=== PATIENT | female | born 1955 | race Caucasian/White ===

== ENCOUNTER 2016-07-15 13:26 | Observation (INO) | payer MEDICARE ==
--- NOTE | 2016-07-15 13:36 | XRAY ---
Indication: Headache. Multiple contiguous axial images obtained through the head without contrast. Comparison: February 19, 2016. Stable age-appropriate global atrophy and mild periventricular degenerative micro-ischemia bilaterally. Previous right occipital infarct has matured. No acute intracranial hemorrhage, hydrocephalus, or mass effect. Bony calvarium intact. Visualized paranasal sinuses and mastoid air cells are clear. 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 CT DI 85.96
[2016-07-15] MEDS ORDERED: Nitrostat 0.4 MG (ED) SL ONE ×2 (14:21→14:47)
[2016-07-15] MEDS ORDERED: BABY ASPIRIN 81 MG CHEW PO ONE (14:21)
--- NOTE | 2016-07-15 14:58 | XRAY ---
Indication: Dyspnea. Comparison: April 24, 2016. Portable chest remains clear again with left-sided AICD and right-sided Port-A-Cath. Heart is borderline enlarged. Vascularity normal. Bony thorax intact again with mild osteopenia, degenerative changes, and right AC widening. Impression: Borderline cardiomegaly. Negative for acute pneumonic process or CHF.
[2016-07-15 15:04] LABS: BASOPHIL % 0.4 % (0.0-0.4); Eosinophil % 1.9 % (0.00-5.0); Mean Cell Volume 79.5 fl (78-100); Mean Platelet Volume 9.3 fl (6-9.5); Monocytes % 5.7 % (0.0-12.0); Platelet Count 233 K/mm3 (150-450); Red Blood Count 4.09 M/mm3 (4.1-5.4); Red Cell Distribution Width 18.2 % (11.5-14.0); White Blood Count 8.1 K/mm3 (4.0-10.5)
[2016-07-15 15:05] LABS: Mean Corpuscular Hemoglobin 23.4 pg (26-32)
[2016-07-15 15:27] LABS: ALBUMIN 3.1 g/dL (3.4-5.0); ALKALINE PHOSPHATASE 108 U/L (46-116); ANION GAP 11.3 MEQ/L (5-15); BILIRUBIN,TOTAL 0.3 mg/dL (0.2-1.0); BLOOD UREA NITROGEN 10 mg/dL (9-20); CHLORIDE 106 mEq/L (98-107); Carbon Dioxide 25.7 mEq/L (21-32); Glucose 85 MG/DL (70-110); Potassium 4.2 mEq/L (3.5-5.1); SGOT/AST 15 U/L (15-37); SODIUM 139 mEq/L (136-145); Total Protein 6.9 gm/dL (6.4-8.2)
[2016-07-15 15:31] LABS: INR 1.03 (0.8-3.0); PROTIME 11.5 SECONDS (9.95-12.35)
[2016-07-15 15:36] LABS: SGPT/ALT 6 U/L (12-78)
--- NOTE | 2016-07-15 16:06 | ERPHSYRPT ---
- History of Present Illness Time Seen by Provider: 07/15/16 14:00 Source: patient Exam Limitations: clinical condition Patient Subjective Stated Complaint: pt brought over from x ray dept for tinling and numbness to right arm during ct scan. 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 HAS CHRONIC HEADACHE FOR 4 DAYS, DENIES BLURRED VISION, SLURRED SPEECH, FOCAL WEAKNESS IN EXTREMITIES, ANTALGIC GAIT. Timing/Duration: today Severity: moderate Character of Deficits: altered sensation Deficits: no difficulties Baseline/Normal Cognition: alert oriented x 3 Current Cognition: alert oriented x 3 Baseline Gait: walks w/o assistance Associated Symptoms: paresthesia (RIGHT ARM) Allergies/Adverse Reactions: codeine [Codeine] Allergy (Mild, Verified 07/15/16 13:59) Nausea and Vomiting Sulfa (Sulfonamide Antibiotics) [Sulfa(Sulfonamide Antibiotics)] Allergy (Mild, Verified 07/15/16 13:59) Nausea and Vomiting adhesive Allergy (Verified 07/15/16 13:59) Home Medications: Omeprazole [Prilosec] 40 mg PO DAILY 11/24/11 [History] Topiramate [Topamax] 50 mg PO BID 01/10/15 [History] Linagliptin [Tradjenta] 5 mg PO DAILY 01/11/15 [History] Carvedilol 3.125 mg [Coreg 3.125 MG] 3.125 mg PO BID 06/08/15 [History] Nitroglycerin 0.4 mg Tablet [Nitrostat 0.4 MG Tablet] 0.4 mg SL UD [History] Atorvastatin Calcium [Lipitor 20MG Tablet] 20 mg PO HS 03/20/16 [History] Clopidogrel Bisulfate 75 mg [PLAVIX 75 MG Tablet] 0.5 tab PO DAILY [History] Dabigatran Etexilate Mesylate [Pradaxa] 150 mg PO BID 03/20/16 [History] Levothyroxine Sodium 100 Mcg [Synthroid 100 Mcg] 600 mcg PO DAILY 03/20/16 [History] Morphine Sulfate [Morphine Sulfate ER] 30 mg PO HS 03/20/16 [History] Ondansetron HCl [Zofran] 4 mg PO Q4HPRN PRN 03/20/16 [History] Solifenacin Succinate [Vesicare] 10 mg PO DAILY 03/20/16 [History] Hx Tetanus, Diphtheria Vaccination/Date Given: Yes Hx Influenza Vaccination/Date Given: Yes Hx Pneumococcal Vaccination/Date Given: Yes Immunizations Up to Date: Yes - Review of Systems Constitutional: No Fever, No Chills Eyes: No Symptoms Ears, Nose, & Throat: No Symptoms Respiratory: No Symptoms, No Cough, No Dyspnea Cardiac: No Symptoms, No Chest Pain, No Edema, No Syncope Abdominal/Gastrointestinal: No Symptoms, No Abdominal Pain, No Nausea, No Vomiting, No Diarrhea Genitourinary Symptoms: No Symptoms, No Dysuria Musculoskeletal: No Symptoms, No Back Pain, No Neck Pain Skin: No Symptoms, No Rash Neurological: No Dizziness, No Focal Weakness, No Sensory Changes Psychological: No Symptoms Endocrine: No Symptoms All Other Systems: Reviewed and Negative - Past Medical History Pertinent Past Medical History: Yes Neurological History: Migraines, Stroke ENT History: No Pertinent History Cardiac History: Angina, Arrhythmia, Congenital Heart Disease, Coronary Artery Disease, Hypertension Respiratory History: No Pertinent History Endocrine Medical History: Diabetes Type II, Thyroid Cancer Musculoskeletal History: No Pertinent History GI Medical History: Hernia, Other History: No Pertinent History Psycho-Social History: No Pertinent History Female Reproductive Disorders: Endometriosis Other Medical History: THYROID CA 5 YEARS AGO; A FIB, CAROTID STENOSIS. States IBS or " part of my colon", Has illeostomy. - Past Surgical History Past Surgical History: Yes Neuro Surgical History: No Pertinent History Cardiac: Cardiac Catheterization, Internal Defibrillator, Pacemaker Respiratory: No Pertinent History Gastrointestinal: Appendectomy, Cholecystectomy, Colon Resection, Hernia Repair , Other Genitourinary: No Pertinent History Musculoskeletal: Orthopedic Surgery Female Surgical History: Hysterectomy Other Surgical History: THYROID REMOVED, 40% and 50% blockages found with last heart cath about 4 years ago. ankle surgery d/t break,ileostomy, CVL port removed and replaced, PICC line placed for CVL surgery September 2015. - Social History Smoking Status: Never smoker Exposure to second hand smoke: No Alcohol Use: None Drug Use: none Patient Lives Alone: No Significant Family History: heart disease, cancer, diabetes - Female History Hx Last Menstrual Period: post Hx Now: No - Nursing Vital Signs Nursing Vital Signs: Initial Vital Signs Temperature 97.7 F Temperature Source Oral Pulse Rate 60 Respiratory Rate 18 Blood Pressure [] 122/60 Pain Intensity 2 - [place] Coma Scale Best Eye Response ([place]): (4) open spontaneously Best Verbal Response ([place]): (5) oriented Best Motor Response ([place]): (6) obeys commands Jay[place]e Total: 15 - Physical Exam General Appearance: no apparent distress, alert Eye Exam: bilateral eye: normal inspection, PERRL, EOMI Ears, Nose, Throat Exam: normal ENT inspection, moist mucous membranes Neck Exam: normal inspection, non-tender, supple Respiratory: normal breath sounds, lungs clear, airway intact, No respiratory distress Cardiovascular: regular rate/rhythm, No edema Gastrointestinal: soft, normal bowel sounds, No tenderness, No distention Back Exam: normal inspection Extremity Exam: normal inspection, No pedal edema Peripheral Pulses: carotid (R): 2+, carotid (L): 2+, femoral (R): 2+, femoral (L ): 2+, dorsalis-pedis (R): 2+, dorsalis-pedis (L): 2+ 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, 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: normal hearing, tongue midline Coordination/Gait: normal finger to nose, normal gait Motor/Sensory: no motor deficit (HYPOESTHESIA RIGHT UPPER EXTREMITY, 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, HIP FLEXION,ANKLE DORSIFLEXION 5/5 BILATERAL) DTR: bicep (R): 2+, bicep (L): 2+, tricep (R): 2+, tricep (L): 2+, knee (R): 2+ , knee (L): 2+, ankle (R): 2+, ankle (L): 2+ Skin Exam: normal color, warm, dry, No rash SpO2 Interpretation: normal SpO2: 99 Oxygen Delivery: Room Air - Course EKG Interpreted by Me: RATE, Sinus Rhythm (VENTRICULAR PACE RHYTHM), Other ( RATE 61) - CT Exams Head CT Interpretation: Discussed w/radiologist (NONACUTE SENILE BRAIN, WITH OLD RIGHT OCCIPITAL LOBE INFARCT) Ordered Tests: Active Orders 24 hr Category Date Time Status Up Ad Fauzia TOLERATED Activity 07/15/16 16:12 Ordered Admission/Status Order ROUTINE Care 07/15/16 16:12 Ordered Code Status Order ROUTINE Care 07/15/16 16:12 Ordered EKG-ER Only STAT Care 07/15/16 14:21 Active IV Insertion STAT Care 07/15/16 14:21 Active Neuro Checks Q4H Care 07/15/16 16:12 Ordered Oxygen-ED Only NASAL CANNULA 2 lpm Care 07/15/16 14:21 Active Vital Signs Q4H Care 07/15/16 16:12 Ordered Regular Diet Diet 07/15/16 Dinner Ordered CHEST 1 VIEW (PORTABLE) Stat Exams 07/15/16 14:21 Completed HEAD WITHOUT CONTRAST [CT] Routine Exams 07/15/16 Completed CBC W DIFF Stat Lab 07/15/16 14:45 Completed CMP Stat Lab 07/15/16 14:45 Completed D-DIMER QUANTITATION Stat Lab 07/15/16 12:47 Completed PROTIME WITH INR Stat Lab 07/15/16 14:45 Completed TROPONIN Q3H Lab 07/15/16 14:45 Completed TROPONIN Q3H Lab 07/15/16 17:30 Ordered TROPONIN Q3H Lab 07/15/16 20:30 Ordered TROPONIN Q3H Lab 07/15/16 23:30 Ordered TROPONIN Q3H Lab 07/16/16 02:30 Ordered EKG DAILY RT 07/15/16 16:12 Ordered Oxygen NASAL CANNULA 2 lpm RT 07/15/16 16:12 Ordered Transfer Order Routine Transfer 07/15/16 16:12 Ordered Medication Summary Discontinued Medications Generic Name Dose Route Start Last Admin Trade Name Freq PRN Reason Stop Dose Admin Aspirin 324 mg 07/15/16 14:21 07/15/16 14:46 Baby Aspirin 81 Mg Chew PO 07/15/16 14:22 Not Given STAT ONE Nitroglycerin 0.4 mg 07/15/16 14:21 07/15/16 14:44 Nitrostat 0.4 Mg (Ed) SL 07/15/16 14:22 0.4 mg STAT ONE Administration Nitroglycerin Confirm 07/15/16 14:47 Nitrostat 0.4 Mg (Ed) Administered 07/15/16 14:48 Dose 0.4 mg SL .STK-MED ONE Lab/Rad Data: Laboratory Result Diagrams 07/15/16 14:45 07/15/16 14:45 Laboratory Results 07/15/16 07/15/16 07/15/16 Range/Units 14:45 14:45 14:45 WBC (4.0-10.5) K/mm3 RBC (4.1-5.4) M/mm3 Hgb (12.0-16.0) gm/dl Hct (35-47) % MCV (78-100) fl MCH (26-32) pg MCHC (32-36) g/dl RDW (11.5-14.0) % Plt Count (150-450) K/mm3 MPV (6-9.5) fl Gran % (36.0-66.0) % Lymphocytes % (24.0-44.0) % Monocytes % (0.0-12.0) % Eosinophils % (0.00-5.0) % Basophils % (0.0-0.4) % Basophils # (0-0.4) INR 1.03 (0.8-3.0) D-Dimer (0.00-0.49) mg/L Sodium 139 (136-145) mEq/L Potassium 4.2 (3.5-5.1) mEq/L Chloride 106 (98-107) mEq/L Carbon Dioxide 25.7 (21-32) mEq/L Anion Gap 11.3 (5-15) MEQ/L BUN 10 (9-20) mg/dL Creatinine 0.95 (0.55-1.30) mg/dl Estimated GFR > 60 ML/MIN Glucose 85 (70-110) MG/DL Calcium 8.4 L (8.5-10.1) mg/dL Total Bilirubin 0.3 (0.2-1.0) mg/dL AST 15 (15-37) U/L ALT 6 L (12-78) U/L Alkaline Phosphatase 108 (46-116) U/L Troponin I < 0.017 (0.000-0.056) ng/ml Serum Total Protein 6.9 (6.4-8.2) gm/dL Albumin 3.1 L (3.4-5.0) g/dL 07/15/16 07/15/16 Range/Units 14:45 12:47 WBC 8.1 (4.0-10.5) K/mm3 RBC 4.09 L (4.1-5.4) M/mm3 Hgb 9.6 L (12.0-16.0) gm/dl Hct 32.5 L (35-47) % MCV 79.5 (78-100) fl MCH 23.4 L (26-32) pg MCHC 29.5 L (32-36) g/dl RDW 18.2 H (11.5-14.0) % Plt Count 233 (150-450) K/mm3 MPV 9.3 (6-9.5) fl Gran % 58.0 (36.0-66.0) % Lymphocytes % 34.0 (24.0-44.0) % Monocytes % 5.7 (0.0-12.0) % Eosinophils % 1.9 (0.00-5.0) % Basophils % 0.4 (0.0-0.4) % Basophils # 0.03 (0-0.4) INR (0.8-3.0) D-Dimer 3.291 H* (0.00-0.49) mg/L Sodium (136-145) mEq/L Potassium (3.5-5.1) mEq/L Chloride (98-107) mEq/L Carbon Dioxide (21-32) mEq/L Anion Gap (5-15) MEQ/L BUN (9-20) mg/dL Creatinine (0.55-1.30) mg/dl Estimated GFR ML/MIN Glucose (70-110) MG/DL Calcium (8.5-10.1) mg/dL Total Bilirubin (0.2-1.0) mg/dL AST (15-37) U/L ALT (12-78) U/L Alkaline Phosphatase (46-116) U/L Troponin I (0.000-0.056) ng/ml Serum Total Protein (6.4-8.2) gm/dL Albumin (3.4-5.0) g/dL - Progress Progress Note: 07/15/16 16:07 PATIENT GIVEN NITROGLYCERIN 0.4MG SL, NO CHANGE IN HYPOESTHESIA. BABY ASPIRIN NOT GIVEN WHILE PATIENT ON PRADEXA Discussed with Dr.: Leal (AT 1600 FOR OBSERVATION) - Departure Time of Disposition: 16:15 Departure Disposition: Observation Clinical Impression: TRANSIENT ISCHEMIC ATTACK Condition: Stable Critical Care Time: No Referrals: CHRIS KAYE NP [Primary Care Provider] -
[2016-07-15] MEDS ORDERED: TYLENOL 325 MG PO PRN (16:12)
[2016-07-15] MEDS: Sodium Chloride 0.9% 1000 ML 1,000 ML IV SCH (17:59)
[2016-07-15] MEDS ORDERED: NovoLOG Insulin SQ PRN (20:02)
[2016-07-15] MEDS: Coreg 3.125 MG PO SCH (21:33)
[2016-07-15] MEDS: PRADAXA 75 MG PO SCH (21:33)
[2016-07-15] MEDS ORDERED: MS CONTIN 30 MG PO SCH (22:00)
--- NOTE | 2016-07-16 08:46 | PCM.HP ---
History of Present Illness - Chief Complaint Chief Complaint: headache, numbness, tingling R hand History of Present Illness: is a 61 year old female who presented to the ER yesterday with a four day history of headache, she also has developed right hand weakness and tingling. She reports there is some problems finding words as well, she feels like she can think of what she wants to say but can't get the words out. She has a history of AICD, atrial fibrillation, she was recently off of her pradaxa for more than a week for a biopsy of right breast lesion that turned out to be benign, she just resumed her pradaxa 3 days ago. - Review of Systems Constitutional: No Fever, No Chills Respiratory: No Cough, No Short Of Breath Cardiac: No Chest Pain, No Edema, No Syncope Abdominal/Gastrointestinal: No Abdominal Pain, No Nausea, No Vomiting, No Diarrhea Skin: No Rash Neurological: Focal Weakness, Headache All Other Systems: Reviewed and Negative Medications & Allergies Home Medications: Home Medication List Omeprazole [Prilosec] 40 mg PO DAILY 11/24/11 [History Confirmed 07/15/16] Linagliptin [Tradjenta] 5 mg PO DAILY 01/11/15 [History Confirmed 07/15/16] Carvedilol 3.125 mg [Coreg 3.125 MG] 3.125 mg PO BID 06/08/15 [History Confirmed 07/15/16] Nitroglycerin 0.4 mg Tablet [Nitrostat 0.4 MG Tablet] 0.4 mg SL UD [History Confirmed 07/15/16] Clopidogrel Bisulfate 75 mg [PLAVIX 75 MG Tablet] 0.5 tab PO DAILY [History Confirmed 07/15/16] Dabigatran Etexilate Mesylate [Pradaxa] 150 mg PO BID 03/20/16 [History Confirmed 07/15/16] Levothyroxine Sodium 100 Mcg [Synthroid 100 Mcg] 600 mcg PO DAILY 03/20/16 [History Confirmed 07/15/16] Morphine Sulfate [Morphine Sulfate ER] 30 mg PO BID 03/20/16 [History Confirmed 07/15/16] Solifenacin Succinate [Vesicare] 10 mg PO DAILY 03/20/16 [History Confirmed ] Atorvastatin Calcium [Lipitor 20MG Tablet] 20 mg PO DAILY 07/15/16 [History Confirmed 07/15/16] Tizanidine HCl [Zanaflex] 4 mg PO UD PRN 07/15/16 [History Confirmed 07/15/16] Allergies/Adverse Reactions: Allergies Allergy/AdvReac Type Severity Reaction Status Date / Time codeine [Codeine] Allergy Mild Nausea and Verified 07/15/16 13:59 Vomiting Sulfa (Sulfonamide Allergy Mild Nausea and Verified 07/15/16 13:59 Antibiotics) Vomiting [Sulfa(Sulfonamide Antibiotics)] adhesive Allergy Verified 07/15/16 13:59 - Past Medical History Past Medical History: Yes Neurological History: Migraines, Stroke ENT History: No Pertinent History Cardiac History: Angina, Arrhythmia, Congenital Heart Disease, Coronary Artery Disease, Hypertension Respiratory History: No Pertinent History Endocrine Medical History: Diabetes Type II, Thyroid Cancer Musculoskelatal History: No Pertinent History GI Medical History: Hernia, Other History: No Pertinent History Pyscho-Social History: No Pertinent History Reproductive Disorders: Endometriosis Comment: THYROID CA 5 YEARS AGO; A FIB, CAROTID STENOSIS. States IBS or " part of my colon", Has illeostomy. - Female History Hx Last Menstrual Period: postmenopausal Are you now?: No - Past Surgical History Past Surgical History: Yes Neuro Surgical History: No Pertinent History Cardiac History: Cardiac Catheterization, Internal Defibrillator, Pacemaker Respiratory Surgery: No Pertinent History GI Surgical History: Appendectomy, Cholecystectomy, Colon Resection, Hernia Repair, Other Genitourinary Surgical Hx: No Pertinent History Musculskeletal Surgical Hx: Orthopedic Surgery Female Surgical History: Hysterectomy Other Surgical History: THYROID REMOVED, 40% and 50% blockages found with last heart cath about 4 years ago. ankle surgery d/t break,ileostomy, CVL port removed and replaced, PICC line placed for CVL surgery September 2015. - Social History Smoking Status: Never smoker Exposure to second hand smoke: No Alcohol: None Drug Use: none Significant Family History: heart disease, cancer, diabetes - Physical Exam Vital Signs: Vital Signs - 24 hr Temp Pulse Resp BP Pulse Ox 07/16/16 07:40 97.9 F 60 18 120/76 98 07/16/16 04:00 97.4 F 80 19 119/70 91 L 07/16/16 00:00 97.9 F 60 17 110/63 96 07/15/16 20:29 96 07/15/16 20:00 97.9 F 60 17 119/65 96 07/15/16 17:18 98.4 F 61 18 136/74 98 07/15/16 16:53 98.4 F 61 16 136/74 97 07/15/16 16:35 61 16 97 07/15/16 16:19 99 07/15/16 15:13 60 18 122/60 99 07/15/16 13:48 97.7 F 60 16 146/74 99 Oxygen-Last 24 hours O2 Percentage 2 Liters = 28% General Appearance: no apparent distress, alert Neurologic Exam: alert, oriented x 3, cooperative, normal mood/affect, nml cerebellar function, nml station & gait, sensation nml, motor deficits (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 minimal drift to right arm. BLE 5/5), sensory deficit, No facial droop Eye Exam: PERRL/EOMI, eyes nml inspection Respiratory Exam: normal breath sounds, lungs clear, No respiratory distress Cardiovascular Exam: regular rate/rhythm, normal heart sounds, normal peripheral pulses Gastrointestinal/Abdomen Exam: soft, normal bowel sounds, No tenderness, No mass Extremity Exam: normal inspection, normal range of motion, pelvis stable Skin Exam: normal color, warm, dry, No rash Results - Labs Lab/Micro Results: Accuchecks Date 07/15/16 Time 22:05 Accucheck Value: 89 Accucheck Value: 127 Lab Results-Last 24 Hours 07/15/16 07/15/16 07/16/16 Range/Units 17:43 20:39 02:30 Troponin I < 0.017 < 0.017 < 0.017 (0.000-0.056) ng/ml Accuchecks Date 07/15/16 Time 22:05 Accucheck Value: 89 Accucheck Value: 127 - Radiology Impressions Radiology Exams & Impressions: Radiology Procedures Category Date Time Status CAROTID BILATERAL [US] Urgent Exams 07/16/16 08:38 Ordered ECHO W/2D AND DOPPLER [US] Routine Exams 07/16/16 08:37 Ordered - Other Procedures and Tests Respiratory Therapy 07/15/16 16:12 Oxygen NASAL CANNULA 2 lpm Assessment/Plan (1) CVA (cerebral vascular accident) Current Visit: Yes Status: Acute Assessment & Plan: patient with pacemaker unable to have MRI but clinically consistent with CVA with objective weakness and sensory deficits in right hand and expressive aphasia in light of recent holding of anticoagulation for biopsy. will check echo and carotid dopplers to f/u acute thrombus. Speech and OT consulted Code(s): I63.9 - CEREBRAL INFARCTION, UNSPECIFIED (2) Headache Current Visit: Yes Status: Acute Assessment & Plan: likely related to CVA, will treat Code(s): R51 - HEADACHE (3) Atrial fibrillation Current Visit: Yes Status: Acute Assessment & Plan: stable at this time, paced rhythm on EKG with apparent underlying a fib. will continue pradaxa at this time. Code(s): I48.91 - UNSPECIFIED ATRIAL FIBRILLATION
[2016-07-16] MEDS ORDERED: SYNTHROID 100 MCG PO SCH (10:00)
[2016-07-16] MEDS: PRADAXA 75 MG PO SCH ×2 (10:23→23:16)
[2016-07-16] MEDS: ECOTRIN 81 MG PO SCH (10:23)
[2016-07-16] MEDS: Coreg 3.125 MG PO SCH ×2 (10:24→23:17)
--- NOTE | 2016-07-16 10:27 | XRAY ---
Indication: CVA. Two-dimensional sonogram and color Doppler imaging of the carotid arteries of the neck performed. Comparison: February 22, 2016. Examination of the right carotid circulation again negative for focal plaquing, critical stenosis, or obstruction. PSV of the CCA is 61 cm/s. PSV of the ICA is 68 cm/s. ICA/CCA ratio is 1.1. Normal antegrade vertebral artery flow. Examination of the left carotid circulation also remains widely patent. PSV of the CCA is 61 cm/s. PSV of the ICA is 61 cm/s. ICA/CCA ratio is 1.0. Normal antegrade vertebral artery flow. Impression: Stable bilaterally patent carotid arteries of the neck. Velocity measurements and ratios again negative for hemodynamically significant flow-limiting stenosis.
[2016-07-16] MEDS: SUBLIMAZE 100 MCG/2 ML IV PRN ×3 (10:30→22:15)
[2016-07-16] MEDS: Protonix 40MG Tablet PO SCH (10:30)
[2016-07-16] MEDS: Zofran 4 MG/2 ML VIAL IV PRN ×3 (10:30→22:37)
[2016-07-16] MEDS: Sodium Chloride 0.9% 1000 ML 1,000 ML IV SCH (12:48)
--- NOTE | 2016-07-16 14:43 | ECHO ---
DATE OF PROCEDURE: 07/16/2016 CLINICAL INFORMATION: CVA and atrial fibrillation. The M-mode 2D, and Doppler echocardiogram including color flow Doppler shows the left ventricular systolic function is at least mildly decreased with an ejection fraction between 45 and 50%. The aortic valve opens well. There is no apical thrombus present. The left ventricle is normal in size with a dimension of 5.4 cm. The septal wall thickness is normal at 0.9 cm. The left ventricular posterior wall thickness is borderline thickened at 1.1 cm. There is mitral valve leaflet thickening. There is mild tricuspid regurgitation. There is mild to moderate pulmonary hypertension with left ventricular systolic pressure of 41 mm of [place]. There is no pericardial effusion present. The right ventricle is not well visualized. Right atrium is normal in size. The interatrial septum is intact. The pulmonic valve is not well visualized. The aortic root is normal with a dimension of 3.1 cm. There is no pericardial effusion present. IMPRESSION: 1) MILD TRICUSPID REGURGITATION WITH MILD TO MODERATE PULMONARY HYPERTENSION. 2) MILD MITRAL REGURGITATION. 3) MILD DECREASE IN LEFT VENTRICULAR SYSTOLIC FUNCTION. 4) BORDERLINE LEFT VENTRICULAR HYPERTROPHY. 5) NO APICAL THROMBUS IS PRESENT.
[2016-07-16] MEDS: ZOCOR 20MG PO SCH (23:17)
[2016-07-17] MEDS: SUBLIMAZE 100 MCG/2 ML IV PRN ×2 (02:29→06:41)
[2016-07-17 05:54] LABS: BASOPHIL % 0.4 % (0.0-0.4); Eosinophil % 2.7 % (0.00-5.0); Granulocytes % 55.9 % (36.0-66.0); Lymphocytes % 35.3 % (24.0-44.0); Mean Cell Volume 79.1 fl (78-100); Mean Platelet Volume 9.3 fl (6-9.5); Monocytes % 5.7 % (0.0-12.0); Platelet Count 238 K/mm3 (150-450); Red Blood Count 4.06 M/mm3 (4.1-5.4); Red Cell Distribution Width 18.4 % (11.5-14.0); White Blood Count 6.8 K/mm3 (4.0-10.5)
[2016-07-17 05:58] LABS: Mean Corpuscular Hemoglobin 23.8 pg (26-32)
[2016-07-17 06:04] LABS: ALBUMIN 2.8 g/dL (3.4-5.0); ALKALINE PHOSPHATASE 94 U/L (46-116); ANION GAP 12.5 MEQ/L (5-15); BILIRUBIN,TOTAL 0.3 mg/dL (0.2-1.0); BLOOD UREA NITROGEN 11 mg/dL (9-20); CHLORIDE 107 mEq/L (98-107); Carbon Dioxide 26.6 mEq/L (21-32); Cholesterol 136 mg/dL (100-200); Glucose 90 MG/DL (70-110); LDL, DIRECT 74 mg/dL (5-99); SGOT/AST 13 U/L (15-37); SODIUM 142 mEq/L (136-145); TRIGLYCERIDE 92 mg/dL (30-200); Total Protein 6.3 gm/dL (6.4-8.2)
[2016-07-17 06:33] LABS: SGPT/ALT < 6 U/L (12-78)
[2016-07-17] MEDS: Zofran 4 MG/2 ML VIAL IV PRN (06:42)
--- NOTE | 2016-07-17 08:05 | PCM.NOTE ---
Date and Time: 07/17/16 08 Subjective Assessment: patient seems to have more fluent speech today, still has some numbness in the right hand but seems improved today. c/o severe headache persisting. Objective Exam General Appearance: no apparent distress, alert Respiratory Exam: normal breath sounds, lungs clear, No respiratory distress Cardiovascular Exam: regular rate/rhythm, normal heart sounds Gastrointestinal/Abdomen Exam: soft, No tenderness, No mass Extremity Exam: normal inspection, normal range of motion OBJECTIVE DATA Vital Signs: Vital Signs - 24 hr Temp Pulse Resp BP BP Pulse Ox 07/17/16 07:47 97.6 F 62 18 112/64 99 07/17/16 07:34 62 95 07/17/16 04:36 97.9 F 74 18 97/58 97 07/17/16 02:00 100/60 07/16/16 23:56 97.9 F 60 18 103/57 96 07/16/16 20:19 94 L 07/16/16 20:00 97.8 F 66 16 96/52 94 L 07/16/16 16:00 60 18 117/69 98 07/16/16 11:19 97.6 F 62 18 125/73 97 Pain Assessment - Last Documented Pain Intensity 9 Pain Scale Used 0-10 Pain Scale Intake and Output: Intake & Output 07/14/16 07/15/16 07/16/16 07/17/16 11:59 11:59 11:59 11:59 Intake Total 1530 2595 Balance 1530 2595 Weight 90.083 kg Lab Results: Accuchecks Accucheck Value: 97 Accucheck Value: 86 Accucheck Value: 96 Lab Results-Last 24 Hours 07/16/16 07/16/16 07/17/16 Range/Units 02:55 04:00 05:33 WBC 6.8 (4.0-10.5) K/mm3 RBC 4.06 L (4.1-5.4) M/mm3 Hgb 9.7 L (12.0-16.0) gm/dl Hct 32.1 L (35-47) % MCV 79.1 (78-100) fl MCH 23.8 L (26-32) pg MCHC 30.2 L (32-36) g/dl RDW 18.4 H (11.5-14.0) % Plt Count 238 (150-450) K/mm3 MPV 9.3 (6-9.5) fl Gran % 55.9 (36.0-66.0) % Lymphocytes % 35.3 (24.0-44.0) % Monocytes % 5.7 (0.0-12.0) % Eosinophils % 2.7 (0.00-5.0) % Basophils % 0.4 (0.0-0.4) % Basophils # 0.03 (0-0.4) Sodium (136-145) mEq/L Potassium (3.5-5.1) mEq/L Chloride (98-107) mEq/L Carbon Dioxide (21-32) mEq/L Anion Gap (5-15) MEQ/L BUN (9-20) mg/dL Creatinine (0.55-1.30) mg/dl Estimated GFR ML/MIN Glucose (70-110) MG/DL Hemoglobin A1c 5.2 (4.5-6.2) Calcium (8.5-10.1) mg/dL Total Bilirubin (0.2-1.0) mg/dL AST (15-37) U/L ALT (12-78) U/L Alkaline Phosphatase (46-116) U/L Serum Total Protein (6.4-8.2) gm/dL Albumin (3.4-5.0) g/dL Triglycerides (30-200) mg/dL Cholesterol (100-200) mg/dL LDL Cholesterol (5-99) mg/dL HDL Cholesterol (35-60) mg/dL Heart Disease Risk Ratio Free T4 0.94 (0.76-1.46) ng/dl TSH 3rd Generation 25.627 H (0.358-3.740) mIU/L 07/17/16 Range/Units 05:33 WBC (4.0-10.5) K/mm3 RBC (4.1-5.4) M/mm3 Hgb (12.0-16.0) gm/dl Hct (35-47) % MCV (78-100) fl MCH (26-32) pg MCHC (32-36) g/dl RDW (11.5-14.0) % Plt Count (150-450) K/mm3 MPV (6-9.5) fl Gran % (36.0-66.0) % Lymphocytes % (24.0-44.0) % Monocytes % (0.0-12.0) % Eosinophils % (0.00-5.0) % Basophils % (0.0-0.4) % Basophils # (0-0.4) Sodium 142 (136-145) mEq/L Potassium 4.0 (3.5-5.1) mEq/L Chloride 107 (98-107) mEq/L Carbon Dioxide 26.6 (21-32) mEq/L Anion Gap 12.5 (5-15) MEQ/L BUN 11 (9-20) mg/dL Creatinine 0.96 (0.55-1.30) mg/dl Estimated GFR > 60 ML/MIN Glucose 90 (70-110) MG/DL Hemoglobin A1c (4.5-6.2) Calcium 8.3 L (8.5-10.1) mg/dL Total Bilirubin 0.3 (0.2-1.0) mg/dL AST 13 L (15-37) U/L ALT < 6 L (12-78) U/L Alkaline Phosphatase 94 (46-116) U/L Serum Total Protein 6.3 L (6.4-8.2) gm/dL Albumin 2.8 L (3.4-5.0) g/dL Triglycerides 92 (30-200) mg/dL Cholesterol 136 (100-200) mg/dL LDL Cholesterol 74 (5-99) mg/dL HDL Cholesterol 58 (35-60) mg/dL Heart Disease Risk Ratio 2.3 Free T4 (0.76-1.46) ng/dl TSH 3rd Generation (0.358-3.740) mIU/L Radiology Exams: Radiology Procedures Category Date Time Status CAROTID BILATERAL [US] Urgent Exams 07/16/16 08:38 Completed ECHO W/2D AND DOPPLER [US] Routine Exams 07/16/16 08:37 Draft Assessment/Plan (1) CVA (cerebral vascular accident) Current Visit: Yes Status: Acute Assessment & Plan: improvement in symptoms, added aspirin yesterday. Code(s): I63.9 - CEREBRAL INFARCTION, UNSPECIFIED (2) Headache Current Visit: Yes Status: Acute Assessment & Plan: change to morphine, has significant nausea. will try phenergan today. if can get headache under good control could likely discharge soon with outpatient OT/ ST Code(s): R51 - HEADACHE (3) Atrial fibrillation Current Visit: Yes Status: Acute Assessment & Plan: on pradaxa, no thrombus seen on echo Code(s): I48.91 - UNSPECIFIED ATRIAL FIBRILLATION
[2016-07-17] MEDS: Sodium Chloride 0.9% 1000 ML 1,000 ML IV SCH (08:54)
[2016-07-17] MEDS ORDERED: NON-FORMULARY ITEM (Omeprazole [Prilosec] 40 MG) PO SCH (10:00)
[2016-07-17] MEDS ORDERED: NON-FORMULARY ITEM (Atorvastatin Calcium 20 MG) PO SCH (10:00)
[2016-07-17] MEDS: SYNTHROID 100 MCG PO SCH (10:15)
[2016-07-17] MEDS: Coreg 3.125 MG PO SCH ×2 (10:16→21:52)
[2016-07-17] MEDS: Protonix 40MG Tablet PO SCH (10:16)
[2016-07-17] MEDS: ECOTRIN 81 MG PO SCH (10:16)
[2016-07-17] MEDS: PRADAXA 75 MG PO SCH ×2 (10:16→21:52)
[2016-07-17] MEDS: Phenergan 25 MG INJ IV PRN ×2 (10:20→18:38)
[2016-07-17] MEDS: MORPHINE SULFATE 10 MG/ML IV PRN ×2 (10:20→18:35)
[2016-07-17] MEDS: ZOCOR 20MG PO SCH (21:52)
[2016-07-18] MEDS: MORPHINE SULFATE 10 MG/ML IV PRN ×2 (00:53→06:01)
[2016-07-18] MEDS: Phenergan 25 MG INJ IV PRN (00:53)
[2016-07-18] MEDS: Sodium Chloride 0.9% 1000 ML 1,000 ML IV SCH (04:57)
--- NOTE | 2016-07-18 07:31 | PCM.DS ---
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 on pradaxa for a fib but had been off for recent procedure. symptoms were mild and have improved during stay, patient is able to function and safe to return to home. - Vitals & Intake/Output Vital Signs: Vital Signs Temperature 97.9 F 07/18/16 07:25 Pulse Rate 61 07/18/16 07:25 Respiratory Rate 17 07/18/16 07:25 Blood Pressure 113/65 07/18/16 07:25 O2 Sat by Pulse Oximetry 97 07/18/16 07:25 Oxygen-Last Documented O2 Percentage 2 Liters = 28% Intake & Output: Intake & Output 07/15/16 07/16/16 07/17/16 07/18/16 11:59 11:59 11:59 11:59 Intake Total 1530 2975 3960 Balance 1530 2975 3960 Weight 90.083 kg - Lab Result Diagrams: 07/17/16 05:33 07/17/16 05:33 Lab Results-Last 24 Hrs: Accuchecks Date 07/17/16 Time 21:00 Accucheck Value: 129 Accucheck Value: 92 Accucheck Value: 93 Accucheck Value: 93 Micro Results-Entire Visit: Accuchecks Date 07/17/16 Time 21:00 Accucheck Value: 129 Accucheck Value: 92 Accucheck Value: 93 Accucheck Value: 93 - Radiology Exams Ordered Rad Exams-Entire Visit: Radiology Procedures Category Date Time Status CAROTID BILATERAL [US] Urgent Exams 07/16/16 08:38 Completed ECHO W/2D AND DOPPLER [US] Routine Exams 07/16/16 08:37 Draft - Procedures and Test Procedures and Tests throughout Hospitalization: Therapy Orders & Screens 07/15/16 16:12 Oxygen NASAL CANNULA 2 lpm Comment: 07/15/16 22:43 EKG DAILY Comment: 07/16/16 08:38 Speech Therapy Eval & Treat [ Evsimona & Tessa ( Order)] .as ordered Comment: Physician Instructions: Reason For Exam: Evaluate: Yes Treat: Yes Reason for Eval: CVA, mild expressive aphasia Diagnosis: headache, numbness, tingling R hand 07/16/16 08:39 PT Eval & Treat ( Order) ROUTINE Evaluate: Yes Treat: Yes Reason for Eval:: needs OT for right hand weakness, numbness Diagnosis: headache, numbness, tingling R hand Discharge Exam General Appearance: no apparent distress, alert Neurologic Exam: other (strength right hand 3/5, left 4/5. speech is fluent, CN II-XII intact) Respiratory Exam: normal breath sounds, lungs clear, No respiratory distress Cardiovascular Exam: regular rate/rhythm, normal heart sounds Gastrointestinal/Abdomen Exam: soft, No tenderness, No mass Extremity Exam: normal inspection, normal range of motion Final Diagnosis/Problem List - Final Discharge Diagnosis/Problem (1) CVA (cerebral vascular accident) Current Visit: Yes Status: Acute (2) Headache Current Visit: Yes Status: Acute (3) Atrial fibrillation Current Visit: Yes Status: Acute - Discharge Disposition: Home, Self-Care Condition: Stable Prescriptions: Continue Omeprazole [Prilosec] 40 mg PO DAILY Linagliptin [Tradjenta] 5 mg PO DAILY Carvedilol 3.125 mg [Coreg 3.125 MG] 3.125 mg PO BID Nitroglycerin 0.4 mg Tablet [Nitrostat 0.4 MG Tablet] 0.4 mg SL UD Dabigatran Etexilate Mesylate [Pradaxa] 150 mg PO BID Clopidogrel Bisulfate 75 mg [PLAVIX 75 MG Tablet] 0.5 tab PO DAILY Levothyroxine Sodium 100 Mcg [Synthroid 100 Mcg] 600 mcg PO DAILY Solifenacin Succinate [Vesicare] 10 mg PO DAILY Morphine Sulfate [Morphine Sulfate ER] 30 mg PO BID Atorvastatin Calcium [Lipitor 20MG Tablet] 20 mg PO DAILY Tizanidine HCl [Zanaflex] 4 mg PO UD PRN PRN Reason: crampng Follow up with: CHRIS KAYE NP [Primary Care Provider] - Forms: Patient Portal Information
[2016-07-18] MEDS: PRADAXA 75 MG PO SCH (07:55)
[2016-07-18] MEDS: ECOTRIN 81 MG PO SCH (07:55)
[2016-07-18] MEDS: Protonix 40MG Tablet PO SCH (07:55)
[2016-07-18] MEDS: SYNTHROID 100 MCG PO SCH (07:55)
[2016-07-18] MEDS: Coreg 3.125 MG PO SCH (07:55)
[2016-07-18 08:09] VITALS: BP 113/65; PULSE 61; O2SAT 97
--- NOTE | 2016-07-22 14:19 | CONS ---
CONSULT DATE: 07/22/2016 This patient was seen for Dr. Xavi Nowak who is workers compensation consultant for our group today. HISTORY: A 61 year-old female who came in with some nausea, vomiting since yesterday. She had permanent ileostomy per Dr. Bayron Wilkinson in [place] from a laparotomy five to ten months ago. She reports said this is a permanent ileostomy. She had prior subtotal colectomy in the past. Otherwise she had decreased ostomy output yesterday, passing some gas and liquid stool out the ostomy today. She was admitted. They did some films that showed gas filled bowel loops and air fluid levels. The radiologist questioned obstruction. PAST MEDICAL HISTORY: There is a questionable history of Crohn's in the past. She had blood tests although she has not had any bowel resected yet she said is confirmed as Crohn's. She has heart disease, rhythm problems, and arrhythmia. She had transient ischemic attack in the past. Diabetes mellitus type 2, thyroid cancer in the past. Atrial fibrillation in the past. PAST SURGICAL HISTORY: Cardiac cath. Defibrillator/pacemaker placed. Appendectomy and cholecystectomy. She had subtotal colectomy in the past. Hernia repair in the past. Orthopedic surgery, hysterectomy, thyroid surgery. She had ankle fracture in the past. She had port placed in the past. Again, Dr. Bayron Wilkinson of [place] did her surgery in the past nine or ten months what she said is a permanent ileostomy. MEDICATIONS: Prilosec, Tradjenta, Coreg, Nitrostat PRN, Plavix and Pradaxa, Synthroid, morphine sulfate, VESIcare, Lipitor, Xanax. ALLERGIES: CODEINE, SULFA. FAMILY HISTORY: Heart disease, cancer, diabetes. SOCIAL HISTORY: No smoking or alcohol abuse. REVIEW OF SYSTEMS: Ten systems reviewed per admission assessment pertinent for as noted above, multiple medical problems. She also had migraines and history of transient ischemic attack, mini-stroke in the past. Other systems negative or noncontributory as noted above per preadmission assessment. PHYSICAL EXAMINATION: She is afebrile 97.9F, pulse 60, blood pressure 120/76 earlier. Paper is on the chart. GENERAL: A chronically ill female. HEENT: Sclera nonicteric. NECK: No JVD. CHEST: Equal excursion, nonlabored breathing. CVS: Regular rate. ABDOMEN: Very soft, obese. No rebound. No guarding. No peritoneal signs. She has got ileostomy right upper quadrant. It should be noted there is gas in the bag and some liquidy stool which is new from decreased output yesterday, according to the patient. EXTREMITIES: No significant edema. NEURO: She is alert and seems to be oriented, answering questions appropriately. She is wearing glasses. LAB DATA AND TESTS: Liver function tests are okay. Amylase 24 and lipase 131. White blood cell count after vomiting was 13,000, hemoglobin 10.8, PLT 293,000. IMPRESSION: History of nausea and vomiting. It could be anything from partial obstruction given a complicated surgery in the past as well as surgical history most recently by Dr. Wilkinson in [place] as well as other differential could include ileus, gastroenteritis or viral syndrome. Either way her abdomen is quite soft. No rebound. No peritoneal signs. She has got gas and some liquidy coming through her ileostomy at this point. Therefore I do not feel she needs any emergent surgical intervention. I do not feel she is completely obstructed at this point. I do feel she will benefit from bowel rest, IV hydration, NG decompression, had problems placing the NG in the emergency room. Will consult radiologist see if he can place at this facility under sedation. Either way no emergent surgery is necessary. Continue bowel rest, NG decompression, IV hydration. She understands she is at moderate risk given her multiple surgeries in the past, the potential for short bowel syndrome particularly if she has any true history of Crohn's disease. She is a higher risk patient but at this time does not need surgery. Continue medical conservative management, bowel rest, NG decompression, IV hydration. Again this patient was seen for Dr. Xavi Nowak who was workers compensation consultant for our group today. I will follow with you.
== END 2016-07-18 10:40 | disposition home health service (06) ==
LOC: EDSTATUS 13:26 → ED 13:26 → MED SURG 16:46
PROVIDERS: ADMIT Family Medicine; ATTEND Family Medicine
DX: I63.9 Cerebral infarction, unspecified (principal); R51 Headache; I48.91 Unspecified atrial fibrillation; Z79.01 Long term (current) use of anticoagulants; Z79.899 Other long term (current) drug therapy; I51.9 Heart disease, unspecified; I25.10 Atherosclerotic heart disease of native coronary artery without angina pectoris; I10 Essential (primary) hypertension; E11.9 Type 2 diabetes mellitus without complications; Z85.850 Personal history of malignant neoplasm of thyroid; N80.9 Endometriosis, unspecified; Z95.810 Presence of automatic (implantable) cardiac defibrillator
CPT/HCPCS: 36000; 36415; 70450; 71010; 80053; 80061; 82962; 83036; 83721; 84439; 84443; 84484; 85025; 85379; 85610; 93005; 93268; 93306; 93880; 94760; 99285; G0378; J1642; J2270; J2405; J2550; J3010

== ENCOUNTER 2016-07-22 09:37 | Inpatient (IN) | payer MEDICARE ==
[2016-07-22] MEDS ORDERED: Reglan 10 MG/2 ML IV ONE (10:00)
[2016-07-22] MEDS ORDERED: Sodium Chloride 0.9% 1000 ML 1,000 ML IV SCH (10:00)
[2016-07-22] MEDS ORDERED: Zofran 4 MG/2 ML VIAL IV ONE (10:00)
--- NOTE | 2016-07-22 10:06 | ERPHSYRPT ---
- History of Present Illness Time Seen by Provider: 07/22/16 09:39 Historian: patient Exam Limitations: no limitations Patient Subjective Stated Complaint: PT REPORTS N/V BEGINNING YESTERDAY-STATES SHE HASN'T KEPT ANYTHING DOWN ALL NIGHT-ABD PAIN BEGAN BEFORE THE VOMITING- DENIES FEVER Triage Nursing Assessment: PT A & O X 3-RESP EASY ET NONLABORED-ABD NONTENDER TO PALP-PT AMBULATORTY TO ED ROOM WITHOUT DIFFICLUTLY Physician History: abdominal pain with N&V x 12 hours; no blood; has ileostomy; yellow liquid; retruned from [place] to [employer] 2 weeks ago; no fever; some symptoms; pain around colostomy; no trauma; no one else sick Timing/Duration: today (worse), yesterday (onset; ), gradual onset Activities at Onset: none Quality: cramping, sharpness Abdominal Pain Onset Location: RLQ Pain Radiation: no radiation Severity of Pain-Max: severe Severity of Pain-Current: moderate Modifying Factors: Improves With: nothing Associated Symptoms: loss of appetite, nausea, vomiting Previous symptoms: no prior history Allergies/Adverse Reactions: codeine [Codeine] Allergy (Mild, Verified 07/22/16 10:06) Nausea and Vomiting Sulfa (Sulfonamide Antibiotics) [Sulfa(Sulfonamide Antibiotics)] Allergy (Mild, Verified 07/22/16 10:06) Nausea and Vomiting adhesive Allergy (Verified 07/22/16 10:06) Home Medications: Omeprazole [Prilosec] 40 mg PO DAILY 11/24/11 [History] Linagliptin [Tradjenta] 5 mg PO DAILY 01/11/15 [History] Carvedilol 3.125 mg [Coreg 3.125 MG] 3.125 mg PO BID 06/08/15 [History] Nitroglycerin 0.4 mg Tablet [Nitrostat 0.4 MG Tablet] 0.4 mg SL UD [History] Clopidogrel Bisulfate 75 mg [PLAVIX 75 MG Tablet] 0.5 tab PO DAILY [History] Dabigatran Etexilate Mesylate [Pradaxa] 150 mg PO BID 03/20/16 [History] Levothyroxine Sodium 100 Mcg [Synthroid 100 Mcg] 600 mcg PO DAILY 03/20/16 [History] Morphine Sulfate [Morphine Sulfate ER] 30 mg PO BID 03/20/16 [History] Solifenacin Succinate [Vesicare] 10 mg PO DAILY 03/20/16 [History] Atorvastatin Calcium [Lipitor 20MG Tablet] 20 mg PO DAILY 07/15/16 [History] Tizanidine HCl [Zanaflex] 4 mg PO UD PRN 07/15/16 [History] Hx Tetanus, Diphtheria Vaccination/Date Given: Yes Hx Influenza Vaccination/Date Given: Yes Hx Pneumococcal Vaccination/Date Given: Yes Immunizations Up to Date: Yes - Review of Systems Constitutional: No Symptoms Eyes: No Symptoms Ears, Nose, & Throat: No Symptoms Respiratory: No Cough, No Dyspnea, No Wheezing Cardiac: No Chest Pain, No Palpitations, No Orthopnea Abdominal/Gastrointestinal: Abdominal Pain, Nausea, Vomiting, Other (chronic liquid stools with ileostomy), No Diarrhea, No Constipation Genitourinary Symptoms: Frequency, No Dysuria, No Hematuria, No Incontinence, No Flank Pain, No Vaginal Bleeding Musculoskeletal: Back Pain, No Neck Pain, No Fall, No Injury Skin: No Symptoms Neurological: Other (sp TIA memory changes), No Dizziness, No Focal Weakness, No Headache Psychological: No Symptoms Endocrine: No Symptoms Hematologic/Lymphatic: No Symptoms Immunological/Allergic: No Symptoms - Past Medical History Pertinent Past Medical History: Yes Neurological History: Migraines, Stroke ENT History: No Pertinent History Cardiac History: Angina, Arrhythmia, Congenital Heart Disease, Coronary Artery Disease, Hypertension Respiratory History: No Pertinent History Endocrine Medical History: Diabetes Type II, Thyroid Cancer Musculoskeletal History: No Pertinent History GI Medical History: Hernia, Other History: No Pertinent History Psycho-Social History: No Pertinent History Female Reproductive Disorders: Endometriosis Other Medical History: THYROID CA 5 YEARS AGO; A FIB, CAROTID STENOSIS. States IBS or " part of my colon", Has illeostomy. - Past Surgical History Past Surgical History: Yes Neuro Surgical History: No Pertinent History Cardiac: Cardiac Catheterization, Internal Defibrillator, Pacemaker Respiratory: No Pertinent History Gastrointestinal: Appendectomy, Cholecystectomy, Colon Resection, Hernia Repair , Other Genitourinary: No Pertinent History Musculoskeletal: Orthopedic Surgery Female Surgical History: Hysterectomy Other Surgical History: THYROID REMOVED, 40% and 50% blockages found with last heart cath about 4 years ago. ankle surgery d/t break,ileostomy, CVL port removed and replaced, PICC line placed for CVL surgery September 2015. - Social History Smoking Status: Never smoker Exposure to second hand smoke: No Alcohol Use: None Drug Use: none Patient Lives Alone: No Significant Family History: heart disease, cancer, diabetes - Female History Hx Now: No - Nursing Vital Signs Nursing Vital Signs: Initial Vital Signs Temperature 98.9 F Temperature Source Oral Pulse Rate 70 Respiratory Rate 20 Blood Pressure [] 135/56 Pain Intensity 10 - Physical Exam General Appearance: moderate distress, alert, obese Eye Exam: PERRL/EOMI, eyes nml inspection, No photophobia Ears, Nose, Throat Exam: normal ENT inspection, TMs normal, pharynx normal, moist mucous membranes Neck Exam: normal inspection, non-tender, supple, full range of motion, No mass , No JVD Respiratory Exam: normal breath sounds, lungs clear, airway intact, No chest tenderness, No respiratory distress Cardiovascular Exam: regular rate/rhythm, normal heart sounds, normal peripheral pulses, capillary refill 2-3 sec, No murmur Gastrointestinal/Abdomen Exam: soft, normal bowel sounds, tenderness (RLQ around ileostomy; functioning ok' ), No distention, No guarding, No rebound, No organomegaly Pelvic Exam: deferred Rectal Exam: deferred Back Exam: normal inspection, normal range of motion, No CVA tenderness Extremity Exam: normal inspection, normal range of motion, No melissa's sign, No pedal edema Neurologic Exam: alert, oriented x 3, cooperative, epoxy specialist II-XII nml as tested, normal mood/affect, nml station & gait, sensation nml Skin Exam: normal color, warm, dry, No rash, No petechiae SpO2 Interpretation: normal SpO2: 97 Oxygen Delivery: Room Air - Course Nursing assessment & vital signs reviewed: Yes - Radiology Exams Abdomen X-ray Interpretation: Reviewed by , Teleradiologist Report (new SBO), Other ( multiple air fluid levels with no free air; suspect SBO) Chest X-ray Interpretation: Reviewed by , Teleradiologist Report, Infiltrates ( right base) Ordered Tests: Active Orders 24 hr Category Date Time Status Gastric Tube Insertion STAT Care 07/22/16 11:05 Active IV Insertion STAT Care 07/22/16 10:00 Active NPO (ED) STAT Care 07/22/16 10:00 Active Re-Check Vital Signs STAT Care 07/22/16 10:00 Active OBSTR/ACUTE ABDOMEN SERIES Stat Exams 07/22/16 10:01 Completed AMYLASE Stat Lab 07/22/16 10:00 Completed CBC W DIFF Stat Lab 07/22/16 10:00 Completed CMP Stat Lab 07/22/16 10:00 Completed LIPASE Stat Lab 07/22/16 10:00 Completed Lactic Acid Urgent Lab 07/22/16 10:10 Completed Manual Differential NC Stat Lab 07/22/16 10:00 Completed Occult Blood,Stool Other Stat Lab 07/22/16 10:40 Completed UA W/ MICROSCOPIC Stat Lab 07/22/16 10:40 Completed Transfer Order Routine Transfer 07/22/16 11:36 Ordered Medication Summary Generic Name Dose Route Start Last Admin Trade Name Freq PRN Reason Stop Dose Admin Sodium Chloride 1,000 mls @ 100 mls/hr 07/22/16 10:00 07/22/16 10:30 Sodium Chloride 0.9% 1000 Ml IV 08/21/16 09:59 100 mls/hr .Q10H JUSTIN Administration Discontinued Medications Generic Name Dose Route Start Last Admin Trade Name Freq PRN Reason Stop Dose Admin Hydromorphone HCl 1 mg 07/22/16 11:06 07/22/16 11:21 Hydromorphone 1 Mg/Ml Ampule IV 07/22/16 11:07 1 mg STAT ONE Administration Hydromorphone HCl Confirm 07/22/16 11:19 Hydromorphone 1 Mg/Ml Ampule Administered 07/22/16 11:20 Dose 1 mg .ROUTE .STK-MED ONE Sodium Chloride Confirm 07/22/16 10:25 Sodium Chloride 0.9% 1000 Ml Administered 07/22/16 10:26 Dose 1,000 mls @ ud .ROUTE .STK-MED ONE Sodium Chloride 500 mls @ 999 mls/hr 07/22/16 11:07 07/22/16 11:21 Sodium Chloride 0.9% 1000 Ml IV 07/22/16 11:37 999 mls/hr .Q31M STA Administration Metoclopramide HCl 10 mg 07/22/16 10:00 07/22/16 10:30 Reglan 10 Mg/2 Ml IV 07/22/16 10:01 10 mg STAT ONE Administration Metoclopramide HCl Confirm 07/22/16 10:25 Reglan 10 Mg/2 Ml Administered 07/22/16 10:26 Dose 10 mg .ROUTE .STK-[facility] ONE Ondansetron HCl 4 mg 07/22/16 10:00 07/22/16 10:30 Zofran 4 Mg/2 Ml Vial IV 07/22/16 10:01 4 mg STAT ONE Administration Ondansetron HCl Confirm 07/22/16 10:25 Zofran 4 Mg/2 Ml Vial Administered 07/22/16 10:26 Dose 4 mg .ROUTE .[facility] ONE Lab/Rad Data: Laboratory Result Diagrams 07/22/16 10:00 07/22/16 10:00 Laboratory Results 07/22/16 07/22/16 07/22/16 Range/Units 10:40 10:40 10:10 WBC (4.0-10.5) K/mm3 RBC (4.1-5.4) M/mm3 Hgb (12.0-16.0) gm/dl Hct (35-47) % MCV (78-100) fl MCH (26-32) pg MCHC (32-36) g/dl RDW (11.5-14.0) % Plt Count (150-450) K/mm3 MPV (6-9.5) fl Segmented Neutrophils (36.0-66.0) % Band Neutrophils (0.0-2.0) % Lymphocytes (Manual) (24-44) % Monocytes (Manual) (0.0-12.0) % Differential Comment Platelet Estimate (NORMAL) Hypochromasia Anisocytosis Sodium (136-145) mEq/L Potassium (3.5-5.1) mEq/L Chloride (98-107) mEq/L Carbon Dioxide (21-32) mEq/L Anion Gap (5-15) MEQ/L BUN (9-20) mg/dL Creatinine (0.55-1.30) mg/dl Estimated GFR ML/MIN Glucose (70-110) MG/DL Lactic Acid 3.0 H (0.4-2.0) Calcium (8.5-10.1) mg/dL Total Bilirubin (0.2-1.0) mg/dL AST (15-37) U/L ALT (12-78) U/L Alkaline Phosphatase (46-116) U/L Serum Total Protein (6.4-8.2) gm/dL Albumin (3.4-5.0) g/dL Amylase (25-115) U/L Lipase (73-393) U/L Ur Collection Type CCMS Urine Color DARK YELLOW (YELLOW) Urine Appearance CLEAR (CLEAR) Urine pH 5.5 (5-6) Ur Specific [place] >=1.030 (1.005-1.025) Urine Protein 100 (Negative) Urine Glucose (UA) NEGATIVE (NEGATIVE) mg/dL Urine Ketones SMALL-15 (NEGATIVE) Urine Nitrite NEGATIVE (NEGATIVE) Urine Bilirubin MODERATE (NEGATIVE) Urine Urobilinogen 0.2 (0-1) mg/dL Urine WBC (Auto) NEGATIVE (NEGATIVE) Urine RBC (Auto) NEGATIVE (0-5) Hemal/ul Urine Microscopic RBC 0-2 (0-2) /HPF Urine Microscopic WBC 2-5 (0-5) /HPF Ur Epithelial Cells FEW (FEW) /HPF Urine Bacteria FEW (NEGATIVE) /HPF Stool Occult Blood POSITIVE (Negative) Specimen Received 07/22 1045 07/22/16 07/22/16 Range/Units 10:00 10:00 WBC 13.5 H (4.0-10.5) K/mm3 RBC 4.58 (4.1-5.4) M/mm3 Hgb 10.8 L (12.0-16.0) gm/dl Hct 36.1 (35-47) % MCV 78.8 (78-100) fl MCH 23.5 L (26-32) pg MCHC 29.9 L (32-36) g/dl RDW 19.1 H (11.5-14.0) % Plt Count 293 (150-450) K/mm3 MPV 9.8 H (6-9.5) fl Segmented Neutrophils 70 H (36.0-66.0) % Band Neutrophils 10 H (0.0-2.0) % Lymphocytes (Manual) 12 L (24-44) % Monocytes (Manual) 8 (0.0-12.0) % Differential Comment ABNORMAL Platelet Estimate NORMAL (NORMAL) Hypochromasia 1+ Anisocytosis 1+ Sodium 142 (136-145) mEq/L Potassium 4.4 (3.5-5.1) mEq/L Chloride 104 (98-107) mEq/L Carbon Dioxide 25.0 (21-32) mEq/L Anion Gap 17.5 H (5-15) MEQ/L BUN 21 H (9-20) mg/dL Creatinine 1.46 H (0.55-1.30) mg/dl Estimated GFR 39 ML/MIN Glucose 122 H (70-110) MG/DL Lactic Acid (0.4-2.0) Calcium 9.0 (8.5-10.1) mg/dL Total Bilirubin 1.0 (0.2-1.0) mg/dL AST 34 (15-37) U/L ALT 8 L (12-78) U/L Alkaline Phosphatase 94 (46-116) U/L Serum Total Protein 7.8 (6.4-8.2) gm/dL Albumin 3.4 (3.4-5.0) g/dL Amylase 24 L (25-115) U/L Lipase 131 (73-393) U/L Ur Collection Type Urine Color (YELLOW) Urine Appearance (CLEAR) Urine pH (5-6) Ur Specific Broad [place] (1.005-1.025) Urine Protein (Negative) Urine Glucose (UA) (NEGATIVE) mg/dL Urine Ketones (NEGATIVE) Urine Nitrite (NEGATIVE) Urine Bilirubin (NEGATIVE) Urine Urobilinogen (0-1) mg/dL Urine WBC (Auto) (NEGATIVE) Urine RBC (Auto) (0-5) Hemal/ul Urine Microscopic RBC (0-2) /HPF Urine Microscopic WBC (0-5) /HPF Ur Epithelial Cells (FEW) /HPF Urine Bacteria (NEGATIVE) /HPF Stool Occult Blood (Negative) Specimen Received - Progress Progress: re-examined (aftyer meds and xr) Progress Note: 07/22/16 10:10 will give IV fluids and meds; labs and xr pending; will recheck after xr and meds 07/22/16 11:04 slight relief; no change in exam; elevated WBC and Lactate; xr mutiple air fluid levels supect SBO; will anchor N/G and give meds and consult LMD 07/22/16 11:21 07/22/16 11:24 Dr Irizarry consulted and will admit and get a surgical consult; patient notified Discussed with : Elvis (consulted and will admit) Will see patient in: hospital (full admit) Counseled pt/family regarding: lab results, diagnosis, need for follow-up, rad results - Departure Time of Disposition: 11:24 Departure Disposition: In-patient Admission Clinical Impression: Small bowel obstruction Condition: Serious Critical Care Time: No Referrals: CHRIS KAYE NP [Primary Care Provider] - HARRY IRIZARRY MD [ACTIVE STAFF] -
[2016-07-22] MEDS ORDERED: Sodium Chloride 0.9% 1000 ML 1,000 ML ONE (10:25)
[2016-07-22] MEDS ORDERED: Reglan 10 MG/2 ML ONE (10:25)
[2016-07-22] MEDS ORDERED: Zofran 4 MG/2 ML VIAL ONE (10:25)
[2016-07-22 10:28] LABS: Mean Cell Volume 78.8 fl (78-100); Mean Platelet Volume 9.8 fl (6-9.5); Platelet Count 293 K/mm3 (150-450); Red Blood Count 4.58 M/mm3 (4.1-5.4); Red Cell Distribution Width 19.1 % (11.5-14.0); White Blood Count 13.5 K/mm3 (4.0-10.5)
[2016-07-22 10:35] LABS: Mean Corpuscular Hemoglobin 23.5 pg (26-32)
[2016-07-22 10:51] LABS: ALBUMIN 3.4 g/dL (3.4-5.0); ANION GAP 17.5 MEQ/L (5-15); Potassium 4.4 mEq/L (3.5-5.1); Total Protein 7.8 gm/dL (6.4-8.2)
[2016-07-22] MEDS ORDERED: Hydromorphone 1 mg/ml Ampule IV ONE (11:06)
[2016-07-22 11:07] LABS: Collection Type CCMS
--- NOTE | 2016-07-22 11:07 | XRAY ---
Indication: Abdominal pain, nausea, and vomiting. Comparison: Chest radiograph July 15, 2016 and abdomen radiograph April 11, 2016. 2 views of the abdomen again demonstrates numerous scattered surgical clips with new abnormal air distended small bowel loops with asynchronous fluid leveling and paucity of distal colonic bowel gas favoring distal small bowel obstruction. No free air. Solid organs unremarkable. Interval L3/L4 kyphoplasty. Single frontal chest remains slightly underinflated with new right base infiltrate/atelectasis and left mid lower lung interstitial opacity. Heart is not enlarged and again demonstrates left-sided AICD and right-sided Port-A-Cath. Impression: 1. New distal small bowel obstruction. 2. New right lung base infiltrate/atelectasis and left lung interstitial opacities.
[2016-07-22 11:08] LABS: Ph 5.5 (5-6)
[2016-07-22 11:09] LABS: Bacteria FEW /HPF (NEGATIVE); COMPLETE URINE MICROSCOPIC? YES; Epithelial Cells FEW /HPF (FEW)
[2016-07-22 11:09] LABS: BAND 10 % (0.0-2.0); Total Cells Counted 100
[2016-07-22 11:10] LABS: ANISOCYTOSIS 1+; Hypochromia 1+; Platelet Estimate NORMAL (NORMAL)
[2016-07-22] MEDS ORDERED: Hydromorphone 1 mg/ml Ampule ONE (11:19)
[2016-07-22] MEDS ORDERED: Phenergan 25 MG INJ IM PRN (12:26)
[2016-07-22] MEDS: Sodium Chloride 0.9% 1000 ML 1,000 ML IV SCH (15:35)
[2016-07-22] MEDS: DILAUDID 1 MG/1ML PCA IV PRN (16:24)
[2016-07-22] MEDS: Coreg 3.125 MG PO SCH (16:49)
--- NOTE | 2016-07-22 16:58 | PCM.HP ---
History of Present Illness - Chief Complaint Chief Complaint: acute abdominal pain with SBO History of Present Illness: is a 61 year old female who presented to the ER today with persistent nausea and vomiting for 2 days, she has been unable to keep anything down. She has a history of ileostomy performed in [place] last year. she reports this is a permanent ileostomy. She had decreased output that was liquid in her ostomy. - Review of Systems Constitutional: No Fever, No Chills Abdominal/Gastrointestinal: Nausea, Vomiting, No Abdominal Pain, No Diarrhea, No Constipation, No Hematochezia, No Melena Genitourinary Symptoms: No Dysuria Skin: No Rash All Other Systems: Reviewed and Negative Medications & Allergies Home Medications: Home Medication List Omeprazole [Prilosec] 40 mg PO DAILY 11/24/11 [History Confirmed 07/22/16] Linagliptin [Tradjenta] 5 mg PO DAILY 01/11/15 [History Confirmed 07/22/16] Carvedilol 3.125 mg [Coreg 3.125 MG] 3.125 mg PO BID 06/08/15 [History Confirmed 07/22/16] Nitroglycerin 0.4 mg Tablet [Nitrostat 0.4 MG Tablet] 0.4 mg SL UD PRN [History Confirmed 07/22/16] Clopidogrel Bisulfate 75 mg [PLAVIX 75 MG Tablet] 0.5 tab PO DAILY [History Confirmed 07/22/16] Dabigatran Etexilate Mesylate [Pradaxa] 150 mg PO BID 03/20/16 [History Confirmed 07/22/16] Levothyroxine Sodium 100 Mcg [Synthroid 100 Mcg] 600 mcg PO DAILY 03/20/16 [History Confirmed 07/22/16] Morphine Sulfate [Morphine Sulfate ER] 30 mg PO BIDPRN PRN 03/20/16 [History Confirmed 07/22/16] Solifenacin Succinate [Vesicare] 10 mg PO DAILY 03/20/16 [History Confirmed 11/02] Allergies/Adverse Reactions: Allergies Allergy/AdvReac Type Severity Reaction Status Date / Time codeine [Codeine] Allergy Mild Nausea and Verified 07/22/16 10:06 Vomiting Sulfa (Sulfonamide Allergy Mild Nausea and Verified 07/22/16 10:06 Antibiotics) Vomiting [Sulfa(Sulfonamide Antibiotics)] adhesive Allergy Verified 07/22/16 10:06 - Past Medical History Past Medical History: Yes Neurological History: Migraines, Stroke ENT History: No Pertinent History Cardiac History: Angina, Arrhythmia, Congenital Heart Disease, Coronary Artery Disease, Hypertension Respiratory History: No Pertinent History Endocrine Medical History: Diabetes Type II, Thyroid Cancer Musculoskelatal History: No Pertinent History GI Medical History: Hernia, Other History: No Pertinent History Pyscho-Social History: No Pertinent History Reproductive Disorders: Endometriosis Comment: THYROID CA 5 YEARS AGO; A FIB, CAROTID STENOSIS. States IBS or " part of my colon", Has illeostomy. - Female History Are you now?: No - Past Surgical History Past Surgical History: Yes Neuro Surgical History: No Pertinent History Cardiac History: Cardiac Catheterization, Internal Defibrillator, Pacemaker Respiratory Surgery: No Pertinent History GI Surgical History: Appendectomy, Cholecystectomy, Colon Resection, Hernia Repair, Other Genitourinary Surgical Hx: No Pertinent History Musculskeletal Surgical Hx: Orthopedic Surgery Female Surgical History: Hysterectomy Other Surgical History: THYROID REMOVED, 40% and 50% blockages found with last heart cath about 4 years ago. ankle surgery d/t break,ileostomy, CVL port removed and replaced, PICC line placed for CVL surgery September 2015. - Social History Smoking Status: Never smoker Exposure to second hand smoke: No Alcohol: None Drug Use: none Significant Family History: heart disease, cancer, diabetes - Physical Exam Vital Signs: Vital Signs - 24 hr Temp Pulse Resp BP Pulse Ox 07/22/16 16:46 95 07/22/16 16:24 92 L 07/22/16 11:42 97 07/22/16 10:50 98.1 F 62 16 110/55 95 07/22/16 10:30 70 07/22/16 10:23 88 20 97 07/22/16 09:44 98.9 F 66 22 135/56 97 General Appearance: mild distress, alert Ears, Nose, Throat Exam: normal ENT inspection, TMs normal, pharynx normal, moist mucous membranes Respiratory Exam: normal breath sounds, lungs clear, No respiratory distress Cardiovascular Exam: regular rate/rhythm, normal heart sounds, normal peripheral pulses Gastrointestinal/Abdomen Exam: soft, No normal bowel sounds (decreased bowel sounds), No tenderness, No distention, No mass, No guarding, No rebound Extremity Exam: normal inspection, normal range of motion, pelvis stable Skin Exam: normal color, warm, dry, No rash Results - Radiology Impressions Radiology Exams & Impressions: Radiology Procedures Category Date Time Status ABDOMEN 2 VIEW Routine Exams 07/23/16 08:00 Ordered - Other Procedures and Tests Respiratory Therapy 07/22/16 16:46 Oxygen NASAL CANNULA 2 lpm Assessment/Plan (1) Small bowel obstruction Current Visit: Yes Status: Acute Assessment & Plan: keep NPO, NG ordered but patient has refused. 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 will follow, appreciate surgery input greatly Code(s): K56.69 - OTHER INTESTINAL OBSTRUCTION (2) Atrial fibrillation Current Visit: No Status: Chronic Code(s): I48.91 - UNSPECIFIED ATRIAL FIBRILLATION (3) CHF (congestive heart failure) Current Visit: No Status: Chronic Code(s): I50.9 - HEART FAILURE, UNSPECIFIED
[2016-07-22] MEDS: Zofran 4 MG/2 ML VIAL IV PRN (20:32)
[2016-07-22] MEDS: ENOXAPARIN SODIUM SQ SCH (22:42)
[2016-07-23] MEDS: Sodium Chloride 0.9% 1000 ML 1,000 ML IV SCH ×3 (00:32→21:23)
[2016-07-23] MEDS: Zofran 4 MG/2 ML VIAL IV PRN ×4 (00:32→21:37)
[2016-07-23 05:50] LABS: BASOPHIL % 0.3 % (0.0-0.4); Eosinophil % 0.4 % (0.00-5.0); Granulocytes % 71.7 % (36.0-66.0); Mean Cell Volume 79.2 fl (78-100); Mean Platelet Volume 9.5 fl (6-9.5); Monocytes % 11.6 % (0.0-12.0); Platelet Count 232 K/mm3 (150-450); Red Blood Count 3.89 M/mm3 (4.1-5.4); White Blood Count 7.1 K/mm3 (4.0-10.5)
[2016-07-23] MEDS: DILAUDID 1 MG/1ML PCA IV PRN (05:51)
[2016-07-23 05:52] LABS: Mean Corpuscular Hemoglobin 23.6 pg (26-32)
[2016-07-23 06:02] LABS: ANION GAP 12.2 MEQ/L (5-15); Carbon Dioxide 28.5 mEq/L (21-32); Potassium 3.8 mEq/L (3.5-5.1)
[2016-07-23] MEDS: Coreg 3.125 MG PO SCH ×3 (08:01→17:33)
--- NOTE | 2016-07-23 08:50 | PCM.NOTE ---
Date and Time: 07/23/16 0847 Subjective Assessment: patient reports nausea persists, no help with zofran. pain is controlled Objective Exam General Appearance: no apparent distress, alert Respiratory Exam: normal breath sounds, lungs clear, No respiratory distress Cardiovascular Exam: regular rate/rhythm, normal heart sounds Gastrointestinal/Abdomen Exam: soft, No normal bowel sounds, No tenderness, No mass, No guarding, No rebound Extremity Exam: normal inspection, normal range of motion OBJECTIVE DATA Vital Signs: Vital Signs - 24 hr Temp Pulse Resp BP Pulse Ox 07/23/16 07:32 98.7 F 62 17 111/60 93 L 07/23/16 05:51 94 L 07/23/16 04:00 98.4 F 60 18 108/55 94 L 07/23/16 00:00 98.4 F 63 19 128/54 93 L 07/22/16 20:35 92 L 07/22/16 20:24 94 L 07/22/16 19:28 99.2 F 64 18 100/59 94 L 07/22/16 16:46 95 07/22/16 16:24 92 L 07/22/16 16:00 99.3 F 65 18 85/54 90 L 07/22/16 11:42 97 07/22/16 10:50 98.1 F 62 16 110/55 95 07/22/16 10:30 70 07/22/16 10:23 88 20 97 07/22/16 09:44 98.9 F 66 22 135/56 97 Oxygen-Last 24 hours O2 Percentage 2 Liters = 28% O2 Percentage 2 Liters = 28% Pain Assessment - Last Documented Pain Intensity 6 Pain Scale Used 0-10 Pain Scale Intake and Output: Intake & Output 07/20/16 07/21/16 07/22/16 07/23/16 11:59 11:59 11:59 11:59 Intake Total 1240 Output Total 550 Balance 690 Weight 89.358 kg Lab Results: Accuchecks Date 07/23/16 Date 07/23/16 Date 07/22/16 Date 07/22/16 Time 04:00 Time 00:00 Time 22:00 Time 16:30 Accucheck Value: 95 Accucheck Value: 97 Accucheck Value: 110 Accucheck Value: 105 Lab Results-Last 24 Hours 07/23/16 07/23/16 Range/Units 05:30 05:30 WBC 7.1 (4.0-10.5) K/mm3 RBC 3.89 L (4.1-5.4) M/mm3 Hgb 9.2 L (12.0-16.0) gm/dl Hct 30.8 L (35-47) % MCV 79.2 (78-100) fl MCH 23.6 L (26-32) pg MCHC 29.9 L (32-36) g/dl RDW 19.0 H (11.5-14.0) % Plt Count 232 (150-450) K/mm3 MPV 9.5 (6-9.5) fl Gran % 71.7 H (36.0-66.0) % Lymphocytes % 16.0 L (24.0-44.0) % Monocytes % 11.6 (0.0-12.0) % Eosinophils % 0.4 (0.00-5.0) % Basophils % 0.3 (0.0-0.4) % Basophils # 0.02 (0-0.4) Sodium 144 (136-145) mEq/L Potassium 3.8 (3.5-5.1) mEq/L Chloride 107 (98-107) mEq/L Carbon Dioxide 28.5 (21-32) mEq/L Anion Gap 12.2 (5-15) MEQ/L BUN 20 (9-20) mg/dL Creatinine 1.02 (0.55-1.30) mg/dl Estimated GFR 59 ML/MIN Glucose 96 (70-110) MG/DL Calcium 8.0 L (8.5-10.1) mg/dL Radiology Exams: Radiology Procedures Category Date Time Status ABDOMEN 2 VIEW Routine Exams 07/23/16 08:00 Taken Assessment/Plan (1) Small bowel obstruction Current Visit: Yes Status: Acute Assessment & Plan: keep NPO, patient refuses NG tube and apparently unable to place in radiology Code(s): K56.69 - OTHER INTESTINAL OBSTRUCTION (2) Atrial fibrillation Current Visit: No Status: Chronic Assessment & Plan: patient on lovenox 80mg sq q12 hrs, place on telemetry Code(s): I48.91 - UNSPECIFIED ATRIAL FIBRILLATION (3) CHF (congestive heart failure) Current Visit: No Status: Chronic Code(s): I50.9 - HEART FAILURE, UNSPECIFIED
--- NOTE | 2016-07-23 09:02 | XRAY ---
Indication: Follow-up small bowel obstruction. Comparison: One day earlier. 2 views of the abdomen again demonstrates air distended small bowel loops less than before with again asynchronous fluid leveling and paucity of colonic bowel gas favoring small bowel obstruction. Remaining abdomen and osseous structures unchanged. Also stable right lung base infiltrate/atelectasis.
[2016-07-23] MEDS: Phenergan 25 MG INJ IV PRN ×3 (09:08→23:16)
[2016-07-23] MEDS ORDERED: SYNTHROID 100 MCG PO SCH (10:00)
[2016-07-23] MEDS ORDERED: MEDICATION INTERVENTION MC SCH ×2 (10:00)
[2016-07-23] MEDS: SYNTHROID 100 MCG PO SCH (11:41)
[2016-07-23] MEDS: PROTONIX 40 MG IV IV SCH (11:42)
[2016-07-23] MEDS: ENOXAPARIN SODIUM SQ SCH ×2 (11:42→21:24)
[2016-07-24] MEDS: Zofran 4 MG/2 ML VIAL IV PRN ×4 (02:25→23:59)
[2016-07-24 05:59] LABS: BASOPHIL % 0.3 % (0.0-0.4); Eosinophil % 1.6 % (0.00-5.0); Granulocytes % 60.8 % (36.0-66.0); Lymphocytes % 28.6 % (24.0-44.0); Mean Cell Volume 79.7 fl (78-100); Mean Platelet Volume 9.5 fl (6-9.5); Monocytes % 8.7 % (0.0-12.0); Platelet Count 238 K/mm3 (150-450); Red Blood Count 3.85 M/mm3 (4.1-5.4); Red Cell Distribution Width 18.9 % (11.5-14.0); White Blood Count 5.7 K/mm3 (4.0-10.5)
[2016-07-24 06:01] LABS: Mean Corpuscular Hemoglobin 23.8 pg (26-32)
[2016-07-24 06:39] LABS: ALBUMIN 2.6 g/dL (3.4-5.0); ALKALINE PHOSPHATASE 73 U/L (46-116); ANION GAP 13.1 MEQ/L (5-15); BILIRUBIN,TOTAL 0.6 mg/dL (0.2-1.0); BLOOD UREA NITROGEN 12 mg/dL (9-20); CHLORIDE 106 mEq/L (98-107); Carbon Dioxide 24.4 mEq/L (21-32); Glucose 72 MG/DL (70-110); Potassium 3.6 mEq/L (3.5-5.1); SGOT/AST 23 U/L (15-37); SGPT/ALT 10 U/L (12-78); SODIUM 140 mEq/L (136-145); Total Protein 6.3 gm/dL (6.4-8.2)
[2016-07-24] MEDS: Sodium Chloride 0.9% 1000 ML 1,000 ML IV SCH (07:17)
[2016-07-24] MEDS: Phenergan 25 MG INJ IV PRN ×3 (07:22→19:55)
[2016-07-24] MEDS: Coreg 3.125 MG PO SCH ×2 (08:03→16:55)
--- NOTE | 2016-07-24 08:41 | PCM.NOTE ---
Date and Time: 07/24/16 0839 Subjective Assessment: patient still has significant nausea, no vomiting overnight. still c/o epigastric pain. continues to have liquid stool in ostomy Objective Exam General Appearance: no apparent distress, alert Respiratory Exam: normal breath sounds, lungs clear, No respiratory distress Cardiovascular Exam: regular rate/rhythm Gastrointestinal/Abdomen Exam: soft, other (liquid stool in ostomy), No normal bowel sounds, No tenderness Extremity Exam: normal inspection, normal range of motion OBJECTIVE DATA Vital Signs: Vital Signs - 24 hr Temp Pulse Resp BP Pulse Ox 07/24/16 08:00 98.3 F 63 17 128/74 97 07/24/16 07:16 94 L 07/24/16 04:00 97.7 F 63 14 131/70 95 07/24/16 00:00 97.0 F 84 16 108/66 94 L 07/23/16 23:30 84 16 94 L 07/23/16 20:00 97.8 F 62 16 110/58 95 07/23/16 16:00 99.1 F 63 17 114/57 93 L 07/23/16 12:00 98.2 F 67 18 132/62 99 Oxygen-Last 24 hours O2 Percentage 3 Liters = 32% O2 Percentage 2 Liters = 28% O2 Percentage 2 Liters = 28% Pain Assessment - Last Documented Pain Intensity 4 Pain Scale Used 0-10 Pain Scale Intake and Output: Intake & Output 07/21/16 07/22/16 07/23/16 07/24/16 11:59 11:59 11:59 11:59 Intake Total 1240 2911 Output Total 550 950 Balance 690 1961 Weight 89.358 kg Lab Results: Accuchecks Date 07/24/16 Date 07/23/16 Date 07/23/16 Date 07/23/16 Time 02:00 Time 21:40 Time 16:30 Time 11:56 Accucheck Value: 74 Accucheck Value: 85 Accucheck Value: 83 Accucheck Value: 77 Lab Results-Last 24 Hours 07/24/16 07/24/16 Range/Units 04:00 05:30 WBC 5.7 (4.0-10.5) K/mm3 RBC 3.85 L (4.1-5.4) M/mm3 Hgb 9.2 L (12.0-16.0) gm/dl Hct 30.7 L (35-47) % MCV 79.7 (78-100) fl MCH 23.8 L (26-32) pg MCHC 30.0 L (32-36) g/dl RDW 18.9 H (11.5-14.0) % Plt Count 238 (150-450) K/mm3 MPV 9.5 (6-9.5) fl Gran % 60.8 (36.0-66.0) % Lymphocytes % 28.6 (24.0-44.0) % Monocytes % 8.7 (0.0-12.0) % Eosinophils % 1.6 (0.00-5.0) % Basophils % 0.3 (0.0-0.4) % Basophils # 0.02 (0-0.4) Sodium 140 (136-145) mEq/L Potassium 3.6 (3.5-5.1) mEq/L Chloride 106 (98-107) mEq/L Carbon Dioxide 24.4 (21-32) mEq/L Anion Gap 13.1 (5-15) MEQ/L BUN 12 (9-20) mg/dL Creatinine 0.81 (0.55-1.30) mg/dl Estimated GFR > 60 ML/MIN Glucose 72 (70-110) MG/DL Calcium 8.1 L (8.5-10.1) mg/dL Total Bilirubin 0.6 (0.2-1.0) mg/dL AST 23 (15-37) U/L ALT 10 L (12-78) U/L Alkaline Phosphatase 73 (46-116) U/L Serum Total Protein 6.3 L (6.4-8.2) gm/dL Albumin 2.6 L (3.4-5.0) g/dL Radiology Exams: Radiology Procedures Category Date Time Status ABDOMEN 2 VIEW Routine Exams 07/23/16 08:00 Completed Assessment/Plan (1) Small bowel obstruction Current Visit: Yes Status: Acute Assessment & Plan: continue current management, repeat abdominal series to follow since has stool in ostomy Code(s): K56.69 - OTHER INTESTINAL OBSTRUCTION (2) Atrial fibrillation Current Visit: No Status: Chronic Code(s): I48.91 - UNSPECIFIED ATRIAL FIBRILLATION (3) CHF (congestive heart failure) Current Visit: No Status: Chronic Code(s): I50.9 - HEART FAILURE, UNSPECIFIED
[2016-07-24] MEDS: ENOXAPARIN SODIUM SQ SCH ×2 (09:27→21:54)
[2016-07-24] MEDS: PROTONIX 40 MG IV IV SCH (09:28)
[2016-07-24] MEDS: SYNTHROID 100 MCG PO SCH (09:48)
[2016-07-24] MEDS: Dextrose 5%/Water IV Soln. 1000 ML 1,000 ML IV SCH (13:39)
[2016-07-24] MEDS: DILAUDID 1 MG/1ML PCA IV PRN (17:17)
[2016-07-25] MEDS: Dextrose 5%/Water IV Soln. 1000 ML 1,000 ML IV SCH (00:02)
[2016-07-25] MEDS: Phenergan 25 MG INJ IV PRN ×3 (03:22→17:47)
[2016-07-25 05:47] LABS: BASOPHIL % 0.4 % (0.0-0.4); Eosinophil % 1.3 % (0.00-5.0); Granulocytes % 62.3 % (36.0-66.0); Lymphocytes % 26.3 % (24.0-44.0); Mean Cell Volume 78.9 fl (78-100); Mean Platelet Volume 9.6 fl (6-9.5); Monocytes % 9.7 % (0.0-12.0); Platelet Count 245 K/mm3 (150-450); Red Blood Count 4.03 M/mm3 (4.1-5.4); Red Cell Distribution Width 18.5 % (11.5-14.0); White Blood Count 5.4 K/mm3 (4.0-10.5)
[2016-07-25 05:53] LABS: Mean Corpuscular Hemoglobin 23.5 pg (26-32)
[2016-07-25 05:55] LABS: ALBUMIN 2.8 g/dL (3.4-5.0); ALKALINE PHOSPHATASE 80 U/L (46-116); ANION GAP 12.7 MEQ/L (5-15); BILIRUBIN,TOTAL 0.3 mg/dL (0.2-1.0); BLOOD UREA NITROGEN 4 mg/dL (9-20); CHLORIDE 101 mEq/L (98-107); Carbon Dioxide 26.5 mEq/L (21-32); Glucose 94 MG/DL (70-110); Potassium 3.1 mEq/L (3.5-5.1); SGOT/AST 17 U/L (15-37); SGPT/ALT 8 U/L (12-78); SODIUM 137 mEq/L (136-145); Total Protein 6.6 gm/dL (6.4-8.2)
[2016-07-25] MEDS: Zofran 4 MG/2 ML VIAL IV PRN ×3 (07:54→21:04)
[2016-07-25] MEDS: D5W/0.45NS W/ 20mEq KCl 1000 ML 1,000 ML IV SCH ×2 (07:58→19:47)
--- NOTE | 2016-07-25 08:01 | PCM.NOTE ---
Date and Time: 07/25/16 0759 Subjective Assessment: patient still c/o nausea, no vomiting this morning. no new complaints, had low blood sugar yesterday, potassium slightly low today Objective Exam General Appearance: no apparent distress, alert Respiratory Exam: normal breath sounds, lungs clear, No respiratory distress Cardiovascular Exam: regular rate/rhythm, normal heart sounds Gastrointestinal/Abdomen Exam: soft (liquid brown stool in ostomy), No normal bowel sounds (decreased) Extremity Exam: normal inspection, normal range of motion OBJECTIVE DATA Vital Signs: Vital Signs - 24 hr Temp Pulse Resp BP Pulse Ox 07/25/16 07:32 97.6 F 64 18 146/87 96 07/25/16 07:02 93 L 07/25/16 04:00 97.7 F 63 15 107/67 94 L 07/25/16 00:00 98.4 F 68 16 107/68 96 07/24/16 20:01 94 L 07/24/16 20:00 98.5 F 62 16 114/65 94 L 07/24/16 17:17 96 07/24/16 16:00 99.2 F 63 20 114/59 96 07/24/16 12:00 98.0 F 65 19 131/76 95 07/24/16 08:00 98.3 F 63 17 128/74 97 Oxygen-Last 24 hours O2 Percentage 3 Liters = 32% Pain Assessment - Last Documented Pain Intensity 4 Pain Scale Used 0-10 Pain Scale Intake and Output: Intake & Output 07/22/16 07/23/16 07/24/16 07/25/16 11:59 11:59 11:59 11:59 Intake Total 1240 2911 2600 Output Total 550 950 900 Balance 690 1961 1700 Weight 89.358 kg 88.632 kg 89.358 kg Lab Results: Accuchecks Date 07/25/16 Date 07/25/16 Date 07/24/16 Date 07/24/16 Date 07/24/16 Time 04:00 Time 02:00 Time 22:00 Time 14:00 Time 12:00 Accucheck Value: 93 Accucheck Value: 93 Accucheck Value: 97 Accucheck Value: 75 Accucheck Value: 65 Lab Results-Last 24 Hours 07/25/16 07/25/16 Range/Units 05:00 05:00 WBC 5.4 (4.0-10.5) K/mm3 RBC 4.03 L (4.1-5.4) M/mm3 Hgb 9.5 L (12.0-16.0) gm/dl Hct 31.8 L (35-47) % MCV 78.9 (78-100) fl MCH 23.5 L (26-32) pg MCHC 29.9 L (32-36) g/dl RDW 18.5 H (11.5-14.0) % Plt Count 245 (150-450) K/mm3 MPV 9.6 H (6-9.5) fl Gran % 62.3 (36.0-66.0) % Lymphocytes % 26.3 (24.0-44.0) % Monocytes % 9.7 (0.0-12.0) % Eosinophils % 1.3 (0.00-5.0) % Basophils % 0.4 (0.0-0.4) % Basophils # 0.02 (0-0.4) Sodium 137 (136-145) mEq/L Potassium 3.1 L (3.5-5.1) mEq/L Chloride 101 (98-107) mEq/L Carbon Dioxide 26.5 (21-32) mEq/L Anion Gap 12.7 (5-15) MEQ/L BUN 4 L (9-20) mg/dL Creatinine 0.76 (0.55-1.30) mg/dl Estimated GFR > 60 ML/MIN Glucose 94 (70-110) MG/DL Calcium 8.3 L (8.5-10.1) mg/dL Total Bilirubin 0.3 (0.2-1.0) mg/dL AST 17 (15-37) U/L ALT 8 L (12-78) U/L Alkaline Phosphatase 80 (46-116) U/L Serum Total Protein 6.6 (6.4-8.2) gm/dL Albumin 2.8 L (3.4-5.0) g/dL Radiology Exams: Radiology Procedures Category Date Time Status ABDOMEN 2 VIEW Routine Exams 07/23/16 08:00 Completed UGI W/SMALL BOWEL FOLLOW THRU Routine Exams 07/25/16 08:00 Ordered Assessment/Plan (1) Small bowel obstruction Current Visit: Yes Status: Acute Assessment & Plan: UGI with small bowel follow through today Code(s): K56.69 - OTHER INTESTINAL OBSTRUCTION (2) Atrial fibrillation Current Visit: No Status: Chronic Code(s): I48.91 - UNSPECIFIED ATRIAL FIBRILLATION (3) CHF (congestive heart failure) Current Visit: No Status: Chronic Code(s): I50.9 - HEART FAILURE, UNSPECIFIED (4) Hypokalemia Current Visit: Yes Status: Acute Assessment & Plan: add K to fluids Code(s): E87.6 - HYPOKALEMIA (5) Hypoglycemia Current Visit: Yes Status: Acute Assessment & Plan: D5 1/2NS +20mEq KCl at 100ml/hr Code(s): E16.2 - HYPOGLYCEMIA, UNSPECIFIED
[2016-07-25] MEDS: Coreg 3.125 MG PO SCH ×2 (08:18→17:44)
[2016-07-25] MEDS: PROTONIX 40 MG IV IV SCH (11:28)
[2016-07-25] MEDS: SYNTHROID 100 MCG PO SCH (11:32)
[2016-07-25] MEDS: ENOXAPARIN SODIUM SQ SCH ×2 (11:47→21:59)
--- NOTE | 2016-07-25 15:41 | XRAY ---
Indication: Nausea and vomiting for 5 days. Obstruction. Preliminary sample finisher abdomen demonstrates moderate air distended small bowel loops with numerous surgical clips throughout all 4 quadrants. Solid organs not well seen. No large free air. Osseous structures are slightly demineralized with note of previous L3-L4 kyphoplasty. Due to patient's discomfort and nausea, single contrast upper GI was performed. Patient was only able to ingest approximately 12 ounces of barium. No miss swallow or aspiration. Esophagus is normal in course and caliber without stricture, obstruction, or filling defect. No hiatal hernia. Barium freely emptied into the stomach. Partially distended stomach grossly unremarkable. Normal gastric emptying with the duodenum abnormally distended along its entire course. Small bowel follow-through demonstrates antegrade movement of the barium to the level of the right lower quadrant colostomy bag in 3 hours and 30 minutes. The small bowel loops are moderately distended to the level of the pelvis. Visualized pelvic small bowel loops appear more normal in caliber. Impression: 1. Single contrast upper GI exam of the esophagus and stomach grossly negative. 2. Limited small bowel follow-through exam demonstrates barium emptying in the right lower quadrant colostomy in 3 hours and 30 minutes. Majority of the small bowel loops are distended to the level of the pelvis which then appears more normal in caliber. Query partial small bowel obstruction. 4. 1.3 minutes fluoroscopy used.
[2016-07-26] MEDS: Phenergan 25 MG INJ IV PRN ×4 (00:01→22:53)
[2016-07-26] MEDS: Zofran 4 MG/2 ML VIAL IV PRN ×3 (02:20→20:20)
[2016-07-26] MEDS: D5W/0.45NS W/ 20mEq KCl 1000 ML 1,000 ML IV SCH ×2 (05:11→14:54)
[2016-07-26 05:18] LABS: BASOPHIL % 0.1 % (0.0-0.4); Eosinophil % 0.7 % (0.00-5.0); Granulocytes % 65.3 % (36.0-66.0); Lymphocytes % 23.4 % (24.0-44.0); Mean Cell Volume 79.2 fl (78-100); Mean Corpuscular Hemoglobin 23.6 pg (26-32); Mean Platelet Volume 9.4 fl (6-9.5); Monocytes % 10.5 % (0.0-12.0); Platelet Count 260 K/mm3 (150-450); Red Blood Count 4.19 M/mm3 (4.1-5.4); White Blood Count 6.9 K/mm3 (4.0-10.5)
[2016-07-26 05:31] LABS: ANION GAP 12.2 MEQ/L (5-15); BLOOD UREA NITROGEN 3 mg/dL (9-20); CHLORIDE 102 mEq/L (98-107); Carbon Dioxide 27.7 mEq/L (21-32); Glucose 120 MG/DL (70-110); Potassium 3.6 mEq/L (3.5-5.1); SODIUM 138 mEq/L (136-145)
[2016-07-26] MEDS: Coreg 3.125 MG PO SCH ×2 (07:55→16:57)
--- NOTE | 2016-07-26 08:28 | PCM.NOTE ---
Date and Time: 07/26/16 0826 Subjective Assessment: patient continues to experience nausea, still has liquid output in ostomy, more brown but not as dark like initially. Objective Exam General Appearance: no apparent distress, alert Respiratory Exam: normal breath sounds Cardiovascular Exam: regular rate/rhythm, normal heart sounds Gastrointestinal/Abdomen Exam: soft, No normal bowel sounds (present but decreased), No tenderness, No distention, No guarding Extremity Exam: normal inspection OBJECTIVE DATA Vital Signs: Vital Signs - 24 hr Temp Pulse Resp BP Pulse Ox 07/26/16 04:00 98.2 F 60 16 101/57 95 07/26/16 00:00 97.9 F 63 15 118/67 95 07/25/16 22:25 63 15 95 07/25/16 20:00 98.0 F 65 18 113/69 95 07/25/16 16:00 98.0 F 65 19 126/75 96 07/25/16 12:00 98.4 F 60 18 111/58 97 Pain Assessment - Last Documented Pain Intensity 6 Pain Scale Used 0-10 Pain Scale Intake and Output: Intake & Output 07/23/16 07/24/16 07/25/16 07/26/16 11:59 11:59 11:59 11:59 Intake Total 1240 2911 2600 2289 Output Total 550 950 900 800 Balance 690 1961 1700 1489 Weight 89.358 kg 88.632 kg 88.859 kg 89.811 kg Lab Results: Accuchecks Date 07/26/16 Date 07/26/16 Date 07/25/16 Date 07/25/16 Date 07/25/16 Time 06:00 Time 02:00 Time 00:00 Time 17:01 Time 12:00 Accucheck Value: 120 Accucheck Value: 104 Accucheck Value: 106 Accucheck Value: 102 Accucheck Value: 99 Lab Results-Last 24 Hours 07/26/16 07/26/16 Range/Units 04:55 04:55 WBC 6.9 (4.0-10.5) K/mm3 RBC 4.19 (4.1-5.4) M/mm3 Hgb 9.9 L (12.0-16.0) gm/dl Hct 33.2 L (35-47) % MCV 79.2 (78-100) fl MCH 23.6 L (26-32) pg MCHC 29.8 L (32-36) g/dl RDW 19.0 H (11.5-14.0) % Plt Count 260 (150-450) K/mm3 MPV 9.4 (6-9.5) fl Gran % 65.3 (36.0-66.0) % Lymphocytes % 23.4 L (24.0-44.0) % Monocytes % 10.5 (0.0-12.0) % Eosinophils % 0.7 (0.00-5.0) % Basophils % 0.1 (0.0-0.4) % Basophils # 0.01 (0-0.4) Sodium 138 (136-145) mEq/L Potassium 3.6 (3.5-5.1) mEq/L Chloride 102 (98-107) mEq/L Carbon Dioxide 27.7 (21-32) mEq/L Anion Gap 12.2 (5-15) MEQ/L BUN 3 L (9-20) mg/dL Creatinine 0.91 (0.55-1.30) mg/dl Estimated GFR > 60 ML/MIN Glucose 120 H (70-110) MG/DL Calcium 8.3 L (8.5-10.1) mg/dL Radiology Exams: Radiology Procedures Category Date Time Status UGI W/SMALL BOWEL FOLLOW THRU Routine Exams 07/25/16 08:00 Completed Assessment/Plan (1) Small bowel obstruction Current Visit: Yes Status: Acute Assessment & Plan: has been treated medically, upper gi shows findings c/w partial obstruction but nothing high grade Code(s): K56.69 - OTHER INTESTINAL OBSTRUCTION (2) Atrial fibrillation Current Visit: No Status: Chronic Assessment & Plan: covered with lovenox since NPO Code(s): I48.91 - UNSPECIFIED ATRIAL FIBRILLATION (3) CHF (congestive heart failure) Current Visit: No Status: Chronic Code(s): I50.9 - HEART FAILURE, UNSPECIFIED (4) Hypokalemia Current Visit: Yes Status: Acute Assessment & Plan: replaced Code(s): E87.6 - HYPOKALEMIA (5) Hypoglycemia Current Visit: Yes Status: Acute Assessment & Plan: resolved with D5 Code(s): E16.2 - HYPOGLYCEMIA, UNSPECIFIED
[2016-07-26] MEDS: SYNTHROID 100 MCG PO SCH (09:52)
[2016-07-26] MEDS: PROTONIX 40 MG IV IV SCH (09:52)
[2016-07-26] MEDS: ENOXAPARIN SODIUM SQ SCH ×2 (09:53→22:54)
[2016-07-27] MEDS: D5W/0.45NS W/ 20mEq KCl 1000 ML 1,000 ML IV SCH ×2 (00:53→10:05)
[2016-07-27] MEDS: Zofran 4 MG/2 ML VIAL IV PRN ×3 (02:52→18:04)
[2016-07-27 05:53] LABS: BASOPHIL % 0.4 % (0.0-0.4); Eosinophil % 1.2 % (0.00-5.0); Granulocytes % 46.9 % (36.0-66.0); Lymphocytes % 41.6 % (24.0-44.0); Mean Cell Volume 80.5 fl (78-100); Mean Corpuscular Hemoglobin 24.1 pg (26-32); Mean Platelet Volume 9.5 fl (6-9.5); Monocytes % 9.9 % (0.0-12.0); Platelet Count 256 K/mm3 (150-450); Red Cell Distribution Width 19.2 % (11.5-14.0); White Blood Count 5.1 K/mm3 (4.0-10.5)
[2016-07-27] MEDS: Phenergan 25 MG INJ IV PRN ×3 (06:01→22:10)
[2016-07-27 06:20] LABS: ALBUMIN 2.6 g/dL (3.4-5.0); ALKALINE PHOSPHATASE 89 U/L (46-116); ANION GAP 9.3 MEQ/L (5-15); BILIRUBIN,TOTAL 0.2 mg/dL (0.2-1.0); BLOOD UREA NITROGEN 3 mg/dL (9-20); CHLORIDE 105 mEq/L (98-107); Carbon Dioxide 28.9 mEq/L (21-32); Glucose 113 MG/DL (70-110); Potassium 3.5 mEq/L (3.5-5.1); SGOT/AST 39 U/L (15-37); SGPT/ALT 14 U/L (12-78); SODIUM 140 mEq/L (136-145); Total Protein 6.2 gm/dL (6.4-8.2)
[2016-07-27] MEDS: DILAUDID 1 MG/1ML PCA IV PRN ×2 (06:51→19:32)
[2016-07-27] MEDS: Coreg 3.125 MG PO SCH ×2 (08:12→18:00)
[2016-07-27] MEDS ORDERED: TYLENOL 325 MG PO PRN (09:48)
[2016-07-27] MEDS: PROTONIX 40 MG IV IV SCH (09:49)
[2016-07-27] MEDS: ENOXAPARIN SODIUM SQ SCH ×2 (09:49→23:21)
[2016-07-27] MEDS: SYNTHROID 100 MCG PO SCH (09:49)
--- NOTE | 2016-07-27 09:52 | PCM.NOTE ---
Date and Time: 07/27/16 0948 Subjective Assessment: She reports she continues to have abdominal pain and nausea. Her ostomy is putting out brown liquid. Dr. Cleveland saw her and wanted to start her on full liquid diet and continue with medical management. - Review of Systems Constitutional: No Symptoms Eyes: No Symptoms Ears, Nose, & Throat: No Symptoms Respiratory: No Symptoms Cardiac: No Symptoms Abdominal/Gastrointestinal: Abdominal Pain, Nausea, Vomiting, Other (loose, liquid stool in ostomy bag) Genitourinary Symptoms: No Symptoms Musculoskeletal: No Symptoms Skin: No Symptoms Objective Exam General Appearance: no apparent distress, alert, obese Neurologic Exam: alert, cooperative, normal mood/affect Skin Exam: normal color, warm, dry, No rash Respiratory Exam: normal breath sounds, lungs clear, No crackles/rales, No rhonchi, No wheezing Cardiovascular Exam: regular rate/rhythm, normal heart sounds, No murmur, No friction rub, No gallop Gastrointestinal/Abdomen Exam: soft, other (hypoactive bowel sounds, mild tenderness throughout, ostomy in place with liquid brown stool), No distention, No mass, No guarding Extremity Exam: other (no c/c/e, mild swelling left ankle, nicole hose in place; port in place right upper chest.) OBJECTIVE DATA Vital Signs: Vital Signs - 24 hr Temp Pulse Resp BP Pulse Ox 07/27/16 07:34 97.8 F 63 18 112/67 97 07/27/16 06:51 95 07/27/16 04:00 97.9 F 66 15 109/65 95 07/26/16 23:53 97.6 F 62 18 110/65 95 07/26/16 20:00 98.7 F 60 17 109/68 94 L 07/26/16 19:30 65 19 95 07/26/16 18:34 94 L 07/26/16 16:00 97.9 F 64 18 97/57 94 L 07/26/16 12:00 98.6 F 68 18 103/66 97 Pain Assessment - Last Documented Pain Intensity 6 Pain Scale Used [facility] Intake and Output: Intake & Output 07/25/16 07/26/16 07/27/16 07/28/16 06:59 06:59 06:59 07:59 Intake Total 2600 2289 3116 300 Output Total 900 800 800 Balance 1700 1489 2316 300 Weight 88.859 kg 89.811 kg 89.04 kg Lab Results: Accuchecks Date 07/27/16 Date 07/27/16 Date 07/26/16 Date 07/26/16 Date 07/26/16 Time 04:00 Time 00:00 Time 21:00 Accucheck Value: 116 Accucheck Value: 122 Accucheck Value: 96 Accucheck Value: 93 Accucheck Value: 107 Lab Results-Last 24 Hours 07/27/16 07/27/16 Range/Units 05:30 05:30 WBC 5.1 (4.0-10.5) K/mm3 RBC 3.90 L (4.1-5.4) M/mm3 Hgb 9.4 L (12.0-16.0) gm/dl Hct 31.4 L (35-47) % MCV 80.5 (78-100) fl MCH 24.1 L (26-32) pg MCHC 29.9 L (32-36) g/dl RDW 19.2 H (11.5-14.0) % Plt Count 256 (150-450) K/mm3 MPV 9.5 (6-9.5) fl Gran % 46.9 (36.0-66.0) % Lymphocytes % 41.6 (24.0-44.0) % Monocytes % 9.9 (0.0-12.0) % Eosinophils % 1.2 (0.00-5.0) % Basophils % 0.4 (0.0-0.4) % Basophils # 0.02 (0-0.4) Sodium 140 (136-145) mEq/L Potassium 3.5 (3.5-5.1) mEq/L Chloride 105 (98-107) mEq/L Carbon Dioxide 28.9 (21-32) mEq/L Anion Gap 9.3 (5-15) MEQ/L BUN 3 L (9-20) mg/dL Creatinine 0.90 (0.55-1.30) mg/dl Estimated GFR > 60 ML/MIN Glucose 113 H (70-110) MG/DL Calcium 8.3 L (8.5-10.1) mg/dL Total Bilirubin 0.2 (0.2-1.0) mg/dL AST 39 H (15-37) U/L ALT 14 (12-78) U/L Alkaline Phosphatase 89 (46-116) U/L Serum Total Protein 6.2 L (6.4-8.2) gm/dL Albumin 2.6 L (3.4-5.0) g/dL Multi-Disciplinary Progress Notes: Multi-Disciplinary Progress Notes 07/26/16 11:21 Nutrition Note by Isha So F/u note: Pt remains NPO. Labs 07/26= glu 120, BUN 3, hgb 9.9, hct 33.2. Weight stable, pt with nausea. goal not met and ongoing. Con't to recommend pt to resume po intake within 1-2 days. Will con't to monitor and f/u prn. T.GLADYS So Initialized on 07/26/16 11:21 - END OF NOTE Assessment/Plan (1) Small bowel obstruction Current Visit: Yes Status: Acute Assessment & Plan: Diet is being advanced slowly. Surgeon is following. 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 Code(s): K56.69 - OTHER INTESTINAL OBSTRUCTION (2) Atrial fibrillation Current Visit: No Status: Chronic Assessment & Plan: Continue with lovenox for anticoagulation. Rate is controlled. Code(s): I48.91 - UNSPECIFIED ATRIAL FIBRILLATION (3) Nausea Current Visit: Yes Status: Acute Code(s): R11.0 - NAUSEA (4) History of CHF (congestive heart failure) Current Visit: Yes Status: Acute Assessment & Plan: Decrease IV fluids to 60 mL/hr today. Code(s): Z86.79 - PERSONAL HISTORY OF OTHER DISEASES OF THE CIRCULATORY SYSTEM
[2016-07-28] MEDS: D5W/0.45NS W/ 20mEq KCl 1000 ML 1,000 ML IV SCH (03:34)
[2016-07-28] MEDS: Zofran 4 MG/2 ML VIAL IV PRN ×4 (03:39→20:32)
[2016-07-28] MEDS: DILAUDID 1 MG/1ML PCA IV PRN ×2 (07:28→16:00)
[2016-07-28] MEDS: Coreg 3.125 MG PO SCH ×2 (08:44→17:43)
[2016-07-28] MEDS: ENOXAPARIN SODIUM SQ SCH (08:44)
[2016-07-28] MEDS: SYNTHROID 100 MCG PO SCH (08:45)
[2016-07-28] MEDS: PROTONIX 40 MG IV IV SCH (08:45)
[2016-07-28] MEDS: Phenergan 25 MG INJ IV PRN ×2 (11:05→18:14)
--- NOTE | 2016-07-28 11:49 | PCM.NOTE ---
Date and Time: 07/28/16 1145 Subjective Assessment: She has been able to tolerate liquids and the surgeon advanced her diet to soft today. 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 She reports feeling like she has a lot of gas and sometimes having cramping in her abdomen. - Review of Systems Constitutional: No Symptoms Eyes: No Symptoms Ears, Nose, & Throat: No Symptoms Respiratory: No Symptoms Cardiac: No Symptoms Abdominal/Gastrointestinal: Abdominal Pain, Other (loose stool in ostomy bag), No Nausea, No Vomiting Genitourinary Symptoms: No Symptoms Musculoskeletal: No Symptoms Skin: No Symptoms Objective Exam General Appearance: no apparent distress, obese Neurologic Exam: alert, cooperative, normal mood/affect Skin Exam: normal color, warm, dry, No rash Respiratory Exam: normal breath sounds, lungs clear, No crackles/rales, No rhonchi, No wheezing Cardiovascular Exam: regular rate/rhythm, normal heart sounds, No murmur, No friction rub, No gallop Gastrointestinal/Abdomen Exam: soft, normal bowel sounds, other (ostomy in place with liquid brown stool and gas), No tenderness, No distention, No mass, No guarding Extremity Exam: normal inspection, other (no c/c/e) OBJECTIVE DATA Vital Signs: Vital Signs - 24 hr Temp Pulse Resp BP Pulse Ox 07/28/16 07:43 97.6 F 63 18 103/55 96 07/28/16 07:28 96 07/28/16 04:14 98.1 F 61 15 104/63 94 L 07/28/16 00:00 97.6 F 63 15 102/60 93 L 07/27/16 23:32 96 07/27/16 20:00 98.9 F 65 16 117/66 96 07/27/16 19:32 92 L 07/27/16 16:00 98.8 F 64 19 106/62 92 L 07/27/16 14:42 97 07/27/16 12:00 98.5 F 64 17 99/63 98 Pain Assessment - Last Documented Pain Intensity 5 Pain Scale Used 0-10 Pain Scale Intake and Output: Intake & Output 07/26/16 07/27/16 07/28/16 07/29/16 05:59 05:59 06:59 06:59 Intake Total 300 Output Total 300 Balance 0 Weight Lab Results: Accuchecks Date 07/28/16 Date 07/28/16 Date 07/28/16 Date 07/27/16 Date 07/27/16 Date 07/27/16 Time 08:00 Time 04:00 Time 00:15 Time 20:30 Time 16:30 Time 12:00 Accucheck Value: 100 Accucheck Value: 102 Accucheck Value: 102 Accucheck Value: 113 Accucheck Value: 106 Accucheck Value: 114 Multi-Disciplinary Progress Notes: Multi-Disciplinary Progress Notes 07/28/16 09:31 Respiratory Note by Jaylin Stewart ROOM AIR RESTING 97%. O2 D/CD PT NOT USING Initialized on 07/28/16 09:31 - END OF NOTE Assessment/Plan (1) Small bowel obstruction Current Visit: Yes Status: Acute Assessment & Plan: Resolving and diet advanced today. Will restart on pradaxa and stop lovenox. Code(s): K56.69 - OTHER INTESTINAL OBSTRUCTION (2) Atrial fibrillation Current Visit: No Status: Chronic Assessment & Plan: Continue pradaxa. Her PCP will need to clarify with her community resource consultant if she is to be taking plavix also as the med list states it has not been filled since 2015. Code(s): I48.91 - UNSPECIFIED ATRIAL FIBRILLATION (3) Nausea Current Visit: Yes Status: Acute Assessment & Plan: Improving with improvement in SBO. Code(s): R11.0 - NAUSEA (4) History of CHF (congestive heart failure) Current Visit: Yes Status: Acute Assessment & Plan: D/c IV fluids as she is taking liquids well by mouth now. Code(s): Z86.79 - PERSONAL HISTORY OF OTHER DISEASES OF THE CIRCULATORY SYSTEM
[2016-07-28] MEDS ORDERED: MS CONTIN 30 MG PO PRN (22:00)
[2016-07-28] MEDS ORDERED: PRADAXA 75 MG PO SCH (22:00)
[2016-07-28] MEDS: PRADAXA 75 MG PO SCH ×2 (22:23→22:34)
[2016-07-29] MEDS: Phenergan 25 MG INJ IV PRN (03:28)
[2016-07-29 04:43] VITALS: PULSE 63
[2016-07-29 07:43] VITALS: BP 90/54; O2SAT 93
[2016-07-29] MEDS: Coreg 3.125 MG PO SCH (07:50)
--- NOTE | 2016-07-29 07:57 | PCM.DS ---
Discharge Summary Date of Admission: 07/22/16 12:21 Admitting Physician: HARRY IRIZARRY Consults: Consults on Case 07/22/16 13:40 Consult Physician ROUTINE Primary Care Provider: CHRIS KAYE Allergies Allergies codeine [Codeine] Allergy (Mild, Verified 07/22/16 10:06) Nausea and Vomiting Sulfa (Sulfonamide Antibiotics) [Sulfa(Sulfonamide Antibiotics)] Allergy (Mild, Verified 07/22/16 10:06) Nausea and Vomiting adhesive Allergy (Verified 07/22/16 10:06) Hospital Summary - Hospital Course Hospital Course: patient was admitted with abdominal pain, nausea, c/w partial small bowel obstruction. treated medically, now tolerating soft diet. no more vomiting, has good ostomy output and feels much better at the time of discharge. - Vitals & Intake/Output Vital Signs: Vital Signs Temperature 97.7 F 07/29/16 07:43 Pulse Rate 63 07/29/16 07:43 Respiratory Rate 18 07/29/16 07:43 Blood Pressure 90/54 07/29/16 07:43 O2 Sat by Pulse Oximetry 93 L 07/29/16 07:43 Oxygen-Last Documented O2 Percentage 3 Liters = 32% Intake & Output: Intake & Output 07/26/16 07/27/16 07/28/16 07/29/16 10:59 10:59 11:59 11:59 Intake Total 1896 Output Total 1000 Balance 896 Weight - Lab Result Diagrams: 07/27/16 05:30 07/27/16 05:30 Lab Results-Last 24 Hrs: Accuchecks Date 07/28/16 Date 07/28/16 Date 07/28/16 Time 21:00 Time 17:00 Time 11:30 Accucheck Value: 108 Accucheck Value: 131 Accucheck Value: 117 Micro Results-Entire Visit: Accuchecks Date 07/28/16 Date 07/28/16 Date 07/28/16 Time 21:00 Time 17:00 Time 11:30 Accucheck Value: 108 Accucheck Value: 131 Accucheck Value: 117 Discharge Exam General Appearance: no apparent distress, alert Respiratory Exam: normal breath sounds, lungs clear, No respiratory distress Cardiovascular Exam: regular rate/rhythm, normal heart sounds Gastrointestinal/Abdomen Exam: soft, normal bowel sounds, other (stool present in ostomy, liquid), No tenderness Extremity Exam: normal inspection, normal range of motion Final Diagnosis/Problem List - Final Discharge Diagnosis/Problem (1) Small bowel obstruction Current Visit: Yes Status: Acute (2) Atrial fibrillation Current Visit: No Status: Chronic (3) CHF (congestive heart failure) Current Visit: No Status: Chronic (4) Hypokalemia Current Visit: Yes Status: Acute (5) Hypoglycemia Current Visit: Yes Status: Acute - Discharge Disposition: Home, Self-Care Condition: Good Prescriptions: New Promethazine HCl 12.5 mg PO Q6-8HPRN PRN #30 tablet PRN Reason: Nausea Continue Omeprazole [Prilosec] 40 mg PO DAILY Linagliptin [Tradjenta] 5 mg PO DAILY Carvedilol 3.125 mg [Coreg 3.125 MG] 3.125 mg PO BID Nitroglycerin 0.4 mg Tablet [Nitrostat 0.4 MG Tablet] 0.4 mg SL UD PRN PRN Reason: Chest Pain Dabigatran Etexilate Mesylate [Pradaxa] 150 mg PO BID Clopidogrel Bisulfate 75 mg [PLAVIX 75 MG Tablet] 0.5 tab PO DAILY Levothyroxine Sodium 100 Mcg [Synthroid 100 Mcg] 600 mcg PO DAILY Solifenacin Succinate [Vesicare] 10 mg PO DAILY Morphine Sulfate [Morphine Sulfate ER] 30 mg PO BIDPRN PRN PRN Reason: Pain Additional Instructions: [facility] WILL CALL YOU TO ARRANGE YOUR NEXT VISIT. YOU MAY REACH THEM AT EXT [phone]. Follow up with: HARRY IRIZARRY MD [ACTIVE STAFF] - CHRIS KAYE NP [Primary Care Provider] -
[2016-07-29] MEDS: PRADAXA 75 MG PO SCH (08:10)
[2016-07-29] MEDS: SYNTHROID 100 MCG PO SCH (08:14)
[2016-07-29] MEDS: PROTONIX 40 MG IV IV SCH (08:15)
== END 2016-07-29 08:30 | disposition home health service (06) | DRG 388 ==
LOC: ED 09:37 → MED SURG 12:21
PROVIDERS: ADMIT Family Medicine; ATTEND Family Medicine
DX: K56.60 Unspecified intestinal obstruction (principal); I50.21 Acute systolic (congestive) heart failure; I48.91 Unspecified atrial fibrillation; E87.6 Hypokalemia; E11.649 Type 2 diabetes mellitus with hypoglycemia without coma; I10 Essential (primary) hypertension; I25.10 Atherosclerotic heart disease of native coronary artery without angina pectoris; Z85.850 Personal history of malignant neoplasm of thyroid; Z95.810 Presence of automatic (implantable) cardiac defibrillator; Z93.3 Colostomy status; Z79.01 Long term (current) use of anticoagulants; Z79.899 Other long term (current) drug therapy
CPT/HCPCS: 36415; 74020; 74022; 74249; 80048; 80053; 81000; 82150; 82272; 82962; 83605; 83690; 85025; 87493; 94760; 96374; 96375; 99285; J1170; J1642; J1650; J2405; J2550

== ENCOUNTER 2016-09-14 16:57 | Emergency (ER) | payer MEDICARE ==
[2016-09-14 17:25] VITALS: O2SAT 95
[2016-09-14] MEDS ORDERED: Zofran 4 MG/2 ML VIAL IV ONE (17:30)
--- NOTE | 2016-09-14 17:30 | ERPHSYRPT ---
- History of Present Illness Time Seen by Provider: 09/14/16 17:28 Historian: patient Exam Limitations: no limitations Patient Subjective Stated Complaint: vomited times three today. having oozing from surgical wound from bowel blockage on august 25. denies fever. hx ileostomy one year ago. also having abd pain. Triage Nursing Assessment: ambulated to room per self. skin w/d, color normal, resp easy. abd soft, tender. surgery scars noted but no drainage noted. ileostomy bag in place with small amt stool noted. Physician History: vomited times three today. having oozing from surgical wound from bowel blockage on august 25. denies fever. hx ileostomy one year ago. also having abdominal pain. no fever, no abdominal distension Timing/Duration: today Activities at Onset: none Modifying Factors: Improves With: nothing Associated Symptoms: vomiting (3 times today) Allergies/Adverse Reactions: codeine [Codeine] Allergy (Mild, Verified 09/14/16 17:08) Nausea and Vomiting Sulfa (Sulfonamide Antibiotics) [Sulfa(Sulfonamide Antibiotics)] Allergy (Mild, Verified 09/14/16 17:08) Nausea and Vomiting adhesive Allergy (Verified 09/14/16 17:08) Home Medications: Omeprazole [Prilosec] 40 mg PO DAILY 11/24/11 [History] Linagliptin [Tradjenta] 5 mg PO DAILY 01/11/15 [History] Carvedilol 3.125 mg [Coreg 3.125 MG] 3.125 mg PO BID 06/08/15 [History] Nitroglycerin 0.4 mg Tablet [Nitrostat 0.4 MG Tablet] 0.4 mg SL UD PRN [History] Dabigatran Etexilate Mesylate [Pradaxa] 150 mg PO BID 03/20/16 [History] Levothyroxine Sodium 100 Mcg [Synthroid 100 Mcg] 600 mcg PO DAILY 03/20/16 [History] Morphine Sulfate [Morphine Sulfate ER] 30 mg PO BIDPRN PRN 03/20/16 [History] Solifenacin Succinate [Vesicare] 10 mg PO DAILY 03/20/16 [History] Fluconazole 100 mg [Diflucan 100 MG] 100 mg PO DAILY 09/14/16 [History] Furosemide 20 mg [Lasix 20 mg] 20 mg PO DAILY 09/14/16 [History] Hx Tetanus, Diphtheria Vaccination/Date Given: Yes Hx Influenza Vaccination/Date Given: Yes Hx Pneumococcal Vaccination/Date Given: Yes Immunizations Up to Date: Yes - Review of Systems Constitutional: No Fever, No Chills Eyes: No Symptoms Ears, Nose, & Throat: No Symptoms Respiratory: No Cough, No Dyspnea Cardiac: No Chest Pain, No Edema, No Syncope Abdominal/Gastrointestinal: Vomiting, No Abdominal Pain, No Nausea, No Diarrhea Genitourinary Symptoms: No Dysuria Musculoskeletal: No Back Pain, No Neck Pain Skin: No Rash Neurological: No Dizziness, No Focal Weakness, No Sensory Changes Psychological: No Symptoms Endocrine: No Symptoms All Other Systems: Reviewed and Negative - Past Medical History Pertinent Past Medical History: Yes Neurological History: Migraines, Stroke ENT History: No Pertinent History Cardiac History: Angina, Arrhythmia, Congenital Heart Disease, Coronary Artery Disease, Hypertension Respiratory History: No Pertinent History Endocrine Medical History: Diabetes Type II, Thyroid Cancer Musculoskeletal History: No Pertinent History GI Medical History: GERD, Hernia, Other History: No Pertinent History Psycho-Social History: No Pertinent History Female Reproductive Disorders: Endometriosis Other Medical History: THYROID CA 5 YEARS AGO; A FIB, CAROTID STENOSIS. States IBS or " part of my colon", Has illeostomy. - Past Surgical History Past Surgical History: Yes Neuro Surgical History: No Pertinent History Cardiac: Cardiac Catheterization, Internal Defibrillator, Pacemaker Respiratory: No Pertinent History Gastrointestinal: Appendectomy, Cholecystectomy, Colon Resection, Hernia Repair , Other Genitourinary: No Pertinent History Musculoskeletal: Orthopedic Surgery Female Surgical History: Hysterectomy Other Surgical History: THYROID REMOVED, 40% and 50% blockages found with last heart cath about 4 years ago. ankle surgery d/t break,ileostomy, CVL port removed and replaced, PICC line placed for CVL surgery September 2015. - Social History Smoking Status: Never smoker Exposure to second hand smoke: No Alcohol Use: None Drug Use: none Patient Lives Alone: No Significant Family History: heart disease, cancer, diabetes - Female History Hx Now: No - Nursing Vital Signs Nursing Vital Signs: Initial Vital Signs Temperature 98.6 F Temperature Source Oral Pulse Rate 62 Respiratory Rate 16 Blood Pressure [] 136/79 Pain Intensity 8 - Physical Exam General Appearance: no apparent distress, alert Eye Exam: PERRL/EOMI, eyes nml inspection Ears, Nose, Throat Exam: normal ENT inspection, pharynx normal, moist mucous membranes Neck Exam: normal inspection, non-tender, supple, full range of motion Respiratory Exam: normal breath sounds, lungs clear, No respiratory distress Cardiovascular Exam: regular rate/rhythm, normal heart sounds Gastrointestinal/Abdomen Exam: soft, No tenderness, No mass Back Exam: normal inspection, normal range of motion, No CVA tenderness, No vertebral tenderness Extremity Exam: normal inspection, normal range of motion, pelvis stable Neurologic Exam: alert, oriented x 3, cooperative, normal mood/affect, nml cerebellar function, sensation nml, No motor deficits Skin Exam: normal color, warm, dry SpO2: 95 Oxygen Delivery: Room Air - Course Nursing assessment & vital signs reviewed: Yes - Radiology Exams Abdomen X-ray Interpretation: Reviewed by me, Negative (no air fluid level) Ordered Tests: Active Orders 24 hr Category Date Time Status OBSTR/ACUTE ABDOMEN SERIES Stat Exams 09/14/16 17:30 Taken Medication Summary Discontinued Medications Generic Name Dose Route Start Last Admin Trade Name Brad PRN Reason Stop Dose Admin Hydromorphone HCl 1 mg 09/14/16 17:34 09/14/16 17:41 Hydromorphone 1 Mg/Ml Ampule IV 09/14/16 17:35 1 mg STAT ONE Administration Hydromorphone HCl Confirm 09/14/16 17:38 Hydromorphone 1 Mg/Ml Ampule Administered 09/14/16 17:39 Dose 1 mg .ROUTE .STK-MED ONE Ondansetron HCl 4 mg 09/14/16 17:30 09/14/16 17:41 Zofran 4 Mg/2 Ml Vial IV 09/14/16 17:31 4 mg STAT ONE Administration Ondansetron HCl Confirm 09/14/16 17:32 Zofran 4 Mg/2 Ml Vial Administered 09/14/16 17:33 Dose 4 mg .ROUTE .STK-MED ONE - Progress Progress: improved Counseled pt/family regarding: diagnosis, need for follow-up - Departure Time of Disposition: 18:27 Departure Disposition: Home Clinical Impression: Vomiting following gastrointestinal surgery Condition: Stable Critical Care Time: No Referrals: CHRIS KAYE NP [Primary Care Provider] - Instructions: Vomiting -- Adult Additional Instructions: Please follow the instructions given to you. Please take your medication as prescribed if given. If symptoms recur or get worse, come back to the emergency room if you cannot reach your primary care physician, or call your primary care physician for an appointment. Again if your symptoms get worse, come back to the emergency room. Thanks for visiting emergency room, and let us take care of you.
[2016-09-14] MEDS ORDERED: Zofran 4 MG/2 ML VIAL ONE (17:32)
[2016-09-14] MEDS ORDERED: Hydromorphone 1 mg/ml Ampule IV ONE (17:34)
[2016-09-14] MEDS ORDERED: Hydromorphone 1 mg/ml Ampule ONE (17:38)
[2016-09-14 17:56] VITALS: BP 136/79; PULSE 62
--- NOTE | 2016-09-14 22:17 | XRAY ---
Indication: Left-sided abdominal pain. Small bowel obstruction surgery 3 weeks ago. Comparison: Abdomen exam of July 23, 2016. 2 views of the abdomen again demonstrates diffuse scattered surgical clips, pelvic suture material, and right lower quadrant ostomy. No focal bowel dilatation, obstruction, or free air. Solid organs are unremarkable. Osseous structures intact again with mild osteopenia and previous L3/L4 kyphoplasty. Single frontal chest clear with right-sided Port-A-Cath and left-sided AICD. Heart is borderline enlarged. Vascularity normal. Bony thorax intact again with mild osteopenia and degenerative changes. Impression: 1. Stable abdominal postsurgical changes. Negative obstruction. 2. Nonacute one view chest with chronic features.
== END 2016-09-14 18:41 | disposition home or self-care (01) ==
LOC: ED 16:57
DX: R11.10 Vomiting, unspecified (principal); Z98.890 Other specified postprocedural states
CPT/HCPCS: 74022; 96374; 96375; 99284; J1170; J2405

== ENCOUNTER 2016-10-10 09:54 | Emergency (ER) | payer MEDICARE ==
[2016-10-10 10:13] VITALS: PULSE 63; O2SAT 97
[2016-10-10] MEDS ORDERED: Hydromorphone 1 mg/ml Ampule IV ONE (10:24)
[2016-10-10] MEDS ORDERED: BENADRYL 50 MG/ML IV ONE (10:24)
[2016-10-10] MEDS ORDERED: Sodium Chloride 0.9% 1000 ML 1,000 ML IV SCH (10:30)
--- NOTE | 2016-10-10 10:31 | ERPHSYRPT ---
- History of Present Illness Time Seen by Provider: 10/10/16 10:08 Source: patient Patient Subjective Stated Complaint: low back pain Triage Nursing Assessment: pt states she saw therese tejeda yesterday for urinary retention. catheter placed. since 199, pt states she has had lower back pain-- chronic for her but 'seems worse than my normal pain even thought it is in the same place as normal' urine noted in cath bag. states had urine sample for test collected yesterday. took morphine pill for pain 0200 this am Physician History: CC: catheter check Hx: 61 y/o patient of ИРИНА Tejeda. She had some urine retention so ALUMINUM MOLDER placed a tierney leg bag yesterday. It has had some drainage but not much. She reports dark urine. She wants catheter removed. She reports chills and was worried about infection in the urine. She has prior colostomy because "everything quit working." She has chronic back pain and is scheduled for myelogram with Dr Hwang. She has prior pacemaker and has DM and CHF. Pain in back is chronic and moderately severe. Some tingling in both hips but not new. Allergies/Adverse Reactions: codeine [Codeine] Allergy (Mild, Verified 10/10/16 10:13) Nausea and Vomiting Sulfa (Sulfonamide Antibiotics) [Sulfa(Sulfonamide Antibiotics)] Allergy (Mild, Verified 10/10/16 10:13) Nausea and Vomiting adhesive Allergy (Verified 10/10/16 10:13) Home Medications: Omeprazole [Prilosec] 40 mg PO DAILY 11/24/11 [History] Linagliptin [Tradjenta] 5 mg PO DAILY 01/11/15 [History] Carvedilol 3.125 mg [Coreg 3.125 MG] 3.125 mg PO BID 06/08/15 [History] Nitroglycerin 0.4 mg Tablet [Nitrostat 0.4 MG Tablet] 0.4 mg SL UD PRN [History] Dabigatran Etexilate Mesylate [Pradaxa] 150 mg PO BID 03/20/16 [History] Levothyroxine Sodium 100 Mcg [Synthroid 100 Mcg] 600 mcg PO DAILY 03/20/16 [History] Morphine Sulfate [Morphine Sulfate ER] 30 mg PO BIDPRN PRN 03/20/16 [History] Solifenacin Succinate [Vesicare] 10 mg PO DAILY 03/20/16 [History] Furosemide 20 mg [Lasix 20 mg] 20 mg PO DAILY 09/14/16 [History] Hx Tetanus, Diphtheria Vaccination/Date Given: Yes Hx Influenza Vaccination/Date Given: Yes Hx Pneumococcal Vaccination/Date Given: Yes Immunizations Up to Date: Yes - Review of Systems Constitutional: Chills, Malaise, No Fever Eyes: No Symptoms Ears, Nose, & Throat: No Symptoms Respiratory: No Cough Cardiac: No Chest Pain Abdominal/Gastrointestinal: Abdominal Pain, No Nausea, No Vomiting Genitourinary Symptoms: Urinary Retention (wearing a catheter) Skin: No Rash Neurological: No Headache All Other Systems: Reviewed and Negative - Past Medical History Pertinent Past Medical History: Yes Neurological History: Migraines, Stroke ENT History: No Pertinent History Cardiac History: Angina, Arrhythmia, Congenital Heart Disease, Coronary Artery Disease, Hypertension Respiratory History: No Pertinent History Endocrine Medical History: Diabetes Type II, Thyroid Cancer Musculoskeletal History: No Pertinent History GI Medical History: GERD, Hernia, Other History: No Pertinent History Psycho-Social History: No Pertinent History Female Reproductive Disorders: Endometriosis Other Medical History: THYROID CA 5 YEARS AGO; A FIB, CAROTID STENOSIS. States IBS or " part of my colon", Has illeostomy. - Past Surgical History Past Surgical History: Yes Neuro Surgical History: No Pertinent History Cardiac: Cardiac Catheterization, Internal Defibrillator, Pacemaker Respiratory: No Pertinent History Gastrointestinal: Appendectomy, Cholecystectomy, Colon Resection, Hernia Repair , Other Genitourinary: No Pertinent History Musculoskeletal: Orthopedic Surgery Female Surgical History: Hysterectomy Other Surgical History: THYROID REMOVED, 40% and 50% blockages found with last heart cath about 4 years ago. ankle surgery d/t break,ileostomy, CVL port removed and replaced, PICC line placed for CVL surgery September 2015. ostomy repair due to blockage 09/02 - Social History Smoking Status: Never smoker Exposure to second hand smoke: No Alcohol Use: None Drug Use: none Patient Lives Alone: No Significant Family History: heart disease, cancer, diabetes - Female History Hx Now: No - Nursing Vital Signs Nursing Vital Signs: Initial Vital Signs Temperature 98.6 F Temperature Source Rectal Pulse Rate 63 Respiratory Rate 18 Blood Pressure [] 130/77 Pain Intensity [] 8 Pain Intensity 8 - Nursing Vital Signs Temperature: 98.6 F Temperature Source: Rectal Pulse Rate: 63 Respiratory Rate: 18 Pain Intensity: 8 - Physical Exam General Appearance: alert Eye Exam: PERRL/EOMI Ears, Nose, Throat Exam: moist mucous membranes Neck Exam: normal inspection, non-tender, supple Respiratory Exam: normal breath sounds Cardiovascular Exam: regular rate/rhythm Gastrointestinal Exam: soft, other (diffuse discomfort, functioning colostomy), No distention, No mass, No guarding Rectal Exam: normal rectal tone Back Exam: normal inspection, other (diffuse low back discomfort) Extremity Exam: normal inspection, normal range of motion Neurologic Exam: alert, oriented x 3, cooperative, laboratory veterinarian II-XII nml as tested, sensation nml, No motor deficits Skin Exam: warm, dry, No rash SpO2 Interpretation: normal SpO2: 97 Oxygen Delivery: Room Air - Course Nursing assessment & vital signs reviewed: Yes - Radiology Ultrasound Exam renal Ultrasound: Other (negative per RDMS) Ordered Tests: Active Orders 24 hr Category Date Time Status IV Insertion STAT Care 10/10/16 10:14 Active Rectal Temperature STAT Care 10/10/16 10:24 Active KIDNEY [US] Stat Exams 10/10/16 10:25 Completed CBC W DIFF Stat Lab 10/10/16 10:20 Completed CMP Stat Lab 10/10/16 10:20 Completed CULTURE,URINE Stat Lab 10/10/16 10:15 Received Lactic Acid Stat Lab 10/10/16 10:30 Completed UA W/RFX UR CULTURE Stat Lab 10/10/16 10:15 Completed Medication Summary Generic Name Dose Route Start Last Admin Trade Name Freq PRN Reason Stop Dose Admin Sodium Chloride 1,000 mls @ 100 mls/hr 10/10/16 10:30 10/10/16 10:43 Sodium Chloride 0.9% 1000 Ml IV 11/09/16 10:29 100 mls/hr .Q10H JUSTIN Administration Discontinued Medications Generic Name Dose Route Start Last Admin Trade Name Freq PRN Reason Stop Dose Admin Diphenhydramine HCl 25 mg 10/10/16 10:24 Benadryl 50 Mg/Ml IV 10/10/16 10:25 STAT ONE Diphenhydramine HCl Confirm 10/10/16 10:52 Benadryl 50 Mg/Ml Administered 10/10/16 10:53 Dose 50 mg .ROUTE .STK-MED ONE Hydromorphone HCl 1 mg 10/10/16 10:24 Hydromorphone 1 Mg/Ml Ampule IV 10/10/16 10:25 STAT ONE Hydromorphone HCl Confirm 10/10/16 10:53 Hydromorphone 1 Mg/Ml Ampule Administered 10/10/16 10:54 Dose 1 mg .ROUTE .STK-MED ONE Lab/Rad Data: Laboratory Result Diagrams 10/10/16 10:20 10/10/16 10:20 Laboratory Results 10/10/16 10/10/16 10/10/16 Range/Units 10:30 10:20 10:20 WBC 7.0 (4.0-10.5) K/mm3 RBC 4.78 (4.1-5.4) M/mm3 Hgb 13.1 (12.0-16.0) gm/dl Hct 40.1 (35-47) % MCV 83.9 (78-100) fl MCH 27.4 (26-32) pg MCHC 32.7 (32-36) g/dl RDW 20.1 H (11.5-14.0) % Plt Count 240 (150-450) K/mm3 MPV 9.8 H (6-9.5) fl Gran % 60.4 (36.0-66.0) % Lymphocytes % 31.1 (24.0-44.0) % Monocytes % 6.3 (0.0-12.0) % Eosinophils % 1.6 (0.00-5.0) % Basophils % 0.6 (0.0-0.4) % Basophils # 0.04 (0-0.4) Sodium 139 (136-145) mEq/L Potassium 4.0 (3.5-5.1) mEq/L Chloride 105 (98-107) mEq/L Carbon Dioxide 23.1 (21-32) mEq/L Anion Gap 14.6 (5-15) MEQ/L BUN 13 (9-20) mg/dL Creatinine 0.99 (0.55-1.30) mg/dl Estimated GFR > 60 ML/MIN Glucose 97 (70-110) MG/DL Lactic Acid 1.3 (0.4-2.0) Calcium 9.1 (8.5-10.1) mg/dL Total Bilirubin 0.80 (0.2-1.0) mg/dL AST 20 (15-37) U/L ALT 9 L (12-78) U/L Alkaline Phosphatase 99 (46-116) U/L Serum Total Protein 7.4 (6.4-8.2) gm/dL Albumin 3.6 (3.4-5.0) g/dL Ur Collection Type Urine Color (YELLOW) Urine Appearance (CLEAR) Urine pH (5-6) Ur Specific [place] (1.005-1.025) Urine Protein (Negative) Urine Glucose (UA) (NEGATIVE) mg/dL Urine Ketones (NEGATIVE) Urine Nitrite (NEGATIVE) Urine Bilirubin (NEGATIVE) Urine Urobilinogen (0-1) mg/dL Urine WBC (Auto) (NEGATIVE) Urine RBC (Auto) (0-5) Hemal/ul Specimen Received 10/10/16 Range/Units 10:15 WBC (4.0-10.5) K/mm3 RBC (4.1-5.4) M/mm3 Hgb (12.0-16.0) gm/dl Hct (35-47) % MCV (78-100) fl MCH (26-32) pg MCHC (32-36) g/dl RDW (11.5-14.0) % Plt Count (150-450) K/mm3 MPV (6-9.5) fl Gran % (36.0-66.0) % Lymphocytes % (24.0-44.0) % Monocytes % (0.0-12.0) % Eosinophils % (0.00-5.0) % Basophils % (0.0-0.4) % Basophils # (0-0.4) Sodium (136-145) mEq/L Potassium (3.5-5.1) mEq/L Chloride (98-107) mEq/L Carbon Dioxide (21-32) mEq/L Anion Gap (5-15) MEQ/L BUN (9-20) mg/dL Creatinine (0.55-1.30) mg/dl Estimated GFR ML/MIN Glucose (70-110) MG/DL Lactic Acid (0.4-2.0) Calcium (8.5-10.1) mg/dL Total Bilirubin (0.2-1.0) mg/dL AST (15-37) U/L ALT (12-78) U/L Alkaline Phosphatase (46-116) U/L Serum Total Protein (6.4-8.2) gm/dL Albumin (3.4-5.0) g/dL Ur Collection Type CATH Urine Color YELLOW (YELLOW) Urine Appearance SLIGHTLY CLOUDY (CLEAR) Urine pH 6.0 (5-6) Ur Specific [place] >=1.030 (1.005-1.025) Urine Protein 100 (Negative) Urine Glucose (UA) NEGATIVE (NEGATIVE) mg/dL Urine Ketones NEGATIVE (NEGATIVE) Urine Nitrite POSITIVE (NEGATIVE) Urine Bilirubin NEGATIVE (NEGATIVE) Urine Urobilinogen 0.2 (0-1) mg/dL Urine WBC (Auto) SMALL (NEGATIVE) Urine RBC (Auto) LARGE (0-5) Hemal/ul Specimen Received 10/10/16 1015 - Progress Progress Note: 10/10/16 11:19 The patient was advised she can not drive with pain medication. She called her to take her home. She wants tierney out. She will take keflex for UTI. Advised keep her [facility] appt tomorrow for recheck. Counseled pt/family regarding: lab results, diagnosis, need for follow-up, rad results - Departure Time of Disposition: 11:20 Departure Disposition: Home Clinical Impression: Urinary retention, UTI (urinary tract infection) Condition: Stable Critical Care Time: No Referrals: CHRIS TEJEDA NP [Primary Care Provider] - Instructions: Urinary Tract Infection (UTI), Urinary Retention in Women Additional Instructions: No driving today and stay with family. Rx keflex. Keep your appointment at [facility] tomorrow. Return for problems or concerns. Prescriptions: Cephalexin Mh 500 mg [Keflex 500 mg] 1 cap PO QID #28 capsule
[2016-10-10] MEDS ORDERED: Sodium Chloride 0.9% 1000 ML 1,000 ML ONE (10:37)
[2016-10-10 10:43] LABS: ADD URINE CULTURE? YES (NO); COMPLETE URINE MICROSCOPIC? NO; Collection Type CATH
[2016-10-10] MEDS ORDERED: BENADRYL 50 MG/ML ONE (10:52)
[2016-10-10] MEDS ORDERED: Hydromorphone 1 mg/ml Ampule ONE (10:53)
[2016-10-10 11:06] LABS: BASOPHIL % 0.6 % (0.0-0.4); Eosinophil % 1.6 % (0.00-5.0); Granulocytes % 60.4 % (36.0-66.0); Lymphocytes % 31.1 % (24.0-44.0); Mean Cell Volume 83.9 fl (78-100); Mean Corpuscular Hemoglobin 27.4 pg (26-32); Mean Platelet Volume 9.8 fl (6-9.5); Monocytes % 6.3 % (0.0-12.0); Platelet Count 240 K/mm3 (150-450); Red Blood Count 4.78 M/mm3 (4.1-5.4); Red Cell Distribution Width 20.1 % (11.5-14.0)
[2016-10-10 11:14] LABS: ALBUMIN 3.6 g/dL (3.4-5.0); ALKALINE PHOSPHATASE 99 U/L (46-116); ANION GAP 14.6 MEQ/L (5-15); BLOOD UREA NITROGEN 13 mg/dL (9-20); CHLORIDE 105 mEq/L (98-107); Carbon Dioxide 23.1 mEq/L (21-32); Glucose 97 MG/DL (70-110); SGOT/AST 20 U/L (15-37); SGPT/ALT 9 U/L (12-78); SODIUM 139 mEq/L (136-145); Total Protein 7.4 gm/dL (6.4-8.2)
--- NOTE | 2016-10-10 11:19 | XRAY ---
Indication: Urinary retention. Two-dimensional renal sonogram performed. Comparison: February 14, 2016. Both kidneys again normal in reniform shape with normal color perfusion. Right kidney measures 10.7 x 5.3 x 5.4 cm and the left measures 10.9 x 5.3 x 4.4 cm. No suspicious renal mass, hydronephrosis, or perinephric fluid. Cortical medullary differentiation maintained without cortical thinning. Urinary bladder is completely empty. Impression: Stable negative renal sonogram.
[2016-10-10 11:58] VITALS: BP 124/70
== END 2016-10-10 11:55 | disposition home or self-care (01) ==
LOC: ED 09:54
DX: R33.9 Retention of urine, unspecified (principal); N39.0 Urinary tract infection, site not specified
CPT/HCPCS: 36000; 36415; 76770; 80053; 81002; 83605; 85025; 87077; 87086; 87186; 96360; 96374; 96375; 99284; J1170; J1200; J1642

== ENCOUNTER 2016-10-21 19:33 | Emergency (ER) | payer MEDICARE ==
--- NOTE | 2016-10-21 19:57 | ERPHSYRPT ---
- History of Present Illness Time Seen by Provider: 10/21/16 19:41 Source: patient Patient Subjective Stated Complaint: Pt sts left leg pain worst posterior leg behind knee and radiating down leg since . Sts pain has increased. Also noted some swelling from knee down and redness. Pt sts hx of blood clots in left leg in the past. Last blood clot was in August. Pt takes pradaxa daily for this. Pt rates pain 8/10, describes as throbbing in nature. Also c/o 2 "knots" medial aspect left leg at knee. Pt sts always feels short of breath but no worse than normal. Denies CP. No trauma or injury to the leg. Sts been off of pradaxa x [address] myelogram she had for her back. Triage Nursing Assessment: Pt alert, oriented, answers all questions appropriately. Skin p/w/d, resps non-labored. Lung sounds CTA bilat non- labored. Pt ambulatory to tx room steady gait noted. Non-pitting edema noted to LLE with redness. Tenderness with light palpation noted. + DP noted bilat. Physician History: CC: left leg pain/swelling Hx; 61 y/o patient with hx of DVT in the past X 2. She had CT myelogram last week on . Was off pradaxa for 5 days prior. Restarted Pradaxa Friday. Over the weekend she started having pain and swelling in the left leg from the groin down. No chest pain or dyspnea. No fever or chills or redness. She is now back on the pradaxa. She has morphine to take for pain but has not taken it today. Allergies/Adverse Reactions: codeine [Codeine] Allergy (Mild, Verified 10/21/16 19:39) Nausea and Vomiting Sulfa (Sulfonamide Antibiotics) [Sulfa(Sulfonamide Antibiotics)] Allergy (Mild, Verified 10/21/16 19:39) Nausea and Vomiting adhesive Allergy (Verified 10/21/16 19:39) Home Medications: Omeprazole [Prilosec] 40 mg PO DAILY 11/24/11 [History] Linagliptin [Tradjenta] 5 mg PO DAILY 01/11/15 [History] Carvedilol 3.125 mg [Coreg 3.125 MG] 3.125 mg PO BID 06/08/15 [History] Nitroglycerin 0.4 mg Tablet [Nitrostat 0.4 MG Tablet] 0.4 mg SL UD PRN [History] Dabigatran Etexilate Mesylate [Pradaxa] 150 mg PO BID 03/20/16 [History] Levothyroxine Sodium 100 Mcg [Synthroid 100 Mcg] 300 mcg PO DAILY 03/20/16 [History] Morphine Sulfate [Morphine Sulfate ER] 30 mg PO BIDPRN PRN 03/20/16 [History] Solifenacin Succinate [Vesicare] 10 mg PO DAILY 03/20/16 [History] Linagliptin [Tradjenta] 5 mg PO DAILY 10/21/16 [History] Hx Tetanus, Diphtheria Vaccination/Date Given: Yes Hx Influenza Vaccination/Date Given: Yes Hx Pneumococcal Vaccination/Date Given: Yes Immunizations Up to Date: Yes - Review of Systems Constitutional: No Fever, No Chills Eyes: No Symptoms Ears, Nose, & Throat: No Symptoms Respiratory: No Cough, No Dyspnea Cardiac: No Chest Pain, No Syncope Abdominal/Gastrointestinal: No Abdominal Pain Genitourinary Symptoms: No Symptoms Musculoskeletal: Back Pain (chronic) Skin: No Cellulitis, No Rash Neurological: Parasthesia (legs), No Headache All Other Systems: Reviewed and Negative - Past Medical History Pertinent Past Medical History: Yes Neurological History: Migraines, Stroke ENT History: No Pertinent History Cardiac History: Angina, Arrhythmia, Congenital Heart Disease, Coronary Artery Disease, Hypertension Respiratory History: No Pertinent History Endocrine Medical History: Diabetes Type II, Thyroid Cancer Musculoskeletal History: No Pertinent History GI Medical History: GERD, Hernia, Other History: No Pertinent History Psycho-Social History: No Pertinent History Female Reproductive Disorders: Endometriosis Other Medical History: THYROID CA 5 YEARS AGO; A FIB, CAROTID STENOSIS. States IBS or " part of my colon", Has illeostomy. - Past Surgical History Past Surgical History: Yes Neuro Surgical History: No Pertinent History Cardiac: Cardiac Catheterization, Internal Defibrillator, Pacemaker Respiratory: No Pertinent History Gastrointestinal: Appendectomy, Cholecystectomy, Colon Resection, Hernia Repair , Other Genitourinary: No Pertinent History Musculoskeletal: Orthopedic Surgery Female Surgical History: Hysterectomy Other Surgical History: THYROID REMOVED, 40% and 50% blockages found with last heart cath about 4 years ago. ankle surgery d/t break,ileostomy, CVL port removed and replaced, PICC line placed for CVL surgery September 2015. ostomy repair due to blockage 09/02 - Social History Smoking Status: Never smoker Exposure to second hand smoke: No Alcohol Use: None Drug Use: none Patient Lives Alone: No Significant Family History: heart disease, cancer, diabetes - Female History Hx Now: No - Nursing Vital Signs Nursing Vital Signs: Initial Vital Signs Temperature 97.7 F Temperature Source Oral Pulse Rate 76 Respiratory Rate 18 Blood Pressure [] 118/70 Pain Intensity 2 - Physical Exam General Appearance: alert Eyes, Ears, Nose, Throat Exam: normal ENT inspection, moist mucous membranes Neck Exam: normal inspection, non-tender, supple Cardiovascular/Respiratory Exam: regular rate/rhythm Neuro/Tendon Exam: normal sensation, normal motor functions Mental Status Exam: alert, oriented x 3, cooperative Skin Exam: warm, dry, No rash SpO2 Interpretation: normal SpO2: 99 Oxygen Delivery: Room Air Comments: left leg has some diffuse swelling, no redness, some tenderness. pulse intact. No cellulitis. - Course Nursing assessment & vital signs reviewed: Yes EKG Interpreted by Me: RATE (62 pacemaker) - Radiology Ultrasound Exam left leg Ultrasound: Other (per tech: + DVT starts at CFV and runs down to PTV in left lerg. Superficial thrombus in distal thigh/prox calf.) Ordered Tests: Active Orders 24 hr Category Date Time Status EKG-ER Only STAT Care 10/21/16 20:55 Active IV Insertion STAT Care 10/21/16 20:55 Active Wilmar Jessicae, Apply ROUTINE Care 10/21/16 21:51 Active VENOUS UNILAT/LIMITED EXTREMIT [US] Stat Exams 10/21/16 19:51 Taken CBC W DIFF Stat Lab 10/21/16 21:09 Completed CMP Stat Lab 10/21/16 21:09 Completed PROTIME WITH INR Stat Lab 10/21/16 21:09 Completed PTT Stat Lab 10/21/16 21:09 Completed Medication Summary Generic Name Dose Route Start Last Admin Trade Name Freq PRN Reason Stop Dose Admin Sodium Chloride 1,000 mls @ 50 mls/hr 10/21/16 21:00 10/21/16 21:14 Sodium Chloride 0.9% 1000 Ml IV 11/20/16 20:59 50 mls/hr .Q20H JUSTIN Administration Morphine Sulfate 5 mg 10/21/16 21:51 Morphine Sulfate 10 Mg/Ml IV 10/21/16 21:52 STAT ONE Discontinued Medications Generic Name Dose Route Start Last Admin Trade Name Brad PRN Reason Stop Dose Admin Diphenhydramine HCl 25 mg 10/21/16 20:56 10/21/16 21:14 Benadryl 50 Mg/Ml IV 10/21/16 20:57 25 mg STAT ONE Administration Diphenhydramine HCl Confirm 10/21/16 21:11 Benadryl 50 Mg/Ml Administered 10/21/16 21:12 Dose 50 mg .ROUTE .STK-MED ONE Morphine Sulfate 8 mg 10/21/16 20:55 10/21/16 21:14 Morphine Sulfate 10 Mg/Ml IV 10/21/16 20:56 8 mg STAT ONE Administration Morphine Sulfate Confirm 10/21/16 21:12 Morphine Sulfate 10 Mg/Ml Administered 10/21/16 21:13 Dose 10 mg .ROUTE .STK-MED ONE Lab/Rad Data: Laboratory Result Diagrams 10/21/16 21:09 10/21/16 21:09 Laboratory Results 10/21/16 10/21/16 10/21/16 Range/Units 21:09 21:09 21:09 WBC 8.4 (4.0-10.5) K/mm3 RBC 4.34 (4.1-5.4) M/mm3 Hgb 12.0 (12.0-16.0) gm/dl Hct 36.9 (35-47) % MCV 85.0 (78-100) fl MCH 27.6 (26-32) pg MCHC 32.5 (32-36) g/dl RDW 19.6 H (11.5-14.0) % Plt Count 257 (150-450) K/mm3 MPV 9.5 (6-9.5) fl Gran % 59.3 (36.0-66.0) % Lymphocytes % 31.7 (24.0-44.0) % Monocytes % 5.5 (0.0-12.0) % Eosinophils % 2.9 (0.00-5.0) % Basophils % 0.6 (0.0-0.4) % Basophils # 0.05 (0-0.4) INR 1.00 (0.8-3.0) APTT 47.7 H (25.3-37.0) SECONDS Sodium 135 L (136-145) mEq/L Potassium 4.2 (3.5-5.1) mEq/L Chloride 104 (98-107) mEq/L Carbon Dioxide 21.5 (21-32) mEq/L Anion Gap 14.1 (5-15) MEQ/L BUN 12 (9-20) mg/dL Creatinine 1.07 (0.55-1.30) mg/dl Estimated GFR 56 ML/MIN Glucose 100 (70-110) MG/DL Calcium 8.9 (8.5-10.1) mg/dL Total Bilirubin 0.30 (0.2-1.0) mg/dL AST 17 (15-37) U/L ALT 8 L (12-78) U/L Alkaline Phosphatase 101 (46-116) U/L Serum Total Protein 7.6 (6.4-8.2) gm/dL Albumin 3.3 L (3.4-5.0) g/dL - Progress Progress Note: 10/21/16 19:57 She has had labs recently. Will get ultrasound to assess for recurrence of DVT while she was off pradaxa. 10/21/16 21:[address] Altman for Kurt. He advised since patient had been off pradaxa for procedure as provoking incident, continue pradaxa 150 BID and follow up. 10/21/16 21:52 Pt stable. Morphine given for pain. Advised patient she can not drive home after medication. She agrees with pradaxa, wilmar hose, OP follow up. Counseled pt/family regarding: lab results, diagnosis, need for follow-up - Departure Time of Disposition: 21:52 Departure Disposition: Home Clinical Impression: Recurrent deep vein thrombosis (DVT) of left lower extremity, Chronic pain syndrome Condition: Stable Critical Care Time: No Referrals: KEYA KUMAR [CONSULTING PHYSICIAN] - Instructions: Deep Vein Thrombosis, Wear WILMAR Hose, Morphine Sulfate. Additional Instructions: Rest. Continue Pradaxa 150mg twice a day. Elevate legs. WILMAR hose. See Dr Hicks this week. Return for problems or concerns. No driving tonite as you had morphine pain medication which is a sedative.
[2016-10-21] MEDS ORDERED: MORPHINE SULFATE 10 MG/ML IV ONE ×2 (20:55→21:51)
[2016-10-21] MEDS ORDERED: BENADRYL 50 MG/ML IV ONE (20:56)
[2016-10-21] MEDS ORDERED: Sodium Chloride 0.9% 1000 ML 1,000 ML IV SCH (21:00)
[2016-10-21] MEDS ORDERED: BENADRYL 50 MG/ML ONE (21:11)
[2016-10-21] MEDS ORDERED: Sodium Chloride 0.9% 1000 ML 1,000 ML ONE (21:12)
[2016-10-21] MEDS ORDERED: MORPHINE SULFATE 10 MG/ML ONE (21:12)
[2016-10-21 21:13] LABS: BASOPHIL % 0.6 % (0.0-0.4); Eosinophil % 2.9 % (0.00-5.0); Granulocytes % 59.3 % (36.0-66.0); Lymphocytes % 31.7 % (24.0-44.0); Mean Corpuscular Hemoglobin 27.6 pg (26-32); Mean Platelet Volume 9.5 fl (6-9.5); Monocytes % 5.5 % (0.0-12.0); Platelet Count 257 K/mm3 (150-450); Red Blood Count 4.34 M/mm3 (4.1-5.4); Red Cell Distribution Width 19.6 % (11.5-14.0); White Blood Count 8.4 K/mm3 (4.0-10.5)
[2016-10-21 21:31] LABS: PROTIME 11.2 SECONDS (9.95-12.35)
[2016-10-21 21:34] LABS: PTT 47.7 SECONDS (25.3-37.0)
[2016-10-21 21:35] VITALS: PULSE 76
[2016-10-21 21:39] LABS: ALBUMIN 3.3 g/dL (3.4-5.0); ANION GAP 14.1 MEQ/L (5-15); BILIRUBIN,TOTAL 0.3 mg/dL (0.2-1.0); Carbon Dioxide 21.5 mEq/L (21-32); Potassium 4.2 mEq/L (3.5-5.1); Total Protein 7.6 gm/dL (6.4-8.2)
[2016-10-21 22:55] VITALS: BP 114/70; O2SAT 97
--- NOTE | 2016-10-22 09:09 | XRAY ---
Indication: Pain and swelling. Two-dimensional sonogram and color Doppler imaging of the major venous vessels of the left leg was performed. Comparison: March 20, 2016. There is now occluding deep vein thrombosis in the visualized common femoral, superficial femoral, popliteal, and posterior tibial veins. Superficial thrombus seen at the level of the calf. Impression: New extensive left leg DVT. Comment: Preliminary report was given.
== END 2016-10-21 22:55 | disposition home or self-care (01) ==
LOC: ED 19:33
DX: I82.4Z2 Acute embolism and thrombosis of unspecified deep veins of left distal lower extremity (principal); G89.4 Chronic pain syndrome; Z79.899 Other long term (current) drug therapy; M79.605 Pain in left leg; Z86.718 Personal history of other venous thrombosis and embolism; Z79.891 Long term (current) use of opiate analgesic
CPT/HCPCS: 36000; 36415; 80053; 85025; 85610; 85730; 93005; 93971; 96360; 96374; 96375; 99284; J1200; J1642; J2270

== ENCOUNTER 2016-10-23 17:03 | Emergency (ER) | payer MEDICARE ==
[2016-10-23 17:35] VITALS: O2SAT 98
--- NOTE | 2016-10-23 17:42 | ERPHSYRPT ---
- History of Present Illness Time Seen by Provider: 10/23/16 17:30 Source: patient, other (Called by Dr. Duarte/Cardiology with chronic DVT LLE seen in office F/U today. She presents with LLE chronic pain despite chronic pain mendicine. He requests that she [facility] a [facility] of [facility] Exam Limitations: no limitations Physician History: She had been off her Pradaxa for a myelogram and has restarted this. She is out of her chronic pain medicine because she has used it up early. Method of Injury: other (no injury) Quality: constant Severity of Pain-Max: severe Severity of Pain-Current: severe Lower Extremities Pain: leg: left Modifying Factors: Improves With: movement, pain medication Associated Symptoms: none Allergies/Adverse Reactions: codeine [Codeine] Allergy (Mild, Verified 10/23/16 17:36) Nausea and Vomiting Sulfa (Sulfonamide Antibiotics) [Sulfa(Sulfonamide Antibiotics)] Allergy (Mild, Verified 10/23/16 17:36) Nausea and Vomiting adhesive Allergy (Verified 10/23/16 17:36) Home Medications: Omeprazole [Prilosec] 40 mg PO DAILY 11/24/11 [History] Linagliptin [Tradjenta] 5 mg PO DAILY 01/11/15 [History] Carvedilol 3.125 mg [Coreg 3.125 MG] 3.125 mg PO BID 06/08/15 [History] Nitroglycerin 0.4 mg Tablet [Nitrostat 0.4 MG Tablet] 0.4 mg SL UD PRN [History] Dabigatran Etexilate Mesylate [Pradaxa] 150 mg PO BID 03/20/16 [History] Levothyroxine Sodium 100 Mcg [Synthroid 100 Mcg] 300 mcg PO DAILY 03/20/16 [History] Morphine Sulfate [Morphine Sulfate ER] 30 mg PO BIDPRN PRN 03/20/16 [History] Solifenacin Succinate [Vesicare] 10 mg PO DAILY 03/20/16 [History] Hx Tetanus, Diphtheria Vaccination/Date Given: Yes Hx Influenza Vaccination/Date Given: Yes Hx Pneumococcal Vaccination/Date Given: Yes - Review of Systems Constitutional: No Symptoms Eyes: No Symptoms Ears, Nose, & Throat: No Symptoms Respiratory: No Symptoms Cardiac: No Symptoms Abdominal/Gastrointestinal: No Symptoms Genitourinary Symptoms: No Symptoms Skin: No Symptoms Neurological: Headache (chronic since out of her pain meds) Psychological: No Symptoms Endocrine: No Symptoms Hematologic/Lymphatic: Blood Clots Immunological/Allergic: No Symptoms - Past Medical History Pertinent Past Medical History: Yes Neurological History: Migraines, Stroke ENT History: No Pertinent History Cardiac History: Angina, Arrhythmia, Congenital Heart Disease, Coronary Artery Disease, Hypertension Respiratory History: No Pertinent History Endocrine Medical History: Diabetes Type II, Thyroid Cancer Musculoskeletal History: No Pertinent History GI Medical History: GERD, Hernia, Other History: No Pertinent History Psycho-Social History: No Pertinent History Female Reproductive Disorders: Endometriosis Other Medical History: THYROID CA 5 YEARS AGO; A FIB, CAROTID STENOSIS. States IBS or " part of my colon", Has illeostomy. - Past Surgical History Past Surgical History: Yes Neuro Surgical History: No Pertinent History Cardiac: Cardiac Catheterization, Internal Defibrillator, Pacemaker Respiratory: No Pertinent History Gastrointestinal: Appendectomy, Cholecystectomy, Colon Resection, Hernia Repair , Other Genitourinary: No Pertinent History Musculoskeletal: Orthopedic Surgery Female Surgical History: Hysterectomy Other Surgical History: THYROID REMOVED, 40% and 50% blockages found with last heart cath about 4 years ago. ankle surgery d/t break,ileostomy, CVL port removed and replaced, PICC line placed for CVL surgery September 2015. ostomy repair due to blockage 09/02 - Social History Smoking Status: Never smoker Exposure to second hand smoke: No Alcohol Use: None Drug Use: none Patient Lives Alone: No Significant Family History: heart disease, cancer, diabetes - Female History Hx Now: No - Nursing Vital Signs Nursing Vital Signs: Initial Vital Signs Temperature 98.2 F Temperature Source Oral Pulse Rate 66 Respiratory Rate 18 Blood Pressure [Right Arm] 98/78 Pain Intensity 8 - Course Nursing assessment & vital signs reviewed: Yes Ordered Tests: Medication Summary Discontinued Medications Generic Name Dose Route Start Last Admin Trade Name Freq PRN Reason Stop Dose Admin Hydrocodone Bitart/Acetaminophen 1 tab 10/23/16 17:52 [place] 7.5/325 Mg Tab PO 10/23/16 17:53 STAT ONE Hydrocodone Bitart/Acetaminophen 1 tab 10/23/16 17:55 [place] 10/325 Mg Tablet PO 10/23/16 17:56 STAT ONE Enoxaparin Sodium 80 mg 10/23/16 17:51 Enoxaparin Sodium SQ 10/23/16 17:52 STAT ONE - Progress Discussed with : Elvis Will see patient in: office, other (Return to Infusion Center tomorrow for further Lovenox treatment in am ) Counseled pt/family regarding: diagnosis, need for follow-up - Departure Time of Disposition: 17:45 Departure Disposition: Home Clinical Impression: DVT, recurrent, lower extremity, chronic Qualifiers: Laterality: left Qualified Code(s): I82.502 - Chronic embolism and thrombosis of unspecified deep veins of left lower extremity Condition: Stable Critical Care Time: No Referrals: CHRIS KAYE NP [Primary Care Provider] -
[2016-10-23] MEDS ORDERED: ENOXAPARIN SODIUM SQ ONE ×2 (17:51→17:55)
[2016-10-23] MEDS ORDERED: NORCO 7.5/325 MG TAB PO ONE (17:52)
[2016-10-23] MEDS ORDERED: Norco 10/325 MG Tablet PO ONE (17:55)
[2016-10-23] MEDS ORDERED: Norco 10/325 MG Tablet ONE (17:56)
[2016-10-23 18:11] VITALS: BP 126/82; PULSE 65
== END 2016-10-23 18:08 | disposition home or self-care (01) ==
LOC: ED 17:03
DX: I82.502 Chronic embolism and thrombosis of unspecified deep veins of left lower extremity (principal); Z79.01 Long term (current) use of anticoagulants; Z79.899 Other long term (current) drug therapy; Z79.891 Long term (current) use of opiate analgesic; R51 Headache; I25.10 Atherosclerotic heart disease of native coronary artery without angina pectoris; I10 Essential (primary) hypertension; E11.9 Type 2 diabetes mellitus without complications
CPT/HCPCS: 99284; J1650; A9270-GY

== ENCOUNTER 2017-02-11 13:41 | Observation (INO) | payer MEDICARE ==
--- NOTE | 2017-02-11 15:18 | XRAY ---
Indication: Follow-up DVT. Two-dimensional sonogram and cord Doppler imaging of the major venous vessels of the left leg was performed. Comparison: October 21, 2016. Previous extensive occluding left leg deep vein thrombosis has improved. There is now flow seen in the common femoral, deep femoral, popliteal, posterior tibial, and greater saphenous veins with some residual thrombus in these same vessels. Impression: Left leg DVT has improved as detailed.
--- NOTE | 2017-02-11 15:40 | XRAY ---
Indication: Known PE. DVT. Multiple contiguous axial images obtained through the chest using 80 cc Isovue 370 contrast and PE protocol. Comparison: January 11, 2013 There is good opacification of the pulmonary arteries to include the lobar and segmental branches. There is now a small focus of eccentric embolus along the anterior aspect right main pulmonary artery. This further extends into the medial and lateral segmental branches of the right middle lobe with occlusion. No left lung pulmonary embolus. The heart remains enlarged. Aorta is normal in course and caliber. Stable left-sided AICD and right-sided Port-A-Cath. No pathologic mediastinal/hilar lymphadenopathy. Examination of the lung parenchyma demonstrates mild bilateral dependent atelectasis and mild bibasilar fibrosis/scarring. Previous small bilateral effusions and bibasilar subsegmental atelectasis has cleared. Bony thorax intact. Limited upper abdomen again demonstrates epigastric and cholecystectomy surgical clips. Impression: 1. New right main and right middle lobe pulmonary emboli as detailed. No distal pulmonary infarct. 2. Stable cardiomegaly. CTDI 21.98
[2017-02-11] MEDS ORDERED: NovoLOG Insulin SQ PRN (17:00)
[2017-02-11] MEDS ORDERED: NON-FORMULARY ITEM (Cyclobenzaprine Hcl [Flexeril] 5 MG) PO PRN (17:16)
[2017-02-11] MEDS ORDERED: NON-FORMULARY ITEM (Promethazine Hcl [Promethazine Hcl] 12.5 MG) PO PRN (17:16)
[2017-02-11] MEDS ORDERED: Nitrostat 0.4 MG Tablet SL PRN (17:16)
[2017-02-11] MEDS ORDERED: Cyclobenzaprine 10 MG PO PRN (17:25)
[2017-02-11 17:56] LABS: Mean Cell Volume 96.8 fl (78-100); Mean Platelet Volume 9.6 fl (6-9.5); Platelet Count 177 K/mm3 (150-450); Red Blood Count 4.04 M/mm3 (4.1-5.4); Red Cell Distribution Width 14.2 % (11.5-14.0); White Blood Count 8.4 K/mm3 (4.0-10.5)
[2017-02-11 17:57] LABS: Mean Corpuscular Hemoglobin 31.1 pg (26-32)
[2017-02-11 18:17] LABS: ALBUMIN 3.1 g/dL (3.4-5.0); ALKALINE PHOSPHATASE 103 U/L (46-116); ANION GAP 12.3 MEQ/L (5-15); BLOOD UREA NITROGEN 14 mg/dL (9-20); CHLORIDE 106 mEq/L (98-107); Carbon Dioxide 26.2 mEq/L (21-32); Glucose 84 MG/DL (70-110); Potassium 3.3 mEq/L (3.5-5.1); SGOT/AST 26 U/L (15-37); SODIUM 141 mEq/L (136-145)
[2017-02-11 18:29] LABS: SGPT/ALT 19 U/L (12-78)
[2017-02-11 18:33] LABS: TROPONIN < 0.017 ng/ml (0.000-0.056)
[2017-02-11] MEDS: MS CONTIN 60 MG PO SCH (21:45)
[2017-02-11] MEDS: Coreg 3.125 MG PO SCH (21:45)
[2017-02-11] MEDS: ENOXAPARIN SODIUM SQ SCH (21:45)
--- NOTE | 2017-02-12 08:50 | PCM.HP ---
History of Present Illness - Chief Complaint Chief Complaint: PE, DVT LT LEG History of Present Illness: is a 61 year old female pt from [facility] who was diagnosed early this month with R sided PEs and LLE extensive DVT; she was admitted yesterday for increasing LLE pain and swelling and chest pain. She was in [place] earlier this month and was found to have the PEs/DVT and was admitted. Prior to admission she was on Pradaxa, but the week before she left for vacation she had stopped the pradaxa. She did go to that week for LE pain/edema and refused a venous doppler. At the hospital, she insisted on going home although the hospitalist wanted her to stay. She was sent home on lovenox 80mg SQ BID. 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 Dr. Duarte had her follow up with hematology outpatient (Dr. Olson) and she was started on eliquis instead of pradaxa. Two days ago the pt started having increased LLE pain and edema. Pain 8/10 this morning. She also got a red dot on the top of her foot and has some burning pain there. Two days ago in the evening she had R sided non radiating CP, 8/10, with shortness of breath and diaphoresis. It lasted about an hour and resolved when she laid down. She came to yesterday and had a CT chest and LLE ultrasound; however the films from [place] are not available to us for comparison. - Review of Systems Respiratory: Cough (some productive cough), Short Of Breath Cardiac: Chest Pain Abdominal/Gastrointestinal: Nausea, Other (has ostomy; output somewhat less in recent days) Musculoskeletal: Fall (fell to her knee then her bottom last week when airing up her tires) Skin: Other (lesion L foot) Hematologic/Lymphatic: Blood Clots, Easy Bruising All Other Systems: Reviewed and Negative Medications & Allergies Home Medications: Home Medication List Omeprazole [Prilosec] 40 mg PO DAILY 11/24/11 [History Confirmed 02/11/17] Linagliptin [Tradjenta] 5 mg PO DAILY 01/11/15 [History Confirmed 02/11/17] Carvedilol 3.125 mg [Coreg 3.125 MG] 3.125 mg PO BID 06/08/15 [History Confirmed 02/11/17] Nitroglycerin 0.4 mg Tablet [Nitrostat 0.4 MG Tablet] 0.4 mg SL UD PRN [History Confirmed 02/11/17] Levothyroxine Sodium 100 Mcg [Synthroid 100 Mcg] 300 mcg PO DAILY 03/20/16 [History Confirmed 02/11/17] Morphine Sulfate [Morphine Sulfate ER] 60 mg PO HS 03/20/16 [History Confirmed 02/11/17] Solifenacin Succinate [Vesicare] 10 mg PO DAILY 03/20/16 [History Confirmed ] Promethazine HCl 12.5 mg PO Q6-8HPRN PRN #30 tablet 07/29/16 [Rx Confirmed 02/11] Apixaban [Eliquis] 5 mg PO BID 02/11/17 [History Confirmed 02/11/17] Cyclobenzaprine HCl [Flexeril] 5 mg PO TID PRN 02/11/17 [History Confirmed 02/11] Allergies/Adverse Reactions: Allergies Allergy/AdvReac Type Severity Reaction Status Date / Time codeine [Codeine] Allergy Mild Nausea and Verified 10/24/16 08:48 Vomiting Sulfa (Sulfonamide Allergy Mild Nausea and Verified 10/24/16 08:48 Antibiotics) Vomiting [Sulfa(Sulfonamide Antibiotics)] adhesive Allergy Verified 10/24/16 08:48 - Past Medical History Past Medical History: Yes Neurological History: Migraines, Stroke ENT History: No Pertinent History Cardiac History: Angina, Arrhythmia, Congenital Heart Disease, Coronary Artery Disease, Hypertension Respiratory History: No Pertinent History Endocrine Medical History: Diabetes Type II, Thyroid Cancer Musculoskelatal History: No Pertinent History GI Medical History: GERD, Hernia, Other History: No Pertinent History Pyscho-Social History: No Pertinent History Reproductive Disorders: Endometriosis Comment: THYROID CA 5 YEARS AGO; A FIB, CAROTID STENOSIS. States IBS or " part of my colon", Has illeostomy. - Past Surgical History Past Surgical History: Yes Neuro Surgical History: No Pertinent History Cardiac History: Cardiac Catheterization, Internal Defibrillator, Pacemaker Respiratory Surgery: No Pertinent History GI Surgical History: Appendectomy, Cholecystectomy, Colon Resection, Hernia Repair, Other Genitourinary Surgical Hx: No Pertinent History Musculskeletal Surgical Hx: Orthopedic Surgery Female Surgical History: Hysterectomy Other Surgical History: THYROID REMOVED, 40% and 50% blockages found with last heart cath about 4 years ago. ankle surgery d/t break,ileostomy, CVL port removed and replaced, PICC line placed for CVL surgery September 2015. ostomy repair due to blockage 09/02 - Social History Smoking Status: Never smoker Exposure to second hand smoke: No Alcohol: None Drug Use: none Significant Family History: heart disease, cancer, diabetes - Physical Exam Vital Signs: Vital Signs - 24 hr Temp Pulse Resp BP Pulse Ox 02/12/17 04:00 14 02/12/17 03:57 97.7 F 60 14 105/55 92 L 02/12/17 00:00 17 02/11/17 23:37 98.1 F 65 17 101/56 92 L 02/11/17 20:47 98.1 F 63 20 106/54 02/11/17 20:00 20 02/11/17 17:06 98.4 F 62 18 129/60 97 02/11/17 16:47 98.4 F 62 18 129/60 97 General Appearance: no apparent distress, obese Neurologic Exam: alert, oriented x 3 Eye Exam: eyes nml inspection Ears, Nose, Throat Exam: moist mucous membranes Neck Exam: normal inspection, non-tender, No lymphadenopathy Respiratory Exam: normal breath sounds, No crackles/rales, No rhonchi, No wheezing Cardiovascular Exam: regular rate/rhythm, normal heart sounds, No murmur Gastrointestinal/Abdomen Exam: soft, normal bowel sounds, other (ostomy present RLQ), No tenderness, No distention Back Exam: normal inspection Extremity Exam: other (bilat WILMAR hose in place, when partially removed LLE with 1+ pitting edema, scattered bruising. Dorsum of L foot with approx 1x0.8cm mildly erythematous macule, no surrounding erythema, no induration/exudate) Results - Labs Lab/Micro Results: Accuchecks Date 02/12/17 Date 02/11/17 Time 07:30 Time 22:00 Accucheck Value: 98 Accucheck Value: 114 Lab Results-Last 24 Hours 02/11/17 02/11/17 Range/Units 17:46 17:46 WBC 8.4 (4.0-10.5) K/mm3 RBC 4.04 L (4.1-5.4) M/mm3 Hgb 12.6 (12.0-16.0) gm/dl Hct 39.1 (35-47) % MCV 96.8 (78-100) fl MCH 31.1 (26-32) pg MCHC 32.2 (32-36) g/dl RDW 14.2 H (11.5-14.0) % Plt Count 177 (150-450) K/mm3 MPV 9.6 H (6-9.5) fl Sodium 141 (136-145) mEq/L Potassium 3.3 L (3.5-5.1) mEq/L Chloride 106 (98-107) mEq/L Carbon Dioxide 26.2 (21-32) mEq/L Anion Gap 12.3 (5-15) MEQ/L BUN 14 (9-20) mg/dL Creatinine 0.80 (0.55-1.30) mg/dl Estimated GFR > 60 ML/MIN Glucose 84 (70-110) MG/DL Calcium 9.2 (8.5-10.1) mg/dL Total Bilirubin 0.70 (0.2-1.0) mg/dL AST 26 (15-37) U/L ALT 19 (12-78) U/L Alkaline Phosphatase 103 (46-116) U/L Troponin I < 0.017 (0.000-0.056) ng/ml Serum Total Protein 7.0 (6.4-8.2) gm/dL Albumin 3.1 L (3.4-5.0) g/dL Accuchecks Date 02/12/17 Date 02/11/17 Time 07:30 Time 22:00 Accucheck Value: 98 Accucheck Value: 114 - Radiology Impressions Radiology Exams & Impressions: Radiology Procedures Category Date Time Status CHEST WITH CONTRAST [CT] Routine Exams 02/11/17 Completed VENOUS UNILAT/LIMITED EXTREMIT [US] Routine Exams 02/11/17 Completed Assessment/Plan (1) Pulmonary emboli Current Visit: Yes Status: Acute Qualifiers: Pulmonary embolism type: other Chronicity: chronic Acute cor pulmonale presence: without acute cor pulmonale Qualified Code(s): I27.82 - Chronic pulmonary embolism Assessment & Plan: Radiology is requesting the films, Dr. Rome will compare side by side - I did discuss the case with him yesterday. Until we know if PEs are new, will continue lovenox 80mg SQ BID. If new findings will need to start pt on coumadin per Dr. Duarte. Code(s): I26.99 - OTHER PULMONARY EMBOLISM WITHOUT ACUTE COR PULMONALE (2) DVT, recurrent, lower extremity, chronic Current Visit: No Status: Chronic Qualifiers: Laterality: left Qualified Code(s): I82.502 - Chronic embolism and thrombosis of unspecified deep veins of left lower extremity Code(s): I82.509 - CHRONIC EMBOLISM AND THOMBOS UNSP DEEP VN UNSP LOW EXTRM (3) Atrial fibrillation Current Visit: No Status: Chronic Qualifiers: Atrial fibrillation type: paroxysmal Qualified Code(s): I48.0 - Paroxysmal atrial fibrillation Code(s): I48.91 - UNSPECIFIED ATRIAL FIBRILLATION
[2017-02-12] MEDS: Protonix 40MG Tablet PO SCH (08:57)
[2017-02-12] MEDS: ENOXAPARIN SODIUM SQ SCH ×2 (08:58→22:24)
[2017-02-12] MEDS: SYNTHROID 150 MCG PO SCH (08:58)
[2017-02-12] MEDS: Januvia 50 MG PO SCH (08:58)
[2017-02-12] MEDS: Coreg 3.125 MG PO SCH ×2 (08:58→22:24)
[2017-02-12] MEDS: Ditropan 5 MG PO SCH ×2 (08:58→22:24)
[2017-02-12] MEDS: MS CONTIN 30 MG PO PRN (09:07)
[2017-02-12] MEDS ORDERED: NON-FORMULARY ITEM (Solifenacin Succinate [Vesicare] 10 MG) PO SCH (10:00)
[2017-02-12] MEDS ORDERED: NON-FORMULARY ITEM (Omeprazole [Prilosec] 40 MG) PO SCH (10:00)
[2017-02-12] MEDS ORDERED: FLUCELVAX QUAD 2017-2018 SYR IM ONE (10:00)
[2017-02-12] MEDS: MORPHINE SULFATE 10 MG/ML IV PRN (11:37)
[2017-02-12] MEDS: Cyclobenzaprine 10 MG PO PRN (16:28)
[2017-02-12] MEDS: MS CONTIN 60 MG PO SCH (22:24)
[2017-02-13] MEDS: MORPHINE SULFATE 10 MG/ML IV PRN ×2 (02:21→13:04)
[2017-02-13 06:30] LABS: ANION GAP 10.1 MEQ/L (5-15); BLOOD UREA NITROGEN 13 mg/dL (9-20); CHLORIDE 107 mEq/L (98-107); Carbon Dioxide 29.6 mEq/L (21-32); Glucose 105 MG/DL (70-110); SODIUM 143 mEq/L (136-145)
[2017-02-13] MEDS: Coreg 3.125 MG PO SCH ×2 (08:26→21:18)
[2017-02-13] MEDS: PHENERGAN 25 MG PO PRN (08:26)
[2017-02-13] MEDS: Protonix 40MG Tablet PO SCH (08:27)
[2017-02-13] MEDS: SYNTHROID 150 MCG PO SCH (08:27)
[2017-02-13] MEDS: ENOXAPARIN SODIUM SQ SCH ×2 (08:27→21:14)
[2017-02-13] MEDS: Januvia 50 MG PO SCH (08:27)
[2017-02-13] MEDS: Ditropan 5 MG PO SCH ×2 (08:27→21:14)
[2017-02-13] MEDS: MS CONTIN 30 MG PO PRN (08:37)
--- NOTE | 2017-02-13 08:39 | PCM.NOTE ---
Date and Time: 02/13/17 08 Subjective Assessment: Pt's leg edema has decreased, but she still continues to have pain. Required morphine IV at 2 am and having more pain now. - Review of Systems Constitutional: No Fever Musculoskeletal: Other (leg pain, decreased edema) Objective Exam General Appearance: no apparent distress, alert Neurologic Exam: oriented x 3, cooperative Skin Exam: normal color, warm, dry Eye Exam: eyes nml inspection Respiratory Exam: normal breath sounds, lungs clear, No crackles/rales, No rhonchi, No wheezing Cardiovascular Exam: regular rate/rhythm, normal heart sounds, No murmur Extremity Exam: other (LLE - decreased edema, mildly ttp, palpable cord medial to the knee) Back Exam: normal inspection OBJECTIVE DATA Vital Signs: Vital Signs - 24 hr Temp Pulse Resp BP Pulse Ox 02/13/17 07:14 94 L 02/13/17 06:56 98.1 F 61 16 120/58 91 L 02/13/17 04:00 16 02/13/17 03:29 97.9 F 60 16 109/55 93 L 02/13/17 00:00 16 02/12/17 23:42 98 F 64 16 95/53 95 02/12/17 20:00 16 02/12/17 19:17 95 02/12/17 19:10 97.9 F 63 16 111/53 97 02/12/17 16:00 98.5 F 60 20 111/61 96 02/12/17 12:44 98 02/12/17 12:00 18 02/12/17 11:54 95 02/12/17 11:47 98.2 F 61 16 101/55 90 L Oxygen-Last 24 hours O2 Percentage 2 Liters = 28% O2 Percentage 2 Liters = 28% Pain Assessment - Last Documented Pain Intensity 6 Pain Scale Used 0-10 Pain Scale Intake and Output: Intake & Output 02/10/17 02/11/17 02/12/17 02/13/17 11:59 11:59 11:59 11:59 Intake Total 1180 1200 Output Total 0 Balance 1180 1200 Weight 88.859 kg Lab Results: Accuchecks Date 02/12/17 Date 02/12/17 Time 21:00 Time 16:17 Accucheck Value: 110 Accucheck Value: 124 Accucheck Value: 168 Accucheck Value: 111 Lab Results-Last 24 Hours 02/13/17 02/13/17 02/13/17 Range/Units 05:05 05:25 05:25 Sodium 143 (136-145) mEq/L Potassium 4.0 (3.5-5.1) mEq/L Chloride 107 (98-107) mEq/L Carbon Dioxide 29.6 (21-32) mEq/L Anion Gap 10.1 (5-15) MEQ/L BUN 13 (9-20) mg/dL Creatinine 0.84 (0.55-1.30) mg/dl Estimated GFR > 60 ML/MIN Glucose 105 (70-110) MG/DL Hemoglobin A1c 5.4 (4.5-6.2) Calcium 9.2 (8.5-10.1) mg/dL Magnesium 1.7 L (1.8-2.4) mg/dL Assessment/Plan (1) Pulmonary emboli Current Visit: Yes Status: Acute Qualifiers: Pulmonary embolism type: other Chronicity: chronic Acute cor pulmonale presence: without acute cor pulmonale Qualified Code(s): I27.82 - Chronic pulmonary embolism Assessment & Plan: Staff requested previous CT chest yesterday - if it comes today Dr. Roem can compare. If no new PE, will send pt home on eliquis. If there is a new PE will change eliquis to coumadin per Dr. Duarte. Code(s): I26.99 - OTHER PULMONARY EMBOLISM WITHOUT ACUTE COR PULMONALE (2) DVT, recurrent, lower extremity, chronic Current Visit: No Status: Chronic Qualifiers: Laterality: left Qualified Code(s): I82.502 - Chronic embolism and thrombosis of unspecified deep veins of left lower extremity Code(s): I82.509 - CHRONIC EMBOLISM AND THOMBOS UNSP DEEP VN UNSP LOW EXTRM (3) Atrial fibrillation Current Visit: No Status: Chronic Qualifiers: Atrial fibrillation type: paroxysmal Qualified Code(s): I48.0 - Paroxysmal atrial fibrillation Code(s): I48.91 - UNSPECIFIED ATRIAL FIBRILLATION
[2017-02-13] MEDS: Cyclobenzaprine 10 MG PO PRN (16:05)
[2017-02-13] MEDS: MS CONTIN 60 MG PO SCH (21:14)
[2017-02-14] MEDS: MS CONTIN 30 MG PO PRN (00:58)
[2017-02-14] MEDS: PHENERGAN 25 MG PO PRN ×2 (04:06→10:57)
--- NOTE | 2017-02-14 08:48 | PCM.NOTE ---
Date and Time: 02/14/17 0846 Subjective Assessment: Pt still c/o leg paina nd SOB with activity. Objective Exam General Appearance: no apparent distress, alert Neurologic Exam: oriented x 3, cooperative Skin Exam: normal color, warm, dry Respiratory Exam: normal breath sounds, No crackles/rales, No rhonchi, No wheezing Cardiovascular Exam: regular rate/rhythm, normal heart sounds, No murmur Extremity Exam: other (LLE generally mildly edematous and tender to palpation, less than at admission) OBJECTIVE DATA Vital Signs: Vital Signs - 24 hr Temp Pulse Resp BP Pulse Ox 02/14/17 08:00 16 02/14/17 07:34 97.2 F 62 16 110/57 92 L 02/14/17 04:00 97.8 F 60 17 112/55 96 02/14/17 00:00 97.8 F 72 13 106/56 96 02/13/17 20:00 16 02/13/17 19:59 71 12 96 02/13/17 19:56 97.8 F 64 16 107/58 94 L 02/13/17 16:00 98.3 F 63 16 109/64 96 02/13/17 12:00 97.6 F 63 16 113/63 95 Pain Assessment - Last Documented Pain Intensity 4 [facility] Intake and Output: Intake & Output 02/11/17 02/12/17 02/13/17 02/14/17 11:59 11:59 11:59 11:59 Intake Total 1180 1700 2380 Output Total 0 1 Balance 1180 1700 2379 Weight 88.859 kg Lab Results: Accuchecks Date 02/14/17 Date 02/13/17 Time 07:30 Time 21:00 Accucheck Value: 97 Accucheck Value: 98 Accucheck Value: 110 Accucheck Value: 135 Assessment/Plan (1) Pulmonary emboli Current Visit: Yes Status: Acute Qualifiers: Pulmonary embolism type: other Chronicity: chronic Acute cor pulmonale presence: without acute cor pulmonale Qualified Code(s): I27.82 - Chronic pulmonary embolism Assessment & Plan: Films from [place] were overnighted and should be here today for eval by Dr. Rome. If there is no change, will send pt home on Eliquis. If there is extension of clots, will transition her to coumadin and discuss with Dr. Duarte. Code(s): I26.99 - OTHER PULMONARY EMBOLISM WITHOUT ACUTE COR PULMONALE (2) DVT, recurrent, lower extremity, chronic Current Visit: No Status: Chronic Qualifiers: Laterality: left Qualified Code(s): I82.502 - Chronic embolism and thrombosis of unspecified deep veins of left lower extremity Code(s): I82.509 - CHRONIC EMBOLISM AND THOMBOS UNSP DEEP VN UNSP LOW EXTRM (3) Atrial fibrillation Current Visit: No Status: Chronic Qualifiers: Atrial fibrillation type: paroxysmal Qualified Code(s): I48.0 - Paroxysmal atrial fibrillation Code(s): I48.91 - UNSPECIFIED ATRIAL FIBRILLATION
[2017-02-14] MEDS: SYNTHROID 150 MCG PO SCH (08:59)
[2017-02-14] MEDS: Ditropan 5 MG PO SCH (08:59)
[2017-02-14] MEDS: Januvia 50 MG PO SCH (08:59)
[2017-02-14] MEDS: ENOXAPARIN SODIUM SQ SCH (08:59)
[2017-02-14] MEDS: Coreg 3.125 MG PO SCH (08:59)
[2017-02-14] MEDS: Protonix 40MG Tablet PO SCH (08:59)
[2017-02-14] MEDS: MORPHINE SULFATE 10 MG/ML IV PRN (09:10)
[2017-02-14 11:18] VITALS: O2SAT 94
[2017-02-14 16:22] VITALS: BP 104/59; PULSE 63
== END 2017-02-14 16:32 | disposition home or self-care (01) ==
LOC: RAD 13:41 → MED SURG 16:35 → EDSTATUS 16:46
PROVIDERS: ADMIT Family Medicine; ATTEND Family Medicine
DX: I27.82 Chronic pulmonary embolism (principal); I82.509 Chronic embolism and thrombosis of unspecified deep veins of unspecified lower extremity; I48.0 Paroxysmal atrial fibrillation; I25.10 Atherosclerotic heart disease of native coronary artery without angina pectoris; E11.9 Type 2 diabetes mellitus without complications; Z85.850 Personal history of malignant neoplasm of thyroid; K21.9 Gastro-esophageal reflux disease without esophagitis; N80.9 Endometriosis, unspecified; I48.91 Unspecified atrial fibrillation; Z79.01 Long term (current) use of anticoagulants; I10 Essential (primary) hypertension; I51.89 Other ill-defined heart diseases; Z95.810 Presence of automatic (implantable) cardiac defibrillator; I65.29 Occlusion and stenosis of unspecified carotid artery; Z79.899 Other long term (current) drug therapy
CPT/HCPCS: 36415; 71260; 80048; 80053; 82962; 83036; 83735; 84484; 85027; 93005; 93971; 94760; G0008; G0378; G0463; J1642; J1650; J2270; 90682; A9270-GY

== ENCOUNTER 2017-03-10 18:35 | Emergency (ER) | payer MEDICARE ==
[2017-04-24] MEDS ORDERED: MORPHINE SULFATE 4 MG INJ ONE (14:13)
[2017-04-24] MEDS ORDERED: Phenergan 25 MG INJ ONE (14:13)
== END 2017-03-10 19:12 | disposition left against medical advice (07) ==
LOC: ED 18:35
DX: Z53.9 Procedure and treatment not carried out, unspecified reason (principal)
CPT/HCPCS: J2270; J2550

== ENCOUNTER 2017-04-24 13:39 | Emergency (ER) | payer MEDICARE ==
[2017-04-24] MEDS ORDERED: Phenergan 25 MG INJ IM ONE (14:00)
[2017-04-24] MEDS ORDERED: MORPHINE SULFATE 4 MG INJ IM ONE (14:00)
--- NOTE | 2017-04-24 14:07 | ERPHSYRPT ---
- History of Present Illness Time Seen by Provider: 04/24/17 14:01 Source: patient Exam Limitations: no limitations Patient Subjective Stated Complaint: headache started yesterday took morphine this morning for pain and states it did not help. nausea, blurred vison , seen dr today for thyroid Triage Nursing Assessment: pt walked in , resp easy, skin w/d pink, alert and oriented Physician History: This is a 61-year-old white female with history of migraines CVA angina arrhythmias congenital heart disease high blood pressure diabetes. Patient arrives with complaint of a frontal headache symptoms since yesterday positive nausea positive photophobia no fevers. Patient was seen today by her doctor's nurse practitioner for her thyroid the patient did not address the headache with the nurse practitioner. Patient does have chronic pain in her back she takes morphine sulfate intermediate release, regular basis she states she took one today and it didn't help. Past medical history includes migraines, CVA, angina, arrhythmia, congenital heart disease, coronary artery disease, high blood pressure, diabetes, thyroid cancer, GERD, atrial fib, carotid stenosis, irritable bowel, DVT past surgical history includes cardiac catheterization, pacer, defibrillator, appendectomy, cholecystectomy, colon resection, hernia repair, ankle surgery, hysterectomy, thyroidectomy Timing/Duration: today Quality: aching Head Pain Location: frontal Severity of Pain-Max: moderate Severity of Pain-Current: moderate Recent Head Trauma: frequent headaches Modifying Factors: Worsens With: exposure to light, immobilization, medication, movement, rest, noise, position Associated Symptoms: sensitive to light, visual disturbance (blurry vision today ), No confusion, No dizziness, No fatigue, No facial pain, No fever/chills, No flushing, No light-headedness, No loss of consciousness, No nausea/vomiting, No numbness in legs/feet, No rash, No sweating, No scotoma, No seizures, No sinus infection, No speech problems, No stiff neck, No trouble walking, No vision changes, No weakness Previous symptoms: same symptoms as today (history of chronic migraines with similar symptoms) Allergies/Adverse Reactions: codeine [Codeine] Allergy (Mild, Verified 04/24/17 13:53) Nausea and Vomiting Sulfa (Sulfonamide Antibiotics) [Sulfa(Sulfonamide Antibiotics)] Allergy (Mild, Verified 04/24/17 13:53) Nausea and Vomiting adhesive Allergy (Verified 04/24/17 13:53) Home Medications: Omeprazole [Prilosec] 40 mg PO DAILY 11/24/11 [History] Linagliptin [Tradjenta] 5 mg PO DAILY 01/11/15 [History] Carvedilol 3.125 mg [Coreg 3.125 MG] 3.125 mg PO BID 06/08/15 [History] Nitroglycerin 0.4 mg Tablet [Nitrostat 0.4 MG Tablet] 0.4 mg SL UD PRN [History] Levothyroxine Sodium 100 Mcg [Synthroid 100 Mcg] 300 mcg PO DAILY 03/20/16 [History] Solifenacin Succinate [Vesicare] 10 mg PO DAILY 03/20/16 [History] Apixaban [Eliquis] 5 mg PO BID 02/11/17 [History] Hx Tetanus, Diphtheria Vaccination/Date Given: Yes Hx Influenza Vaccination/Date Given: Yes Hx Pneumococcal Vaccination/Date Given: Yes - Review of Systems Constitutional: No Fever, No Chills Eyes: Photophobia, Vision Changes (Blurry vision today), No Discharge, No Eye Pain, No Eye Redness, No Itchy, No Tearing, No Double Vision, No Foreign Body Sensation Ears, Nose, & Throat: No Symptoms Respiratory: No Cough, No Dyspnea Cardiac: No Chest Pain, No Edema, No Syncope Abdominal/Gastrointestinal: No Abdominal Pain, No Nausea, No Vomiting, No Diarrhea Genitourinary Symptoms: No Dysuria Musculoskeletal: No Back Pain, No Neck Pain Skin: No Rash Neurological: No Dizziness, No Focal Weakness, No Sensory Changes Psychological: No Symptoms Endocrine: No Symptoms All Other Systems: Reviewed and Negative - Past Medical History Pertinent Past Medical History: Yes Neurological History: Migraines, Stroke ENT History: No Pertinent History Cardiac History: Angina, Arrhythmia, Congenital Heart Disease, Coronary Artery Disease, Hypertension Respiratory History: No Pertinent History Endocrine Medical History: Diabetes Type II, Thyroid Cancer Musculoskeletal History: No Pertinent History GI Medical History: GERD, Hernia, Other History: No Pertinent History Psycho-Social History: No Pertinent History Female Reproductive Disorders: Endometriosis Other Medical History: THYROID CA 5 YEARS AGO; A FIB, CAROTID STENOSIS. States IBS or " part of my colon", Has illeostomy. - Past Surgical History Past Surgical History: Yes Neuro Surgical History: No Pertinent History Cardiac: Cardiac Catheterization, Internal Defibrillator, Pacemaker Respiratory: No Pertinent History Gastrointestinal: Appendectomy, Cholecystectomy, Colon Resection, Hernia Repair , Other Genitourinary: No Pertinent History Musculoskeletal: Orthopedic Surgery Female Surgical History: Hysterectomy Other Surgical History: THYROID REMOVED, 40% and 50% blockages found with last heart cath about 4 years ago. ankle surgery d/t break,ileostomy, CVL port removed and replaced, PICC line placed for CVL surgery September 2015. ostomy repair due to blockage 09/02 - Social History Smoking Status: Never smoker Exposure to second hand smoke: No Alcohol Use: None Drug Use: none Patient Lives Alone: No Significant Family History: heart disease, cancer, diabetes - Female History Hx Last Menstrual Period: post Hx Now: No - Nursing Vital Signs Nursing Vital Signs: Initial Vital Signs Temperature 97.4 F 04/24/17 13:48 Pulse Rate 62 04/24/17 13:48 Respiratory Rate 16 04/24/17 13:48 Blood Pressure 164/84 04/24/17 13:48 O2 Sat by Pulse Oximetry 100 04/24/17 13:48 Pain Scale Pain Intensity 8 - Physical Exam General Appearance: no apparent distress, other (well-developed obese white female in no apparent distress) Eye Exam: PERRL/EOMI, other (fundi are unremarkable) Ears, Nose, Throat Exam: normal ENT inspection, moist mucous membranes Neck Exam: normal inspection, supple, full range of motion, No meningismus Respiratory Exam: normal breath sounds, lungs clear Cardiovascular Exam: regular rate/rhythm, normal heart sounds Gastrointestinal/Abdominal Exam: soft, No tenderness, No distention Back Exam: normal inspection, normal range of motion Extremity Exam: normal inspection, normal range of motion Mental Status Exam: alert, oriented x 3, 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 Exam: normal hearing, normal speech, PERRL, No abnormal eye position, No abnormal pupil position, No abnormal speech, No facial asymmetry, No facial droop, No facial weakness Coordination/Gait Exam: normal finger to nose, normal gait, normal cerebellar function, No ABN nose to finger (R), No ABN nose to finger (L) Motor/Sensory Exam: no motor deficit, no sensory deficit, No sensory deficit, No weak motor strength RUE, No weak motor strength LUE, No weak motor strength RLE, No weak motor strength LLE DTR Exam: ankle (R): 2+, ankle (L): 2+ Skin Exam: normal color, warm, dry, No rash SpO2 Interpretation: normal (100%) SpO2: 100 Oxygen Delivery: Room Air - Course Nursing assessment & vital signs reviewed: Yes Ordered Tests: Medication Summary Discontinued Medications Generic Name Dose Route Start Last Admin Trade Name Brad PRN Reason Stop Dose Admin Morphine Sulfate 4 mg 04/24/17 14:00 04/24/17 14:16 Morphine Sulfate 4 Mg Inj IM 04/24/17 14:01 4 mg STAT ONE Administration Promethazine HCl 25 mg 04/24/17 14:00 04/24/17 14:15 Phenergan 25 Mg Inj IM 04/24/17 14:01 25 mg STAT ONE Administration - Progress Progress: improved Air Movement: fair Progress Note: 04/24/17 14:07 This is a 61-year-old white female with history of migraines CVA arrhythmia congenital heart disease coronary artery disease who has a history of a pacer defibrillator arrives with complaint of a frontal headache symptoms since yesterday she states she took her intermediate release morphine and went to sleep however she still had a headache this morning. She has not had any fever she does state that she has some mild photophobia positive nausea. She was seen by her physician's office getting her thyroid worked up by a nurse practitioner today but apparently did not address her headache. On arrival patient really does not appear to be in acute distress she is alert oriented 3 pleasant and cooperative to examination neurologic exam is normal speech is normal. 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 Patient does take chronic narcotics she states she's going to see a pain certified control systems technician again in May she states she would like to get off her narcotics however today her headache is bothering her more than usual Will go ahead and give patient a shot of morphine 4 mg Phenergan 25 mg IM. Anticipate discharge home rest in dark quiet room follow-up with family if symptoms recur. . 04/24/17 14:45 Patient improved after morphine 4 mg Phenergan 25 mg IM. Not pain free and feeling markedly better wants to go home. Will discharge. - Departure Time of Disposition: 14:45 Departure Disposition: Home Clinical Impression: Headache Qualifiers: Headache type: unspecified Headache chronicity pattern: unspecified pattern Intractability: not intractable Qualified Code(s): R51 - Headache Condition: Fair Critical Care Time: No Referrals: CHRIS KAYE NP [Primary Care Provider] - Instructions: Headache Additional Instructions: Return home, rest in a dark quiet room. Follow-up with your family doctor if symptoms are recurrent. Return for acute distress or for severe symptoms.
[2017-04-24 14:55] VITALS: BP 118/71; PULSE 62; O2SAT 96
== END 2017-04-24 14:55 | disposition home or self-care (01) ==
LOC: ED 13:39
DX: R51 Headache (principal); I10 Essential (primary) hypertension; E11.9 Type 2 diabetes mellitus without complications; I25.10 Atherosclerotic heart disease of native coronary artery without angina pectoris; Z95.810 Presence of automatic (implantable) cardiac defibrillator; Z79.899 Other long term (current) drug therapy; Z79.01 Long term (current) use of anticoagulants
CPT/HCPCS: 96372; 99284; J2270; J2550

== ENCOUNTER 2017-05-01 11:05 | Emergency (ER) | payer MEDICARE ==
[2017-05-01] MEDS ORDERED: MORPHINE SULFATE 4 MG INJ IM ONE ×2 (12:12→13:01)
--- NOTE | 2017-05-01 12:22 | ERPHSYRPT ---
- History of Present Illness Time Seen by Provider: 05/01/17 11:59 Source: patient Exam Limitations: no limitations Patient Subjective Stated Complaint: Pt states "I have chronic back pain but for the past 5 to 6 days I just cannot get this pain to stop." Triage Nursing Assessment: Pt alert and oriented X 3, skin pwd. Pt ambulates without difficulty, able to speak in clear full setences. Physician History: 61-year-old white female with history of chronic back pain, migraines, diabetes , thyroid cancer, arrhythmia Who chronic [place] is on chronic morphine sulfate extended release Arrives with complaint of pain in her back low lumbar region bilateral worse with movement symptoms for 6 days. Patient states that he did have the dog pulled her and feels like she might of injured her back. She has not had any neurologic changes. Patient states that her pain is not controlled with her extended release morphine. Past medical history includes migraines, CVA, diabetes type 2, thyroid cancer, angina, arrhythmia, congenital heart disease, coronary artery disease, high blood pressure, GERD, hernia, endometriosis, thyroid cancer 5 years ago, atrial fibrillation, patient states she had a ischemic bowel in the past. Past surgical history includes cardiac catheter internal defibrillator pacer, appendectomy, cholecystectomy, colon resection, hernia repair, orthopedic surgery, hysterectomy, thyroidectomy, ankle surgery, ileostomy, ostomy repair Timing/Duration: day(s) (6 days) Severity: moderate Modifying Factors: Improves With: movement Associated Symptoms: No nausea, No vomiting, No abdominal pain, No shortness of breath, No heartburn, No diaphoresis, No cough, No chills, No chest pain, No fever, No headaches, No loss of appetite, No malaise, No rash, No syncope, No seizure, No weakness Allergies/Adverse Reactions: codeine [Codeine] Allergy (Mild, Verified 04/24/17 13:53) Nausea and Vomiting Sulfa (Sulfonamide Antibiotics) [Sulfa(Sulfonamide Antibiotics)] Allergy (Mild, Verified 04/24/17 13:53) Nausea and Vomiting adhesive Allergy (Verified 04/24/17 13:53) acetaminophen [From Percocet] Adverse Reaction (Verified 05/01/17 11:27) Vomiting oxycodone [From Percocet] Adverse Reaction (Verified 05/01/17 11:27) Vomiting Home Medications: Omeprazole [Prilosec] 40 mg PO DAILY 11/24/11 [History] Linagliptin [Tradjenta] 5 mg PO DAILY 01/11/15 [History] Carvedilol 3.125 mg [Coreg 3.125 MG] 3.125 mg PO BID 06/08/15 [History] Nitroglycerin 0.4 mg Tablet [Nitrostat 0.4 MG Tablet] 0.4 mg SL UD PRN [History] Levothyroxine Sodium 100 Mcg [Synthroid 100 Mcg] 300 mcg PO DAILY 03/20/16 [History] Solifenacin Succinate [Vesicare] 10 mg PO DAILY 03/20/16 [History] Apixaban [Eliquis] 5 mg PO BID 02/11/17 [History] Hx Tetanus, Diphtheria Vaccination/Date Given: Yes Hx Influenza Vaccination/Date Given: Yes Hx Pneumococcal Vaccination/Date Given: No Immunizations Up to Date: Yes - Review of Systems Constitutional: No Fever, No Chills Eyes: No Symptoms Ears, Nose, & Throat: No Symptoms Respiratory: No Cough, No Dyspnea Cardiac: No Chest Pain, No Edema, No Syncope Abdominal/Gastrointestinal: No Abdominal Pain, No Nausea, No Vomiting, No Diarrhea Genitourinary Symptoms: No Dysuria Musculoskeletal: Back Pain, No Arthralgias, No Neck Pain, No Deformity, No Fall , No Injury, No Joint Redness, No Joint Pain, No Joint Swelling, No Myalgias Skin: No Rash Neurological: No Dizziness, No Focal Weakness, No Sensory Changes Psychological: No Symptoms Endocrine: No Symptoms All Other Systems: Reviewed and Negative - Past Medical History Pertinent Past Medical History: Yes Neurological History: Migraines, Stroke ENT History: No Pertinent History Cardiac History: Angina, Arrhythmia, Congenital Heart Disease, Coronary Artery Disease, Hypertension Respiratory History: No Pertinent History Endocrine Medical History: Diabetes Type II, Thyroid Cancer Musculoskeletal History: No Pertinent History GI Medical History: GERD, Hernia, Other History: No Pertinent History Psycho-Social History: No Pertinent History Female Reproductive Disorders: Endometriosis Other Medical History: THYROID CA 5 YEARS AGO; A FIB, CAROTID STENOSIS. States IBS or " part of my colon", Has illeostomy. - Past Surgical History Past Surgical History: Yes Neuro Surgical History: No Pertinent History Cardiac: Cardiac Catheterization, Internal Defibrillator, Pacemaker Respiratory: No Pertinent History Gastrointestinal: Appendectomy, Cholecystectomy, Colon Resection, Hernia Repair , Other Genitourinary: No Pertinent History Musculoskeletal: Orthopedic Surgery Female Surgical History: Hysterectomy Other Surgical History: THYROID REMOVED, 40% and 50% blockages found with last heart cath about 4 years ago. ankle surgery d/t break,ileostomy, CVL port removed and replaced, PICC line placed for CVL surgery September 2015. ostomy repair due to blockage 09/02 - Social History Smoking Status: Never smoker Exposure to second hand smoke: No Alcohol Use: None Drug Use: none Patient Lives Alone: No Significant Family History: heart disease, cancer, diabetes - Female History Hx Last Menstrual Period: hysterectomy Hx Now: No - Nursing Vital Signs Nursing Vital Signs: Initial Vital Signs Temperature 97.6 F 05/01/17 11:20 Pulse Rate 68 05/01/17 11:20 Respiratory Rate 16 05/01/17 11:20 Blood Pressure 133/74 05/01/17 11:20 O2 Sat by Pulse Oximetry 95 05/01/17 11:20 Pain Scale Pain Intensity [Right Back] 8 Pain Intensity 7 - Physical Exam General Appearance: no apparent distress, alert Eye Exam: PERRL/EOMI, eyes nml inspection Ears, Nose, Throat Exam: normal ENT inspection, TMs normal, pharynx normal, moist mucous membranes Neck Exam: normal inspection, non-tender, supple, full range of motion Respiratory Exam: normal breath sounds, lungs clear, No respiratory distress Cardiovascular Exam: regular rate/rhythm, normal heart sounds, normal peripheral pulses Gastrointestinal/Abdomen Exam: soft, normal bowel sounds, No tenderness, No mass Back Exam: other (pain with palpation and movement low lumbar region bilaterally ) Extremity Exam: normal inspection, normal range of motion, pelvis stable Neurologic Exam: alert, oriented x 3, cooperative, normal mood/affect, nml cerebellar function, nml station & gait, sensation nml, No motor deficits Skin Exam: normal color, warm, dry, No rash Lymphatic Exam: No adenopathy SpO2 Interpretation: normal (95%) SpO2: 95 Oxygen Delivery: Room Air - Course Nursing assessment & vital signs reviewed: Yes - Radiology Exams L-Spine X-ray Interpretation: Discussed w/ radiologist (x-ray lumbar spine: Unchanged, again demonstrating osteopenia, L3/L4 kyphoplasty, L5-S1 degenerative facet arthropathy, and scattered abdominal/pelvic surgical clips . Disc spaces maintained. No new/acute findings.) Ordered Tests: Active Orders 24 hr Category Date Time Status LUMBAR LIMITED (2 OR 3 VIEWS) Stat Exams 05/01/17 12:12 Completed Medication Summary Discontinued Medications Generic Name Dose Route Start Last Admin Trade Name Brad PRN Reason Stop Dose Admin Morphine Sulfate 4 mg 05/01/17 12:12 05/01/17 12:37 Morphine Sulfate 4 Mg Inj IM 05/01/17 12:13 4 mg STAT ONE Administration Morphine Sulfate Confirm 05/01/17 12:27 Morphine Sulfate 4 Mg Inj Administered 05/01/17 12:28 Dose 4 mg .ROUTE .STK-MED ONE Morphine Sulfate 4 mg 05/01/17 13:01 05/01/17 13:27 Morphine Sulfate 4 Mg Inj IM 05/01/17 13:02 4 mg STAT ONE Administration Morphine Sulfate Confirm 05/01/17 13:21 Morphine Sulfate 4 Mg Inj Administered 05/01/17 13:22 Dose 4 mg .ROUTE .STK-MED ONE - Progress Progress: improved Progress Note: 05/01/17 13:01 This is a 61-year-old white female with history of chronic back pain. Who is on extended release morphine at home. She complains of pain in her back low lumbar region bilateral worse with bending twisting and moving this began after her dog pulled on her leash. X-ray of the patient's lumbar spine does not show any new changes there is osteopenia at L3-L4 kyphoplasty L5S1 degenerative facet arthropathy and scattered abdominal/pelvic surgical clips on the lumbar x-rays disc space her maintain there is no new or acute findings Patient has received 4 mg of morphine IM will will give her another 4 mg of morphine she is getting mild relief. patient really does not appear to be in acute distress she states she is on Flexeril at home. Will plan to release patient she will need to follow-up with her family doctor for adjustment of her chronic narcotic analgesia if she feels this is necessary. - Departure Time of Disposition: 13:04 Departure Disposition: Home Clinical Impression: Back pain Qualifiers: Back pain location: low back pain Chronicity: chronic Back pain laterality: bilateral Sciatica presence: unspecified whether sciatica present Qualified Code (s): M54.5 - Low back pain Lumbar strain Qualifiers: Encounter type: initial encounter Qualified Code(s): S39.012A - Strain of muscle, fascia and tendon of lower back, initial encounter Condition: Fair Critical Care Time: No Referrals: CHRIS FERGUSON NP [Primary Care Provider] - Instructions: Low Back Pain Additional Instructions: Return home. Narcotic analgesia as prescribed by your family doctor. Follow-up with your family doctor. Return for acute distress or for severe symptoms. Follow-up with Latoya Ferguson on May 06 at 1:15 PM
[2017-05-01] MEDS ORDERED: MORPHINE SULFATE 4 MG INJ ONE ×2 (12:27→13:21)
--- NOTE | 2017-05-01 12:47 | XRAY ---
Indication: Low back pain following fall 2 days ago. Comparison: October 08, 2016. 3 views of the lumbar spine unchanged again demonstrating osteopenia, L3/L4 kyphoplasty, L5-S1 degenerative facet arthropathy, and scattered abdominal/pelvic surgical clips. Disc spaces maintained. No new/acute findings.
[2017-05-01 13:55] VITALS: BP 132/62; PULSE 88
[2017-05-01 14:14] VITALS: O2SAT 95
== END 2017-05-01 14:19 | disposition home or self-care (01) ==
LOC: ED 11:05
DX: M54.5 Low back pain (principal); S39.012A Strain of muscle, fascia and tendon of lower back, initial encounter; E11.9 Type 2 diabetes mellitus without complications; I10 Essential (primary) hypertension; I25.10 Atherosclerotic heart disease of native coronary artery without angina pectoris; Z95.810 Presence of automatic (implantable) cardiac defibrillator; Z79.891 Long term (current) use of opiate analgesic; Z79.01 Long term (current) use of anticoagulants; Z79.899 Other long term (current) drug therapy
CPT/HCPCS: 72100; 96372; 99284; J2270

== ENCOUNTER 2017-05-15 15:26 | Emergency (ER) | payer MEDICARE ==
--- NOTE | 2017-05-15 15:47 | ERPHSYRPT ---
- History of Present Illness Time Seen by Provider: 05/15/17 15:36 Historian: patient Exam Limitations: no limitations Patient Subjective Stated Complaint: PT REPORTS CHEST PAIN BEGINNING LAST WEEK- STATES THAT SHE TOOK HER LAST NITRO LAST NIGHT ET COULD NOT GET A REFILL-DENIES CHANGES IN PAIN-DENIES SOB Triage Nursing Assessment: PT PINK WARM ET [id number] EASY ET NONLABORED- LUNGS CLEAR-RADIAL PULSE REGULAR Physician History: Patient is a 61-year-old female complaining of chest pain for 4 days. She has a constant chest pain of a 6 out of 10 and she will have "shooters" with the pain will shoot up into her shoulder and down her left arm. She took her last nitroglycerin without relief at times she will be short of breath. She denies cough. Her past medical history is significant for pacemaker/defibrillator, A. fib, stroke, congestive heart failure, chronic back pain, DVT, and hypo- thyroidism. Timing/Duration: day(s) (4) Activities at Onset: none Quality: aching, sharpness Location: substernal Chest Pain Radiation: arm Severity of Pain-Max: moderate Severity of Pain-Current: moderate Modifying Factors: Improves With: nothing Associated Symptoms: denies symptoms Prior Chest Pain/Cardiac Workup: angina, pulmonary embolism Nitro Today/Relief: 0.4 mg x 1, provided at home, no relief Aspirin Treatment Today: no aspirin today Allergies/Adverse Reactions: codeine [Codeine] Allergy (Mild, Verified 05/15/17 15:29) Nausea and Vomiting Sulfa (Sulfonamide Antibiotics) [Sulfa(Sulfonamide Antibiotics)] Allergy (Mild, Verified 05/15/17 15:29) Nausea and Vomiting adhesive Allergy (Verified 05/15/17 15:29) acetaminophen [From Percocet] Adverse Reaction (Verified 05/15/17 15:29) Vomiting oxycodone [From Percocet] Adverse Reaction (Verified 05/15/17 15:29) Vomiting Home Medications: Omeprazole [Prilosec] 40 mg PO DAILY 11/24/11 [History] Linagliptin [Tradjenta] 5 mg PO DAILY 01/11/15 [History] Carvedilol 3.125 mg [Coreg 3.125 MG] 3.125 mg PO BID 06/08/15 [History] Nitroglycerin 0.4 mg Tablet [Nitrostat 0.4 MG Tablet] 0.4 mg SL UD PRN [History] Levothyroxine Sodium 100 Mcg [Synthroid 100 Mcg] 300 mcg PO DAILY 03/20/16 [History] Solifenacin Succinate [Vesicare] 10 mg PO DAILY 03/20/16 [History] Apixaban [Eliquis] 5 mg PO BID 02/11/17 [History] Hx Tetanus, Diphtheria Vaccination/Date Given: Yes Hx Influenza Vaccination/Date Given: Yes Hx Pneumococcal Vaccination/Date Given: No Immunizations Up to Date: Yes - Review of Systems Constitutional: No Fever, No Chills Eyes: No Symptoms Ears, Nose, & Throat: No Symptoms Respiratory: Dyspnea Cardiac: Chest Pain Abdominal/Gastrointestinal: No Abdominal Pain, No Nausea, No Vomiting, No Diarrhea Genitourinary Symptoms: No Dysuria Musculoskeletal: No Back Pain, No Neck Pain Skin: No Rash Neurological: No Dizziness, No Focal Weakness, No Sensory Changes Psychological: No Symptoms Endocrine: No Symptoms Hematologic/Lymphatic: No Symptoms Immunological/Allergic: No Symptoms All Other Systems: Reviewed and Negative - Past Medical History Pertinent Past Medical History: Yes Neurological History: Migraines, Stroke ENT History: No Pertinent History Cardiac History: Angina, Arrhythmia, Congenital Heart Disease, Coronary Artery Disease, Hypertension Respiratory History: No Pertinent History Endocrine Medical History: Diabetes Type II, Thyroid Cancer Musculoskeletal History: No Pertinent History GI Medical History: GERD, Hernia, Other History: No Pertinent History Psycho-Social History: No Pertinent History Female Reproductive Disorders: Endometriosis Other Medical History: THYROID CA 5 YEARS AGO; A FIB, CAROTID STENOSIS. States IBS or " part of my colon", Has illeostomy. - Past Surgical History Past Surgical History: Yes Neuro Surgical History: No Pertinent History Cardiac: Cardiac Catheterization, Internal Defibrillator, Pacemaker Respiratory: No Pertinent History Gastrointestinal: Appendectomy, Cholecystectomy, Colon Resection, Hernia Repair , Other Genitourinary: No Pertinent History Musculoskeletal: Orthopedic Surgery Female Surgical History: Hysterectomy Other Surgical History: THYROID REMOVED, 40% and 50% blockages found with last heart cath about 4 years ago. ankle surgery d/t break,ileostomy, CVL port removed and replaced, PICC line placed for CVL surgery September 2015. ostomy repair due to blockage 09/02 - Social History Smoking Status: Never smoker Exposure to second hand smoke: No Alcohol Use: None Drug Use: none Patient Lives Alone: No Significant Family History: heart disease, cancer, diabetes - Female History Hx Now: No - Nursing Vital Signs Nursing Vital Signs: Initial Vital Signs Temperature 97.8 F 05/15/17 15:35 Pulse Rate 70 05/15/17 15:35 Respiratory Rate 20 05/15/17 15:35 Blood Pressure 129/76 05/15/17 15:35 Pain Scale Pain Intensity 6 - Physical Exam General Appearance: no apparent distress, alert Eye Exam: PERRL/EOMI, eyes nml inspection Ears, Nose, Throat Exam: normal ENT inspection, moist mucous membranes Neck Exam: normal inspection, non-tender, supple, full range of motion Respiratory Exam: normal breath sounds, lungs clear, No respiratory distress Cardiovascular Exam: regular rate/rhythm, normal heart sounds Gastrointestinal/Abdomen Exam: soft, No tenderness, No mass Pelvic Exam: not done Rectal Exam: not done Back Exam: normal inspection, No CVA tenderness, No vertebral tenderness Extremity Exam: normal inspection, normal range of motion Neurologic Exam: alert, oriented x 3, cooperative, normal mood/affect, sensation nml, No motor deficits Skin Exam: normal color, warm, dry SpO2 Interpretation: normal - Radiology Exams Chest X-ray Interpretation: Interpreted by me, Negative, Other (mild cardiomegaly) Ordered Tests: Active Orders 24 hr Category Date Time Status Lever Miller STAT Care 05/15/17 15:54 Active EKG-ER Only STAT Care 05/15/17 15:53 Active IV Insertion STAT Care 05/15/17 15:53 Active Pulse Oximetry (ED) STAT Care 05/15/17 15:53 Active CHEST 2 VIEWS (PA AND LAT) Stat Exams 05/15/17 15:54 Taken CBC W DIFF Stat Lab 05/15/17 16:20 Completed CMP Stat Lab 05/15/17 16:20 Completed NT PRO BNP Stat Lab 05/15/17 16:20 Completed PROTIME WITH INR Stat Lab 05/15/17 16:20 Completed TROPONIN Q3H Lab 05/15/17 16:20 Completed TROPONIN Q3H Lab 05/15/17 19:00 Ordered TROPONIN Q3H Lab 05/15/17 22:00 Ordered TROPONIN Q3H Lab 05/16/17 01:00 Ordered TROPONIN Q3H Lab 05/16/17 04:00 Ordered Medication Summary Discontinued Medications Generic Name Dose Route Start Last Admin Trade Name Brad PRN Reason Stop Dose Admin Aspirin 324 mg 05/15/17 15:53 05/15/17 16:10 Baby Aspirin 81 Mg Chew PO 05/15/17 15:54 324 mg STAT ONE Administration Aspirin Confirm 05/15/17 16:02 Baby Aspirin 81 Mg Chew Administered 05/15/17 16:03 Dose 324 mg .ROUTE .STK-MED ONE Nitroglycerin 0.4 mg 05/15/17 15:53 05/15/17 16:10 Nitrostat 0.4 Mg (Ed) SL 05/15/17 15:54 0.4 mg STAT ONE Administration Nitroglycerin Confirm 05/15/17 16:03 Nitrostat 0.4 Mg (Ed) Administered 05/15/17 16:04 Dose 0.4 mg SL .STK-MED ONE Ondansetron HCl 4 mg 05/15/17 15:53 05/15/17 16:10 Zofran 4 Mg/2 Ml Vial IV 05/15/17 15:54 4 mg STAT ONE Administration Ondansetron HCl Confirm 05/15/17 16:02 Zofran 4 Mg/2 Ml Vial Administered 05/15/17 16:03 Dose 4 mg .ROUTE .STK-MED ONE Lab/Rad Data: Laboratory Result Diagrams 05/15/17 16:20 05/15/17 16:20 Laboratory Results 05/15/17 05/15/17 05/15/17 Range/Units 16:20 16:20 16:20 WBC (4.0-10.5) K/mm3 RBC (4.1-5.4) M/mm3 Hgb (12.0-16.0) gm/dl Hct (35-47) % MCV (78-100) fl MCH (26-32) pg MCHC (32-36) g/dl RDW (11.5-14.0) % Plt Count (150-450) K/mm3 MPV (6-9.5) fl Gran % (36.0-66.0) % Lymphocytes % (24.0-44.0) % Monocytes % (0.0-12.0) % Eosinophils % (0.00-5.0) % Basophils % (0.0-0.4) % Basophils # (0-0.4) INR 1.07 (0.8-3.0) Sodium 143 (136-145) mEq/L Potassium 4.1 (3.5-5.1) mEq/L Chloride 107 (98-107) mEq/L Carbon Dioxide 25.0 (21-32) mEq/L Anion Gap 15.1 H (5-15) MEQ/L BUN 14 (9-20) mg/dL Creatinine 1.20 (0.55-1.30) mg/dl Estimated GFR 49 ML/MIN Glucose 94 (70-110) MG/DL Calcium 8.9 (8.5-10.1) mg/dL Total Bilirubin 0.60 (0.2-1.0) mg/dL AST 21 (15-37) U/L ALT 13 (12-78) U/L Alkaline Phosphatase 111 (46-116) U/L Troponin I < 0.017 (0.000-0.056) ng/ml NT-Pro-B Natriuret Pep 1380 H (0-125) pg/ml Serum Total Protein 7.6 (6.4-8.2) gm/dL Albumin 3.5 (3.4-5.0) g/dL // Range/Units 16:20 WBC 7.8 (4.0-10.5) K/mm3 RBC 4.29 (4.1-5.4) M/mm3 Hgb 12.7 (12.0-16.0) gm/dl Hct 39.5 (35-47) % MCV 92.1 (78-100) fl MCH 29.6 (26-32) pg MCHC 32.2 (32-36) g/dl RDW 14.0 (11.5-14.0) % Plt Count 264 (150-450) K/mm3 MPV 10.2 H (6-9.5) fl Gran % 55.5 (36.0-66.0) % Lymphocytes % 34.7 (24.0-44.0) % Monocytes % 8.5 (0.0-12.0) % Eosinophils % 0.8 (0.00-5.0) % Basophils % 0.5 (0.0-0.4) % Basophils # 0.04 (0-0.4) INR (0.8-3.0) Sodium (136-145) mEq/L Potassium (3.5-5.1) mEq/L Chloride (98-107) mEq/L Carbon Dioxide (21-32) mEq/L Anion Gap (5-15) MEQ/L BUN (9-20) mg/dL Creatinine (0.55-1.30) mg/dl Estimated GFR ML/MIN Glucose (70-110) MG/DL Calcium (8.5-10.1) mg/dL Total Bilirubin (0.2-1.0) mg/dL AST (15-37) U/L ALT (12-78) U/L Alkaline Phosphatase (46-116) U/L Troponin I (0.000-0.056) ng/ml NT-Pro-B Natriuret Pep (0-125) pg/ml Serum Total Protein (6.4-8.2) gm/dL Albumin (3.4-5.0) g/dL - Departure Time of Disposition: 17:02 Departure Disposition: Home Clinical Impression: Chest pain Condition: Stable Critical Care Time: No Referrals: CHRIS KAYE NP [Primary Care Provider] -
[2017-05-15] MEDS ORDERED: BABY ASPIRIN 81 MG CHEW PO ONE (15:53)
[2017-05-15] MEDS ORDERED: Nitrostat 0.4 MG (ED) SL ONE ×2 (15:53→16:03)
[2017-05-15] MEDS ORDERED: Zofran 4 MG/2 ML VIAL IV ONE (15:53)
[2017-05-15 16:00] VITALS: O2SAT 96
[2017-05-15] MEDS ORDERED: BABY ASPIRIN 81 MG CHEW ONE (16:02)
[2017-05-15] MEDS ORDERED: Zofran 4 MG/2 ML VIAL ONE (16:02)
[2017-05-15 16:24] LABS: BASOPHIL % 0.5 % (0.0-0.4); Basophil (Absolute #) 0.04 (0-0.4); Eosinophil % 0.8 % (0.00-5.0); Eosinophil (Absolute #) 0.06 (0-0.5); Granulocyte Absolute (ANC) 4.32 (1.4-6.9); Granulocytes % 55.5 % (36.0-66.0); Hematocrit 39.5 % (35-47); Hemoglobin 12.7 gm/dl (12.0-16.0); Lymphocytes % 34.7 % (24.0-44.0); Mean Cell Volume 92.1 fl (78-100); Mean Corpuscular Hemoglobin 29.6 pg (26-32); Mean Corpuscular Hgb Concent. 32.2 g/dl (32-36); Mean Platelet Volume 10.2 fl (6-9.5); Monocyte (Absolute #) 0.66 (0.0-1.3); Monocytes % 8.5 % (0.0-12.0); Platelet Count 264 K/mm3 (150-450); Red Blood Count 4.29 M/mm3 (4.1-5.4); White Blood Count 7.8 K/mm3 (4.0-10.5)
[2017-05-15 16:26] LABS: INR 1.07 (0.8-3.0)
[2017-05-15 16:39] LABS: ALBUMIN 3.5 g/dL (3.4-5.0); ANION GAP 15.1 MEQ/L (5-15); BILIRUBIN,TOTAL 0.6 mg/dL (0.2-1.0); Calcium 8.9 mg/dL (8.5-10.1); Creatinine 1 1.2 mg/dl (0.55-1.30); Potassium 4.1 mEq/L (3.5-5.1); Total Protein 7.6 gm/dL (6.4-8.2)
[2017-05-15 16:41] VITALS: PULSE 60
--- NOTE | 2017-05-15 16:59 | XRAY ---
Indication: Chest pain and cough. Comparison: March 17, 2017. PA/lateral chest hyperinflated and clear. Heart is not enlarged. Vascularity normal. Stable left-sided AICD and right sided Port-A-Cath. Bony thorax intact again with mild osteopenia. Partially visualized lumbar kyphoplasty on the lateral view. Impression: Nonacute hyperinflated chest with chronic features.
[2017-05-15 17:06] VITALS: BP 128/54
== END 2017-05-15 17:19 | disposition home or self-care (01) ==
LOC: ED 15:26
DX: R07.9 Chest pain, unspecified (principal); Z86.73 Personal history of transient ischemic attack (TIA), and cerebral infarction without residual deficits; E11.9 Type 2 diabetes mellitus without complications; Z85.850 Personal history of malignant neoplasm of thyroid; K21.9 Gastro-esophageal reflux disease without esophagitis; N80.9 Endometriosis, unspecified; Z95.810 Presence of automatic (implantable) cardiac defibrillator; I51.7 Cardiomegaly; Z79.899 Other long term (current) drug therapy
CPT/HCPCS: 36000; 36415; 71020; 80053; 83880; 84484; 85025; 85610; 93005; 93041; 96374; 99284; J2405; A9270-GY

== ENCOUNTER 2017-07-01 10:37 | Emergency (ER) | payer MEDICARE ==
[2017-07-01 10:43] VITALS: O2SAT 98
[2017-07-01] MEDS ORDERED: MOTRIN 600 MG PO ONE (10:49)
[2017-07-01] MEDS ORDERED: MOTRIN 600 MG ONE (10:53)
--- NOTE | 2017-07-01 10:59 | ERPHSYRPT ---
- History of Present Illness Time Seen by Provider: 07/01/17 10:42 Source: patient Patient Subjective Stated Complaint: PT REPORTS YESTERDAY SHE BEGAN HAVING RIGHT SIDED RIB PAIN RADIATING TO SHOULDER-STATES THAT SHE WAS SEEN IN PCP OFFICE TODAY-NOT GIVEN PAIN MEDS-STATES THAT WHEN SHE CAME TO GET OUTPT RAD DONE SHE COULDN'T TAKE THE PAIN ANYMORE-DENIEAS SOB-DENIES INJURY-DENIES RECENT COUGH Triage Nursing Assessment: PT PINK WARM ET [id number] GUARDING AND FLINCHING BEFORE PALP-RESP NONLABORED-PT ABLE TO SPEAK IN COMPLETE SENTENCES WITHE ASE Physician History: CC: right rib pain Hx: 61 y/o patient of [facility] states she has right posterior chest pain in rib area since sitting in a chair yesterday. It is a sharp, severe, burning pain wrapping around the back of her chest. No anterior chest pain. She has DM. No specific fall or injury. Pain is worse with movement. No rash. She is unsure if had zoster vaccine but has had a lot of shots in the past. No cough or dysuria. No urinary problems. Not short of breath. She saw [facility] this AM and they sent her for an OP xray but she decided to check into ER. She used 5 morphine pills and 4 muscle relaxers since the pain began. She is allergic to percocet which causes nausea. Timing/Duration: yesterday Allergies/Adverse Reactions: codeine [Codeine] Allergy (Mild, Verified 07/01/17 10:44) Nausea and Vomiting Sulfa (Sulfonamide Antibiotics) [Sulfa(Sulfonamide Antibiotics)] Allergy (Mild, Verified 07/01/17 10:44) Nausea and Vomiting adhesive Allergy (Verified 07/01/17 10:44) acetaminophen [From Percocet] Adverse Reaction (Verified 07/01/17 10:44) Vomiting oxycodone [From Percocet] Adverse Reaction (Verified 07/01/17 10:44) Vomiting Home Medications: Omeprazole [Prilosec] 40 mg PO DAILY 11/24/11 [History] Linagliptin [Tradjenta] 5 mg PO DAILY 01/11/15 [History] Carvedilol 3.125 mg [Coreg 3.125 MG] 3.125 mg PO BID 06/08/15 [History] Nitroglycerin 0.4 mg Tablet [Nitrostat 0.4 MG Tablet] 0.4 mg SL UD PRN [History] Levothyroxine Sodium 100 Mcg [Synthroid 100 Mcg] 300 mcg PO DAILY 03/20/16 [History] Solifenacin Succinate [Vesicare] 10 mg PO DAILY 03/20/16 [History] Apixaban [Eliquis] 5 mg PO BID 02/11/17 [History] Hx Tetanus, Diphtheria Vaccination/Date Given: Yes Hx Influenza Vaccination/Date Given: Yes Hx Pneumococcal Vaccination/Date Given: No Immunizations Up to Date: Yes - Review of Systems Constitutional: No Fever, No Chills Eyes: No Symptoms Ears, Nose, & Throat: No Symptoms Respiratory: No Cough, No Dyspnea Cardiac: No Chest Pain Abdominal/Gastrointestinal: No Abdominal Pain, No Nausea, No Vomiting Genitourinary Symptoms: No Dysuria, No Hematuria Musculoskeletal: Back Pain (right posterior rib area) Skin: No Rash Neurological: No Headache All Other Systems: Reviewed and Negative - Past Medical History Pertinent Past Medical History: Yes Neurological History: Migraines, Stroke ENT History: No Pertinent History Cardiac History: Angina, Arrhythmia, Congenital Heart Disease, Coronary Artery Disease, Hypertension Respiratory History: No Pertinent History Endocrine Medical History: Diabetes Type II, Thyroid Cancer Musculoskeletal History: No Pertinent History GI Medical History: GERD, Hernia, Other History: No Pertinent History Psycho-Social History: No Pertinent History Female Reproductive Disorders: Endometriosis Other Medical History: THYROID CA 5 YEARS AGO; A FIB, CAROTID STENOSIS. States IBS or " part of my colon", Has illeostomy. - Past Surgical History Past Surgical History: Yes Neuro Surgical History: No Pertinent History Cardiac: Cardiac Catheterization, Internal Defibrillator, Pacemaker Respiratory: No Pertinent History Gastrointestinal: Appendectomy, Cholecystectomy, Colon Resection, Hernia Repair , Other Genitourinary: No Pertinent History Musculoskeletal: Orthopedic Surgery Female Surgical History: Hysterectomy Other Surgical History: THYROID REMOVED, 40% and 50% blockages found with last heart cath about 4 years ago. ankle surgery d/t break,ileostomy, CVL port removed and replaced, PICC line placed for CVL surgery September 2015. ostomy repair due to blockage 09/02 - Social History Smoking Status: Never smoker Exposure to second hand smoke: No Alcohol Use: None Drug Use: none Patient Lives Alone: No Significant Family History: heart disease, cancer, diabetes - Female History Hx Now: No - Nursing Vital Signs Nursing Vital Signs: Initial Vital Signs Temperature 98.1 F 07/01/17 10:39 Pulse Rate 61 07/01/17 10:39 Respiratory Rate 20 07/01/17 10:39 Blood Pressure 132/79 07/01/17 10:39 O2 Sat by Pulse Oximetry 98 07/01/17 10:39 Pain Scale Pain Intensity 10 - Physical Exam General Appearance: alert, other (uncomfortable appearing) Eye Exam: PERRL/EOMI Ears, Nose, Throat Exam: normal ENT inspection, moist mucous membranes Neck Exam: normal inspection, non-tender, supple Respiratory Exam: normal breath sounds Cardiovascular Exam: regular rate/rhythm Gastrointestinal/Abdomen Exam: soft, No tenderness, No distention Back Exam: normal inspection, other (tender in mid thoracic right sided posterior ribs wrapping around laterally. No rash. ), No rash Extremity Exam: normal inspection, normal range of motion Neurologic Exam: alert, oriented x 3, cooperative, sensation nml, No motor deficits Skin Exam: warm, dry, No rash SpO2 Interpretation: normal SpO2: 98 Oxygen Delivery: Room Air - Course Nursing assessment & vital signs reviewed: Yes EKG Interpreted by Me: RATE (60 paced rhythm) - Radiology Exams cxr X-ray Interpretation: Teleradiologist Report, Negative Ordered Tests: Active Orders 24 hr Category Date Time Status EKG-ER Only STAT Care 07/01/17 10:50 Active CHEST 2 VIEWS (PA AND LAT) Stat Exams 07/01/17 11:23 Completed Medication Summary Discontinued Medications Generic Name Dose Route Start Last Admin Trade Name Brad PRN Reason Stop Dose Admin Ibuprofen 600 mg 07/01/17 10:49 07/01/17 10:55 Motrin 600 Mg PO 07/01/17 10:50 600 mg STAT ONE Administration Ibuprofen Confirm 07/01/17 10:53 Motrin 600 Mg Administered 07/01/17 10:54 Dose 600 mg .ROUTE .STK-MED ONE - Progress Progress Note: 07/01/17 10:57 Will get CXR as already ordered per [facility] appropriately. Explained to patient that can not give additional sedating medications as she already took her morphine 5 times. Motrin given. She has no symptoms to suggest renal pathology or pneumonia or ACS. She appears to have occult rib injury or early pre-rash zoster. 07/01/17 11:39 CXR negative. Symptoms are highly suggestive of zoster pre-rash. This was explained to pt. Will Rx acyclovir empirically. Advised follow up with ИРИНА Ferguson. Counseled pt/family regarding: diagnosis, need for follow-up, rad results - Departure Time of Disposition: 11:39 Departure Disposition: Home Clinical Impression: Chronic pain syndrome, Rib pain on right side, Zoster Condition: Stable Critical Care Time: No Referrals: CHRIS FERGUSON, ИРИНА [Primary Care Provider] - Instructions: Shingles (DC), Bruised Rib (DC) Additional Instructions: Follow up with ИРИНА Ferguson this week. Rx acyclovir in case this is shingles. Take your morphine as already prescribed. Ibuprofen as directed if needed for pain. Prescriptions: Acyclovir 800 mg [Zovirax 800 mg] 800 mg PO 5XD #35 tablet
--- NOTE | 2017-07-01 11:30 | XRAY ---
Indication: Right posterior rib pain. Comparison: May 15, 2017. PA/lateral chest remains clear. Heart and mediastinal structures within normal limits. Stable left-sided AICD and right-sided Port-A-Cath. Bony thorax intact again with mild osteopenia and partially visualized lumbar kyphoplasty. Impression: Stable nonacute chest with chronic features.
[2017-07-01 12:02] VITALS: BP 138/76; PULSE 78
== END 2017-07-01 12:01 | disposition home or self-care (01) ==
LOC: ED 10:37
DX: G89.4 Chronic pain syndrome (principal); R07.81 Pleurodynia; B02.9 Zoster without complications; Z79.899 Other long term (current) drug therapy
CPT/HCPCS: 71046; 93005; 99283; 99284; A9270-GY

== ENCOUNTER 2017-07-19 08:59 | Emergency (ER) | payer MEDICARE ==
[2017-07-19 09:36] VITALS: BP 131/64; PULSE 62; O2SAT 98
--- NOTE | 2017-07-19 09:59 | ERPHSYRPT ---
- History of Present Illness Time Seen by Provider: 07/19/17 09:47 Source: patient Exam Limitations: no limitations Patient Subjective Stated Complaint: pt had battery changed in pacemaker at [facility] on of this week; pt co pain and discomfort in l shoulder since surgery; wants to make sure the incision site is not infected. Triage Nursing Assessment: pt a&o x3; skin p, w, and d; ambulated to room per self; incision has small dressing applied officer captain but appears clean and intact; no obvious s/s of inflammation noted on visual inspection; minor pain and discomfort noted with palpation surrounding incision site. Physician History: The patient is a 62-year-old female complaining of increasing tenderness, warmth , and redness at the surgical site in her upper left chest after having the battery replaced on , 2 days ago, to her cardiac pacer and defibrillator. She had a fever of 101 yesterday. She is worried about infection. She denies any other problems. She took Tylenol this morning prior to arrival. Her past medical history is significant for cardiac pacer/ defibrillator, A. fib, stroke, CHF, chronic back pain, DVT, and hypothyroidism. Timing/Duration: yesterday Quality: painful Severity: mild Location: torso Possible Causes: other (surgical incision) Associated Symptoms: fever, rash Allergies/Adverse Reactions: codeine [Codeine] Allergy (Mild, Verified 07/01/17 10:44) Nausea and Vomiting Sulfa (Sulfonamide Antibiotics) [Sulfa(Sulfonamide Antibiotics)] Allergy (Mild, Verified 07/01/17 10:44) Nausea and Vomiting adhesive Allergy (Verified 07/01/17 10:44) acetaminophen [From Percocet] Adverse Reaction (Verified 07/01/17 10:44) Vomiting oxycodone [From Percocet] Adverse Reaction (Verified 07/01/17 10:44) Vomiting Home Medications: Omeprazole [Prilosec] 40 mg PO DAILY 11/24/11 [History] Linagliptin [Tradjenta] 5 mg PO DAILY 01/11/15 [History] Carvedilol 3.125 mg [Coreg 3.125 MG] 3.125 mg PO BID 06/08/15 [History] Nitroglycerin 0.4 mg Tablet [Nitrostat 0.4 MG Tablet] 0.4 mg SL UD PRN [History] Levothyroxine Sodium 100 Mcg [Synthroid 100 Mcg] 300 mcg PO DAILY 03/20/16 [History] Solifenacin Succinate [Vesicare] 10 mg PO DAILY 03/20/16 [History] Apixaban [Eliquis] 5 mg PO BID 02/11/17 [History] Hx Tetanus, Diphtheria Vaccination/Date Given: Yes Hx Influenza Vaccination/Date Given: Yes Hx Pneumococcal Vaccination/Date Given: Yes Immunizations Up to Date: Yes - Review of Systems Constitutional: Fever Eyes: No Symptoms Ears, Nose, & Throat: No Symptoms Respiratory: No Cough, No Dyspnea Cardiac: No Chest Pain, No Edema, No Syncope Abdominal/Gastrointestinal: No Abdominal Pain, No Nausea, No Vomiting, No Diarrhea Genitourinary Symptoms: No Dysuria Musculoskeletal: No Back Pain, No Neck Pain Skin: Cellulitis Neurological: No Dizziness, No Focal Weakness, No Sensory Changes Psychological: No Symptoms Endocrine: No Symptoms Hematologic/Lymphatic: No Symptoms Immunological/Allergic: No Symptoms All Other Systems: Reviewed and Negative - Past Medical History Pertinent Past Medical History: Yes Neurological History: Migraines, Stroke ENT History: No Pertinent History Cardiac History: Angina, Arrhythmia, Congenital Heart Disease, Coronary Artery Disease, Hypertension Respiratory History: No Pertinent History Endocrine Medical History: Diabetes Type II, Thyroid Cancer Musculoskeletal History: No Pertinent History GI Medical History: GERD, Hernia, Other History: No Pertinent History Psycho-Social History: No Pertinent History Female Reproductive Disorders: Endometriosis Other Medical History: THYROID CA 5 YEARS AGO; A FIB, CAROTID STENOSIS. States IBS or " part of my colon", Has illeostomy. - Past Surgical History Past Surgical History: Yes Neuro Surgical History: No Pertinent History Cardiac: Cardiac Catheterization, Internal Defibrillator, Pacemaker Respiratory: No Pertinent History Gastrointestinal: Appendectomy, Cholecystectomy, Colon Resection, Hernia Repair , Other Genitourinary: No Pertinent History Musculoskeletal: Orthopedic Surgery Female Surgical History: Hysterectomy Other Surgical History: THYROID REMOVED, 40% and 50% blockages found with last heart cath about 4 years ago. ankle surgery d/t break,ileostomy, CVL port removed and replaced, PICC line placed for CVL surgery September 2015. ostomy repair due to blockage 09/02 - Social History Smoking Status: Never smoker Exposure to second hand smoke: No Alcohol Use: None Drug Use: none Patient Lives Alone: No Significant Family History: heart disease, cancer, diabetes - Female History Hx Last Menstrual Period: hysterectomy - Nursing Vital Signs Nursing Vital Signs: Initial Vital Signs Temperature 98.2 F 07/19/17 09:24 Pulse Rate 62 07/19/17 09:24 Respiratory Rate 16 07/19/17 09:24 Blood Pressure 131/64 07/19/17 09:24 O2 Sat by Pulse Oximetry 98 07/19/17 09:24 Pain Scale Pain Intensity 8 - Physical Exam General Appearance: no apparent distress, alert Eye Exam: PERRL/EOMI, eyes nml inspection Ears, Nose, Throat Exam: normal ENT inspection, pharynx normal, moist mucous membranes Neck Exam: normal inspection, non-tender, supple, full range of motion Respiratory Exam: normal breath sounds, lungs clear, No respiratory distress Cardiovascular Exam: regular rate/rhythm, normal heart sounds Gastrointestinal/Abdomen Exam: soft, mass, No tenderness Pelvic Exam: not done Rectal Exam: not done Back Exam: normal inspection, normal range of motion, No CVA tenderness, No vertebral tenderness Extremity Exam: normal inspection, normal range of motion Neurologic Exam: alert, oriented x 3, cooperative, normal mood/affect, sensation nml, No motor deficits Skin Exam: other (Examination of the anterior left chest shows an area that is completely covered with Steri-Strips. The area around the Steri-Strips has obvious erythema, tenderness, and warmth. There is no obvious discharge from the wound.) SpO2 Interpretation: normal SpO2: 98 Oxygen Delivery: Room Air - Progress Progress: unchanged Counseled pt/family regarding: diagnosis - Departure Time of Disposition: 10:03 Departure Disposition: Home Clinical Impression: Cellulitis Condition: Stable Critical Care Time: No Referrals: CHRIS KAYE NP [Primary Care Provider] - Additional Instructions: The area from the incision that was done to change the battery in your pacemaker has signs of infection. Take clindamycin 300 mg 3 times a day for 10 days. Take Tylenol 1000 mg and ibuprofen 800 mg every 8 hours as needed for pain and fever. If the condition worsens over the next day, do not hesitate to return to the ER. Otherwise, call the cardiology office on Friday to discuss your condition. Prescriptions: Clindamycin HCl 1 cap PO TID #30 capsule
== END 2017-07-19 10:19 | disposition home or self-care (01) ==
LOC: ED 08:59
DX: L03.313 Cellulitis of chest wall (principal); T81.4XXA Infection following a procedure, initial encounter; T82.7XXA Infection and inflammatory reaction due to other cardiac and vascular devices, implants and grafts, initial encounter; Z79.899 Other long term (current) drug therapy
CPT/HCPCS: 99281

== ENCOUNTER 2017-11-03 16:49 | Emergency (ER) | payer MEDICARE ==
[2017-11-03 17:22] VITALS: BP 119/57; PULSE 63; O2SAT 96
--- NOTE | 2017-11-03 17:39 | ERPHSYRPT ---
- History of Present Illness Time Seen by Provider: 11/03/17 17:35 Source: patient, family Exam Limitations: no limitations Patient Subjective Stated Complaint: pt reports being hospitalized at [facility] for multiple back surgeries recently and then consequently for an infection of the surgical site. pt reports being inpatient for 2 weeks and was discharged yesterday. she is concerned about her legs swelling. she also reports her home health nurses today could not access her port. pt also reports her ileostomy is not producing much stool. reports some abdominal pain as well. Triage Nursing Assessment: pt is aox3, pupil perrl, pt afebrile, pt resps easy and non labored, pt radial pulses are strong and equal. bilateral pedal edema noted. edema to the LLE is greater than the right. pedal pulses intact. Physician History: The patient is a 62-year-old female with her with multiple complaints. For the last month she's had undergone multiple back surgeries. She's had MRSA infection in the back upper eating site. She was discharged from [facility] yesterday after extensive rounds of antibiotics. She has bilateral leg swelling that is being treated currently with Lasix. The states she is not concerned about the swelling because it has improved with the Lasix. She also has ileostomy bag that they claim hasn't produced any material in 3 days. She has some mild abdominal pain around the ileostomy site. And the final problem is that she has a port for the antibiotics at home. The home health nurse was unable to access the port today. She denies fever or chills. He her past medical history is significant for DVT, PE, A. fib, congestive heart failure, chronic back pain, CHF, stroke, and chronic headaches Timing/Duration: today Severity: moderate Associated Symptoms: denies symptoms Allergies/Adverse Reactions: codeine [Codeine] Allergy (Mild, Verified 11/03/17 17:22) Nausea and Vomiting Sulfa (Sulfonamide Antibiotics) [Sulfa(Sulfonamide Antibiotics)] Allergy (Mild, Verified 11/03/17 17:22) Nausea and Vomiting adhesive Allergy (Verified 11/03/17 17:22) acetaminophen [From Percocet] Adverse Reaction (Verified 11/03/17 17:22) Vomiting oxycodone [From Percocet] Adverse Reaction (Verified 11/03/17 17:22) Vomiting Home Medications: Omeprazole [Prilosec] 40 mg PO DAILY 11/24/11 [History] Linagliptin [Tradjenta] 5 mg PO DAILY 01/11/15 [History] Carvedilol 3.125 mg [Coreg 3.125 MG] 3.125 mg PO BID 06/08/15 [History] Nitroglycerin 0.4 mg Tablet [Nitrostat 0.4 MG Tablet] 0.4 mg SL UD PRN [History] Levothyroxine Sodium 100 Mcg [Synthroid 100 Mcg] 300 mcg PO DAILY 03/20/16 [History] Solifenacin Succinate [Vesicare] 10 mg PO DAILY 03/20/16 [History] Apixaban [Eliquis] 5 mg PO BID 02/11/17 [History] Hx Tetanus, Diphtheria Vaccination/Date Given: Yes Hx Influenza Vaccination/Date Given: No Hx Pneumococcal Vaccination/Date Given: No Immunizations Up to Date: Yes - Review of Systems Constitutional: No Fever, No Chills Eyes: No Symptoms Ears, Nose, & Throat: No Symptoms Respiratory: No Cough, No Dyspnea Cardiac: Edema, No Chest Pain, No Syncope Abdominal/Gastrointestinal: Abdominal Pain Genitourinary Symptoms: No Dysuria Musculoskeletal: Back Pain Skin: No Rash Neurological: No Dizziness, No Focal Weakness, No Sensory Changes Psychological: No Symptoms Endocrine: No Symptoms Hematologic/Lymphatic: No Symptoms Immunological/Allergic: No Symptoms All Other Systems: Reviewed and Negative - Past Medical History Pertinent Past Medical History: Yes Neurological History: Migraines, Stroke ENT History: No Pertinent History Cardiac History: Angina, Arrhythmia, Congenital Heart Disease, Coronary Artery Disease, Hypertension Respiratory History: No Pertinent History Endocrine Medical History: Diabetes Type II, Thyroid Cancer Musculoskeletal History: No Pertinent History GI Medical History: GERD, Hernia, Other History: No Pertinent History Psycho-Social History: No Pertinent History Female Reproductive Disorders: Endometriosis Other Medical History: THYROID CA 5 YEARS AGO; A FIB, CAROTID STENOSIS. States IBS or " part of my colon", Has illeostomy. - Past Surgical History Past Surgical History: Yes Neuro Surgical History: No Pertinent History Cardiac: Cardiac Catheterization, Internal Defibrillator, Pacemaker Respiratory: No Pertinent History Gastrointestinal: Appendectomy, Cholecystectomy, Colon Resection, Hernia Repair , Other Genitourinary: No Pertinent History Musculoskeletal: Orthopedic Surgery Female Surgical History: Hysterectomy Other Surgical History: THYROID REMOVED, 40% and 50% blockages found with last heart cath about 4 years ago. ankle surgery d/t break,ileostomy, CVL port removed and replaced, PICC line placed for CVL surgery September 2015. ostomy repair due to blockage 09/02. TLIF fused discs in back - Social History Smoking Status: Never smoker Exposure to second hand smoke: No Alcohol Use: None Drug Use: none Patient Lives Alone: No Significant Family History: heart disease, cancer, diabetes - Female History Hx Now: No - Nursing Vital Signs Nursing Vital Signs: Initial Vital Signs Temperature 99.6 F 11/03/17 17:05 Pulse Rate 63 11/03/17 17:05 Respiratory Rate 18 11/03/17 17:05 Blood Pressure 119/57 11/03/17 17:05 O2 Sat by Pulse Oximetry 96 11/03/17 17:05 Pain Scale Pain Intensity 8 - Physical Exam General Appearance: no apparent distress, alert Eye Exam: PERRL/EOMI, eyes nml inspection Ears, Nose, Throat Exam: normal ENT inspection, TMs normal, pharynx normal, moist mucous membranes Neck Exam: normal inspection, non-tender, supple, full range of motion Respiratory Exam: normal breath sounds, lungs clear, No respiratory distress Cardiovascular Exam: regular rate/rhythm, normal heart sounds, normal peripheral pulses Gastrointestinal/Abdomen Exam: tenderness (around ostomy site), other (ostomy bag has mild amount of fecal material.) Pelvic Exam: not done Rectal Exam: not done Back Exam: normal inspection, normal range of motion, No CVA tenderness, No vertebral tenderness Extremity Exam: pedal edema (moderat to severe pitting edema in bilateral lower legs, L > R.) Neurologic Exam: alert, oriented x 3, cooperative, normal mood/affect, nml cerebellar function, nml station & gait, sensation nml, No motor deficits Skin Exam: normal color, warm, dry, No rash Lymphatic Exam: adenopathy SpO2 Interpretation: normal SpO2: 96 Oxygen Delivery: Room Air - Radiology Exams Chest X-ray Interpretation: Interpreted by me, Negative, Other (central port in place over right chest.) Ordered Tests: Active Orders 24 hr Category Date Time Status IV Insertion STAT Care 11/03/17 17:39 Active CHEST 2 VIEWS (PA AND LAT) Stat Exams 11/03/17 18:47 Taken BMP Stat Lab 11/03/17 17:39 Ordered CBC W DIFF Stat Lab 11/03/17 17:39 Ordered Lactic Acid Stat Lab 11/03/17 17:39 Ordered - Progress Progress Note: 11/03/17 18:53 Dr Pantoja accepts pt. Counseled pt/family regarding: diagnosis, need for follow-up - Departure Time of Disposition: 18:32 Departure Disposition: Transfer (transfer to [facility] per Dr Pantoja.) Clinical Impression: Back pain Condition: Stable Critical Care Time: No Referrals: CHRIS AKYE NP [Primary Care Provider] - Additional Instructions: Transfer to Regional ER by private car.
--- NOTE | 2017-11-04 08:34 | XRAY ---
Indication: Poor access to port. No blood. Comparison: July 01, 2017. PA/lateral chest demonstrates stable intact right Port-A-Cath without kink. Remaining heart and lungs normal again with left-sided AICD. Bony thorax intact again with mild osteopenia, degenerative changes, and partially visualized lumbar kyphoplasty. Impression: Stable nonacute chest with chronic features.
== END 2017-11-03 18:58 | disposition short-term general hospital (02) ==
LOC: ED 16:49
DX: M54.9 Dorsalgia, unspecified (principal); M79.89 Other specified soft tissue disorders; R10.9 Unspecified abdominal pain; Z93.2 Ileostomy status; Z79.899 Other long term (current) drug therapy
CPT/HCPCS: 71046; 99284

== ENCOUNTER 2017-11-14 16:00 | Emergency (ER) | payer MEDICARE ==
[2017-11-14] MEDS ORDERED: MORPHINE SULFATE 4 MG INJ IM ONE ×2 (16:25→17:02)
[2017-11-14] MEDS ORDERED: MORPHINE SULFATE 4 MG INJ ONE ×2 (16:29→17:31)
--- NOTE | 2017-11-14 16:32 | ERPHSYRPT ---
- History of Present Illness Time Seen by Provider: 11/14/17 16:20 Source: patient Exam Limitations: no limitations Patient Subjective Stated Complaint: pt here for pain medicine, she was infusion center and did not take her pain meds and her is coming to get her so she was brought down from infusion center for pain meds, pt had back surgery 10/06 and is getting vancomycin for infection Triage Nursing Assessment: pt arrived per , resp easy skin w/d/p. was able to get self out of wc, has bandage to back Physician History: 62-year-old white female with history of chronic back pain who has had recent laminectomy and the 3 subsequent operations for irriation and debridement and is on IV vancomycin infusion. Patient apparently was here for IV infusion apparently had forgot her pain medications at home. And was sent from infusion to the emergency room for pain control. Apparently the patient's was not due to arrive until 5:00 this afternoon. Past medical history includes thyroid problems, migraines, diabetes, thyroid cancer, angina, arrhythmia, congenital heart disease, coronary artery disease, high blood pressure, GERD, hernia, atrial fibrillation, ischemic bowel disease, ileostomy, back surgery with subsequent irrigation and debridement 3 Past surgical history includes thyroid removed ankle surgery ileostomy CBL port removed and replaced back surgery ostomy repair fusion of discs Timing/Duration: other (chronic back pain ) Severity: moderate Modifying Factors: Improves With: nothing Associated Symptoms: other (Low back pain chronic forgot pain medications), No nausea, No vomiting, No abdominal pain, No shortness of breath, No heartburn, No diaphoresis, No cough, No chills, No chest pain, No fever, No headaches, No loss of appetite, No malaise, No syncope, No seizure, No weakness Allergies/Adverse Reactions: codeine [Codeine] Allergy (Mild, Verified 11/14/17 16:07) Nausea and Vomiting Sulfa (Sulfonamide Antibiotics) [Sulfa(Sulfonamide Antibiotics)] Allergy (Mild, Verified 11/14/17 16:07) Nausea and Vomiting adhesive Allergy (Verified 11/14/17 16:07) acetaminophen [From Percocet] Adverse Reaction (Verified 11/14/17 16:07) Vomiting oxycodone [From Percocet] Adverse Reaction (Verified 11/14/17 16:07) Vomiting Home Medications: Omeprazole [Prilosec] 40 mg PO DAILY 11/24/11 [History] Linagliptin [Tradjenta] 5 mg PO DAILY 01/11/15 [History] Carvedilol 3.125 mg [Coreg 3.125 MG] 3.125 mg PO BID 06/08/15 [History] Nitroglycerin 0.4 mg Tablet [Nitrostat 0.4 MG Tablet] 0.4 mg SL UD PRN [History] Levothyroxine Sodium 100 Mcg [Synthroid 100 Mcg] 300 mcg PO DAILY 03/20/16 [History] Solifenacin Succinate [Vesicare] 10 mg PO DAILY 03/20/16 [History] Apixaban [Eliquis] 5 mg PO BID 02/11/17 [History] Morphine Sulfate 15 mg PO QID 11/10/17 [History] Tizanidine HCl 2 mg PO Q4H PRN PRN 11/10/17 [History] Trazodone HCl 50 mg [Desyrel 50 mg] 50 mg PO UD 11/10/17 [History] Hx Tetanus, Diphtheria Vaccination/Date Given: Yes Hx Influenza Vaccination/Date Given: No Hx Pneumococcal Vaccination/Date Given: No - Review of Systems Constitutional: No Fever, No Chills Eyes: No Symptoms Ears, Nose, & Throat: No Symptoms Respiratory: No Cough, No Dyspnea Cardiac: No Chest Pain, No Edema, No Syncope Abdominal/Gastrointestinal: No Abdominal Pain, No Nausea, No Vomiting, No Diarrhea Genitourinary Symptoms: No Dysuria Musculoskeletal: Back Pain Skin: No Rash Neurological: No Dizziness, No Focal Weakness, No Sensory Changes Psychological: No Symptoms Endocrine: No Symptoms All Other Systems: Reviewed and Negative - Past Medical History Pertinent Past Medical History: Yes Neurological History: Migraines, Stroke ENT History: No Pertinent History Cardiac History: Angina, Arrhythmia, Congenital Heart Disease, Coronary Artery Disease, Hypertension Respiratory History: No Pertinent History Endocrine Medical History: Diabetes Type II, Thyroid Cancer Musculoskeletal History: No Pertinent History GI Medical History: GERD, Hernia, Other History: No Pertinent History Psycho-Social History: No Pertinent History Female Reproductive Disorders: Endometriosis Other Medical History: THYROID CA 5 YEARS AGO; A FIB, CAROTID STENOSIS. States IBS or " part of my colon", Has illeostomy.Back fusion ,lower back in september 2017 and then 3 I&D after in september and october 2017 at [facility]. - Past Surgical History Past Surgical History: Yes Neuro Surgical History: No Pertinent History Cardiac: Cardiac Catheterization, Internal Defibrillator, Pacemaker Respiratory: No Pertinent History Gastrointestinal: Appendectomy, Cholecystectomy, Colon Resection, Hernia Repair , Other Genitourinary: No Pertinent History Musculoskeletal: Orthopedic Surgery Female Surgical History: Hysterectomy Other Surgical History: THYROID REMOVED, 40% and 50% blockages found with last heart cath about 4 years ago. ankle surgery d/t break,ileostomy, CVL port removed and replaced, PICC line placed for CVL surgery September 2015. ostomy repair due to blockage 09/02, back surgery and three I&D september and october 2017. TLIF fused discs in back - Social History Smoking Status: Never smoker Exposure to second hand smoke: No Alcohol Use: None Drug Use: none Patient Lives Alone: No Significant Family History: heart disease, cancer, diabetes - Female History Hx Last Menstrual Period: post Hx Now: No - Nursing Vital Signs Nursing Vital Signs: Initial Vital Signs Temperature 98.4 F 11/14/17 16:01 Respiratory Rate 18 11/14/17 16:01 Blood Pressure 121/67 11/14/17 16:01 O2 Sat by Pulse Oximetry 96 11/14/17 16:01 Pain Scale Pain Intensity [Back] 9 Pain Intensity 8 - Physical Exam General Appearance: moderate distress Eye Exam: PERRL/EOMI, eyes nml inspection Ears, Nose, Throat Exam: normal ENT inspection, TMs normal, pharynx normal, moist mucous membranes Neck Exam: normal inspection, non-tender, supple, full range of motion Respiratory Exam: normal breath sounds, lungs clear, No respiratory distress Cardiovascular Exam: regular rate/rhythm, normal heart sounds, normal peripheral pulses Gastrointestinal/Abdomen Exam: soft, normal bowel sounds, No tenderness, No mass Back Exam: other (patient with dressing in place low lumbosacral area, area tender with palpation. No erythema) Extremity Exam: normal inspection, normal range of motion, pelvis stable Neurologic Exam: alert, oriented x 3, cooperative, cable wirer II-XII nml as tested, normal mood/affect, nml cerebellar function, nml station & gait, sensation nml, No motor deficits Skin Exam: normal color, warm, dry, other (new dressing in place low lumbosacral area), No rash Lymphatic Exam: No adenopathy SpO2 Interpretation: normal (96%), borderline oxygenation (im) SpO2: 96 Oxygen Delivery: Room Air Ordered Tests: Medication Summary Discontinued Medications Generic Name Dose Route Start Last Admin Trade Name Brad PRN Reason Stop Dose Admin Morphine Sulfate 4 mg 11/14/17 16:25 11/14/17 16:33 Morphine Sulfate 4 Mg Inj IM 11/14/17 16:26 4 mg STAT ONE Administration Morphine Sulfate Confirm 11/14/17 16:29 Morphine Sulfate 4 Mg Inj Administered 11/14/17 16:30 Dose 4 mg .ROUTE .STK-MED ONE Morphine Sulfate 4 mg 11/14/17 17:02 11/14/17 17:33 Morphine Sulfate 4 Mg Inj IM 11/14/17 17:03 4 mg STAT ONE Administration Morphine Sulfate Confirm 11/14/17 17:31 Morphine Sulfate 4 Mg Inj Administered 11/14/17 17:32 Dose 4 mg .ROUTE .STK-MED ONE - Progress Progress: improved Progress Note: 11/14/17 17:51 Patient is feeling better after morphine 4 mg IM 2. Will discharge patient patient to return home pain medications as prescribed by Dr. Santos. Continue current medications and treatments as prescribed by the patient's family doctor and Dr. Santos - Departure Time of Disposition: 17:52 Departure Disposition: Home Clinical Impression: history of recent lumbar laminectomy Chronic back pain Qualifiers: Back pain location: back pain in unspecified location Back pain laterality: unspecified Qualified Code(s): M54.9 - Dorsalgia, unspecified; G89.29 - Other chronic pain Condition: Fair Critical Care Time: No Referrals: CHRIS KAYE NP [Primary Care Provider] - Additional Instructions: Return home. Continue medications and treatment as prescribed by your family doctor and Dr. Santos. Follow-up with Dr. Santos. Return for acute distress or for severe symptoms.
[2017-11-14 17:01] VITALS: BP 144/85; PULSE 60
[2017-11-14 17:54] VITALS: O2SAT 96
== END 2017-11-14 18:05 ==
LOC: ED 16:00
DX: M54.9 Dorsalgia, unspecified (principal); G89.29 Other chronic pain; Z98.890 Other specified postprocedural states; Z79.899 Other long term (current) drug therapy
CPT/HCPCS: 96365; 96366; 96372; 99284; J2270; J3370; G0463

== ENCOUNTER 2017-12-29 10:56 | Emergency (ER) | payer MEDICARE ==
--- NOTE | 2017-12-29 11:09 | ERPHSYRPT ---
- History of Present Illness Time Seen by Provider: 12/29/17 11:05 Source: patient, family Physician History: 62 y/o white female presents with left foot pain after a frozen 1/2 gallon fell onto her left foot. 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 pt had a recent back surgery. pt takes morphine, phenergan and norco for this pain. however, since she was doing well, she has not had any pain medications for 2 days. Method of Injury: direct blow Occurred: just prior to arrival Quality: constant, aching, throbbing Severity of Pain-Max: moderate Severity of Pain-Current: moderate Lower Extremities Pain: foot: left Modifying Factors: Improves With: movement (weight bearing worsens), rest Allergies/Adverse Reactions: codeine [Codeine] Allergy (Mild, Verified 12/17/17 10:33) Nausea and Vomiting Sulfa (Sulfonamide Antibiotics) [Sulfa(Sulfonamide Antibiotics)] Allergy (Mild, Verified 12/17/17 10:33) Nausea and Vomiting adhesive Allergy (Verified 12/17/17 10:33) acetaminophen [From Percocet] Adverse Reaction (Verified 12/17/17 10:33) Vomiting oxycodone [From Percocet] Adverse Reaction (Verified 12/17/17 10:33) Vomiting Home Medications: Omeprazole [Prilosec] 40 mg PO DAILY 11/24/11 [History] Linagliptin [Tradjenta] 5 mg PO DAILY 01/11/15 [History] Carvedilol 3.125 mg [Coreg 3.125 MG] 3.125 mg PO BID 06/08/15 [History] Nitroglycerin 0.4 mg Tablet [Nitrostat 0.4 MG Tablet] 0.4 mg SL UD PRN [History] Levothyroxine Sodium 100 Mcg [Synthroid 100 Mcg] 300 mcg PO DAILY 03/20/16 [History] Solifenacin Succinate [Vesicare] 10 mg PO DAILY 03/20/16 [History] Apixaban [Eliquis] 5 mg PO BID 02/11/17 [History] Morphine Sulfate 15 mg PO QID 11/10/17 [History] Tizanidine HCl 2 mg PO Q4H PRN PRN 11/10/17 [History] Trazodone HCl 50 mg [Desyrel 50 mg] 50 mg PO QID PRN 11/10/17 [History] Vancomycin HCl 1.5 gm IV UD 11/16/17 [History] Hx Tetanus, Diphtheria Vaccination/Date Given: Yes Hx Influenza Vaccination/Date Given: No Hx Pneumococcal Vaccination/Date Given: No - Review of Systems Constitutional: No Symptoms Ears, Nose, & Throat: No Symptoms Respiratory: No Symptoms Cardiac: No Symptoms Abdominal/Gastrointestinal: No Symptoms Genitourinary Symptoms: No Symptoms Musculoskeletal: Injury Skin: No Symptoms Neurological: No Symptoms Psychological: No Symptoms Endocrine: No Symptoms Hematologic/Lymphatic: No Symptoms Immunological/Allergic: No Symptoms All Other Systems: Reviewed and Negative - Past Medical History Pertinent Past Medical History: Yes Neurological History: Migraines, Stroke ENT History: No Pertinent History Cardiac History: Angina, Arrhythmia, Congenital Heart Disease, Congestive Heart Failure, Coronary Artery Disease, Hypertension Respiratory History: Pulmonary Embolism Endocrine Medical History: Diabetes Type II, Thyroid Cancer Musculoskeletal History: No Pertinent History GI Medical History: GERD, Hernia, Other History: Other Psycho-Social History: No Pertinent History Female Reproductive Disorders: Endometriosis Other Medical History: THYROID CA 5 YEARS AGO; A FIB, CAROTID STENOSIS. States IBS or " part of my colon", Has illeostomy.Back fusion ,lower back in september 2017 and then 5 I&D after in september and october 2017 and November 2017 at [facility]. hx kidney stones - Past Surgical History Past Surgical History: Yes Neuro Surgical History: No Pertinent History Cardiac: Cardiac Catheterization, Internal Defibrillator, Pacemaker Respiratory: No Pertinent History Gastrointestinal: Appendectomy, Cholecystectomy, Colon Resection, Hernia Repair , Other Genitourinary: No Pertinent History Musculoskeletal: Orthopedic Surgery Female Surgical History: Hysterectomy Other Surgical History: THYROID REMOVED, 40% and 50% blockages found with last heart cath about 4 years ago. ankle surgery d/t break,ileostomy, CVL port removed and replaced, PICC line placed for CVL surgery September 2015. ostomy repair due to blockage 09/02, back surgery and 4 I&D september and october and november 2017. TLIF fused discs in back - Social History Smoking Status: Never smoker Exposure to second hand smoke: No Alcohol Use: None Drug Use: none Patient Lives Alone: No Significant Family History: heart disease, cancer, diabetes - Nursing Vital Signs Nursing Vital Signs: Initial Vital Signs Temperature 97.9 F 08/13/18 11:02 Pulse Rate 60 12/29/17 11:02 Respiratory Rate 20 12/29/17 11:02 Blood Pressure 148/93 12/29/17 11:02 O2 Sat by Pulse Oximetry 99 12/29/17 11:02 Pain Scale Pain Intensity 5 - Physical Exam General Appearance: mild distress, alert, anxiety Eyes, Ears, Nose, Throat Exam: normal ENT inspection Neck Exam: normal inspection, non-tender, supple, full range of motion Cardiovascular/Respiratory Exam: chest non-tender, normal breath sounds, regular rate/rhythm, heart sounds normal Gastrointestinal/Abdominal Exam: non-tender, soft, no organomegaly, no hernia, No guarding, No tenderness Back Exam: other (pts midline lower back surgery incision line is healing well) Hips Exam: bilateral: non-tender, normal inspection, normal range of motion, no evidence of injury Legs Exam: bilateral leg: non-tender, normal inspection, normal range of motion , no evidence of injury Knees Exam: bilateral knee: non-tender, normal inspection, normal range of motion, no evidence of injury Ankle Exam: bilateral ankle: non-tender, normal inspection, normal range of motion, no evidence of injury Foot Exam: right foot: non-tender, normal inspection, normal range of motion, no evidence of injury, left foot: bone tenderness, ecchymosis, soft tissue tenderness (area of 5th metatarsal) Neuro/Tendon Exam: normal sensation, normal motor functions, normal tendon functions Mental Status Exam: alert, oriented x 3, cooperative, No agitated Skin Exam: normal color, warm, ecchymosis SpO2 Interpretation: normal Oxygen Delivery: Room Air Procedures - Splinting Location of Splint: Left, Foot Type of Splint: Walking Boot/Shoe Splint Applied By: ED Nurse Pre-Proc Neuro Vasc Exam: normal - Course Nursing assessment & vital signs reviewed: Yes Ordered Tests: Active Orders 24 hr Category Date Time Status [facility] 12/29/17 12:01 Ordered Splint STAT Care 12/29/17 11:52 Ordered FOOT (MINIMUM 3 VIEWS) Stat Exams 12/29/17 11:23 Completed Medication Summary Discontinued Medications Generic Name Dose Route Start Last Admin Trade Name Freq PRN Reason Stop Dose Admin Morphine Sulfate 4 mg 12/29/17 11:23 12/29/17 11:32 Morphine Sulfate 4 Mg Inj IM 12/29/17 11:24 4 mg STAT ONE Administration Morphine Sulfate Confirm 12/29/17 11:31 Morphine Sulfate 4 Mg Inj Administered 12/29/17 11:32 Dose 4 mg .ROUTE .STK-MED ONE Ondansetron HCl 4 mg 12/29/17 11:24 12/29/17 11:33 Zofran 4 Mg/2 Ml Vial IM 12/29/17 11:25 4 mg STAT ONE Administration Ondansetron HCl Confirm 12/29/17 11:31 Zofran 4 Mg/2 Ml Vial Administered 12/29/17 11:32 Dose 4 mg .ROUTE .STK-MED ONE - Progress Progress: improved Progress Note: 12/29/17 12:03 discussed with pt and spouse and reviewed xray result of left 5th prox phalanx and distal metatarsal comminuted fx. Counseled pt/family regarding: diagnosis, need for follow-up - Departure Time of Disposition: 12:06 Departure Disposition: Home Clinical Impression: Fracture of metatarsal bone of left foot Condition: Stable Critical Care Time: No Referrals: CHRIS KAYE NP [Primary Care Provider] - Additional Instructions: ice pack to site 3 times daily for 3 days. minimize ambulation and weight bearing. follow up today with podiatry or orthopedic of choice for evaluation. continue your morphine and norco as prescribed for pain
[2017-12-29 11:10] VITALS: O2SAT 99
[2017-12-29] MEDS ORDERED: Zofran 4 MG/2 ML VIAL ONE (11:31)
[2017-12-29] MEDS ORDERED: MORPHINE SULFATE 4 MG INJ ONE (11:31)
[2017-12-29] MEDS: MORPHINE SULFATE 4 MG INJ IM ONE (11:32)
[2017-12-29] MEDS: Zofran 4 MG/2 ML VIAL IM ONE (11:33)
--- NOTE | 2017-12-29 11:36 | XRAY ---
Indication: Lateral pain following injury. Comparison: February 21, 2014. 3 nonweightbearing views of the right foot demonstrates new nondisplaced comminuted fracture involving the mid to proximal 5th proximal phalanx and mid to distal 5th metatarsal with adjacent soft tissue swelling. Elsewhere stable osteopenia, heel spurs, distal fibula/tibia fixation hardware, and old 1st metatarsal bunionectomy.
[2017-12-29 12:03] VITALS: BP 156/95; PULSE 80
== END 2017-12-29 12:24 | disposition home or self-care (01) ==
LOC: ED 10:56
DX: S92.352A Displaced fracture of fifth metatarsal bone, left foot, initial encounter for closed fracture (principal); Z79.899 Other long term (current) drug therapy; W20.8XXA Other cause of strike by thrown, projected or falling object, initial encounter
CPT/HCPCS: 73630; 96372; 99284; J2270; J2405

== ENCOUNTER 2018-03-09 15:15 | Inpatient (IN) | payer MEDICARE ==
[2018-03-09] MEDS ORDERED: DUONEB 0.5-3 MG/3 ml Neb IH ONE ×3 (15:28→19:30)
--- NOTE | 2018-03-09 15:32 | ERPHSYRPT ---
- History of Present Illness Time Seen by Provider: 03/09/18 15:30 Historian: patient Physician History: mild to mod shortness of breath and chest pain tight off and on today, +TEJEDA, improved with SL NTG, no fever, speech fluent Aspirin Treatment Today: provided by ED Allergies/Adverse Reactions: codeine [Codeine] Allergy (Mild, Verified 03/09/18 15:36) Nausea and Vomiting Sulfa (Sulfonamide Antibiotics) [Sulfa(Sulfonamide Antibiotics)] Allergy (Mild, Verified 03/09/18 15:36) Nausea and Vomiting adhesive Allergy (Verified 03/09/18 15:36) acetaminophen [From Percocet] Adverse Reaction (Verified 03/09/18 15:36) Vomiting oxycodone [From Percocet] Adverse Reaction (Verified 03/09/18 15:36) Vomiting Home Medications: Omeprazole [Prilosec] 40 mg PO DAILY 11/24/11 [History] Linagliptin [Tradjenta] 5 mg PO DAILY 01/11/15 [History] Carvedilol 3.125 mg [Coreg 3.125 MG] 3.125 mg PO BID 06/08/15 [History] Nitroglycerin 0.4 mg Tablet [Nitrostat 0.4 MG Tablet] 0.4 mg SL UD PRN [History] Levothyroxine Sodium 100 Mcg [Synthroid 100 Mcg] 300 mcg PO DAILY 03/20/16 [History] Apixaban [Eliquis] 5 mg PO BID 02/11/17 [History] Morphine Sulfate 15 mg PO QID 11/10/17 [History] Tizanidine HCl 2 mg PO TID 11/10/17 [History] Furosemide [Lasix] 10 mg PO DAILY 03/09/18 [History] Linagliptin [Tradjenta] 5 mg PO DAILY 03/09/18 [History] Hx Tetanus, Diphtheria Vaccination/Date Given: Yes Hx Influenza Vaccination/Date Given: No Hx Pneumococcal Vaccination/Date Given: No - Review of Systems Constitutional: No Fever Eyes: No Vision Changes Ears, Nose, & Throat: No Nose Congestion Respiratory: Dyspnea Cardiac: Chest Pain Abdominal/Gastrointestinal: No Abdominal Pain Genitourinary Symptoms: No Dysuria Musculoskeletal: No Back Pain Skin: No Rash Neurological: No Dizziness - Past Medical History Pertinent Past Medical History: Yes Neurological History: Migraines, Stroke ENT History: No Pertinent History Cardiac History: Angina, Arrhythmia, Congenital Heart Disease, Congestive Heart Failure, Coronary Artery Disease, Hypertension Respiratory History: Pulmonary Embolism Endocrine Medical History: Diabetes Type II, Thyroid Cancer Musculoskeletal History: No Pertinent History GI Medical History: GERD, Hernia, Other History: Other Psycho-Social History: No Pertinent History Female Reproductive Disorders: Endometriosis Other Medical History: THYROID CA 5 YEARS AGO; A FIB, CAROTID STENOSIS. States IBS or " part of my colon", Has illeostomy.Back fusion ,lower back in september 2017 and then 5 I&D after in september and october 2017 and November 2017 at [facility]. hx kidney stones - Past Surgical History Past Surgical History: Yes Neuro Surgical History: No Pertinent History Cardiac: Cardiac Catheterization, Internal Defibrillator, Pacemaker Respiratory: No Pertinent History Gastrointestinal: Appendectomy, Cholecystectomy, Colon Resection, Hernia Repair , Other Genitourinary: No Pertinent History Musculoskeletal: Orthopedic Surgery Female Surgical History: Hysterectomy Other Surgical History: THYROID REMOVED, 40% and 50% blockages found with last heart cath about 4 years ago. ankle surgery d/t break,ileostomy, CVL port removed and replaced, PICC line placed for CVL surgery September 2015. ostomy repair due to blockage 09/02, back surgery and 4 I&D september and october and november 2017. TLIF fused discs in back - Social History Smoking Status: Never smoker Exposure to second hand smoke: No Alcohol Use: None Drug Use: none Patient Lives Alone: No Significant Family History: heart disease, cancer, diabetes - Nursing Vital Signs Nursing Vital Signs: Initial Vital Signs Temperature 97.3 F 03/09/18 15:17 Pulse Rate 63 03/09/18 15:17 Respiratory Rate 30 H 03/09/18 15:17 Blood Pressure 128/78 03/09/18 15:17 O2 Sat by Pulse Oximetry 92 L 03/09/18 15:17 Pain Scale Pain Intensity 8 - Physical Exam General Appearance: no apparent distress Eye Exam: eyes nml inspection Ears, Nose, Throat Exam: moist mucous membranes Neck Exam: normal inspection Respiratory Exam: No respiratory distress Cardiovascular Exam: regular rate/rhythm Gastrointestinal/Abdomen Exam: soft, No tenderness Extremity Exam: No swelling Neurologic Exam: alert, oriented x 3, cooperative Skin Exam: warm, dry - Course Nursing assessment & vital signs reviewed: Yes EKG Interpreted by Me: Other (v paced60) - Radiology Exams Chest X-ray Interpretation: Interpreted by me, No Infiltrates Ordered Tests: Active Orders 24 hr Category Date Time Status Financial Service Representative STAT Care 03/09/18 15:28 Active EKG-ER Only STAT Care 03/09/18 15:28 Active IV Insertion STAT Care 03/09/18 15:28 Active Oxygen-ED Only NASAL CANNULA 2 lpm Care 03/09/18 15:33 Active CHEST 1 VIEW (PORTABLE) Stat Exams 03/09/18 15:40 Completed BLOOD CULTURE Stat Lab 03/09/18 15:50 Received CBC W DIFF Stat Lab 03/09/18 15:50 Completed CMP Stat Lab 03/09/18 15:50 Completed D-DIMER QUANTITATION Stat Lab 03/09/18 15:50 Completed Lactic Acid Stat Lab 03/09/18 16:00 Results NT PRO BNP Stat Lab 03/09/18 15:50 Completed PROTIME WITH INR Stat Lab 03/09/18 15:50 Completed TROPONIN Q3H Lab 03/09/18 15:50 Completed TROPONIN Q3H Lab 03/09/18 18:30 Ordered TROPONIN Q3H Lab 03/09/18 21:30 Ordered TROPONIN Q3H Lab 03/10/18 00:30 Ordered TROPONIN Q3H Lab 03/10/18 03:30 Ordered Peak Expiratory Flow Rate ONCE RT 03/09/18 15:42 Active Respiratory Nebulizer STAT RT 03/09/18 15:29 Completed Respiratory Therapy Assessment DAILY RT 03/09/18 15:41 Active Transfer Order Routine Transfer 03/09/18 Ordered Medication Summary Discontinued Medications Generic Name Dose Route Start Last Admin Trade Name Freq PRN Reason Stop Dose Admin Albuterol/Ipratropium 3 ml 03/09/18 15:28 03/09/18 15:37 Duoneb 0.5-3 Mg/3 Ml Neb IH 03/09/18 15:29 3 ml STAT ONE Administration Albuterol/Ipratropium Confirm 03/09/18 15:34 Duoneb 0.5-3 Mg/3 Ml Neb Administered 03/09/18 15:35 Dose 3 ml IH .STK-MED ONE Aspirin 324 mg 03/09/18 15:33 03/09/18 15:48 Baby Aspirin 81 Mg Chew PO 03/09/18 15:34 324 mg STAT ONE Administration Aspirin Confirm 03/09/18 15:38 Baby Aspirin 81 Mg Chew Administered 03/09/18 15:39 Dose 324 mg .ROUTE .[employer] ONE Enoxaparin Sodium 94 mg 03/09/18 17:12 Enoxaparin Sodium SQ 03/09/18 17:13 STAT ONE Ondansetron HCl 4 mg 03/09/18 15:33 03/09/18 15:48 Zofran 4 Mg/2 Ml Vial IV 03/09/18 15:34 4 mg STAT ONE Administration Ondansetron HCl Confirm 03/09/18 15:37 Zofran 4 Mg/2 Ml Vial Administered 03/09/18 15:38 Dose 4 mg .ROUTE .[employer] ONE Lab/Rad Data: Laboratory Result Diagrams 03/09/18 15:50 03/09/18 15:50 Laboratory Results 03/09/18 03/09/18 03/09/18 Range/Units 16:00 15:50 15:50 WBC (4.0-10.5) K/mm3 RBC (4.1-5.4) M/mm3 Hgb (12.0-16.0) gm/dl Hct (35-47) % MCV (78-100) fl MCH (26-32) pg MCHC (32-36) g/dl RDW (11.5-14.0) % Plt Count (150-450) K/mm3 MPV (6-9.5) fl Gran % (36.0-66.0) % Eos # (Auto) (0-0.5) Absolute Lymphs (auto) (1.0-4.6) Absolute Monos (auto) (0.0-1.3) Lymphocytes % (24.0-44.0) % Monocytes % (0.0-12.0) % Eosinophils % (0.00-5.0) % Basophils % (0.0-0.4) % Absolute Granulocytes (1.4-6.9) Basophils # (0-0.4) PT 14.1 H (9.95-12.35) SECONDS INR 1.21 (0.8-3.0) D-Dimer [id number] H* (215-500) ng/mL Sodium (137-145) mmol/L Potassium (3.5-5.1) mmol/L Chloride (98-107) mmol/L Carbon Dioxide (22-30) mmol/L Anion Gap (5-15) MEQ/L BUN (7-17) mg/dL Creatinine (0.52-1.04) mg/dL Estimated GFR ML/MIN Glucose (74-106) mg/dL Lactic Acid 1.9 (0.4-2.0) Calcium (8.4-10.2) mg/dL Total Bilirubin (0.2-1.3) mg/dL AST (14-36) U/L ALT (0-35) U/L Alkaline Phosphatase (38-126) U/L Troponin I 0.018 (0.000-0.034) ng/mL NT-Pro-B Natriuret Pep (0-900) pg/mL Serum Total Protein (6.3-8.2) g/dL Albumin (3.5-5.0) g/dL 03/09/18 03/09/18 Range/Units 15:50 15:50 WBC 8.7 (4.0-10.5) K/mm3 RBC 3.84 L (4.1-5.4) M/mm3 Hgb 11.5 L (12.0-16.0) gm/dl Hct 35.4 (35-47) % MCV 92.2 (78-100) fl MCH 29.9 (26-32) pg MCHC 32.5 (32-36) g/dl RDW 16.0 H (11.5-14.0) % Plt Count 208 (150-450) K/mm3 MPV 9.6 H (6-9.5) fl Gran % 59.1 (36.0-66.0) % Eos # (Auto) 0.04 (0-0.5) Absolute Lymphs (auto) 2.57 (1.0-4.6) Absolute Monos (auto) 0.88 (0.0-1.3) Lymphocytes % 29.7 (24.0-44.0) % Monocytes % 10.2 (0.0-12.0) % Eosinophils % 0.5 (0.00-5.0) % Basophils % 0.5 (0.0-0.4) % Absolute Granulocytes 5.12 (1.4-6.9) Basophils # 0.04 (0-0.4) PT (9.95-12.35) SECONDS INR (0.8-3.0) D-Dimer (215-500) ng/mL Sodium 140 (137-145) mmol/L Potassium 3.8 (3.5-5.1) mmol/L Chloride 102 (98-107) mmol/L Carbon Dioxide 25 (22-30) mmol/L Anion Gap 16.4 H (5-15) MEQ/L BUN 19 H (7-17) mg/dL Creatinine 1.37 H (0.52-1.04) mg/dL Estimated GFR 41.7 ML/MIN Glucose 112 H (74-106) mg/dL Lactic Acid (0.4-2.0) Calcium 9.6 (8.4-10.2) mg/dL Total Bilirubin 0.90 (0.2-1.3) mg/dL AST 33 (14-36) U/L ALT 19 (0-35) U/L Alkaline Phosphatase 150 H (38-126) U/L Troponin I (0.000-0.034) ng/mL NT-Pro-B Natriuret Pep 28064 H (0-900) pg/mL Serum Total Protein 8.3 H (6.3-8.2) g/dL Albumin 4.7 (3.5-5.0) g/dL - Progress Progress: improved Air Movement: good Discussed with : Elvis Will see patient in: hospital (observation) Counseled pt/family regarding: lab results, diagnosis, rad results - Departure Time of Disposition: 17:19 Departure Disposition: Observation Clinical Impression: Chest pain Qualifiers: Chest pain type: unspecified Qualified Code(s): R07.9 - Chest pain, unspecified CHF (congestive heart failure) Qualifiers: Heart failure type: unspecified Heart failure chronicity: unspecified Qualified Code(s): I50.9 - Heart failure, unspecified Atrial fibrillation Qualifiers: Atrial fibrillation type: unspecified Qualified Code(s): I48.91 - Unspecified atrial fibrillation Condition: Stable Critical Care Time: No Referrals: CHRIS KAYE NP [Primary Care Provider] - Instructions: Heart Failure
[2018-03-09] MEDS ORDERED: BABY ASPIRIN 81 MG CHEW PO ONE (15:33)
[2018-03-09] MEDS ORDERED: Zofran 4 MG/2 ML VIAL IV ONE (15:33)
[2018-03-09] MEDS ORDERED: Zofran 4 MG/2 ML VIAL ONE (15:37)
[2018-03-09] MEDS ORDERED: BABY ASPIRIN 81 MG CHEW ONE (15:38)
[2018-03-09 16:03] LABS: Lactic Acid 1.9 (0.4-2.0)
[2018-03-09 16:11] LABS: BASOPHIL % 0.5 % (0.0-0.4); Basophil (Absolute #) 0.04 (0-0.4); Eosinophil % 0.5 % (0.00-5.0); Eosinophil (Absolute #) 0.04 (0-0.5); Granulocyte Absolute (ANC) 5.12 (1.4-6.9); Granulocytes % 59.1 % (36.0-66.0); Hematocrit 35.4 % (35-47); Hemoglobin 11.5 gm/dl (12.0-16.0); Lymphocyte (Absolute #) 2.57 (1.0-4.6); Lymphocytes % 29.7 % (24.0-44.0); Mean Cell Volume 92.2 fl (78-100); Mean Corpuscular Hemoglobin 29.9 pg (26-32); Mean Corpuscular Hgb Concent. 32.5 g/dl (32-36); Mean Platelet Volume 9.6 fl (6-9.5); Monocyte (Absolute #) 0.88 (0.0-1.3); Monocytes % 10.2 % (0.0-12.0); Platelet Count 208 K/mm3 (150-450); Red Blood Count 3.84 M/mm3 (4.1-5.4); White Blood Count 8.7 K/mm3 (4.0-10.5)
[2018-03-09 16:32] LABS: INR 1.21 (0.8-3.0)
--- NOTE | 2018-03-09 16:43 | XRAY ---
Indication: Short of breath. Comparison: November 03, 2017. Portable chest is clear. Heart is not enlarged for AP portable technique again with left-sided AICD and right Port-A-Cath. Bony thorax intact again with mild osteopenia, degenerative changes, and right AC separation. Impression: Stable nonacute chest with chronic features.
[2018-03-09 16:51] LABS: ALBUMIN 4.7 g/dL (3.5-5.0); ANION GAP 16.4 MEQ/L (5-15); BILIRUBIN,TOTAL 0.9 mg/dL (0.2-1.3); Calcium 9.6 mg/dL (8.4-10.2); Creatinine 1 1.37 mg/dL (0.52-1.04); Potassium 3.8 mmol/L (3.5-5.1); Total Protein 8.3 g/dL (6.3-8.2)
[2018-03-09] MEDS ORDERED: ENOXAPARIN SODIUM SQ ONE ×2 (17:12→17:24)
[2018-03-09] MEDS ORDERED: NovoLOG Insulin SQ PRN (17:47)
[2018-03-09] MEDS ORDERED: TYLENOL 325 MG PO PRN (17:47)
[2018-03-09] MEDS: ENOXAPARIN SODIUM SQ SCH (18:00)
[2018-03-09] MEDS ORDERED: DUONEB 0.5-3 MG/3 ml Neb IH SCH (19:00)
[2018-03-09] MEDS ORDERED: MSIR 15 MG PO SCH (20:15)
[2018-03-09] MEDS ORDERED: DUONEB 0.5-3 MG/3 ml Neb IH PRN (21:15)
[2018-03-09] MEDS: Zofran 4 MG/2 ML VIAL IV PRN (21:37)
[2018-03-09] MEDS: Zanaflex 4 MG PO SCH (21:51)
[2018-03-09] MEDS: SYNTHROID 100 MCG PO SCH (21:51)
[2018-03-09] MEDS ORDERED: Coreg 3.125 MG PO SCH (22:00)
[2018-03-09] MEDS ORDERED: Lasix 20 MG/2 ML IV ONE (22:00)
[2018-03-10] MEDS ORDERED: Sodium Chloride 0.9% 500 ML 500 ML IV ONE (00:39)
[2018-03-10 04:35] LABS: TROPONIN 0.015 ng/mL (0.000-0.034)
[2018-03-10] MEDS: ENOXAPARIN SODIUM SQ SCH ×2 (06:28→21:26)
[2018-03-10 07:39] LABS: Calcium 8.8 mg/dL (8.4-10.2); Creatinine 1 1.27 mg/dL (0.52-1.04); Potassium 3.9 mmol/L (3.5-5.1)
[2018-03-10] MEDS ORDERED: Sodium Chloride 0.9% 10 ML FLUSH Syringe IV PRN (08:40)
--- NOTE | 2018-03-10 09:45 | PCM.HP ---
History of Present Illness - Chief Complaint Chief Complaint: Shortness of Breath History of Present Illness: is a 62 year old female with a history of mild CAD and PE who presented with a several day history of sharp, lower chest pain. Worse with cough or a deep inspiration, patient has had multiple clots. states she developed a LLE DVT while on pradaxa in the past, has had PE and is currently on eliquis and compliant. states she had a heart cath 3-4 years ago with mild blockage/no intervention. - Review of Systems Constitutional: No Fever, No Chills Respiratory: Short Of Breath Cardiac: Chest Pain Abdominal/Gastrointestinal: No Abdominal Pain, No Nausea, No Vomiting, No Diarrhea Genitourinary Symptoms: No Dysuria Musculoskeletal: Back Pain Skin: No Rash All Other Systems: Reviewed and Negative Medications & Allergies Home Medications: Home Medication List Omeprazole [Prilosec] 40 mg PO DAILY 11/24/11 [History Confirmed 03/09/18] Linagliptin [Tradjenta] 5 mg PO DAILY 01/11/15 [History Confirmed 03/09/18] Carvedilol 3.125 mg [Coreg 3.125 MG] 3.125 mg PO BID 06/08/15 [History Confirmed 03/09/18] Nitroglycerin 0.4 mg Tablet [Nitrostat 0.4 MG Tablet] 0.4 mg SL UD PRN [History Confirmed 03/09/18] Levothyroxine Sodium 100 Mcg [Synthroid 100 Mcg] 300 mcg PO BID 03/20/16 [ History Confirmed 03/09/18] Apixaban [Eliquis] 5 mg PO BID 02/11/17 [History Confirmed 03/09/18] Morphine Sulfate 15 mg PO QID PRN 11/10/17 [History Confirmed 03/09/18] Tizanidine HCl 4 mg PO BID 11/10/17 [History Confirmed 03/09/18] Furosemide [Lasix] 10 mg PO DAILY PRN 03/09/18 [History Confirmed 03/09/18] Allergies/Adverse Reactions: Allergies Allergy/AdvReac Type Severity Reaction Status Date / Time codeine [Codeine] Allergy Mild Nausea and Verified 03/09/18 15:36 Vomiting Sulfa (Sulfonamide Allergy Mild Nausea and Verified 03/09/18 15:36 Antibiotics) Vomiting [Sulfa(Sulfonamide Antibiotics)] adhesive Allergy Verified 03/09/18 15:36 acetaminophen [From Percocet] AdvReac Vomiting Verified 03/09/18 15:36 oxycodone [From Percocet] AdvReac Vomiting Verified 03/09/18 15:36 - Past Medical History Past Medical History: Yes Neurological History: Migraines, Stroke ENT History: No Pertinent History Cardiac History: Angina, Arrhythmia, Congenital Heart Disease, Congestive Heart Failure, Coronary Artery Disease, Hypertension Respiratory History: Asthma, CHF, Pneumonia, Pulmonary Embolism Endocrine Medical History: Diabetes Type II, Thyroid Cancer Musculoskelatal History: Other GI Medical History: GERD, Hernia, Other History: Other Pyscho-Social History: No Pertinent History Reproductive Disorders: Endometriosis Comment: THYROID CA 5 YEARS AGO; A FIB, CAROTID STENOSIS. States IBS or " part of my colon", Has illeostomy.Back fusion ,lower back in september 2017 and then 5 I&D after in september and october 2017 and November 2017 at [facility]. hx kidney stones. Myocarditis. - Female History Are you now?: No - Past Surgical History Past Surgical History: Yes Neuro Surgical History: No Pertinent History Cardiac History: Cardiac Catheterization, Internal Defibrillator, Pacemaker Respiratory Surgery: No Pertinent History GI Surgical History: Appendectomy, Cholecystectomy, Colon Resection, Hernia Repair, Other Genitourinary Surgical Hx: No Pertinent History Musculskeletal Surgical Hx: Orthopedic Surgery Female Surgical History: Hysterectomy Other Surgical History: THYROID REMOVED, 40% and 50% blockages found with last heart cath about 4 years ago. ankle surgery d/t break,ileostomy, CVL port removed and replaced, PICC line placed for CVL surgery September 2015. ostomy repair due to blockage 09/02, back surgery and 4 I&D september and october and november 2017. TLIF fused discs in back - Social History Smoking Status: Never smoker Exposure to second hand smoke: No Alcohol: None Drug Use: none Significant Family History: heart disease, cancer, diabetes - Physical Exam Vital Signs: Vital Signs - 24 hr Temp Pulse Resp BP BP Pulse Ox 03/10/18 07:08 98.0 F 60 18 86/54 94 L 03/10/18 07:01 96 03/10/18 05:37 98.2 F 61 14 96/55 97 03/10/18 02:30 90/60 03/10/18 02:25 60 78/45 03/10/18 01:39 60 85/49 03/10/18 00:00 97.4 F 60 13 73/46 90 L 03/09/18 21:27 91 L 03/09/18 21:16 60 14 85 L 03/09/18 20:00 97.5 F 64 14 114/66 91 L 03/09/18 19:51 97.5 F 64 21 114/66 91 L 03/09/18 15:42 63 30 H 96 03/09/18 15:17 97.3 F 63 30 H 128/78 94 L Oxygen-Last 24 hours O2 Percentage 6 Liters = 44% O2 Percentage 5 Liters = 40% O2 Percentage 2 Liters = 28% O2 Percentage 2 Liters = 28% Oxygen Flowrate (L/min)-RT 2 General Appearance: no apparent distress Neurologic Exam: alert, oriented x 3, cooperative Eye Exam: PERRL/EOMI, eyes nml inspection Respiratory Exam: lungs clear, diminished breath sounds, prolonged expirations, No respiratory distress Cardiovascular Exam: regular rate/rhythm, normal heart sounds, normal peripheral pulses Gastrointestinal/Abdomen Exam: soft, normal bowel sounds, No tenderness, No mass Extremity Exam: normal inspection, normal range of motion, pelvis stable Skin Exam: normal color, warm, dry, No rash Results - Labs Lab/Micro Results: Accuchecks Date 03/10/18 Time 08:00 Accucheck Value: 114 Accucheck Value: 102 Lab Results-Last 24 Hours 03/09/18 03/09/18 03/09/18 Range/Units 15:50 15:50 15:50 WBC 8.7 (4.0-10.5) K/mm3 RBC 3.84 L (4.1-5.4) M/mm3 Hgb 11.5 L (12.0-16.0) gm/dl Hct 35.4 (35-47) % MCV 92.2 (78-100) fl MCH 29.9 (26-32) pg MCHC 32.5 (32-36) g/dl RDW 16.0 H (11.5-14.0) % Plt Count 208 (150-450) K/mm3 MPV 9.6 H (6-9.5) fl Gran % 59.1 (36.0-66.0) % Eos # (Auto) 0.04 (0-0.5) Absolute Lymphs (auto) 2.57 (1.0-4.6) Absolute Monos (auto) 0.88 (0.0-1.3) Lymphocytes % 29.7 (24.0-44.0) % Monocytes % 10.2 (0.0-12.0) % Eosinophils % 0.5 (0.00-5.0) % Basophils % 0.5 (0.0-0.4) % Absolute Granulocytes 5.12 (1.4-6.9) Basophils # 0.04 (0-0.4) PT 14.1 H (9.95-12.35) SECONDS INR 1.21 (0.8-3.0) D-Dimer 94140 H* (215-500) ng/mL Sodium 140 (137-145) mmol/L Potassium 3.8 (3.5-5.1) mmol/L Chloride 102 (98-107) mmol/L Carbon Dioxide 25 (22-30) mmol/L Anion Gap 16.4 H (5-15) MEQ/L BUN 19 H (7-17) mg/dL Creatinine 1.37 H (0.52-1.04) mg/dL Estimated GFR 41.7 ML/MIN Glucose 112 H (74-106) mg/dL Lactic Acid (0.4-2.0) Calcium 9.6 (8.4-10.2) mg/dL Total Bilirubin 0.90 (0.2-1.3) mg/dL AST 33 (14-36) U/L ALT 19 (0-35) U/L Alkaline Phosphatase 150 H (38-126) U/L Troponin I (0.000-0.034) ng/mL NT-Pro-B Natriuret Pep 03859 H (0-900) pg/mL Serum Total Protein 8.3 H (6.3-8.2) g/dL Albumin 4.7 (3.5-5.0) g/dL 03/09/18 03/09/18 03/09/18 Range/Units 15:50 16:00 19:19 WBC (4.0-10.5) K/mm3 RBC (4.1-5.4) M/mm3 Hgb (12.0-16.0) gm/dl Hct (35-47) % MCV (78-100) fl MCH (26-32) pg MCHC (32-36) g/dl RDW (11.5-14.0) % Plt Count (150-450) K/mm3 MPV (6-9.5) fl Gran % (36.0-66.0) % Eos # (Auto) (0-0.5) Absolute Lymphs (auto) (1.0-4.6) Absolute Monos (auto) (0.0-1.3) Lymphocytes % (24.0-44.0) % Monocytes % (0.0-12.0) % Eosinophils % (0.00-5.0) % Basophils % (0.0-0.4) % Absolute Granulocytes (1.4-6.9) Basophils # (0-0.4) PT (9.95-12.35) SECONDS INR (0.8-3.0) D-Dimer (215-500) ng/mL Sodium (137-145) mmol/L Potassium (3.5-5.1) mmol/L Chloride (98-107) mmol/L Carbon Dioxide (22-30) mmol/L Anion Gap (5-15) MEQ/L BUN (7-17) mg/dL Creatinine (0.52-1.04) mg/dL Estimated GFR ML/MIN Glucose (74-106) mg/dL Lactic Acid 1.9 (0.4-2.0) Calcium (8.4-10.2) mg/dL Total Bilirubin (0.2-1.3) mg/dL AST (14-36) U/L ALT (0-35) U/L Alkaline Phosphatase (38-126) U/L Troponin I 0.018 0.020 (0.000-0.034) ng/mL NT-Pro-B Natriuret Pep (0-900) pg/mL Serum Total Protein (6.3-8.2) g/dL Albumin (3.5-5.0) g/dL 03/09/18 03/10/18 03/10/18 Range/Units 21:25 00:30 03:30 WBC (4.0-10.5) K/mm3 RBC (4.1-5.4) M/mm3 Hgb (12.0-16.0) gm/dl Hct (35-47) % MCV (78-100) fl MCH (26-32) pg MCHC (32-36) g/dl RDW (11.5-14.0) % Plt Count (150-450) K/mm3 MPV (6-9.5) fl Gran % (36.0-66.0) % Eos # (Auto) (0-0.5) Absolute Lymphs (auto) (1.0-4.6) Absolute Monos (auto) (0.0-1.3) Lymphocytes % (24.0-44.0) % Monocytes % (0.0-12.0) % Eosinophils % (0.00-5.0) % Basophils % (0.0-0.4) % Absolute Granulocytes (1.4-6.9) Basophils # (0-0.4) PT (9.95-12.35) SECONDS INR (0.8-3.0) D-Dimer (215-500) ng/mL Sodium (137-145) mmol/L Potassium (3.5-5.1) mmol/L Chloride (98-107) mmol/L Carbon Dioxide (22-30) mmol/L Anion Gap (5-15) MEQ/L BUN (7-17) mg/dL Creatinine (0.52-1.04) mg/dL Estimated GFR ML/MIN Glucose (74-106) mg/dL Lactic Acid (0.4-2.0) Calcium (8.4-10.2) mg/dL Total Bilirubin (0.2-1.3) mg/dL AST (14-36) U/L ALT (0-35) U/L Alkaline Phosphatase (38-126) U/L Troponin I 0.013 0.017 0.015 (0.000-0.034) ng/mL NT-Pro-B Natriuret Pep 80458 H (0-900) pg/mL Serum Total Protein (6.3-8.2) g/dL Albumin (3.5-5.0) g/dL 03/10/18 Range/Units 03:30 WBC (4.0-10.5) K/mm3 RBC (4.1-5.4) M/mm3 Hgb (12.0-16.0) gm/dl Hct (35-47) % MCV (78-100) fl MCH (26-32) pg MCHC (32-36) g/dl RDW (11.5-14.0) % Plt Count (150-450) K/mm3 MPV (6-9.5) fl Gran % (36.0-66.0) % Eos # (Auto) (0-0.5) Absolute Lymphs (auto) (1.0-4.6) Absolute Monos (auto) (0.0-1.3) Lymphocytes % (24.0-44.0) % Monocytes % (0.0-12.0) % Eosinophils % (0.00-5.0) % Basophils % (0.0-0.4) % Absolute Granulocytes (1.4-6.9) Basophils # (0-0.4) PT (9.95-12.35) SECONDS INR (0.8-3.0) D-Dimer (215-500) ng/mL Sodium 141 (137-145) mmol/L Potassium 3.9 (3.5-5.1) mmol/L Chloride 108 H (98-107) mmol/L Carbon Dioxide 19 L (22-30) mmol/L Anion Gap 18.0 H (5-15) MEQ/L BUN 23 H (7-17) mg/dL Creatinine 1.27 H (0.52-1.04) mg/dL Estimated GFR 45.5 ML/MIN Glucose 116 H (74-106) mg/dL Lactic Acid (0.4-2.0) Calcium 8.8 (8.4-10.2) mg/dL Total Bilirubin (0.2-1.3) mg/dL AST (14-36) U/L ALT (0-35) U/L Alkaline Phosphatase (38-126) U/L Troponin I (0.000-0.034) ng/mL NT-Pro-B Natriuret Pep (0-900) pg/mL Serum Total Protein (6.3-8.2) g/dL Albumin (3.5-5.0) g/dL Accuchecks Date 03/10/18 Time 08:00 Accucheck Value: 114 Accucheck Value: 102 - Radiology Impressions Radiology Exams & Impressions: Radiology Procedures Category Date Time Status CHEST 1 VIEW (PORTABLE) Stat Exams 03/09/18 15:40 Completed PULMONARY PERF VENTILATION [NUCMED] Urgent Exams 03/10/18 08:00 Ordered - Other Procedures and Tests Respiratory Therapy 03/09/18 17:47 Oxygen NASAL CANNULA 2 lpm 03/09/18 21:16 Respiratory Therapy Assessment DAILY Assessment/Plan (1) Chest pain Current Visit: Yes Status: Acute Onset Date: ~03/09/18 Qualifiers: Chest pain type: unspecified Qualified Code(s): R07.9 - Chest pain, unspecified Assessment & Plan: R/O MT, VQ scan pending. hold eliquis and continue therapeutic lovenox. if VQ negative may resume eliquis and await cardiology recommendations. Code(s): R07.9 - CHEST PAIN, UNSPECIFIED (2) CHF (congestive heart failure) Current Visit: Yes Status: Acute Onset Date: ~03/09/18 Qualifiers: Heart failure type: unspecified Heart failure chronicity: unspecified Qualified Code(s): I50.9 - Heart failure, unspecified Assessment & Plan: continue to diurese gently, has elevation of BNP Code(s): I50.9 - HEART FAILURE, UNSPECIFIED (3) Elevated d-dimer Current Visit: Yes Status: Acute Onset Date: ~03/09/18 Assessment & Plan: VQ scan pending. Code(s): R79.89 - OTHER SPECIFIED ABNORMAL FINDINGS OF BLOOD CHEMISTRY (4) Hypoxia Current Visit: Yes Status: Acute Onset Date: ~03/09/18 Code(s): R09.02 - HYPOXEMIA (5) SOB (shortness of breath) Current Visit: Yes Status: Acute Onset Date: ~03/09/18 Code(s): R06.02 - SHORTNESS OF BREATH (6) Chronic back pain Current Visit: No Status: Chronic Code(s): M54.9 - DORSALGIA, UNSPECIFIED; G89.29 - OTHER CHRONIC PAIN
[2018-03-10] MEDS: SYNTHROID 100 MCG PO SCH ×2 (10:15→21:26)
[2018-03-10] MEDS: Protonix 40MG Tablet PO SCH (10:15)
[2018-03-10] MEDS: Zanaflex 4 MG PO SCH ×2 (10:16→19:38)
--- NOTE | 2018-03-10 10:44 | XRAY ---
Indication: Chest pain with inspiration. Short of breath. Elevated d-dimer. Comparison: None Patient received 5.4 mCi technetium 99 MAA for the perfusion portion of the exam. Patient inhaled 36 mCi of aerosolized technetium 99 DTPA for the ventilation portion of the exam. Multiple planar images obtained. Perfusion images demonstrates homogeneous radiopharmaceutical activity bilaterally without focal segmental/subsegmental perfusion defects. Left-sided AICD with lead and right Port-A-Cath nonsegmental defects. Perfusion images also demonstrates homogeneous radiopharmaceutical activity bilaterally. Small amount of ingested GI radiopharmaceutical activity. Impression: Nonsegmental perfusion defects associated with left-sided AICD with lead and right Port-A-Cath. No mismatched segmental/subsegmental ventilation perfusion defects. PIOPED criteria for pulmonary embolus is low probability.
[2018-03-10] MEDS: ROCEPHIN 1 Gm-D5w 50 ml Bag** 1 G/50 ML IVPB IV SCH (12:19)
[2018-03-10] MEDS: Nitrostat 0.4 MG Tablet SL PRN ×2 (13:11→13:22)
[2018-03-10] MEDS: Sodium Chloride 0.9% 10 ML FLUSH Syringe IV SCH ×2 (14:00→21:26)
[2018-03-10] MEDS: MSIR 15 MG PO PRN ×2 (14:49→21:26)
--- NOTE | 2018-03-10 16:26 | XRAY ---
Indication: Short of breath. Elevated d-dimer. 2-dimensional sonogram and color Doppler imaging of the major venous vessels of the left and right leg was performed. Comparison: January 12, 2013. Examination of the right leg demonstrates new nonoccluding thrombus in the popliteal vein. Remaining common femoral, superficial femoral, posterior tibial, and greater saphenous veins negative for DVT with normal venous waveforms. Examination of the left leg demonstrates new minimal nonoccluding thrombus in the proximal superficial femoral vein. Remaining common femoral, popliteal, posterior tibial, and greater saphenous veins negative for DVT with normal venous waveforms. Impression: New nonoccluding DVTs in the right popliteal and left superficial femoral veins.
[2018-03-10] MEDS ORDERED: ENOXAPARIN SODIUM SQ SCH (22:00)
[2018-03-10] MEDS ORDERED: Lasix 20 MG/2 ML IV ONE (22:00)
[2018-03-11] MEDS: Zofran 4 MG/2 ML VIAL IV PRN (03:42)
[2018-03-11 05:38] LABS: BASOPHIL % 0.6 % (0.0-0.4); Basophil (Absolute #) 0.04 (0-0.4); Eosinophil % 1.7 % (0.00-5.0); Eosinophil (Absolute #) 0.11 (0-0.5); Granulocyte Absolute (ANC) 3.84 (1.4-6.9); Granulocytes % 59.2 % (36.0-66.0); Hematocrit 33.9 % (35-47); Hemoglobin 10.7 gm/dl (12.0-16.0); Lymphocyte (Absolute #) 1.76 (1.0-4.6); Lymphocytes % 27.1 % (24.0-44.0); Mean Cell Volume 93.9 fl (78-100); Mean Corpuscular Hemoglobin 29.6 pg (26-32); Mean Corpuscular Hgb Concent. 31.6 g/dl (32-36); Mean Platelet Volume 9.8 fl (6-9.5); Monocyte (Absolute #) 0.74 (0.0-1.3); Monocytes % 11.4 % (0.0-12.0); Platelet Count 226 K/mm3 (150-450); Red Blood Count 3.61 M/mm3 (4.1-5.4); Red Cell Distribution Width 15.6 % (11.5-14.0); White Blood Count 6.5 K/mm3 (4.0-10.5)
[2018-03-11 06:05] LABS: ANION GAP 12.8 MEQ/L (5-15); Calcium 9.2 mg/dL (8.4-10.2); Creatinine 1 1.3 mg/dL (0.52-1.04); Potassium 3.8 mmol/L (3.5-5.1)
[2018-03-11] MEDS: Sodium Chloride 0.9% 10 ML FLUSH Syringe IV SCH ×2 (06:14→19:36)
--- NOTE | 2018-03-11 08:01 | PCM.NOTE ---
Date and Time: 03/11/18 0758 Subjective Assessment: patient continues to complain of chest pain, upper back pain and significant dyspnea with minimal exertion. requiring oxygen at fairly high levels to maintain sats since admission Objective Exam General Appearance: no apparent distress Neurologic Exam: alert, oriented x 3 Skin Exam: normal color, warm, dry Respiratory Exam: normal breath sounds, lungs clear, diminished breath sounds, prolonged expirations, No respiratory distress Cardiovascular Exam: regular rate/rhythm, normal heart sounds Gastrointestinal/Abdomen Exam: soft, No tenderness, No mass Extremity Exam: normal inspection, normal range of motion OBJECTIVE DATA Vital Signs: Vital Signs - 24 hr Temp Pulse Resp BP BP Pulse Ox 03/11/18 07:18 62 18 95 03/11/18 07:00 97.6 F 62 18 113/64 95 03/11/18 03:00 98.4 F 63 18 94/53 95 03/10/18 23:00 98.2 F 67 16 89/53 93 L 03/10/18 19:43 97.8 F 64 19 128/81 98 03/10/18 19:37 62 17 94 L 03/10/18 16:41 95 03/10/18 16:38 98.2 F 60 14 133/73 99 03/10/18 16:32 96 03/10/18 14:55 96 03/10/18 13:22 60 116/69 03/10/18 13:11 62 125/69 03/10/18 11:57 97.7 F 63 22 118/57 89 L 03/10/18 10:56 97 Oxygen-Last 24 hours O2 Percentage 4 Liters = 36% O2 Percentage 4 Liters = 36% O2 Percentage 4 Liters = 36% O2 Percentage 4 Liters = 36% O2 Percentage 3 Liters = 32% Pain Assessment - Last Documented Pain Intensity 0 Pain Scale Used 0-10 Pain Scale Intake and Output: Intake & Output 03/08/18 03/09/18 03/10/18 03/11/18 11:59 11:59 11:59 11:59 Intake Total 760 760 Output Total 850 1300 Balance -90 -540 Weight 94.7 kg 94 kg Lab Results: Accuchecks Date 03/10/18 Date 03/10/18 Date 03/10/18 Time 16:30 Time 11:30 Accucheck Value: 107 Accucheck Value: 91 Accucheck Value: 99 Accucheck Value: 117 Lab Results-Last 24 Hours 03/11/18 03/11/18 Range/Units 05:20 05:20 WBC 6.5 (4.0-10.5) K/mm3 RBC 3.61 L (4.1-5.4) M/mm3 Hgb 10.7 L (12.0-16.0) gm/dl Hct 33.9 L (35-47) % MCV 93.9 (78-100) fl MCH 29.6 (26-32) pg MCHC 31.6 L (32-36) g/dl RDW 15.6 H (11.5-14.0) % Plt Count 226 (150-450) K/mm3 MPV 9.8 H (6-9.5) fl Gran % 59.2 (36.0-66.0) % Eos # (Auto) 0.11 (0-0.5) Absolute Lymphs (auto) 1.76 (1.0-4.6) Absolute Monos (auto) 0.74 (0.0-1.3) Lymphocytes % 27.1 (24.0-44.0) % Monocytes % 11.4 (0.0-12.0) % Eosinophils % 1.7 (0.00-5.0) % Basophils % 0.6 (0.0-0.4) % Absolute Granulocytes 3.84 (1.4-6.9) Basophils # 0.04 (0-0.4) Sodium 140 (137-145) mmol/L Potassium 3.8 (3.5-5.1) mmol/L Chloride 101 (98-107) mmol/L Carbon Dioxide 29 (22-30) mmol/L Anion Gap 12.8 (5-15) MEQ/L BUN 21 H (7-17) mg/dL Creatinine 1.30 H (0.52-1.04) mg/dL Estimated GFR 44.3 ML/MIN Glucose 107 H (74-106) mg/dL Calcium 9.2 (8.4-10.2) mg/dL NT-Pro-B Natriuret Pep 9130 H (0-900) pg/mL Radiology Exams: Radiology Procedures Category Date Time Status CHEST 1 VIEW (PORTABLE) Stat Exams 03/09/18 15:40 Completed ECHO W/2D AND DOPPLER [US] Routine Exams 03/10/18 14:35 Taken PULMONARY PERF VENTILATION [NUCMED] Urgent Exams 03/10/18 08:00 Completed VENOUS BILATERAL EXTREMITY [US] Routine Exams 03/10/18 14:35 Completed Assessment/Plan (1) Chest pain Current Visit: Yes Status: Acute Onset Date: ~03/09/18 Qualifiers: Chest pain type: unspecified Qualified Code(s): R07.9 - Chest pain, unspecified Assessment & Plan: VA ruled out, VQ low probability but has new clot in lower extremity in spite of being on eliquis. appreciate cardiology and pulmonology input. may need to consider warfarin therapy Code(s): R07.9 - CHEST PAIN, UNSPECIFIED (2) CHF (congestive heart failure) Current Visit: Yes Status: Acute Onset Date: ~03/09/18 Qualifiers: Heart failure type: unspecified Heart failure chronicity: unspecified Qualified Code(s): I50.9 - Heart failure, unspecified Assessment & Plan: stable on exam Code(s): I50.9 - HEART FAILURE, UNSPECIFIED (3) Elevated d-dimer Current Visit: Yes Status: Acute Onset Date: ~03/09/18 Assessment & Plan: continue lovenox at this time Code(s): R79.89 - OTHER SPECIFIED ABNORMAL FINDINGS OF BLOOD CHEMISTRY (4) Hypoxia Current Visit: Yes Status: Acute Onset Date: ~03/09/18 Code(s): R09.02 - HYPOXEMIA (5) SOB (shortness of breath) Current Visit: Yes Status: Acute Onset Date: ~03/09/18 Code(s): R06.02 - SHORTNESS OF BREATH (6) Chronic back pain Current Visit: No Status: Chronic Code(s): M54.9 - DORSALGIA, UNSPECIFIED; G89.29 - OTHER CHRONIC PAIN (7) Recurrent deep vein thrombosis (DVT) Current Visit: Yes Status: Acute Assessment & Plan: failed eliquis and pradaxa according to patient if she is indeed compliant with meds Code(s): I82.409 - ACUTE EMBOLISM AND THOMBOS UNSP DEEP VN UNSP LOWER EXTREMITY
[2018-03-11] MEDS: MSIR 15 MG PO PRN ×2 (09:00→19:48)
[2018-03-11] MEDS: SYNTHROID 100 MCG PO SCH (09:57)
[2018-03-11] MEDS: Zanaflex 4 MG PO SCH (09:58)
[2018-03-11] MEDS: Protonix 40MG Tablet PO SCH (09:58)
[2018-03-11] MEDS: ENOXAPARIN SODIUM SQ SCH (09:58)
[2018-03-11] MEDS: ROCEPHIN 1 Gm-D5w 50 ml Bag** 1 G/50 ML IVPB IV SCH (10:01)
--- NOTE | 2018-03-11 17:17 | PCM.DS ---
Discharge Summary Date of Admission: 03/10/18 09:41 Admitting Physician: HARRY IRIZARRY Consults: Consults on Case 03/10/18 09:40 Consult Cardiology ROUTINE 03/10/18 14:38 Consult Pulmonology ROUTINE Primary Care Provider: CHRIS KAYE Allergies Allergies codeine [Codeine] Allergy (Mild, Verified 03/09/18 15:36) Nausea and Vomiting Sulfa (Sulfonamide Antibiotics) [Sulfa(Sulfonamide Antibiotics)] Allergy (Mild, Verified 03/09/18 15:36) Nausea and Vomiting adhesive Allergy (Verified 03/09/18 15:36) acetaminophen [From Percocet] Adverse Reaction (Verified 03/09/18 15:36) Vomiting oxycodone [From Percocet] Adverse Reaction (Verified 03/09/18 15:36) Vomiting Hospital Summary - Hospital Course Hospital Course: patient was admitted with chest pain and hypoxia, with BLE DVT that are new and failed eliquis, has had pradaxa failure in the past. high suspicion of PE clinically in spite of VQ results. seen by cardiology and pulmonology, recommend IVC filter at this time - Vitals & Intake/Output Vital Signs: Vital Signs Temperature 98.0 F 03/11/18 15:00 Pulse Rate 60 03/11/18 15:00 Respiratory Rate 18 03/11/18 15:00 Blood Pressure 85/61 03/11/18 15:00 O2 Sat by Pulse Oximetry 95 03/11/18 15:00 Oxygen-Last Documented O2 Percentage 4 Liters = 36% Intake & Output: Intake & Output 03/09/18 03/10/18 03/11/18 03/12/18 11:59 11:59 11:59 11:59 Intake Total 760 1240 240 Output Total 850 1300 Balance -90 -60 240 Weight 94.7 kg 94 kg - Lab Result Diagrams: 03/11/18 05:20 03/11/18 05:20 Lab Results-Last 24 Hrs: Accuchecks Date 03/10/18 Accucheck Value: 127 Accucheck Value: 107 Accucheck Value: 91 Lab Results-Last 24 Hours 03/11/18 03/11/18 Range/Units 05:20 05:20 WBC 6.5 (4.0-10.5) K/mm3 RBC 3.61 L (4.1-5.4) M/mm3 Hgb 10.7 L (12.0-16.0) gm/dl Hct 33.9 L (35-47) % MCV 93.9 (78-100) fl MCH 29.6 (26-32) pg MCHC 31.6 L (32-36) g/dl RDW 15.6 H (11.5-14.0) % Plt Count 226 (150-450) K/mm3 MPV 9.8 H (6-9.5) fl Gran % 59.2 (36.0-66.0) % Eos # (Auto) 0.11 (0-0.5) Absolute Lymphs (auto) 1.76 (1.0-4.6) Absolute Monos (auto) 0.74 (0.0-1.3) Lymphocytes % 27.1 (24.0-44.0) % Monocytes % 11.4 (0.0-12.0) % Eosinophils % 1.7 (0.00-5.0) % Basophils % 0.6 (0.0-0.4) % Absolute Granulocytes 3.84 (1.4-6.9) Basophils # 0.04 (0-0.4) Sodium 140 (137-145) mmol/L Potassium 3.8 (3.5-5.1) mmol/L Chloride 101 (98-107) mmol/L Carbon Dioxide 29 (22-30) mmol/L Anion Gap 12.8 (5-15) MEQ/L BUN 21 H (7-17) mg/dL Creatinine 1.30 H (0.52-1.04) mg/dL Estimated GFR 44.3 ML/MIN Glucose 107 H (74-106) mg/dL Calcium 9.2 (8.4-10.2) mg/dL NT-Pro-B Natriuret Pep 9130 H (0-900) pg/mL Micro Results-Entire Visit: Microbiology 03/09/18 15:50 Blood Culture - Preliminary Blood NO GROWTH TO DATE 03/09/18 15:50 Blood Culture Gram Stain - Final Blood Blood Culture - Preliminary No growth. Accuchecks Date 03/10/18 Accucheck Value: 127 Accucheck Value: 107 Accucheck Value: 91 - Radiology Exams Ordered Rad Exams-Entire Visit: Radiology Procedures Category Date Time Status ECHO W/2D AND DOPPLER [US] Routine Exams 03/10/18 14:35 Taken PULMONARY PERF VENTILATION [NUCMED] Urgent Exams 03/10/18 08:00 Completed VENOUS BILATERAL EXTREMITY [US] Routine Exams 03/10/18 14:35 Completed - Procedures and Test Procedures and Tests throughout Hospitalization: Therapy Orders & Screens 03/09/18 15:29 Respiratory Nebulizer STAT Comment: Diagnosis: Shortness of Breath 03/09/18 15:41 Respiratory Therapy Assessment DAILY Comment: Diagnosis: Shortness of Breath 03/09/18 15:42 Peak Expiratory Flow Rate ONCE Comment: Reason For Exam: Diagnosis: Shortness of Breath 03/09/18 17:47 Oxygen NASAL CANNULA 2 lpm Comment: Diagnosis: Shortness of Breath 03/09/18 20:04 RT Screen per Nursing Assess ONCE Comment: Protocol Order Physician Instructions: Greater than 3 points order RT Admission Screen Reason For Exam: Triggered on Admission Diagnosis: Shortness of Breath Diagnosis: Shortness of Breath Pneumonia: No Home O2: No Asthma: Yes CHF: Yes Home CPAP/BIPAP: No Home Nebs/MDI: No Total Points: 7 03/09/18 21:16 Respiratory Therapy Assessment DAILY Comment: Diagnosis: Shortness of Breath Discharge Exam General Appearance: no apparent distress Neurologic Exam: alert Skin Exam: normal color, warm, dry Respiratory Exam: normal breath sounds, lungs clear, No respiratory distress Cardiovascular Exam: regular rate/rhythm, normal heart sounds Gastrointestinal/Abdomen Exam: soft, No tenderness, No mass Extremity Exam: swelling Final Diagnosis/Problem List - Final Discharge Diagnosis/Problem (1) Chest pain Current Visit: Yes Status: Acute Onset Date: ~03/09/18 Assessment & Plan: failed eliquis, transferring for IVC filter placement per Dr Tejeda and Dr Duarte recommendation. appreciate their input (2) CHF (congestive heart failure) Current Visit: Yes Status: Acute Onset Date: ~03/09/18 (3) Elevated d-dimer Current Visit: Yes Status: Acute Onset Date: ~03/09/18 (4) Hypoxia Current Visit: Yes Status: Acute Onset Date: ~03/09/18 (5) SOB (shortness of breath) Current Visit: Yes Status: Acute Onset Date: ~03/09/18 (6) Chronic back pain Current Visit: No Status: Chronic (7) Recurrent deep vein thrombosis (DVT) Current Visit: Yes Status: Acute - Discharge Disposition: [facility] Condition: Stable Prescriptions: No Action Omeprazole [Prilosec] 40 mg PO DAILY Linagliptin [Tradjenta] 5 mg PO DAILY Carvedilol 3.125 mg [Coreg 3.125 MG] 3.125 mg PO BID Nitroglycerin 0.4 mg Tablet [Nitrostat 0.4 MG Tablet] 0.4 mg SL UD PRN PRN Reason: Chest Pain Levothyroxine Sodium 100 Mcg [Synthroid 100 Mcg] 300 mcg PO BID Apixaban [Eliquis] 5 mg PO BID Morphine Sulfate 15 mg PO QID PRN PRN Reason: Pain Tizanidine HCl 4 mg PO BID Furosemide [Lasix] 10 mg PO DAILY PRN PRN Reason: swelling
[2018-03-11 19:37] VITALS: BP 100/60
[2018-03-11 20:00] VITALS: PULSE 62; O2SAT 94
--- NOTE | 2018-03-12 08:43 | CONS ---
CONSULT DATE: 03/11/2018 REASON FOR CONSULT: Shortness of breath, hypoxemia. HISTORY: Mayra Mullins is a 62 year-old woman with extensive history of cardiac problems followed by Dr. Duarte, who has been on anticoagulation for chronic atrial fibrillation. The patient apparently had pulmonary embolization a few months back and was switched from Pradaxa to Eliquis. The patient is reportedly compliment with Eliquis. She reports that last weekend she started experiencing progressive shortness of breath and finally decided to come to the hospital. She has been admitted with a very high D-dimer. The patient's creatinine was at 1.3 and she had a VQ scan performed which was reported as negative by PIOPED criteria. However, a Doppler performed did show bilateral deep venous thrombosis involving right popliteal vein and left superficial femoral vein. At the time of my evaluation the patient had improved significantly since being started on Lovenox at therapeutic dose. She desaturated to 88% on room air and improved to mid-90's on 2 liters which is significantly better than the last couple of days. She denies any chest pain, shortness of breath or cough. PAST MEDICAL HISTORY: Positive for chronic atrial fibrillation for which she is on anticoagulation, congestive cardiac failure, history of hypertension, hypothyroidism, diabetes mellitus, gastroesophageal reflux and chronic pain. PAST SURGICAL HISTORY: Ostomies. History of thyroidectomy for cancer five years ago. History of carotid stenosis. Inflammatory bowel disease. Placement of pacemaker defibrillator. Colon resection. Hernia repair. PERSONAL AND SOCIAL HISTORY: The patient has been a former smoker smoking two packs per day. MEDICATIONS: Home and current medications are reviewed. ALLERGIES: ALLERGIES NOTED. PHYSICAL EXAMINATION: This is a middle aged woman who appears comfortable at rest. The patient is able to speak without difficulty. Vital signs noted. HEENT: Normocephalic. Pupils are reactive. Oropharynx is limited. NECK: Supple. CVS: First and second heart sounds are normal, regular, rhythmic. RESPIRATORY: Shows diminished breath sounds. Clear to auscultation. ABDOMEN: Status post surgery. EXTREMITIES: Lower extremities show no significant edema. LABORATORY DATA AND TESTS: Blood culture negative. Sodium 140, potassium 3.8, chloride 101, bicarb 29, glucose 107, BUN 20, creatinine 1.3. BNP 9130. White blood cell count 6.5, hemoglobin 10.7, hematocrit 34, PLT 226. All diagnostic radiology tests were reviewed. ASSESSMENT: This is a 62 year old woman admitted with: 1) Acute on chronic hypoxic respiratory failure with strong clinical suspicion of micro-embolization. 2) Lower extremity deep venous thrombosis involving right popliteal and left superficial femoral despite being on anticoagulation with reportedly good compliance raising concerns for therapeutic failure of new anticoagulant. 3) Congestive heart failure with decompensation. 4) Coronary artery disease. 5) History of hypothyroidism. 6) Hypertension. 7) Diabetes mellitus. RECOMMENDATIONS: 1) I discussed with patient concerns regarding developing deep venous thrombosis bilaterally despite being on anticoagulation. The case was also discussed with Dr. Duarte, her regular hand box folder. We are both in agreement that the patient will benefit from LVC (left ventricular chamber) Frater followed by anticoagulation with Coumadin with overlap and keeping international normalized ratio at least around 3. 2) Continue supplemental oxygen, will need home O2 evaluation prior to discharge. 3) Further recommendations pending clinical improvement, cautious diuresis. Clinically does appear to be significantly volume overloaded. The case was also discussed with Dr. Leal, her primary care physician, who was in agreement. Will continue Lovenox and possibly hold tomorrow morning dose until later can be done. Thank you Dr. Leal and Dr. Duarte for allowing me to participate in the care of this patient.
--- NOTE | 2018-03-18 07:54 | ECHO ---
DATE OF PROCEDURE: 03/10/2018 CLINICAL INFORMATION: Congestive heart failure. The M-mode 2D, and Doppler echocardiogram including color flow Doppler is shows the left ventricular systolic function is mildly decreased. The ejection fraction is calculated at 43%. There is diffuse hypokinesis present. The left ventricle is normal in size at 4.1 cm. The septal wall thickness is normal at 0.8 cm. The left ventricular posterior wall thickness is normal at 0.8 cm. There is no apical thrombus present. The right ventricle is dilated. The left atrium is mildly dilated at 4.3 cm. The interatrial septum is intact. The right atrium is not well visualized. The aortic valve opens well. There is mild mitral regurgitation associated with mitral valve leaflet thickening. There is moderate to severe tricuspid regurgitation. The right ventricular systolic pressure is calculated to be elevated at 43 mm of Mercury. The pulmonic valve is not well visualized. The aortic root is normal at 3.4 cm. There is no pericardial effusion present. IMPRESSION: 1) MILD DECREASE IN LEFT VENTRICULAR SYSTOLIC FUNCTION. 2) MODERATE TO SEVERE TRICUSPID REGURGITATION. 3) MODERATE PULMONARY HYPERTENSION. 4) MILD MITRAL REGURGITATION. 5) MILD PULMONIC REGURGITATION.
== END 2018-03-11 20:00 | disposition short-term general hospital (02) | DRG 313 ==
LOC: ED 15:15 → MED SURG 17:45 → OBSVTOIN 03-10 09:41
PROVIDERS: ADMIT Family Medicine; ATTEND Family Medicine
DX: R07.9 Chest pain, unspecified (principal); I82.409 Acute embolism and thrombosis of unspecified deep veins of unspecified lower extremity; R06.02 Shortness of breath; R79.89 Other specified abnormal findings of blood chemistry; R09.02 Hypoxemia; M54.9 Dorsalgia, unspecified; G89.29 Other chronic pain; K21.9 Gastro-esophageal reflux disease without esophagitis; I50.9 Heart failure, unspecified; Z79.01 Long term (current) use of anticoagulants; I48.91 Unspecified atrial fibrillation; I25.10 Atherosclerotic heart disease of native coronary artery without angina pectoris; I10 Essential (primary) hypertension; E11.9 Type 2 diabetes mellitus without complications; Z86.711 Personal history of pulmonary embolism; Z85.850 Personal history of malignant neoplasm of thyroid; N80.9 Endometriosis, unspecified; Z87.442 Personal history of urinary calculi; Z95.810 Presence of automatic (implantable) cardiac defibrillator
CPT/HCPCS: 36000; 36415; 71045; 78582; 80048; 80053; 82962; 83605; 83880; 84484; 85025; 85379; 85610; 87040; 93005; 93041; 93268; 93306; 93970; 94150; 94640; 94762; 96372; 96374; 99285; A9540; A9567; J0696; J1642; J1650; J1940; J2405; Q3014; A9270-GY; G0378

== ENCOUNTER 2018-06-10 18:38 | Emergency (ER) | payer MEDICARE ==
[2018-06-10] MEDS ORDERED: BABY ASPIRIN 81 MG CHEW PO ONE (19:02)
[2018-06-10] MEDS ORDERED: Nitrostat 0.4 MG (ED) SL ONE ×2 (19:02→21:15)
[2018-06-10 19:17] LABS: BASOPHIL % 0.5 % (0.0-0.4); Basophil (Absolute #) 0.04 (0-0.4); Eosinophil % 1.4 % (0.00-5.0); Eosinophil (Absolute #) 0.12 (0-0.5); Granulocyte Absolute (ANC) 5.41 (1.4-6.9); Granulocytes % 64.7 % (36.0-66.0); Hematocrit 31.1 % (35-47); Hemoglobin 9.3 gm/dl (12.0-16.0); Lymphocyte (Absolute #) 2.01 (1.0-4.6); Mean Cell Volume 86.9 fl (78-100); Mean Corpuscular Hgb Concent. 29.9 g/dl (32-36); Mean Platelet Volume 9.4 fl (6-9.5); Monocyte (Absolute #) 0.79 (0.0-1.3); Monocytes % 9.4 % (0.0-12.0); Platelet Count 244 K/mm3 (150-450); Red Blood Count 3.58 M/mm3 (4.1-5.4); White Blood Count 8.4 K/mm3 (4.0-10.5)
[2018-06-10 19:22] LABS: Mean Corpuscular Hemoglobin 25.9 pg (26-32)
[2018-06-10] MEDS ORDERED: MORPHINE SULFATE 2 MG INJ IV ONE ×2 (19:30→22:16)
[2018-06-10] MEDS ORDERED: Zofran 4 MG/2 ML VIAL IV ONE ×2 (19:30→22:17)
[2018-06-10 19:43] LABS: INR 1.13 (0.8-3.0); PROTIME 13.1 SECONDS (9.95-12.35)
[2018-06-10] MEDS ORDERED: Zofran 4 MG/2 ML VIAL ONE ×2 (19:44→22:26)
[2018-06-10] MEDS ORDERED: MORPHINE SULFATE 2 MG INJ ONE ×2 (19:44→22:27)
[2018-06-10 19:57] LABS: ALBUMIN 3.9 g/dL (3.5-5.0); ALKALINE PHOSPHATASE 138 U/L (38-126); ANION GAP 14.1 MEQ/L (5-15); BLOOD UREA NITROGEN 12 mg/dL (7-17); CHLORIDE 107 mmol/L (98-107); Calcium 9.5 mg/dL (8.4-10.2); Carbon Dioxide 22 mmol/L (22-30); Creatinine 1 0.96 mg/dL (0.52-1.04); Glucose 100 mg/dL (74-106); NT PRO BNP 2780 pg/mL (0-900); Potassium 3.9 mmol/L (3.5-5.1); SGOT/AST 27 U/L (14-36); SGPT/ALT 11 U/L (0-35); SODIUM 140 mmol/L (137-145); Total Protein 7.2 g/dL (6.3-8.2)
[2018-06-10 20:58] VITALS: O2SAT 97
[2018-06-10] MEDS ORDERED: BABY ASPIRIN 81 MG CHEW ONE (21:15)
[2018-06-10] MEDS ORDERED: Heparin 25,000 units/D5W 250ML PREMIX 25,000 UNITS/250 ML BAG IV SCH (22:00)
--- NOTE | 2018-06-10 22:08 | ERPHSYRPT ---
- History of Present Illness Historian: patient Exam Limitations: no limitations Patient Subjective Stated Complaint: Pt states "I went to see Dr. Nelson today and I got an EKG and they put me on imdur. Tonight , My head really hurts and my chest still hurts. My chest has been hurting for two days now. I am sick to my stomach and do not feel well." Triage Nursing Assessment: Pt alert and oriented X 3, skin pink warm and dry. Pt ambulates with a hunched over gait, holding her chest. Pt able to speak in full sentences. but gets short of breath speaking. Physician History: Pt is a 62 y/o female with a cardiac history and AICD, that presented to the ED with chest pain. Pt states, she saw her physician this AM, that started her on Imdur and sent her home. Pt was in severe pain, and came to the ED. Timing/Duration: today Activities at Onset: none Quality: sharpness, stabbing, tightness Location: substernal (with radiation to R neck and shoulder) Severity of Pain-Max: severe Severity of Pain-Current: severe Modifying Factors: Improves With: morphine Associated Symptoms: nausea, vomiting, headache Prior Chest Pain/Cardiac Workup: angina Nitro Today/Relief: 0.4 mg x 1, provided at home, no relief Aspirin Treatment Today: provided by ED Allergies/Adverse Reactions: codeine [Codeine] Allergy (Mild, Verified 03/09/18 15:36) Nausea and Vomiting Sulfa (Sulfonamide Antibiotics) [Sulfa(Sulfonamide Antibiotics)] Allergy (Mild, Verified 03/09/18 15:36) Nausea and Vomiting adhesive Allergy (Verified 03/09/18 15:36) acetaminophen [From Percocet] Adverse Reaction (Verified 03/09/18 15:36) Vomiting oxycodone [From Percocet] Adverse Reaction (Verified 03/09/18 15:36) Vomiting Home Medications: Omeprazole [Prilosec] 40 mg PO DAILY 11/24/11 [History] Linagliptin [Tradjenta] 5 mg PO DAILY 01/11/15 [History] Carvedilol 3.125 mg [Coreg 3.125 MG] 3.125 mg PO BID 06/08/15 [History] Nitroglycerin 0.4 mg Tablet [Nitrostat 0.4 MG Tablet] 0.4 mg SL UD PRN [History] Levothyroxine Sodium 100 Mcg [Synthroid 100 Mcg] 300 mcg PO BID 03/20/16 [ History] Apixaban [Eliquis] 5 mg PO BID 02/11/17 [History] Morphine Sulfate 15 mg PO QID PRN 11/10/17 [History] Tizanidine HCl 4 mg PO BID 11/10/17 [History] Furosemide [Lasix] 10 mg PO DAILY PRN 03/09/18 [History] Isosorbide Mononitrate 30 mg [Imdur 30 MG] 30 mg PO DAILY 06/10/18 [History ] Hx Tetanus, Diphtheria Vaccination/Date Given: Yes Hx Influenza Vaccination/Date Given: Yes Hx Pneumococcal Vaccination/Date Given: Yes Immunizations Up to Date: Yes - Review of Systems Constitutional: No Fever, No Chills Respiratory: No Cough, No Dyspnea Cardiac: Chest Pain Abdominal/Gastrointestinal: No Abdominal Pain, No Nausea, No Vomiting, No Diarrhea Genitourinary Symptoms: No Dysuria Musculoskeletal: No Back Pain, No Neck Pain - Past Medical History Pertinent Past Medical History: Yes Neurological History: Migraines, Stroke ENT History: No Pertinent History Cardiac History: Angina, Arrhythmia, Congenital Heart Disease, Congestive Heart Failure, Coronary Artery Disease, Hypertension Respiratory History: Asthma, CHF, Pneumonia, Pulmonary Embolism Endocrine Medical History: Diabetes Type II, Thyroid Cancer Musculoskeletal History: Other GI Medical History: GERD, Hernia, Other History: Other Psycho-Social History: No Pertinent History Female Reproductive Disorders: Endometriosis Other Medical History: THYROID CA 5 YEARS AGO; A FIB, CAROTID STENOSIS. States IBS or " part of my colon", Has illeostomy.Back fusion ,lower back in september 2017 and then 5 I&D after in september and october 2017 and November 2017 at [facility]. hx kidney stones. Myocarditis. - Past Surgical History Past Surgical History: Yes Neuro Surgical History: No Pertinent History Cardiac: Cardiac Catheterization, Internal Defibrillator, Pacemaker Respiratory: No Pertinent History Gastrointestinal: Appendectomy, Cholecystectomy, Colon Resection, Hernia Repair , Other Genitourinary: No Pertinent History Musculoskeletal: Orthopedic Surgery Female Surgical History: Hysterectomy Other Surgical History: THYROID REMOVED, 40% and 50% blockages found with last heart cath about 4 years ago. ankle surgery d/t break,ileostomy, CVL port removed and replaced, PICC line placed for CVL surgery September 2015. ostomy repair due to blockage 09/02, back surgery and 4 I&D september and october and november 2017. TLIF fused discs in back - Social History Smoking Status: Never smoker Exposure to second hand smoke: No Alcohol Use: None Drug Use: none Patient Lives Alone: No Significant Family History: heart disease, cancer, diabetes - Female History Hx Now: No - Nursing Vital Signs Nursing Vital Signs: Initial Vital Signs Temperature 98.1 F 06/10/18 18:42 Pulse Rate 60 06/10/18 18:42 Respiratory Rate 16 06/10/18 18:42 Blood Pressure 141/78 06/10/18 18:42 O2 Sat by Pulse Oximetry 99 06/10/18 18:42 Pain Scale Pain Intensity 6 - Physical Exam General Appearance: severe distress Eye Exam: PERRL/EOMI, eyes nml inspection Neck Exam: normal inspection, non-tender, supple, full range of motion Respiratory Exam: normal breath sounds, lungs clear, No respiratory distress Cardiovascular Exam: other (pain with palpation over the chest wall) Gastrointestinal/Abdomen Exam: soft, No tenderness, No mass SpO2: 97 - Course Nursing assessment & vital signs reviewed: Yes EKG Interpreted by Me: Other (Pt with AICD, and paced) - CT Exams Chest CT Interpretation: Tele-radiologist Report (PE) Ordered Tests: Active Orders 24 hr Category Date Time Status Sports Therapist STAT Care 06/10/18 19:03 Active EKG-ER Only STAT Care 06/10/18 19:02 Active IV Insertion STAT Care 06/10/18 19:02 Active Oxygen-ED Only Nasal Cannula 2 lpm Care 06/10/18 19:02 Active CHEST 2 VIEWS (PA AND LAT) Stat Exams 06/10/18 19:03 Taken CHEST WITH CONTRAST [CT] Stat Exams 06/10/18 20:01 Taken CBC W DIFF Stat Lab 06/10/18 19:10 Completed CMP Stat Lab 06/10/18 19:10 Completed D-DIMER QUANTITATION Stat Lab 06/10/18 19:10 Completed NT PRO BNP Stat Lab 06/10/18 19:10 Completed PROTIME WITH INR Stat Lab 06/10/18 19:10 Completed TROPONIN Q3H Lab 06/10/18 19:10 Received TROPONIN Q3H Lab 06/10/18 19:15 Completed TROPONIN Q3H Lab 06/11/18 01:15 Ordered TROPONIN Q3H Lab 06/11/18 04:15 Ordered TROPONIN Q3H Lab 06/11/18 07:15 Ordered Medication Summary Generic Name Dose Route Start Last Admin Trade Name Brad PRN Reason Stop Dose Admin Heparin Sodium/Dextrose 25,000 units in 250 mls @ 10 mls/hr 06/10/18 22:00 Heparin 25,000 Units/D5w 250ml Premix IV 07/10/18 21:59 .Q24H JUSTIN Discontinued Medications Generic Name Dose Route Start Last Admin Trade Name Brad PRN Reason Stop Dose Admin Aspirin 324 mg 06/10/18 19:02 06/10/18 19:13 Baby Aspirin 81 Mg Chew PO 06/10/18 19:03 324 mg STAT ONE Administration Aspirin Confirm 06/10/18 21:15 Baby Aspirin 81 Mg Chew Administered 06/10/18 21:16 Dose 324 mg .ROUTE .STK-MED ONE Morphine Sulfate 2 mg 06/10/18 19:30 06/10/18 19:48 Morphine Sulfate 2 Mg Inj IV 06/10/18 19:31 2 mg STAT ONE Administration Morphine Sulfate Confirm 06/10/18 19:44 Morphine Sulfate 2 Mg Inj Administered 06/10/18 19:45 Dose 2 mg .ROUTE .STK-MED ONE Nitroglycerin 0.4 mg 06/10/18 19:02 06/10/18 19:14 Nitrostat 0.4 Mg (Ed) SL 06/10/18 19:03 0.4 mg STAT ONE Administration Nitroglycerin Confirm 06/10/18 21:15 Nitrostat 0.4 Mg (Ed) Administered 06/10/18 21:16 Dose 0.4 mg SL .STK-MED ONE Ondansetron HCl 4 mg 06/10/18 19:30 06/10/18 19:46 Zofran 4 Mg/2 Ml Vial IV 06/10/18 19:31 4 mg STAT ONE Administration Ondansetron HCl Confirm 06/10/18 19:44 Zofran 4 Mg/2 Ml Vial Administered 06/10/18 19:45 Dose 4 mg .ROUTE .STK-MED ONE Lab/Rad Data: Laboratory Result Diagrams 06/10/18 19:10 06/10/18 19:10 Laboratory Results 06/10/18 06/10/18 06/10/18 Range/Units 19:15 19:10 19:10 WBC (4.0-10.5) K/mm3 RBC (4.1-5.4) M/mm3 Hgb (12.0-16.0) gm/dl Hct (35-47) % MCV (78-100) fl MCH (26-32) pg MCHC (32-36) g/dl RDW (11.5-14.0) % Plt Count (150-450) K/mm3 MPV (6-9.5) fl Gran % (36.0-66.0) % Eos # (Auto) (0-0.5) Absolute Lymphs (auto) (1.0-4.6) Absolute Monos (auto) (0.0-1.3) Lymphocytes % (24.0-44.0) % Monocytes % (0.0-12.0) % Eosinophils % (0.00-5.0) % Basophils % (0.0-0.4) % Absolute Granulocytes (1.4-6.9) Basophils # (0-0.4) PT 13.1 H (9.95-12.35) SECONDS INR 1.13 (0.8-3.0) D-Dimer 97223 H* (215-500) ng/mL Sodium 140 (137-145) mmol/L Potassium 3.9 (3.5-5.1) mmol/L Chloride 107 (98-107) mmol/L Carbon Dioxide 22 (22-30) mmol/L Anion Gap 14.1 (5-15) MEQ/L BUN 12 (7-17) mg/dL Creatinine 0.96 (0.52-1.04) mg/dL Estimated GFR > 60.0 ML/MIN Glucose 100 (74-106) mg/dL Calcium 9.5 (8.4-10.2) mg/dL Total Bilirubin 0.70 (0.2-1.3) mg/dL AST 27 (14-36) U/L ALT 11 (0-35) U/L Alkaline Phosphatase 138 H (38-126) U/L Troponin I < 0.012 (0.000-0.034) ng/mL NT-Pro-B Natriuret Pep 2780 H (0-900) pg/mL Serum Total Protein 7.2 (6.3-8.2) g/dL Albumin 3.9 (3.5-5.0) g/dL 06/10/18 Range/Units 19:10 WBC 8.4 (4.0-10.5) K/mm3 RBC 3.58 L (4.1-5.4) M/mm3 Hgb 9.3 L (12.0-16.0) gm/dl Hct 31.1 L (35-47) % MCV 86.9 (78-100) fl MCH 25.9 L (26-32) pg MCHC 29.9 L (32-36) g/dl RDW 19.0 H (11.5-14.0) % Plt Count 244 (150-450) K/mm3 MPV 9.4 (6-9.5) fl Gran % 64.7 (36.0-66.0) % Eos # (Auto) 0.12 (0-0.5) Absolute Lymphs (auto) 2.01 (1.0-4.6) Absolute Monos (auto) 0.79 (0.0-1.3) Lymphocytes % 24.0 (24.0-44.0) % Monocytes % 9.4 (0.0-12.0) % Eosinophils % 1.4 (0.00-5.0) % Basophils % 0.5 (0.0-0.4) % Absolute Granulocytes 5.41 (1.4-6.9) Basophils # 0.04 (0-0.4) PT (9.95-12.35) SECONDS INR (0.8-3.0) D-Dimer (215-500) ng/mL Sodium (137-145) mmol/L Potassium (3.5-5.1) mmol/L Chloride (98-107) mmol/L Carbon Dioxide (22-30) mmol/L Anion Gap (5-15) MEQ/L BUN (7-17) mg/dL Creatinine (0.52-1.04) mg/dL Estimated GFR ML/MIN Glucose (74-106) mg/dL Calcium (8.4-10.2) mg/dL Total Bilirubin (0.2-1.3) mg/dL AST (14-36) U/L ALT (0-35) U/L Alkaline Phosphatase (38-126) U/L Troponin I (0.000-0.034) ng/mL NT-Pro-B Natriuret Pep (0-900) pg/mL Serum Total Protein (6.3-8.2) g/dL Albumin (3.5-5.0) g/dL - Progress Progress: unchanged Air Movement: fair Progress Note: 06/10/18 22:09 Pt had full work up that showed normal Troponin, but extremly elevated D Dimer. CT for PE study showed DVT. Pt is taking Eliquis, and has a h/o DVT with 3 weeks on heparin gtt in [facility]. [facility] ER was contacted, and Dr Vasquez accepted the pt. Heprin gtt will be started in the ED, and will go with the pt to [facility]. Blood Culture(s) Obtained: No Antibiotics given: No Will see patient in: other (Transfer to [facility] ED.) Counseled pt/family regarding: lab results, diagnosis - Departure Time of Disposition: 22:14 Departure Disposition: Transfer ([facility] ED) Clinical Impression: Pulmonary embolism on long-term anticoagulation therapy Condition: Stable Critical Care Time: No Referrals: CHRIS KAYE NP [Primary Care Provider] -
[2018-06-10] MEDS ORDERED: Heparin 25,000 units/D5W 250ML PREMIX 25,000 UNITS/250 ML BAG IV ONE (22:09)
[2018-06-10] MEDS ORDERED: Heparin 5000 UNITS/0.5 ML (HIGH RISK MED) ONE (23:00)
[2018-06-10] MEDS ORDERED: Heparin 5000 UNITS/0.5 ML (HIGH RISK MED) IV ONE (23:01)
[2018-06-10 23:32] VITALS: BP 122/61; PULSE 60
--- NOTE | 2018-06-11 08:55 | XRAY ---
Indication: Chest pain, short of breath, and nausea. Elevated d-dimer. Multiple contiguous axial images obtained through the chest using 80 cc Isovue 370 contrast and PE protocol. Comparison: March 17, 2017. There is good opacification of the pulmonary arteries. However study slightly degraded by mild respiration artifact. New nonoccluding pulmonary embolus seen in the distal right main pulmonary artery extending into the right upper lobe branch. No other pulmonary embolus. Heart remains enlarged again with left-sided AICD and right Port-A-Cath. Aorta is normal in course and caliber. No pathologic mediastinal/hilar lymphadenopathy. Examination of the lung parenchyma again demonstrates mild bilateral dependent atelectasis and mild scattered fibrosis/scarring. No suspicious pulmonary mass, infiltrate, consolidation, or effusion. Bony thorax intact. Limited upper abdomen unremarkable. Impression: 1. Mild respiration artifact. 2. New nonoccluding main right pulmonary artery and right upper lobe pulmonary embolus. 3. Stable cardiomegaly. CT DI 22.48
--- NOTE | 2018-06-11 08:55 | XRAY ---
Indication: Chest pain. Short of breath. Comparison: March 09, 2018. PA/lateral chest remains clear. Heart is borderline enlarged again with left-sided AICD and right Port-A-Cath. Bony thorax intact again with mild osteopenia, degenerative changes, and right AC separation. Impression: Stable nonacute chest with chronic features.
== END 2018-06-10 23:35 | disposition short-term general hospital (02) ==
LOC: ED 18:38
DX: I26.99 Other pulmonary embolism without acute cor pulmonale (principal); Z79.01 Long term (current) use of anticoagulants; R79.89 Other specified abnormal findings of blood chemistry; Z87.898 Personal history of other specified conditions; K21.9 Gastro-esophageal reflux disease without esophagitis; Z90.49 Acquired absence of other specified parts of digestive tract; Z95.810 Presence of automatic (implantable) cardiac defibrillator; I50.9 Heart failure, unspecified; I25.810 Atherosclerosis of coronary artery bypass graft(s) without angina pectoris; I10 Essential (primary) hypertension; E11.9 Type 2 diabetes mellitus without complications; Z85.850 Personal history of malignant neoplasm of thyroid; K58.9 Irritable bowel syndrome, unspecified
CPT/HCPCS: 36000; 36415; 71046; 71260; 80053; 83880; 84484; 85025; 85379; 85610; 93005; 93041; 96374; 96375; 96376; 99285; J1644; J2270; J2405; A9270-GY

== ENCOUNTER 2018-09-01 17:20 | Emergency (ER) | payer MEDICARE ==
[2018-09-01 17:39] VITALS: BP 139/86; PULSE 61; O2SAT 95
--- NOTE | 2018-09-01 17:45 | ERPHSYRPT ---
- History of Present Illness Time Seen by Provider: 09/01/18 17:30 Source: patient Patient Subjective Stated Complaint: pt states her ostomy is bleeding, surgeon was called and she was told to come to er, bleeding started this morning after having a "blow out" Triage Nursing Assessment: pt walked in, resp easy, skin w/d/p,abd soft, has ostomy to right side of abd, stoma is is bright pink, pt states she thinks it is more red, and she has brown liquid stool in ostomy bag, she also has guille size wound to mid abd, Physician History: 63 y/o white female with permanent right lower quadrant ileostomy told to go to ED to have stoma evaluated. earlier today pts ileaostomy bag leaked. when she changed appliance there was some bleeding from the mucosa. pt changed appliance , no further red blood noted. pt did pass dark stool into bag later in day but now no problems. pt also has a satellite eschar present for a few days on abd wall apart from stoma site. it appeared mildly infected. pt seen by pcp yesterday and started on keflex and bactroban. she wanted a wound check of this site. no fever. no cp, no abd pain, no n/v/d. Timing/Duration: today Severity: mild Associated Symptoms: No nausea, No vomiting, No abdominal pain, No shortness of breath, No chest pain Allergies/Adverse Reactions: codeine [Codeine] Allergy (Mild, Verified 09/01/18 17:39) Nausea and Vomiting Sulfa (Sulfonamide Antibiotics) [Sulfa(Sulfonamide Antibiotics)] Allergy (Mild, Verified 09/01/18 17:39) Nausea and Vomiting adhesive Allergy (Verified 09/01/18 17:39) acetaminophen [From Percocet] Adverse Reaction (Verified 09/01/18 17:39) Vomiting oxycodone [From Percocet] Adverse Reaction (Verified 09/01/18 17:39) Vomiting Home Medications: Omeprazole [Prilosec] 40 mg PO DAILY 11/24/11 [History] Linagliptin [Tradjenta] 5 mg PO DAILY 01/11/15 [History] Carvedilol 3.125 mg [Coreg 3.125 MG] 3.125 mg PO BID 06/08/15 [History] Nitroglycerin 0.4 mg Tablet [Nitrostat 0.4 MG Tablet] 0.4 mg SL UD PRN [History] Levothyroxine Sodium 100 Mcg [Synthroid 100 Mcg] 300 mcg PO BID 03/20/16 [ History] Apixaban [Eliquis] 5 mg PO BID 02/11/17 [History] Morphine Sulfate 15 mg PO QID PRN 11/10/17 [History] Tizanidine HCl 4 mg PO BID 11/10/17 [History] Furosemide [Lasix] 10 mg PO DAILY PRN 03/09/18 [History] Isosorbide Mononitrate 30 mg [Imdur 30 MG] 30 mg PO DAILY 06/10/18 [History ] Hx Tetanus, Diphtheria Vaccination/Date Given: Yes Hx Influenza Vaccination/Date Given: Yes Hx Pneumococcal Vaccination/Date Given: Yes Immunizations Up to Date: Yes - Review of Systems Constitutional: No Symptoms Eyes: No Symptoms Ears, Nose, & Throat: No Symptoms Respiratory: No Symptoms Cardiac: No Symptoms Abdominal/Gastrointestinal: Melena (earlier none now) Genitourinary Symptoms: No Symptoms Musculoskeletal: No Symptoms Skin: Other (small eschar abd wall) Neurological: No Symptoms Psychological: No Symptoms Endocrine: No Symptoms Hematologic/Lymphatic: No Symptoms Immunological/Allergic: No Symptoms All Other Systems: Reviewed and Negative - Past Medical History Pertinent Past Medical History: Yes Neurological History: Migraines, Stroke ENT History: No Pertinent History Cardiac History: Angina, Arrhythmia, Congenital Heart Disease, Congestive Heart Failure, Coronary Artery Disease, Hypertension Respiratory History: Asthma, CHF, Pneumonia, Pulmonary Embolism Endocrine Medical History: Diabetes Type II, Thyroid Cancer Musculoskeletal History: Other GI Medical History: GERD, Hernia, Other History: Other Psycho-Social History: No Pertinent History Female Reproductive Disorders: Endometriosis Other Medical History: THYROID CA 5 YEARS AGO; A FIB, CAROTID STENOSIS. States IBS or " part of my colon", Has illeostomy.Back fusion ,lower back in september 2017 and then 5 I&D after in september and october 2017 and November 2017 at [facility]. hx kidney stones. Myocarditis. - Past Surgical History Past Surgical History: Yes Neuro Surgical History: No Pertinent History Cardiac: Cardiac Catheterization, Internal Defibrillator, Pacemaker Respiratory: No Pertinent History Gastrointestinal: Appendectomy, Cholecystectomy, Colon Resection, Hernia Repair , Other Genitourinary: No Pertinent History Musculoskeletal: Orthopedic Surgery Female Surgical History: Hysterectomy Other Surgical History: THYROID REMOVED, 40% and 50% blockages found with last heart cath about 4 years ago. ankle surgery d/t break,ileostomy, CVL port removed and replaced, PICC line placed for CVL surgery September 2015. ostomy repair due to blockage 09/02, back surgery and 4 I&D september and october and november 2017. TLIF fused discs in back - Social History Smoking Status: Never smoker Exposure to second hand smoke: No Alcohol Use: None Drug Use: none Patient Lives Alone: No Significant Family History: heart disease, cancer, diabetes - Female History Hx Last Menstrual Period: post Hx Now: No - Nursing Vital Signs Nursing Vital Signs: Initial Vital Signs Temperature 98.3 F 09/01/18 17:28 Pulse Rate 61 09/01/18 17:28 Respiratory Rate 18 09/01/18 17:28 Blood Pressure 139/86 09/01/18 17:28 O2 Sat by Pulse Oximetry 95 09/01/18 17:28 Pain Scale Pain Intensity 0 - Physical Exam General Appearance: no apparent distress, alert, anxiety Eye Exam: PERRL/EOMI Ears, Nose, Throat Exam: normal ENT inspection, moist mucous membranes Neck Exam: normal inspection, non-tender, supple, full range of motion Respiratory Exam: normal breath sounds, lungs clear, airway intact, No chest tenderness, No respiratory distress Gastrointestinal/Abdomen Exam: soft, normal bowel sounds, other (ostomy pink and functioning. no bleeding or black stool.), No tenderness Pelvic Exam: not done Rectal Exam: not done Back Exam: normal inspection, normal range of motion, No CVA tenderness, No vertebral tenderness Extremity Exam: normal inspection, normal range of motion, pelvis stable Neurologic Exam: alert, oriented x 3, cooperative, telecommunications line installer II-XII nml as tested, normal mood/affect, nml cerebellar function, nml station & gait Skin Exam: warm, dry, other (eschar 0.5cm diameter. mild ring of redness around it. no cellulitis) Lymphatic Exam: No adenopathy SpO2 Interpretation: normal SpO2: 95 O2 Delivery: Room Air - Course Nursing assessment & vital signs reviewed: Yes - Progress Progress: unchanged Counseled pt/family regarding: diagnosis, need for follow-up, rad results - Departure Departure Disposition: Home Clinical Impression: Visit for wound check, Encounter for ostomy care education Condition: Stable Critical Care Time: No Referrals: CHRIS KAYE NP [Primary Care Provider] - Additional Instructions: change ostomy bag as needed/instructed. continue oral and topical antibiotics as prescribed. however, scrub the wound 2 times daily to remove scab then apply ointment and cover with a bandage. follow up with primary doctor and surgeon as needed.
== END 2018-09-01 18:01 | disposition home or self-care (01) ==
LOC: ED 17:20
DX: Z48.00 Encounter for change or removal of nonsurgical wound dressing (principal); Z93.3 Colostomy status
CPT/HCPCS: 99283

== ENCOUNTER 2018-09-12 14:36 | Emergency (ER) | payer MEDICARE ==
[2018-09-12] MEDS ORDERED: MORPHINE SULFATE 4 MG INJ IV ONE (15:13)
[2018-09-12] MEDS ORDERED: Zofran 4 MG/2 ML VIAL IV ONE (15:13)
--- NOTE | 2018-09-12 15:20 | ERPHSYRPT ---
- History of Present Illness Time Seen by Provider: 09/12/18 15:09 Historian: patient Exam Limitations: no limitations Patient Subjective Stated Complaint: c/o pain to both sides of neck since yesterday. also states it "hurts when I breathe". denies cough. Triage Nursing Assessment: from [facility] to room 4. skin w/d, color normal, resp nonlabored. denies cough. states has pain with respiration and feels like she can't get a deep breath. Physician History: 63-year-old white female arrives with complaint of bilateral neck pain pain in her anterior chest and left shoulder worse with breathing symptoms since yesterday. Patient states she's been short of breath no nausea no vomiting. Patient states she has chronic prescription for morphine sulfate IR but states "trying not to take it" Past medical history includes migraines, stroke, angina, arrhythmia, congenital heart disease, congestive heart failure, coronary artery disease, high blood pressure, asthma, pneumonia, pulmonary embolism, diabetes type 2, thyroid cancer , GERD, hernia, endometriosis, thyroid cancer, atrial fibrillation, carotid stenosis, irritable bowel disease, possibly of part of her colon, kidney stones, myocarditis Past surgical history includes cardiac catheter, internal defibrillator, pacer, appendectomy, cholecystectomy, colon resection, hernia repair, orthopedic surgery, hysterectomy, thyroid removed, heart catheter, ankle surgery, ileostomy , CVL port removed and replaced, PICC line, osteotomy repair, fused disks in her back Timing/Duration: yesterday Activities at Onset: none Quality: aching Location: substernal, shoulder (left shoulder) Chest Pain Radiation: neck Severity of Pain-Max: moderate Severity of Pain-Current: moderate Modifying Factors: Improves With: breathing (worse with deep breathing) Associated Symptoms: shortness of breath, hurts to breathe, No nausea, No vomiting, No palpitations, No heartburn, No abdominal pain, No cough, No diaphoresis, No chills, No fever, No fatigue, No weakness, No swelling/lump in chest, No syncope, No rash, No headache, No dizziness, No edema, No back pain Prior Chest Pain/Cardiac Workup: cardiac cath Nitro Today/Relief: no nitro taken today Aspirin Treatment Today: 81 mg x 1, provided by ED Allergies/Adverse Reactions: codeine [Codeine] Allergy (Mild, Verified 09/12/18 14:46) Nausea and Vomiting Sulfa (Sulfonamide Antibiotics) [Sulfa(Sulfonamide Antibiotics)] Allergy (Mild, Verified 09/12/18 14:46) Nausea and Vomiting adhesive Allergy (Verified 09/12/18 14:46) acetaminophen [From Percocet] Adverse Reaction (Verified 09/12/18 14:46) Vomiting oxycodone [From Percocet] Adverse Reaction (Verified 09/12/18 14:46) Vomiting Home Medications: Omeprazole [Prilosec] 40 mg PO DAILY 11/24/11 [History] Linagliptin [Tradjenta] 5 mg PO DAILY 01/11/15 [History] Carvedilol 3.125 mg [Coreg 3.125 MG] 3.125 mg PO BID 06/08/15 [History] Nitroglycerin 0.4 mg Tablet [Nitrostat 0.4 MG Tablet] 0.4 mg SL UD PRN [History] Levothyroxine Sodium 100 Mcg [Synthroid 100 Mcg] 300 mcg PO BID 03/20/16 [ History] Apixaban [Eliquis] 5 mg PO BID 02/11/17 [History] Morphine Sulfate 15 mg PO QID PRN 11/10/17 [History] Tizanidine HCl 4 mg PO BID 11/10/17 [History] Furosemide [Lasix] 10 mg PO DAILY PRN 03/09/18 [History] Isosorbide Mononitrate 30 mg [Imdur 30 MG] 30 mg PO DAILY 06/10/18 [History ] Hx Tetanus, Diphtheria Vaccination/Date Given: No Hx Influenza Vaccination/Date Given: Yes Hx Pneumococcal Vaccination/Date Given: Yes - Review of Systems Constitutional: No Fever, No Chills Eyes: No Symptoms Ears, Nose, & Throat: No Symptoms Respiratory: Dyspnea, Other (pain in chest with deep breathing) Cardiac: Chest Pain, No Edema, No Palpitations, No Orthopnea Abdominal/Gastrointestinal: No Abdominal Pain, No Nausea, No Vomiting, No Diarrhea, No Constipation, No Hematemesis, No Hematochezia, No Melena, No Dysphagia, No Appetite Changes Genitourinary Symptoms: No Dysuria Musculoskeletal: No Back Pain, No Neck Pain Skin: No Rash Neurological: No Dizziness, No Focal Weakness, No Sensory Changes Psychological: No Symptoms Endocrine: No Symptoms All Other Systems: Reviewed and Negative - Past Medical History Pertinent Past Medical History: Yes Neurological History: Migraines, Stroke ENT History: No Pertinent History Cardiac History: Angina, Arrhythmia, Congenital Heart Disease, Congestive Heart Failure, Coronary Artery Disease, Hypertension Respiratory History: Asthma, CHF, Pneumonia, Pulmonary Embolism Endocrine Medical History: Diabetes Type II, Thyroid Cancer Musculoskeletal History: Other GI Medical History: GERD, Hernia, Other History: Other Psycho-Social History: No Pertinent History Female Reproductive Disorders: Endometriosis Other Medical History: THYROID CA 5 YEARS AGO; A FIB, CAROTID STENOSIS. States IBS or " part of my colon", Has illeostomy.Back fusion ,lower back in september 2017 and then 5 I&D after in september and october 2017 and November 2017 at [facility]. hx kidney stones. Myocarditis. - Past Surgical History Past Surgical History: Yes Neuro Surgical History: No Pertinent History Cardiac: Cardiac Catheterization, Internal Defibrillator, Pacemaker Respiratory: No Pertinent History Gastrointestinal: Appendectomy, Cholecystectomy, Colon Resection, Hernia Repair , Other Genitourinary: No Pertinent History Musculoskeletal: Orthopedic Surgery Female Surgical History: Hysterectomy Other Surgical History: THYROID REMOVED, 40% and 50% blockages found with last heart cath about 4 years ago. ankle surgery d/t break,ileostomy, CVL port removed and replaced, PICC line placed for CVL surgery September 2015. ostomy repair due to blockage 09/02, back surgery and 4 I&D september and october and november 2017. TLIF fused discs in back - Social History Smoking Status: Never smoker Exposure to second hand smoke: No Alcohol Use: None Drug Use: none Patient Lives Alone: No Significant Family History: heart disease, cancer, diabetes - Nursing Vital Signs Nursing Vital Signs: Initial Vital Signs Temperature 97.9 F 09/12/18 14:44 Pulse Rate 63 09/12/18 14:44 Respiratory Rate 16 09/12/18 14:44 Blood Pressure 142/89 09/12/18 14:44 O2 Sat by Pulse Oximetry 99 09/12/18 14:44 Pain Scale Pain Intensity [] 7 Pain Intensity 3 - Physical Exam General Appearance: no apparent distress, alert Eye Exam: PERRL/EOMI, eyes nml inspection Ears, Nose, Throat Exam: normal ENT inspection, moist mucous membranes Neck Exam: normal inspection, non-tender, supple, full range of motion Respiratory Exam: normal breath sounds, lungs clear, No respiratory distress Cardiovascular Exam: regular rate/rhythm, normal heart sounds, capillary refill <2 sec Gastrointestinal/Abdomen Exam: soft, No tenderness, No mass Back Exam: normal inspection, No CVA tenderness, No vertebral tenderness Extremity Exam: normal inspection, normal range of motion Neurologic Exam: alert, oriented x 3, cooperative, psychiatric attendant II-XII nml as tested, normal mood/affect, sensation nml, No motor deficits Skin Exam: normal color, warm, dry SpO2 Interpretation: normal (99%) SpO2: 99 - Course Nursing assessment & vital signs reviewed: Yes EKG Interpreted by Me: RATE (60bpm), Other (EKG: Paced rhythm, 60 bpm, no acute ST or T wave changes noted) - Radiology Exams Chest X-ray Interpretation: Interpreted by me (CXR: pacer/ defibrillator in place. No acute disease process noted) Ordered Tests: Active Orders 24 hr Category Date Time Status Report Checker STAT Care 09/12/18 15:02 Active EKG-ER Only STAT Care 09/12/18 15:01 Active IV Insertion STAT Care 09/12/18 15:01 Active CHEST 1 VIEW (PORTABLE) Stat Exams 09/12/18 15:02 Taken AMYLASE Stat Lab 09/12/18 15:45 Completed CBC W DIFF Stat Lab 09/12/18 15:45 Completed CMP Stat Lab 09/12/18 15:45 Completed LIPASE Stat Lab 09/12/18 15:45 Completed TROPONIN Q3H Lab 09/12/18 15:15 Completed TROPONIN Q3H Lab 09/12/18 18:19 Completed TROPONIN Q3H Lab 09/12/18 21:15 Ordered TROPONIN Q3H Lab 09/13/18 00:15 Ordered TROPONIN Q3H Lab 09/13/18 03:15 Ordered Medication Summary Discontinued Medications Generic Name Dose Route Start Last Admin Trade Name Freq PRN Reason Stop Dose Admin Morphine Sulfate 4 mg 09/12/18 15:13 09/12/18 15:31 Morphine Sulfate 4 Mg Inj IV 09/12/18 15:14 4 mg STAT ONE Administration Morphine Sulfate Confirm 09/12/18 15:29 Morphine Sulfate 4 Mg Inj Administered 09/12/18 15:30 Dose 4 mg .ROUTE .STK-MED ONE Ondansetron HCl 4 mg 09/12/18 15:13 09/12/18 15:31 Zofran 4 Mg/2 Ml Vial IV 09/12/18 15:14 4 mg STAT ONE Administration Ondansetron HCl Confirm 09/12/18 15:29 Zofran 4 Mg/2 Ml Vial Administered 09/12/18 15:30 Dose 4 mg .ROUTE .STK-MED ONE Lab/Rad Data: Laboratory Result Diagrams 09/12/18 15:45 09/12/18 15:45 Laboratory Results 09/12/18 09/12/18 09/12/18 Range/Units 18:19 15:45 15:45 WBC (4.0-10.5) K/mm3 RBC (4.1-5.4) M/mm3 Hgb (12.0-16.0) gm/dl Hct (35-47) % MCV (78-100) fl MCH (26-32) pg MCHC (32-36) g/dl RDW (11.5-14.0) % Plt Count (150-450) K/mm3 MPV (6-9.5) fl Gran % (36.0-66.0) % Eos # (Auto) (0-0.5) Absolute Lymphs (auto) (1.0-4.6) Absolute Monos (auto) (0.0-1.3) Lymphocytes % (24.0-44.0) % Monocytes % (0.0-12.0) % Eosinophils % (0.00-5.0) % Basophils % (0.0-0.4) % Absolute Granulocytes (1.4-6.9) Basophils # (0-0.4) Sodium 141 (137-145) mmol/L Potassium 3.7 (3.5-5.1) mmol/L Chloride 108 H (98-107) mmol/L Carbon Dioxide 23 (22-30) mmol/L Anion Gap 13.4 (5-15) MEQ/L BUN 19 H (7-17) mg/dL Creatinine 1.10 H (0.52-1.04) mg/dL Estimated GFR 53.5 ML/MIN Glucose 82 (74-106) mg/dL Calcium 9.8 (8.4-10.2) mg/dL Total Bilirubin 0.50 (0.2-1.3) mg/dL AST 26 (14-36) U/L ALT 14 (0-35) U/L Alkaline Phosphatase 124 (38-126) U/L Troponin I < 0.012 (0.000-0.034) ng/mL Serum Total Protein 8.3 H (6.3-8.2) g/dL Albumin 4.3 (3.5-5.0) g/dL Amylase 80 (30-110) U/L Lipase 478 H (23-300) U/L 09/12/18 09/12/18 Range/Units 15:45 15:15 WBC 8.5 (4.0-10.5) K/mm3 RBC 4.44 (4.1-5.4) M/mm3 Hgb 12.7 (12.0-16.0) gm/dl Hct 38.8 (35-47) % MCV 87.4 (78-100) fl MCH 28.6 (26-32) pg MCHC 32.7 (32-36) g/dl RDW 17.6 H (11.5-14.0) % Plt Count 220 (150-450) K/mm3 MPV 9.0 (6-9.5) fl Gran % 64.7 (36.0-66.0) % Eos # (Auto) 0.11 (0-0.5) Absolute Lymphs (auto) 2.12 (1.0-4.6) Absolute Monos (auto) 0.72 (0.0-1.3) Lymphocytes % 25.0 (24.0-44.0) % Monocytes % 8.5 (0.0-12.0) % Eosinophils % 1.3 (0.00-5.0) % Basophils % 0.5 (0.0-0.4) % Absolute Granulocytes 5.48 (1.4-6.9) Basophils # 0.04 (0-0.4) Sodium (137-145) mmol/L Potassium (3.5-5.1) mmol/L Chloride (98-107) mmol/L Carbon Dioxide (22-30) mmol/L Anion Gap (5-15) MEQ/L BUN (7-17) mg/dL Creatinine (0.52-1.04) mg/dL Estimated GFR ML/MIN Glucose (74-106) mg/dL Calcium (8.4-10.2) mg/dL Total Bilirubin (0.2-1.3) mg/dL AST (14-36) U/L ALT (0-35) U/L Alkaline Phosphatase (38-126) U/L Troponin I < 0.012 (0.000-0.034) ng/mL Serum Total Protein (6.3-8.2) g/dL Albumin (3.5-5.0) g/dL Amylase (30-110) U/L Lipase (23-300) U/L - Progress Progress: improved Air Movement: fair Progress Note: 09/12/18 16:49 Patient's troponin within normal limits EKG no acute disease process noted chest x-ray unremarkable. Patient states that she does have some pain in her ears TMs are maldonado intact patient has a small cyst in the right anterior lateral neck which is being worked up by her family physician. We will go ahead and repeat patient's troponin consider discharge if second troponin within normal limits. 09/12/18 18:52 Patient's second troponin within normal limits. Patient did have a mild elevated lipase she is not having any abdominal pain she is feeling better. Will discharge patient patient does have morphine IR her home. Diagnoses 1 noncardiac chest pain. 2 neck pain. - Departure Departure Disposition: Home Clinical Impression: Non-cardiac chest pain, Neck pain Condition: Fair Critical Care Time: No Referrals: CHRIS KAYE NP [Primary Care Provider] - Additional Instructions: Return home, rest. Medications as prescribed by your family doctor and your pain control physician. Follow-up with your family doctor. Your lipase was mildly elevated today this will need to be rechecked next week avoid fatty foods. Return for acute distress or for severe symptoms or for any problems.
[2018-09-12] MEDS ORDERED: MORPHINE SULFATE 4 MG INJ ONE (15:29)
[2018-09-12] MEDS ORDERED: Zofran 4 MG/2 ML VIAL ONE (15:29)
[2018-09-12 15:52] LABS: BASOPHIL % 0.5 % (0.0-0.4); Basophil (Absolute #) 0.04 (0-0.4); Eosinophil % 1.3 % (0.00-5.0); Eosinophil (Absolute #) 0.11 (0-0.5); Granulocyte Absolute (ANC) 5.48 (1.4-6.9); Granulocytes % 64.7 % (36.0-66.0); Hematocrit 38.8 % (35-47); Hemoglobin 12.7 gm/dl (12.0-16.0); Lymphocyte (Absolute #) 2.12 (1.0-4.6); Mean Cell Volume 87.4 fl (78-100); Mean Corpuscular Hemoglobin 28.6 pg (26-32); Mean Corpuscular Hgb Concent. 32.7 g/dl (32-36); Monocyte (Absolute #) 0.72 (0.0-1.3); Monocytes % 8.5 % (0.0-12.0); Platelet Count 220 K/mm3 (150-450); Red Blood Count 4.44 M/mm3 (4.1-5.4); Red Cell Distribution Width 17.6 % (11.5-14.0); White Blood Count 8.5 K/mm3 (4.0-10.5)
[2018-09-12 15:57] LABS: ALBUMIN 4.3 g/dL (3.5-5.0); ANION GAP 13.4 MEQ/L (5-15); BILIRUBIN,TOTAL 0.5 mg/dL (0.2-1.3); Calcium 9.8 mg/dL (8.4-10.2); Creatinine 1 1.1 mg/dL (0.52-1.04); Potassium 3.7 mmol/L (3.5-5.1); Total Protein 8.3 g/dL (6.3-8.2)
[2018-09-12 15:58] LABS: AMYLASE 80 U/L (30-110); LIPASE 478 U/L (23-300)
[2018-09-12 19:37] VITALS: BP 129/93; PULSE 60; O2SAT 96
--- NOTE | 2018-09-15 10:32 | XRAY ---
Indication: Cough. Neck and left arm pain. Comparison: June 10, 2018. Portable chest again demonstrates normal heart and lungs with left-sided AICD and right Port-A-Cath. Bony thorax intact again with mild osteopenia, degenerative changes, and right AC separation. No new/acute findings. Impression: Stable nonacute chest with chronic features.
== END 2018-09-12 19:35 | disposition home or self-care (01) ==
LOC: ED 14:36
DX: R07.89 Other chest pain (principal); I50.9 Heart failure, unspecified; I25.10 Atherosclerotic heart disease of native coronary artery without angina pectoris; I10 Essential (primary) hypertension; E11.9 Type 2 diabetes mellitus without complications; Z85.850 Personal history of malignant neoplasm of thyroid; Z86.711 Personal history of pulmonary embolism; K21.9 Gastro-esophageal reflux disease without esophagitis; I48.91 Unspecified atrial fibrillation; Z79.01 Long term (current) use of anticoagulants; Z79.899 Other long term (current) drug therapy
CPT/HCPCS: 36000; 36415; 71045; 80053; 82150; 83690; 84484; 85025; 93005; 93041; 96374; 96375; 99284; J1642; J2270; J2405

== ENCOUNTER 2018-10-02 17:31 | Emergency (ER) | payer MEDICARE ==
[2018-10-02 17:48] VITALS: O2SAT 98
[2018-10-02] MEDS ORDERED: TYLENOL EXTRA STRENGTH 500 MG PO STA (17:51)
[2018-10-02] MEDS ORDERED: Adacel Vial IM ONE ×2 (17:52→18:05)
--- NOTE | 2018-10-02 17:55 | ERPHSYRPT ---
- History of Present Illness Time Seen by Provider: 10/02/18 17:53 Source: patient Patient Subjective Stated Complaint: pt had a heavy jar fall on left foot today. 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, +abrasion left lower leg, mild ache pain constant, no other injury Allergies/Adverse Reactions: codeine [Codeine] Allergy (Mild, Verified 10/02/18 17:49) Nausea and Vomiting Sulfa (Sulfonamide Antibiotics) [Sulfa(Sulfonamide Antibiotics)] Allergy (Mild, Verified 10/02/18 17:49) Nausea and Vomiting adhesive Allergy (Verified 10/02/18 17:49) acetaminophen [From Percocet] Adverse Reaction (Verified 10/02/18 17:49) Vomiting oxycodone [From Percocet] Adverse Reaction (Verified 10/02/18 17:49) Vomiting Home Medications: Omeprazole [Prilosec] 40 mg PO DAILY 11/24/11 [History] Linagliptin [Tradjenta] 5 mg PO DAILY 01/11/15 [History] Carvedilol 3.125 mg [Coreg 3.125 MG] 3.125 mg PO BID 06/08/15 [History] Nitroglycerin 0.4 mg Tablet [Nitrostat 0.4 MG Tablet] 0.4 mg SL UD PRN [History] Levothyroxine Sodium 100 Mcg [Synthroid 100 Mcg] 300 mcg PO BID 03/20/16 [ History] Apixaban [Eliquis] 5 mg PO BID 02/11/17 [History] Morphine Sulfate 15 mg PO QID PRN 11/10/17 [History] Tizanidine HCl 4 mg PO BID 11/10/17 [History] Furosemide [Lasix] 10 mg PO DAILY PRN 03/09/18 [History] Isosorbide Mononitrate 30 mg [Imdur 30 MG] 30 mg PO DAILY 06/10/18 [History ] Hx Tetanus, Diphtheria Vaccination/Date Given: No Hx Influenza Vaccination/Date Given: Yes Hx Pneumococcal Vaccination/Date Given: Yes Immunizations Up to Date: Yes - Review of Systems Constitutional: No Fever Eyes: No Vision Changes Respiratory: No Dyspnea Cardiac: No Chest Pain Abdominal/Gastrointestinal: No Abdominal Pain Musculoskeletal: Joint Pain, No Back Pain, No Neck Pain Skin: No Rash Neurological: No Dizziness - Past Medical History Pertinent Past Medical History: Yes Neurological History: Migraines, Stroke ENT History: No Pertinent History Cardiac History: Angina, Arrhythmia, Congenital Heart Disease, Congestive Heart Failure, Coronary Artery Disease, Hypertension Respiratory History: Asthma, CHF, Pneumonia, Pulmonary Embolism Endocrine Medical History: Diabetes Type II, Thyroid Cancer Musculoskeletal History: Other GI Medical History: GERD, Hernia, Other History: Other Psycho-Social History: No Pertinent History Female Reproductive Disorders: Endometriosis Other Medical History: THYROID CA 5 YEARS AGO; A FIB, CAROTID STENOSIS. States IBS or " part of my colon", Has illeostomy.Back fusion ,lower back in september 2017 and then 5 I&D after in september and october 2017 and November 2017 at [facility]. hx kidney stones. Myocarditis. - Past Surgical History Past Surgical History: Yes Neuro Surgical History: No Pertinent History Cardiac: Cardiac Catheterization, Internal Defibrillator, Pacemaker Respiratory: No Pertinent History Gastrointestinal: Appendectomy, Cholecystectomy, Colon Resection, Hernia Repair , Other Genitourinary: No Pertinent History Musculoskeletal: Orthopedic Surgery Female Surgical History: Hysterectomy Other Surgical History: THYROID REMOVED, 40% and 50% blockages found with last heart cath about 4 years ago. ankle surgery d/t break,ileostomy, CVL port removed and replaced, PICC line placed for CVL surgery September 2015. ostomy repair due to blockage 09/02, back surgery and 4 I&D september and october and november 2017. TLIF fused discs in back - Social History Smoking Status: Never smoker Exposure to second hand smoke: No Alcohol Use: None Drug Use: none Patient Lives Alone: No Significant Family History: heart disease, cancer, diabetes - Female History Hx Last Menstrual Period: post Hx Now: No - Nursing Vital Signs Nursing Vital Signs: Initial Vital Signs Temperature 97 F 10/02/18 17:44 Pulse Rate 61 10/02/18 17:44 Respiratory Rate 16 10/02/18 17:44 Blood Pressure 109/83 10/02/18 17:44 O2 Sat by Pulse Oximetry 98 10/02/18 17:44 Pain Scale Pain Intensity 7 - Physical Exam General Appearance: no apparent distress Mental Status Exam: alert, oriented x 3 Skin Exam: warm, dry, other (tender sts left foot, sen and pulses intact, nontender knee, irwin limited by pain) SpO2 Interpretation: normal SpO2: 98 - Course Nursing assessment & vital signs reviewed: Yes - Radiology Exams Foot X-ray Interpretation: Interpreted by me, Other (apparent fx distal 5th left MT, appliance hardware appears intact in foot and leg) Ordered Tests: Active Orders 24 hr Category Date Time Status Splint STAT Care 10/02/18 18:13 Ordered FOOT (MINIMUM 3 VIEWS) Stat Exams 10/02/18 18:09 Taken LOWER LEG Stat Exams 10/02/18 17:51 Taken Medication Summary Discontinued Medications Generic Name Dose Route Start Last Admin Trade Name Freq PRN Reason Stop Dose Admin Acetaminophen 500 mg 10/02/18 17:51 10/02/18 18:09 Tylenol Extra Strength 500 Mg PO 10/02/18 17:52 500 mg STAT STA Administration Acetaminophen Confirm 10/02/18 18:04 Tylenol Extra Strength 500 Mg Administered 10/02/18 18:05 Dose 500 mg .ROUTE .STK-MED ONE Diphtheria/Tetanus/Acell Pertussis 0.5 ml 10/02/18 17:52 10/02/18 18:10 Adacel Vial IM 10/02/18 17:53 Not Given .ONCE ONE Diphtheria/Tetanus/Acell Pertussis Confirm 10/02/18 18:05 Adacel Vial Administered 10/02/18 18:06 Dose 0.5 ml IM .STK-MED ONE - Progress Progress: improved Progress Note: 10/02/18 18:15 see your doctor and P orthopedics, ice and elevation and tylenol, walker and nonweight bearing, return if worse Counseled pt/family regarding: diagnosis, need for follow-up, rad results - Departure Departure Disposition: Home Clinical Impression: Foot fracture, left Qualifiers: Encounter type: initial encounter Fracture type: closed Qualified Code(s): S92.902A - Unspecified fracture of left foot, initial encounter for closed fracture Condition: Stable Critical Care Time: No Referrals: CHRIS KAYE NP [Primary Care Provider] - Instructions: Foot Fracture (DC)
[2018-10-02] MEDS ORDERED: TYLENOL EXTRA STRENGTH 500 MG ONE (18:04)
[2018-10-02 19:09] VITALS: BP 108/72; PULSE 88
--- NOTE | 2018-10-02 21:29 | XRAY ---
Indication: Pain following injury. Comparison: January 27, 2018. 3 nonweightbearing views of the right foot demonstrates healed 5th proximal phalanx and 5th metatarsal fractures. Stable osteopenia, heel spurs, first metatarsal bunionectomy, and old distal tibia/fibular fractures with hardware. No new/acute findings.
--- NOTE | 2018-10-02 21:31 | XRAY ---
Indication: Pain following injury. Comparison: February 02, 2015. 2 views of the left lower leg new ankle soft tissue swelling. Stable osteopenia, old distal fibula/tibia fractures with intact orthopedic hardware, and heel spurs. No other bony, articular, or soft tissue abnormalities.
== END 2018-10-02 19:02 | disposition home or self-care (01) ==
LOC: ED 17:31
DX: S92.902A Unspecified fracture of left foot, initial encounter for closed fracture (principal)
CPT/HCPCS: 29515; 73590; 73630; 90715; 99284; A9270-GY

== ENCOUNTER 2018-10-26 10:02 | Emergency (ER) | payer MEDICARE ==
[2018-10-26 10:19] VITALS: O2SAT 100
--- NOTE | 2018-10-26 10:35 | ERPHSYRPT ---
- History of Present Illness Time Seen by Provider: 10/26/18 10:15 Source: patient Exam Limitations: clinical condition (PA) Patient Subjective Stated Complaint: Pt had surgery on on her right side of neck to remove a tumor, she states that her throat has been swelling and is unable to swallow anything, she chokes on water and can't swallow pain pills or eat or drink since Friday night Triage Nursing Assessment: Pt's right jaw mildly swollen, approx 10 cm incision behind right ear that extends down the jaw line, healing nicely, vitals wnl, rates pain 12/26, reports that she has not had any pain medicine since Friday night, pulse good in neck Physician History: PATIENT WITH A HISTORY OF CONGESTIVE HEART FAILURE, TYPE 2 DIABETES, ATRIAL FIBRILLATION 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 DENIES DIFFICULTY BREATHING, FEVER OR CHILLS. STATES SHE IS UNABLE TO SWALLOW HER PAIN MEDICATION. Timing/Duration: day(s) Severity: moderate Associated Symptoms: denies symptoms Allergies/Adverse Reactions: codeine [Codeine] Allergy (Mild, Verified 10/26/18 10:19) Nausea and Vomiting Sulfa (Sulfonamide Antibiotics) [Sulfa(Sulfonamide Antibiotics)] Allergy (Mild, Verified 10/26/18 10:19) Nausea and Vomiting adhesive Allergy (Verified 10/26/18 10:19) acetaminophen [From Percocet] Adverse Reaction (Verified 10/26/18 10:19) Vomiting oxycodone [From Percocet] Adverse Reaction (Verified 10/26/18 10:19) Vomiting Home Medications: Omeprazole [Prilosec] 40 mg PO DAILY 11/24/11 [History] Linagliptin [Tradjenta] 5 mg PO DAILY 01/11/15 [History] Carvedilol 3.125 mg [Coreg 3.125 MG] 3.125 mg PO BID 06/08/15 [History] Nitroglycerin 0.4 mg Tablet [Nitrostat 0.4 MG Tablet] 0.4 mg SL UD PRN [History] Levothyroxine Sodium 100 Mcg [Synthroid 100 Mcg] 300 mcg PO BID 03/20/16 [ History] Apixaban [Eliquis] 5 mg PO BID 02/11/17 [History] Morphine Sulfate 15 mg PO QID PRN 11/10/17 [History] Tizanidine HCl 4 mg PO BID 11/10/17 [History] Furosemide [Lasix] 10 mg PO DAILY PRN 03/09/18 [History] Isosorbide Mononitrate 30 mg [Imdur 30 MG] 30 mg PO DAILY 06/10/18 [History ] Hx Tetanus, Diphtheria Vaccination/Date Given: No Hx Influenza Vaccination/Date Given: Yes Hx Pneumococcal Vaccination/Date Given: Yes - Review of Systems Constitutional: No Fever, No Chills Eyes: No Symptoms Ears, Nose, & Throat: No Symptoms Respiratory: No Symptoms, No Cough, No Dyspnea Cardiac: No Symptoms, No Chest Pain, No Edema, No Syncope Abdominal/Gastrointestinal: No Symptoms, No Abdominal Pain, No Nausea, No Vomiting, No Diarrhea Genitourinary Symptoms: No Symptoms, No Dysuria Musculoskeletal: No Symptoms, No Back Pain, No Neck Pain Skin: No Symptoms, No Rash Neurological: No Dizziness, No Focal Weakness, No Sensory Changes Psychological: No Symptoms Endocrine: No Symptoms All Other Systems: Reviewed and Negative - Past Medical History Pertinent Past Medical History: Yes Neurological History: Migraines, Stroke ENT History: No Pertinent History Cardiac History: Angina, Arrhythmia, Congenital Heart Disease, Congestive Heart Failure, Coronary Artery Disease, Hypertension Respiratory History: Asthma, CHF, Pneumonia, Pulmonary Embolism Endocrine Medical History: Diabetes Type II, Thyroid Cancer Musculoskeletal History: Other GI Medical History: GERD, Hernia, Other History: Other Psycho-Social History: No Pertinent History Female Reproductive Disorders: Endometriosis Other Medical History: THYROID CA 5 YEARS AGO; A FIB, CAROTID STENOSIS. States IBS or " part of my colon", Has illeostomy.Back fusion ,lower back in september 2017 and then 5 I&D after in september and october 2017 and November 2017 at [facility]. hx kidney stones. Myocarditis. - Past Surgical History Past Surgical History: Yes Neuro Surgical History: No Pertinent History Cardiac: Cardiac Catheterization, Internal Defibrillator, Pacemaker Respiratory: No Pertinent History Gastrointestinal: Appendectomy, Cholecystectomy, Colon Resection, Hernia Repair , Other Genitourinary: No Pertinent History Musculoskeletal: Orthopedic Surgery Female Surgical History: Hysterectomy Other Surgical History: THYROID REMOVED, 40% and 50% blockages found with last heart cath about 4 years ago. ankle surgery d/t break,ileostomy, CVL port removed and replaced, PICC line placed for CVL surgery September 2015. ostomy repair due to blockage 09/02, back surgery and 4 I&D september and october and november 2017. TLIF fused discs in back - Social History Smoking Status: Never smoker Exposure to second hand smoke: No Alcohol Use: None Drug Use: none Patient Lives Alone: No Significant Family History: heart disease, cancer, diabetes - Nursing Vital Signs Nursing Vital Signs: Initial Vital Signs Temperature 98.1 F 10/26/18 10:09 Pulse Rate 60 10/26/18 10:09 Blood Pressure 141/93 10/26/18 10:09 O2 Sat by Pulse Oximetry 100 10/26/18 10:09 Pain Scale Pain Intensity 8 - Physical Exam General Appearance: no apparent distress Eye Exam: PERRL/EOMI Ears, Nose, Throat Exam: normal ENT inspection (THERE IS MODERAT RIGHT PREAURICLE SWELLING), other (THERE IS A 10CM C-SHAPED INCISIONAL WOUND RIGHT POST AURICLE WITH EDGES INTACT WITH SUTURES, NO REDNESS AT EDGES OR DRAINAGE) Respiratory Exam: normal breath sounds Cardiovascular Exam: regular rate/rhythm Extremity Exam: normal inspection, normal range of motion Neurologic Exam: alert, oriented x 3 Skin Exam: normal color SpO2 Interpretation: normal SpO2: 100 Ordered Tests: Active Orders 24 hr Category Date Time Status BMP Stat Lab 10/26/18 10:45 Completed CBC W DIFF Stat Lab 10/26/18 10:45 Completed Lab/Rad Data: Laboratory Result Diagrams 10/26/18 10:45 10/26/18 10:45 Laboratory Results 10/26/18 10/26/18 Range/Units 10:45 10:45 WBC 5.8 (4.0-10.5) K/mm3 RBC 3.70 L (4.1-5.4) M/mm3 Hgb 11.2 L (12.0-16.0) gm/dl Hct 35.5 (35-47) % MCV 95.9 (78-100) fl MCH 30.2 (26-32) pg MCHC 31.5 L (32-36) g/dl RDW 17.4 H (11.5-14.0) % Plt Count 186 (150-450) K/mm3 MPV 9.2 (6-9.5) fl Gran % 53.9 (36.0-66.0) % Eos # (Auto) 0.32 (0-0.5) Absolute Lymphs (auto) 1.76 (1.0-4.6) Absolute Monos (auto) 0.53 (0.0-1.3) Lymphocytes % 30.6 (24.0-44.0) % Monocytes % 9.2 (0.0-12.0) % Eosinophils % 5.6 H (0.00-5.0) % Basophils % 0.7 (0.0-0.4) % Absolute Granulocytes 3.10 (1.4-6.9) Basophils # 0.04 (0-0.4) Sodium 140 (137-145) mmol/L Potassium 4.1 (3.5-5.1) mmol/L Chloride 103 (98-107) mmol/L Carbon Dioxide 28 (22-30) mmol/L Anion Gap 12.5 (5-15) MEQ/L BUN 14 (7-17) mg/dL Creatinine 1.25 H (0.52-1.04) mg/dL Estimated GFR 46.2 ML/MIN Glucose 84 (74-106) mg/dL Calcium 9.0 (8.4-10.2) mg/dL - Progress Progress Note: 10/26/18 11:24 PATIENT IS ABLE TO SWALLOW WATER WITHOUT DIFFICULTY Counseled pt/family regarding: lab results, diagnosis, need for follow-up - Departure Departure Disposition: Home Clinical Impression: WOUND RECHECK Condition: Stable Critical Care Time: No Referrals: WAQAR CASTRO [Primary Care Provider] - Additional Instructions: CONSULT WITH YOUR SURGEON TODAY FOR PAIN MANAGEMENT AND FOLLOWUP APPOINTMENT. MAY TAKE OVER THE COUNTER MOTRIN SUSPENSION OR TYLENOL ELIXIR NEEDED FOR PAIN. CONTINUE ALL CURRENT MEDICATIONS DIRECTED. CONSULT YOUR PRIMARY CARE PROVIDER FOR PAIN MANAGEMENT.
[2018-10-26 10:51] LABS: BASOPHIL % 0.7 % (0.0-0.4); Basophil (Absolute #) 0.04 (0-0.4); Eosinophil % 5.6 % (0.00-5.0); Eosinophil (Absolute #) 0.32 (0-0.5); Granulocytes % 53.9 % (36.0-66.0); Hematocrit 35.5 % (35-47); Hemoglobin 11.2 gm/dl (12.0-16.0); Lymphocyte (Absolute #) 1.76 (1.0-4.6); Lymphocytes % 30.6 % (24.0-44.0); Mean Cell Volume 95.9 fl (78-100); Mean Corpuscular Hemoglobin 30.2 pg (26-32); Mean Corpuscular Hgb Concent. 31.5 g/dl (32-36); Mean Platelet Volume 9.2 fl (6-9.5); Monocyte (Absolute #) 0.53 (0.0-1.3); Monocytes % 9.2 % (0.0-12.0); Platelet Count 186 K/mm3 (150-450); Red Cell Distribution Width 17.4 % (11.5-14.0); White Blood Count 5.8 K/mm3 (4.0-10.5)
[2018-10-26 10:56] VITALS: BP 143/93; PULSE 62
[2018-10-26 11:13] LABS: ANION GAP 12.5 MEQ/L (5-15); Creatinine 1 1.25 mg/dL (0.52-1.04); Potassium 4.1 mmol/L (3.5-5.1)
== END 2018-10-26 11:38 | disposition home or self-care (01) ==
LOC: ED 10:02
DX: Z48.00 Encounter for change or removal of nonsurgical wound dressing (principal); R22.1 Localized swelling, mass and lump, neck; E11.9 Type 2 diabetes mellitus without complications; Z79.899 Other long term (current) drug therapy; Z98.890 Other specified postprocedural states
CPT/HCPCS: 36415; 80048; 85025; 99283

== ENCOUNTER 2019-01-14 13:44 | Observation (INO) | payer MEDICARE ==
[2019-01-14] MEDS ORDERED: Sodium Chloride 0.9% 1000 ML 1,000 ML IV STA (13:56)
--- NOTE | 2019-01-14 14:01 | ERPHSYRPT ---
- History of Present Illness Time Seen by Provider: 01/14/19 13:59 Source: patient Physician History: mild to mod general weakness today, no fever, no injury, no rash, +anterior chest pain tightness, nonrad Allergies/Adverse Reactions: codeine [Codeine] Allergy (Mild, Verified 01/14/19 14:06) Nausea and Vomiting Sulfa (Sulfonamide Antibiotics) [Sulfa(Sulfonamide Antibiotics)] Allergy (Mild, Verified 01/14/19 14:06) Nausea and Vomiting adhesive Allergy (Verified 01/14/19 14:06) acetaminophen [From Percocet] Adverse Reaction (Verified 01/14/19 14:06) Vomiting oxycodone [From Percocet] Adverse Reaction (Verified 01/14/19 14:06) Vomiting Home Medications: Omeprazole [Prilosec] 40 mg PO DAILY 11/24/11 [History] Linagliptin [Tradjenta] 5 mg PO DAILY 01/11/15 [History] Carvedilol 3.125 mg [Coreg 3.125 MG] 3.125 mg PO BID 06/08/15 [History] Nitroglycerin 0.4 mg Tablet [Nitrostat 0.4 MG Tablet] 0.4 mg SL UD PRN [History] Levothyroxine Sodium 100 Mcg [Synthroid 100 Mcg] 300 mcg PO BID 03/20/16 [ History] Apixaban [Eliquis] 5 mg PO BID 02/11/17 [History] Morphine Sulfate 30 mg PO QID PRN 11/10/17 [History] Tizanidine HCl 4 mg PO BID 11/10/17 [History] Furosemide [Lasix] 10 mg PO DAILY PRN 03/09/18 [History] Hx Tetanus, Diphtheria Vaccination/Date Given: No Hx Influenza Vaccination/Date Given: Yes Hx Pneumococcal Vaccination/Date Given: Yes - Review of Systems Constitutional: No Fever Eyes: No Eye Redness Ears, Nose, & Throat: No Mouth Pain Respiratory: No Dyspnea Cardiac: Chest Pain Abdominal/Gastrointestinal: No Abdominal Pain Musculoskeletal: No Back Pain Skin: No Rash Neurological: No Headache - Past Medical History Pertinent Past Medical History: Yes Neurological History: Migraines, Stroke ENT History: No Pertinent History Cardiac History: Angina, Arrhythmia, Congenital Heart Disease, Congestive Heart Failure, Coronary Artery Disease, Hypertension Respiratory History: Asthma, CHF, Pneumonia, Pulmonary Embolism Endocrine Medical History: Diabetes Type II, Thyroid Cancer Musculoskeletal History: Other GI Medical History: GERD, Hernia, Other History: Other Psycho-Social History: No Pertinent History Female Reproductive Disorders: Endometriosis Other Medical History: THYROID CA 5 YEARS AGO; A FIB, CAROTID STENOSIS. States IBS or " part of my colon", Has illeostomy.Back fusion ,lower back in september 2017 and then 5 I&D after in september and october 2017 and November 2017 at [facility]. hx kidney stones. Myocarditis. - Past Surgical History Past Surgical History: Yes Neuro Surgical History: No Pertinent History Cardiac: Cardiac Catheterization, Internal Defibrillator, Pacemaker Respiratory: No Pertinent History Gastrointestinal: Appendectomy, Cholecystectomy, Colon Resection, Hernia Repair , Other Genitourinary: No Pertinent History Musculoskeletal: Orthopedic Surgery Female Surgical History: Hysterectomy Other Surgical History: THYROID REMOVED, 40% and 50% blockages found with last heart cath about 4 years ago. ankle surgery d/t break,ileostomy, CVL port removed and replaced, PICC line placed for CVL surgery September 2015. ostomy repair due to blockage 09/02, back surgery and 4 I&D september and october and november 2017. TLIF fused discs in back - Social History Smoking Status: Never smoker Exposure to second hand smoke: No Alcohol Use: None Drug Use: none Patient Lives Alone: No Significant Family History: heart disease, cancer, diabetes - Nursing Vital Signs Nursing Vital Signs: Initial Vital Signs Temperature 97.6 F 01/14/19 13:49 Pulse Rate 60 01/14/19 13:49 Respiratory Rate 18 01/14/19 13:49 Blood Pressure 139/99 01/14/19 13:49 O2 Sat by Pulse Oximetry 98 01/14/19 13:49 Pain Scale Pain Intensity 3 - Physical Exam General Appearance: no apparent distress Eye Exam: eyes nml inspection Ears, Nose, Throat Exam: moist mucous membranes Neck Exam: normal inspection Respiratory Exam: normal breath sounds Cardiovascular Exam: regular rate/rhythm Gastrointestinal/Abdomen Exam: soft, No tenderness Extremity Exam: pelvis stable Neurologic Exam: alert, oriented x 3, cooperative Skin Exam: warm, dry - Course Nursing assessment & vital signs reviewed: Yes EKG Interpreted by Me: Other (v paced 60) - Radiology Exams Chest X-ray Interpretation: Reviewed by me, Negative Ordered Tests: Active Orders 24 hr Category Date Time Status Pharmacologist STAT Care 01/14/19 13:57 Active EKG-ER Only STAT Care 01/14/19 13:56 Active CHEST 1 VIEW (PORTABLE) Stat Exams 01/14/19 13:56 Completed CBC W DIFF Stat Lab 01/14/19 14:15 Completed CMP Stat Lab 01/14/19 14:15 Completed TROPONIN Q3H Lab 01/14/19 14:15 Completed TROPONIN Q3H Lab 01/14/19 17:00 Ordered TROPONIN Q3H Lab 01/14/19 20:00 Ordered TROPONIN Q3H Lab 01/14/19 23:00 Ordered TROPONIN Q3H Lab 01/15/19 02:00 Ordered UA W/RFX UR CULTURE Stat Lab 01/14/19 15:53 Ordered Medication Summary Discontinued Medications Generic Name Dose Route Start Last Admin Trade Name Freq PRN Reason Stop Dose Admin Aspirin 324 mg 01/15/19 14:01 Ecotrin 81 Mg PO 01/15/19 14:02 DAILY ONE Aspirin 324 mg 01/14/19 14:12 01/14/19 14:23 Baby Aspirin 81 Mg Chew PO 01/14/19 14:13 324 mg STAT ONE Administration Aspirin Confirm 01/14/19 14:17 Baby Aspirin 81 Mg Chew Administered 01/14/19 14:18 Dose 324 mg .ROUTE .STK-MED ONE Sodium Chloride 1,000 mls @ 999 mls/hr 01/14/19 13:56 01/14/19 14:23 Sodium Chloride 0.9% 1000 Ml IV 01/14/19 14:56 999 mls/hr .Q1H1M STA Administration Sodium Chloride Confirm 01/14/19 14:17 Sodium Chloride 0.9% 1000 Ml Administered 01/14/19 14:18 Dose 1,000 mls @ ud .ROUTE .STK-MED ONE Ketorolac Tromethamine 30 mg 01/14/19 15:26 01/14/19 15:41 Toradol 30 Mg Injection IV 01/14/19 15:27 30 mg STAT ONE Administration Ketorolac Tromethamine Confirm 01/14/19 15:37 Toradol 30 Mg Injection Administered 01/14/19 15:38 Dose 30 mg .ROUTE .STK-MED ONE Lab/Rad Data: Laboratory Result Diagrams 01/14/19 14:15 01/14/19 14:15 Laboratory Results 01/14/19 01/14/19 01/14/19 Range/Units 14:15 14:15 14:15 WBC 5.3 (4.0-10.5) K/mm3 RBC 4.34 (4.1-5.4) M/mm3 Hgb 13.1 (12.0-16.0) gm/dl Hct 40.4 (35-47) % MCV 93.1 (78-100) fl MCH 30.2 (26-32) pg MCHC 32.4 (32-36) g/dl RDW 14.3 H (11.5-14.0) % Plt Count 168 (150-450) K/mm3 MPV 10.0 H (6-9.5) fl Gran % 44.6 (36.0-66.0) % Eos # (Auto) 0.20 (0-0.5) Absolute Lymphs (auto) 2.32 (1.0-4.6) Absolute Monos (auto) 0.36 (0.0-1.3) Lymphocytes % 43.5 (24.0-44.0) % Monocytes % 6.8 (0.0-12.0) % Eosinophils % 3.8 (0.00-5.0) % Basophils % 1.3 (0.0-0.4) % Absolute Granulocytes 2.38 (1.4-6.9) Basophils # 0.07 (0-0.4) Sodium 138 (137-145) mmol/L Potassium 4.3 (3.5-5.1) mmol/L Chloride 105 (98-107) mmol/L Carbon Dioxide 23 (22-30) mmol/L Anion Gap 13.8 (5-15) MEQ/L BUN 27 H (7-17) mg/dL Creatinine 2.23 H (0.52-1.04) mg/dL Estimated GFR 23.7 ML/MIN Glucose 85 (74-106) mg/dL Calcium 9.7 (8.4-10.2) mg/dL Total Bilirubin 0.60 (0.2-1.3) mg/dL AST 60 H (14-36) U/L ALT 25 (0-35) U/L Alkaline Phosphatase 99 (38-126) U/L Troponin I < 0.012 (0.000-0.034) ng/mL Serum Total Protein 8.2 (6.3-8.2) g/dL Albumin 4.5 (3.5-5.0) g/dL - Progress Progress: improved Progress Note: 01/14/19 16:29 admit d/w Dr Mccallum Discussed with : Jaki Will see patient in: hospital (observation) Counseled pt/family regarding: lab results, diagnosis, rad results - Departure Departure Disposition: Observation Clinical Impression: Chest pain Qualifiers: Chest pain type: precordial pain Qualified Code(s): R07.2 - Precordial pain Condition: Good Critical Care Time: No Referrals: WAQAR MCCALLUM [Primary Care Provider] -
[2019-01-14] MEDS ORDERED: BABY ASPIRIN 81 MG CHEW PO ONE (14:12)
[2019-01-14] MEDS ORDERED: Sodium Chloride 0.9% 1000 ML 1,000 ML ONE (14:17)
[2019-01-14] MEDS ORDERED: BABY ASPIRIN 81 MG CHEW ONE (14:17)
--- NOTE | 2019-01-14 14:31 | XRAY ---
Indication: Weakness. Comparison: September 12, 2018. Portable chest remains clear. Heart is now borderline enlarged again with tortuous descending aorta, left AICD, and right Port-A-Cath. Bony thorax intact. Impression: Borderline cardiomegaly. Negative for acute pneumonic process or CHF.
[2019-01-14 15:00] LABS: BASOPHIL % 1.3 % (0.0-0.4); Basophil (Absolute #) 0.07 (0-0.4); Eosinophil % 3.8 % (0.00-5.0); Granulocyte Absolute (ANC) 2.38 (1.4-6.9); Granulocytes % 44.6 % (36.0-66.0); Hematocrit 40.4 % (35-47); Hemoglobin 13.1 gm/dl (12.0-16.0); Lymphocyte (Absolute #) 2.32 (1.0-4.6); Lymphocytes % 43.5 % (24.0-44.0); Mean Cell Volume 93.1 fl (78-100); Mean Corpuscular Hemoglobin 30.2 pg (26-32); Mean Corpuscular Hgb Concent. 32.4 g/dl (32-36); Monocyte (Absolute #) 0.36 (0.0-1.3); Monocytes % 6.8 % (0.0-12.0); Platelet Count 168 K/mm3 (150-450); Red Blood Count 4.34 M/mm3 (4.1-5.4); Red Cell Distribution Width 14.3 % (11.5-14.0); White Blood Count 5.3 K/mm3 (4.0-10.5)
[2019-01-14] MEDS ORDERED: TORAdol 30 mg Injection IV ONE (15:26)
[2019-01-14 15:30] LABS: ALBUMIN 4.5 g/dL (3.5-5.0); ANION GAP 13.8 MEQ/L (5-15); BILIRUBIN,TOTAL 0.6 mg/dL (0.2-1.3); Calcium 9.7 mg/dL (8.4-10.2); Creatinine 1 2.23 mg/dL (0.52-1.04); Potassium 4.3 mmol/L (3.5-5.1); Total Protein 8.2 g/dL (6.3-8.2)
[2019-01-14] MEDS ORDERED: TORAdol 30 mg Injection ONE (15:37)
[2019-01-14 16:30] LABS: Appearance SLIGHTLY CLOUDY (CLEAR); Bacteria PACKED /HPF (NEGATIVE); Bilirubin NEGATIVE (NEGATIVE); Blood MODERATE Ery/ul (0-5); Glucose NEGATIVE (NEGATIVE); Ketones NEGATIVE (NEGATIVE); Leukocyte Esterase SMALL (NEGATIVE); Mucus SLIGHT /HPF (NEGATIVE); Nitrite POSITIVE (NEGATIVE); Protein,Urine Dip 30 (Negative); Specific Gravity 1.019 (1.005-1.025); Urobilinogen NEGATIVE mg/dL (0-1); WBC 51-100 /HPF (0-5)
[2019-01-14] MEDS ORDERED: ROCEPHIN 1 Gm-D5w 50 ml Bag** 1 G/50 ML IVPB IV STA (16:34)
[2019-01-14] MEDS ORDERED: ROCEPHIN 1 Gm-D5w 50 ml Bag** 1 G/50 ML IVPB IV ONE (16:48)
[2019-01-14] MEDS ORDERED: Voltaren GEL TOP PRN (18:07)
[2019-01-14] MEDS ORDERED: TYLENOL EXTRA STRENGTH 500 MG PO PRN (18:07)
[2019-01-14] MEDS ORDERED: NovoLOG Insulin SQ PRN (18:07)
[2019-01-14] MEDS ORDERED: MSIR 15 MG PO PRN (22:47)
[2019-01-14] MEDS ORDERED: Ms Contin 15 MG PO ONE (22:53)
[2019-01-14] MEDS: ELIQUIS 2.5 MG TABLET PO SCH (23:03)
[2019-01-14] MEDS: Coreg 3.125 MG PO SCH (23:03)
[2019-01-14] MEDS: Zanaflex 4 MG PO PRN (23:04)
[2019-01-14] MEDS: PHENERGAN 25 MG PO PRN (23:04)
[2019-01-15] MEDS: PHENERGAN 25 MG PO PRN ×2 (04:44→19:36)
--- NOTE | 2019-01-15 08:54 | HP ---
CHIEF COMPLAINT: Chest pain, recent fall, slurred speech. HISTORY OF PRESENT ILLNESS: The patient is a 63 year-old white female with complicated medical history. She has had neck surgery fairly recently leaving her with some right facial droop. She also has a history of pacemaker implantation. She has had thyroid cancer. History of previous atrial fibrillation and carotid artery stenosis. She has also had problems with her colon. She has had appendectomy, cholecystectomy, partial colon resection, hernia repair. PAST MEDICAL/SURGICAL HISTORY: HOME MEDICATIONS: Currently on Prilosec 40 mg a day, Tradjenta 5 mg a day, carvedilol 3.125 mg b.i.d., sublingual nitroglycerin PRN, levothyroxine 100 mcg 3 tablets b.i.d., Eliquis 5 mg b.i.d., morphine 3 mg four times a day, Zanaflex 4 mg b.i.d., Lasix 10 mg daily. ALLERGIES: CODEINE. SULFA. PERCOCET. PHYSICAL EXAMINATION: The patient's vital signs from the emergency room showed temperature to be 97.6F, pulse 60, respiratory rate 18 and blood pressure 139/99. O2 saturation 98%. HEENT: Normocephalic, atraumatic. Pupils equal round reactive to light. Extraocular movements intact. She has facial droop on the right side, mild slurring of her speech. NECK: Supple. There is evidence of previous surgery. CHEST: Clear. HEART: Regular rate and rhythm currently, paced. ABDOMEN: Soft. No palpable masses. EXTREMITIES: Without cyanosis, clubbing or edema. NEUROLOGIC: The patient is slow to speech, having some mild aphasia. However there are no other focal deficits in her extremities. LAB DATA AND TESTS: The patient's laboratory studies thus far have shown troponins less than 0.012. She had white count 5,300, hemoglobin 13.1 and PLT count 168,000. Her urine however showed 51 to 100 white blood cells per high power field and positive nitrite. She had a sugar of 85, BUN 27, creatinine was elevated 2.23 which is new for her. Electrolytes were normal. Liver enzymes showed slight elevation in AST at 60 although the ALT is normal. She had chest x-ray showing borderline cardiomegaly. Her EKG was paced rhythm. ASSESSMENT: A patient with acute renal injury, urinary tract infection, chest pain, diabetes mellitus type 2. The patient was admitted to the hospital to rule out myocardial infarction and incidentally found to have urinary tract infection which the patient was not complaining of. Urine cultures were obtained. The patient was started empirically on Rocephin while the cultures are pending. We are giving her IV fluids to try to return her renal function to normal. We are obtaining a CT scan of the brain due to the slurring of speech and right facial droop. However, I believe this was present previously from her previous surgery with no other focal deficits. The patient will be placed on sliding scale coverage for her insulin and continue to rule out for myocardial infarction and on telemetry. She will obtain OT/PT/ST evaluations as well.
[2019-01-15 09:16] LABS: ANION GAP 10.4 MEQ/L (5-15); Calcium 8.7 mg/dL (8.4-10.2); Creatinine 1 1.52 mg/dL (0.52-1.04); Potassium 4.3 mmol/L (3.5-5.1)
[2019-01-15] MEDS: ROCEPHIN 1 Gm-D5w 50 ml Bag** 1 G/50 ML IVPB IV SCH (09:39)
[2019-01-15] MEDS: Coreg 3.125 MG PO SCH ×2 (09:40→20:47)
[2019-01-15] MEDS: ELIQUIS 2.5 MG TABLET PO SCH ×2 (09:40→20:47)
--- NOTE | 2019-01-15 09:58 | XRAY ---
Indication: Weakness, unsteady gait, and delayed speech pattern. Multiple contiguous axial images obtained through the head without contrast. Comparison: July 15, 2016. Again age-appropriate global atrophy, mild/moderate periventricular degenerative micro-ischemia bilaterally, and old right occipital lobe infarct. New small focus of old left posterior parietal infarct near the vertex. No acute intracranial hemorrhage, abnormal extra-axial fluid collection, or mass effect. Fourth ventricle is midline without hydrocephalus. Bony calvarium intact. Visualized paranasal sinuses and mastoid air cells are clear. Impression: 1. New finding for old left posterior parietal infarct. 2. Stable atrophy, degenerative micro-ischemia, and old right occipital infarct. 3. No acute intracranial abnormalities. 4. Follow-up CT or MRI may yield further information if there remains further clinical concern. CT DI 68.81
[2019-01-15] MEDS ORDERED: Protonix 40MG Tablet PO SCH (10:00)
[2019-01-15] MEDS ORDERED: NON-FORMULARY ITEM (Omeprazole [Prilosec] 40 MG) PO SCH (10:00)
[2019-01-15] MEDS: Januvia 50 MG PO SCH (10:55)
[2019-01-15] MEDS: SYNTHROID 150 MCG PO SCH ×2 (10:55→20:47)
[2019-01-15] MEDS ORDERED: ECOTRIN 81 MG PO ONE (14:01)
[2019-01-15] MEDS: MSIR 15 MG PO SCH (19:43)
[2019-01-15] MEDS ORDERED: MSIR 15 MG ONE (19:43)
[2019-01-15] MEDS: Zanaflex 4 MG PO PRN (21:08)
[2019-01-16 04:49] LABS: BASOPHIL % 1.4 % (0.0-0.4); Basophil (Absolute #) 0.07 (0-0.4); Eosinophil % 4.7 % (0.00-5.0); Eosinophil (Absolute #) 0.23 (0-0.5); Granulocyte Absolute (ANC) 2.35 (1.4-6.9); Granulocytes % 48.5 % (36.0-66.0); Hematocrit 39.9 % (35-47); Hemoglobin 12.9 gm/dl (12.0-16.0); Lymphocyte (Absolute #) 1.93 (1.0-4.6); Lymphocytes % 39.8 % (24.0-44.0); Mean Cell Volume 93.4 fl (78-100); Mean Corpuscular Hemoglobin 30.2 pg (26-32); Mean Corpuscular Hgb Concent. 32.3 g/dl (32-36); Mean Platelet Volume 9.8 fl (6-9.5); Monocyte (Absolute #) 0.27 (0.0-1.3); Monocytes % 5.6 % (0.0-12.0); Platelet Count 166 K/mm3 (150-450); Red Blood Count 4.27 M/mm3 (4.1-5.4); Red Cell Distribution Width 14.3 % (11.5-14.0); White Blood Count 4.9 K/mm3 (4.0-10.5)
[2019-01-16 04:59] LABS: ALBUMIN 3.4 g/dL (3.5-5.0); ANION GAP 10.8 MEQ/L (5-15); BILIRUBIN,TOTAL 0.3 mg/dL (0.2-1.3); Creatinine 1 1.47 mg/dL (0.52-1.04); Potassium 4.2 mmol/L (3.5-5.1); Total Protein 6.7 g/dL (6.3-8.2)
[2019-01-16] MEDS: SYNTHROID 150 MCG PO SCH (09:00)
[2019-01-16] MEDS: Januvia 50 MG PO SCH (10:18)
[2019-01-16] MEDS: Coreg 3.125 MG PO SCH ×2 (10:18→21:43)
[2019-01-16] MEDS: ELIQUIS 2.5 MG TABLET PO SCH ×2 (10:18→21:43)
[2019-01-16] MEDS: MSIR 15 MG PO SCH ×2 (10:18→21:43)
[2019-01-16] MEDS: ROCEPHIN 1 Gm-D5w 50 ml Bag** 1 G/50 ML IVPB IV SCH (11:41)
--- NOTE | 2019-01-16 11:44 | PCM.NOTE ---
Date and Time: 01/16/19 6101 Subjective Assessment: Patient reports she was admitted from Dr. Mccallum's office for fatigue which continues. She reports Dr. Nice usually manages her thyroid medication. At home she takes this by itself at least an hour before eating but does not always separate it by at least 8 hours from her omeprazole. This may be affecting the absorption of her medication. It is unclear if she usually takes her evening dose on an empty stomach She reports some right sided facial droop and numbness since she had surgery on her neck in October. She had a head CT that was read as an old infarct and unable to do MRI due to pacemaker. She reports some nausea and some right sternal chest pain on and off that felt heavy and like "little shooters" She denies cough or rhinorrhea. Her nurse notes that Ms. Mullins told him that the lower dose of pain medication does not last as long. - Review of Systems Constitutional: Fatigue Eyes: No Symptoms Ears, Nose, & Throat: No Symptoms Respiratory: No Symptoms Cardiac: Chest Pain Abdominal/Gastrointestinal: Nausea, No Vomiting, No Constipation Genitourinary Symptoms: No No Symptoms Musculoskeletal: No No Symptoms Skin: Dryness Objective Exam General Appearance: no apparent distress, alert, obese Neurologic Exam: alert, cooperative, normal mood/affect Skin Exam: normal color, warm, dry, other (well healed scar on right side of neck), No rash Respiratory Exam: normal breath sounds, lungs clear, No crackles/rales, No rhonchi, No wheezing Cardiovascular Exam: regular rate/rhythm, normal heart sounds, No murmur, No friction rub, No gallop Gastrointestinal/Abdomen Exam: soft, normal bowel sounds, No tenderness, No distention, No mass Extremity Exam: other (no c/c/e) OBJECTIVE DATA Vital Signs: Vital Signs - 24 hr Temp Pulse Resp BP Pulse Ox 01/16/19 07:20 97.3 F 63 18 90/55 95 01/16/19 04:25 98.6 F 63 18 110/68 96 01/16/19 00:13 99/58 01/16/19 00:00 98.0 F 63 14 87/52 96 01/15/19 21:00 97.8 F 63 16 101/66 95 01/15/19 16:39 97.5 F 60 22 106/63 97 01/15/19 12:16 97.4 F 91 H 14 89/52 94 L Pain Assessment - Last Documented Pain Intensity 3 Pain Scale Used 0-10 Pain Scale,FLACC Intake and Output: Intake & Output 01/14/19 01/15/19 01/16/19 01/17/19 06:59 06:59 06:59 06:59 Intake Total 380 940 420 Balance 380 940 420 Weight 93.894 kg Lab Results: Accuchecks Date 01/15/19 Date 01/15/19 Time 22:00 Time 16:30 Accucheck Value: 106 Accucheck Value: 83 Accucheck Value: 66 Lab Results-Last 24 Hours 01/15/19 01/15/19 01/16/19 Range/Units 08:55 08:55 04:47 WBC 4.9 (4.0-10.5) K/mm3 RBC 4.27 (4.1-5.4) M/mm3 Hgb 12.9 (12.0-16.0) gm/dl Hct 39.9 (35-47) % MCV 93.4 (78-100) fl MCH 30.2 (26-32) pg MCHC 32.3 (32-36) g/dl RDW 14.3 H (11.5-14.0) % Plt Count 166 (150-450) K/mm3 MPV 9.8 H (6-9.5) fl Gran % 48.5 (36.0-66.0) % Eos # (Auto) 0.23 (0-0.5) Absolute Lymphs (auto) 1.93 (1.0-4.6) Absolute Monos (auto) 0.27 (0.0-1.3) Lymphocytes % 39.8 (24.0-44.0) % Monocytes % 5.6 (0.0-12.0) % Eosinophils % 4.7 (0.00-5.0) % Basophils % 1.4 (0.0-0.4) % Absolute Granulocytes 2.35 (1.4-6.9) Basophils # 0.07 (0-0.4) Sodium (137-145) mmol/L Potassium (3.5-5.1) mmol/L Chloride (98-107) mmol/L Carbon Dioxide (22-30) mmol/L Anion Gap (5-15) MEQ/L BUN (7-17) mg/dL Creatinine (0.52-1.04) mg/dL Estimated GFR ML/MIN Glucose (74-106) mg/dL Calcium (8.4-10.2) mg/dL Total Bilirubin (0.2-1.3) mg/dL AST (14-36) U/L ALT (0-35) U/L Alkaline Phosphatase (38-126) U/L Serum Total Protein (6.3-8.2) g/dL Albumin (3.5-5.0) g/dL Thyroxine (T4) < 0.405 L (5.53-10.96) ug/dL TSH 3rd Generation 139.000 H (0.47-4.68) mIU/L 01/16/19 01/16/19 Range/Units 04:47 04:47 WBC (4.0-10.5) K/mm3 RBC (4.1-5.4) M/mm3 Hgb (12.0-16.0) gm/dl Hct (35-47) % MCV (78-100) fl MCH (26-32) pg MCHC (32-36) g/dl RDW (11.5-14.0) % Plt Count (150-450) K/mm3 MPV (6-9.5) fl Gran % (36.0-66.0) % Eos # (Auto) (0-0.5) Absolute Lymphs (auto) (1.0-4.6) Absolute Monos (auto) (0.0-1.3) Lymphocytes % (24.0-44.0) % Monocytes % (0.0-12.0) % Eosinophils % (0.00-5.0) % Basophils % (0.0-0.4) % Absolute Granulocytes (1.4-6.9) Basophils # (0-0.4) Sodium 136 L (137-145) mmol/L Potassium 4.2 (3.5-5.1) mmol/L Chloride 110 H (98-107) mmol/L Carbon Dioxide 20 L (22-30) mmol/L Anion Gap 10.8 (5-15) MEQ/L BUN 25 H (7-17) mg/dL Creatinine 1.47 H (0.52-1.04) mg/dL Estimated GFR 38.3 ML/MIN Glucose 91 (74-106) mg/dL Calcium 9.0 (8.4-10.2) mg/dL Total Bilirubin 0.30 (0.2-1.3) mg/dL AST 43 H (14-36) U/L ALT 20 (0-35) U/L Alkaline Phosphatase 120 (38-126) U/L Serum Total Protein 6.7 (6.3-8.2) g/dL Albumin 3.4 L (3.5-5.0) g/dL Thyroxine (T4) (5.53-10.96) ug/dL TSH 3rd Generation 130.000 H (0.47-4.68) mIU/L Radiology Exams: Radiology Procedures Category Date Time Status CHEST 1 VIEW (PORTABLE) Stat Exams 01/14/19 13:56 Completed HEAD WITHOUT CONTRAST [CT] Routine Exams 01/15/19 08:34 Completed Multi-Disciplinary Progress Notes: Multi-Disciplinary Progress Notes 01/16/19 10:34 Physical Therapy Note by Nery Villanueva PATIENT IN BED UPON THERAPY ARRIVAL. PATIENT CAME TO SIT ON EDGE OF BED INDEP WITHOUT THERAPIST ASSIST. STOOD AT BEDSIDE INDEP WITH USE OF UE FOR SIT TO STAND. WITH ROLLING WALKER AMBULATED 120' WITH SBA ONLY. PATIENT C/O GENERAL FATIGUE WITH AMBULATION AND INCREASE IN CHRONIC BACK PAIN. NURSING PRESENT AND WENT TO GET MEDICATION FOR PATIENT UPON RETURN TO ROOM. PATIENT DEMONSTRATED SAFETY WITH TURNING TO SIT IN CHAIR AND ABLE TO PERFORM STAND TO SIT INDEP WITH PROPER HAND PLACEMENT. IN SITTING PERFORMED HIP FLEXION ALTERNATING, KNEE EXTENSION ALTERNATING, ANKLE PF/DF AND HIP ABD/ADDUCTION. PATIENT TOLERATED EXERCISES WITHOUT DIFFICULTY OR C/O OF INCREASE PAIN. NERY VILLANUEVA, PT Initialized on 01/16/19 10:34 - END OF NOTE Assessment/Plan (1) CHF (congestive heart failure) Current Visit: No Status: Acute Onset Date: ~03/09/18 Qualifiers: Heart failure type: unspecified Heart failure chronicity: unspecified Qualified Code(s): I50.9 - Heart failure, unspecified Assessment & Plan: Will decrease IV fluids to prevent overload as she has history of CHF. She has ruled out for acute LA. Code(s): I50.9 - HEART FAILURE, UNSPECIFIED (2) Hypothyroidism Current Visit: Yes Status: Acute Assessment & Plan: We have adjusted the time of her thyroid medication and also ppi. It would be too early to check another TSH tomorrow. If she will still be her Friday, I will order one for that day. It usually takes 10-14 days to see a significant change. Code(s): E03.9 - HYPOTHYROIDISM, UNSPECIFIED (3) UTI (urinary tract infection) Current Visit: Yes Status: Acute Assessment & Plan: Continue ceftriaxone which culture is sensitive to Code(s): N39.0 - URINARY TRACT INFECTION, SITE NOT SPECIFIED (4) Chronic back pain Current Visit: No Status: Chronic Assessment & Plan: Dr. Mccallum had changed over that he decreased her dose of morphine because she was very sleepy. He noted that she usually sees a pain management physician. Code(s): M54.9 - DORSALGIA, UNSPECIFIED; G89.29 - OTHER CHRONIC PAIN
[2019-01-16] MEDS: PHENERGAN 25 MG PO PRN (13:00)
[2019-01-16] MEDS ORDERED: Protonix 40MG Tablet PO SCH (22:00)
[2019-01-17] MEDS: Zanaflex 4 MG PO PRN (00:53)
[2019-01-17 07:45] VITALS: O2SAT 96
[2019-01-17] MEDS: SYNTHROID 150 MCG PO SCH (08:21)
--- NOTE | 2019-01-17 10:59 | PCM.DCORD ---
- Discharge Discharge Date: 01/17/19 Disposition: Home, Self-Care Condition: Fair Prescriptions: New Cefdinir 300 mg PO BID #8 capsule Levothyroxine Sodium 150 Mcg [Synthroid 150 Mcg] 600 mcg PO 0700 tablet Continue Omeprazole [Prilosec] 40 mg PO DAILY Linagliptin [Tradjenta] 5 mg PO DAILY Carvedilol 3.125 mg [Coreg 3.125 MG] 3.125 mg PO BID Apixaban [Eliquis] 5 mg PO BID Morphine Sulfate 30 mg PO BID PRN PRN PRN Reason: Pain Tizanidine HCl 4 mg PO TID PRN PRN PRN Reason: Pain Furosemide [Lasix] 10 mg PO DAILY PRN PRN Reason: swelling Promethazine HCl 25 mg [Phenergan 25 mg] 25 mg PO Q6H PRN PRN PRN Reason: Nausea/Vomiting Discontinued Levothyroxine Sodium 100 Mcg [Synthroid 100 Mcg] 300 mcg PO BID Additional Instructions: Take levothyroxine 600 mcg in the morning with a small sip of water 1 hour before eating and without any other medications. Take your pantoprazole in the evening so it will not affect the absorption of the levothyroxine. Follow up with: WAQAR CASTRO [Primary Care Provider] - 1 Week SALAS BLAKELY [NON-STAFF PHY W/O PRIVILEGES] - 1 Week
[2019-01-17] MEDS: ROCEPHIN 1 Gm-D5w 50 ml Bag** 1 G/50 ML IVPB IV SCH (11:33)
[2019-01-17] MEDS: Januvia 50 MG PO SCH (11:34)
[2019-01-17] MEDS: Coreg 3.125 MG PO SCH (11:35)
[2019-01-17] MEDS: ELIQUIS 2.5 MG TABLET PO SCH (11:35)
[2019-01-17] MEDS: MSIR 15 MG PO SCH (11:35)
[2019-01-17 12:23] VITALS: BP 114/56; PULSE 63
--- NOTE | 2019-01-19 14:01 | DS ---
DISCHARGE DIAGNOSES: 1) CHEST PAIN. 2) HYPOTHYROIDISM. 3) URINARY TRACT INFECTION. 4) CHRONIC BACK PAIN. 5) OLD CEREBROVASCULAR ACCIDENT. DISCHARGE PHYSICAL EXAMINATION: VITALS: Temperature current 97.8F, temperature max 97.9F, heart rate 63, respiratory rate 20, blood pressure 114/56. Oxygen saturation 96% on room air. GENERAL: The patient was a pleasant, talkative lady sitting up in bed in no acute distress. CVS: She had a regular rate and rhythm. No murmurs, gallops or rubs are appreciated. CHEST: Clear to auscultation bilaterally. No crackles or wheezes. ABDOMEN: Soft, nontender, nondistended with normal bowel sounds. EXTREMITIES: No clubbing, cyanosis or edema. SKIN: Warm, dry and intact. HOSPITAL COURSE: 1) CHEST PAIN: According to Dr. Mccallum's notes, she was admitted through the emergency room for chest pain. She had serial negative troponins. She sees a biostatistics professor as an outpatient and does not have any new chest pain at the time of discharge. 2) HYPOTHYROIDISM: Her TSH was checked and was found to be 139. She reports Dr. Nice manages this. At home she takes 300 mcg of levothyroxine twice a day. She also takes a proton pump inhibitor but does not necessarily separate this very much from her levothyroxine during the hospitalization. I had them change her dose to levothyroxine 600 mcg every morning one hour before breakfast with a small sip water and then change her proton pump inhibitor to the evening. The patient was instructed that she will need to follow up closely with Dr. Mccallum and Dr. Nice to monitor her thyroid level. 3) URINARY TRACT INFECTION: She had a urine culture that grew Klebsiella pneumonia susceptible to ceftriaxone. She was given three days of ceftriaxone IV and discharged with Cefdinir 300 mg p.o. b.i.d. to take for four more days. 4) CHRONIC BACK PAIN: During her hospitalization Dr. Mccallum decreased her morphine from 30 mg b.i.d. to 15 mg b.i.d. On the date of discharge the patient was concerned about this. She reports at home she usually will take 30 mg just once a day at night unless she was having problems. She reports Dr. Mccallum at this time is prescribing her pain medication. The patient was instructed to continue with the pain medication prescription she had at home and to follow up with primary care doctor. 5) OLD CEREBROVASCULAR ACCIDENT: She is having a little bit of droop of her face on one side which was thought to partly be from her recent neck surgery. She did have a CT scan done that was read as new finding for old left posterior parietal infarct and myocardial infarction was considered but she had a pacemaker so that could not be done. She was fully anticoagulated so I would defer any further anticoagulation to her primary care doctor or neurologist. DISCHARGE MEDICATIONS: Please see the discharge order. DISPOSITION: The patient was discharged to home in fair condition to follow up with Dr. Mccallum as well as garment liner, Dr. Nice.
== END 2019-01-17 14:12 | disposition home or self-care (01) ==
LOC: ED 13:44 → MED SURG 17:00
PROVIDERS: ADMIT Family Medicine; ATTEND Family Medicine
DX: R07.9 Chest pain, unspecified (principal); E03.9 Hypothyroidism, unspecified; N39.0 Urinary tract infection, site not specified; I50.9 Heart failure, unspecified; E11.9 Type 2 diabetes mellitus without complications; M54.9 Dorsalgia, unspecified; G89.29 Other chronic pain; R53.83 Other fatigue; N28.9 Disorder of kidney and ureter, unspecified; R47.01 Aphasia; Z86.73 Personal history of transient ischemic attack (TIA), and cerebral infarction without residual deficits; Z79.01 Long term (current) use of anticoagulants; Z79.899 Other long term (current) drug therapy; Z95.0 Presence of cardiac pacemaker
CPT/HCPCS: 36415; 70450; 71045; 80048; 80053; 81001; 82962; 83036; 84436; 84443; 84484; 85025; 87077; 87086; 87186; 93005; 93041; 93268; 96360; 96365; 96374; 97161; 97530; 99285; G0378; J0696; J1885; A9270-GY

== ENCOUNTER 2019-02-10 19:24 | Emergency (ER) | payer MEDICARE ==
[2019-02-10] MEDS ORDERED: Zofran 4 MG/2 ML VIAL IV ONE (19:33)
[2019-02-10] MEDS ORDERED: BABY ASPIRIN 81 MG CHEW PO ONE (19:33)
--- NOTE | 2019-02-10 19:33 | ERPHSYRPT ---
- History of Present Illness Time Seen by Provider: 02/10/19 19:25 Historian: patient, family Exam Limitations: no limitations Physician History: acute onset of chest pain 30 minutes prior to arrival. No shortness of breath or dizziness or syncope. Timing/Duration: today Activities at Onset: rest Quality: pressure Location: substernal Chest Pain Radiation: no radiation Severity of Pain-Max: moderate Severity of Pain-Current: moderate Modifying Factors: Improves With: nothing Associated Symptoms: nausea, fatigue, No vomiting, No palpitations, No heartburn , No abdominal pain, No shortness of breath, No cough, No hurts to breathe, No diaphoresis, No chills, No fever, No weakness, No syncope, No rash, No headache , No dizziness, No edema Prior Chest Pain/Cardiac Workup: cardiac cath Nitro Today/Relief: no nitro taken today Aspirin Treatment Today: no aspirin today Allergies/Adverse Reactions: codeine [Codeine] Allergy (Mild, Verified 02/10/19 19:43) Nausea and Vomiting Sulfa (Sulfonamide Antibiotics) [Sulfa(Sulfonamide Antibiotics)] Allergy (Mild, Verified 02/10/19 19:43) Nausea and Vomiting adhesive Allergy (Verified 02/10/19 19:43) acetaminophen [From Percocet] Adverse Reaction (Verified 02/10/19 19:43) Vomiting oxycodone [From Percocet] Adverse Reaction (Verified 02/10/19 19:43) Vomiting Home Medications: Omeprazole [Prilosec] 40 mg PO DAILY 11/24/11 [History] Linagliptin [Tradjenta] 5 mg PO DAILY 01/11/15 [History] Carvedilol 3.125 mg [Coreg 3.125 MG] 3.125 mg PO BID 06/08/15 [History] Apixaban [Eliquis] 5 mg PO BID 02/11/17 [History] Morphine Sulfate 30 mg PO TID PRN PRN 11/10/17 [History] Tizanidine HCl 4 mg PO TID PRN PRN 11/10/17 [History] Furosemide [Lasix] 10 mg PO DAILY PRN 03/09/18 [History] Promethazine HCl 25 mg [Phenergan 25 mg] 25 mg PO Q6H PRN PRN 01/14/19 [ History] Levothyroxine Sodium 150 Mcg [Synthroid 150 Mcg] 600 mcg PO DAILY 02/10/19 [History] Lisinopril [Zestril] 2.5 mg PO DAILY 02/10/19 [History] Hx Tetanus, Diphtheria Vaccination/Date Given: No Hx Influenza Vaccination/Date Given: Yes Hx Pneumococcal Vaccination/Date Given: Yes - Review of Systems Constitutional: Fatigue, Weakness, No Fever, No Chills Eyes: No Symptoms Ears, Nose, & Throat: No Symptoms Respiratory: No Cough, No Dyspnea Cardiac: Chest Pain, No Edema, No Syncope Abdominal/Gastrointestinal: No Abdominal Pain, No Nausea, No Vomiting, No Diarrhea Genitourinary Symptoms: No Dysuria Musculoskeletal: No Back Pain, No Neck Pain Skin: No Rash Neurological: No Dizziness, No Focal Weakness, No Sensory Changes Psychological: No Symptoms Endocrine: No Symptoms All Other Systems: Reviewed and Negative - Past Medical History Pertinent Past Medical History: Yes Neurological History: Migraines, Stroke ENT History: No Pertinent History Cardiac History: Angina, Arrhythmia, Congenital Heart Disease, Congestive Heart Failure, Coronary Artery Disease, Hypertension Respiratory History: Asthma, CHF, Pneumonia, Pulmonary Embolism Endocrine Medical History: Diabetes Type II, Thyroid Cancer Musculoskeletal History: Other GI Medical History: GERD, Hernia, Other History: Other Psycho-Social History: No Pertinent History Female Reproductive Disorders: Endometriosis Other Medical History: THYROID CA 5 YEARS AGO; A FIB, CAROTID STENOSIS. States IBS or " part of my colon", Has illeostomy.Back fusion ,lower back in september 2017 and then 5 I&D after in september and october 2017 and November 2017 at [facility]. hx kidney stones. Myocarditis. - Past Surgical History Past Surgical History: Yes Neuro Surgical History: No Pertinent History Cardiac: Cardiac Catheterization, Internal Defibrillator, Pacemaker Respiratory: No Pertinent History Gastrointestinal: Appendectomy, Cholecystectomy, Colon Resection, Hernia Repair , Other Genitourinary: No Pertinent History Musculoskeletal: Orthopedic Surgery Female Surgical History: Hysterectomy Other Surgical History: THYROID REMOVED, 40% and 50% blockages found with last heart cath about 4 years ago. ankle surgery d/t break,ileostomy, CVL port removed and replaced, PICC line placed for CVL surgery September 2015. ostomy repair due to blockage 09/02, back surgery and 4 I&D september and october and november 2017. TLIF fused discs in back. OCTOBER 2018 CAROTIDECTOMY AND LYMPH NODE REMOVAL ON RIGHT SIDE - Social History Smoking Status: Never smoker Exposure to second hand smoke: No Alcohol Use: None Drug Use: none Patient Lives Alone: No Significant Family History: heart disease, cancer, diabetes - Nursing Vital Signs Nursing Vital Signs: Initial Vital Signs Temperature 97.3 F 02/10/19 19:26 Pulse Rate 60 02/10/19 19:26 Respiratory Rate 16 02/10/19 19:26 Blood Pressure 114/66 02/10/19 19:26 O2 Sat by Pulse Oximetry 99 02/10/19 19:26 Pain Scale Pain Intensity 7 - Physical Exam General Appearance: no apparent distress, alert, obese Eye Exam: PERRL/EOMI, eyes nml inspection Ears, Nose, Throat Exam: normal ENT inspection, moist mucous membranes Neck Exam: normal inspection, non-tender, supple, full range of motion, other ( scar on the right side of the neck status post surgery for cancer.) Respiratory Exam: normal breath sounds, lungs clear, No respiratory distress Cardiovascular Exam: regular rate/rhythm, normal heart sounds Gastrointestinal/Abdomen Exam: soft, No tenderness, No mass Back Exam: normal inspection, No CVA tenderness, No vertebral tenderness Extremity Exam: normal inspection, normal range of motion Neurologic Exam: alert, oriented x 3, cooperative, normal mood/affect, sensation nml, No motor deficits Skin Exam: normal color, warm, dry - Course Nursing assessment & vital signs reviewed: Yes EKG Interpreted by Me: Other (HR 63, PPM Rhythm) - Radiology Exams Chest X-ray Interpretation: Interpreted by me, Other (Cardiomegaly, PPM, nothing acute ) Ordered Tests: Active Orders 24 hr Category Date Time Status Machine Rope Maker STAT Care 02/10/19 19:34 Active EKG-ER Only STAT Care 02/10/19 19:33 Active IV Insertion STAT Care 02/10/19 19:33 Active CHEST 1 VIEW (PORTABLE) Stat Exams 02/10/19 20:02 Taken CBC W DIFF Stat Lab 02/10/19 19:55 Completed CMP Stat Lab 02/10/19 19:55 Completed NT PRO BNP Stat Lab 02/10/19 19:55 Completed TROPONIN Stat Lab 02/10/19 19:55 Completed Medication Summary Discontinued Medications Generic Name Dose Route Start Last Admin Trade Name Freq PRN Reason Stop Dose Admin Aspirin 162 mg 02/10/19 19:33 02/10/19 19:50 Baby Aspirin 81 Mg Chew PO 02/10/19 19:34 162 mg STAT ONE Administration Metoclopramide HCl 10 mg 02/10/19 20:43 Reglan 10 Mg/2 Ml IV 02/10/19 20:44 STAT ONE Morphine Sulfate 2 mg 02/10/19 20:43 Morphine Sulfate 2 Mg Inj IV 02/10/19 20:44 STAT ONE Ondansetron HCl 4 mg 02/10/19 19:33 02/10/19 19:50 Zofran 4 Mg/2 Ml Vial IV 02/10/19 19:34 4 mg STAT ONE Administration Ondansetron HCl Confirm 02/10/19 19:45 Zofran 4 Mg/2 Ml Vial Administered 02/10/19 19:46 Dose 4 mg .ROUTE .[facility] Lab/Rad Data: Laboratory Result Diagrams 02/10/19 19:55 02/10/19 19:55 Laboratory Results 02/10/19 02/10/19 Range/Units 19:55 19:55 WBC 7.1 (4.0-10.5) K/mm3 RBC 3.80 L (4.1-5.4) M/mm3 Hgb 11.7 L (12.0-16.0) gm/dl Hct 35.7 (35-47) % MCV 93.9 (78-100) fl MCH 30.7 (26-32) pg MCHC 32.8 (32-36) g/dl RDW 15.1 H (11.5-14.0) % Plt Count 200 (150-450) K/mm3 MPV 9.2 (6-9.5) fl Gran % 58.1 (36.0-66.0) % Eos # (Auto) 0.18 (0-0.5) Absolute Lymphs (auto) 2.16 (1.0-4.6) Absolute Monos (auto) 0.57 (0.0-1.3) Lymphocytes % 30.6 (24.0-44.0) % Monocytes % 8.1 (0.0-12.0) % Eosinophils % 2.5 (0.00-5.0) % Basophils % 0.7 (0.0-0.4) % Absolute Granulocytes 4.10 (1.4-6.9) Basophils # 0.05 (0-0.4) Sodium 139 (137-145) mmol/L Potassium 4.3 (3.5-5.1) mmol/L Chloride 105 (98-107) mmol/L Carbon Dioxide 23 (22-30) mmol/L Anion Gap 15.2 H (5-15) MEQ/L BUN 21 H (7-17) mg/dL Creatinine 1.69 H (0.52-1.04) mg/dL Estimated GFR 32.6 ML/MIN Glucose 99 (74-106) mg/dL Calcium 9.0 (8.4-10.2) mg/dL Total Bilirubin 0.60 (0.2-1.3) mg/dL AST 28 (14-36) U/L ALT 13 (0-35) U/L Alkaline Phosphatase 105 (38-126) U/L Troponin I < 0.012 (0.000-0.034) ng/mL NT-Pro-B Natriuret Pep 459 (0-900) pg/mL Serum Total Protein 7.8 (6.3-8.2) g/dL Albumin 4.2 (3.5-5.0) g/dL - Progress Progress: improved Air Movement: good Progress Note: 02/10/19 20:48 advised admission. Patient and refused. Explained the risk. They understood. Patient is leaving AMA. Patient is completely stable when she left AMA. Counseled pt/family regarding: lab results, need for follow-up, rad results - Departure Departure Disposition: AMA Clinical Impression: Chest pain Qualifiers: Chest pain type: precordial pain Qualified Code(s): R07.2 - Precordial pain Condition: Good Critical Care Time: No Referrals: WAQAR CASTRO [Primary Care Provider] - Instructions: Chest Pain (DC), Atypical Chest Pain Prescriptions: Ondansetron ODT 4 MG [Zofran Odt 4 mg] 4 mg PO Q6H PRN PRN 4 Days #10 tab.rapdis PRN Reason: Nausea/Vomiting
[2019-02-10] MEDS ORDERED: Zofran 4 MG/2 ML VIAL ONE (19:45)
[2019-02-10 19:58] LABS: BASOPHIL % 0.7 % (0.0-0.4); Basophil (Absolute #) 0.05 (0-0.4); Eosinophil % 2.5 % (0.00-5.0); Eosinophil (Absolute #) 0.18 (0-0.5); Granulocytes % 58.1 % (36.0-66.0); Hematocrit 35.7 % (35-47); Hemoglobin 11.7 gm/dl (12.0-16.0); Lymphocyte (Absolute #) 2.16 (1.0-4.6); Lymphocytes % 30.6 % (24.0-44.0); Mean Cell Volume 93.9 fl (78-100); Mean Corpuscular Hgb Concent. 32.8 g/dl (32-36); Mean Platelet Volume 9.2 fl (6-9.5); Monocyte (Absolute #) 0.57 (0.0-1.3); Monocytes % 8.1 % (0.0-12.0); Platelet Count 200 K/mm3 (150-450); Red Cell Distribution Width 15.1 % (11.5-14.0); White Blood Count 7.1 K/mm3 (4.0-10.5)
[2019-02-10 20:00] LABS: Mean Corpuscular Hemoglobin 30.7 pg (26-32)
[2019-02-10 20:23] LABS: ALBUMIN 4.2 g/dL (3.5-5.0); ALKALINE PHOSPHATASE 105 U/L (38-126); ANION GAP 15.2 MEQ/L (5-15); BLOOD UREA NITROGEN 21 mg/dL (7-17); CHLORIDE 105 mmol/L (98-107); Carbon Dioxide 23 mmol/L (22-30); Creatinine 1 1.69 mg/dL (0.52-1.04); Glucose 99 mg/dL (74-106); NT PRO BNP 459 pg/mL (0-900); Potassium 4.3 mmol/L (3.5-5.1); SGOT/AST 28 U/L (14-36); SGPT/ALT 13 U/L (0-35); SODIUM 139 mmol/L (137-145); Total Protein 7.8 g/dL (6.3-8.2)
[2019-02-10 20:26] LABS: TROPONIN < 0.012 ng/mL (0.000-0.034)
[2019-02-10] MEDS ORDERED: MORPHINE SULFATE 2 MG INJ IV ONE (20:43)
[2019-02-10] MEDS ORDERED: Reglan 10 MG/2 ML IV ONE (20:43)
[2019-02-10] MEDS ORDERED: Reglan 10 MG/2 ML ONE (20:50)
[2019-02-10] MEDS ORDERED: MORPHINE SULFATE 2 MG INJ ONE (20:50)
[2019-02-10 21:20] VITALS: BP 106/72; PULSE 60; O2SAT 93
--- NOTE | 2019-02-11 08:47 | XRAY ---
Indication: Chest pain and dizziness. Comparison: January 14, 2019. Portable chest unchanged and remains clear. Heart remains borderline enlarged again with left AICD and right Port-A-Cath. No new/acute findings.
== END 2019-02-10 21:30 | disposition left against medical advice (07) ==
LOC: ED 19:24
DX: R07.2 Precordial pain (principal)
CPT/HCPCS: 36000; 36415; 71045; 80053; 83880; 84484; 85025; 93005; 93041; 96374; 96375; 99284; J1642; J2270; J2405; A9270-GY

== ENCOUNTER 2019-02-18 10:21 | Emergency (ER) | payer MEDICARE ==
--- NOTE | 2019-02-18 10:28 | ERPHSYRPT ---
- History of Present Illness Time Seen by Provider: 02/18/19 10:27 Source: patient, family Exam Limitations: no limitations Timing/Duration: gradual onset, worse Activites at Onset: none Onset Location: unknown Pain Radiation: none Severity of Pain-Max: none Severity of Pain-Current: none Prior abdominal problems: none Sexual intercourse history: non-contributory Modifying Factors: Improves With: nothing Associated Symptoms: denies symptoms Allergies/Adverse Reactions: codeine [Codeine] Allergy (Mild, Verified 02/18/19 10:36) Nausea and Vomiting Sulfa (Sulfonamide Antibiotics) [Sulfa(Sulfonamide Antibiotics)] Allergy (Mild, Verified 02/18/19 10:36) Nausea and Vomiting adhesive Allergy (Verified 02/18/19 10:36) acetaminophen [From Percocet] Adverse Reaction (Verified 02/18/19 10:36) Vomiting oxycodone [From Percocet] Adverse Reaction (Verified 02/18/19 10:36) Vomiting Home Medications: Omeprazole [Prilosec] 40 mg PO DAILY 11/24/11 [History] Linagliptin [Tradjenta] 5 mg PO DAILY 01/11/15 [History] Carvedilol 3.125 mg [Coreg 3.125 MG] 3.125 mg PO BID 06/08/15 [History] Apixaban [Eliquis] 5 mg PO BID 02/11/17 [History] Morphine Sulfate 30 mg PO TID PRN PRN 11/10/17 [History] Tizanidine HCl 4 mg PO TID PRN PRN 11/10/17 [History] Furosemide [Lasix] 10 mg PO DAILY PRN 03/09/18 [History] Promethazine HCl 25 mg [Phenergan 25 mg] 25 mg PO Q6H PRN PRN 01/14/19 [ History] Levothyroxine Sodium 150 Mcg [Synthroid 150 Mcg] 600 mcg PO DAILY 02/10/19 [History] Lisinopril [Zestril] 2.5 mg PO DAILY 02/10/19 [History] Hx Tetanus, Diphtheria Vaccination/Date Given: No Hx Influenza Vaccination/Date Given: Yes Hx Pneumococcal Vaccination/Date Given: Yes - Review of Systems Constitutional: No Symptoms Eyes: No Symptoms Ears, Nose, & Throat: No Symptoms Respiratory: No Symptoms Cardiac: No Symptoms Abdominal/Gastrointestinal: Abdominal Pain (mild generalized) Genitourinary Symptoms: No Symptoms Musculoskeletal: No Symptoms Skin: No Symptoms Neurological: No Symptoms Psychological: No Symptoms Endocrine: No Symptoms Hematologic/Lymphatic: No Symptoms Immunological/Allergic: No Symptoms All Other Systems: Reviewed and Negative - Past Medical History Pertinent Past Medical History: Yes Neurological History: Migraines, Stroke ENT History: No Pertinent History Cardiac History: Angina, Arrhythmia, Congenital Heart Disease, Congestive Heart Failure, Coronary Artery Disease, Hypertension Respiratory History: Asthma, CHF, Pneumonia, Pulmonary Embolism Endocrine Medical History: Diabetes Type II, Thyroid Cancer Musculoskeletal History: Other GI Medical History: GERD, Hernia, Other History: Other Psycho-Social History: No Pertinent History Female Reproductive Disorders: Endometriosis Other Medical History: THYROID CA 5 YEARS AGO; A FIB, CAROTID STENOSIS. States IBS or " part of my colon", Has illeostomy.Back fusion ,lower back in september 2017 and then 5 I&D after in september and october 2017 and November 2017 at [facility]. hx kidney stones. Myocarditis. - Past Surgical History Past Surgical History: Yes Neuro Surgical History: No Pertinent History Cardiac: Cardiac Catheterization, Internal Defibrillator, Pacemaker Respiratory: No Pertinent History Gastrointestinal: Appendectomy, Cholecystectomy, Colon Resection, Hernia Repair , Other Genitourinary: No Pertinent History Musculoskeletal: Orthopedic Surgery Female Surgical History: Hysterectomy Other Surgical History: THYROID REMOVED, 40% and 50% blockages found with last heart cath about 4 years ago. ankle surgery d/t break,ileostomy, CVL port removed and replaced, PICC line placed for CVL surgery September 2015. ostomy repair due to blockage 09/02, back surgery and 4 I&D september and october and november 2017. TLIF fused discs in back. OCTOBER 2018 CAROTIDECTOMY AND LYMPH NODE REMOVAL ON RIGHT SIDE - Social History Smoking Status: Never smoker Exposure to second hand smoke: No Alcohol Use: None Drug Use: none Patient Lives Alone: No Significant Family History: heart disease, cancer, diabetes - Nursing Vital Signs Nursing Vital Signs: Initial Vital Signs Temperature 98.6 F 02/18/19 10:36 Pulse Rate 50 L 02/18/19 10:36 Respiratory Rate 18 02/18/19 10:36 Blood Pressure 76/48 02/18/19 10:36 O2 Sat by Pulse Oximetry 99 02/18/19 10:36 Pain Scale Pain Intensity 8 - Physical Exam General Appearance: mild distress, alert, anxiety Eye Exam: PERRL/EOMI, eyes nml inspection Ears, Nose, Throat Exam: normal ENT inspection, dry mucous membranes Neck Exam: normal inspection, non-tender, supple Respiratory Exam: normal breath sounds, lungs clear, airway intact, No chest tenderness, No respiratory distress Cardiovascular Exam: normal heart sounds, normal peripheral pulses, bradycardia Gastrointestinal/Abdomen Exam: soft, normal bowel sounds, tenderness (mild diffuse), other (ileostomy pink and functioning), No guarding, No rebound Pelvic Exam: not done Rectal Exam: not done Back Exam: normal inspection, normal range of motion, No CVA tenderness Extremity Exam: normal inspection, normal range of motion, pelvis stable Neurologic Exam: alert, oriented x 3, cooperative, logistics lead II-XII nml as tested Skin Exam: normal color, warm, dry Lymphatic Exam: adenopathy SpO2 Interpretation: normal O2 Delivery: Room Air Ordered Tests: Active Orders 24 hr Category Date Time Status IV Insertion STAT Care 02/18/19 11:12 Active CBC W DIFF Stat Lab 02/18/19 11:34 Completed CMP Stat Lab 02/18/19 11:34 Completed CULTURE,URINE Stat Lab 02/18/19 11:38 Ordered UA W/RFX UR CULTURE Stat Lab 02/18/19 11:38 Completed Medication Summary Discontinued Medications Generic Name Dose Route Start Last Admin Trade Name Freq PRN Reason Stop Dose Admin Sodium Chloride Confirm 02/18/19 11:09 Sodium Chloride 0.9% 1000 Ml Administered 02/18/19 11:10 Dose 1,000 mls @ ud .ROUTE .STK-MED ONE Sodium Chloride 1,000 mls @ 999 mls/hr 02/18/19 11:12 02/18/19 13:35 Sodium Chloride 0.9% 1000 Ml IV 02/18/19 12:12 Infused .Q1H1M STA Infusion Sodium Chloride 1,000 mls @ 999 mls/hr 02/18/19 13:37 02/18/19 15:15 Sodium Chloride 0.9% 1000 Ml IV 02/18/19 14:37 Infused .Q1H1M STA Infusion Sodium Chloride Confirm 02/18/19 13:42 Sodium Chloride 0.9% 1000 Ml Administered 02/18/19 13:43 Dose 1,000 mls @ ud .ROUTE .STK-MED ONE Ceftriaxone Sodium/Dextrose 1 g in 50 mls @ 100 mls/hr 02/18/19 14:34 15:05 Rocephin 1 Gm-D5w 50 Ml Bag IV 02/18/19 15:03 100 ml/hr STAT STA 100 mls/hr Administration Ceftriaxone Sodium/Dextrose Confirm 02/18/19 15:01 Rocephin 1 Gm-D5w 50 Ml Bag Administered 02/18/19 15:02 Dose 1 g in 50 mls @ ud IV .STK-MED ONE Morphine Sulfate 4 mg 02/18/19 14:34 02/18/19 15:05 Morphine Sulfate 4 Mg Inj IV 02/18/19 14:35 4 mg STAT ONE Administration Morphine Sulfate Confirm 02/18/19 15:00 Morphine Sulfate 4 Mg Inj Administered 02/18/19 15:01 Dose 4 mg .ROUTE .STK-MED ONE Ondansetron HCl 4 mg 02/18/19 11:12 02/18/19 11:53 Zofran 4 Mg/2 Ml Vial IV 02/18/19 11:13 4 mg STAT ONE Administration Ondansetron HCl Confirm 02/18/19 11:36 Zofran 4 Mg/2 Ml Vial Administered 02/18/19 11:37 Dose 4 mg .ROUTE .STK-MED ONE Lab/Rad Data: Laboratory Result Diagrams 02/18/19 11:34 02/18/19 11:34 Laboratory Results 02/18/19 02/18/19 02/18/19 Range/Units 11:38 11:34 11:34 WBC 10.0 (4.0-10.5) K/mm3 RBC 3.89 L (4.1-5.4) M/mm3 Hgb 11.9 L (12.0-16.0) gm/dl Hct 36.1 (35-47) % MCV 92.8 (78-100) fl MCH 30.5 (26-32) pg MCHC 33.0 (32-36) g/dl RDW 15.0 H (11.5-14.0) % Plt Count 214 (150-450) K/mm3 MPV 9.5 (6-9.5) fl Gran % 79.3 H (36.0-66.0) % Eos # (Auto) 0.07 (0-0.5) Absolute Lymphs (auto) 1.33 (1.0-4.6) Absolute Monos (auto) 0.64 (0.0-1.3) Lymphocytes % 13.3 L (24.0-44.0) % Monocytes % 6.4 (0.0-12.0) % Eosinophils % 0.7 (0.00-5.0) % Basophils % 0.3 (0.0-0.4) % Absolute Granulocytes 7.94 H (1.4-6.9) Basophils # 0.03 (0-0.4) Sodium 134 L (137-145) mmol/L Potassium 5.5 H (3.5-5.1) mmol/L Chloride 98 (98-107) mmol/L Carbon Dioxide 25 (22-30) mmol/L Anion Gap 16.8 H (5-15) MEQ/L BUN 27 H (7-17) mg/dL Creatinine 1.84 H (0.52-1.04) mg/dL Estimated GFR 29.5 ML/MIN Glucose 112 H (74-106) mg/dL Calcium 9.3 (8.4-10.2) mg/dL Total Bilirubin 1.40 H (0.2-1.3) mg/dL AST 96 H (14-36) U/L ALT 45 H (0-35) U/L Alkaline Phosphatase 110 (38-126) U/L Serum Total Protein 7.7 (6.3-8.2) g/dL Albumin 4.2 (3.5-5.0) g/dL Urine Color ROSANNA (YELLOW) Urine Appearance SLIGHTLY CLOUDY (CLEAR) Urine pH 5.0 (5-6) Ur Specific Zalma 1.024 (1.005-1.025) Urine Protein 30 (Negative) Urine Ketones NEGATIVE (NEGATIVE) Urine Blood MODERATE (0-5) Hemal/ul Urine Nitrite POSITIVE (NEGATIVE) Urine Bilirubin NEGATIVE (NEGATIVE) Urine Urobilinogen 4 (0-1) mg/dL Ur Leukocyte Esterase TRACE (NEGATIVE) Urine WBC (Auto) 26-50 (0-5) /HPF Urine RBC (Auto) 26-50 (0-2) /HPF U Hyaline Cast (Auto) 6-10 (0-2) /LPF U Epithel Cells (Auto) RARE (FEW) /HPF Urine Bacteria (Auto) MODERATE (NEGATIVE) /HPF Urine Mucus (Auto) SLIGHT (NEGATIVE) /HPF Urine Culture Reflexed ORDERED SEPARATELY (NO) Urine Glucose NEGATIVE (NEGATIVE) mg/dL - Progress Progress: improved Air Movement: good Progress Note: 02/18/19 15:15 pt is feeling better and wants to go home Blood Culture(s) Obtained: No Antibiotics given: Yes Counseled pt/family regarding: lab results, diagnosis, need for follow-up - Departure Departure Disposition: Home Clinical Impression: UTI (urinary tract infection), Dehydration, Vomiting, Renal failure (ARF), acute on chronic Condition: Stable Critical Care Time: No Referrals: WAQAR CASTRO [Primary Care Provider] - Additional Instructions: drink plenty of fluids. follow up with dr. olivo office tomorrow for further management Prescriptions: Cefdinir 300 mg PO QAM 7 Days #7 capsule
[2019-02-18] MEDS ORDERED: Sodium Chloride 0.9% 1000 ML 1,000 ML ONE ×2 (11:09→13:42)
[2019-02-18] MEDS ORDERED: Sodium Chloride 0.9% 1000 ML 1,000 ML IV STA ×2 (11:12→13:37)
[2019-02-18] MEDS ORDERED: Zofran 4 MG/2 ML VIAL IV ONE (11:12)
[2019-02-18] MEDS ORDERED: Zofran 4 MG/2 ML VIAL ONE (11:36)
[2019-02-18 11:39] LABS: Absolute Neutrophil Ct (ANC) 7.94 (1.4-6.9); BASOPHIL % 0.3 % (0.0-0.4); Basophil (Absolute #) 0.03 (0-0.4); Eosinophil % 0.7 % (0.00-5.0); Eosinophil (Absolute #) 0.07 (0-0.5); Hematocrit 36.1 % (35-47); Hemoglobin 11.9 gm/dl (12.0-16.0); Lymphocyte (Absolute #) 1.33 (1.0-4.6); Lymphocytes % 13.3 % (24.0-44.0); Mean Cell Volume 92.8 fl (78-100); Mean Platelet Volume 9.5 fl (6-9.5); Monocyte (Absolute #) 0.64 (0.0-1.3); Monocytes % 6.4 % (0.0-12.0); Neutrophil % 79.3 % (36.0-66.0); Platelet Count 214 K/mm3 (150-450); Red Blood Count 3.89 M/mm3 (4.1-5.4)
[2019-02-18 11:40] LABS: Mean Corpuscular Hemoglobin 30.5 pg (26-32)
[2019-02-18 11:55] LABS: ALBUMIN 4.2 g/dL (3.5-5.0); ANION GAP 16.8 MEQ/L (5-15); BILIRUBIN,TOTAL 1.4 mg/dL (0.2-1.3); Calcium 9.3 mg/dL (8.4-10.2); Creatinine 1 1.84 mg/dL (0.52-1.04); Potassium 5.5 mmol/L (3.5-5.1); Total Protein 7.7 g/dL (6.3-8.2)
[2019-02-18 11:55] LABS: Appearance SLIGHTLY CLOUDY (CLEAR); Bacteria MODERATE /HPF (NEGATIVE); Bilirubin NEGATIVE (NEGATIVE); Blood MODERATE Ery/ul (0-5); Epithelial Cells RARE /HPF (FEW); Glucose NEGATIVE (NEGATIVE); Ketones NEGATIVE (NEGATIVE); Leukocyte Esterase TRACE (NEGATIVE); Mucus SLIGHT /HPF (NEGATIVE); Nitrite POSITIVE (NEGATIVE); Protein,Urine Dip 30 (Negative); RBC 26-50 /HPF (0-2); Specific Gravity 1.024 (1.005-1.025); Urobilinogen 4 mg/dL (0-1); WBC 26-50 /HPF (0-5)
[2019-02-18 12:56] VITALS: O2SAT 98
[2019-02-18] MEDS ORDERED: ROCEPHIN 1 Gm-D5w 50 ml Bag** 1 G/50 ML IVPB IV STA (14:34)
[2019-02-18] MEDS ORDERED: MORPHINE SULFATE 4 MG INJ IV ONE (14:34)
[2019-02-18] MEDS ORDERED: MORPHINE SULFATE 4 MG INJ ONE (15:00)
[2019-02-18] MEDS ORDERED: ROCEPHIN 1 Gm-D5w 50 ml Bag** 1 G/50 ML IVPB IV ONE (15:01)
[2019-02-18 16:24] VITALS: BP 110/71; PULSE 64
== END 2019-02-18 16:35 | disposition home or self-care (01) ==
LOC: ED 10:21
DX: N39.0 Urinary tract infection, site not specified (principal); E86.0 Dehydration; N17.9 Acute kidney failure, unspecified; I12.9 Hypertensive chronic kidney disease with stage 1 through stage 4 chronic kidney disease, or unspecified chronic kidney disease; N18.9 Chronic kidney disease, unspecified; Z95.810 Presence of automatic (implantable) cardiac defibrillator; Z85.850 Personal history of malignant neoplasm of thyroid; Z90.49 Acquired absence of other specified parts of digestive tract
CPT/HCPCS: 36000; 36415; 80053; 81001; 85025; 87086; 96360; 96361; 96365; 96374; 96375; 99285; J0696; J1642; J2270; J2405

== ENCOUNTER 2019-04-29 10:14 | Inpatient (IN) | payer MEDICARE ==
--- NOTE | 2019-04-29 10:25 | ERPHSYRPT ---
- History of Present Illness Time Seen by Provider: 04/29/19 10:15 Physician History: Patient is here with stroke like symptoms. This started at 9 pm last night. Patient states she tried to get out of bed at that time. She felt left leg weakness, decrease sensation, and difficulty putting weight on it. She had no other neurological symptoms at that time. Patient woke up at 8:30 Am today and had continued symptoms. Therefore, they arrived to the ER for further evaluation. left lower leg weakness, no pain no radiation started last night has stayed constant no other medications or interventions tried Timing/Duration: yesterday Severity: mild Character of Deficits: new weakness Deficits: cannot stand Baseline/Normal Cognition: alert oriented x 3 Current Cognition: alert oriented x 3 Baseline Gait: walks w/o assistance Allergies/Adverse Reactions: codeine [Codeine] Allergy (Mild, Verified 02/18/19 10:36) Nausea and Vomiting Sulfa (Sulfonamide Antibiotics) [Sulfa(Sulfonamide Antibiotics)] Allergy (Mild, Verified 02/18/19 10:36) Nausea and Vomiting adhesive Allergy (Verified 02/18/19 10:36) acetaminophen [From Percocet] Adverse Reaction (Verified 02/18/19 10:36) Vomiting oxycodone [From Percocet] Adverse Reaction (Verified 02/18/19 10:36) Vomiting Home Medications: Omeprazole [Prilosec] 40 mg PO DAILY 11/24/11 [History] Carvedilol 3.125 mg [Coreg 3.125 MG] 3.125 mg PO BID 06/08/15 [History] Apixaban [Eliquis] 5 mg PO BID 02/11/17 [History] Tizanidine HCl 4 mg PO BID PRN PRN 11/10/17 [History] Furosemide [Lasix] 10 mg PO DAILY PRN 03/09/18 [History] Promethazine HCl 25 mg [Phenergan 25 mg] 25 mg PO Q6H PRN PRN 01/14/19 [ History] Albuterol Common Canister [Proventil Common Canister] 2 puff IH Q6HPRN PRN 04/29/19 [History] Levothyroxine Sodium [Synthroid] 300 mcg PO BID 04/29/19 [History] Morphine Sulfate 30 mg PO DAILY PRN PRN 04/29/19 [History] Nitroglycerin 0.4 mg SL Q5MIN PRN MR X 3 PRN 04/29/19 [History] Ondansetron [Ondansetron Odt] 4 mg PO Q6HPRN PRN 04/29/19 [History] Hx Tetanus, Diphtheria Vaccination/Date Given: No Hx Influenza Vaccination/Date Given: Yes Hx Pneumococcal Vaccination/Date Given: Yes - Review of Systems Constitutional: No Fever, No Chills Eyes: No Symptoms Ears, Nose, & Throat: No Symptoms Respiratory: No Cough, No Dyspnea Cardiac: No Chest Pain, No Edema, No Syncope Abdominal/Gastrointestinal: No Abdominal Pain, No Nausea, No Vomiting, No Diarrhea Genitourinary Symptoms: No Dysuria Musculoskeletal: No Back Pain, No Neck Pain Skin: No Rash Neurological: Focal Weakness, Sensory Changes, No Dizziness Psychological: No Symptoms Endocrine: No Symptoms All Other Systems: Reviewed and Negative - Past Medical History Pertinent Past Medical History: Yes Neurological History: Migraines, Stroke ENT History: No Pertinent History Cardiac History: Angina, Arrhythmia, Congenital Heart Disease, Congestive Heart Failure, Coronary Artery Disease, Hypertension Respiratory History: Asthma, CHF, Pneumonia, Pulmonary Embolism Endocrine Medical History: Diabetes Type II, Thyroid Cancer Musculoskeletal History: Other GI Medical History: GERD, Hernia, Other History: Other Psycho-Social History: No Pertinent History Female Reproductive Disorders: Endometriosis Other Medical History: THYROID CA 5 YEARS AGO; A FIB, CAROTID STENOSIS. States IBS or " part of my colon", Has illeostomy.Back fusion ,lower back in september 2017 and then 5 I&D after in september and october 2017 and November 2017 at [facility]. hx kidney stones. Myocarditis. - Past Surgical History Past Surgical History: Yes Neuro Surgical History: No Pertinent History Cardiac: Cardiac Catheterization, Internal Defibrillator, Pacemaker Respiratory: No Pertinent History Gastrointestinal: Appendectomy, Cholecystectomy, Colon Resection, Hernia Repair , Other Genitourinary: No Pertinent History Musculoskeletal: Orthopedic Surgery Female Surgical History: Hysterectomy Other Surgical History: THYROID REMOVED, 40% and 50% blockages found with last heart cath about 4 years ago. ankle surgery d/t break,ileostomy, CVL port removed and replaced, PICC line placed for CVL surgery September 2015. ostomy repair due to blockage 09/02, back surgery and 4 I&D september and october and november 2017. TLIF fused discs in back. OCTOBER 2018 CAROTIDECTOMY AND LYMPH NODE REMOVAL ON RIGHT SIDE - Social History Smoking Status: Never smoker Exposure to second hand smoke: No Alcohol Use: None Drug Use: none Patient Lives Alone: No Significant Family History: heart disease, cancer, diabetes - Nursing Vital Signs Nursing Vital Signs: Initial Vital Signs Temperature 97.8 F 04/29/19 10:15 Pulse Rate 62 04/29/19 10:15 Respiratory Rate 18 04/29/19 10:15 Blood Pressure 121/71 04/29/19 10:15 O2 Sat by Pulse Oximetry 100 04/29/19 10:15 Pain Scale Pain Intensity 0 - Jaycee Coma Scale Best Eye Response (Jefferson): (4) open spontaneously Best Verbal Response (Jefferson): (5) oriented Best Motor Response (Jaycee): (6) obeys commands Jaycee Total: 15 - Physical Exam General Appearance: no apparent distress, alert Eye Exam: bilateral eye: PERRL, EOMI Ears, Nose, Throat Exam: normal ENT inspection, moist mucous membranes Neck Exam: normal inspection, non-tender, supple Respiratory: normal breath sounds, lungs clear, airway intact, No respiratory distress Cardiovascular: regular rate/rhythm, No edema Gastrointestinal: soft, No tenderness, No distention Back Exam: normal inspection Extremity Exam: normal inspection, No pedal edema 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, 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 See nursing documentation -Complete left lower leg paralysis. No weight to gravity. Ordered Tests: Active Orders 24 hr Category Date Time Status Accucheck Q4H Care 04/29/19 12:11 Active Admit as Inpatient ROUTINE Care 04/29/19 12:11 Active Call Admit Doctor for Orders ON ADMISSION Care 04/29/19 12:11 Active Decator Operator STAT Care 04/29/19 10:18 Completed Code Status Order ROUTINE Care 04/29/19 12:11 Active EKG-ER Only STAT Care 04/29/19 10:16 Completed IV Care Q6H Care 04/29/19 12:11 Active IV Insertion STAT Care 04/29/19 10:16 Completed NPO (ED) STAT Care 04/29/19 10:17 Completed Neuro Checks Q4H Care 04/29/19 12:11 Active Cardiac Diet Diet 04/29/19 Breakfast Active CHEST 2 VIEWS (PA AND LAT) Stat Exams 04/29/19 10:17 Completed HEAD WITHOUT CONTRAST [CT] Stat Exams 04/29/19 10:18 Completed CBC W DIFF Stat Lab 04/29/19 11:00 Completed CMP Stat Lab 04/29/19 10:50 Completed PROTIME WITH INR Stat Lab 04/29/19 11:00 Completed PTT Stat Lab 04/29/19 11:00 Completed UA W/RFX UR CULTURE Stat Lab 04/29/19 10:17 Uncollected Transfer Order Routine Transfer 04/29/19 Completed Medication Summary Generic Name Dose Route Start Last Admin Trade Name Freq PRN Reason Stop Dose Admin Sodium Chloride 1,000 mls @ 120 mls/hr 04/29/19 12:45 Sodium Chloride 0.9% 1000 Ml IV 05/29/19 12:44 .Q8H20M JUSTIN Ondansetron HCl 4 mg 04/29/19 12:40 Zofran 4 Mg/2 Ml Vial IV 04/29/19 12:41 ONCE ONE Discontinued Medications Generic Name Dose Route Start Last Admin Trade Name Freq PRN Reason Stop Dose Admin Morphine Sulfate 4 mg 04/29/19 12:37 Morphine Sulfate 4 Mg Inj IV 04/29/19 12:38 ONCE ONE Lab/Rad Data: Laboratory Result Diagrams 04/29/19 11:00 04/29/19 10:50 Laboratory Results 04/29/19 04/29/19 04/29/19 Range/Units 11:00 11:00 10:50 WBC 11.4 H (4.0-10.5) K/mm3 RBC 3.91 L (4.1-5.4) M/mm3 Hgb 11.6 L (12.0-16.0) gm/dl Hct 37.7 (35-47) % MCV 96.4 (78-100) fl MCH 29.7 (26-32) pg MCHC 30.8 L (32-36) g/dl RDW 14.5 H (11.5-14.0) % Plt Count 176 (150-450) K/mm3 MPV 9.6 H (6-9.5) fl Gran % 79.1 H (36.0-66.0) % Eos # (Auto) 0.22 (0-0.5) Absolute Lymphs (auto) 1.48 (1.0-4.6) Absolute Monos (auto) 0.63 (0.0-1.3) Lymphocytes % 13.0 L (24.0-44.0) % Monocytes % 5.5 (0.0-12.0) % Eosinophils % 1.9 (0.00-5.0) % Basophils % 0.5 (0.0-0.4) % Absolute Granulocytes 8.97 H (1.4-6.9) Basophils # 0.06 (0-0.4) PT 11.2 (9.95-12.35) SECONDS INR 0.99 (0.8-3.0) APTT 25.8 (25.3-37.0) SECONDS Sodium 142 (137-145) mmol/L Potassium 4.5 (3.5-5.1) mmol/L Chloride 107 (98-107) mmol/L Carbon Dioxide 25 (22-30) mmol/L Anion Gap 14.7 (5-15) MEQ/L BUN 21 H (7-17) mg/dL Creatinine 1.20 H (0.52-1.04) mg/dL Estimated GFR 48.4 ML/MIN Glucose 90 (74-106) mg/dL Calcium 9.3 (8.4-10.2) mg/dL Total Bilirubin 0.60 (0.2-1.3) mg/dL AST 74 H (14-36) U/L ALT 47 H (0-35) U/L Alkaline Phosphatase 99 (38-126) U/L Serum Total Protein 8.7 H (6.3-8.2) g/dL Albumin 4.5 (3.5-5.0) g/dL - Progress Progress Note: 04/29/19 10:25 We will obtain basic labs, head CT, EKG, CXR. Most likely stroke based on physical exam. Patient is not a TPA candidate based on symptoms starting last night. 04/29/19 12:[address] shows no new head bleed. Patient will need to be admitted for stroke. I discussed over the phone with Dr. Mccallum in depth. He will admit the patient to his service. Patient stable at this point in time. Discussed with Dr.: Jaki (Spoke with Dr. Mccallum over the phone. ) Will see patient in: hospital (full admit) Counseled pt/family regarding: lab results, diagnosis - Departure Departure Disposition: In-patient Admission Clinical Impression: Stroke-like symptoms Condition: Stable Critical Care Time: Yes Critical Care Time(excluding separately billable procedures): Critical 30-74 mins (45 mins of critical care time for a new onset stroke)
--- NOTE | 2019-04-29 10:46 | XRAY ---
Indication: Headache. Stroke. Multiple contiguous axial images obtained through the head without contrast. Comparison: January 15, 2019. Stable age-appropriate global atrophy, moderate periventricular degenerative micro-ischemia bilaterally, old left posterior parietal infarct, and old right occipital lobe infarct. Again no acute intracranial hemorrhage, abnormal extra-axial fluid collection, or mass effect. Fourth ventricle is midline without hydrocephalus. Bony calvarium intact. Visualized paranasal sinuses and mastoid air cells are clear. Impression: 1. Stable nonacute senile brain with old bilateral infarcts as detailed. 2. Follow-up CT or MRI may yield further information if there remains further clinical concern. CTDI 56.51
--- NOTE | 2019-04-29 10:46 | XRAY ---
Indication: Pneumonia. Comparison: February 10, 2019. Portable chest remains clear. Heart remains borderline enlarged with right Port-A-Cath and left AICD. No new/acute cardiopulmonary abnormalities.
[2019-04-29 11:13] LABS: Absolute Neutrophil Ct (ANC) 8.97 (1.4-6.9); BASOPHIL % 0.5 % (0.0-0.4); Basophil (Absolute #) 0.06 (0-0.4); Eosinophil % 1.9 % (0.00-5.0); Eosinophil (Absolute #) 0.22 (0-0.5); Hematocrit 37.7 % (35-47); Hemoglobin 11.6 gm/dl (12.0-16.0); Lymphocyte (Absolute #) 1.48 (1.0-4.6); Mean Cell Volume 96.4 fl (78-100); Mean Corpuscular Hemoglobin 29.7 pg (26-32); Mean Corpuscular Hgb Concent. 30.8 g/dl (32-36); Mean Platelet Volume 9.6 fl (6-9.5); Monocyte (Absolute #) 0.63 (0.0-1.3); Monocytes % 5.5 % (0.0-12.0); Neutrophil % 79.1 % (36.0-66.0); Platelet Count 176 K/mm3 (150-450); Red Blood Count 3.91 M/mm3 (4.1-5.4); Red Cell Distribution Width 14.5 % (11.5-14.0); White Blood Count 11.4 K/mm3 (4.0-10.5)
[2019-04-29 11:15] LABS: INR 0.99 (0.8-3.0); PROTIME 11.2 SECONDS (9.95-12.35)
[2019-04-29 11:18] LABS: PTT 25.8 SECONDS (25.3-37.0)
[2019-04-29 11:20] LABS: ALBUMIN 4.5 g/dL (3.5-5.0); ANION GAP 14.7 MEQ/L (5-15); BILIRUBIN,TOTAL 0.6 mg/dL (0.2-1.3); Calcium 9.3 mg/dL (8.4-10.2); Creatinine 1 1.2 mg/dL (0.52-1.04); Potassium 4.5 mmol/L (3.5-5.1); Total Protein 8.7 g/dL (6.3-8.2)
[2019-04-29] MEDS ORDERED: MORPHINE SULFATE 4 MG INJ IV ONE (12:37)
[2019-04-29] MEDS ORDERED: Zofran 4 MG/2 ML VIAL IV ONE (12:40)
[2019-04-29] MEDS: Sodium Chloride 0.9% 1000 ML 1,000 ML IV SCH ×2 (12:57→21:23)
[2019-04-29] MEDS ORDERED: LASIX 20 MG PO PRN (15:14)
[2019-04-29] MEDS ORDERED: MORPHINE SULFATE 30 MG PO PRN (15:14)
[2019-04-29] MEDS ORDERED: Nitrostat 0.4 MG Tablet SL PRN (15:14)
[2019-04-29] MEDS ORDERED: PROVENTIL COMMON CANISTER IH PRN (15:14)
[2019-04-29] MEDS ORDERED: PHARMACY DOSING REQUEST MC ONE (16:11)
[2019-04-29 16:30] LABS: Appearance CLEAR (CLEAR); Bacteria FEW /HPF (NEGATIVE); Bilirubin NEGATIVE (NEGATIVE); Blood NEGATIVE Ery/ul (0-5); Epithelial Cells RARE /HPF (FEW); Glucose NEGATIVE (NEGATIVE); Ketones NEGATIVE (NEGATIVE); Leukocyte Esterase TRACE (NEGATIVE); Mucus SLIGHT /HPF (NEGATIVE); Nitrite NEGATIVE (NEGATIVE); Protein,Urine Dip NEGATIVE (Negative); RBC 0-2 /HPF (0-2); Specific Gravity 1.021 (1.005-1.025); Urobilinogen NEGATIVE mg/dL (0-1)
[2019-04-29] MEDS: PLAVIX 75 MG Tablet PO SCH (16:55)
[2019-04-29] MEDS: ECOTRIN 81 MG PO SCH (16:55)
[2019-04-29] MEDS: SYNTHROID 150 MCG PO SCH (16:56)
[2019-04-29] MEDS: TYLENOL 325 MG PO PRN (17:01)
[2019-04-29] MEDS: ELIQUIS 2.5 MG TABLET PO SCH (21:08)
[2019-04-29] MEDS: PHENERGAN 25 MG PO PRN (21:08)
[2019-04-29] MEDS: MSIR 15 MG PO PRN (21:08)
[2019-04-29] MEDS: Coreg 3.125 MG PO SCH (21:08)
[2019-04-29] MEDS ORDERED: NON-FORMULARY ITEM (Apixaban [Eliquis] 5 MG) PO SCH (22:00)
[2019-04-30] MEDS: Sodium Chloride 0.9% 1000 ML 1,000 ML IV SCH (06:39)
[2019-04-30] MEDS: SYNTHROID 150 MCG PO SCH ×2 (07:46→16:17)
[2019-04-30] MEDS ORDERED: BENADRYL 25 MG CAPSULE PO PRN (08:21)
[2019-04-30] MEDS ORDERED: NON-FORMULARY ITEM (Omeprazole [Prilosec] 40 MG) PO SCH (10:00)
[2019-04-30] MEDS ORDERED: FLUZONE QUAD 2019-2020 SYRINGE IM ONE (10:00)
[2019-04-30] MEDS: PLAVIX 75 MG Tablet PO SCH (10:04)
[2019-04-30] MEDS: ECOTRIN 81 MG PO SCH (10:04)
[2019-04-30] MEDS: Coreg 3.125 MG PO SCH ×2 (10:04→22:58)
[2019-04-30] MEDS: Protonix 40MG Tablet PO SCH (10:04)
[2019-04-30] MEDS: ELIQUIS 2.5 MG TABLET PO SCH ×2 (10:04→22:58)
[2019-04-30] MEDS: TYLENOL 325 MG PO PRN (10:04)
[2019-04-30] MEDS: PHENERGAN 25 MG PO PRN ×2 (12:47→20:08)
[2019-04-30] MEDS: MSIR 15 MG PO PRN ×2 (16:21→20:10)
[2019-04-30] MEDS: ZOFRAN ODT 4 MG PO PRN (16:24)
[2019-05-01 05:49] LABS: Mean Cell Volume 96.2 fl (78-100); Mean Corpuscular Hemoglobin 29.2 pg (26-32); Mean Corpuscular Hgb Concent. 30.3 g/dl (32-36); Mean Platelet Volume 9.7 fl (6-9.5); Platelet Count 156 K/mm3 (150-450); Red Blood Count 3.43 M/mm3 (4.1-5.4); Red Cell Distribution Width 14.6 % (11.5-14.0); White Blood Count 7.4 K/mm3 (4.0-10.5)
[2019-05-01 06:05] LABS: ANION GAP 11.6 MEQ/L (5-15); Calcium 8.7 mg/dL (8.4-10.2); Creatinine 1 1.08 mg/dL (0.52-1.04); Potassium 4.2 mmol/L (3.5-5.1)
[2019-05-01] MEDS: SYNTHROID 150 MCG PO SCH ×2 (06:24→16:27)
[2019-05-01] MEDS: TYLENOL 325 MG PO PRN ×2 (07:01→12:26)
[2019-05-01] MEDS: MSIR 15 MG PO PRN ×2 (07:06→21:46)
[2019-05-01] MEDS: Zanaflex 4 MG PO PRN ×2 (07:07→21:46)
[2019-05-01] MEDS: ZOFRAN ODT 4 MG PO PRN (08:15)
[2019-05-01] MEDS: PLAVIX 75 MG Tablet PO SCH (09:09)
[2019-05-01] MEDS: ECOTRIN 81 MG PO SCH (09:09)
[2019-05-01] MEDS: Coreg 3.125 MG PO SCH ×2 (09:10→21:40)
[2019-05-01] MEDS: ELIQUIS 2.5 MG TABLET PO SCH ×2 (09:10→21:40)
[2019-05-01] MEDS: Protonix 40MG Tablet PO SCH (09:10)
--- NOTE | 2019-05-01 15:27 | PCM.NOTE ---
Date and Time: 05/01/19 1524 Subjective Assessment: Pt moved 3 toes on her L foot this morning and was able to lift her L leg slightly! She is nauseated with some decreased appetite. - Review of Systems Constitutional: No Fever Abdominal/Gastrointestinal: Nausea Objective Exam General Appearance: no apparent distress, alert Neurologic Exam: oriented x 3, cooperative Skin Exam: normal color, warm, dry, No rash Ears, Nose, Throat Exam: moist mucous membranes Neck Exam: normal inspection Respiratory Exam: normal breath sounds, lungs clear, No crackles/rales, No rhonchi, No wheezing Cardiovascular Exam: regular rate/rhythm, normal heart sounds, No murmur Extremity Exam: other (no edema. unable to move L toes for me.) OBJECTIVE DATA Vital Signs: Vital Signs - 24 hr Temp Pulse Resp BP Pulse Ox 05/01/19 14:38 66 16 96 05/01/19 11:38 98.2 F 63 18 103/51 94 L 05/01/19 07:46 98.1 F 61 18 117/60 93 L 05/01/19 07:45 18 05/01/19 04:00 16 05/01/19 02:00 99.0 F 60 16 94/52 92 L 05/01/19 00:00 18 04/30/19 20:55 61 20 96 04/30/19 20:00 99.9 F 60 20 108/56 93 L 04/30/19 16:00 97.9 F 62 18 137/77 99 Oxygen-Last 24 hours O2 Percentage 2 Liters = 28% Pain Assessment - Last Documented Pain Intensity 3 Pain Scale Used 0-10 Pain Scale Intake and Output: Intake & Output 04/29/19 04/30/19 05/01/19 05/02/19 11:59 11:59 11:59 11:59 Intake Total 3620 1939 480 Output Total 3925 2150 Balance -305 -211 480 Weight 95.254 kg 82.3 kg 82.3 kg Lab Results: Accuchecks Date 05/01/19 Date 05/01/19 Date 04/30/19 Date 04/30/19 Time 11:30 Time 07:30 Time 22:00 Time 16:30 Accucheck Value: 98 Accucheck Value: 105 Accucheck Value: 77 Accucheck Value: 78 Lab Results-Last 24 Hours 05/01/19 05/01/19 Range/Units 05:40 05:40 WBC 7.4 (4.0-10.5) K/mm3 RBC 3.43 L (4.1-5.4) M/mm3 Hgb 10.0 L (12.0-16.0) gm/dl Hct 33.0 L (35-47) % MCV 96.2 (78-100) fl MCH 29.2 (26-32) pg MCHC 30.3 L (32-36) g/dl RDW 14.6 H (11.5-14.0) % Plt Count 156 (150-450) K/mm3 MPV 9.7 H (6-9.5) fl Sodium 137 (137-145) mmol/L Potassium 4.2 (3.5-5.1) mmol/L Chloride 105 (98-107) mmol/L Carbon Dioxide 25 (22-30) mmol/L Anion Gap 11.6 (5-15) MEQ/L BUN 11 (7-17) mg/dL Creatinine 1.08 H (0.52-1.04) mg/dL Estimated GFR 54.6 ML/MIN Glucose 105 (74-106) mg/dL Calcium 8.7 (8.4-10.2) mg/dL Multi-Disciplinary Progress Notes: Multi-Disciplinary Progress Notes 04/30/19 16:06 Case Management Note by Xenia Justice FROM [facility] CALLED TO REPORT THAT THEY WOULD BE ABLE TO ACCEPT PT TO SERVICES ON DISCHARGE. Initialized on 04/30/19 16:06 - END OF NOTE Assessment/Plan (1) Stroke Current Visit: Yes Status: Acute Qualifiers: CVA mechanism: embolism Precerebral and cerebral artery: middle cerebral artery Laterality of affected vessel: right Qualified Code(s): I63.411 - Cerebral infarction due to embolism of right middle cerebral artery Assessment & Plan: Encouraged pt to keep working the L leg. Stable. She will likely need rehab upon discharge. Code(s): I63.9 - CEREBRAL INFARCTION, UNSPECIFIED (2) Left leg weakness Current Visit: Yes Status: Acute Code(s): R29.898 - OTH SYMPTOMS AND SIGNS INVOLVING THE MUSCULOSKELETAL SYSTEM (3) Hypothyroidism Current Visit: No Status: Chronic Qualifiers: Hypothyroidism type: unspecified Qualified Code(s): E03.9 - Hypothyroidism , unspecified Code(s): E03.9 - HYPOTHYROIDISM, UNSPECIFIED (4) Hx pulmonary embolism Current Visit: Yes Status: Chronic Assessment & Plan: Pt was on Eliquis when she had her stroke. Dr. Mccallum added ASA and plavix after consultation with pharmacy. Code(s): Z86.711 - PERSONAL HISTORY OF PULMONARY EMBOLISM
[2019-05-01] MEDS ORDERED: Sodium Chloride 0.9% 250 ML 250 ML IV SCH (15:30)
[2019-05-02] MEDS: SYNTHROID 150 MCG PO SCH ×2 (06:11→16:34)
[2019-05-02] MEDS: PLAVIX 75 MG Tablet PO SCH (09:31)
[2019-05-02] MEDS: ELIQUIS 2.5 MG TABLET PO SCH ×2 (09:31→21:14)
[2019-05-02] MEDS: Coreg 3.125 MG PO SCH ×2 (09:31→21:14)
[2019-05-02] MEDS: Protonix 40MG Tablet PO SCH (09:31)
[2019-05-02] MEDS: ECOTRIN 81 MG PO SCH (09:31)
[2019-05-02] MEDS: MSIR 15 MG PO PRN (13:05)
[2019-05-02] MEDS: PHENERGAN 25 MG PO PRN (13:07)
--- NOTE | 2019-05-02 13:59 | PCM.NOTE ---
Date and Time: 05/02/19 6467 Subjective Assessment: Pt has been getting more movement from her LLE, although she is still unable to move the foot or toes. Moose po. - Review of Systems Constitutional: No Fever Abdominal/Gastrointestinal: No Vomiting Objective Exam General Appearance: no apparent distress, alert Neurologic Exam: oriented x 3, cooperative, other (approx 3/5 strength in L leg - unable to move foot/toes) Skin Exam: normal color, warm, dry, No rash Respiratory Exam: normal breath sounds, lungs clear, No crackles/rales, No rhonchi, No wheezing Cardiovascular Exam: regular rate/rhythm, normal heart sounds, No murmur Gastrointestinal/Abdomen Exam: soft, normal bowel sounds, No tenderness, No distention, No mass, No guarding, No rebound Extremity Exam: No pedal edema, No swelling OBJECTIVE DATA Vital Signs: Vital Signs - 24 hr Temp Pulse Resp BP Pulse Ox 05/02/19 11:47 98.3 F 62 18 117/60 94 L 05/02/19 08:00 66 18 97 05/02/19 07:42 98.1 F 60 18 115/64 98 05/02/19 04:38 118/66 05/02/19 04:00 97.7 F 65 18 80/46 96 05/01/19 23:57 99.3 F 62 18 103/58 93 L 05/01/19 20:00 98.7 F 70 18 109/57 95 05/01/19 16:35 88/64 05/01/19 15:54 98.2 F 65 18 88/52 100 05/01/19 14:38 66 16 96 Pain Assessment - Last Documented Pain Intensity 0 Pain Scale Used 0-10 Pain Scale Intake and Output: Intake & Output 04/30/19 05/01/19 05/02/19 05/03/19 11:59 11:59 11:59 11:59 Intake Total 3620 1939 2240 580 Output Total 3925 2150 1750 300 Balance -305 -211 490 280 Weight 82.3 kg 82.3 kg Lab Results: Accuchecks Date 05/02/19 Date 05/02/19 Date 05/01/19 Date 05/01/19 Time 11:30 Time 07:30 Time 22:00 Time 16:30 Accucheck Value: 110 Accucheck Value: 103 Accucheck Value: 119 Accucheck Value: 112 Assessment/Plan (1) Stroke Current Visit: Yes Status: Acute Qualifiers: CVA mechanism: embolism Precerebral and cerebral artery: middle cerebral artery Laterality of affected vessel: right Qualified Code(s): I63.411 - Cerebral infarction due to embolism of right middle cerebral artery Assessment & Plan: Getting some motion back of left leg - she states she can stand up and balance on it! Encouraged her to definitely follow with PT particularly now immediately after her CVA. Pt sounds agreeable to inpatient therapy but does not think her insurance will pay for it. Code(s): I63.9 - CEREBRAL INFARCTION, UNSPECIFIED (2) Left leg weakness Current Visit: Yes Status: Acute Code(s): R29.898 - OTH SYMPTOMS AND SIGNS INVOLVING THE MUSCULOSKELETAL SYSTEM (3) Hypothyroidism Current Visit: No Status: Chronic Qualifiers: Hypothyroidism type: unspecified Qualified Code(s): E03.9 - Hypothyroidism , unspecified Code(s): E03.9 - HYPOTHYROIDISM, UNSPECIFIED (4) Hx pulmonary embolism Current Visit: Yes Status: Chronic Assessment & Plan: On Eliquis, plavix, and asa. Code(s): Z86.711 - PERSONAL HISTORY OF PULMONARY EMBOLISM
[2019-05-02] MEDS: Zanaflex 4 MG PO PRN (21:16)
[2019-05-03 04:53] LABS: Hematocrit 33.1 % (35-47); Hemoglobin 10.3 gm/dl (12.0-16.0); Mean Cell Volume 95.1 fl (78-100); Mean Corpuscular Hemoglobin 29.6 pg (26-32); Mean Corpuscular Hgb Concent. 31.1 g/dl (32-36); Mean Platelet Volume 9.7 fl (6-9.5); Platelet Count 173 K/mm3 (150-450); Red Blood Count 3.48 M/mm3 (4.1-5.4); Red Cell Distribution Width 14.4 % (11.5-14.0); White Blood Count 5.4 K/mm3 (4.0-10.5)
[2019-05-03 05:15] LABS: ANION GAP 10.4 MEQ/L (5-15); Calcium 8.8 mg/dL (8.4-10.2); Creatinine 1 1.21 mg/dL (0.52-1.04); Potassium 4.5 mmol/L (3.5-5.1)
[2019-05-03] MEDS: SYNTHROID 150 MCG PO SCH ×2 (06:09→16:34)
[2019-05-03] MEDS: ZOFRAN ODT 4 MG PO PRN (08:34)
--- NOTE | 2019-05-03 09:07 | XRAY ---
Indication: Positive Homans sign. Two-dimensional sonogram and color Doppler imaging of the major venous vessels of the left and right leg was performed. Comparison: March 10, 2018. Right leg again demonstrates occluding thrombus in the popliteal vein. No thrombus in the remaining visualized common femoral, deep femoral, superficial femoral, posterior tibial, and greater saphenous veins. Left leg demonstrates new nonoccluding thrombus in the common femoral and distal superficial femoral veins. No thrombus in the remaining popliteal, posterior tibial, and greater saphenous veins. Impression: Again bilateral DVTs as detailed. Comment: Preliminary report was given.
[2019-05-03] MEDS: Protonix 40MG Tablet PO SCH (09:31)
[2019-05-03] MEDS: PLAVIX 75 MG Tablet PO SCH (09:31)
[2019-05-03] MEDS: Coreg 3.125 MG PO SCH ×2 (09:31→20:35)
[2019-05-03] MEDS: ECOTRIN 81 MG PO SCH (09:31)
[2019-05-03] MEDS: ELIQUIS 2.5 MG TABLET PO SCH ×2 (09:31→20:35)
[2019-05-03] MEDS: PHENERGAN 25 MG PO PRN ×2 (10:52→20:37)
[2019-05-03] MEDS: TYLENOL 325 MG PO PRN (12:51)
[2019-05-03 14:17] LABS: Absolute Neutrophil Ct (ANC) 10.31 (1.4-6.9); BASOPHIL % 0.2 % (0.0-0.4); Basophil (Absolute #) 0.03 (0-0.4); Eosinophil % 0.6 % (0.00-5.0); Eosinophil (Absolute #) 0.07 (0-0.5); Hematocrit 34.6 % (35-47); Lymphocyte (Absolute #) 1.07 (1.0-4.6); Lymphocytes % 8.7 % (24.0-44.0); Mean Cell Volume 92.8 fl (78-100); Mean Corpuscular Hemoglobin 29.5 pg (26-32); Mean Corpuscular Hgb Concent. 31.8 g/dl (32-36); Mean Platelet Volume 9.9 fl (6-9.5); Monocyte (Absolute #) 0.78 (0.0-1.3); Monocytes % 6.4 % (0.0-12.0); Neutrophil % 84.1 % (36.0-66.0); Platelet Count 197 K/mm3 (150-450); Red Blood Count 3.73 M/mm3 (4.1-5.4); Red Cell Distribution Width 14.3 % (11.5-14.0); White Blood Count 12.3 K/mm3 (4.0-10.5)
[2019-05-03 14:33] LABS: INFLUENZA A NEGATIVE (NEGATIVE); INFLUENZA B NEGATIVE (NEGATIVE); RESPIRATORY SYNCTIAL VIRUS NEGATIVE (Negative)
[2019-05-03] MEDS ORDERED: Zithromax 500 MG/ 250 ML NaCl Premix 500 MG/250 ML IVPB IV SCH (16:00)
[2019-05-03] MEDS ORDERED: Sodium Chloride 0.9% 500 ML 500 ML IV ONE (16:22)
--- NOTE | 2019-05-03 16:46 | XRAY ---
Indication: Fever/sweats. Comparison: April 29, 2019. AP/lateral chest obtained in wheelchair remains clear. Heart remains borderline enlarged with right Port-A-Cath and left AICD. No new/acute findings.
[2019-05-03] MEDS ORDERED: ROCEPHIN 1 Gm-D5w 50 ml Bag** 1 G/50 ML IVPB IV SCH (18:00)
[2019-05-03] MEDS: MSIR 15 MG PO PRN (18:11)
[2019-05-03] MEDS: Zanaflex 4 MG PO PRN (20:37)
[2019-05-03] MEDS ORDERED: Sodium Chloride 0.9% 1000 ML 1,000 ML ONE (21:13)
[2019-05-03] MEDS ORDERED: Sodium Chloride 0.9% 1000 ML 1,000 ML IV STA (21:36)
[2019-05-03 21:55] LABS: A-aADO2 588; ABG POTASSIUM 3.7 (3.5-5.1); ARTERIAL BLOOD GAS BASE EXCESS -8.3 (-2.0-2.0); ARTERIAL BLOOD GAS PCO2 25 mmHg (35-45); ARTERIAL BLOOD GAS PO2 94 mmHg (75-100); ARTERIAL BLOOD GAS pH 7.39 (7.35-7.45); HCO3- 15.1 (22-28); Methhemoglobin 0.7 % (1.4-1.5); paO2 pAO1 0.14
[2019-05-03 21:56] LABS: CARBOXYHEMOGLOBIN 2.3 % THgb (0.0-6.9); HGB O2 SAT 96.4 g/dF (94-100)
[2019-05-03 21:57] LABS: ABG HEMOGLOBIN 12.1; ARTERIAL BLD GAS O2 SATURATION 99.4 % (95-100)
[2019-05-03 21:58] LABS: ABG SITE RIGHT BRACHIAL; ARTERIAL BLOOD GAS FIO2 100 %
[2019-05-03 22:01] LABS: Absolute Neutrophil Ct (ANC) 9.57 (1.4-6.9); BASOPHIL % 0.2 % (0.0-0.4); Basophil (Absolute #) 0.02 (0-0.4); Eosinophil % 0.2 % (0.00-5.0); Eosinophil (Absolute #) 0.02 (0-0.5); Hematocrit 31.8 % (35-47); Lymphocyte (Absolute #) 0.39 (1.0-4.6); Lymphocytes % 3.8 % (24.0-44.0); Mean Cell Volume 94.6 fl (78-100); Mean Corpuscular Hemoglobin 29.8 pg (26-32); Mean Corpuscular Hgb Concent. 31.4 g/dl (32-36); Mean Platelet Volume 9.9 fl (6-9.5); Monocyte (Absolute #) 0.17 (0.0-1.3); Monocytes % 1.7 % (0.0-12.0); Neutrophil % 94.1 % (36.0-66.0); Platelet Count 159 K/mm3 (150-450); Red Blood Count 3.36 M/mm3 (4.1-5.4); Red Cell Distribution Width 14.3 % (11.5-14.0); White Blood Count 10.2 K/mm3 (4.0-10.5)
[2019-05-03 22:07] LABS: Appearance CLOUDY (CLEAR); Bacteria MANY /HPF (NEGATIVE); Bilirubin NEGATIVE (NEGATIVE); Blood NEGATIVE Ery/ul (0-5); Glucose NEGATIVE (NEGATIVE); Ketones NEGATIVE (NEGATIVE); Leukocyte Esterase NEGATIVE (NEGATIVE); Mucus SLIGHT /HPF (NEGATIVE); Nitrite NEGATIVE (NEGATIVE); Protein,Urine Dip 100 (Negative); Specific Gravity 1.019 (1.005-1.025); Urobilinogen NEGATIVE mg/dL (0-1)
[2019-05-03 22:18] LABS: SGPT/ALT 66 U/L (0-35)
[2019-05-03 22:23] LABS: ALBUMIN 3.3 g/dL (3.5-5.0); ALKALINE PHOSPHATASE 268 U/L (38-126); ANION GAP 14.5 MEQ/L (5-15); BLOOD UREA NITROGEN 13 mg/dL (7-17); CHLORIDE 107 mmol/L (98-107); Carbon Dioxide 23 mmol/L (22-30); Creatinine 1 1.21 mg/dL (0.52-1.04); Glucose 120 mg/dL (74-106); Potassium 3.8 mmol/L (3.5-5.1); SGOT/AST 172 U/L (14-36); SODIUM 140 mmol/L (137-145); Total Protein 6.8 g/dL (6.3-8.2)
[2019-05-03 22:26] LABS: TROPONIN < 0.012 ng/mL (0.000-0.034)
[2019-05-03] MEDS ORDERED: Dopamine 400 MG/D5W 250ML PREMIX 250 ML IV PRN (22:34)
[2019-05-03] MEDS: Sodium Chloride 0.9% 1000 ML 1,000 ML IV SCH (22:40)
[2019-05-03 23:18] LABS: Slide Review 1 YES
[2019-05-04] MEDS: TYLENOL 325 MG PO PRN (00:03)
[2019-05-04 01:05] VITALS: PULSE 61; O2SAT 94
[2019-05-04 04:00] VITALS: BP 116/77
--- NOTE | 2019-05-04 04:43 | ERPHSYRPT ---
- Events Time Seen by Provider: 04/29/19 10:15 Reason for Code Rapid: full arrest Pre-Event Complaints: found unresponsive CPR initiated prior to MD arrival: Yes Physician Note: called to eval pt in code blue. pt unresponsive upon arrival, no pulse cpr in progress. monitor shows v. fib. single defibrillation of 200 Joules immediately put pt into nsr hr 60s and palpable pulse. pt began to spontaneously breathe. this improved. we held orotracheal intubation, obtained ABG, placed pt on BIPAP , called and spoke with pts attending Dr. Mccallum. we transferred pt to icu, obtained cxr, ct head, ekg, troponin, cbc, cmp and ordered cardiology consult with dr. Carrillo.
--- NOTE | 2019-05-04 09:03 | XRAY ---
Indication: Status post code. Ventricular fibrillation. Comparison: Taken earlier in the day. Portable chest demonstrates new minimal bibasilar subsegmental atelectasis with stable borderline cardiomegaly, right Port-A-Cath, and left AICD. Remaining chest unremarkable. Comment: Preliminary interpretation was made by [facility]. No critical discrepancy.
--- NOTE | 2019-05-04 10:00 | DS ---
Transferred to [facility] on 05/03/2019. DISCHARGE DIAGNOSES: 1) CEREBROVASCULAR ACCIDENT WITH PARALYSIS OF LEFT LOWER EXTREMITY. 2) HISTORY OF ACUTE ON CHRONIC DEEP VENOUS THROMBOSIS IN THE LEFT LOWER EXTREMITY. 3) HISTORY OF PREVIOUS PLACEMENT OF LINDSEY FILTER. 4) HISTORY OF PREVIOUS CEREBROVASCULAR ACCIDENT. 5) VENTRICULAR FIBRILLATION. 6) HISTORY OF PLACEMENT OF PACEMAKER. HOSPITAL COURSE: The patient is a 63 year-old white female who presented to the hospital several hours after developing left lower extremity paralysis. She waited until the next morning to be seen in the emergency room. CT of the brain at the time revealed no acute changes but the patient obviously had left paralysis unable to move the leg at all on initial evaluation. The patient had been on Eliquis at home and was added Plavix and aspirin in the hospital to help further extension of the CVA. The patient did well initially showing some improvement in the left lower extremity over the ensuing few days really being more of a placement issue waiting for her to decide whether she is going to rehab or whether she would be candidate for swing-bed or going home with home health care. However on the afternoon of 05/03/2019 the patient developed fever undetermined source of infection. She had swabs performed for respiratory syncytial virus, flu and strep which were all negative. Urine appeared to be normal. Chest x-ray was normal. The patient was placed empirically on Rocephin and Zithromax after having IV placed and cultures obtained. The patient did become somewhat hypotensive after becoming diaphoretic receiving 500 cc fluid bolus. The patient continued to be somewhat hypotensive and at approximately 1900 hours in the evening had developed ventricular fibrillation. The patient had code response called and with one shock did return to a regular rhythm with pulse and the patient was somewhat groggy initially but cleared up nicely within a short period of time. The patient was transferred to the ICU. She received another two - 500 cc boluses of saline which still pressure stayed in the mid 80's. We then initiated dopamine which did bring her pressures up to 130's. We called for consultation. The patient's installer helper was Dr. Duarte and Dr. Louis was covering and suggested the patient be transferred to [facility] for further evaluation and management. After discussion with the transfer center, we transferred the patient to [facility] for further evaluation and management by their Hospitalist and by her installer helper. She was transferred through [facility] safely to [facility].
== END 2019-05-04 01:09 | disposition short-term general hospital (02) | DRG 64 ==
LOC: ED 10:14 → MED SURG 12:03 → ICU 05-03 21:28
PROVIDERS: ADMIT Family Medicine; ATTEND Family Medicine
DX: I63.9 Cerebral infarction, unspecified (principal); I49.01 Ventricular fibrillation; I69.354 Hemiplegia and hemiparesis following cerebral infarction affecting left non-dominant side; Z79.899 Other long term (current) drug therapy; I95.9 Hypotension, unspecified; R50.9 Fever, unspecified; E03.9 Hypothyroidism, unspecified; R53.1 Weakness; R41.82 Altered mental status, unspecified; I10 Essential (primary) hypertension; I25.10 Atherosclerotic heart disease of native coronary artery without angina pectoris; Z86.718 Personal history of other venous thrombosis and embolism; Z79.01 Long term (current) use of anticoagulants
CPT/HCPCS: 36000; 36415; 36600; 70450; 71045; 71046; 80048; 80053; 81001; 82375; 82803; 82962; 83036; 84484; 85025; 85027; 85610; 85730; 87040; 87086; 87631; 90686; 93005; 93041; 93970; 94002; 94760; 99285; J0456; J0696; J1265; J1642; J2270; J2405; Q0162; A9270-GY

== ENCOUNTER 2019-05-13 18:32 | Emergency (ER) | payer MEDICARE ==
[2019-05-13 19:35] LABS: Absolute Neutrophil Ct (ANC) 4.44 (1.4-6.9); BASOPHIL % 0.8 % (0.0-0.4); Basophil (Absolute #) 0.05 (0-0.4); Eosinophil % 1.2 % (0.00-5.0); Eosinophil (Absolute #) 0.08 (0-0.5); Hematocrit 37.7 % (35-47); Hemoglobin 11.9 gm/dl (12.0-16.0); Lymphocyte (Absolute #) 1.28 (1.0-4.6); Lymphocytes % 19.8 % (24.0-44.0); Mean Cell Volume 92.9 fl (78-100); Mean Corpuscular Hemoglobin 29.3 pg (26-32); Mean Corpuscular Hgb Concent. 31.6 g/dl (32-36); Mean Platelet Volume 9.2 fl (6-9.5); Monocytes % 9.3 % (0.0-12.0); Neutrophil % 68.9 % (36.0-66.0); Platelet Count 381 K/mm3 (150-450); Red Blood Count 4.06 M/mm3 (4.1-5.4); Red Cell Distribution Width 14.7 % (11.5-14.0); White Blood Count 6.5 K/mm3 (4.0-10.5)
[2019-05-13 19:48] LABS: ALBUMIN 4.5 g/dL (3.5-5.0); ANION GAP 12.2 MEQ/L (5-15); BILIRUBIN,TOTAL 0.6 mg/dL (0.2-1.3); Creatinine 1 1.05 mg/dL (0.52-1.04); Potassium 3.6 mmol/L (3.5-5.1)
[2019-05-13] MEDS ORDERED: MORPHINE SULFATE 10 MG/ML IV ONE (20:54)
[2019-05-13] MEDS ORDERED: ZOFRAN ODT 4 MG PO ONE (20:55)
[2019-05-13] MEDS ORDERED: ZOFRAN ODT 4 MG ONE (20:59)
[2019-05-13] MEDS ORDERED: MORPHINE SULFATE 4 MG INJ ONE (20:59)
[2019-05-13 22:07] VITALS: O2SAT 92
--- NOTE | 2019-05-13 23:13 | ERPHSYRPT ---
- History of Present Illness Time Seen by Provider: 05/13/19 19:30 Historian: patient, family Exam Limitations: no limitations Patient Subjective Stated Complaint: STATES ONE HOUR AGO HAD SHARP PAIN IN CHEST. HAS INTERNAL DEFIB AND PACEMAKER. IS NOW WEARING AN EXTERNAL DEFIB AFTER HAVING CARDIAC ARREST ONE WEEK AGO. CONTINUES TO HAVE PAIN IN CHEST. DENIES N/V. Triage Nursing Assessment: TO ROOM PER W/C. SKIN W/D, PALE. RESP EASY. PATIENT HOLDING CHEST. Physician History: C/O CP --NEG SOB HAS NOT BEEN TAKING HER CHRONIC PAIN MEDICATIONS DIRECTED-- ----HAS BEEN TAPERING HER DOSAGE PPOS HX CAD HAS PACER/DEFIBRILLATOR HAS A TEMP ONE NOW PENDING NEW PLACEMENT OF PACER NEG: N/V/D POS: PAIN ANT CHEST WITH PALPATION AND /OR MOVEMENT NEG: FEVER /CHILLS Timing/Duration: day(s) (2 ), intermittent, worse Activities at Onset: other (increased chestwall pain with movement ,cough or palpation ) Quality: sharpness (and) Location: back, other (costosternal jct and post t-spine ) Chest Pain Radiation: back Severity of Pain-Max: moderate Severity of Pain-Current: moderate (assopciated with cough/movement) Modifying Factors: Improves With: coughing, movement, palpation Associated Symptoms: hurts to breathe Prior Chest Pain/Cardiac Workup: cardiac cath, pulmonary embolism ([id number] on blood thinner/ has a green field filter ) Nitro Today/Relief: no nitro taken today Aspirin Treatment Today: 81 mg x 1 Allergies/Adverse Reactions: codeine [Codeine] Allergy (Mild, Verified 05/13/19 18:52) Nausea and Vomiting Sulfa (Sulfonamide Antibiotics) [Sulfa(Sulfonamide Antibiotics)] Allergy (Mild, Verified 05/13/19 18:52) Nausea and Vomiting adhesive Allergy (Verified 05/13/19 18:52) acetaminophen [From Percocet] Adverse Reaction (Verified 05/13/19 18:52) Vomiting oxycodone [From Percocet] Adverse Reaction (Verified 05/13/19 18:52) Vomiting Home Medications: Omeprazole [Prilosec] 40 mg PO DAILY 11/24/11 [History] Carvedilol 3.125 mg [Coreg 3.125 MG] 3.125 mg PO BID 06/08/15 [History] Apixaban [Eliquis] 5 mg PO BID 02/11/17 [History] Tizanidine HCl 4 mg PO BID PRN PRN 11/10/17 [History] Furosemide [Lasix] 10 mg PO DAILY PRN 03/09/18 [History] Promethazine HCl 25 mg [Phenergan 25 mg] 25 mg PO Q6H PRN PRN 01/14/19 [ History] Albuterol Common Canister [Proventil Common Canister] 2 puff IH Q6HPRN PRN 04/29/19 [History] Levothyroxine Sodium [Synthroid] 300 mcg PO BID 04/29/19 [History] Morphine Sulfate 30 mg PO DAILY PRN PRN 04/29/19 [History] Nitroglycerin 0.4 mg SL Q5MIN PRN MR X 3 PRN 04/29/19 [History] Ondansetron [Ondansetron Odt] 4 mg PO Q6HPRN PRN 04/29/19 [History] Aspirin [Elco Aspirin EC] 81 mg PO DAILY 05/13/19 [History] Hx Tetanus, Diphtheria Vaccination/Date Given: Yes Hx Influenza Vaccination/Date Given: Yes Hx Pneumococcal Vaccination/Date Given: Yes - Review of Systems Constitutional: Fatigue, No Fever, No Chills Eyes: No Symptoms Ears, Nose, & Throat: No Symptoms, Ear Pain, Ear Discharge, Hearing Changes Respiratory: Cough, Dyspnea on Exertion (TEJEDA) Cardiac: Chest Pain Abdominal/Gastrointestinal: No Symptoms Genitourinary Symptoms: No Symptoms Musculoskeletal: Arthralgias, Back Pain, Neck Pain, Myalgias Skin: No Symptoms Neurological: No Symptoms Psychological: No Symptoms Endocrine: No Symptoms Hematologic/Lymphatic: No Symptoms All Other Systems: Reviewed and Negative - Past Medical History Pertinent Past Medical History: Yes Neurological History: Migraines, Stroke ENT History: No Pertinent History Cardiac History: Angina, Arrhythmia, Congenital Heart Disease, Congestive Heart Failure, Coronary Artery Disease, Hypertension Respiratory History: Asthma, CHF, Pneumonia, Pulmonary Embolism Endocrine Medical History: Diabetes Type II, Thyroid Cancer Musculoskeletal History: Other GI Medical History: GERD, Hernia, Other History: Other Psycho-Social History: No Pertinent History Female Reproductive Disorders: Endometriosis Other Medical History: THYROID CA 5 YEARS AGO; A FIB, CAROTID STENOSIS. States IBS or " part of my colon", Has illeostomy.Back fusion ,lower back in september 2017 and then 5 I&D after in september and october 2017 and November 2017 at [facility]. hx kidney stones. Myocarditis. Parotid gland tumor. CARDIAC ARREST APRIL 2019 - Past Surgical History Past Surgical History: Yes Neuro Surgical History: No Pertinent History Cardiac: Cardiac Catheterization, Internal Defibrillator, Pacemaker Respiratory: No Pertinent History Gastrointestinal: Appendectomy, Cholecystectomy, Colon Resection, Hernia Repair , Other Genitourinary: No Pertinent History Musculoskeletal: Orthopedic Surgery Female Surgical History: Hysterectomy Other Surgical History: THYROID REMOVED, 40% and 50% blockages found with last heart cath about 4 years ago. ankle surgery d/t break,ileostomy, CVL port removed and replaced, PICC line placed for CVL surgery September 2015. ostomy repair due to blockage 09/02, back surgery and 4 I&D september and october and november 2017. 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 TLIF fused discs in back. OCTOBER 2018 CAROTIDECTOMY AND LYMPH NODE REMOVAL ON RIGHT SIDE. Right Parotid gland removed. - Social History Smoking Status: Never smoker Exposure to second hand smoke: Yes Alcohol Use: None Drug Use: none Patient Lives Alone: No Significant Family History: heart disease, cancer, diabetes - Female History Hx Now: No - Nursing Vital Signs Nursing Vital Signs: Initial Vital Signs Temperature 98.6 F 05/13/19 18:33 Pulse Rate 62 05/13/19 18:33 Respiratory Rate 18 05/13/19 18:33 Blood Pressure 163/93 05/13/19 18:33 O2 Sat by Pulse Oximetry 99 05/13/19 18:33 Pain Scale Pain Intensity 6 - Physical Exam General Appearance: mild distress Eye Exam: PERRL/EOMI Ears, Nose, Throat Exam: normal ENT inspection, TMs normal, moist mucous membranes Neck Exam: other (pos: djd cervical spine with decreased rom ) Respiratory Exam: chest tenderness, diminished breath sounds, prolonged expirations, crackles/rales Cardiovascular Exam: regular rate/rhythm, murmur (1-2/6 sys m apex neg: s3,s4 ) , capillary refill <2 sec, edema (mild 1+ pitting calf size lt >rt 28 and 29 cmrt ) Gastrointestinal/Abdomen Exam: soft, normal bowel sounds, tenderness (ruq/llq-- mild with deep palpation), No guarding, No rebound Pelvic Exam: not done Back Exam: other (pos: djd with decreased rom pos: tenderness t/l spine jct) Extremity Exam: other (full a/[p rom u/l extremity consistent with age/habitus djd large joints lower extremites with decreased rom/stiffness ) Neurologic Exam: alert, cooperative, 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 nml as tested, normal mood/ affect, nml cerebellar function, nml station & gait Skin Exam: normal color Lymphatic Exam: No adenopathy, No axilla node tender (L), No other SpO2 Interpretation: normal SpO2: 92 O2 Delivery: Room Air - Course Nursing assessment & vital signs reviewed: Yes Ordered Tests: Active Orders 24 hr Category Date Time Status Temperature Logging Operator STAT Care 05/13/19 18:43 Active EKG-ER Only STAT Care 05/13/19 18:42 Active IV Insertion STAT Care 05/13/19 18:42 Active Oxygen-ED Only Nasal Cannula 2 lpm Care 05/13/19 22:09 Active CHEST 1 VIEW (PORTABLE) Stat Exams 05/13/19 18:55 Taken CBC W DIFF Stat Lab 05/13/19 19:33 Completed CMP Stat Lab 05/13/19 19:33 Completed TROPONIN Q3H Lab 05/13/19 19:33 Completed TROPONIN Q3H Lab 05/13/19 22:00 Completed TROPONIN Q3H Lab 05/14/19 01:00 Ordered TROPONIN Q3H Lab 05/14/19 04:00 Ordered TROPONIN Q3H Lab 05/14/19 07:00 Ordered Medication Summary Discontinued Medications Generic Name Dose Route Start Last Admin Trade Name Brad PRN Reason Stop Dose Admin Morphine Sulfate 4 mg 05/13/19 20:54 05/13/19 21:07 Morphine Sulfate 10 Mg/Ml IV 05/13/19 20:55 4 mg STAT ONE Administration Morphine Sulfate Confirm 05/13/19 20:59 Morphine Sulfate 4 Mg Inj Administered 05/13/19 21:00 Dose 4 mg .ROUTE .STK-MED ONE Ondansetron HCl 4 mg 05/13/19 20:55 05/13/19 21:03 Zofran Odt 4 Mg PO 05/13/19 20:56 4 mg STAT ONE Administration Ondansetron HCl Confirm 05/13/19 20:59 Zofran Odt 4 Mg Administered 05/13/19 21:00 Dose 4 mg .ROUTE .STK-MED ONE Lab/Rad Data: Laboratory Result Diagrams 05/13/19 19:33 05/13/19 19:33 Laboratory Results 05/13/19 05/13/19 05/13/19 Range/Units 22:00 19:33 19:33 WBC (4.0-10.5) K/mm3 RBC (4.1-5.4) M/mm3 Hgb (12.0-16.0) gm/dl Hct (35-47) % MCV (78-100) fl MCH (26-32) pg MCHC (32-36) g/dl RDW (11.5-14.0) % Plt Count (150-450) K/mm3 MPV (6-9.5) fl Gran % (36.0-66.0) % Eos # (Auto) (0-0.5) Absolute Lymphs (auto) (1.0-4.6) Absolute Monos (auto) (0.0-1.3) Lymphocytes % (24.0-44.0) % Monocytes % (0.0-12.0) % Eosinophils % (0.00-5.0) % Basophils % (0.0-0.4) % Absolute Granulocytes (1.4-6.9) Basophils # (0-0.4) Sodium 141 (137-145) mmol/L Potassium 3.6 (3.5-5.1) mmol/L Chloride 107 (98-107) mmol/L Carbon Dioxide 26 (22-30) mmol/L Anion Gap 12.2 (5-15) MEQ/L BUN 19 H (7-17) mg/dL Creatinine 1.05 H (0.52-1.04) mg/dL Estimated GFR 56.4 ML/MIN Glucose 116 H (74-106) mg/dL Calcium 10.0 (8.4-10.2) mg/dL Total Bilirubin 0.60 (0.2-1.3) mg/dL AST 25 (14-36) U/L ALT 13 (0-35) U/L Alkaline Phosphatase 139 H (38-126) U/L Troponin I < 0.012 < 0.012 (0.000-0.034) ng/mL Serum Total Protein 9.0 H (6.3-8.2) g/dL Albumin 4.5 (3.5-5.0) g/dL 05/13/19 Range/Units 19:33 WBC 6.5 (4.0-10.5) K/mm3 RBC 4.06 L (4.1-5.4) M/mm3 Hgb 11.9 L (12.0-16.0) gm/dl Hct 37.7 (35-47) % MCV 92.9 (78-100) fl MCH 29.3 (26-32) pg MCHC 31.6 L (32-36) g/dl RDW 14.7 H (11.5-14.0) % Plt Count 381 (150-450) K/mm3 MPV 9.2 (6-9.5) fl Gran % 68.9 H (36.0-66.0) % Eos # (Auto) 0.08 (0-0.5) Absolute Lymphs (auto) 1.28 (1.0-4.6) Absolute Monos (auto) 0.60 (0.0-1.3) Lymphocytes % 19.8 L (24.0-44.0) % Monocytes % 9.3 (0.0-12.0) % Eosinophils % 1.2 (0.00-5.0) % Basophils % 0.8 (0.0-0.4) % Absolute Granulocytes 4.44 (1.4-6.9) Basophils # 0.05 (0-0.4) Sodium (137-145) mmol/L Potassium (3.5-5.1) mmol/L Chloride (98-107) mmol/L Carbon Dioxide (22-30) mmol/L Anion Gap (5-15) MEQ/L BUN (7-17) mg/dL Creatinine (0.52-1.04) mg/dL Estimated GFR ML/MIN Glucose (74-106) mg/dL Calcium (8.4-10.2) mg/dL Total Bilirubin (0.2-1.3) mg/dL AST (14-36) U/L ALT (0-35) U/L Alkaline Phosphatase (38-126) U/L Troponin I (0.000-0.034) ng/mL Serum Total Protein (6.3-8.2) g/dL Albumin (3.5-5.0) g/dL - Progress Progress: improved Progress Note: 05/13/19 23:25 improved with medications : pat refuses hospital stay for observation wishes to go home now paytient refuses cta: chest states that she has had to many ct-scan and does not want cancer -- discussed risks in depth with patient and 05/14/19 00:00take--pain medications as directed - Departure Departure Disposition: Home Clinical Impression: Costochondral junction syndrome DVT, recurrent, lower extremity, chronic Qualifiers: Laterality: left Qualified Code(s): I82.502 - Chronic embolism and thrombosis of unspecified deep veins of left lower extremity Condition: Stable Critical Care Time: Yes Critical Care Time(excluding separately billable procedures): Critical 75-104 mins ([id number] patient care) Referrals: WAQAR CASTRO [Primary Care Provider] -
[2019-05-14 00:26] VITALS: BP 113/74; PULSE 60
--- NOTE | 2019-05-14 08:47 | XRAY ---
Indication: Chest pain. Comparison: May 03, 2019. Portable chest demonstrates mild scattered fibrosis/scarring bilaterally. Numerous overlying monitoring leads/devices. No focal infiltrate, consolidation, or large effusion. Heart remains borderline enlarged again with left AICD and right Port-A-Cath. Impression: Nonacute chest with chronic features.
== END 2019-05-14 00:20 | disposition home or self-care (01) ==
LOC: ED 18:32
DX: M94.0 Chondrocostal junction syndrome [Tietze] (principal); I82.502 Chronic embolism and thrombosis of unspecified deep veins of left lower extremity; R07.89 Other chest pain; Z95.0 Presence of cardiac pacemaker; Z95.810 Presence of automatic (implantable) cardiac defibrillator; Z79.01 Long term (current) use of anticoagulants; Z79.899 Other long term (current) drug therapy; I50.9 Heart failure, unspecified; I25.10 Atherosclerotic heart disease of native coronary artery without angina pectoris; I10 Essential (primary) hypertension; E11.9 Type 2 diabetes mellitus without complications
CPT/HCPCS: 36000; 36415; 71045; 80053; 84484; 85025; 93005; 93041; 96374; 99284; 99291; 99292; J2270; Q0162

== ENCOUNTER 2019-05-24 10:40 | Emergency (ER) | payer MEDICARE ==
--- NOTE | 2019-05-24 10:47 | ERPHSYRPT ---
- History of Present Illness Time Seen by Provider: 05/24/19 10:47 Historian: patient, family Exam Limitations: no limitations Physician History: 63 y/o white female with sig cardiac hx on a life vest with ventricular pacemaker in place, presents with 3 to 4 day h/o chest pain described as intermittent sharp, central substernal with radiation through to her back. no soa. pt was sent to ED this am. her external life vest was telling her not delivering tx. pts pressure washer is dr. herman and her yet to be seen pilot plant technician/pressure washer is dr. montes de oca in [place]. pt took her eliquis today but did not take her asa Timing/Duration: day(s) (3 to 4) Activities at Onset: none Quality: sharpness, stabbing Location: substernal, central Chest Pain Radiation: back Severity of Pain-Max: moderate Severity of Pain-Current: moderate Modifying Factors: Improves With: nothing Associated Symptoms: denies symptoms Prior Chest Pain/Cardiac Workup: cardiac cath, heart attack, recently seen/ treated, recent hospitalization Nitro Today/Relief: no nitro taken today Aspirin Treatment Today: no aspirin today Allergies/Adverse Reactions: codeine [Codeine] Allergy (Mild, Verified 05/13/19 18:52) Nausea and Vomiting Sulfa (Sulfonamide Antibiotics) [Sulfa(Sulfonamide Antibiotics)] Allergy (Mild, Verified 05/13/19 18:52) Nausea and Vomiting adhesive Allergy (Verified 05/13/19 18:52) acetaminophen [From Percocet] Adverse Reaction (Verified 05/13/19 18:52) Vomiting oxycodone [From Percocet] Adverse Reaction (Verified 05/13/19 18:52) Vomiting Home Medications: Omeprazole [Prilosec] 40 mg PO DAILY 11/24/11 [History] Carvedilol 3.125 mg [Coreg 3.125 MG] 3.125 mg PO BID 06/08/15 [History] Apixaban [Eliquis] 5 mg PO BID 02/11/17 [History] Tizanidine HCl 4 mg PO BID PRN PRN 11/10/17 [History] Furosemide [Lasix] 10 mg PO DAILY PRN 03/09/18 [History] Promethazine HCl 25 mg [Phenergan 25 mg] 25 mg PO Q6H PRN PRN 01/14/19 [ History] Albuterol Common Canister [Proventil Common Canister] 2 puff IH Q6HPRN PRN 04/29/19 [History] Levothyroxine Sodium [Synthroid] 300 mcg PO BID 04/29/19 [History] Morphine Sulfate 30 mg PO DAILY PRN PRN 04/29/19 [History] Nitroglycerin 0.4 mg SL Q5MIN PRN MR X 3 PRN 04/29/19 [History] Ondansetron [Ondansetron Odt] 4 mg PO Q6HPRN PRN 04/29/19 [History] Aspirin [[place] Aspirin EC] 81 mg PO DAILY 05/13/19 [History] Hx Tetanus, Diphtheria Vaccination/Date Given: Yes Hx Influenza Vaccination/Date Given: Yes Hx Pneumococcal Vaccination/Date Given: Yes - Review of Systems Constitutional: No Symptoms Eyes: No Symptoms Ears, Nose, & Throat: No Symptoms Respiratory: No Symptoms Cardiac: Chest Pain Abdominal/Gastrointestinal: No Symptoms Genitourinary Symptoms: No Symptoms Musculoskeletal: No Symptoms Skin: No Symptoms Neurological: No Symptoms Psychological: No Symptoms Endocrine: No Symptoms Hematologic/Lymphatic: No Symptoms Immunological/Allergic: No Symptoms All Other Systems: Reviewed and Negative - Past Medical History Pertinent Past Medical History: Yes Neurological History: Stroke ENT History: No Pertinent History Cardiac History: Arrhythmia Respiratory History: No Pertinent History Endocrine Medical History: Hypothyroidism Musculoskeletal History: Arthritis, Degenerative Disk Disease GI Medical History: GERD, Hernia, Other History: Other Psycho-Social History: No Pertinent History Female Reproductive Disorders: Endometriosis Other Medical History: Hypotension. PACEMAKER implanted 10 years ago. - Past Surgical History Past Surgical History: Yes Neuro Surgical History: No Pertinent History Cardiac: Cardiac Catheterization, Internal Defibrillator, Pacemaker Respiratory: No Pertinent History Gastrointestinal: Appendectomy, Cholecystectomy, Colon Resection, Hernia Repair , Other Genitourinary: No Pertinent History Musculoskeletal: Orthopedic Surgery Female Surgical History: Hysterectomy Other Surgical History: THYROID REMOVED, 40% and 50% blockages found with last heart cath about 4 years ago. ankle surgery d/t break,ileostomy, CVL port removed and replaced, PICC line placed for CVL surgery September 2015. ostomy repair due to blockage 09/02, back surgery and 4 I&D september and october and november 2017. 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 TLIF fused discs in back. OCTOBER 2018 CAROTIDECTOMY AND LYMPH NODE REMOVAL ON RIGHT SIDE. Right Parotid gland removed. - Social History Smoking Status: Never smoker Exposure to second hand smoke: Yes Alcohol Use: None Drug Use: none Patient Lives Alone: No Significant Family History: heart disease, cancer, diabetes - Nursing Vital Signs Nursing Vital Signs: Initial Vital Signs Temperature 99.2 F 05/24/19 10:42 Pulse Rate 60 05/24/19 10:42 Respiratory Rate 20 05/24/19 10:42 Blood Pressure 117/78 05/24/19 10:42 O2 Sat by Pulse Oximetry 100 05/24/19 10:42 Pain Scale Pain Intensity 6 - Physical Exam General Appearance: mild distress, alert, anxiety Eye Exam: PERRL/EOMI, eyes nml inspection Ears, Nose, Throat Exam: normal ENT inspection, moist mucous membranes Neck Exam: normal inspection, non-tender, supple, full range of motion Respiratory Exam: normal breath sounds, chest tenderness, lungs clear, airway intact, No respiratory distress Cardiovascular Exam: regular rate/rhythm, normal heart sounds, normal peripheral pulses Gastrointestinal/Abdomen Exam: soft, normal bowel sounds, No tenderness Pelvic Exam: not done Rectal Exam: not done Back Exam: normal inspection, normal range of motion, No CVA tenderness, No vertebral tenderness Extremity Exam: normal inspection, normal range of motion, pelvis stable Neurologic Exam: alert, oriented x 3, cooperative, press pipe inspector II-XII nml as tested Skin Exam: normal color, warm, dry Lymphatic Exam: No adenopathy SpO2 Interpretation: normal O2 Delivery: Room Air - Course Nursing assessment & vital signs reviewed: Yes EKG Interpreted by Me: RATE (60), Other (pt with ventricular pacing. no changes from EKG dated 05/13/19) Ordered Tests: Active Orders 24 hr Category Date Time Status Operations Support Specialist STAT Care 05/24/19 10:49 Active EKG-ER Only STAT Care 05/24/19 10:49 Active IV Insertion STAT Care 05/24/19 10:49 Active CBC W DIFF Stat Lab 05/24/19 12:09 Completed CMP Stat Lab 05/24/19 12:09 Completed NT PRO BNP Stat Lab 05/24/19 12:09 Completed TROPONIN Q3H Lab 05/24/19 12:09 Completed TROPONIN Q3H Lab 05/24/19 13:39 Completed TROPONIN Q3H Lab 05/24/19 17:00 Ordered TROPONIN Q3H Lab 05/24/19 20:00 Ordered TROPONIN Q3H Lab 05/24/19 23:00 Ordered Medication Summary Discontinued Medications Generic Name Dose Route Start Last Admin Trade Name Brad PRN Reason Stop Dose Admin Aspirin 324 mg 05/24/19 11:05 05/24/19 11:42 Baby Aspirin 81 Mg Chew PO 05/24/19 11:06 324 mg STAT ONE Administration Aspirin Confirm 05/24/19 11:37 Baby Aspirin 81 Mg Chew Administered 05/24/19 11:38 Dose 324 mg .ROUTE .STK-MED ONE Morphine Sulfate 2 mg 05/24/19 11:05 05/24/19 11:41 Morphine Sulfate 2 Mg Inj IV 05/24/19 11:06 2 mg STAT ONE Administration Morphine Sulfate Confirm 05/24/19 11:38 Morphine Sulfate 2 Mg Inj Administered 05/24/19 11:39 Dose 2 mg .ROUTE .STK-MED ONE Lab/Rad Data: Laboratory Result Diagrams 05/24/19 12:09 05/24/19 12:09 Laboratory Results 05/24/19 05/24/19 05/24/19 Range/Units 13:39 12:09 12:09 WBC (4.0-10.5) K/mm3 RBC (4.1-5.4) M/mm3 Hgb (12.0-16.0) gm/dl Hct (35-47) % MCV (78-100) fl MCH (26-32) pg MCHC (32-36) g/dl RDW (11.5-14.0) % Plt Count (150-450) K/mm3 MPV (7.5-11.0) fl Gran % (36.0-66.0) % Eos # (Auto) (0-0.5) Absolute Lymphs (auto) (1.0-4.6) Absolute Monos (auto) (0.0-1.3) Lymphocytes % (24.0-44.0) % Monocytes % (0.0-12.0) % Eosinophils % (0.00-5.0) % Basophils % (0.0-0.4) % Absolute Granulocytes (1.4-6.9) Basophils # (0-0.4) Sodium 140 (137-145) mmol/L Potassium 4.1 (3.5-5.1) mmol/L Chloride 107 (98-107) mmol/L Carbon Dioxide 26 (22-30) mmol/L Anion Gap 12.2 (5-15) MEQ/L BUN 13 (7-17) mg/dL Creatinine 1.19 H (0.52-1.04) mg/dL Estimated GFR 48.9 ML/MIN Glucose 91 (74-106) mg/dL Calcium 9.9 (8.4-10.2) mg/dL Total Bilirubin 0.50 (0.2-1.3) mg/dL AST 28 (14-36) U/L ALT 9 (0-35) U/L Alkaline Phosphatase 128 H (38-126) U/L Troponin I < 0.012 < 0.012 (0.000-0.034) ng/mL NT-Pro-B Natriuret Pep 817 (0-900) pg/mL Serum Total Protein 8.7 H (6.3-8.2) g/dL Albumin 4.5 (3.5-5.0) g/dL 05/24/19 Range/Units 12:09 WBC 5.4 (4.0-10.5) K/mm3 RBC 4.18 (4.1-5.4) M/mm3 Hgb 12.1 (12.0-16.0) gm/dl Hct 38.6 (35-47) % MCV 92.3 (78-100) fl MCH 28.9 (26-32) pg MCHC 31.3 L (32-36) g/dl RDW 14.1 H (11.5-14.0) % Plt Count 233 (150-450) K/mm3 MPV 9.7 H (7.5-11.0) fl Gran % 59.9 (36.0-66.0) % Eos # (Auto) 0.11 (0-0.5) Absolute Lymphs (auto) 1.50 (1.0-4.6) Absolute Monos (auto) 0.51 (0.0-1.3) Lymphocytes % 27.9 (24.0-44.0) % Monocytes % 9.5 (0.0-12.0) % Eosinophils % 2.0 (0.00-5.0) % Basophils % 0.7 (0.0-0.4) % Absolute Granulocytes 3.22 (1.4-6.9) Basophils # 0.04 (0-0.4) Sodium (137-145) mmol/L Potassium (3.5-5.1) mmol/L Chloride (98-107) mmol/L Carbon Dioxide (22-30) mmol/L Anion Gap (5-15) MEQ/L BUN (7-17) mg/dL Creatinine (0.52-1.04) mg/dL Estimated GFR ML/MIN Glucose (74-106) mg/dL Calcium (8.4-10.2) mg/dL Total Bilirubin (0.2-1.3) mg/dL AST (14-36) U/L ALT (0-35) U/L Alkaline Phosphatase (38-126) U/L Troponin I (0.000-0.034) ng/mL NT-Pro-B Natriuret Pep (0-900) pg/mL Serum Total Protein (6.3-8.2) g/dL Albumin (3.5-5.0) g/dL - Progress Progress: improved Air Movement: good Progress Note: 05/24/19 14:[address] herman, pts pressure washer, he recommends inpt evaluation and interrogation of pts life vest unit. ok to keep pt here at [place]. dr. singleton , pts pcp does not feel comfortable keeping pt here at [place]. dr. herman stated he would accept pt in transfer if pcp not comfortable. dr. herman called to notify him of transfer to him. Discussed with : Jaki, Other (dr. herman) Counseled pt/family regarding: lab results, diagnosis - Departure Departure Disposition: Transfer Clinical Impression: Chest pain Condition: Stable Critical Care Time: Yes Referrals: WAQAR SINGLETON [Primary Care Provider] -
[2019-05-24] MEDS ORDERED: MORPHINE SULFATE 2 MG INJ IV ONE (11:05)
[2019-05-24] MEDS ORDERED: BABY ASPIRIN 81 MG CHEW PO ONE (11:05)
[2019-05-24] MEDS ORDERED: BABY ASPIRIN 81 MG CHEW ONE (11:37)
[2019-05-24] MEDS ORDERED: MORPHINE SULFATE 2 MG INJ ONE (11:38)
[2019-05-24 11:51] VITALS: PULSE 60
[2019-05-24 12:38] LABS: ALBUMIN 4.5 g/dL (3.5-5.0); ANION GAP 12.2 MEQ/L (5-15); BILIRUBIN,TOTAL 0.5 mg/dL (0.2-1.3); Calcium 9.9 mg/dL (8.4-10.2); Creatinine 1 1.19 mg/dL (0.52-1.04); Potassium 4.1 mmol/L (3.5-5.1); Total Protein 8.7 g/dL (6.3-8.2)
[2019-05-24 12:43] LABS: BASOPHIL % 0.7 % (0.0-0.4); Hematocrit 38.6 % (35-47); Hemoglobin 12.1 gm/dl (12.0-16.0); Lymphocytes % 27.9 % (24.0-44.0); Mean Cell Volume 92.3 fl (78-100); Mean Corpuscular Hemoglobin 28.9 pg (26-32); Mean Corpuscular Hgb Concent. 31.3 g/dl (32-36); Mean Platelet Volume 9.7 fl (7.5-11.0); Monocytes % 9.5 % (0.0-12.0); Neutrophil % 59.9 % (36.0-66.0); Platelet Count 233 K/mm3 (150-450); Red Blood Count 4.18 M/mm3 (4.1-5.4); Red Cell Distribution Width 14.1 % (11.5-14.0); White Blood Count 5.4 K/mm3 (4.0-10.5)
[2019-05-24 12:44] LABS: Absolute Neutrophil Ct (ANC) 3.22 (1.4-6.9); Basophil (Absolute #) 0.04 (0-0.4); Eosinophil (Absolute #) 0.11 (0-0.5); Monocyte (Absolute #) 0.51 (0.0-1.3)
[2019-05-24 14:38] VITALS: O2SAT 100
[2019-05-24 15:29] VITALS: BP 117/70
== END 2019-05-24 16:11 | disposition short-term general hospital (02) ==
LOC: ED 10:40
DX: R07.89 Other chest pain (principal); Z95.0 Presence of cardiac pacemaker; Z79.899 Other long term (current) drug therapy; E03.9 Hypothyroidism, unspecified; Z95.1 Presence of aortocoronary bypass graft
CPT/HCPCS: 36000; 36415; 80053; 83880; 84484; 85025; 93005; 93041; 96374; 99285; J2270; A9270-GY

== ENCOUNTER 2019-07-12 20:47 | Emergency (ER) | payer MEDICARE ==
--- NOTE | 2019-07-12 21:28 | ERPHSYRPT ---
- History of Present Illness Time Seen by Provider: 07/12/19 21:12 Source: patient Exam Limitations: no limitations Patient Subjective Stated Complaint: Patient presents to our ED with complaints of numbness and tingling weakness to her left lower extremity below her knee. Physician History: Patient is a 64-year-old female presents to our ED with complaints of weakness numbness going of the left lower extremity below the knee. Symptoms started approximately 8 PM. Patient had similar symptoms in the past and was diagnosed with a stroke. Patient is currently on Eliquis. Patient states she is unable to lift her left leg or extend her left knee. Patient unable to ambulate. Symptoms are constant. Symptoms are mild to moderate intensity. No specific worsening or improving factors. at bedside. voices that patient had pacemaker revised in May. Patient had a port placed approximately 2 weeks ago. Patient has a history of DVT. Hence patient is anticoagulated. Patient denies head trauma. No nausea or vomiting. No diarrhea. No other neurological complaints. No upper extremity numbness tingling or weakness. Patient's right lower extremity is within normal limits according the patient. Timing/Duration: today Severity: moderate Character of Deficits: none, LLE Deficits: cannot stand, cannot walk, weak Baseline/Normal Cognition: alert oriented x 3, alert but confused Current Cognition: alert oriented x 3, alert but confused Baseline Gait: walks w/o assistance Associated Symptoms: numbness/tingling in legs/feet, No confusion, No fatigue, No fever, No chills, No loss of consciousness, No nausea, No vomiting, No weakness, No insomnia, No muscle spasms, No chest pain Allergies/Adverse Reactions: codeine [Codeine] Allergy (Mild, Verified 05/13/19 18:52) Nausea and Vomiting Sulfa (Sulfonamide Antibiotics) [Sulfa(Sulfonamide Antibiotics)] Allergy (Mild, Verified 05/13/19 18:52) Nausea and Vomiting adhesive Allergy (Verified 05/13/19 18:52) acetaminophen [From Percocet] Adverse Reaction (Verified 05/13/19 18:52) Vomiting oxycodone [From Percocet] Adverse Reaction (Verified 05/13/19 18:52) Vomiting Home Medications: Omeprazole [Prilosec] 40 mg PO DAILY 11/24/11 [History] Carvedilol 3.125 mg [Coreg 3.125 MG] 3.125 mg PO BID 06/08/15 [History] Apixaban [Eliquis] 5 mg PO BID 02/11/17 [History] Tizanidine HCl 4 mg PO BID PRN PRN 11/10/17 [History] Furosemide [Lasix] 10 mg PO DAILY PRN 03/09/18 [History] Promethazine HCl 25 mg [Phenergan 25 mg] 25 mg PO Q6H PRN PRN 01/14/19 [ History] Albuterol Common Canister [Ventolin Common Canister] 2 puff IH Q6HPRN PRN 04/29/19 [History] Levothyroxine Sodium [Synthroid] 300 mcg PO BID 04/29/19 [History] Morphine Sulfate 30 mg PO DAILY PRN PRN 04/29/19 [History] Nitroglycerin 0.4 mg SL Q5MIN PRN MR X 3 PRN 04/29/19 [History] Ondansetron [Ondansetron Odt] 4 mg PO Q6HPRN PRN 04/29/19 [History] Aspirin [[place] Aspirin EC] 81 mg PO DAILY 05/13/19 [History] Hx Tetanus, Diphtheria Vaccination/Date Given: Yes Hx Influenza Vaccination/Date Given: Yes Hx Pneumococcal Vaccination/Date Given: Yes - Review of Systems Constitutional: No Fever, No Chills Eyes: No Symptoms Ears, Nose, & Throat: No Symptoms Respiratory: No Symptoms, No Cough, No Dyspnea Cardiac: No Symptoms, No Chest Pain, No Edema, No Syncope Abdominal/Gastrointestinal: No Symptoms, No Abdominal Pain, No Nausea, No Vomiting, No Diarrhea Genitourinary Symptoms: No Symptoms, No Dysuria Musculoskeletal: No Arthralgias, No Back Pain, No Neck Pain Skin: No Symptoms, No Rash Neurological: Focal Weakness, Headache, No Dizziness, No Sensory Changes Psychological: No Symptoms Endocrine: No Symptoms Hematologic/Lymphatic: No Symptoms Immunological/Allergic: No Symptoms All Other Systems: Reviewed and Negative - Past Medical History Pertinent Past Medical History: Yes Neurological History: Stroke ENT History: No Pertinent History Cardiac History: Arrhythmia Respiratory History: No Pertinent History Endocrine Medical History: Hypothyroidism Musculoskeletal History: Arthritis, Degenerative Disk Disease GI Medical History: GERD, Hernia, Other History: Other Psycho-Social History: No Pertinent History Female Reproductive Disorders: Endometriosis Other Medical History: Hypotension. PACEMAKER implanted 10 years ago. - Past Surgical History Past Surgical History: Yes Neuro Surgical History: No Pertinent History Cardiac: Cardiac Catheterization, Internal Defibrillator, Pacemaker Respiratory: No Pertinent History Gastrointestinal: Appendectomy, Cholecystectomy, Colon Resection, Hernia Repair , Other Genitourinary: No Pertinent History Musculoskeletal: Orthopedic Surgery Female Surgical History: Hysterectomy Other Surgical History: THYROID REMOVED, 40% and 50% blockages found with last heart cath about 4 years ago. ankle surgery d/t break,ileostomy, CVL port removed and replaced, PICC line placed for CVL surgery September 2015. ostomy repair due to blockage 09/02, back surgery and 4 I&D september and october and november 2017. 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 TLIF fused discs in back. OCTOBER 2018 CAROTIDECTOMY AND LYMPH NODE REMOVAL ON RIGHT SIDE. Right Parotid gland removed. - Social History Smoking Status: Never smoker Exposure to second hand smoke: Yes Alcohol Use: None Drug Use: none Patient Lives Alone: No Significant Family History: heart disease, cancer, diabetes - Nursing Vital Signs Nursing Vital Signs: Initial Vital Signs Temperature 97.3 F 07/12/19 20:56 Pulse Rate 77 07/12/19 20:56 Respiratory Rate 15 07/12/19 20:56 Blood Pressure 119/76 07/12/19 20:56 Pain Scale Pain Intensity 8 - Jaycee Coma Scale Best Eye Response (Jaycee): (4) open spontaneously Best Verbal Response (Jaycee): (5) oriented Best Motor Response ([place]): (6) obeys commands Jaycee Total: 15 - Physical Exam General Appearance: no apparent distress, alert Eye Exam: bilateral eye: normal inspection, PERRL, EOMI Ears, Nose, Throat Exam: normal ENT inspection, moist mucous membranes Neck Exam: normal inspection, non-tender, supple Respiratory: normal breath sounds, lungs clear, airway intact, No respiratory distress Cardiovascular: regular rate/rhythm, No edema Gastrointestinal: soft, No tenderness, No distention Back Exam: normal inspection Extremity Exam: normal inspection, other (Weakness of the left knee extensor. 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 Exam: normal hearing, normal speech, PERRL, tongue midline, No abnormal eye position, No abnormal gag reflex, No abnormal pupil position, No abnormal speech , No facial asymmetry, No facial droop, No facial paresthesias, No gaze palsy, No hearing deficit (R), No hearing deficit (L), No tongue deviation to R Coordination/Gait: normal finger to nose, normal gait Motor/Sensory: no pronator drift, negative Babinski's sign, positive Babinski's sign, pronator drift (R), weak motor strength LLE, No no motor deficit, No no sensory deficit DTR: knee (R): 0, knee (L): 0 (Unable to elicit DTR at either right or left patellar tendon.) Skin Exam: normal color, warm, dry, No rash SpO2 Interpretation: normal SpO2: 97 O2 Delivery: Room Air - CT Exams Head CT Interpretation: Negative (None acute senile brain including old small B/L infarcts no new acute findings.) Ordered Tests: Active Orders 24 hr Category Date Time Status Manager Agency STAT Care 07/12/19 21:16 Active EKG-ER Only STAT Care 07/12/19 21:46 Active IV Insertion STAT Care 07/12/19 21:15 Active NPO (ED) STAT Care 07/12/19 21:15 Active Pulse Oximetry (ED) STAT Care 07/12/19 21:15 Active CHEST 1 VIEW (PORTABLE) Stat Exams 07/12/19 21:16 Taken HEAD WITHOUT CONTRAST [CT] Stat Exams 07/12/19 21:16 Taken CBC W DIFF Stat Lab 07/12/19 21:30 Completed CMP Stat Lab 07/12/19 21:30 Completed Lactic Acid Stat Lab 07/12/19 21:35 Completed Lactic Acid Stat Lab 07/12/19 23:43 Received PROTIME WITH INR Stat Lab 07/12/19 21:30 Completed PTT Stat Lab 07/12/19 21:30 Completed TROPONIN Q3H Lab 07/12/19 21:30 Completed TROPONIN Q3H Lab 07/13/19 00:30 Ordered TROPONIN Q3H Lab 07/13/19 03:30 Ordered TROPONIN Q3H Lab 07/13/19 06:30 Ordered TROPONIN Q3H Lab 07/13/19 09:30 Ordered UA W/RFX UR CULTURE Stat Lab 07/12/19 21:16 Uncollected Medication Summary Discontinued Medications Generic Name Dose Route Start Last Admin Trade Name Freq PRN Reason Stop Dose Admin Acetaminophen 975 mg 07/12/19 23:13 07/12/19 23:18 Tylenol 325 Mg PO 07/12/19 23:14 975 mg STAT ONE Administration Acetaminophen Confirm 07/12/19 23:16 Tylenol 325 Mg Administered 07/12/19 23:17 Dose 975 mg .ROUTE .STK-MED ONE Morphine Sulfate 4 mg 07/12/19 23:24 07/12/19 23:30 Morphine Sulfate 4 Mg Inj IV 07/12/19 23:25 4 mg STAT ONE Administration Morphine Sulfate Confirm 07/12/19 23:29 Morphine Sulfate 4 Mg Inj Administered 07/12/19 23:30 Dose 4 mg .ROUTE .STK-MED ONE Ondansetron HCl 4 mg 07/12/19 23:14 07/12/19 23:18 Zofran 4 Mg/2 Ml Vial IV 07/12/19 23:15 4 mg STAT ONE Administration Ondansetron HCl Confirm 07/12/19 23:16 Zofran 4 Mg/2 Ml Vial Administered 07/12/19 23:17 Dose 4 mg .ROUTE .STK-MED ONE Lab/Rad Data: Laboratory Result Diagrams 07/12/19 21:30 07/12/19 21:30 Laboratory Results 07/12/19 07/12/19 07/12/19 Range/Units 21:35 21:30 21:30 WBC (4.0-10.5) K/mm3 RBC (4.1-5.4) M/mm3 Hgb (12.0-16.0) gm/dl Hct (35-47) % MCV (78-100) fl MCH (26-32) pg MCHC (32-36) g/dl RDW (11.5-14.0) % Plt Count (150-450) K/mm3 MPV (7.5-11.0) fl Gran % (36.0-66.0) % Eos # (Auto) (0-0.5) Absolute Lymphs (auto) (1.0-4.6) Absolute Monos (auto) (0.0-1.3) Lymphocytes % (24.0-44.0) % Monocytes % (0.0-12.0) % Eosinophils % (0.00-5.0) % Basophils % (0.0-0.4) % Absolute Granulocytes (1.4-6.9) Basophils # (0-0.4) PT 11.3 (9.95-12.35) SECONDS INR 1.00 (0.8-3.0) APTT 24.3 L (25.3-37.0) SECONDS Sodium (137-145) mmol/L Potassium (3.5-5.1) mmol/L Chloride (98-107) mmol/L Carbon Dioxide (22-30) mmol/L Anion Gap (5-15) MEQ/L BUN (7-17) mg/dL Creatinine (0.52-1.04) mg/dL Estimated GFR ML/MIN Glucose (74-106) mg/dL Lactic Acid 2.3 H (0.4-2.0) Calcium (8.4-10.2) mg/dL Total Bilirubin (0.2-1.3) mg/dL AST (14-36) U/L ALT (0-35) U/L Alkaline Phosphatase (38-126) U/L Troponin I < 0.012 (0.000-0.034) ng/mL Serum Total Protein (6.3-8.2) g/dL Albumin (3.5-5.0) g/dL 07/12/19 07/12/19 Range/Units 21:30 21:30 WBC 7.1 (4.0-10.5) K/mm3 RBC 3.92 L (4.1-5.4) M/mm3 Hgb 11.0 L (12.0-16.0) gm/dl Hct 34.5 L (35-47) % MCV 88.0 (78-100) fl MCH 28.1 (26-32) pg MCHC 31.9 L (32-36) g/dl RDW 14.3 H (11.5-14.0) % Plt Count 282 (150-450) K/mm3 MPV 9.0 (7.5-11.0) fl Gran % 83.3 H (36.0-66.0) % Eos # (Auto) 0 (0-0.5) Absolute Lymphs (auto) 0.99 L (1.0-4.6) Absolute Monos (auto) 0.19 (0.0-1.3) Lymphocytes % 13.9 L (24.0-44.0) % Monocytes % 2.7 (0.0-12.0) % Eosinophils % 0.0 (0.00-5.0) % Basophils % 0.1 (0.0-0.4) % Absolute Granulocytes 5.93 (1.4-6.9) Basophils # 0.01 (0-0.4) PT (9.95-12.35) SECONDS INR (0.8-3.0) APTT (25.3-37.0) SECONDS Sodium 138 (137-145) mmol/L Potassium 4.3 (3.5-5.1) mmol/L Chloride 108 H (98-107) mmol/L Carbon Dioxide 22 (22-30) mmol/L Anion Gap 12.5 (5-15) MEQ/L BUN 25 H (7-17) mg/dL Creatinine 1.25 H (0.52-1.04) mg/dL Estimated GFR 46.0 ML/MIN Glucose 116 H (74-106) mg/dL Lactic Acid (0.4-2.0) Calcium 9.5 (8.4-10.2) mg/dL Total Bilirubin 0.50 (0.2-1.3) mg/dL AST 24 (14-36) U/L ALT 11 (0-35) U/L Alkaline Phosphatase 128 H (38-126) U/L Troponin I (0.000-0.034) ng/mL Serum Total Protein 8.2 (6.3-8.2) g/dL Albumin 4.3 (3.5-5.0) g/dL - Progress Progress: improved Progress Note: 07/13/19 00:18 Patient was evaluated by tele-stroke. They recommended CTA of head and neck. Due to poor renal function radiology department declined the procedure. Patient is not a candidate for TPA as she is currently on Eliquis. Case discussed with Dr. Young who accepts transfer to [facility]. Plan of care discussed with patient. She agrees to transfer to [facility] for further evaluation and treatment. Discussed with : Other (Hector) Will see patient in: other Counseled pt/family regarding: lab results, diagnosis, rad results - Departure Departure Disposition: Transfer Clinical Impression: Leg weakness, Foot drop, left, Stroke Condition: Stable Critical Care Time: Yes Critical Care Time(excluding separately billable procedures): Critical 75-104 mins Referrals: WAQAR CASTRO [Primary Care Provider] -
[2019-07-12 21:36] LABS: Absolute Neutrophil Ct (ANC) 5.93 (1.4-6.9); BASOPHIL % 0.1 % (0.0-0.4); Basophil (Absolute #) 0.01 (0-0.4); Eosinophil (Absolute #) 0 (0-0.5); Hematocrit 34.5 % (35-47); Lymphocyte (Absolute #) 0.99 (1.0-4.6); Lymphocytes % 13.9 % (24.0-44.0); Mean Corpuscular Hemoglobin 28.1 pg (26-32); Mean Corpuscular Hgb Concent. 31.9 g/dl (32-36); Monocyte (Absolute #) 0.19 (0.0-1.3); Monocytes % 2.7 % (0.0-12.0); Neutrophil % 83.3 % (36.0-66.0); Platelet Count 282 K/mm3 (150-450); Red Blood Count 3.92 M/mm3 (4.1-5.4); Red Cell Distribution Width 14.3 % (11.5-14.0); White Blood Count 7.1 K/mm3 (4.0-10.5)
[2019-07-12 21:53] LABS: PTT 24.3 SECONDS (25.3-37.0)
[2019-07-12 21:54] LABS: ALBUMIN 4.3 g/dL (3.5-5.0); ANION GAP 12.5 MEQ/L (5-15); BILIRUBIN,TOTAL 0.5 mg/dL (0.2-1.3); Calcium 9.5 mg/dL (8.4-10.2); Creatinine 1 1.25 mg/dL (0.52-1.04); Potassium 4.3 mmol/L (3.5-5.1); Total Protein 8.2 g/dL (6.3-8.2)
[2019-07-12 22:01] LABS: PROTIME 11.3 SECONDS (9.95-12.35)
[2019-07-12] MEDS ORDERED: Zofran 4 MG/2 ML VIAL ONE (23:16)
[2019-07-12] MEDS ORDERED: TYLENOL 325 MG ONE (23:16)
[2019-07-12] MEDS: Zofran 4 MG/2 ML VIAL IV ONE (23:18)
[2019-07-12] MEDS: TYLENOL 325 MG PO ONE (23:18)
[2019-07-12] MEDS ORDERED: MORPHINE SULFATE 4 MG INJ ONE (23:29)
[2019-07-12] MEDS: MORPHINE SULFATE 4 MG INJ IV ONE (23:30)
[2019-07-13 01:42] VITALS: BP 118/75; PULSE 67; O2SAT 98
--- NOTE | 2019-07-13 08:41 | XRAY ---
Indication: Left lower extremity weakness. Multiple contiguous axial images obtained through the head without contrast. Comparison: April 29, 2019. Stable age-appropriate global atrophy, moderate periventricular degenerative micro-ischemia bilaterally, old left posterior parietal infarct, and old right occipital lobe infarct. No acute intracranial hemorrhage, abnormal extra-axial fluid collection, or mass effect. Fourth ventricle is midline without hydrocephalus. Bony calvarium intact. Visualized paranasal sinuses and mastoid air cells are clear. Impression: 1. Stable nonacute senile brain with again old bilateral infarcts as detailed. 2. Follow-up CT or MRI may yield further information if there remains further clinical concern.
--- NOTE | 2019-07-13 08:57 | XRAY ---
Indication: Stroke. Comparison: June 24, 2019. Portable chest remains clear. Heart remains borderline enlarged again with left AICD and right Port-A-Cath. No new/acute findings.
== END 2019-07-13 01:15 | disposition short-term general hospital (02) ==
LOC: ED 20:47
DX: Z86.73 Personal history of transient ischemic attack (TIA), and cerebral infarction without residual deficits (principal); Z79.01 Long term (current) use of anticoagulants; Z86.718 Personal history of other venous thrombosis and embolism; Z79.899 Other long term (current) drug therapy; Z95.0 Presence of cardiac pacemaker
CPT/HCPCS: 36000; 36415; 70450; 71045; 80053; 83605; 84484; 85025; 85610; 85730; 93005; 93041; 94760; 96374; 96375; 99285; 99291; 99292; J2270; J2405; A9270-GY

== ENCOUNTER 2019-09-02 15:58 | Inpatient (IN) | payer MEDICARE ==
[2019-09-02] MEDS ORDERED: Sodium Chloride 0.9% 1000 ML 1,000 ML IV SCH (16:15)
[2019-09-02] MEDS ORDERED: TORAdol 30 mg Injection ONE (16:15)
[2019-09-02] MEDS ORDERED: TORAdol 30 mg Injection IV ONE (16:31)
[2019-09-02 16:41] LABS: Absolute Neutrophil Ct (ANC) 4.35 (1.4-6.9); BASOPHIL % 0.7 % (0.0-0.4); Basophil (Absolute #) 0.05 (0-0.4); Eosinophil % 1.4 % (0.00-5.0); Hematocrit 40.9 % (35-47); Hemoglobin 12.9 gm/dl (12.0-16.0); Lymphocyte (Absolute #) 2.03 (1.0-4.6); Lymphocytes % 29.3 % (24.0-44.0); Mean Cell Volume 84.9 fl (78-100); Mean Corpuscular Hemoglobin 26.8 pg (26-32); Mean Corpuscular Hgb Concent. 31.5 g/dl (32-36); Mean Platelet Volume 9.1 fl (7.5-11.0); Monocytes % 5.8 % (0.0-12.0); Neutrophil % 62.8 % (36.0-66.0); Platelet Count 316 K/mm3 (150-450); Red Blood Count 4.82 M/mm3 (4.1-5.4); Red Cell Distribution Width 15.6 % (11.5-14.0); White Blood Count 6.9 K/mm3 (4.0-10.5)
[2019-09-02 16:51] LABS: INR 0.96 (0.8-3.0); PROTIME 10.8 SECONDS (9.95-12.35)
--- NOTE | 2019-09-02 16:51 | XRAY ---
Indication: Short of breath. Comparison: Jul 12, 2019. Portable chest remains inflated and clear. Heart is not enlarged again with left-sided AICD. Previous right Port-A-Cath now coiled projecting over right lung base with tip no longer in SVC. Bony thorax intact again with mild osteopenia and degenerative changes. Impression: Nonacute chest with chronic features.
[2019-09-02 17:04] LABS: ALBUMIN 4.8 g/dL (3.5-5.0); ANION GAP 14.5 MEQ/L (5-15); BILIRUBIN,TOTAL 0.6 mg/dL (0.2-1.3); Creatinine 1 1.16 mg/dL (0.52-1.04); MAGNESIUM 1.9 mg/dL (1.6-2.3); Potassium 3.6 mmol/L (3.5-5.1); Total Protein 9.4 g/dL (6.3-8.2)
[2019-09-02 18:20] LABS: Appearance SLIGHTLY CLOUDY (CLEAR); Bilirubin NEGATIVE (NEGATIVE); Blood NEGATIVE Ery/ul (0-5); Glucose NEGATIVE (NEGATIVE); Ketones NEGATIVE (NEGATIVE); Leukocyte Esterase MODERATE (NEGATIVE); Mucus SLIGHT /HPF (NEGATIVE); Nitrite NEGATIVE (NEGATIVE); Protein,Urine Dip NEGATIVE (Negative); Specific Gravity 1.026 (1.005-1.025); Urobilinogen 2 mg/dL (0-1); WBC 51-100 /HPF (0-5)
[2019-09-02] MEDS ORDERED: Sodium Chloride 0.9% 1000 ML 1,000 ML ONE (19:11)
[2019-09-02] MEDS ORDERED: SUBLIMAZE 100 MCG/2 ML IV ONE (19:32)
[2019-09-02] MEDS ORDERED: SUBLIMAZE 100 MCG/2 ML ONE (20:18)
--- NOTE | 2019-09-02 20:31 | ERPHSYRPT ---
- History of Present Illness Time Seen by Provider: 09/02/19 16:26 Historian: patient Exam Limitations: no limitations Patient Subjective Stated Complaint: pt here for increase sob for a week now, worse today, she was seen at the resp clinic yesterday, no rx given, she also co chest pain on and off, mucsle aches, no fever today, Triage Nursing Assessment: pt alert, resp easy, skin w/d/p. resp shallow, chest clear, edema to lower legs that is normal for pt Physician History: patient is a 64-year-old female with a long-standing history of recurrent PE and DVT who is on chronic anticoagulation he presents with a complaint of being short of breath for one week getting worse. She also complains of some sharp pleuritic type chest pain. She was seen there is respiratory clinic yesterday and was advised to return if she got worse she was not given any treatment. Timing/Duration: week(s) (1) Activities at Onset: none Quality: sharpness, stabbing Location: substernal Chest Pain Radiation: no radiation Severity of Pain-Max: moderate Severity of Pain-Current: moderate Modifying Factors: Improves With: nothing Associated Symptoms: shortness of breath, hurts to breathe, weakness Prior Chest Pain/Cardiac Workup: pulmonary embolism Nitro Today/Relief: no nitro taken today Aspirin Treatment Today: no aspirin today ( good a) Allergies/Adverse Reactions: codeine [Codeine] Allergy (Mild, Verified 09/02/19 16:41) Nausea and Vomiting Sulfa (Sulfonamide Antibiotics) [Sulfa(Sulfonamide Antibiotics)] Allergy (Mild, Verified 09/02/19 16:41) Nausea and Vomiting adhesive Allergy (Verified 09/02/19 16:41) acetaminophen [From Percocet] Adverse Reaction (Verified 09/02/19 16:41) Vomiting oxycodone [From Percocet] Adverse Reaction (Verified 09/02/19 16:41) Vomiting Home Medications: Omeprazole [Prilosec] 40 mg PO DAILY 11/24/11 [History] Carvedilol 3.125 mg [Coreg 3.125 MG] 3.125 mg PO BID 06/08/15 [History] Apixaban [Eliquis] 5 mg PO BID 02/11/17 [History] Tizanidine HCl 4 mg PO BID PRN PRN 11/10/17 [History] Furosemide [Lasix] 10 mg PO DAILY PRN 03/09/18 [History] Promethazine HCl 25 mg [Phenergan 25 mg] 25 mg PO Q6H PRN PRN 01/14/19 [ History] Albuterol Common Canister [Ventolin Common Canister] 2 puff IH Q6HPRN PRN 04/29/19 [History] Levothyroxine Sodium [Synthroid] 300 mcg PO BID 04/29/19 [History] Morphine Sulfate 30 mg PO DAILY PRN PRN 04/29/19 [History] Nitroglycerin 0.4 mg SL Q5MIN PRN MR X 3 PRN 04/29/19 [History] Ondansetron [Ondansetron Odt] 4 mg PO Q6HPRN PRN 04/29/19 [History] Aspirin [[place] Aspirin EC] 81 mg PO DAILY 05/13/19 [History] Hx Tetanus, Diphtheria Vaccination/Date Given: Yes Hx Influenza Vaccination/Date Given: Yes Hx Pneumococcal Vaccination/Date Given: Yes Immunizations Up to Date: Yes Travel Risk - International Travel Have you traveled outside of the country in past 3 weeks: No Have you or anyone close to you been diagnosed with or: No Do your reside in a community with a known COVID-19 case?: Yes If Yes where:: [place] - Coronavirus Screening Has patient experienced Coronavirus symptoms: Yes Symptoms experienced: respiratory symptoms (i.e.Cought,shortness of breath), muscle pain - Review of Systems Constitutional: No Fever, No Chills Eyes: No Symptoms Ears, Nose, & Throat: No Symptoms Respiratory: Dyspnea, Dyspnea on Exertion (TEJEDA), No Cough Cardiac: Chest Pain, No Edema, No Syncope Abdominal/Gastrointestinal: No Abdominal Pain, No Nausea, No Vomiting, No Diarrhea Genitourinary Symptoms: No Dysuria Musculoskeletal: No Back Pain, No Neck Pain Skin: No Rash Neurological: No Dizziness, No Focal Weakness, No Sensory Changes Psychological: No Symptoms Endocrine: No Symptoms All Other Systems: Reviewed and Negative - Past Medical History Pertinent Past Medical History: Yes Neurological History: Stroke ENT History: No Pertinent History Cardiac History: Arrhythmia Respiratory History: No Pertinent History Endocrine Medical History: Hypothyroidism Musculoskeletal History: Arthritis, Degenerative Disk Disease GI Medical History: GERD, Hernia, Other History: Other Psycho-Social History: No Pertinent History Female Reproductive Disorders: Endometriosis Other Medical History: Hypotension. PACEMAKER implanted 10 years ago. - Past Surgical History Past Surgical History: Yes Neuro Surgical History: No Pertinent History Cardiac: Cardiac Catheterization, Internal Defibrillator, Pacemaker Respiratory: No Pertinent History Gastrointestinal: Appendectomy, Cholecystectomy, Colon Resection, Hernia Repair , Other Genitourinary: No Pertinent History Musculoskeletal: Orthopedic Surgery Female Surgical History: Hysterectomy Other Surgical History: THYROID REMOVED, 40% and 50% blockages found with last heart cath about 4 years ago. ankle surgery d/t break,ileostomy, CVL port removed and replaced, PICC line placed for CVL surgery September 2015. ostomy repair due to blockage 09/02, back surgery and 4 I&D september and october and november 2017. 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 TLIF fused discs in back. OCTOBER 2018 CAROTIDECTOMY AND LYMPH NODE REMOVAL ON RIGHT SIDE. Right Parotid gland removed. - Social History Smoking Status: Never smoker Exposure to second hand smoke: Yes Alcohol Use: None Drug Use: none Patient Lives Alone: No Significant Family History: heart disease, cancer, diabetes - Female History Hx Last Menstrual Period: post Hx Now: No - Nursing Vital Signs Nursing Vital Signs: Initial Vital Signs Pulse Rate 89 09/02/19 16:10 Respiratory Rate 19 09/02/19 16:10 Blood Pressure 112/82 09/02/19 16:10 O2 Sat by Pulse Oximetry 100 09/02/19 16:10 Pain Scale Pain Intensity 6 - Physical Exam General Appearance: mild distress, alert Eye Exam: PERRL/EOMI, eyes nml inspection Ears, Nose, Throat Exam: normal ENT inspection, moist mucous membranes Neck Exam: normal inspection, non-tender, supple, full range of motion Respiratory Exam: normal breath sounds, lungs clear, No respiratory distress Cardiovascular Exam: regular rate/rhythm, normal heart sounds Gastrointestinal/Abdomen Exam: soft, No tenderness, No mass Back Exam: normal inspection, No CVA tenderness, No vertebral tenderness Extremity Exam: normal inspection, normal range of motion Neurologic Exam: alert, oriented x 3, cooperative, normal mood/affect, sensation nml, No motor deficits Skin Exam: normal color, warm, dry Lymphatic Exam: No adenopathy SpO2 Interpretation: normal SpO2: 96 O2 Delivery: Room Air - Course Nursing assessment & vital signs reviewed: Yes EKG Interpreted by Me: RATE (87), Other (paced rhythm) - Radiology Exams Chest X-ray Interpretation: Other (chest x-ray shows displacement of the port in the right hemithorax pacemaker noted no infiltrates appreciated) - CT Exams Chest CT Interpretation: Negative ( CT of the chest with contrast showed no evidence of pulmonary emboli only scarring and fibrosis and both bases) Ordered Tests: Active Orders 24 hr Category Date Time Status Isolation, Initiate & Maintain Q4H Care 09/02/19 16:40 Active CHEST 1 VIEW (PORTABLE) Stat Exams 09/02/19 16:15 Completed CHEST WITH CONTRAST [CT] Stat Exams 09/02/19 17:41 Taken AMYLASE Stat Lab 09/02/19 16:38 Completed CBC W DIFF Stat Lab 09/02/19 16:38 Completed CMP Stat Lab 09/02/19 16:38 Completed CULTURE,URINE Stat Lab 09/02/19 17:45 Received D-DIMER QUANTITATIVE Stat Lab 09/02/19 16:38 Completed Ferritin Stat Lab 09/02/19 16:38 Completed LDH-LACTATE DEHYDROGENASE Stat Lab 09/02/19 16:38 Completed LIPASE Stat Lab 09/02/19 16:38 Completed Lactic Acid Stat Lab 09/02/19 16:28 Completed MAGNESIUM Stat Lab 09/02/19 16:38 Completed NT PRO BNP Stat Lab 09/02/19 16:38 Completed PROTIME WITH INR Stat Lab 09/02/19 16:38 Completed TROPONIN Q3H Lab 09/02/19 16:38 Completed TROPONIN Q3H Lab 09/02/19 19:15 Ordered TROPONIN Q3H Lab 09/02/19 22:15 Ordered TROPONIN Q3H Lab 09/03/19 01:15 Ordered TROPONIN Q3H Lab 09/03/19 04:15 Ordered UA W/RFX UR CULTURE Stat Lab 09/02/19 17:45 Completed Medication Summary Generic Name Dose Route Start Last Admin Trade Name Freq PRN Reason Stop Dose Admin Sodium Chloride 1,000 mls @ 100 mls/hr 09/02/19 16:15 Sodium Chloride 0.9% 1000 Ml IV 10/02/19 16:14 .Q10H JUSTIN Discontinued Medications Generic Name Dose Route Start Last Admin Trade Name Freq PRN Reason Stop Dose Admin Fentanyl Citrate 100 mcg 09/02/19 19:32 Sublimaze 100 Mcg/2 Ml IV 09/02/19 19:33 STAT ONE Fentanyl Citrate Confirm 09/02/19 20:18 Sublimaze 100 Mcg/2 Ml Administered 09/02/19 20:19 Dose 100 mcg .ROUTE .STK-MED ONE Ketorolac Tromethamine Confirm 09/02/19 16:15 Toradol 30 Mg Injection Administered 09/02/19 16:16 Dose 30 mg .ROUTE .STK-MED ONE Ketorolac Tromethamine 30 mg 09/02/19 16:31 09/02/19 16:33 Toradol 30 Mg Injection IV 09/02/19 16:32 30 mg STAT ONE Administration Lab/Rad Data: Laboratory Result Diagrams 09/02/19 16:38 09/02/19 16:38 Laboratory Results 09/02/19 09/02/19 09/02/19 Range/Units 17:45 16:38 16:38 WBC (4.0-10.5) K/mm3 RBC (4.1-5.4) M/mm3 Hgb (12.0-16.0) gm/dl Hct (35-47) % MCV (78-100) fl MCH (26-32) pg MCHC (32-36) g/dl RDW (11.5-14.0) % Plt Count (150-450) K/mm3 MPV (7.5-11.0) fl Gran % (36.0-66.0) % Eos # (Auto) (0-0.5) Absolute Lymphs (auto) (1.0-4.6) Absolute Monos (auto) (0.0-1.3) Lymphocytes % (24.0-44.0) % Monocytes % (0.0-12.0) % Eosinophils % (0.00-5.0) % Basophils % (0.0-0.4) % Absolute Granulocytes (1.4-6.9) Basophils # (0-0.4) PT (9.95-12.35) SECONDS INR (0.8-3.0) D-Dimer (215-500) ng/mL Sodium (137-145) mmol/L Potassium (3.5-5.1) mmol/L Chloride (98-107) mmol/L Carbon Dioxide (22-30) mmol/L Anion Gap (5-15) MEQ/L BUN (7-17) mg/dL Creatinine (0.52-1.04) mg/dL Estimated GFR ML/MIN Glucose (74-106) mg/dL Lactic Acid (0.4-2.0) Calcium (8.4-10.2) mg/dL Magnesium (1.6-2.3) mg/dL Ferritin 10.0 L (11.1-264) ng/mL Total Bilirubin (0.2-1.3) mg/dL AST (14-36) U/L ALT (0-35) U/L Alkaline Phosphatase (38-126) U/L Lactate Dehydrogenase (120-246) U/L Troponin I < 0.012 (0.000-0.034) ng/mL NT-Pro-B Natriuret Pep (0-900) pg/mL Serum Total Protein (6.3-8.2) g/dL Albumin (3.5-5.0) g/dL Amylase (30-110) U/L Lipase (23-300) U/L Urine Color YELLOW (YELLOW) Urine Appearance SLIGHTLY CLOUDY (CLEAR) Urine pH 5.0 (5-6) Ur Specific [place] 1.026 (1.005-1.025) Urine Protein NEGATIVE (Negative) Urine Ketones NEGATIVE (NEGATIVE) Urine Blood NEGATIVE (0-5) Hemal/ul Urine Nitrite NEGATIVE (NEGATIVE) Urine Bilirubin NEGATIVE (NEGATIVE) Urine Urobilinogen 2 (0-1) mg/dL Ur Leukocyte Esterase MODERATE (NEGATIVE) Urine WBC (Auto) 51-100 (0-5) /HPF Urine RBC (Auto) 3-5 (0-2) /HPF U Epithel Cells (Auto) NONE (FEW) /HPF Urine Bacteria (Auto) NONE (NEGATIVE) /HPF Urine Mucus (Auto) SLIGHT (NEGATIVE) /HPF Urine Culture Reflexed YES (NO) Urine Glucose NEGATIVE (NEGATIVE) mg/dL 09/02/19 09/02/19 09/02/19 Range/Units 16:38 16:38 16:38 WBC 6.9 (4.0-10.5) K/mm3 RBC 4.82 (4.1-5.4) M/mm3 Hgb 12.9 (12.0-16.0) gm/dl Hct 40.9 (35-47) % MCV 84.9 (78-100) fl MCH 26.8 (26-32) pg MCHC 31.5 L (32-36) g/dl RDW 15.6 H (11.5-14.0) % Plt Count 316 (150-450) K/mm3 MPV 9.1 (7.5-11.0) fl Gran % 62.8 (36.0-66.0) % Eos # (Auto) 0.10 (0-0.5) Absolute Lymphs (auto) 2.03 (1.0-4.6) Absolute Monos (auto) 0.40 (0.0-1.3) Lymphocytes % 29.3 (24.0-44.0) % Monocytes % 5.8 (0.0-12.0) % Eosinophils % 1.4 (0.00-5.0) % Basophils % 0.7 (0.0-0.4) % Absolute Granulocytes 4.35 (1.4-6.9) Basophils # 0.05 (0-0.4) PT 10.8 (9.95-12.35) SECONDS INR 0.96 (0.8-3.0) D-Dimer 2246 H* (215-500) ng/mL Sodium 142 (137-145) mmol/L Potassium 3.6 (3.5-5.1) mmol/L Chloride 105 (98-107) mmol/L Carbon Dioxide 26 (22-30) mmol/L Anion Gap 14.5 (5-15) MEQ/L BUN 17 (7-17) mg/dL Creatinine 1.16 H (0.52-1.04) mg/dL Estimated GFR 50.1 ML/MIN Glucose 91 (74-106) mg/dL Lactic Acid (0.4-2.0) Calcium 10.0 (8.4-10.2) mg/dL Magnesium 1.9 (1.6-2.3) mg/dL Ferritin (11.1-264) ng/mL Total Bilirubin 0.60 (0.2-1.3) mg/dL AST 30 (14-36) U/L ALT 11 (0-35) U/L Alkaline Phosphatase 164 H (38-126) U/L Lactate Dehydrogenase 262 H (120-246) U/L Troponin I (0.000-0.034) ng/mL NT-Pro-B Natriuret Pep 197 (0-900) pg/mL Serum Total Protein 9.4 H (6.3-8.2) g/dL Albumin 4.8 (3.5-5.0) g/dL Amylase 91 (30-110) U/L Lipase 341 H (23-300) U/L Urine Color (YELLOW) Urine Appearance (CLEAR) Urine pH (5-6) Ur Specific [place] (1.005-1.025) Urine Protein (Negative) Urine Ketones (NEGATIVE) Urine Blood (0-5) Hemal/ul Urine Nitrite (NEGATIVE) Urine Bilirubin (NEGATIVE) Urine Urobilinogen (0-1) mg/dL Ur Leukocyte Esterase (NEGATIVE) Urine WBC (Auto) (0-5) /HPF Urine RBC (Auto) (0-2) /HPF U Epithel Cells (Auto) (FEW) /HPF Urine Bacteria (Auto) (NEGATIVE) /HPF Urine Mucus (Auto) (NEGATIVE) /HPF Urine Culture Reflexed (NO) Urine Glucose (NEGATIVE) mg/dL 09/02/19 Range/Units 16:28 WBC (4.0-10.5) K/mm3 RBC (4.1-5.4) M/mm3 Hgb (12.0-16.0) gm/dl Hct (35-47) % MCV (78-100) fl MCH (26-32) pg MCHC (32-36) g/dl RDW (11.5-14.0) % Plt Count (150-450) K/mm3 MPV (7.5-11.0) fl Gran % (36.0-66.0) % Eos # (Auto) (0-0.5) Absolute Lymphs (auto) (1.0-4.6) Absolute Monos (auto) (0.0-1.3) Lymphocytes % (24.0-44.0) % Monocytes % (0.0-12.0) % Eosinophils % (0.00-5.0) % Basophils % (0.0-0.4) % Absolute Granulocytes (1.4-6.9) Basophils # (0-0.4) PT (9.95-12.35) SECONDS INR (0.8-3.0) D-Dimer (215-500) ng/mL Sodium (137-145) mmol/L Potassium (3.5-5.1) mmol/L Chloride (98-107) mmol/L Carbon Dioxide (22-30) mmol/L Anion Gap (5-15) MEQ/L BUN (7-17) mg/dL Creatinine (0.52-1.04) mg/dL Estimated GFR ML/MIN Glucose (74-106) mg/dL Lactic Acid 1.3 (0.4-2.0) Calcium (8.4-10.2) mg/dL Magnesium (1.6-2.3) mg/dL Ferritin (11.1-264) ng/mL Total Bilirubin (0.2-1.3) mg/dL AST (14-36) U/L ALT (0-35) U/L Alkaline Phosphatase (38-126) U/L Lactate Dehydrogenase (120-246) U/L Troponin I (0.000-0.034) ng/mL NT-Pro-B Natriuret Pep (0-900) pg/mL Serum Total Protein (6.3-8.2) g/dL Albumin (3.5-5.0) g/dL Amylase (30-110) U/L Lipase (23-300) U/L Urine Color (YELLOW) Urine Appearance (CLEAR) Urine pH (5-6) Ur Specific [place] (1.005-1.025) Urine Protein (Negative) Urine Ketones (NEGATIVE) Urine Blood (0-5) Hemal/ul Urine Nitrite (NEGATIVE) Urine Bilirubin (NEGATIVE) Urine Urobilinogen (0-1) mg/dL Ur Leukocyte Esterase (NEGATIVE) Urine WBC (Auto) (0-5) /HPF Urine RBC (Auto) (0-2) /HPF U Epithel Cells (Auto) (FEW) /HPF Urine Bacteria (Auto) (NEGATIVE) /HPF Urine Mucus (Auto) (NEGATIVE) /HPF Urine Culture Reflexed (NO) Urine Glucose (NEGATIVE) mg/dL - Progress Progress: unchanged Air Movement: fair Blood Culture(s) Obtained: No Antibiotics given: Yes - Departure Departure Disposition: In-patient Admission Clinical Impression: Urinary tract infection Condition: Fair Critical Care Time: Yes Critical Care Time(excluding separately billable procedures): Critical 30-74 mins Referrals: WAQAR CASTRO [Primary Care Provider] -
[2019-09-02 22:00] LABS: INFLUENZA A NEGATIVE (NEGATIVE); INFLUENZA B NEGATIVE (NEGATIVE); RESPIRATORY SYNCTIAL VIRUS NEGATIVE (Negative)
[2019-09-02] MEDS: Sodium Chloride 0.9% W/ 20 mEq KCl/LITER 1,000 ML IV SCH (22:30)
[2019-09-02] MEDS: TORAdol 30 mg Injection IV PRN (22:33)
[2019-09-02] MEDS ORDERED: VENTOLIN COMMON CANISTER IH SCH (23:00)
[2019-09-03] MEDS ORDERED: Zanaflex 4 MG PO PRN (00:10)
[2019-09-03] MEDS: MORPHINE SULFATE 4 MG INJ IV PRN ×5 (00:27→22:29)
[2019-09-03] MEDS: Coreg 3.125 MG PO SCH ×3 (00:28→21:35)
[2019-09-03] MEDS: ELIQUIS 2.5 MG TABLET PO SCH ×3 (00:28→21:35)
[2019-09-03] MEDS: Zofran 4 MG/2 ML VIAL IV PRN ×4 (00:29→22:32)
[2019-09-03 05:22] LABS: Absolute Neutrophil Ct (ANC) 2.61 (1.4-6.9); BASOPHIL % 0.8 % (0.0-0.4); Basophil (Absolute #) 0.04 (0-0.4); Eosinophil % 1.9 % (0.00-5.0); Hematocrit 36.9 % (35-47); Hemoglobin 11.5 gm/dl (12.0-16.0); Lymphocyte (Absolute #) 2.12 (1.0-4.6); Lymphocytes % 40.5 % (24.0-44.0); Mean Cell Volume 87.6 fl (78-100); Mean Corpuscular Hemoglobin 27.3 pg (26-32); Mean Corpuscular Hgb Concent. 31.2 g/dl (32-36); Mean Platelet Volume 9.1 fl (7.5-11.0); Monocyte (Absolute #) 0.36 (0.0-1.3); Monocytes % 6.9 % (0.0-12.0); Neutrophil % 49.9 % (36.0-66.0); Platelet Count 225 K/mm3 (150-450); Red Blood Count 4.21 M/mm3 (4.1-5.4); Red Cell Distribution Width 15.6 % (11.5-14.0); White Blood Count 5.2 K/mm3 (4.0-10.5)
[2019-09-03 05:48] LABS: ALBUMIN 3.7 g/dL (3.5-5.0); ANION GAP 10.6 MEQ/L (5-15); BILIRUBIN,TOTAL 0.6 mg/dL (0.2-1.3); Calcium 9.1 mg/dL (8.4-10.2); Creatinine 1 1.01 mg/dL (0.52-1.04); Potassium 3.6 mmol/L (3.5-5.1); Total Protein 7.4 g/dL (6.3-8.2)
--- NOTE | 2019-09-03 08:33 | XRAY ---
Indication: Chest pain, short of breath, CHF, cardiac arrhythmia, and elevated d-dimer. Multiple contiguous axial images obtained through the chest using 100 cc Isovue-370 contrast and PE protocol. Comparison: June 10, 2018. There is good opacification of the pulmonary arteries to include the lobar and segmental branches. No filling defect or pulmonary embolus. Heart remains enlarged again with left-sided AICD. Right Port-A-Cath and tip is now seen coiled in the anterior chest wall and considered nonfunctional. Aorta is again normal in course and caliber. No pathologic mediastinal/hilar lymphadenopathy. Lungs again demonstrates minimal bilateral dependent atelectasis and mild bibasilar fibrosis/scarring. No suspicious pulmonary mass, infiltrate, or effusion. Bony thorax intact with mild osteopenia. Limited upper abdomen again demonstrates GE junction postsurgical changes and cholecystectomy. Impression: 1. Negative pulmonary embolus. No acute cardiopulmonary abnormalities. 2. Stable cardiomegaly and scattered fibrosis/scarring. 3. Nonfunctioning right Port-A-Cath.
--- NOTE | 2019-09-03 08:42 | PCM.HP ---
History of Present Illness - Chief Complaint Chief Complaint: chest pain r/o, COVID 19 r/o, UTI, SOB History of Present Illness: is a 64 year old female who presented to the ER with complaints of chest pain, heaviness in her chest. She is a poor historian but relays vague symptoms for weeks of "not feeling well". she had some ear pain and cough and was given medrol and zpak 2 weeks ago in [facility]. she denies any significant cough or fever but complains of substernal chest pain with radiation to her back , neck, shoulders and describes it as a heaviness. she also feels short of breath due to the heavy sensation in her chest. she is a nonsmoker, states she has a remote history of asthma but is a nonsmoker and has no copd etc. she has a pacemaker but no history of CO or significant known cad, no stents etc. she had a cath with replacement of her pacemaker she reports earlier this year with no intervention or significant stenosis discovered at that time. - Review of Systems Constitutional: No Fever, No Chills Respiratory: Short Of Breath, No Cough Cardiac: Chest Pain, No Palpitations, No Syncope Abdominal/Gastrointestinal: No Abdominal Pain, No Nausea, No Vomiting, No Diarrhea Genitourinary Symptoms: No Dysuria Skin: No Rash Neurological: No Dizziness, No Focal Weakness, No Sensory Changes Psychological: Other (holds her mouth over her face while talking) All Other Systems: Reviewed and Negative Medications & Allergies Home Medications: Home Medication List Omeprazole [Prilosec] 40 mg PO DAILY 11/24/11 [History Confirmed 09/02/19] Carvedilol 3.125 mg [Coreg 3.125 MG] 3.125 mg PO BID 06/08/15 [History Confirmed 09/02/19] Apixaban [Eliquis] 5 mg PO BID 02/11/17 [History Confirmed 09/02/19] Tizanidine HCl 4 mg PO BID PRN PRN 11/10/17 [History Confirmed 09/02/19] Furosemide [Lasix] 10 mg PO DAILY PRN 03/09/18 [History Confirmed 09/02/19] Promethazine HCl 25 mg [Phenergan 25 mg] 25 mg PO Q6H PRN PRN 01/14/19 [ History Confirmed 09/02/19] Albuterol Common Canister [Ventolin Common Canister] 2 puff IH Q6HPRN PRN 04/29/19 [History Confirmed 09/02/19] Levothyroxine Sodium [Synthroid] 300 mcg PO DAILY 04/29/19 [History Confirmed ] Morphine Sulfate 30 mg PO DAILY PRN PRN 04/29/19 [History Confirmed 09/02/19] Nitroglycerin 0.4 mg SL Q5MIN PRN MR X 3 PRN 04/29/19 [History Confirmed ] Ondansetron [Ondansetron Odt] 4 mg PO Q6HPRN PRN 04/29/19 [History Confirmed ] Aspirin [[place] Aspirin EC] 81 mg PO DAILY 05/13/19 [History Confirmed 09/01] Allergies/Adverse Reactions: Allergies Allergy/AdvReac Type Severity Reaction Status Date / Time codeine [Codeine] Allergy Mild Nausea and Verified 09/02/19 16:41 Vomiting Sulfa (Sulfonamide Allergy Mild Nausea and Verified 09/02/19 16:41 Antibiotics) Vomiting [Sulfa(Sulfonamide Antibiotics)] adhesive Allergy Verified 09/02/19 16:41 acetaminophen [From Percocet] AdvReac Vomiting Verified 09/02/19 16:41 oxycodone [From Percocet] AdvReac Vomiting Verified 09/02/19 16:41 - Past Medical History Past Medical History: Yes Neurological History: Stroke ENT History: No Pertinent History Cardiac History: Arrhythmia Respiratory History: No Pertinent History Endocrine Medical History: Hypothyroidism Musculoskelatal History: Arthritis, Degenerative Disk Disease GI Medical History: GERD, Hernia, Other History: Other Pyscho-Social History: No Pertinent History Reproductive Disorders: Endometriosis Comment: Hypotension. PACEMAKER implanted 10 years ago. - Female History Hx Last Menstrual Period: post Are you now?: No - Past Surgical History Past Surgical History: Yes Neuro Surgical History: No Pertinent History Cardiac History: Cardiac Catheterization, Internal Defibrillator, Pacemaker Respiratory Surgery: No Pertinent History GI Surgical History: Appendectomy, Cholecystectomy, Colon Resection, Hernia Repair, Other Genitourinary Surgical Hx: No Pertinent History Musculskeletal Surgical Hx: Orthopedic Surgery Female Surgical History: Hysterectomy Other Surgical History: THYROID REMOVED, 40% and 50% blockages found with last heart cath about 4 years ago. ankle surgery d/t break,ileostomy, CVL port removed and replaced, PICC line placed for CVL surgery September 2015. ostomy repair due to blockage 09/02, back surgery and 4 I&D september and october and november 2017. 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 TLIF fused discs in back. OCTOBER 2018 CAROTIDECTOMY AND LYMPH NODE REMOVAL ON RIGHT SIDE. Right Parotid gland removed. - Social History Smoking Status: Never smoker Exposure to second hand smoke: No Alcohol: None Drug Use: none Significant Family History: heart disease, cancer, diabetes - Physical Exam Vital Signs: Vital Signs - 24 hr Temp Pulse Resp BP Pulse Ox 09/03/19 06:52 60 16 93 L 09/03/19 04:00 96.6 F 60 17 111/63 93 L 09/02/19 23:04 96.4 F 69 15 110/65 98 09/02/19 23:00 67 19 96 09/02/19 20:34 96 09/02/19 18:08 83 22 124/75 96 09/02/19 17:31 74 20 124/75 100 09/02/19 16:22 97.9 F 92 H 22 112/82 100 09/02/19 16:10 89 19 112/82 100 General Appearance: no apparent distress Neurologic Exam: alert, cooperative Respiratory Exam: normal breath sounds, lungs clear, No respiratory distress Cardiovascular Exam: regular rate/rhythm, normal heart sounds, normal peripheral pulses Gastrointestinal/Abdomen Exam: soft, normal bowel sounds, No tenderness, No mass Extremity Exam: normal inspection, normal range of motion, pelvis stable Skin Exam: normal color, warm, dry, No rash Results - Labs Lab/Micro Results: Lab Results-Last 24 Hours 09/02/19 09/02/19 09/02/19 Range/Units 16:28 16:38 16:38 WBC 6.9 (4.0-10.5) K/mm3 RBC 4.82 (4.1-5.4) M/mm3 Hgb 12.9 (12.0-16.0) gm/dl Hct 40.9 (35-47) % MCV 84.9 (78-100) fl MCH 26.8 (26-32) pg MCHC 31.5 L (32-36) g/dl RDW 15.6 H (11.5-14.0) % Plt Count 316 (150-450) K/mm3 MPV 9.1 (7.5-11.0) fl Gran % 62.8 (36.0-66.0) % Eos # (Auto) 0.10 (0-0.5) Absolute Lymphs (auto) 2.03 (1.0-4.6) Absolute Monos (auto) 0.40 (0.0-1.3) Lymphocytes % 29.3 (24.0-44.0) % Monocytes % 5.8 (0.0-12.0) % Eosinophils % 1.4 (0.00-5.0) % Basophils % 0.7 (0.0-0.4) % Absolute Granulocytes 4.35 (1.4-6.9) Basophils # 0.05 (0-0.4) PT (9.95-12.35) SECONDS INR (0.8-3.0) D-Dimer (215-500) ng/mL Sodium 142 (137-145) mmol/L Potassium 3.6 (3.5-5.1) mmol/L Chloride 105 (98-107) mmol/L Carbon Dioxide 26 (22-30) mmol/L Anion Gap 14.5 (5-15) MEQ/L BUN 17 (7-17) mg/dL Creatinine 1.16 H (0.52-1.04) mg/dL Estimated GFR 50.1 ML/MIN Glucose 91 (74-106) mg/dL Lactic Acid 1.3 (0.4-2.0) Calcium 10.0 (8.4-10.2) mg/dL Magnesium 1.9 (1.6-2.3) mg/dL Ferritin (11.1-264) ng/mL Total Bilirubin 0.60 (0.2-1.3) mg/dL AST 30 (14-36) U/L ALT 11 (0-35) U/L Alkaline Phosphatase 164 H (38-126) U/L Lactate Dehydrogenase 262 H (120-246) U/L Troponin I (0.000-0.034) ng/mL NT-Pro-B Natriuret Pep 197 (0-900) pg/mL Serum Total Protein 9.4 H (6.3-8.2) g/dL Albumin 4.8 (3.5-5.0) g/dL Amylase 91 (30-110) U/L Lipase 341 H (23-300) U/L Urine Color (YELLOW) Urine Appearance (CLEAR) Urine pH (5-6) Ur Specific [place] (1.005-1.025) Urine Protein (Negative) Urine Ketones (NEGATIVE) Urine Blood (0-5) Hemal/ul Urine Nitrite (NEGATIVE) Urine Bilirubin (NEGATIVE) Urine Urobilinogen (0-1) mg/dL Ur Leukocyte Esterase (NEGATIVE) Urine WBC (Auto) (0-5) /HPF Urine RBC (Auto) (0-2) /HPF U Epithel Cells (Auto) (FEW) /HPF Urine Bacteria (Auto) (NEGATIVE) /HPF Urine Mucus (Auto) (NEGATIVE) /HPF Urine Culture Reflexed (NO) Urine Glucose (NEGATIVE) mg/dL Influenza Type A Ag (NEGATIVE) Influenza Type B Ag (NEGATIVE) RSV (PCR) (Negative) 09/02/19 09/02/19 09/02/19 Range/Units 16:38 16:38 16:38 WBC (4.0-10.5) K/mm3 RBC (4.1-5.4) M/mm3 Hgb (12.0-16.0) gm/dl Hct (35-47) % MCV (78-100) fl MCH (26-32) pg MCHC (32-36) g/dl RDW (11.5-14.0) % Plt Count (150-450) K/mm3 MPV (7.5-11.0) fl Gran % (36.0-66.0) % Eos # (Auto) (0-0.5) Absolute Lymphs (auto) (1.0-4.6) Absolute Monos (auto) (0.0-1.3) Lymphocytes % (24.0-44.0) % Monocytes % (0.0-12.0) % Eosinophils % (0.00-5.0) % Basophils % (0.0-0.4) % Absolute Granulocytes (1.4-6.9) Basophils # (0-0.4) PT 10.8 (9.95-12.35) SECONDS INR 0.96 (0.8-3.0) D-Dimer 2246 H* (215-500) ng/mL Sodium (137-145) mmol/L Potassium (3.5-5.1) mmol/L Chloride (98-107) mmol/L Carbon Dioxide (22-30) mmol/L Anion Gap (5-15) MEQ/L BUN (7-17) mg/dL Creatinine (0.52-1.04) mg/dL Estimated GFR ML/MIN Glucose (74-106) mg/dL Lactic Acid (0.4-2.0) Calcium (8.4-10.2) mg/dL Magnesium (1.6-2.3) mg/dL Ferritin 10.0 L (11.1-264) ng/mL Total Bilirubin (0.2-1.3) mg/dL AST (14-36) U/L ALT (0-35) U/L Alkaline Phosphatase (38-126) U/L Lactate Dehydrogenase (120-246) U/L Troponin I < 0.012 (0.000-0.034) ng/mL NT-Pro-B Natriuret Pep (0-900) pg/mL Serum Total Protein (6.3-8.2) g/dL Albumin (3.5-5.0) g/dL Amylase (30-110) U/L Lipase (23-300) U/L Urine Color (YELLOW) Urine Appearance (CLEAR) Urine pH (5-6) Ur Specific [place] (1.005-1.025) Urine Protein (Negative) Urine Ketones (NEGATIVE) Urine Blood (0-5) Hemal/ul Urine Nitrite (NEGATIVE) Urine Bilirubin (NEGATIVE) Urine Urobilinogen (0-1) mg/dL Ur Leukocyte Esterase (NEGATIVE) Urine WBC (Auto) (0-5) /HPF Urine RBC (Auto) (0-2) /HPF U Epithel Cells (Auto) (FEW) /HPF Urine Bacteria (Auto) (NEGATIVE) /HPF Urine Mucus (Auto) (NEGATIVE) /HPF Urine Culture Reflexed (NO) Urine Glucose (NEGATIVE) mg/dL Influenza Type A Ag (NEGATIVE) Influenza Type B Ag (NEGATIVE) RSV (PCR) (Negative) 09/02/19 09/02/19 09/02/19 Range/Units 17:45 20:25 21:15 WBC (4.0-10.5) K/mm3 RBC (4.1-5.4) M/mm3 Hgb (12.0-16.0) gm/dl Hct (35-47) % MCV (78-100) fl MCH (26-32) pg MCHC (32-36) g/dl RDW (11.5-14.0) % Plt Count (150-450) K/mm3 MPV (7.5-11.0) fl Gran % (36.0-66.0) % Eos # (Auto) (0-0.5) Absolute Lymphs (auto) (1.0-4.6) Absolute Monos (auto) (0.0-1.3) Lymphocytes % (24.0-44.0) % Monocytes % (0.0-12.0) % Eosinophils % (0.00-5.0) % Basophils % (0.0-0.4) % Absolute Granulocytes (1.4-6.9) Basophils # (0-0.4) PT (9.95-12.35) SECONDS INR (0.8-3.0) D-Dimer (215-500) ng/mL Sodium (137-145) mmol/L Potassium (3.5-5.1) mmol/L Chloride (98-107) mmol/L Carbon Dioxide (22-30) mmol/L Anion Gap (5-15) MEQ/L BUN (7-17) mg/dL Creatinine (0.52-1.04) mg/dL Estimated GFR ML/MIN Glucose (74-106) mg/dL Lactic Acid (0.4-2.0) Calcium (8.4-10.2) mg/dL Magnesium (1.6-2.3) mg/dL Ferritin (11.1-264) ng/mL Total Bilirubin (0.2-1.3) mg/dL AST (14-36) U/L ALT (0-35) U/L Alkaline Phosphatase (38-126) U/L Lactate Dehydrogenase (120-246) U/L Troponin I < 0.012 (0.000-0.034) ng/mL NT-Pro-B Natriuret Pep (0-900) pg/mL Serum Total Protein (6.3-8.2) g/dL Albumin (3.5-5.0) g/dL Amylase (30-110) U/L Lipase (23-300) U/L Urine Color YELLOW (YELLOW) Urine Appearance SLIGHTLY CLOUDY (CLEAR) Urine pH 5.0 (5-6) Ur Specific [place] 1.026 (1.005-1.025) Urine Protein NEGATIVE (Negative) Urine Ketones NEGATIVE (NEGATIVE) Urine Blood NEGATIVE (0-5) Hemal/ul Urine Nitrite NEGATIVE (NEGATIVE) Urine Bilirubin NEGATIVE (NEGATIVE) Urine Urobilinogen 2 (0-1) mg/dL Ur Leukocyte Esterase MODERATE (NEGATIVE) Urine WBC (Auto) 51-100 (0-5) /HPF Urine RBC (Auto) 3-5 (0-2) /HPF U Epithel Cells (Auto) NONE (FEW) /HPF Urine Bacteria (Auto) NONE (NEGATIVE) /HPF Urine Mucus (Auto) SLIGHT (NEGATIVE) /HPF Urine Culture Reflexed YES (NO) Urine Glucose NEGATIVE (NEGATIVE) mg/dL Influenza Type A Ag NEGATIVE (NEGATIVE) Influenza Type B Ag NEGATIVE (NEGATIVE) RSV (PCR) NEGATIVE (Negative) 09/02/19 09/03/19 09/03/19 Range/Units 23:10 01:35 04:25 WBC (4.0-10.5) K/mm3 RBC (4.1-5.4) M/mm3 Hgb (12.0-16.0) gm/dl Hct (35-47) % MCV (78-100) fl MCH (26-32) pg MCHC (32-36) g/dl RDW (11.5-14.0) % Plt Count (150-450) K/mm3 MPV (7.5-11.0) fl Gran % (36.0-66.0) % Eos # (Auto) (0-0.5) Absolute Lymphs (auto) (1.0-4.6) Absolute Monos (auto) (0.0-1.3) Lymphocytes % (24.0-44.0) % Monocytes % (0.0-12.0) % Eosinophils % (0.00-5.0) % Basophils % (0.0-0.4) % Absolute Granulocytes (1.4-6.9) Basophils # (0-0.4) PT (9.95-12.35) SECONDS INR (0.8-3.0) D-Dimer (215-500) ng/mL Sodium (137-145) mmol/L Potassium (3.5-5.1) mmol/L Chloride (98-107) mmol/L Carbon Dioxide (22-30) mmol/L Anion Gap (5-15) MEQ/L BUN (7-17) mg/dL Creatinine (0.52-1.04) mg/dL Estimated GFR ML/MIN Glucose (74-106) mg/dL Lactic Acid (0.4-2.0) Calcium (8.4-10.2) mg/dL Magnesium (1.6-2.3) mg/dL Ferritin (11.1-264) ng/mL Total Bilirubin (0.2-1.3) mg/dL AST (14-36) U/L ALT (0-35) U/L Alkaline Phosphatase (38-126) U/L Lactate Dehydrogenase (120-246) U/L Troponin I < 0.012 < 0.012 < 0.012 (0.000-0.034) ng/mL NT-Pro-B Natriuret Pep (0-900) pg/mL Serum Total Protein (6.3-8.2) g/dL Albumin (3.5-5.0) g/dL Amylase (30-110) U/L Lipase (23-300) U/L Urine Color (YELLOW) Urine Appearance (CLEAR) Urine pH (5-6) Ur Specific [place] (1.005-1.025) Urine Protein (Negative) Urine Ketones (NEGATIVE) Urine Blood (0-5) Hemal/ul Urine Nitrite (NEGATIVE) Urine Bilirubin (NEGATIVE) Urine Urobilinogen (0-1) mg/dL Ur Leukocyte Esterase (NEGATIVE) Urine WBC (Auto) (0-5) /HPF Urine RBC (Auto) (0-2) /HPF U Epithel Cells (Auto) (FEW) /HPF Urine Bacteria (Auto) (NEGATIVE) /HPF Urine Mucus (Auto) (NEGATIVE) /HPF Urine Culture Reflexed (NO) Urine Glucose (NEGATIVE) mg/dL Influenza Type A Ag (NEGATIVE) Influenza Type B Ag (NEGATIVE) RSV (PCR) (Negative) 09/03/19 09/03/19 Range/Units 04:25 04:25 WBC 5.2 (4.0-10.5) K/mm3 RBC 4.21 (4.1-5.4) M/mm3 Hgb 11.5 L (12.0-16.0) gm/dl Hct 36.9 (35-47) % MCV 87.6 (78-100) fl MCH 27.3 (26-32) pg MCHC 31.2 L (32-36) g/dl RDW 15.6 H (11.5-14.0) % Plt Count 225 (150-450) K/mm3 MPV 9.1 (7.5-11.0) fl Gran % 49.9 (36.0-66.0) % Eos # (Auto) 0.10 (0-0.5) Absolute Lymphs (auto) 2.12 (1.0-4.6) Absolute Monos (auto) 0.36 (0.0-1.3) Lymphocytes % 40.5 (24.0-44.0) % Monocytes % 6.9 (0.0-12.0) % Eosinophils % 1.9 (0.00-5.0) % Basophils % 0.8 (0.0-0.4) % Absolute Granulocytes 2.61 (1.4-6.9) Basophils # 0.04 (0-0.4) PT (9.95-12.35) SECONDS INR (0.8-3.0) D-Dimer (215-500) ng/mL Sodium 139 (137-145) mmol/L Potassium 3.6 (3.5-5.1) mmol/L Chloride 109 H (98-107) mmol/L Carbon Dioxide 23 (22-30) mmol/L Anion Gap 10.6 (5-15) MEQ/L BUN 16 (7-17) mg/dL Creatinine 1.01 (0.52-1.04) mg/dL Estimated GFR 58.8 ML/MIN Glucose 81 (74-106) mg/dL Lactic Acid (0.4-2.0) Calcium 9.1 (8.4-10.2) mg/dL Magnesium (1.6-2.3) mg/dL Ferritin (11.1-264) ng/mL Total Bilirubin 0.60 (0.2-1.3) mg/dL AST 25 (14-36) U/L ALT 9 (0-35) U/L Alkaline Phosphatase 118 (38-126) U/L Lactate Dehydrogenase (120-246) U/L Troponin I (0.000-0.034) ng/mL NT-Pro-B Natriuret Pep (0-900) pg/mL Serum Total Protein 7.4 (6.3-8.2) g/dL Albumin 3.7 (3.5-5.0) g/dL Amylase (30-110) U/L Lipase (23-300) U/L Urine Color (YELLOW) Urine Appearance (CLEAR) Urine pH (5-6) Ur Specific [place] (1.005-1.025) Urine Protein (Negative) Urine Ketones (NEGATIVE) Urine Blood (0-5) Hemal/ul Urine Nitrite (NEGATIVE) Urine Bilirubin (NEGATIVE) Urine Urobilinogen (0-1) mg/dL Ur Leukocyte Esterase (NEGATIVE) Urine WBC (Auto) (0-5) /HPF Urine RBC (Auto) (0-2) /HPF U Epithel Cells (Auto) (FEW) /HPF Urine Bacteria (Auto) (NEGATIVE) /HPF Urine Mucus (Auto) (NEGATIVE) /HPF Urine Culture Reflexed (NO) Urine Glucose (NEGATIVE) mg/dL Influenza Type A Ag (NEGATIVE) Influenza Type B Ag (NEGATIVE) RSV (PCR) (Negative) - Radiology Impressions Radiology Exams & Impressions: Radiology Procedures Category Date Time Status CHEST 1 VIEW (PORTABLE) Stat Exams 09/02/19 16:15 Completed CHEST WITH CONTRAST [CT] Stat Exams 09/02/19 17:41 Completed - Other Procedures and Tests Respiratory Therapy 09/02/19 22:17 Respiratory Therapy Assessment DAILY Assessment/Plan (1) Chest pain, rule out acute myocardial infarction Current Visit: Yes Status: Acute Assessment & Plan: CTA chest negative for PE currently, she is on eliquis, will continue. Code(s): R07.9 - CHEST PAIN, UNSPECIFIED (2) Dyspnea Current Visit: Yes Status: Acute Assessment & Plan: no obvious etiology, room air saturation is normal. awaiting covid-19 testing, index of suspicion is low. will add low dose of prednisone as chest pain seems pleuritic/msk in origin and noncardiac. Code(s): R06.00 - DYSPNEA, UNSPECIFIED
[2019-09-03] MEDS ORDERED: Nitrostat 0.4 MG Tablet SL PRN (09:47)
[2019-09-03] MEDS ORDERED: ROCEPHIN 1 Gm-D5w 50 ml Bag** 1 G/50 ML IVPB IV SCH (10:00)
[2019-09-03] MEDS ORDERED: NON-FORMULARY ITEM (Omeprazole [Prilosec] 40 MG) PO SCH (10:00)
[2019-09-03] MEDS: DELTASONE 20 MG PO SCH (10:06)
[2019-09-03] MEDS: ECOTRIN 81 MG PO SCH (10:07)
[2019-09-03] MEDS: SYNTHROID 150 MCG PO SCH (10:07)
[2019-09-03] MEDS: Protonix 40MG Tablet PO SCH (10:07)
[2019-09-03] MEDS: Sodium Chloride 0.9% W/ 20 mEq KCl/LITER 1,000 ML IV SCH (12:54)
[2019-09-03] MEDS: ROCEPHIN 1 Gm-D5w 50 ml Bag** 1 G/50 ML IVPB IV SCH (21:36)
[2019-09-03] MEDS ORDERED: VENTOLIN COMMON CANISTER IH PRN (21:42)
[2019-09-04] MEDS: Sodium Chloride 0.9% W/ 20 mEq KCl/LITER 1,000 ML IV SCH ×2 (03:05→05:35)
[2019-09-04] MEDS: Zofran 4 MG/2 ML VIAL IV PRN ×2 (05:11→18:57)
[2019-09-04] MEDS: MORPHINE SULFATE 4 MG INJ IV PRN ×3 (05:28→20:08)
[2019-09-04 05:34] LABS: Absolute Neutrophil Ct (ANC) 3.58 (1.4-6.9); BASOPHIL % 0.4 % (0.0-0.4); Basophil (Absolute #) 0.02 (0-0.4); Eosinophil % 1.1 % (0.00-5.0); Eosinophil (Absolute #) 0.06 (0-0.5); Hematocrit 34.1 % (35-47); Hemoglobin 10.4 gm/dl (12.0-16.0); Lymphocyte (Absolute #) 1.44 (1.0-4.6); Lymphocytes % 26.8 % (24.0-44.0); Mean Cell Volume 88.1 fl (78-100); Mean Corpuscular Hemoglobin 26.9 pg (26-32); Mean Corpuscular Hgb Concent. 30.5 g/dl (32-36); Mean Platelet Volume 8.9 fl (7.5-11.0); Monocyte (Absolute #) 0.27 (0.0-1.3); Neutrophil % 66.7 % (36.0-66.0); Platelet Count 252 K/mm3 (150-450); Red Blood Count 3.87 M/mm3 (4.1-5.4); Red Cell Distribution Width 15.4 % (11.5-14.0); White Blood Count 5.4 K/mm3 (4.0-10.5)
[2019-09-04 06:37] LABS: ANION GAP 12.6 MEQ/L (5-15); BLOOD UREA NITROGEN 13 mg/dL (7-17); CHLORIDE 111 mmol/L (98-107); Calcium 8.7 mg/dL (8.4-10.2); Carbon Dioxide 22 mmol/L (22-30); Creatinine 1 1.11 mg/dL (0.52-1.04); Glucose 106 mg/dL (74-106); Potassium 4.7 mmol/L (3.5-5.1); SODIUM 141 mmol/L (137-145)
[2019-09-04 06:40] LABS: TROPONIN < 0.012 ng/mL (0.000-0.034)
[2019-09-04] MEDS: SYNTHROID 150 MCG PO SCH (10:16)
[2019-09-04] MEDS: ECOTRIN 81 MG PO SCH (10:17)
[2019-09-04] MEDS: Protonix 40MG Tablet PO SCH (10:18)
[2019-09-04] MEDS: ELIQUIS 2.5 MG TABLET PO SCH ×2 (10:18→22:00)
[2019-09-04] MEDS: DELTASONE 20 MG PO SCH (10:19)
[2019-09-04] MEDS: Coreg 3.125 MG PO SCH ×2 (10:19→22:28)
--- NOTE | 2019-09-04 11:34 | PCM.NOTE ---
Date and Time: 09/04/19 1132 Subjective Assessment: patient still c/o chest pain/heaviness. worse with cough or deep inspiration. she is not requiring any oxygen Objective Exam General Appearance: no apparent distress, alert Neurologic Exam: alert, oriented x 3, cooperative Respiratory Exam: normal breath sounds, lungs clear, No respiratory distress Cardiovascular Exam: regular rate/rhythm, normal heart sounds Gastrointestinal/Abdomen Exam: soft, No tenderness, No mass Extremity Exam: normal inspection, normal range of motion OBJECTIVE DATA Vital Signs: Vital Signs - 24 hr Temp Pulse Resp BP Pulse Ox 09/04/19 10:00 97.3 F 64 18 116/64 95 09/04/19 07:57 96.1 F 63 16 117/71 97 09/04/19 07:43 68 16 95 09/04/19 06:00 96.4 F 60 15 110/72 96 09/04/19 04:00 97.9 F 82 10 L 93/56 95 09/04/19 02:00 60 14 97 09/03/19 22:53 97.0 F 61 18 116/69 96 09/03/19 21:26 55 L 11 L 94 L 09/03/19 19:40 97.1 F 67 13 115/69 94 L 09/03/19 16:00 97.1 F 71 14 129/79 97 09/03/19 12:00 97.0 F 72 20 128/84 95 Oxygen-Last 24 hours Oxygen Flowrate (L/min)-RT 1 Pain Assessment - Last Documented Pain Intensity 5 Pain Scale Used 0-10 Pain Scale Intake and Output: Intake & Output 09/01/19 09/02/19 09/03/19 09/04/19 11:59 11:59 11:59 11:59 Intake Total 200 2598 Output Total 500 Balance 200 2098 Weight 95.1 kg Lab Results: Lab Results-Last 24 Hours 09/02/19 09/04/19 09/04/19 Range/Units 16:38 05:10 05:10 WBC 5.4 (4.0-10.5) K/mm3 RBC 3.87 L (4.1-5.4) M/mm3 Hgb 10.4 L (12.0-16.0) gm/dl Hct 34.1 L (35-47) % MCV 88.1 (78-100) fl MCH 26.9 (26-32) pg MCHC 30.5 L (32-36) g/dl RDW 15.4 H (11.5-14.0) % Plt Count 252 (150-450) K/mm3 MPV 8.9 (7.5-11.0) fl Gran % 66.7 H (36.0-66.0) % Eos # (Auto) 0.06 (0-0.5) Absolute Lymphs (auto) 1.44 (1.0-4.6) Absolute Monos (auto) 0.27 (0.0-1.3) Lymphocytes % 26.8 (24.0-44.0) % Monocytes % 5.0 (0.0-12.0) % Eosinophils % 1.1 (0.00-5.0) % Basophils % 0.4 (0.0-0.4) % Absolute Granulocytes 3.58 (1.4-6.9) Basophils # 0.02 (0-0.4) Sodium 141 (137-145) mmol/L Potassium 4.7 D (3.5-5.1) mmol/L Chloride 111 H (98-107) mmol/L Carbon Dioxide 22 (22-30) mmol/L Anion Gap 12.6 (5-15) MEQ/L BUN 13 (7-17) mg/dL Creatinine 1.11 H (0.52-1.04) mg/dL Estimated GFR 52.8 ML/MIN Glucose 106 (74-106) mg/dL Calcium 8.7 (8.4-10.2) mg/dL Troponin I < 0.012 (0.000-0.034) ng/mL C-Reactive Prot, Quant 0.64 (0.00-10.00) mg/L Radiology Exams: Radiology Procedures Category Date Time Status CHEST 1 VIEW (PORTABLE) Stat Exams 09/02/19 16:15 Completed CHEST WITH CONTRAST [CT] Stat Exams 09/02/19 17:41 Completed Assessment/Plan (1) Chest pain, rule out acute myocardial infarction Current Visit: Yes Status: Acute Assessment & Plan: AL and PE ruled out, sounds like a chronic issue and might be related to port issues. will need to see Dr Cleveland regarding port replacement after discharge Code(s): R07.9 - CHEST PAIN, UNSPECIFIED (2) Dyspnea Current Visit: Yes Status: Acute Code(s): R06.00 - DYSPNEA, UNSPECIFIED (3) UTI (urinary tract infection) Current Visit: Yes Status: Acute Assessment & Plan: gram negative ID pending Code(s): N39.0 - URINARY TRACT INFECTION, SITE NOT SPECIFIED
[2019-09-04] MEDS: TORAdol 30 mg Injection IV PRN (16:21)
[2019-09-04] MEDS: ROCEPHIN 1 Gm-D5w 50 ml Bag** 1 G/50 ML IVPB IV SCH (22:28)
[2019-09-05] MEDS: MORPHINE SULFATE 4 MG INJ IV PRN ×2 (00:17→06:15)
[2019-09-05] MEDS: Zofran 4 MG/2 ML VIAL IV PRN ×2 (00:17→06:16)
[2019-09-05 05:56] LABS: Absolute Neutrophil Ct (ANC) 4.54 (1.4-6.9); BASOPHIL % 0.3 % (0.0-0.4); Basophil (Absolute #) 0.02 (0-0.4); Eosinophil % 0.3 % (0.00-5.0); Eosinophil (Absolute #) 0.02 (0-0.5); Hemoglobin 10.5 gm/dl (12.0-16.0); Lymphocyte (Absolute #) 1.63 (1.0-4.6); Lymphocytes % 25.2 % (24.0-44.0); Mean Cell Volume 87.2 fl (78-100); Mean Corpuscular Hemoglobin 26.9 pg (26-32); Mean Corpuscular Hgb Concent. 30.9 g/dl (32-36); Mean Platelet Volume 9.4 fl (7.5-11.0); Monocyte (Absolute #) 0.26 (0.0-1.3); Neutrophil % 70.2 % (36.0-66.0); Platelet Count 266 K/mm3 (150-450); Red Cell Distribution Width 15.2 % (11.5-14.0); White Blood Count 6.5 K/mm3 (4.0-10.5)
[2019-09-05 06:11] LABS: ANION GAP 11.3 MEQ/L (5-15); Creatinine 1 1.18 mg/dL (0.52-1.04); Potassium 4.4 mmol/L (3.5-5.1)
[2019-09-05 06:49] VITALS: O2SAT 93
[2019-09-05 07:56] VITALS: BP 129/70; PULSE 80
--- NOTE | 2019-09-05 09:11 | PCM.DS ---
Discharge Summary Date of Admission: 09/02/19 22:01 Admitting Physician: HARRY IRIZARRY Primary Care Provider: WAQAR CASTRO Allergies Allergies adhesive Allergy (Mild, Verified 09/05/19 02:40) Blisters codeine [Codeine] Allergy (Mild, Verified 09/02/19 16:41) Nausea and Vomiting Sulfa (Sulfonamide Antibiotics) [Sulfa(Sulfonamide Antibiotics)] Allergy (Mild, Verified 09/02/19 16:41) Nausea and Vomiting acetaminophen [From Percocet] Adverse Reaction (Intermediate, Verified 09/05/19 02:40) Vomiting oxycodone [From Percocet] Adverse Reaction (Intermediate, Verified 09/05/19 02: 40) Vomiting Hospital Summary - Hospital Course Hospital Course: patient was admitted with chest pain, TN was ruled out and cta was negative for PE. she had a swab for covid-19 and was negative. she continues to complain of pain but this has been a somewhat chronic issue with her port moving and being flipped over, states she called the office to get her pain pills refilled and was directed to come to the hospital. she has not required any oxygen, she is tolerating po intake. grew e coli in urine - Vitals & Intake/Output Vital Signs: Vital Signs Temperature 96.1 F 09/05/19 07:53 Pulse Rate 80 09/05/19 07:53 Respiratory Rate 15 09/05/19 07:53 Blood Pressure 129/70 09/05/19 07:53 O2 Sat by Pulse Oximetry 93 L 09/05/19 06:49 Intake & Output: Intake & Output 09/02/19 09/03/19 09/04/19 09/05/19 11:59 11:59 11:59 11:59 Intake Total 200 2598 2444 Output Total 500 Balance 200 2098 2444 Weight 95.1 kg - Lab Result Diagrams: 09/05/19 05:07 09/05/19 05:07 Lab Results-Last 24 Hrs: Lab Results-Last 24 Hours 09/02/19 09/05/19 09/05/19 Range/Units 21:15 05:07 05:07 WBC 6.5 (4.0-10.5) K/mm3 RBC 3.90 L (4.1-5.4) M/mm3 Hgb 10.5 L (12.0-16.0) gm/dl Hct 34.0 L (35-47) % MCV 87.2 (78-100) fl MCH 26.9 (26-32) pg MCHC 30.9 L (32-36) g/dl RDW 15.2 H (11.5-14.0) % Plt Count 266 (150-450) K/mm3 MPV 9.4 (7.5-11.0) fl Gran % 70.2 H (36.0-66.0) % Eos # (Auto) 0.02 (0-0.5) Absolute Lymphs (auto) 1.63 (1.0-4.6) Absolute Monos (auto) 0.26 (0.0-1.3) Lymphocytes % 25.2 (24.0-44.0) % Monocytes % 4.0 (0.0-12.0) % Eosinophils % 0.3 (0.00-5.0) % Basophils % 0.3 (0.0-0.4) % Absolute Granulocytes 4.54 (1.4-6.9) Basophils # 0.02 (0-0.4) Sodium 140 (137-145) mmol/L Potassium 4.4 (3.5-5.1) mmol/L Chloride 110 H (98-107) mmol/L Carbon Dioxide 23 (22-30) mmol/L Anion Gap 11.3 (5-15) MEQ/L BUN 20 H (7-17) mg/dL Creatinine 1.18 H (0.52-1.04) mg/dL Estimated GFR 49.2 ML/MIN Glucose 91 (74-106) mg/dL Calcium 9.0 (8.4-10.2) mg/dL COVID-19 (JALEN) SEE SEPARATE REPORT Micro Results-Entire Visit: Microbiology 09/02/19 17:45 Urine Culture - Final Clean Catch Midstream Escherichia Coli - Procedures and Test Procedures and Tests throughout Hospitalization: Therapy Orders & Screens 09/02/19 20:37 Respiratory Therapy Consult ROUTINE Comment: Reason For Exam: 09/02/19 22:17 Respiratory Therapy Assessment DAILY Comment: 09/03/19 21:26 Oxygen Nasal Cannula 2 lpm Comment: Diagnosis: chest pain r/o, COVID 19 r/o, UTI, SOB Discharge Exam General Appearance: no apparent distress, alert Respiratory Exam: normal breath sounds, lungs clear, No respiratory distress Cardiovascular Exam: regular rate/rhythm, normal heart sounds Gastrointestinal/Abdomen Exam: soft, No tenderness, No mass Extremity Exam: normal inspection, normal range of motion Skin Exam: normal color, warm, dry Final Diagnosis/Problem List - Final Discharge Diagnosis/Problem (1) Chest pain, rule out acute myocardial infarction Current Visit: Yes Status: Acute Code(s): R07.9 - CHEST PAIN, UNSPECIFIED (2) Dyspnea Current Visit: Yes Status: Acute Code(s): R06.00 - DYSPNEA, UNSPECIFIED (3) UTI (urinary tract infection) Current Visit: Yes Status: Acute Code(s): N39.0 - URINARY TRACT INFECTION, SITE NOT SPECIFIED (4) Displacement of central venous catheter (CVC) Current Visit: Yes Status: Acute Assessment & Plan: discussed that not emergent and will need to see Dr Cox to discuss replacement after discharge when able during pandemic Code(s): T82.528A - DISPLACMNT OF CARDIAC AND VASCULAR DEVICES AND IMPLNT, INIT - Discharge Disposition: Home, Self-Care Condition: Fair Prescriptions: New Cephalexin Mh 500 mg [Keflex 500 mg] 500 mg PO TID #15 capsule Continue Omeprazole [Prilosec] 40 mg PO DAILY Carvedilol 3.125 mg [Coreg 3.125 MG] 3.125 mg PO BID Apixaban [Eliquis] 5 mg PO BID Tizanidine HCl 4 mg PO BID PRN PRN PRN Reason: Pain Furosemide [Lasix] 10 mg PO DAILY PRN PRN Reason: swelling Promethazine HCl 25 mg [Phenergan 25 mg] 25 mg PO Q6H PRN PRN PRN Reason: Nausea/Vomiting Levothyroxine Sodium [Synthroid] 300 mcg PO DAILY Albuterol Common Canister [Ventolin Common Canister] 2 puff IH Q6HPRN PRN PRN Reason: Shortness Of Breath Nitroglycerin 0.4 mg SL Q5MIN PRN MR X 3 PRN PRN Reason: Chest Pain Ondansetron [Ondansetron Odt] 4 mg PO Q6HPRN PRN PRN Reason: Nausea/Vomiting Aspirin [[place] Aspirin EC] 81 mg PO DAILY Morphine Sulfate 30 mg PO DAILY PRN PRN #30 tablet MDD 1 PRN Reason: Pain Follow up with: WAQAR CASTRO [Primary Care Provider] - 1 Week ALEJANDRA COX [COURTESY STAFF] - Call for Appointment
== END 2019-09-05 09:59 | disposition home or self-care (01) | DRG 313 ==
LOC: ED 15:58 → MED SURG 22:01
PROVIDERS: ADMIT Family Medicine; ATTEND Family Medicine
DX: R07.9 Chest pain, unspecified (principal); N39.0 Urinary tract infection, site not specified; T85.528A Displacement of other gastrointestinal prosthetic devices, implants and grafts, initial encounter; R06.02 Shortness of breath; B96.20 Unspecified Escherichia coli [E. coli] as the cause of diseases classified elsewhere; I10 Essential (primary) hypertension; T82.528A Displacement of other cardiac and vascular devices and implants, initial encounter; E03.9 Hypothyroidism, unspecified; Z86.718 Personal history of other venous thrombosis and embolism; Z82.49 Family history of ischemic heart disease and other diseases of the circulatory system; Z83.3 Family history of diabetes mellitus; Z79.01 Long term (current) use of anticoagulants; Z79.899 Other long term (current) drug therapy; Z95.0 Presence of cardiac pacemaker
CPT/HCPCS: 36000; 36415; 71045; 71260; 80048; 80053; 81001; 82150; 82728; 83605; 83615; 83690; 83735; 83880; 84484; 85025; 85379; 85610; 86140; 87077; 87086; 87186; 87631; 94762; 96374; 96375; 99284; 99291; U0001; 99000; J0696; J1885; J2270; J2405; J3010; A9270-GY

== ENCOUNTER 2019-09-11 09:29 | Emergency (ER) | payer MEDICARE ==
[2019-09-11] MEDS ORDERED: ROCEPHIN 1 Gm-D5w 50 ml Bag** 1 G/50 ML IVPB IV STA (10:02)
[2019-09-11 10:04] LABS: Absolute Neutrophil Ct (ANC) 4.08 (1.4-6.9); BASOPHIL % 0.6 % (0.0-0.4); Basophil (Absolute #) 0.04 (0-0.4); Eosinophil % 2.3 % (0.00-5.0); Eosinophil (Absolute #) 0.15 (0-0.5); Hematocrit 35.1 % (35-47); Lymphocyte (Absolute #) 1.75 (1.0-4.6); Lymphocytes % 27.2 % (24.0-44.0); Mean Cell Volume 86.7 fl (78-100); Mean Corpuscular Hemoglobin 27.2 pg (26-32); Mean Corpuscular Hgb Concent. 31.3 g/dl (32-36); Monocyte (Absolute #) 0.42 (0.0-1.3); Monocytes % 6.5 % (0.0-12.0); Neutrophil % 63.4 % (36.0-66.0); Platelet Count 211 K/mm3 (150-450); Red Blood Count 4.05 M/mm3 (4.1-5.4); Red Cell Distribution Width 15.9 % (11.5-14.0); White Blood Count 6.4 K/mm3 (4.0-10.5)
[2019-09-11] MEDS ORDERED: ROCEPHIN 1 Gm-D5w 50 ml Bag** 1 G/50 ML IVPB IV ONE (10:06)
[2019-09-11 10:15] LABS: ANION GAP 11.6 MEQ/L (5-15); BILIRUBIN,TOTAL 0.5 mg/dL (0.2-1.3); Creatinine 1 1.22 mg/dL (0.52-1.04); Potassium 3.9 mmol/L (3.5-5.1); Total Protein 7.4 g/dL (6.3-8.2)
--- NOTE | 2019-09-11 10:15 | ERPHSYRPT ---
- History of Present Illness Time Seen by Provider: 09/11/19 10:12 Source: patient Patient Subjective Stated Complaint: Lower back pain. Pt reported ongoing chest/ back pain x2 weeks. Triage Nursing Assessment: Pt presented alert et oriented from outpatient surgery center where she was to have antibiotic infusion for positive UTI. Pt reported experiencing chest pain that radiates to the back and bilateral shoulder blades. Pt reported aggrevating factors of movement with alleviating factor of rest. Reported taking ASA the morning before. Symmetrical chest expansion. Lungs clear with adequate airflow. Abdomen obese non-tender. Pt denied nausea/vomiting/diaphoresis. Reports taking six of her muscle relaxers without relief. No noted dependent edema. Physician History: Lower back pain. Pt reported ongoing chest/back pain x2 weeks. Pt presented from outpatient surgery center where she was to have antibiotic infusion for positive UTI. Pt reported experiencing chest pain that radiates to the back and bilateral shoulder blades. Pt reported aggrevating factors of movement with alleviating factor of rest. Reported taking ASA the morning before. Symmetrical chest expansion. Lungs clear with adequate airflow. Abdomen obese non-tender. Pt denied nausea/vomiting/diaphoresis. Reports taking six of her muscle relaxers without relief. No noted dependent edema. Timing/Duration: week(s) Activities at Onset: none Quality: stabbing Location: substernal, central, back Chest Pain Radiation: back Severity of Pain-Max: mild Severity of Pain-Current: mild Modifying Factors: Improves With: nothing Nitro Today/Relief: no nitro taken today Aspirin Treatment Today: no aspirin today Associated Symptoms: denies symptoms Prior Chest Pain/Cardiac Workup: no prior chest pain Allergies/Adverse Reactions: adhesive Allergy (Mild, Verified 09/11/19 09:52) Blisters codeine [Codeine] Allergy (Mild, Verified 09/11/19 09:52) Nausea and Vomiting Sulfa (Sulfonamide Antibiotics) [Sulfa(Sulfonamide Antibiotics)] Allergy (Mild, Verified 09/11/19 09:52) Nausea and Vomiting acetaminophen [From Percocet] Adverse Reaction (Intermediate, Verified 09/11/19 09:52) Vomiting oxycodone [From Percocet] Adverse Reaction (Intermediate, Verified 09/11/19 09: 52) Vomiting Home Medications: Omeprazole [Prilosec] 40 mg PO DAILY 11/24/11 [History] Carvedilol 3.125 mg [Coreg 3.125 MG] 3.125 mg PO BID 06/08/15 [History] Apixaban [Eliquis] 5 mg PO BID 02/11/17 [History] Tizanidine HCl 4 mg PO BID PRN PRN 11/10/17 [History] Furosemide [Lasix] 10 mg PO DAILY PRN 03/09/18 [History] Promethazine HCl 25 mg [Phenergan 25 mg] 25 mg PO Q6H PRN PRN 01/14/19 [ History] Albuterol Common Canister [Ventolin Common Canister] 2 puff IH Q6HPRN PRN 04/29/19 [History] Levothyroxine Sodium [Synthroid] 300 mcg PO DAILY 04/29/19 [History] Nitroglycerin 0.4 mg SL Q5MIN PRN MR X 3 PRN 04/29/19 [History] Ondansetron [Ondansetron Odt] 4 mg PO Q6HPRN PRN 04/29/19 [History] Aspirin [[place] Aspirin EC] 81 mg PO DAILY 05/13/19 [History] Hx Tetanus, Diphtheria Vaccination/Date Given: Yes Hx Influenza Vaccination/Date Given: Yes Hx Pneumococcal Vaccination/Date Given: Yes Immunizations Up to Date: Yes Travel Risk - International Travel Have you traveled outside of the country in past 3 weeks: No Have you or anyone close to you been diagnosed with or: No Do your reside in a community with a known COVID-19 case?: Yes If Yes where:: [facility] - Coronavirus Screening Has patient experienced Coronavirus symptoms: No - Review of Systems Constitutional: No Fever, No Chills Eyes: No Symptoms Ears, Nose, & Throat: No Symptoms Respiratory: No Cough, No Dyspnea Cardiac: No Chest Pain, No Edema, No Syncope Abdominal/Gastrointestinal: No Abdominal Pain, No Nausea, No Vomiting, No Diarrhea Genitourinary Symptoms: No Dysuria Musculoskeletal: No Back Pain, No Neck Pain Skin: No Rash Neurological: No Dizziness, No Focal Weakness, No Sensory Changes Psychological: No Symptoms Endocrine: No Symptoms All Other Systems: Reviewed and Negative - Past Medical History Pertinent Past Medical History: Yes Neurological History: Stroke ENT History: No Pertinent History Cardiac History: Arrhythmia Respiratory History: No Pertinent History Endocrine Medical History: Hypothyroidism Musculoskeletal History: Arthritis, Degenerative Disk Disease GI Medical History: GERD, Hernia, Other History: Other Psycho-Social History: No Pertinent History Female Reproductive Disorders: Endometriosis Other Medical History: Hypotension. PACEMAKER implanted 10 years ago. - Past Surgical History Past Surgical History: Yes Neuro Surgical History: No Pertinent History Cardiac: Cardiac Catheterization, Internal Defibrillator, Pacemaker Respiratory: No Pertinent History Gastrointestinal: Appendectomy, Cholecystectomy, Colon Resection, Hernia Repair , Other Genitourinary: No Pertinent History Musculoskeletal: Orthopedic Surgery Female Surgical History: Hysterectomy Other Surgical History: THYROID REMOVED, 40% and 50% blockages found with last heart cath about 4 years ago. ankle surgery d/t break,ileostomy, CVL port removed and replaced, PICC line placed for CVL surgery September 2015. ostomy repair due to blockage 09/02, back surgery and 4 I&D september and october and november 2017. 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 TLIF fused discs in back. OCTOBER 2018 CAROTIDECTOMY AND LYMPH NODE REMOVAL ON RIGHT SIDE. Right Parotid gland removed. - Social History Smoking Status: Never smoker Exposure to second hand smoke: No Alcohol Use: None Drug Use: none Patient Lives Alone: No Significant Family History: heart disease, cancer, diabetes - Nursing Vital Signs Nursing Vital Signs: Initial Vital Signs Temperature 97.9 F 09/11/19 09:29 Pulse Rate 74 09/11/19 09:29 Respiratory Rate 18 09/11/19 09:29 Blood Pressure 140/89 09/11/19 09:29 O2 Sat by Pulse Oximetry 100 09/11/19 09:29 Pain Scale Pain Intensity 7 - Physical Exam General Appearance: no apparent distress, alert Eye Exam: PERRL/EOMI, eyes nml inspection Ears, Nose, Throat Exam: normal ENT inspection, moist mucous membranes Neck Exam: normal inspection, non-tender, supple Respiratory Exam: normal breath sounds, lungs clear, No respiratory distress Cardiovascular Exam: regular rate/rhythm, normal heart sounds, No edema Gastrointestinal/Abdomen Exam: soft, No tenderness, No mass Back Exam: normal inspection, No CVA tenderness, No vertebral tenderness Extremity Exam: normal inspection, normal range of motion Neurologic Exam: alert, oriented x 3, cooperative, normal mood/affect, nml cerebellar function, sensation nml, No motor deficits Skin Exam: normal color, warm, dry Lymphatic Exam: No adenopathy SpO2: 100 - Course Nursing assessment & vital signs reviewed: Yes - Radiology Exams Chest X-ray Interpretation: Reviewed by me, Negative Ordered Tests: Active Orders 24 hr Category Date Time Status Manager Highway STAT Care 09/11/19 09:51 Active EKG-ER Only STAT Care 09/11/19 09:50 Active IV Insertion STAT Care 09/11/19 09:50 Active CHEST 1 VIEW (PORTABLE) Stat Exams 09/11/19 09:50 Taken CBC W DIFF Stat Lab 09/11/19 10:01 Completed CMP Stat Lab 09/11/19 10:01 Completed TROPONIN Q3H Lab 09/11/19 10:01 Completed TROPONIN Q3H Lab 09/11/19 13:00 Ordered TROPONIN Q3H Lab 09/11/19 16:00 Ordered TROPONIN Q3H Lab 09/11/19 19:00 Ordered TROPONIN Q3H Lab 09/11/19 22:00 Ordered Medication Summary Discontinued Medications Generic Name Dose Route Start Last Admin Trade Name Freq PRN Reason Stop Dose Admin Ceftriaxone Sodium/Dextrose 1 g in 50 mls @ 100 mls/hr 09/11/19 10:02 10:18 Rocephin 1 Gm-D5w 50 Ml Bag IV 09/11/19 10:31 100 mls/hr STAT STA Administration Ceftriaxone Sodium/Dextrose Confirm 09/11/19 10:06 Rocephin 1 Gm-D5w 50 Ml Bag Administered 09/11/19 10:07 Dose 1 g in 50 mls @ ud IV .STK-MED ONE Sodium Chloride Confirm 09/11/19 10:06 Sodium Chloride 0.9% 50 Ml Administered 09/11/19 10:07 Dose 50 mls @ ud IV .STK-MED ONE Ketorolac Tromethamine 30 mg 09/11/19 10:35 Toradol 30 Mg Injection IV 09/11/19 10:36 STAT ONE Lab/Rad Data: Laboratory Result Diagrams 09/11/19 10:01 09/11/19 10:01 Laboratory Results 09/11/19 09/11/19 09/11/19 Range/Units 10:01 10:01 10:01 WBC 6.4 (4.0-10.5) K/mm3 RBC 4.05 L (4.1-5.4) M/mm3 Hgb 11.0 L (12.0-16.0) gm/dl Hct 35.1 (35-47) % MCV 86.7 (78-100) fl MCH 27.2 (26-32) pg MCHC 31.3 L (32-36) g/dl RDW 15.9 H (11.5-14.0) % Plt Count 211 (150-450) K/mm3 MPV 9.0 (7.5-11.0) fl Gran % 63.4 (36.0-66.0) % Eos # (Auto) 0.15 (0-0.5) Absolute Lymphs (auto) 1.75 (1.0-4.6) Absolute Monos (auto) 0.42 (0.0-1.3) Lymphocytes % 27.2 (24.0-44.0) % Monocytes % 6.5 (0.0-12.0) % Eosinophils % 2.3 (0.00-5.0) % Basophils % 0.6 (0.0-0.4) % Absolute Granulocytes 4.08 (1.4-6.9) Basophils # 0.04 (0-0.4) Sodium 141 (137-145) mmol/L Potassium 3.9 (3.5-5.1) mmol/L Chloride 108 H (98-107) mmol/L Carbon Dioxide 26 (22-30) mmol/L Anion Gap 11.6 (5-15) MEQ/L BUN 18 H (7-17) mg/dL Creatinine 1.22 H (0.52-1.04) mg/dL Estimated GFR 47.3 ML/MIN Glucose 100 (74-106) mg/dL Calcium 9.0 (8.4-10.2) mg/dL Total Bilirubin 0.50 (0.2-1.3) mg/dL AST 32 (14-36) U/L ALT 10 (0-35) U/L Alkaline Phosphatase 113 (38-126) U/L Troponin I < 0.012 (0.000-0.034) ng/mL Serum Total Protein 7.4 (6.3-8.2) g/dL Albumin 4.0 (3.5-5.0) g/dL - Progress Progress: improved Air Movement: good Blood Culture(s) Obtained: No Antibiotics given: Yes Counseled pt/family regarding: lab results, diagnosis, need for follow-up, rad results - Departure Departure Disposition: Home Clinical Impression: Chest pain of unknown etiology Back ache Qualifiers: Back pain location: low back pain Chronicity: chronic Back pain laterality: unspecified Sciatica presence: without sciatica Qualified Code(s): M54.5 - Low back pain; G89.29 - Other chronic pain UTI (urinary tract infection) Qualifiers: Urinary tract infection type: acute pyelonephritis Qualified Code(s): N10 - Acute pyelonephritis Condition: Stable Critical Care Time: No Referrals: WAQAR CASTRO [Primary Care Provider] - Instructions: Atypical Chest Pain Additional Instructions: STELLA CRANE LYN was seen on 09/11/19 n the Emergency Room. At that time you were treated for an emergent condition, during your visit Laboratory, Radiology and/or other procedures may have been ordered. It is very important that you follow-up with your Primary Care Physician WAQAR CASTRO within the next 24-48 hours to review your Emergency Room visit and the final results of testing that was ordered. Some test results such as Urine Cultures, Blood Cultures, and other cultures if ordered will not be finalized for 24-48 hours. If you do not have a Primary Care Provider please call the medical records department at [phone] ext [phone] to obtain a copy of your results or you may sign into our patient portal to obtain these results by visiting us @ [email or web address] and completing the following steps: 1. Click on the Patient Portal link 2. Click the Patient Self Enrollment Link to complete the enrollment form and entering your 3. Once the enrollment form is completed you will receive an email with a temporary ID and password at the email address you provided. 4. Next choose a user name and password. Your user name must be at least 4 characters long and your password must be at least 4 characters long. 5. Choose a security question from the list and provide your answer to the question. If you already have signed into the Health Portal you may access your Health Care Information 09/12 by the following steps: 1. Login to our website @ [email or web address] 2. Enter your original user name and password. FAQS The [facility] Health Portal is an online tool that contains your Lab Results, Radiology Reports, Visit History, Discharge Instructions and Health Summary Lab and Radiology Results will not be available for 72 hours on the portal. The Portal is a secure site, passwords are encryted and URLs are re-written so they cannot be copied and pasted. You and authorized family members are the only ones who can access your Portal. Also there is a timeout feature that protects your information if you leave the Portal page open. If you have technical difficulty please use the Contact Us link on the page this will allow you to submit any questions you have regarding the Portal or you may contact the Medical Record Department at [phone] ext [phone]. STELLA CRANE was seen on 09/11/19 n the Emergency Room. At that time you were treated for an emergent condition, during your visit Laboratory, Radiology and/or other procedures may have been ordered. It is very important that you follow-up with your Primary Care Physician WAQAR CASTRO within the next 24-48 hours to review your Emergency Room visit and the final results of testing that was ordered. Some test results such as Urine Cultures, Blood Cultures, and other cultures if ordered will not be finalized for 24-48 hours. If you do not have a Primary Care Provider please call the medical records department at [phone] ext [phone] to obtain a copy of your results or you may sign into our patient portal to obtain these results by visiting us @ [email or web address] and completing the following steps: 1. Click on the Patient Portal link 2. Click the Patient Self Enrollment Link to complete the enrollment form and entering your 3. Once the enrollment form is completed you will receive an email with a temporary ID and password at the email address you provided. 4. Next choose a user name and password. Your user name must be at least 4 characters long and your password must be at least 4 characters long. 5. Choose a security question from the list and provide your answer to the question. If you already have signed into the Health Portal you may access your Health Care Information 09/12 by the following steps: 1. Login to our website @ [email or web address] 2. Enter your original user name and password. FAQS [facility] Health Portal is an online tool that contains your Lab Results, Radiology Reports, Visit History, Discharge Instructions and Health Summary Lab and Radiology Results will not be available for 72 hours on the portal. The Portal is a secure site, passwords are encryted and URLs are re-written so they cannot be copied and pasted. You and authorized family members are the only ones who can access your Portal. Also there is a timeout feature that protects your information if you leave the Portal page open. If you have technical difficulty please use the Contact Us link on the page this will allow you to submit any questions you have regarding the Portal or you may contact the Medical Record Department at [phone] ext [phone]. Discharge/Care Plan STELLA CRANE was seen on 09/11/19 in the Emergency Room. The patient was counseled regarding Diagnosis,Lab results, Imaging studies, need for follow up and when to return to the Emergency Room. Prescriptions given: Discharge Note I have spoken with the patient and/or caregivers. I have explained the patient' s condition, diagnosis and treatment plan based on the information available to me at this time. I have answered the patient's and/or caregiver's questions and addressed any concerns. The patient and/or caregivers have as good understanding of the patient's diagnosis, condition and treatment plan as can be expected at this point. The vital signs have been stable. The patient's condition is stable and appropriate for discharge from the emergency department. The patient will pursue further outpatient evaluation with the primary care physician or other designated or consulting physician as outlined in the discharge instructions. The patient and/or caregivers are agreeable to this plan of care and follow-up instructions have been explained in detail. The patient and/or caregivers have received these instruction. The patient/and or caregivers are aware that any significant change in condition or worsening of symptoms should prompt an immediate return to this or the closest emergency department or call 911.
[2019-09-11] MEDS ORDERED: TORAdol 30 mg Injection IV ONE (10:35)
[2019-09-11] MEDS ORDERED: TORAdol 30 mg Injection ONE (10:42)
[2019-09-11] MEDS ORDERED: Norflex 60 MG/2 ML IV ONE (10:45)
[2019-09-11 10:54] VITALS: O2SAT 97
[2019-09-11 11:10] VITALS: BP 124/62; PULSE 63
[2019-09-11 11:12] LABS: Appearance CLEAR (CLEAR); Bilirubin NEGATIVE (NEGATIVE); Blood NEGATIVE Ery/ul (0-5); Glucose NEGATIVE (NEGATIVE); Ketones NEGATIVE (NEGATIVE); Leukocyte Esterase NEGATIVE (NEGATIVE); Nitrite NEGATIVE (NEGATIVE); Protein,Urine Dip NEGATIVE (Negative); Specific Gravity 1.023 (1.005-1.025); Urobilinogen NEGATIVE mg/dL (0-1)
--- NOTE | 2019-09-11 19:01 | XRAY ---
Indication: Chest pain. Comparison: September 02, 2019. Portable chest remains clear. Heart is not enlarged again with left AICD and nonfunctioning right Port-A-Cath. No new/acute findings.
== END 2019-09-11 11:18 | disposition home or self-care (01) ==
LOC: ED 09:29
DX: R07.9 Chest pain, unspecified (principal); M54.5 Low back pain; N39.0 Urinary tract infection, site not specified; Z79.01 Long term (current) use of anticoagulants; Z79.899 Other long term (current) drug therapy; E03.9 Hypothyroidism, unspecified; K21.9 Gastro-esophageal reflux disease without esophagitis; Z86.73 Personal history of transient ischemic attack (TIA), and cerebral infarction without residual deficits; Z95.810 Presence of automatic (implantable) cardiac defibrillator
CPT/HCPCS: 36000; 36415; 71045; 80053; 81001; 84484; 85025; 87086; 93005; 93041; 96365; 96374; 96375; 99211; 99284; J0696; J1885

== ENCOUNTER 2019-09-20 07:52 | Day surgery (SDC) | payer MEDICARE ==
[2019-09-20] MEDS ORDERED: Lactated Ringers 1,000 ML IV ONE (08:19)
[2019-09-20] MEDS ORDERED: XYLOCAINE 1% HCL 20 ML MDV ONE (08:19)
[2019-09-20] MEDS ORDERED: Lactated Ringers 1,000 ML IV SCH (08:30)
--- NOTE | 2019-09-20 08:51 | HP ---
DATE OF SURGERY: 09/20/2019 HISTORY OF PRESENT ILLNESS: The patient is 64 year-old with multiple medical problems. She had a port placed a few months ago that was in good position documented with fluoroscopy with the tail of the catheter in the superior vena cava. Somewhere along the line they had trouble accessing the port. They ended up doing an x-ray that said it was out of the cava. We did not have the films in the office. Port-A-Gram was ordered. When the film was finally able to be identified, it appeared the catheter was coiled in the port pocket and somehow pulled all the way back. Whether the patient had some unusual motion is unclear as it was in very good position at the time of original placement. PAST MEDICAL HISTORY: She has significant chronic medical problems. History of diabetes, asthma, atrial fibrillation, deep venous thrombosis, pulmonary embolism in the past. Asthma, chronic obstructive pulmonary disease, history of urinary tract infection in the past and on chronic anticoagulant. She had cardiac arrest in the past. PAST SURGICAL HISTORY: She had a pacemaker in the past. Tubal ligation. She had port placements in the past. She had bowel surgery by Dr. Bella in the past. She had hysterectomy, cholecystectomy, orthopedic surgery, finger fracture and thyroid surgery, pacemaker in the past. MEDICATIONS: Includes nasal decongestant spray, generic cough suppressant, aspirin, morphine extended release, cyclobenzaprine, Furosemide, atorvastatin, metformin, potassium chloride, prednisone, carvedilol, Carafate, tizanidine, albuterol sulfate, Synthroid. She was on some Eliquis in the past. Victoza. She had been on some Coumadin in the past. ALLERGIES: SULFA. CODEINE. PERCOCET. TAPE. FAMILY HISTORY: Negative in regards to this problem. SOCIAL HISTORY: No alcohol abuse. REVIEW OF SYSTEMS: Fourteen systems reviewed. No chest pain or palpitations. Other systems negative or noncontributory as above and per preadmission questionnaire. PHYSICAL EXAMINATION: GENERAL: No acute distress. HEENT: Sclerae nonicteric. NECK: No JVD. CHEST: Equal excursion, nonlabored breathing. CVS: Regular rate and rhythm. ABDOMEN: Soft. EXTREMITIES: No cyanosis. NEURO: Alert, moving extremities symmetrically. No gross motor deficits noted. IMPRESSION: Dysfunctional port somehow limiting access or the patient's unknown motion or catheter has been completely pulled out of the vein and is coiled in the port pocket. Because of that the port needs to be removed and replaced. General risk of bleeding or infection, risk of hematoma or seroma formation, risk of thrombosis or pneumothorax, risk of arterial injury, risk of major venous tear, possibility of inability to get back in the vein to place the port, general risk of anesthesia, deep venous thrombosis, pulmonary embolism, pneumonia, risk of cardiopulmonary event but not limited to. She is agreeable, will plan on removing the old dysfunctional port and placing a new port as an outpatient.
[2019-09-20] MEDS ORDERED: CEFAZOLIN 2 GM-D5W BAG** 2 GM/50 ML ML IV SCH (09:00)
[2019-09-20] MEDS ORDERED: Versed 2 MG/2 ML Injection ONE (09:11)
[2019-09-20] MEDS ORDERED: DIPRIVAN 200 MG/20 ML IV ONE ×3 (09:11→09:50)
[2019-09-20] MEDS ORDERED: PHENYLEPHRINE HCL ONE (09:31)
[2019-09-20] MEDS ORDERED: SUBLIMAZE 100 MCG/2 ML ONE (10:22)
--- NOTE | 2019-09-20 10:35 | XRAY ---
Indication: Port placement. Intraoperative fluoroscopy was provided for 3 seconds. Single digital spot image submitted for interpretation demonstrates right Port-A-Cath with tip projecting over the SVC. Correlate with intraoperative findings/report.
[2019-09-20] MEDS ORDERED: Zofran 4 MG/2 ML VIAL IV STA (10:58)
[2019-09-20 11:04] VITALS: O2SAT 97
[2019-09-20 11:43] VITALS: BP 140/78; PULSE 69
--- NOTE | 2019-09-20 13:25 | OP ---
SURGERY DATE/TIME: 09/20/2019 0910 PREOPERATIVE DIAGNOSIS: Dysfunctional Port-A-Cath, need for assistant terminal manager IV access for IV treatments. POSTOPERATIVE DIAGNOSIS: Dysfunctional Port-A-Cath, need for assistant terminal manager IV access for IV treatments. PROCEDURES: 1) Removal of dysfunctional Port-A-Cath. 2) Excision of old Port pocket. 3) Placement of new tunnel Port-A-Cath right subclavian vein with C-arm fluoroscopy. SURGEON: Dr. Juan M Cleveland. ANESTHESIA: General. ESTIMATED BLOOD LOSS: Minimal. INDICATIONS: As noted above. Risks and benefits explained in detail and not limited to and consent obtained. It should be noted that her prior port was in excellent position back in June. Somehow the catheter had been completely pulled out of the vein and was coiled in the port pocket. Whether she had been infiltrated or had some unusual maneuver when she was sleeping, it was felt that it needed to be removed and the pocket excised and a new port placed. DESCRIPTION OF PROCEDURE AND FINDINGS: The patient is taken to the operating room. General anesthesia introduced. Prepped and draped in usual sterile fashion. After official time out and no disagreement with planned procedure, 1% lidocaine local infiltrated. In Trendelenburg position an 18 gauge cannulation needle inserted on first pass. Good dark nonpulsatile venous return. Guide wire initially bounced medially and then came back towards the subclavian required removing the wire and new guide wire placed without difficulty and confirmed down the superior vena cava along the pacemaker/pacemaker defibrillator leads. Once this was accomplished the pocket area and tunnel track were anesthetized with 1% lidocaine local. Old scar was excised. Dissection carried down. Her old port catheter was basically coiled in the pocket completely out of the vein. The sutures were still intact. They were freed and removed. Port with catheter passed off. The port itself was quite functional. At this point it was felt the best option to excise the old port pocket. It was carefully excised and passed off. New port was secured to the chest wall with bites of the 3-0 Prolene. The new catheter was tunneled down from cannula stab wound down to the port pocket area with the dilator breakaway sheath easily fed over the guide wire. Catheter fed down the breakaway sheath. The tip was in the distal superior vena cava right atrial area on C-arm fluoroscopy. Lung judge noted to be up bilaterally. The catheter is cut to the appropriate length, snapped on the port with the hub. The port aspirated dark nonpulsatile venous return, flushed with heparinized saline with ease. Film had shown good location of the Port-A-Cath. Lung judge noted to be up bilaterally. It was felt no further x-rays were necessary. The subcu port pocket was carefully secured around the port hub to minimize the patient somehow pulling her catheter all the way back out of the vein. The subcu approximated around the port as well as possible with interrupted 3-0 Vicryl. Skin closed with 4-0 Vicryl. Cannulation stab wound closed with 4-0 Vicryl. Steri-Strips and sterile dressing applied. The patient tolerated the procedure well. There were no immediate complications. There was no family available to discuss the findings with out in the waiting room. The tip was in good location. Lungs up bilaterally. It was felt no further x-rays were necessary. The patient tolerated the procedure well. I will see her back in the office next week.
== END 2019-09-20 11:50 | disposition home or self-care (01) ==
LOC: SDC 07:52
PROVIDERS: ATTEND Surgery
DX: T82.524A Displacement of infusion catheter, initial encounter (principal); E11.9 Type 2 diabetes mellitus without complications; J44.9 Chronic obstructive pulmonary disease, unspecified; Z86.711 Personal history of pulmonary embolism; Z79.899 Other long term (current) drug therapy; Z79.01 Long term (current) use of anticoagulants
CPT/HCPCS: 77001; 82962; C1788; J0690; J1642; J2250; J2370; J2405; J2704; J3010

== ENCOUNTER 2019-10-14 09:42 | Emergency (ER) | payer MEDICARE ==
--- NOTE | 2019-10-14 09:57 | ERPHSYRPT ---
- History of Present Illness Time Seen by Provider: 10/14/19 09:56 Source: patient Exam Limitations: no limitations Patient Subjective Stated Complaint: pt here for swelling and pain to both legs for a week now, pt is worried about a blood clot. no sob Triage Nursing Assessment: pt alert, arrived per wc, pt was able to drive self here,resp easy, skin w/d/p. has slight swelling to lower les, no reddness or warmth Physician History: This is a 64-year-old white female who has a history of multiple cardiac issues including arrhythmia, congestive heart failure, coronary artery disease. She has a pacemaker/defibrillator in place. She also has a history of DVT and pulmonary embolus in the past. Patient has chronic venous stasis disease. Patient is diabetic and has a history of hypothyroidism. Patient presents with bilateral lower extremity swelling and burning type pain in both lower legs. Swelling is worse on her left leg. Patient is concerned about possible DVT. She is on both Eliquis and aspirin. patient denies chest pain and denies shortness of breath. Method of Injury: other (No injury) Occurred: other (No injury. Symptoms for 1 week) Quality: burning Severity of Pain-Max: mild Severity of Pain-Current: mild Lower Extremities Pain: leg: bilateral, knee: bilateral, ankle: bilateral Modifying Factors: Improves With: movement Associated Symptoms: none Allergies/Adverse Reactions: adhesive Allergy (Mild, Verified 10/14/19 09:56) Blisters codeine [Codeine] Allergy (Mild, Verified 10/14/19 09:56) Nausea and Vomiting Sulfa (Sulfonamide Antibiotics) [Sulfa(Sulfonamide Antibiotics)] Allergy (Mild, Verified 10/14/19 09:56) Nausea and Vomiting acetaminophen [From Percocet] Adverse Reaction (Intermediate, Verified 10/14/19 09:56) Vomiting iron Adverse Reaction (Intermediate, Verified 10/14/19 09:56) Nausea oxycodone [From Percocet] Adverse Reaction (Intermediate, Verified 10/14/19 09: 56) Vomiting Home Medications: Omeprazole [Prilosec] 40 mg PO DAILY 11/24/11 [History] Tizanidine HCl 4 mg PO BID PRN PRN 11/10/17 [History] Furosemide [Lasix] 10 mg PO DAILY PRN 03/09/18 [History] Promethazine HCl 25 mg [Phenergan 25 mg] 25 mg PO Q6H PRN PRN 01/14/19 [ History] Albuterol Common Canister [Ventolin Common Canister] 2 puff IH Q6HPRN PRN 04/29/19 [History] Levothyroxine Sodium [Synthroid] 300 mcg PO BID 04/29/19 [History] Nitroglycerin 0.4 mg SL Q5MIN PRN MR X 3 PRN 04/29/19 [History] Ondansetron [Ondansetron Odt] 4 mg PO Q6HPRN PRN 04/29/19 [History] Aspirin [[place] Aspirin EC] 81 mg PO DAILY 05/13/19 [History] Famotidine 20 mg [Pepcid 20 MG] 40 mg PO DAILY 09/16/19 [History] Metoprolol Succinate 25 mg PO DAILY 09/20/19 [History] Hx Tetanus, Diphtheria Vaccination/Date Given: Yes Hx Influenza Vaccination/Date Given: Yes Hx Pneumococcal Vaccination/Date Given: Yes Immunizations Up to Date: Yes Travel Risk - International Travel Have you traveled outside of the country in past 3 weeks: No Have you or anyone close to you been diagnosed with or: No Do your reside in a community with a known COVID-19 case?: Yes If Yes where:: [place] - Coronavirus Screening Has patient experienced Coronavirus symptoms: No - Review of Systems Constitutional: No Symptoms Eyes: No Symptoms Ears, Nose, & Throat: No Symptoms Respiratory: No Symptoms Cardiac: No Symptoms Abdominal/Gastrointestinal: No Symptoms Genitourinary Symptoms: No Symptoms Musculoskeletal: No Symptoms Skin: Other (Venous stasis skin changes bilateral ankles. Burning sensation to both lower extremities.) Psychological: No Symptoms Endocrine: No Symptoms Hematologic/Lymphatic: No Symptoms Immunological/Allergic: No Symptoms All Other Systems: Reviewed and Negative - Past Medical History Pertinent Past Medical History: Yes Neurological History: Stroke ENT History: No Pertinent History Cardiac History: Angina, Arrhythmia, Congestive Heart Failure, Coronary Artery Disease, Deep Vein Thrombosis, High Cholesterol Respiratory History: Asthma, Pulmonary Embolism Endocrine Medical History: Diabetes Type II, Hypothyroidism Musculoskeletal History: Arthritis, Degenerative Disk Disease GI Medical History: GERD, Hernia, Other History: Other Psycho-Social History: No Pertinent History Female Reproductive Disorders: Endometriosis Other Medical History: Hypotension. PACEMAKER implanted 10 years ago and again may 2019 - Past Surgical History Past Surgical History: Yes Neuro Surgical History: No Pertinent History Cardiac: Cardiac Catheterization, Internal Defibrillator, Pacemaker, Other Respiratory: No Pertinent History Gastrointestinal: Appendectomy, Cholecystectomy, Colon Resection, Hernia Repair , Other Genitourinary: No Pertinent History Musculoskeletal: Orthopedic Surgery Female Surgical History: Hysterectomy Other Surgical History: THYROID REMOVED, 40% and 50% blockages found with last heart cath about 4 years ago. ankle surgery d/t break,ileostomy, CVL port removed and replaced, PICC line placed for CVL surgery September 2015. ostomy repair due to blockage 09/02, back surgery and 4 I&D september and october and november 2017. 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 TLIF fused discs in back. OCTOBER 2018 CAROTIDECTOMY AND LYMPH NODE REMOVAL ON RIGHT SIDE. Right Parotid gland removed. "filter for blood clots 2018" - Social History Smoking Status: Never smoker Exposure to second hand smoke: No Alcohol Use: None Drug Use: none Patient Lives Alone: No Significant Family History: heart disease, cancer, diabetes - Female History Hx Last Menstrual Period: post Hx Now: No - Nursing Vital Signs Nursing Vital Signs: Initial Vital Signs Temperature 98.3 F 10/14/19 09:49 Pulse Rate 65 10/14/19 09:49 Respiratory Rate 20 10/14/19 09:49 Blood Pressure 138/80 10/14/19 09:49 O2 Sat by Pulse Oximetry 100 10/14/19 09:49 Pain Scale Pain Intensity 8 - Physical Exam General Appearance: no apparent distress, alert, anxiety Eyes, Ears, Nose, Throat Exam: normal ENT inspection, moist mucous membranes Neck Exam: normal inspection, non-tender, supple, full range of motion Cardiovascular/Respiratory Exam: chest non-tender, normal breath sounds, regular rate/rhythm, heart sounds normal Gastrointestinal/Abdominal Exam: non-tender, soft, No guarding, No tenderness Back Exam: normal inspection, normal range of motion, No CVA tenderness, No vertebral tenderness Hips Exam: bilateral: non-tender, normal inspection, normal range of motion, no evidence of injury Legs Exam: bilateral leg: normal inspection, normal range of motion, no evidence of injury, pain (Burning sensation to bilateral lower extremities.), swelling (Left worse than right overall mild swelling on both sides) Knees Exam: bilateral knee: non-tender, normal inspection, normal range of motion, no evidence of injury, bone tenderness Ankle Exam: bilateral ankle: normal inspection, normal range of motion, no evidence of injury, pain (Sensation of burning), swelling (Mild swelling at ankles left worse than right) Foot Exam: bilateral foot: non-tender, normal inspection, normal range of motion , no evidence of injury Neuro/Tendon Exam: normal sensation, normal motor functions, normal tendon functions Mental Status Exam: alert, oriented x 3, cooperative Skin Exam: warm, dry, other (Chronic venous stasis skin changes at bilateral ankles left worse than right) SpO2 Interpretation: normal SpO2: 100 O2 Delivery: Room Air - Course Nursing assessment & vital signs reviewed: Yes Ordered Tests: Active Orders 24 hr Category Date Time Status Isolation, Initiate & Maintain Q4H Care 10/14/19 09:55 Active VENOUS BILATERAL EXTREMITY [US] Stat Exams 10/14/19 09:57 Taken - Progress Progress: unchanged Progress Note: 10/14/19 10:46 negative venous doppler bilat lower ext Counseled pt/family regarding: diagnosis, need for follow-up, rad results - Departure Departure Disposition: Home Clinical Impression: Leg pain, bilateral Condition: Stable Critical Care Time: No Referrals: WAQAR CASTRO [Primary Care Provider] - Additional Instructions: Follow up with primary doctor and scoop operator for further management
--- NOTE | 2019-10-14 10:57 | XRAY ---
Indication: Bilateral leg pain and swelling. History bilateral DVTs. Two-dimensional sonogram and color Doppler imaging of the major venous vessels of the left and right leg was performed. Comparison: May 02, 2019. No thrombus seen in the examined deep venous vessels of the left and right leg including greater saphenous vein. Veins demonstrate normal compressibility. Venous waveforms are normal with and without augmentation. Impression: Left and right legs now negative for DVT.
[2019-10-14 10:58] VITALS: BP 135/83; PULSE 72; O2SAT 98
== END 2019-10-14 10:58 | disposition home or self-care (01) ==
LOC: ED 09:42
DX: M79.662 Pain in left lower leg (principal); M79.661 Pain in right lower leg; M79.89 Other specified soft tissue disorders; I50.9 Heart failure, unspecified; I25.10 Atherosclerotic heart disease of native coronary artery without angina pectoris; Z95.810 Presence of automatic (implantable) cardiac defibrillator; Z86.718 Personal history of other venous thrombosis and embolism; Z86.711 Personal history of pulmonary embolism; I87.8 Other specified disorders of veins; E03.9 Hypothyroidism, unspecified; Z79.01 Long term (current) use of anticoagulants
CPT/HCPCS: 36415; 73562; 73590; 73610; 80053; 82607; 82746; 84550; 85025; 93970; 99283

== ENCOUNTER 2019-12-20 11:14 | Emergency (ER) | payer MEDICARE ==
[2019-12-20] MEDS ORDERED: BABY ASPIRIN 81 MG CHEW PO ONE (11:20)
--- NOTE | 2019-12-20 11:21 | ERPHSYRPT ---
- History of Present Illness Time Seen by Provider: 12/20/19 11:20 Historian: patient, family Exam Limitations: no limitations Physician History: This is a 64-year-old white female who has a history of myocardial infarction and coronary artery disease. Her senior data modeler is Dr. Duarte. The patient had no chest pain prior to placement of a PICC line that was done this morning. Patient was discharged to home and they went to a store and did some shopping when patient began having some chest pain. Patient has been been in this emergency department several times for chest pain. Patient has back injections scheduled for tomorrow. We will perform a cardiac work-up on her and contact Dr. Duarte once her results have returned. Timing/Duration: today Activities at Onset: none Quality: sharpness Location: substernal, central Chest Pain Radiation: no radiation Severity of Pain-Max: mild Severity of Pain-Current: mild Modifying Factors: Improves With: nothing Associated Symptoms: denies symptoms Prior Chest Pain/Cardiac Workup: cardiac cath, echocardiography, heart attack, recently seen/treated Nitro Today/Relief: no nitro taken today Aspirin Treatment Today: unknown Allergies/Adverse Reactions: adhesive Allergy (Mild, Verified 12/20/19 11:26) Blisters codeine [Codeine] Allergy (Mild, Verified 12/20/19 11:26) Nausea and Vomiting Sulfa (Sulfonamide Antibiotics) [Sulfa(Sulfonamide Antibiotics)] Allergy (Mild, Verified 12/20/19 11:26) Nausea and Vomiting acetaminophen [From Percocet] Adverse Reaction (Intermediate, Verified 12/20/19 11:26) Vomiting iron Adverse Reaction (Intermediate, Verified 12/20/19 11:26) Nausea oxycodone [From Percocet] Adverse Reaction (Intermediate, Verified 12/20/19 11:26) Vomiting Home Medications: Omeprazole [Prilosec] 40 mg PO DAILY 11/24/11 [History] Tizanidine HCl 4 mg PO BID PRN PRN 11/10/17 [History] Furosemide [Lasix] 10 mg PO DAILY PRN 03/09/18 [History] Promethazine HCl 25 mg [Phenergan 25 mg] 25 mg PO Q6H PRN PRN 01/14/19 [History] Albuterol Common Canister [Ventolin Common Canister] 2 puff IH Q6HPRN PRN 04/29/19 [History] Levothyroxine Sodium [Synthroid] 300 mcg PO BID 04/29/19 [History] Nitroglycerin 0.4 mg SL Q5MIN PRN MR X 3 PRN 04/29/19 [History] Ondansetron [Ondansetron Odt] 4 mg PO Q6HPRN PRN 04/29/19 [History] Aspirin [[place] Aspirin EC] 81 mg PO DAILY 05/13/19 [History] Famotidine 20 mg [Pepcid 20 MG] 40 mg PO DAILY 09/16/19 [History] Metoprolol Succinate 25 mg PO DAILY 09/20/19 [History] Hx Tetanus, Diphtheria Vaccination/Date Given: Yes Hx Influenza Vaccination/Date Given: Yes Hx Pneumococcal Vaccination/Date Given: Yes Travel Risk - International Travel Have you traveled outside of the country in past 3 weeks: No - Coronavirus Screening Are you exhibiting any of the following symptoms?: No Close contact with a COVID-19 positive Pt in past 14-21 Days: No - Review of Systems Constitutional: No Symptoms Eyes: No Symptoms Ears, Nose, & Throat: No Symptoms Respiratory: No Symptoms Cardiac: Chest Pain Abdominal/Gastrointestinal: No Symptoms Genitourinary Symptoms: No Symptoms Musculoskeletal: No Symptoms Skin: No Symptoms Neurological: No Symptoms Psychological: No Symptoms Endocrine: No Symptoms Hematologic/Lymphatic: No Symptoms Immunological/Allergic: No Symptoms All Other Systems: Reviewed and Negative - Past Medical History Pertinent Past Medical History: Yes Neurological History: Migraines, Stroke ENT History: No Pertinent History Cardiac History: Other Respiratory History: Asthma Endocrine Medical History: Hypothyroidism Musculoskeletal History: No Pertinent History GI Medical History: GERD, Hernia, Other History: Other Psycho-Social History: No Pertinent History Female Reproductive Disorders: Endometriosis Other Medical History: Cardiac arrest, DMII, thyroid removal, hysterectomy, low blood pressure - Past Surgical History Past Surgical History: Yes Neuro Surgical History: No Pertinent History Cardiac: Cardiac Catheterization, Internal Defibrillator, Pacemaker, Other Respiratory: No Pertinent History Gastrointestinal: Appendectomy, Cholecystectomy, Colon Resection, Hernia Repair, Other Genitourinary: No Pertinent History Musculoskeletal: Orthopedic Surgery Female Surgical History: Hysterectomy Other Surgical History: THYROID REMOVED, 40% and 50% blockages found with last heart cath about 4 years ago. ankle surgery d/t break,ileostomy, CVL port removed and replaced, PICC line placed for CVL surgery September 2015. ostomy repair due to blockage 09/02, back surgery and 4 I&D september and october and november 2017. 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 TLIF fused discs in back. OCTOBER 2018 CAROTIDECTOMY AND LYMPH NODE REMOVAL ON RIGHT SIDE. Right Parotid gland removed. "filter for blood clots 2018" - Social History Smoking Status: Never smoker Exposure to second hand smoke: No Alcohol Use: None Drug Use: none Patient Lives Alone: No Significant Family History: heart disease, cancer, diabetes - Nursing Vital Signs Nursing Vital Signs: Initial Vital Signs Pulse Rate 90 12/20/19 11:16 Respiratory Rate 18 12/20/19 11:16 Blood Pressure 123/73 12/20/19 11:16 O2 Sat by Pulse Oximetry 99 12/20/19 11:16 - Physical Exam General Appearance: no apparent distress, alert, anxiety Eye Exam: PERRL/EOMI, eyes nml inspection Ears, Nose, Throat Exam: normal ENT inspection, moist mucous membranes Neck Exam: normal inspection, non-tender, supple, full range of motion Respiratory Exam: normal breath sounds, chest tenderness, lungs clear, airway intact, No respiratory distress Cardiovascular Exam: regular rate/rhythm, normal heart sounds, normal peripheral pulses Gastrointestinal/Abdomen Exam: soft, normal bowel sounds, No tenderness Pelvic Exam: not done Rectal Exam: not done Back Exam: normal inspection, normal range of motion, No CVA tenderness Extremity Exam: normal inspection, normal range of motion, pelvis stable Neurologic Exam: alert, oriented x 3, cooperative, director of community services II-XII nml as tested, n ormal mood/affect, nml cerebellar function, nml station & gait, sensation nml Skin Exam: normal color, warm, dry Lymphatic Exam: No adenopathy SpO2 Interpretation: normal O2 Delivery: Room Air - Course Nursing assessment & vital signs reviewed: Yes EKG Interpreted by Me: RATE ([id number]), Other (No acute ischemic changes. There is atrial sensed ventricular paced rhythm. There are no changes when you compare the current EKG with that of 09/11/2019 and 09/02/2019.) Ordered Tests: Active Orders 24 hr Category Date Time Status Wraparound Facilitator STAT Care 12/20/19 11:21 Active EKG-ER Only STAT Care 12/20/19 11:20 Active IV Insertion STAT Care 12/20/19 11:20 Active Pulse Oximetry (ED) STAT Care 12/20/19 11:20 Active CHEST 1 VIEW (PORTABLE) Stat Exams 12/20/19 11:21 Completed CBC W DIFF Stat Lab 12/20/19 11:30 Completed CMP Stat Lab 12/20/19 11:30 Completed NT PRO BNP Stat Lab 12/20/19 11:30 Completed PROTIME WITH INR Stat Lab 12/20/19 11:30 Completed TROPONIN Q3H Lab 12/20/19 11:30 Completed TROPONIN Q3H Lab 12/20/19 14:30 Ordered TROPONIN Q3H Lab 12/20/19 17:30 Ordered TROPONIN Q3H Lab 12/20/19 20:30 Ordered TROPONIN Q3H Lab 12/20/19 23:30 Ordered Medication Summary Discontinued Medications Generic Name Dose Route Start Last Admin Trade Name Freq PRN Reason Stop Dose Admin Aspirin 324 mg 12/20/19 11:20 12/20/19 11:32 Baby Aspirin 81 Mg Chew PO 12/20/19 11:21 324 mg STAT ONE Administration Morphine Sulfate 2 mg 12/20/19 11:48 12/20/19 12:00 Morphine Sulfate 2 Mg Inj IV 12/20/19 11:49 2 mg STAT ONE Administration Morphine Sulfate Confirm 12/20/19 11:59 Morphine Sulfate 2 Mg Inj Administered 12/20/19 12:00 Dose 2 mg .ROUTE .STK-MED ONE Morphine Sulfate 2 mg 12/20/19 12:47 Morphine Sulfate 2 Mg Inj IV 12/20/19 12:48 STAT ONE Ondansetron HCl 4 mg 12/20/19 11:48 12/20/19 12:00 Zofran 4 Mg/2 Ml Vial IV 12/20/19 11:49 4 mg STAT ONE Administration Ondansetron HCl Confirm 12/20/19 11:59 Zofran 4 Mg/2 Ml Vial Administered 12/20/19 12:00 Dose 4 mg .ROUTE .STK-MED ONE Lab/Rad Data: Laboratory Result Diagrams 12/20/19 11:30 12/20/19 11:30 Laboratory Results 12/20/19 12/20/19 12/20/19 Range/Units 11:30 11:30 11:30 WBC (4.0-10.5) K/mm3 RBC (4.1-5.4) M/mm3 Hgb (12.0-16.0) gm/dl Hct (35-47) % MCV (78-100) fl MCH (26-32) pg MCHC (32-36) g/dl RDW (11.5-14.0) % Plt Count (150-450) K/mm3 MPV (7.5-11.0) fl Gran % (36.0-66.0) % Eos # (Auto) (0-0.5) Absolute Lymphs (auto) (1.0-4.6) Absolute Monos (auto) (0.0-1.3) Lymphocytes % (24.0-44.0) % Monocytes % (0.0-12.0) % Eosinophils % (0.00-5.0) % Basophils % (0.0-0.4) % Absolute Granulocytes (1.4-6.9) Basophils # (0-0.4) PT 12.5 H (9.95-12.35) SECONDS INR 1.11 (0.8-3.0) Sodium 140 (137-145) mmol/L Potassium 3.8 (3.5-5.1) mmol/L Chloride 106 (98-107) mmol/L Carbon Dioxide 24 (22-30) mmol/L Anion Gap 13.3 (5-15) MEQ/L BUN 21 H (7-17) mg/dL Creatinine 1.29 H (0.52-1.04) mg/dL Estimated GFR 44.4 ML/MIN Glucose 95 (74-106) mg/dL Calcium 9.4 (8.4-10.2) mg/dL Total Bilirubin 0.70 (0.2-1.3) mg/dL AST 25 (14-36) U/L ALT 11 (0-35) U/L Alkaline Phosphatase 135 H (38-126) U/L Troponin I < 0.012 (0.000-0.034) ng/mL NT-Pro-B Natriuret Pep 408 (0-900) pg/mL Serum Total Protein 8.4 H (6.3-8.2) g/dL Albumin 4.5 (3.5-5.0) g/dL 12/20/19 Range/Units 11:30 WBC 6.1 (4.0-10.5) K/mm3 RBC 4.07 L (4.1-5.4) M/mm3 Hgb 11.2 L (12.0-16.0) gm/dl Hct 36.2 (35-47) % MCV 88.9 (78-100) fl MCH 27.5 (26-32) pg MCHC 30.9 L (32-36) g/dl RDW 15.1 H (11.5-14.0) % Plt Count 210 (150-450) K/mm3 MPV 9.0 (7.5-11.0) fl Gran % 63.8 (36.0-66.0) % Eos # (Auto) 0.10 (0-0.5) Absolute Lymphs (auto) 1.61 (1.0-4.6) Absolute Monos (auto) 0.47 (0.0-1.3) Lymphocytes % 26.4 (24.0-44.0) % Monocytes % 7.7 (0.0-12.0) % Eosinophils % 1.6 (0.00-5.0) % Basophils % 0.5 (0.0-0.4) % Absolute Granulocytes 3.89 (1.4-6.9) Basophils # 0.03 (0-0.4) PT (9.95-12.35) SECONDS INR (0.8-3.0) Sodium (137-145) mmol/L Potassium (3.5-5.1) mmol/L Chloride (98-107) mmol/L Carbon Dioxide (22-30) mmol/L Anion Gap (5-15) MEQ/L BUN (7-17) mg/dL Creatinine (0.52-1.04) mg/dL Estimated GFR ML/MIN Glucose (74-106) mg/dL Calcium (8.4-10.2) mg/dL Total Bilirubin (0.2-1.3) mg/dL AST (14-36) U/L ALT (0-35) U/L Alkaline Phosphatase (38-126) U/L Troponin I (0.000-0.034) ng/mL NT-Pro-B Natriuret Pep (0-900) pg/mL Serum Total Protein (6.3-8.2) g/dL Albumin (3.5-5.0) g/dL - Progress Progress: improved, re-examined Air Movement: good Progress Note: 12/20/19 12:33 Chest x-ray reveals no acute pulmonary process. The new PICC line is in the appropriate position. 12/20/19 13:42 Medical decision making: This patient has a history of recurrent chest pain. At the time of discharge her chest pain has resolved. She does have a significant history of myocardial infarction, coronary artery disease and has a pacemaker in place. She also has had pulmonary emboli in the past. Patient has been on anticoagulation therapy. Patient was not having any chest pain until after placement of a PICC line that was performed this morning. The patient did not have chest pain immediately after the PICC line placement. Patient was walking during shopping and noticed some chest pain substernal and central without radiation.. I compared her EKGs over the last few months and they have not changed. Her troponin is within normal limits. I spoke with Dr. Duarte her senior data modeler. He felt that it is reasonable for her to be discharged to home if I feel comfortable with discharging her. He obviously is not here to evaluate the patient. However, I am comparing today's exam, vital signs EKGs and laboratory results with those in the last several months with the same complaint. Patient has a procedure to be performed tomorrow. Dr. Duarte wants to be sure that the patient is aware that she needs to restart any anticoagulation therapy as soon after tomorrow's procedure as possible. 12/20/19 13:46 Blood Culture(s) Obtained: No Antibiotics given: No Counseled pt/family regarding: lab results, diagnosis, need for follow-up, rad results - Departure Departure Disposition: Home Clinical Impression: Chronic chest pain Condition: Stable Critical Care Time: No Referrals: WAQAR CASTRO [Primary Care Provider] - Additional Instructions: Take your medication as prescribed. Make sure that you are on your anti- coagulation therapy medication as soon as possible after your procedure tomorrow. Discuss this with your surgeon. Return to the emergency department if symptoms worsen.
[2019-12-20 11:37] LABS: Absolute Neutrophil Ct (ANC) 3.89 (1.4-6.9); BASOPHIL % 0.5 % (0.0-0.4); Basophil (Absolute #) 0.03 (0-0.4); Eosinophil % 1.6 % (0.00-5.0); Hematocrit 36.2 % (35-47); Hemoglobin 11.2 gm/dl (12.0-16.0); Lymphocyte (Absolute #) 1.61 (1.0-4.6); Lymphocytes % 26.4 % (24.0-44.0); Mean Cell Volume 88.9 fl (78-100); Mean Corpuscular Hemoglobin 27.5 pg (26-32); Mean Corpuscular Hgb Concent. 30.9 g/dl (32-36); Monocyte (Absolute #) 0.47 (0.0-1.3); Monocytes % 7.7 % (0.0-12.0); Neutrophil % 63.8 % (36.0-66.0); Platelet Count 210 K/mm3 (150-450); Red Blood Count 4.07 M/mm3 (4.1-5.4); Red Cell Distribution Width 15.1 % (11.5-14.0); White Blood Count 6.1 K/mm3 (4.0-10.5)
[2019-12-20 11:44] LABS: INR 1.11 (0.8-3.0); PROTIME 12.5 SECONDS (9.95-12.35)
[2019-12-20] MEDS ORDERED: MORPHINE SULFATE 2 MG INJ IV ONE ×2 (11:48→12:47)
[2019-12-20] MEDS ORDERED: Zofran 4 MG/2 ML VIAL IV ONE (11:48)
--- NOTE | 2019-12-20 11:55 | XRAY ---
Indication: Right chest pain radiating left arm. Comparison: September 11, 2019. Portable chest again demonstrates normal heart and lungs with incidental left AICD and nonfunctioning right Port-A-Cath. New right arm PICC line with tip projecting over the SVC. Bony thorax intact again with mild osteopenia and minimal degenerative changes. Impression: Nonacute chest with chronic features..
[2019-12-20 11:56] LABS: ALBUMIN 4.5 g/dL (3.5-5.0); ANION GAP 13.3 MEQ/L (5-15); BILIRUBIN,TOTAL 0.7 mg/dL (0.2-1.3); Calcium 9.4 mg/dL (8.4-10.2); Creatinine 1 1.29 mg/dL (0.52-1.04); Potassium 3.8 mmol/L (3.5-5.1); Total Protein 8.4 g/dL (6.3-8.2)
[2019-12-20] MEDS ORDERED: Zofran 4 MG/2 ML VIAL ONE (11:59)
[2019-12-20] MEDS ORDERED: MORPHINE SULFATE 2 MG INJ ONE (11:59)
[2019-12-20 12:57] VITALS: O2SAT 96
[2019-12-20 13:24] VITALS: BP 115/67; PULSE 85
== END 2019-12-20 14:08 | disposition home or self-care (01) ==
LOC: ED 11:14
DX: R07.9 Chest pain, unspecified (principal); Z79.899 Other long term (current) drug therapy; E03.9 Hypothyroidism, unspecified; K21.9 Gastro-esophageal reflux disease without esophagitis
CPT/HCPCS: 36415; 36573; 71045; 76937; 77001; 80053; 83880; 84484; 85025; 85610; 93005; 93041; 94760; 96374; 96375; 99284; C1769; J1642; J2270; J2405; A9270-GY

== ENCOUNTER 2020-01-03 11:00 | Day surgery (SDC) | payer MEDICARE ==
--- NOTE | 2020-01-03 08:00 | HP ---
DATE OF SURGERY: 01/03/2020 HISTORY OF PRESENT ILLNESS: The patient is a 64 year old with multiple medical problems. She had a port placed a few months ago, working fine at the time of placement. They tried to use it recently and they said it was out of position and needed to be replaced. We did not have the films available on the office visit. Will reserve time for putting this port in a different position as she had problem with hers. She must have tossed and turned, had extensive motion because she had a very limited pocket and suturing of the port that she had somehow tossing and turning and extensive movement of her arm she ended up pulling the catheter back into the pocket. PAST MEDICAL HISTORY: She has significant chronic medical problems with diabetes, asthma, history of atrial fibrillation, deep venous thrombosis, pulmonary embolism in the past, chronic obstructive pulmonary disease. She is on chronic anticoagulation. She had cardiac arrest in the past. PAST SURGICAL HISTORY: She had a pacemaker in the past. She had tubal, port placement and replacement in the past. She had bowel surgery by Dr. Lucien Bella in the past. She had hysterectomy, cholecystectomy, orthopedic surgery, thyroid surgery and pacemaker in the past. MEDICATIONS: She has been on aspirin, Lasix, Coumadin, Phenergan, morphine, tizanidine, Coreg, Synthroid, Prilosec. ALLERGIES: SULFA. CODEINE. PERCOCET. TAPE. FAMILY HISTORY: Heart disease, cancer. SOCIAL HISTORY: No alcohol abuse. REVIEW OF SYSTEMS: Fourteen systems reviewed as noted above per multiple medical problems. No chest pain or palpitations. Other systems negative or noncontributory as above and per preadmission questionnaire. PHYSICAL EXAMINATION: GENERAL: A chronically ill female. HEENT: Sclerae nonicteric. NECK: No JVD. CHEST: Equal excursion, nonlabored breathing. Port incision is clean, dry and intact. No signs of infection. Pacemaker on the left. CVS: Regular rate and rhythm. ABDOMEN: Soft, nondistended. EXTREMITIES: No cyanosis. NEURO: Alert, oriented, moving extremities symmetrically. IMPRESSION: Dysfunctional port. The patient may have pulled it out of its location in the vein. I will review the x-rays and confirm for sure but will reserve time for replacement of dysfunctional port the patient having pulled out of position. She understands if we do this will have to change to different location. General risk of bleeding or infection, risk of hematoma or seroma formation, risk of pneumothorax or thrombosis, general risk of anesthesia, deep venous thrombosis, pulmonary embolism, pneumonia, risk of cardiopulmonary event given her comorbidity, possibility with repeated access that she may have reached a point where she scars her vessels and unable to place a port in the future. She understands as well as general risk of aches and pains, possible malfunction or dislodgement of the port in the future possibly requiring other procedures. Will proceed with reserving time for removal of port and replacing the dysfunctional port as an outpatient.
[~2020-01-03 11:00] MED LIST: Lactated Ringers 1,000 ML IV ONE; XYLOCAINE 1% HCL 20 ML MDV ONE
[2020-01-03] MEDS ORDERED: Lactated Ringers 1,000 ML IV ONE (12:17)
[2020-01-03] MEDS ORDERED: Lactated Ringers 1,000 ML IV SCH (12:30)
[2020-01-03 14:32] LABS: Free T4 2.46 ng/dL (0.76-1.46)
[2020-01-03 14:34] LABS: ALBUMIN 3.9 g/dL (3.5-5.0); BILIRUBIN,TOTAL 0.5 mg/dL (0.2-1.3); Calcium 8.9 mg/dL (8.4-10.2); Creatinine 1 1.37 mg/dL (0.52-1.04); FREE TRIODOTHYRONINE 3.95 pg/mL (2.77-5.27); TSH, 3RD Generation 0.94 mIU/L (0.47-4.68); Total Protein 7.2 g/dL (6.3-8.2)
[2020-01-03] MEDS ORDERED: DILAUDID 2 MG INJECTION ONE (15:19)
[2020-01-03] MEDS ORDERED: DEMEROL 50 MG ONE (15:36)
--- NOTE | 2020-01-03 15:42 | XRAY ---
Indication: Port placement. Intraoperative fluoroscopy was provided for 8 seconds. Single digital spot image submitted for interpretation demonstrates 2 right Port-A-Cath. One is in good position with the tip projecting over the SVC. The second is nonfunctioning and coiled over the right midlung field. Correlate with intraoperative findings/report.
[2020-01-03] MEDS ORDERED: NORCO 5/325 MG PO PRN (16:28)
[2020-01-03] MEDS ORDERED: MORPHINE SULFATE 4 MG INJ IV PRN (16:28)
[2020-01-03] MEDS ORDERED: Zofran 4 MG/2 ML VIAL IV PRN (16:28)
[2020-01-03] MEDS ORDERED: Zofran 4 MG/2 ML VIAL ONE (16:33)
[2020-01-03] MEDS ORDERED: MORPHINE SULFATE 4 MG INJ ONE (16:34)
[2020-01-03 17:33] VITALS: BP 135/72; PULSE 80; O2SAT 98
[2020-01-03] MEDS: Sodium Chloride 0.9% 10 ML FLUSH Syringe PICC PRN ×2 (17:34→17:35)
--- NOTE | 2020-01-04 12:49 | OP ---
SURGERY DATE/TIME: 01/03/2020 1403 PREOPERATIVE DIAGNOSIS: Dislodged patient Port-A-Cath, dysfunctional port now. The patient's dislodged Port-A-Cath coiled in the pocket, need for detention IV access. Removal of old dysfunctional port. POSTOPERATIVE DIAGNOSIS: Dislodged patient Port-A-Cath, dysfunctional port now. The patient's dislodged Port-A-Cath coiled in the pocket, need for terminal worker IV access. Removal of old dysfunctional port. PROCEDURES: 1) Ultrasound guided cannulation right internal jugular vein (unable to pass guide wire deep enough to allow replacement of jugular port catheter. 2) Ultrasound guided cannulation left internal jugular vein with C-arm fluoroscopy (unable to pass guide wire across innominate to SVC. Port placement on left side aborted. 3) Placement of new right subclavian Port-A-Cath with C-arm fluoroscopy at a new site (new site from old port site). 4) Removal of old dysfunction patient dislodged port catheter. SURGEON: Dr. Juan M Cleveland. BUTADIENE COMPRESSOR OPERATOR: Tammie Lemon, Medical Student III. ANESTHESIA: MAC. ESTIMATED BLOOD LOSS: Minimal. INDICATIONS: As noted above. Risks and benefits explained in detail and not limited to and consent obtained. Somehow the patient contorted into different positions when she sleeps. She does not know she does this constantly. For a second time she has dislodged her catheter out of the vein. It was somehow coiled in the port site. Because of this it was felt removal of the old dysfunctional patient dislodged port and placing in a new port. Risks and benefits explained in detail but not limited to and consent obtained. DESCRIPTION OF PROCEDURE AND FINDINGS: The patient is taken to the operating room. MAC anesthesia introduced. Neck and chest prepped and draped in usual sterile fashion. After official time out and no disagreement with planned procedure, starting first with the right internal jugular, ultrasound guided sterile probe for recovery. Transduction was flexible and small right internal jugular vein was identified. 1% lidocaine local infiltrated. 18 gauge cannulation needle inserted on first pass. Guide wire was able to be passed. It would not pass more than a few centimeters into the needle. It was felt there was some scarring in this area and was necessary to place a catheter despite resticking the site under ultrasound with dark nonpulsatile venous return. The guide wire still was not able to be passed safely to allow placement. We elected to try the left jugular approach. Again under ultrasound interpretation there a much larger internal jugular vein on this side was identified. 1% lidocaine local infiltrated. 18 gauge cannulation inserted on first pass aspirated dark nonpulsatile venous return. However, the guide wire would not go across the innominate. It kept wanting to go out the subclavian out towards the axilla despite C-arm fluoroscopy. Therefore it was elected to go back to the subclavian approach on the right. She has a PICC line or midline type line over on this side and coiled old port catheter was coiled in the old pocket. At this point 1% lidocaine infiltrated. 18 gauge cannulation needle inserted on first pass. Aspirated good dark nonpulsatile venous return. Guide wire passed without difficulty. Initially this coiled a little bit right past the tip but then was easily directed down the superior vena cava this was followed by anesthetizing the port pocket. It was elected to create a completely new pocket medially more towards the sternal area this is anchored down to the pectoralis fascia. Port secured x2. Catheter tunneled down from the cannulation stab wound down to port pocket area. Dilator break away sheath easily fed over the guide wire. Catheter fed down. The tip was down the distal superior vena cava, top of the right atrial area trying to go as deep as possible to reduce the risk of dislodgement. The catheter is snapped onto the port. Aspirated dark nonpulsatile venous return, flushed with injected heparinized saline with ease. The soft tissue was carefully closed around completely obliterating any space between the catheter and the port itself. Subcu closed with 3-0 Vicryl. Skin closed with 4-0 Vicryl. Cannulation stab wound closed with 4-0 Vicryl. Steri-Strips and sterile dressing applied. At this point there were no immediate complications. C-arm fluoroscopy confirmed the tip down the superior vena cava what appeared to be the top of the right atrial area. Lung judge noted to be up bilaterally. Catheter snapped onto port. Again it was aspirating with good dark nonpulsatile venous return with ease. It was flushed with injectable saline. At this point 1% lidocaine local infiltrated at the old more lateral port site. Careful incision through the old scar. Dissection carried down and two sutures removed. The port and catheter carefully mobilized upwards and passed off. Port was dried out. Deep subcu closed with 3-0 Vicryl. Subcu closed with 3-0 Vicryl. Skin closed with 4-0 Vicryl. Steri-Strips and sterile dressing applied. There were no immediate complications. There was no family available to discuss the findings with out in the waiting area. Again this patient has a very difficult access, very limited on options in the future. Should she continue tossing and turning and contort in a way that she repeatedly pulls out her port. If she continues to do so may need to consider some other variation of radiologic approach.
== END 2020-01-03 17:42 | disposition home or self-care (01) ==
LOC: SDC 11:00
PROVIDERS: ATTEND Surgery
DX: T82.524A Displacement of infusion catheter, initial encounter (principal); E11.9 Type 2 diabetes mellitus without complications; J44.9 Chronic obstructive pulmonary disease, unspecified; E03.9 Hypothyroidism, unspecified; Z79.01 Long term (current) use of anticoagulants; Z79.899 Other long term (current) drug therapy; Z86.711 Personal history of pulmonary embolism
CPT/HCPCS: 36415; 36571; 36590; 77001; 80053; 82306; 82962; 83036; 84432; 84439; 84443; 84481; 86800; C1788; J1170; J1642; J2175; J2270; J2405

== ENCOUNTER 2020-01-13 11:24 | Observation (INO) | payer MEDICARE ==
[2020-01-13 11:33] VITALS: PULSE 80
[2020-01-13 11:54] LABS: BASOPHIL % 0.6 % (0.0-0.4); Basophil (Absolute #) 0.05 (0-0.4); Eosinophil % 1.4 % (0.00-5.0); Eosinophil (Absolute #) 0.12 (0-0.5); Hematocrit 34.6 % (35-47); Hemoglobin 10.9 gm/dl (12.0-16.0); Lymphocyte (Absolute #) 1.87 (1.0-4.6); Lymphocytes % 22.3 % (24.0-44.0); Mean Cell Volume 87.4 fl (78-100); Mean Corpuscular Hemoglobin 27.5 pg (26-32); Mean Corpuscular Hgb Concent. 31.5 g/dl (32-36); Mean Platelet Volume 9.3 fl (7.5-11.0); Monocyte (Absolute #) 0.74 (0.0-1.3); Monocytes % 8.8 % (0.0-12.0); Neutrophil % 66.9 % (36.0-66.0); Platelet Count 249 K/mm3 (150-450); Red Blood Count 3.96 M/mm3 (4.1-5.4); Red Cell Distribution Width 14.6 % (11.5-14.0); White Blood Count 8.4 K/mm3 (4.0-10.5)
[2020-01-13 12:06] LABS: ALBUMIN 4.3 g/dL (3.5-5.0); ANION GAP 13.5 MEQ/L (5-15); BILIRUBIN,TOTAL 0.6 mg/dL (0.2-1.3); Calcium 9.7 mg/dL (8.4-10.2); Creatinine 1 1.29 mg/dL (0.52-1.04); EST GLOMERULAR FILTRATION RATE 44.4 ML/MIN; MAGNESIUM 1.7 mg/dL (1.6-2.3); Potassium 4.1 mmol/L (3.5-5.1); Total Protein 7.9 g/dL (6.3-8.2)
--- NOTE | 2020-01-13 12:09 | XRAY ---
Indication: Short of breath. Comparison: December 27, 2019. Portable chest remains clear and heart remains borderline enlarged with stable left AICD. No acute cardiopulmonary abnormalities. New right Port-A-Cath with tip in right atrium. PICC line has been removed.
--- NOTE | 2020-01-13 12:13 | ERPHSYRPT ---
- History of Present Illness Time Seen by Provider: 01/13/20 11:30 Historian: patient Patient Subjective Stated Complaint: Pt states "I started to have a little shortness of breath last night but I was jason this moring and I just cannot catch my breath. I was tested for covid 2 weeks ago and it was negative." Triage Nursing Assessment: Pt presented alert and oriented X 3, skin wpd pt able to speak in clear full sentences pt speaking rapidly and is tachypneic. Pt am bualtes with an upright steady gait, . Physician History: Patient is a 64-year-old female who presents to our ED with complaints of shortness of breath. Symptoms started last night. Shortness of breath has been progressive. Patient was jason this morning when she felt as though she could not catch her breath. Patient states it feels like an elephant is sitting on h er chest. Deep breathing worsens pain. Patient arrived to our ED in mild respiratory distress. Patient tachypneic. Patient complaining of pain to her chest radiating to her left shoulder. No associated nausea or vomiting. No trauma. No fever. Patient has a history of diabetes congestive heart failure coronary artery disease hypothyroidism and stroke. Patient has significant cardiovascular comorbidities. Symptoms are progressive. Symptoms are moderate in intensity. Patient voices no other complaints concerns at this time. Patient had a port placed approximately 10 days ago. Timing/Duration: yesterday Activities at Onset: other Quality: aching Location: other (Left chest radiating to left shoulder and back.) Chest Pain Radiation: back Severity of Pain-Max: moderate Severity of Pain-Current: mild Modifying Factors: Improves With: breathing Associated Symptoms: shortness of breath, No nausea, No vomiting, No palpitations, No heartburn, No cough, No fever Prior Chest Pain/Cardiac Workup: no prior chest pain Nitro Today/Relief: no nitro taken today Aspirin Treatment Today: no aspirin today Allergies/Adverse Reactions: adhesive Allergy (Mild, Verified 01/03/20 12:09) Blisters codeine [Codeine] Allergy (Mild, Verified 01/03/20 12:09) Nausea and Vomiting Sulfa (Sulfonamide Antibiotics) [Sulfa(Sulfonamide Antibiotics)] Allergy (Mild, Verified 01/03/20 12:09) Nausea and Vomiting acetaminophen [From Percocet] Adverse Reaction (Intermediate, Verified 01/03/20 12:09) Vomiting iron Adverse Reaction (Intermediate, Verified 01/03/20 12:09) Nausea oxycodone [From Percocet] Adverse Reaction (Intermediate, Verified 01/03/20 12:09) Vomiting Home Medications: Tizanidine HCl 4 mg PO TID PRN PRN 11/10/17 [History] Furosemide [Lasix] 10 mg PO DAILY PRN 03/09/18 [History] Promethazine HCl 25 mg [Phenergan 25 mg] 25 mg PO Q6H PRN PRN 01/14/19 [History] Albuterol Common Canister [Ventolin Common Canister] 2 puff IH Q6HPRN PRN 04/29/19 [History] Levothyroxine Sodium [Synthroid] 300 mcg PO BID 04/29/19 [History] Nitroglycerin 0.4 mg SL Q5MIN PRN MR X 3 PRN 04/29/19 [History] Ondansetron [Ondansetron Odt] 4 mg PO Q6HPRN PRN 04/29/19 [History] Aspirin [Harman Aspirin EC] 81 mg PO DAILY 05/13/19 [History] Famotidine 20 mg [Pepcid 20 MG] 40 mg PO DAILY 09/16/19 [History] Metoprolol Succinate 25 mg PO DAILY 09/20/19 [History] Hx Tetanus, Diphtheria Vaccination/Date Given: Yes Hx Influenza Vaccination/Date Given: Yes Hx Pneumococcal Vaccination/Date Given: Yes Immunizations Up to Date: Yes Travel Risk - International Travel Have you traveled outside of the country in past 3 weeks: No - Coronavirus Screening Are you exhibiting any of the following symptoms?: Yes Symptoms: Shortness of Breath Close contact with a COVID-19 positive Pt in past 14-21 Days: No - Review of Systems Constitutional: No Symptoms, No Fever, No Chills Eyes: No Symptoms Ears, Nose, & Throat: No Symptoms Respiratory: No Symptoms, No Cough, No Dyspnea Cardiac: No Symptoms, No Chest Pain, No Edema, No Syncope Abdominal/Gastrointestinal: No Symptoms, No Abdominal Pain, No Nausea, No Vomiting, No Diarrhea Genitourinary Symptoms: No Symptoms, No Dysuria Musculoskeletal: No Symptoms, No Back Pain, No Neck Pain Skin: No Symptoms, No Rash Neurological: No Symptoms, No Dizziness, No Focal Weakness, No Sensory Changes Psychological: No Symptoms Endocrine: No Symptoms Hematologic/Lymphatic: No Symptoms Immunological/Allergic: No Symptoms All Other Systems: Reviewed and Negative - Past Medical History Pertinent Past Medical History: Yes Neurological History: Migraines, Stroke ENT History: No Pertinent History Cardiac History: Angina, Congestive Heart Failure, Coronary Artery Disease, Deep Vein Thrombosis, Other Respiratory History: Asthma Endocrine Medical History: Diabetes Type II, Hypothyroidism, Thyroid Cancer Musculoskeletal History: Other GI Medical History: GERD, Hernia, Other History: Other Psycho-Social History: No Pertinent History Female Reproductive Disorders: Endometriosis Other Medical History: Cardiac arrest, DMII, thyroid removal, hysterectomy, low blood pressure, Back pain. hx afib. hiatal hernia. recent cough and congestio n - Past Surgical History Past Surgical History: Yes Neuro Surgical History: No Pertinent History Cardiac: Cardiac Catheterization, Internal Defibrillator, Pacemaker, Other Respiratory: No Pertinent History Gastrointestinal: Appendectomy, Cholecystectomy, Colon Resection, Hernia Repair, Other Genitourinary: No Pertinent History Musculoskeletal: Orthopedic Surgery Female Surgical History: Hysterectomy Other Surgical History: THYROID REMOVED, 40% and 50% blockages found with last heart cath about 4 years ago. ankle surgery d/t break,ileostomy, CVL port annabelle derick and replaced, PICC line placed for poor venous access. Pt here today for dysfunctional port removal and replacement of port. . ostomy repair due to blockage 09/02, back surgery and 4 I&D september and october and november 2017. 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 TLIF fused discs in back. OCTOBER 2018 CAROTIDECTOMY AND LYMPH NODE REMOVAL ON RIGHT SIDE. Right Parotid gland removed. "filter for blood clots 2018" - Social History Smoking Status: Never smoker Exposure to second hand smoke: No Alcohol Use: None Drug Use: none Patient Lives Alone: No Significant Family History: heart disease, cancer, diabetes - Female History Hx Now: No - Nursing Vital Signs Nursing Vital Signs: Initial Vital Signs Temperature 98.2 F 01/13/20 11:25 Pulse Rate 80 01/13/20 11:25 Respiratory Rate 28 H 01/13/20 11:25 Blood Pressure 125/76 01/13/20 11:25 O2 Sat by Pulse Oximetry 97 01/13/20 11:25 Pain Scale Pain Intensity 10 - Physical Exam General Appearance: no apparent distress, alert Eye Exam: PERRL/EOMI, eyes nml inspection Ears, Nose, Throat Exam: normal ENT inspection, moist mucous membranes Neck Exam: normal inspection, non-tender, supple, full range of motion Respiratory Exam: normal breath sounds, lungs clear, No respiratory distress Cardiovascular Exam: regular rate/rhythm, normal heart sounds Gastrointestinal/Abdomen Exam: soft, No tenderness, No mass Back Exam: normal inspection, No CVA tenderness, No vertebral tenderness Extremity Exam: normal inspection, normal range of motion Neurologic Exam: alert, oriented x 3, cooperative, normal mood/affect, sensation nml, No motor deficits Skin Exam: normal color, warm, dry SpO2 Interpretation: normal SpO2: 99 O2 Delivery: Room Air - Course Nursing assessment & vital signs reviewed: Yes EKG Interpreted by Me: RATE (80), NORMAL AXIS, NORMAL INTERVALS, Other (Ventricular paced rhythm.) - Radiology Exams Chest X-ray Interpretation: Teleradiologist Report (Portable chest remains clear and heart remains borderline enlarged with stable left AICD. No acute cardiopulmonary abnormalities. New right Port-A-Cath with tip in the right atrium. PICC line has been removed.) Ordered Tests: Active Orders 24 hr Category Date Time Status Bedrest ROUTINE Activity 01/13/20 13:53 Active Bedrest with BRP/BSC ROUTINE Activity 01/13/20 13:53 Active Accucheck ACHS Care 01/13/20 13:53 Active Stores Despatch Hand STAT Care 01/13/20 11:39 Completed Code Status Order ROUTINE Care 01/13/20 13:53 Active EKG-ER Only STAT Care 01/13/20 11:39 Completed IV Care Q6H Care 01/13/20 13:53 Active IV Insertion STAT Care 01/13/20 11:39 Completed Implement Chest Pain Pathway ROUTINE Care 01/13/20 13:[address] in Observation ROUTINE Care 01/13/20 13:53 Active Pulse Oximetry (ED) STAT Care 01/13/20 11:39 Completed Elicia Alba ROUTINE Care 01/13/20 13:53 Active Weight,Daily 0600 Care 01/13/20 13:53 Active Consistent Carbohydrate Diet 1800 Calorie Diet 01/13/20 Lunch Active CHEST 1 VIEW (PORTABLE) Stat Exams 01/13/20 11:39 Completed CHEST WITH CONTRAST [CT] Stat Exams 01/13/20 12:13 Completed CBC W DIFF Stat Lab 01/13/20 11:10 Completed CMP Stat Lab 01/13/20 11:10 Completed D-DIMER QUANTITATIVE Stat Lab 01/13/20 11:10 Completed LIPID PROFILE AM.LAB Lab 01/14/20 04:00 Ordered MAGNESIUM Stat Lab 01/13/20 11:10 Completed NT PRO BNP Stat Lab 01/13/20 12:20 Completed TROPONIN AM.LAB Lab 01/14/20 04:00 Ordered TROPONIN Q3H Lab 01/13/20 11:10 Completed TROPONIN Q3H Lab 01/13/20 14:45 Ordered TROPONIN Q3H Lab 01/13/20 17:45 Ordered TROPONIN Q3H Lab 01/13/20 20:45 Ordered TROPONIN Q3H Lab 01/13/20 23:45 Ordered UA W/RFX UR CULTURE Stat Lab 01/13/20 11:39 Uncollected Urine Triage Profile Stat Lab 01/13/20 11:39 Uncollected EKG Q8HX2,QAMX3,PRN RT 01/13/20 13:53 Active Pulse Oximetry Q4H RT 01/13/20 13:53 Active Transfer Order Routine Transfer 01/13/20 Completed Medication Summary Discontinued Medications Generic Name Dose Route Start Last Admin Trade Name Freq PRN Reason Stop Dose Admin Morphine Sulfate 2 mg 01/13/20 12:21 01/13/20 12:27 Morphine Sulfate 2 Mg Inj IV 01/13/20 12:22 2 mg STAT ONE Administration Morphine Sulfate Confirm 01/13/20 12:25 Morphine Sulfate 2 Mg Inj Administered 01/13/20 12:26 Dose 2 mg .ROUTE .STK-MED ONE Morphine Sulfate 4 mg 01/13/20 12:45 01/13/20 13:22 Morphine Sulfate 4 Mg Inj IV 01/13/20 12:46 4 mg STAT ONE Administration Morphine Sulfate Confirm 01/13/20 12:47 Morphine Sulfate 4 Mg Inj Administered 01/13/20 12:48 Dose 4 mg .ROUTE .STK-MED ONE Nitroglycerin 1 gm 01/13/20 13:24 01/13/20 13:29 Nitro-Bid 2% Ud Packets TOP 01/13/20 13:25 1 gm STAT ONE Administration Nitroglycerin Confirm 01/13/20 13:28 Nitro-Bid 2% Ud Packets Administered 01/13/20 13:29 Dose 1 gm .ROUTE .STK-MED ONE Lab/Rad Data: Laboratory Result Diagrams 01/13/20 11:10 01/13/20 11:10 Laboratory Results 01/13/20 01/13/20 01/13/20 Range/Units 12:20 11:10 11:10 WBC (4.0-10.5) K/mm3 RBC (4.1-5.4) M/mm3 Hgb (12.0-16.0) gm/dl Hct (35-47) % MCV (78-100) fl MCH (26-32) pg MCHC (32-36) g/dl RDW (11.5-14.0) % Plt Count (150-450) K/mm3 MPV (7.5-11.0) fl Gran % (36.0-66.0) % Eos # (Auto) (0-0.5) Absolute Lymphs (auto) (1.0-4.6) Absolute Monos (auto) (0.0-1.3) Lymphocytes % (24.0-44.0) % Monocytes % (0.0-12.0) % Eosinophils % (0.00-5.0) % Basophils % (0.0-0.4) % Absolute Granulocytes (1.4-6.9) Basophils # (0-0.4) D-Dimer 7128 H* (215-500) ng/mL Sodium (137-145) mmol/L Potassium (3.5-5.1) mmol/L Chloride (98-107) mmol/L Carbon Dioxide (22-30) mmol/L Anion Gap (5-15) MEQ/L BUN (7-17) mg/dL Creatinine (0.52-1.04) mg/dL Estimated GFR ML/MIN Glucose (74-106) mg/dL Calcium (8.4-10.2) mg/dL Magnesium (1.6-2.3) mg/dL Total Bilirubin (0.2-1.3) mg/dL AST (14-36) U/L ALT (0-35) U/L Alkaline Phosphatase (38-126) U/L Troponin I < 0.012 (0.000-0.034) ng/mL NT-Pro-B Natriuret Pep 472 (0-900) pg/mL Serum Total Protein (6.3-8.2) g/dL Albumin (3.5-5.0) g/dL 01/13/20 01/13/20 Range/Units 11:10 11:10 WBC 8.4 (4.0-10.5) K/mm3 RBC 3.96 L (4.1-5.4) M/mm3 Hgb 10.9 L (12.0-16.0) gm/dl Hct 34.6 L (35-47) % MCV 87.4 (78-100) fl MCH 27.5 (26-32) pg MCHC 31.5 L (32-36) g/dl RDW 14.6 H (11.5-14.0) % Plt Count 249 (150-450) K/mm3 MPV 9.3 (7.5-11.0) fl Gran % 66.9 H (36.0-66.0) % Eos # (Auto) 0.12 (0-0.5) Absolute Lymphs (auto) 1.87 (1.0-4.6) Absolute Monos (auto) 0.74 (0.0-1.3) Lymphocytes % 22.3 L (24.0-44.0) % Monocytes % 8.8 (0.0-12.0) % Eosinophils % 1.4 (0.00-5.0) % Basophils % 0.6 (0.0-0.4) % Absolute Granulocytes 5.60 (1.4-6.9) Basophils # 0.05 (0-0.4) D-Dimer (215-500) ng/mL Sodium 139 (137-145) mmol/L Potassium 4.1 (3.5-5.1) mmol/L Chloride 108 H (98-107) mmol/L Carbon Dioxide 21 L (22-30) mmol/L Anion Gap 13.5 (5-15) MEQ/L BUN 20 H (7-17) mg/dL Creatinine 1.29 H (0.52-1.04) mg/dL Estimated GFR 44.4 ML/MIN Glucose 99 (74-106) mg/dL Calcium 9.7 (8.4-10.2) mg/dL Magnesium 1.7 (1.6-2.3) mg/dL Total Bilirubin 0.60 (0.2-1.3) mg/dL AST 23 (14-36) U/L ALT 9 (0-35) U/L Alkaline Phosphatase 129 H (38-126) U/L Troponin I (0.000-0.034) ng/mL NT-Pro-B Natriuret Pep (0-900) pg/mL Serum Total Protein 7.9 (6.3-8.2) g/dL Albumin 4.3 (3.5-5.0) g/dL - Progress Progress: improved Air Movement: fair Progress Note: 01/13/20 13:11 D-dimer dated 7127. Patient with progressive shortness of breath and chest pain. In light of patient's risk factor, recent port insertion and progressive symptoms a CT scan was ordered. However GFR was found to be low at 44. Administering IV contrast causes some degree of rest of patient's kidney function. After extensive conversation with patient regarding the risks and benefits of administering contrast in light of low GFR patient adamantly stated that she wanted the test done. Patient wanted the CT scan done for an immediate answer. CT a chest negative for PE. Patient's pain improved after adminis tration of Morphine morphine. In light of patient's cardiac risk factors and chest pain we will admit for cardiac rule out. 01/13/20 13:[address] Mccallum who accepts admission to observation. 01/13/20 13:56 Blood Culture(s) Obtained: No Antibiotics given: No Discussed with : Jaki Will see patient in: hospital (observation) Counseled pt/family regarding: lab results, diagnosis, need for follow-up, rad results - Departure Departure Disposition: Observation Clinical Impression: Chest pain, ACS (acute coronary syndrome), Osteopenia, Cardiomegaly Condition: Stable Critical Care Time: No
[2020-01-13] MEDS ORDERED: MORPHINE SULFATE 2 MG INJ IV ONE (12:21)
[2020-01-13] MEDS ORDERED: MORPHINE SULFATE 2 MG INJ ONE (12:25)
[2020-01-13] MEDS ORDERED: MORPHINE SULFATE 4 MG INJ IV ONE (12:45)
[2020-01-13] MEDS ORDERED: MORPHINE SULFATE 4 MG INJ ONE (12:47)
--- NOTE | 2020-01-13 13:03 | XRAY ---
Indication: Multiple contiguous axial images obtained through the chest using 80 cc Isovue 370 contrast and PE protocol. Comparison: September 02, 2019. Patient's GFR is 44, low. This was reported to the ordering ER clinician, Dr. Rosales who acknowledged and understood. There is good opacification of the pulmonary arteries. However mild respiration artifact limits evaluation of the more distal lobar and segmental branches. No central pulmonary embolus. Heart remains enlarged again with left-sided AICD. New right Port-A-Cath with the tip in the right atrium. Aorta is normal in course and caliber without aneurysm/dissection. No pathologic mediastinal/hilar lymphadenopathy. Lungs again demonstrates bibasilar subsegmental fibrosis/scarring. No suspicious pulmonary mass, infiltrate, consolidation, or effusion. Bony thorax intact again with mild osteopenia and old sternal fracture. Limited upper abdomen demonstrates stable GE junction postsurgical changes and cholecystectomy. Impression: 1. Pulmonary embolus evaluation limited due to respiration artifact. No obvious pulmonary embolus. 2. Stable cardiomegaly and scattered fibrosis/scarring. 3. New right Port-A-Cath without complications. 4. Remaining CT chest with contrast exam is negative.
[2020-01-13] MEDS ORDERED: NITRO-BID 2% UD PACKETS TOP ONE (13:24)
[2020-01-13] MEDS ORDERED: NITRO-BID 2% UD PACKETS ONE (13:28)
[2020-01-13] MEDS ORDERED: MILK OF MAGNESIA 30 ML PO PRN (13:53)
[2020-01-13] MEDS ORDERED: MAALOX ES 30 ML UNIT DOSE PO PRN (13:53)
[2020-01-13] MEDS ORDERED: Senokot-S Tablet PO PRN (13:53)
[2020-01-13] MEDS ORDERED: Zofran 4 MG/2 ML VIAL IV PRN (13:53)
[2020-01-13 14:41] VITALS: O2SAT 97
[2020-01-13 15:11] LABS: Appearance SLIGHTLY CLOUDY (CLEAR); Bacteria FEW /HPF (NEGATIVE); Bilirubin NEGATIVE (NEGATIVE); Blood MODERATE Ery/ul (0-5); Glucose NEGATIVE (NEGATIVE); Ketones NEGATIVE (NEGATIVE); Leukocyte Esterase MODERATE (NEGATIVE); Mucus SLIGHT /HPF (NEGATIVE); Nitrite NEGATIVE (NEGATIVE); Protein,Urine Dip NEGATIVE (Negative); Urobilinogen NEGATIVE mg/dL (0-1)
[2020-01-13 15:30] LABS: Amphetamine,Urine NEGATIVE (NEGATIVE); Barbiturate,Urine NEGATIVE (NEGATIVE); Benzodiazepine,Urine NEGATIVE (NEGATIVE); Cocaine,Urine NEGATIVE (NEGATIVE); Methadone,Urine NEGATIVE (NEGATIVE); Opiate,Urine POSITIVE (NEGATIVE); PCP,Urine NEGATIVE (NEGATIVE); THC,Urine NEGATIVE (NEGATIVE)
[2020-01-13] MEDS ORDERED: Ntg 0.2MG/Ml in D5W GLASS*** 250 ML IV PRN (16:26)
[2020-01-13] MEDS: MORPHINE SULFATE 2 MG INJ IV PRN ×2 (16:37→18:44)
[2020-01-13] MEDS ORDERED: Sodium Chloride 0.9% 1000 ML 1,000 ML IV SCH (16:45)
[2020-01-13] MEDS ORDERED: Heparin 25,000 units/D5W 250ML PREMIX 25,000 UNITS/250 ML BAG IV SCH (17:30)
[2020-01-13] MEDS ORDERED: Heparin 25,000 units/D5W 250ML PREMIX 25,000 UNITS/250 ML BAG IV ONE (17:36)
[2020-01-13 18:38] VITALS: BP 98/51
--- NOTE | 2020-01-18 07:56 | SSS ---
DISCHARGE DIAGNOSIS: UNSTABLE ANGINA WITH ELEVATED TROPONINS. HISTORY: The patient is a 64 year old white female who presented to the emergency room after having problems with chest discomfort. She reports the discomfort had gotten quite severe. She apparently had it somewhat the evening before and woke up the next morning to can some cucumbers after which she began feeling short of breath and heart began racing to approximately 125. The patient presented herself to the emergency room and was admitted to the hospital. The patient was given morphine and Nitro paste in the emergency room and was never really chest pain free. Initial troponin was less than 0.017. However, the next one was significant at 0.06. The patient was still having chest pain. Morphine was unhelpful. She was placed on a Nitro drip. We called Dr. Delvalle who is covering for Dr. Duarte who had apparently accepted transfer should the patient desire to have further intervention. After discussion with the patient she did wish to have anything done to help get rid of the discomfort. She understands that she may need a heart cath and is okay with this. PHYSICAL EXAMINATION: Revealed a well-nourished, well-developed 64 year old white female in moderate distress due to chest discomfort. HEENT: Normocephalic, atraumatic. Pupils equal round reactive to light. Extraocular movements intact. Oropharynx is pink and moist. NECK: Supple without lymphadenopathy, thyromegaly or JVD. CHEST: Clear to auscultation. HEART: Regular rate and rhythm and was noted on the rhythm strip to be paced. ABDOMEN: Soft. No palpable masses. EXTREMITIES: Without cyanosis, clubbing or edema. NEUROLOGIC: The patient is alert and oriented x3. HOSPITAL COURSE: Again, the patient after just approximately two hours after being in the hospital and seen by me shortly after admission was determined to need to be transferred to [facility] for cardiology intervention. This was arranged and the patient was therefore transferred to that facility.
== END 2020-01-13 18:45 | disposition short-term general hospital (02) ==
LOC: ED 11:24 → MED SURG 13:47 → OBSVTOIN 16:50 → ICU 16:50 → INTOOBSV 16:50
PROVIDERS: ADMIT Family Medicine; ATTEND Family Medicine
DX: I20.0 Unstable angina (principal); R79.89 Other specified abnormal findings of blood chemistry; E11.9 Type 2 diabetes mellitus without complications; E03.9 Hypothyroidism, unspecified; Z86.74 Personal history of sudden cardiac arrest; Z85.850 Personal history of malignant neoplasm of thyroid; Z79.899 Other long term (current) drug therapy; Z86.718 Personal history of other venous thrombosis and embolism
CPT/HCPCS: 36000; 36415; 71045; 71260; 80053; 80307; 81001; 82962; 83735; 83880; 84484; 85025; 85379; 87077; 87086; 87186; 93005; 93041; 93268; 94760; 94762; 96374; 96376; 99285; G0378; J1644; J2270; A9270-GY

== ENCOUNTER 2020-02-01 22:28 | Observation (INO) | payer MEDICARE ==
[2020-02-01] MEDS ORDERED: solu-CORTEF 100MG ONE (23:13)
[2020-02-01] MEDS ORDERED: Sodium Chloride 0.9% 1000 ML 1,000 ML ONE (23:13)
[2020-02-01] MEDS ORDERED: Zofran 4 MG/2 ML VIAL ONE (23:22)
[2020-02-01 23:46] LABS: BASOPHIL % 0.3 % (0.0-0.4); Basophil (Absolute #) 0.04 (0-0.4); Eosinophil % 0.6 % (0.00-5.0); Eosinophil (Absolute #) 0.09 (0-0.5); Hematocrit 32.2 % (35-47); Hemoglobin 9.9 gm/dl (12.0-16.0); Lymphocyte (Absolute #) 1.52 (1.0-4.6); Mean Cell Volume 87.7 fl (78-100); Mean Corpuscular Hgb Concent. 30.7 g/dl (32-36); Mean Platelet Volume 9.6 fl (7.5-11.0); Monocyte (Absolute #) 0.87 (0.0-1.3); Monocytes % 5.7 % (0.0-12.0); Neutrophil % 83.4 % (36.0-66.0); Platelet Count 276 K/mm3 (150-450); Red Blood Count 3.67 M/mm3 (4.1-5.4); Red Cell Distribution Width 15.2 % (11.5-14.0); White Blood Count 15.2 K/mm3 (4.0-10.5)
[2020-02-01 23:49] LABS: A-aADO2 -1; ABG HEMOGLOBIN 9.9; ABG POTASSIUM 4.1 (3.5-5.1); ARTERIAL BLD GAS O2 SATURATION 98.8 % (95-100); ARTERIAL BLOOD GAS BASE EXCESS -1.3 (-2.0-2.0); ARTERIAL BLOOD GAS FIO2 21 %; ARTERIAL BLOOD GAS PCO2 35 mmHg (35-45); ARTERIAL BLOOD GAS PO2 107 mmHg (75-100); ARTERIAL BLOOD GAS pH 7.42 (7.35-7.45); CARBOXYHEMOGLOBIN 1.3 % THgb (0.0-6.9); HCO3- 22.7 (22-28); HGB O2 SAT 96.2 g/dF (94-100); Lactic Acid 0.7 (0.4-2.0); Methhemoglobin 1.3 % (1.4-1.5); paO2 pAO1 1.01
[2020-02-01 23:50] LABS: ABG SITE RIGHT RADIAL; ALLEN TEST OK? YES
[2020-02-02 00:02] LABS: ALBUMIN 3.7 g/dL (3.5-5.0); ANION GAP 9.1 MEQ/L (5-15); BILIRUBIN,TOTAL 0.9 mg/dL (0.2-1.3); Calcium 8.9 mg/dL (8.4-10.2); Creatinine 1 1.32 mg/dL (0.52-1.04); EST GLOMERULAR FILTRATION RATE 43.2 ML/MIN; MAGNESIUM 1.7 mg/dL (1.6-2.3); Potassium 4.2 mmol/L (3.5-5.1); TROPONIN 0.034 ng/mL (0.000-0.034)
--- NOTE | 2020-02-02 00:03 | ERPHSYRPT ---
- History of Present Illness Time Seen by Provider: 02/01/20 22:35 Source: patient Exam Limitations: no limitations Patient Subjective Stated Complaint: pt c/o nausea, vomiting all day, prod cough with dark green sputum, headache, achiness, sob, decreased b/p of 67/38 at home. Triage Nursing Assessment: pt c/o nausea, vomiting all day, prod cough with dark green sputum, headache, achiness, sob, decreased b/p of 67/38 at home. Lungs clear, heart tones reg, pt has pacer. Pt does not appear to be in any distress. Physician History: Patient is a 64-year-old female presents to our ED with complaints of nausea vomiting productive cough shortness of breath generalized myalgias global headache and generalized weakness. Symptoms started today and have been progressive. Symptoms are mild to moderate in intensity. No specific worsening or improving factors. No active chest pain. No trauma. Patient denies cold e xposure. She voices no other complaints or concerns at this time. Allergies/Adverse Reactions: adhesive Allergy (Mild, Verified 02/01/20 23:48) Blisters codeine [Codeine] Allergy (Mild, Verified 02/01/20 23:48) Nausea and Vomiting Sulfa (Sulfonamide Antibiotics) [Sulfa(Sulfonamide Antibiotics)] Allergy (Mild, Verified 02/01/20 23:48) Nausea and Vomiting iron Adverse Reaction (Intermediate, Verified 02/01/20 23:48) Nausea oxycodone [From Percocet] Adverse Reaction (Intermediate, Verified 02/01/20 23:48) Vomiting Home Medications: Tizanidine HCl 6 mg PO TID PRN PRN 11/10/17 [History] Furosemide [Lasix] 20 mg PO DAILY PRN 03/09/18 [History] Promethazine HCl 25 mg [Phenergan 25 mg] 25 mg PO Q6H PRN PRN 01/14/19 [History] Levothyroxine Sodium [Synthroid] 300 mcg PO BID 04/29/19 [History] Nitroglycerin 0.4 mg SL Q5MIN PRN MR X 3 PRN 04/29/19 [History] Famotidine 20 mg [Pepcid 20 MG] 40 mg PO DAILY 09/16/19 [History] Metoprolol Succinate 50 mg PO DAILY 09/20/19 [History] Hx Tetanus, Diphtheria Vaccination/Date Given: Yes Hx Influenza Vaccination/Date Given: No Hx Pneumococcal Vaccination/Date Given: No Immunizations Up to Date: Yes Travel Risk - International Travel Have you traveled outside of the country in past 3 weeks: No - Coronavirus Screening Are you exhibiting any of the following symptoms?: Yes Symptoms: Fever, Cough: New Onset, Shortness of Breath, Vomiting/Diarrhea, H eadaches/Body Aches/Fatigue - Past Medical History Pertinent Past Medical History: Yes Neurological History: Migraines, Stroke ENT History: No Pertinent History Cardiac History: Angina, Congestive Heart Failure, Coronary Artery Disease, Deep Vein Thrombosis, Other Respiratory History: Asthma Endocrine Medical History: Diabetes Type II, Hypothyroidism, Thyroid Cancer Musculoskeletal History: Other GI Medical History: GERD, Hernia, Other History: Other Psycho-Social History: No Pertinent History Female Reproductive Disorders: Endometriosis Other Medical History: Cardiac arrest, DMII, thyroid removal, hysterectomy, low blood pressure, Back pain. hx afib. hiatal hernia. recent cough and congestion - Past Surgical History Past Surgical History: Yes Neuro Surgical History: No Pertinent History Cardiac: Cardiac Catheterization, Internal Defibrillator, Pacemaker, Other Respiratory: No Pertinent History Gastrointestinal: Appendectomy, Cholecystectomy, Colon Resection, Hernia Repair, Other Genitourinary: No Pertinent History Musculoskeletal: Orthopedic Surgery Female Surgical History: Hysterectomy Other Surgical History: THYROID REMOVED, 40% and 50% blockages found with last heart cath about 4 years ago. ankle surgery d/t break,ileostomy, CVL port removed and replaced, PICC line placed for poor venous access. port placed 1 week ago. ostomy repair due to blockage 09/02, back surgery and 4 I&D september and october and november 2017. 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 TLIF fused discs in back. OCTOBER 2018 CAROTIDECTOMY AND LYMPH NODE REMOVAL ON RIGHT SIDE. Right Parotid gland removed. "filter for blood clots 2018" - Social History Smoking Status: Never smoker Exposure to second hand smoke: No Alcohol Use: None Drug Use: none Patient Lives Alone: No Significant Family History: heart disease, cancer, diabetes - Female History Hx Now: No - Nursing Vital Signs Nursing Vital Signs: Initial Vital Signs Temperature 97.7 F 02/01/20 22:28 Pulse Rate 80 02/01/20 22:28 Respiratory Rate 24 02/01/20 22:28 Blood Pressure 81/49 02/01/20 22:28 O2 Sat by Pulse Oximetry 94 L 02/01/20 22:28 Pain Scale Pain Intensity 7 - Physical Exam SpO2: 96 - Course Nursing assessment & vital signs reviewed: Yes EKG Interpreted by Me: RATE (80. Ventricular paced rhythm. ), NORMAL AXIS - Radiology Exams Chest X-ray Interpretation: Interpreted by me (No infiltrate consolidation no effusion or pneumothorax. Normal bony thorax. Negative chest x-ray) Ordered Tests: Active Orders 24 hr Category Date Time Status Up With Assistance ROUTINE Activity 02/02/20 02:45 Ordered Code Status Order ROUTINE Care 02/02/20 02:46 Ordered IV Care Q6H Care 02/02/20 02:46 Ordered POCT Glucose Check Q6H Care 02/02/20 02:45 Ordered Anrdei Hose, Apply ROUTINE Care 02/02/20 02:46 Ordered Telemetry q4h Care 02/02/20 02:45 Ordered Weight,Daily 0600 Care 02/02/20 02:46 Ordered Consistent Carbohydrate Diet 1800 Calorie Diet 02/02/20 Breakfast Ordered CHEST 1 VIEW (PORTABLE) Routine Exams 02/01/20 23:49 Taken ARTERIAL BLOOD GASES Urgent Lab 02/01/20 23:31 Completed BLOOD CULTURE Stat Lab 02/01/20 23:25 Received BLOOD CULTURE Stat Lab 02/01/20 23:25 Received CBC AM.LAB Lab 02/02/20 04:00 Ordered CBC W DIFF Stat Lab 02/01/20 23:25 Completed CMP AM.LAB Lab 02/02/20 04:00 Ordered CMP Stat Lab 02/01/20 23:25 Completed CULTURE,URINE Stat Lab 02/01/20 23:25 Received D-DIMER QUANTITATIVE Stat Lab 02/01/20 23:25 Completed Lactic Acid Urgent Lab 02/01/20 23:31 Completed MAGNESIUM Stat Lab 02/01/20 23:25 Completed TROPONIN Stat Lab 02/01/20 23:25 Completed UA W/RFX UR CULTURE Stat Lab 02/01/20 23:25 Completed Pulse Oximetry CONTINUOUS RT 02/02/20 02:49 Ordered Medication Summary Generic Name Dose Route Start Last Admin Trade Name Freq PRN Reason Stop Dose Admin Albuterol/Ipratropium 3 ml 02/02/20 02:53 Duoneb 0.5-3 Mg/3 Ml Neb IH 02/02/20 02:54 STAT ONE Azithromycin / Sodium Chloride 250 mls @ 125 mls/hr 02/02/20 02:50 IV 02/02/20 04:49 STAT ONE Ceftriaxone Sodium/Dextrose 2 g in 50 mls @ 100 mls/hr 02/02/20 02:50 Rocephin 2 Gm-D5w 50ml Bag IV 02/02/20 03:19 STAT STA Lab/Rad Data: Laboratory Result Diagrams 02/01/20 23:25 02/01/20 23:25 Laboratory Results 02/01/20 02/01/20 02/01/20 Range/Units 23:35 23:31 23:25 WBC (4.0-10.5) K/mm3 RBC (4.1-5.4) M/mm3 Hgb (12.0-16.0) gm/dl Hct (35-47) % MCV (78-100) fl MCH (26-32) pg MCHC (32-36) g/dl RDW (11.5-14.0) % Plt Count (150-450) K/mm3 MPV (7.5-11.0) fl Gran % (36.0-66.0) % Eos # (Auto) (0-0.5) Absolute Lymphs (auto) (1.0-4.6) Absolute Monos (auto) (0.0-1.3) Lymphocytes % (24.0-44.0) % Monocytes % (0.0-12.0) % Eosinophils % (0.00-5.0) % Basophils % (0.0-0.4) % Absolute Granulocytes (1.4-6.9) Basophils # (0-0.4) D-Dimer (215-500) ng/mL Puncture Site RIGHT RADIAL pCO2 35 (35-45) mmHg pO2 107 H (75-100) mmHg Base Excess -1.3 (-2.0-2.0) O2 Saturation 96.2 (94-100) g/dF ABG pH 7.42 (7.35-7.45) ABG HCO3 22.7 (22-28) ABG O2 Sat (Measured) 98.8 (95-100) % Ivan Test YES A-a Gradient -1 a/A Ratio 1.01 Hemoglobin 9.9 Carboxyhemoglobin 1.3 (0.0-6.9) % THgb Methemoglobin 1.3 L (1.4-1.5) % Temperature 37.0 C POC O2 Flow Rate 21 % Sodium (137-145) mmol/L Potassium 4.1 (3.5-5.1) mmol/L Chloride (98-107) mmol/L Carbon Dioxide (22-30) mmol/L Anion Gap (5-15) MEQ/L BUN (7-17) mg/dL Creatinine (0.52-1.04) mg/dL Estimated GFR ML/MIN Glucose (74-106) mg/dL Lactic Acid 0.7 (0.4-2.0) Calcium (8.4-10.2) mg/dL Magnesium (1.6-2.3) mg/dL Total Bilirubin (0.2-1.3) mg/dL AST (14-36) U/L ALT (0-35) U/L Alkaline Phosphatase (38-126) U/L Troponin I (0.000-0.034) ng/mL Serum Total Protein (6.3-8.2) g/dL Albumin (3.5-5.0) g/dL Urine Color ROSANNA (YELLOW) Urine Appearance CLOUDY (CLEAR) Urine pH 5.0 (5-6) Ur Specific [place] 1.021 (1.005-1.025) Urine Protein 30 (Negative) Urine Ketones TRACE (NEGATIVE) Urine Blood MODERATE (0-5) Hemal/ul Urine Nitrite NEGATIVE (NEGATIVE) Urine Bilirubin SMALL (NEGATIVE) Urine Urobilinogen 2 (0-1) mg/dL Ur Leukocyte Esterase LARGE (NEGATIVE) Urine WBC (Auto) >100 (0-5) /HPF Urine RBC (Auto) 3-5 (0-2) /HPF U Epithel Cells (Auto) RARE (FEW) /HPF Urine Bacteria (Auto) MODERATE (NEGATIVE) /HPF Unidentified Crystals 2-5 (NEGATIVE) /HPF Other Casts (Auto) NEGATIVE (NEGATIVE) /LPF Urine Mucus (Auto) SLIGHT (NEGATIVE) /HPF Urine Culture Reflexed YES (NO) Urine Glucose 50 (NEGATIVE) mg/dL SARS-CoV-2 (PCR) NEGATIVE (NEGATIVE) 02/01/20 02/01/20 02/01/20 Range/Units 23:25 23:25 23:25 WBC 15.2 H (4.0-10.5) K/mm3 RBC 3.67 L (4.1-5.4) M/mm3 Hgb 9.9 L (12.0-16.0) gm/dl Hct 32.2 L (35-47) % MCV 87.7 (78-100) fl MCH 27.0 (26-32) pg MCHC 30.7 L (32-36) g/dl RDW 15.2 H (11.5-14.0) % Plt Count 276 (150-450) K/mm3 MPV 9.6 (7.5-11.0) fl Gran % 83.4 H (36.0-66.0) % Eos # (Auto) 0.09 (0-0.5) Absolute Lymphs (auto) 1.52 (1.0-4.6) Absolute Monos (auto) 0.87 (0.0-1.3) Lymphocytes % 10.0 L (24.0-44.0) % Monocytes % 5.7 (0.0-12.0) % Eosinophils % 0.6 (0.00-5.0) % Basophils % 0.3 (0.0-0.4) % Absolute Granulocytes 12.70 H (1.4-6.9) Basophils # 0.04 (0-0.4) D-Dimer 1232 H* (215-500) ng/mL Puncture Site pCO2 (35-45) mmHg pO2 (75-100) mmHg Base Excess (-2.0-2.0) O2 Saturation (94-100) g/dF ABG pH (7.35-7.45) ABG HCO3 (22-28) ABG O2 Sat (Measured) (95-100) % Ivan Test A-a Gradient a/A Ratio Hemoglobin Carboxyhemoglobin (0.0-6.9) % THgb Methemoglobin (1.4-1.5) % Temperature C POC O2 Flow Rate % Sodium 137 (137-145) mmol/L Potassium 4.2 (3.5-5.1) mmol/L Chloride 107 (98-107) mmol/L Carbon Dioxide 24 (22-30) mmol/L Anion Gap 9.1 (5-15) MEQ/L BUN 19 H (7-17) mg/dL Creatinine 1.32 H (0.52-1.04) mg/dL Estimated GFR 43.2 ML/MIN Glucose 109 H (74-106) mg/dL Lactic Acid (0.4-2.0) Calcium 8.9 (8.4-10.2) mg/dL Magnesium 1.7 (1.6-2.3) mg/dL Total Bilirubin 0.90 (0.2-1.3) mg/dL AST 22 (14-36) U/L ALT 9 (0-35) U/L Alkaline Phosphatase 90 (38-126) U/L Troponin I 0.034 (0.000-0.034) ng/mL Serum Total Protein 7.0 (6.3-8.2) g/dL Albumin 3.7 (3.5-5.0) g/dL Urine Color (YELLOW) Urine Appearance (CLEAR) Urine pH (5-6) Ur Specific [place] (1.005-1.025) Urine Protein (Negative) Urine Ketones (NEGATIVE) Urine Blood (0-5) Hemal/ul Urine Nitrite (NEGATIVE) Urine Bilirubin (NEGATIVE) Urine Urobilinogen (0-1) mg/dL Ur Leukocyte Esterase (NEGATIVE) Urine WBC (Auto) (0-5) /HPF Urine RBC (Auto) (0-2) /HPF U Epithel Cells (Auto) (FEW) /HPF Urine Bacteria (Auto) (NEGATIVE) /HPF Unidentified Crystals (NEGATIVE) /HPF Other Casts (Auto) (NEGATIVE) /LPF Urine Mucus (Auto) (NEGATIVE) /HPF Urine Culture Reflexed (NO) Urine Glucose (NEGATIVE) mg/dL SARS-CoV-2 (PCR) (NEGATIVE) - Progress Progress: improved Progress Note: 02/02/20 02:55 Patient reassessed. She is breathing easier with the oxygen. Hypoxia improved with oxygen application. Work-up reveals a hemoglobin of 9.9. This appears to be a 1 g drop from hemoglobin 1 month ago. D-dimer is elevated. Patient not a candidate for CTA due to renal insufficiency and decreased GFR. Patient currently on Eliquis. Case discussed with Dr. Mccallum who accepts admission to observation. Plan of care discussed with patient. She agrees to admission to [facility] for further evaluation and treatment. Blood cultures obtained. Patient has a urinary tract infection antibiotics infused. Antibiotics will cover possible pneumonia/COPD and UTI. DuoNeb administered. 02/02/20 02:[address] Jaki Will see patient in: hospital (observation) Counseled pt/family regarding: lab results, diagnosis, need for follow-up, rad results - Departure Departure Disposition: Observation Clinical Impression: UTI (urinary tract infection), Hypoxia, Tachycardia, Renal insufficiency, Anemia Condition: Stable Critical Care Time: No Referrals: WAQAR MCCALLUM [Primary Care Provider] -
[2020-02-02] MEDS ORDERED: MORPHINE SULFATE 2 MG INJ ONE (02:20)
[2020-02-02 02:31] LABS: Appearance CLOUDY (CLEAR); Bilirubin SMALL (NEGATIVE); Blood MODERATE Ery/ul (0-5); Epithelial Cells RARE /HPF (FEW); Glucose 50 mg/dL (NEGATIVE); Ketones TRACE (NEGATIVE); Leukocyte Esterase LARGE (NEGATIVE); Mucus SLIGHT /HPF (NEGATIVE); Nitrite NEGATIVE (NEGATIVE); Protein,Urine Dip 30 (Negative); Specific Gravity 1.021 (1.005-1.025); Urobilinogen 2 mg/dL (0-1); WBC >100 /HPF (0-5)
[2020-02-02 02:33] LABS: Bacteria MODERATE /HPF (NEGATIVE)
[2020-02-02] MEDS ORDERED: ZITHROMAX IV 500 MG*** 500 MG in Sodium Chloride 0.9% 250 ML 250 ML IV ONE (02:50)
[2020-02-02] MEDS ORDERED: ROCEPHIN 2 Gm-D5w 50ML BAG** 2 G/50 ML IVPB IV STA (02:50)
[2020-02-02] MEDS ORDERED: DUONEB 0.5-3 MG/3 ml Neb IH ONE ×2 (02:53→02:57)
[2020-02-02] MEDS ORDERED: ROCEPHIN 2 Gm-D5w 50ML BAG** 2 G/50 ML IVPB IV ONE (03:03)
[2020-02-02] MEDS ORDERED: Zithromax 500 MG/ 250 ML NaCl Premix 500 MG/250 ML IVPB IV STA (03:44)
[2020-02-02] MEDS ORDERED: Zithromax 500 MG/ 250 ML NaCl Premix 500 MG/250 ML IVPB IV ONE (03:47)
[2020-02-02 04:41] LABS: Hematocrit 31.8 % (35-47); Hemoglobin 9.8 gm/dl (12.0-16.0); Mean Cell Volume 88.6 fl (78-100); Mean Corpuscular Hemoglobin 27.3 pg (26-32); Mean Corpuscular Hgb Concent. 30.8 g/dl (32-36); Mean Platelet Volume 9.6 fl (7.5-11.0); Platelet Count 235 K/mm3 (150-450); Red Blood Count 3.59 M/mm3 (4.1-5.4); Red Cell Distribution Width 15.1 % (11.5-14.0); White Blood Count 14.3 K/mm3 (4.0-10.5)
[2020-02-02 04:53] LABS: ALBUMIN 3.6 g/dL (3.5-5.0); ANION GAP 12.4 MEQ/L (5-15); BILIRUBIN,TOTAL 0.6 mg/dL (0.2-1.3); Calcium 8.8 mg/dL (8.4-10.2); Creatinine 1 1.21 mg/dL (0.52-1.04); EST GLOMERULAR FILTRATION RATE 47.8 ML/MIN; Potassium 3.9 mmol/L (3.5-5.1); Total Protein 6.9 g/dL (6.3-8.2)
--- NOTE | 2020-02-02 09:01 | XRAY ---
Indication: Chest pain and weakness. Comparison: January 13, 2020. Portable chest remains clear. Heart and mediastinal structures within normal limits for AP portable technique with stable right Port-A-Cath and left AICD. No new/acute findings.
[2020-02-02] MEDS ORDERED: NORCO 5/325 MG PO PRN (09:36)
--- NOTE | 2020-02-02 09:41 | PCM.HP ---
History of Present Illness - Chief Complaint Chief Complaint: pneumonia, UTI History of Present Illness: is a 64 year old female with cough for the last 2 weeks, productive of purulent sputum, had fever and headache yesterday so came to ER. no dysuria but has some itching and frequency. longstanding history of multiple DVT and emboli, has an IVC filter in place and continues on her eliquis but recently discovered with heavy clot burden below filter, planned stenting intervention next week per patient. - Review of Systems Constitutional: Fever, No Chills Respiratory: Cough, Short Of Breath Cardiac: No Chest Pain, No Edema, No Syncope Skin: No Rash Medications & Allergies Home Medications: Home Medication List Tizanidine HCl 6 mg PO TID PRN PRN 11/10/17 [History Confirmed 02/02/20] Furosemide [Lasix] 20 mg PO DAILY PRN PRN 03/09/18 [History Confirmed 02/02/20] Promethazine HCl 25 mg [Phenergan 25 mg] 25 mg PO Q6H PRN PRN 01/14/19 [History Confirmed 02/02/20] Levothyroxine Sodium [Synthroid] 300 mcg PO BID 04/29/19 [History Confirmed 02/02/20] Nitroglycerin 0.4 mg SL Q5MIN PRN MR X 3 PRN 04/29/19 [History Confirmed 02/02/20] Morphine Sulfate 30 mg PO DAILY PRN PRN #30 tablet MDD 1 09/05/19 [Rx Confirmed 02/02/20] Famotidine 20 mg [Pepcid 20 MG] 40 mg PO DAILY 09/16/19 [History Confirmed 02/02/20] Metoprolol Succinate 50 mg PO BID 09/20/19 [History Confirmed 02/02/20] Apixaban [Eliquis] 5 mg PO BID 1 Days 01/03/20 [Rx Confirmed 02/02/20] Aspirin EC 81 mg [Ecotrin 81 mg] 81 mg PO DAILY 02/02/20 [History Confirmed 02/02/20] Allergies/Adverse Reactions: Allergies Allergy/AdvReac Type Severity Reaction Status Date / Time adhesive Allergy Mild Blisters Verified 02/01/20 23:48 codeine [Codeine] Allergy Mild Nausea and Verified 02/01/20 23:48 Vomiting Sulfa (Sulfonamide Allergy Mild Nausea and Verified 02/01/20 23:48 Antibiotics) Vomiting [Sulfa(Sulfonamide Antibiotics)] iron AdvReac Intermediate Nausea Verified 02/01/20 23:48 oxycodone [From Percocet] AdvReac Intermediate Vomiting Verified 02/01/20 23:48 - Past Medical History Past Medical History: Yes Neurological History: Migraines, Stroke ENT History: No Pertinent History Cardiac History: Angina, Congestive Heart Failure, Coronary Artery Disease, Deep Vein Thrombosis, Other Respiratory History: Asthma Endocrine Medical History: Diabetes Type II, Hypothyroidism, Thyroid Cancer Musculoskelatal History: Other GI Medical History: GERD, Hernia, Other History: Other Pyscho-Social History: No Pertinent History Reproductive Disorders: Endometriosis Comment: Cardiac arrest, DMII, thyroid removal, hysterectomy, low blood pressure, Back pain. hx afib. hiatal hernia. recent cough and congestion - Female History Are you now?: No - Past Surgical History Past Surgical History: Yes Neuro Surgical History: No Pertinent History Cardiac History: Cardiac Catheterization, Internal Defibrillator, Pacemaker, Other Respiratory Surgery: No Pertinent History GI Surgical History: Appendectomy, Cholecystectomy, Colon Resection, Hernia Repair, Other Genitourinary Surgical Hx: No Pertinent History Musculskeletal Surgical Hx: Orthopedic Surgery Female Surgical History: Hysterectomy Other Surgical History: THYROID REMOVED, 40% and 50% blockages found with last heart cath about 4 years ago. ankle surgery d/t break,ileostomy, CVL port removed and replaced, PICC line placed for poor venous access. port placed approximately 1 month ago. ostomy repair due to blockage 09/02, back surgery and 4 I&D september and october and november 2017. 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 TLIF fused discs in back. OCTOBER 2018 CAROTIDECTOMY AND LYMPH NODE REMOVAL ON RIGHT SIDE. Right Parotid gland removed. "filter for blood clots 2018" - Social History Smoking Status: Never smoker Exposure to second hand smoke: No Alcohol: None Drug Use: none Significant Family History: heart disease, cancer, diabetes - Physical Exam Vital Signs: Vital Signs - 24 hr Temp Pulse Resp BP Pulse Ox 02/02/20 06:36 97.5 F 74 19 101/54 99 02/02/20 06:33 97 02/02/20 05:09 80 16 87/58 99 02/02/20 04:00 80 18 93/59 98 02/02/20 03:10 80 18 98 02/02/20 03:00 80 16 84/60 99 02/02/20 02:58 96 02/02/20 02:26 80 18 101/64 92 L 02/02/20 01:12 80 16 84/57 97 02/02/20 00:00 80 16 80/54 99 02/01/20 23:35 80 22 78/51 96 02/01/20 22:45 96 02/01/20 22:40 24 94 L 02/01/20 22:28 97.7 F 80 24 81/49 94 L Oxygen-Last 24 hours Oxygen Flowrate (L/min)-RT 2 General Appearance: no apparent distress Neurologic Exam: alert, oriented x 3, cooperative Respiratory Exam: rhonchi, No accessory muscle use Cardiovascular Exam: regular rate/rhythm, normal heart sounds, normal peripheral pulses Gastrointestinal/Abdomen Exam: soft, normal bowel sounds, No tenderness, No mass Skin Exam: normal color, warm, dry, No rash Results - Labs Lab/Micro Results: Lab Results-Last 24 Hours 02/01/20 02/01/20 02/01/20 Range/Units 23:25 23:25 23:25 WBC 15.2 H (4.0-10.5) K/mm3 RBC 3.67 L (4.1-5.4) M/mm3 Hgb 9.9 L (12.0-16.0) gm/dl Hct 32.2 L (35-47) % MCV 87.7 (78-100) fl MCH 27.0 (26-32) pg MCHC 30.7 L (32-36) g/dl RDW 15.2 H (11.5-14.0) % Plt Count 276 (150-450) K/mm3 MPV 9.6 (7.5-11.0) fl Gran % 83.4 H (36.0-66.0) % Eos # (Auto) 0.09 (0-0.5) Absolute Lymphs (auto) 1.52 (1.0-4.6) Absolute Monos (auto) 0.87 (0.0-1.3) Lymphocytes % 10.0 L (24.0-44.0) % Monocytes % 5.7 (0.0-12.0) % Eosinophils % 0.6 (0.00-5.0) % Basophils % 0.3 (0.0-0.4) % Absolute Granulocytes 12.70 H (1.4-6.9) Basophils # 0.04 (0-0.4) D-Dimer 1232 H* (215-500) ng/mL Puncture Site pCO2 (35-45) mmHg pO2 (75-100) mmHg Base Excess (-2.0-2.0) O2 Saturation (94-100) g/dF ABG pH (7.35-7.45) ABG HCO3 (22-28) ABG O2 Sat (Measured) (95-100) % Ivan Test A-a Gradient a/A Ratio Hemoglobin Carboxyhemoglobin (0.0-6.9) % THgb Methemoglobin (1.4-1.5) % Temperature C POC O2 Flow Rate % Sodium 137 (137-145) mmol/L Potassium 4.2 (3.5-5.1) mmol/L Chloride 107 (98-107) mmol/L Carbon Dioxide 24 (22-30) mmol/L Anion Gap 9.1 (5-15) MEQ/L BUN 19 H (7-17) mg/dL Creatinine 1.32 H (0.52-1.04) mg/dL Estimated GFR 43.2 ML/MIN Glucose 109 H (74-106) mg/dL Lactic Acid (0.4-2.0) Calcium 8.9 (8.4-10.2) mg/dL Magnesium 1.7 (1.6-2.3) mg/dL Total Bilirubin 0.90 (0.2-1.3) mg/dL AST 22 (14-36) U/L ALT 9 (0-35) U/L Alkaline Phosphatase 90 (38-126) U/L Troponin I 0.034 (0.000-0.034) ng/mL Serum Total Protein 7.0 (6.3-8.2) g/dL Albumin 3.7 (3.5-5.0) g/dL Urine Color (YELLOW) Urine Appearance (CLEAR) Urine pH (5-6) Ur Specific [place] (1.005-1.025) Urine Protein (Negative) Urine Ketones (NEGATIVE) Urine Blood (0-5) Hemal/ul Urine Nitrite (NEGATIVE) Urine Bilirubin (NEGATIVE) Urine Urobilinogen (0-1) mg/dL Ur Leukocyte Esterase (NEGATIVE) Urine WBC (Auto) (0-5) /HPF Urine RBC (Auto) (0-2) /HPF U Epithel Cells (Auto) (FEW) /HPF Urine Bacteria (Auto) (NEGATIVE) /HPF Unidentified Crystals (NEGATIVE) /HPF Other Casts (Auto) (NEGATIVE) /LPF Urine Mucus (Auto) (NEGATIVE) /HPF Urine Culture Reflexed (NO) Urine Glucose (NEGATIVE) mg/dL SARS-CoV-2 (PCR) (NEGATIVE) 02/01/20 02/01/20 02/01/20 Range/Units 23:25 23:31 23:35 WBC (4.0-10.5) K/mm3 RBC (4.1-5.4) M/mm3 Hgb (12.0-16.0) gm/dl Hct (35-47) % MCV (78-100) fl MCH (26-32) pg MCHC (32-36) g/dl RDW (11.5-14.0) % Plt Count (150-450) K/mm3 MPV (7.5-11.0) fl Gran % (36.0-66.0) % Eos # (Auto) (0-0.5) Absolute Lymphs (auto) (1.0-4.6) Absolute Monos (auto) (0.0-1.3) Lymphocytes % (24.0-44.0) % Monocytes % (0.0-12.0) % Eosinophils % (0.00-5.0) % Basophils % (0.0-0.4) % Absolute Granulocytes (1.4-6.9) Basophils # (0-0.4) D-Dimer (215-500) ng/mL Puncture Site RIGHT RADIAL pCO2 35 (35-45) mmHg pO2 107 H (75-100) mmHg Base Excess -1.3 (-2.0-2.0) O2 Saturation 96.2 (94-100) g/dF ABG pH 7.42 (7.35-7.45) ABG HCO3 22.7 (22-28) ABG O2 Sat (Measured) 98.8 (95-100) % Ivan Test YES A-a Gradient -1 a/A Ratio 1.01 Hemoglobin 9.9 Carboxyhemoglobin 1.3 (0.0-6.9) % THgb Methemoglobin 1.3 L (1.4-1.5) % Temperature 37.0 C POC O2 Flow Rate 21 % Sodium (137-145) mmol/L Potassium 4.1 (3.5-5.1) mmol/L Chloride (98-107) mmol/L Carbon Dioxide (22-30) mmol/L Anion Gap (5-15) MEQ/L BUN (7-17) mg/dL Creatinine (0.52-1.04) mg/dL Estimated GFR ML/MIN Glucose (74-106) mg/dL Lactic Acid 0.7 (0.4-2.0) Calcium (8.4-10.2) mg/dL Magnesium (1.6-2.3) mg/dL Total Bilirubin (0.2-1.3) mg/dL AST (14-36) U/L ALT (0-35) U/L Alkaline Phosphatase (38-126) U/L Troponin I (0.000-0.034) ng/mL Serum Total Protein (6.3-8.2) g/dL Albumin (3.5-5.0) g/dL Urine Color [place] (YELLOW) Urine Appearance CLOUDY (CLEAR) Urine pH 5.0 (5-6) Ur Specific [place] 1.021 (1.005-1.025) Urine Protein 30 (Negative) Urine Ketones TRACE (NEGATIVE) Urine Blood MODERATE (0-5) Hemal/ul Urine Nitrite NEGATIVE (NEGATIVE) Urine Bilirubin SMALL (NEGATIVE) Urine Urobilinogen 2 (0-1) mg/dL Ur Leukocyte Esterase LARGE (NEGATIVE) Urine WBC (Auto) >100 (0-5) /HPF Urine RBC (Auto) 3-5 (0-2) /HPF U Epithel Cells (Auto) RARE (FEW) /HPF Urine Bacteria (Auto) MODERATE (NEGATIVE) /HPF Unidentified Crystals 2-5 (NEGATIVE) /HPF Other Casts (Auto) NEGATIVE (NEGATIVE) /LPF Urine Mucus (Auto) SLIGHT (NEGATIVE) /HPF Urine Culture Reflexed YES (NO) Urine Glucose 50 (NEGATIVE) mg/dL SARS-CoV-2 (PCR) NEGATIVE (NEGATIVE) 02/02/20 02/02/20 Range/Units 04:38 04:38 WBC 14.3 H (4.0-10.5) K/mm3 RBC 3.59 L (4.1-5.4) M/mm3 Hgb 9.8 L (12.0-16.0) gm/dl Hct 31.8 L (35-47) % MCV 88.6 (78-100) fl MCH 27.3 (26-32) pg MCHC 30.8 L (32-36) g/dl RDW 15.1 H (11.5-14.0) % Plt Count 235 (150-450) K/mm3 MPV 9.6 (7.5-11.0) fl Gran % (36.0-66.0) % Eos # (Auto) (0-0.5) Absolute Lymphs (auto) (1.0-4.6) Absolute Monos (auto) (0.0-1.3) Lymphocytes % (24.0-44.0) % Monocytes % (0.0-12.0) % Eosinophils % (0.00-5.0) % Basophils % (0.0-0.4) % Absolute Granulocytes (1.4-6.9) Basophils # (0-0.4) D-Dimer (215-500) ng/mL Puncture Site pCO2 (35-45) mmHg pO2 (75-100) mmHg Base Excess (-2.0-2.0) O2 Saturation (94-100) g/dF ABG pH (7.35-7.45) ABG HCO3 (22-28) ABG O2 Sat (Measured) (95-100) % Ivan Test A-a Gradient a/A Ratio Hemoglobin Carboxyhemoglobin (0.0-6.9) % THgb Methemoglobin (1.4-1.5) % Temperature C POC O2 Flow Rate % Sodium 137 (137-145) mmol/L Potassium 3.9 (3.5-5.1) mmol/L Chloride 108 H (98-107) mmol/L Carbon Dioxide 21 L (22-30) mmol/L Anion Gap 12.4 (5-15) MEQ/L BUN 17 (7-17) mg/dL Creatinine 1.21 H (0.52-1.04) mg/dL Estimated GFR 47.8 ML/MIN Glucose 139 H (74-106) mg/dL Lactic Acid (0.4-2.0) Calcium 8.8 (8.4-10.2) mg/dL Magnesium (1.6-2.3) mg/dL Total Bilirubin 0.60 (0.2-1.3) mg/dL AST 19 (14-36) U/L ALT 9 (0-35) U/L Alkaline Phosphatase 92 (38-126) U/L Troponin I (0.000-0.034) ng/mL Serum Total Protein 6.9 (6.3-8.2) g/dL Albumin 3.6 (3.5-5.0) g/dL Urine Color (YELLOW) Urine Appearance (CLEAR) Urine pH (5-6) Ur Specific [place] (1.005-1.025) Urine Protein (Negative) Urine Ketones (NEGATIVE) Urine Blood (0-5) Hemal/ul Urine Nitrite (NEGATIVE) Urine Bilirubin (NEGATIVE) Urine Urobilinogen (0-1) mg/dL Ur Leukocyte Esterase (NEGATIVE) Urine WBC (Auto) (0-5) /HPF Urine RBC (Auto) (0-2) /HPF U Epithel Cells (Auto) (FEW) /HPF Urine Bacteria (Auto) (NEGATIVE) /HPF Unidentified Crystals (NEGATIVE) /HPF Other Casts (Auto) (NEGATIVE) /LPF Urine Mucus (Auto) (NEGATIVE) /HPF Urine Culture Reflexed (NO) Urine Glucose (NEGATIVE) mg/dL SARS-CoV-2 (PCR) (NEGATIVE) - Radiology Impressions Radiology Exams & Impressions: Radiology Procedures Category Date Time Status CHEST 1 VIEW (PORTABLE) Routine Exams 02/01/20 23:49 Completed - Other Procedures and Tests Respiratory Therapy 02/02/20 06:33 Oxygen NASAL CANNULA 2 lpm Assessment/Plan (1) Pneumonia Current Visit: Yes Status: Acute Assessment & Plan: clinically consistent with pneumonia on history and exam, no obvious infiltrate on chest xray but might be more evident with hydration Code(s): J18.9 - PNEUMONIA, UNSPECIFIED ORGANISM (2) UTI (urinary tract infection) Current Visit: Yes Status: Acute Assessment & Plan: culture pending, covered with rocephin Code(s): N39.0 - URINARY TRACT INFECTION, SITE NOT SPECIFIED (3) Atrial fibrillation Current Visit: No Status: Chronic Qualifiers: Code(s): I48.91 - UNSPECIFIED ATRIAL FIBRILLATION (4) DVT, recurrent, lower extremity, chronic Current Visit: No Status: Chronic Assessment & Plan: known large clot burden below IVC filter so elevated d-dimer is actually expected, she is protected with eliquis and filter so no further workup required as fever and purulent sputum support infectious etiology of cough/dyspnea Code(s): I82.509 - CHRONIC EMBOLISM AND THOMBOS UNSP DEEP VN UNSP LOW EXTRM (5) Hx pulmonary embolism Current Visit: No Status: Chronic Code(s): Z86.711 - PERSONAL HISTORY OF PULMONARY EMBOLISM
[2020-02-02] MEDS ORDERED: MORPHINE SULFATE 30 MG PO PRN (10:03)
[2020-02-02] MEDS: SODIUM CHLORIDE 0.45% W/ 20 mEq KCL 1,000 ML IV SCH (10:31)
[2020-02-02] MEDS: SYNTHROID 150 MCG PO SCH ×2 (10:46→21:30)
[2020-02-02] MEDS: ELIQUIS 2.5 MG TABLET PO SCH ×2 (10:46→21:30)
[2020-02-02] MEDS: Pepcid 20 MG PO SCH (10:48)
[2020-02-02] MEDS: PHENERGAN 25 MG PO PRN ×2 (10:48→20:14)
[2020-02-02] MEDS: Toprol Xl 50 MG PO SCH ×2 (10:48→21:30)
[2020-02-02] MEDS: ECOTRIN 81 MG PO SCH (10:49)
[2020-02-02] MEDS: Ms Contin 15 MG PO PRN (10:49)
[2020-02-02] MEDS: DUONEB 0.5-3 MG/3 ml Neb IH SCH ×2 (13:00→17:43)
[2020-02-02] MEDS ORDERED: FLUZONE QUAD 2020-2021 SYRINGE IM ONE (13:00)
[2020-02-02] MEDS ORDERED: ROCEPHIN 1 Gm-D5w 50 ml Bag** 1 G/50 ML IVPB IV SCH (22:00)
[2020-02-02] MEDS ORDERED: Zithromax 500 MG/ 250 ML NaCl Premix 500 MG/250 ML IVPB IV SCH (22:00)
[2020-02-02] MEDS ORDERED: NON-FORMULARY ITEM (Apixaban [Eliquis] 5 MG) PO SCH (22:00)
[2020-02-02] MEDS: Zofran 4 MG/2 ML VIAL IV PRN (23:46)
[2020-02-03] MEDS: DUONEB 0.5-3 MG/3 ml Neb IH SCH ×2 (00:52→05:40)
[2020-02-03 05:26] LABS: Absolute Neutrophil Ct (ANC) 4.63 (1.4-6.9); BASOPHIL % 0.5 % (0.0-0.4); Basophil (Absolute #) 0.04 (0-0.4); Eosinophil % 6.1 % (0.00-5.0); Eosinophil (Absolute #) 0.45 (0-0.5); Hematocrit 29.8 % (35-47); Hemoglobin 8.8 gm/dl (12.0-16.0); Lymphocyte (Absolute #) 1.62 (1.0-4.6); Lymphocytes % 21.9 % (24.0-44.0); Mean Cell Volume 90.3 fl (78-100); Mean Corpuscular Hemoglobin 26.7 pg (26-32); Mean Corpuscular Hgb Concent. 29.5 g/dl (32-36); Mean Platelet Volume 9.5 fl (7.5-11.0); Monocyte (Absolute #) 0.66 (0.0-1.3); Monocytes % 8.9 % (0.0-12.0); Neutrophil % 62.6 % (36.0-66.0); Platelet Count 231 K/mm3 (150-450); Red Cell Distribution Width 15.3 % (11.5-14.0); White Blood Count 7.4 K/mm3 (4.0-10.5)
[2020-02-03 05:47] LABS: ANION GAP 10.6 MEQ/L (5-15); Calcium 8.6 mg/dL (8.4-10.2); Creatinine 1 1.21 mg/dL (0.52-1.04); EST GLOMERULAR FILTRATION RATE 47.8 ML/MIN
--- NOTE | 2020-02-03 08:17 | PCM.DS ---
Discharge Summary Date of Admission: 02/02/20 05:25 Admitting Physician: WAQAR CASTRO Primary Care Provider: WAQAR CASTRO Allergies Allergies adhesive Allergy (Mild, Verified 02/01/20 23:48) Blisters codeine [Codeine] Allergy (Mild, Verified 02/01/20 23:48) Nausea and Vomiting Sulfa (Sulfonamide Antibiotics) [Sulfa(Sulfonamide Antibiotics)] Allergy (Mild, Verified 02/01/20 23:48) Nausea and Vomiting iron Adverse Reaction (Intermediate, Verified 02/01/20 23:48) Nausea oxycodone [From Percocet] Adverse Reaction (Intermediate, Verified 02/01/20 23:48) Vomiting Hospital Summary - Hospital Course Hospital Course: patient was admitted with cough, fever and sputum production. symptoms x 2 weeks, covid swab was negative, treated for UTI and acute bronchitis. doing grea t at this time - Vitals & Intake/Output Vital Signs: Vital Signs Temperature 97.6 F 02/03/20 07:17 Pulse Rate 80 02/03/20 07:17 Respiratory Rate 18 02/03/20 07:17 Blood Pressure 103/51 02/03/20 07:17 O2 Sat by Pulse Oximetry 96 02/03/20 07:17 Intake & Output: Intake & Output 01/31/20 02/01/20 02/02/20 02/03/20 11:59 11:59 11:59 11:59 Intake Total 1747 Output Total 700 Balance 1047 Weight 96.6 kg 97.5 kg - Lab Result Diagrams: 02/03/20 04:46 02/03/20 04:46 Lab Results-Last 24 Hrs: Lab Results-Last 24 Hours 02/02/20 02/02/20 02/03/20 Range/Units 11:30 17:36 00:09 WBC (4.0-10.5) K/mm3 RBC (4.1-5.4) M/mm3 Hgb (12.0-16.0) gm/dl Hct (35-47) % MCV (78-100) fl MCH (26-32) pg MCHC (32-36) g/dl RDW (11.5-14.0) % Plt Count (150-450) K/mm3 MPV (7.5-11.0) fl Gran % (36.0-66.0) % Eos # (Auto) (0-0.5) Absolute Lymphs (auto) (1.0-4.6) Absolute Monos (auto) (0.0-1.3) Lymphocytes % (24.0-44.0) % Monocytes % (0.0-12.0) % Eosinophils % (0.00-5.0) % Basophils % (0.0-0.4) % Absolute Granulocytes (1.4-6.9) Basophils # (0-0.4) Sodium (137-145) mmol/L Potassium (3.5-5.1) mmol/L Chloride (98-107) mmol/L Carbon Dioxide (22-30) mmol/L Anion Gap (5-15) MEQ/L BUN (7-17) mg/dL Creatinine (0.52-1.04) mg/dL Estimated GFR ML/MIN Glucose (74-106) mg/dL POC Glucometer 76 101 89 (74 to 106) mg/dL Calcium (8.4-10.2) mg/dL 02/03/20 02/03/20 02/03/20 Range/Units 04:46 04:46 06:06 WBC 7.4 (4.0-10.5) K/mm3 RBC 3.30 L (4.1-5.4) M/mm3 Hgb 8.8 L (12.0-16.0) gm/dl Hct 29.8 L (35-47) % MCV 90.3 (78-100) fl MCH 26.7 (26-32) pg MCHC 29.5 L (32-36) g/dl RDW 15.3 H (11.5-14.0) % Plt Count 231 (150-450) K/mm3 MPV 9.5 (7.5-11.0) fl Gran % 62.6 (36.0-66.0) % Eos # (Auto) 0.45 (0-0.5) Absolute Lymphs (auto) 1.62 (1.0-4.6) Absolute Monos (auto) 0.66 (0.0-1.3) Lymphocytes % 21.9 L (24.0-44.0) % Monocytes % 8.9 (0.0-12.0) % Eosinophils % 6.1 H (0.00-5.0) % Basophils % 0.5 (0.0-0.4) % Absolute Granulocytes 4.63 (1.4-6.9) Basophils # 0.04 (0-0.4) Sodium 138 (137-145) mmol/L Potassium 4.0 (3.5-5.1) mmol/L Chloride 110 H (98-107) mmol/L Carbon Dioxide 21 L (22-30) mmol/L Anion Gap 10.6 (5-15) MEQ/L BUN 20 H (7-17) mg/dL Creatinine 1.21 H (0.52-1.04) mg/dL Estimated GFR 47.8 ML/MIN Glucose 100 (74-106) mg/dL POC Glucometer 85 (74 to 106) mg/dL Calcium 8.6 (8.4-10.2) mg/dL Micro Results-Entire Visit: Microbiology 02/01/20 23:25 Urine Culture - Preliminary Urine, Void GRAM NEGATIVE ID AND SENSITIVITY PENDING 02/01/20 23:25 Blood Culture - Preliminary Blood NO GROWTH TO DATE 02/01/20 23:25 Blood Culture - Preliminary Blood NO GROWTH TO DATE Accuchecks Date 02/03/20 Date 02/03/20 Date 02/02/20 Date 02/02/20 Time 17:30 Time 11:30 - Radiology Exams Ordered Rad Exams-Entire Visit: Radiology Procedures Category Date Time Status CHEST 1 VIEW (PORTABLE) Routine Exams 02/01/20 23:49 Completed CHEST 1 VIEW (PORTABLE) Routine Exams 02/03/20 07:00 Taken - Procedures and Test Procedures and Tests throughout Hospitalization: Therapy Orders & Screens 02/02/20 03:10 Respiratory Therapy Assessment DAILY Comment: 02/02/20 06:33 Oxygen NASAL CANNULA 2 lpm Comment: 02/02/20 17:44 Peak Expiratory Flow Rate ONCE Comment: Reason For Exam: Diagnosis: pneumonia, UTI Discharge Exam General Appearance: no apparent distress Neurologic Exam: alert, oriented x 3 Respiratory Exam: normal breath sounds, lungs clear, No respiratory distress Cardiovascular Exam: regular rate/rhythm, normal heart sounds Gastrointestinal/Abdomen Exam: soft, No tenderness, No mass Extremity Exam: normal inspection, normal range of motion Skin Exam: normal color, warm, dry Final Diagnosis/Problem List - Final Discharge Diagnosis/Problem (1) Pneumonia Current Visit: Yes Status: Acute Assessment & Plan: home on cefdinir and zithromax Code(s): J18.9 - PNEUMONIA, UNSPECIFIED ORGANISM (2) UTI (urinary tract infection) Current Visit: Yes Status: Acute Assessment & Plan: gram neg culture pending, home on cefdinir Code(s): N39.0 - URINARY TRACT INFECTION, SITE NOT SPECIFIED (3) Atrial fibrillation Current Visit: No Status: Chronic Code(s): I48.91 - UNSPECIFIED ATRIAL FIBRILLATION (4) DVT, recurrent, lower extremity, chronic Current Visit: No Status: Chronic Code(s): I82.509 - CHRONIC EMBOLISM AND THOMBOS UNSP DEEP VN UNSP LOW EXTRM (5) Hx pulmonary embolism Current Visit: No Status: Chronic Code(s): Z86.711 - PERSONAL HISTORY OF PULMONARY EMBOLISM - Discharge Disposition: Home, Self-Care Condition: Stable Prescriptions: New Cefdinir 300 mg PO BID #14 capsule Azithromycin 250 mg [Zithromax 250 MG TABLET] 250 mg PO DAILY #3 tablet Continue Tizanidine HCl 6 mg PO TID PRN PRN PRN Reason: Pain Furosemide [Lasix] 20 mg PO DAILY PRN PRN PRN Reason: swelling Promethazine HCl 25 mg [Phenergan 25 mg] 25 mg PO Q6H PRN PRN PRN Reason: Nausea/Vomiting Levothyroxine Sodium [Synthroid] 300 mcg PO BID Nitroglycerin 0.4 mg SL Q5MIN PRN MR X 3 PRN PRN Reason: Chest Pain Morphine Sulfate 30 mg PO DAILY PRN PRN #30 tablet MDD 1 PRN Reason: Pain Famotidine 20 mg [Pepcid 20 MG] 40 mg PO DAILY Metoprolol Succinate 50 mg PO BID Apixaban [Eliquis] 5 mg PO BID 1 Days Aspirin EC 81 mg [Ecotrin 81 mg] 81 mg PO DAILY Follow up with: WAQAR CASTRO [Primary Care Provider] - 1 Week
[2020-02-03] MEDS: Zofran 4 MG/2 ML VIAL IV PRN (08:36)
[2020-02-03] MEDS: Ms Contin 15 MG PO PRN (08:36)
[2020-02-03] MEDS: SODIUM CHLORIDE 0.45% W/ 20 mEq KCL 1,000 ML IV SCH (08:38)
--- NOTE | 2020-02-03 08:50 | XRAY ---
Indication: Cough and dyspnea. Purulent sputum. Comparison: February 01, 2020. Portable chest remains clear. Heart is not enlarged with stable right Port-A-Cath and left AICD. No new/acute findings.
[2020-02-03] MEDS: ELIQUIS 2.5 MG TABLET PO SCH (09:54)
[2020-02-03] MEDS: Pepcid 20 MG PO SCH (09:54)
[2020-02-03] MEDS: SYNTHROID 150 MCG PO SCH (09:54)
[2020-02-03] MEDS: ECOTRIN 81 MG PO SCH (09:54)
[2020-02-03] MEDS: Toprol Xl 50 MG PO SCH (09:56)
[2020-02-03 10:52] VITALS: BP 106/56; PULSE 79; O2SAT 98
== END 2020-02-03 11:00 | disposition home or self-care (01) ==
LOC: ED 22:28 → MED SURG 02-02 05:25
PROVIDERS: ADMIT Family Medicine; ATTEND Family Medicine
DX: J18.9 Pneumonia, unspecified organism (principal); N39.0 Urinary tract infection, site not specified; I48.91 Unspecified atrial fibrillation; E11.9 Type 2 diabetes mellitus without complications; I82.509 Chronic embolism and thrombosis of unspecified deep veins of unspecified lower extremity; E03.9 Hypothyroidism, unspecified; Z86.711 Personal history of pulmonary embolism; Z85.850 Personal history of malignant neoplasm of thyroid
CPT/HCPCS: 36415; 36600; 71045; 80048; 80053; 81001; 82375; 82803; 82962; 83605; 83735; 84484; 85025; 85027; 85379; 87040; 87077; 87086; 87186; 93268; 94150; 94640; 94760; 99284; G0008; G0378; U0003; 90686; J0456; J0696; J1642; J1720; J2270; J2405; A9270-GY

== ENCOUNTER 2020-02-26 14:36 | Emergency (ER) | payer MEDICARE ==
[2020-02-26] MEDS ORDERED: MORPHINE SULFATE 4 MG INJ IV ONE ×2 (15:05→17:17)
[2020-02-26] MEDS ORDERED: Zofran 4 MG/2 ML VIAL IV ONE (15:05)
[2020-02-26] MEDS ORDERED: Zofran 4 MG/2 ML VIAL ONE (15:13)
[2020-02-26] MEDS ORDERED: MORPHINE SULFATE 4 MG INJ ONE ×2 (15:13→17:09)
[2020-02-26 15:43] LABS: Absolute Neutrophil Ct (ANC) 4.41 (1.4-6.9); BASOPHIL % 0.7 % (0.0-0.4); Basophil (Absolute #) 0.05 (0-0.4); Eosinophil % 2.5 % (0.00-5.0); Eosinophil (Absolute #) 0.17 (0-0.5); Hematocrit 33.3 % (35-47); Lymphocyte (Absolute #) 1.61 (1.0-4.6); Lymphocytes % 24.1 % (24.0-44.0); Mean Cell Volume 86.3 fl (78-100); Mean Corpuscular Hemoglobin 25.9 pg (26-32); Mean Platelet Volume 9.4 fl (7.5-11.0); Monocyte (Absolute #) 0.45 (0.0-1.3); Monocytes % 6.7 % (0.0-12.0); Platelet Count 278 K/mm3 (150-450); Red Blood Count 3.86 M/mm3 (4.1-5.4); Red Cell Distribution Width 14.8 % (11.5-14.0); White Blood Count 6.7 K/mm3 (4.0-10.5)
[2020-02-26 15:49] LABS: Appearance SLIGHTLY CLOUDY (CLEAR); Bilirubin NEGATIVE (NEGATIVE); Blood NEGATIVE Ery/ul (0-5); Glucose NEGATIVE (NEGATIVE); Ketones NEGATIVE (NEGATIVE); Leukocyte Esterase TRACE (NEGATIVE); Mucus SLIGHT /HPF (NEGATIVE); Nitrite NEGATIVE (NEGATIVE); Protein,Urine Dip 30 (Negative); Specific Gravity 1.024 (1.005-1.025); Urobilinogen NEGATIVE mg/dL (0-1)
[2020-02-26 15:55] LABS: ANION GAP 11.7 MEQ/L (5-15); Calcium 9.3 mg/dL (8.4-10.2); Creatinine 1 1.17 mg/dL (0.52-1.04); EST GLOMERULAR FILTRATION RATE 49.7 ML/MIN; Potassium 4.3 mmol/L (3.5-5.1)
[2020-02-26 16:09] VITALS: PULSE 80
[2020-02-26] MEDS ORDERED: ROCEPHIN 1 Gm-D5w 50 ml Bag** 1 G/50 ML IVPB IV STA (17:57)
[2020-02-26 18:03] VITALS: O2SAT 97
[2020-02-26] MEDS ORDERED: ROCEPHIN 1 Gm-D5w 50 ml Bag** 1 G/50 ML IVPB IV ONE (18:19)
--- NOTE | 2020-02-26 18:31 | ERPHSYRPT ---
- History of Present Illness Time Seen by Provider: 02/26/20 15:00 Source: patient Exam Limitations: no limitations Patient Subjective Stated Complaint: Back pain Triage Nursing Assessment: Patient ambulated back to ED and transferred self to bed. Patient A+O X3. Patient's skin pink, warm and dry. Patient complains of back pain that started yesterday. Patient had recent trial neuro pain stimulator placed into low back per Dr. Sanchez in [place]. Patient has stimulator to back with dressing in place. Slight redness noted where bandage has came backwards. Patient denies weakness to legs. Patient complains of constant aching pain 02/25. Patient called Dr. Sanchez's office and was told to come to ED for eval. Physician History: 64 years old female with history of chronic back pain with stimulator for placem ent few days ago at [facility] by pain management presented in the ER with increasing pain since last night, moderate to severe intensity sharp in nature, radiating to both buttocks, aggravated with activity and partial relief with taking morphine and resting. Denies any loss of bladder control, does have permanent ostomy. No new numbness tingling or weakness of lower extremities. Patient also noticed mild redness around area of stimulator placement. No fever or chills reported. Timing/Duration: yesterday, gradual onset, worse Method of Injury: other Quality: sharp Back Pain Location: lumbar spine Back Pain Radiation: buttocks Severity of Pain-Max: severe Severity of Pain-Current: moderate Modifying Factors: Improves With: immobilization, pain medication, rest. Worsens With: movement Associated Symptoms: denies symptoms Previous symptoms: same symptoms as today Allergies/Adverse Reactions: adhesive Allergy (Mild, Verified 02/26/20 14:56) Blisters codeine [Codeine] Allergy (Mild, Verified 02/26/20 14:56) Nausea and Vomiting Sulfa (Sulfonamide Antibiotics) [Sulfa(Sulfonamide Antibiotics)] Allergy (Mild, Verified 02/26/20 14:56) Nausea and Vomiting iron Adverse Reaction (Intermediate, Verified 02/26/20 14:56) Nausea oxycodone [From Percocet] Adverse Reaction (Intermediate, Verified 02/26/20 14:56) Vomiting Home Medications: Tizanidine HCl 6 mg PO TID PRN PRN 11/10/17 [History] Furosemide [Lasix] 20 mg PO DAILY PRN PRN 10/22/18 [History] Promethazine HCl 25 mg [Phenergan 25 mg] 25 mg PO Q6H PRN PRN 01/14/19 [History] Levothyroxine Sodium [Synthroid] 300 mcg PO BID 04/29/19 [History] Nitroglycerin 0.4 mg SL Q5MIN PRN MR X 3 PRN 04/29/19 [History] Famotidine 20 mg [Pepcid 20 MG] 40 mg PO DAILY 09/16/19 [History] Metoprolol Succinate 50 mg PO BID 09/20/19 [History] Aspirin EC 81 mg [Ecotrin 81 mg] 81 mg PO DAILY 02/02/20 [History] Hx Tetanus, Diphtheria Vaccination/Date Given: Yes Hx Influenza Vaccination/Date Given: Yes Hx Pneumococcal Vaccination/Date Given: No Immunizations Up to Date: Yes Travel Risk - International Travel Have you traveled outside of the country in past 3 weeks: No - Coronavirus Screening Are you exhibiting any of the following symptoms?: No Close contact with a COVID-19 positive Pt in past 14-21 Days: No - Review of Systems Constitutional: No Symptoms Eyes: No Symptoms Ears, Nose, & Throat: No Symptoms Respiratory: No Symptoms Cardiac: No Symptoms Abdominal/Gastrointestinal: No Symptoms Genitourinary Symptoms: No Symptoms Musculoskeletal: Back Pain Skin: No Symptoms Neurological: No Symptoms Psychological: No Symptoms Endocrine: No Symptoms Hematologic/Lymphatic: No Symptoms Immunological/Allergic: No Symptoms - Past Medical History Pertinent Past Medical History: Yes Neurological History: Migraines, Stroke ENT History: No Pertinent History Cardiac History: Angina, Congestive Heart Failure, Coronary Artery Disease, Deep Vein Thrombosis, Other Respiratory History: Asthma Endocrine Medical History: Diabetes Type II, Hypothyroidism, Thyroid Cancer Musculoskeletal History: Other GI Medical History: GERD, Hernia, Other History: Other Psycho-Social History: No Pertinent History Female Reproductive Disorders: Endometriosis Other Medical History: Cardiac arrest, DMII, thyroid removal, hysterectomy, low blood pressure, Back pain. hx afib. hiatal hernia. recent cough and congestion - Past Surgical History Past Surgical History: Yes Neuro Surgical History: No Pertinent History Cardiac: Cardiac Catheterization, Internal Defibrillator, Pacemaker, Other Respiratory: No Pertinent History Gastrointestinal: Appendectomy, Cholecystectomy, Colon Resection, Hernia Repair, Other Genitourinary: No Pertinent History Musculoskeletal: Orthopedic Surgery Female Surgical History: Hysterectomy Other Surgical History: THYROID REMOVED, 40% and 50% blockages found with last heart cath about 4 years ago. ankle surgery d/t break,ileostomy, CVL port removed and replaced, PICC line placed for poor venous access. port placed approximately 1 month ago. ostomy repair due to blockage 09/02, back surgery and 4 I&D september and october and november 2017. 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 TLIF fused discs in back. OCTOBER 2018 CAROTIDECTOMY AND LYMPH NODE REMOVAL ON RIGHT SIDE. Right Parotid gland removed. "filter for blood clots 2018" - Social History Smoking Status: Never smoker Exposure to second hand smoke: No Alcohol Use: None Drug Use: none Patient Lives Alone: No Significant Family History: heart disease, cancer, diabetes - Female History Hx Now: No - Nursing Vital Signs Nursing Vital Signs: Initial Vital Signs Temperature 98.0 F 02/26/20 14:57 Pulse Rate 82 02/26/20 14:57 Respiratory Rate 18 02/26/20 14:57 Blood Pressure 149/100 02/26/20 14:57 O2 Sat by Pulse Oximetry 99 02/26/20 14:57 Pain Scale Pain Intensity 5 - Physical Exam General Appearance: no apparent distress, alert Eye Exam: eyes nml inspection Ears, Nose, Throat Exam: pharynx normal Neck Exam: normal inspection, non-tender, supple, full range of motion Respiratory Exam: normal breath sounds, lungs clear Cardiovascular Exam: regular rate/rhythm, normal heart sounds Gastrointestinal Exam: soft, normal bowel sounds, No tenderness Back Exam: vertebral tenderness (Lumbar), muscle spasm (I believe), point tenderness, other (Stimulator leads going in the lumbar spine with minimal erythema around.) Extremity Exam: normal inspection, normal range of motion, pelvis stable Neurologic Exam: alert, oriented x 3, cooperative, neck pinner II-XII nml as tested, other (2+ lower extremity deep tendon reflexes bilaterally symmetrical) Skin Exam: normal color SpO2 Interpretation: normal SpO2: 97 O2 Delivery: Room Air Ordered Tests: Active Orders 24 hr Category Date Time Status LUMBAR SPINE WITH [CT] Stat Exams 02/26/20 15:23 Completed BMP Stat Lab 02/26/20 15:41 Completed CBC W DIFF Stat Lab 02/26/20 15:41 Completed Lactic Acid Stat Lab 02/26/20 15:10 Completed UA W/RFX UR CULTURE Stat Lab 02/26/20 15:41 Completed Medication Summary Discontinued Medications Generic Name Dose Route Start Last Admin Trade Name Brad PRN Reason Stop Dose Admin Heparin Sodium (Beef Lung) Confirm 02/26/20 19:12 Heparin Lock Flush 100 Units/Ml 5ml Syringe Administered 02/26/20 19:13 Dose 500 units .ROUTE .STK-MED ONE Heparin Sodium (Beef Lung) 500 units 02/26/20 19:49 02/26/20 19:40 Heparin Lock Flush 100 Units/Ml 5ml Syringe PORT FLUSH 03/27/20 19:48 500 units PRN PRN Administration IV PORT FLUSH Ceftriaxone Sodium/Dextrose 1 g in 50 mls @ 100 mls/hr 02/26/20 17:57 02/26/20 18:30 Rocephin 1 Gm-D5w 50 Ml Bag IV 02/26/20 18:26 Infused STAT STA Infusion Ceftriaxone Sodium/Dextrose Confirm 02/26/20 18:19 Rocephin 1 Gm-D5w 50 Ml Bag Administered 02/26/20 18:20 Dose 1 g in 50 mls @ ud IV .STK-MED ONE Morphine Sulfate 4 mg 02/26/20 15:05 02/26/20 15:23 Morphine Sulfate 4 Mg Inj IV 02/26/20 15:06 4 mg STAT ONE Administration Morphine Sulfate Confirm 02/26/20 15:13 Morphine Sulfate 4 Mg Inj Administered 02/26/20 15:14 Dose 4 mg .ROUTE .STK-MED ONE Morphine Sulfate Confirm 02/26/20 17:09 Morphine Sulfate 4 Mg Inj Administered 02/26/20 17:10 Dose 4 mg .ROUTE .STK-MED ONE Morphine Sulfate 4 mg 02/26/20 17:17 02/26/20 17:18 Morphine Sulfate 4 Mg Inj IV 02/26/20 17:18 4 mg STAT ONE Administration Ondansetron HCl 4 mg 02/26/20 15:05 02/26/20 15:23 Zofran 4 Mg/2 Ml Vial IV 02/26/20 15:06 4 mg STAT ONE Administration Ondansetron HCl Confirm 02/26/20 15:13 Zofran 4 Mg/2 Ml Vial Administered 02/26/20 15:14 Dose 4 mg .ROUTE .STK-MED ONE Lab/Rad Data: Laboratory Result Diagrams 02/26/20 15:41 02/26/20 15:41 Laboratory Results 02/26/20 02/26/20 02/26/20 Range/Units 15:41 15:41 15:41 WBC 6.7 (4.0-10.5) K/mm3 RBC 3.86 L (4.1-5.4) M/mm3 Hgb 10.0 L (12.0-16.0) gm/dl Hct 33.3 L (35-47) % MCV 86.3 (78-100) fl MCH 25.9 L (26-32) pg MCHC 30.0 L (32-36) g/dl RDW 14.8 H (11.5-14.0) % Plt Count 278 (150-450) K/mm3 MPV 9.4 (7.5-11.0) fl Gran % 66.0 (36.0-66.0) % Eos # (Auto) 0.17 (0-0.5) Absolute Lymphs (auto) 1.61 (1.0-4.6) Absolute Monos (auto) 0.45 (0.0-1.3) Lymphocytes % 24.1 (24.0-44.0) % Monocytes % 6.7 (0.0-12.0) % Eosinophils % 2.5 (0.00-5.0) % Basophils % 0.7 (0.0-0.4) % Absolute Granulocytes 4.41 (1.4-6.9) Basophils # 0.05 (0-0.4) Sodium 140 (137-145) mmol/L Potassium 4.3 (3.5-5.1) mmol/L Chloride 110 H (98-107) mmol/L Carbon Dioxide 23 (22-30) mmol/L Anion Gap 11.7 (5-15) MEQ/L BUN 22 H (7-17) mg/dL Creatinine 1.17 H (0.52-1.04) mg/dL Estimated GFR 49.7 ML/MIN Glucose 106 (74-106) mg/dL Lactic Acid (0.4-2.0) Calcium 9.3 (8.4-10.2) mg/dL Urine Color YELLOW (YELLOW) Urine Appearance SLIGHTLY CLOUDY (CLEAR) Urine pH 5.0 (5-6) Ur Specific Decker 1.024 (1.005-1.025) Urine Protein 30 (Negative) Urine Ketones NEGATIVE (NEGATIVE) Urine Blood NEGATIVE (0-5) Hemal/ul Urine Nitrite NEGATIVE (NEGATIVE) Urine Bilirubin NEGATIVE (NEGATIVE) Urine Urobilinogen NEGATIVE (0-1) mg/dL Ur Leukocyte Esterase TRACE (NEGATIVE) Urine WBC (Auto) 11-15 (0-5) /HPF Urine RBC (Auto) 3-5 (0-2) /HPF U Epithel Cells (Auto) NONE (FEW) /HPF Urine Bacteria (Auto) NONE (NEGATIVE) /HPF Urine Mucus (Auto) SLIGHT (NEGATIVE) /HPF Urine Culture Reflexed NO (NO) Urine Glucose NEGATIVE (NEGATIVE) mg/dL 02/26/20 Range/Units 15:10 WBC (4.0-10.5) K/mm3 RBC (4.1-5.4) M/mm3 Hgb (12.0-16.0) gm/dl Hct (35-47) % MCV (78-100) fl MCH (26-32) pg MCHC (32-36) g/dl RDW (11.5-14.0) % Plt Count (150-450) K/mm3 MPV (7.5-11.0) fl Gran % (36.0-66.0) % Eos # (Auto) (0-0.5) Absolute Lymphs (auto) (1.0-4.6) Absolute Monos (auto) (0.0-1.3) Lymphocytes % (24.0-44.0) % Monocytes % (0.0-12.0) % Eosinophils % (0.00-5.0) % Basophils % (0.0-0.4) % Absolute Granulocytes (1.4-6.9) Basophils # (0-0.4) Sodium (137-145) mmol/L Potassium (3.5-5.1) mmol/L Chloride (98-107) mmol/L Carbon Dioxide (22-30) mmol/L Anion Gap (5-15) MEQ/L BUN (7-17) mg/dL Creatinine (0.52-1.04) mg/dL Estimated GFR ML/MIN Glucose (74-106) mg/dL Lactic Acid 1.5 (0.4-2.0) Calcium (8.4-10.2) mg/dL Urine Color (YELLOW) Urine Appearance (CLEAR) Urine pH (5-6) Ur Specific Decker (1.005-1.025) Urine Protein (Negative) Urine Ketones (NEGATIVE) Urine Blood (0-5) Hemal/ul Urine Nitrite (NEGATIVE) Urine Bilirubin (NEGATIVE) Urine Urobilinogen (0-1) mg/dL Ur Leukocyte Esterase (NEGATIVE) Urine WBC (Auto) (0-5) /HPF Urine RBC (Auto) (0-2) /HPF U Epithel Cells (Auto) (FEW) /HPF Urine Bacteria (Auto) (NEGATIVE) /HPF Urine Mucus (Auto) (NEGATIVE) /HPF Urine Culture Reflexed (NO) Urine Glucose (NEGATIVE) mg/dL - Progress Progress: improved, pain not gone completely, re-examined Progress Note: 02/26/20 18:27 She is given symptomatic treatment for pain. I have obtained CT lumbar spine with contrast which did not show any obvious epidural abscess/hematoma because of her recent stimulator placement. She has a normal white count. Patient is feeling better on reevaluation. Has bilateral symmetrical 2+ reflexes in lower extremity. No focal weakness. No other cauda equina symptoms. She is advised to continue with morphine for now and follow-up with her pain management for reevaluation. Discussed signs symptoms of worsening needing return to ER which she seemed understanding. Stable for discharge. Counseled pt/family regarding: lab results, diagnosis, need for follow-up, rad results - Departure Departure Disposition: Home Clinical Impression: Low back pain Qualifiers: Chronicity: acute Back pain laterality: midline Sciatica presence: without sciatica Qualified Code(s): M54.5 - Low back pain UTI (urinary tract infection) Qualifiers: Urinary tract infection type: site unspecified Hematuria presence: without hematuria Qualified Code(s): N39.0 - Urinary tract infection, site not specified Condition: Stable Critical Care Time: No Referrals: WAQAR CASTRO [Primary Care Provider] - Follow Up with PCP/3 days Instructions: Low Back Pain (DC) Additional Instructions: follow up with your pain medicine doctor for re evaluation. continue with current pain meds . return to ER for intractable pain /fever/numbness/weakness of lower extremities or loss of bowel or bladder control. Prescriptions: Cephalexin Mh 500 mg [Keflex 500 mg] 500 mg PO TID #21 capsule
[2020-02-26 19:08] VITALS: BP 147/89
--- NOTE | 2020-02-26 20:36 | XRAY ---
Indication: Back pain. Status post neurostimulator implant placement 3 days ago. Epidural abscess/hematoma. Multiple contiguous axial images obtained through the lumbar spine using 80 cc Isovue 370 contrast. Two-dimensional sagittal and coronal reformatted images obtained. Comparison: None Osseous structures demineralized with L3/L4 kyphoplasty, L5-S1 fusion with intact right posterior pedicle screws/hooks/Chawla johnathan/intervertebral spacer. Also partially visualized to epidural stimulator leads entering T12-L1 level with tips not included in the [id number]. Left L4 pedicle demonstrates 1.5 cm sclerotic lesion. No acute fracture, large disc herniation, or spinal canal stenosis, sagittal and coronal reformatted images demonstrate normal lumbar alignment with vertebral body height/disc spaces are maintained. Visualized noncontrasted soft tissues demonstrates cholecystectomy clips, IVC filter, bilateral caval biiliac stent grafts, and incompletely visualized right lower quadrant ostomy with herniated bowel loops. Impression: 1. Osteopenia, L3/L4 kyphoplasty, L5-S1 fusion with intact hardware, and partially visualized epidural stimulator leads. 2. Left L4 pedicle sclerotic lesion unchanged with respect to CT abdomen/pelvis February 18, 2017 and favored to be benign. 3. No acute fracture, subluxation, or spinal canal stenosis. 4. Incidental soft tissue findings. Comment: Preliminary interpretation was made by [facility]. No critical discrepancy.
== END 2020-02-26 19:50 | disposition home or self-care (01) ==
LOC: ED 14:36
DX: M54.5 Low back pain (principal); N39.0 Urinary tract infection, site not specified; Z79.899 Other long term (current) drug therapy; I50.9 Heart failure, unspecified; I25.10 Atherosclerotic heart disease of native coronary artery without angina pectoris; E11.9 Type 2 diabetes mellitus without complications; E03.9 Hypothyroidism, unspecified
CPT/HCPCS: 36000; 36415; 72131; 80048; 81001; 83605; 85025; 96365; 96374; 96375; 96376; 99284; J0696; J1642; J2270; J2405

== ENCOUNTER 2020-03-20 12:10 | Emergency (ER) | payer MEDICARE ==
--- NOTE | 2020-03-20 12:37 | ERPHSYRPT ---
- History of Present Illness Time Seen by Provider: 03/20/20 12:15 Historian: patient Exam Limitations: no limitations Patient Subjective Stated Complaint: Pt stated that she began having chest pain yesterday and it got worse this morning, pain in her left arm Triage Nursing Assessment: Pt sent to the ER from [facility], narayan cannon, rates chest pain 8/10, pulses normal, reports that pain began yesterday but became more severe this morning, nauseaous, denies vomiting, skin n/w/d, doesn't appear to be in any distress Physician History: This is a 64-year-old female who has a history of myocardial infarction and coronary artery disease, hypothyroidism, migraines, CVAs, type 2 diabetes, gastroesophageal reflux disease and has a pacemaker/defibrillator in the past who presents with recurrent chest pain on the left anterior chest. She states it is an ache and radiates to her left arm. Patient also has had a carotid endarterectomy performed in the past. Patient states she was having weakness yesterday, then approximately 10 AM this morning, she noticed some chest pain as described above it. She took 2 nitroglycerin at 10 AM. She then was seen at the walk-in clinic. Because of her symptoms patient was sent to the emergency department for evaluation and management. Patient has been in the emergency room several times for chronic, recurring chest pain. 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 Her vital signs are stable with room air oxygenation at 100%. She does not appear to be in any distress but anxious. Timing/Duration: yesterday Activities at Onset: none Quality: aching Location: other (Left anterior chest) Chest Pain Radiation: arm (Left) Severity of Pain-Max: mild Severity of Pain-Current: mild Modifying Factors: Improves With: nothing Associated Symptoms: denies symptoms Prior Chest Pain/Cardiac Workup: non-cardiac, cardiac cath, heart attack, recently seen/treated Nitro Today/Relief: 0.4 mg x 3, provided at home Aspirin Treatment Today: no aspirin today (Patient was told not to take aspirin at all since she is on anticoagulation therapy.) Allergies/Adverse Reactions: adhesive Allergy (Mild, Verified 03/20/20 12:19) Blisters codeine [Codeine] Allergy (Mild, Verified 03/20/20 12:19) Nausea and Vomiting Sulfa (Sulfonamide Antibiotics) [Sulfa(Sulfonamide Antibiotics)] Allergy (Mild, Verified 03/20/20 12:19) Nausea and Vomiting iron Adverse Reaction (Intermediate, Verified 03/20/20 12:19) Nausea oxycodone [From Percocet] Adverse Reaction (Intermediate, Verified 03/20/20 12:19) Vomiting Home Medications: Tizanidine HCl 6 mg PO TID PRN PRN 11/10/17 [History] Furosemide [Lasix] 20 mg PO DAILY PRN PRN 03/09/18 [History] Promethazine HCl 25 mg [Phenergan 25 mg] 25 mg PO Q6H PRN PRN 01/14/19 [History] Levothyroxine Sodium [Synthroid] 300 mcg PO BID 04/29/19 [History] Nitroglycerin 0.4 mg SL Q5MIN PRN MR X 3 PRN 04/29/19 [History] Famotidine 20 mg [Pepcid 20 MG] 40 mg PO DAILY 09/16/19 [History] Metoprolol Succinate 50 mg PO BID 09/20/19 [History] Amlodipine Besylate 2.5 mg PO BID 03/20/20 [History] Hx Tetanus, Diphtheria Vaccination/Date Given: Yes Hx Influenza Vaccination/Date Given: Yes Hx Pneumococcal Vaccination/Date Given: No Travel Risk - International Travel Have you traveled outside of the country in past 3 weeks: No - Coronavirus Screening Are you exhibiting any of the following symptoms?: No Close contact with a COVID-19 positive Pt in past 14-21 Days: No - Review of Systems Constitutional: Weakness Eyes: No Symptoms Ears, Nose, & Throat: No Symptoms Respiratory: No Symptoms Cardiac: Chest Pain Abdominal/Gastrointestinal: No Symptoms Genitourinary Symptoms: No Symptoms Musculoskeletal: No Symptoms Skin: No Symptoms Neurological: No Symptoms Psychological: No Symptoms Endocrine: No Symptoms Hematologic/Lymphatic: No Symptoms Immunological/Allergic: No Symptoms All Other Systems: Reviewed and Negative - Past Medical History Pertinent Past Medical History: Yes Neurological History: Migraines, Stroke ENT History: No Pertinent History Cardiac History: Angina, Congestive Heart Failure, Coronary Artery Disease, Deep Vein Thrombosis, Other Respiratory History: Asthma Endocrine Medical History: Diabetes Type II, Hypothyroidism, Thyroid Cancer Musculoskeletal History: Other GI Medical History: GERD, Hernia, Other History: Other Psycho-Social History: No Pertinent History Female Reproductive Disorders: Endometriosis Other Medical History: Cardiac arrest, DMII, thyroid removal, hysterectomy, low blood pressure, Back pain. hx afib. hiatal hernia. recent cough and congestion - Past Surgical History Past Surgical History: Yes Neuro Surgical History: No Pertinent History Cardiac: Cardiac Catheterization, Internal Defibrillator, Pacemaker, Other Respiratory: No Pertinent History Gastrointestinal: Appendectomy, Cholecystectomy, Colon Resection, Hernia Repair, Other Genitourinary: No Pertinent History Musculoskeletal: Orthopedic Surgery Female Surgical History: Hysterectomy Other Surgical History: THYROID REMOVED, 40% and 50% blockages found with last heart cath about 4 years ago. ankle surgery d/t break,ileostomy, CVL port removed and replaced, PICC line placed for poor venous access. port placed approximately 1 month ago. ostomy repair due to blockage 09/02, back surgery and 4 I&D september and october and november 2017. 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 TLIF fused discs in back. OCTOBER 2018 CAROTIDECTOMY AND LYMPH NODE REMOVAL ON RIGHT SIDE. Right Parotid gland removed. "filter for blood clots 2018" - Social History Smoking Status: Never smoker Exposure to second hand smoke: No Alcohol Use: None Drug Use: none Patient Lives Alone: No Significant Family History: heart disease, cancer, diabetes - Female History Hx Now: No - Nursing Vital Signs Nursing Vital Signs: Initial Vital Signs Pulse Rate 80 03/20/20 12:11 Blood Pressure 126/80 03/20/20 12:11 O2 Sat by Pulse Oximetry 100 03/20/20 12:11 Pain Scale Pain Intensity 6 - Physical Exam General Appearance: no apparent distress, alert, anxiety Eye Exam: PERRL/EOMI, eyes nml inspection Ears, Nose, Throat Exam: normal ENT inspection, moist mucous membranes Neck Exam: normal inspection, non-tender, supple, full range of motion Respiratory Exam: normal breath sounds, chest tenderness, lungs clear, airway intact, No respiratory distress Cardiovascular Exam: regular rate/rhythm, normal heart sounds, normal peripheral pulses Gastrointestinal/Abdomen Exam: soft, normal bowel sounds, No tenderness Pelvic Exam: not done Rectal Exam: not done Back Exam: normal inspection, normal range of motion, No CVA tenderness, No vertebral tenderness Extremity Exam: normal inspection, normal range of motion, pelvis stable Neurologic Exam: alert, oriented x 3, cooperative, artificial 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 This has been persistent when compared to EKGs dated 01/13/2020 and 02/02/2020. There is no evidence of any acute ischemic changes.) Ordered Tests: Active Orders 24 hr Category Date Time Status Metal Roofer STAT Care 03/20/20 12:35 Active EKG-ER Only STAT Care 03/20/20 12:34 Active IV Insertion STAT Care 03/20/20 12:34 Active Pulse Oximetry (ED) STAT Care 03/20/20 12:34 Active CHEST 1 VIEW (PORTABLE) Stat Exams 03/20/20 12:35 Completed CBC W DIFF Stat Lab 03/20/20 12:25 Completed CMP Stat Lab 03/20/20 12:25 Completed NT PRO BNP Stat Lab 03/20/20 12:25 Completed PROTIME WITH INR Stat Lab 03/20/20 12:25 Completed TROPONIN Q3H Lab 03/20/20 12:25 Completed TROPONIN Q3H Lab 03/20/20 16:20 Completed TROPONIN Q3H Lab 03/20/20 18:45 Ordered TROPONIN Q3H Lab 03/20/20 21:45 Ordered TROPONIN Q3H Lab 03/21/20 00:45 Ordered Medication Summary Discontinued Medications Generic Name Dose Route Start Last Admin Trade Name Freq PRN Reason Stop Dose Admin Morphine Sulfate 2 mg 03/20/20 12:34 03/20/20 12:48 Morphine Sulfate 2 Mg Inj IV 03/20/20 12:35 2 mg STAT ONE Administration Morphine Sulfate Confirm 03/20/20 12:43 Morphine Sulfate 2 Mg Inj Administered 03/20/20 12:44 Dose 2 mg .ROUTE .STK-MED ONE Morphine Sulfate 2 mg 03/20/20 15:25 03/20/20 16:41 Morphine Sulfate 2 Mg Inj IV 03/20/20 15:26 2 mg STAT ONE Administration Morphine Sulfate Confirm 03/20/20 16:39 Morphine Sulfate 2 Mg Inj Administered 03/20/20 16:40 Dose 2 mg .ROUTE .STK-MED ONE Ondansetron HCl 4 mg 03/20/20 12:34 03/20/20 12:48 Zofran 4 Mg/2 Ml Vial IV 03/20/20 12:35 4 mg STAT ONE Administration Ondansetron HCl Confirm 03/20/20 12:43 Zofran 4 Mg/2 Ml Vial Administered 03/20/20 12:44 Dose 4 mg .ROUTE .K-[facility] ONE Lab/Rad Data: Laboratory Result Diagrams 03/20/20 12:25 03/20/20 12:25 Laboratory Results 03/20/20 03/20/20 03/20/20 Range/Units 16:20 12:25 12:25 WBC (4.0-10.5) K/mm3 RBC (4.1-5.4) M/mm3 Hgb (12.0-16.0) gm/dl Hct (35-47) % MCV (78-100) fl MCH (26-32) pg MCHC (32-36) g/dl RDW (11.5-14.0) % Plt Count (150-450) K/mm3 MPV (7.5-11.0) fl Gran % (36.0-66.0) % Eos # (Auto) (0-0.5) Absolute Lymphs (auto) (1.0-4.6) Absolute Monos (auto) (0.0-1.3) Lymphocytes % (24.0-44.0) % Monocytes % (0.0-12.0) % Eosinophils % (0.00-5.0) % Basophils % (0.0-0.4) % Absolute Granulocytes (1.4-6.9) Basophils # (0-0.4) PT 11.6 (9.95-12.35) SECONDS INR 1.03 (0.8-3.0) Sodium (137-145) mmol/L Potassium (3.5-5.1) mmol/L Chloride (98-107) mmol/L Carbon Dioxide (22-30) mmol/L Anion Gap (5-15) MEQ/L BUN (7-17) mg/dL Creatinine (0.52-1.04) mg/dL Estimated GFR ML/MIN Glucose (74-106) mg/dL Calcium (8.4-10.2) mg/dL Total Bilirubin (0.2-1.3) mg/dL AST (14-36) U/L ALT (0-35) U/L Alkaline Phosphatase (38-126) U/L Troponin I < 0.012 < 0.012 (0.000-0.034) ng/mL NT-Pro-B Natriuret Pep (0-900) pg/mL Serum Total Protein (6.3-8.2) g/dL Albumin (3.5-5.0) g/dL 03/20/20 03/20/20 Range/Units 12:25 12:25 WBC 7.0 (4.0-10.5) K/mm3 RBC 4.53 (4.1-5.4) M/mm3 Hgb 11.7 L (12.0-16.0) gm/dl Hct 37.7 (35-47) % MCV 83.2 (78-100) fl MCH 25.8 L (26-32) pg MCHC 31.0 L (32-36) g/dl RDW 15.9 H (11.5-14.0) % Plt Count 245 (150-450) K/mm3 MPV 9.4 (7.5-11.0) fl Gran % 65.8 (36.0-66.0) % Eos # (Auto) 0.14 (0-0.5) Absolute Lymphs (auto) 1.71 (1.0-4.6) Absolute Monos (auto) 0.51 (0.0-1.3) Lymphocytes % 24.3 (24.0-44.0) % Monocytes % 7.2 (0.0-12.0) % Eosinophils % 2.0 (0.00-5.0) % Basophils % 0.7 (0.0-0.4) % Absolute Granulocytes 4.63 (1.4-6.9) Basophils # 0.05 (0-0.4) PT (9.95-12.35) SECONDS INR (0.8-3.0) Sodium 138 (137-145) mmol/L Potassium 4.1 (3.5-5.1) mmol/L Chloride 112 H (98-107) mmol/L Carbon Dioxide 19 L (22-30) mmol/L Anion Gap 11.7 (5-15) MEQ/L BUN 24 H (7-17) mg/dL Creatinine 1.19 H (0.52-1.04) mg/dL Estimated GFR 48.7 ML/MIN Glucose 105 (74-106) mg/dL Calcium 9.4 (8.4-10.2) mg/dL Total Bilirubin 0.40 (0.2-1.3) mg/dL AST 24 (14-36) U/L ALT 11 (0-35) U/L Alkaline Phosphatase 110 (38-126) U/L Troponin I (0.000-0.034) ng/mL NT-Pro-B Natriuret Pep 921 H (0-900) pg/mL Serum Total Protein 8.1 (6.3-8.2) g/dL Albumin 4.4 (3.5-5.0) g/dL - Progress Progress: improved, re-examined Air Movement: good Progress Note: 03/20/20 17:18 Chest x-ray shows cardiomegaly which is chronic but no evidence of any CHF or other acute cardiopulmonary process. 03/20/20 17:20 Medical decision making: I spoke with Dr. Louis, security manager covering for Dr. Duarte the patient's security manager. I reviewed the patient history, condition, EKG findings, x-ray findings and laboratory results. He does not feel the patient needs to be admitted. Patient is to increase her metoprolol to 75 mg orally twice a day. She is then to call her security manager office tomorrow morning to make arrangements for follow-up appointment. Blood Culture(s) Obtained: No Antibiotics given: No Discussed with Dr.: Other (Dr. Louis covering for dr. Duarte) Counseled pt/family regarding: lab results, diagnosis, need for follow-up, rad results - Departure Departure Disposition: Home Clinical Impression: Chronic chest pain, Mild congestive heart failure Condition: Stable Critical Care Time: No Referrals: WAQAR CASTRO [Primary Care Provider] - Instructions: Heart Failure Additional Instructions: Increase your metoprolol to 75 mg orally twice a day. Call 's office tomorrow morning to make arrangements for follow-up appointment.
[2020-03-20] MEDS ORDERED: Zofran 4 MG/2 ML VIAL ONE (12:43)
[2020-03-20] MEDS ORDERED: MORPHINE SULFATE 2 MG INJ ONE ×2 (12:43→16:39)
[2020-03-20] MEDS: Zofran 4 MG/2 ML VIAL IV ONE (12:48)
[2020-03-20] MEDS: MORPHINE SULFATE 2 MG INJ IV ONE ×2 (12:48→16:41)
[2020-03-20 12:50] LABS: Absolute Neutrophil Ct (ANC) 4.63 (1.4-6.9); BASOPHIL % 0.7 % (0.0-0.4); Basophil (Absolute #) 0.05 (0-0.4); Eosinophil (Absolute #) 0.14 (0-0.5); Hematocrit 37.7 % (35-47); Hemoglobin 11.7 gm/dl (12.0-16.0); Lymphocyte (Absolute #) 1.71 (1.0-4.6); Lymphocytes % 24.3 % (24.0-44.0); Mean Cell Volume 83.2 fl (78-100); Mean Corpuscular Hemoglobin 25.8 pg (26-32); Mean Platelet Volume 9.4 fl (7.5-11.0); Monocyte (Absolute #) 0.51 (0.0-1.3); Monocytes % 7.2 % (0.0-12.0); Neutrophil % 65.8 % (36.0-66.0); Platelet Count 245 K/mm3 (150-450); Red Blood Count 4.53 M/mm3 (4.1-5.4); Red Cell Distribution Width 15.9 % (11.5-14.0)
[2020-03-20 12:53] VITALS: PULSE 80
[2020-03-20 12:54] LABS: INR 1.03 (0.8-3.0); PROTIME 11.6 SECONDS (9.95-12.35)
--- NOTE | 2020-03-20 13:01 | XRAY ---
Indication: Short of breath and chest pain. Comparison: February 10, 2020. Portable chest less inflated with stable cardiomegaly, right Port-A-Cath, and left AICD. No focal infiltrate, consolidation, or large effusion. Bony thorax intact. Impression: Continued cardiomegaly. Again negative for acute pneumonic process or CHF.
[2020-03-20 13:07] LABS: ALBUMIN 4.4 g/dL (3.5-5.0); ANION GAP 11.7 MEQ/L (5-15); BILIRUBIN,TOTAL 0.4 mg/dL (0.2-1.3); Calcium 9.4 mg/dL (8.4-10.2); Creatinine 1 1.19 mg/dL (0.52-1.04); EST GLOMERULAR FILTRATION RATE 48.7 ML/MIN; Potassium 4.1 mmol/L (3.5-5.1); Total Protein 8.1 g/dL (6.3-8.2)
[2020-03-20 17:04] VITALS: BP 124/88
[2020-03-20 17:22] VITALS: O2SAT 100
== END 2020-03-20 17:58 | disposition home or self-care (01) ==
LOC: ED 12:10
DX: R07.9 Chest pain, unspecified (principal); G89.29 Other chronic pain; F45.42 Pain disorder with related psychological factors; I51.7 Cardiomegaly; I50.9 Heart failure, unspecified; M79.602 Pain in left arm; I25.2 Old myocardial infarction; I25.10 Atherosclerotic heart disease of native coronary artery without angina pectoris; E03.9 Hypothyroidism, unspecified; E11.9 Type 2 diabetes mellitus without complications; K21.9 Gastro-esophageal reflux disease without esophagitis; Z86.73 Personal history of transient ischemic attack (TIA), and cerebral infarction without residual deficits; Z95.810 Presence of automatic (implantable) cardiac defibrillator; Z86.718 Personal history of other venous thrombosis and embolism; Z85.850 Personal history of malignant neoplasm of thyroid
CPT/HCPCS: 36000; 36415; 71045; 80053; 83880; 84484; 85025; 85610; 93005; 93041; 94760; 96374; 96375; 96376; 99284; J1642; J2270; J2405

== ENCOUNTER 2020-04-26 15:35 | Emergency (ER) | payer MEDICARE ==
[2020-04-26 15:46] VITALS: BP 141/96; PULSE 80; O2SAT 100
--- NOTE | 2020-04-26 15:59 | ERPHSYRPT ---
- History of Present Illness Time Seen by Provider: 04/26/20 15:45 Historian: patient Patient Subjective Stated Complaint: " I have had chest pains for the past couple of hours in my right upper chest and it radiates to my back. I have a massive headache and I feel really short of breath. 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 Pt also complains of shortness of breath, cough, and headache. Pt does state that her was positive for Covid19 approx 2 weeks ago. Pt is alert and oriented x 3. Skin is pink, warm, and dry. Abd is soft and nontender, denies nausea/vomiting/diarrhea (has ostomy). Pt respirations are unlabored at this time, noted dry occasional cough. Pt had recent ablasion in [place] last Friday and went to post op appointment today and they stated everything was going okay. Physician History: This is a 64-year-old overweight white female patient of Dr. 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 Patient fr equents the emergency room often for the same complaint. Today, her right upper chest pain began approximately 2 hours prior to arrival. She was also having associated shortness of breath and cough and a massive headache per her report. Patient has a history of myocardial infarction, coronary disease, hypothyroidism, migraines, cerebrovascular accident, type 2 diabetes, gastroesophageal reflux disease, pacemaker/defibrillator placement as well as a carotid endarterectomy. Patient was seen at the clinic today and because of her symptoms she was told to go to the emergency room. Patient was told not to take aspirin because she is on anticoagulation therapy and aspirin is not necessary. Patient states that the right upper chest pain is an ache which radiates to her back. Patient's tested positive for COVID-19 virus 2 weeks ago. Patient arrives with 100% room air oxygenation level. Patient's treatment was witnessed on 2 prior occasions to have told the emergency room staff that she had a ride and she received narcotics then got in the car and drove off. I told her that I would not give her any narcotic medication unless it was indicated after the work-up was complete and that her ride needed to actually be in the emergency department waiting room area waiting for her. Timing/Duration: today Activities at Onset: none Quality: aching Location: other (Right upper chest) Chest Pain Radiation: back Severity of Pain-Max: mild Severity of Pain-Current: mild Modifying Factors: Improves With: nothing Associated Symptoms: shortness of breath, cough, headache Prior Chest Pain/Cardiac Workup: cardiac cath, heart attack, pulmonary embolism, recently seen/treated Nitro Today/Relief: no nitro taken today Aspirin Treatment Today: no aspirin today Allergies/Adverse Reactions: adhesive Allergy (Mild, Verified 04/26/20 15:47) Blisters codeine [Codeine] Allergy (Mild, Verified 04/26/20 15:47) Nausea and Vomiting Sulfa (Sulfonamide Antibiotics) [Sulfa(Sulfonamide Antibiotics)] Allergy (Mild, Verified 04/26/20 15:47) Nausea and Vomiting iron Adverse Reaction (Intermediate, Verified 04/26/20 15:47) Nausea oxycodone [From Percocet] Adverse Reaction (Intermediate, Verified 04/26/20 15:47) Vomiting Home Medications: Tizanidine HCl 6 mg PO TID PRN PRN 11/10/17 [History] Furosemide [Lasix] 20 mg PO DAILY PRN PRN 03/09/18 [History] Promethazine HCl 25 mg [Phenergan 25 mg] 25 mg PO Q6H PRN PRN 01/14/19 [H istory] Levothyroxine Sodium [Synthroid] 300 mcg PO BID 04/29/19 [History] Nitroglycerin 0.4 mg SL Q5MIN PRN MR X 3 PRN 04/29/19 [History] Famotidine 20 mg [Pepcid 20 MG] 40 mg PO DAILY 09/16/19 [History] Metoprolol Succinate 50 mg PO BID 09/20/19 [History] Amlodipine Besylate 2.5 mg PO BID 03/20/20 [History] Hx Tetanus, Diphtheria Vaccination/Date Given: Yes Hx Influenza Vaccination/Date Given: Yes Hx Pneumococcal Vaccination/Date Given: Yes Immunizations Up to Date: Yes Travel Risk - International Travel Have you traveled outside of the country in past 3 weeks: No - Coronavirus Screening Are you exhibiting any of the following symptoms?: Yes Symptoms: Cough: New Onset, Shortness of Breath - Review of Systems Constitutional: No Symptoms Eyes: No Symptoms Ears, Nose, & Throat: No Symptoms Respiratory: Cough, Dyspnea Cardiac: Chest Pain Abdominal/Gastrointestinal: No Symptoms Genitourinary Symptoms: No Symptoms Musculoskeletal: No Symptoms Skin: No Symptoms Neurological: Headache Psychological: No Symptoms Endocrine: No Symptoms Hematologic/Lymphatic: No Symptoms Immunological/Allergic: No Symptoms All Other Systems: Reviewed and Negative - Past Medical History Pertinent Past Medical History: Yes Neurological History: Migraines, Stroke ENT History: No Pertinent History Cardiac History: Angina, Congestive Heart Failure, Coronary Artery Disease, Deep Vein Thrombosis, Other Respiratory History: Asthma Endocrine Medical History: Diabetes Type II, Hypothyroidism, Thyroid Cancer Musculoskeletal History: Other GI Medical History: GERD, Hernia, Other History: Other Psycho-Social History: No Pertinent History Female Reproductive Disorders: Endometriosis Other Medical History: Cardiac arrest, DMII, thyroid removal, hysterectomy, low blood pressure, Back pain. hx afib. hiatal hernia. recent cough and congestion - Past Surgical History Past Surgical History: Yes Neuro Surgical History: No Pertinent History Cardiac: Cardiac Catheterization, Internal Defibrillator, Pacemaker, Other Respiratory: No Pertinent History Gastrointestinal: Appendectomy, Cholecystectomy, Colon Resection, Hernia Repair, Other Genitourinary: No Pertinent History Musculoskeletal: Orthopedic Surgery Female Surgical History: Hysterectomy Other Surgical History: THYROID REMOVED, 40% and 50% blockages found with last heart cath about 4 years ago. ankle surgery d/t break,ileostomy, CVL port removed and replaced, PICC line placed for poor venous access. port placed approximately 1 month ago. ostomy repair due to blockage 09/02, back surgery and 4 I&D september and october and november 2017. 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 TLIF fused discs in back. OCTOBER 2018 CAROTIDECTOMY AND LYMPH NODE REMOVAL ON RIGHT SIDE. Right Parotid gland removed. "filter for blood clots 2018" - Social History Smoking Status: Never smoker Exposure to second hand smoke: No Alcohol Use: None Drug Use: none Patient Lives Alone: No Significant Family History: heart disease, cancer, diabetes - Nursing Vital Signs Nursing Vital Signs: Initial Vital Signs Pulse Rate 80 04/26/20 15:38 Respiratory Rate 16 04/26/20 15:38 Blood Pressure 141/96 04/26/20 15:38 O2 Sat by Pulse Oximetry 100 04/26/20 15:38 Pain Scale Pain Intensity 7 - Physical Exam General Appearance: no apparent distress, alert, anxiety, obese Eye Exam: PERRL/EOMI, eyes nml inspection Ears, Nose, Throat Exam: normal ENT inspection, moist mucous membranes Neck Exam: normal inspection, non-tender, supple, full range of motion Respiratory Exam: normal breath sounds, chest tenderness (Right upper chest), lungs clear, airway intact, No respiratory distress Cardiovascular Exam: regular rate/rhythm, normal heart sounds, normal peripheral pulses Gastrointestinal/Abdomen Exam: soft, normal bowel sounds, No tenderness Pelvic Exam: not done Rectal Exam: not done Back Exam: normal inspection, normal range of motion, CVA tenderness Extremity Exam: normal inspection, normal range of motion, pelvis stable Neurologic Exam: alert, oriented x 3, cooperative, rehabilitation tech II-XII nml as tested, n ormal mood/affect, nml cerebellar function, nml station & gait, sensation nml Skin Exam: normal color, warm, dry Lymphatic Exam: No adenopathy SpO2 Interpretation: normal SpO2: 100 O2 Delivery: Room Air - Course Nursing assessment & vital signs reviewed: Yes Ordered Tests: Active Orders 24 hr Category Date Time Status Analysis Consultant STAT Care 04/26/20 15:43 Active EKG-ER Only STAT Care 04/26/20 15:42 Active IV Insertion STAT Care 04/26/20 15:42 Active Pulse Oximetry (ED) STAT Care 04/26/20 15:42 Active CHEST 1 VIEW (PORTABLE) Stat Exams 04/26/20 15:43 Ordered CBC W DIFF Stat Lab 04/26/20 15:42 Ordered CMP Stat Lab 04/26/20 15:42 Ordered NT PRO BNP Stat Lab 04/26/20 15:42 Ordered TROPONIN Q3H Lab 04/26/20 15:45 Ordered TROPONIN Q3H Lab 04/26/20 18:45 Ordered TROPONIN Q3H Lab 04/26/20 21:45 Ordered TROPONIN Q3H Lab 04/27/20 00:45 Ordered TROPONIN Q3H Lab 04/27/20 03:45 Ordered - Progress Progress: unchanged Air Movement: good Progress Note: 04/26/20 15:59 Patient states since she is oxygenating well, she is going to leave AGAINST MEDICAL ADVICE. She was advised that that was not advisable. She understands the risks of worsening condition and possible . She will sign an AMA form. Blood Culture(s) Obtained: No Antibiotics given: No - Departure Departure Disposition: AMA Clinical Impression: Chest pain, SOB (shortness of breath) Condition: Stable Critical Care Time: No Referrals: WAQAR MCCALLUM [Primary Care Provider] - Additional Instructions: Patient was told to return to the emergency department if her symptoms persist or worsen.
== END 2020-04-26 16:00 | disposition left against medical advice (07) ==
LOC: ED 15:35
DX: R07.9 Chest pain, unspecified (principal); R06.02 Shortness of breath; Z79.899 Other long term (current) drug therapy
CPT/HCPCS: 93005; 93041; 94760; 99284

== ENCOUNTER 2020-11-11 23:46 | Emergency (ER) | payer MEDICARE ==
--- NOTE | 2020-11-12 00:11 | ERPHSYRPT ---
- History of Present Illness Time Seen by Provider: 11/11/20 23:55 Historian: patient, EMS Exam Limitations: clinical condition Physician History: This is a 65-year-old obese white female with permanent ileostomy in place who is here in this emergency room often for pain issues and presents with left lower abdominal pain. Of migraines, CVAs in the past, coronary artery disease, diabetes type 2, hypothyroidism, gastroesophageal reflux disease. She has undergone a colectomy with permanent ileostomy. She has had a cardiac catheterization in the past and has a defibrillator/pacemaker in place. Patient underwent a small bowel follow-through on 11/10/2020 which was read by our radiologist as normal and no evidence of obstruction. Patient then was seen at [facility] in [facility] on 11/11/2020 and was told that she had kidney stones present and was sent home around noon. Patient then called the ambulance service prior to arrival here because of the abdominal pain that she was experiencing. Patient has no chest pain. Patient has no shortness of breath. She has no dysuria or hematuria. Patient presents emergency department and appears a bit sedated. Timing/Duration: today Activities at Onset: none Abdominal Pain Onset Location: LLQ Pain Radiation: no radiation Severity of Pain-Max: mild Severity of Pain-Current: mild Modifying Factors: Improves With: nothing Associated Symptoms: denies symptoms Previous symptoms: same symptoms as today Allergies/Adverse Reactions: adhesive Allergy (Mild, Verified 11/11/20 23:55) Blisters codeine [Codeine] Allergy (Mild, Verified 11/11/20 23:55) Nausea and Vomiting Sulfa (Sulfonamide Antibiotics) [Sulfa(Sulfonamide Antibiotics)] Allergy (Mild, Verified 11/11/20 23:55) Nausea and Vomiting iron Adverse Reaction (Intermediate, Verified 11/11/20 23:55) Nausea oxycodone [From Percocet] Adverse Reaction (Intermediate, Verified 11/11/20 23:55) Vomiting Home Medications: Tizanidine HCl 6 mg PO TID PRN PRN 11/10/17 [History] Furosemide [Lasix] 20 mg PO DAILY PRN PRN 03/09/18 [History] Promethazine HCl 25 mg [Phenergan 25 mg] 25 mg PO Q6H PRN PRN 01/14/19 [History] Levothyroxine Sodium [Synthroid] 300 mcg PO BID 04/29/19 [History] Nitroglycerin 0.4 mg SL Q5MIN PRN MR X 3 PRN 04/29/19 [History] Famotidine 20 mg [Pepcid 20 MG] 40 mg PO DAILY 09/16/19 [History] Metoprolol Succinate 50 mg PO BID 09/20/19 [History] Hx Tetanus, Diphtheria Vaccination/Date Given: Yes Hx Influenza Vaccination/Date Given: Yes Hx Pneumococcal Vaccination/Date Given: Yes Travel Risk - International Travel Have you traveled outside of the country in past 3 weeks: No - Coronavirus Screening Are you exhibiting any of the following symptoms?: No Close contact with a COVID-19 positive Pt in past 14-21 Days: No - Review of Systems Constitutional: No Symptoms Eyes: No Symptoms Ears, Nose, & Throat: No Symptoms Respiratory: No Symptoms Cardiac: No Symptoms Abdominal/Gastrointestinal: Abdominal Pain, No Nausea, No Vomiting, No Diarrhea Genitourinary Symptoms: No Symptoms Musculoskeletal: No Symptoms Skin: No Symptoms Neurological: Other (Patient appears sedated with pain medication) Psychological: No Symptoms Endocrine: No Symptoms Hematologic/Lymphatic: No Symptoms Immunological/Allergic: No Symptoms All Other Systems: Reviewed and Negative - Past Medical History Pertinent Past Medical History: Yes Neurological History: Migraines, Stroke ENT History: No Pertinent History Cardiac History: Angina, Congestive Heart Failure, Coronary Artery Disease, Deep Vein Thrombosis, Other Respiratory History: Asthma Endocrine Medical History: Diabetes Type II, Hypothyroidism, Thyroid Cancer Musculoskeletal History: Other GI Medical History: GERD, Hernia, Other History: Other Psycho-Social History: No Pertinent History Female Reproductive Disorders: Endometriosis Other Medical History: HX Cardiac Arrest, HX Thyroid Removal, HX Back pain. HX A-Fib - Past Surgical History Past Surgical History: Yes Neuro Surgical History: No Pertinent History Cardiac: Cardiac Catheterization, Internal Defibrillator, Pacemaker, Other Respiratory: No Pertinent History Gastrointestinal: Appendectomy, Cholecystectomy, Colon Resection, Hernia Repair, Other Genitourinary: No Pertinent History Musculoskeletal: Orthopedic Surgery Female Surgical History: Hysterectomy Other Surgical History: THYROID REMOVED, 40% and 50% blockages found with last heart cath about 4 years ago. ankle surgery d/t break,ileostomy, CVL port removed and replaced, Port placed. HX ostomy repair due to blockage 4/17, back surgery and 4 I&D may and october and november 2017. 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 TLIF fused discs in back. OCTOBER 2018 CAROTIDECTOMY AND LYMPH NODE REMOVAL ON RIGHT SIDE. Right Parotid gland removed. "filter for blood clots 2018" - Social History Smoking Status: Never smoker Exposure to second hand smoke: No Alcohol Use: None Drug Use: none Patient Lives Alone: No Significant Family History: heart disease, cancer, diabetes - Nursing Vital Signs Nursing Vital Signs: Initial Vital Signs Temperature 97.7 F 11/11/20 23:47 Pulse Rate 87 11/11/20 23:47 Respiratory Rate 18 11/11/20 23:47 Blood Pressure 117/73 11/11/20 23:47 O2 Sat by Pulse Oximetry 95 11/11/20 23:47 Pain Scale Pain Intensity 10 - Physical Exam SpO2: 95 Ordered Tests: Active Orders 24 hr Category Date Time Status ABDOMEN AND PELVIS W/0 CONTRAS [CT] Stat Exams 11/12/20 00:13 Taken AMYLASE Stat Lab 11/12/20 00:34 Completed CBC W DIFF Stat Lab 11/12/20 00:34 Completed CMP Stat Lab 11/12/20 00:34 Completed CULTURE,URINE Stat Lab 11/12/20 00:34 Received LIPASE Stat Lab 11/12/20 00:34 Completed Lactic Acid Stat Lab 11/12/20 00:35 Completed UA W/RFX UR CULTURE Stat Lab 11/12/20 00:34 Completed Urine Triage Profile Stat Lab 11/12/20 00:34 Completed Medication Summary Generic Name Dose Route Start Last Admin Trade Name Freq PRN Reason Stop Dose Admin Ketorolac Tromethamine 15 mg 11/12/20 02:10 Toradol 30 Mg Injection IV 11/12/20 02:11 STAT ONE Lab/Rad Data: Laboratory Result Diagrams 11/12/20 00:34 11/12/20 00:34 Laboratory Results 11/12/20 11/12/20 11/12/20 Range/Units 00:35 00:34 00:34 WBC (4.0-10.5) K/mm3 RBC (4.1-5.4) M/mm3 Hgb (12.0-16.0) gm/dl Hct (35-47) % MCV (78-100) fl MCH (26-32) pg MCHC (32-36) g/dl RDW (11.5-14.0) % Plt Count (150-450) K/mm3 MPV (7.5-11.0) fl Gran % (36.0-66.0) % Eos # (Auto) (0-0.5) Absolute Lymphs (auto) (1.0-4.6) Absolute Monos (auto) (0.0-1.3) Lymphocytes % (24.0-44.0) % Monocytes % (0.0-12.0) % Eosinophils % (0.00-5.0) % Basophils % (0.0-0.4) % Absolute Granulocytes (1.4-6.9) Basophils # (0-0.4) Sodium (137-145) mmol/L Potassium (3.5-5.1) mmol/L Chloride (98-107) mmol/L Carbon Dioxide (22-30) mmol/L Anion Gap (5-15) MEQ/L BUN (7-17) mg/dL Creatinine (0.52-1.04) mg/dL Estimated GFR ML/MIN Glucose (74-106) mg/dL Lactic Acid 1.2 (0.4-2.0) Calcium (8.4-10.2) mg/dL Total Bilirubin (0.2-1.3) mg/dL AST (14-36) U/L ALT (0-35) U/L Alkaline Phosphatase (38-126) U/L Serum Total Protein (6.3-8.2) g/dL Albumin (3.5-5.0) g/dL Amylase (30-110) U/L Lipase (23-300) U/L Urine Color ROSANNA (YELLOW) Urine Appearance CLOUDY (CLEAR) Urine pH 5.0 (5-6) Ur Specific Aubrey 1.026 (1.005-1.025) Urine Protein 100 (Negative) Urine Ketones NEGATIVE (NEGATIVE) Urine Blood LARGE (0-5) Hemal/ul Urine Nitrite NEGATIVE (NEGATIVE) Urine Bilirubin NEGATIVE (NEGATIVE) Urine Urobilinogen NEGATIVE (0-1) mg/dL Ur Leukocyte Esterase NEGATIVE (NEGATIVE) Urine WBC (Auto) 3-5 (0-5) /HPF Urine RBC (Auto) >101 (0-2) /HPF U Epithel Cells (Auto) NONE (FEW) /HPF Urine Bacteria (Auto) NONE SEEN (NEGATIVE) /HPF Calcium Oxalate Crystal 11-25 (NEGATIVE) /HPF Urine Yeast (Budding) Few (NEGATIVE) /HPF Urine Culture Reflexed YES (NO) Urine Glucose NEGATIVE (NEGATIVE) mg/dL Urine Opiates Level POSITIVE (NEGATIVE) Ur Methadone NEGATIVE (NEGATIVE) Urine Barbiturates NEGATIVE (NEGATIVE) Ur Phencyclidine (PCP) NEGATIVE (NEGATIVE) Urine Amphetamine NEGATIVE (NEGATIVE) U Benzodiazepine Level NEGATIVE (NEGATIVE) Urine Cocaine NEGATIVE (NEGATIVE) Urine Marijuana (THC) NEGATIVE (NEGATIVE) 11/12/20 11/12/20 Range/Units 00:34 00:34 WBC 9.1 (4.0-10.5) K/mm3 RBC 3.83 L (4.1-5.4) M/mm3 Hgb 10.3 L (12.0-16.0) gm/dl Hct 34.3 L (35-47) % MCV 89.6 (78-100) fl MCH 26.9 (26-32) pg MCHC 30.0 L (32-36) g/dl RDW 18.1 H (11.5-14.0) % Plt Count 257 (150-450) K/mm3 MPV 8.9 (7.5-11.0) fl Gran % 84.6 H (36.0-66.0) % Eos # (Auto) 0.06 (0-0.5) Absolute Lymphs (auto) 0.75 L (1.0-4.6) Absolute Monos (auto) 0.55 (0.0-1.3) Lymphocytes % 8.3 L (24.0-44.0) % Monocytes % 6.1 (0.0-12.0) % Eosinophils % 0.7 (0.00-5.0) % Basophils % 0.3 (0.0-0.4) % Absolute Granulocytes 7.68 H (1.4-6.9) Basophils # 0.03 (0-0.4) Sodium 139 (137-145) mmol/L Potassium 4.1 (3.5-5.1) mmol/L Chloride 107 (98-107) mmol/L Carbon Dioxide 22 (22-30) mmol/L Anion Gap 14.4 (5-15) MEQ/L BUN 26 H (7-17) mg/dL Creatinine 1.65 H (0.52-1.04) mg/dL Estimated GFR 33.3 ML/MIN Glucose 123 H (74-106) mg/dL Lactic Acid (0.4-2.0) Calcium 9.1 (8.4-10.2) mg/dL Total Bilirubin 0.30 (0.2-1.3) mg/dL AST 23 (14-36) U/L ALT 11 (0-35) U/L Alkaline Phosphatase 94 (38-126) U/L Serum Total Protein 7.5 (6.3-8.2) g/dL Albumin 4.1 (3.5-5.0) g/dL Amylase 38 (30-110) U/L Lipase 91 (23-300) U/L Urine Color (YELLOW) Urine Appearance (CLEAR) Urine pH (5-6) Ur Specific Aubrey (1.005-1.025) Urine Protein (Negative) Urine Ketones (NEGATIVE) Urine Blood (0-5) Hemal/ul Urine Nitrite (NEGATIVE) Urine Bilirubin (NEGATIVE) Urine Urobilinogen (0-1) mg/dL Ur Leukocyte Esterase (NEGATIVE) Urine WBC (Auto) (0-5) /HPF Urine RBC (Auto) (0-2) /HPF U Epithel Cells (Auto) (FEW) /HPF Urine Bacteria (Auto) (NEGATIVE) /HPF Calcium Oxalate Crystal (NEGATIVE) /HPF Urine Yeast (Budding) (NEGATIVE) /HPF Urine Culture Reflexed (NO) Urine Glucose (NEGATIVE) mg/dL Urine Opiates Level (NEGATIVE) Ur Methadone (NEGATIVE) Urine Barbiturates (NEGATIVE) Ur Phencyclidine (PCP) (NEGATIVE) Urine Amphetamine (NEGATIVE) U Benzodiazepine Level (NEGATIVE) Urine Cocaine (NEGATIVE) Urine Marijuana (THC) (NEGATIVE) - Progress Progress: improved, pain not gone completely, re-examined Progress Note: 11/12/20 01:09 I reviewed the records from [facility]'s emergency department visit by this patient. The visit was approximately 10 hours prior to our evaluation here in this emergency department. Patient was placed on Cipro for possible early urinary tract infection. CAT scan of the abdomen pelvis without contrast shows a 2 mm stone in the proximal left ureter with mild hydronephrosis. Information from this visit was provided to urologist Dr. Evert Duque for patient to follow-up in. 11/12/20 02:11 CAT scan of the abdomen and pelvis without contrast shows a mild left-sided hydronephrosis and hydroureter with an approximately 4 mm calculus at the base of the bladder on the left. Counseled pt/family regarding: lab results, diagnosis, need for follow-up, rad results - Departure Departure Disposition: Home Clinical Impression: Bladder calculus Condition: Stable Critical Care Time: No Referrals: WAQAR CASTRO [Primary Care Provider] - Additional Instructions: Drink plenty of fluids. Follow-up with your primary care doctor for further management.
[2020-11-12 00:37] LABS: Absolute Neutrophil Ct (ANC) 7.68 (1.4-6.9); BASOPHIL % 0.3 % (0.0-0.4); Basophil (Absolute #) 0.03 (0-0.4); Eosinophil % 0.7 % (0.00-5.0); Eosinophil (Absolute #) 0.06 (0-0.5); Hematocrit 34.3 % (35-47); Hemoglobin 10.3 gm/dl (12.0-16.0); Lymphocyte (Absolute #) 0.75 (1.0-4.6); Lymphocytes % 8.3 % (24.0-44.0); Mean Cell Volume 89.6 fl (78-100); Mean Corpuscular Hemoglobin 26.9 pg (26-32); Mean Platelet Volume 8.9 fl (7.5-11.0); Monocyte (Absolute #) 0.55 (0.0-1.3); Monocytes % 6.1 % (0.0-12.0); Neutrophil % 84.6 % (36.0-66.0); Platelet Count 257 K/mm3 (150-450); Red Blood Count 3.83 M/mm3 (4.1-5.4); Red Cell Distribution Width 18.1 % (11.5-14.0); White Blood Count 9.1 K/mm3 (4.0-10.5)
[2020-11-12 00:52] LABS: ALBUMIN 4.1 g/dL (3.5-5.0); ANION GAP 14.4 MEQ/L (5-15); BILIRUBIN,TOTAL 0.3 mg/dL (0.2-1.3); Calcium 9.1 mg/dL (8.4-10.2); Creatinine 1 1.65 mg/dL (0.52-1.04); EST GLOMERULAR FILTRATION RATE 33.3 ML/MIN; Potassium 4.1 mmol/L (3.5-5.1); Total Protein 7.5 g/dL (6.3-8.2)
[2020-11-12 00:57] LABS: Amphetamine,Urine NEGATIVE (NEGATIVE); Barbiturate,Urine NEGATIVE (NEGATIVE); Benzodiazepine,Urine NEGATIVE (NEGATIVE); Cocaine,Urine NEGATIVE (NEGATIVE); Methadone,Urine NEGATIVE (NEGATIVE); Opiate,Urine POSITIVE (NEGATIVE); PCP,Urine NEGATIVE (NEGATIVE); THC,Urine NEGATIVE (NEGATIVE)
[2020-11-12 01:03] LABS: Appearance CLOUDY (CLEAR); Bacteria NONE SEEN /HPF (NEGATIVE); Bilirubin NEGATIVE (NEGATIVE); Blood LARGE Ery/ul (0-5); Budding Yeast Few /HPF (NEGATIVE); Glucose NEGATIVE (NEGATIVE); Ketones NEGATIVE (NEGATIVE); Leukocyte Esterase NEGATIVE (NEGATIVE); Nitrite NEGATIVE (NEGATIVE); Protein,Urine Dip 100 (Negative); RBC >101 /HPF (0-2); Specific Gravity 1.026 (1.005-1.025); Urobilinogen NEGATIVE mg/dL (0-1)
[2020-11-12] MEDS ORDERED: TORAdol 30 mg Injection IV ONE (02:10)
[2020-11-12] MEDS ORDERED: TORAdol 30 mg Injection ONE (02:43)
[2020-11-12 03:53] VITALS: BP 125/71; PULSE 88; O2SAT 98
--- NOTE | 2020-11-12 07:46 | XRAY ---
Indication: Left abdomen/flank pain. Nausea and vomiting. Multiple contiguous axial images obtained through the abdomen and pelvis without contrast. Comparison: February 18, 2017 Lung bases degraded by respiration artifact with grossly stable bibasilar fibrosis/scarring and cardiomegaly. New left back epidural stimulator device produces beam artifact. Noncontrasted stomach and bowel loops nonobstructed with stable right lower quadrant colostomy, cholecystectomy, and hysterectomy. New 3-4 mm urinary bladder calculus adjacent to the left UVJ. Left ureter is minimally prominent and there is mild hydronephrosis consistent with obstructive uropathy. No free fluid/air. Left kidney demonstrates cortical scarring with 5 mm calculus and 1 cm cortical hyperdense cyst/calcification. Remaining liver, pancreas, spleen, adrenal glands, right kidney, right ureter, and urinary bladder are unremarkable for noncontrast exam. There remains minimal aortoiliac calcifications without AAA. New IVC filter and new stent grafts within the IVC, common iliac, and external iliac veins bilaterally. Osseous structures again demonstrates L3/L4 kyphoplasty. New L5-S1 fusion surgery with right posterior fusion hardware and intervertebral spacer. The intervertebral spacer encroaches on the spinal canal and right neural foramina 8-9 mm. Impression: 1. New 3-4 mm urinary bladder calculus. Minimal left hydronephrosis/hydroureter consistent with recent passage of calculus. 2. Left renal cortical scarring with micro-calculus and small cortical hyperdense cyst/calcification. 3. Interval L5-S1 fusion with intact hardware. Intervertebral spacer encroaches on the spinal canal/right neural foramina. 4. New IVC filter and new stent grafts in the IVC, common iliac, and iliac veins. 5. Again incidental cardiomegaly and right lower quadrant colostomy. Comment: Preliminary interpretation was made by [facility]. No critical discrepancy.
== END 2020-11-12 03:00 | disposition home or self-care (01) ==
LOC: ED 23:46
DX: N21.0 Calculus in bladder (principal)
CPT/HCPCS: 36000; 36415; 74176; 80053; 80307; 81001; 82150; 83605; 83690; 85025; 87086; 96374; 99284; J1642; J1885

== ENCOUNTER 2021-02-10 13:20 | Emergency (ER) | payer MEDICARE ==
[2021-02-10] MEDS ORDERED: Zofran 4 MG/2 ML VIAL IV ONE (13:47)
[2021-02-10] MEDS ORDERED: MORPHINE SULFATE 4 MG INJ IV ONE (13:47)
[2021-02-10] MEDS ORDERED: Zofran 4 MG/2 ML VIAL ONE (13:52)
[2021-02-10] MEDS ORDERED: MORPHINE SULFATE 4 MG INJ ONE (13:53)
--- NOTE | 2021-02-10 13:58 | ERPHSYRPT ---
- History of Present Illness Time Seen by Provider: 02/10/21 13:21 Source: patient, EMS Exam Limitations: no limitations Patient Subjective Stated Complaint: Left shoulder pain Triage Nursing Assessment: Patient brought into ED via EMS and transferred to bed per assist of 2. Patient A+O X3. Patient's skin pink, warm and dry. Patient complains of left shoulder pain. Patient states she was sitting in her chair and attempted to get up and couldn't due to her left shoulder hurting. She states left shoulder hurts all down arm and into left waist 12/26. Patient denies recent trauma or injury. Patient takes Dilaudid 4mg 5 times a day but hasn't taken any since last night due to having to go to the store to shop today. Physician History: 65 years old female with multiple medical problems including atrial fibrillation status post pacemaker/defibrillator, on Eliquis, chronic back pain on pain medication presented in the ER with sudden onset left shoulder pain when she tried to reach to warp picker a drink and felt sharp shooting pain in the left shoulder radiating to left upper arm and some on the scapula/upper back area. Moderate to severe intensity, aggravated with minimal movements and since then she is having difficulty movements of her shoulder. Tingling sensation in the left upper extremity. No numbness or focal weakness. Denies any chest pain palpitations or shortness of breath. Did not hear any popping or snapping sound. She cannot raise her left arm above shoulder. Occurred: just prior to arrival Method of Injury: other Quality: sharpness Severity of Pain-Max: moderate Severity of Pain-Current: moderate Extremities Pain Location: shoulder: left Modifying Factors: Improves With: immobilization. Worsens With: movement Associated Symptoms: none Allergies/Adverse Reactions: adhesive Allergy (Mild, Verified 02/10/21 13:23) Blisters codeine [Codeine] Allergy (Mild, Verified 02/10/21 13:23) Nausea and Vomiting Sulfa (Sulfonamide Antibiotics) [Sulfa(Sulfonamide Antibiotics)] Allergy (Mild, Verified 02/10/21 13:23) Nausea and Vomiting iron Adverse Reaction (Intermediate, Verified 02/10/21 13:23) Nausea oxycodone [From Percocet] Adverse Reaction (Intermediate, Verified 02/10/21 13:23) Vomiting Home Medications: Tizanidine HCl 6 mg PO TID PRN PRN 11/10/17 [History] Furosemide [Lasix] 20 mg PO DAILY PRN PRN 03/09/18 [History] Promethazine HCl 25 mg [Phenergan 25 mg] 25 mg PO Q6H PRN PRN 01/14/19 [History] Levothyroxine Sodium [Synthroid] 300 mcg PO BID 04/29/19 [History] Nitroglycerin 0.4 mg SL Q5MIN PRN MR X 3 PRN 04/29/19 [History] Metoprolol Succinate 50 mg PO BID 09/20/19 [History] Hydromorphone HCl 4 mg [Dilaudid 4 MG Tab] 1 tab PO 5XD 02/10/21 [History] PANTOPRAZOLE 40 mg Tablet [Protonix 40MG Tablet] 1 tab PO DAILY 02/10/21 [History] Hx Tetanus, Diphtheria Vaccination/Date Given: Yes Hx Influenza Vaccination/Date Given: Yes Hx Pneumococcal Vaccination/Date Given: Yes Immunizations Up to Date: Yes Travel Risk - International Travel Have you traveled outside of the country in past 3 weeks: No - Coronavirus Screening Are you exhibiting any of the following symptoms?: No Close contact with a COVID-19 positive Pt in past 14-21 Days: No - Vaccine Status Have you recieved a Covid-19 vaccination: No - Review of Systems Constitutional: No Symptoms Eyes: No Symptoms Ears, Nose, & Throat: No Symptoms Respiratory: No Symptoms Cardiac: No Symptoms Abdominal/Gastrointestinal: No Symptoms Genitourinary Symptoms: No Symptoms Musculoskeletal: Joint Pain Skin: No Symptoms Neurological: No Symptoms Endocrine: No Symptoms Hematologic/Lymphatic: No Symptoms Immunological/Allergic: No Symptoms - Past Medical History Pertinent Past Medical History: Yes Neurological History: Migraines, Stroke ENT History: No Pertinent History Cardiac History: Angina, Congestive Heart Failure, Coronary Artery Disease, Deep Vein Thrombosis, Other Respiratory History: Asthma Endocrine Medical History: Diabetes Type II, Hypothyroidism, Thyroid Cancer Musculoskeletal History: Other GI Medical History: GERD, Hernia, Other History: Other Psycho-Social History: No Pertinent History Female Reproductive Disorders: Endometriosis Other Medical History: HX Cardiac Arrest, HX Thyroid Removal, HX Back pain. HX A-Fib - Past Surgical History Past Surgical History: Yes Neuro Surgical History: No Pertinent History Cardiac: Cardiac Catheterization, Internal Defibrillator, Pacemaker, Other Respiratory: No Pertinent History Gastrointestinal: Appendectomy, Cholecystectomy, Colon Resection, Hernia Repair, Other Genitourinary: No Pertinent History Musculoskeletal: Orthopedic Surgery Female Surgical History: Hysterectomy Other Surgical History: THYROID REMOVED, 40% and 50% blockages found with last heart cath about 4 years ago. ankle surgery d/t break,ileostomy, CVL port removed and replaced, Port placed. HX ostomy repair due to blockage 09/02, back surgery and 4 I&D september and october and november 2017. 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 TLIF fused discs in back. OCTOBER 2018 CAROTIDECTOMY AND LYMPH NODE REMOVAL ON RIGHT SIDE. Right Parotid gland removed. "filter for blood clots 2018" - Social History Smoking Status: Never smoker Exposure to second hand smoke: No Alcohol Use: None Drug Use: none Patient Lives Alone: No Significant Family History: heart disease, cancer, diabetes - Female History Hx Now: No - Nursing Vital Signs Nursing Vital Signs: Initial Vital Signs Temperature 97.5 F 02/10/21 13:27 Pulse Rate 79 02/10/21 13:27 Respiratory Rate 18 02/10/21 13:27 Blood Pressure 119/74 02/10/21 13:27 O2 Sat by Pulse Oximetry 98 02/10/21 13:27 Pain Scale Pain Intensity 6 - Physical Exam General Appearance: no apparent distress, alert Eyes, Ears, Nose, Throat Exam: normal ENT inspection Neck Exam: normal inspection, non-tender, supple, full range of motion, No meningismus Cardiovascular/Respiratory Exam: chest non-tender, normal breath sounds, regular rate/rhythm Abdominal Exam: non-tender Back Exam: normal inspection, normal range of motion Shoulder Exam: normal inspection, limited ROM (Left shoulder. Intact distal neurovascular), pain, No soft tissue tenderness Elbow/Forearm Exam: normal inspection, non-tender, no evidence of injury, normal ROM Wrist Exam: normal inspection Hand Exam: normal inspection, non-tender, no evidence of injury, normal ROM Neuro/Tendon Exam: normal sensation, normal motor functions Mental Status Exam: alert, oriented x 3 Skin Exam: normal color SpO2 Interpretation: normal SpO2: 98 O2 Delivery: Room Air - Course EKG Interpreted by Me: RATE (74, ventricular paced rhythm), Right [place] Deviation, NORMAL INTERVALS, Non-specific ST Changes Ordered Tests: Active Orders 24 hr Category Date Time 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[employer] Lines STAT Care 02/10/21 13:47 Active EKG-ER Only STAT Care 02/10/21 13:47 Active IV Insertion STAT Care 02/10/21 14:25 Active CHEST 1 VIEW (PORTABLE) Stat Exams 02/10/21 13:47 Taken SHOULDER Stat Exams 02/10/21 14:37 Taken CBC W DIFF Stat Lab 02/10/21 14:00 Completed CMP Stat Lab 02/10/21 14:00 Completed NT PRO BNP Stat Lab 02/10/21 14:00 Completed TROPONIN Q3H Lab 02/10/21 14:00 Completed TROPONIN Q3H Lab 02/10/21 17:00 Ordered TROPONIN Q3H Lab 02/10/21 20:00 Ordered TROPONIN Q3H Lab 02/10/21 23:00 Ordered TROPONIN Q3H Lab 02/11/21 02:00 Ordered Medication Summary Generic Name Dose Route Start Last Admin Trade Name Juanq PRN Reason Stop Dose Admin Heparin Sodium (Beef Lung) 500 units 02/10/21 14:26 Heparin Lock Flush 100 Units/Ml 5ml Syringe PORT FLUSH 03/12/21 14:25 PRN PRN IV PORT FLUSH Discontinued Medications Generic Name Dose Route Start Last Admin Trade Name Juanq PRN Reason Stop Dose Admin Hydromorphone HCl 0.5 mg 02/10/21 14:39 02/10/21 15:00 Hydromorphone 1 Mg/Ml Injection IV 02/10/21 14:40 0.5 mg STAT ONE Administration Hydromorphone HCl Confirm 02/10/21 14:59 Hydromorphone 1 Mg/Ml Injection Administered 02/10/21 15:00 Dose 1 mg .ROUTE .STK-MED ONE Morphine Sulfate 4 mg 02/10/21 13:47 02/10/21 13:59 Morphine Sulfate 4 Mg Inj IV 02/10/21 13:48 4 mg STAT ONE Administration Morphine Sulfate Confirm 02/10/21 13:53 Morphine Sulfate 4 Mg Inj Administered 02/10/21 13:54 Dose 4 mg .ROUTE .STK-MED ONE Ondansetron HCl 4 mg 02/10/21 13:47 02/10/21 14:00 Zofran 4 Mg/2 Ml Vial IV 02/10/21 13:48 4 mg STAT ONE Administration Ondansetron HCl Confirm 02/10/21 13:52 Zofran 4 Mg/2 Ml Vial Administered 02/10/21 13:53 Dose 4 mg .ROUTE .STK-MED ONE Lab/Rad Data: Laboratory Result Diagrams 02/10/21 14:00 02/10/21 14:00 Laboratory Results 02/10/21 02/10/21 02/10/21 Range/Units 14:00 14:00 14:00 WBC 8.7 (4.0-10.5) K/mm3 RBC 3.86 L (4.1-5.4) M/mm3 Hgb 10.8 L (12.0-16.0) gm/dl Hct 34.7 L (35-47) % MCV 89.9 (78-100) fl MCH 28.0 (26-32) pg MCHC 31.1 L (32-36) g/dl RDW 15.0 H (11.5-14.0) % Plt Count 222 (150-450) K/mm3 MPV 9.2 (7.5-11.0) fl Gran % 68.1 H (36.0-66.0) % Eos # (Auto) 0.22 (0-0.5) Absolute Lymphs (auto) 1.74 (1.0-4.6) Absolute Monos (auto) 0.77 (0.0-1.3) Lymphocytes % 20.0 L (24.0-44.0) % Monocytes % 8.9 (0.0-12.0) % Eosinophils % 2.5 (0.00-5.0) % Basophils % 0.5 (0.0-0.4) % Absolute Granulocytes 5.92 (1.4-6.9) Basophils # 0.04 (0-0.4) Sodium 138 (137-145) mmol/L Potassium 4.0 (3.5-5.1) mmol/L Chloride 108 H (98-107) mmol/L Carbon Dioxide 20 L (22-30) mmol/L Anion Gap 13.1 (5-15) MEQ/L BUN 21 H (7-17) mg/dL Creatinine 1.48 H (0.52-1.04) mg/dL Estimated GFR 37.7 ML/MIN Glucose 112 H (74-106) mg/dL Calcium 9.1 (8.4-10.2) mg/dL Total Bilirubin 0.40 (0.2-1.3) mg/dL AST 22 (14-36) U/L ALT 10 (0-35) U/L Alkaline Phosphatase 92 (38-126) U/L Troponin I < 0.012 (0.000-0.034) ng/mL NT-Pro-B Natriuret Pep 448 (0-900) pg/mL Serum Total Protein 7.2 (6.3-8.2) g/dL Albumin 3.9 (3.5-5.0) g/dL - Progress Progress: improved, pain not gone completely, re-examined Progress Note: 02/10/21 15:46 65 years old is evaluated for sudden onset left shoulder pain after she tried to grab her drain. Does have history of chronic pains. Pain is reproducible with movements of left shoulder and has some limitation range of motion as well. So me point tenderness in the right shoulder area without any crepitus and x-rays ruled out any fracture dislocation. Chest x-ray negative otherwise for any acute findings reviewed by me, official report is pending. I have obtained her EKG which is a paced rhythm without any ST elevation and negative troponins. Baseline work-up grossly unremarkable for any acute changes. She is given morphine and Dilaudid, on reevaluation she is feeling better and able to move her shoulder better as well. I believe patient has some sprain/strain of left shoulder and recommended continue with our routine pain medications and outpatient primary care and orthopedic follow-up. I do not think her pain is cardiac or pulmonary in origin and do not think she needs further evaluation and is stable for discharge. Discussed signs symptoms of worsening needing return to ER which she seems understanding. Counseled pt/family regarding: lab results, diagnosis, need for follow-up, rad results - Departure Departure Disposition: Home Clinical Impression: Acute pain of left shoulder Condition: Stable Critical Care Time: No Referrals: WAQAR CASTRO [Primary Care Provider] - Follow Up with PCP/3 days JUANP [employer] [NON-STAFF PHY W/O PRIVILEGES] - (Call Friday morning for reevaluation) Instructions: Shoulder Sprain (DC), Shoulder Tendinopathy (DC) Additional Instructions: Take your pain medications which you have at home as recommended. Avoid exertional activities. Return to ER for excruciating pain or if you have chest pain palpitations or shortness of breath. Follow-up with PCP early next week as well.
[2021-02-10 14:10] LABS: Absolute Neutrophil Ct (ANC) 5.92 (1.4-6.9); BASOPHIL % 0.5 % (0.0-0.4); Basophil (Absolute #) 0.04 (0-0.4); Eosinophil % 2.5 % (0.00-5.0); Eosinophil (Absolute #) 0.22 (0-0.5); Hematocrit 34.7 % (35-47); Hemoglobin 10.8 gm/dl (12.0-16.0); Lymphocyte (Absolute #) 1.74 (1.0-4.6); Mean Cell Volume 89.9 fl (78-100); Mean Corpuscular Hgb Concent. 31.1 g/dl (32-36); Mean Platelet Volume 9.2 fl (7.5-11.0); Monocyte (Absolute #) 0.77 (0.0-1.3); Monocytes % 8.9 % (0.0-12.0); Neutrophil % 68.1 % (36.0-66.0); Platelet Count 222 K/mm3 (150-450); Red Blood Count 3.86 M/mm3 (4.1-5.4); White Blood Count 8.7 K/mm3 (4.0-10.5)
[2021-02-10 14:25] VITALS: PULSE 72
[2021-02-10 14:35] LABS: ALBUMIN 3.9 g/dL (3.5-5.0); ANION GAP 13.1 MEQ/L (5-15); BILIRUBIN,TOTAL 0.4 mg/dL (0.2-1.3); Calcium 9.1 mg/dL (8.4-10.2); Creatinine 1 1.48 mg/dL (0.52-1.04); EST GLOMERULAR FILTRATION RATE 37.7 ML/MIN; Total Protein 7.2 g/dL (6.3-8.2)
[2021-02-10] MEDS ORDERED: Hydromorphone 1 mg/ml Injection IV ONE (14:39)
[2021-02-10] MEDS ORDERED: Hydromorphone 1 mg/ml Injection ONE (14:59)
[2021-02-10 15:59] VITALS: BP 139/74; O2SAT 95
--- NOTE | 2021-02-10 22:12 | XRAY ---
Indication: Left chest and shoulder pain. No known injury. Comparison: March 20, 2020. Portable chest unchanged again demonstrating cardiomegaly, right Port-A-Cath, and left AICD. Lungs remain clear. Bony thorax intact. No new/acute findings.
--- NOTE | 2021-02-10 22:12 | XRAY ---
Indication: Pain. Limited range of motion. No known injury. Comparison: None 3 view left shoulder demonstrates mild osteopenia, mild glenohumeral/AC degenerative arthropathy, and partially visualized left AICD. No other bony, articular, or soft tissue abnormalities. Comment: Preliminary interpretation made by [facility]. No critical discrepancy.
== END 2021-02-10 16:01 | disposition home or self-care (01) ==
LOC: ED 13:20
DX: M25.512 Pain in left shoulder (principal); Z95.810 Presence of automatic (implantable) cardiac defibrillator; Z79.01 Long term (current) use of anticoagulants; Z79.891 Long term (current) use of opiate analgesic; Z79.899 Other long term (current) drug therapy; I50.9 Heart failure, unspecified; I25.10 Atherosclerotic heart disease of native coronary artery without angina pectoris; E11.9 Type 2 diabetes mellitus without complications; E03.9 Hypothyroidism, unspecified
CPT/HCPCS: 36000; 36415; 71045; 73030; 80053; 83880; 84484; 85025; 93005; 93041; 96374; 96375; 99284; J1170; J1642; J2270; J2405

== ENCOUNTER 2021-03-19 16:20 | Inpatient (IN) | payer MEDICARE ==
[2021-03-19] MEDS ORDERED: Sodium Chloride 0.9% 1000 ML 1,000 ML IV SCH (16:45)
[2021-03-19] MEDS ORDERED: Lactated Ringers 1,000 ML IV ONE ×2 (17:10→17:19)
[2021-03-19] MEDS ORDERED: Nitrostat 0.4 MG Tablet SL PRN (17:18)
[2021-03-19] MEDS ORDERED: TIZANIDINE HCL 2 MG PO PRN (17:18)
[2021-03-19] MEDS: ELIQUIS 2.5 MG TABLET PO SCH (20:51)
[2021-03-19] MEDS: Ms Contin 15 MG PO SCH (20:51)
[2021-03-19] MEDS: SYNTHROID 150 MCG PO SCH (20:52)
[2021-03-19] MEDS: PHENERGAN 25 MG PO PRN (20:52)
[2021-03-19] MEDS: Toprol-Xl 25MG Tablets PO SCH (20:52)
[2021-03-19] MEDS: Toprol Xl 50 MG PO SCH (20:53)
[2021-03-19] MEDS: Zanaflex 4 MG PO PRN (20:53)
[2021-03-19] MEDS ORDERED: NON-FORMULARY ITEM (Apixaban [Eliquis] 5 MG Tablet) PO SCH (22:00)
[2021-03-19] MEDS ORDERED: MORPHINE SULFATE ER PO SCH ×2 (22:00)
[2021-03-19] MEDS ORDERED: LEVOTHYROXINE SODIUM 300 MCG PO SCH (22:00)
[2021-03-19 23:24] LABS: Appearance SLIGHTLY CLOUDY (CLEAR); Bacteria RARE /HPF (NEGATIVE); Bilirubin NEGATIVE (NEGATIVE); Blood NEGATIVE Ery/ul (0-5); Epithelial Cells RARE /HPF (FEW); Glucose NEGATIVE (NEGATIVE); Ketones NEGATIVE (NEGATIVE); Leukocyte Esterase NEGATIVE (NEGATIVE); Mucus SLIGHT /HPF (NEGATIVE); Nitrite NEGATIVE (NEGATIVE); Protein,Urine Dip 30 (Negative); Specific Gravity 1.027 (1.005-1.025); Urobilinogen NEGATIVE mg/dL (0-1)
[2021-03-19 23:33] LABS: PROTEIN,URINE RANDOM 46 mg/dL (0-12); Sodium, Urine < 5 mmol/L (30-90)
[2021-03-19 23:34] LABS: CREATININE,URINE RANDOM 269.1 MG/DL
[2021-03-20] MEDS ORDERED: Sodium Chloride 0.9% 1000 ML 0 ML ONE (03:44)
[2021-03-20] MEDS: Lactated Ringers 1,000 ML IV SCH ×3 (03:56→21:00)
[2021-03-20] MEDS: Zanaflex 4 MG PO PRN (04:00)
[2021-03-20 05:36] LABS: Hemoglobin 10.6 gm/dl (12.0-16.0); Mean Cell Volume 90.7 fl (78-100); Mean Corpuscular Hemoglobin 28.3 pg (26-32); Mean Corpuscular Hgb Concent. 31.2 g/dl (32-36); Mean Platelet Volume 8.9 fl (7.5-11.0); Platelet Count 207 K/mm3 (150-450); Red Blood Count 3.75 M/mm3 (4.1-5.4); Red Cell Distribution Width 15.9 % (11.5-14.0); White Blood Count 2.9 K/mm3 (4.0-10.5)
[2021-03-20 05:47] LABS: ALBUMIN 3.9 g/dL (3.5-5.0); BILIRUBIN,TOTAL 0.5 mg/dL (0.2-1.3); Calcium 9.1 mg/dL (8.4-10.2); Creatinine 1 1.11 mg/dL (0.52-1.04); EST GLOMERULAR FILTRATION RATE 52.6 ML/MIN; MAGNESIUM 1.7 mg/dL (1.6-2.3); Potassium 4.1 mmol/L (3.5-5.1); Total Protein 7.2 g/dL (6.3-8.2)
[2021-03-20] MEDS: ELIQUIS 2.5 MG TABLET PO SCH ×2 (09:04→21:00)
[2021-03-20] MEDS: Ms Contin 15 MG PO SCH ×3 (09:04→21:00)
[2021-03-20] MEDS: SYNTHROID 150 MCG PO SCH ×2 (09:05→21:00)
[2021-03-20] MEDS: Protonix 40MG Tablet PO SCH (09:05)
[2021-03-20] MEDS: Toprol Xl 50 MG PO SCH ×2 (09:06→21:00)
[2021-03-20] MEDS: Toprol-Xl 25MG Tablets PO SCH ×2 (09:07→21:00)
--- NOTE | 2021-03-20 10:52 | CONS ---
CONSULT DATE: 03/19/2021 REASON FOR CONSULT: Oliguria, anuria. HISTORY: Mayra Mullins is a very pleasant 65-year-old lady who has history of ileostomy in the past. Other comorbidities include back pain, hypertension and hypothyroidism. The patient denies any knowledge of prior kidney disease. Her baseline creatinine is within normal limits. The patient called Dr. Saúl Mccallum stating that she has not been making any urine for the last three to four days. Subsequently a renal consultation was called. I examined and took history personally. The patient stated that similar episodes had happened in the past but lasted only one day. Her ileostomy output is not more than usual according to her. She is nauseous especially in the morning but denies any gross vomiting. She denies any use of nonsteroidals. She has history of congestive heart failure but no progressive leg swelling. There is no shortness of breath. No use of nonsteroidals. No antibiotic recently used. Humphrey catheter was anchored in the hospital but did not elaborate any urine. No history of any autoimmune disease. On leading questions it comes to light that the patient's blood pressure has been fluctuating rapidly. Her pain stimulator was removed recently. Since then she is having severe headaches and she has taken Dilaudid and her blood pressure has fluctuated from 100 systolic to 200 systolic. REVIEW OF SYSTEMS: All systems were reviewed in detail. Basically positive for headache with use of Dilaudid and fluctuating blood pressure. No chest pain. No abdominal pain. No increase in ileostomy output. Appetite had been poor. Nausea has been present. No abdominal pain. Abdominal fullness has been present. No fever, chills, rigors. No skin rash. All systems reviewed in detail and pertinent mentioned here and in history of present illness and the rest were negative. PAST MEDICAL HISTORY: Back pain. Use of opioids. Gastroesophageal reflux disease. Hypothyroidism. Known history of chronic kidney disease. PAST SURGICAL HISTORY: Insertion of inferior vena cava filter because of deep vein thrombosis. Abdominal surgery with ileostomy with questionable history of [place]'s disease but no on any steroids. Cholecystectomy. Hysterectomy. Hiatal hernia repair. Appendectomy. Thyroid surgery. MEDICATIONS: Home medication included Lasix, Eliquis, melatonin, metoprolol, Nystatin, pantoprazole, Synthroid, tizanidine. ALLERGIES: CODEINE. SULFA. IRON. PERCOCET. ADHESIVE TAPE. SOCIAL HISTORY: Reviewed. No history of smoking. FAMILY HISTORY: No history of renal problems in the family. PHYSICAL EXAMINATION: Reveals a lady who was seen in the hospital. Vital signs were reviewed. HEENT: Normocephalic, atraumatic, slightly pale conjunctivae, dry oral mucosa. NECK: Supple. No JVD. CHEST: Clear. CVS: S1, S2 normal. ABDOMEN: Soft, nontender. No organomegaly. EXTREMITIES: No cyanosis, clubbing or edema. SKIN: No skin rash seen. NEUROLOGIC: The patient is alert, awake, oriented x3. LAB DATA AND TESTS: Labs were reviewed. Creatinine 1.45 baseline normal but the bicarb is 18. ASSESSMENT: 1) Acute kidney injury on chronic kidney disease, not otherwise specified. Etiology of acute kidney injury is not entirely clear. It could be dehydration plus fluctuating blood pressure. The patient's blood pressure has fluctuated from 100 systolic to 200 systolic. She was having severe headache and was taking Dilaudid. Such big fluctuations in the blood pressure can cause loss of auto-regulation and acute kidney injury. Could have had increased ileostomy output, details are not clear. We will give her fluid bolus followed by lactated Ringer's at 125 per hour. There is no other cause of acute kidney injury apparent as there is no increase in urine output. May need transfer to [facility]. We will do screening tests. We will do urine studies, monitor CMP. I doubt any glomerulonephritis at this time. Baseline ultrasonogram of kidneys will be done. 2) Metabolic acidosis. Bicarb is borderline low. It could be related to ileostomy plus acute kidney injury. Start lactated Ringer's which converts into bicarbonate. No issues with the liver at this time. 3) Hypotension, borderline hypotensive. Hold Lasix. Fluctuation in blood pressure present, add fluids as mentioned above. Okay to continue metoprolol. 4) Hypothyroidism. Continue Synthroid. I concur with the present medications. Follow the labs in the morning. Discussed with Dr. Mccallum.
--- NOTE | 2021-03-20 12:07 | XRAY ---
Indication: Renal failure. Two-dimensional renal sonogram performed. Comparison: October 10, 2016. Both kidneys normal in reniform shape with normal color perfusion. Right kidney is now smaller measuring 7.4 x 4.8 x 4.6 cm. Left kidney measures 9.5 x 4.7 x 4.4 cm. No focal solid/cystic renal mass or hydronephrosis. Urinary bladder is empty via Humphrey catheter. Impression: 1. Asymmetrically smaller right kidney. Rule out vascular compromise. 2. Negative left renal sonogram.
[2021-03-20] MEDS: PHENERGAN 25 MG PO PRN (17:50)
[2021-03-21] MEDS: Zanaflex 4 MG PO PRN ×2 (01:18→09:52)
[2021-03-21] MEDS: Lactated Ringers 1,000 ML IV SCH ×4 (03:41→23:10)
[2021-03-21] MEDS ORDERED: TYLENOL 325 MG PO PRN (04:22)
[2021-03-21] MEDS ORDERED: Sodium Chloride 0.9% 500 ML 500 ML IV ONE (04:23)
[2021-03-21 05:05] LABS: Absolute Neutrophil Ct (ANC) 3.35 (1.4-6.9); BASOPHIL % 1.1 % (0.0-0.4); Basophil (Absolute #) 0.06 (0-0.4); Eosinophil % 0.5 % (0.00-5.0); Eosinophil (Absolute #) 0.03 (0-0.5); Hematocrit 27.9 % (35-47); Hemoglobin 8.5 gm/dl (12.0-16.0); Lymphocyte (Absolute #) 1.26 (1.0-4.6); Lymphocytes % 22.7 % (24.0-44.0); Mean Cell Volume 91.8 fl (78-100); Mean Corpuscular Hgb Concent. 30.5 g/dl (32-36); Mean Platelet Volume 9.1 fl (7.5-11.0); Monocyte (Absolute #) 0.84 (0.0-1.3); Monocytes % 15.2 % (0.0-12.0); Neutrophil % 60.5 % (36.0-66.0); Platelet Count 153 K/mm3 (150-450); Red Blood Count 3.04 M/mm3 (4.1-5.4); Red Cell Distribution Width 16.2 % (11.5-14.0); White Blood Count 5.5 K/mm3 (4.0-10.5)
[2021-03-21 05:11] LABS: ALBUMIN 2.9 g/dL (3.5-5.0); ANION GAP 10.3 MEQ/L (5-15); BILIRUBIN,TOTAL 0.6 mg/dL (0.2-1.3); Calcium 7.7 mg/dL (8.4-10.2); Creatinine 1 1.29 mg/dL (0.52-1.04); EST GLOMERULAR FILTRATION RATE 44.2 ML/MIN; Potassium 3.7 mmol/L (3.5-5.1); Total Protein 5.8 g/dL (6.3-8.2)
[2021-03-21] MEDS: TYLENOL 325 MG PO PRN ×4 (09:55→22:07)
[2021-03-21] MEDS: SYNTHROID 150 MCG PO SCH ×2 (09:56→21:12)
[2021-03-21] MEDS: ELIQUIS 2.5 MG TABLET PO SCH ×2 (09:56→21:12)
[2021-03-21] MEDS: Protonix 40MG Tablet PO SCH (09:56)
[2021-03-21] MEDS ORDERED: PHARMACY DOSING REQUIRED: VANCOMYCIN IV STA ×2 (23:39→23:45)
[2021-03-22] MEDS ORDERED: VANCOMYCIN 1.25 GM/250 ML BAG 1.25 GM/250 ML PIGGYBACK IV ONE (01:15)
[2021-03-22] MEDS: Ms Contin 15 MG PO PRN ×2 (03:26→21:46)
[2021-03-22 05:11] LABS: Absolute Neutrophil Ct (ANC) 4.63 (1.4-6.9); BASOPHIL % 0.8 % (0.0-0.4); Basophil (Absolute #) 0.05 (0-0.4); Eosinophil % 0.8 % (0.00-5.0); Eosinophil (Absolute #) 0.05 (0-0.5); Hematocrit 31.3 % (35-47); Hemoglobin 9.7 gm/dl (12.0-16.0); Lymphocyte (Absolute #) 0.86 (1.0-4.6); Mean Cell Volume 90.5 fl (78-100); Mean Platelet Volume 9.1 fl (7.5-11.0); Monocyte (Absolute #) 0.54 (0.0-1.3); Monocytes % 8.8 % (0.0-12.0); Neutrophil % 75.6 % (36.0-66.0); Platelet Count 130 K/mm3 (150-450); Red Blood Count 3.46 M/mm3 (4.1-5.4); Red Cell Distribution Width 16.2 % (11.5-14.0); White Blood Count 6.1 K/mm3 (4.0-10.5)
[2021-03-22] MEDS: Lactated Ringers 1,000 ML IV SCH ×2 (07:24→16:50)
[2021-03-22] MEDS ORDERED: PHARMACY DOSING REQUEST MC ONE (07:48)
[2021-03-22] MEDS: Zofran 4 MG/2 ML VIAL IV PRN (08:06)
[2021-03-22] MEDS: Zosyn 2.25 GM 2.25 GM in Sodium Chloride 100ML MINI-BAG PLUS 100 ML IV SCH ×4 (08:06→23:21)
[2021-03-22] MEDS: TYLENOL 325 MG PO PRN ×2 (08:06→20:45)
[2021-03-22 08:56] LABS: ALBUMIN 2.8 g/dL (3.5-5.0); ANION GAP 10.6 MEQ/L (5-15); BILIRUBIN,TOTAL 0.5 mg/dL (0.2-1.3); Calcium 8.2 mg/dL (8.4-10.2); Creatinine 1 1.04 mg/dL (0.52-1.04); EST GLOMERULAR FILTRATION RATE 56.7 ML/MIN; Potassium 3.9 mmol/L (3.5-5.1); Total Protein 5.7 g/dL (6.3-8.2)
[2021-03-22] MEDS: Zanaflex 4 MG PO PRN (09:22)
[2021-03-22] MEDS: ELIQUIS 2.5 MG TABLET PO SCH ×2 (09:24→20:46)
[2021-03-22] MEDS: SYNTHROID 150 MCG PO SCH ×2 (09:24→20:46)
[2021-03-22] MEDS: Protonix 40MG Tablet PO SCH (09:24)
[2021-03-22 11:09] LABS: INR 1.46 (0.8-3.0); PROTIME 17.2 SECONDS (9.4-12.5)
[2021-03-22 11:12] LABS: PTT 29.9 SECONDS (25.1-36.5)
[2021-03-22] MEDS: VANCOMYCIN 1 GRAM/200 ML BAG 1 GM/200 ML PIGGYBACK IV SCH (20:47)
[2021-03-23] MEDS: Lactated Ringers 1,000 ML IV SCH ×2 (01:29→14:33)
[2021-03-23 05:26] LABS: Absolute Neutrophil Ct (ANC) 3.69 (1.4-6.9); BASOPHIL % 0.6 % (0.0-0.4); Basophil (Absolute #) 0.03 (0-0.4); Eosinophil % 1.6 % (0.00-5.0); Eosinophil (Absolute #) 0.08 (0-0.5); Hematocrit 27.9 % (35-47); Hemoglobin 8.5 gm/dl (12.0-16.0); Lymphocyte (Absolute #) 0.72 (1.0-4.6); Lymphocytes % 14.2 % (24.0-44.0); Mean Cell Volume 91.2 fl (78-100); Mean Corpuscular Hemoglobin 27.8 pg (26-32); Mean Corpuscular Hgb Concent. 30.5 g/dl (32-36); Mean Platelet Volume 10.2 fl (7.5-11.0); Monocyte (Absolute #) 0.56 (0.0-1.3); Neutrophil % 72.6 % (36.0-66.0); Platelet Count 108 K/mm3 (150-450); Red Blood Count 3.06 M/mm3 (4.1-5.4); Red Cell Distribution Width 16.1 % (11.5-14.0); White Blood Count 5.1 K/mm3 (4.0-10.5)
[2021-03-23] MEDS: Zosyn 2.25 GM 2.25 GM in Sodium Chloride 100ML MINI-BAG PLUS 100 ML IV SCH (05:49)
[2021-03-23 05:57] LABS: ALBUMIN 2.7 g/dL (3.5-5.0); ALKALINE PHOSPHATASE 122 U/L (38-126); BLOOD UREA NITROGEN 9 mg/dL (7-17); CHLORIDE 104 mmol/L (98-107); Calcium 8.2 mg/dL (8.4-10.2); Carbon Dioxide 26 mmol/L (22-30); Creatinine 1 0.95 mg/dL (0.52-1.04); EST GLOMERULAR FILTRATION RATE > 60.0 ML/MIN; Glucose 107 mg/dL (74-106); Potassium 3.5 mmol/L (3.5-5.1); SGOT/AST 36 U/L (14-36); SGPT/ALT 18 U/L (0-35); SODIUM 137 mmol/L (137-145); Total Protein 5.4 g/dL (6.3-8.2)
[2021-03-23] MEDS: Zanaflex 4 MG PO PRN ×2 (05:59→20:31)
--- NOTE | 2021-03-23 09:13 | XRAY ---
Indication: Right sided pain. UTI. Trouble urinating. Abnormal right kidney. Conventional contrast enhanced CTA abdomen/pelvis performed using 100 cc Isovue 370 contrast. Two-dimensional sagittal and coronal reformatted images obtained. Additional 3-dimensional reformatted images obtained using a separate workstation. Comparison: CT abdomen/pelvis without contrast exam February 13, 2021. Abdominal aorta is normal in course and caliber with very minimal arteriosclerotic calcifications distally and origin left common iliac artery. Negative for aneurysm/dissection. Remaining visualized pelvic arteries are widely patent. Normal patent branching celiac, superior mesenteric, and inferior mesenteric arteries. A single renal artery supplies each kidney and appear normal in CTA appearance. Lung bases again demonstrates cardiomegaly with bibasilar subsegmental atelectasis/scarring. New incompletely visualized small bibasilar effusions. Cardiac decompensation/fluid overload is of primary concern. Noncontrasted stomach and bowel loops appear nonobstructed again with right lower quadrant colostomy, epigastric surgical clips, cholecystectomy, and hysterectomy. No free fluid/air. Both kidneys enhance and excrete. Left kidney demonstrates stable cortical scarring/thinning and 1 cm cortical hyperdensity/calcification. No suspicious renal mass, hydronephrosis, or hydroureter. Remaining liver, pancreas, spleen, adrenal glands, and bladder are unremarkable. No pathologic retroperitoneal lymphadenopathy. Stable IVC filter and stent grafts in the IVC, common iliac, and external iliac veins bilaterally. Abdominal wall demonstrates stable caput medusa. Osseous structures again demonstrates L3/L4 kyphoplasty and L5-S1 fusion with intact fusion hardware. Stable L5-S1 intervertebral spacer encroaches on the spinal canal and right foramina. Previous left lower back epidural stimulator device and leads have been removed. Impression: 1. CTA abdomen/pelvis with contrast exam demonstrates very minimal arteriosclerotic disease as detailed. Negative for aneurysm, dissection, or critical stenosis/obstruction. 2. Again cardiomegaly with new bibasilar effusions. Rule out cardiac decompensation/fluid overload. 3. Stable left renal cortical scarring and left renal hyperdense cyst/calcification. 4. Stable postsurgical changes including right lower quadrant colostomy, IVC filter, multiple venous stents, lumbar kyphoplasty, and L5-S1 fusion. Grossly stable L5-S1 intervertebral spacer encroaches on the spinal canal/right neural foramina.
[2021-03-23] MEDS: ELIQUIS 2.5 MG TABLET PO SCH ×2 (09:37→20:28)
[2021-03-23] MEDS: Protonix 40MG Tablet PO SCH (09:37)
[2021-03-23] MEDS: SYNTHROID 150 MCG PO SCH ×2 (09:38→20:28)
[2021-03-23] MEDS: Zosyn 3.375 GM Vial 3.375 GM in Sodium Chloride 100ML MINI-BAG PLUS 100 ML IV SCH ×2 (12:21→18:48)
[2021-03-23] MEDS: Ms Contin 15 MG PO PRN ×2 (12:31→20:38)
[2021-03-23] MEDS: VANCOMYCIN 1 GRAM/200 ML BAG 1 GM/200 ML PIGGYBACK IV SCH (20:38)
[2021-03-23] MEDS: Zofran 4 MG/2 ML VIAL IV PRN (20:38)
[2021-03-24] MEDS: Zosyn 3.375 GM Vial 3.375 GM in Sodium Chloride 100ML MINI-BAG PLUS 100 ML IV SCH ×3 (01:34→12:45)
[2021-03-24] MEDS: Zanaflex 4 MG PO PRN (04:29)
[2021-03-24] MEDS: Ms Contin 15 MG PO PRN (04:30)
[2021-03-24 06:34] LABS: Absolute Neutrophil Ct (ANC) 1.73 (1.4-6.9); BASOPHIL % 0.6 % (0.0-0.4); Basophil (Absolute #) 0.02 (0-0.4); Eosinophil % 3.4 % (0.00-5.0); Eosinophil (Absolute #) 0.12 (0-0.5); Hematocrit 27.6 % (35-47); Hemoglobin 8.5 gm/dl (12.0-16.0); Lymphocyte (Absolute #) 1.19 (1.0-4.6); Lymphocytes % 34.1 % (24.0-44.0); Mean Corpuscular Hemoglobin 28.3 pg (26-32); Mean Corpuscular Hgb Concent. 30.8 g/dl (32-36); Mean Platelet Volume 10.4 fl (7.5-11.0); Monocyte (Absolute #) 0.43 (0.0-1.3); Monocytes % 12.3 % (0.0-12.0); Neutrophil % 49.6 % (36.0-66.0); Platelet Count 142 K/mm3 (150-450); Red Cell Distribution Width 16.1 % (11.5-14.0); White Blood Count 3.5 K/mm3 (4.0-10.5)
[2021-03-24 06:59] LABS: ALBUMIN 2.9 g/dL (3.5-5.0); ANION GAP 10.7 MEQ/L (5-15); BILIRUBIN,TOTAL 0.3 mg/dL (0.2-1.3); Calcium 8.3 mg/dL (8.4-10.2); Creatinine 1 1.16 mg/dL (0.52-1.04); Potassium 3.9 mmol/L (3.5-5.1); Total Protein 5.8 g/dL (6.3-8.2)
[2021-03-24] MEDS: ELIQUIS 2.5 MG TABLET PO SCH (09:20)
[2021-03-24] MEDS: Protonix 40MG Tablet PO SCH (09:20)
[2021-03-24] MEDS: SYNTHROID 150 MCG PO SCH (09:20)
[2021-03-24] MEDS: Lactated Ringers 1,000 ML IV SCH (11:09)
[2021-04-09 16:01] VITALS: BP 128/72; PULSE 70; O2SAT 96
--- NOTE | 2021-04-16 09:47 | HP ---
CHIEF COMPLAINT: Anuria. HISTORY OF PRESENT ILLNESS: The patient is a 65-year-old white female who presented to the office with complaints of no urine output over the past three days. The patient does have a colostomy bag in place from colon resection years ago but the patient reports there has been no increase in fluid levels in this and she is just noticing that she has not been making any urine. She reports that this is not new for her. She has had this problem previously but never for so long. The patient was felt to need to have further evaluation and was sent to the hospital as a direct admission for further evaluation and management, ultrasound and possible evaluation by the lean manufacturing leader. PAST MEDICAL/SURGICAL HISTORY: Significant for chronic back pain. She had as noted before colon resection. She has a colostomy bag in place and has had for the last few years. She also has a history of inferior vena cava filter because of deep vein thrombosis problem. The patient has a possibility of [place]'s disease which is unclear. She also previously had cholecystectomy, hysterectomy, hernia repair, appendectomy, thyroid surgeries. HOME MEDICATIONS: Included levothyroxine 300 mcg twice a day, nitroglycerin sublingual on PRN basis, metoprolol 75 mg twice a day. She is on Eliquis 5 mg twice a day and pantoprazole 40 mg a day. ALLERGIES: OXYCODONE. IRON. SULFA. CODEINE. ADHESIVE. PHYSICAL EXAMINATION: Revealed a well-nourished, well-developed white female with no significant problems observed at the present time. HEENT: Normocephalic, atraumatic. Pupils equal round reactive to light. Extraocular movements intact. Oropharynx is slightly dry. NECK: Supple without lymphadenopathy, thyromegaly or JVD. CHEST: Clear to auscultation. HEART: Regular rate and rhythm without murmurs, rubs or gallops. ABDOMEN: Soft, revealed the colostomy bag in place and not leaking. EXTREMITIES: Without cyanosis, clubbing or edema. NEUROLOGIC: The patient is alert and oriented x3. LAB DATA AND TESTS: The patient had no labs on initial admission to the hospital as she came over from the office. ASSESSMENT: A patient with anuria. We will obtain blood work including CMP, UA and CBC. We will obtain consultation from lean manufacturing leader for further evaluation and management.
--- NOTE | 2021-04-17 09:42 | DS ---
DISCHARGE DIAGNOSES: 1) ANURIA. 2) HISTORY OF COLON RESECTION WITH COLOSTOMY BAG IN PLACE. CONSULTANTS: Nephrology. HISTORY: The patient is a 65-year-old white female who presented to my office with complaints of anuria over the past three days. She was felt the need to be admitted to the hospital for evaluation and management of above stated problems and consultation from nephrology. HOSPITAL COURSE: The patient was admitted to the medicine story and given IV fluids. She had ultrasound of the bladder as well as CT scans of the abdomen and pelvis. The patient's white count was noted to be 2.9, hemoglobin 10.6 and PLT count 207,000. The patient was noted to have initial glucose of 96, BUN of 25 and creatinine of 1.1. The patient also had slight elevation of SGOT of 72. Her protein was somewhat low at 5.8. Her electrolytes showed her sodium to be 133, potassium 3.7. The other labs appeared to be essentially normal. She had a UA performed which showed specific gravity of 1.027. There was urine protein of 30 noted, 3-5 white blood cells and 6-10 red blood cells per high power field. The patient was admitted and developed a fever. Her initial procalcitonin level was not increased but during her hospital stay she started running a fever and the procalcitonin level increased to a level of 8.0. Nephrology had been consulted and they were doing further evaluation and management. The patient's urine output did leaf size picker with IV hydration. She had blood cultures and urine cultures performed. She developed a fever of 102F during her stay which was not present initially. The patient was treated with Zosyn and Vancomycin intravenously and blood cultures grew Acinetobacter baumannii. Sensitivities were obtained and showed this to be sensitive to essentially all medications. We chose Augmentin to send her home on and the patient continued to improve with increasing urinary output during her stay. The patient was finally felt to be ready for discharge home by 03/24/2021. She was discharged with instructions for follow up with nephrology and my office in one week and to continue the antibiotics as she improved after we gave her these medications. We are still not quite sure why the patient had anuria issues prior to her stay other than being due to dehydration.
== END 2021-03-24 13:00 | disposition home or self-care (01) | DRG 683 ==
LOC: MED SURG 16:20 → OBSVTOIN 03-21 04:20 → MED SURG 03-22 14:56
PROVIDERS: ADMIT Family Medicine; ATTEND Family Medicine
DX: R34 Anuria and oliguria (principal); N17.9 Acute kidney failure, unspecified; E87.2 Acidosis; R51.9 Headache, unspecified; N18.9 Chronic kidney disease, unspecified; I95.9 Hypotension, unspecified; E03.9 Hypothyroidism, unspecified; Z20.822 Contact with and (suspected) exposure to COVID-19; Z90.49 Acquired absence of other specified parts of digestive tract; Z93.3 Colostomy status
CPT/HCPCS: 36415; 36591; 74174; 76770; 80053; 81001; 82570; 82947; 83735; 84145; 84156; 84300; 85025; 85027; 85048; 85610; 85730; 87040; 87077; 87086; 87186; 93005; 94760; 99211; G0378; P9612; U0003; J2405; J2543; A9270-GY; J3370

== ENCOUNTER 2021-06-20 01:41 | Inpatient (IN) | payer MEDICARE ==
--- NOTE | 2021-06-20 02:13 | ERPHSYRPT ---
- History of Present Illness Source: patient Exam Limitations: no limitations Activities at Onset: activity Severity of Dyspnea-Max: mild Severity of Dyspnea-Current: mild (To moderate to moderate) Possible Cause: frequent episodes Modifying Factors: Improves With: activity Associated Symptoms: weakness Hx Tetanus, Diphtheria Vaccination/Date Given: Yes Hx Influenza Vaccination/Date Given: Yes Hx Pneumococcal Vaccination/Date Given: Yes <SKYE ALVARENGA - Last Filed: 06/20/21 06:46> <SADIQ ROSALES - Last Filed: 06/20/21 07:36> - History of Present Illness Time Seen by Provider: 06/20/21 02:05 Physician History: This is a 65-year-old white female patient of Dr. Castro who has multiple medical problems including atrial fibrillation status post pacemaker/defibrillator implantation, chronic anemia, patient on Eliquis, chronic low back pain on tizanidine and morphine, hypothyroidism, gastroeso phageal reflux disease, CHF, type 2 diabetes, coronary artery disease and history of ileostomy in the past. Patient states in the last 2 to 3 days she has had increasing shortness of breath. She stated that she last took a dose of morphine at 9 PM last evening. She also took her tizanidine few hours ago. She said she is feeling weak. There is been no active blood loss per her report. She has not noticed any type of bleeding. Patient denies chest pain. She has no significant abdominal pain. Her main complaints today are weakness and shortness of breath. Her last recorded hemoglobin is 8.5 in March 2021. Patient's room air oxygenation upon arrival to emergency department is 97 to 100%. Her respiratory rate is 15 to 19 breaths/min. Her heart rate is in the 80s. Her systolic blood pressures in the high 60s to low 70s. Patient's was recently diagnosed with Covid 19 infection. (SKYE ALVARENGA) Allergies/Adverse Reactions: adhesive Allergy (Mild, Verified 06/20/21 01:46) Blisters codeine [Codeine] Allergy (Mild, Verified 06/20/21 01:46) Nausea and Vomiting Sulfa (Sulfonamide Antibiotics) [Sulfa(Sulfonamide Antibiotics)] Allergy (Mild, Verified 06/20/21 01:46) Nausea and Vomiting iron Adverse Reaction (Intermediate, Verified 06/20/21 01:46) Nausea oxycodone [From Percocet] Adverse Reaction (Intermediate, Verified 06/20/21 01:46) Vomiting Home Medications: Tizanidine HCl 6 mg PO TID PRN PRN 11/10/17 [History] Furosemide [Lasix] 20 mg PO DAILY PRN PRN 03/09/18 [History] Promethazine HCl 25 mg [Phenergan 25 mg] 25 mg PO Q6H PRN PRN 01/14/19 [History] Levothyroxine Sodium [Synthroid] 300 mcg PO BID 04/29/19 [History] Nitroglycerin 0.4 mg SL Q5MIN PRN MR X 3 PRN 04/29/19 [History] Metoprolol Succinate 75 mg PO BID 09/20/19 [History] PANTOPRAZOLE 40 mg Tablet [Protonix 40MG Tablet] 1 tab PO DAILY 02/10/21 [History] Travel Risk - International Travel Have you traveled outside of the country in past 3 weeks: No - Coronavirus Screening Are you exhibiting any of the following symptoms?: No Close contact with a COVID-19 positive Pt in past 14-21 Days: Yes - Vaccine Status Have you recieved a Covid-19 vaccination: No <SKYE ALVARENGA - Last Filed: 06/20/21 06:46> - Review of Systems Constitutional: Weakness Eyes: No Symptoms Ears, Nose, & Throat: No Symptoms Respiratory: Dyspnea Cardiac: No Symptoms Abdominal/Gastrointestinal: No Symptoms Genitourinary Symptoms: No Symptoms Musculoskeletal: No Symptoms Skin: No Symptoms Neurological: No Symptoms Psychological: No Symptoms Endocrine: No Symptoms Hematologic/Lymphatic: No Symptoms Immunological/Allergic: No Symptoms All Other Systems: Reviewed and Negative <SKYE ALVARENGA - Last Filed: 06/20/21 06:46> - Past Medical History Pertinent Past Medical History: Yes Neurological History: Migraines, Stroke ENT History: No Pertinent History Cardiac History: Angina, Congestive Heart Failure, Coronary Artery Disease, Deep Vein Thrombosis, Other Respiratory History: Asthma Endocrine Medical History: Hypothyroidism, Thyroid Cancer Musculoskeletal History: Other GI Medical History: GERD, Hernia, Other History: Other Psycho-Social History: No Pertinent History Female Reproductive Disorders: Endometriosis Other Medical History: HX Cardiac Arrest, HX Thyroid Removal, HX Back pain. HX A-Fib. Pre diabetic - Past Surgical History Past Surgical History: Yes Neuro Surgical History: No Pertinent History Cardiac: Cardiac Catheterization, Internal Defibrillator, Pacemaker, Other Respiratory: No Pertinent History Gastrointestinal: Appendectomy, Cholecystectomy, Colon Resection, Hernia Repair, Other Genitourinary: No Pertinent History Musculoskeletal: Orthopedic Surgery Female Surgical History: Hysterectomy Other Surgical History: THYROID REMOVED and Parotid gland removed; 40% and 50% blockages found with last heart cath about 4 years ago. ankle surgery d/t break,ileostomy, CVL port removed and replaced, Port placed. HX ostomy repair due to blockage 09/02, back surgery and 4 I&D september and october and november 2017. 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 TLIF fused discs in back. OCTOBER 2018 CAROTIDECTOMY AND LYMPH NODE REMOVAL ON RIGHT SIDE. Right Parotid gland removed. "filter for blood clots 2018" - Social History Smoking Status: Never smoker Exposure to second hand smoke: No Alcohol Use: None Drug Use: none Patient Lives Alone: No Significant Family History: heart disease, cancer, diabetes <SKYE ALVARENGA - Last Filed: 06/20/21 06:46> - Physical Exam General Appearance: no apparent distress, alert, lethargy (Mild), obese Eye Exam: PERRL/EOMI, pale conjunctivae Ears, Nose, Throat Exam: hearing grossly normal (Mouth is dry), normal pharynx Neck Exam: normal inspection, non-tender, supple, full range of motion Respiratory Exam: normal breath sounds, lungs clear, respiratory distress, airway intact, No chest tenderness Cardiovascular/Chest Exam: irregular Abdominal/Gastrointestinal Exam: soft, normal bowel sounds, No tenderness Rectal Exam: not done Extremity Exam: non-tender, normal range of motion, normal inspection, no pedal edema, pelvis stable Neurologic Exam: alert, oriented x 3, cooperative, director of business applications II-XII nml as tested, normal mood/affect, sensation nml Skin Exam: dry, pale Lymphatic Exam: No adenopathy SpO2 Interpretation: normal O2 Delivery: Room Air <SKYE ALVARENGA - Last Filed: 06/20/21 06:46> - Nursing Vital Signs Nursing Vital Signs: Initial Vital Signs Temperature 97.3 F 06/20/21 01:47 Pulse Rate 80 06/20/21 01:47 Respiratory Rate 18 06/20/21 01:47 Blood Pressure 68/52 06/20/21 01:47 O2 Sat by Pulse Oximetry 99 06/20/21 01:47 Pain Scale Pain Intensity 0 - Course Nursing assessment & vital signs reviewed: Yes EKG Interpreted by Me: RATE (87), A-fib, NORMAL ST-T, Other (This patient's EKG shows A. fib/flutter and ventricular paced rhythm.) <SKYE ALVARENGA - Last Filed: 06/20/21 06:46> - Radiology Exams Chest X-ray Interpretation: Teleradiologist Report (No acute process identified. Lungs are unremarkable. No consolidation. Pleural spaces are unremarkable. Heart mediastinum unremarkable.) <SADIQ ROSALES - Last Filed: 06/20/21 07:36> Ordered Tests: Active Orders 24 hr Category Date Time Status Development Eng STAT Care 06/20/21 02:26 Active EKG-ER Only STAT Care 06/20/21 02:24 Active IV Insertion STAT Care 06/20/21 02:24 Active CHEST 1 VIEW (PORTABLE) Stat Exams 06/20/21 02:43 Taken BLOOD CULTURE Stat Lab 06/20/21 02:50 Received CBC W DIFF Stat Lab 06/20/21 02:45 Completed CMP Stat Lab 06/20/21 02:45 Completed COVID AG-BINAX NOW RAPID TEST Stat Lab 06/20/21 02:52 Completed CULTURE,URINE Stat Lab 06/20/21 03:46 Received INFLUENZA A+B SHANE Stat Lab 06/20/21 02:52 Completed Lactic Acid Stat Lab 06/20/21 02:44 Completed Lactic Acid Stat Lab 06/20/21 04:49 Completed MAGNESIUM Stat Lab 06/20/21 02:45 Completed [place] Screen Stat Lab 06/20/21 02:52 Completed NT PRO BNP Stat Lab 06/20/21 02:45 Completed T4 (Thyroxine) Stat Lab 06/20/21 02:52 Completed TROPONIN Q3H Lab 06/20/21 02:52 Completed TROPONIN Q3H Lab 06/20/21 05:54 Completed TROPONIN Q3H Lab 06/20/21 08:30 Ordered TROPONIN Q3H Lab 06/20/21 11:30 Ordered TROPONIN Q3H Lab 06/20/21 14:30 Ordered TSH [TSH, 3RD Generation] Stat Lab 06/20/21 02:52 Completed UA W/RFX UR CULTURE Stat Lab 06/20/21 03:46 Completed Transfer Order Routine Transfer 06/20/21 Ordered Medication Summary Discontinued Medications Generic Name Dose Route Start Last Admin Trade Name Brad PRN Reason Stop Dose Admin Furosemide 40 mg 06/20/21 06:42 06/20/21 06:51 Furosemide 40 Mg/4 Ml Vial IV 06/20/21 06:43 40 mg STAT ONE Administration Furosemide Confirm 06/20/21 06:50 Furosemide 40 Mg/4 Ml Vial Administered 06/20/21 06:51 Dose 40 mg .ROUTE .STK-MED ONE Sodium Chloride 1,000 mls @ 250 mls/hr 06/20/21 02:30 06/20/21 06:58 Sodium Chloride 0.9% 1000 Ml IV 07/20/21 02:29 Not Given .Q4H JUSTIN Sodium Chloride Confirm 06/20/21 02:33 Sodium Chloride 0.9% 1000 Ml Administered 06/20/21 02:34 Dose 1,000 mls @ ud .ROUTE .STK-MED ONE Sodium Chloride Confirm 06/20/21 06:55 Sodium Chloride 0.9% 1000 Ml Administered 06/20/21 06:56 Dose 1,000 mls @ ud .ROUTE .STK-MED ONE Ondansetron HCl 4 mg 06/20/21 02:43 06/20/21 02:44 Ondansetron Hcl 4 Mg/2 Ml Vial IV 06/20/21 02:44 4 mg STAT ONE Administration Ondansetron HCl Confirm 06/20/21 02:42 Ondansetron Hcl 4 Mg/2 Ml Vial Administered 06/20/21 02:43 Dose 4 mg .ROUTE .STK-MED ONE Lab/Rad Data: Laboratory Result Diagrams 06/20/21 02:45 06/20/21 02:45 Laboratory Results 06/20/21 06/20/21 06/20/21 Range/Units 05:54 04:49 03:46 WBC (4.0-10.5) K/mm3 RBC (4.1-5.4) M/mm3 Hgb (12.0-16.0) gm/dl Hct (35-47) % MCV (78-100) fl MCH (26-32) pg MCHC (32-36) g/dl RDW (11.5-14.0) % Plt Count (150-450) K/mm3 MPV (7.5-11.0) fl Gran % (36.0-66.0) % Eos # (Auto) (0-0.5) Absolute Lymphs (auto) (1.0-4.6) Absolute Monos (auto) (0.0-1.3) Lymphocytes % (24.0-44.0) % Monocytes % (0.0-12.0) % Eosinophils % (0.00-5.0) % Basophils % (0.0-0.4) % Absolute Granulocytes (1.4-6.9) Basophils # (0-0.4) Sodium (137-145) mmol/L Potassium (3.5-5.1) mmol/L Chloride (98-107) mmol/L Carbon Dioxide (22-30) mmol/L Anion Gap (5-15) MEQ/L BUN (7-17) mg/dL Creatinine (0.52-1.04) mg/dL Estimated GFR ML/MIN Glucose (74-106) mg/dL Lactic Acid 2.2 H (0.4-2.0) Calcium (8.4-10.2) mg/dL Magnesium (1.6-2.3) mg/dL Total Bilirubin (0.2-1.3) mg/dL AST (14-36) U/L ALT (0-35) U/L Alkaline Phosphatase (38-126) U/L Troponin I < 0.012 (0.000-0.034) ng/mL NT-Pro-B Natriuret Pep (0-900) pg/mL Serum Total Protein (6.3-8.2) g/dL Albumin (3.5-5.0) g/dL Thyroxine (T4) (5.53-10.96) ug/dL TSH 3rd Generation (0.47-4.68) mIU/L Urine Color ROSANNA (YELLOW) Urine Appearance SLIGHTLY CLOUDY (CLEAR) Urine pH 5.0 (5-6) Ur Specific [place] 1.023 (1.005-1.025) Urine Protein 100 (Negative) Urine Ketones TRACE (NEGATIVE) Urine Blood NEGATIVE (0-5) Hemal/ul Urine Nitrite NEGATIVE (NEGATIVE) Urine Bilirubin NEGATIVE (NEGATIVE) Urine Urobilinogen 2 (0-1) mg/dL Ur Leukocyte Esterase NEGATIVE (NEGATIVE) Urine WBC (Auto) 3-5 (0-5) /HPF Urine RBC (Auto) NONE (0-2) /HPF U Hyaline Cast (Auto) 3-5 (0-2) /LPF U Epithel Cells (Auto) NONE (FEW) /HPF Urine Bacteria (Auto) RARE (NEGATIVE) /HPF Urine Mucus (Auto) SLIGHT (NEGATIVE) /HPF Urine Culture Reflexed YES (NO) Urine Glucose NEGATIVE (NEGATIVE) mg/dL Monoscreen (Negative) Influenza Type A Ag (NEGATIVE) Influenza Type B Ag (NEGATIVE) SARS-CoV-2 Ag (Rapid) (NEGATIVE) 06/20/21 06/20/21 06/20/21 Range/Units 02:52 02:52 02:52 WBC (4.0-10.5) K/mm3 RBC (4.1-5.4) M/mm3 Hgb (12.0-16.0) gm/dl Hct (35-47) % MCV (78-100) fl MCH (26-32) pg MCHC (32-36) g/dl RDW (11.5-14.0) % Plt Count (150-450) K/mm3 MPV (7.5-11.0) fl Gran % (36.0-66.0) % Eos # (Auto) (0-0.5) Absolute Lymphs (auto) (1.0-4.6) Absolute Monos (auto) (0.0-1.3) Lymphocytes % (24.0-44.0) % Monocytes % (0.0-12.0) % Eosinophils % (0.00-5.0) % Basophils % (0.0-0.4) % Absolute Granulocytes (1.4-6.9) Basophils # (0-0.4) Sodium (137-145) mmol/L Potassium (3.5-5.1) mmol/L Chloride (98-107) mmol/L Carbon Dioxide (22-30) mmol/L Anion Gap (5-15) MEQ/L BUN (7-17) mg/dL Creatinine (0.52-1.04) mg/dL Estimated GFR ML/MIN Glucose (74-106) mg/dL Lactic Acid (0.4-2.0) Calcium (8.4-10.2) mg/dL Magnesium (1.6-2.3) mg/dL Total Bilirubin (0.2-1.3) mg/dL AST (14-36) U/L ALT (0-35) U/L Alkaline Phosphatase (38-126) U/L Troponin I (0.000-0.034) ng/mL NT-Pro-B Natriuret Pep (0-900) pg/mL Serum Total Protein (6.3-8.2) g/dL Albumin (3.5-5.0) g/dL Thyroxine (T4) 8.82 (5.53-10.96) ug/dL TSH 3rd Generation (0.47-4.68) mIU/L Urine Color (YELLOW) Urine Appearance (CLEAR) Urine pH (5-6) Ur Specific [place] (1.005-1.025) Urine Protein (Negative) Urine Ketones (NEGATIVE) Urine Blood (0-5) Hemal/ul Urine Nitrite (NEGATIVE) Urine Bilirubin (NEGATIVE) Urine Urobilinogen (0-1) mg/dL Ur Leukocyte Esterase (NEGATIVE) Urine WBC (Auto) (0-5) /HPF Urine RBC (Auto) (0-2) /HPF U Hyaline Cast (Auto) (0-2) /LPF U Epithel Cells (Auto) (FEW) /HPF Urine Bacteria (Auto) (NEGATIVE) /HPF Urine Mucus (Auto) (NEGATIVE) /HPF Urine Culture Reflexed (NO) Urine Glucose (NEGATIVE) mg/dL Monoscreen NEGATIVE (Negative) Influenza Type A Ag (NEGATIVE) Influenza Type B Ag (NEGATIVE) SARS-CoV-2 Ag (Rapid) NEGATIVE (NEGATIVE) 06/20/21 06/20/21 06/20/21 Range/Units 02:52 02:52 02:52 WBC (4.0-10.5) K/mm3 RBC (4.1-5.4) M/mm3 Hgb (12.0-16.0) gm/dl Hct (35-47) % MCV (78-100) fl MCH (26-32) pg MCHC (32-36) g/dl RDW (11.5-14.0) % Plt Count (150-450) K/mm3 MPV (7.5-11.0) fl Gran % (36.0-66.0) % Eos # (Auto) (0-0.5) Absolute Lymphs (auto) (1.0-4.6) Absolute Monos (auto) (0.0-1.3) Lymphocytes % (24.0-44.0) % Monocytes % (0.0-12.0) % Eosinophils % (0.00-5.0) % Basophils % (0.0-0.4) % Absolute Granulocytes (1.4-6.9) Basophils # (0-0.4) Sodium (137-145) mmol/L Potassium (3.5-5.1) mmol/L Chloride (98-107) mmol/L Carbon Dioxide (22-30) mmol/L Anion Gap (5-15) MEQ/L BUN (7-17) mg/dL Creatinine (0.52-1.04) mg/dL Estimated GFR ML/MIN Glucose (74-106) mg/dL Lactic Acid (0.4-2.0) Calcium (8.4-10.2) mg/dL Magnesium (1.6-2.3) mg/dL Total Bilirubin (0.2-1.3) mg/dL AST (14-36) U/L ALT (0-35) U/L Alkaline Phosphatase (38-126) U/L Troponin I 0.014 (0.000-0.034) ng/mL NT-Pro-B Natriuret Pep (0-900) pg/mL Serum Total Protein (6.3-8.2) g/dL Albumin (3.5-5.0) g/dL Thyroxine (T4) (5.53-10.96) ug/dL TSH 3rd Generation 166.000 H (0.47-4.68) mIU/L Urine Color (YELLOW) Urine Appearance (CLEAR) Urine pH (5-6) Ur Specific [place] (1.005-1.025) Urine Protein (Negative) Urine Ketones (NEGATIVE) Urine Blood (0-5) Hemal/ul Urine Nitrite (NEGATIVE) Urine Bilirubin (NEGATIVE) Urine Urobilinogen (0-1) mg/dL Ur Leukocyte Esterase (NEGATIVE) Urine WBC (Auto) (0-5) /HPF Urine RBC (Auto) (0-2) /HPF U Hyaline Cast (Auto) (0-2) /LPF U Epithel Cells (Auto) (FEW) /HPF Urine Bacteria (Auto) (NEGATIVE) /HPF Urine Mucus (Auto) (NEGATIVE) /HPF Urine Culture Reflexed (NO) Urine Glucose (NEGATIVE) mg/dL Monoscreen (Negative) Influenza Type A Ag NEGATIVE (NEGATIVE) Influenza Type B Ag NEGATIVE (NEGATIVE) SARS-CoV-2 Ag (Rapid) (NEGATIVE) 06/20/21 06/20/21 06/20/21 Range/Units 02:45 02:45 02:44 WBC 6.6 (4.0-10.5) K/mm3 RBC 4.66 (4.1-5.4) M/mm3 Hgb 12.8 (12.0-16.0) gm/dl Hct 39.7 (35-47) % MCV 85.2 (78-100) fl MCH 27.5 (26-32) pg MCHC 32.2 (32-36) g/dl RDW 14.8 H (11.5-14.0) % Plt Count 309 (150-450) K/mm3 MPV 10.7 (7.5-11.0) fl Gran % 68.8 H (36.0-66.0) % Eos # (Auto) 0.04 (0-0.5) Absolute Lymphs (auto) 1.58 (1.0-4.6) Absolute Monos (auto) 0.40 (0.0-1.3) Lymphocytes % 24.0 (24.0-44.0) % Monocytes % 6.1 (0.0-12.0) % Eosinophils % 0.6 (0.00-5.0) % Basophils % 0.5 (0.0-0.4) % Absolute Granulocytes 4.53 (1.4-6.9) Basophils # 0.03 (0-0.4) Sodium 135 L (137-145) mmol/L Potassium 4.1 (3.5-5.1) mmol/L Chloride 101 (98-107) mmol/L Carbon Dioxide 19 L (22-30) mmol/L Anion Gap 19.4 H (5-15) MEQ/L BUN 63 H (7-17) mg/dL Creatinine 2.68 H (0.52-1.04) mg/dL Estimated GFR 19.0 ML/MIN Glucose 123 H (74-106) mg/dL Lactic Acid 2.8 H (0.4-2.0) Calcium 9.6 (8.4-10.2) mg/dL Magnesium 1.9 (1.6-2.3) mg/dL Total Bilirubin 0.60 (0.2-1.3) mg/dL AST 41 H (14-36) U/L ALT 25 (0-35) U/L Alkaline Phosphatase 141 H (38-126) U/L Troponin I (0.000-0.034) ng/mL NT-Pro-B Natriuret Pep 5280 H (0-900) pg/mL Serum Total Protein 8.0 (6.3-8.2) g/dL Albumin 4.4 (3.5-5.0) g/dL Thyroxine (T4) (5.53-10.96) ug/dL TSH 3rd Generation (0.47-4.68) mIU/L Urine Color (YELLOW) Urine Appearance (CLEAR) Urine pH (5-6) Ur Specific [place] (1.005-1.025) Urine Protein (Negative) Urine Ketones (NEGATIVE) Urine Blood (0-5) Hemal/ul Urine Nitrite (NEGATIVE) Urine Bilirubin (NEGATIVE) Urine Urobilinogen (0-1) mg/dL Ur Leukocyte Esterase (NEGATIVE) Urine WBC (Auto) (0-5) /HPF Urine RBC (Auto) (0-2) /HPF U Hyaline Cast (Auto) (0-2) /LPF U Epithel Cells (Auto) (FEW) /HPF Urine Bacteria (Auto) (NEGATIVE) /HPF Urine Mucus (Auto) (NEGATIVE) /HPF Urine Culture Reflexed (NO) Urine Glucose (NEGATIVE) mg/dL Monoscreen (Negative) Influenza Type A Ag (NEGATIVE) Influenza Type B Ag (NEGATIVE) SARS-CoV-2 Ag (Rapid) (NEGATIVE) - Progress Progress: improved Air Movement: good Blood Culture(s) Obtained: Yes Counseled pt/family regarding: lab results, diagnosis, rad results <SKYE ALVARENGA - Last Filed: 06/20/21 06:46> <SADIQ ROSALES - Last Filed: 06/20/21 07:36> - Progress Progress Note: 06/20/21 06:47 Chest x-ray shows no acute cardiopulmonary process. 06/20/21 06:51 At 06 40 5 AM I called and left a message with Dr. Castro. He did not answer and has not yet called back. I am going to transfer care of this patient to Dr. Sadiq Rosales. I am going to have him make final disposition (SKYE ALVARENGA) Patient endorsed to Dr. Rosales at approximately 7 AM. Patient to be admitted however still awaiting return call from primary. Dr. Castro covering primary this morning. I spoke to Dr. Castro. Dr. Castro accepts admission. It appears patient is experiencing an episode of hypothyroidism. Patient appears to be on Synthroid but it is unclear whether or not she is taking her Synthroid as recommended. BNP elevated. Chest x-ray reveals no acute process. BUN/creatinine elevated. Patient has a history of chronic renal sufficiency. Patient currently experiencing acute on chronic renal insufficiency. Lactic acid elevated 2.8. However repeat is 2.2. Lactic acid trending downward. Dr. Alvarenga has been treating patient with a combination of IV fluids and Lasix. Patient appears to be responding well. Patient is Covid negative. Patient will be admitted to Dr. Castro service. Plan of care discussed with patient. She agrees to admission to [facility] for further evaluation and treatment. Patient voices no other complaints or concerns at this time. Portions of this note were created with voice recognition technology. There may be grammatical, spelling, punctuation or sound alike errors 06/20/21 07:26 (SADIQ ROSALES) - Departure Departure Disposition: Home Critical Care Time: No Critical Care Time(excluding separately billable procedures): Critical 30-74 mins (30) <SKYE ALVARENGA - Last Filed: 06/20/21 06:46> - Departure Departure Disposition: Observation <SADIQ ROSALES - Last Filed: 06/20/21 07:36> - Departure Clinical Impression: Acute on chronic renal insufficiency, Hypotension, Hypothyroidism, CHF (con gestive heart failure), Elevated brain natriuretic peptide (BNP) level, Shortness of breath, Generalized weakness, Elevated lactic acid level, Hyponatremia Condition: Stable Referrals: WAQAR CASTRO [Primary Care Provider] - Follow up/PCP as directed Instructions: Heart Failure
[2021-06-20] MEDS ORDERED: Sodium Chloride 0.9% 1000 ML 1,000 ML ONE ×2 (02:33→06:55)
[2021-06-20] MEDS ORDERED: Zofran 4 MG/2 ML VIAL ONE ×2 (02:42→07:39)
[2021-06-20] MEDS ORDERED: Zofran 4 MG/2 ML VIAL IV ONE ×2 (02:43→07:38)
[2021-06-20] MEDS: Sodium Chloride 0.9% 1000 ML 1,000 ML IV SCH ×3 (02:45→23:07)
[2021-06-20 02:58] LABS: Absolute Neutrophil Ct (ANC) 4.53 (1.4-6.9); Basophil (Absolute #) 0.03 (0-0.4); Eosinophil % 0.6 % (0.00-5.0); Eosinophil (Absolute #) 0.04 (0-0.5); Hematocrit 39.7 % (35-47); Hemoglobin 12.8 gm/dl (12.0-16.0); Lymphocyte (Absolute #) 1.58 (1.0-4.6); Mean Cell Volume 85.2 fl (78-100); Mean Corpuscular Hemoglobin 27.5 pg (26-32); Mean Corpuscular Hgb Concent. 32.2 g/dl (32-36); Mean Platelet Volume 10.7 fl (7.5-11.0); Monocytes % 6.1 % (0.0-12.0); Neutrophil % 68.8 % (36.0-66.0); Platelet Count 309 K/mm3 (150-450); Red Blood Count 4.66 M/mm3 (4.1-5.4); Red Cell Distribution Width 14.8 % (11.5-14.0); White Blood Count 6.6 K/mm3 (4.0-10.5)
[2021-06-20 03:20] LABS: INFLUENZA A NEGATIVE (NEGATIVE); INFLUENZA B NEGATIVE (NEGATIVE)
[2021-06-20 03:21] LABS: COVID AG -BINAX NOW RAPID TEST NEGATIVE (NEGATIVE)
[2021-06-20 03:27] LABS: ALBUMIN 4.4 g/dL (3.5-5.0); ANION GAP 19.4 MEQ/L (5-15); BILIRUBIN,TOTAL 0.6 mg/dL (0.2-1.3); Calcium 9.6 mg/dL (8.4-10.2); Creatinine 1 2.68 mg/dL (0.52-1.04); MAGNESIUM 1.9 mg/dL (1.6-2.3); Potassium 4.1 mmol/L (3.5-5.1)
[2021-06-20 04:08] LABS: Appearance SLIGHTLY CLOUDY (CLEAR); Bacteria RARE /HPF (NEGATIVE); Bilirubin NEGATIVE (NEGATIVE); Blood NEGATIVE Ery/ul (0-5); Glucose NEGATIVE (NEGATIVE); Ketones TRACE (NEGATIVE); Leukocyte Esterase NEGATIVE (NEGATIVE); Mucus SLIGHT /HPF (NEGATIVE); Nitrite NEGATIVE (NEGATIVE); Protein,Urine Dip 100 (Negative); Specific Gravity 1.023 (1.005-1.025); Urobilinogen 2 mg/dL (0-1)
[2021-06-20] MEDS ORDERED: Lasix 40 MG/4 ML IV ONE (06:42)
[2021-06-20] MEDS ORDERED: Lasix 40 MG/4 ML ONE (06:50)
--- NOTE | 2021-06-20 08:56 | XRAY ---
Indication: Short of breath, nausea, and vomiting. Suspect Covid 19. Comparison: February 10, 2021. Portable chest remains clear. Heart not enlarged again with left AICD and right Port-A-Cath. Bony thorax intact again with mild osteopenia and distal right clavicle resection. Epidural stimulator leads have been removed in the interim. Impression: Nonacute chest with chronic features. Comment: Preliminary interpretation made by [facility]. No critical discrepancy.
[2021-06-20] MEDS ORDERED: TIZANIDINE HCL 2 MG PO PRN (10:26)
[2021-06-20] MEDS ORDERED: Nitrostat 0.4 MG Tablet SL PRN (10:26)
[2021-06-20] MEDS ORDERED: CORTISONE 1% CREAM TP PRN (10:26)
[2021-06-20] MEDS ORDERED: LASIX 20 MG PO PRN (10:26)
[2021-06-20] MEDS ORDERED: Toprol Xl 50 MG PO SCH (11:00)
[2021-06-20] MEDS ORDERED: Toprol-Xl 25MG Tablets PO SCH (11:00)
[2021-06-20] MEDS: ELIQUIS 2.5 MG TABLET PO SCH ×2 (11:02→21:26)
[2021-06-20] MEDS: Protonix 40MG Tablet PO SCH (11:03)
[2021-06-20] MEDS: SYNTHROID 150 MCG PO SCH ×2 (11:03→21:26)
[2021-06-20] MEDS: PHENERGAN 25 MG PO PRN (11:38)
--- NOTE | 2021-06-20 13:22 | PCM.HP ---
History of Present Illness - Chief Complaint Chief Complaint: hypothyroidism, SABINA, elevated BNP, SOB, generalized weakness History of Present Illness: is a 65 year old female pt of Dr. Mccallum with CHF, DMII, CAD, CRF, hypothyroidism, anemia, afib, lbp who was admtited through [facility] 1d of weakness and SOB. She was found to have worsened creatinine and a TSH of 166. Her bp was 68/52. Pt was ill up until a week ago - her was dx with covid a few weeks ago. She had PERRY, sore throat, adn fever to 103. Denies cough. She has been adjusting her synthroid with DR. Nice and has had difficulty adjusting it. She called Dr. Duarte yesterday due to chest pain (mid sternal rad to R upper chest, 7-12/26, sharp pain, with nausea). He was referring her to an aircraft stress analyst. Pt is feeling better now, but did have an episode of dry heaves during our interview. - Review of Systems Constitutional: Fever (resolved 1 week ago), Weakness Ears, Nose, & Throat: Throat Pain (resolved 1 week ago) Respiratory: Short Of Breath Cardiac: Chest Pain, Edema Abdominal/Gastrointestinal: Nausea, Vomiting, Diarrhea Musculoskeletal: Arthralgias All Other Systems: Reviewed and Negative Medications & Allergies Home Medications: Home Medication List Tizanidine HCl 6 mg PO TID PRN PRN 11/10/17 [History Confirmed 06/20/21] Furosemide [Lasix] 20 mg PO DAILY PRN PRN 03/09/18 [History Confirmed 06/20/21] Promethazine HCl 25 mg [Phenergan 25 mg] 25 mg PO Q6H PRN PRN 01/14/19 [History Confirmed 06/20/21] Levothyroxine Sodium [Synthroid] 300 mcg PO BID 04/29/19 [History Confirmed 06/20/21] Nitroglycerin 0.4 mg SL Q5MIN PRN MR X 3 PRN 04/29/19 [History Confirmed 06/20/21] Metoprolol Succinate 75 mg PO BID 09/20/19 [History Confirmed 06/20/21] Apixaban [Eliquis] 5 mg PO BID 1 Days 01/03/20 [Rx Confirmed 06/20/21] PANTOPRAZOLE 40 mg Tablet [Protonix 40MG Tablet] 1 tab PO DAILY 02/10/21 [History Confirmed 06/20/21] Hydrocortisone 1% Cream [Cortisone 1% Cream] 1 gm TP TID PRN PRN 06/20/21 [History Confirmed 06/20/21] Allergies/Adverse Reactions: Allergies Allergy/AdvReac Type Severity Reaction Status Date / Time adhesive Allergy Mild Blisters Verified 06/20/21 01:46 codeine [Codeine] Allergy Mild Nausea and Verified 06/20/21 01:46 Vomiting Sulfa (Sulfonamide Allergy Mild Nausea and Verified 06/20/21 01:46 Antibiotics) Vomiting [Sulfa(Sulfonamide Antibiotics)] iron AdvReac Intermediate Nausea Verified 06/20/21 01:46 oxycodone [From Percocet] AdvReac Intermediate Vomiting Verified 06/20/21 01:46 - Past Medical History Past Medical History: Yes Neurological History: Migraines, Stroke ENT History: No Pertinent History Cardiac History: Angina, Arrhythmia, Congestive Heart Failure, Coronary Artery Disease, Deep Vein Thrombosis, Other Respiratory History: Asthma Endocrine Medical History: Hypothyroidism, Thyroid Cancer Musculoskelatal History: Other GI Medical History: GERD, Hernia, Other History: Renal Disease, Other Pyscho-Social History: No Pertinent History Reproductive Disorders: Endometriosis Comment: HX Cardiac Arrest, HX Thyroid Removal, HX Back pain. HX A-Fib. Pre diabetic - Female History Are you now?: No - Past Surgical History Past Surgical History: Yes Neuro Surgical History: No Pertinent History Cardiac History: Cardiac Catheterization, Internal Defibrillator, Pacemaker, Ot her Respiratory Surgery: No Pertinent History GI Surgical History: Appendectomy, Cholecystectomy, Colon Resection, Hernia Repair, Other Genitourinary Surgical Hx: No Pertinent History Musculskeletal Surgical Hx: Orthopedic Surgery Female Surgical History: Hysterectomy Other Surgical History: THYROID REMOVED and Parotid gland removed; 40% and 50% blockages found with last heart cath about 4 years ago. ankle surgery d/t break,ileostomy, CVL port removed and replaced, Port placed. HX ostomy repair due to blockage 09/02, back surgery and 4 I&D september and october and november 2017. 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 TLIF fused discs in back. OCTOBER 2018 CAROTIDECTOMY AND LYMPH NODE REMOVAL ON RIGHT SIDE. Right Parotid gland removed. "filter for blood clots 2018" - Social History Smoking Status: Never smoker Exposure to second hand smoke: No Alcohol: None Drug Use: none Significant Family History: heart disease, cancer, diabetes - Physical Exam Vital Signs: Vital Signs - 24 hr Temp Pulse Resp BP Pulse Ox 06/20/21 11:41 97.5 F 81 18 103/57 97 06/20/21 08:08 97.6 F 80 20 84/54 96 06/20/21 07:08 80 116/74 100 06/20/21 06:10 80 104/74 97 06/20/21 05:00 80 14 107/66 96 06/20/21 04:09 80 20 65/40 93 L 06/20/21 03:06 80 20 67/40 95 06/20/21 02:44 80 19 69/46 96 06/20/21 01:47 97.3 F 80 20 68/52 99 General Appearance: mild distress (with nausea, otherwise nad), alert Neurologic Exam: cooperative Eye Exam: eyes nml inspection Ears, Nose, Throat Exam: moist mucous membranes Neck Exam: normal inspection, non-tender, No lymphadenopathy Respiratory Exam: normal breath sounds, lungs clear, No crackles/rales, No rhonchi, No wheezing Cardiovascular Exam: regular rate/rhythm, normal heart sounds, No murmur Gastrointestinal/Abdomen Exam: soft, No normal bowel sounds (hypoactive but present), No tenderness, No distention, No mass, No guarding, No rebound Back Exam: normal inspection, No rash Extremity Exam: normal inspection, No pedal edema, No swelling Skin Exam: normal color, warm, dry, No rash Results - Labs Lab/Micro Results: Lab Results-Last 24 Hours 06/20/21 06/20/21 06/20/21 Range/Units 02:44 02:45 02:45 WBC 6.6 (4.0-10.5) K/mm3 RBC 4.66 (4.1-5.4) M/mm3 Hgb 12.8 (12.0-16.0) gm/dl Hct 39.7 (35-47) % MCV 85.2 (78-100) fl MCH 27.5 (26-32) pg MCHC 32.2 (32-36) g/dl RDW 14.8 H (11.5-14.0) % Plt Count 309 (150-450) K/mm3 MPV 10.7 (7.5-11.0) fl Gran % 68.8 H (36.0-66.0) % Eos # (Auto) 0.04 (0-0.5) Absolute Lymphs (auto) 1.58 (1.0-4.6) Absolute Monos (auto) 0.40 (0.0-1.3) Lymphocytes % 24.0 (24.0-44.0) % Monocytes % 6.1 (0.0-12.0) % Eosinophils % 0.6 (0.00-5.0) % Basophils % 0.5 (0.0-0.4) % Absolute Granulocytes 4.53 (1.4-6.9) Basophils # 0.03 (0-0.4) Sodium 135 L (137-145) mmol/L Potassium 4.1 (3.5-5.1) mmol/L Chloride 101 (98-107) mmol/L Carbon Dioxide 19 L (22-30) mmol/L Anion Gap 19.4 H (5-15) MEQ/L BUN 63 H (7-17) mg/dL Creatinine 2.68 H (0.52-1.04) mg/dL Estimated GFR 19.0 ML/MIN Glucose 123 H (74-106) mg/dL Lactic Acid 2.8 H (0.4-2.0) Calcium 9.6 (8.4-10.2) mg/dL Magnesium 1.9 (1.6-2.3) mg/dL Total Bilirubin 0.60 (0.2-1.3) mg/dL AST 41 H (14-36) U/L ALT 25 (0-35) U/L Alkaline Phosphatase 141 H (38-126) U/L Troponin I (0.000-0.034) ng/mL NT-Pro-B Natriuret Pep 5280 H (0-900) pg/mL Serum Total Protein 8.0 (6.3-8.2) g/dL Albumin 4.4 (3.5-5.0) g/dL Thyroxine (T4) (5.53-10.96) ug/dL TSH 3rd Generation (0.47-4.68) mIU/L Urine Color (YELLOW) Urine Appearance (CLEAR) Urine pH (5-6) Ur Specific [place] (1.005-1.025) Urine Protein (Negative) Urine Ketones (NEGATIVE) Urine Blood (0-5) Hemal/ul Urine Nitrite (NEGATIVE) Urine Bilirubin (NEGATIVE) Urine Urobilinogen (0-1) mg/dL Ur Leukocyte Esterase (NEGATIVE) Urine WBC (Auto) (0-5) /HPF Urine RBC (Auto) (0-2) /HPF U Hyaline Cast (Auto) (0-2) /LPF U Epithel Cells (Auto) (FEW) /HPF Urine Bacteria (Auto) (NEGATIVE) /HPF Urine Mucus (Auto) (NEGATIVE) /HPF Urine Culture Reflexed (NO) Urine Glucose (NEGATIVE) mg/dL Monoscreen (Negative) Influenza Type A Ag (NEGATIVE) Influenza Type B Ag (NEGATIVE) SARS-CoV-2 Ag (Rapid) (NEGATIVE) 06/20/21 06/20/21 06/20/21 Range/Units 02:52 02:52 02:52 WBC (4.0-10.5) K/mm3 RBC (4.1-5.4) M/mm3 Hgb (12.0-16.0) gm/dl Hct (35-47) % MCV (78-100) fl MCH (26-32) pg MCHC (32-36) g/dl RDW (11.5-14.0) % Plt Count (150-450) K/mm3 MPV (7.5-11.0) fl Gran % (36.0-66.0) % Eos # (Auto) (0-0.5) Absolute Lymphs (auto) (1.0-4.6) Absolute Monos (auto) (0.0-1.3) Lymphocytes % (24.0-44.0) % Monocytes % (0.0-12.0) % Eosinophils % (0.00-5.0) % Basophils % (0.0-0.4) % Absolute Granulocytes (1.4-6.9) Basophils # (0-0.4) Sodium (137-145) mmol/L Potassium (3.5-5.1) mmol/L Chloride (98-107) mmol/L Carbon Dioxide (22-30) mmol/L Anion Gap (5-15) MEQ/L BUN (7-17) mg/dL Creatinine (0.52-1.04) mg/dL Estimated GFR ML/MIN Glucose (74-106) mg/dL Lactic Acid (0.4-2.0) Calcium (8.4-10.2) mg/dL Magnesium (1.6-2.3) mg/dL Total Bilirubin (0.2-1.3) mg/dL AST (14-36) U/L ALT (0-35) U/L Alkaline Phosphatase (38-126) U/L Troponin I 0.014 (0.000-0.034) ng/mL NT-Pro-B Natriuret Pep (0-900) pg/mL Serum Total Protein (6.3-8.2) g/dL Albumin (3.5-5.0) g/dL Thyroxine (T4) (5.53-10.96) ug/dL TSH 3rd Generation 166.000 H (0.47-4.68) mIU/L Urine Color (YELLOW) Urine Appearance (CLEAR) Urine pH (5-6) Ur Specific [place] (1.005-1.025) Urine Protein (Negative) Urine Ketones (NEGATIVE) Urine Blood (0-5) Hemal/ul Urine Nitrite (NEGATIVE) Urine Bilirubin (NEGATIVE) Urine Urobilinogen (0-1) mg/dL Ur Leukocyte Esterase (NEGATIVE) Urine WBC (Auto) (0-5) /HPF Urine RBC (Auto) (0-2) /HPF U Hyaline Cast (Auto) (0-2) /LPF U Epithel Cells (Auto) (FEW) /HPF Urine Bacteria (Auto) (NEGATIVE) /HPF Urine Mucus (Auto) (NEGATIVE) /HPF Urine Culture Reflexed (NO) Urine Glucose (NEGATIVE) mg/dL Monoscreen (Negative) Influenza Type A Ag NEGATIVE (NEGATIVE) Influenza Type B Ag NEGATIVE (NEGATIVE) SARS-CoV-2 Ag (Rapid) (NEGATIVE) 06/20/21 06/20/21 06/20/21 Range/Units 02:52 02:52 02:52 WBC (4.0-10.5) K/mm3 RBC (4.1-5.4) M/mm3 Hgb (12.0-16.0) gm/dl Hct (35-47) % MCV (78-100) fl MCH (26-32) pg MCHC (32-36) g/dl RDW (11.5-14.0) % Plt Count (150-450) K/mm3 MPV (7.5-11.0) fl Gran % (36.0-66.0) % Eos # (Auto) (0-0.5) Absolute Lymphs (auto) (1.0-4.6) Absolute Monos (auto) (0.0-1.3) Lymphocytes % (24.0-44.0) % Monocytes % (0.0-12.0) % Eosinophils % (0.00-5.0) % Basophils % (0.0-0.4) % Absolute Granulocytes (1.4-6.9) Basophils # (0-0.4) Sodium (137-145) mmol/L Potassium (3.5-5.1) mmol/L Chloride (98-107) mmol/L Carbon Dioxide (22-30) mmol/L Anion Gap (5-15) MEQ/L BUN (7-17) mg/dL Creatinine (0.52-1.04) mg/dL Estimated GFR ML/MIN Glucose (74-106) mg/dL Lactic Acid (0.4-2.0) Calcium (8.4-10.2) mg/dL Magnesium (1.6-2.3) mg/dL Total Bilirubin (0.2-1.3) mg/dL AST (14-36) U/L ALT (0-35) U/L Alkaline Phosphatase (38-126) U/L Troponin I (0.000-0.034) ng/mL NT-Pro-B Natriuret Pep (0-900) pg/mL Serum Total Protein (6.3-8.2) g/dL Albumin (3.5-5.0) g/dL Thyroxine (T4) 8.82 (5.53-10.96) ug/dL TSH 3rd Generation (0.47-4.68) mIU/L Urine Color (YELLOW) Urine Appearance (CLEAR) Urine pH (5-6) Ur Specific [place] (1.005-1.025) Urine Protein (Negative) Urine Ketones (NEGATIVE) Urine Blood (0-5) Hemal/ul Urine Nitrite (NEGATIVE) Urine Bilirubin (NEGATIVE) Urine Urobilinogen (0-1) mg/dL Ur Leukocyte Esterase (NEGATIVE) Urine WBC (Auto) (0-5) /HPF Urine RBC (Auto) (0-2) /HPF U Hyaline Cast (Auto) (0-2) /LPF U Epithel Cells (Auto) (FEW) /HPF Urine Bacteria (Auto) (NEGATIVE) /HPF Urine Mucus (Auto) (NEGATIVE) /HPF Urine Culture Reflexed (NO) Urine Glucose (NEGATIVE) mg/dL Monoscreen NEGATIVE (Negative) Influenza Type A Ag (NEGATIVE) Influenza Type B Ag (NEGATIVE) SARS-CoV-2 Ag (Rapid) NEGATIVE (NEGATIVE) 06/20/21 06/20/21 06/20/21 Range/Units 03:46 04:49 05:54 WBC (4.0-10.5) K/mm3 RBC (4.1-5.4) M/mm3 Hgb (12.0-16.0) gm/dl Hct (35-47) % MCV (78-100) fl MCH (26-32) pg MCHC (32-36) g/dl RDW (11.5-14.0) % Plt Count (150-450) K/mm3 MPV (7.5-11.0) fl Gran % (36.0-66.0) % Eos # (Auto) (0-0.5) Absolute Lymphs (auto) (1.0-4.6) Absolute Monos (auto) (0.0-1.3) Lymphocytes % (24.0-44.0) % Monocytes % (0.0-12.0) % Eosinophils % (0.00-5.0) % Basophils % (0.0-0.4) % Absolute Granulocytes (1.4-6.9) Basophils # (0-0.4) Sodium (137-145) mmol/L Potassium (3.5-5.1) mmol/L Chloride (98-107) mmol/L Carbon Dioxide (22-30) mmol/L Anion Gap (5-15) MEQ/L BUN (7-17) mg/dL Creatinine (0.52-1.04) mg/dL Estimated GFR ML/MIN Glucose (74-106) mg/dL Lactic Acid 2.2 H (0.4-2.0) Calcium (8.4-10.2) mg/dL Magnesium (1.6-2.3) mg/dL Total Bilirubin (0.2-1.3) mg/dL AST (14-36) U/L ALT (0-35) U/L Alkaline Phosphatase (38-126) U/L Troponin I < 0.012 (0.000-0.034) ng/mL NT-Pro-B Natriuret Pep (0-900) pg/mL Serum Total Protein (6.3-8.2) g/dL Albumin (3.5-5.0) g/dL Thyroxine (T4) (5.53-10.96) ug/dL TSH 3rd Generation (0.47-4.68) mIU/L Urine Color [place] (YELLOW) Urine Appearance SLIGHTLY CLOUDY (CLEAR) Urine pH 5.0 (5-6) Ur Specific [place] 1.023 (1.005-1.025) Urine Protein 100 (Negative) Urine Ketones TRACE (NEGATIVE) Urine Blood NEGATIVE (0-5) Hemal/ul Urine Nitrite NEGATIVE (NEGATIVE) Urine Bilirubin NEGATIVE (NEGATIVE) Urine Urobilinogen 2 (0-1) mg/dL Ur Leukocyte Esterase NEGATIVE (NEGATIVE) Urine WBC (Auto) 3-5 (0-5) /HPF Urine RBC (Auto) NONE (0-2) /HPF U Hyaline Cast (Auto) 3-5 (0-2) /LPF U Epithel Cells (Auto) NONE (FEW) /HPF Urine Bacteria (Auto) RARE (NEGATIVE) /HPF Urine Mucus (Auto) SLIGHT (NEGATIVE) /HPF Urine Culture Reflexed YES (NO) Urine Glucose NEGATIVE (NEGATIVE) mg/dL Monoscreen (Negative) Influenza Type A Ag (NEGATIVE) Influenza Type B Ag (NEGATIVE) SARS-CoV-2 Ag (Rapid) (NEGATIVE) 06/20/21 06/20/21 Range/Units 07:55 11:54 WBC (4.0-10.5) K/mm3 RBC (4.1-5.4) M/mm3 Hgb (12.0-16.0) gm/dl Hct (35-47) % MCV (78-100) fl MCH (26-32) pg MCHC (32-36) g/dl RDW (11.5-14.0) % Plt Count (150-450) K/mm3 MPV (7.5-11.0) fl Gran % (36.0-66.0) % Eos # (Auto) (0-0.5) Absolute Lymphs (auto) (1.0-4.6) Absolute Monos (auto) (0.0-1.3) Lymphocytes % (24.0-44.0) % Monocytes % (0.0-12.0) % Eosinophils % (0.00-5.0) % Basophils % (0.0-0.4) % Absolute Granulocytes (1.4-6.9) Basophils # (0-0.4) Sodium (137-145) mmol/L Potassium (3.5-5.1) mmol/L Chloride (98-107) mmol/L Carbon Dioxide (22-30) mmol/L Anion Gap (5-15) MEQ/L BUN (7-17) mg/dL Creatinine (0.52-1.04) mg/dL Estimated GFR ML/MIN Glucose (74-106) mg/dL Lactic Acid (0.4-2.0) Calcium (8.4-10.2) mg/dL Magnesium (1.6-2.3) mg/dL Total Bilirubin (0.2-1.3) mg/dL AST (14-36) U/L ALT (0-35) U/L Alkaline Phosphatase (38-126) U/L Troponin I < 0.012 < 0.012 (0.000-0.034) ng/mL NT-Pro-B Natriuret Pep (0-900) pg/mL Serum Total Protein (6.3-8.2) g/dL Albumin (3.5-5.0) g/dL Thyroxine (T4) (5.53-10.96) ug/dL TSH 3rd Generation (0.47-4.68) mIU/L Urine Color (YELLOW) Urine Appearance (CLEAR) Urine pH (5-6) Ur Specific [place] (1.005-1.025) Urine Protein (Negative) Urine Ketones (NEGATIVE) Urine Blood (0-5) Hemal/ul Urine Nitrite (NEGATIVE) Urine Bilirubin (NEGATIVE) Urine Urobilinogen (0-1) mg/dL Ur Leukocyte Esterase (NEGATIVE) Urine WBC (Auto) (0-5) /HPF Urine RBC (Auto) (0-2) /HPF U Hyaline Cast (Auto) (0-2) /LPF U Epithel Cells (Auto) (FEW) /HPF Urine Bacteria (Auto) (NEGATIVE) /HPF Urine Mucus (Auto) (NEGATIVE) /HPF Urine Culture Reflexed (NO) Urine Glucose (NEGATIVE) mg/dL Monoscreen (Negative) Influenza Type A Ag (NEGATIVE) Influenza Type B Ag (NEGATIVE) SARS-CoV-2 Ag (Rapid) (NEGATIVE) - Radiology Impressions Radiology Exams & Impressions: Radiology Procedures Category Date Time Status CHEST 1 VIEW (PORTABLE) Stat Exams 06/20/21 02:43 Completed Assessment/Plan (1) Hypothyroidism Current Visit: Yes Status: Chronic Qualifiers: Assessment & Plan: I will be speakign with Dr. Nice today. Code(s): E03.9 - HYPOTHYROIDISM, UNSPECIFIED (2) Acute on chronic renal insufficiency Current Visit: Yes Status: Acute Code(s): N28.9 - DISORDER OF KIDNEY AND URETER, UNSPECIFIED; N18.9 - CHRONIC KIDNEY DISEASE, UNSPECIFIED (3) CHF (congestive heart failure) Current Visit: Yes Status: Acute Onset Date: ~03/09/18 Qualifiers: Heart failure chronicity: acute on chronic Assessment & Plan: consulting [facility] Code(s): I50.9 - HEART FAILURE, UNSPECIFIED (4) Elevated brain natriuretic peptide (BNP) level Current Visit: Yes Status: Acute Code(s): R79.89 - OTHER SPECIFIED ABNORMAL FINDINGS OF BLOOD CHEMISTRY (5) Elevated lactic acid level Current Visit: Yes Status: Acute Code(s): R79.89 - OTHER SPECIFIED ABNORMAL FINDINGS OF BLOOD CHEMISTRY (6) Generalized weakness Current Visit: Yes Status: Acute Code(s): R53.1 - WEAKNESS (7) Hyponatremia Current Visit: Yes Status: Acute Code(s): E87.1 - HYPO-OSMOLALITY AND HYPONATREMIA (8) Hypotension Current Visit: Yes Status: Acute Code(s): I95.9 - HYPOTENSION, UNSPECIFIED (9) SOB (shortness of breath) Current Visit: Yes Status: Resolved Onset Date: ~03/09/18 Code(s): R06.02 - SHORTNESS OF BREATH
[2021-06-20 14:34] LABS: INFLUENZA A NEGATIVE (NEGATIVE); INFLUENZA B NEGATIVE (NEGATIVE); RESPIRATORY SYNCTIAL VIRUS NEGATIVE (Negative)
[2021-06-20 15:03] LABS: SARS-CoV-2 Xpert Express POSITIVE (NEGATIVE)
[2021-06-20] MEDS ORDERED: LEVOTHYROXINE SODIUM 300 MCG PO SCH (22:00)
[2021-06-20] MEDS ORDERED: NON-FORMULARY ITEM (Apixaban [Eliquis] 5 MG Tablet) PO SCH (22:00)
[2021-06-20] MEDS ORDERED: Sodium Chloride 0.9% 250 ML 250 ML IV SCH (23:15)
[2021-06-20] MEDS: Toprol Xl 50 MG PO SCH (23:17)
[2021-06-21 05:20] LABS: Absolute Neutrophil Ct (ANC) 4.49 (1.4-6.9); Basophil (Absolute #) 0.01 (0-0.4); Eosinophil % 0.6 % (0.00-5.0); Eosinophil (Absolute #) 0.04 (0-0.5); Hematocrit 34.5 % (35-47); Hemoglobin 10.9 gm/dl (12.0-16.0); Lymphocyte (Absolute #) 1.24 (1.0-4.6); Lymphocytes % 19.9 % (24.0-44.0); Mean Cell Volume 87.6 fl (78-100); Mean Corpuscular Hemoglobin 27.7 pg (26-32); Mean Corpuscular Hgb Concent. 31.6 g/dl (32-36); Mean Platelet Volume 10.3 fl (7.5-11.0); Monocyte (Absolute #) 0.45 (0.0-1.3); Monocytes % 7.2 % (0.0-12.0); Neutrophil % 72.1 % (36.0-66.0); Platelet Count 201 K/mm3 (150-450); Red Blood Count 3.94 M/mm3 (4.1-5.4); Red Cell Distribution Width 14.9 % (11.5-14.0); White Blood Count 6.2 K/mm3 (4.0-10.5)
[2021-06-21 05:58] LABS: ALBUMIN 3.5 g/dL (3.5-5.0); ANION GAP 12.4 MEQ/L (5-15); BILIRUBIN,TOTAL 0.4 mg/dL (0.2-1.3); Calcium 8.6 mg/dL (8.4-10.2); Creatinine 1 2.44 mg/dL (0.52-1.04); EST GLOMERULAR FILTRATION RATE 21.2 ML/MIN; Potassium 3.5 mmol/L (3.5-5.1); Total Protein 6.9 g/dL (6.3-8.2)
[2021-06-21] MEDS: Sodium Chloride 0.9% 1000 ML 1,000 ML IV SCH (07:23)
[2021-06-21] MEDS: SYNTHROID 150 MCG PO SCH ×2 (08:59→22:30)
[2021-06-21] MEDS: Protonix 40MG Tablet PO SCH (09:01)
[2021-06-21] MEDS: Toprol Xl 50 MG PO SCH (09:01)
[2021-06-21] MEDS: ELIQUIS 2.5 MG TABLET PO SCH ×2 (09:10→22:30)
[2021-06-21] MEDS ORDERED: Ms Contin 15 MG PO PRN ×2 (10:22→10:33)
[2021-06-21] MEDS ORDERED: Sodium Chloride 0.9% 1000 ML 1,000 ML IV SCH (10:30)
[2021-06-21] MEDS: Ms Contin 15 MG PO PRN (10:48)
--- NOTE | 2021-06-21 12:35 | HP ---
CHIEF COMPLAINT: Lightheadedness, hypotension, COVID, shortness of breath and generalized aching. HISTORY OF PRESENT ILLNESS: She has many chronic illnesses. She is 65 years old, patient of Dr. Saúl Mccallum. Dr. Dickens saw her initially in his absence. She was placed on the floor due to dehydration, hypotension and heart failure. However, her COVID test came back positive. She said she does ache all over and just been feeling bad. She has right-sided abdominal pain which is unusual. She has a colostomy which they cannot change. Apparently she had severe constipation and required several operations. She later had a heart attack and was left with cardiomyopathy. She is in atrial fibrillation. I think they tried an ablation. She still has problems with atrial fibrillation. She is anticoagulated and she has a pacemaker in place. Her software firmware engineer, Dr. Duarte, said she will have to see an machine set up operator for the problem. She did have some sternal chest pain in right upper chest 7 over 8 and was sharp, worse with nausea and worse with vomiting. Cardiac enzymes were normal and EKG did not show anything acute. MEDICATIONS: Tizanidine 6 t.i.d. PRN, Lasix 20 q.d., Phenergan 25 PRN nausea, Synthroid 300 mcg b.i.d. TSH is really high however talking to her industrial diamond polisher he feels like she has had diarrhea with colostomy because of lack of absorption and they should stay tight and remeasure in two weeks. Nitro PRN. Metoprolol succinate 75 b.i.d., Eliquis 5 mg b.i.d., Protonix 40 q.d. hydrocortisone cream 1% around the ostomy site. ALLERGIES: PERCOCET. SULFA. IRON. ADHESIVE. PAST MEDICAL HISTORY: She said she had a small stroke which she recovered from. She had a deep vein thrombosis in the past. She has mild renal insufficiency, endometriosis. She went into cardiac arrest several years ago. She had her thyroid removed. I do not see the scar from that. She has a scar from where they had taken off a lymph node on the right side of her neck. She is prediabetic. She said blood sugar is always normal. Her glycosylated hemoglobin was 5.2 last time they checked. She does not check her sugars. PAST SURGICAL HISTORY: Appendectomy. Cholecystectomy. Colon resection. Hernia repair. Hysterectomy. Thyroid removal. Parotid gland removal. Heart cath four years ago. Ankle surgery due to fracture. She had ileostomy. She has had a port replaced. She at one point had defib vest in April 2019. She had a thoracic fusion 2018. She had a carotidectomy. She has a [place] filter placed in 2019. REVIEW OF SYSTEMS: CONSTITUTIONAL: Fever for one week. Weakness all over. HEENT: Sore throat going away. RESPIRATORY: She was very short of breath and coughing and that has pretty well gone away. CVS: She came in with chest pain. She had myocardial infarction. She has atrial fibrillation, cardiomyopathy from ischemia problems. ABDOMEN: Nausea and vomiting. She has a colostomy due to perforation due to constipation. MUSCULOSKELETAL: She aches all over. She cannot take NSAID's due to be anticoagulated. Vicodin makes her sick so her doctor has her on some MS Contin, I believe. Will give a low dose of that as needed. FAMILY HISTORY: Heart disease, diabetes. SOCIAL HISTORY: She has never smoked. She lives with her who currently has no problems. PHYSICAL EXAMINATION: The patient is alert, oriented and talkative. VITAL SIGNS: Temperature 97F, pulse 80, respirations 18, blood pressure about 90/70 this morning. O2 saturation is 97% on room air. HEENT: Pupils equal and reactive to light. NECK: Supple. CHEST: Clear. CVS: No murmurs or gallops. ABDOMEN: Colostomy. LAB DATA AND TESTS: White count 6.6, hemoglobin 12.8. Electrolytes were all normal. Creatinine was 2.68 with creatinine clearance probably around 19. Lactic acid was a little bit high at 2.3. Blood sugar 123. Calcium and magnesium normal. Total bilirubin was 41. Liver enzymes were normal except for alkaline phosphatase being slightly high at 141. The gallbladder has been taken out. BNP was elevated at 5280. I just got the report she is also gram-positive cocci out of blood culture. However, she is afebrile and does not look toxic and white count is normal. TSH was markedly elevated 166. We talked about that with the industrial diamond polisher who told her to keep the large amount of Synthroid she is already taking as it has probably been washed out due to the diarrhea and other things. IMPRESSION: The patient has COVID and given her GI symptoms of abdominal pain, bloating, diarrhea. Depleted TSH and very dehydrated leaving her hypotension as low as 60 and near syncope. She has a rather severe heart disease with congestive heart failure, atrial fibrillation. Reports of that are not on the chart. She sees a software firmware engineer every two months. PLAN: The patient will be rehydrated. Actually her pressure dropped last night at 11 o'clock to about 60 and responded to 200 cc. If she would start coughing more I will start her on some anti-COVID drugs. I do not think the Decadron would not help her any. I do not think she is septic. She feels better. Chest x-ray with chronic changes, no real signs of any type of pneumonia. Her EKG showed atrial fibrillation with controlled rate of around 90. PROGNOSIS: Omega to be good.
[2021-06-21] MEDS: PHENERGAN 25 MG PO PRN (13:06)
[2021-06-21] MEDS ORDERED: Lasix 20 MG/2 ML ONE (15:19)
[2021-06-21] MEDS ORDERED: Lasix 20 MG/2 ML IV ONE ×2 (15:25→15:30)
[2021-06-21] MEDS: Phenergan 25 MG INJ*** 12.5 MG in Sodium Chloride 0.9% 100 ML BAG 100 ML IV PRN (17:41)
[2021-06-22] MEDS ORDERED: TYLENOL 325 MG PO PRN (03:59)
[2021-06-22 08:36] LABS: Hematocrit 33.2 % (35-47); Hemoglobin 10.4 gm/dl (12.0-16.0); Mean Corpuscular Hemoglobin 27.9 pg (26-32); Mean Corpuscular Hgb Concent. 31.3 g/dl (32-36); Mean Platelet Volume 10.8 fl (7.5-11.0); Platelet Count 201 K/mm3 (150-450); Red Blood Count 3.73 M/mm3 (4.1-5.4); Red Cell Distribution Width 15.3 % (11.5-14.0); White Blood Count 6.2 K/mm3 (4.0-10.5)
[2021-06-22 08:51] LABS: ANION GAP 13.4 MEQ/L (5-15); Calcium 8.2 mg/dL (8.4-10.2); Creatinine 1 2.01 mg/dL (0.52-1.04); EST GLOMERULAR FILTRATION RATE 26.5 ML/MIN; Potassium 3.6 mmol/L (3.5-5.1)
[2021-06-22] MEDS: Toprol Xl 50 MG PO SCH ×2 (09:48→09:51)
[2021-06-22] MEDS: SYNTHROID 150 MCG PO SCH ×2 (09:49→22:23)
[2021-06-22] MEDS: ELIQUIS 2.5 MG TABLET PO SCH ×2 (09:50→22:23)
[2021-06-22] MEDS: Protonix 40MG Tablet PO SCH (09:50)
[2021-06-22] MEDS ORDERED: TORAdol 30 mg Injection IV PRN (10:21)
[2021-06-22] MEDS ORDERED: Sodium Chloride 0.9% 1000 ML 1,000 ML IV SCH (10:30)
--- NOTE | 2021-06-22 11:46 | PROG NOTE ---
DATE: 06/22/2021 BRIEF HISTORY: Patient looks better today. However, her BP is still 80/50 and it drops when she stands up. She has some renal insufficiency, it's chronic, and she came in dehydrated and fluids did bring that up for a while. She is eating a little bit. She is no longer nauseated. No vomiting. She is not short of breath. Her O2 saturations are normal on room air. She wants narcotics for her pain on her left side. There is no skin lesion. She has marked tenderness over approximately the 6th rib and the mid anterior clavicular line. I imagine she has a stress fracture or torn muscle from coughing. I told her really the narcotics won't work that well and they are contraindicated to her hypotension. CHEST: Her chest is clear. CVS: Heart sounds regular. ABDOMEN: Soft. PLAN: Will hold the Toprol until we get her BP up. Try to give her 100 cc of fluid for a liter. Get a BMP, d-dimer, check her creatinine tomorrow. Stop the Toprol as really our main problem now is hypotension. She doesn't seem to be in heart failure. Not having any chest pain that is indicative of angina. PROGNOSIS: Prognosis is good. Just got to get off the Demerol idea and get her BP up.
[2021-06-22] MEDS: PHENERGAN 25 MG PO PRN (14:52)
[2021-06-23] MEDS: Phenergan 25 MG INJ*** 12.5 MG in Sodium Chloride 0.9% 100 ML BAG 100 ML IV PRN (01:13)
[2021-06-23 07:04] LABS: Hematocrit 34.3 % (35-47); Hemoglobin 10.3 gm/dl (12.0-16.0); Mean Cell Volume 92.7 fl (78-100); Mean Corpuscular Hemoglobin 27.8 pg (26-32); Mean Platelet Volume 10.3 fl (7.5-11.0); Platelet Count 163 K/mm3 (150-450); Red Cell Distribution Width 15.7 % (11.5-14.0); White Blood Count 6.2 K/mm3 (4.0-10.5)
[2021-06-23] MEDS: Sodium Chloride 0.9% 1000 ML 1,000 ML IV SCH ×2 (07:20→16:54)
[2021-06-23 07:27] LABS: ALBUMIN 3.1 g/dL (3.5-5.0); ANION GAP 11.6 MEQ/L (5-15); BILIRUBIN,TOTAL 0.5 mg/dL (0.2-1.3); Calcium 7.8 mg/dL (8.4-10.2); Creatinine 1 1.45 mg/dL (0.52-1.04); EST GLOMERULAR FILTRATION RATE 38.6 ML/MIN; Potassium 3.5 mmol/L (3.5-5.1); Total Protein 6.2 g/dL (6.3-8.2)
[2021-06-23] MEDS: SYNTHROID 150 MCG PO SCH ×2 (08:42→22:04)
[2021-06-23] MEDS: Protonix 40MG Tablet PO SCH (08:43)
[2021-06-23] MEDS: ELIQUIS 2.5 MG TABLET PO SCH ×2 (08:43→22:04)
[2021-06-23] MEDS: Zanaflex 4 MG PO PRN (08:44)
[2021-06-23] MEDS: PHENERGAN 25 MG PO PRN (08:44)
[2021-06-23] MEDS: Ms Contin 15 MG PO PRN (08:45)
[2021-06-23] MEDS: Toprol-Xl 25MG Tablets PO SCH (12:34)
[2021-06-23] MEDS ORDERED: TORAdol 10 MG TABLET PO PRN (13:43)
[2021-06-24 06:40] LABS: Hemoglobin 9.9 gm/dl (12.0-16.0); Mean Cell Volume 90.7 fl (78-100); Mean Corpuscular Hgb Concent. 30.9 g/dl (32-36); Mean Platelet Volume 10.4 fl (7.5-11.0); Platelet Count 157 K/mm3 (150-450); Red Blood Count 3.53 M/mm3 (4.1-5.4); Red Cell Distribution Width 15.7 % (11.5-14.0); White Blood Count 5.3 K/mm3 (4.0-10.5)
[2021-06-24 07:16] LABS: ANION GAP 10.3 MEQ/L (5-15); Potassium 3.6 mmol/L (3.5-5.1)
[2021-06-24 08:01] VITALS: BP 110/57; PULSE 107; O2SAT 100
[2021-06-24] MEDS: ELIQUIS 2.5 MG TABLET PO SCH (09:01)
[2021-06-24] MEDS: Protonix 40MG Tablet PO SCH (09:01)
[2021-06-24] MEDS: Zanaflex 4 MG PO PRN (09:02)
[2021-06-24] MEDS: SYNTHROID 150 MCG PO SCH (09:02)
[2021-06-24] MEDS: Toprol-Xl 25MG Tablets PO SCH (09:03)
--- NOTE | 2021-06-26 12:03 | DS ---
ADMISSION DIAGNOSES: 1) COVID pneumonia. 2) Chest pain. 3) Chronic obstructive pulmonary disease. 4) Positive blood cultures. DISCHARGE DIAGNOSES: 1) COVID PNEUMONIA. 2) HEART FAILURE. 3) DIABETES MELLITUS TYPE II. 4) CHRONIC RENAL INSUFFICIENCY. 5) ANEMIA. 6) ATRIAL FIBRILLATION. 7) BRADYCARDIA. 8) HYPERTENSION. HISTORY: The patient came in after several days of feeling terrible, more nausea, shortness of breath and cough. Her O2 saturation initially was 97% and it really stayed above that the entire stay. The main problem really was the chest pain on the left lower side where I think she has a stress fracture from coughing. It is very tender to touch. Chest x-ray did not show anything. BNP was elevated at 5580. Electrolytes were normal. Her D-dimer was elevated to 1300 on admission. Hemoglobin was 9.9, white count 5.3. HOSPITAL COURSE: The patient got to the point where she was demanding morphine for her chest pain. However, morphine would drop her blood pressure down to 80 or 70 and so we finally told her we had to stop that. I did stop her Toprol for a while because of the hypotension and resumed it the day before discharge. We discontinued the morphine. Her blood pressure stayed up and she is tolerating her rib pain quite well. She is eating well, walking fine. She seems to be in no distress. Chest clear. CVS: Irregular-irregular at 80. Abdomen soft. IMPRESSION: 1) COVID pneumonia. 2) COVID gastritis. 3) Fractured left rib. 4) Atrial fibrillation. 5) Coronary artery disease.
== END 2021-06-24 12:00 | disposition home or self-care (01) | DRG 177 ==
LOC: ED 01:41 → MED SURG 08:00 → OBSVTOIN 06-21 11:53
PROVIDERS: ADMIT Family Medicine; ATTEND Family Medicine
DX: U07.1 COVID-19 (principal); J12.82 Pneumonia due to coronavirus disease 2019; E87.1 Hypo-osmolality and hyponatremia; I50.9 Heart failure, unspecified; E11.22 Type 2 diabetes mellitus with diabetic chronic kidney disease; N18.9 Chronic kidney disease, unspecified; D64.9 Anemia, unspecified; I48.91 Unspecified atrial fibrillation; R00.1 Bradycardia, unspecified; I11.0 Hypertensive heart disease with heart failure; E03.9 Hypothyroidism, unspecified; R79.89 Other specified abnormal findings of blood chemistry; R53.1 Weakness; I95.9 Hypotension, unspecified; Z79.899 Other long term (current) drug therapy; Z79.01 Long term (current) use of anticoagulants; Z20.828 Contact with and (suspected) exposure to other viral communicable diseases
CPT/HCPCS: 0241U; 36000; 36415; 71045; 80048; 80051; 80053; 81001; 83605; 83735; 83880; 84436; 84443; 84484; 85025; 85027; 85379; 86308; 87040; 87077; 87086; 87186; 87400; 93005; 93041; 93268; 94762; 96374; 96375; 99000; 99285; 99291; G0378; Q3014; J1885; J1940; J2405; J2550; A9270-GY

== ENCOUNTER 2021-07-30 11:59 | Emergency (ER) | payer MEDICARE ==
[2021-07-30] MEDS ORDERED: Sodium Chloride 0.9% 1000 ML 1,000 ML IV SCH (12:15)
[2021-07-30] MEDS ORDERED: MORPHINE SULFATE 4 MG INJ IM ONE (12:19)
[2021-07-30 12:30] LABS: Absolute Neutrophil Ct (ANC) 3.66 (1.4-6.9); Basophil (Absolute #) 0.05 (0-0.4); Eosinophil % 4.8 % (0.00-5.0); Hematocrit 29.9 % (35-47); Hemoglobin 9.1 gm/dl (12.0-16.0); Lymphocytes % 28.6 % (24.0-44.0); Mean Cell Volume 91.7 fl (78-100); Mean Corpuscular Hemoglobin 27.9 pg (26-32); Mean Corpuscular Hgb Concent. 30.4 g/dl (32-36); Mean Platelet Volume 8.9 fl (7.5-11.0); Monocyte (Absolute #) 0.49 (0.0-1.3); Monocytes % 7.8 % (0.0-12.0); Platelet Count 284 K/mm3 (150-450); Red Blood Count 3.26 M/mm3 (4.1-5.4); Red Cell Distribution Width 16.8 % (11.5-14.0); White Blood Count 6.3 K/mm3 (4.0-10.5)
[2021-07-30 12:36] LABS: INR 1.17 (0.8-3.0); PROTIME 13.8 SECONDS (9.4-12.5)
[2021-07-30 12:40] LABS: ANION GAP 15.1 MEQ/L (5-15); BILIRUBIN,TOTAL 0.5 mg/dL (0.2-1.3); Calcium 8.8 mg/dL (8.4-10.2); Creatinine 1 1.36 mg/dL (0.52-1.04); EST GLOMERULAR FILTRATION RATE 41.5 ML/MIN; Potassium 3.5 mmol/L (3.5-5.1); Total Protein 7.5 g/dL (6.3-8.2)
[2021-07-30 12:43] LABS: Appearance CLOUDY (CLEAR); Bacteria RARE /HPF (NEGATIVE); Bilirubin NEGATIVE (NEGATIVE); Blood NEGATIVE Ery/ul (0-5); Epithelial Cells RARE /HPF (FEW); Glucose NEGATIVE (NEGATIVE); Ketones NEGATIVE (NEGATIVE); Leukocyte Esterase NEGATIVE (NEGATIVE); Mucus SLIGHT /HPF (NEGATIVE); Nitrite NEGATIVE (NEGATIVE); Protein,Urine Dip 30 (Negative); Urobilinogen NEGATIVE mg/dL (0-1)
[2021-07-30 12:54] LABS: Amphetamine,Urine NEGATIVE (NEGATIVE); Barbiturate,Urine NEGATIVE (NEGATIVE); Benzodiazepine,Urine NEGATIVE (NEGATIVE); Cocaine,Urine NEGATIVE (NEGATIVE); Methadone,Urine NEGATIVE (NEGATIVE); Opiate,Urine POSITIVE (NEGATIVE); PCP,Urine NEGATIVE (NEGATIVE); THC,Urine NEGATIVE (NEGATIVE)
--- NOTE | 2021-07-30 13:08 | XRAY ---
Indication: Left flank pain. Multiple contiguous axial images obtained through the abdomen and pelvis without contrast Comparison: July 06, 2021. Lung bases again demonstrates scattered subsequent atelectasis/scarring. Heart remains enlarged. Noncontrasted stomach and bowel loops nonobstructed. Small bowel loops are now mildly fluid distended with fluid level in, ileus versus enteritis. Again right lower quadrant colostomy with loop of small bowel herniating through the ventral wall defect without complications. Stable epigastric surgical clips, cholecystectomy, hysterectomy, IVC filter, and stent grafts in the IVC/common iliac/external iliac veins bilaterally. Also stable left renal small [id number] cortical calcifications. No free fluid/air. Remaining liver, pancreas, spleen, adrenal glands, kidneys, ureters, and bladder are unremarkable for noncontrast exam. Again minimal aortoiliac calcifications without AAA. Impression: 1. New mild fluid distended small bowel loops with fluid leveling, ileus versus enteritis. 2. Stable right lower quadrant colostomy with herniated small bowel loop without complications. 3. Stable IVC filter, multiple venous stent grafts, left renal indeterminate cortical calcifications, and cardiomegaly.
--- NOTE | 2021-07-30 13:10 | XRAY ---
Indication: Left flank pain. Comparison: June 20, 2021. Portable chest less inflated with new minimal bibasilar subsegmental atelectasis/scarring. No infiltrate, consolidation, or large effusion. Heart now enlarged again with right Port-A-Cath and left AICD. Impression: New cardiomegaly and bibasilar subsegmental atelectasis/scarring. Negative for acute pneumonic process or CHF.
[2021-07-30] MEDS ORDERED: Sodium Chloride 0.9% 1000 ML 1,000 ML ONE (13:13)
[2021-07-30] MEDS ORDERED: MORPHINE SULFATE 4 MG INJ ONE (13:13)
[2021-07-30 13:14] VITALS: BP 119/72
--- NOTE | 2021-07-30 13:26 | ERPHSYRPT ---
- History of Present Illness Time Seen by Provider: 07/30/21 12:20 Historian: patient Exam Limitations: no limitations Patient Subjective Stated Complaint: Pt c/o of left sided flank pain that radiates to the left lower quadrant x 2 days Triage Nursing Assessment: Pt brought self to the ER, vitals wnl, rates pain as 8-9/10, irais lower leg edema, ostomy, no difficulties with breathing, pulses normal, skin n/w/d, N&V, pain to the left flank that radiates to the LLQ, hx of kidney stones which had to be surgically removed, doesn't appear to be in any distress Physician History: Patient is a 66-year-old female who Zentz with abdominal pain for 2 days. Primarily in the left lower quadrant and left flank. She does have a history of urinary tract stones. She has a port and previous abdominal surgeries include a colostomy. She is also had a hysterectomy gallbladder and appendix. She does have a loop of small bowel causing a hernia in the abdominal side of the ostomy. She denies any fever chills or sweats she has had some vomiting that she has had decreased urine output no other symptoms or change in urination she is on MS for chronic back pain. Timing/Duration: day(s) (2) Activities at Onset: none Quality: cramping, throbbing Abdominal Pain Onset Location: flank (Left) Pain Radiation: LLQ Severity of Pain-Max: moderate Severity of Pain-Current: moderate Modifying Factors: Improves With: nothing Associated Symptoms: nausea, vomiting Previous symptoms: no prior history Allergies/Adverse Reactions: adhesive Allergy (Mild, Verified 07/30/21 12:20) Blisters codeine [Codeine] Allergy (Mild, Verified 07/30/21 12:20) Nausea and Vomiting Sulfa (Sulfonamide Antibiotics) [Sulfa(Sulfonamide Antibiotics)] Allergy (Mild, Verified 07/30/21 12:20) Nausea and Vomiting iron Adverse Reaction (Intermediate, Verified 07/30/21 12:20) Nausea oxycodone [From Percocet] Adverse Reaction (Intermediate, Verified 07/30/21 12:20) Vomiting Home Medications: Tizanidine HCl 6 mg PO TID PRN PRN 11/10/17 [History] Furosemide [Lasix] 40 mg PO DAILY PRN PRN 03/09/18 [History] Promethazine HCl 25 mg [Phenergan 25 mg] 25 mg PO Q6H PRN PRN 01/14/19 [History] Levothyroxine Sodium [Synthroid] 300 mcg PO BID 04/29/19 [History] Nitroglycerin 0.4 mg SL Q5MIN PRN MR X 3 PRN 04/29/19 [History] Metoprolol Succinate 50 mg PO BID 09/20/19 [History] PANTOPRAZOLE 40 mg Tablet [Protonix 40MG Tablet] 1 tab PO DAILY 02/10/21 [History] Hydrocortisone 1% Cream [Cortisone 1% Cream] 1 gm TP TID PRN PRN 06/20/21 [History] Amiodarone HCl 200 mg [Cordarone 200 MG] 100 mg PO DAILY 07/30/21 [History] Morphine Sulfate [Morphine Sulfate ER] 30 mg PO BID 07/30/21 [History] Hx Tetanus, Diphtheria Vaccination/Date Given: Yes Hx Influenza Vaccination/Date Given: Yes Hx Pneumococcal Vaccination/Date Given: Yes Travel Risk - International Travel Have you traveled outside of the country in past 3 weeks: No - Coronavirus Screening Are you exhibiting any of the following symptoms?: No Close contact with a COVID-19 positive Pt in past 14-21 Days: No - Vaccine Status Have you recieved a Covid-19 vaccination: No - Review of Systems Constitutional: No Fever, No Chills Eyes: No Symptoms Ears, Nose, & Throat: No Symptoms Respiratory: No Cough, No Dyspnea Cardiac: No Chest Pain, No Edema, No Syncope Abdominal/Gastrointestinal: Nausea, Vomiting, No Abdominal Pain, No Diarrhea Genitourinary Symptoms: No Dysuria Musculoskeletal: No Back Pain, No Neck Pain Skin: No Rash Neurological: No Dizziness, No Focal Weakness, No Sensory Changes Psychological: No Symptoms Endocrine: No Symptoms All Other Systems: Reviewed and Negative - Past Medical History Pertinent Past Medical History: Yes Neurological History: Migraines, Stroke ENT History: No Pertinent History Cardiac History: Angina, Arrhythmia, Congestive Heart Failure, Coronary Artery Disease, Deep Vein Thrombosis, Other Respiratory History: Asthma Endocrine Medical History: Hypothyroidism, Thyroid Cancer Musculoskeletal History: Other GI Medical History: GERD, Hernia, Other History: Renal Disease, Other Psycho-Social History: No Pertinent History Female Reproductive Disorders: Endometriosis Other Medical History: HX Cardiac Arrest, HX Thyroid Removal, HX Back pain. HX A-Fib. Pre diabetic - Past Surgical History Past Surgical History: Yes Neuro Surgical History: No Pertinent History Cardiac: Cardiac Catheterization, Internal Defibrillator, Pacemaker, Other Respiratory: No Pertinent History Gastrointestinal: Appendectomy, Cholecystectomy, Colon Resection, Hernia Repair, Other Genitourinary: No Pertinent History Musculoskeletal: Orthopedic Surgery Female Surgical History: Hysterectomy Other Surgical History: THYROID REMOVED and Parotid gland removed; 40% and 50% blockages found with last heart cath about 4 years ago. ankle surgery d/t break,ileostomy, CVL port removed and replaced, Port placed. HX ostomy repair due to blockage 09/02, back surgery and 4 I&D september and october and november 2017. 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 TLIF fused discs in back. OCTOBER 2018 CAROTIDECTOMY AND LYMPH NODE REMOVAL ON RIGHT SIDE. Right Parotid gland removed. "filter for blood clots 2018" - Social History Smoking Status: Never smoker Exposure to second hand smoke: No Alcohol Use: None Drug Use: none Patient Lives Alone: No Significant Family History: heart disease, cancer, diabetes - Nursing Vital Signs Nursing Vital Signs: Initial Vital Signs Temperature 97.9 F 07/30/21 12:04 Pulse Rate 90 07/30/21 12:04 Blood Pressure 136/87 07/30/21 12:04 O2 Sat by Pulse Oximetry 100 07/30/21 12:04 Pain Scale Pain Intensity 8 - Physical Exam General Appearance: mild distress, alert Eye Exam: PERRL/EOMI, eyes nml inspection Ears, Nose, Throat Exam: normal ENT inspection, pharynx normal, moist mucous membranes Neck Exam: normal inspection, non-tender, supple, full range of motion Respiratory Exam: normal breath sounds, lungs clear, No respiratory distress Cardiovascular Exam: regular rate/rhythm, normal heart sounds Gastrointestinal/Abdomen Exam: soft, other (Colostomy noted), No tenderness, No mass Back Exam: normal inspection, normal range of motion, No CVA tenderness, No vertebral tenderness Extremity Exam: normal inspection, normal range of motion, pelvis stable Neurologic Exam: alert, oriented x 3, cooperative, normal mood/affect, nml cerebellar function, sensation nml, No motor deficits Skin Exam: normal color, warm, dry SpO2 Interpretation: normal SpO2: 96 O2 Delivery: Room Air - Course Nursing assessment & vital signs reviewed: Yes - Radiology Exams Chest X-ray Interpretation: Negative - CT Exams Abdomen/Pelvis CT Interpretation: Tele-radiologist Report Ordered Tests: Active Orders 24 hr Category Date Time Status ABDOMEN AND PELVIS W/0 CONTRAS [CT] Stat Exams 07/30/21 12:12 Completed CHEST 1 VIEW (PORTABLE) Stat Exams 07/30/21 12:12 Completed AMYLASE Stat Lab 07/30/21 12:25 Completed CBC W DIFF Stat Lab 07/30/21 12:25 Completed CMP Stat Lab 07/30/21 12:25 Completed LIPASE Stat Lab 07/30/21 12:25 Completed Lactic Acid Stat Lab 07/30/21 12:12 Ordered PROTIME WITH INR Stat Lab 07/30/21 12:25 Completed UA W/RFX UR CULTURE Stat Lab 07/30/21 12:20 Completed Urine Triage Profile Stat Lab 07/30/21 12:20 Completed Medication Summary Generic Name Dose Route Start Last Admin Trade Name Freq PRN Reason Stop Dose Admin Sodium Chloride 1,000 mls @ 100 mls/hr 07/30/21 12:15 07/30/21 13:14 Sodium Chloride 0.9% 1000 Ml IV 08/29/21 12:14 100 mls/hr .Q10H JUSTIN Administration Discontinued Medications Generic Name Dose Route Start Last Admin Trade Name Freq PRN Reason Stop Dose Admin Morphine Sulfate 4 mg 07/30/21 12:19 07/30/21 13:14 Morphine Sulfate 4 Mg/Ml Injection IM 07/30/21 12:20 4 mg STAT ONE Administration Morphine Sulfate Confirm 07/30/21 13:13 Morphine Sulfate 4 Mg/Ml Injection Administered 07/30/21 13:14 Dose 4 mg .ROUTE .STK-MED ONE Lab/Rad Data: Laboratory Result Diagrams 07/30/21 12:25 07/30/21 12:25 Laboratory Results 07/30/21 07/30/21 07/30/21 Range/Units 12:25 12:25 12:25 WBC 6.3 (4.0-10.5) K/mm3 RBC 3.26 L (4.1-5.4) M/mm3 Hgb 9.1 L (12.0-16.0) gm/dl Hct 29.9 L (35-47) % MCV 91.7 (78-100) fl MCH 27.9 (26-32) pg MCHC 30.4 L (32-36) g/dl RDW 16.8 H (11.5-14.0) % Plt Count 284 (150-450) K/mm3 MPV 8.9 (7.5-11.0) fl Gran % 58.0 (36.0-66.0) % Eos # (Auto) 0.30 (0-0.5) Absolute Lymphs (auto) 1.80 (1.0-4.6) Absolute Monos (auto) 0.49 (0.0-1.3) Lymphocytes % 28.6 (24.0-44.0) % Monocytes % 7.8 (0.0-12.0) % Eosinophils % 4.8 (0.00-5.0) % Basophils % 0.8 (0.0-0.4) % Absolute Granulocytes 3.66 (1.4-6.9) Basophils # 0.05 (0-0.4) PT 13.8 H (9.4-12.5) SECONDS INR 1.17 (0.8-3.0) Sodium 141 (137-145) mmol/L Potassium 3.5 (3.5-5.1) mmol/L Chloride 106 (98-107) mmol/L Carbon Dioxide 24 (22-30) mmol/L Anion Gap 15.1 H (5-15) MEQ/L BUN 11 (7-17) mg/dL Creatinine 1.36 H (0.52-1.04) mg/dL Estimated GFR 41.5 ML/MIN Glucose 124 H (74-106) mg/dL Calcium 8.8 (8.4-10.2) mg/dL Total Bilirubin 0.50 (0.2-1.3) mg/dL AST 24 (14-36) U/L ALT 13 (0-35) U/L Alkaline Phosphatase 101 (38-126) U/L Serum Total Protein 7.5 (6.3-8.2) g/dL Albumin 4.0 (3.5-5.0) g/dL Amylase 47 (30-110) U/L Lipase 131 (23-300) U/L Urine Color (YELLOW) Urine Appearance (CLEAR) Urine pH (5-6) Ur Specific [place] (1.005-1.025) Urine Protein (Negative) Urine Ketones (NEGATIVE) Urine Blood (0-5) Hemal/ul Urine Nitrite (NEGATIVE) Urine Bilirubin (NEGATIVE) Urine Urobilinogen (0-1) mg/dL Ur Leukocyte Esterase (NEGATIVE) Urine WBC (Auto) (0-5) /HPF Urine RBC (Auto) (0-2) /HPF U Hyaline Cast (Auto) (0-2) /LPF U Epithel Cells (Auto) (FEW) /HPF Urine Bacteria (Auto) (NEGATIVE) /HPF Urine Mucus (Auto) (NEGATIVE) /HPF Urine Culture Reflexed (NO) Urine Glucose (NEGATIVE) mg/dL Urine Opiates Level (NEGATIVE) Ur Methadone (NEGATIVE) Urine Barbiturates (NEGATIVE) Ur Phencyclidine (PCP) (NEGATIVE) Urine Amphetamine (NEGATIVE) U Benzodiazepine Level (NEGATIVE) Urine Cocaine (NEGATIVE) Urine Marijuana (THC) (NEGATIVE) 07/30/21 07/30/21 Range/Units 12:20 12:20 WBC (4.0-10.5) K/mm3 RBC (4.1-5.4) M/mm3 Hgb (12.0-16.0) gm/dl Hct (35-47) % MCV (78-100) fl MCH (26-32) pg MCHC (32-36) g/dl RDW (11.5-14.0) % Plt Count (150-450) K/mm3 MPV (7.5-11.0) fl Gran % (36.0-66.0) % Eos # (Auto) (0-0.5) Absolute Lymphs (auto) (1.0-4.6) Absolute Monos (auto) (0.0-1.3) Lymphocytes % (24.0-44.0) % Monocytes % (0.0-12.0) % Eosinophils % (0.00-5.0) % Basophils % (0.0-0.4) % Absolute Granulocytes (1.4-6.9) Basophils # (0-0.4) PT (9.4-12.5) SECONDS INR (0.8-3.0) Sodium (137-145) mmol/L Potassium (3.5-5.1) mmol/L Chloride (98-107) mmol/L Carbon Dioxide (22-30) mmol/L Anion Gap (5-15) MEQ/L BUN (7-17) mg/dL Creatinine (0.52-1.04) mg/dL Estimated GFR ML/MIN Glucose (74-106) mg/dL Calcium (8.4-10.2) mg/dL Total Bilirubin (0.2-1.3) mg/dL AST (14-36) U/L ALT (0-35) U/L Alkaline Phosphatase (38-126) U/L Serum Total Protein (6.3-8.2) g/dL Albumin (3.5-5.0) g/dL Amylase (30-110) U/L Lipase (23-300) U/L Urine Color YELLOW (YELLOW) Urine Appearance CLOUDY (CLEAR) Urine pH 5.0 (5-6) Ur Specific [place] 1.020 (1.005-1.025) Urine Protein 30 (Negative) Urine Ketones NEGATIVE (NEGATIVE) Urine Blood NEGATIVE (0-5) Hemal/ul Urine Nitrite NEGATIVE (NEGATIVE) Urine Bilirubin NEGATIVE (NEGATIVE) Urine Urobilinogen NEGATIVE (0-1) mg/dL Ur Leukocyte Esterase NEGATIVE (NEGATIVE) Urine WBC (Auto) 16-25 (0-5) /HPF Urine RBC (Auto) 3-5 (0-2) /HPF U Hyaline Cast (Auto) 11-25 (0-2) /LPF U Epithel Cells (Auto) RARE (FEW) /HPF Urine Bacteria (Auto) RARE (NEGATIVE) /HPF Urine Mucus (Auto) SLIGHT (NEGATIVE) /HPF Urine Culture Reflexed NO (NO) Urine Glucose NEGATIVE (NEGATIVE) mg/dL Urine Opiates Level POSITIVE (NEGATIVE) Ur Methadone NEGATIVE (NEGATIVE) Urine Barbiturates NEGATIVE (NEGATIVE) Ur Phencyclidine (PCP) NEGATIVE (NEGATIVE) Urine Amphetamine NEGATIVE (NEGATIVE) U Benzodiazepine Level NEGATIVE (NEGATIVE) Urine Cocaine NEGATIVE (NEGATIVE) Urine Marijuana (THC) NEGATIVE (NEGATIVE) - Progress Progress: unchanged - Departure Departure Disposition: Home Clinical Impression: UTI (urinary tract infection) Condition: Stable Critical Care Time: No Referrals: WAQAR CASTRO [Primary Care Provider] - Follow up/PCP as directed Instructions: Urinary Tract Infection, Adult (DC) Additional Instructions: Urinary tract infection Prescriptions: Ciprofloxacin [Cipro 500 MG] 500 mg PO BID #14 tablet
[2021-07-30 13:30] VITALS: PULSE 94; O2SAT 100
== END 2021-07-30 13:33 | disposition home or self-care (01) ==
LOC: ED 11:59
DX: N39.0 Urinary tract infection, site not specified (principal); R10.32 Left lower quadrant pain; R11.2 Nausea with vomiting, unspecified; I50.9 Heart failure, unspecified; K21.9 Gastro-esophageal reflux disease without esophagitis; Z86.718 Personal history of other venous thrombosis and embolism; Z87.442 Personal history of urinary calculi; Z79.891 Long term (current) use of opiate analgesic; Z79.899 Other long term (current) drug therapy
CPT/HCPCS: 36415; 71045; 74176; 80053; 80307; 81001; 82150; 83605; 83690; 85025; 85610; 96372; 99284; J2270

== ENCOUNTER 2021-08-15 12:33 | Emergency (ER) | payer MEDICARE ==
--- NOTE | 2021-08-15 13:57 | ERPHSYRPT ---
- History of Present Illness Time Seen by Provider: 08/15/21 12:52 Historian: patient Exam Limitations: no limitations Patient Subjective Stated Complaint: " I have been having right upper abdominal pains and into my ostomy bag. This has been going on for a couple weeks and I'm suppose to get a hernia repair surgery but the pain is too bad. I want a scan to see if anything has changed. I haven't had much out in my ostomy since Friday." Triage Nursing Assessment: Pt presents to ER with complaints of RUQ abd pain and ilestomy pain. Pt also complains of constipation. Pt is alert and oriented x 3. Skin is pink, warm, and dry. Pt complains of nausea and "dry heaves". Pt is scheduled for hernia repair surgery but states the abdominal pain has got too bad to handle. Pt rates pain 8/10 scale. Pt respiraitons are easy and unlabored at this time. Physician History: 66 years old female with multiple medical problems including coronary artery disease, congestive heart failure, atrial fibrillation, hypertension, hyperl ipidemia, permanent ileostomy with data ileostomy hernia scheduled for repair in the next few days presented to the ER with increasing upper abdominal and right- sided pain for the last 5 days with normal ostomy output. Patient has been taking routine pain medications morphine and has taken [id number] laxative with no relief at all. Has nausea and dry heaving but no vomiting. No fever or chills reported. Timing/Duration: day(s) (5), gradual onset, worse Activities at Onset: rest Quality: sharpness Abdominal Pain Onset Location: RUQ, epigastric, periumbilical, flank Pain Radiation: no radiation Severity of Pain-Max: severe Severity of Pain-Current: moderate Modifying Factors: Improves With: analgesics Associated Symptoms: nausea, No vomiting Allergies/Adverse Reactions: adhesive Allergy (Mild, Verified 08/15/21 12:52) Blisters codeine [Codeine] Allergy (Mild, Verified 08/15/21 12:52) Nausea and Vomiting Sulfa (Sulfonamide Antibiotics) [Sulfa(Sulfonamide Antibiotics)] Allergy (Mild, Verified 08/15/21 12:52) Nausea and Vomiting iron Adverse Reaction (Intermediate, Verified 08/15/21 12:52) Nausea oxycodone [From Percocet] Adverse Reaction (Intermediate, Verified 08/15/21 12:52) Vomiting Home Medications: Tizanidine HCl 6 mg PO TID PRN PRN 11/10/17 [History] Furosemide [Lasix] 40 mg PO DAILY PRN PRN 03/09/18 [History] Promethazine HCl 25 mg [Phenergan 25 mg] 25 mg PO Q6H PRN PRN 01/14/19 [History] Levothyroxine Sodium [Synthroid] 300 mcg PO BID 04/29/19 [History] Nitroglycerin 0.4 mg SL Q5MIN PRN MR X 3 PRN 04/29/19 [History] Metoprolol Succinate 50 mg PO BID 09/20/19 [History] PANTOPRAZOLE 40 mg Tablet [Protonix 40MG Tablet] 1 tab PO DAILY 02/10/21 [History] Hydrocortisone 1% Cream [Cortisone 1% Cream] 1 gm TP TID PRN PRN 06/20/21 [History] Amiodarone HCl 200 mg [Cordarone 200 MG] 100 mg PO DAILY 07/30/21 [History] Morphine Sulfate [Morphine Sulfate ER] 30 mg PO BID 07/30/21 [History] Hx Tetanus, Diphtheria Vaccination/Date Given: Yes Hx Influenza Vaccination/Date Given: Yes Hx Pneumococcal Vaccination/Date Given: No Immunizations Up to Date: Yes Travel Risk - International Travel Have you traveled outside of the country in past 3 weeks: No - Coronavirus Screening Are you exhibiting any of the following symptoms?: No Close contact with a COVID-19 positive Pt in past 14-21 Days: No - Vaccine Status Have you recieved a Covid-19 vaccination: No - Review of Systems Constitutional: No Symptoms Eyes: No Symptoms Ears, Nose, & Throat: No Symptoms Respiratory: No Symptoms (Also she needs a CT of the) Cardiac: No Symptoms Abdominal/Gastrointestinal: Abdominal Pain, Nausea, Constipation Genitourinary Symptoms: No Symptoms Musculoskeletal: Arthralgias, Back Pain Skin: No Symptoms Neurological: No Symptoms Psychological: No Symptoms Hematologic/Lymphatic: No Symptoms Immunological/Allergic: No Symptoms - Past Medical History Pertinent Past Medical History: Yes Neurological History: Migraines, Stroke ENT History: No Pertinent History Cardiac History: Angina, Arrhythmia, Congestive Heart Failure, Coronary Artery Disease, Deep Vein Thrombosis, Other Respiratory History: Asthma Endocrine Medical History: Hypothyroidism, Thyroid Cancer Musculoskeletal History: Other GI Medical History: GERD, Hernia, Other History: Renal Disease, Other Psycho-Social History: No Pertinent History Female Reproductive Disorders: Endometriosis Other Medical History: HX Cardiac Arrest, HX Thyroid Removal, HX Back pain. HX A-Fib. Pre diabetic - Past Surgical History Past Surgical History: Yes Neuro Surgical History: No Pertinent History Cardiac: Cardiac Catheterization, Internal Defibrillator, Pacemaker, Other Respiratory: No Pertinent History Gastrointestinal: Appendectomy, Cholecystectomy, Colon Resection, Hernia Repair, Other Genitourinary: No Pertinent History Musculoskeletal: Orthopedic Surgery Female Surgical History: Hysterectomy Other Surgical History: THYROID REMOVED and Parotid gland removed; 40% and 50% blockages found with last heart cath about 4 years ago. ankle surgery d/t break,ileostomy, CVL port removed and replaced, Port placed. HX ostomy repair due to blockage 09/02, back surgery and 4 I&D september and october and november 2017. 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 TLIF fused discs in back. OCTOBER 2018 CAROTIDECTOMY AND LYMPH NODE REMOVAL ON RIGHT SIDE. Right Parotid gland removed. "filter for blood clots 2018" - Social History Smoking Status: Never smoker Exposure to second hand smoke: No Alcohol Use: None Drug Use: none Patient Lives Alone: No Significant Family History: heart disease, cancer, diabetes - Nursing Vital Signs Nursing Vital Signs: Initial Vital Signs Temperature 97 F 08/15/21 12:46 Pulse Rate 107 H 08/15/21 12:46 Respiratory Rate 16 08/15/21 12:46 Blood Pressure 134/93 08/15/21 12:46 O2 Sat by Pulse Oximetry 99 08/15/21 12:46 Pain Scale Pain Intensity 4 - Physical Exam General Appearance: no apparent distress, alert Eye Exam: PERRL/EOMI Ears, Nose, Throat Exam: normal ENT inspection, pharynx normal Neck Exam: normal inspection, full range of motion Respiratory Exam: normal breath sounds, lungs clear Cardiovascular Exam: normal heart sounds, tachycardia Gastrointestinal/Abdomen Exam: soft, tenderness (Upper abdomen, periumbilical and right side with guarding without rebound tenderness. Ostomy bag well applied.), No normal bowel sounds Extremity Exam: normal inspection Neurologic Exam: alert, oriented x 3, cooperative Skin Exam: normal color SpO2 Interpretation: normal SpO2: 98 O2 Delivery: Room Air Ordered Tests: Active Orders 24 hr Category Date Time Status IV Insertion STAT Care 08/15/21 13:51 Active NPO (ED) STAT Care 08/15/21 13:51 Active ABDOMEN AND PELVIS W/0 CONTRAS [CT] Stat Exams 08/15/21 13:52 Completed CBC W DIFF Stat Lab 08/15/21 14:01 Completed CMP Stat Lab 08/15/21 14:01 Completed LIPASE Stat Lab 08/15/21 14:01 Completed Lactic Acid Stat Lab 08/15/21 14:05 Completed UA W/RFX UR CULTURE Stat Lab 08/15/21 16:49 Received Medication Summary Discontinued Medications Generic Name Dose Route Start Last Admin Trade Name Freq PRN Reason Stop Dose Admin Sodium Chloride 500 mls @ 500 mls/hr 08/15/21 13:56 08/15/21 16:11 Sodium Chloride 0.9% 500 Ml IV 08/15/21 14:55 Infused .Q1H ONE Infusion Sodium Chloride Confirm 08/15/21 14:25 Sodium Chloride 0.9% 500 Ml Administered 08/15/21 14:26 Dose 500 mls @ ud IV .STK-MED ONE Morphine Sulfate 4 mg 08/15/21 13:51 08/15/21 14:33 Morphine Sulfate 4 Mg/Ml Injection IV 08/15/21 13:52 4 mg STAT ONE Administration Morphine Sulfate Confirm 08/15/21 14:25 Morphine Sulfate 4 Mg/Ml Injection Administered 08/15/21 14:26 Dose 4 mg .ROUTE .STK-MED ONE Ondansetron HCl 4 mg 08/15/21 13:51 08/15/21 14:33 Ondansetron Hcl 4 Mg/2 Ml Vial IV 08/15/21 13:52 4 mg STAT ONE Administration Ondansetron HCl Confirm 08/15/21 14:25 Ondansetron Hcl 4 Mg/2 Ml Vial Administered 08/15/21 14:26 Dose 4 mg .ROUTE .STK-MED ONE Ondansetron HCl 4 mg 08/15/21 15:43 08/15/21 15:56 Ondansetron Hcl 4 Mg/2 Ml Vial IV 08/15/21 15:44 4 mg STAT ONE Administration Ondansetron HCl Confirm 08/15/21 15:44 Ondansetron Hcl 4 Mg/2 Ml Vial Administered 08/15/21 15:45 Dose 4 mg .ROUTE .STK-MED ONE Lab/Rad Data: Laboratory Result Diagrams 08/15/21 14:01 08/15/21 14:01 Laboratory Results 08/15/21 08/15/21 08/15/21 Range/Units 14:05 14:01 14:01 WBC 7.2 (4.0-10.5) K/mm3 RBC 3.73 L (4.1-5.4) M/mm3 Hgb 10.2 L (12.0-16.0) gm/dl Hct 33.5 L (35-47) % MCV 89.8 (78-100) fl MCH 27.3 (26-32) pg MCHC 30.4 L (32-36) g/dl RDW 15.4 H (11.5-14.0) % Plt Count 254 (150-450) K/mm3 MPV 9.1 (7.5-11.0) fl Gran % 67.6 H (36.0-66.0) % Eos # (Auto) 0.15 (0-0.5) Absolute Lymphs (auto) 1.55 (1.0-4.6) Absolute Monos (auto) 0.59 (0.0-1.3) Lymphocytes % 21.4 L (24.0-44.0) % Monocytes % 8.2 (0.0-12.0) % Eosinophils % 2.1 (0.00-5.0) % Basophils % 0.7 (0.0-0.4) % Absolute Granulocytes 4.89 (1.4-6.9) Basophils # 0.05 (0-0.4) Sodium 140 (137-145) mmol/L Potassium 4.6 (3.5-5.1) mmol/L Chloride 107 (98-107) mmol/L Carbon Dioxide 24 (22-30) mmol/L Anion Gap 14.2 (5-15) MEQ/L BUN 29 H (7-17) mg/dL Creatinine 1.48 H (0.52-1.04) mg/dL Estimated GFR 37.6 ML/MIN Glucose 86 (74-106) mg/dL Lactic Acid 1.0 (0.4-2.0) Calcium 9.1 (8.4-10.2) mg/dL Total Bilirubin 0.60 (0.2-1.3) mg/dL AST 23 (14-36) U/L ALT 8 (0-35) U/L Alkaline Phosphatase 122 (38-126) U/L Serum Total Protein 8.0 (6.3-8.2) g/dL Albumin 4.3 (3.5-5.0) g/dL Lipase 130 (23-300) U/L - Progress Progress: improved Progress Note: 08/15/21 17:56 Given symptomatic treatment for pain and gentle hydration, grossly unremarkable work-up. CKD stable. Obtain CT which ruled out obstruction. I believe patient has constipation because of taking narcotics regularly. Recommended decreasing dose of narcotics and outpatient follow-up with general surgery as recommended.daily stool softener 08/15/21 17:57 Counseled pt/family regarding: lab results, diagnosis, need for follow-up, rad results - Departure Departure Disposition: Home Clinical Impression: Right sided abdominal pain, Constipation Condition: Stable Critical Care Time: No Referrals: WAQAR CASTRO [Primary Care Provider] - Follow Up with PCP/3 days SHEREEN ALFARO MD [ACTIVE STAFF] - Follow up/PCP as directed (Call tomorrow for reevaluation) Instructions: Acute Abdomen (Belly Pain) Additional Instructions: Drink plenty of fluids, take daily MiraLAX/stool softener. Decreased dose of morphine. Follow-up with primary care/general surgery for reevaluation. Return to ER for intractable pain/vomiting/fever chills etc.
[2021-08-15 14:09] LABS: Absolute Neutrophil Ct (ANC) 4.89 (1.4-6.9); Basophil (Absolute #) 0.05 (0-0.4); Eosinophil % 2.1 % (0.00-5.0); Eosinophil (Absolute #) 0.15 (0-0.5); Hematocrit 33.5 % (35-47); Hemoglobin 10.2 gm/dl (12.0-16.0); Lymphocyte (Absolute #) 1.55 (1.0-4.6); Lymphocytes % 21.4 % (24.0-44.0); Mean Cell Volume 89.8 fl (78-100); Mean Corpuscular Hemoglobin 27.3 pg (26-32); Mean Corpuscular Hgb Concent. 30.4 g/dl (32-36); Mean Platelet Volume 9.1 fl (7.5-11.0); Monocyte (Absolute #) 0.59 (0.0-1.3); Monocytes % 8.2 % (0.0-12.0); Neutrophil % 67.6 % (36.0-66.0); Platelet Count 254 K/mm3 (150-450); Red Blood Count 3.73 M/mm3 (4.1-5.4); Red Cell Distribution Width 15.4 % (11.5-14.0); White Blood Count 7.2 K/mm3 (4.0-10.5)
[2021-08-15 14:17] LABS: ALBUMIN 4.3 g/dL (3.5-5.0); ANION GAP 14.2 MEQ/L (5-15); BILIRUBIN,TOTAL 0.6 mg/dL (0.2-1.3); Calcium 9.1 mg/dL (8.4-10.2); Creatinine 1 1.48 mg/dL (0.52-1.04); EST GLOMERULAR FILTRATION RATE 37.6 ML/MIN; Potassium 4.6 mmol/L (3.5-5.1)
[2021-08-15] MEDS ORDERED: Sodium Chloride 0.9% 500 ML 500 ML IV ONE (14:25)
[2021-08-15] MEDS ORDERED: MORPHINE SULFATE 4 MG INJ ONE (14:25)
[2021-08-15] MEDS ORDERED: Zofran 4 MG/2 ML VIAL ONE ×2 (14:25→15:44)
[2021-08-15] MEDS: Zofran 4 MG/2 ML VIAL IV ONE ×2 (14:33→15:56)
[2021-08-15] MEDS: MORPHINE SULFATE 4 MG INJ IV ONE (14:33)
[2021-08-15] MEDS: Sodium Chloride 0.9% 500 ML 500 ML IV ONE (14:34)
--- NOTE | 2021-08-15 17:21 | XRAY ---
Indication: Abdomen pain. Constipation. Multiple contiguous axial images obtained through the abdomen and pelvis without IV contrast. Enteric contrast used. Comparison: July 30, 2021. Lung bases again demonstrates scattered fibrosis/scarring and cardiomegaly. Contrasted stomach and bowel loops remain nonobstructed. The remains right lower quadrant colostomy with loop of small bowel herniating through ventral wall defect without complications. Again total colectomy with intact rectal stump. No free fluid/air. Stable epigastric surgical clips, cholecystectomy, hysterectomy, IVC filter, and stent grafts in the IVC/common iliac/external iliac veins bilaterally. Also stable left renal small [id number] cortical calcifications. Remaining liver, pancreas, spleen, adrenal glands, kidneys, ureters, and bladder are unremarkable. Again minimal aortoiliac calcifications without AAA. Impression: Continued nonobstructed abdomen. Grossly stable postsurgical changes, IVC filter, multiple venous stent grafts, left renal cortical calcifications, and cardiomegaly. No new/acute findings.
[2021-08-15 17:56] LABS: Appearance CLEAR (CLEAR); Bilirubin NEGATIVE (NEGATIVE); Glucose NEGATIVE (NEGATIVE)
[2021-08-15 17:57] LABS: Dipstick done @ ? MAIN LAB; Ketones NEGATIVE (NEGATIVE); Nitrite NEGATIVE (NEGATIVE); Protein,Urine Dip NEGATIVE (Negative); RBC NEGATIVE Ery/ul (0-5); Specific Gravity >=1.030 (1.005-1.025); Urobilinogen 0.2 mg/dL (0-1)
[2021-08-15 18:03] VITALS: BP 119/80; PULSE 92; O2SAT 95
[2021-08-15 18:06] LABS: Epithelial Cells RARE /HPF (FEW); Mucus SLIGHT /HPF (NEGATIVE); RBC 26-50 /HPF (0-2); WBC 51-100 /HPF (0-5)
[2021-08-15 18:07] LABS: Budding Yeast Rare /HPF (NEGATIVE); Urine Cultured Indicated? YES
== END 2021-08-15 18:09 | disposition home or self-care (01) ==
LOC: ED 12:33
DX: K59.00 Constipation, unspecified (principal); R10.11 Right upper quadrant pain; R10.31 Right lower quadrant pain; Z93.2 Ileostomy status; R11.0 Nausea; I50.9 Heart failure, unspecified; I11.0 Hypertensive heart disease with heart failure; E78.5 Hyperlipidemia, unspecified; K21.9 Gastro-esophageal reflux disease without esophagitis; Z79.52 Long term (current) use of systemic steroids; Z79.891 Long term (current) use of opiate analgesic; Z79.899 Other long term (current) drug therapy
CPT/HCPCS: 36000; 36415; 74176; 80053; 81015; 83605; 83690; 85025; 87086; 96374; 96375; 96376; 99284; J1642; J2270; J2405

== ENCOUNTER 2021-11-23 14:02 | Observation (INO) | payer MEDICARE ==
--- NOTE | 2021-11-23 14:36 | XRAY ---
Indication: Confusion. Stroke. Multiple contiguous axial images obtained through the head without contrast. Comparison: March 16, 2021. Again age-appropriate global atrophy, moderate periventricular degenerative micro-ischemia bilaterally, old left posterior parietal infarct, and old right occipital lobe infarct. New finding small old infarcts posterior right parietal and anterior left parietal lobes. No acute intracranial hemorrhage, hydrocephalus, or mass effect. Fourth ventricle is midline. Bony calvarium intact. Visualized paranasal sinuses and mastoid air cells are clear. Impression: Again nonacute senile brain with multifocal old bilateral infarcts, increased in number since last exam.
[2021-11-23 15:19] LABS: Absolute Neutrophil Ct (ANC) 3.44 x10^3/uL (1.4-6.9); Basophil (Absolute #) 0.05 x10^3/uL (0-0.4); Eosinophil % 2.5 % (0.00-5.0); Eosinophil (Absolute #) 0.16 x10^3/uL (0-0.5); Hematocrit 34.6 % (35-47); Hemoglobin 10.7 g/dL (12.0-16.0); Lymphocytes % 33.4 % (24.0-44.0); Mean Cell Volume 89.6 fL (78-100); Mean Corpuscular Hemoglobin 27.7 pg (26-32); Mean Corpuscular Hgb Concent. 30.9 g/dL (32-36); Mean Platelet Volume 9.6 fL (7.5-11.0); Monocyte (Absolute #) 0.51 x10^3/uL (0.0-1.3); Monocytes % 8.1 % (0.0-12.0); Neutrophil % 54.9 % (36.0-66.0); Platelet Count 212 x10^3/uL (150-450); Red Blood Count 3.86 x10^6/uL (4.1-5.4); Red Cell Distribution Width 15.9 % (11.5-14.0); White Blood Count 6.3 x10^3/uL (4.0-10.5)
[2021-11-23] MEDS ORDERED: Narcan 0.4 MG/ML IV ONE ×2 (15:24→19:29)
[2021-11-23] MEDS ORDERED: Narcan 0.4 MG/ML ONE ×2 (15:25→19:38)
[2021-11-23 15:32] LABS: PROTIME 10.6 SECONDS (9.4-12.5); PTT 22.8 SECONDS (25.1-36.5)
[2021-11-23 15:45] LABS: ALBUMIN 4.3 g/dL (3.5-5.0); ANION GAP 14.5 MEQ/L (5-15); BILIRUBIN,TOTAL 0.6 mg/dL (0.2-1.3); Calcium 9.3 mg/dL (8.4-10.2); Creatinine 1 1.51 mg/dL (0.52-1.04); EST GLOMERULAR FILTRATION RATE 36.8 ML/MIN; Potassium 4.5 mmol/L (3.5-5.1); Total Protein 8.1 g/dL (6.3-8.2)
[2021-11-23] MEDS ORDERED: Zofran 4 MG/2 ML VIAL ONE (16:14)
[2021-11-23] MEDS ORDERED: Zofran 4 MG/2 ML VIAL IV ONE (16:16)
--- NOTE | 2021-11-23 16:27 | ERPHSYRPT ---
- History of Present Illness Source: other () Exam Limitations: clinical condition Patient Subjective Stated Complaint: brought pt to the ER due to pt being confused and couldn't stand since 0530 this AM Triage Nursing Assessment: Pt brought to the ER by her , vitals wnl, rates pain as 5/10 where they replaced her port last week, pulses normal, leth argic and continues to fall asleep and can not answer questions, unable to follow commands on [facility], pt states that she has not taken any medications today, unsure if she slept during the night because he heard her up, pt unable to lift left eye brow and her left side of face is drooping, pt unable to touch her nose and then the nurses finger with either hand Physician History: 66 yo wf w multiple medical problems presents to ER per w lethargy/confusion since 4:30AM. states that she has had no focal weakness/fever/head injury/N/V/D/melena/hematochezia/dysuria/hematuria/chest pain/abdominal pain/new meds. She recently had a port placed in her L subclavian vein. Pt does take Morphine daily for chronic pain. she has good sats and has a very good airway. Timing/Duration: other (4:30AM) Severity: moderate Character of Deficits: new weakness Deficits: weak Baseline/Normal Cognition: alert oriented x 3 Current Cognition: poor alertness (lethargic/Oriented to name-place only) Baseline Gait: walks w/o assistance Associated Symptoms: confusion, weakness, trouble walking, No fever, No chills, No loss of consciousness, No nausea, No vomiting, No insomnia, No muscle spasms, No numbness/tingling in legs/feet, No paresthesia, No ringing in ears, No seizures, No slurred speech, No vision changes, No chest pain, No headache Allergies/Adverse Reactions: adhesive Allergy (Mild, Verified 11/23/21 14:58) Blisters codeine [Codeine] Allergy (Mild, Verified 11/23/21 14:58) Nausea and Vomiting Sulfa (Sulfonamide Antibiotics) [Sulfa(Sulfonamide Antibiotics)] Allergy (Mild, Verified 11/23/21 14:58) Nausea and Vomiting iron Adverse Reaction (Intermediate, Verified 11/23/21 14:58) Nausea oxycodone [From Percocet] Adverse Reaction (Intermediate, Verified 11/23/21 14:58) Vomiting Home Medications: Tizanidine HCl 6 mg PO TID PRN PRN 11/10/17 [History] Furosemide [Lasix] 40 mg PO DAILY PRN PRN 03/09/18 [History] Promethazine HCl 25 mg [Phenergan 25 mg] 25 mg PO Q6H PRN PRN 01/14/19 [History] Levothyroxine Sodium [Synthroid] 300 mcg PO BID 04/29/19 [History] Nitroglycerin 0.4 mg SL Q5MIN PRN MR X 3 PRN 04/29/19 [History] Metoprolol Succinate 50 mg PO BID 09/20/19 [History] PANTOPRAZOLE 40 mg Tablet [Protonix 40MG Tablet] 1 tab PO DAILY 02/10/21 [History] Hydrocortisone 1% Cream [Cortisone 1% Cream] 1 gm TP TID PRN PRN 06/20/21 [History] Amiodarone HCl 200 mg [Cordarone 200 MG] 100 mg PO DAILY 07/30/21 [History] Morphine Sulfate [Morphine Sulfate ER] 30 mg PO BID 07/30/21 [History] Hx Tetanus, Diphtheria Vaccination/Date Given: Yes Hx Influenza Vaccination/Date Given: Yes Hx Pneumococcal Vaccination/Date Given: No Travel Risk - International Travel Have you traveled outside of the country in past 3 weeks: No - Coronavirus Screening Are you exhibiting any of the following symptoms?: No Close contact with a COVID-19 positive Pt in past 14-21 Days: No - Vaccine Status Have you recieved a Covid-19 vaccination: No - Review of Systems Constitutional: No Symptoms Eyes: No Symptoms Ears, Nose, & Throat: No Symptoms Respiratory: No Symptoms Cardiac: No Symptoms Abdominal/Gastrointestinal: No Symptoms Genitourinary Symptoms: No Symptoms Musculoskeletal: No Symptoms Skin: No Symptoms Neurological: Lethargy, No Dizziness, No Focal Weakness, No Gait Changes, No Headache, No Irritability, No Paralysis, No Parasthesia, No Seizure, No Sensory Changes, No Speech Changes, No Tics, No Tremors, No Vertigo Psychological: No Symptoms Endocrine: No Symptoms Hematologic/Lymphatic: No Symptoms Immunological/Allergic: No Symptoms - Past Medical History Pertinent Past Medical History: Yes Neurological History: Migraines, Stroke ENT History: No Pertinent History Cardiac History: Angina, Arrhythmia, Congestive Heart Failure, Coronary Artery Disease, Deep Vein Thrombosis, Other Respiratory History: Asthma Endocrine Medical History: Hypothyroidism, Thyroid Cancer Musculoskeletal History: Other GI Medical History: GERD, Hernia, Other History: Renal Disease, Other Psycho-Social History: No Pertinent History Female Reproductive Disorders: Endometriosis Other Medical History: HX Cardiac Arrest, HX Thyroid Removal, HX Back pain. HX A-Fib. Pre diabetic - Past Surgical History Past Surgical History: Yes Neuro Surgical History: No Pertinent History Cardiac: Cardiac Catheterization, Internal Defibrillator, Pacemaker, Other Respiratory: No Pertinent History Gastrointestinal: Appendectomy, Cholecystectomy, Colon Resection, Hernia Repair, Other Genitourinary: No Pertinent History Musculoskeletal: Orthopedic Surgery Female Surgical History: Hysterectomy Other Surgical History: THYROID REMOVED and Parotid gland removed; 40% and 50% blockages found with last heart cath about 4 years ago. ankle surgery d/t break,ileostomy, CVL port removed and replaced, Port placed. HX ostomy repair due to blockage 09/02, back surgery and 4 I&D september and october and november 2017. 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 TLIF fused discs in back. OCTOBER 2018 CAROTIDECTOMY AND LYMPH NODE REMOVAL ON RIGHT SIDE. Right Parotid gland removed. "filter for blood clots 2018" - Social History Smoking Status: Never smoker Exposure to second hand smoke: No Alcohol Use: None Drug Use: none Patient Lives Alone: No Significant Family History: heart disease, cancer, diabetes - Nursing Vital Signs Nursing Vital Signs: Initial Vital Signs Temperature 97.5 F 11/23/21 14:24 Pulse Rate 70 11/23/21 14:24 Blood Pressure 126/83 11/23/21 14:24 O2 Sat by Pulse Oximetry 98 11/23/21 14:24 Pain Scale Pain Intensity 0 WNL - [place] Coma Scale Best Eye Response ([place]): (3) open to voice Best Verbal Response ([place]): (4) confused conversation Best Motor Response ([place]): (6) obeys commands [place] Total: 13 - Physical Exam General Appearance: no apparent distress, lethargy Eye Exam: bilateral eye: normal inspection, PERRL, EOMI Ears, Nose, Throat Exam: normal ENT inspection, TMs normal, pharynx normal, moist mucous membranes Neck Exam: normal inspection, non-tender, supple, full range of motion, No meni ngismus, No mass, No Brudzinski, No Kernig's Respiratory: normal breath sounds, lungs clear, airway intact, No respiratory distress Cardiovascular: regular rate/rhythm, normal heart sounds, normal peripheral pulses, capillary refill <2 sec, No murmur Gastrointestinal: soft, normal bowel sounds, No tenderness Back Exam: normal inspection, normal range of motion, No CVA tenderness, No vertebral tenderness Extremity Exam: normal inspection, normal range of motion Peripheral Pulses: carotid (R): 2+, carotid (L): 2+ Mental Status: cooperative, depressed affect, disoriented to time, 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: normal hearing, normal speech, PERRL, tongue midline, No abnormal eye position, No abnormal gag reflex, No abnormal pupil position, No abnormal speech, No facial asymmetry, No facial droop, No facial paresthesias, No facial weakness, No hearing deficit (R), No hearing deficit (L), No tongue deviation to R, No tongue deviation to L Motor/Sensory: no motor deficit, no sensory deficit, negative Babinski's sign DTR: bicep (R): 2+, bicep (L): 2+, knee (R): 2+, knee (L): 2+ Skin Exam: normal color, warm, dry, No rash SpO2 Interpretation: normal SpO2: 99 O2 Delivery: Room Air - Course Nursing assessment & vital signs reviewed: Yes EKG Interpreted by Me: RATE (Rate 70/Paced/IVCD due to pacing) - CT Exams Head CT Interpretation: Discussed w/radiologist (B old infarcts/Nothing acute) Ordered Tests: Active Orders 24 hr Category Date Time Status Bedrest ROUTINE Activity 11/23/21 18:01 Active Code Status Order ROUTINE Care 11/23/21 18:00 Active EKG-ER Only STAT Care 11/23/21 14:34 Active IV Care Q6H Care 11/23/21 18:00 Active Neuro Checks Q4H Care 11/23/21 17:[address] in Observation ROUTINE Care 11/23/21 18:00 Active Vital Signs Q4H Care 11/23/21 17:59 Active Clear Liquid Diet 11/23/21 Breakfast Active HEAD WITHOUT CONTRAST [CT] Stat Exams 11/23/21 14:13 Completed Alcohol [ETHYL ALCOHOL] Stat Lab 11/23/21 15:10 Completed CBC W DIFF AM.LAB Lab 11/24/21 04:00 Ordered CBC W DIFF Stat Lab 11/23/21 14:33 Completed CMP AM.LAB Lab 11/24/21 04:00 Ordered CMP Stat Lab 11/23/21 15:10 Completed Lactic Acid Stat Lab 11/23/21 15:12 Completed PROTIME WITH INR Stat Lab 11/23/21 15:10 Completed PTT Stat Lab 11/23/21 15:10 Completed TROPONIN Q3H Lab 11/23/21 15:10 Completed TROPONIN Q3H Lab 11/23/21 17:40 Completed TROPONIN Q3H Lab 11/24/21 02:45 Ordered UA W/RFX CULTURE Stat Lab 11/23/21 16:41 Completed Urine Triage Profile Stat Lab 11/23/21 16:00 Completed Transfer Order Routine Transfer 11/23/21 Ordered Medication Summary Generic Name Dose Route Start Last Admin Trade Name Freq PRN Reason Stop Dose Admin Sodium Chloride 1,000 mls @ 100 mls/hr 11/23/21 18:00 Sodium Chloride 0.9% 1000 Ml IV 12/23/21 17:59 .Q10H JUSTIN Sodium Chloride 1,000 mls @ 999 mls/hr 11/23/21 18:03 11/23/21 18:04 Sodium Chloride 0.9% 1000 Ml IV 11/23/21 19:03 999 mls/hr .Q1H1M STA Administration Ondansetron HCl 4 mg 11/23/21 17:59 Ondansetron Hcl 4 Mg/2 Ml Vial IV 12/23/21 17:58 Q6H PRN PRN NAUSEA/VOMITING Pantoprazole Sodium 40 mg 11/24/21 10:00 Pantoprazole 40 Mg Vial IV 12/24/21 09:59 Q24H10 JUSTIN Discontinued Medications Generic Name Dose Route Start Last Admin Trade Name Freq PRN Reason Stop Dose Admin Naloxone HCl 0.4 mg 11/23/21 15:24 11/23/21 15:31 Naloxone Hcl 0.4 Mg/Ml Ml IV 11/23/21 15:25 0.4 mg STAT ONE Administration Naloxone HCl Confirm 11/23/21 15:25 Naloxone Hcl 0.4 Mg/Ml Ml Administered 11/23/21 15:26 Dose 0.4 mg .ROUTE .STK-MED ONE Ondansetron HCl 4 mg 11/23/21 16:16 11/23/21 16:17 Ondansetron Hcl 4 Mg/2 Ml Vial IV 11/23/21 16:17 4 mg STAT ONE Administration Ondansetron HCl Confirm 11/23/21 16:14 Ondansetron Hcl 4 Mg/2 Ml Vial Administered 11/23/21 16:15 Dose 4 mg .ROUTE .STK-MED ONE Lab/Rad Data: Laboratory Result Diagrams 11/23/21 14:33 11/23/21 15:10 Laboratory Results 11/23/21 11/23/21 11/23/21 Range/Units 17:40 16:41 16:35 WBC (4.0-10.5) x10^3/uL RBC (4.1-5.4) x10^6/uL Hgb (12.0-16.0) g/dL Hct (35-47) % MCV (78-100) fL MCH (26-32) pg MCHC (32-36) g/dL RDW (11.5-14.0) % Plt Count (150-450) x10^3/uL MPV (7.5-11.0) fL Gran % (36.0-66.0) % Immature Gran % (Auto) (0.00-0.4) % Nucleat RBC Rel Count (0.00-0.1) % Eos # (Auto) (0-0.5) x10^3/uL Immature Gran # (Auto) (0.00-0.03) x10^3u/L Absolute Lymphs (auto) (1.0-4.6) x10^3/uL Absolute Monos (auto) (0.0-1.3) x10^3/uL Absolute Nucleated RBC (0.00-0.01) x10^3u/L Lymphocytes % (24.0-44.0) % Monocytes % (0.0-12.0) % Eosinophils % (0.00-5.0) % Basophils % (0.0-0.4) % Absolute Granulocytes (1.4-6.9) x10^3/uL Basophils # (0-0.4) x10^3/uL PT (9.4-12.5) SECONDS INR (0.8-3.0) APTT (25.1-36.5) SECONDS Sodium (137-145) mmol/L Potassium (3.5-5.1) mmol/L Chloride (98-107) mmol/L Carbon Dioxide (22-30) mmol/L Anion Gap (5-15) MEQ/L BUN (7-17) mg/dL Creatinine (0.52-1.04) mg/dL Estimated GFR ML/MIN Glucose (74-106) mg/dL Lactic Acid (0.4-2.0) Calcium (8.4-10.2) mg/dL Total Bilirubin (0.2-1.3) mg/dL AST (14-36) U/L ALT (0-35) U/L Alkaline Phosphatase (38-126) U/L Troponin I < 0.012 (0.000-0.034) ng/mL Serum Total Protein (6.3-8.2) g/dL Albumin (3.5-5.0) g/dL Urinalys Dipstick Clnc MAIN LAB Urine Color YELLOW (YELLOW) Urine Appearance CLEAR (CLEAR) Urine pH 5.0 (5-6) Ur Specific Remlap >=1.030 (1.005-1.025) POC Urine Protein Conf NEGATIVE (Negative) Urine Ketones NEGATIVE (NEGATIVE) Urine Nitrite NEGATIVE (NEGATIVE) Urine Bilirubin NEGATIVE (NEGATIVE) Urine Urobilinogen 0.2 (0-1) mg/dL Urine Leukocytes NEGATIVE (NEGATIVE) Urine WBC (Auto) 0-2 (0-5) /HPF Urine RBC (Auto) NONE (0-2) /HPF U Epithel Cells (Auto) RARE (FEW) /HPF Urine RBC NEGATIVE (0-5) Hemal/ul Urine Mucus (Auto) SLIGHT (NEGATIVE) /HPF Ur Culture Indicated? NO Urine Glucose NEGATIVE (NEGATIVE) mg/dL Urine Opiates Level (NEGATIVE) Ur Methadone (NEGATIVE) Urine Barbiturates (NEGATIVE) Ur Phencyclidine (PCP) (NEGATIVE) Urine Amphetamine (NEGATIVE) U Benzodiazepine Level (NEGATIVE) Urine Cocaine (NEGATIVE) Urine Marijuana (THC) (NEGATIVE) Ethyl Alcohol (0-10) mg/dL Influenza Type A Ag NEGATIVE (NEGATIVE) Influenza Type B Ag NEGATIVE (NEGATIVE) RSV (PCR) NEGATIVE (Negative) SARS-CoV-2 (PCR) NEGATIVE (NEGATIVE) 11/23/21 11/23/21 11/23/21 Range/Units 16:00 15:12 15:10 WBC (4.0-10.5) x10^3/uL RBC (4.1-5.4) x10^6/uL Hgb (12.0-16.0) g/dL Hct (35-47) % MCV (78-100) fL MCH (26-32) pg MCHC (32-36) g/dL RDW (11.5-14.0) % Plt Count (150-450) x10^3/uL MPV (7.5-11.0) fL Gran % (36.0-66.0) % Immature Gran % (Auto) (0.00-0.4) % Nucleat RBC Rel Count (0.00-0.1) % Eos # (Auto) (0-0.5) x10^3/uL Immature Gran # (Auto) (0.00-0.03) x10^3u/L Absolute Lymphs (auto) (1.0-4.6) x10^3/uL Absolute Monos (auto) (0.0-1.3) x10^3/uL Absolute Nucleated RBC (0.00-0.01) x10^3u/L Lymphocytes % (24.0-44.0) % Monocytes % (0.0-12.0) % Eosinophils % (0.00-5.0) % Basophils % (0.0-0.4) % Absolute Granulocytes (1.4-6.9) x10^3/uL Basophils # (0-0.4) x10^3/uL PT (9.4-12.5) SECONDS INR (0.8-3.0) APTT (25.1-36.5) SECONDS Sodium (137-145) mmol/L Potassium (3.5-5.1) mmol/L Chloride (98-107) mmol/L Carbon Dioxide (22-30) mmol/L Anion Gap (5-15) MEQ/L BUN (7-17) mg/dL Creatinine (0.52-1.04) mg/dL Estimated GFR ML/MIN Glucose (74-106) mg/dL Lactic Acid 0.7 (0.4-2.0) Calcium (8.4-10.2) mg/dL Total Bilirubin (0.2-1.3) mg/dL AST (14-36) U/L ALT (0-35) U/L Alkaline Phosphatase (38-126) U/L Troponin I (0.000-0.034) ng/mL Serum Total Protein (6.3-8.2) g/dL Albumin (3.5-5.0) g/dL Urinalys Dipstick Clnc Urine Color (YELLOW) Urine Appearance (CLEAR) Urine pH (5-6) Ur Specific Remlap (1.005-1.025) POC Urine Protein Conf (Negative) Urine Ketones (NEGATIVE) Urine Nitrite (NEGATIVE) Urine Bilirubin (NEGATIVE) Urine Urobilinogen (0-1) mg/dL Urine Leukocytes (NEGATIVE) Urine WBC (Auto) (0-5) /HPF Urine RBC (Auto) (0-2) /HPF U Epithel Cells (Auto) (FEW) /HPF Urine RBC (0-5) Hemal/ul Urine Mucus (Auto) (NEGATIVE) /HPF Ur Culture Indicated? Urine Glucose (NEGATIVE) mg/dL Urine Opiates Level POSITIVE (NEGATIVE) Ur Methadone NEGATIVE (NEGATIVE) Urine Barbiturates NEGATIVE (NEGATIVE) Ur Phencyclidine (PCP) NEGATIVE (NEGATIVE) Urine Amphetamine NEGATIVE (NEGATIVE) U Benzodiazepine Level NEGATIVE (NEGATIVE) Urine Cocaine NEGATIVE (NEGATIVE) Urine Marijuana (THC) NEGATIVE (NEGATIVE) Ethyl Alcohol < 10 (0-10) mg/dL Influenza Type A Ag (NEGATIVE) Influenza Type B Ag (NEGATIVE) RSV (PCR) (Negative) SARS-CoV-2 (PCR) (NEGATIVE) 11/23/21 11/23/21 11/23/21 Range/Units 15:10 15:10 15:10 WBC (4.0-10.5) x10^3/uL RBC (4.1-5.4) x10^6/uL Hgb (12.0-16.0) g/dL Hct (35-47) % MCV (78-100) fL MCH (26-32) pg MCHC (32-36) g/dL RDW (11.5-14.0) % Plt Count (150-450) x10^3/uL MPV (7.5-11.0) fL Gran % (36.0-66.0) % Immature Gran % (Auto) (0.00-0.4) % Nucleat RBC Rel Count (0.00-0.1) % Eos # (Auto) (0-0.5) x10^3/uL Immature Gran # (Auto) (0.00-0.03) x10^3u/L Absolute Lymphs (auto) (1.0-4.6) x10^3/uL Absolute Monos (auto) (0.0-1.3) x10^3/uL Absolute Nucleated RBC (0.00-0.01) x10^3u/L Lymphocytes % (24.0-44.0) % Monocytes % (0.0-12.0) % Eosinophils % (0.00-5.0) % Basophils % (0.0-0.4) % Absolute Granulocytes (1.4-6.9) x10^3/uL Basophils # (0-0.4) x10^3/uL PT 10.6 (9.4-12.5) SECONDS INR 1.00 (0.8-3.0) APTT 22.8 L (25.1-36.5) SECONDS Sodium 140 (137-145) mmol/L Potassium 4.5 (3.5-5.1) mmol/L Chloride 108 H (98-107) mmol/L Carbon Dioxide 22 (22-30) mmol/L Anion Gap 14.5 (5-15) MEQ/L BUN 30 H (7-17) mg/dL Creatinine 1.51 H (0.52-1.04) mg/dL Estimated GFR 36.8 ML/MIN Glucose 87 (74-106) mg/dL Lactic Acid (0.4-2.0) Calcium 9.3 (8.4-10.2) mg/dL Total Bilirubin 0.60 (0.2-1.3) mg/dL AST 22 (14-36) U/L ALT 7 (0-35) U/L Alkaline Phosphatase 125 (38-126) U/L Troponin I < 0.012 (0.000-0.034) ng/mL Serum Total Protein 8.1 (6.3-8.2) g/dL Albumin 4.3 (3.5-5.0) g/dL Urinalys Dipstick Clnc Urine Color (YELLOW) Urine Appearance (CLEAR) Urine pH (5-6) Ur Specific Remlap (1.005-1.025) POC Urine Protein Conf (Negative) Urine Ketones (NEGATIVE) Urine Nitrite (NEGATIVE) Urine Bilirubin (NEGATIVE) Urine Urobilinogen (0-1) mg/dL Urine Leukocytes (NEGATIVE) Urine WBC (Auto) (0-5) /HPF Urine RBC (Auto) (0-2) /HPF U Epithel Cells (Auto) (FEW) /HPF Urine RBC (0-5) Hemal/ul Urine Mucus (Auto) (NEGATIVE) /HPF Ur Culture Indicated? Urine Glucose (NEGATIVE) mg/dL Urine Opiates Level (NEGATIVE) Ur Methadone (NEGATIVE) Urine Barbiturates (NEGATIVE) Ur Phencyclidine (PCP) (NEGATIVE) Urine Amphetamine (NEGATIVE) U Benzodiazepine Level (NEGATIVE) Urine Cocaine (NEGATIVE) Urine Marijuana (THC) (NEGATIVE) Ethyl Alcohol (0-10) mg/dL Influenza Type A Ag (NEGATIVE) Influenza Type B Ag (NEGATIVE) RSV (PCR) (Negative) SARS-CoV-2 (PCR) (NEGATIVE) 11/23/21 Range/Units 14:33 WBC 6.3 (4.0-10.5) x10^3/uL RBC 3.86 L (4.1-5.4) x10^6/uL Hgb 10.7 L (12.0-16.0) g/dL Hct 34.6 L (35-47) % MCV 89.6 (78-100) fL MCH 27.7 (26-32) pg MCHC 30.9 L (32-36) g/dL RDW 15.9 H (11.5-14.0) % Plt Count 212 (150-450) x10^3/uL MPV 9.6 (7.5-11.0) fL Gran % 54.9 (36.0-66.0) % Immature Gran % (Auto) 0.3 (0.00-0.4) % Nucleat RBC Rel Count 0.0 (0.00-0.1) % Eos # (Auto) 0.16 (0-0.5) x10^3/uL Immature Gran # (Auto) 0.02 (0.00-0.03) x10^3u/L Absolute Lymphs (auto) 2.10 (1.0-4.6) x10^3/uL Absolute Monos (auto) 0.51 (0.0-1.3) x10^3/uL Absolute Nucleated RBC 0.00 (0.00-0.01) x10^3u/L Lymphocytes % 33.4 (24.0-44.0) % Monocytes % 8.1 (0.0-12.0) % Eosinophils % 2.5 (0.00-5.0) % Basophils % 0.8 (0.0-0.4) % Absolute Granulocytes 3.44 (1.4-6.9) x10^3/uL Basophils # 0.05 (0-0.4) x10^3/uL PT (9.4-12.5) SECONDS INR (0.8-3.0) APTT (25.1-36.5) SECONDS Sodium (137-145) mmol/L Potassium (3.5-5.1) mmol/L Chloride (98-107) mmol/L Carbon Dioxide (22-30) mmol/L Anion Gap (5-15) MEQ/L BUN (7-17) mg/dL Creatinine (0.52-1.04) mg/dL Estimated GFR ML/MIN Glucose (74-106) mg/dL Lactic Acid (0.4-2.0) Calcium (8.4-10.2) mg/dL Total Bilirubin (0.2-1.3) mg/dL AST (14-36) U/L ALT (0-35) U/L Alkaline Phosphatase (38-126) U/L Troponin I (0.000-0.034) ng/mL Serum Total Protein (6.3-8.2) g/dL Albumin (3.5-5.0) g/dL Urinalys Dipstick Clnc Urine Color (YELLOW) Urine Appearance (CLEAR) Urine pH (5-6) Ur Specific Remlap (1.005-1.025) POC Urine Protein Conf (Negative) Urine Ketones (NEGATIVE) Urine Nitrite (NEGATIVE) Urine Bilirubin (NEGATIVE) Urine Urobilinogen (0-1) mg/dL Urine Leukocytes (NEGATIVE) Urine WBC (Auto) (0-5) /HPF Urine RBC (Auto) (0-2) /HPF U Epithel Cells (Auto) (FEW) /HPF Urine RBC (0-5) Hemal/ul Urine Mucus (Auto) (NEGATIVE) /HPF Ur Culture Indicated? Urine Glucose (NEGATIVE) mg/dL Urine Opiates Level (NEGATIVE) Ur Methadone (NEGATIVE) Urine Barbiturates (NEGATIVE) Ur Phencyclidine (PCP) (NEGATIVE) Urine Amphetamine (NEGATIVE) U Benzodiazepine Level (NEGATIVE) Urine Cocaine (NEGATIVE) Urine Marijuana (THC) (NEGATIVE) Ethyl Alcohol (0-10) mg/dL Influenza Type A Ag (NEGATIVE) Influenza Type B Ag (NEGATIVE) RSV (PCR) (Negative) SARS-CoV-2 (PCR) (NEGATIVE) - Progress Progress: improved Progress Note: 11/23/21 18:40 Pt given 0.4mg IV Narcan w mild improvement in sensorium. Pt still somewhat lethargic which is most likely due to meds, although CVA not totally ruled out. Pt wo focal deficit w great airway. No evidence of infection/sepsis/nuchal rigidity. Admit per Dr. English. Discussed with : Ashlyn Counseled pt/family regarding: lab results, diagnosis, need for follow-up, rad results - Departure Departure Disposition: Observation Clinical Impression: Altered mental status, unspecified Condition: Stable Critical Care Time: No Referrals: WAQAR CASTRO [Primary Care Provider] - Follow up/PCP as directed
[2021-11-23 17:07] LABS: Epithelial Cells RARE /HPF (FEW); Mucus SLIGHT /HPF (NEGATIVE); WBC 0-2 /HPF (0-5)
[2021-11-23 17:09] LABS: Appearance CLEAR (CLEAR); Bilirubin NEGATIVE (NEGATIVE); Glucose NEGATIVE (NEGATIVE); Ketones NEGATIVE (NEGATIVE); Nitrite NEGATIVE (NEGATIVE); Protein,Urine Dip NEGATIVE (Negative); RBC NEGATIVE Ery/ul (0-5); Specific Gravity >=1.030 (1.005-1.025); Urobilinogen 0.2 mg/dL (0-1)
[2021-11-23 17:10] LABS: Dipstick done @ ? MAIN LAB; Urine Cultured Indicated? NO
[2021-11-23 17:12] LABS: Amphetamine,Urine NEGATIVE (NEGATIVE); Barbiturate,Urine NEGATIVE (NEGATIVE); Benzodiazepine,Urine NEGATIVE (NEGATIVE); Cocaine,Urine NEGATIVE (NEGATIVE); Methadone,Urine NEGATIVE (NEGATIVE); Opiate,Urine POSITIVE (NEGATIVE); PCP,Urine NEGATIVE (NEGATIVE); THC,Urine NEGATIVE (NEGATIVE)
[2021-11-23 17:21] LABS: INFLUENZA A NEGATIVE (NEGATIVE); INFLUENZA B NEGATIVE (NEGATIVE); RESPIRATORY SYNCTIAL VIRUS NEGATIVE (Negative); SARS-CoV-2 Xpert Express NEGATIVE (NEGATIVE)
[2021-11-23] MEDS ORDERED: Zofran 4 MG/2 ML VIAL IV PRN (17:59)
[2021-11-23] MEDS: Sodium Chloride 0.9% 1000 ML 1,000 ML IV SCH (18:03)
[2021-11-23] MEDS ORDERED: Sodium Chloride 0.9% 1000 ML 1,000 ML IV STA (18:03)
[2021-11-24] MEDS: Sodium Chloride 0.9% 1000 ML 1,000 ML IV SCH ×3 (04:00→14:49)
[2021-11-24 06:22] LABS: Absolute Neutrophil Ct (ANC) 3.17 x10^3/uL (1.4-6.9); Basophil (Absolute #) 0.05 x10^3/uL (0-0.4); Eosinophil % 2.8 % (0.00-5.0); Eosinophil (Absolute #) 0.16 x10^3/uL (0-0.5); Hematocrit 33.3 % (35-47); Hemoglobin 10.2 g/dL (12.0-16.0); Lymphocyte (Absolute #) 1.76 x10^3/uL (1.0-4.6); Lymphocytes % 31.3 % (24.0-44.0); Mean Cell Volume 88.8 fL (78-100); Mean Corpuscular Hemoglobin 27.2 pg (26-32); Mean Corpuscular Hgb Concent. 30.6 g/dL (32-36); Mean Platelet Volume 9.7 fL (7.5-11.0); Monocyte (Absolute #) 0.46 x10^3/uL (0.0-1.3); Monocytes % 8.2 % (0.0-12.0); Neutrophil % 56.4 % (36.0-66.0); Platelet Count 183 x10^3/uL (150-450); Red Blood Count 3.75 x10^6/uL (4.1-5.4); Red Cell Distribution Width 15.7 % (11.5-14.0); White Blood Count 5.6 x10^3/uL (4.0-10.5)
[2021-11-24 06:32] LABS: ALBUMIN 3.3 g/dL (3.5-5.0); ANION GAP 10.8 MEQ/L (5-15); BILIRUBIN,TOTAL 0.7 mg/dL (0.2-1.3); Calcium 8.5 mg/dL (8.4-10.2); Creatinine 1 1.1 mg/dL (0.52-1.04); Total Protein 6.7 g/dL (6.3-8.2)
--- NOTE | 2021-11-24 08:09 | PCM.HP ---
History of Present Illness - Chief Complaint Chief Complaint: AMS, WEAKNESS, PAIN History of Present Illness: is a 66 year old female with multiple medical problems presents to ER per w lethargy/confusion since 4:30AM. states that she has had no focal weakness/fever/head injury/N/V/D/melena/hematochezia/dysuria/hematuria/chest pain/abdominal pain/new meds. She recently had a port placed in her L subclavian vein. Pt does take Morphine daily for chronic pain. she has good sats and has a very good airway. Timing/Duration: other (4:30AM) Severity: moderate Character of Deficits: new weakness Deficits: weak Baseline/Normal Cognition: alert oriented x 3 Current Cognition: poor alertness (lethargic/Oriented to name-place only) Baseline Gait: walks w/o assistance Associated Symptoms: confusion, weakness, trouble walking, No fever, No chills, No loss of consciousness, No nausea, No vomiting, No insomnia, No muscle spasms, No numbness/tingling in legs/feet, No paresthesia, No ringing in ears, No seizures, No slurred speech, No vision changes, No chest pain, No headache. - Review of Systems Constitutional: Lethargy, Weakness, No Fever, No Chills Eyes: No Symptoms Ears, Nose, & Throat: No Symptoms Respiratory: No Cough, No Short Of Breath Cardiac: No Chest Pain, No Edema, No Syncope Abdominal/Gastrointestinal: No Abdominal Pain, No Nausea, No Vomiting, No Diarrhea Genitourinary Symptoms: No Dysuria Musculoskeletal: No Back Pain, No Neck Pain Skin: No Rash Neurological: No Dizziness, No Focal Weakness, No Sensory Changes Psychological: No Symptoms Endocrine: No Symptoms Hematologic/Lymphatic: No Symptoms Immunological/Allergic: No Symptoms Medications & Allergies Home Medications: Home Medication List Tizanidine HCl 6 mg PO TID PRN PRN 11/10/17 [History Confirmed 11/23/21] Furosemide [Lasix] 40 mg PO DAILY PRN PRN 03/09/18 [History Confirmed 11/23/21] Promethazine HCl 25 mg [Phenergan 25 mg] 25 mg PO Q6H PRN PRN 01/14/19 [History Confirmed 11/23/21] Levothyroxine Sodium [Synthroid] 300 mcg PO BID 04/29/19 [History Confirmed 11/23/21] Nitroglycerin 0.4 mg SL Q5MIN PRN MR X 3 PRN 04/29/19 [History Confirmed 11/23/21] Metoprolol Succinate 50 mg PO BID 09/20/19 [History Confirmed 11/23/21] Apixaban [Eliquis] 5 mg PO BID 1 Days 01/03/20 [Rx Confirmed 11/23/21] PANTOPRAZOLE 40 mg Tablet [Protonix 40MG Tablet] 1 tab PO DAILY 02/10/21 [History Confirmed 11/23/21] Hydrocortisone 1% Cream [Cortisone 1% Cream] 1 gm TP TID PRN PRN 06/20/21 [History Confirmed 11/23/21] Amiodarone HCl 200 mg [Cordarone 200 MG] 100 mg PO DAILY 07/30/21 [History Confirmed 11/23/21] Morphine Sulfate [Morphine Sulfate ER] 30 mg PO BID 07/30/21 [History Confirmed 11/23/21] Allergies/Adverse Reactions: Allergies Allergy/AdvReac Type Severity Reaction Status Date / Time adhesive Allergy Mild Blisters Verified 11/23/21 14:58 codeine [Codeine] Allergy Mild Nausea and Verified 11/23/21 14:58 Vomiting Sulfa (Sulfonamide Allergy Mild Nausea and Verified 11/23/21 14:58 Antibiotics) Vomiting [Sulfa(Sulfonamide Antibiotics)] iron AdvReac Intermediate Nausea Verified 11/23/21 14:58 oxycodone [From Percocet] AdvReac Intermediate Vomiting Verified 11/23/21 14:58 - Past Medical History Past Medical History: Yes Neurological History: Migraines, Stroke ENT History: No Pertinent History Cardiac History: Angina, Arrhythmia, Congestive Heart Failure, Coronary Artery Disease, Deep Vein Thrombosis, Other Respiratory History: Asthma Endocrine Medical History: Hypothyroidism, Thyroid Cancer Musculoskelatal History: Other GI Medical History: GERD, Hernia, Other History: Renal Disease, Other Pyscho-Social History: No Pertinent History Reproductive Disorders: Endometriosis Comment: HX Cardiac Arrest, HX Thyroid Removal, HX Back pain. HX A-Fib. Pre diabetic - Female History Are you now?: No - Past Surgical History Past Surgical History: Yes Neuro Surgical History: No Pertinent History Cardiac History: Cardiac Catheterization, Internal Defibrillator, Pacemaker, Other Respiratory Surgery: No Pertinent History GI Surgical History: Appendectomy, Cholecystectomy, Colon Resection, Hernia Repair, Other Genitourinary Surgical Hx: No Pertinent History Musculskeletal Surgical Hx: Orthopedic Surgery Female Surgical History: Hysterectomy Other Surgical History: THYROID REMOVED and Parotid gland removed; 40% and 50% blockages found with last heart cath about 4 years ago. ankle surgery d/t break,ileostomy, CVL port removed and replaced, Port placed. HX ostomy repair due to blockage 09/02, back surgery and 4 I&D september and october and november 2017. 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 TLIF fused discs in back. OCTOBER 2018 CAROTIDECTOMY AND LYMPH NODE REMOVAL ON RIGHT SIDE. Right Parotid gland removed. "filter for blood clots 2018" - Social History Smoking Status: Never smoker Exposure to second hand smoke: No Alcohol: None Drug Use: none Significant Family History: heart disease, cancer, diabetes - Physical Exam Vital Signs: Vital Signs - 24 hr Temp Pulse Resp BP Pulse Ox 11/24/21 07:24 97.7 F 70 11 L 111/75 100 11/24/21 03:57 96.2 F 70 16 112/69 93 L 11/23/21 23:59 97.1 F 70 16 111/56 97 11/23/21 23:19 97.5 F 68 17 136/83 97 11/23/21 18:46 99 11/23/21 17:03 70 17 115/74 93 L 11/23/21 16:00 70 16 132/92 99 11/23/21 15:08 70 18 118/67 98 11/23/21 14:24 97.5 F 70 126/83 98 General Appearance: mild distress, alert, lethargy Neurologic Exam: alert, No motor deficits Eye Exam: PERRL/EOMI, eyes nml inspection Ears, Nose, Throat Exam: normal ENT inspection, TMs normal, pharynx normal, moist mucous membranes Neck Exam: normal inspection, non-tender, supple, full range of motion Respiratory Exam: normal breath sounds, lungs clear, No respiratory distress Cardiovascular Exam: regular rate/rhythm, normal heart sounds, normal peripheral pulses Gastrointestinal/Abdomen Exam: soft, normal bowel sounds, No tenderness, No mass Back Exam: normal inspection, normal range of motion, No CVA tenderness, No vertebral tenderness Extremity Exam: normal inspection, normal range of motion, pelvis stable Skin Exam: normal color, warm, dry, No rash Lymphatic Exam: No adenopathy Results - Labs Lab/Micro Results: Lab Results-Last 24 Hours 11/23/21 11/23/21 11/23/21 Range/Units 14:33 15:10 15:10 WBC 6.3 (4.0-10.5) x10^3/uL RBC 3.86 L (4.1-5.4) x10^6/uL Hgb 10.7 L (12.0-16.0) g/dL Hct 34.6 L (35-47) % MCV 89.6 (78-100) fL MCH 27.7 (26-32) pg MCHC 30.9 L (32-36) g/dL RDW 15.9 H (11.5-14.0) % Plt Count 212 (150-450) x10^3/uL MPV 9.6 (7.5-11.0) fL Gran % 54.9 (36.0-66.0) % Immature Gran % (Auto) 0.3 (0.00-0.4) % Nucleat RBC Rel Count 0.0 (0.00-0.1) % Eos # (Auto) 0.16 (0-0.5) x10^3/uL Immature Gran # (Auto) 0.02 (0.00-0.03) x10^3u/L Absolute Lymphs (auto) 2.10 (1.0-4.6) x10^3/uL Absolute Monos (auto) 0.51 (0.0-1.3) x10^3/uL Absolute Nucleated RBC 0.00 (0.00-0.01) x10^3u/L Lymphocytes % 33.4 (24.0-44.0) % Monocytes % 8.1 (0.0-12.0) % Eosinophils % 2.5 (0.00-5.0) % Basophils % 0.8 (0.0-0.4) % Absolute Granulocytes 3.44 (1.4-6.9) x10^3/uL Basophils # 0.05 (0-0.4) x10^3/uL PT 10.6 (9.4-12.5) SECONDS INR 1.00 (0.8-3.0) APTT 22.8 L (25.1-36.5) SECONDS Sodium 140 (137-145) mmol/L Potassium 4.5 (3.5-5.1) mmol/L Chloride 108 H (98-107) mmol/L Carbon Dioxide 22 (22-30) mmol/L Anion Gap 14.5 (5-15) MEQ/L BUN 30 H (7-17) mg/dL Creatinine 1.51 H (0.52-1.04) mg/dL Estimated GFR 36.8 ML/MIN Glucose 87 (74-106) mg/dL Lactic Acid (0.4-2.0) Calcium 9.3 (8.4-10.2) mg/dL Total Bilirubin 0.60 (0.2-1.3) mg/dL AST 22 (14-36) U/L ALT 7 (0-35) U/L Alkaline Phosphatase 125 (38-126) U/L Troponin I (0.000-0.034) ng/mL Serum Total Protein 8.1 (6.3-8.2) g/dL Albumin 4.3 (3.5-5.0) g/dL Urinalys Dipstick Clnc Urine Color (YELLOW) Urine Appearance (CLEAR) Urine pH (5-6) Ur Specific [place] (1.005-1.025) POC Urine Protein Conf (Negative) Urine Ketones (NEGATIVE) Urine Nitrite (NEGATIVE) Urine Bilirubin (NEGATIVE) Urine Urobilinogen (0-1) mg/dL Urine Leukocytes (NEGATIVE) Urine WBC (Auto) (0-5) /HPF Urine RBC (Auto) (0-2) /HPF U Epithel Cells (Auto) (FEW) /HPF Urine RBC (0-5) Hemal/ul Urine Mucus (Auto) (NEGATIVE) /HPF Ur Culture Indicated? Urine Glucose (NEGATIVE) mg/dL Urine Opiates Level (NEGATIVE) Ur Methadone (NEGATIVE) Urine Barbiturates (NEGATIVE) Ur Phencyclidine (PCP) (NEGATIVE) Urine Amphetamine (NEGATIVE) U Benzodiazepine Level (NEGATIVE) Urine Cocaine (NEGATIVE) Urine Marijuana (THC) (NEGATIVE) Ethyl Alcohol (0-10) mg/dL Influenza Type A Ag (NEGATIVE) Influenza Type B Ag (NEGATIVE) RSV (PCR) (Negative) SARS-CoV-2 (PCR) (NEGATIVE) 11/23/21 11/23/21 11/23/21 Range/Units 15:10 15:10 15:12 WBC (4.0-10.5) x10^3/uL RBC (4.1-5.4) x10^6/uL Hgb (12.0-16.0) g/dL Hct (35-47) % MCV (78-100) fL MCH (26-32) pg MCHC (32-36) g/dL RDW (11.5-14.0) % Plt Count (150-450) x10^3/uL MPV (7.5-11.0) fL Gran % (36.0-66.0) % Immature Gran % (Auto) (0.00-0.4) % Nucleat RBC Rel Count (0.00-0.1) % Eos # (Auto) (0-0.5) x10^3/uL Immature Gran # (Auto) (0.00-0.03) x10^3u/L Absolute Lymphs (auto) (1.0-4.6) x10^3/uL Absolute Monos (auto) (0.0-1.3) x10^3/uL Absolute Nucleated RBC (0.00-0.01) x10^3u/L Lymphocytes % (24.0-44.0) % Monocytes % (0.0-12.0) % Eosinophils % (0.00-5.0) % Basophils % (0.0-0.4) % Absolute Granulocytes (1.4-6.9) x10^3/uL Basophils # (0-0.4) x10^3/uL PT (9.4-12.5) SECONDS INR (0.8-3.0) APTT (25.1-36.5) SECONDS Sodium (137-145) mmol/L Potassium (3.5-5.1) mmol/L Chloride (98-107) mmol/L Carbon Dioxide (22-30) mmol/L Anion Gap (5-15) MEQ/L BUN (7-17) mg/dL Creatinine (0.52-1.04) mg/dL Estimated GFR ML/MIN Glucose (74-106) mg/dL Lactic Acid 0.7 (0.4-2.0) Calcium (8.4-10.2) mg/dL Total Bilirubin (0.2-1.3) mg/dL AST (14-36) U/L ALT (0-35) U/L Alkaline Phosphatase (38-126) U/L Troponin I < 0.012 (0.000-0.034) ng/mL Serum Total Protein (6.3-8.2) g/dL Albumin (3.5-5.0) g/dL Urinalys Dipstick Clnc Urine Color (YELLOW) Urine Appearance (CLEAR) Urine pH (5-6) Ur Specific [place] (1.005-1.025) POC Urine Protein Conf (Negative) Urine Ketones (NEGATIVE) Urine Nitrite (NEGATIVE) Urine Bilirubin (NEGATIVE) Urine Urobilinogen (0-1) mg/dL Urine Leukocytes (NEGATIVE) Urine WBC (Auto) (0-5) /HPF Urine RBC (Auto) (0-2) /HPF U Epithel Cells (Auto) (FEW) /HPF Urine RBC (0-5) Hemal/ul Urine Mucus (Auto) (NEGATIVE) /HPF Ur Culture Indicated? Urine Glucose (NEGATIVE) mg/dL Urine Opiates Level (NEGATIVE) Ur Methadone (NEGATIVE) Urine Barbiturates (NEGATIVE) Ur Phencyclidine (PCP) (NEGATIVE) Urine Amphetamine (NEGATIVE) U Benzodiazepine Level (NEGATIVE) Urine Cocaine (NEGATIVE) Urine Marijuana (THC) (NEGATIVE) Ethyl Alcohol < 10 (0-10) mg/dL Influenza Type A Ag (NEGATIVE) Influenza Type B Ag (NEGATIVE) RSV (PCR) (Negative) SARS-CoV-2 (PCR) (NEGATIVE) 11/23/21 11/23/21 11/23/21 Range/Units 16:00 16:35 16:41 WBC (4.0-10.5) x10^3/uL RBC (4.1-5.4) x10^6/uL Hgb (12.0-16.0) g/dL Hct (35-47) % MCV (78-100) fL MCH (26-32) pg MCHC (32-36) g/dL RDW (11.5-14.0) % Plt Count (150-450) x10^3/uL MPV (7.5-11.0) fL Gran % (36.0-66.0) % Immature Gran % (Auto) (0.00-0.4) % Nucleat RBC Rel Count (0.00-0.1) % Eos # (Auto) (0-0.5) x10^3/uL Immature Gran # (Auto) (0.00-0.03) x10^3u/L Absolute Lymphs (auto) (1.0-4.6) x10^3/uL Absolute Monos (auto) (0.0-1.3) x10^3/uL Absolute Nucleated RBC (0.00-0.01) x10^3u/L Lymphocytes % (24.0-44.0) % Monocytes % (0.0-12.0) % Eosinophils % (0.00-5.0) % Basophils % (0.0-0.4) % Absolute Granulocytes (1.4-6.9) x10^3/uL Basophils # (0-0.4) x10^3/uL PT (9.4-12.5) SECONDS INR (0.8-3.0) APTT (25.1-36.5) SECONDS Sodium (137-145) mmol/L Potassium (3.5-5.1) mmol/L Chloride (98-107) mmol/L Carbon Dioxide (22-30) mmol/L Anion Gap (5-15) MEQ/L BUN (7-17) mg/dL Creatinine (0.52-1.04) mg/dL Estimated GFR ML/MIN Glucose (74-106) mg/dL Lactic Acid (0.4-2.0) Calcium (8.4-10.2) mg/dL Total Bilirubin (0.2-1.3) mg/dL AST (14-36) U/L ALT (0-35) U/L Alkaline Phosphatase (38-126) U/L Troponin I (0.000-0.034) ng/mL Serum Total Protein (6.3-8.2) g/dL Albumin (3.5-5.0) g/dL Urinalys Dipstick Clnc MAIN LAB Urine Color YELLOW (YELLOW) Urine Appearance CLEAR (CLEAR) Urine pH 5.0 (5-6) Ur Specific [place] >=1.030 (1.005-1.025) POC Urine Protein Conf NEGATIVE (Negative) Urine Ketones NEGATIVE (NEGATIVE) Urine Nitrite NEGATIVE (NEGATIVE) Urine Bilirubin NEGATIVE (NEGATIVE) Urine Urobilinogen 0.2 (0-1) mg/dL Urine Leukocytes NEGATIVE (NEGATIVE) Urine WBC (Auto) 0-2 (0-5) /HPF Urine RBC (Auto) NONE (0-2) /HPF U Epithel Cells (Auto) RARE (FEW) /HPF Urine RBC NEGATIVE (0-5) Hemal/ul Urine Mucus (Auto) SLIGHT (NEGATIVE) /HPF Ur Culture Indicated? NO Urine Glucose NEGATIVE (NEGATIVE) mg/dL Urine Opiates Level POSITIVE (NEGATIVE) Ur Methadone NEGATIVE (NEGATIVE) Urine Barbiturates NEGATIVE (NEGATIVE) Ur Phencyclidine (PCP) NEGATIVE (NEGATIVE) Urine Amphetamine NEGATIVE (NEGATIVE) U Benzodiazepine Level NEGATIVE (NEGATIVE) Urine Cocaine NEGATIVE (NEGATIVE) Urine Marijuana (THC) NEGATIVE (NEGATIVE) Ethyl Alcohol (0-10) mg/dL Influenza Type A Ag NEGATIVE (NEGATIVE) Influenza Type B Ag NEGATIVE (NEGATIVE) RSV (PCR) NEGATIVE (Negative) SARS-CoV-2 (PCR) NEGATIVE (NEGATIVE) 11/23/21 11/24/21 11/24/21 Range/Units 17:40 05:50 05:50 WBC 5.6 (4.0-10.5) x10^3/uL RBC 3.75 L (4.1-5.4) x10^6/uL Hgb 10.2 L (12.0-16.0) g/dL Hct 33.3 L (35-47) % MCV 88.8 (78-100) fL MCH 27.2 (26-32) pg MCHC 30.6 L (32-36) g/dL RDW 15.7 H (11.5-14.0) % Plt Count 183 (150-450) x10^3/uL MPV 9.7 (7.5-11.0) fL Gran % 56.4 (36.0-66.0) % Immature Gran % (Auto) 0.4 (0.00-0.4) % Nucleat RBC Rel Count 0.0 (0.00-0.1) % Eos # (Auto) 0.16 (0-0.5) x10^3/uL Immature Gran # (Auto) 0.02 (0.00-0.03) x10^3u/L Absolute Lymphs (auto) 1.76 (1.0-4.6) x10^3/uL Absolute Monos (auto) 0.46 (0.0-1.3) x10^3/uL Absolute Nucleated RBC 0.00 (0.00-0.01) x10^3u/L Lymphocytes % 31.3 (24.0-44.0) % Monocytes % 8.2 (0.0-12.0) % Eosinophils % 2.8 (0.00-5.0) % Basophils % 0.9 (0.0-0.4) % Absolute Granulocytes 3.17 (1.4-6.9) x10^3/uL Basophils # 0.05 (0-0.4) x10^3/uL PT (9.4-12.5) SECONDS INR (0.8-3.0) APTT (25.1-36.5) SECONDS Sodium 140 (137-145) mmol/L Potassium 4.0 (3.5-5.1) mmol/L Chloride 112 H (98-107) mmol/L Carbon Dioxide 21 L (22-30) mmol/L Anion Gap 10.8 (5-15) MEQ/L BUN 20 H (7-17) mg/dL Creatinine 1.10 H (0.52-1.04) mg/dL Estimated GFR 53.0 ML/MIN Glucose 84 (74-106) mg/dL Lactic Acid (0.4-2.0) Calcium 8.5 (8.4-10.2) mg/dL Total Bilirubin 0.70 (0.2-1.3) mg/dL AST 22 (14-36) U/L ALT 7 (0-35) U/L Alkaline Phosphatase 104 (38-126) U/L Troponin I < 0.012 (0.000-0.034) ng/mL Serum Total Protein 6.7 (6.3-8.2) g/dL Albumin 3.3 L (3.5-5.0) g/dL Urinalys Dipstick Clnc Urine Color (YELLOW) Urine Appearance (CLEAR) Urine pH (5-6) Ur Specific [place] (1.005-1.025) POC Urine Protein Conf (Negative) Urine Ketones (NEGATIVE) Urine Nitrite (NEGATIVE) Urine Bilirubin (NEGATIVE) Urine Urobilinogen (0-1) mg/dL Urine Leukocytes (NEGATIVE) Urine WBC (Auto) (0-5) /HPF Urine RBC (Auto) (0-2) /HPF U Epithel Cells (Auto) (FEW) /HPF Urine RBC (0-5) Hemal/ul Urine Mucus (Auto) (NEGATIVE) /HPF Ur Culture Indicated? Urine Glucose (NEGATIVE) mg/dL Urine Opiates Level (NEGATIVE) Ur Methadone (NEGATIVE) Urine Barbiturates (NEGATIVE) Ur Phencyclidine (PCP) (NEGATIVE) Urine Amphetamine (NEGATIVE) U Benzodiazepine Level (NEGATIVE) Urine Cocaine (NEGATIVE) Urine Marijuana (THC) (NEGATIVE) Ethyl Alcohol (0-10) mg/dL Influenza Type A Ag (NEGATIVE) Influenza Type B Ag (NEGATIVE) RSV (PCR) (Negative) SARS-CoV-2 (PCR) (NEGATIVE) - Radiology Impressions Radiology Exams & Impressions: Radiology Procedures Category Date Time Status HEAD WITHOUT CONTRAST [CT] Stat Exams 11/23/21 14:13 Completed Assessment/Plan (1) Altered mental status, unspecified Current Visit: Yes Status: Acute Qualifiers: Altered mental status type: somnolence Qualified Code(s): R40.0 - Somnolence Code(s): R41.82 - ALTERED MENTAL STATUS, UNSPECIFIED
[2021-11-24] MEDS: TYLENOL 325 MG PO PRN ×2 (09:45→13:55)
[2021-11-24] MEDS ORDERED: PROTONIX 40 MG IV IV SCH (10:00)
[2021-11-25 07:05] VITALS: BP 117/77; PULSE 70; O2SAT 98
--- NOTE | 2021-11-25 07:11 | PCM.NOTE ---
Date and Time: 11/25/21709 Subjective Assessment: doing ok - Review of Systems Constitutional: No Fever, No Chills Eyes: No Symptoms Ears, Nose, & Throat: No Symptoms Respiratory: No Cough, No Short Of Breath Cardiac: No Chest Pain, No Edema, No Syncope Abdominal/Gastrointestinal: No Abdominal Pain, No Nausea, No Vomiting, No Diarrhea Genitourinary Symptoms: No Dysuria Musculoskeletal: No Back Pain, No Neck Pain Skin: No Rash Neurological: No Dizziness, No Focal Weakness, No Sensory Changes Psychological: No Symptoms Endocrine: No Symptoms Hematologic/Lymphatic: No Symptoms Immunological/Allergic: No Symptoms Objective Exam General Appearance: no apparent distress, alert Neurologic Exam: alert, oriented x 3, cooperative, normal mood/affect, nml cerebellar function, sensation nml, No motor deficits Skin Exam: normal color, warm, dry Eye Exam: PERRL, EOMI, eyes nml inspection Ears, Nose, Throat Exam: normal ENT inspection, pharynx normal, moist mucous membranes Neck Exam: normal inspection, non-tender, supple, full range of motion Respiratory Exam: normal breath sounds, lungs clear, No respiratory distress Cardiovascular Exam: regular rate/rhythm, normal heart sounds Gastrointestinal/Abdomen Exam: soft, No tenderness, No mass Extremity Exam: normal inspection, normal range of motion Back Exam: normal inspection, normal range of motion, No CVA tenderness, No vertebral tenderness Pelvic Exam: deferred Rectal Exam: deferred OBJECTIVE DATA Vital Signs: Vital Signs - 24 hr Temp Pulse Resp BP Pulse Ox 11/25/21 07:04 97.7 F 70 12 117/77 98 11/25/21 04:00 97.0 F 69 16 106/66 97 11/25/21 00:00 96.9 F 70 16 92/50 95 11/24/21 20:00 96.7 F 70 16 100/61 98 11/24/21 16:00 98 F 70 18 107/62 94 L 11/24/21 11:43 98.5 F 80 16 120/77 99 11/24/21 07:24 97.7 F 70 11 L 111/75 100 Pain Assessment - Last Documented Pain Intensity 7 Pain Scale Used 0-10 Pain Scale Intake and Output: Intake & Output 11/22/21 11/23/21 11/24/21 11/25/21 11:59 11:59 11:59 11:59 Intake Total 1111 1200 Output Total 1200 600 Balance -89 600 Weight 93.3 kg Radiology Exams: Radiology Procedures Category Date Time Status HEAD WITHOUT CONTRAST [CT] Stat Exams 11/23/21 14:13 Completed Assessment/Plan (1) Altered mental status, unspecified Current Visit: Yes Status: Resolved Qualifiers: Altered mental status type: somnolence Qualified Code(s): R40.0 - Somnolence Code(s): R41.82 - ALTERED MENTAL STATUS, UNSPECIFIED
--- NOTE | 2021-11-25 08:15 | PCM.DS ---
Discharge Summary Date of Admission: 11/23/21 20:28 Admitting Physician: MARK ZHOU Primary Care Provider: WAQAR CASTRO Allergies Allergies adhesive Allergy (Mild, Verified 11/23/21 14:58) Blisters codeine [Codeine] Allergy (Mild, Verified 11/23/21 14:58) Nausea and Vomiting Sulfa (Sulfonamide Antibiotics) [Sulfa(Sulfonamide Antibiotics)] Allergy (Mild, Verified 11/23/21 14:58) Nausea and Vomiting iron Adverse Reaction (Intermediate, Verified 11/23/21 14:58) Nausea oxycodone [From Percocet] Adverse Reaction (Intermediate, Verified 11/23/21 14:58) Vomiting Hospital Summary - Hospital Course Hospital Course: Chief Complaint Diagnosis AMS, WEAKNESS, PAIN Allergies Allergy/AdvReac Type Severity Reaction Status Date / Time adhesive Allergy Mild Blisters Verified 11/23/21 14:58 codeine [Codeine] Allergy Mild Nausea and Verified 11/23/21 14:58 Vomiting Sulfa (Sulfonamide Allergy Mild Nausea and Verified 11/23/21 14:58 Antibiotics) Vomiting [Sulfa(Sulfonamide Antibiotics)] iron AdvReac Intermediate Nausea Verified 11/23/21 14:58 oxycodone [From Percocet] AdvReac Intermediate Vomiting Verified 11/23/21 14:58 Vital Signs (Last 24 hours) Temp Pulse Resp BP Pulse Ox 11/25/21 07:04 97.7 F 70 12 117/77 98 11/25/21 04:00 97.0 F 69 16 106/66 97 11/25/21 00:00 96.9 F 70 16 92/50 95 11/24/21 20:00 96.7 F 70 16 100/61 98 11/24/21 16:00 98 F 70 18 107/62 94 L 11/24/21 11:43 98.5 F 80 16 120/77 99 Current Medications Generic Name Dose Route Start Last Admin Trade Name Freq PRN Reason Stop Dose Admin Acetaminophen 650 mg 11/24/21 09:27 11/24/21 13:55 Acetaminophen 325 Mg Tablet PO 12/24/21 09:26 650 mg Q4H PRN PRN Administration PAIN AND/OR FEVER Ondansetron HCl 4 mg 11/23/21 17:59 11/24/21 13:55 Ondansetron Hcl 4 Mg/2 Ml Vial IV 12/23/21 17:58 4 mg Q6H PRN PRN Administration NAUSEA/VOMITING Pantoprazole Sodium 40 mg 11/24/21 10:00 11/24/21 09:44 Pantoprazole 40 Mg Vial IV 12/24/21 09:59 40 mg Q24H10 JUSTIN Administration Discontinued Medications Generic Name Dose Route Start Last Admin Trade Name Freq PRN Reason Stop Dose Admin Sodium Chloride 1,000 mls @ 100 mls/hr 11/23/21 18:00 11/24/21 14:49 Sodium Chloride 0.9% 1000 Ml IV 12/23/21 17:59 Not Given .Q10H JUSTIN Sodium Chloride 1,000 mls @ 999 mls/hr 11/23/21 18:03 11/23/21 18:04 Sodium Chloride 0.9% 1000 Ml IV 11/23/21 19:03 999 mls/hr .Q1H1M STA Administration Naloxone HCl 0.4 mg 11/23/21 15:24 11/23/21 15:31 Naloxone Hcl 0.4 Mg/Ml Ml IV 11/23/21 15:25 0.4 mg STAT ONE Administration Naloxone HCl Confirm 11/23/21 15:25 Naloxone Hcl 0.4 Mg/Ml Ml Administered 11/23/21 15:26 Dose 0.4 mg .ROUTE .STK-MED ONE Naloxone HCl 0.8 mg 11/23/21 19:29 11/23/21 19:39 Naloxone Hcl 0.4 Mg/Ml Ml IV 11/23/21 19:30 0.8 mg STAT ONE Administration Naloxone HCl Confirm 11/23/21 19:38 Naloxone Hcl 0.4 Mg/Ml Ml Administered 11/23/21 19:39 Dose 0.8 mg .ROUTE .STK-MED ONE Ondansetron HCl 4 mg 11/23/21 16:16 11/23/21 16:17 Ondansetron Hcl 4 Mg/2 Ml Vial IV 11/23/21 16:17 4 mg STAT ONE Administration Ondansetron HCl Confirm 11/23/21 16:14 Ondansetron Hcl 4 Mg/2 Ml Vial Administered 11/23/21 16:15 Dose 4 mg .ROUTE .STK-MED ONE Intake & Output (Last 24 hours) 11/22/21 11/23/21 11/24/21 11/25/21 11:59 11:59 11:59 11:59 Intake Total 1111 1200 Output Total 1200 600 Balance -89 600 Weight 93.3 kg Orders (Last 24 hours) Category Date Time Status Acetaminophen 325 mg [Tylenol 325 mg] Med 11/24/21 09:27 Active 650 mg PO Q4H PRN PRN Pantoprazole 40 mg [Protonix 40 mg IV] Med 11/24/21 10:00 Active 40 mg IV Q24H10 - Vitals & Intake/Output Vital Signs: Vital Signs Temperature 97.7 F 11/25/21 07:04 Pulse Rate 70 11/25/21 07:04 Respiratory Rate 12 11/25/21 07:04 Blood Pressure 117/77 11/25/21 07:04 O2 Sat by Pulse Oximetry 98 11/25/21 07:04 Intake & Output: Intake & Output 11/22/21 11/23/21 11/24/21 11/25/21 11:59 11:59 11:59 11:59 Intake Total 1111 1200 Output Total 1200 600 Balance -89 600 Weight 93.3 kg - Lab Result Diagrams: 11/24/21 05:50 11/24/21 05:50 - Radiology Exams Ordered Rad Exams-Entire Visit: Radiology Procedures Category Date Time Status HEAD WITHOUT CONTRAST [CT] Stat Exams 11/23/21 14:13 Completed Discharge Exam General Appearance: no apparent distress, alert Neurologic Exam: alert, oriented x 3, cooperative, normal mood/affect, nml cerebellar function, sensation nml, No motor deficits Eye Exam: PERRL, EOMI, eyes nml inspection Ears, Nose, Throat Exam: normal ENT inspection, pharynx normal, moist mucous membranes Neck Exam: normal inspection, non-tender, supple, full range of motion Respiratory Exam: normal breath sounds, lungs clear, No respiratory distress Cardiovascular Exam: regular rate/rhythm, normal heart sounds Gastrointestinal/Abdomen Exam: soft, No tenderness, No mass Pelvic Exam: deferred Rectal Exam: deferred Back Exam: normal inspection, normal range of motion, No CVA tenderness, No vertebral tenderness Extremity Exam: normal inspection, normal range of motion Skin Exam: normal color, warm, dry Final Diagnosis/Problem List - Final Discharge Diagnosis/Problem (1) Altered mental status, unspecified Current Visit: Yes Status: Resolved Code(s): R41.82 - ALTERED MENTAL STATUS, UNSPECIFIED - Discharge Discharge Date: 11/25/21 Disposition: Home, Self-Care Condition: Stable Prescriptions: No Action Tizanidine HCl 6 mg PO TID PRN PRN PRN Reason: Pain Furosemide [Lasix] 40 mg PO DAILY PRN PRN PRN Reason: swelling Promethazine HCl 25 mg [Phenergan 25 mg] 25 mg PO Q6H PRN PRN PRN Reason: Nausea/Vomiting Levothyroxine Sodium [Synthroid] 300 mcg PO BID Nitroglycerin 0.4 mg SL Q5MIN PRN MR X 3 PRN PRN Reason: Chest Pain Metoprolol Succinate 50 mg PO BID Apixaban [Eliquis] 5 mg PO BID 1 Days PANTOPRAZOLE 40 mg Tablet [Protonix 40MG Tablet] 1 tab PO DAILY Hydrocortisone 1% Cream [Cortisone 1% Cream] 1 gm TP TID PRN PRN PRN Reason: Redness/Irritation Morphine Sulfate [Morphine Sulfate ER] 30 mg PO BID Amiodarone HCl 200 mg [Cordarone 200 MG] 100 mg PO DAILY Follow up with: WAQAR CASTRO [Primary Care Provider] - 5 Days
== END 2021-11-25 09:07 | disposition home or self-care (01) ==
LOC: ED 14:02 → MED SURG 20:28
PROVIDERS: ADMIT General Practice; ATTEND Family Medicine
DX: R41.82 Altered mental status, unspecified (principal); R53.83 Other fatigue; G89.29 Other chronic pain; I50.9 Heart failure, unspecified; I25.10 Atherosclerotic heart disease of native coronary artery without angina pectoris; E03.9 Hypothyroidism, unspecified; R73.9 Hyperglycemia, unspecified; Z79.899 Other long term (current) drug therapy; Z20.828 Contact with and (suspected) exposure to other viral communicable diseases; Z85.850 Personal history of malignant neoplasm of thyroid
CPT/HCPCS: 0241U; 36415; 70450; 80053; 80307; 81015; 83605; 84484; 85025; 85610; 85730; 93005; 93268; 96374; 96375; 99285; G0378; G0480; J2310; J2405; A9270-GY

== ENCOUNTER 2022-02-21 12:25 | Emergency (ER) | payer MEDICARE ==
--- NOTE | 2022-02-21 12:53 | XRAY ---
Indication: Chest pain. Comparison: February 07, 2022 Portable chest remains inflated and clear. Heart remains enlarged again with left AICD and left Port-A-Cath. No new/acute findings.
[2022-02-21 13:23] LABS: Absolute Neutrophil Ct (ANC) 3.42 x10^3/uL (1.4-6.9); Basophil (Absolute #) 0.08 x10^3/uL (0-0.4); Eosinophil % 2.6 % (0.00-5.0); Eosinophil (Absolute #) 0.15 x10^3/uL (0-0.5); Hematocrit 36.3 % (35-47); Lymphocyte (Absolute #) 1.67 x10^3/uL (1.0-4.6); Lymphocytes % 28.7 % (24.0-44.0); Mean Cell Volume 93.6 fL (78-100); Mean Corpuscular Hemoglobin 28.4 pg (26-32); Mean Corpuscular Hgb Concent. 30.3 g/dL (32-36); Mean Platelet Volume 9.3 fL (7.5-11.0); Monocyte (Absolute #) 0.48 x10^3/uL (0.0-1.3); Monocytes % 8.2 % (0.0-12.0); Neutrophil % 58.8 % (36.0-66.0); Platelet Count 209 x10^3/uL (150-450); Red Blood Count 3.88 x10^6/uL (4.1-5.4); Red Cell Distribution Width 15.8 % (11.5-14.0); White Blood Count 5.8 x10^3/uL (4.0-10.5)
[2022-02-21 13:40] LABS: ALBUMIN 4.1 g/dL (3.5-5.0); ANION GAP 14.1 MEQ/L (5-15); BILIRUBIN,TOTAL 0.5 mg/dL (0.2-1.3); Calcium 8.9 mg/dL (8.4-10.2); Creatinine 1 1.14 mg/dL (0.52-1.04); EST GLOMERULAR FILTRATION RATE 50.8 ML/MIN; Total Protein 7.9 g/dL (6.3-8.2)
--- NOTE | 2022-02-21 15:02 | ERPHSYRPT ---
- History of Present Illness Time Seen by Provider: 02/21/22 12:40 Historian: patient Exam Limitations: no limitations Patient Subjective Stated Complaint: pt states "I had cardioversion done on Friday. I haven't felt well since then." Triage Nursing Assessment: pt ambulated into the er; pt is axo x4; c/o chest pain; pt states 8/10 pain to chest; clear apical heart tone; clear lung sounds in all lobes; no edema present; vitals wnl Physician History: Patient is a 66-year-old female presents to our ED with complaint of chest pain. Patient has history of chronic atrial fibrillation. Patient was on Eliquis. Patient had electrocardioversion on Friday by a botany laboratory assistant at [facility]. 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 Patient states she has been experiencing chest pain since the cardioversion. Patient is here today as the chest pain is significant. Patient feels "shaky". No dizziness. No nausea or vomiting. No diaphoresis. Symptoms are mild to moderate in intensity. No specific worsening proving factors. Patient voices no other complaints or concerns at this time. Portions of this note were created with voice recognition technology. There may be grammatical, spelling, punctuation or sound alike errors Timing/Duration: day(s) (2 days ago) Activities at Onset: none Location: substernal Chest Pain Radiation: no radiation Severity of Pain-Max: moderate Severity of Pain-Current: mild Modifying Factors: Improves With: nothing Associated Symptoms: nausea Prior Chest Pain/Cardiac Workup: recent hospitalization Nitro Today/Relief: no nitro taken today Aspirin Treatment Today: no aspirin today Allergies/Adverse Reactions: adhesive Allergy (Mild, Verified 02/21/22 12:27) Blisters codeine [Codeine] Allergy (Mild, Verified 02/21/22 12:27) Nausea and Vomiting Sulfa (Sulfonamide Antibiotics) [Sulfa(Sulfonamide Antibiotics)] Allergy (Mild, Verified 02/21/22 12:27) Nausea and Vomiting iron Adverse Reaction (Intermediate, Verified 02/21/22 12:27) Nausea oxycodone [From Percocet] Adverse Reaction (Intermediate, Verified 02/21/22 12:27) Vomiting Home Medications: Tizanidine HCl 6 mg PO TID PRN PRN 11/10/17 [History] Furosemide [Lasix] 40 mg PO DAILY PRN PRN 03/09/18 [History] Promethazine HCl 25 mg [Phenergan 25 mg] 25 mg PO Q6H PRN PRN 01/14/19 [History] Levothyroxine Sodium [Synthroid] 300 mcg PO BID 04/29/19 [History] Nitroglycerin 0.4 mg SL Q5MIN PRN MR X 3 PRN 04/29/19 [History] Metoprolol Succinate 50 mg PO BID 09/20/19 [History] PANTOPRAZOLE 40 mg Tablet [Protonix 40MG Tablet] 1 tab PO DAILY 02/10/21 [History] Hydrocortisone 1% Cream [Cortisone 1% Cream] 1 gm TP TID PRN PRN 06/20/21 [History] Amiodarone HCl 200 mg [Cordarone 200 MG] 100 mg PO DAILY 07/30/21 [History] Morphine Sulfate [Morphine Sulfate ER] 30 mg PO BID 07/30/21 [History] Hx Tetanus, Diphtheria Vaccination/Date Given: Yes Hx Influenza Vaccination/Date Given: No Hx Pneumococcal Vaccination/Date Given: No Travel Risk - International Travel Have you traveled outside of the country in past 3 weeks: No - Coronavirus Screening Are you exhibiting any of the following symptoms?: No Close contact with a COVID-19 positive Pt in past 14-21 Days: No - Vaccine Status Have you recieved a Covid-19 vaccination: No - Review of Systems Constitutional: No Symptoms, No Fever, No Chills Eyes: No Symptoms Ears, Nose, & Throat: No Symptoms Respiratory: No Symptoms, No Cough, No Dyspnea Cardiac: No Symptoms, No Chest Pain, No Edema, No Syncope Abdominal/Gastrointestinal: No Symptoms, No Abdominal Pain, No Nausea, No Vomiting, No Diarrhea Genitourinary Symptoms: No Symptoms, No Dysuria Musculoskeletal: No Symptoms, No Back Pain, No Neck Pain Skin: No Symptoms, No Rash Neurological: No Symptoms, No Dizziness, No Focal Weakness, No Sensory Changes Psychological: No Symptoms Endocrine: No Symptoms Hematologic/Lymphatic: No Symptoms Immunological/Allergic: No Symptoms All Other Systems: Reviewed and Negative - Past Medical History Pertinent Past Medical History: Yes Neurological History: Migraines, Stroke ENT History: No Pertinent History Cardiac History: Angina, Arrhythmia, Congestive Heart Failure, Coronary Artery Disease, Deep Vein Thrombosis, Other Respiratory History: Asthma Endocrine Medical History: Hypothyroidism, Thyroid Cancer Musculoskeletal History: Other GI Medical History: GERD, Hernia, Other History: Renal Disease, Other Psycho-Social History: No Pertinent History Female Reproductive Disorders: Endometriosis Other Medical History: HX Cardiac Arrest, HX Thyroid Removal, HX Back pain. HX A-Fib. Pre diabetic - Past Surgical History Past Surgical History: Yes Neuro Surgical History: No Pertinent History Cardiac: Cardiac Catheterization, Internal Defibrillator, Pacemaker, Other Respiratory: No Pertinent History Gastrointestinal: Appendectomy, Cholecystectomy, Colon Resection, Hernia Repair, Other Genitourinary: No Pertinent History Musculoskeletal: Orthopedic Surgery Female Surgical History: Hysterectomy Other Surgical History: THYROID REMOVED and Parotid gland removed; 40% and 50% blockages found with last heart cath about 4 years ago. ankle surgery d/t break,ileostomy, CVL port removed and replaced, Port placed. HX ostomy repair due to blockage 09/02, back surgery and 4 I&D september and october and november 2017. 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 TLIF fused discs in back. OCTOBER 2018 CAROTIDECTOMY AND LYMPH NODE REMOVAL ON RIGHT SIDE. Right Parotid gland removed. "filter for blood clots 2018" - Social History Smoking Status: Never smoker Exposure to second hand smoke: No Alcohol Use: None Drug Use: none Patient Lives Alone: No Significant Family History: heart disease, cancer, diabetes - Nursing Vital Signs Nursing Vital Signs: Initial Vital Signs Temperature 97.9 F 02/21/22 12:27 Pulse Rate 86 02/21/22 12:27 Respiratory Rate 10 L 02/21/22 12:27 Blood Pressure 112/73 02/21/22 12:27 O2 Sat by Pulse Oximetry 99 02/21/22 12:27 Pain Scale Pain Intensity 8 - Physical Exam General Appearance: no apparent distress, alert Eye Exam: PERRL/EOMI, eyes nml inspection Ears, Nose, Throat Exam: normal ENT inspection, TMs normal, pharynx normal, moist mucous membranes Neck Exam: normal inspection, non-tender, supple, full range of motion Respiratory Exam: normal breath sounds, lungs clear, airway intact, No respiratory distress Cardiovascular Exam: regular rate/rhythm, normal heart sounds, normal peripheral pulses Gastrointestinal/Abdomen Exam: soft, No tenderness, No mass Back Exam: normal inspection, No CVA tenderness, No vertebral tenderness Extremity Exam: normal inspection, normal range of motion Neurologic Exam: alert, oriented x 3, cooperative, normal mood/affect, sensation nml, No motor deficits Skin Exam: normal color, warm, dry Lymphatic Exam: No adenopathy SpO2 Interpretation: normal SpO2: 99 O2 Delivery: Room Air - Course Nursing assessment & vital signs reviewed: Yes EKG Interpreted by Me: RATE (89 biventricular paced rhythm) - Radiology Exams Chest X-ray Interpretation: Teleradiologist Report (Enlarged heart. Left AICD. Otherwise normal chest x-ray) Ordered Tests: Active Orders 24 hr Category Date Time Status Production Sanitizer STAT Care 02/21/22 12:33 Active EKG-ER Only STAT Care 02/21/22 12:32 Active IV Insertion STAT Care 02/21/22 12:32 Active Pulse Oximetry (ED) STAT Care 02/21/22 12:32 Active CHEST 1 VIEW (PORTABLE) Stat Exams 02/21/22 12:33 Completed CBC W DIFF Stat Lab 02/21/22 13:02 Completed CMP Stat Lab 02/21/22 13:02 Completed NT PRO BNP Stat Lab 02/21/22 13:02 Completed TROPONIN Q4H Lab 02/21/22 13:02 Completed TROPONIN Q4H Lab 02/21/22 15:50 Completed TROPONIN Q4H Lab 02/21/22 20:45 Ordered Lab/Rad Data: Laboratory Result Diagrams 02/21/22 13:02 02/21/22 13:02 Laboratory Results 02/21/22 02/21/22 02/21/22 Range/Units 15:50 13:02 13:02 WBC (4.0-10.5) x10^3/uL RBC (4.1-5.4) x10^6/uL Hgb (12.0-16.0) g/dL Hct (35-47) % MCV (78-100) fL MCH (26-32) pg MCHC (32-36) g/dL RDW (11.5-14.0) % Plt Count (150-450) x10^3/uL MPV (7.5-11.0) fL Gran % (36.0-66.0) % Immature Gran % (Auto) (0.00-0.4) % Nucleat RBC Rel Count (0.00-0.1) % Eos # (Auto) (0-0.5) x10^3/uL Immature Gran # (Auto) (0.00-0.03) x10^3u/L Absolute Lymphs (auto) (1.0-4.6) x10^3/uL Absolute Monos (auto) (0.0-1.3) x10^3/uL Absolute Nucleated RBC (0.00-0.01) x10^3u/L Lymphocytes % (24.0-44.0) % Monocytes % (0.0-12.0) % Eosinophils % (0.00-5.0) % Basophils % (0.0-0.4) % Absolute Granulocytes (1.4-6.9) x10^3/uL Basophils # (0-0.4) x10^3/uL Sodium 138 (137-145) mmol/L Potassium 4.0 (3.5-5.1) mmol/L Chloride 108 H (98-107) mmol/L Carbon Dioxide 19 L (22-30) mmol/L Anion Gap 14.1 (5-15) MEQ/L BUN 21 H (7-17) mg/dL Creatinine 1.14 H (0.52-1.04) mg/dL Estimated GFR 50.8 ML/MIN Glucose 88 (74-106) mg/dL Calcium 8.9 (8.4-10.2) mg/dL Total Bilirubin 0.50 (0.2-1.3) mg/dL AST 24 (14-36) U/L ALT 13 (0-35) U/L Alkaline Phosphatase 102 (38-126) U/L Troponin I 0.087 H* 0.096 H* (0.000-0.034) ng/mL NT-Pro-B Natriuret Pep 682 (0-900) pg/mL Serum Total Protein 7.9 (6.3-8.2) g/dL Albumin 4.1 (3.5-5.0) g/dL 02/21/22 Range/Units 13:02 WBC 5.8 (4.0-10.5) x10^3/uL RBC 3.88 L (4.1-5.4) x10^6/uL Hgb 11.0 L (12.0-16.0) g/dL Hct 36.3 (35-47) % MCV 93.6 (78-100) fL MCH 28.4 (26-32) pg MCHC 30.3 L (32-36) g/dL RDW 15.8 H (11.5-14.0) % Plt Count 209 (150-450) x10^3/uL MPV 9.3 (7.5-11.0) fL Gran % 58.8 (36.0-66.0) % Immature Gran % (Auto) 0.3 (0.00-0.4) % Nucleat RBC Rel Count 0.0 (0.00-0.1) % Eos # (Auto) 0.15 (0-0.5) x10^3/uL Immature Gran # (Auto) 0.02 (0.00-0.03) x10^3u/L Absolute Lymphs (auto) 1.67 (1.0-4.6) x10^3/uL Absolute Monos (auto) 0.48 (0.0-1.3) x10^3/uL Absolute Nucleated RBC 0.00 (0.00-0.01) x10^3u/L Lymphocytes % 28.7 (24.0-44.0) % Monocytes % 8.2 (0.0-12.0) % Eosinophils % 2.6 (0.00-5.0) % Basophils % 1.4 (0.0-0.4) % Absolute Granulocytes 3.42 (1.4-6.9) x10^3/uL Basophils # 0.08 (0-0.4) x10^3/uL Sodium (137-145) mmol/L Potassium (3.5-5.1) mmol/L Chloride (98-107) mmol/L Carbon Dioxide (22-30) mmol/L Anion Gap (5-15) MEQ/L BUN (7-17) mg/dL Creatinine (0.52-1.04) mg/dL Estimated GFR ML/MIN Glucose (74-106) mg/dL Calcium (8.4-10.2) mg/dL Total Bilirubin (0.2-1.3) mg/dL AST (14-36) U/L ALT (0-35) U/L Alkaline Phosphatase (38-126) U/L Troponin I (0.000-0.034) ng/mL NT-Pro-B Natriuret Pep (0-900) pg/mL Serum Total Protein (6.3-8.2) g/dL Albumin (3.5-5.0) g/dL - Progress Progress: improved Air Movement: good Progress Note: Case discussed with Dr. Bonilla who advises transfer to [facility]. Case discussed with hospitalist who accepts transfer. Plan of care discussed with patient. She agrees to transfer to [facility] for further evaluation and treatment. Portions of this note were created with voice recognition technology. There may be grammatical, spelling, punctuation or sound alike errors 02/21/22 16:34 Blood Culture(s) Obtained: No Antibiotics given: No Counseled pt/family regarding: lab results, diagnosis, rad results - Departure Departure Disposition: Home Clinical Impression: Chest pain, Elevated troponin Condition: Stable Critical Care Time: No Referrals: WAQAR CASTRO [Primary Care Provider] - Follow up/PCP as directed
[2022-02-21 17:05] VITALS: BP 118/72; PULSE 74; O2SAT 99
[2022-02-21] MEDS ORDERED: MORPHINE SULFATE 2 MG INJ IV ONE (17:06)
[2022-02-21] MEDS ORDERED: MORPHINE SULFATE 2 MG INJ ONE (17:23)
== END 2022-02-21 17:37 | disposition short-term general hospital (02) ==
LOC: ED 12:25
DX: R07.9 Chest pain, unspecified (principal); R77.8 Other specified abnormalities of plasma proteins; R11.0 Nausea; I25.10 Atherosclerotic heart disease of native coronary artery without angina pectoris; I50.9 Heart failure, unspecified; Z79.891 Long term (current) use of opiate analgesic; Z79.899 Other long term (current) drug therapy; Z28.310 Unvaccinated for COVID-19
CPT/HCPCS: 36000; 36415; 71045; 80053; 83880; 84484; 85025; 93005; 93041; 94760; 96374; 99285; J2270

== ENCOUNTER 2022-03-25 11:53 | Day surgery (SDC) | payer MEDICARE ==
--- NOTE | 2022-03-25 10:31 | HP ---
DATE OF SURGERY: 03/25/2022 HISTORY OF PRESENT ILLNESS: The patient is a 66-year-old female with multiple medical problems of atrial fibrillation on Eliquis in the past. Chronic abdominal ache. She had heart block, had defibrillator in the past. History of deep vein thrombosis and pulmonary embolism, thyroid cancer. She had inferior vena cava filter. She had rotator cuff repair. She had total colectomy. She had port placement in the past. Her last port was placed by Dr. Jaun Nowak. The patient also has diabetes, urinary tract infections. She had some bowel obstruction and ostomy in the past. He wanted me to see the patient. As her port is not functioning well, she would like it removed and try placing a new one. She has frequent hospitalizations, need for senior care IV access for poor peripheral access. PAST MEDICAL HISTORY: As above. She has chronic aches and pains. Leg fractures. PAST SURGICAL HISTORY: As above. The patient had robot-assisted laparoscopic parastomal hernia repair by Dr. Noman Nowak in the past. She had a recent port placed by Dr. Jaun Nowak. She has some problems with accessing. Cholecystectomy, hysterectomy, appendectomy, pacemaker and defibrillator, hernia repair, total colectomy with ostomy in the past. MEDICATIONS: Amiodarone, Jardiance, metoprolol, Entresto, Eliquis, Pepcid, furosemide, levothyroxine, morphine, nitroglycerin, Phenergan, tizanidine. ALLERGIES: SULFA. CODEINE. PERCOCET. TAPE. FAMILY HISTORY: Cancer, heart disease. SOCIAL HISTORY: No alcohol abuse. REVIEW OF SYSTEMS: Fourteen systems reviewed pertinent for as noted above. No chest pain or palpitations. Other systems negative or noncontributory as above and per preadmission questionnaire. PHYSICAL EXAMINATION: GENERAL: No acute distress. HEENT: Sclerae nonicteric. NECK: No JVD. CHEST: Equal excursion, nonlabored breathing. CVS: Regular rate and rhythm. ABDOMEN: Soft. EXTREMITIES: No cyanosis. NEURO: Alert. PSYCH: Appropriate mood and affect. IMPRESSION: Dysfunctional, difficult access port. I feel she would benefit from placement of a new port and removal of the old one. General risk of bleeding or infection, risk of thrombosis or pneumothorax, risk of arterial injury, risk of major venous tear. Possibility of inability to get back in the vein possibly requiring other procedures or interventional radiology. General risk of anesthesia or sedation but not limited to, consent obtained. Will proceed with removal of old port and placement of a new port as an outpatient.
[~2022-03-25 11:53] MED LIST changes: -Lactated Ringers 1,000 ML IV ONE
[2022-03-25] MEDS ORDERED: Lactated Ringers 1,000 ML IV SCH (12:30)
[2022-03-25 12:48] LABS: Hematocrit 36.5 % (35-47); Hemoglobin 11.3 g/dL (12.0-16.0); Mean Cell Volume 91.5 fL (78-100); Mean Corpuscular Hemoglobin 28.3 pg (26-32); Mean Platelet Volume 9.8 fL (7.5-11.0); Platelet Count 192 x10^3/uL (150-450); Red Blood Count 3.99 x10^6/uL (4.1-5.4); Red Cell Distribution Width 15.9 % (11.5-14.0); White Blood Count 6.7 x10^3/uL (4.0-10.5)
[2022-03-25] MEDS ORDERED: Transderm Scop 1.5MG Patch TOP ONE (12:52)
[2022-03-25] MEDS ORDERED: Zofran 4 MG/2 ML VIAL IV STA (12:52)
[2022-03-25 13:01] LABS: Bacteria RARE /HPF (NEGATIVE); Epithelial Cells RARE /HPF (FEW); Mucus SLIGHT /HPF (NEGATIVE)
[2022-03-25 13:07] LABS: Appearance SLIGHTLY CLOUDY (CLEAR); Bilirubin SMALL (NEGATIVE); Dipstick done @ ? MAIN LAB; Glucose NEGATIVE (NEGATIVE); Ketones NEGATIVE (NEGATIVE); Nitrite NEGATIVE (NEGATIVE); Ph 5.5 (5-6); Protein,Urine Dip 30 (Negative); RBC NEGATIVE Ery/ul (0-5); Specific Gravity >=1.030 (1.005-1.025); Urobilinogen 0.2 mg/dL (0-1)
[2022-03-25 13:51] LABS: Creatinine Urine 323.1 mg/dL
[2022-03-25] MEDS ORDERED: XYLOCAINE 1% HCL 20 ML MDV ONE (14:15)
[2022-03-25 14:27] LABS: ALBUMIN 4.5 g/dL (3.5-5.0); ANION GAP 10.5 MEQ/L (5-15); BILIRUBIN,TOTAL 0.6 mg/dL (0.2-1.3); Calcium 9.2 mg/dL (8.4-10.2); Creatinine 1 1.52 mg/dL (0.52-1.04); EST GLOMERULAR FILTRATION RATE 36.5 ML/MIN; Potassium 4.4 mmol/L (3.5-5.1); Total Protein 8.2 g/dL (6.3-8.2)
[2022-03-25] MEDS ORDERED: Levofloxacin 500MG/100ML D5W IV ONE (14:50)
[2022-03-25] MEDS ORDERED: Xylocaine-Mpf 2% 5 Ml Vial ONE (15:29)
[2022-03-25] MEDS ORDERED: Versed 2 MG/2 ML Injection ONE (15:29)
[2022-03-25] MEDS ORDERED: SUBLIMAZE 100 MCG/2 ML ONE ×2 (15:29→16:03)
[2022-03-25] MEDS ORDERED: DIPRIVAN 200 MG/20 ML IV ONE ×2 (15:29)
[2022-03-25] MEDS ORDERED: Lactated Ringers 1,000 ML IV ONE (16:03)
[2022-03-25] MEDS ORDERED: Hydromorphone 1 mg/ml Injection ONE (16:12)
--- NOTE | 2022-03-25 16:22 | XRAY ---
Indication: Port placement. Intraoperative fluoroscopy provided for 3 seconds. Single digital spot image submitted for interpretation demonstrates partially visualized left Port-A-Cath with 2 tips projecting over the SVC. Also partially visualized left AICD leads. Correlate with intraoperative findings/report.
--- NOTE | 2022-03-25 16:37 | XRAY ---
3 seconds fluoroscopy time in surgery for port placement.
[2022-03-25 17:23] VITALS: O2SAT 95
[2022-03-25 17:34] VITALS: BP 160/95; PULSE 76
--- NOTE | 2022-03-26 10:15 | OP ---
SURGERY DATE/TIME: 03/25/2022 1443 PREOPERATIVE DIAGNOSIS: Dysfunctional port placed by another surgeon, difficult access, need for long-term IV for treatments. POSTOPERATIVE DIAGNOSIS: Dysfunctional port placed by another surgeon, difficult access, need for long-term IV for treatments. PROCEDURES: 1) Ultrasound guidance interpretation management cannulation of new site left internal jugular vein. Placement of new site left internal jugular vein tunnel Port-A-Cath with C-arm fluoroscopy interpretation management. 2) Removal of old left chest dysfunctional Port-A-Cath placed by another surgeon. SURGEON: Dr. Juan M Cleveland. ANESTHESIA: MAC. 1% lidocaine local. ESTIMATED BLOOD LOSS: Minimal. INDICATIONS: As noted above. Risks and benefits explained in detail and not limited to and consent obtained. DESCRIPTION OF PROCEDURE AND FINDINGS: The patient is taken to the operating room. MAC anesthesia introduced. After official time out and no disagreement with planned procedure, in Trendelenburg position, she had been prepped and draped in usual sterile fashion. First, she had a left chest port and a left chest pacemaker defibrillator. We tried right side and had small compressible jugular vein on this side. There was inadequate flow for any passage of any guide wires. It was felt best to go back to the jugular approach, widely patent left internal jugular vein at a new site from prior access due to compressible vein on ultrasound transduction was easily identified. 1% Lidocaine local was infiltrated. 18 gauge cannulation needle inserted on first pass. Good dark nonpulsatile venous return. Guide wire initially wanted to go out laterally but then was able to go down the superior vena cava. Once this was accomplished, tunnel track and port pocket were anesthetized with 1% lidocaine local. Inferior subcu port pocket created more medial side of the left chest. Dissection carried subcu port pocket made. Port secured to the chest wall with Prolene suture x2. There was some ooze from a chest wall vein controlled with 3-0 Vicryl suture ligature. Good hemostasis noted. The catheter tunneled down from cannulation stab wound down port pocket area. The dilator and break away sheath easily placed over the guide wire. Catheter fed down the breakaway sheath. It was about 18 to 19 cm at least as far as it would go as there were leads from a prior pacemaker defibrillator, the catheter itself would not go further. It had good return. It was snapped on the port with the hub. It aspirated dark, nonpulsatile venous return with ease and flushed easily with heparinized saline. Subcu closed with 3-0 Vicryl. Skin closed with 4-0 Vicryl. Cannulation stab wound closed with 4-0 Vicryl. The tip was in good location as possible. Lung judge noted to be up bilaterally. It was felt no further x-rays were necessary at this point. Anesthetizing the port pocket from the old port more laterally different side, transverse incision made through the old scar made by another surgeon. I think Dr. Jaun Nowak did the last one. Dissection carried down. Prolene suture removed x2. Port pulled free and passed off. Tunnel track closed with 3-0 Vicryl at prior pocket, closed with 3-0 Vicryl. Subcu closed with 3-0 Vicryl. Skin closed with 4-0 Vicryl. Steri-Strips and sterile dressing applied. The patient tolerated the procedure well. There were no immediate complications. There was no family to discuss the findings with.
== END 2022-03-25 17:40 | disposition home or self-care (01) ==
LOC: SDC 11:53
PROVIDERS: ATTEND Surgery
DX: T82.598A Other mechanical complication of other cardiac and vascular devices and implants, initial encounter (principal); E11.9 Type 2 diabetes mellitus without complications; I48.91 Unspecified atrial fibrillation; Z85.850 Personal history of malignant neoplasm of thyroid
CPT/HCPCS: 36415; 71045; 76000; 76937; 80053; 81001; 82043; 82947; 85027; J1170; J1642; J1956; J2250; J2405; J2704; J3010; A9270-GY

== ENCOUNTER 2022-04-01 17:38 | Emergency (ER) | payer MEDICARE ==
[2022-04-01 18:35] LABS: Absolute Neutrophil Ct (ANC) 4.35 x10^3/uL (1.4-6.9); Basophil (Absolute #) 0.06 x10^3/uL (0-0.4); Eosinophil % 2.7 % (0.00-5.0); Eosinophil (Absolute #) 0.17 x10^3/uL (0-0.5); Hematocrit 38.1 % (35-47); Hemoglobin 11.8 g/dL (12.0-16.0); Lymphocyte (Absolute #) 1.34 x10^3/uL (1.0-4.6); Lymphocytes % 21.3 % (24.0-44.0); Mean Cell Volume 91.1 fL (78-100); Mean Corpuscular Hemoglobin 28.2 pg (26-32); Mean Platelet Volume 9.4 fL (7.5-11.0); Monocyte (Absolute #) 0.37 x10^3/uL (0.0-1.3); Monocytes % 5.9 % (0.0-12.0); Neutrophil % 68.9 % (36.0-66.0); Platelet Count 237 x10^3/uL (150-450); Red Blood Count 4.18 x10^6/uL (4.1-5.4); Red Cell Distribution Width 16.2 % (11.5-14.0); White Blood Count 6.3 x10^3/uL (4.0-10.5)
[2022-04-01 18:43] LABS: ALBUMIN 4.4 g/dL (3.5-5.0); ANION GAP 11.5 MEQ/L (5-15); BILIRUBIN,TOTAL 0.7 mg/dL (0.2-1.3); Calcium 9.5 mg/dL (8.4-10.2); Creatinine 1 1.34 mg/dL (0.52-1.04); EST GLOMERULAR FILTRATION RATE 42.2 ML/MIN; Potassium 3.8 mmol/L (3.5-5.1)
[2022-04-01] MEDS ORDERED: NITRO-BID 2% UD PACKETS TOP ONE (19:50)
[2022-04-01] MEDS ORDERED: BABY ASPIRIN 81 MG CHEW PO ONE (19:50)
--- NOTE | 2022-04-01 19:53 | ERPHSYRPT ---
- History of Present Illness Time Seen by Provider: 04/01/22 17:55 Historian: patient Exam Limitations: no limitations Patient Subjective Stated Complaint: Chest pain that started around 3pm today Triage Nursing Assessment: C/O chest pain more towards the right side of the chest that radiates through into her back. Bruising noted towards left chest from recent port placement. No SOB noted. Physician History: Patient is a 66-year-old female presents to our ED for evaluation of chest pain. Patient states chest pain started approximately 3 PM. Patient initially went to [facility]. Patient was placed in waiting room. Patient did not want to wait and therefore came to our ED for care. Patient is the pain tends to radiate to her back. She took 2 nitro without relief. No nausea vomiting or diaphoresis. Symptoms are mild to moderate in intensity. No specific worsening improving factors. Patient voices no other complaints or concerns at this time. Portions of this note were created with voice recognition technology. There may be grammatical, spelling, punctuation or sound alike errors Timing/Duration: today Activities at Onset: none Quality: aching Location: other (Left chest) Chest Pain Radiation: back Severity of Pain-Max: moderate Severity of Pain-Current: mild Modifying Factors: Improves With: nothing Associated Symptoms: denies symptoms Prior Chest Pain/Cardiac Workup: no prior chest pain Nitro Today/Relief: 0.4 mg x 2 Aspirin Treatment Today: no aspirin today Allergies/Adverse Reactions: baclofen Allergy (Severe, Verified 04/01/22 17:50) Difficulty Breathing pt states stopped breathing Sulfa (Sulfonamide Antibiotics) [Sulfa(Sulfonamide Antibiotics)] Allergy (Severe, Verified 04/01/22 17:50) Nausea and Vomiting adhesive Allergy (Mild, Verified 04/01/22 17:50) Blisters codeine [Codeine] Allergy (Mild, Verified 04/01/22 17:50) Nausea and Vomiting iron Adverse Reaction (Intermediate, Verified 04/01/22 17:50) Nausea oxycodone [From Percocet] Adverse Reaction (Intermediate, Verified 04/01/22 17:50) Vomiting Home Medications: Tizanidine HCl 4 mg PO TID PRN PRN 11/10/17 [History] Furosemide [Lasix] 40 mg PO DAILY PRN PRN 03/09/18 [History] Promethazine HCl 25 mg [Phenergan 25 mg] 25 mg PO Q6H PRN PRN 01/14/19 [History] Levothyroxine Sodium [Synthroid] 200 mcg PO BID 04/29/19 [History] Nitroglycerin 0.4 mg SL Q5MIN PRN MR X 3 PRN 04/29/19 [History] Metoprolol Succinate 25 mg PO BID 09/20/19 [History] Amiodarone HCl 200 mg [Cordarone 200 MG] 200 mg PO DAILY 07/30/21 [History] Morphine Sulfate [Morphine Sulfate ER] 30 mg PO Q8H PRN PRN 07/30/21 [History] Famotidine 40 mg PO DAILY 03/12/22 [History] Hx Tetanus, Diphtheria Vaccination/Date Given: Yes Hx Influenza Vaccination/Date Given: Yes Hx Pneumococcal Vaccination/Date Given: No Immunizations Up to Date: Yes Travel Risk - International Travel Have you traveled outside of the country in past 3 weeks: No - Coronavirus Screening Are you exhibiting any of the following symptoms?: No Close contact with a COVID-19 positive Pt in past 14-21 Days: No - Vaccine Status Have you recieved a Covid-19 vaccination: No - Review of Systems Constitutional: No Symptoms, No Fever, No Chills Eyes: No Symptoms Ears, Nose, & Throat: No Symptoms Respiratory: No Symptoms, No Cough, No Dyspnea Cardiac: No Symptoms, No Chest Pain, No Edema, No Syncope Abdominal/Gastrointestinal: No Symptoms, No Abdominal Pain, No Nausea, No Vomiting, No Diarrhea Genitourinary Symptoms: No Symptoms, No Dysuria Musculoskeletal: No Symptoms, No Back Pain, No Neck Pain Skin: No Symptoms, No Rash Neurological: No Symptoms, No Dizziness, No Focal Weakness, No Sensory Changes Psychological: No Symptoms Endocrine: No Symptoms Hematologic/Lymphatic: No Symptoms Immunological/Allergic: No Symptoms All Other Systems: Reviewed and Negative - Past Medical History Pertinent Past Medical History: Yes Neurological History: Migraines, Stroke ENT History: No Pertinent History Cardiac History: Angina, Arrhythmia, Congestive Heart Failure, Coronary Artery Disease, Deep Vein Thrombosis, Other Respiratory History: Asthma Endocrine Medical History: Hypothyroidism, Thyroid Cancer Musculoskeletal History: Other GI Medical History: GERD, Hernia, Other History: Renal Disease, Other Psycho-Social History: No Pertinent History Female Reproductive Disorders: Endometriosis Other Medical History: HX Cardiac Arrest, HX Thyroid Removal, HX Back pain. HX A-Fib. Pre diabetic - Past Surgical History Past Surgical History: Yes Neuro Surgical History: No Pertinent History Cardiac: Cardiac Catheterization, Internal Defibrillator, Pacemaker, Other Respiratory: No Pertinent History Gastrointestinal: Appendectomy, Cholecystectomy, Colon Resection, Hernia Repair, Other Genitourinary: No Pertinent History Musculoskeletal: Orthopedic Surgery Female Surgical History: Hysterectomy Other Surgical History: THYROID REMOVED and Parotid gland removed; 40% and 50% blockages found with last heart cath about 4 years ago. ankle surgery d/t break,ileostomy, CVL port removed and replaced, Port placed. HX ostomy repair due to blockage 09/02, back surgery and 4 I&D september and october and november 2017. 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 TLIF fused discs in back. OCTOBER 2018 CAROTIDECTOMY AND LY MPH NODE REMOVAL ON RIGHT SIDE. Right Parotid gland removed. "filter for blood clots 2018" - Social History Smoking Status: Never smoker Exposure to second hand smoke: No Alcohol Use: None Drug Use: none Patient Lives Alone: No Significant Family History: heart disease, cancer, diabetes - Nursing Vital Signs Nursing Vital Signs: Initial Vital Signs Temperature 97.4 F 04/01/22 17:51 Pulse Rate 72 04/01/22 17:51 Respiratory Rate 25 H 04/01/22 17:51 Blood Pressure 142/96 04/01/22 17:51 O2 Sat by Pulse Oximetry 97 04/01/22 17:51 Pain Scale Pain Intensity 5 - Physical Exam General Appearance: no apparent distress, alert Eye Exam: PERRL/EOMI, eyes nml inspection Ears, Nose, Throat Exam: normal ENT inspection, moist mucous membranes Neck Exam: normal inspection, non-tender, supple, full range of motion Respiratory Exam: normal breath sounds, lungs clear, No respiratory distress Cardiovascular Exam: regular rate/rhythm, normal heart sounds Gastrointestinal/Abdomen Exam: soft, No tenderness, No mass Back Exam: normal inspection, No CVA tenderness, No vertebral tenderness Extremity Exam: normal inspection, normal range of motion Neurologic Exam: alert, oriented x 3, cooperative, normal mood/affect, sensation nml, No motor deficits Skin Exam: normal color, warm, dry Lymphatic Exam: No adenopathy SpO2 Interpretation: normal SpO2: 96 O2 Delivery: Room Air - Course Nursing assessment & vital signs reviewed: Yes EKG Interpreted by Me: RATE (70 A. fib/flutter and ventricular paced rhythm), Sinus Rhythm, NORMAL AXIS, NORMAL INTERVALS - Radiology Exams Chest X-ray Interpretation: Interpreted by me (Clear lungs cardiomegaly no acute findings left AICD) Ordered Tests: Active Orders 24 hr Category Date Time Status Window Unit Air Conditioning Mechanic STAT Care 04/01/22 18:08 Active EKG-ER Only STAT Care 04/01/22 18:07 Active IV Insertion STAT Care 04/01/22 18:07 Active Pulse Oximetry (ED) STAT Care 04/01/22 18:07 Active CHEST 1 VIEW (PORTABLE) Stat Exams 04/01/22 18:08 Taken BNP [NT PRO BNP] Stat Lab 04/01/22 20:07 Completed CBC W DIFF Stat Lab 04/01/22 06:20 Completed CMP Stat Lab 04/01/22 06:20 Completed TROPONIN Q4H Lab 04/01/22 06:20 Completed TROPONIN Q4H Lab 04/01/22 22:40 Completed TROPONIN Q4H Lab 04/02/22 02:15 Ordered Medication Summary Discontinued Medications Generic Name Dose Route Start Last Admin Trade Name Juanq PRN Reason Stop Dose Admin Aspirin 324 mg 04/01/22 19:50 04/01/22 20:14 Aspirin 81 Mg Tab.Chew PO 04/01/22 19:51 324 mg STAT ONE Administration Aspirin Confirm 04/01/22 20:12 Aspirin 81 Mg Tab.Chew Administered 04/01/22 20:13 Dose 324 mg .ROUTE .STK-MED ONE Furosemide 40 mg 04/01/22 22:04 04/01/22 22:19 Furosemide 40 Mg/4 Ml Vial IV 04/01/22 22:05 40 mg STAT ONE Administration Furosemide Confirm 04/01/22 22:17 Furosemide 40 Mg/4 Ml Vial Administered 04/01/22 22:18 Dose 40 mg .ROUTE .STK-MED ONE Morphine Sulfate 2 mg 04/01/22 20:04 04/01/22 20:18 Morphine Sulfate 2 Mg/Ml Inj IV 04/01/22 20:05 2 mg STAT ONE Administration Morphine Sulfate Confirm 04/01/22 20:12 Morphine Sulfate 2 Mg/Ml Inj Administered 04/01/22 20:13 Dose 2 mg .ROUTE .STK-MED ONE Nitroglycerin 1 gm 04/01/22 19:50 04/01/22 20:15 Nitroglycerin 1 Gm Packet TOP 04/01/22 19:51 1 gm STAT ONE Administration Nitroglycerin Confirm 04/01/22 20:12 Nitroglycerin 1 Gm Packet Administered 04/01/22 20:13 Dose 1 gm .ROUTE .STK-MED ONE Lab/Rad Data: Laboratory Result Diagrams 04/01/22 06:20 04/01/22 06:20 Laboratory Results 04/01/22 04/01/22 04/01/22 Range/Units 22:40 20:20 20:07 WBC (4.0-10.5) x10^3/uL RBC (4.1-5.4) x10^6/uL Hgb (12.0-16.0) g/dL Hct (35-47) % MCV (78-100) fL MCH (26-32) pg MCHC (32-36) g/dL RDW (11.5-14.0) % Plt Count (150-450) x10^3/uL MPV (7.5-11.0) fL Gran % (36.0-66.0) % Immature Gran % (Auto) (0.00-0.4) % Nucleat RBC Rel Count (0.00-0.1) % Eos # (Auto) (0-0.5) x10^3/uL Immature Gran # (Auto) (0.00-0.03) x10^3u/L Absolute Lymphs (auto) (1.0-4.6) x10^3/uL Absolute Monos (auto) (0.0-1.3) x10^3/uL Absolute Nucleated RBC (0.00-0.01) x10^3u/L Lymphocytes % (24.0-44.0) % Monocytes % (0.0-12.0) % Eosinophils % (0.00-5.0) % Basophils % (0.0-0.4) % Absolute Granulocytes (1.4-6.9) x10^3/uL Basophils # (0-0.4) x10^3/uL Sodium (137-145) mmol/L Potassium (3.5-5.1) mmol/L Chloride (98-107) mmol/L Carbon Dioxide (22-30) mmol/L Anion Gap (5-15) MEQ/L BUN (7-17) mg/dL Creatinine (0.52-1.04) mg/dL Estimated GFR ML/MIN Glucose (74-106) mg/dL Calcium (8.4-10.2) mg/dL Total Bilirubin (0.2-1.3) mg/dL AST (14-36) U/L ALT (0-35) U/L Alkaline Phosphatase (38-126) U/L Troponin I < 0.012 (0.000-0.034) ng/mL NT-Pro-B Natriuret Pep 971 H (0-900) pg/mL Serum Total Protein (6.3-8.2) g/dL Albumin (3.5-5.0) g/dL Influenza Type A Ag NEGATIVE (NEGATIVE) Influenza Type B Ag NEGATIVE (NEGATIVE) RSV (PCR) NEGATIVE (Negative) SARS-CoV-2 (PCR) NEGATIVE (NEGATIVE) 04/01/22 04/01/22 04/01/22 Range/Units 06:20 06:20 06:20 WBC 6.3 (4.0-10.5) x10^3/uL RBC 4.18 (4.1-5.4) x10^6/uL Hgb 11.8 L (12.0-16.0) g/dL Hct 38.1 (35-47) % MCV 91.1 (78-100) fL MCH 28.2 (26-32) pg MCHC 31.0 L (32-36) g/dL RDW 16.2 H (11.5-14.0) % Plt Count 237 (150-450) x10^3/uL MPV 9.4 (7.5-11.0) fL Gran % 68.9 H (36.0-66.0) % Immature Gran % (Auto) 0.2 (0.00-0.4) % Nucleat RBC Rel Count 0.0 (0.00-0.1) % Eos # (Auto) 0.17 (0-0.5) x10^3/uL Immature Gran # (Auto) 0.01 (0.00-0.03) x10^3u/L Absolute Lymphs (auto) 1.34 (1.0-4.6) x10^3/uL Absolute Monos (auto) 0.37 (0.0-1.3) x10^3/uL Absolute Nucleated RBC 0.00 (0.00-0.01) x10^3u/L Lymphocytes % 21.3 L (24.0-44.0) % Monocytes % 5.9 (0.0-12.0) % Eosinophils % 2.7 (0.00-5.0) % Basophils % 1.0 (0.0-0.4) % Absolute Granulocytes 4.35 (1.4-6.9) x10^3/uL Basophils # 0.06 (0-0.4) x10^3/uL Sodium 137 (137-145) mmol/L Potassium 3.8 (3.5-5.1) mmol/L Chloride 106 (98-107) mmol/L Carbon Dioxide 23 (22-30) mmol/L Anion Gap 11.5 (5-15) MEQ/L BUN 13 (7-17) mg/dL Creatinine 1.34 H (0.52-1.04) mg/dL Estimated GFR 42.2 ML/MIN Glucose 82 (74-106) mg/dL Calcium 9.5 (8.4-10.2) mg/dL Total Bilirubin 0.70 (0.2-1.3) mg/dL AST 42 H (14-36) U/L ALT 18 (0-35) U/L Alkaline Phosphatase 96 (38-126) U/L Troponin I < 0.012 (0.000-0.034) ng/mL NT-Pro-B Natriuret Pep (0-900) pg/mL Serum Total Protein 8.0 (6.3-8.2) g/dL Albumin 4.4 (3.5-5.0) g/dL Influenza Type A Ag (NEGATIVE) Influenza Type B Ag (NEGATIVE) RSV (PCR) (Negative) SARS-CoV-2 (PCR) (NEGATIVE) - Progress Progress: improved Air Movement: good Progress Note: Case discussed with Dr. English who knows patient very well. He advises a second troponin and discharge home. Patient reassessed. She feels well. Work- up reveals a marginally elevated BNP. Patient received a dose of Lasix in our ED. Patient is ready for discharge. Portions of this note were created with voice recognition technology. There may be grammatical, spelling, punctuation or sound alike errors 04/01/22 23:25 Blood Culture(s) Obtained: No Antibiotics given: No Discussed with : Ashlyn Will see patient in: office Counseled pt/family regarding: lab results, diagnosis, rad results - Departure Departure Disposition: Home Clinical Impression: Chest pain, Elevated brain natriuretic peptide (BNP) level Condition: Stable Critical Care Time: No Referrals: WAQAR CASTRO [Primary Care Provider] - Follow up/PCP as directed Instructions: Heart Failure Additional Instructions: Discharge/Care Plan STELLA CRANE was seen on 04/01/22 in the Emergency Room. The patient was counseled regarding Diagnosis,Lab results, Imaging studies, need for follow up and when to return to the Emergency Room. Prescriptions given: Discharge Note I have spoken with the patient and/or caregivers. I have explained the patient's condition, diagnosis and treatment plan based on the information available to me at this time. I have answered the patient's and/or caregiver's questions and addressed any concerns. The patient and/or caregivers have as good understanding of the patient's diagnosis, condition and treatment plan as can be expected at this point. The vital signs have been stable. The patient's condition is stable and appropriate for discharge from the emergency department. The patient will pursue further outpatient evaluation with the primary care physician or other designated or consulting physician as outlined in the discharge instructions. The patient and/or caregivers are agreeable to this plan of care and follow-up instructions have been explained in detail. The patient and/or caregivers have received these instruction. The patient/and or caregivers are aware that any significant change in condition or worsening of symptoms should prompt an immediate return to this or the closest emergency department or call 911.
[2022-04-01] MEDS ORDERED: MORPHINE SULFATE 2 MG INJ IV ONE (20:04)
[2022-04-01] MEDS ORDERED: NITRO-BID 2% UD PACKETS ONE (20:12)
[2022-04-01] MEDS ORDERED: BABY ASPIRIN 81 MG CHEW ONE (20:12)
[2022-04-01] MEDS ORDERED: MORPHINE SULFATE 2 MG INJ ONE (20:12)
[2022-04-01 21:02] LABS: INFLUENZA A NEGATIVE (NEGATIVE); INFLUENZA B NEGATIVE (NEGATIVE); RESPIRATORY SYNCTIAL VIRUS NEGATIVE (Negative); SARS-CoV-2 Xpert Express NEGATIVE (NEGATIVE)
[2022-04-01] MEDS ORDERED: Lasix 40 MG/4 ML IV ONE (22:04)
[2022-04-01] MEDS ORDERED: Lasix 40 MG/4 ML ONE (22:17)
[2022-04-02 00:04] VITALS: BP 128/84; PULSE 74; O2SAT 100
--- NOTE | 2022-04-02 08:33 | XRAY ---
Indication: Chest pain. Comparison: February 21, 2022 Portable chest less inflated and rotated without focal infiltrate, consolidation, or large effusion. Heart now enlarged again with left AICD and left Port-A-Cath. No acute cardiopulmonary abnormalities.
== END 2022-04-02 00:13 | disposition home or self-care (01) ==
LOC: ED 17:38
DX: R07.9 Chest pain, unspecified (principal); R79.89 Other specified abnormal findings of blood chemistry; I50.9 Heart failure, unspecified; I25.10 Atherosclerotic heart disease of native coronary artery without angina pectoris; N28.9 Disorder of kidney and ureter, unspecified; R73.03 Prediabetes; Z79.891 Long term (current) use of opiate analgesic; Z79.899 Other long term (current) drug therapy; Z20.828 Contact with and (suspected) exposure to other viral communicable diseases
CPT/HCPCS: 0241U; 36000; 36415; 71045; 80053; 83880; 84484; 85025; 93005; 93041; 94760; 96374; 96375; 99284; J1642; J1940; J2270; A9270-GY

== ENCOUNTER 2022-04-03 12:59 | Observation (INO) | payer MEDICARE ==
[2022-04-03] MEDS ORDERED: Sodium Chloride 0.9% 500 ML 500 ML IV ONE ×2 (13:10→13:14)
--- NOTE | 2022-04-03 13:12 | ERPHSYRPT ---
- History of Present Illness Time Seen by Provider: 04/03/22 13:12 Source: patient, EMS Exam Limitations: no limitations Physician History: This is a morbidly obese 66-year-old white female patient of Dr. Mccallum and railway engineer Dr. Duarte who was seen by her railway engineer this morning and found to have a systolic blood pressure in the 80s. Because of this finding, and the patient complaint of feeling as though she is going to pass out, patient was transported from the cardiology clinic to our emergency department. She was conversant but hypotensive on arrival. This patient is well-known to our emergency department and does tend to use narcotic medication often. At first she denied using any narcotic products in the last couple of days. However, she suddenly remembered that she did use narcotic pain medicine last night because of chest pain and she might have accidentally taken some this morning instead of her tizanidine muscle relaxant. Patient has no complaints of chest pain on arrival to the emergency department. She was seen in our emergency department 04/01/2022 for a complaint of chest pain. She had a full work-up and her 0-hour and 3-hour troponin levels were within normal limits. At that time her systolic blood pressure was in the low 140s and she had a hemoglobin of 11.8. Patient has a history of hypothyroidism, coronary artery disease, defibrillator/pacemaker, peripheral vascular disease, CHF, chronic atrial fibrillation and chronic anemia. She is on Eliquis but also has a Gallo filter in place because of a history of DVT and pulmonary embolism in the past. Patient states she has not been vomiting blood, urinating blood or passing any blood rectally. Timing/Duration: today Activities at Onset: none Severity of Pain-Max: none Severity of Pain-Current: none Modifying Factors: Improves With: nothing Nitro Today/Relief: no nitro taken today Aspirin Treatment Today: no aspirin today Associated Symptoms: other (Feels as though she is going to pass out) Prior Chest Pain/Cardiac Workup: cardiac cath, echocardiography, heart attack, pulmonary embolism, recently seen/treated Allergies/Adverse Reactions: baclofen Allergy (Severe, Verified 04/03/22 13:32) Difficulty Breathing pt states stopped breathing Sulfa (Sulfonamide Antibiotics) [Sulfa(Sulfonamide Antibiotics)] Allergy (Severe, Verified 04/03/22 13:32) Nausea and Vomiting adhesive Allergy (Mild, Verified 04/03/22 13:32) Blisters codeine [Codeine] Allergy (Mild, Verified 04/03/22 13:32) Nausea and Vomiting iron Adverse Reaction (Intermediate, Verified 04/03/22 13:32) Nausea oxycodone [From Percocet] Adverse Reaction (Intermediate, Verified 04/03/22 13:32) Vomiting Home Medications: Tizanidine HCl 4 mg PO TID PRN PRN 11/10/17 [History] Furosemide [Lasix] 40 mg PO DAILY PRN PRN 03/09/18 [History] Promethazine HCl 25 mg [Phenergan 25 mg] 25 mg PO Q6H PRN PRN 01/14/19 [History] Levothyroxine Sodium [Synthroid] 200 mcg PO BID 04/29/19 [History] Nitroglycerin 0.4 mg SL Q5MIN PRN MR X 3 PRN 04/29/19 [History] Amiodarone HCl 200 mg [Cordarone 200 MG] 200 mg PO DAILY 07/30/21 [History] Morphine Sulfate [Morphine Sulfate ER] 30 mg PO Q8H PRN PRN 07/30/21 [History] Famotidine 40 mg PO DAILY 03/12/22 [History] Hx Tetanus, Diphtheria Vaccination/Date Given: Yes Hx Influenza Vaccination/Date Given: Yes Hx Pneumococcal Vaccination/Date Given: No Travel Risk - International Travel Have you traveled outside of the country in past 3 weeks: No - Coronavirus Screening Are you exhibiting any of the following symptoms?: No Close contact with a COVID-19 positive Pt in past 14-21 Days: No - Vaccine Status Have you recieved a Covid-19 vaccination: No - Review of Systems Constitutional: Weakness Eyes: No Symptoms Ears, Nose, & Throat: No Symptoms Respiratory: No Symptoms Cardiac: No Symptoms Abdominal/Gastrointestinal: No Symptoms Genitourinary Symptoms: No Symptoms Musculoskeletal: No Symptoms Skin: No Symptoms Neurological: Other Psychological: No Symptoms Endocrine: No Symptoms Hematologic/Lymphatic: No Symptoms Immunological/Allergic: No Symptoms All Other Systems: Reviewed and Negative - Past Medical History Pertinent Past Medical History: Yes Neurological History: Migraines, Stroke ENT History: No Pertinent History Cardiac History: Angina, Arrhythmia, Congestive Heart Failure, Coronary Artery Disease, Deep Vein Thrombosis, Other Respiratory History: Asthma Endocrine Medical History: Hypothyroidism, Thyroid Cancer Musculoskeletal History: Other GI Medical History: GERD, Hernia, Other History: Renal Disease, Other Psycho-Social History: No Pertinent History Female Reproductive Disorders: Endometriosis Other Medical History: HX Cardiac Arrest, HX Thyroid Removal, HX Back pain. HX A-Fib. Pre diabetic - Past Surgical History Past Surgical History: Yes Neuro Surgical History: No Pertinent History Cardiac: Cardiac Catheterization, Internal Defibrillator, Pacemaker, Other Respiratory: No Pertinent History Gastrointestinal: Appendectomy, Cholecystectomy, Colon Resection, Hernia Repair, Other Genitourinary: No Pertinent History Musculoskeletal: Orthopedic Surgery Female Surgical History: Hysterectomy Other Surgical History: THYROID REMOVED and Parotid gland removed; 40% and 50% blockages found with last heart cath about 4 years ago. ankle surgery d/t break,ileostomy, CVL port removed and replaced, Port placed. HX ostomy repair due to blockage 09/02, back surgery and 4 I&D september and october and november 2017. 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 TLIF fused discs in back. OCTOBER 2018 CAROTIDECTOMY AND LYMPH NODE REMOVAL ON RIGHT SIDE. Right Parotid gland removed. "filter for blood clots 2018" - Social History Smoking Status: Never smoker Exposure to second hand smoke: No Alcohol Use: None Drug Use: none Patient Lives Alone: No Significant Family History: heart disease, cancer, diabetes - Nursing Vital Signs Nursing Vital Signs: Initial Vital Signs Temperature 96.1 F 04/03/22 13:17 Pulse Rate 71 04/03/22 13:17 Respiratory Rate 15 04/03/22 13:17 Blood Pressure 87/59 04/03/22 13:17 O2 Sat by Pulse Oximetry 98 04/03/22 13:17 Pain Scale Pain Intensity 0 - Physical Exam General Appearance: no apparent distress, alert, anxiety, obese Eye Exam: other (Bilateral pupils are pinpoint) Ears, Nose, Throat Exam: normal ENT inspection, dry mucous membranes Neck Exam: normal inspection, non-tender, supple, full range of motion Respiratory Exam: normal breath sounds, lungs clear, airway intact, No chest tenderness, No respiratory distress Cardiovascular Exam: regular rate/rhythm, normal heart sounds, normal peripheral pulses Gastrointestinal/Abdomen Exam: soft, normal bowel sounds, No tenderness Pelvic Exam: not done Rectal Exam: not done Back Exam: normal inspection, normal range of motion, No CVA tenderness, No vertebral tenderness Extremity Exam: normal inspection, normal range of motion, pelvis stable Neurologic Exam: alert, oriented x 3, cooperative, international tax manager II-XII nml as tested, normal mood/affect Skin Exam: normal color, warm, dry Lymphatic Exam: No adenopathy SpO2 Interpretation: normal O2 Delivery: Room Air - Course Nursing assessment & vital signs reviewed: Yes EKG Interpreted by Me: RATE (70), Other (Ventricularly paced rhythm. There is no change in the EKG when compared to the EKG dated 02/17/2022.) Ordered Tests: Active Orders 24 hr Category Date Time Status Welder Experimental STAT Care 04/03/22 13:10 Active EKG-ER Only STAT Care 04/03/22 13:09 Active IV Insertion STAT Care 04/03/22 13:09 Active Pulse Oximetry (ED) STAT Care 04/03/22 13:09 Active cath [Cath for Specimen-Straight] STAT Care 04/03/22 16:24 Active CBC W DIFF Stat Lab 04/03/22 13:35 Completed CMP Stat Lab 04/03/22 13:35 Completed NT PRO BNP Stat Lab 04/03/22 13:35 Completed PROTIME WITH INR Stat Lab 04/03/22 13:35 Completed T4 (Thyroxine) Stat Lab 04/03/22 13:35 Completed TROPONIN Q4H Lab 04/03/22 13:35 Completed TROPONIN Q4H Lab 04/03/22 17:05 Received TROPONIN Q4H Lab 04/03/22 21:15 Ordered TSH [TSH, 3RD Generation] Stat Lab 04/03/22 13:35 Completed UA W/RFX CULTURE Stat Lab 04/03/22 16:24 Completed Urine Triage Profile Stat Lab 04/03/22 16:24 Completed Transfer Order Routine Transfer 04/03/22 Ordered Medication Summary Discontinued Medications Generic Name Dose Route Start Last Admin Trade Name Freq PRN Reason Stop Dose Admin Sodium Chloride 500 mls @ 500 mls/hr 04/03/22 13:10 04/03/22 14:56 Sodium Chloride 0.9% 500 Ml IV 04/03/22 14:09 Infused .Q1H ONE Infusion Sodium Chloride Confirm 04/03/22 13:14 Sodium Chloride 0.9% 500 Ml Administered 04/03/22 13:15 Dose 500 mls @ ud IV .STK-MED ONE Sodium Chloride 1,000 mls @ 999 mls/hr 04/03/22 14:32 04/03/22 15:35 Sodium Chloride 0.9% 1000 Ml IV 04/03/22 15:32 Infused .Q1H1M STA Infusion Sodium Chloride Confirm 04/03/22 14:32 Sodium Chloride 0.9% 1000 Ml Administered 04/03/22 14:33 Dose 1,000 mls @ ud .ROUTE .STK-MED ONE Naloxone HCl 0.4 mg 04/03/22 14:27 04/03/22 14:34 Naloxone Hcl 0.4 Mg/Ml Ml IV 04/03/22 14:28 0.4 mg STAT ONE Administration Naloxone HCl Confirm 04/03/22 14:29 Naloxone Hcl 0.4 Mg/Ml Ml Administered 04/03/22 14:30 Dose 0.4 mg .ROUTE .STK-MED ONE Lab/Rad Data: Laboratory Result Diagrams 04/03/22 13:35 04/03/22 13:35 Laboratory Results 04/03/22 04/03/22 04/03/22 Range/Units 16:24 16:24 15:31 WBC (4.0-10.5) x10^3/uL RBC (4.1-5.4) x10^6/uL Hgb (12.0-16.0) g/dL Hct (35-47) % MCV (78-100) fL MCH (26-32) pg MCHC (32-36) g/dL RDW (11.5-14.0) % Plt Count (150-450) x10^3/uL MPV (7.5-11.0) fL Gran % (36.0-66.0) % Immature Gran % (Auto) (0.00-0.4) % Nucleat RBC Rel Count (0.00-0.1) % Eos # (Auto) (0-0.5) x10^3/uL Immature Gran # (Auto) (0.00-0.03) x10^3u/L Absolute Lymphs (auto) (1.0-4.6) x10^3/uL Absolute Monos (auto) (0.0-1.3) x10^3/uL Absolute Nucleated RBC (0.00-0.01) x10^3u/L Lymphocytes % (24.0-44.0) % Monocytes % (0.0-12.0) % Eosinophils % (0.00-5.0) % Basophils % (0.0-0.4) % Absolute Granulocytes (1.4-6.9) x10^3/uL Basophils # (0-0.4) x10^3/uL PT (9.4-12.5) SECONDS INR (0.8-3.0) Sodium (137-145) mmol/L Potassium (3.5-5.1) mmol/L Chloride (98-107) mmol/L Carbon Dioxide (22-30) mmol/L Anion Gap (5-15) MEQ/L BUN (7-17) mg/dL Creatinine (0.52-1.04) mg/dL Estimated GFR ML/MIN Glucose (74-106) mg/dL Calcium (8.4-10.2) mg/dL Total Bilirubin (0.2-1.3) mg/dL AST (14-36) U/L ALT (0-35) U/L Alkaline Phosphatase (38-126) U/L Troponin I (0.000-0.034) ng/mL NT-Pro-B Natriuret Pep (0-900) pg/mL Serum Total Protein (6.3-8.2) g/dL Albumin (3.5-5.0) g/dL Thyroxine (T4) (5.53-10.96) ug/dL TSH 3rd Generation (0.47-4.68) mIU/L Urinalys Dipstick Clnc MAIN LAB Urine Color YELLOW (YELLOW) Urine Appearance CLEAR (CLEAR) Urine pH 5.5 (5-6) Ur Specific [place] >=1.030 A (1.005-1.025) POC Urine Protein Conf 30 A (Negative) Urine Ketones NEGATIVE (NEGATIVE) Urine Nitrite NEGATIVE (NEGATIVE) Urine Bilirubin SMALL A (NEGATIVE) Urine Urobilinogen 0.2 (0-1) mg/dL Urine Leukocytes NEGATIVE (NEGATIVE) Urine WBC (Auto) 0-2 (0-5) /HPF Urine RBC (Auto) 0-2 (0-2) /HPF U Epithel Cells (Auto) Not Reportable Urine Bacteria (Auto) Not Reportable Urine RBC NEGATIVE (0-5) Hemal/ul Urine Mucus (Auto) SLIGHT A (NEGATIVE) /HPF Ur Culture Indicated? NO Urine Glucose NEGATIVE (NEGATIVE) mg/dL Urine Opiates Level POSITIVE (NEGATIVE) Ur Methadone NEGATIVE (NEGATIVE) Urine Barbiturates NEGATIVE (NEGATIVE) Ur Phencyclidine (PCP) NEGATIVE (NEGATIVE) Urine Amphetamine NEGATIVE (NEGATIVE) U Benzodiazepine Level NEGATIVE (NEGATIVE) Urine Cocaine NEGATIVE (NEGATIVE) Urine Marijuana (THC) NEGATIVE (NEGATIVE) Influenza Type A Ag NEGATIVE (NEGATIVE) Influenza Type B Ag NEGATIVE (NEGATIVE) RSV (PCR) NEGATIVE (Negative) SARS-CoV-2 (PCR) NEGATIVE (NEGATIVE) 04/03/22 04/03/22 04/03/22 Range/Units 13:35 13:35 13:35 WBC (4.0-10.5) x10^3/uL RBC (4.1-5.4) x10^6/uL Hgb (12.0-16.0) g/dL Hct (35-47) % MCV (78-100) fL MCH (26-32) pg MCHC (32-36) g/dL RDW (11.5-14.0) % Plt Count (150-450) x10^3/uL MPV (7.5-11.0) fL Gran % (36.0-66.0) % Immature Gran % (Auto) (0.00-0.4) % Nucleat RBC Rel Count (0.00-0.1) % Eos # (Auto) (0-0.5) x10^3/uL Immature Gran # (Auto) (0.00-0.03) x10^3u/L Absolute Lymphs (auto) (1.0-4.6) x10^3/uL Absolute Monos (auto) (0.0-1.3) x10^3/uL Absolute Nucleated RBC (0.00-0.01) x10^3u/L Lymphocytes % (24.0-44.0) % Monocytes % (0.0-12.0) % Eosinophils % (0.00-5.0) % Basophils % (0.0-0.4) % Absolute Granulocytes (1.4-6.9) x10^3/uL Basophils # (0-0.4) x10^3/uL PT (9.4-12.5) SECONDS INR (0.8-3.0) Sodium (137-145) mmol/L Potassium (3.5-5.1) mmol/L Chloride (98-107) mmol/L Carbon Dioxide (22-30) mmol/L Anion Gap (5-15) MEQ/L BUN (7-17) mg/dL Creatinine (0.52-1.04) mg/dL Estimated GFR ML/MIN Glucose (74-106) mg/dL Calcium (8.4-10.2) mg/dL Total Bilirubin (0.2-1.3) mg/dL AST (14-36) U/L ALT (0-35) U/L Alkaline Phosphatase (38-126) U/L Troponin I < 0.012 (0.000-0.034) ng/mL NT-Pro-B Natriuret Pep (0-900) pg/mL Serum Total Protein (6.3-8.2) g/dL Albumin (3.5-5.0) g/dL Thyroxine (T4) 1.80 L (5.53-10.96) ug/dL TSH 3rd Generation 133.000 H (0.47-4.68) mIU/L Urinalys Dipstick Clnc Urine Color (YELLOW) Urine Appearance (CLEAR) Urine pH (5-6) Ur Specific [place] (1.005-1.025) POC Urine Protein Conf (Negative) Urine Ketones (NEGATIVE) Urine Nitrite (NEGATIVE) Urine Bilirubin (NEGATIVE) Urine Urobilinogen (0-1) mg/dL Urine Leukocytes (NEGATIVE) Urine WBC (Auto) (0-5) /HPF Urine RBC (Auto) (0-2) /HPF U Epithel Cells (Auto) Urine Bacteria (Auto) Urine RBC (0-5) Hemal/ul Urine Mucus (Auto) (NEGATIVE) /HPF Ur Culture Indicated? Urine Glucose (NEGATIVE) mg/dL Urine Opiates Level (NEGATIVE) Ur Methadone (NEGATIVE) Urine Barbiturates (NEGATIVE) Ur Phencyclidine (PCP) (NEGATIVE) Urine Amphetamine (NEGATIVE) U Benzodiazepine Level (NEGATIVE) Urine Cocaine (NEGATIVE) Urine Marijuana (THC) (NEGATIVE) Influenza Type A Ag (NEGATIVE) Influenza Type B Ag (NEGATIVE) RSV (PCR) (Negative) SARS-CoV-2 (PCR) (NEGATIVE) 04/03/22 04/03/22 04/03/22 Range/Units 13:35 13:35 13:35 WBC 5.6 (4.0-10.5) x10^3/uL RBC 4.25 (4.1-5.4) x10^6/uL Hgb 11.9 L (12.0-16.0) g/dL Hct 40.1 (35-47) % MCV 94.4 (78-100) fL MCH 28.0 (26-32) pg MCHC 29.7 L (32-36) g/dL RDW 16.3 H (11.5-14.0) % Plt Count 221 (150-450) x10^3/uL MPV 9.9 (7.5-11.0) fL Gran % 67.7 H (36.0-66.0) % Immature Gran % (Auto) 0.4 (0.00-0.4) % Nucleat RBC Rel Count 0.0 (0.00-0.1) % Eos # (Auto) 0.20 (0-0.5) x10^3/uL Immature Gran # (Auto) 0.02 (0.00-0.03) x10^3u/L Absolute Lymphs (auto) 1.19 (1.0-4.6) x10^3/uL Absolute Monos (auto) 0.31 (0.0-1.3) x10^3/uL Absolute Nucleated RBC 0.00 (0.00-0.01) x10^3u/L Lymphocytes % 21.2 L (24.0-44.0) % Monocytes % 5.5 (0.0-12.0) % Eosinophils % 3.6 (0.00-5.0) % Basophils % 1.6 (0.0-0.4) % Absolute Granulocytes 3.81 (1.4-6.9) x10^3/uL Basophils # 0.09 (0-0.4) x10^3/uL PT 11.5 (9.4-12.5) SECONDS INR 1.09 (0.8-3.0) Sodium 137 (137-145) mmol/L Potassium 3.9 (3.5-5.1) mmol/L Chloride 105 (98-107) mmol/L Carbon Dioxide 23 (22-30) mmol/L Anion Gap 13.5 (5-15) MEQ/L BUN 20 H (7-17) mg/dL Creatinine 2.01 H (0.52-1.04) mg/dL Estimated GFR 26.4 ML/MIN Glucose 131 H (74-106) mg/dL Calcium 9.4 (8.4-10.2) mg/dL Total Bilirubin 0.80 (0.2-1.3) mg/dL AST 36 (14-36) U/L ALT 18 (0-35) U/L Alkaline Phosphatase 75 (38-126) U/L Troponin I (0.000-0.034) ng/mL NT-Pro-B Natriuret Pep 365 (0-900) pg/mL Serum Total Protein 7.7 (6.3-8.2) g/dL Albumin 4.2 (3.5-5.0) g/dL Thyroxine (T4) (5.53-10.96) ug/dL TSH 3rd Generation (0.47-4.68) mIU/L Urinalys Dipstick Clnc Urine Color (YELLOW) Urine Appearance (CLEAR) Urine pH (5-6) Ur Specific [place] (1.005-1.025) POC Urine Protein Conf (Negative) Urine Ketones (NEGATIVE) Urine Nitrite (NEGATIVE) Urine Bilirubin (NEGATIVE) Urine Urobilinogen (0-1) mg/dL Urine Leukocytes (NEGATIVE) Urine WBC (Auto) (0-5) /HPF Urine RBC (Auto) (0-2) /HPF U Epithel Cells (Auto) Urine Bacteria (Auto) Urine RBC (0-5) Hemal/ul Urine Mucus (Auto) (NEGATIVE) /HPF Ur Culture Indicated? Urine Glucose (NEGATIVE) mg/dL Urine Opiates Level (NEGATIVE) Ur Methadone (NEGATIVE) Urine Barbiturates (NEGATIVE) Ur Phencyclidine (PCP) (NEGATIVE) Urine Amphetamine (NEGATIVE) U Benzodiazepine Level (NEGATIVE) Urine Cocaine (NEGATIVE) Urine Marijuana (THC) (NEGATIVE) Influenza Type A Ag (NEGATIVE) Influenza Type B Ag (NEGATIVE) RSV (PCR) (Negative) SARS-CoV-2 (PCR) (NEGATIVE) - Progress Progress: improved, re-examined Air Movement: good Progress Note: 04/03/22 17:28 Medical decision making: This patient's systolic blood pressure is is ma intaining in the 80s. Just 2 days ago her systolic blood pressure was 142. She is not having any significant chest pain at this time. Her hemoglobin has not changed in 2 days at 11.8 and 11.9 respectively. She is not tachycardic and she is not septic. I spoke with Dr. Leal and we will place her in observation and provide her with IV fluids and monitor her in the telemetry bed. She does appe ar to be hypothyroid. Blood Culture(s) Obtained: No Antibiotics given: No Discussed with : Preeti Counseled pt/family regarding: lab results, diagnosis - Departure Departure Disposition: Observation Clinical Impression: Hypotension, Hypothyroid Condition: Fair Critical Care Time: Yes Critical Care Time(excluding separately billable procedures): Critical 30-74 mins (45 minutes) Referrals: WAQAR MCCALLUM [Primary Care Provider] - Follow up/PCP as directed
[2022-04-03 13:41] LABS: Absolute Neutrophil Ct (ANC) 3.81 x10^3/uL (1.4-6.9); Basophil (Absolute #) 0.09 x10^3/uL (0-0.4); Eosinophil % 3.6 % (0.00-5.0); Hematocrit 40.1 % (35-47); Hemoglobin 11.9 g/dL (12.0-16.0); Lymphocyte (Absolute #) 1.19 x10^3/uL (1.0-4.6); Lymphocytes % 21.2 % (24.0-44.0); Mean Cell Volume 94.4 fL (78-100); Mean Corpuscular Hgb Concent. 29.7 g/dL (32-36); Mean Platelet Volume 9.9 fL (7.5-11.0); Monocyte (Absolute #) 0.31 x10^3/uL (0.0-1.3); Monocytes % 5.5 % (0.0-12.0); Neutrophil % 67.7 % (36.0-66.0); Platelet Count 221 x10^3/uL (150-450); Red Blood Count 4.25 x10^6/uL (4.1-5.4); Red Cell Distribution Width 16.3 % (11.5-14.0); White Blood Count 5.6 x10^3/uL (4.0-10.5)
[2022-04-03 13:54] LABS: INR 1.09 (0.8-3.0); PROTIME 11.5 SECONDS (9.4-12.5)
[2022-04-03 14:04] LABS: ALBUMIN 4.2 g/dL (3.5-5.0); ANION GAP 13.5 MEQ/L (5-15); BILIRUBIN,TOTAL 0.8 mg/dL (0.2-1.3); Calcium 9.4 mg/dL (8.4-10.2); Creatinine 1 2.01 mg/dL (0.52-1.04); EST GLOMERULAR FILTRATION RATE 26.4 ML/MIN; Potassium 3.9 mmol/L (3.5-5.1); Total Protein 7.7 g/dL (6.3-8.2)
[2022-04-03] MEDS ORDERED: Narcan 0.4 MG/ML IV ONE (14:27)
[2022-04-03] MEDS ORDERED: Narcan 0.4 MG/ML ONE (14:29)
[2022-04-03] MEDS ORDERED: Sodium Chloride 0.9% 1000 ML 1,000 ML ONE (14:32)
[2022-04-03] MEDS ORDERED: Sodium Chloride 0.9% 1000 ML 1,000 ML IV STA (14:32)
[2022-04-03 16:09] LABS: INFLUENZA A NEGATIVE (NEGATIVE); INFLUENZA B NEGATIVE (NEGATIVE); RESPIRATORY SYNCTIAL VIRUS NEGATIVE (Negative); SARS-CoV-2 Xpert Express NEGATIVE (NEGATIVE)
[2022-04-03 16:35] LABS: Appearance CLEAR (CLEAR); Bilirubin SMALL (NEGATIVE); Glucose NEGATIVE (NEGATIVE); Ketones NEGATIVE (NEGATIVE); Ph 5.5 (5-6); RBC NEGATIVE Ery/ul (0-5); Specific Gravity >=1.030 (1.005-1.025)
[2022-04-03 16:36] LABS: Dipstick done @ ? MAIN LAB; Nitrite NEGATIVE (NEGATIVE); Protein,Urine Dip 30 (Negative); Urobilinogen 0.2 mg/dL (0-1)
[2022-04-03 16:39] LABS: Mucus SLIGHT /HPF (NEGATIVE); RBC 0-2 /HPF (0-2); Urine Cultured Indicated? NO; WBC 0-2 /HPF (0-5)
[2022-04-03 16:49] LABS: Amphetamine,Urine NEGATIVE (NEGATIVE); Barbiturate,Urine NEGATIVE (NEGATIVE); Benzodiazepine,Urine NEGATIVE (NEGATIVE); Cocaine,Urine NEGATIVE (NEGATIVE); Methadone,Urine NEGATIVE (NEGATIVE); Opiate,Urine POSITIVE (NEGATIVE); PCP,Urine NEGATIVE (NEGATIVE); THC,Urine NEGATIVE (NEGATIVE)
[2022-04-03] MEDS ORDERED: HUMULIN R SQ PRN ×2 (17:55→19:15)
[2022-04-03] MEDS ORDERED: TYLENOL 325 MG PO PRN (17:55)
[2022-04-03] MEDS: Sodium Chloride 0.9% 1000 ML 1,000 ML IV SCH (18:06)
[2022-04-03] MEDS ORDERED: MORPHINE SULFATE ER PO PRN (19:25)
[2022-04-03] MEDS ORDERED: Nitrostat 0.4 MG Tablet SL PRN (19:27)
[2022-04-03] MEDS: SYNTHROID 100 MCG PO SCH (21:41)
[2022-04-03] MEDS: ELIQUIS 2.5 MG TABLET PO SCH (21:42)
[2022-04-03] MEDS: Zofran 4 MG/2 ML VIAL IV PRN (21:46)
[2022-04-04] MEDS: Sodium Chloride 0.9% 1000 ML 1,000 ML IV SCH (03:41)
[2022-04-04 05:16] LABS: Absolute Neutrophil Ct (ANC) 2.44 x10^3/uL (1.4-6.9); Basophil (Absolute #) 0.06 x10^3/uL (0-0.4); Eosinophil (Absolute #) 0.29 x10^3/uL (0-0.5); Hematocrit 34.7 % (35-47); Hemoglobin 10.6 g/dL (12.0-16.0); Lymphocyte (Absolute #) 1.73 x10^3/uL (1.0-4.6); Lymphocytes % 35.7 % (24.0-44.0); Mean Corpuscular Hemoglobin 28.1 pg (26-32); Mean Corpuscular Hgb Concent. 30.5 g/dL (32-36); Mean Platelet Volume 9.4 fL (7.5-11.0); Monocyte (Absolute #) 0.33 x10^3/uL (0.0-1.3); Monocytes % 6.8 % (0.0-12.0); Neutrophil % 50.3 % (36.0-66.0); Platelet Count 201 x10^3/uL (150-450); Red Blood Count 3.77 x10^6/uL (4.1-5.4); Red Cell Distribution Width 15.9 % (11.5-14.0); White Blood Count 4.9 x10^3/uL (4.0-10.5)
[2022-04-04 05:47] LABS: ALBUMIN 3.6 g/dL (3.5-5.0); ANION GAP 10.3 MEQ/L (5-15); BILIRUBIN,TOTAL 0.6 mg/dL (0.2-1.3); Calcium 8.3 mg/dL (8.4-10.2); Creatinine 1 1.48 mg/dL (0.52-1.04); EST GLOMERULAR FILTRATION RATE 37.6 ML/MIN; Total Protein 6.7 g/dL (6.3-8.2)
[2022-04-04] MEDS ORDERED: Zofran 4 MG/2 ML VIAL ONE (06:45)
[2022-04-04] MEDS: Zofran 4 MG/2 ML VIAL IV PRN (06:47)
[2022-04-04] MEDS ORDERED: Ms Contin 15 MG PO PRN (07:05)
[2022-04-04] MEDS ORDERED: MEDICATION INTERVENTION MC SCH (07:30)
[2022-04-04 07:32] VITALS: BP 121/79; PULSE 73; O2SAT 92
--- NOTE | 2022-04-04 08:18 | PCM.HP ---
History of Present Illness - Chief Complaint Chief Complaint: Hypotension History of Present Illness: is a 66 year old female patient of Dr Mccallum who presented to the ER after being found to be hypotensive in Dr Duarte's office, she states her bp has been low and she has been dizzy for the last 2 weeks since her meds were changed and she was started on jardiance and entresto by her EP doctor. she denies chest pain, no shortness of breath. she is normotensive this am and feels well after hydration, she is also on chronic narcotic therapy for pain. - Review of Systems Constitutional: No Fever, No Chills Respiratory: No Cough, No Short Of Breath Cardiac: No Chest Pain, No Edema, No Syncope Skin: No Rash All Other Systems: Reviewed and Negative Medications & Allergies Home Medications: Home Medication List Tizanidine HCl 4 mg PO TID PRN PRN 11/10/17 [History Confirmed 04/03/22] Furosemide [Lasix] 40 mg PO DAILY PRN PRN 03/09/18 [History Confirmed 04/03/22] Promethazine HCl 25 mg [Phenergan 25 mg] 25 mg PO Q6H PRN PRN 01/14/19 [History Confirmed 04/03/22] Levothyroxine Sodium [Synthroid] 200 mcg PO TID 04/29/19 [History Confirmed 04/03/22] Nitroglycerin 0.4 mg SL Q5MIN PRN MR X 3 PRN 04/29/19 [History Confirmed 04/03/22] Apixaban [Eliquis] 5 mg PO BID 1 Days 01/03/20 [Rx Confirmed 04/03/22] Amiodarone HCl 200 mg [Cordarone 200 MG] 100 mg PO DAILY 07/30/21 [History Confirmed 04/03/22] Morphine Sulfate [Morphine Sulfate ER] 30 mg PO Q8H PRN PRN 07/30/21 [History Confirmed 04/03/22] Famotidine 40 mg PO DAILY 03/12/22 [History Confirmed 04/03/22] Empagliflozin [Jardiance] 16 mg PO DAILY 04/03/22 [History Confirmed 04/03/22] Sacubitril/Valsartan [Entresto 24 mg-26 mg Tablet] 1 tab PO DAILY 04/03/22 [History Confirmed 04/03/22] Allergies/Adverse Reactions: Allergies Allergy/AdvReac Type Severity Reaction Status Date / Time baclofen Allergy Severe Difficulty Verified 04/03/22 13:32 Breathing Sulfa (Sulfonamide Allergy Severe Nausea and Verified 04/03/22 13:32 Antibiotics) Vomiting [Sulfa(Sulfonamide Antibiotics)] adhesive Allergy Mild Blisters Verified 04/03/22 13:32 codeine [Codeine] Allergy Mild Nausea and Verified 04/03/22 13:32 Vomiting iron AdvReac Intermediate Nausea Verified 04/03/22 13:32 oxycodone [From Percocet] AdvReac Intermediate Vomiting Verified 04/03/22 13:32 - Past Medical History Past Medical History: Yes Neurological History: Migraines, Stroke ENT History: No Pertinent History Cardiac History: Angina, Arrhythmia, Congestive Heart Failure, Coronary Artery Disease, Deep Vein Thrombosis, Other Respiratory History: Asthma Endocrine Medical History: Hypothyroidism, Thyroid Cancer Musculoskelatal History: Other GI Medical History: GERD, Hernia, Other History: Renal Disease, Other Pyscho-Social History: No Pertinent History Reproductive Disorders: Endometriosis Comment: HX Cardiac Arrest, HX Thyroid Removal, HX Back pain. HX A-Fib. Pre diabetic - Female History Are you now?: No - Past Surgical History Past Surgical History: Yes Neuro Surgical History: No Pertinent History Cardiac History: Cardiac Catheterization, Internal Defibrillator, Pacemaker, Other Respiratory Surgery: No Pertinent History GI Surgical History: Appendectomy, Cholecystectomy, Colon Resection, Hernia Repair, Other Genitourinary Surgical Hx: No Pertinent History Musculskeletal Surgical Hx: Orthopedic Surgery Female Surgical History: Hysterectomy Other Surgical History: THYROID REMOVED and Parotid gland removed; 40% and 50% blockages found with last heart cath about 4 years ago. ankle surgery d/t break,ileostomy, CVL port removed and replaced, Port placed. HX ostomy repair due to blockage 09/02, back surgery and 4 I&D september and october and november 2017. 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 TLIF fused discs in back. OCTOBER 2018 CAROTIDECTOMY AND LYMPH NODE REMOVAL ON RIGHT SIDE. Right Parotid gland removed. "filter for blood clots 2018" - Social History Smoking Status: Never smoker Exposure to second hand smoke: No Alcohol: None Drug Use: none Significant Family History: heart disease, cancer, diabetes - Physical Exam Vital Signs: Vital Signs - 24 hr Temp Pulse Resp BP Pulse Ox 04/04/22 07:32 97.1 F 73 16 121/79 92 L 04/04/22 04:00 97.1 F 72 16 112/65 96 04/04/22 00:00 97.1 F 70 17 92/59 95 04/03/22 20:00 97.9 F 78 18 103/60 95 04/03/22 18:07 97.9 F 78 18 103/60 95 04/03/22 16:36 70 16 99/56 97 04/03/22 15:12 70 16 92/66 99 04/03/22 14:35 91/65 04/03/22 14:06 72 14 87/59 95 04/03/22 13:17 96.1 F 71 15 87/59 93 L General Appearance: no apparent distress, alert Neurologic Exam: alert, oriented x 3 Respiratory Exam: normal breath sounds, lungs clear, No respiratory distress Cardiovascular Exam: regular rate/rhythm, normal heart sounds, normal peripheral pulses Gastrointestinal/Abdomen Exam: soft, normal bowel sounds, No tenderness, No mass Extremity Exam: normal inspection, normal range of motion, pelvis stable Skin Exam: normal color, warm, dry, No rash Results - Labs Lab/Micro Results: Lab Results-Last 24 Hours 04/03/22 04/03/22 04/03/22 Range/Units 13:35 13:35 13:35 WBC 5.6 (4.0-10.5) x10^3/uL RBC 4.25 (4.1-5.4) x10^6/uL Hgb 11.9 L (12.0-16.0) g/dL Hct 40.1 (35-47) % MCV 94.4 (78-100) fL MCH 28.0 (26-32) pg MCHC 29.7 L (32-36) g/dL RDW 16.3 H (11.5-14.0) % Plt Count 221 (150-450) x10^3/uL MPV 9.9 (7.5-11.0) fL Gran % 67.7 H (36.0-66.0) % Immature Gran % (Auto) 0.4 (0.00-0.4) % Nucleat RBC Rel Count 0.0 (0.00-0.1) % Eos # (Auto) 0.20 (0-0.5) x10^3/uL Immature Gran # (Auto) 0.02 (0.00-0.03) x10^3u/L Absolute Lymphs (auto) 1.19 (1.0-4.6) x10^3/uL Absolute Monos (auto) 0.31 (0.0-1.3) x10^3/uL Absolute Nucleated RBC 0.00 (0.00-0.01) x10^3u/L Lymphocytes % 21.2 L (24.0-44.0) % Monocytes % 5.5 (0.0-12.0) % Eosinophils % 3.6 (0.00-5.0) % Basophils % 1.6 (0.0-0.4) % Absolute Granulocytes 3.81 (1.4-6.9) x10^3/uL Basophils # 0.09 (0-0.4) x10^3/uL PT 11.5 (9.4-12.5) SECONDS INR 1.09 (0.8-3.0) Sodium 137 (137-145) mmol/L Potassium 3.9 (3.5-5.1) mmol/L Chloride 105 (98-107) mmol/L Carbon Dioxide 23 (22-30) mmol/L Anion Gap 13.5 (5-15) MEQ/L BUN 20 H (7-17) mg/dL Creatinine 2.01 H (0.52-1.04) mg/dL Estimated GFR 26.4 ML/MIN Glucose 131 H (74-106) mg/dL POC Glucometer (74 to 106) mg/dL Calcium 9.4 (8.4-10.2) mg/dL Total Bilirubin 0.80 (0.2-1.3) mg/dL AST 36 (14-36) U/L ALT 18 (0-35) U/L Alkaline Phosphatase 75 (38-126) U/L Troponin I (0.000-0.034) ng/mL NT-Pro-B Natriuret Pep 365 (0-900) pg/mL Serum Total Protein 7.7 (6.3-8.2) g/dL Albumin 4.2 (3.5-5.0) g/dL Thyroxine (T4) (5.53-10.96) ug/dL TSH 3rd Generation (0.47-4.68) mIU/L Urinalys Dipstick Clnc Urine Color (YELLOW) Urine Appearance (CLEAR) Urine pH (5-6) Ur Specific Blanchard (1.005-1.025) POC Urine Protein Conf (Negative) Urine Ketones (NEGATIVE) Urine Nitrite (NEGATIVE) Urine Bilirubin (NEGATIVE) Urine Urobilinogen (0-1) mg/dL Urine Leukocytes (NEGATIVE) Urine WBC (Auto) (0-5) /HPF Urine RBC (Auto) (0-2) /HPF U Epithel Cells (Auto) Urine Bacteria (Auto) Urine RBC (0-5) Hemal/ul Urine Mucus (Auto) (NEGATIVE) /HPF Ur Culture Indicated? Urine Glucose (NEGATIVE) mg/dL Urine Opiates Level (NEGATIVE) Ur Methadone (NEGATIVE) Urine Barbiturates (NEGATIVE) Ur Phencyclidine (PCP) (NEGATIVE) Urine Amphetamine (NEGATIVE) U Benzodiazepine Level (NEGATIVE) Urine Cocaine (NEGATIVE) Urine Marijuana (THC) (NEGATIVE) Influenza Type A Ag (NEGATIVE) Influenza Type B Ag (NEGATIVE) RSV (PCR) (Negative) SARS-CoV-2 (PCR) (NEGATIVE) 04/03/22 04/03/22 04/03/22 Range/Units 13:35 13:35 13:35 WBC (4.0-10.5) x10^3/uL RBC (4.1-5.4) x10^6/uL Hgb (12.0-16.0) g/dL Hct (35-47) % MCV (78-100) fL MCH (26-32) pg MCHC (32-36) g/dL RDW (11.5-14.0) % Plt Count (150-450) x10^3/uL MPV (7.5-11.0) fL Gran % (36.0-66.0) % Immature Gran % (Auto) (0.00-0.4) % Nucleat RBC Rel Count (0.00-0.1) % Eos # (Auto) (0-0.5) x10^3/uL Immature Gran # (Auto) (0.00-0.03) x10^3u/L Absolute Lymphs (auto) (1.0-4.6) x10^3/uL Absolute Monos (auto) (0.0-1.3) x10^3/uL Absolute Nucleated RBC (0.00-0.01) x10^3u/L Lymphocytes % (24.0-44.0) % Monocytes % (0.0-12.0) % Eosinophils % (0.00-5.0) % Basophils % (0.0-0.4) % Absolute Granulocytes (1.4-6.9) x10^3/uL Basophils # (0-0.4) x10^3/uL PT (9.4-12.5) SECONDS INR (0.8-3.0) Sodium (137-145) mmol/L Potassium (3.5-5.1) mmol/L Chloride (98-107) mmol/L Carbon Dioxide (22-30) mmol/L Anion Gap (5-15) MEQ/L BUN (7-17) mg/dL Creatinine (0.52-1.04) mg/dL Estimated GFR ML/MIN Glucose (74-106) mg/dL POC Glucometer (74 to 106) mg/dL Calcium (8.4-10.2) mg/dL Total Bilirubin (0.2-1.3) mg/dL AST (14-36) U/L ALT (0-35) U/L Alkaline Phosphatase (38-126) U/L Troponin I < 0.012 (0.000-0.034) ng/mL NT-Pro-B Natriuret Pep (0-900) pg/mL Serum Total Protein (6.3-8.2) g/dL Albumin (3.5-5.0) g/dL Thyroxine (T4) 1.80 L (5.53-10.96) ug/dL TSH 3rd Generation 133.000 H (0.47-4.68) mIU/L Urinalys Dipstick Clnc Urine Color (YELLOW) Urine Appearance (CLEAR) Urine pH (5-6) Ur Specific Blanchard (1.005-1.025) POC Urine Protein Conf (Negative) Urine Ketones (NEGATIVE) Urine Nitrite (NEGATIVE) Urine Bilirubin (NEGATIVE) Urine Urobilinogen (0-1) mg/dL Urine Leukocytes (NEGATIVE) Urine WBC (Auto) (0-5) /HPF Urine RBC (Auto) (0-2) /HPF U Epithel Cells (Auto) Urine Bacteria (Auto) Urine RBC (0-5) Hemal/ul Urine Mucus (Auto) (NEGATIVE) /HPF Ur Culture Indicated? Urine Glucose (NEGATIVE) mg/dL Urine Opiates Level (NEGATIVE) Ur Methadone (NEGATIVE) Urine Barbiturates (NEGATIVE) Ur Phencyclidine (PCP) (NEGATIVE) Urine Amphetamine (NEGATIVE) U Benzodiazepine Level (NEGATIVE) Urine Cocaine (NEGATIVE) Urine Marijuana (THC) (NEGATIVE) Influenza Type A Ag (NEGATIVE) Influenza Type B Ag (NEGATIVE) RSV (PCR) (Negative) SARS-CoV-2 (PCR) (NEGATIVE) 04/03/22 04/03/22 04/03/22 Range/Units 15:31 16:24 16:24 WBC (4.0-10.5) x10^3/uL RBC (4.1-5.4) x10^6/uL Hgb (12.0-16.0) g/dL Hct (35-47) % MCV (78-100) fL MCH (26-32) pg MCHC (32-36) g/dL RDW (11.5-14.0) % Plt Count (150-450) x10^3/uL MPV (7.5-11.0) fL Gran % (36.0-66.0) % Immature Gran % (Auto) (0.00-0.4) % Nucleat RBC Rel Count (0.00-0.1) % Eos # (Auto) (0-0.5) x10^3/uL Immature Gran # (Auto) (0.00-0.03) x10^3u/L Absolute Lymphs (auto) (1.0-4.6) x10^3/uL Absolute Monos (auto) (0.0-1.3) x10^3/uL Absolute Nucleated RBC (0.00-0.01) x10^3u/L Lymphocytes % (24.0-44.0) % Monocytes % (0.0-12.0) % Eosinophils % (0.00-5.0) % Basophils % (0.0-0.4) % Absolute Granulocytes (1.4-6.9) x10^3/uL Basophils # (0-0.4) x10^3/uL PT (9.4-12.5) SECONDS INR (0.8-3.0) Sodium (137-145) mmol/L Potassium (3.5-5.1) mmol/L Chloride (98-107) mmol/L Carbon Dioxide (22-30) mmol/L Anion Gap (5-15) MEQ/L BUN (7-17) mg/dL Creatinine (0.52-1.04) mg/dL Estimated GFR ML/MIN Glucose (74-106) mg/dL POC Glucometer (74 to 106) mg/dL Calcium (8.4-10.2) mg/dL Total Bilirubin (0.2-1.3) mg/dL AST (14-36) U/L ALT (0-35) U/L Alkaline Phosphatase (38-126) U/L Troponin I (0.000-0.034) ng/mL NT-Pro-B Natriuret Pep (0-900) pg/mL Serum Total Protein (6.3-8.2) g/dL Albumin (3.5-5.0) g/dL Thyroxine (T4) (5.53-10.96) ug/dL TSH 3rd Generation (0.47-4.68) mIU/L Urinalys Dipstick Clnc MAIN LAB Urine Color YELLOW (YELLOW) Urine Appearance CLEAR (CLEAR) Urine pH 5.5 (5-6) Ur Specific Blanchard >=1.030 A (1.005-1.025) POC Urine Protein Conf 30 A (Negative) Urine Ketones NEGATIVE (NEGATIVE) Urine Nitrite NEGATIVE (NEGATIVE) Urine Bilirubin SMALL A (NEGATIVE) Urine Urobilinogen 0.2 (0-1) mg/dL Urine Leukocytes NEGATIVE (NEGATIVE) Urine WBC (Auto) 0-2 (0-5) /HPF Urine RBC (Auto) 0-2 (0-2) /HPF U Epithel Cells (Auto) Not Reportable Urine Bacteria (Auto) Not Reportable Urine RBC NEGATIVE (0-5) Hemal/ul Urine Mucus (Auto) SLIGHT A (NEGATIVE) /HPF Ur Culture Indicated? NO Urine Glucose NEGATIVE (NEGATIVE) mg/dL Urine Opiates Level POSITIVE (NEGATIVE) Ur Methadone NEGATIVE (NEGATIVE) Urine Barbiturates NEGATIVE (NEGATIVE) Ur Phencyclidine (PCP) NEGATIVE (NEGATIVE) Urine Amphetamine NEGATIVE (NEGATIVE) U Benzodiazepine Level NEGATIVE (NEGATIVE) Urine Cocaine NEGATIVE (NEGATIVE) Urine Marijuana (THC) NEGATIVE (NEGATIVE) Influenza Type A Ag NEGATIVE (NEGATIVE) Influenza Type B Ag NEGATIVE (NEGATIVE) RSV (PCR) NEGATIVE (Negative) SARS-CoV-2 (PCR) NEGATIVE (NEGATIVE) 04/03/22 04/03/22 04/03/22 Range/Units 17:05 20:53 21:17 WBC (4.0-10.5) x10^3/uL RBC (4.1-5.4) x10^6/uL Hgb (12.0-16.0) g/dL Hct (35-47) % MCV (78-100) fL MCH (26-32) pg MCHC (32-36) g/dL RDW (11.5-14.0) % Plt Count (150-450) x10^3/uL MPV (7.5-11.0) fL Gran % (36.0-66.0) % Immature Gran % (Auto) (0.00-0.4) % Nucleat RBC Rel Count (0.00-0.1) % Eos # (Auto) (0-0.5) x10^3/uL Immature Gran # (Auto) (0.00-0.03) x10^3u/L Absolute Lymphs (auto) (1.0-4.6) x10^3/uL Absolute Monos (auto) (0.0-1.3) x10^3/uL Absolute Nucleated RBC (0.00-0.01) x10^3u/L Lymphocytes % (24.0-44.0) % Monocytes % (0.0-12.0) % Eosinophils % (0.00-5.0) % Basophils % (0.0-0.4) % Absolute Granulocytes (1.4-6.9) x10^3/uL Basophils # (0-0.4) x10^3/uL PT (9.4-12.5) SECONDS INR (0.8-3.0) Sodium (137-145) mmol/L Potassium (3.5-5.1) mmol/L Chloride (98-107) mmol/L Carbon Dioxide (22-30) mmol/L Anion Gap (5-15) MEQ/L BUN (7-17) mg/dL Creatinine (0.52-1.04) mg/dL Estimated GFR ML/MIN Glucose (74-106) mg/dL POC Glucometer 85 (74 to 106) mg/dL Calcium (8.4-10.2) mg/dL Total Bilirubin (0.2-1.3) mg/dL AST (14-36) U/L ALT (0-35) U/L Alkaline Phosphatase (38-126) U/L Troponin I < 0.012 < 0.012 (0.000-0.034) ng/mL NT-Pro-B Natriuret Pep (0-900) pg/mL Serum Total Protein (6.3-8.2) g/dL Albumin (3.5-5.0) g/dL Thyroxine (T4) (5.53-10.96) ug/dL TSH 3rd Generation (0.47-4.68) mIU/L Urinalys Dipstick Clnc Urine Color (YELLOW) Urine Appearance (CLEAR) Urine pH (5-6) Ur Specific Blanchard (1.005-1.025) POC Urine Protein Conf (Negative) Urine Ketones (NEGATIVE) Urine Nitrite (NEGATIVE) Urine Bilirubin (NEGATIVE) Urine Urobilinogen (0-1) mg/dL Urine Leukocytes (NEGATIVE) Urine WBC (Auto) (0-5) /HPF Urine RBC (Auto) (0-2) /HPF U Epithel Cells (Auto) Urine Bacteria (Auto) Urine RBC (0-5) Hemal/ul Urine Mucus (Auto) (NEGATIVE) /HPF Ur Culture Indicated? Urine Glucose (NEGATIVE) mg/dL Urine Opiates Level (NEGATIVE) Ur Methadone (NEGATIVE) Urine Barbiturates (NEGATIVE) Ur Phencyclidine (PCP) (NEGATIVE) Urine Amphetamine (NEGATIVE) U Benzodiazepine Level (NEGATIVE) Urine Cocaine (NEGATIVE) Urine Marijuana (THC) (NEGATIVE) Influenza Type A Ag (NEGATIVE) Influenza Type B Ag (NEGATIVE) RSV (PCR) (Negative) SARS-CoV-2 (PCR) (NEGATIVE) 04/04/22 04/04/22 04/04/22 Range/Units 05:00 05:00 06:47 WBC 4.9 (4.0-10.5) x10^3/uL RBC 3.77 L (4.1-5.4) x10^6/uL Hgb 10.6 L (12.0-16.0) g/dL Hct 34.7 L (35-47) % MCV 92.0 (78-100) fL MCH 28.1 (26-32) pg MCHC 30.5 L (32-36) g/dL RDW 15.9 H (11.5-14.0) % Plt Count 201 (150-450) x10^3/uL MPV 9.4 (7.5-11.0) fL Gran % 50.3 (36.0-66.0) % Immature Gran % (Auto) 0.0 (0.00-0.4) % Nucleat RBC Rel Count 0.0 (0.00-0.1) % Eos # (Auto) 0.29 (0-0.5) x10^3/uL Immature Gran # (Auto) 0.00 (0.00-0.03) x10^3u/L Absolute Lymphs (auto) 1.73 (1.0-4.6) x10^3/uL Absolute Monos (auto) 0.33 (0.0-1.3) x10^3/uL Absolute Nucleated RBC 0.00 (0.00-0.01) x10^3u/L Lymphocytes % 35.7 (24.0-44.0) % Monocytes % 6.8 (0.0-12.0) % Eosinophils % 6.0 H (0.00-5.0) % Basophils % 1.2 (0.0-0.4) % Absolute Granulocytes 2.44 (1.4-6.9) x10^3/uL Basophils # 0.06 (0-0.4) x10^3/uL PT (9.4-12.5) SECONDS INR (0.8-3.0) Sodium 137 (137-145) mmol/L Potassium 4.0 (3.5-5.1) mmol/L Chloride 107 (98-107) mmol/L Carbon Dioxide 24 (22-30) mmol/L Anion Gap 10.3 (5-15) MEQ/L BUN 19 H (7-17) mg/dL Creatinine 1.48 H (0.52-1.04) mg/dL Estimated GFR 37.6 ML/MIN Glucose 88 (74-106) mg/dL POC Glucometer 76 (74 to 106) mg/dL Calcium 8.3 L (8.4-10.2) mg/dL Total Bilirubin 0.60 (0.2-1.3) mg/dL AST 26 (14-36) U/L ALT 15 (0-35) U/L Alkaline Phosphatase 69 (38-126) U/L Troponin I (0.000-0.034) ng/mL NT-Pro-B Natriuret Pep 397 (0-900) pg/mL Serum Total Protein 6.7 (6.3-8.2) g/dL Albumin 3.6 (3.5-5.0) g/dL Thyroxine (T4) (5.53-10.96) ug/dL TSH 3rd Generation (0.47-4.68) mIU/L Urinalys Dipstick Clnc Urine Color (YELLOW) Urine Appearance (CLEAR) Urine pH (5-6) Ur Specific Blanchard (1.005-1.025) POC Urine Protein Conf (Negative) Urine Ketones (NEGATIVE) Urine Nitrite (NEGATIVE) Urine Bilirubin (NEGATIVE) Urine Urobilinogen (0-1) mg/dL Urine Leukocytes (NEGATIVE) Urine WBC (Auto) (0-5) /HPF Urine RBC (Auto) (0-2) /HPF U Epithel Cells (Auto) Urine Bacteria (Auto) Urine RBC (0-5) Hemal/ul Urine Mucus (Auto) (NEGATIVE) /HPF Ur Culture Indicated? Urine Glucose (NEGATIVE) mg/dL Urine Opiates Level (NEGATIVE) Ur Methadone (NEGATIVE) Urine Barbiturates (NEGATIVE) Ur Phencyclidine (PCP) (NEGATIVE) Urine Amphetamine (NEGATIVE) U Benzodiazepine Level (NEGATIVE) Urine Cocaine (NEGATIVE) Urine Marijuana (THC) (NEGATIVE) Influenza Type A Ag (NEGATIVE) Influenza Type B Ag (NEGATIVE) RSV (PCR) (Negative) SARS-CoV-2 (PCR) (NEGATIVE) Accuchecks Date 04/04/22 Assessment/Plan (1) Hypotension Current Visit: Yes Status: Acute Assessment & Plan: bp normalized with hydration, will d/c entresto as she is on the lowest dose, restart low dose metoprolol and have her f/u with Dr Duarte Code(s): I95.9 - HYPOTENSION, UNSPECIFIED (2) Hypothyroidism Current Visit: Yes Status: Chronic Qualifiers: Assessment & Plan: patient on synthroid 200mcg po tid with elevated tsh and low t4. recommend outpatient endocrinology consult Code(s): E03.9 - HYPOTHYROIDISM, UNSPECIFIED (3) Chronic pain Current Visit: Yes Status: Acute Code(s): G89.29 - OTHER CHRONIC PAIN
--- NOTE | 2022-04-04 08:21 | PCM.DCORD ---
- Discharge Disposition: Home, Self-Care Condition: Good Prescriptions: New Metoprolol Succinate 25 mg Xl* [Toprol-Xl 25MG Tablets] 25 mg PO DAILY #30 tab Continue Tizanidine HCl 4 mg PO TID PRN PRN PRN Reason: Pain Furosemide [Lasix] 40 mg PO DAILY PRN PRN PRN Reason: swelling Promethazine HCl 25 mg [Phenergan 25 mg] 25 mg PO Q6H PRN PRN PRN Reason: Nausea/Vomiting Levothyroxine Sodium [Synthroid] 200 mcg PO TID Nitroglycerin 0.4 mg SL Q5MIN PRN MR X 3 PRN PRN Reason: Chest Pain Apixaban [Eliquis] 5 mg PO BID 1 Days Morphine Sulfate [Morphine Sulfate ER] 30 mg PO Q8H PRN PRN PRN Reason: Pain Amiodarone HCl 200 mg [Cordarone 200 MG] 100 mg PO DAILY Famotidine 40 mg PO DAILY Empagliflozin [Jardiance] 16 mg PO DAILY Discontinued Sacubitril/Valsartan [Entresto 24 mg-26 mg Tablet] 1 tab PO DAILY Follow up with: WAQAR CASTRO [Primary Care Provider] - KEYA KUMAR [Family Provider] -
[2022-04-04] MEDS: SYNTHROID 100 MCG PO SCH (09:47)
[2022-04-04] MEDS: ELIQUIS 2.5 MG TABLET PO SCH (09:47)
[2022-04-04] MEDS ORDERED: JARDIANCE PO SCH (10:00)
[2022-04-04] MEDS ORDERED: NON-FORMULARY ITEM (Sacubitril/Valsartan [Entresto 24 Mg-26 Mg Tablet] 1 EACH Tablet) PO SCH (10:00)
[2022-04-04] MEDS ORDERED: ENTRESTO 49 MG-51 MG TABLET PO SCH (10:00)
[2022-04-04] MEDS ORDERED: Cordarone 200 MG PO SCH (10:00)
[2022-04-04] MEDS ORDERED: NON-FORMULARY ITEM (Famotidine [Famotidine] 40 MG Tablet) PO SCH (10:00)
[2022-04-04] MEDS ORDERED: Pepcid 20 MG PO SCH (10:00)
== END 2022-04-04 10:30 | disposition home or self-care (01) ==
LOC: ED 12:59 → MED SURG 17:54
PROVIDERS: ADMIT Family Medicine; ATTEND Family Medicine
DX: I95.9 Hypotension, unspecified (principal); E03.9 Hypothyroidism, unspecified; G89.29 Other chronic pain; R73.03 Prediabetes; I50.9 Heart failure, unspecified; I25.10 Atherosclerotic heart disease of native coronary artery without angina pectoris; Z79.01 Long term (current) use of anticoagulants; Z79.899 Other long term (current) drug therapy; Z20.828 Contact with and (suspected) exposure to other viral communicable diseases; Z85.850 Personal history of malignant neoplasm of thyroid
CPT/HCPCS: 0241U; 36000; 36415; 80053; 80307; 81015; 82947; 83880; 84436; 84443; 84484; 85025; 85610; 93005; 93041; 94760; 96374; 99285; 99291; P9612; 93268; J2310; J2405; A9270-GY; G0378

== ENCOUNTER 2022-05-18 09:07 | Inpatient (IN) | payer MEDICARE ==
[2022-05-18] MEDS ORDERED: Sodium Chloride 0.9% 500 ML 500 ML IV ONE ×2 (09:42→09:46)
[2022-05-18 09:56] LABS: Absolute Neutrophil Ct (ANC) 3.06 x10^3/uL (1.4-6.9); Basophil (Absolute #) 0.06 x10^3/uL (0-0.4); Eosinophil (Absolute #) 0.09 x10^3/uL (0-0.5); Hematocrit 35.1 % (35-47); Hemoglobin 10.8 g/dL (12.0-16.0); Lymphocyte (Absolute #) 0.98 x10^3/uL (1.0-4.6); Lymphocytes % 21.5 % (24.0-44.0); Mean Cell Volume 93.9 fL (78-100); Mean Corpuscular Hemoglobin 28.9 pg (26-32); Mean Corpuscular Hgb Concent. 30.8 g/dL (32-36); Mean Platelet Volume 9.5 fL (7.5-11.0); Monocyte (Absolute #) 0.35 x10^3/uL (0.0-1.3); Monocytes % 7.7 % (0.0-12.0); Neutrophil % 67.3 % (36.0-66.0); Platelet Count 241 x10^3/uL (150-450); Red Blood Count 3.74 x10^6/uL (4.1-5.4); Red Cell Distribution Width 15.6 % (11.5-14.0); White Blood Count 4.6 x10^3/uL (4.0-10.5)
[2022-05-18 10:17] LABS: ALBUMIN 4.2 g/dL (3.5-5.0); ANION GAP 10.7 MEQ/L (5-15); BILIRUBIN,TOTAL 1.2 mg/dL (0.2-1.3); Calcium 8.9 mg/dL (8.4-10.2); Creatinine 1 1.2 mg/dL (0.52-1.04); EST GLOMERULAR FILTRATION RATE 47.9 ML/MIN; Potassium 3.5 mmol/L (3.5-5.1); Total Protein 7.7 g/dL (6.3-8.2)
[2022-05-18] MEDS ORDERED: Zofran 4 MG/2 ML VIAL IV ONE (13:31)
[2022-05-18] MEDS ORDERED: MORPHINE SULFATE 4 MG INJ IV ONE (13:31)
[2022-05-18] MEDS ORDERED: MORPHINE SULFATE 4 MG INJ ONE (13:36)
[2022-05-18] MEDS ORDERED: Zofran 4 MG/2 ML VIAL ONE (13:36)
--- NOTE | 2022-05-18 14:01 | ERPHSYRPT ---
- History of Present Illness Time Seen by Provider: 05/18/22 09:40 Historian: patient Exam Limitations: no limitations Patient Subjective Stated Complaint: Pt c/o of chest pain, left leg pain Triage Nursing Assessment: Pt brought to the ER by her , vitals wnl, rates pain as 8/10, unable to raise left leg at all, able to raise left arm appr ox 12 inches, pulses normal, chest pain to her left shoulder and goes down to her bra line in the back and radiates to along the line to irais sides, edema to irais lower legs Physician History: 66-year-old female with history of atrial fibrillation status post ICD implant on Eliquis, hypertension, congestive heart failure presented in the ER with chief complaint of chest pain off and on for the last 4 days and having weakness in the left upper and lower extremities. Patient reports she was taken to [facility] 4 days ago with chest pain and work-up turned out to be negative and while in the ER she had some seizure-like activity which was not witnessed by but after work-up she was discharged. Since then she is having difficulty moving the left lower extremity and some weakness in the left upper as well. She can hardly lift her leg against the gravity. No numbness or tingling sensation. Today again she is having dull aching substernal chest pain without difficulty breathing. Patient continues to have Eliquis since all this started. Has chronic back pain and takes morphine and is fairly controlled. Denies any fall or trauma. also report patient is more sleepy and have moments of confusion since all this started. Timing/Duration: day(s) (4), intermittent Activities at Onset: rest Quality: dullness Location: substernal Chest Pain Radiation: no radiation Severity of Pain-Max: moderate Severity of Pain-Current: mild Modifying Factors: Improves With: nothing Associated Symptoms: fatigue, weakness Nitro Today/Relief: no nitro taken today Aspirin Treatment Today: no aspirin today Allergies/Adverse Reactions: baclofen Allergy (Severe, Verified 05/18/22 09:38) Difficulty Breathing pt states stopped breathing Sulfa (Sulfonamide Antibiotics) [Sulfa(Sulfonamide Antibiotics)] Allergy (Severe, Verified 05/18/22 09:38) Nausea and Vomiting adhesive Allergy (Mild, Verified 05/18/22 09:38) Blisters codeine [Codeine] Allergy (Mild, Verified 05/18/22 09:38) Nausea and Vomiting iron Adverse Reaction (Intermediate, Verified 05/18/22 09:38) Nausea oxycodone [From Percocet] Adverse Reaction (Intermediate, Verified 05/18/22 0 9:38) Vomiting Home Medications: Tizanidine HCl 4 mg PO TID PRN PRN 11/10/17 [History] Furosemide [Lasix] 40 mg PO DAILY PRN PRN 03/09/18 [History] Promethazine HCl 25 mg [Phenergan 25 mg] 25 mg PO Q6H PRN PRN 01/14/19 [History] Levothyroxine Sodium [Synthroid] 200 mcg PO TID 04/29/19 [History] Nitroglycerin 0.4 mg SL Q5MIN PRN MR X 3 PRN 04/29/19 [History] Amiodarone HCl 200 mg [Cordarone 200 MG] 100 mg PO DAILY 07/30/21 [History] Morphine Sulfate [Morphine Sulfate ER] 30 mg PO BID 07/30/21 [History] Famotidine 40 mg PO DAILY 03/12/22 [History] Hydralazine HCl 10 mg PO QID 05/18/22 [History] Hx Tetanus, Diphtheria Vaccination/Date Given: Yes Hx Influenza Vaccination/Date Given: Yes Hx Pneumococcal Vaccination/Date Given: No Travel Risk - International Travel Have you traveled outside of the country in past 3 weeks: No - Coronavirus Screening Are you exhibiting any of the following symptoms?: No Close contact with a COVID-19 positive Pt in past 14-21 Days: No - Vaccine Status Have you recieved a Covid-19 vaccination: No - Review of Systems Constitutional: Fatigue, Weakness Eyes: No Symptoms Ears, Nose, & Throat: No Symptoms Respiratory: No Symptoms Cardiac: Chest Pain Abdominal/Gastrointestinal: No Symptoms Genitourinary Symptoms: No Symptoms Musculoskeletal: Arthralgias, Back Pain Skin: No Symptoms Neurological: Focal Weakness, Gait Changes Psychological: No Symptoms Endocrine: No Symptoms Hematologic/Lymphatic: No Symptoms Immunological/Allergic: No Symptoms - Past Medical History Pertinent Past Medical History: Yes Neurological History: Migraines, Stroke ENT History: No Pertinent History Cardiac History: Angina, Arrhythmia, Congestive Heart Failure, Coronary Artery Disease, Deep Vein Thrombosis, Other Respiratory History: Asthma Endocrine Medical History: Hypothyroidism, Thyroid Cancer Musculoskeletal History: Other GI Medical History: GERD, Hernia, Other History: Renal Disease, Other Psycho-Social History: No Pertinent History Female Reproductive Disorders: Endometriosis Other Medical History: HX Cardiac Arrest, HX Thyroid Removal, HX Back pain. HX A-Fib. Pre diabetic - Past Surgical History Past Surgical History: Yes Neuro Surgical History: No Pertinent History Cardiac: Cardiac Catheterization, Internal Defibrillator, Pacemaker, Other Respiratory: No Pertinent History Gastrointestinal: Appendectomy, Cholecystectomy, Colon Resection, Hernia Repair, Other Genitourinary: No Pertinent History Musculoskeletal: Orthopedic Surgery Female Surgical History: Hysterectomy Other Surgical History: THYROID REMOVED and Parotid gland removed; 40% and 50% b lockages found with last heart cath about 4 years ago. ankle surgery d/t break,ileostomy, CVL port removed and replaced, Port placed. HX ostomy repair due to blockage 09/02, back surgery and 4 I&D september and october and november 2017. 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 TLIF fused discs in back. OCTOBER 2018 CAROTIDECTOMY AND LYMPH NODE REMOVAL ON RIGHT SIDE. Right Parotid gland removed. "filter for blood clots 2018" - Social History Smoking Status: Never smoker Exposure to second hand smoke: No Alcohol Use: None Drug Use: none Patient Lives Alone: No Significant Family History: heart disease, cancer, diabetes - Nursing Vital Signs Nursing Vital Signs: Initial Vital Signs Temperature 97.7 F 05/18/22 09:16 Pulse Rate 70 05/18/22 09:16 Blood Pressure 121/83 05/18/22 09:16 O2 Sat by Pulse Oximetry 97 05/18/22 09:16 Pain Scale Pain Intensity 8 - Physical Exam General Appearance: no apparent distress, alert Eye Exam: PERRL/EOMI, eyes nml inspection Ears, Nose, Throat Exam: normal ENT inspection, TMs normal, pharynx normal, moist mucous membranes Neck Exam: normal inspection, supple, full range of motion Respiratory Exam: normal breath sounds, lungs clear Cardiovascular Exam: normal heart sounds, irregular Gastrointestinal/Abdomen Exam: soft, normal bowel sounds, No tenderness Extremity Exam: normal inspection, pelvis stable Neurologic Exam: alert, oriented x 3, cooperative, [employer] II-XII nml as tested, motor weakness (Left upper extremity 4/5, left lower extremity 2 / 5. Positive drift left upper extremity. Left lower extremity can hardly lift above his head. Decreased sensations to touch on the left side. Abnormal finger-nose on the left but normal [id number].), No normal mood/affect Skin Exam: normal color SpO2 Interpretation: normal SpO2: 94 O2 Delivery: Room Air - Course EKG Interpreted by Me: RATE (74, paced), A-fib, Right Lowber Deviation, prolonged QT interval, Non-specific ST Changes Ordered Tests: Active Orders 24 hr Category Date Time Status Tracer Lathe Set Up Operator STAT Care 05/18/22 09:41 Active EKG-ER Only STAT Care 05/18/22 09:40 Active IV Insertion STAT Care 05/18/22 09:40 Active NPO (ED) STAT Care 05/18/22 09:41 Active CHEST 1 VIEW (PORTABLE) Stat Exams 05/18/22 10:51 Taken HEAD WITHOUT CONTRAST [CT] Stat Exams 05/18/22 10:28 Taken BLOOD CULTURE Stat Lab 05/18/22 09:30 Ordered CBC W DIFF Stat Lab 05/18/22 09:30 Completed CK-Creatinine Phosphokinase Stat Lab 05/18/22 09:30 Completed CMP Stat Lab 05/18/22 09:30 Completed Lactic Acid Stat Lab 05/18/22 09:41 Completed MAGNESIUM Stat Lab 05/18/22 09:30 Completed NT PRO BNP Stat Lab 05/18/22 09:30 Completed PROCALCITONIN Stat Lab 05/18/22 09:30 Completed TROPONIN Q4H Lab 05/18/22 09:30 Completed TROPONIN Q4H Lab 05/18/22 13:45 Ordered TROPONIN Q4H Lab 05/18/22 17:45 Ordered UA W/RFX CULTURE Stat Lab 05/18/22 14:01 Ordered Urine Triage Profile Stat Lab 05/18/22 14:01 Ordered Transfer Order Routine Transfer 05/18/22 Ordered Medication Summary Discontinued Medications Generic Name Dose Route Start Last Admin Trade Name Freq PRN Reason Stop Dose Admin Sodium Chloride 500 mls @ 500 mls/hr 05/18/22 09:42 05/18/22 11:27 Sodium Chloride 0.9% 500 Ml IV 05/18/22 10:41 Infused .Q1H ONE Infusion Sodium Chloride Confirm 05/18/22 09:46 Sodium Chloride 0.9% 500 Ml Administered 05/18/22 09:47 Dose 500 mls @ ud IV .STK-MED ONE Morphine Sulfate 4 mg 05/18/22 13:31 05/18/22 13:38 Morphine Sulfate 4 Mg/Ml Injection IV 05/18/22 13:32 4 mg STAT ONE Administration Morphine Sulfate Confirm 05/18/22 13:36 Morphine Sulfate 4 Mg/Ml Injection Administered 05/18/22 13:37 Dose 4 mg .ROUTE .STK-MED ONE Ondansetron HCl 4 mg 05/18/22 13:31 05/18/22 13:37 Ondansetron Hcl 4 Mg/2 Ml Vial IV 05/18/22 13:32 4 mg STAT ONE Administration Ondansetron HCl Confirm 05/18/22 13:36 Ondansetron Hcl 4 Mg/2 Ml Vial Administered 05/18/22 13:37 Dose 4 mg .ROUTE .STK-MED ONE Lab/Rad Data: Laboratory Result Diagrams 05/18/22 09:30 05/18/22 09:30 Laboratory Results 05/18/22 05/18/22 05/18/22 Range/Units 09:41 09:30 09:30 WBC (4.0-10.5) x10^3/uL RBC (4.1-5.4) x10^6/uL Hgb (12.0-16.0) g/dL Hct (35-47) % MCV (78-100) fL MCH (26-32) pg MCHC (32-36) g/dL RDW (11.5-14.0) % Plt Count (150-450) x10^3/uL MPV (7.5-11.0) fL Gran % (36.0-66.0) % Immature Gran % (Auto) (0.00-0.4) % Nucleat RBC Rel Count (0.00-0.1) % Eos # (Auto) (0-0.5) x10^3/uL Immature Gran # (Auto) (0.00-0.03) x10^3u/L Absolute Lymphs (auto) (1.0-4.6) x10^3/uL Absolute Monos (auto) (0.0-1.3) x10^3/uL Absolute Nucleated RBC (0.00-0.01) x10^3u/L Lymphocytes % (24.0-44.0) % Monocytes % (0.0-12.0) % Eosinophils % (0.00-5.0) % Basophils % (0.0-0.4) % Absolute Granulocytes (1.4-6.9) x10^3/uL Basophils # (0-0.4) x10^3/uL Sodium (137-145) mmol/L Potassium (3.5-5.1) mmol/L Chloride (98-107) mmol/L Carbon Dioxide (22-30) mmol/L Anion Gap (5-15) MEQ/L BUN (7-17) mg/dL Creatinine (0.52-1.04) mg/dL Estimated GFR ML/MIN Glucose (74-106) mg/dL Lactic Acid 1.5 (0.4-2.0) Calcium (8.4-10.2) mg/dL Magnesium (1.6-2.3) mg/dL Total Bilirubin (0.2-1.3) mg/dL AST (14-36) U/L ALT (0-35) U/L Alkaline Phosphatase (38-126) U/L Creatine Kinase (30-135) U/L Troponin I < 0.012 (0.000-0.034) ng/mL NT-Pro-B Natriuret Pep (0-900) pg/mL Serum Total Protein (6.3-8.2) g/dL Albumin (3.5-5.0) g/dL Procalcitonin 0.050 (0.030-0.080) ng/mL 05/18/22 05/18/22 05/18/22 Range/Units 09:30 09:30 09:30 WBC 4.6 (4.0-10.5) x10^3/uL RBC 3.74 L (4.1-5.4) x10^6/uL Hgb 10.8 L (12.0-16.0) g/dL Hct 35.1 (35-47) % MCV 93.9 (78-100) fL MCH 28.9 (26-32) pg MCHC 30.8 L (32-36) g/dL RDW 15.6 H (11.5-14.0) % Plt Count 241 (150-450) x10^3/uL MPV 9.5 (7.5-11.0) fL Gran % 67.3 H (36.0-66.0) % Immature Gran % (Auto) 0.2 (0.00-0.4) % Nucleat RBC Rel Count 0.0 (0.00-0.1) % Eos # (Auto) 0.09 (0-0.5) x10^3/uL Immature Gran # (Auto) 0.01 (0.00-0.03) x10^3u/L Absolute Lymphs (auto) 0.98 L (1.0-4.6) x10^3/uL Absolute Monos (auto) 0.35 (0.0-1.3) x10^3/uL Absolute Nucleated RBC 0.00 (0.00-0.01) x10^3u/L Lymphocytes % 21.5 L (24.0-44.0) % Monocytes % 7.7 (0.0-12.0) % Eosinophils % 2.0 (0.00-5.0) % Basophils % 1.3 (0.0-0.4) % Absolute Granulocytes 3.06 (1.4-6.9) x10^3/uL Basophils # 0.06 (0-0.4) x10^3/uL Sodium 138 (137-145) mmol/L Potassium 3.5 (3.5-5.1) mmol/L Chloride 105 (98-107) mmol/L Carbon Dioxide 25 (22-30) mmol/L Anion Gap 10.7 (5-15) MEQ/L BUN 13 (7-17) mg/dL Creatinine 1.20 H (0.52-1.04) mg/dL Estimated GFR 47.9 ML/MIN Glucose 107 H (74-106) mg/dL Lactic Acid (0.4-2.0) Calcium 8.9 (8.4-10.2) mg/dL Magnesium 1.7 (1.6-2.3) mg/dL Total Bilirubin 1.20 (0.2-1.3) mg/dL AST 28 (14-36) U/L ALT 12 (0-35) U/L Alkaline Phosphatase 97 (38-126) U/L Creatine Kinase 169 H (30-135) U/L Troponin I (0.000-0.034) ng/mL NT-Pro-B Natriuret Pep 2940 H (0-900) pg/mL Serum Total Protein 7.7 (6.3-8.2) g/dL Albumin 4.2 (3.5-5.0) g/dL Procalcitonin (0.030-0.080) ng/mL - Progress Progress: improved Air Movement: good Progress Note: 05/18/22 13:57 56-year-old is evaluated for chest pain and left-sided weakness.She is made stroke activated, prompt CT head is obtained. Patient is not in the window for any kind of intervention presented with 4 days and she is on Eliquis. CT head is negative. EKG showed A. fib paced and negative initial troponins. Chest x- ray no obvious acute cardiopulmonary findings reviewed by me, official report is pending. Normal lactate and procalcitonin. Obtained tele neuro consult, recommended brain MRI after making sure that patient pacemaker defibrillator is compatible with MRI and if not then CTAs and other stroke work-up. Patient will also be started on statin. Discussed with Dr. Castro, reviewed history, work-up and patient is okay to be admitted with telemetry here. Blood Culture(s) Obtained: No Antibiotics given: No Discussed with DrMargarita: Amaya Will see patient in: hospital (observation) Counseled pt/family regarding: lab results, diagnosis, rad results - Departure Departure Disposition: Observation Clinical Impression: Stroke Chest pain Qualifiers: Chest pain type: precordial pain Qualified Code(s): R07.2 - Precordial pain Condition: Stable Critical Care Time: No Referrals: WAQAR CASTRO [Primary Care Provider] - Follow up/PCP as directed
[2022-05-18 14:24] LABS: Appearance CLEAR (CLEAR); Bilirubin NEGATIVE (NEGATIVE); Dipstick done @ ? MAIN LAB; Glucose NEGATIVE (NEGATIVE); Ketones NEGATIVE (NEGATIVE); Nitrite NEGATIVE (NEGATIVE); Ph 5.5 (5-6); Protein,Urine Dip 30 (Negative); RBC NEGATIVE Ery/ul (0-5); Specific Gravity >=1.030 (1.005-1.025); Urobilinogen 0.2 mg/dL (0-1)
[2022-05-18 14:27] LABS: Bacteria RARE /HPF (NEGATIVE); Epithelial Cells RARE /HPF (FEW); Hyaline Casts 0-2 /LPF (0-2); Mucus SLIGHT /HPF (NEGATIVE)
[2022-05-18 14:28] LABS: Urine Cultured Indicated? YES
[2022-05-18 14:35] LABS: Amphetamine,Urine NEGATIVE (NEGATIVE); Barbiturate,Urine NEGATIVE (NEGATIVE); Benzodiazepine,Urine NEGATIVE (NEGATIVE); Cocaine,Urine NEGATIVE (NEGATIVE); Methadone,Urine NEGATIVE (NEGATIVE); Opiate,Urine POSITIVE (NEGATIVE); PCP,Urine NEGATIVE (NEGATIVE); THC,Urine NEGATIVE (NEGATIVE)
[2022-05-18 14:40] LABS: INFLUENZA A NEGATIVE (NEGATIVE); INFLUENZA B NEGATIVE (NEGATIVE); RESPIRATORY SYNCTIAL VIRUS NEGATIVE (Negative); SARS-CoV-2 Xpert Express NEGATIVE (NEGATIVE)
[2022-05-18] MEDS ORDERED: HUMALOG SQ PRN (15:05)
[2022-05-18] MEDS ORDERED: TYLENOL 325 MG PO PRN (15:05)
[2022-05-18] MEDS ORDERED: Zofran 4 MG/2 ML VIAL IV PRN (15:05)
[2022-05-18] MEDS ORDERED: DUONEB 0.5-3 MG/3 ml Neb IH PRN (15:05)
[2022-05-18] MEDS: MORPHINE SULFATE 2 MG INJ IV PRN ×2 (15:53→20:56)
[2022-05-18] MEDS: PROTONIX 40 MG IV IV SCH (15:53)
[2022-05-18] MEDS ORDERED: Apresoline 25 MG TABLET PO PRN (16:48)
[2022-05-18] MEDS ORDERED: Zanaflex 4 MG PO PRN (16:52)
--- NOTE | 2022-05-18 18:06 | XRAY ---
Indication: Chest pain. Comparison: April 01, 2022 Portable chest remains inflated and clear. Heart now within normal limits for portable technique again with left AICD and left Port-A-Cath. Bony thorax intact again with osteopenia. No new/acute findings.
--- NOTE | 2022-05-18 20:16 | XRAY ---
Indication: Left-sided weakness. Multiple contiguous images obtained through the head without contrast. Comparison: November 23, 2021 Again age-appropriate global atrophy, moderate periventricular degenerative micro-ischemia bilaterally, and multifocal old bilateral cerebral infarcts. No acute intracranial hemorrhage, hydrocephalus, or mass effect. Fourth ventricle is midline. Bony calvarium intact. Visualized paranasal sinuses and mastoid air cells are clear. Impression: Continued nonacute senile brain with old multifocal bilateral infarcts. Comment: Preliminary interpretation made by [facility]. No critical discrepancy.
[2022-05-18] MEDS: ZOCOR 20MG PO SCH (20:55)
[2022-05-18] MEDS: PHENERGAN 25 MG PO PRN (21:03)
[2022-05-19 05:40] LABS: Absolute Neutrophil Ct (ANC) 3.03 x10^3/uL (1.4-6.9); Basophil (Absolute #) 0.05 x10^3/uL (0-0.4); Eosinophil % 1.9 % (0.00-5.0); Hematocrit 35.3 % (35-47); Hemoglobin 10.5 g/dL (12.0-16.0); Lymphocyte (Absolute #) 1.62 x10^3/uL (1.0-4.6); Lymphocytes % 31.2 % (24.0-44.0); Mean Cell Volume 94.1 fL (78-100); Mean Corpuscular Hgb Concent. 29.7 g/dL (32-36); Mean Platelet Volume 9.4 fL (7.5-11.0); Monocyte (Absolute #) 0.39 x10^3/uL (0.0-1.3); Monocytes % 7.5 % (0.0-12.0); Neutrophil % 58.2 % (36.0-66.0); Platelet Count 219 x10^3/uL (150-450); Red Blood Count 3.75 x10^6/uL (4.1-5.4); Red Cell Distribution Width 15.9 % (11.5-14.0); White Blood Count 5.2 x10^3/uL (4.0-10.5)
[2022-05-19 06:01] LABS: ALBUMIN 3.8 g/dL (3.5-5.0); ANION GAP 9.3 MEQ/L (5-15); BILIRUBIN,TOTAL 0.7 mg/dL (0.2-1.3); Calcium 8.7 mg/dL (8.4-10.2); Creatinine 1 1.33 mg/dL (0.52-1.04); EST GLOMERULAR FILTRATION RATE 42.6 ML/MIN; Potassium 4.2 mmol/L (3.5-5.1); Total Protein 7.2 g/dL (6.3-8.2)
[2022-05-19 06:09] LABS: Risk Ratio 3.1
[2022-05-19] MEDS: MORPHINE SULFATE 2 MG INJ IV PRN ×4 (07:16→18:47)
[2022-05-19] MEDS ORDERED: Nitrostat 0.4 MG Tablet SL PRN (07:41)
[2022-05-19] MEDS: PHENERGAN 25 MG PO PRN ×2 (09:11→16:31)
[2022-05-19] MEDS ORDERED: NON-FORMULARY ITEM (Apixaban [Eliquis] 5 MG Tablet) PO SCH (10:00)
[2022-05-19] MEDS ORDERED: NON-FORMULARY ITEM (Famotidine [Famotidine] 40 MG Tablet) PO SCH (10:00)
[2022-05-19] MEDS ORDERED: NON-FORMULARY ITEM (Morphine Sulfate [Morphine Sulfate Er] 30 MG Tablet.Er) PO SCH (10:00)
[2022-05-19] MEDS ORDERED: LEVOTHYROXINE SODIUM 300 MCG PO SCH (10:00)
[2022-05-19] MEDS: Pepcid 20 MG PO SCH (10:55)
[2022-05-19] MEDS: Ms Contin 15 MG PO SCH ×2 (10:55→21:03)
[2022-05-19] MEDS: SYNTHROID 25 MCG PO SCH (10:55)
[2022-05-19] MEDS: PROTONIX 40 MG IV IV SCH (10:55)
[2022-05-19] MEDS: Lasix 40 MG PO SCH (10:55)
[2022-05-19] MEDS: ELIQUIS 2.5 MG TABLET PO SCH ×2 (10:55→21:03)
[2022-05-19] MEDS: Toprol-Xl 25MG Tablets PO SCH (10:55)
[2022-05-19] MEDS: Cordarone 200 MG PO SCH (10:56)
--- NOTE | 2022-05-19 13:20 | PCM.HP ---
History of Present Illness - Chief Complaint Chief Complaint: chest pain, History of Present Illness: is a 66 year old female pt of Dr. Mccallum with Hx DM, HTn, afib ( on Eliquis), pacer/defib, CHF, CAD, hypothyroid (hx thyroid ca), DVT, asthma, GERD, and CRF who was admitted through ER with CVA. CT head non acute. Teleneurology advised MRI (if compatible pacer), echocardiogram. Nonacute as has had sx x 4d. Pt started having epig pain 5d ago in a.m.; does have hernia and sees specialist on 05/29/22 (paraesoph hernia?). She c/o 4d CP, intermittent, with weakness in LUE and LLE. Difficult speech since yesterday am - slurred slightly today and difficult to answer questions yesterday. Oriented to place today, says it is Friday, Apr. - Review of Systems Constitutional: Chills Cardiac: Chest Pain (eased up now, but was 6-7/10, L upper chest rad to jaw/neck&L lower back, w diaphor, N, palp, and SOB), Edema (+ LE bilat for 2 weeks) Neurological: Dizziness (vertigo, intermittent) All Other Systems: Reviewed and Negative Medications & Allergies Home Medications: Home Medication List Tizanidine HCl 4 mg PO TID PRN PRN 11/10/17 [History Confirmed 05/18/22] Furosemide [Lasix] 40 mg PO DAILY PRN PRN 03/09/18 [History Confirmed 05/18/22] Promethazine HCl 25 mg [Phenergan 25 mg] 25 mg PO Q6H PRN PRN 01/14/19 [History Confirmed 05/18/22] Levothyroxine Sodium [Synthroid] 25 mcg PO DAILY 04/29/19 [History Confirmed 05/18/22] Nitroglycerin 0.4 mg SL Q5MIN PRN MR X 3 PRN 04/29/19 [History Confirmed 04/20 06/09] Apixaban [Eliquis] 5 mg PO BID 1 Days 01/03/20 [Rx Confirmed 05/18/22] Amiodarone HCl 200 mg [Cordarone 200 MG] 100 mg PO DAILY 07/30/21 [History Confirmed 05/18/22] Morphine Sulfate [Morphine Sulfate ER] 30 mg PO BID 07/30/21 [History Confirmed 05/18/22] Famotidine 40 mg PO DAILY 03/12/22 [History Confirmed 05/18/22] Metoprolol Succinate 25 mg Xl* [Toprol-Xl 25MG Tablets] 25 mg PO DAILY #30 tab 04/04/22 [Rx Confirmed 05/18/22] Hydralazine HCl 10 mg PO Q4HPRN PRN 05/18/22 [History Confirmed 05/18/22] Allergies/Adverse Reactions: Allergies Allergy/AdvReac Type Severity Reaction Status Date / Time baclofen Allergy Severe Difficulty Verified 05/18/22 09:38 Breathing Sulfa (Sulfonamide Allergy Severe Nausea and Verified 05/18/22 09:38 Antibiotics) Vomiting [Sulfa(Sulfonamide Antibiotics)] adhesive Allergy Mild Blisters Verified 05/18/22 09:38 codeine [Codeine] Allergy Mild Nausea and Verified 05/18/22 09:38 Vomiting iron AdvReac Intermediate Nausea Verified 05/18/22 09:38 oxycodone [From Percocet] AdvReac Intermediate Vomiting Verified 05/18/22 09:38 - Past Medical History Past Medical History: Yes Neurological History: Migraines, Stroke ENT History: No Pertinent History Cardiac History: Angina, Arrhythmia, Congestive Heart Failure, Coronary Artery Disease, Deep Vein Thrombosis, Other Respiratory History: Asthma Endocrine Medical History: Hypothyroidism, Thyroid Cancer Musculoskelatal History: Other GI Medical History: GERD, Hernia, Other History: Renal Disease, Other Pyscho-Social History: No Pertinent History Reproductive Disorders: Endometriosis Comment: HX Cardiac Arrest, HX Thyroid Removal, HX Back pain. HX A-Fib. Pre diabetic - Female History Are you now?: No - Past Surgical History Past Surgical History: Yes Neuro Surgical History: No Pertinent History Cardiac History: Cardiac Catheterization, Internal Defibrillator, Pacemaker, Other Respiratory Surgery: No Pertinent History GI Surgical History: Appendectomy, Cholecystectomy, Colon Resection, Hernia Repair, Other Genitourinary Surgical Hx: No Pertinent History Musculskeletal Surgical Hx: Orthopedic Surgery Female Surgical History: Hysterectomy Other Surgical History: THYROID REMOVED and Parotid gland removed; 40% and 50% blockages found with last heart cath about 4 years ago. ankle surgery d/t break,ileostomy, CVL port removed and replaced, Port placed. HX ostomy repair due to blockage 09/02, back surgery and 4 I&D september and october and november 2017. 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 TLIF fused discs in back. OCTOBER 2018 CAROTIDECTOMY AND LYMPH NODE REMOVAL ON RIGHT SIDE. Right Parotid gland removed. "filter for blood clots 2018" - Social History Smoking Status: Never smoker Exposure to second hand smoke: No Alcohol: None Drug Use: none Significant Family History: heart disease, cancer, diabetes - Physical Exam Vital Signs: Vital Signs - 24 hr Temp Pulse Resp BP BP Pulse Ox 05/19/22 12:00 97.7 F 67 16 135/99 95 05/19/22 07:43 97.3 F 70 18 127/74 96 05/19/22 04:00 98.0 F 97 H 18 109/61 95 05/18/22 23:51 97.6 F 71 19 119/73 95 05/18/22 20:00 97.5 F 73 18 115/66 94 L 05/18/22 15:11 72 16 154/86 154/86 99 05/18/22 15:05 97.9 F 72 16 154/86 99 05/18/22 14:16 94 L 05/18/22 14:02 70 21 147/95 94 L General Appearance: mild distress (intermitt during exam d/t pain in L leg, burning), alert Neurologic Exam: cooperative, motor weakness (strength 3/5 on LLE, 5/5 RLE. 4/5 LUE, 5/5 RUE.), abnormal cerebellar tests (dysidadokokinesia on LUE (decr rapid finger mvmt on L, OK on R although a bit slow).), abnormal change coordinator II-XII (CN II sluggish on L. EOMI. CN VII fine. CN V2 decr on L. CN VIII absent on L (since 2016). CN XI weak on L.), other (basically oriented x 3, 1d off in her time orientation. sensation decr to light touch LLE throughout.) Eye Exam: eyes nml inspection Ears, Nose, Throat Exam: moist mucous membranes Neck Exam: normal inspection, non-tender, No lymphadenopathy, No subcutaneous emphysema, No thyromegaly Respiratory Exam: normal breath sounds, lungs clear, No crackles/rales, No rhonchi, No wheezing Cardiovascular Exam: regular rate/rhythm, normal heart sounds, No murmur Gastrointestinal/Abdomen Exam: soft, normal bowel sounds, other (colostomy present RLQ), No tenderness, No distention, No mass, No guarding, No rebound Back Exam: normal inspection, No rash Extremity Exam: swelling (trace pretibial edema bilat), other (chronic venous stasis changes le bilat) Wound Assessment: Skin/Wound Assessment Wound/Incision Assessment Start: 05/18/22 15:42 Text: Status: Active Freq: Q6H Protocol: Document 05/19/22 08:00 AR (Rec: 05/19/22 08:52 AR [id number]) Wound/Incision Assessment Bilateral Lower Legs Wound Assessment Shift Assessment Wound Type scattered scabs Drainage Amount None Wound Photo Photo Taken No Results - Labs Lab/Micro Results: Lab Results-Last 24 Hours 05/18/22 05/18/22 05/18/22 Range/Units 10:30 13:57 14:00 WBC (4.0-10.5) x10^3/uL RBC (4.1-5.4) x10^6/uL Hgb (12.0-16.0) g/dL Hct (35-47) % MCV (78-100) fL MCH (26-32) pg MCHC (32-36) g/dL RDW (11.5-14.0) % Plt Count (150-450) x10^3/uL MPV (7.5-11.0) fL Gran % (36.0-66.0) % Immature Gran % (Auto) (0.00-0.4) % Nucleat RBC Rel Count (0.00-0.1) % Eos # (Auto) (0-0.5) x10^3/uL Immature Gran # (Auto) (0.00-0.03) x10^3u/L Absolute Lymphs (auto) (1.0-4.6) x10^3/uL Absolute Monos (auto) (0.0-1.3) x10^3/uL Absolute Nucleated RBC (0.00-0.01) x10^3u/L Lymphocytes % (24.0-44.0) % Monocytes % (0.0-12.0) % Eosinophils % (0.00-5.0) % Basophils % (0.0-0.4) % Absolute Granulocytes (1.4-6.9) x10^3/uL Basophils # (0-0.4) x10^3/uL Sodium (137-145) mmol/L Potassium (3.5-5.1) mmol/L Chloride (98-107) mmol/L Carbon Dioxide (22-30) mmol/L Anion Gap (5-15) MEQ/L BUN (7-17) mg/dL Creatinine (0.52-1.04) mg/dL Estimated GFR ML/MIN Glucose (74-106) mg/dL Calcium (8.4-10.2) mg/dL Total Bilirubin (0.2-1.3) mg/dL AST (14-36) U/L ALT (0-35) U/L Alkaline Phosphatase (38-126) U/L Troponin I < 0.012 (0.000-0.034) ng/mL NT-Pro-B Natriuret Pep (0-900) pg/mL Serum Total Protein (6.3-8.2) g/dL Albumin (3.5-5.0) g/dL Prealbumin 22.04 (17.6-36.0) mg/dL Triglycerides (30-150) mg/dL Cholesterol (50-200) mg/dL LDL Cholesterol (30-100) mg/dL HDL Cholesterol (40-60) mg/dL Heart Disease Risk Ratio Urinalys Dipstick Clnc Urine Color (YELLOW) Urine Appearance (CLEAR) Urine pH (5-6) Ur Specific [place] (1.005-1.025) POC Urine Protein Conf (Negative) Urine Ketones (NEGATIVE) Urine Nitrite (NEGATIVE) Urine Bilirubin (NEGATIVE) Urine Urobilinogen (0-1) mg/dL Urine Leukocytes (NEGATIVE) Urine WBC (Auto) (0-5) /HPF Urine RBC (Auto) (0-2) /HPF U Hyaline Cast (Auto) (0-2) /LPF U Epithel Cells (Auto) (FEW) /HPF Urine Bacteria (Auto) (NEGATIVE) /HPF Urine RBC (0-5) Hemal/ul Urine Mucus (Auto) (NEGATIVE) /HPF Ur Culture Indicated? Urine Glucose (NEGATIVE) mg/dL Urine Opiates Level (NEGATIVE) Ur Methadone (NEGATIVE) Urine Barbiturates (NEGATIVE) Ur Phencyclidine (PCP) (NEGATIVE) Urine Amphetamine (NEGATIVE) U Benzodiazepine Level (NEGATIVE) Urine Cocaine (NEGATIVE) Urine Marijuana (THC) (NEGATIVE) Influenza Type A Ag NEGATIVE (NEGATIVE) Influenza Type B Ag NEGATIVE (NEGATIVE) RSV (PCR) NEGATIVE (Negative) SARS-CoV-2 (PCR) NEGATIVE (NEGATIVE) 05/18/22 05/18/22 05/18/22 Range/Units 14:01 14:01 18:06 WBC (4.0-10.5) x10^3/uL RBC (4.1-5.4) x10^6/uL Hgb (12.0-16.0) g/dL Hct (35-47) % MCV (78-100) fL MCH (26-32) pg MCHC (32-36) g/dL RDW (11.5-14.0) % Plt Count (150-450) x10^3/uL MPV (7.5-11.0) fL Gran % (36.0-66.0) % Immature Gran % (Auto) (0.00-0.4) % Nucleat RBC Rel Count (0.00-0.1) % Eos # (Auto) (0-0.5) x10^3/uL Immature Gran # (Auto) (0.00-0.03) x10^3u/L Absolute Lymphs (auto) (1.0-4.6) x10^3/uL Absolute Monos (auto) (0.0-1.3) x10^3/uL Absolute Nucleated RBC (0.00-0.01) x10^3u/L Lymphocytes % (24.0-44.0) % Monocytes % (0.0-12.0) % Eosinophils % (0.00-5.0) % Basophils % (0.0-0.4) % Absolute Granulocytes (1.4-6.9) x10^3/uL Basophils # (0-0.4) x10^3/uL Sodium (137-145) mmol/L Potassium (3.5-5.1) mmol/L Chloride (98-107) mmol/L Carbon Dioxide (22-30) mmol/L Anion Gap (5-15) MEQ/L BUN (7-17) mg/dL Creatinine (0.52-1.04) mg/dL Estimated GFR ML/MIN Glucose (74-106) mg/dL Calcium (8.4-10.2) mg/dL Total Bilirubin (0.2-1.3) mg/dL AST (14-36) U/L ALT (0-35) U/L Alkaline Phosphatase (38-126) U/L Troponin I < 0.012 (0.000-0.034) ng/mL NT-Pro-B Natriuret Pep (0-900) pg/mL Serum Total Protein (6.3-8.2) g/dL Albumin (3.5-5.0) g/dL Prealbumin (17.6-36.0) mg/dL Triglycerides (30-150) mg/dL Cholesterol (50-200) mg/dL LDL Cholesterol (30-100) mg/dL HDL Cholesterol (40-60) mg/dL Heart Disease Risk Ratio Urinalys Dipstick Clnc MAIN LAB Urine Color YELLOW (YELLOW) Urine Appearance CLEAR (CLEAR) Urine pH 5.5 (5-6) Ur Specific [place] >=1.030 A (1.005-1.025) POC Urine Protein Conf 30 A (Negative) Urine Ketones NEGATIVE (NEGATIVE) Urine Nitrite NEGATIVE (NEGATIVE) Urine Bilirubin NEGATIVE (NEGATIVE) Urine Urobilinogen 0.2 (0-1) mg/dL Urine Leukocytes NEGATIVE (NEGATIVE) Urine WBC (Auto) 16-25 A (0-5) /HPF Urine RBC (Auto) 3-5 A (0-2) /HPF U Hyaline Cast (Auto) 0-2 (0-2) /LPF U Epithel Cells (Auto) RARE (FEW) /HPF Urine Bacteria (Auto) RARE (NEGATIVE) /HPF Urine RBC NEGATIVE (0-5) Hemal/ul Urine Mucus (Auto) SLIGHT A (NEGATIVE) /HPF Ur Culture Indicated? YES Urine Glucose NEGATIVE (NEGATIVE) mg/dL Urine Opiates Level POSITIVE (NEGATIVE) Ur Methadone NEGATIVE (NEGATIVE) Urine Barbiturates NEGATIVE (NEGATIVE) Ur Phencyclidine (PCP) NEGATIVE (NEGATIVE) Urine Amphetamine NEGATIVE (NEGATIVE) U Benzodiazepine Level NEGATIVE (NEGATIVE) Urine Cocaine NEGATIVE (NEGATIVE) Urine Marijuana (THC) NEGATIVE (NEGATIVE) Influenza Type A Ag (NEGATIVE) Influenza Type B Ag (NEGATIVE) RSV (PCR) (Negative) SARS-CoV-2 (PCR) (NEGATIVE) 01/01/23 01/01/23 01/01/23 Range/Units 05:22 05:22 05:22 WBC 5.2 (4.0-10.5) x10^3/uL RBC 3.75 L (4.1-5.4) x10^6/uL Hgb 10.5 L (12.0-16.0) g/dL Hct 35.3 (35-47) % MCV 94.1 (78-100) fL MCH 28.0 (26-32) pg MCHC 29.7 L (32-36) g/dL RDW 15.9 H (11.5-14.0) % Plt Count 219 (150-450) x10^3/uL MPV 9.4 (7.5-11.0) fL Gran % 58.2 (36.0-66.0) % Immature Gran % (Auto) 0.2 (0.00-0.4) % Nucleat RBC Rel Count 0.0 (0.00-0.1) % Eos # (Auto) 0.10 (0-0.5) x10^3/uL Immature Gran # (Auto) 0.01 (0.00-0.03) x10^3u/L Absolute Lymphs (auto) 1.62 (1.0-4.6) x10^3/uL Absolute Monos (auto) 0.39 (0.0-1.3) x10^3/uL Absolute Nucleated RBC 0.00 (0.00-0.01) x10^3u/L Lymphocytes % 31.2 (24.0-44.0) % Monocytes % 7.5 (0.0-12.0) % Eosinophils % 1.9 (0.00-5.0) % Basophils % 1.0 (0.0-0.4) % Absolute Granulocytes 3.03 (1.4-6.9) x10^3/uL Basophils # 0.05 (0-0.4) x10^3/uL Sodium 140 (137-145) mmol/L Potassium 4.2 (3.5-5.1) mmol/L Chloride 107 (98-107) mmol/L Carbon Dioxide 27 (22-30) mmol/L Anion Gap 9.3 (5-15) MEQ/L BUN 14 (7-17) mg/dL Creatinine 1.33 H (0.52-1.04) mg/dL Estimated GFR 42.6 ML/MIN Glucose 105 (74-106) mg/dL Calcium 8.7 (8.4-10.2) mg/dL Total Bilirubin 0.70 (0.2-1.3) mg/dL AST 25 (14-36) U/L ALT 10 (0-35) U/L Alkaline Phosphatase 89 (38-126) U/L Troponin I (0.000-0.034) ng/mL NT-Pro-B Natriuret Pep (0-900) pg/mL Serum Total Protein 7.2 (6.3-8.2) g/dL Albumin 3.8 (3.5-5.0) g/dL Prealbumin (17.6-36.0) mg/dL Triglycerides 175 H (30-150) mg/dL Cholesterol 142 (50-200) mg/dL LDL Cholesterol 53 (30-100) mg/dL HDL Cholesterol 45 (40-60) mg/dL Heart Disease Risk Ratio 3.1 Urinalys Dipstick Clnc Urine Color (YELLOW) Urine Appearance (CLEAR) Urine pH (5-6) Ur Specific [place] (1.005-1.025) POC Urine Protein Conf (Negative) Urine Ketones (NEGATIVE) Urine Nitrite (NEGATIVE) Urine Bilirubin (NEGATIVE) Urine Urobilinogen (0-1) mg/dL Urine Leukocytes (NEGATIVE) Urine WBC (Auto) (0-5) /HPF Urine RBC (Auto) (0-2) /HPF U Hyaline Cast (Auto) (0-2) /LPF U Epithel Cells (Auto) (FEW) /HPF Urine Bacteria (Auto) (NEGATIVE) /HPF Urine RBC (0-5) Hemal/ul Urine Mucus (Auto) (NEGATIVE) /HPF Ur Culture Indicated? Urine Glucose (NEGATIVE) mg/dL Urine Opiates Level (NEGATIVE) Ur Methadone (NEGATIVE) Urine Barbiturates (NEGATIVE) Ur Phencyclidine (PCP) (NEGATIVE) Urine Amphetamine (NEGATIVE) U Benzodiazepine Level (NEGATIVE) Urine Cocaine (NEGATIVE) Urine Marijuana (THC) (NEGATIVE) Influenza Type A Ag (NEGATIVE) Influenza Type B Ag (NEGATIVE) RSV (PCR) (Negative) SARS-CoV-2 (PCR) (NEGATIVE) 05/19/22 Range/Units 05:22 WBC (4.0-10.5) x10^3/uL RBC (4.1-5.4) x10^6/uL Hgb (12.0-16.0) g/dL Hct (35-47) % MCV (78-100) fL MCH (26-32) pg MCHC (32-36) g/dL RDW (11.5-14.0) % Plt Count (150-450) x10^3/uL MPV (7.5-11.0) fL Gran % (36.0-66.0) % Immature Gran % (Auto) (0.00-0.4) % Nucleat RBC Rel Count (0.00-0.1) % Eos # (Auto) (0-0.5) x10^3/uL Immature Gran # (Auto) (0.00-0.03) x10^3u/L Absolute Lymphs (auto) (1.0-4.6) x10^3/uL Absolute Monos (auto) (0.0-1.3) x10^3/uL Absolute Nucleated RBC (0.00-0.01) x10^3u/L Lymphocytes % (24.0-44.0) % Monocytes % (0.0-12.0) % Eosinophils % (0.00-5.0) % Basophils % (0.0-0.4) % Absolute Granulocytes (1.4-6.9) x10^3/uL Basophils # (0-0.4) x10^3/uL Sodium (137-145) mmol/L Potassium (3.5-5.1) mmol/L Chloride (98-107) mmol/L Carbon Dioxide (22-30) mmol/L Anion Gap (5-15) MEQ/L BUN (7-17) mg/dL Creatinine (0.52-1.04) mg/dL Estimated GFR ML/MIN Glucose (74-106) mg/dL Calcium (8.4-10.2) mg/dL Total Bilirubin (0.2-1.3) mg/dL AST (14-36) U/L ALT (0-35) U/L Alkaline Phosphatase (38-126) U/L Troponin I (0.000-0.034) ng/mL NT-Pro-B Natriuret Pep 2210 H (0-900) pg/mL Serum Total Protein (6.3-8.2) g/dL Albumin (3.5-5.0) g/dL Prealbumin (17.6-36.0) mg/dL Triglycerides (30-150) mg/dL Cholesterol (50-200) mg/dL LDL Cholesterol (30-100) mg/dL HDL Cholesterol (40-60) mg/dL Heart Disease Risk Ratio Urinalys Dipstick Clnc Urine Color (YELLOW) Urine Appearance (CLEAR) Urine pH (5-6) Ur Specific [place] (1.005-1.025) POC Urine Protein Conf (Negative) Urine Ketones (NEGATIVE) Urine Nitrite (NEGATIVE) Urine Bilirubin (NEGATIVE) Urine Urobilinogen (0-1) mg/dL Urine Leukocytes (NEGATIVE) Urine WBC (Auto) (0-5) /HPF Urine RBC (Auto) (0-2) /HPF U Hyaline Cast (Auto) (0-2) /LPF U Epithel Cells (Auto) (FEW) /HPF Urine Bacteria (Auto) (NEGATIVE) /HPF Urine RBC (0-5) Hemal/ul Urine Mucus (Auto) (NEGATIVE) /HPF Ur Culture Indicated? Urine Glucose (NEGATIVE) mg/dL Urine Opiates Level (NEGATIVE) Ur Methadone (NEGATIVE) Urine Barbiturates (NEGATIVE) Ur Phencyclidine (PCP) (NEGATIVE) Urine Amphetamine (NEGATIVE) U Benzodiazepine Level (NEGATIVE) Urine Cocaine (NEGATIVE) Urine Marijuana (THC) (NEGATIVE) Influenza Type A Ag (NEGATIVE) Influenza Type B Ag (NEGATIVE) RSV (PCR) (Negative) SARS-CoV-2 (PCR) (NEGATIVE) Microbiology 05/18/22 14:01 Urine Culture - Preliminary Clean Catch Midstream NO GROWTH TO DATE - Radiology Impressions Radiology Exams & Impressions: Radiology Procedures Category Date Time Status CHEST 1 VIEW (PORTABLE) Stat Exams 05/18/22 10:51 Completed HEAD WITHOUT CONTRAST [CT] Stat Exams 05/18/22 10:28 Completed Assessment/Plan (1) Stroke Current Visit: Yes Status: Acute Qualifiers: CVA mechanism: embolism Precerebral and cerebral artery: middle cerebral artery Laterality of affected vessel: right Qualified Code(s): I63.411 - Cerebral infarction due to embolism of right middle cerebral artery Assessment & Plan: Most likely. She says her pacemaker/defib is not MRI compatible so will order CTA head/neck. Code(s): I63.9 - CEREBRAL INFARCTION, UNSPECIFIED (2) Left leg weakness Current Visit: No Status: Acute Assessment & Plan: with burning pain - will add gabapentin. Code(s): R29.898 - OT SYMPTOMS AND SIGNS INVOLVING THE MUSCULOSKELETAL SYSTEM (3) Renal insufficiency Current Visit: No Status: Chronic (4) Atrial fibrillation Current Visit: No Status: Chronic Qualifiers: Atrial fibrillation type: paroxysmal Code(s): I48.91 - UNSPECIFIED ATRIAL FIBRILLATION (5) HTN (hypertension) Current Visit: Yes Status: Acute Qualifiers: Hypertension type: primary hypertension Qualified Code(s): I10 - Essential (primary) hypertension Code(s): I10 - ESSENTIAL (PRIMARY) HYPERTENSION (6) Pacemaker Current Visit: Yes Status: Chronic Code(s): Z95.0 - PRESENCE OF CARDIAC PACEMAKER
[2022-05-19] MEDS: Neurontin PO SCH ×2 (14:26→21:03)
[2022-05-19] MEDS: ZOCOR 20MG PO SCH (21:04)
[2022-05-20] MEDS: MORPHINE SULFATE 2 MG INJ IV PRN ×2 (01:00→06:58)
[2022-05-20] MEDS: PHENERGAN 25 MG PO PRN ×2 (01:06→20:33)
[2022-05-20] MEDS: Ms Contin 15 MG PO SCH ×2 (08:43→21:40)
[2022-05-20] MEDS: SYNTHROID 25 MCG PO SCH (08:44)
[2022-05-20] MEDS: ELIQUIS 2.5 MG TABLET PO SCH ×2 (08:44→21:40)
[2022-05-20] MEDS: Toprol-Xl 25MG Tablets PO SCH (08:44)
[2022-05-20] MEDS: Neurontin PO SCH ×3 (08:44→21:41)
[2022-05-20] MEDS: Cordarone 200 MG PO SCH (08:44)
[2022-05-20] MEDS: PROTONIX 40 MG IV IV SCH (08:45)
[2022-05-20] MEDS: Pepcid 20 MG PO SCH (08:45)
[2022-05-20] MEDS: Lasix 40 MG PO SCH (08:45)
--- NOTE | 2022-05-20 10:34 | XRAY ---
Indication: Pain. History DVT. Two-dimensional sonogram and color Doppler imaging of the major venous vessels of the left leg performed. Comparison: November 26, 2019 No thrombus seen in the examined deep venous vessels of the left leg including greater saphenous vein. Veins demonstrate normal compressibility. Venous waveforms are normal with and without augmentation. Impression: Left leg remains negative for DVT.
[2022-05-20] MEDS ORDERED: Sodium Chloride 0.9% 500 ML 500 ML IV ONE ×2 (11:49→15:00)
[2022-05-20 12:26] LABS: Hematocrit 38.1 % (35-47); Hemoglobin 11.9 g/dL (12.0-16.0); Mean Cell Volume 92.3 fL (78-100); Mean Corpuscular Hemoglobin 28.8 pg (26-32); Mean Corpuscular Hgb Concent. 31.2 g/dL (32-36); Mean Platelet Volume 9.2 fL (7.5-11.0); Platelet Count 270 x10^3/uL (150-450); Red Blood Count 4.13 x10^6/uL (4.1-5.4); Red Cell Distribution Width 15.6 % (11.5-14.0); White Blood Count 7.2 x10^3/uL (4.0-10.5)
--- NOTE | 2022-05-20 13:16 | XRAY ---
Indication: Cold leg. Pain. Two-dimensional sonogram and color Doppler imaging of the major arteries of the left leg performed. Comparison: None Visualized common femoral, deep femoral, superficial femoral, popliteal, posterior tibial, dorsal pedal arteries are widely patent. Arterial waveforms are multiphasic throughout. Left arm brachial pressure is 96. Left ankle pressure is 105. Ankle brachial index is 1.09, normal. Impression: Left leg arterial sonogram negative for critical stenosis/obstruction. SILVINA is normal.
--- NOTE | 2022-05-20 13:25 | PCM.NOTE ---
Date and Time: 05/20/22 1320 Subjective Assessment: She is still c/o LLE pain, may be a little better with muscle relaxer. Tried to get up to bathroom with help, but pain and shakiness precluded walking any farther than bedside commode. Does say she has pain in L lower back radiating around to L thigh and down L leg, 7-8/10. Has R groin pain but thinks it is related to her hernia. Had ordered CTA head/neck but radiology hasn't done them yet, needed to discuss her decreased eGFR. - Review of Systems Constitutional: Weakness, No Fever Musculoskeletal: Arthralgias, Back Pain Objective Exam General Appearance: no apparent distress, alert Neurologic Exam: oriented x 3, cooperative Skin Exam: normal color, warm, dry, No rash Wound Assessment: Skin/Wound Assessment Wound/Incision Assessment Start: 05/18/22 15:42 Text: Status: Active Freq: Q6H Protocol: Document 05/20/22 08:00 (Rec: 05/20/22 09:18 [id number]) Wound/Incision Assessment Bilateral Lower Legs Wound Assessment Shift Assessment Wound Type scattered scabs Drainage Amount None Comment no drainage, scabbed over areas scattered throughout Eye Exam: eyes nml inspection Ears, Nose, Throat Exam: moist mucous membranes Neck Exam: normal inspection Respiratory Exam: normal breath sounds, lungs clear, No accessory muscle use, No crackles/rales, No rhonchi, No wheezing Cardiovascular Exam: regular rate/rhythm, normal heart sounds, No murmur Extremity Exam: other (L leg cool to touch, while R is warm. Able to move L arm grossly without issues. Can move the LLE somewhat, but still struggles to move against gravity secondary to pain.) Back Exam: other (SI joint TTP on L) OBJECTIVE DATA Vital Signs: Vital Signs - 24 hr Temp Pulse Resp BP Pulse Ox 05/20/22 12:00 97.7 F 74 19 86/51 96 05/20/22 07:20 97.3 F 69 18 121/76 97 05/20/22 04:00 97.9 F 72 17 105/70 92 L 05/20/22 00:00 98.5 F 73 18 128/77 94 L 05/19/22 20:43 99.1 F 72 18 115/69 95 05/19/22 16:00 98.7 F 75 16 110/63 97 Pain Assessment - Last Documented Pain Intensity 5 Pain Scale Used FLACC Intake and Output: Intake & Output 05/18/22 05/19/22 05/20/22 05/21/22 11:59 11:59 11:59 11:59 Intake Total 1200 980 Output Total 900 2300 Balance 300 -1320 Weight 95.6 kg 94.5 kg 94.9 kg Lab Results: Lab Results-Last 24 Hours 05/20/22 Range/Units 12:25 WBC 7.2 (4.0-10.5) x10^3/uL RBC 4.13 (4.1-5.4) x10^6/uL Hgb 11.9 L (12.0-16.0) g/dL Hct 38.1 (35-47) % MCV 92.3 (78-100) fL MCH 28.8 (26-32) pg MCHC 31.2 L (32-36) g/dL RDW 15.6 H (11.5-14.0) % Plt Count 270 (150-450) x10^3/uL MPV 9.2 (7.5-11.0) fL Radiology Exams: Radiology Procedures Category Date Time Status ARTERIAL UNILAT/LTD LOWER EXT [US] Routine Exams 05/20/22 11:55 Completed CTA HEAD W AND/OR WO CONTRAST [CT] Routine Exams 05/20/22 08:57 Ordered CTA HEAD W AND/OR WO CONTRAST [CT] Routine Exams 05/20/22 11:53 Ordered LUMBAR SPINE W/O [CT] Routine Exams 05/20/22 11:55 Ordered VENOUS UNILAT/LIMITED EXTREMIT [US] Urgent Exams 05/20/22 10:26 Completed Assessment/Plan (1) Stroke Current Visit: Yes Status: Acute Qualifiers: CVA mechanism: embolism Precerebral and cerebral artery: middle cerebral artery Laterality of affected vessel: right Qualified Code(s): I63.411 - Cerebral infarction due to embolism of right middle cerebral artery Assessment & Plan: possible. Can't MRI as her pacemaker/defib is not compatible. Will do CTA head/neck after IV fluids (recheck eGFR) - discussed with radiologist, Dr. Rome. After CTA will again give fluids, and will continue fluids all night. I discus sed with pt risk of IV contrast re: acute renal failure superimposed on her pre- existing renal disease and she wants to proceed. Code(s): I63.9 - CEREBRAL INFARCTION, UNSPECIFIED (2) Left leg pain Current Visit: Yes Status: Acute Assessment & Plan: Venous doppler done this morning. Arterial doppler ordered as well in light of leg also being cool today (pt has not noticed this). Code(s): M79.605 - PAIN IN LEFT LEG (3) Left leg weakness Current Visit: No Status: Acute Assessment & Plan: may be secondary to pain and/or lumbar radiculopathy. CT L-S spine. She has a hx back surgery (L5-S1 fusion). Code(s): R29.898 - OTH SYMPTOMS AND SIGNS INVOLVING THE MUSCULOSKELETAL SYSTEM (4) Renal insufficiency Current Visit: No Status: Chronic (5) Atrial fibrillation Current Visit: No Status: Chronic Qualifiers: Atrial fibrillation type: paroxysmal Code(s): I48.91 - UNSPECIFIED ATRIAL FIBRILLATION (6) HTN (hypertension) Current Visit: Yes Status: Chronic Qualifiers: Hypertension type: primary hypertension Qualified Code(s): I10 - Essential (primary) hypertension Code(s): I10 - ESSENTIAL (PRIMARY) HYPERTENSION (7) Pacemaker Current Visit: Yes Status: Chronic Code(s): Z95.0 - PRESENCE OF CARDIAC PACEMAKER
[2022-05-20 14:19] LABS: ANION GAP 12.9 MEQ/L (5-15); Calcium 8.4 mg/dL (8.4-10.2); Creatinine 1 1.55 mg/dL (0.52-1.04); EST GLOMERULAR FILTRATION RATE 35.7 ML/MIN; Potassium 3.5 mmol/L (3.5-5.1)
[2022-05-20] MEDS: Sodium Chloride 0.9% 1000 ML 1,000 ML IV SCH (15:57)
[2022-05-20] MEDS: SUBLIMAZE 100 MCG/2 ML IV PRN ×2 (15:59→20:33)
--- NOTE | 2022-05-20 16:43 | XRAY ---
Indication: CVA. Two-dimensional sonogram and color Doppler imaging of the carotid arteries of the neck performed. Comparison: November 02, 2019 Examination of the right carotid circulation again demonstrates widely patent common carotid, carotid bulb, internal carotid, and external carotid arteries. Distal internal carotid artery again tortuous. PSV of the CCA is 52 cm/s. PSV of the ICA is 73 cm/s. ICA/CCA ratio is 1.4. Normal antegrade vertebral artery flow. Examination of the left carotid circulation again demonstrates widely patent common carotid, carotid bulb, internal carotid, and external carotid arteries. PSV of the CCA is 65 cm/s. PSV of the ICA is 59 cm/s. ICA/CCA ratio is 0.9. Normal antegrade vertebral artery flow. Impression: Left and right carotid arteries of the neck remain widely patent. Velocity measurements and ratios also remain negative for hemodynamically significant flow limiting stenosis.
--- NOTE | 2022-05-20 17:08 | XRAY ---
Indication: Low back pain. Left leg weakness. Multiple contiguous axial images obtained through the lumbar spine. Sagittal and coronal reformatted images obtained. Comparison: February 26, 2020. More recent CT abdomen/pelvis August 15, 2021. Osseous structures remain demineralized. Stable L3/L4 kyphoplasty. Again right L5-S1 posterior fusion hardware/intervertebral spacer produces beam artifact. The L5-S1 intervertebral spacer again encroaches on the right epidural space and right foramina unchanged in appearance. Stable left L4 pedicle sclerotic lesion favored to be benign given stability over the years. Grossly stable minimal L4-S1 broad-based disc bulge. No large disc herniation or canal stenosis. Facets are symmetric again with mild bilateral L5-S1 degenerative facet arthropathy. Visualized SI joints are unremarkable. Sagittal and coronal reformatted images again demonstrates normal lumbar alignment with vertebral body heights/disc spaces maintained. No acute compression fracture or subluxation. Visualized noncontrasted soft tissues again demonstrates small left renal [id number] cortical calcifications, cholecystectomy clips, IVC filter, and incompletely visualized bilateral caval biiliac stent grafts. Impression: 1. Stable right L5-S1 fusion with beam artifact from hardware. Grossly stable intervertebral spacer encroaching on right epidural space and right foramina. 2. Chronic features including osteopenia, L3/L4 kyphoplasty, minimal L4-S1 degenerative disc disease, benign appearing left L4 sclerotic lesion, IVC filter, multiple venous stent graft, and left renal cortical calcifications. 3. Remaining CT lumbar spine without contrast exam is negative.
[2022-05-20] MEDS: DICLOFENAC SODIUM TP SCH ×2 (17:53→21:41)
[2022-05-20] MEDS: ZOCOR 20MG PO SCH (21:40)
[2022-05-21] MEDS: Sodium Chloride 0.9% 1000 ML 1,000 ML IV SCH (02:00)
[2022-05-21] MEDS: SUBLIMAZE 100 MCG/2 ML IV PRN ×3 (03:32→13:36)
[2022-05-21 05:10] LABS: Hematocrit 35.1 % (35-47); Mean Cell Volume 91.9 fL (78-100); Mean Corpuscular Hemoglobin 28.8 pg (26-32); Mean Corpuscular Hgb Concent. 31.3 g/dL (32-36); Mean Platelet Volume 9.5 fL (7.5-11.0); Platelet Count 249 x10^3/uL (150-450); Red Blood Count 3.82 x10^6/uL (4.1-5.4); Red Cell Distribution Width 15.8 % (11.5-14.0); White Blood Count 6.1 x10^3/uL (4.0-10.5)
[2022-05-21 05:32] LABS: ANION GAP 4.9 MEQ/L (5-15); Calcium 7.9 mg/dL (8.4-10.2); Creatinine 1 1.48 mg/dL (0.52-1.04); EST GLOMERULAR FILTRATION RATE 37.6 ML/MIN; Potassium 3.5 mmol/L (3.5-5.1)
[2022-05-21] MEDS: Lasix 40 MG PO SCH (08:42)
[2022-05-21] MEDS: Cordarone 200 MG PO SCH (08:42)
[2022-05-21] MEDS: Ms Contin 15 MG PO SCH (08:43)
[2022-05-21] MEDS: PHENERGAN 25 MG PO PRN (08:43)
[2022-05-21] MEDS: Pepcid 20 MG PO SCH (08:43)
[2022-05-21] MEDS: ELIQUIS 2.5 MG TABLET PO SCH (08:43)
[2022-05-21] MEDS: Neurontin PO SCH (08:43)
[2022-05-21] MEDS: Toprol-Xl 25MG Tablets PO SCH (08:43)
[2022-05-21] MEDS: DICLOFENAC SODIUM TP SCH ×2 (08:44→13:36)
[2022-05-21] MEDS: PROTONIX 40 MG IV IV SCH (08:44)
[2022-05-21] MEDS: SYNTHROID 25 MCG PO SCH (08:45)
--- NOTE | 2022-05-21 09:47 | PCM.DS ---
Discharge Summary Date of Admission: 05/19/22 13:15 Admitting Physician: FABIO PRIDE Primary Care Provider: WAQAR MCCALLUM Allergies Allergies baclofen Allergy (Severe, Verified 05/18/22 09:38) Difficulty Breathing pt states stopped breathing Sulfa (Sulfonamide Antibiotics) [Sulfa(Sulfonamide Antibiotics)] Allergy (Severe, Verified 05/18/22 09:38) Nausea and Vomiting adhesive Allergy (Mild, Verified 05/18/22 09:38) Blisters codeine [Codeine] Allergy (Mild, Verified 05/18/22 09:38) Nausea and Vomiting iron Adverse Reaction (Intermediate, Verified 05/18/22 09:38) Nausea oxycodone [From Percocet] Adverse Reaction (Intermediate, Verified 05/18/22 09:38) Vomiting Hospital Summary - Hospital Course Hospital Course: is a 66 year old female pt of Dr. Mccallum with Hx DM, HTn, afib ( on Eliquis), pacer/defib, CHF, CAD, hypothyroid (hx thyroid ca), DVT, asthma, GERD, and CRF who was admitted through ER with CVA. CT head non acute. Teleneurology advised MRI if her pacemaker was compatible, which she states it is not. Next suggestion was CTA head and neck, but pt's eGFR has decreased steadily since admission so that has not been done either. However, carotid dopplers showed widely patent arteries. She restarted IV fluids yesterday and is currently getting a bolus of 500cc NS and will continue IV fluids after that. Can recheck BMP outpatient if she discharges to home. Her urine culture grew mixed corby. Her symptoms, while initially appearing consistent with CVA, are possibly more consistent with chronic low back pain (s/po remote L5-S1 fusion) and radiculopathy of the LLE. Her CT lumbar spine was unchanged from July 2021, w ith S5pS1 spacer encroaching on R epidural space. Initially she was weak in UE and LE (more so in the leg), but the weakness of the arm has largely resolved and the L leg is having trouble moving due to pain. Her venous and arterial dopplers of LLE were non acute. She has more movement in the LLE today, is 3+/5 (moving it up off the bed in its entirety). She has started gabapentin with some improvement. Will be working with PT and if she can move well would discharge her to home today. - Vitals & Intake/Output Vital Signs: Vital Signs Temperature 97.8 F 05/21/22 07:33 Pulse Rate 70 05/21/22 07:33 Respiratory Rate 18 05/21/22 07:33 Blood Pressure 118/61 05/21/22 07:33 O2 Sat by Pulse Oximetry 99 05/21/22 07:33 Intake & Output: Intake & Output 05/18/22 05/19/22 05/20/22 05/21/22 11:59 11:59 11:59 11:59 Intake Total 0449 532 8597 Output Total 900 2300 1650 Balance 300 -1320 945 Weight 95.6 kg 94.5 kg 94.9 kg 94.6 kg - Lab Result Diagrams: 05/21/22 04:56 05/21/22 04:56 Lab Results-Last 24 Hrs: Lab Results-Last 24 Hours 05/20/22 05/20/22 05/21/22 Range/Units 12:25 14:04 04:56 WBC 7.2 6.1 (4.0-10.5) x10^3/uL RBC 4.13 3.82 L (4.1-5.4) x10^6/uL Hgb 11.9 L 11.0 L (12.0-16.0) g/dL Hct 38.1 35.1 (35-47) % MCV 92.3 91.9 (78-100) fL MCH 28.8 28.8 (26-32) pg MCHC 31.2 L 31.3 L (32-36) g/dL RDW 15.6 H 15.8 H (11.5-14.0) % Plt Count 270 249 (150-450) x10^3/uL MPV 9.2 9.5 (7.5-11.0) fL Sodium 141 (137-145) mmol/L Potassium 3.5 (3.5-5.1) mmol/L Chloride 102 (98-107) mmol/L Carbon Dioxide 29 (22-30) mmol/L Anion Gap 12.9 (5-15) MEQ/L BUN 16 (7-17) mg/dL Creatinine 1.55 H (0.52-1.04) mg/dL Estimated GFR 35.7 ML/MIN Glucose 97 (74-106) mg/dL Calcium 8.4 (8.4-10.2) mg/dL 05/21/22 Range/Units 04:56 WBC (4.0-10.5) x10^3/uL RBC (4.1-5.4) x10^6/uL Hgb (12.0-16.0) g/dL Hct (35-47) % MCV (78-100) fL MCH (26-32) pg MCHC (32-36) g/dL RDW (11.5-14.0) % Plt Count (150-450) x10^3/uL MPV (7.5-11.0) fL Sodium 138 (137-145) mmol/L Potassium 3.5 (3.5-5.1) mmol/L Chloride 106 (98-107) mmol/L Carbon Dioxide 31 H (22-30) mmol/L Anion Gap 4.9 L (5-15) MEQ/L BUN 18 H (7-17) mg/dL Creatinine 1.48 H (0.52-1.04) mg/dL Estimated GFR 37.6 ML/MIN Glucose 101 (74-106) mg/dL Calcium 7.9 L (8.4-10.2) mg/dL Micro Results-Entire Visit: Microbiology 05/18/22 14:01 Urine Culture - Final Clean Catch Midstream MIXED CORBY; 3 OR MORE TYPES. NO PREDOMINANT ORGANISM. NO FURTHER WORKUP. PLEASE RESUBMIT IF CLINICALLY INDICATED. 05/18/22 13:57 Blood Culture - Preliminary Blood NO GROWTH TO DATE 05/18/22 09:30 Blood Culture - Preliminary Blood NO GROWTH TO DATE - Radiology Exams Ordered Rad Exams-Entire Visit: Radiology Procedures Category Date Time Status ARTERIAL UNILAT/LTD LOWER EXT [US] Routine Exams 05/20/22 11:55 Completed CAROTID BILATERAL [US] Urgent Exams 05/20/22 16:[address] ANGIOGRAPHY NECK [CT] Routine Exams 05/21/22 08:57 Ordered CTA HEAD W AND/OR WO CONTRAST [CT] Routine Exams 05/21/22 11:53 Ordered LUMBAR SPINE W/O [CT] Routine Exams 05/20/22 16:48 Completed VENOUS UNILAT/LIMITED EXTREMIT [US] Urgent Exams 05/20/22 10:26 Completed - Procedures and Test Procedures and Tests throughout Hospitalization: Therapy Orders & Screens 05/20/22 12:01 PT Eval & Treat (MD Order) ONCE Reason for Eval:: LLE and LUE weakness, LLE pain Diagnosis: chest pain, ST Eval & Treat (MD Order) ONCE Comment: Physician Instructions: Reason For Exam: Evaluate: Yes: likely CVA Treat: Yes Reason for Eval: ensure swallowing is fine, has not issues I'm aware of over weekend Diagnosis: chest pain, Discharge Exam General Appearance: no apparent distress, alert Neurologic Exam: oriented x 3, cooperative Eye Exam: eyes nml inspection Ears, Nose, Throat Exam: moist mucous membranes Neck Exam: normal inspection Respiratory Exam: normal breath sounds, lungs clear, No crackles/rales, No rhonchi, No wheezing Cardiovascular Exam: regular rate/rhythm, normal heart sounds, No murmur Gastrointestinal/Abdomen Exam: soft, normal bowel sounds, No tenderness, No distention, No mass, No guarding, No rebound Extremity Exam: normal inspection, other (able to raise LLL, entire leg, off of the bed) Skin Exam: normal color, warm, dry, No rash Final Diagnosis/Problem List - Final Discharge Diagnosis/Problem (1) Stroke Current Visit: Yes Status: Suspected Assessment & Plan: sx are improving. Unable to do MRI or CTA head/neck. Will need to f/u with PCP outpatient and they can decide if she needs neurology f/u. I did start her on ASA 81mg/d and a statin - she was initially started on simvastatin at 40mg/d, but it does interact with amiodarone, so I have sent her home on atorvastatin 20mg po qhs. Code(s): I63.9 - CEREBRAL INFARCTION, UNSPECIFIED (2) Left leg pain Current Visit: Yes Status: Acute Assessment & Plan: some improvement with gabapentin. She is interested in outpatient PT which is a great idea. Code(s): M79.605 - PAIN IN LEFT LEG (3) Left leg weakness Current Visit: No Status: Acute Assessment & Plan: improving; she has been working on this from her bed. Code(s): R29.898 - OTH SYMPTOMS AND SIGNS INVOLVING THE MUSCULOSKELETAL SYSTEM (4) Renal insufficiency Current Visit: No Status: Chronic (5) Atrial fibrillation Current Visit: No Status: Chronic Code(s): I48.91 - UNSPECIFIED ATRIAL FIBRILLATION (6) HTN (hypertension) Current Visit: Yes Status: Chronic Code(s): I10 - ESSENTIAL (PRIMARY) HYPERTENSION (7) Pacemaker Current Visit: Yes Status: Chronic Code(s): Z95.0 - PRESENCE OF CARDIAC PACEMAKER - Discharge Disposition: Home, Self-Care Condition: Stable Prescriptions: New Gabapentin [Neurontin ] 300 mg PO TID #30 cap Acetaminophen 325 mg [Tylenol 325 mg] 650 mg PO Q4H PRN PRN tablet PRN Reason: Pain And/Or Fever Atorvastatin Calcium 20 mg PO QHS #30 tablet Aspirin EC 81 mg [Ecotrin 81 mg] 81 mg PO DAILY #30 tablet Continue Tizanidine HCl 4 mg PO TID PRN PRN PRN Reason: Pain Furosemide [Lasix] 40 mg PO DAILY PRN PRN PRN Reason: swelling Promethazine HCl 25 mg [Phenergan 25 mg] 25 mg PO Q6H PRN PRN PRN Reason: Nausea/Vomiting Levothyroxine Sodium [Synthroid] 25 mcg PO DAILY Nitroglycerin 0.4 mg SL Q5MIN PRN MR X 3 PRN PRN Reason: Chest Pain Apixaban [Eliquis] 5 mg PO BID 1 Days Morphine Sulfate [Morphine Sulfate ER] 30 mg PO BID Amiodarone HCl 200 mg [Cordarone 200 MG] 100 mg PO DAILY Famotidine 40 mg PO DAILY Metoprolol Succinate 25 mg Xl* [Toprol-Xl 25MG Tablets] 25 mg PO DAILY #30 tab Hydralazine HCl 10 mg PO Q4HPRN PRN PRN Reason: Hypertension Outpatient Orders: BMP Time Frame: 2 Days, Facility: [facility], Location: LABORATORY Follow up with: WAQAR MCCALLUM [Primary Care Provider] -
[2022-05-21 11:39] VITALS: BP 129/75; PULSE 74; O2SAT 95
[2022-05-21] MEDS ORDERED: NEURONTIN PO SCH (14:00)
[2022-05-21] MEDS ORDERED: Neurontin PO SCH (22:00)
== END 2022-05-21 15:43 | disposition home or self-care (01) | DRG 66 ==
LOC: ED 09:07 → MED SURG 15:00 → OBSVTOIN 05-19 13:15
PROVIDERS: ADMIT Family Medicine; ATTEND Family Medicine
DX: I63.9 Cerebral infarction, unspecified (principal); M79.605 Pain in left leg; R29.898 Other symptoms and signs involving the musculoskeletal system; N28.9 Disorder of kidney and ureter, unspecified; I48.91 Unspecified atrial fibrillation; I11.0 Hypertensive heart disease with heart failure; I50.9 Heart failure, unspecified; E11.9 Type 2 diabetes mellitus without complications; I25.10 Atherosclerotic heart disease of native coronary artery without angina pectoris; K46.9 Unspecified abdominal hernia without obstruction or gangrene; Z95.0 Presence of cardiac pacemaker; Z79.01 Long term (current) use of anticoagulants; Z79.899 Other long term (current) drug therapy; Z20.828 Contact with and (suspected) exposure to other viral communicable diseases; Z85.850 Personal history of malignant neoplasm of thyroid
CPT/HCPCS: 0241U; 36415; 70450; 71045; 72131; 80048; 80053; 80061; 80307; 81015; 82550; 83605; 83721; 83735; 83880; 84134; 84145; 84484; 85025; 85027; 87040; 87086; 93005; 93041; 93268; 93880; 93926; 93971; 96374; 96375; 97161; 97530; 99285; G0378; J2270; J2405; J3010; A9270-GY

== ENCOUNTER 2022-06-21 11:58 | Emergency (ER) | payer MEDICARE ==
[2022-06-21] MEDS ORDERED: MORPHINE SULFATE 4 MG INJ IV ONE ×2 (12:14→19:01)
[2022-06-21] MEDS ORDERED: Sodium Chloride 0.9% 1000 ML 1,000 ML IV SCH (12:15)
[2022-06-21] MEDS ORDERED: BENADRYL 50 MG/ML IV ONE (12:18)
--- NOTE | 2022-06-21 12:27 | ERPHSYRPT ---
- History of Present Illness Time Seen by Provider: 06/21/22 12:21 Source: patient, family Exam Limitations: no limitations Physician History: 66 yr old female with onset around 8 am of inability to raise left arm and numbness but also pain in left shoulder radiating down chest to upper abd. No hx trauma. Has Afin on Elliquis and awaiting ablation attempts. Has port for access but no hx cancer - just poor veins per pt, and in hospital a lot requiring this. PMHx prior CVA without much residual per pt. Hx Thyroid radio-ablation INdependent interview with collaborates this Hx. Ordered CBC, CMP, PTT, CT Head, Teleneuro and NIH CVA scale, Lactate , Amylase, Lipase, Thyroid TSH, EKG, BNP, Trops, Covid/Flu/RSV ( for weakness) reviewed and discussed with pt and family. Holding ASA for now pending CT scan and CVA eval teleneuro. due to bleeding risks and not classic chest pain. Has facial sym on left but states thsi is her usual ( maybe from the prior CVA?). Has pronator drift and weakness on left arm. decreased sensation left arm. pain left shoulder radiating to arm and left side /upper abd. Abd soft nontender without mass or peritoneal signs. No reported N or V. visual judge intact / fundi benign PERRLA. Chest clear ht reg without M EKG pacer functioning and LBBB pattern consistent to this with NSTST. Timing/Duration: today Severity: severe Character of Deficits: new weakness, altered sensation Deficits: weak (left UE) Baseline/Normal Cognition: alert oriented x 3 Current Cognition: alert oriented x 3 Baseline Gait: walks w/o assistance Associated Symptoms: weakness Allergies/Adverse Reactions: baclofen Allergy (Severe, Verified 06/21/22 12:01) Difficulty Breathing pt states stopped breathing Sulfa (Sulfonamide Antibiotics) [Sulfa(Sulfonamide Antibiotics)] Allergy (Severe, Verified 06/21/22 12:01) Nausea and Vomiting adhesive Allergy (Mild, Verified 06/21/22 12:01) Blisters codeine [Codeine] Allergy (Mild, Verified 06/21/22 12:01) Nausea and Vomiting iron Adverse Reaction (Intermediate, Verified 06/21/22 12:01) Nausea oxycodone [From Percocet] Adverse Reaction (Intermediate, Verified 06/21/22 12:01) Vomiting Home Medications: Tizanidine HCl 4 mg PO TID PRN PRN 11/10/17 [History] Furosemide [Lasix] 40 mg PO DAILY PRN PRN 03/09/18 [History] Promethazine HCl 25 mg [Phenergan 25 mg] 25 mg PO Q6H PRN PRN 01/14/19 [History] Levothyroxine Sodium [Synthroid] 25 mcg PO DAILY 04/29/19 [History] Nitroglycerin 0.4 mg SL Q5MIN PRN MR X 3 PRN 04/29/19 [History] Amiodarone HCl 200 mg [Cordarone 200 MG] 100 mg PO DAILY 07/30/21 [H istory] Morphine Sulfate [Morphine Sulfate ER] 30 mg PO BID 07/30/21 [History] Famotidine 40 mg PO DAILY 03/12/22 [History] Hydralazine HCl 10 mg PO Q4HPRN PRN 05/18/22 [History] Hx Tetanus, Diphtheria Vaccination/Date Given: Yes Hx Influenza Vaccination/Date Given: Yes Hx Pneumococcal Vaccination/Date Given: No Travel Risk - Vaccine Status Have you recieved a Covid-19 vaccination: No - Review of Systems Constitutional: No Fever, No Chills Eyes: No Symptoms Ears, Nose, & Throat: No Symptoms Respiratory: No Cough, No Dyspnea Cardiac: Chest Pain, No Edema, No Syncope Abdominal/Gastrointestinal: No Abdominal Pain, No Nausea, No Vomiting, No Diarrhea Genitourinary Symptoms: No Dysuria Musculoskeletal: No Back Pain, No Neck Pain Skin: No Rash Neurological: Focal Weakness, Paralysis, Parasthesia, No Dizziness, No Sensory Changes Psychological: No Symptoms Endocrine: No Symptoms Hematologic/Lymphatic: No Symptoms Immunological/Allergic: No Symptoms All Other Systems: Reviewed and Negative - Past Medical History Pertinent Past Medical History: Yes Neurological History: Migraines, Stroke ENT History: No Pertinent History Cardiac History: Angina, Arrhythmia, Congestive Heart Failure, Deep Vein Thrombosis, Myocardial Infarction (PA) Respiratory History: Asthma Endocrine Medical History: Thyroid Cancer, Other Musculoskeletal History: Other GI Medical History: GERD, Hernia, Other History: Renal Disease, Other Psycho-Social History: No Pertinent History Female Reproductive Disorders: Endometriosis Other Medical History: BACK PN. PSH: CARDIAC CATH, INTERNAL PACEMAKER/DEFIB, KEYANNA'Y CHOLECYSTECTOMY, COLON RESECTION, HERNIA SX, BACK SX, ILEOSTOMY - Past Surgical History Past Surgical History: Yes Neuro Surgical History: No Pertinent History Cardiac: Cardiac Catheterization, Internal Defibrillator, Pacemaker, Other Respiratory: No Pertinent History Gastrointestinal: Appendectomy, Cholecystectomy, Colon Resection, Hernia Repair, Other Genitourinary: No Pertinent History Musculoskeletal: Orthopedic Surgery Female Surgical History: Hysterectomy Other Surgical History: THYROID REMOVED and Parotid gland removed; 40% and 50% blockages found with last heart cath about 4 years ago. ankle surgery d/t b reak,ileostomy, CVL port removed and replaced, Port placed. HX ostomy repair due to blockage 09/02, back surgery and 4 I&D september and october and november 2017. 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 TLIF fused discs in back. OCTOBER 2018 CAROTIDECTOMY AND LYMPH NODE REMOVAL ON RIGHT SIDE. Right Parotid gland removed. "filter for blood clots 2018" - Social History Smoking Status: Never smoker Exposure to second hand smoke: No Alcohol Use: None Drug Use: none Patient Lives Alone: No Significant Family History: heart disease, cancer, diabetes - Nursing Vital Signs Nursing Vital Signs: Initial Vital Signs Temperature 96.1 F 06/21/22 12:02 Pulse Rate 80 06/21/22 12:02 Respiratory Rate 15 06/21/22 12:02 Blood Pressure 119/81 06/21/22 12:02 O2 Sat by Pulse Oximetry 100 06/21/22 12:02 Pain Scale Pain Intensity 0 - Jaycee Coma Scale Best Eye Response ([place]): (4) open spontaneously Best Verbal Response ([place]): (5) oriented Best Motor Response ([place]): (6) obeys commands [place] Total: 15 - Physical Exam General Appearance: no apparent distress, alert Eye Exam: bilateral eye: PERRL, EOMI Ears, Nose, Throat Exam: normal ENT inspection, moist mucous membranes Neck Exam: normal inspection, non-tender, supple Respiratory: normal breath sounds, lungs clear, airway intact, No respiratory distress Cardiovascular: regular rate/rhythm, No edema Gastrointestinal: soft, No tenderness, No distention Pelvic Exam: deferred Rectal Exam: deferred Back Exam: normal inspection Extremity Exam: normal inspection, No pedal edema Peripheral Pulses: carotid (R): 2+, carotid (L): 2+, femoral (R): 2+, femoral (L): 2+, dorsalis-pedis (R): 2+, dorsalis-pedis (L): 2+ 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, oriented x 3, cooperative director compliance Exam: normal hearing, normal speech, PERRL, facial asymmetry ( says this is prior without change ( maybe from prior CVA?)), tongue midline Coordination/Gait: normal finger to nose, normal gait Motor/Sensory: pronator drift (L), sensory deficit, weak motor strength LUE DTR: bicep (R): 2+, bicep (L): 2+, tricep (R): 2+, tricep (L): 2+, knee (R): 2+, knee (L): 2+, ankle (R): 2+ Skin Exam: normal color, warm, dry, No rash SpO2 Interpretation: normal SpO2: 96 O2 Delivery: Room Air - Course Nursing assessment & vital signs reviewed: Yes EKG Interpreted by Me: Left Lyons Deviation, NORMAL INTERVALS, Left Bundle Branch Block, Non-specific ST Changes, Other (paced rythym) - Radiology Exams Chest X-ray Interpretation: Interpreted by me, Reviewed by me, Other (atelectasis and Cardiomegally. ) - CT Exams Head CT Interpretation: Tele-radiologist Report, No/Intracranial Hemorrhag, Old Stroke, Other (hypodense area also for acute CVA - consulted Neuro to read also ) Ordered Tests: Active Orders 24 hr Category Date Time Status Escort Vehicle Driver STAT Care 06/21/22 12:15 Active EKG-ER Only STAT Care 06/21/22 12:14 Active IV Insertion STAT Care 06/21/22 12:14 Active NPO (ED) STAT Care 06/21/22 12:14 Active NPO (ED) STAT Care 06/21/22 12:19 Active Pulse Oximetry (ED) STAT Care 06/21/22 12:14 Active Tele-Health Consult ROUTINE Cons 06/21/22 12:19 Active CHEST 1 VIEW (PORTABLE) Stat Exams 06/21/22 12:[address] ANGIOGRAPHY NECK [CT] Stat Exams 06/21/22 14:48 Completed CTA HEAD W AND/OR WO CONTRAST [CT] Stat Exams 06/21/22 14:46 Completed HEAD WITHOUT CONTRAST [CT] Stat Exams 06/21/22 12:15 Completed AMYLASE Stat Lab 06/21/22 12:40 Completed CBC W DIFF Stat Lab 06/21/22 12:50 Completed CMP Stat Lab 06/21/22 12:40 Completed D-DIMER QUANTITATIVE Stat Lab 06/21/22 12:50 Completed LIPASE Stat Lab 06/21/22 12:40 Completed Lactic Acid Stat Lab 06/21/22 13:14 Completed NT PRO BNP Stat Lab 06/21/22 12:40 Completed PTT Stat Lab 06/21/22 12:50 Completed T4 (Thyroxine) Stat Lab 06/21/22 12:50 Completed TROPONIN Q4H Lab 06/21/22 12:50 Completed TROPONIN Q4H Lab 06/21/22 16:15 Completed TROPONIN Q4H Lab 06/21/22 16:37 Received TSH [TSH, 3RD Generation] Stat Lab 06/21/22 12:50 Completed UA W/RFX UR CULTURE Stat Lab 06/21/22 13:08 Completed Medication Summary Generic Name Dose Route Start Last Admin Trade Name Freq PRN Reason Stop Dose Admin Sodium Chloride 1,000 mls @ 100 mls/hr 06/21/22 12:15 06/21/22 12:37 Sodium Chloride 0.9% 1000 Ml IV 07/21/22 12:14 100 mls/hr .Q10H JUSTIN Administration Discontinued Medications Generic Name Dose Route Start Last Admin Trade Name Freq PRN Reason Stop Dose Admin Diphenhydramine HCl 12.5 mg 06/21/22 12:18 06/21/22 12:39 Diphenhydramine Hcl 50 Mg/Ml Vial IV 06/21/22 12:19 12.5 mg STAT ONE Administration Diphenhydramine HCl Confirm 06/21/22 12:34 Diphenhydramine Hcl 50 Mg/Ml Vial Administered 06/21/22 12:35 Dose 50 mg .ROUTE .STK-MED ONE Morphine Sulfate 4 mg 06/21/22 12:14 06/21/22 12:41 Morphine Sulfate 4 Mg/Ml Injection IV 06/21/22 12:15 4 mg STAT ONE Administration Morphine Sulfate Confirm 06/21/22 12:35 Morphine Sulfate 4 Mg/Ml Injection Administered 06/21/22 12:36 Dose 4 mg .ROUTE .STK-MED ONE Lab/Rad Data: Laboratory Result Diagrams 06/21/22 12:50 06/21/22 12:40 Laboratory Results 06/21/22 06/21/2206/21/23 Range/Units 16:15 13:14 13:08 WBC (4.0-10.5) x10^3/uL RBC (4.1-5.4) x10^6/uL Hgb (12.0-16.0) g/dL Hct (35-47) % MCV (78-100) fL MCH (26-32) pg MCHC (32-36) g/dL RDW (11.5-14.0) % Plt Count (150-450) x10^3/uL MPV (7.5-11.0) fL Gran % (36.0-66.0) % Immature Gran % (Auto) (0.00-0.4) % Nucleat RBC Rel Count (0.00-0.1) % Eos # (Auto) (0-0.5) x10^3/uL Immature Gran # (Auto) (0.00-0.03) x10^3u/L Absolute Lymphs (auto) (1.0-4.6) x10^3/uL Absolute Monos (auto) (0.0-1.3) x10^3/uL Absolute Nucleated RBC (0.00-0.01) x10^3u/L Lymphocytes % (24.0-44.0) % Monocytes % (0.0-12.0) % Eosinophils % (0.00-5.0) % Basophils % (0.0-0.4) % Absolute Granulocytes (1.4-6.9) x10^3/uL Basophils # (0-0.4) x10^3/uL APTT (25.1-36.5) SECONDS D-Dimer (0.0-0.50) mg/L Sodium (137-145) mmol/L Potassium (3.5-5.1) mmol/L Chloride (98-107) mmol/L Carbon Dioxide (22-30) mmol/L Anion Gap (5-15) MEQ/L BUN (7-17) mg/dL Creatinine (0.52-1.04) mg/dL Estimated GFR ML/MIN Glucose (74-106) mg/dL Lactic Acid 1.0 (0.4-2.0) Calcium (8.4-10.2) mg/dL Total Bilirubin (0.2-1.3) mg/dL AST (14-36) U/L ALT (0-35) U/L Alkaline Phosphatase (38-126) U/L Troponin I < 0.012 (0.000-0.034) ng/mL NT-Pro-B Natriuret Pep (0-900) pg/mL Serum Total Protein (6.3-8.2) g/dL Albumin (3.5-5.0) g/dL Amylase (30-110) U/L Lipase (23-300) U/L Thyroxine (T4) (5.53-10.96) ug/dL TSH 3rd Generation (0.47-4.68) mIU/L Urine Color Yellow (Yellow) Urine Appearance Clear (Clear) Urine pH 5.0 (4.6-8.0) Ur Specific Ariton 1.020 (1.005-1.030) Urine Protein Negative (Negative) Urine Glucose (UA) Negative (Negative) mg/dL Urine Ketones Negative (Negative) Urine Blood Negative (Negative) Urine Nitrite Negative (Negative) Urine Bilirubin Negative (Negative) Urine Urobilinogen 0.2 (0.2) mg/dL Ur Leukocyte Esterase Negative (Negative) U Hyaline Cast (Auto) NONE SEEN (0-2) /LPF Urine Microscopic RBC 0-2 (0-5) /HPF Urine Microscopic WBC 0-2 (0-5) /HPF Ur Epithelial Cells None Seen (None Seen) /HPF Urine Bacteria None Seen (None Seen) /HPF Urine Culture Reflexed NO (NO) Influenza Type A Ag (NEGATIVE) Influenza Type B Ag (NEGATIVE) RSV (PCR) (Negative) SARS-CoV-2 (PCR) (NEGATIVE) 06/21/22 06/21/22 06/21/22 Range/Units 12:50 12:50 12:50 WBC (4.0-10.5) x10^3/uL RBC (4.1-5.4) x10^6/uL Hgb (12.0-16.0) g/dL Hct (35-47) % MCV (78-100) fL MCH (26-32) pg MCHC (32-36) g/dL RDW (11.5-14.0) % Plt Count (150-450) x10^3/uL MPV (7.5-11.0) fL Gran % (36.0-66.0) % Immature Gran % (Auto) (0.00-0.4) % Nucleat RBC Rel Count (0.00-0.1) % Eos # (Auto) (0-0.5) x10^3/uL Immature Gran # (Auto) (0.00-0.03) x10^3u/L Absolute Lymphs (auto) (1.0-4.6) x10^3/uL Absolute Monos (auto) (0.0-1.3) x10^3/uL Absolute Nucleated RBC (0.00-0.01) x10^3u/L Lymphocytes % (24.0-44.0) % Monocytes % (0.0-12.0) % Eosinophils % (0.00-5.0) % Basophils % (0.0-0.4) % Absolute Granulocytes (1.4-6.9) x10^3/uL Basophils # (0-0.4) x10^3/uL APTT 23.0 L (25.1-36.5) SECONDS D-Dimer 4.30 H* (0.0-0.50) mg/L Sodium (137-145) mmol/L Potassium (3.5-5.1) mmol/L Chloride (98-107) mmol/L Carbon Dioxide (22-30) mmol/L Anion Gap (5-15) MEQ/L BUN (7-17) mg/dL Creatinine (0.52-1.04) mg/dL Estimated GFR ML/MIN Glucose (74-106) mg/dL Lactic Acid (0.4-2.0) Calcium (8.4-10.2) mg/dL Total Bilirubin (0.2-1.3) mg/dL AST (14-36) U/L ALT (0-35) U/L Alkaline Phosphatase (38-126) U/L Troponin I < 0.012 (0.000-0.034) ng/mL NT-Pro-B Natriuret Pep (0-900) pg/mL Serum Total Protein (6.3-8.2) g/dL Albumin (3.5-5.0) g/dL Amylase (30-110) U/L Lipase (23-300) U/L Thyroxine (T4) 8.07 (5.53-10.96) ug/dL TSH 3rd Generation 23.500 H (0.47-4.68) mIU/L Urine Color (Yellow) Urine Appearance (Clear) Urine pH (4.6-8.0) Ur Specific Ariton (1.005-1.030) Urine Protein (Negative) Urine Glucose (UA) (Negative) mg/dL Urine Ketones (Negative) Urine Blood (Negative) Urine Nitrite (Negative) Urine Bilirubin (Negative) Urine Urobilinogen (0.2) mg/dL Ur Leukocyte Esterase (Negative) U Hyaline Cast (Auto) (0-2) /LPF Urine Microscopic RBC (0-5) /HPF Urine Microscopic WBC (0-5) /HPF Ur Epithelial Cells (None Seen) /HPF Urine Bacteria (None Seen) /HPF Urine Culture Reflexed (NO) Influenza Type A Ag (NEGATIVE) Influenza Type B Ag (NEGATIVE) RSV (PCR) (Negative) SARS-CoV-2 (PCR) (NEGATIVE) 06/21/22 06/21/22 06/21/22 Range/Units 12:50 12:40 12:40 WBC 5.8 (4.0-10.5) x10^3/uL RBC 3.94 L (4.1-5.4) x10^6/uL Hgb 11.2 L (12.0-16.0) g/dL Hct 36.6 (35-47) % MCV 92.9 (78-100) fL MCH 28.4 (26-32) pg MCHC 30.6 L (32-36) g/dL RDW 14.9 H (11.5-14.0) % Plt Count 191 (150-450) x10^3/uL MPV 9.4 (7.5-11.0) fL Gran % 66.6 H (36.0-66.0) % Immature Gran % (Auto) 0.2 (0.00-0.4) % Nucleat RBC Rel Count 0.0 (0.00-0.1) % Eos # (Auto) 0.13 (0-0.5) x10^3/uL Immature Gran # (Auto) 0.01 (0.00-0.03) x10^3u/L Absolute Lymphs (auto) 1.31 (1.0-4.6) x10^3/uL Absolute Monos (auto) 0.41 (0.0-1.3) x10^3/uL Absolute Nucleated RBC 0.00 (0.00-0.01) x10^3u/L Lymphocytes % 22.8 L (24.0-44.0) % Monocytes % 7.1 (0.0-12.0) % Eosinophils % 2.3 (0.00-5.0) % Basophils % 1.0 (0.0-0.4) % Absolute Granulocytes 3.83 (1.4-6.9) x10^3/uL Basophils # 0.06 (0-0.4) x10^3/uL APTT (25.1-36.5) SECONDS D-Dimer (0.0-0.50) mg/L Sodium 137 (137-145) mmol/L Potassium 4.5 (3.5-5.1) mmol/L Chloride 107 (98-107) mmol/L Carbon Dioxide 23 (22-30) mmol/L Anion Gap 10.7 (5-15) MEQ/L BUN 16 (7-17) mg/dL Creatinine 0.94 (0.52-1.04) mg/dL Estimated GFR > 60.0 ML/MIN Glucose 90 (74-106) mg/dL Lactic Acid (0.4-2.0) Calcium 8.6 (8.4-10.2) mg/dL Total Bilirubin 0.60 (0.2-1.3) mg/dL AST 24 (14-36) U/L ALT 11 (0-35) U/L Alkaline Phosphatase 86 (38-126) U/L Troponin I (0.000-0.034) ng/mL NT-Pro-B Natriuret Pep 913 H (0-900) pg/mL Serum Total Protein 7.0 (6.3-8.2) g/dL Albumin 3.9 (3.5-5.0) g/dL Amylase 35 (30-110) U/L Lipase 78 (23-300) U/L Thyroxine (T4) (5.53-10.96) ug/dL TSH 3rd Generation (0.47-4.68) mIU/L Urine Color (Yellow) Urine Appearance (Clear) Urine pH (4.6-8.0) Ur Specific Ariton (1.005-1.030) Urine Protein (Negative) Urine Glucose (UA) (Negative) mg/dL Urine Ketones (Negative) Urine Blood (Negative) Urine Nitrite (Negative) Urine Bilirubin (Negative) Urine Urobilinogen (0.2) mg/dL Ur Leukocyte Esterase (Negative) U Hyaline Cast (Auto) (0-2) /LPF Urine Microscopic RBC (0-5) /HPF Urine Microscopic WBC (0-5) /HPF Ur Epithelial Cells (None Seen) /HPF Urine Bacteria (None Seen) /HPF Urine Culture Reflexed (NO) Influenza Type A Ag NEGATIVE (NEGATIVE) Influenza Type B Ag NEGATIVE (NEGATIVE) RSV (PCR) NEGATIVE (Negative) SARS-CoV-2 (PCR) NEGATIVE (NEGATIVE) - Progress Progress: improved, re-examined Progress Note: 06/21/22 15:[address] Mensah tele-neurology : THere is an old CVA, but likely new CVA on top of this . Pt is unable to have MRI due to cardiac pacer. Pt is out of time window for TPA per Neuro consult. THey advise CTA head and neck to rule out LVA which would require further consultation for intervention. THey advise otw to hold elliquis until repeat CT tomorrow to reduce chance for bleed, and go on ASA 325 daily until then to decide elliquis for future - they ( Neuro and pt) are aware of the afib clot risk. Neuro tele also provided second reading from the usual telerad confirming CT head findings. Awaiting CTA head adn neck which will require some additional time. 06/21/22 15:18 06/21/22 18:03 CTA reading revealed no LVO and no bleeding radiologist consultation Dr. Rome 06/21/22 18:[address] Kelley at [facility] but he was not the correct service. Consulted with Dr. Dewitt at [facility] and discussed all findings as above and she has accepted the pt for transfer. to w/u beebe healthcare issues and observe and tx CVa. Discussed with DrMargarita: Other (Dr. Dewitt) Will see patient in: hospital (full admit) Counseled pt/family regarding: lab results, diagnosis, need for follow-up, rad results - Departure Departure Disposition: Transfer Clinical Impression: Left CVA UE, Chest pain Condition: Good Critical Care Time: No Referrals: WAQAR CASTRO [Primary Care Provider] - Follow up/PCP as directed
[2022-06-21] MEDS ORDERED: BENADRYL 50 MG/ML ONE (12:34)
[2022-06-21] MEDS ORDERED: Sodium Chloride 0.9% 1000 ML 1,000 ML ONE (12:35)
[2022-06-21] MEDS ORDERED: MORPHINE SULFATE 4 MG INJ ONE ×2 (12:35→19:25)
--- NOTE | 2022-06-21 13:01 | XRAY ---
Indication: Left chest pain. Comparison: May 18, 2022 Portable chest unchanged again inflated and clear. Heart borderline enlarged again with left AICD and left Port-A-Cath. Bony thorax intact again with osteopenia. No new/acute findings.
[2022-06-21 13:06] LABS: ALBUMIN 3.9 g/dL (3.5-5.0); ALKALINE PHOSPHATASE 86 U/L (38-126); AMYLASE 35 U/L (30-110); ANION GAP 10.7 MEQ/L (5-15); BLOOD UREA NITROGEN 16 mg/dL (7-17); CHLORIDE 107 mmol/L (98-107); Calcium 8.6 mg/dL (8.4-10.2); Carbon Dioxide 23 mmol/L (22-30); Creatinine 1 0.94 mg/dL (0.52-1.04); EST GLOMERULAR FILTRATION RATE > 60.0 ML/MIN; Glucose 90 mg/dL (74-106); LIPASE 78 U/L (23-300); NT PRO BNP 913 pg/mL (0-900); Potassium 4.5 mmol/L (3.5-5.1); SGOT/AST 24 U/L (14-36); SGPT/ALT 11 U/L (0-35); SODIUM 137 mmol/L (137-145)
[2022-06-21 13:12] LABS: Absolute Neutrophil Ct (ANC) 3.83 x10^3/uL (1.4-6.9); Basophil (Absolute #) 0.06 x10^3/uL (0-0.4); Eosinophil % 2.3 % (0.00-5.0); Eosinophil (Absolute #) 0.13 x10^3/uL (0-0.5); Hematocrit 36.6 % (35-47); Hemoglobin 11.2 g/dL (12.0-16.0); IMMATURE GRAN # 0.01 x10^3u/L (0.00-0.03); IMMATURE GRAN % 0.2 % (0.00-0.4); Lymphocyte (Absolute #) 1.31 x10^3/uL (1.0-4.6); Lymphocytes % 22.8 % (24.0-44.0); Mean Cell Volume 92.9 fL (78-100); Mean Corpuscular Hemoglobin 28.4 pg (26-32); Mean Corpuscular Hgb Concent. 30.6 g/dL (32-36); Mean Platelet Volume 9.4 fL (7.5-11.0); Monocyte (Absolute #) 0.41 x10^3/uL (0.0-1.3); Monocytes % 7.1 % (0.0-12.0); Neutrophil % 66.6 % (36.0-66.0); Platelet Count 191 x10^3/uL (150-450); Red Blood Count 3.94 x10^6/uL (4.1-5.4); Red Cell Distribution Width 14.9 % (11.5-14.0); White Blood Count 5.8 x10^3/uL (4.0-10.5)
[2022-06-21 13:25] LABS: INFLUENZA A NEGATIVE (NEGATIVE); INFLUENZA B NEGATIVE (NEGATIVE); RESPIRATORY SYNCTIAL VIRUS NEGATIVE (Negative); SARS-CoV-2 Xpert Express NEGATIVE (NEGATIVE)
--- NOTE | 2022-06-21 13:36 | XRAY ---
Indication: Left arm numbness and weakness. History stroke. Multiple contiguous images obtained through the head without contrast. Comparison: May 18, 2022 Grossly stable age-appropriate global atrophy, moderate periventricular degenerative micro-ischemia, and multifocal old bilateral cerebral infarcts. No acute intracranial hemorrhage, hydrocephalus, or mass effect. Fourth ventricle is midline. Bony calvarium intact. Visualized paranasal sinuses and mastoid air cells are clear. Impression: Continued nonacute senile brain with old multifocal bilateral cerebral infarcts.
[2022-06-21 13:39] LABS: D-DIMER QUANTITATIVE 4.3 mg/L (0.0-0.50)
[2022-06-21 13:40] LABS: Appearance Clear (Clear); Bacteria None Seen /HPF (None Seen); Bilirubin Negative (Negative); Blood Negative (Negative); Epithelial Cells None Seen /HPF (None Seen); Glucose, Urine Negative (Negative); Hyaline Casts NONE SEEN /LPF (0-2); Ketones Negative (Negative); Leukocyte Esterase Negative (Negative); Nitrite Negative (Negative); Protein,Urine Dip Negative (Negative); RBC 0-2 /HPF (0-5); Urobilinogen 0.2 mg/dL (0.2); WBC 0-2 /HPF (0-5)
[2022-06-21 13:46] LABS: ADD URINE CULTURE? NO (NO)
[2022-06-21 14:41] LABS: T4 (Thyroxine) 8.07 ug/dL (5.53-10.96); TSH, 3RD Generation 23.5 mIU/L (0.47-4.68)
--- NOTE | 2022-06-21 17:00 | XRAY ---
Indication: Left-sided weakness. Conventional contrast enhanced CTA neck performed using 80 cc Isovue 370 contrast. 2-D sagittal and coronal reformatted images obtained. Additional 3-D reformatted images obtained using a separate workstation. Comparison: None Visualized aortic arch demonstrates widely patent branch right brachiocephalic, left common carotid, and left subclavian arteries. Normal CTA appearance to the common carotid, carotid bulb, internal carotid, and external carotid arteries bilaterally. Vertebral arteries are also normal in CTA appearance with the left larger in caliber. Visualized soft tissues are negative for pathologic cervical/supraclavicular lymphadenopathy. Parotid and submandibular glands are unremarkable. Thyroid gland either surgically absent or atrophic. Supra and infraglottic airway widely patent. Normal epiglottis. Visualized osseous structures intact. Patient is edentulous. Lung apices clear. Impression: Normal CTA neck with contrast exam.
--- NOTE | 2022-06-21 17:02 | XRAY ---
Indication: Left-sided weakness. Conventional contrast enhanced CTA head performed using 80 cc Isovue 370 contrast. 2-D sagittal and coronal reformatted images obtained. Additional 3-D reformatted images obtained using a separate workstation. Comparison: None Distal internal carotid arteries are normal in course and caliber with minimal calcifications involving the suprasellar segments bilaterally. No critical stenosis, obstruction, or AV malformation. Normal carotid terminus with normal branching A1 and M1 segments bilaterally. More distal anterior cerebral and middle cerebral arteries are normal in CTA appearance bilaterally. Incidental anatomic variant for origin left posterior cerebral artery. Posterior circulation demonstrates normal CTA appearance to the basilar, left/right posterior cerebral, left/right superior cerebellar, and left/right anterior-inferior cerebellar arteries. Venous sinuses/drainage unremarkable. No abnormal enhancing intra or extra-axial mass. Impression: Minimal arteriosclerotic calcifications suprasellar segments of both internal carotid arteries. Anatomic variant origin left posterior cerebral artery. Remaining CTA head with contrast exam is negative.
[2022-06-22] MEDS ORDERED: MORPHINE SULFATE 4 MG INJ IV ONE (01:52)
[2022-06-22] MEDS ORDERED: MORPHINE SULFATE 4 MG INJ ONE (02:32)
[2022-06-22 02:44] VITALS: BP 128/76; PULSE 71; O2SAT 97
== END 2022-06-22 02:44 | disposition short-term general hospital (02) ==
LOC: ED 11:58
DX: I63.9 Cerebral infarction, unspecified (principal); R07.9 Chest pain, unspecified; R20.0 Anesthesia of skin; M62.81 Muscle weakness (generalized); M25.512 Pain in left shoulder; Z79.01 Long term (current) use of anticoagulants; Z79.899 Other long term (current) drug therapy; Z28.310 Unvaccinated for COVID-19; Z20.828 Contact with and (suspected) exposure to other viral communicable diseases
CPT/HCPCS: 0241U; 36000; 36415; 70450; 70496; 70498; 71045; 80053; 81001; 82150; 83605; 83690; 83880; 84436; 84443; 84484; 85025; 85379; 85730; 93005; 93041; 94760; 96374; 96375; 96376; 99285; 96360; 96361; J1200; J2270

== ENCOUNTER 2022-07-25 09:45 | Emergency (ER) | payer MEDICARE ==
--- NOTE | 2022-07-25 09:47 | ERPHSYRPT ---
- History of Present Illness Time Seen by Provider: 07/25/22 09:47 Physician History: This is a morbidly obese 67-year-old white female patient of Dr. Mccallum who underwent an open abdominal surgery within the last month per patient and patient's family. They are not clear as to what was actually performed but patient describes removal of mesh and adhesions. Patient complains primarily of right lower abdominal pain but does have pain on the left side. She does have 2 open granulating sites on her midline laparotomy incision line. The pain in the right lower abdomen was present, per patient and family report, even prior to her last surgery. Patient had the granulating abdominal wound sites cultured on 07/23/2022. Patient's surgery was performed at [facility]. Patient has a history of hypothyroidism, migraine headaches, CHF, DVTs, coronary artery disease (pacemaker and defibrillator in place) and renal disease Timing/Duration: week(s) (Several weeks), worse Abdominal Pain Onset Location: RLQ, LLQ Pain Radiation: no radiation Severity of Pain-Max: moderate Severity of Pain-Current: moderate Associated Symptoms: No diarrhea, No fever/chills, No loss of appetite, No nausea, No vomiting Previous symptoms: same symptoms as today, recently seen, recent hospitalization, recently treated Allergies/Adverse Reactions: baclofen Allergy (Severe, Verified 07/25/22 10:04) Difficulty Breathing pt states stopped breathing Sulfa (Sulfonamide Antibiotics) [Sulfa(Sulfonamide Antibiotics)] Allergy (Sev ere, Verified 07/25/22 10:04) Nausea and Vomiting adhesive Allergy (Mild, Verified 07/25/22 10:04) Blisters codeine [Codeine] Allergy (Mild, Verified 07/25/22 10:04) Nausea and Vomiting iron Adverse Reaction (Intermediate, Verified 07/25/22 10:04) Nausea oxycodone [From Percocet] Adverse Reaction (Intermediate, Verified 07/25/22 10:04) Vomiting Home Medications: Tizanidine HCl 4 mg PO TID PRN PRN 11/10/17 [History] Furosemide [Lasix] 40 mg PO DAILY PRN PRN 03/09/18 [History] Promethazine HCl 25 mg [Phenergan 25 mg] 25 mg PO Q6H PRN PRN 01/14/19 [History] Levothyroxine Sodium [Synthroid] 25 mcg PO DAILY 04/29/19 [History] Nitroglycerin 0.4 mg SL Q5MIN PRN MR X 3 PRN 04/29/19 [History] Amiodarone HCl 200 mg [Cordarone 200 MG] 100 mg PO DAILY 07/30/21 [History] Morphine Sulfate [Morphine Sulfate ER] 30 mg PO BID 07/30/21 [History] Famotidine 40 mg PO DAILY 03/12/22 [History] Hydralazine HCl 10 mg PO Q4HPRN PRN 05/18/22 [History] Cephalexin Mh 500 mg [Keflex 500 mg] 1 ea TID 07/25/22 [History] Hx Tetanus, Diphtheria Vaccination/Date Given: Yes Hx Influenza Vaccination/Date Given: Yes Hx Pneumococcal Vaccination/Date Given: No Travel Risk - International Travel Have you traveled outside of the country in past 3 weeks: No - Coronavirus Screening Are you exhibiting any of the following symptoms?: No Close contact with a COVID-19 positive Pt in past 14-21 Days: No - Vaccine Status Have you recieved a Covid-19 vaccination: No - Review of Systems Constitutional: No Symptoms Eyes: No Symptoms Ears, Nose, & Throat: No Symptoms Respiratory: No Symptoms Cardiac: No Symptoms Abdominal/Gastrointestinal: Abdominal Pain, No Nausea, No Vomiting, No Diarrhea Genitourinary Symptoms: No Symptoms Musculoskeletal: No Symptoms Skin: No Symptoms Neurological: No Symptoms Psychological: No Symptoms Endocrine: No Symptoms Hematologic/Lymphatic: No Symptoms Immunological/Allergic: No Symptoms All Other Systems: Reviewed and Negative - Past Medical History Pertinent Past Medical History: Yes Neurological History: Migraines, Stroke ENT History: No Pertinent History Cardiac History: Angina, Arrhythmia, Congestive Heart Failure, Deep Vein Thrombosis, Myocardial Infarction (CT) Respiratory History: Asthma Endocrine Medical History: Thyroid Cancer, Other Musculoskeletal History: Other GI Medical History: GERD, Hernia, Other History: Renal Disease, Other Psycho-Social History: No Pertinent History Female Reproductive Disorders: Endometriosis Other Medical History: BACK PN. PSH: CARDIAC CATH, INTERNAL PACEMAKER/DEFIB, KEYANNA'Y CHOLECYSTECTOMY, COLON RESECTION, HERNIA SX, BACK SX, ILEOSTOMY - Past Surgical History Past Surgical History: Yes Neuro Surgical History: No Pertinent History Cardiac: Cardiac Catheterization, Internal Defibrillator, Pacemaker, Other Respiratory: No Pertinent History Gastrointestinal: Appendectomy, Cholecystectomy, Colon Resection, Hernia Repair, Other Genitourinary: No Pertinent History Musculoskeletal: Orthopedic Surgery Female Surgical History: Hysterectomy Other Surgical History: THYROID REMOVED and Parotid gland removed; 40% and 50% blockages found with last heart cath about 4 years ago. ankle surgery d/t break,ileostomy, CVL port removed and replaced, Port placed. HX ostomy repair due to blockage 09/02, back surgery and 4 I&D september and october and november 2017. 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 TLIF fused discs in back. OCTOBER 2018 CAROTIDECTOMY AND LYMPH NODE REMOVAL ON RIGHT SIDE. Right Parotid gland removed. "filter for blood clots 2018" - Social History Smoking Status: Never smoker Exposure to second hand smoke: No Alcohol Use: None Drug Use: none Patient Lives Alone: No Significant Family History: heart disease, cancer, diabetes - Nursing Vital Signs Nursing Vital Signs: Initial Vital Signs Temperature 96.5 F 07/25/22 10:02 Pulse Rate 100 H 07/25/22 10:02 Respiratory Rate 18 07/25/22 10:02 Blood Pressure 100/80 07/25/22 10:02 O2 Sat by Pulse Oximetry 98 07/25/22 10:02 Pain Scale Pain Intensity 6 - Physical Exam General Appearance: no apparent distress, alert, anxiety Eye Exam: PERRL/EOMI, eyes nml inspection Ears, Nose, Throat Exam: normal ENT inspection, moist mucous membranes Neck Exam: normal inspection, non-tender, supple, full range of motion Respiratory Exam: normal breath sounds, lungs clear, airway intact, No chest tenderness, No respiratory distress Cardiovascular Exam: regular rate/rhythm, normal heart sounds, normal peripheral pulses Gastrointestinal/Abdomen Exam: soft, normal bowel sounds, tenderness (Right and left lower quadrants), guarding (Right and left lower quadrants to palpation), other (Midline laparotomy incision with 2 open granulating areas. 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, normal mood/affect, nml cerebellar function, nml station & gait, sensation nml (To open granulating wounds midline abdominal incision) Skin Exam: other (2 open granulating wounds midline laparotomy incision) Lymphatic Exam: No adenopathy SpO2 Interpretation: normal O2 Delivery: Room Air - Course Nursing assessment & vital signs reviewed: Yes Ordered Tests: Active Orders 24 hr Category Date Time Status IV Insertion STAT Care 07/25/22 10:09 Active ABDOMEN AND PELVIS W/0 CONTRAS [CT] Stat Exams 07/25/22 10:09 Completed AMYLASE Stat Lab 07/25/22 10:23 Completed CBC W DIFF Stat Lab 07/25/22 10:23 Completed CMP Stat Lab 07/25/22 10:23 Completed CULTURE,URINE Stat Lab 07/25/22 10:14 Received Lactic Acid Stat Lab 07/25/22 10:13 Completed UA W/RFX UR CULTURE Stat Lab 07/25/22 10:14 Completed Medication Summary Generic Name Dose Route Start Last Admin Trade Name Fretrevor PRN Reason Stop Dose Admin Heparin Sodium (Beef Lung) 500 units 07/25/22 12:21 Heparin Lock Flush Pf 500 Units/5 Ml Syringe PORT FLUSH 08/24/22 12:20 PRN PRN IV PORT FLUSH Sodium Chloride 1,000 mls @ 100 mls/hr 07/25/22 10:15 07/25/22 10:56 Sodium Chloride 0.9% 1000 Ml IV 08/24/22 10:14 100 mls/hr .Q10H JUSTIN Administration Discontinued Medications Generic Name Dose Route Start Last Admin Trade Name Brad PRN Reason Stop Dose Admin Furosemide 40 mg 07/25/22 11:50 07/25/22 12:27 Furosemide 40 Mg/4 Ml Vial IV 07/25/22 11:51 Not Given STAT ONE Furosemide 40 mg 07/25/22 12:28 Furosemide 40 Mg Tablet PO 07/25/22 12:29 STAT ONE Hydromorphone HCl 0.5 mg 07/25/22 10:12 07/25/22 12:25 Hydromorphone 1 Mg/1ml Inj 1 Mg/Ml Syringe IV 07/25/22 10:13 Not Given STAT ONE Ceftriaxone Sodium/Dextrose 1 g in 50 mls @ 100 mls/hr 07/25/22 11:16 07/25/22 11:49 Rocephin 1 Gm-D5w 50 Ml Bag IV 07/25/22 11:45 100 mls/hr STAT STA 100 mls/hr Administration Ceftriaxone Sodium/Dextrose Confirm 07/25/22 11:48 Rocephin 1 Gm-D5w 50 Ml Bag Administered 07/25/22 11:49 Dose 1 g in 50 mls @ ud IV .STK-MED ONE Ondansetron HCl 4 mg 07/25/22 10:09 07/25/22 10:56 Ondansetron Hcl 4 Mg/2 Ml Vial IV 07/25/22 10:10 4 mg STAT ONE Administration Ondansetron HCl Confirm 07/25/22 10:54 Ondansetron Hcl 4 Mg/2 Ml Vial Administered 07/25/22 10:55 Dose 4 mg .ROUTE .STK-MED ONE Potassium Chloride 20 meq 07/25/22 11:59 Potassium Chloride Tab 10 Meq Tab PO 07/25/22 12:00 STAT ONE Lab/Rad Data: Laboratory Result Diagrams 07/25/22 10:23 07/25/22 10:23 Laboratory Results 07/25/22 07/25/22 07/25/22 Range/Units 10:23 10:23 10:14 WBC 9.7 (4.0-10.5) x10^3/uL RBC 3.40 L (4.1-5.4) x10^6/uL Hgb 9.3 L (12.0-16.0) g/dL Hct 30.5 L (35-47) % MCV 89.7 (78-100) fL MCH 27.4 (26-32) pg MCHC 30.5 L (32-36) g/dL RDW 15.4 H (11.5-14.0) % Plt Count 273 (150-450) x10^3/uL MPV 8.9 (7.5-11.0) fL Gran % 79.8 H (36.0-66.0) % Immature Gran % (Auto) 1.1 H (0.00-0.4) % Nucleat RBC Rel Count 0.0 (0.00-0.1) % Eos # (Auto) 0.13 (0-0.5) x10^3/uL Immature Gran # (Auto) 0.11 H (0.00-0.03) x10^3u/L Absolute Lymphs (auto) 1.31 (1.0-4.6) x10^3/uL Absolute Monos (auto) 0.38 (0.0-1.3) x10^3/uL Absolute Nucleated RBC 0.00 (0.00-0.01) x10^3u/L Lymphocytes % 13.4 L (24.0-44.0) % Monocytes % 3.9 (0.0-12.0) % Eosinophils % 1.3 (0.00-5.0) % Basophils % 0.5 (0.0-0.4) % Absolute Granulocytes 7.76 H (1.4-6.9) x10^3/uL Basophils # 0.05 (0-0.4) x10^3/uL Sodium 138 (137-145) mmol/L Potassium 3.3 L (3.5-5.1) mmol/L Chloride 105 (98-107) mmol/L Carbon Dioxide 23 (22-30) mmol/L Anion Gap 12.7 (5-15) MEQ/L BUN 12 (7-17) mg/dL Creatinine 1.22 H (0.52-1.04) mg/dL Estimated GFR 46.9 ML/MIN Glucose 134 H (74-106) mg/dL Lactic Acid (0.4-2.0) Calcium 8.1 L (8.4-10.2) mg/dL Total Bilirubin 0.40 (0.2-1.3) mg/dL AST 20 (14-36) U/L ALT 10 (0-35) U/L Alkaline Phosphatase 90 (38-126) U/L Serum Total Protein 6.9 (6.3-8.2) g/dL Albumin 3.2 L (3.5-5.0) g/dL Amylase 44 (30-110) U/L Urine Color Dark Yellow A (Yellow) Urine Appearance Turbid A (Clear) Urine pH 5.5 (4.6-8.0) Ur Specific [place] 1.025 (1.005-1.030) Urine Protein 100 A (Negative) Urine Glucose (UA) Negative (Negative) mg/dL Urine Ketones Trace A (Negative) Urine Blood Small A (Negative) Urine Nitrite Negative (Negative) Urine Bilirubin Negative (Negative) Urine Urobilinogen 1.0 A (0.2) mg/dL Ur Leukocyte Esterase Small A (Negative) U Hyaline Cast (Auto) 26-50 A (0-2) /LPF Urine Microscopic RBC 6-10 A (0-5) /HPF Urine Microscopic WBC 21-50 A (0-5) /HPF Ur Epithelial Cells Many A (None Seen) /HPF Urine Bacteria Few A (None Seen) /HPF Urine Culture Reflexed YES (NO) 07/25/22 Range/Units 10:13 WBC (4.0-10.5) x10^3/uL RBC (4.1-5.4) x10^6/uL Hgb (12.0-16.0) g/dL Hct (35-47) % MCV (78-100) fL MCH (26-32) pg MCHC (32-36) g/dL RDW (11.5-14.0) % Plt Count (150-450) x10^3/uL MPV (7.5-11.0) fL Gran % (36.0-66.0) % Immature Gran % (Auto) (0.00-0.4) % Nucleat RBC Rel Count (0.00-0.1) % Eos # (Auto) (0-0.5) x10^3/uL Immature Gran # (Auto) (0.00-0.03) x10^3u/L Absolute Lymphs (auto) (1.0-4.6) x10^3/uL Absolute Monos (auto) (0.0-1.3) x10^3/uL Absolute Nucleated RBC (0.00-0.01) x10^3u/L Lymphocytes % (24.0-44.0) % Monocytes % (0.0-12.0) % Eosinophils % (0.00-5.0) % Basophils % (0.0-0.4) % Absolute Granulocytes (1.4-6.9) x10^3/uL Basophils # (0-0.4) x10^3/uL Sodium (137-145) mmol/L Potassium (3.5-5.1) mmol/L Chloride (98-107) mmol/L Carbon Dioxide (22-30) mmol/L Anion Gap (5-15) MEQ/L BUN (7-17) mg/dL Creatinine (0.52-1.04) mg/dL Estimated GFR ML/MIN Glucose (74-106) mg/dL Lactic Acid 1.6 (0.4-2.0) Calcium (8.4-10.2) mg/dL Total Bilirubin (0.2-1.3) mg/dL AST (14-36) U/L ALT (0-35) U/L Alkaline Phosphatase (38-126) U/L Serum Total Protein (6.3-8.2) g/dL Albumin (3.5-5.0) g/dL Amylase (30-110) U/L Urine Color (Yellow) Urine Appearance (Clear) Urine pH (4.6-8.0) Ur Specific [place] (1.005-1.030) Urine Protein (Negative) Urine Glucose (UA) (Negative) mg/dL Urine Ketones (Negative) Urine Blood (Negative) Urine Nitrite (Negative) Urine Bilirubin (Negative) Urine Urobilinogen (0.2) mg/dL Ur Leukocyte Esterase (Negative) U Hyaline Cast (Auto) (0-2) /LPF Urine Microscopic RBC (0-5) /HPF Urine Microscopic WBC (0-5) /HPF Ur Epithelial Cells (None Seen) /HPF Urine Bacteria (None Seen) /HPF Urine Culture Reflexed (NO) - Progress Progress: improved, pain not gone completely, re-examined Progress Note: 07/25/22 11:51 CAT scan of the abdomen pelvis without contrast: Status post ostomy reversal with intact sigmoid anastomosis. There is evidence of cardiomegaly with bibasilar pleural effusions. Superimposed pneumonia cannot be completely excluded. This patient has multiple medical issues. Today's primary medical issue is 1 of moderate complexity. The level of complexity and work-up was based on review of the patient's past medical history, medication list, drug allergy list as well as taking into account history of present illness and physical findings on examination. The work-up performed includes placement of an intravenous line, urinalysis, CBC, CMP, lactic acid and a CAT scan of the abdomen and pelvis wit hout contrast. I reviewed the results of the work-up. I also reviewed the results of the work-up with the patient. The patient has a urinary tract infection. The results show from fluid overload and patient has no cough and no specific complaints of shortness of breath or chest pain. I will provide the patient with an extra dose of Lasix 40 mg intravenously. There is no specific evidence of a superimposed pneumonia although it cannot be completely excluded. We will cover her urinary tract infection and prophylactically treat for an pneumonia by using Levaquin orally as an outpatient. Patient has no acute intra-abdominal or intrapelvic abnormalities. She does have dehiscence that is mild of her midline laparotomy wound. However this is granulating in. The Levaquin can prophylactically treat a wound infection. We will check on her wound cultures to see if they have returned. Discharge plan was discussed with the patient and that is oral Levaquin and I will add a couple days of pain medication. Patient is to follow-up with her primary care provider and her further evaluation and management. 07/25/22 12:00 I reviewed the culture and sensitivity of the wound culture that was obtained on 07/23/2022. It does show sensitivity to Levaquin and it appears to be MRSA. 07/25/22 12:28 The nurses did not give the patient the Dilaudid ordered. The patient is currently sleepy and her blood pressure, as typical for her, runs in the mid 90s systolically. She took her oral extended morphine prior to arrival. I will not be writing her any narcotics for home. She has it available at home Counseled pt/family regarding: lab results, diagnosis, need for follow-up, rad results Medical Desision Making - Independent Historian Additional History obtained from: Relative/friend - Discussion of managment Reviewed:: Test results Agreed on:: Treatment plan, need for follow-up - Social Determinants of Health Limited access to: transportation - Diagnostic Testing Diagnostic test were ordered, analyzed, and reviewed by me: Yes Radiological Interpretation: Reviewed by me, Teleradiologist Report - Risk of complications The pt has a mod risk of morbidity or mortality based on: Need for prescription drug management - Departure Departure Disposition: Home Clinical Impression: Wound dehiscence, surgical, UTI (urinary tract infection), Pleural effusion Condition: Stable Critical Care Time: No Referrals: WAQAR MCCALLUM [Primary Care Provider] - Follow up/PCP as directed Instructions: Urinary Tract Infections in Adults Additional Instructions: Drink plenty fluids. Take your antibiotics as prescribed. For the next 2 days, increase your Lasix to 40 mg twice a day. On day 3 return back to Lasix 40 mg once daily. Follow-up with your surgeon and your primary care provider for further evaluation management and pain control. Prescriptions: Levofloxacin [Levaquin 500 MG Tablet] 500 mg PO DAILY #7 tablet
[2022-07-25 10:03] VITALS: PULSE 100
[2022-07-25] MEDS ORDERED: Zofran 4 MG/2 ML VIAL IV ONE (10:09)
[2022-07-25] MEDS ORDERED: Hydromorphone 1 mg/ml Injection IV ONE (10:12)
[2022-07-25] MEDS ORDERED: Sodium Chloride 0.9% 1000 ML 1,000 ML IV SCH (10:15)
[2022-07-25 10:21] LABS: Absolute Neutrophil Ct (ANC) 7.76 x10^3/uL (1.4-6.9); BASOPHIL % 0.5 % (0.0-0.4); Basophil (Absolute #) 0.05 x10^3/uL (0-0.4); Eosinophil % 1.3 % (0.00-5.0); Eosinophil (Absolute #) 0.13 x10^3/uL (0-0.5); Hematocrit 30.5 % (35-47); Hemoglobin 9.3 g/dL (12.0-16.0); IMMATURE GRAN # 0.11 x10^3u/L (0.00-0.03); IMMATURE GRAN % 1.1 % (0.00-0.4); Lymphocyte (Absolute #) 1.31 x10^3/uL (1.0-4.6); Lymphocytes % 13.4 % (24.0-44.0); Mean Cell Volume 89.7 fL (78-100); Mean Corpuscular Hemoglobin 27.4 pg (26-32); Mean Corpuscular Hgb Concent. 30.5 g/dL (32-36); Mean Platelet Volume 8.9 fL (7.5-11.0); Monocyte (Absolute #) 0.38 x10^3/uL (0.0-1.3); Monocytes % 3.9 % (0.0-12.0); Neutrophil % 79.8 % (36.0-66.0); Platelet Count 273 x10^3/uL (150-450); Red Cell Distribution Width 15.4 % (11.5-14.0); White Blood Count 9.7 x10^3/uL (4.0-10.5)
[2022-07-25 10:35] LABS: ALBUMIN 3.2 g/dL (3.5-5.0); ANION GAP 12.7 MEQ/L (5-15); BILIRUBIN,TOTAL 0.4 mg/dL (0.2-1.3); Calcium 8.1 mg/dL (8.4-10.2); Creatinine 1 1.22 mg/dL (0.52-1.04); EST GLOMERULAR FILTRATION RATE 46.9 ML/MIN; Potassium 3.3 mmol/L (3.5-5.1); Total Protein 6.9 g/dL (6.3-8.2)
[2022-07-25] MEDS ORDERED: Zofran 4 MG/2 ML VIAL ONE (10:54)
[2022-07-25] MEDS ORDERED: Sodium Chloride 0.9% 1000 ML 1,000 ML ONE (10:54)
[2022-07-25 11:10] LABS: Appearance Turbid (Clear); Bacteria Few /HPF (None Seen); Bilirubin Negative (Negative); Blood Small (Negative); Epithelial Cells Many /HPF (None Seen); Glucose, Urine Negative (Negative); Ketones Trace (Negative); Leukocyte Esterase Small (Negative); Nitrite Negative (Negative); Ph 5.5 (4.6-8.0); Protein,Urine Dip 100 (Negative); Specific Gravity 1.025 (1.005-1.030); WBC 21-50 /HPF (0-5)
[2022-07-25 11:14] LABS: ADD URINE CULTURE? YES (NO); Hyaline Casts 26-50 /LPF (0-2)
[2022-07-25] MEDS ORDERED: ROCEPHIN 1 Gm-D5w 50 ml Bag** 1 G/50 ML IVPB IV STA (11:16)
--- NOTE | 2022-07-25 11:46 | XRAY ---
Indication: Right lower quadrant pain. Nausea and weakness. Status post ostomy reversal. Multiple contiguous axial images obtained through the abdomen and pelvis without contrast. Comparison: August 15, 2021 Lung bases continues to demonstrate cardiomegaly with partially visualized pacer leads. New bibasilar pulmonary edema and small bibasilar effusions concerning for cardiac decompensation/CHF. Noncontrasted stomach and bowel loops nonobstructed. Interval reversal of previous right lower quadrant ostomy. Intact sigmoid anastomosis without free fluid/air. Stable left renal cortical calcifications, epigastric surgical clips, cholecystectomy, hysterectomy, IVC filter, and stent grafts in the IVC/common iliac/external iliac veins bilaterally. Remaining liver, pancreas, spleen, adrenal glands, kidneys, ureters, and bladder are unremarkable for noncontrast exam. There remains minimal aortoiliac calcifications without AAA. Osseous structures intact again with osteopenia, L3/L4 kyphoplasty, and right L5-S1 posterior fusion hardware. Impression: 1. Status post ostomy reversal with intact sigmoid anastomosis. 2. Again cardiomegaly with new bibasilar pulmonary edema/pleural effusions favoring cardiac decompensation/CHF. Superimposed pneumonia not completely excluded. 3. Stable postsurgical changes, IVC filter, multiple venous stent grafts, chronic bony findings, and left renal cortical calcifications.
[2022-07-25] MEDS ORDERED: ROCEPHIN 1 Gm-D5w 50 ml Bag** 1 G/50 ML IVPB IV ONE (11:48)
[2022-07-25] MEDS ORDERED: Lasix 40 MG/4 ML IV ONE (11:50)
[2022-07-25] MEDS ORDERED: Klor Con PO ONE ×2 (11:59→12:31)
[2022-07-25 12:17] VITALS: BP 93/75; O2SAT 97
[2022-07-25] MEDS ORDERED: Lasix 40 MG PO ONE (12:28)
== END 2022-07-25 12:57 | disposition home or self-care (01) ==
LOC: ED 09:45
DX: N39.0 Urinary tract infection, site not specified (principal); J90 Pleural effusion, not elsewhere classified; T81.31XA Disruption of external operation (surgical) wound, not elsewhere classified, initial encounter; R10.31 Right lower quadrant pain; R10.32 Left lower quadrant pain; Z79.891 Long term (current) use of opiate analgesic; Z79.899 Other long term (current) drug therapy; Z28.310 Unvaccinated for COVID-19; I50.9 Heart failure, unspecified; Z86.718 Personal history of other venous thrombosis and embolism
CPT/HCPCS: 36000; 36415; 74176; 80053; 81001; 82150; 83605; 85025; 87077; 87086; 87186; 87651; 96360; 96365; 96374; 99284; J0696; J1642; J2405; A9270-GY

== ENCOUNTER 2022-08-28 16:23 | Emergency (ER) | payer MEDICARE ==
[2022-08-28] MEDS ORDERED: Zofran 4 MG/2 ML VIAL IV ONE (17:13)
[2022-08-28] MEDS ORDERED: MORPHINE SULFATE 2 MG INJ IV ONE (17:13)
--- NOTE | 2022-08-28 17:20 | ERPHSYRPT ---
- History of Present Illness Time Seen by Provider: 08/28/22 17:18 Source: patient Exam Limitations: no limitations Patient Subjective Stated Complaint: C/O abdominal pain (left lower abdomen) that started on Friday or Friday of last week. Triage Nursing Assessment: Patient brought back to ER in W/C. She is alert and oriented. No SOB. MOREJON WNL. Hypoactive bowel sounds. Surgical incisions noted to abdomen; states she had a surgery in Jun. Incisions without s/s of infection. Physician History: Patient is a 67-year-old female presents to our ED with her for evaluation of lower abdominal pain. Patient states she has not urinated in 3 to 4 days. Patient states pain started approximately 1 week ago. Pain is progressively worsening. Pain now radiating up towards her right flank. Patient states she has not urinated in approximately 4 days. Patient has not had a bowel movement in over a week. Symptoms are progressive. Symptoms are moderate in intensity. Pain described as a sharp intermittent sensation. No trauma. No fever. Patient advised that she had a colostomy reversal done approximately 6 weeks ago at a hospital in [place]. Patient voices no other complaints or concerns at this time. Portions of this note were created with voice recognition technology. There may be grammatical, spelling, punctuation or sound alike errors Timing/Duration: week(s) Severity: moderate (1 week) Modifying Factors: Improves With: nothing Allergies/Adverse Reactions: baclofen Allergy (Severe, Verified 08/28/22 16:38) Difficulty Breathing pt states stopped breathing Sulfa (Sulfonamide Antibiotics) [Sulfa(Sulfonamide Antibiotics)] Allergy (Severe, Verified 08/28/22 16:38) Nausea and Vomiting adhesive Allergy (Mild, Verified 08/28/22 16:38) Blisters codeine [Codeine] Allergy (Mild, Verified 08/28/22 16:38) Nausea and Vomiting iron Adverse Reaction (Intermediate, Verified 08/28/22 16:38) Nausea oxycodone [From Percocet] Adverse Reaction (Intermediate, Verified 08/28/22 16 :38) Vomiting Home Medications: Tizanidine HCl 4 mg PO TID PRN PRN 11/10/17 [History] Furosemide [Lasix] 40 mg PO DAILY PRN PRN 03/09/18 [History] Promethazine HCl 25 mg [Phenergan 25 mg] 25 mg PO Q6H PRN PRN 01/14/19 [History] Levothyroxine Sodium [Synthroid] 25 mcg PO DAILY 04/29/19 [History] Nitroglycerin 0.4 mg SL Q5MIN PRN MR X 3 PRN 04/29/19 [History] Morphine Sulfate [Morphine Sulfate ER] 30 mg PO BID 07/30/21 [History] Famotidine 40 mg PO DAILY 03/12/22 [History] Hydralazine HCl 10 mg PO Q4HPRN PRN 05/18/22 [History] Amiodarone HCl [Pacerone] 100 mg PO DAILY 08/28/22 [History] Hx Tetanus, Diphtheria Vaccination/Date Given: Yes Hx Influenza Vaccination/Date Given: Yes Hx Pneumococcal Vaccination/Date Given: No Travel Risk - International Travel Have you traveled outside of the country in past 3 weeks: No - Coronavirus Screening Are you exhibiting any of the following symptoms?: No Close contact with a COVID-19 positive Pt in past 14-21 Days: No - Vaccine Status Have you recieved a Covid-19 vaccination: No - Review of Systems Constitutional: No Symptoms, No Fever, No Chills Eyes: No Symptoms Ears, Nose, & Throat: No Symptoms Respiratory: No Symptoms, No Cough, No Dyspnea Cardiac: No Symptoms, No Chest Pain, No Edema, No Syncope Abdominal/Gastrointestinal: No Symptoms, No Abdominal Pain, No Nausea, No Vomiting, No Diarrhea Genitourinary Symptoms: No Symptoms, No Dysuria Musculoskeletal: No Symptoms, No Back Pain, No Neck Pain Skin: No Symptoms, No Rash Neurological: No Symptoms, No Dizziness, No Focal Weakness, No Sensory Changes Psychological: No Symptoms Endocrine: No Symptoms Hematologic/Lymphatic: No Symptoms Immunological/Allergic: No Symptoms All Other Systems: Reviewed and Negative - Past Medical History Pertinent Past Medical History: Yes Neurological History: Migraines, Stroke ENT History: No Pertinent History Cardiac History: Arrhythmia, Congestive Heart Failure, Deep Vein Thrombosis, Hypertension, Myocardial Infarction ([place]) Respiratory History: Asthma Endocrine Medical History: Hypothyroidism, Thyroid Cancer Musculoskeletal History: Degenerative Disk Disease, Other GI Medical History: GERD, Hernia, Other History: Renal Disease, Other Psycho-Social History: No Pertinent History Female Reproductive Disorders: Endometriosis Other Medical History: PMHX: CARDIAC CATH, INTERNAL PACEMAKER/DEFIB, COLON RESECTION, HERNIA SX, BACK FUSION - Past Surgical History Past Surgical History: Yes Neuro Surgical History: No Pertinent History Cardiac: Cardiac Catheterization, Internal Defibrillator, Pacemaker, Other Respiratory: No Pertinent History Gastrointestinal: Appendectomy, Cholecystectomy, Colon Resection, Hernia Repair, Other Genitourinary: No Pertinent History Musculoskeletal: Orthopedic Surgery Female Surgical History: Hysterectomy Other Surgical History: Hernia repair with scar tissue removal and colostomy reversal at in [place] by Dr. Branch on 07/01/22, COLON RESECTION, BACK FUSION, THYROID REMOVED and Parotid gland removed, ankle surgery,. OCTOBER 2018 CAROTIDECTOMY AND LYMPH NODE REMOVAL ON RIGHT SIDE, "filter for blood clots 2018" - Social History Smoking Status: Never smoker Exposure to second hand smoke: No Alcohol Use: None Drug Use: none Patient Lives Alone: No Significant Family History: heart disease, cancer, diabetes - Nursing Vital Signs Nursing Vital Signs: Initial Vital Signs Temperature 99.9 F 08/28/22 16:23 Pulse Rate 100 H 08/28/22 16:23 Respiratory Rate 18 08/28/22 16:23 Blood Pressure 107/87 08/28/22 16:23 O2 Sat by Pulse Oximetry 100 08/28/22 16:23 Pain Scale Pain Intensity 3 - Physical Exam General Appearance: no apparent distress, alert Eye Exam: PERRL/EOMI, eyes nml inspection Ears, Nose, Throat Exam: normal ENT inspection, TMs normal, pharynx normal, moist mucous membranes Neck Exam: normal inspection, non-tender, supple, full range of motion Respiratory Exam: normal breath sounds, lungs clear, airway intact, No respiratory distress Cardiovascular Exam: regular rate/rhythm, normal heart sounds, normal peripheral pulses Gastrointestinal/Abdomen Exam: soft, normal bowel sounds, other (Tenderness to palpation across lower abdomen and up towards the right flank), No tenderness, No mass Back Exam: normal inspection, normal range of motion, No CVA tenderness, No vertebral tenderness Extremity Exam: normal inspection, normal range of motion, pelvis stable Neurologic Exam: alert, oriented x 3, cooperative, normal mood/affect, nml cerebellar function, nml station & gait, sensation nml, No motor deficits Skin Exam: normal color, warm, dry, No rash Lymphatic Exam: No adenopathy SpO2 Interpretation: normal SpO2: 100 O2 Delivery: Room Air - Course Nursing assessment & vital signs reviewed: Yes - CT Exams Abdomen/Pelvis CT Interpretation: Tele-radiologist Report (Compared to 07/25/2022 no mild small bowel ileus versus enteritis. Again cardiomegaly with tiny bibasilar effusions and small left renal cortical calcification. IVC filter and multiple venous stents) Ordered Tests: Active Orders 24 hr Category Date Time Status IV Insertion STAT Care 08/28/22 17:13 Active ABDOMEN AND PELVIS W/0 CONTRAS [CT] Stat Exams 08/28/22 17:14 Taken CBC W DIFF Stat Lab 08/28/22 17:55 Completed CMP Stat Lab 08/28/22 17:55 Completed LIPASE Stat Lab 08/28/22 17:55 Completed TROPONIN Q4H Lab 08/28/22 17:55 Completed TROPONIN Q4H Lab 08/28/22 21:15 Ordered TROPONIN Q4H Lab 08/29/22 01:15 Ordered UA W/RFX UR CULTURE Stat Lab 08/28/22 17:25 Completed Medication Summary Discontinued Medications Generic Name Dose Route Start Last Admin Trade Name Freq PRN Reason Stop Dose Admin Morphine Sulfate 2 mg 08/28/22 17:13 08/28/22 17:24 Morphine Sulfate 2 Mg/Ml Inj IV 08/28/22 17:14 2 mg STAT ONE Administration Morphine Sulfate Confirm 08/28/22 17:22 Morphine Sulfate 2 Mg/Ml Inj Administered 08/28/22 17:23 Dose 2 mg .ROUTE .STK-MED ONE Ondansetron HCl 4 mg 08/28/22 17:13 08/28/22 17:23 Ondansetron Hcl 4 Mg/2 Ml Vial IV 08/28/22 17:14 4 mg STAT ONE Administration Ondansetron HCl Confirm 08/28/22 17:22 Ondansetron Hcl 4 Mg/2 Ml Vial Administered 08/28/22 17:23 Dose 4 mg .ROUTE .STK-MED ONE Lab/Rad Data: Laboratory Result Diagrams 08/28/22 17:55 08/28/22 17:55 Laboratory Results 08/28/22 08/28/22 08/28/22 Range/Units 17:55 17:55 17:55 WBC 9.4 (4.0-10.5) x10^3/uL RBC 3.22 L (4.1-5.4) x10^6/uL Hgb 8.9 L (12.0-16.0) g/dL Hct 30.0 L (35-47) % MCV 93.2 (78-100) fL MCH 27.6 (26-32) pg MCHC 29.7 L (32-36) g/dL RDW 18.9 H (11.5-14.0) % Plt Count 214 (150-450) x10^3/uL MPV 9.1 (7.5-11.0) fL Gran % 68.0 H (36.0-66.0) % Immature Gran % (Auto) 0.3 (0.00-0.4) % Nucleat RBC Rel Count 0.0 (0.00-0.1) % Eos # (Auto) 0.02 (0-0.5) x10^3/uL Immature Gran # (Auto) 0.03 (0.00-0.03) x10^3u/L Absolute Lymphs (auto) 2.35 (1.0-4.6) x10^3/uL Absolute Monos (auto) 0.56 (0.0-1.3) x10^3/uL Absolute Nucleated RBC 0.00 (0.00-0.01) x10^3u/L Lymphocytes % 25.1 (24.0-44.0) % Monocytes % 6.0 (0.0-12.0) % Eosinophils % 0.2 (0.00-5.0) % Basophils % 0.4 (0.0-0.4) % Absolute Granulocytes 6.38 (1.4-6.9) x10^3/uL Basophils # 0.04 (0-0.4) x10^3/uL Sodium 137 (137-145) mmol/L Potassium 3.9 (3.5-5.1) mmol/L Chloride 106 (98-107) mmol/L Carbon Dioxide 18 L (22-30) mmol/L Anion Gap 15.8 H (5-15) MEQ/L BUN 13 (7-17) mg/dL Creatinine 1.50 H (0.52-1.04) mg/dL Estimated GFR 36.9 ML/MIN Glucose 96 (74-106) mg/dL Calcium 8.5 (8.4-10.2) mg/dL Total Bilirubin 0.60 (0.2-1.3) mg/dL AST 26 (14-36) U/L ALT 10 (0-35) U/L Alkaline Phosphatase 70 (38-126) U/L Troponin I < 0.012 (0.000-0.034) ng/mL Serum Total Protein 7.4 (6.3-8.2) g/dL Albumin 3.7 (3.5-5.0) g/dL Lipase 87 (23-300) U/L Urine Color (Yellow) Urine Appearance (Clear) Urine pH (4.6-8.0) Ur Specific [place] (1.005-1.030) Urine Protein (Negative) Urine Glucose (UA) (Negative) mg/dL Urine Ketones (Negative) Urine Blood (Negative) Urine Nitrite (Negative) Urine Bilirubin (Negative) Urine Urobilinogen (0.2) mg/dL Ur Leukocyte Esterase (Negative) U Hyaline Cast (Auto) (0-2) /LPF Urine Microscopic RBC (0-5) /HPF Urine Microscopic WBC (0-5) /HPF Ur Epithelial Cells (None Seen) /HPF Calcium Oxalate Crystal (None Seen) /HPF Urine Bacteria (None Seen) /HPF Granular Casts (None Seen) /LPF Urine Culture Reflexed (NO) 08/28/22 Range/Units 17:25 WBC (4.0-10.5) x10^3/uL RBC (4.1-5.4) x10^6/uL Hgb (12.0-16.0) g/dL Hct (35-47) % MCV (78-100) fL MCH (26-32) pg MCHC (32-36) g/dL RDW (11.5-14.0) % Plt Count (150-450) x10^3/uL MPV (7.5-11.0) fL Gran % (36.0-66.0) % Immature Gran % (Auto) (0.00-0.4) % Nucleat RBC Rel Count (0.00-0.1) % Eos # (Auto) (0-0.5) x10^3/uL Immature Gran # (Auto) (0.00-0.03) x10^3u/L Absolute Lymphs (auto) (1.0-4.6) x10^3/uL Absolute Monos (auto) (0.0-1.3) x10^3/uL Absolute Nucleated RBC (0.00-0.01) x10^3u/L Lymphocytes % (24.0-44.0) % Monocytes % (0.0-12.0) % Eosinophils % (0.00-5.0) % Basophils % (0.0-0.4) % Absolute Granulocytes (1.4-6.9) x10^3/uL Basophils # (0-0.4) x10^3/uL Sodium (137-145) mmol/L Potassium (3.5-5.1) mmol/L Chloride (98-107) mmol/L Carbon Dioxide (22-30) mmol/L Anion Gap (5-15) MEQ/L BUN (7-17) mg/dL Creatinine (0.52-1.04) mg/dL Estimated GFR ML/MIN Glucose (74-106) mg/dL Calcium (8.4-10.2) mg/dL Total Bilirubin (0.2-1.3) mg/dL AST (14-36) U/L ALT (0-35) U/L Alkaline Phosphatase (38-126) U/L Troponin I (0.000-0.034) ng/mL Serum Total Protein (6.3-8.2) g/dL Albumin (3.5-5.0) g/dL Lipase (23-300) U/L Urine Color Dark Yellow A (Yellow) Urine Appearance Clear (Clear) Urine pH 5.5 (4.6-8.0) Ur Specific [place] 1.025 (1.005-1.030) Urine Protein 30 (Negative) Urine Glucose (UA) Negative (Negative) mg/dL Urine Ketones Trace A (Negative) Urine Blood Negative (Negative) Urine Nitrite Negative (Negative) Urine Bilirubin Negative (Negative) Urine Urobilinogen 1.0 A (0.2) mg/dL Ur Leukocyte Esterase Negative (Negative) U Hyaline Cast (Auto) None Seen (0-2) /LPF Urine Microscopic RBC 0-2 (0-5) /HPF Urine Microscopic WBC 0-2 (0-5) /HPF Ur Epithelial Cells Few (None Seen) /HPF Calcium Oxalate Crystal 3-5 A (None Seen) /HPF Urine Bacteria None Seen (None Seen) /HPF Granular Casts 0-2 A (None Seen) /LPF Urine Culture Reflexed NO (NO) - Progress Progress: improved Progress Note: 67-year-old female presents to our ED with her for evaluation of abdominal pain and lack of urine output. Patient states she has not had a bowel movement in approximately 1 week. She states that she has not had urine output in about 3 to 4 days. Patient is 6 weeks status post colostomy reversal. Patient is doctors in [place]. Physical exam post surgical changes observed on abdominal wall. No signs of infection or cellulitis. Patient has mild lower abdominal pain. Humphrey catheter was placed. Urine output appears to be half cc per KG per hour. Urine output was monitored in our ED. Renal function appears to be at patient's baseline. CT scan reveals mild ileus versus mild enteritis. Laboratory work-up reveals a anemia of 8.9. Laboratory work- up otherwise negative. Troponin negative. Lipase negative. Urinalysis negative. Patient received morphine and Zofran for pain control. Pain significantly improved. Patient is comfortable. Patient tolerated p.o. Patient felt well. We discussed the possibility of hospitalization. Patient states that she prefers to go home. A prescription for an outpatient CBC was completed. Patient to have a CBC completed on the morning of 08/30/2022. Results are to be sent to Dr. Castro for review. We are interested in observing the change in hemoglobin. Vital stable. at bedside. He voices no other complaints or concerns at this time. Portions of this note were created with voice recognition technology. There may be grammatical, spelling, punctuation or sound alike errors Patient presenting problem is acute. Complexity of problems addressed as moderate. Acute new diagnosis with uncertain prognosis. No critical care time. Patient served as an independent historian although her significantly contributed to the history of present illness. Tests ordered and reviewed by Dr. Rosales. Dr. Rosales analyzed all results. Complex of data reviewed is moderate. Risk of complication and or risk morbidity/mortality of patient management is high. Patient received IV controlled medications. No hospitalization required at this time. We will discharge patient home. Patient agrees to repeat her CBC on the morning of 08/30/2022. Patient will follow-up with Dr. Castro was discussed. Plan of care established based on shared decision-making model. Time spent in discharge is approximately 15 minutes. Discharge vital stable. Patient and voiced no other complaints concerns at this time. Portions of this note were created with voice recognition technology. There may be grammatical, spelling, punctuation or sound alike errors 08/28/22 20:58 Counseled pt/family regarding: lab results, diagnosis, rad results - Departure Departure Disposition: Home Clinical Impression: small bowel ileus, Enteritis, Cardiomegaly, Bibasilar effusions, Left renal cortical calcification, Anemia Condition: Stable Critical Care Time: No Referrals: WAQAR CASTRO [Primary Care Provider] - Follow up/PCP as directed Additional Instructions: Discharge/Care Plan STELLA CRANE was seen on 08/28/22 in the Emergency Room. The patient was counseled regarding Diagnosis,Lab results, Imaging studies, need for follow up and when to return to the Emergency Room. Prescriptions given: Discharge Note I have spoken with the patient and/or caregivers. I have explained the patient's condition, diagnosis and treatment plan based on the information available to me at this time. I have answered the patient's and/or caregiver's questions and addressed any concerns. The patient and/or caregivers have as good understanding of the patient's diagnosis, condition and treatment plan as can be expected at this point. The vital signs have been stable. The patient's condition is stable and appropriate for discharge from the emergency department. The patient will pursue further outpatient evaluation with the primary care physician or other designated or consulting physician as outlined in the discharge instructions. The patient and/or caregivers are agreeable to this plan of care and follow-up instructions have been explained in detail. The patient and/or caregivers have received these instruction. The patient/and or caregivers are aware that any significant change in condition or worsening of symptoms should prompt an immediate return to this or the closest emergency department or call 911.
[2022-08-28] MEDS ORDERED: MORPHINE SULFATE 2 MG INJ ONE (17:22)
[2022-08-28] MEDS ORDERED: Zofran 4 MG/2 ML VIAL ONE (17:22)
[2022-08-28 18:02] LABS: Absolute Neutrophil Ct (ANC) 6.38 x10^3/uL (1.4-6.9); BASOPHIL % 0.4 % (0.0-0.4); Basophil (Absolute #) 0.04 x10^3/uL (0-0.4); Eosinophil % 0.2 % (0.00-5.0); Eosinophil (Absolute #) 0.02 x10^3/uL (0-0.5); Hemoglobin 8.9 g/dL (12.0-16.0); IMMATURE GRAN # 0.03 x10^3u/L (0.00-0.03); IMMATURE GRAN % 0.3 % (0.00-0.4); Lymphocyte (Absolute #) 2.35 x10^3/uL (1.0-4.6); Lymphocytes % 25.1 % (24.0-44.0); Mean Cell Volume 93.2 fL (78-100); Mean Corpuscular Hemoglobin 27.6 pg (26-32); Mean Corpuscular Hgb Concent. 29.7 g/dL (32-36); Mean Platelet Volume 9.1 fL (7.5-11.0); Monocyte (Absolute #) 0.56 x10^3/uL (0.0-1.3); Platelet Count 214 x10^3/uL (150-450); Red Blood Count 3.22 x10^6/uL (4.1-5.4); Red Cell Distribution Width 18.9 % (11.5-14.0); White Blood Count 9.4 x10^3/uL (4.0-10.5)
[2022-08-28 18:22] LABS: ALBUMIN 3.7 g/dL (3.5-5.0); ANION GAP 15.8 MEQ/L (5-15); BILIRUBIN,TOTAL 0.6 mg/dL (0.2-1.3); Calcium 8.5 mg/dL (8.4-10.2); Creatinine 1 1.5 mg/dL (0.52-1.04); EST GLOMERULAR FILTRATION RATE 36.9 ML/MIN; Potassium 3.9 mmol/L (3.5-5.1); Total Protein 7.4 g/dL (6.3-8.2)
[2022-08-28 19:16] LABS: Appearance Clear (Clear); Bacteria None Seen /HPF (None Seen); Bilirubin Negative (Negative); Blood Negative (Negative); Epithelial Cells Few /HPF (None Seen); Glucose, Urine Negative (Negative); Ketones Trace (Negative); Leukocyte Esterase Negative (Negative); Nitrite Negative (Negative); Ph 5.5 (4.6-8.0); Protein,Urine Dip 30 (Negative); Specific Gravity 1.025 (1.005-1.030)
[2022-08-28 19:17] LABS: ADD URINE CULTURE? NO (NO); Granular Casts 0-2 /LPF (None Seen); Hyaline Casts None Seen /LPF (0-2); RBC 0-2 /HPF (0-5); WBC 0-2 /HPF (0-5)
[2022-08-28 20:58] VITALS: O2SAT 100
[2022-08-28 20:59] VITALS: BP 93/65; PULSE 99
--- NOTE | 2022-08-29 08:38 | XRAY ---
Indication: Left lower abdomen pain. Multiple contiguous axial images obtained through the abdomen and pelvis without contrast. Comparison: July 25, 2022 Lung bases again demonstrates cardiomegaly with less tiny bibasilar effusions. There remains bibasilar subsegmental atelectasis/scarring. Noncontrasted stomach and bowel loops appear nonobstructed. Several small bowel loops are mildly fluid distended with now fluid leveling, ileus versus enteritis. Intact sigmoid anastomosis. Empty urinary bladder demonstrates new Humphrey balloon catheter in situ. Stable left renal cortical calcifications, epigastric surgical clips, cholecystectomy, hysterectomy, IVC filter, and stent grafts in the IVC/common iliac/external iliac veins bilaterally. No free fluid/air. Remaining liver, pancreas, spleen, adrenal glands, kidneys, and ureters are unremarkable for noncontrast exam. Again minimal aortoiliac calcifications without AAA. Osseous structures intact again with osteopenia, L3/L4 kyphoplasty, and right L5-S1 posterior fusion hardware. Impression: 1. New mild small bowel ileus versus enteritis. 2. Again cardiomegaly with tiny bibasilar effusions. Rule out cardiac decompensation/CHF versus fluid overload. 3. Stable postsurgical changes, IVC filter, multiple venous stent grafts, chronic bony findings, left renal cortical calcifications, and arteriosclerotic disease.
== END 2022-08-28 21:07 | disposition home or self-care (01) ==
LOC: ED 16:23
DX: K56.7 Ileus, unspecified (principal); K52.9 Noninfective gastroenteritis and colitis, unspecified; I11.0 Hypertensive heart disease with heart failure; I50.9 Heart failure, unspecified; I31.39 Other pericardial effusion (noninflammatory); N28.89 Other specified disorders of kidney and ureter; D64.9 Anemia, unspecified; R10.30 Lower abdominal pain, unspecified; Z79.891 Long term (current) use of opiate analgesic; Z79.899 Other long term (current) drug therapy; Z28.310 Unvaccinated for COVID-19
CPT/HCPCS: 36000; 36415; 51702; 74176; 80053; 81001; 83690; 84484; 85025; 96374; 96375; 99284; J1642; J2270; J2405

== ENCOUNTER 2022-10-04 11:23 | Emergency (ER) | payer MEDICARE ==
[2022-10-04] MEDS ORDERED: BABY ASPIRIN 81 MG CHEW PO ONE (11:30)
--- NOTE | 2022-10-04 11:31 | ERPHSYRPT ---
- History of Present Illness Time Seen by Provider: 10/04/22 11:30 Historian: patient, EMS Exam Limitations: no limitations Physician History: This is a 67-year-old obese white female who frequents this emergency department for primarily chest pain issues. They are chronic and recurrent. Patient's primary care physician is Dr. Mccallum. Her animal herder is Dr. Duarte. Patient was brought to the emergency department by the EMS. The paramedics provided her with a new single nitroglycerin and 325 of chewable aspirin in route to our facility today. Patient complains of chest pain that was substernal and radiated to the right anterior chest. It was intermittent last night and then became more constant this morning. Patient chronically presents to this emergency department with a systolic blood pressure that is in the 80s to 90s. Her heart rate today is 100. Patient has a history of arrhythmia and her twelve-lead EKG shows an atrial fibrillation that is rate controlled. Patient's room air oxygenation level is 100%. Patient has known coronary artery disease and has an internal pacemaker/defibrillator in place. She has a history of CHF, DVT, migraine headaches, CVA in the past, hypertension, hypothyroidism, gastroesophageal reflux disease and peripheral vascular disease having had a carotid endarterectomy performed in the past. Today, the patient does not have any abdominal pain. She is very nauseated. Her systolic blood pressure being so low at this moment in time, I cannot provide her any narcotic pain control but I did offer her Tylenol which she declined at this time. She states her primary issue is the chest pain but also nausea. Timing/Duration: yesterday Quality: aching Location: substernal (With radiation to the right anterior chest) Severity of Pain-Max: mild (To moderate) Severity of Pain-Current: mild (To moderate) Associated Symptoms: nausea, No shortness of breath Prior Chest Pain/Cardiac Workup: cardiac cath, heart attack, recently seen/tr eated Nitro Today/Relief: 0.4 mg x 1, provided by EMS Aspirin Treatment Today: 81 mg x 4, provided by EMS Allergies/Adverse Reactions: baclofen Allergy (Severe, Verified 08/28/22 16:38) Difficulty Breathing pt states stopped breathing Sulfa (Sulfonamide Antibiotics) [Sulfa(Sulfonamide Antibiotics)] Allergy (Severe, Verified 08/28/22 16:38) Nausea and Vomiting adhesive Allergy (Mild, Verified 08/28/22 16:38) Blisters codeine [Codeine] Allergy (Mild, Verified 08/28/22 16:38) Nausea and Vomiting iron Adverse Reaction (Intermediate, Verified 08/28/22 16:38) Nausea oxycodone [From Percocet] Adverse Reaction (Intermediate, Verified 08/28/22 16:38) Vomiting Home Medications: Tizanidine HCl 4 mg PO TID PRN PRN 11/10/17 [History] Furosemide [Lasix] 40 mg PO DAILY PRN PRN 03/09/18 [History] Promethazine HCl 25 mg [Phenergan 25 mg] 25 mg PO Q6H PRN PRN 01/14/19 [History] Levothyroxine Sodium [Synthroid] 25 mcg PO DAILY 04/29/19 [History] Nitroglycerin 0.4 mg SL Q5MIN PRN MR X 3 PRN 04/29/19 [History] Morphine Sulfate [Morphine Sulfate ER] 30 mg PO BID 07/30/21 [History] Famotidine 40 mg PO DAILY 03/12/22 [History] Amiodarone HCl [Pacerone] 100 mg PO DAILY 08/28/22 [History] Hx Tetanus, Diphtheria Vaccination/Date Given: Yes Hx Influenza Vaccination/Date Given: Yes Hx Pneumococcal Vaccination/Date Given: No Travel Risk - International Travel Have you traveled outside of the country in past 3 weeks: No - Coronavirus Screening Are you exhibiting any of the following symptoms?: No Close contact with a COVID-19 positive Pt in past 14-21 Days: No - Vaccine Status Have you recieved a Covid-19 vaccination: No - Review of Systems Constitutional: No Symptoms Eyes: No Symptoms Ears, Nose, & Throat: No Symptoms Respiratory: No Symptoms Cardiac: Chest Pain Abdominal/Gastrointestinal: Nausea, No Abdominal Pain, No Vomiting, No Diarrhea, No Constipation, No Appetite Changes Genitourinary Symptoms: No Symptoms Musculoskeletal: No Symptoms Skin: No Symptoms Neurological: No Symptoms Psychological: No Symptoms Endocrine: No Symptoms Hematologic/Lymphatic: No Symptoms Immunological/Allergic: No Symptoms All Other Systems: Reviewed and Negative - Past Medical History Pertinent Past Medical History: Yes Neurological History: Migraines, Stroke ENT History: No Pertinent History Cardiac History: Arrhythmia, Congestive Heart Failure, Deep Vein Thrombosis, Hypertension, Myocardial Infarction (ID) Respiratory History: Asthma Endocrine Medical History: Hypothyroidism, Thyroid Cancer Musculoskeletal History: Degenerative Disk Disease, Other GI Medical History: GERD, Hernia, Other History: Renal Disease, Other Psycho-Social History: No Pertinent History Female Reproductive Disorders: Endometriosis Other Medical History: PMHX: CARDIAC CATH, INTERNAL PACEMAKER/DEFIB, COLON RESECTION, HERNIA SX, BACK FUSION - Past Surgical History Past Surgical History: Yes Neuro Surgical History: No Pertinent History Cardiac: Cardiac Catheterization, Internal Defibrillator, Pacemaker, Other Respiratory: No Pertinent History Gastrointestinal: Appendectomy, Cholecystectomy, Colon Resection, Hernia Repair, Other Genitourinary: No Pertinent History Musculoskeletal: Orthopedic Surgery Female Surgical History: Hysterectomy Other Surgical History: Hernia repair with scar tissue removal and colostomy reversal at in [place] by Dr. Branch on 07/01/22, COLON RESECTION, BACK FUSION, THYROID REMOVED and Parotid gland removed, ankle surgery,. OCTOBER 2018 CAROTIDECTOMY AND LYMPH NODE REMOVAL ON RIGHT SIDE, "filter for blood clots 2018" - Social History Smoking Status: Never smoker Exposure to second hand smoke: No Alcohol Use: None Drug Use: none Patient Lives Alone: No Significant Family History: heart disease, cancer, diabetes - Nursing Vital Signs Nursing Vital Signs: Initial Vital Signs Temperature 97.7 F 10/04/22 11:24 Pulse Rate 100 H 10/04/22 11:24 Respiratory Rate 22 10/04/22 11:24 Blood Pressure 85/44 10/04/22 11:24 O2 Sat by Pulse Oximetry 95 10/04/22 11:24 Pain Scale Pain Intensity 5 - Physical Exam General Appearance: no apparent distress, alert, anxiety Eye Exam: PERRL/EOMI, eyes nml inspection Ears, Nose, Throat Exam: normal ENT inspection, moist mucous membranes Neck Exam: normal inspection, non-tender, supple, full range of motion Respiratory Exam: normal breath sounds, chest tenderness, lungs clear, airway intact, No respiratory distress Cardiovascular Exam: regular rate/rhythm, normal heart sounds, normal peripheral pulses Gastrointestinal/Abdomen Exam: soft, normal bowel sounds, No tenderness Pelvic Exam: not done Rectal Exam: not done Back Exam: normal inspection, normal range of motion, vertebral tenderness, No CVA tenderness Extremity Exam: normal inspection, normal range of motion, pelvis stable Neurologic Exam: alert, oriented x 3, cooperative, bottle packing machine cleaner II-XII nml as tested, normal mood/affect, nml cerebellar function, nml station & gait, sensation nml Skin Exam: normal color, warm, dry Lymphatic Exam: No adenopathy SpO2 Interpretation: normal O2 Delivery: Room Air - Course Nursing assessment & vital signs reviewed: Yes EKG Interpreted by Me: RATE (100), NORMAL QRS, Other (A-fib/flutter with ventricular paced rhythm. Biventricular paced rhythm. No acute ischemic changes on today's twelve-lead EKG. No significant change from twelve-lead EKG dated 06/21/2022.) Ordered Tests: Active Orders 24 hr Category Date Time Status Editor School Photograph STAT Care 10/04/22 11:31 Active EKG-ER Only STAT Care 10/04/22 11:30 Active IV Insertion STAT Care 10/04/22 11:30 Active Pulse Oximetry (ED) STAT Care 10/04/22 11:30 Active CHEST 1 VIEW (PORTABLE) Stat Exams 10/04/22 11:31 Completed BNPII [NT PRO BNPII] Stat Lab 10/04/22 Completed CBC W DIFF Stat Lab 10/04/22 11:40 Completed CMP Stat Lab 10/04/22 11:40 Completed PROTIME WITH INR Stat Lab 10/04/22 11:40 Completed TROPONIN Q4H Lab 10/04/22 11:40 Completed TROPONIN Q4H Lab 10/04/22 14:40 Completed TROPONIN Q4H Lab 10/04/22 19:45 Ordered Medication Summary Generic Name Dose Route Start Last Admin Trade Name Freq PRN Reason Stop Dose Admin Sodium Chloride 500 mls @ 50 mls/hr 10/04/22 13:00 10/04/22 13:03 Sodium Chloride 0.9% 500 Ml IV 11/03/22 12:59 50 mls/hr .Q10H JUSTIN Administration Discontinued Medications Generic Name Dose Route Start Last Admin Trade Name Freq PRN Reason Stop Dose Admin Aspirin 324 mg 10/04/22 11:30 10/04/22 11:39 Aspirin 81 Mg Tab.Chew PO 10/04/22 11:31 Not Given STAT ONE Sodium Chloride Confirm 10/04/22 13:00 Sodium Chloride 0.9% 1000 Ml Administered 10/04/22 13:01 Dose 1,000 mls @ ud .ROUTE .STK-MED ONE Morphine Sulfate 2 mg 10/04/22 13:46 10/04/22 13:53 Morphine Sulfate 2 Mg/Ml Inj IV 10/04/22 13:47 2 mg STAT ONE Administration Morphine Sulfate Confirm 10/04/22 13:51 Morphine Sulfate 2 Mg/Ml Inj Administered 10/04/22 13:52 Dose 2 mg .ROUTE .STK-MED ONE Morphine Sulfate 2 mg 10/04/22 14:19 10/04/22 15:09 Morphine Sulfate 2 Mg/Ml Inj IV 10/04/22 14:20 2 mg STAT ONE Administration Morphine Sulfate Confirm 10/04/22 15:08 Morphine Sulfate 2 Mg/Ml Inj Administered 10/04/22 15:09 Dose 2 mg .ROUTE .STK-MED ONE Ondansetron HCl 4 mg 10/04/22 11:59 10/04/22 12:07 Ondansetron Hcl 4 Mg/2 Ml Vial IV 10/04/22 12:00 4 mg STAT ONE Administration Ondansetron HCl Confirm 10/04/22 12:05 Ondansetron Hcl 4 Mg/2 Ml Vial Administered 10/04/22 12:06 Dose 4 mg .ROUTE .STK-MED ONE Potassium Chloride 20 meq 10/04/22 13:11 10/04/22 13:19 Potassium Chloride Tab 10 Meq Tab PO 10/04/22 13:12 20 meq STAT ONE Administration Potassium Chloride Confirm 10/04/22 13:19 Potassium Chloride Tab 10 Meq Tab Administered 10/04/22 13:20 Dose 20 meq PO .STK-MED ONE Lab/Rad Data: Laboratory Result Diagrams 10/04/22 11:40 10/04/22 11:40 Laboratory Results 10/04/22 10/04/22 10/04/22 Range/Units Unknown 14:40 11:40 WBC (4.0-10.5) x10^3/uL RBC (4.1-5.4) x10^6/uL Hgb (12.0-16.0) g/dL Hct (35-47) % MCV (78-100) fL MCH (26-32) pg MCHC (32-36) g/dL RDW (11.5-14.0) % Plt Count (150-450) x10^3/uL MPV (7.5-11.0) fL Gran % (36.0-66.0) % Immature Gran % (Auto) (0.00-0.4) % Nucleat RBC Rel Count (0.00-0.1) % Eos # (Auto) (0-0.5) x10^3/uL Immature Gran # (Auto) (0.00-0.03) x10^3u/L Absolute Lymphs (auto) (1.0-4.6) x10^3/uL Absolute Monos (auto) (0.0-1.3) x10^3/uL Absolute Nucleated RBC (0.00-0.01) x10^3u/L Lymphocytes % (24.0-44.0) % Monocytes % (0.0-12.0) % Eosinophils % (0.00-5.0) % Basophils % (0.0-0.4) % Absolute Granulocytes (1.4-6.9) x10^3/uL Basophils # (0-0.4) x10^3/uL PT (9.4-12.5) SECONDS INR (0.8-3.0) Sodium (137-145) mmol/L Potassium (3.5-5.1) mmol/L Chloride (98-107) mmol/L Carbon Dioxide (22-30) mmol/L Anion Gap (5-15) MEQ/L BUN (7-17) mg/dL Creatinine (0.52-1.04) mg/dL Estimated GFR ML/MIN Glucose (74-106) mg/dL Calcium (8.4-10.2) mg/dL Total Bilirubin (0.2-1.3) mg/dL AST (14-36) U/L ALT (0-35) U/L Alkaline Phosphatase (38-126) U/L Troponin I < 0.012 < 0.012 (0.000-0.034) ng/mL NT-Pro-B Natriuret Pep 4030 (<300) pg/mL Serum Total Protein (6.3-8.2) g/dL Albumin (3.5-5.0) g/dL 10/04/22 10/04/22 10/04/22 Range/Units 11:40 11:40 11:40 WBC 8.0 (4.0-10.5) x10^3/uL RBC 4.28 (4.1-5.4) x10^6/uL Hgb 11.9 L (12.0-16.0) g/dL Hct 37.8 (35-47) % MCV 88.3 (78-100) fL MCH 27.8 (26-32) pg MCHC 31.5 L (32-36) g/dL RDW 17.2 H (11.5-14.0) % Plt Count 279 (150-450) x10^3/uL MPV 8.5 (7.5-11.0) fL Gran % 52.7 (36.0-66.0) % Immature Gran % (Auto) 0.3 (0.00-0.4) % Nucleat RBC Rel Count 0.0 (0.00-0.1) % Eos # (Auto) 0.03 (0-0.5) x10^3/uL Immature Gran # (Auto) 0.02 (0.00-0.03) x10^3u/L Absolute Lymphs (auto) 3.24 (1.0-4.6) x10^3/uL Absolute Monos (auto) 0.45 (0.0-1.3) x10^3/uL Absolute Nucleated RBC 0.00 (0.00-0.01) x10^3u/L Lymphocytes % 40.6 (24.0-44.0) % Monocytes % 5.6 (0.0-12.0) % Eosinophils % 0.4 (0.00-5.0) % Basophils % 0.4 (0.0-0.4) % Absolute Granulocytes 4.21 (1.4-6.9) x10^3/uL Basophils # 0.03 (0-0.4) x10^3/uL PT 10.5 (9.4-12.5) SECONDS INR 0.96 (0.8-3.0) Sodium 136 L (137-145) mmol/L Potassium 3.3 L (3.5-5.1) mmol/L Chloride 101 (98-107) mmol/L Carbon Dioxide 23 (22-30) mmol/L Anion Gap 15.1 H (5-15) MEQ/L BUN 17 (7-17) mg/dL Creatinine 1.31 H (0.52-1.04) mg/dL Estimated GFR 43.2 ML/MIN Glucose 125 H (74-106) mg/dL Calcium 9.0 (8.4-10.2) mg/dL Total Bilirubin 0.50 (0.2-1.3) mg/dL AST 35 (14-36) U/L ALT 15 (0-35) U/L Alkaline Phosphatase 88 (38-126) U/L Troponin I (0.000-0.034) ng/mL NT-Pro-B Natriuret Pep (<300) pg/mL Serum Total Protein 8.1 (6.3-8.2) g/dL Albumin 3.9 (3.5-5.0) g/dL - Progress Progress: improved, re-examined Air Movement: good Progress Note: 10/04/22 12:20 Chest x-ray was read by the radiologist. I reviewed the impression. This study is a nonacute study with chronic features. There is no evidence of any acute cardiopulmonary processes. 10/04/22 15:06 This patient's medical issue is 1 of moderate complexity. The level of complexity and the work-up performed is based on review of the patient's past medical history, review of the patient's medication list, review of the patient's drug allergy list, history of present illness and findings on physical examination. Work-up includes twelve-lead EKG, chest x-ray, CBC, CMP. I reviewed the results and the initial twelve-lead EKG and initial troponin level are not abnormal. Troponin is in the normal range. We will keep the patient here for 3-hour twelve-lead EKG and a 3-hour troponin level. If these studies are normal for her, we will discharge her to home with instruction to follow-up with a animal herder for further evaluation management. 10/04/22 15:27 3-hour troponin is within normal limits. 3-hour twelve-lead EKG shows no change from the initial twelve-lead EKG that was performed today. The heart rate is 100 bpm. The twelve-lead EKG shows A-fib/flutter with ventricular paced rhythm. There is no evidence of any acute ischemic changes. Patient is to call her animal herder today to make arranges for follow-up appointment in the next 3 days. Counseled pt/family regarding: lab results, diagnosis, need for follow-up, rad results Medical Desision Making - Independent Historian Additional History obtained from: Automotive Starter Repairer/EMT - External Record(s) Reviewed Records reviewed as a part of evaluation & management: Inpatient - Diagnostic Testing Diagnostic test were ordered, analyzed, and reviewed by me: Yes Radiological Interpretation: Reviewed by me, Teleradiologist Report - Risk of complications Low Risk: Low risk of morbidity from additional dx testing or treatment - Departure Departure Disposition: Home Clinical Impression: Chronic chest pain Condition: Stable Critical Care Time: No Referrals: WAQAR MCCALLUM [Primary Care Provider] - Follow up/PCP as directed Additional Instructions: Take your medication as prescribed. Call your animal herder today to make arrangements for follow-up appointment in the next 3 days.
[2022-10-04 11:43] LABS: Absolute Neutrophil Ct (ANC) 4.21 x10^3/uL (1.4-6.9); BASOPHIL % 0.4 % (0.0-0.4); Basophil (Absolute #) 0.03 x10^3/uL (0-0.4); Eosinophil % 0.4 % (0.00-5.0); Eosinophil (Absolute #) 0.03 x10^3/uL (0-0.5); Hematocrit 37.8 % (35-47); Hemoglobin 11.9 g/dL (12.0-16.0); IMMATURE GRAN # 0.02 x10^3u/L (0.00-0.03); IMMATURE GRAN % 0.3 % (0.00-0.4); Lymphocyte (Absolute #) 3.24 x10^3/uL (1.0-4.6); Lymphocytes % 40.6 % (24.0-44.0); Mean Cell Volume 88.3 fL (78-100); Mean Corpuscular Hemoglobin 27.8 pg (26-32); Mean Corpuscular Hgb Concent. 31.5 g/dL (32-36); Mean Platelet Volume 8.5 fL (7.5-11.0); Monocyte (Absolute #) 0.45 x10^3/uL (0.0-1.3); Monocytes % 5.6 % (0.0-12.0); Neutrophil % 52.7 % (36.0-66.0); Platelet Count 279 x10^3/uL (150-450); Red Blood Count 4.28 x10^6/uL (4.1-5.4); Red Cell Distribution Width 17.2 % (11.5-14.0)
[2022-10-04 11:57] LABS: ALBUMIN 3.9 g/dL (3.5-5.0); ANION GAP 15.1 MEQ/L (5-15); BILIRUBIN,TOTAL 0.5 mg/dL (0.2-1.3); Creatinine 1 1.31 mg/dL (0.52-1.04); EST GLOMERULAR FILTRATION RATE 43.2 ML/MIN; INR 0.96 (0.8-3.0); PROTIME 10.5 SECONDS (9.4-12.5); Potassium 3.3 mmol/L (3.5-5.1); Total Protein 8.1 g/dL (6.3-8.2)
[2022-10-04] MEDS ORDERED: Zofran 4 MG/2 ML VIAL IV ONE (11:59)
[2022-10-04] MEDS ORDERED: Zofran 4 MG/2 ML VIAL ONE (12:05)
--- NOTE | 2022-10-04 12:12 | XRAY ---
Indication: Chest pain. Comparison: June 21, 2022 Portable chest less inflated and remains clear. Heart remains borderline enlarged again with left AICD and left Port-A-Cath. Bony thorax intact again with osteopenia. Impression: Continued nonacute chest with chronic features.
[2022-10-04] MEDS ORDERED: Sodium Chloride 0.9% 1000 ML 0 ML ONE (13:00)
[2022-10-04] MEDS ORDERED: Sodium Chloride 0.9% 500 ML 500 ML IV SCH (13:00)
[2022-10-04] MEDS ORDERED: Sodium Chloride 0.9% 500 ML 500 ML IV ONE (13:03)
[2022-10-04 13:09] VITALS: PULSE 100
[2022-10-04] MEDS ORDERED: Klor Con PO ONE ×2 (13:11→13:19)
[2022-10-04] MEDS ORDERED: MORPHINE SULFATE 2 MG INJ IV ONE ×2 (13:46→14:19)
[2022-10-04] MEDS ORDERED: MORPHINE SULFATE 2 MG INJ ONE ×2 (13:51→15:08)
[2022-10-04 15:33] VITALS: O2SAT 92
[2022-10-04 16:10] VITALS: BP 105/75
== END 2022-10-04 16:11 | disposition home or self-care (01) ==
LOC: ED 11:23
DX: G89.29 Other chronic pain (principal); R07.9 Chest pain, unspecified; R11.0 Nausea; I11.0 Hypertensive heart disease with heart failure; I50.9 Heart failure, unspecified; Z79.899 Other long term (current) drug therapy; Z28.310 Unvaccinated for COVID-19; Z86.718 Personal history of other venous thrombosis and embolism
CPT/HCPCS: 36415; 71045; 80053; 83880; 84484; 85025; 85610; 93005; 93041; 94760; 96360; 96361; 96374; 96375; 96376; 99285; J2270; J2405; A9270-GY

== ENCOUNTER 2022-10-27 06:30 | Emergency (ER) | payer MEDICARE ==
[2022-10-27] MEDS ORDERED: Sodium Chloride 0.9% 1000 ML 1,000 ML IV SCH (06:45)
[2022-10-27] MEDS ORDERED: Sodium Chloride 0.9% 1000 ML 1,000 ML ONE (07:01)
[2022-10-27 07:09] LABS: Absolute Neutrophil Ct (ANC) 5.79 x10^3/uL (1.4-6.9); BASOPHIL % 0.4 % (0.0-0.4); Basophil (Absolute #) 0.04 x10^3/uL (0-0.4); Eosinophil % 0.6 % (0.00-5.0); Eosinophil (Absolute #) 0.06 x10^3/uL (0-0.5); Hematocrit 30.8 % (35-47); Hemoglobin 9.5 g/dL (12.0-16.0); IMMATURE GRAN # 0.04 x10^3u/L (0.00-0.03); IMMATURE GRAN % 0.4 % (0.00-0.4); Lymphocyte (Absolute #) 3.01 x10^3/uL (1.0-4.6); Lymphocytes % 31.4 % (24.0-44.0); Mean Corpuscular Hemoglobin 27.5 pg (26-32); Mean Corpuscular Hgb Concent. 30.8 g/dL (32-36); Mean Platelet Volume 8.9 fL (7.5-11.0); Monocyte (Absolute #) 0.65 x10^3/uL (0.0-1.3); Monocytes % 6.8 % (0.0-12.0); Neutrophil % 60.4 % (36.0-66.0); Platelet Count 264 x10^3/uL (150-450); Red Blood Count 3.46 x10^6/uL (4.1-5.4); Red Cell Distribution Width 16.4 % (11.5-14.0); White Blood Count 9.6 x10^3/uL (4.0-10.5)
[2022-10-27 07:21] LABS: ALBUMIN 3.3 g/dL (3.5-5.0); ANION GAP 14.7 MEQ/L (5-15); BILIRUBIN,TOTAL 0.5 mg/dL (0.2-1.3); Calcium 8.3 mg/dL (8.4-10.2); Creatinine 1 1.19 mg/dL (0.52-1.04); EST GLOMERULAR FILTRATION RATE 48.2 ML/MIN; INR 1.15 (0.8-3.0); PROTIME 12.4 SECONDS (9.4-12.5); Potassium 3.2 mmol/L (3.5-5.1)
--- NOTE | 2022-10-27 07:33 | XRAY ---
CLINICAL HISTORY:syncope/weakness COMPARISON:CT dated 06/21/2022. TECHNIQUES:Axial sections of CT head examination were obtained without intravenous contrast administration. Reconstructed coronal and sagittal images were also acquired; FINDINGS: No definite evidence of acute infarction. Age-related involutional changes are seen with severe small vessel ischemic disease. Chronic/old infarcts with encephalomalacia in the bilateral parietal, right occipital, and left frontal lobe, appear grossly unchanged from prior CT examination. No acute intracranial hemorrhage. No mass effect, midline shift, or hydrocephalus. No tonsillar herniation. Pineal region calcification was seen. No definite calvarial abnormality is seen. IMPRESSION: 1-No definite evidence of acute infarction. If clinically indicated MRI would be helpful to exclude early infarction. 2-No acute intracranial hemorrhage. 3-Chronic/old infarcts with encephalomalacia in the bilateral parietal, right occipital, and left frontal lobe, appear grossly unchanged from prior CT examination. 4-Pya-fdrhmmk involutional changes with severe small vessel ischemic disease. 5-Stable findings in comparison to prior CT examination. [facility] ER was called at [phone] at 7:26 AM EST, 10/27/2022 and results were verbally communicated to the bowling or skating front desk clerk. Electronically Signed by: Sonja Nicholas MD. (10/27/2022 06:29:39 FISCAL SERVICES MANAGER)
--- NOTE | 2022-10-27 07:37 | ERPHSYRPT ---
- History of Present Illness Source: patient, EMS Patient Subjective Stated Complaint: per ems, pt collapsed to floor at home and family states pt was lethargic. when pt awoke, had some confusion and remains sleepy Triage Nursing Assessment: pt arrive per ambulance and transfers to [facility] with assist of 3. pt drowsy, slow to answer questions upon arrival. pt oriented to person and place. pupils equal and reactive. pt moves all extremities well. Timing/Duration: hour(s) (1), sudden, improved Severity: moderate Baseline/Normal Cognition: alert oriented x 3 Current Cognition: alert oriented x 3 Associated Symptoms: fatigue, slurred speech Hx Tetanus, Diphtheria Vaccination/Date Given: Yes Hx Influenza Vaccination/Date Given: Yes Hx Pneumococcal Vaccination/Date Given: Yes <ALBA CHRISTIANSON - Last Filed: 10/27/22 07:24> <SKYE ALVARENGA - Last Filed: 10/27/22 09:46> - History of Present Illness Time Seen by Provider: 10/27/22 06:39 Physician History: 67 years old female with multiple medical problems including atrial fibrillation AICD implant, on Eliquis, congestive heart failure, CVA, hypothyroidism, GERD presented in the ER via EMS with chief complaint of syncope/collapse with some weakness on the left side. Patient reports she was walking back from the bathroom, was trying to get on the bed, fell and passed out for couple of minutes. She woke up and was having some slurring of speech and EMS noticed some left-sided weakness in the upper and lower extremities which is improved on presentation. Patient is drowsy/sleepy but answering questions appropriately and moving all 4 extremities. Still complaining of dull aching left-sided chest pressure. No cough or difficulty breathing reported. Not a good historian and history is limited. She did have a skin tear of left forearm but no limitation range of motion at elbow/wrist. (ALBA CHRISTIANSON) Allergies/Adverse Reactions: baclofen Allergy (Severe, Verified 10/27/22 07:21) Difficulty Breathing pt states stopped breathing Sulfa (Sulfonamide Antibiotics) [Sulfa(Sulfonamide Antibiotics)] Allergy (Severe, Verified 10/27/22 07:21) Nausea and Vomiting adhesive Allergy (Mild, Verified 10/27/22 07:21) Blisters codeine [Codeine] Allergy (Mild, Verified 10/27/22 07:21) Nausea and Vomiting iron Adverse Reaction (Intermediate, Verified 10/27/22 07:21) Nausea oxycodone [From Percocet] Adverse Reaction (Intermediate, Verified 10/27/22 07:21) Vomiting Home Medications: Tizanidine HCl 4 mg PO TID PRN PRN 11/10/17 [History] Furosemide [Lasix] 40 mg PO DAILY PRN PRN 03/09/18 [History] Promethazine HCl 25 mg [Phenergan 25 mg] 25 mg PO Q6H PRN PRN 01/14/19 [History] Levothyroxine Sodium [Synthroid] 25 mcg PO DAILY 04/29/19 [History] Nitroglycerin 0.4 mg SL Q5MIN PRN MR X 3 PRN 04/29/19 [History] Morphine Sulfate [Morphine Sulfate ER] 30 mg PO BID 07/30/21 [History] Famotidine 40 mg PO DAILY 03/12/22 [History] Amiodarone HCl [Pacerone] 100 mg PO DAILY 08/28/22 [History] Travel Risk - International Travel Have you traveled outside of the country in past 3 weeks: No - Coronavirus Screening Are you exhibiting any of the following symptoms?: No Close contact with a COVID-19 positive Pt in past 14-21 Days: No - Vaccine Status Have you recieved a Covid-19 vaccination: No <ALBA CHRISTIANSON - Last Filed: 10/27/22 07:24> - Review of Systems Constitutional: Fatigue, Weakness Eyes: No Symptoms Ears, Nose, & Throat: No Symptoms Respiratory: No Symptoms Cardiac: Chest Pain Abdominal/Gastrointestinal: No Symptoms Genitourinary Symptoms: No Symptoms Musculoskeletal: Injury <ALBA CHRISTIANSON - Last Filed: 10/27/22 07:24> - Past Medical History Pertinent Past Medical History: Yes Neurological History: Migraines, Stroke ENT History: No Pertinent History Cardiac History: Arrhythmia, Congestive Heart Failure, Deep Vein Thrombosis, Hypertension, Myocardial Infarction ([place]) Respiratory History: Asthma Endocrine Medical History: Hypothyroidism, Thyroid Cancer Musculoskeletal History: Degenerative Disk Disease, Other GI Medical History: GERD, Hernia, Other History: Renal Disease, Other Psycho-Social History: No Pertinent History Female Reproductive Disorders: Endometriosis Other Medical History: PMHX: CARDIAC CATH, INTERNAL PACEMAKER/DEFIB, COLON RESECTION, HERNIA SX, BACK FUSION - Past Surgical History Past Surgical History: Yes Neuro Surgical History: No Pertinent History Cardiac: Cardiac Catheterization, Internal Defibrillator, Pacemaker, Other Respiratory: No Pertinent History Gastrointestinal: Appendectomy, Cholecystectomy, Colon Resection, Hernia Repair, Other Genitourinary: No Pertinent History Musculoskeletal: Orthopedic Surgery Female Surgical History: Hysterectomy Other Surgical History: Hernia repair with scar tissue removal and colostomy re versal at in [place] by Dr. Branch on 07/01/22, COLON RESECTION, BACK FUSION, THYROID REMOVED and Parotid gland removed, ankle surgery,. OCTOBER 2018 CAROTIDECTOMY AND LYMPH NODE REMOVAL ON RIGHT SIDE, "filter for blood clots 2018" - Social History Smoking Status: Never smoker Exposure to second hand smoke: No Alcohol Use: None Drug Use: none Patient Lives Alone: No (Kaveh ) Significant Family History: heart disease, cancer, diabetes <ALBA CHRISTIANSON - Last Filed: 10/27/22 07:24> - Jaycee Coma Scale Best Eye Response (Jaycee): (4) open spontaneously Best Verbal Response ([place]): (5) oriented Best Motor Response ([place]): (6) obeys commands Jaycee Total: 15 - Physical Exam General Appearance: no apparent distress, alert Eye Exam: bilateral eye: normal inspection, PERRL, EOMI Ears, Nose, Throat Exam: normal ENT inspection, TMs normal, pharynx normal, moist mucous membranes Neck Exam: normal inspection, non-tender, supple, full range of motion Respiratory: normal breath sounds, lungs clear Cardiovascular: regular rate/rhythm, normal heart sounds Gastrointestinal: soft, normal bowel sounds, No tenderness Back Exam: normal inspection Extremity Exam: normal inspection, normal range of motion, pelvis stable 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, oriented x 3, cooperative 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 Exam: normal hearing, normal speech, PERRL Coordination/Gait: normal finger to nose, normal cerebellar function Motor/Sensory: no motor deficit, no sensory deficit, no pronator drift, negative Babinski's sign DTR: bicep (R): 2+, bicep (L): 2+, knee (R): 2+, knee (L): 2+ Skin Exam: normal color SpO2 Interpretation: normal SpO2: 99 O2 Delivery: Room Air <ALBA CHRISTIANSON - Last Filed: 10/27/22 07:24> - Nursing Vital Signs Nursing Vital Signs: Initial Vital Signs Pulse Rate 100 H 10/27/22 06:34 Respiratory Rate 20 10/27/22 06:34 Blood Pressure 120/74 10/27/22 06:34 Pain Scale Pain Intensity 0 - Course EKG Interpreted by Me: RATE (100, ventricular paced rhythm) <ALBA CHRISTIANSON - Last Filed: 10/27/22 07:24> Ordered Tests: Active Orders 24 hr Category Date Time Status EKG-ER Only STAT Care 10/27/22 06:41 Active IV Insertion STAT Care 10/27/22 06:41 Active NPO (ED) STAT Care 10/27/22 06:40 Active CHEST 1 VIEW (PORTABLE) Stat Exams 10/27/22 06:40 Completed HEAD WITHOUT CONTRAST [CT] Stat Exams 10/27/22 06:41 Completed CBC W DIFF Stat Lab 10/27/22 07:05 Completed CMP Stat Lab 10/27/22 07:05 Completed Lactic Acid Stat Lab 10/27/22 06:40 Completed MAG [MAGNESIUM] Stat Lab 10/27/22 07:05 Completed NT PRO BNPII Stat Lab 10/27/22 07:05 Completed PROTIME WITH INR Stat Lab 10/27/22 07:05 Completed PTT Stat Lab 10/27/22 07:05 Completed TROPONIN Q3H Lab 10/27/22 07:05 Completed TROPONIN Q3H Lab 10/27/22 09:45 Ordered TROPONIN Q3H Lab 10/27/22 12:45 Ordered TROPONIN Q3H Lab 10/27/22 15:45 Ordered UA W/RFX UR CULTURE Stat Lab 10/27/22 06:40 Ordered Medication Summary Generic Name Dose Route Start Last Admin Trade Name Freq PRN Reason Stop Dose Admin Sodium Chloride 1,000 mls @ 100 mls/hr 10/27/22 06:45 10/27/22 07:02 Sodium Chloride 0.9% 1000 Ml IV 11/26/22 06:44 100 mls/hr .Q10H JUSTIN Administration Discontinued Medications Generic Name Dose Route Start Last Admin Trade Name Freq PRN Reason Stop Dose Admin Potassium Chloride 20 meq 10/27/22 08:53 Potassium Chloride Tab 10 Meq Tab PO 10/27/22 08:54 STAT ONE Lab/Rad Data: Laboratory Result Diagrams 10/27/22 07:05 10/27/22 07:05 Laboratory Results 10/27/22 10/27/22 10/27/22 Range/Units 07:05 07:05 07:05 WBC (4.0-10.5) x10^3/uL RBC (4.1-5.4) x10^6/uL Hgb (12.0-16.0) g/dL Hct (35-47) % MCV (78-100) fL MCH (26-32) pg MCHC (32-36) g/dL RDW (11.5-14.0) % Plt Count (150-450) x10^3/uL MPV (7.5-11.0) fL Gran % (36.0-66.0) % Immature Gran % (Auto) (0.00-0.4) % Nucleat RBC Rel Count (0.00-0.1) % Eos # (Auto) (0-0.5) x10^3/uL Immature Gran # (Auto) (0.00-0.03) x10^3u/L Absolute Lymphs (auto) (1.0-4.6) x10^3/uL Absolute Monos (auto) (0.0-1.3) x10^3/uL Absolute Nucleated RBC (0.00-0.01) x10^3u/L Lymphocytes % (24.0-44.0) % Monocytes % (0.0-12.0) % Eosinophils % (0.00-5.0) % Basophils % (0.0-0.4) % Absolute Granulocytes (1.4-6.9) x10^3/uL Basophils # (0-0.4) x10^3/uL PT 12.4 (9.4-12.5) SECONDS INR 1.15 (0.8-3.0) APTT 22.0 L (25.1-36.5) SECONDS Sodium (137-145) mmol/L Potassium (3.5-5.1) mmol/L Chloride (98-107) mmol/L Carbon Dioxide (22-30) mmol/L Anion Gap (5-15) MEQ/L BUN (7-17) mg/dL Creatinine (0.52-1.04) mg/dL Estimated GFR ML/MIN Glucose (74-106) mg/dL Lactic Acid (0.4-2.0) Calcium (8.4-10.2) mg/dL Magnesium 1.1 L (1.6-2.3) mg/dL Total Bilirubin (0.2-1.3) mg/dL AST (14-36) U/L ALT (0-35) U/L Alkaline Phosphatase (38-126) U/L Troponin I < 0.012 (0.000-0.034) ng/mL NT-Pro-B Natriuret Pep 94966 (<300) pg/mL Serum Total Protein (6.3-8.2) g/dL Albumin (3.5-5.0) g/dL 10/27/22 10/27/22 10/27/22 Range/Units 07:05 07:05 06:40 WBC 9.6 (4.0-10.5) x10^3/uL RBC 3.46 L (4.1-5.4) x10^6/uL Hgb 9.5 L (12.0-16.0) g/dL Hct 30.8 L (35-47) % MCV 89.0 (78-100) fL MCH 27.5 (26-32) pg MCHC 30.8 L (32-36) g/dL RDW 16.4 H (11.5-14.0) % Plt Count 264 (150-450) x10^3/uL MPV 8.9 (7.5-11.0) fL Gran % 60.4 (36.0-66.0) % Immature Gran % (Auto) 0.4 (0.00-0.4) % Nucleat RBC Rel Count 0.0 (0.00-0.1) % Eos # (Auto) 0.06 (0-0.5) x10^3/uL Immature Gran # (Auto) 0.04 H (0.00-0.03) x10^3u/L Absolute Lymphs (auto) 3.01 (1.0-4.6) x10^3/uL Absolute Monos (auto) 0.65 (0.0-1.3) x10^3/uL Absolute Nucleated RBC 0.00 (0.00-0.01) x10^3u/L Lymphocytes % 31.4 (24.0-44.0) % Monocytes % 6.8 (0.0-12.0) % Eosinophils % 0.6 (0.00-5.0) % Basophils % 0.4 (0.0-0.4) % Absolute Granulocytes 5.79 (1.4-6.9) x10^3/uL Basophils # 0.04 (0-0.4) x10^3/uL PT (9.4-12.5) SECONDS INR (0.8-3.0) APTT (25.1-36.5) SECONDS Sodium 138 (137-145) mmol/L Potassium 3.2 L (3.5-5.1) mmol/L Chloride 100 (98-107) mmol/L Carbon Dioxide 27 (22-30) mmol/L Anion Gap 14.7 (5-15) MEQ/L BUN 26 H (7-17) mg/dL Creatinine 1.19 H (0.52-1.04) mg/dL Estimated GFR 48.2 ML/MIN Glucose 124 H (74-106) mg/dL Lactic Acid 5.2 H (0.4-2.0) Calcium 8.3 L (8.4-10.2) mg/dL Magnesium (1.6-2.3) mg/dL Total Bilirubin 0.50 (0.2-1.3) mg/dL AST 25 (14-36) U/L ALT 15 (0-35) U/L Alkaline Phosphatase 96 (38-126) U/L Troponin I (0.000-0.034) ng/mL NT-Pro-B Natriuret Pep (<300) pg/mL Serum Total Protein 7.0 (6.3-8.2) g/dL Albumin 3.3 L (3.5-5.0) g/dL <ALBA CHRISTIANSON - Last Filed: 10/27/22 07:24> - Progress Counseled pt/family regarding: lab results, diagnosis, need for follow-up, rad results <SKYE ALVARENGA - Last Filed: 10/27/22 09:46> - Progress Progress Note: 10/27/22 07:51 67 years old female with multiple medical problems including atrial fibrillation AICD implant, on Eliquis, congestive heart failure, CVA, hypothyroidism, GERD presented in the ER via EMS with chief complaint of syncope/collapse with some weakness on the left side. Patient reports she was walking back from the bathroom, was trying to get on the bed, fell and passed out for couple of minutes. She woke up and was having some slurring of speech and EMS noticed some left-sided weakness in the upper and lower extremities which is improved on presentation. Patient is drowsy/sleepy but answering questions appropriately and moving all 4 extremities. Still complaining of dull aching left-sided chest pressure. No cough or difficulty breathing reported. Not a good historian and history is limited. She did have a skin tear of left forearm but no limitation range of motion at elbow/wrist. Patient is currently not in any distress, no obvious focal neurodeficit. CT head is obtained, EKG showed paced rhythm. Work-up is pending, care is transferred to Dr. Alvarenga at shift change ([facility] 10/27/22 09:22 I spoke with the teleneurologist. He does not feel the patient has had any type of acute infarction and is not feel that there is a need to perform an MRI of this patient's brain. He feels the confusion lethargy may be secondary to a metabolic issue rather than neurologic. He feels the patient should be monitored inpatient. We will make arrangements to transfer this patient to another facility where she can be monitored from the medical and cardiac standpoint. 10/27/22 09:42 This patient has been in our emergency department 3 times in the last approximately 2 months. She has had abdominal pain, chest pain and now syncopal episode. Patient's tinter photograph Dr. Duarte. We have had the patient evaluated today by neurology. They do not feel that it is a neurologic issue. Patient does have history of CHF and cardiac issues and has a pacemaker in place. I feel she needs a higher level of care and we are transferring her to [facility] in [facility]. I spoke with Dr. Ribera who is the emergency room physician on today. I reviewed the above history physical findings and results of the work-up. He accepts patient in transfer. This patient's medical issue is 1 of high complexity. This is based on the patient's multiple medical problems and severity of her medical issue today and the extensive work-up we performed. She is going to need a higher level of care and continued monitoring and work-up. 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 - Discussion of managment Care discussed with:: specialist (Teleneurologist) - Diagnostic Testing Diagnostic test were ordered, analyzed, and reviewed by me: Yes Radiological Interpretation: Reviewed by me, Teleradiologist Report - Risk of complications The pt has a high risk of morbidity or mortality based on: Decision regarding hospitilization or escalation of hosp level of care <SKYE ALVARENGA - Last Filed: 10/27/22 09:46> <ALBA CHRISTIANSON - Last Filed: 10/27/22 07:24> - Departure Departure Disposition: Transfer Critical Care Time: No <SKYE ALVARENGA - Last Filed: 10/27/22 09:46> - Departure Clinical Impression: Syncope, Confusion, Hypokalemia, Hypomagnesemia, Elevated brain natriuretic peptide (BNP) level Condition: Stable Referrals: WAQAR CASTRO [Primary Care Provider] - Follow up/PCP as directed
[2022-10-27 07:39] LABS: MAGNESIUM 1.1 mg/dL (1.6-2.3)
--- NOTE | 2022-10-27 08:41 | XRAY ---
Indication: Chest pain. Syncope. Comparison: August 04, 2022 Portable chest better inflated and remains clear. Heart is now enlarged again with left AICD and left Port-A-Cath. Bony thorax intact again with osteopenia. Impression: Cardiomegaly. Negative for acute pneumonic process or CHF.
[2022-10-27 08:46] VITALS: PULSE 100
[2022-10-27] MEDS ORDERED: Klor Con PO ONE ×2 (08:53→09:53)
[2022-10-27] MEDS ORDERED: Lasix 40 MG/4 ML IV ONE (09:47)
[2022-10-27] MEDS ORDERED: MAG-OX 400 PO ONE (09:47)
[2022-10-27 09:53] VITALS: BP 111/79; O2SAT 91
[2022-10-27] MEDS ORDERED: Lasix 40 MG/4 ML ONE (09:54)
[2022-10-27] MEDS ORDERED: MAG-OX 400 ONE (09:54)
[2022-10-27] MEDS ORDERED: DELTASONE 20 MG ONE (10:40)
[2022-10-27] MEDS ORDERED: ATARAX 25 MG ONE (10:40)
== END 2022-10-27 10:52 | disposition short-term general hospital (02) ==
LOC: ED 06:30
DX: R55 Syncope and collapse (principal); R41.0 Disorientation, unspecified; E87.6 Hypokalemia; E83.42 Hypomagnesemia; R79.89 Other specified abnormal findings of blood chemistry; R53.83 Other fatigue; R07.9 Chest pain, unspecified; I11.0 Hypertensive heart disease with heart failure; I50.9 Heart failure, unspecified; Z79.891 Long term (current) use of opiate analgesic; Z79.899 Other long term (current) drug therapy; Z28.310 Unvaccinated for COVID-19; Z86.718 Personal history of other venous thrombosis and embolism; Z79.01 Long term (current) use of anticoagulants
CPT/HCPCS: 36000; 36415; 70450; 71045; 80053; 83605; 83735; 83880; 84484; 85025; 85610; 85730; 93005; 96360; 96361; 96374; 99285; J1940; A9270-GY

== ENCOUNTER 2022-11-02 09:05 | Emergency (ER) | payer MEDICARE ==
--- NOTE | 2022-11-02 09:44 | ERPHSYRPT ---
- History of Present Illness Historian: patient, family Exam Limitations: no limitations Patient Subjective Stated Complaint: C/O mid lower abdominal pain for a few days. Triage Nursing Assessment: Patient is alert and oriented. No SOB. Able to transfer self from W/C to bed. Skin tone normal. No active vomiting during assessment. MOREJON WNL. Timing/Duration: today Quality: cramping Abdominal Pain Onset Location: RLQ, suprapubic Pain Radiation: no radiation Severity of Pain-Max: moderate Severity of Pain-Current: moderate Modifying Factors: Improves With: nothing Associated Symptoms: diarrhea, loss of appetite, nausea, No fever/chills, No shortness of breath, No vomiting, No weakness Previous symptoms: same symptoms as today Hx Tetanus, Diphtheria Vaccination/Date Given: Yes Hx Influenza Vaccination/Date Given: Yes Hx Pneumococcal Vaccination/Date Given: Yes Immunizations Up to Date: Yes <MARK ZHOU - Last Filed: 11/02/22 18:27> <DUSTIN BURKS - Last Filed: 11/04/22 11:53> <ALBA CHRISTIANSON - Last Filed: 11/07/22 14:12> - History of Present Illness Time Seen by Provider: 11/02/22 09:41 Physician History: Patient is 67-year-old female with multiple medical problem including chronic abdominal pain chronic constipation history of bowel obstruction followed by colonoscopy which was recently reversed. Patient started having abdominal pain belching since last night and which got worse in the morning so she came to the emergency room. Patient was complaining of some blood-tinged stool as well as some blood-tinged urine since morning. She denies any fever chills but complaining of nausea but denies vomiting. (WINNIE,MARK) Allergies/Adverse Reactions: baclofen Allergy (Severe, Verified 11/02/22 09:22) Difficulty Breathing pt states stopped breathing Sulfa (Sulfonamide Antibiotics) [Sulfa(Sulfonamide Antibiotics)] Allergy (Severe, Verified 11/02/22 09:22) Nausea and Vomiting adhesive Allergy (Mild, Verified 11/02/22 09:22) Blisters codeine [Codeine] Allergy (Mild, Verified 11/02/22 09:22) Nausea and Vomiting iron Adverse Reaction (Intermediate, Verified 11/02/22 09:22) Nausea oxycodone [From Percocet] Adverse Reaction (Intermediate, Verified 11/02/22 09:22) Vomiting Home Medications: Tizanidine HCl 4 mg PO TID PRN PRN 11/10/17 [History] Furosemide [Lasix] 40 mg PO DAILY PRN PRN 03/09/18 [History] Promethazine HCl 25 mg [Phenergan 25 mg] 25 mg PO Q6H PRN PRN 01/14/19 [History] Levothyroxine Sodium [Synthroid] 25 mcg PO DAILY 04/29/19 [History] Nitroglycerin 0.4 mg SL Q5MIN PRN MR X 3 PRN 04/29/19 [History] Morphine Sulfate [Morphine Sulfate ER] 30 mg PO BID 07/30/21 [History] Famotidine 40 mg PO DAILY 03/12/22 [History] Amiodarone HCl [Pacerone] 100 mg PO DAILY 08/28/22 [History] Travel Risk - International Travel Have you traveled outside of the country in past 3 weeks: No - Coronavirus Screening Are you exhibiting any of the following symptoms?: No Close contact with a COVID-19 positive Pt in past 14-21 Days: No - Vaccine Status Have you recieved a Covid-19 vaccination: No <WINNIE,MARK - Last Filed: 11/02/22 18:27> - Review of Systems Constitutional: No Fever, No Chills Eyes: No Symptoms Ears, Nose, & Throat: No Symptoms Respiratory: No Cough, No Dyspnea Cardiac: No Chest Pain, No Edema, No Syncope Abdominal/Gastrointestinal: Abdominal Pain, Nausea, Diarrhea, No Vomiting Genitourinary Symptoms: No Dysuria Musculoskeletal: No Back Pain, No Neck Pain Skin: No Rash Neurological: No Dizziness, No Focal Weakness, No Sensory Changes Psychological: No Symptoms Endocrine: No Symptoms All Other Systems: Reviewed and Negative <WINNIE,MARK - Last Filed: 11/02/22 18:27> - Past Medical History Pertinent Past Medical History: Yes Neurological History: Migraines, Stroke ENT History: No Pertinent History Cardiac History: Arrhythmia, Congestive Heart Failure, Deep Vein Thrombosis, Hypertension, Myocardial Infarction ([place]) Respiratory History: Asthma Endocrine Medical History: Hypothyroidism, Thyroid Cancer Musculoskeletal History: Degenerative Disk Disease, Other GI Medical History: GERD, Hernia, Other History: Renal Disease, Other Psycho-Social History: No Pertinent History Female Reproductive Disorders: Endometriosis Other Medical History: PMHX: CARDIAC CATH, INTERNAL PACEMAKER/DEFIB, COLON RESECTION, HERNIA SX, BACK FUSION - Past Surgical History Past Surgical History: Yes Neuro Surgical History: No Pertinent History Cardiac: Cardiac Catheterization, Internal Defibrillator, Pacemaker, Other Respiratory: No Pertinent History Gastrointestinal: Appendectomy, Cholecystectomy, Colon Resection, Hernia Repair, Other Genitourinary: No Pertinent History Musculoskeletal: Orthopedic Surgery Female Surgical History: Hysterectomy Other Surgical History: Hernia repair with scar tissue removal and colostomy reversal at in [place] by Dr. Branch on 07/01/22, COLON RESECTION, BACK FUSION, THYROID REMOVED and Parotid gland removed, ankle surgery,. OCTOBER 2018 CAROTIDECTOMY AND LYMPH NODE REMOVAL ON RIGHT SIDE, "filter for blood clots 2018" - Social History Smoking Status: Never smoker Exposure to second hand smoke: No Alcohol Use: None Drug Use: none Patient Lives Alone: No (Kaveh ) Significant Family History: heart disease, cancer, diabetes <WINNIE,MARK - Last Filed: 11/02/22 18:27> - Physical Exam General Appearance: no apparent distress, alert Eye Exam: PERRL/EOMI, eyes nml inspection Ears, Nose, Throat Exam: normal ENT inspection, pharynx normal, moist mucous membranes Neck Exam: normal inspection, non-tender, supple, full range of motion Respiratory Exam: normal breath sounds, lungs clear, No respiratory distress Cardiovascular Exam: regular rate/rhythm, normal heart sounds Gastrointestinal/Abdomen Exam: soft, tenderness, No normal bowel sounds, No distention, No mass, No guarding Back Exam: normal inspection, normal range of motion, No CVA tenderness, No vertebral tenderness Extremity Exam: normal inspection, normal range of motion, pelvis stable Neurologic Exam: alert, oriented x 3, cooperative, normal mood/affect, nml cerebellar function, sensation nml, No motor deficits Skin Exam: normal color, warm, dry SpO2: 96 <WINNIE,MARK - Last Filed: 11/02/22 18:27> - Nursing Vital Signs Nursing Vital Signs: Initial Vital Signs Pulse Rate 100 H 11/02/22 09:15 Respiratory Rate 30 H 11/02/22 09:15 Blood Pressure 128/92 11/02/22 09:15 O2 Sat by Pulse Oximetry 97 11/02/22 09:15 Pain Scale Pain Intensity 0 - Course Nursing assessment & vital signs reviewed: Yes <WINNIE,MARK - Last Filed: 11/02/22 18:27> Ordered Tests: Medication Summary Discontinued Medications Generic Name Dose Route Start Last Admin Trade Name Juanq PRN Reason Stop Dose Admin Heparin Sodium (Beef Lung) Confirm 11/04/22 11:42 Heparin Lock Flush Pf 500 Units/5 Ml Syringe Administered 11/04/22 11:43 Dose 500 units .ROUTE .STK-MED ONE Heparin Sodium (Beef Lung) 500 units 11/04/22 11:45 11/04/22 11:45 Heparin Lock Flush Pf 500 Units/5 Ml Syringe PORT FLUSH 12/04/22 11:44 500 units PRN PRN Administration IV PORT FLUSH Hydromorphone HCl 1 mg 11/02/22 09:40 11/02/22 10:19 Hydromorphone 1 Mg/1ml Inj IV 11/02/22 09:41 1 mg STAT ONE Administration Hydromorphone HCl Confirm 11/02/22 09:46 Hydromorphone 1 Mg/1ml Inj Administered 11/02/22 09:47 Dose 1 mg .ROUTE .STK-MED ONE Hydromorphone HCl 1 mg 11/02/22 13:33 11/02/22 13:38 Hydromorphone 1 Mg/1ml Inj IV 11/02/22 13:34 1 mg STAT ONE Administration Hydromorphone HCl Confirm 11/02/22 13:36 Hydromorphone 1 Mg/1ml Inj Administered 11/02/22 13:37 Dose 1 mg .ROUTE .STK-MED ONE Hydromorphone HCl 1 mg 11/02/22 18:39 11/02/22 18:47 Hydromorphone 1 Mg/1ml Inj IV 11/02/22 18:40 1 mg STAT ONE Administration Hydromorphone HCl Confirm 11/02/22 18:43 Hydromorphone 1 Mg/1ml Inj Administered 11/02/22 18:44 Dose 1 mg .ROUTE .STK-MED ONE Hydromorphone HCl 1 mg 11/02/22 23:25 11/02/22 23:33 Hydromorphone 1 Mg/1ml Inj IV 11/02/22 23:26 1 mg STAT ONE Administration Hydromorphone HCl Confirm 11/02/22 23:33 Hydromorphone 1 Mg/1ml Inj Administered 11/02/22 23:34 Dose 1 mg .ROUTE .STK-MED ONE Hydromorphone HCl 1 mg 11/03/22 05:40 11/04/22 01:12 Hydromorphone 1 Mg/1ml Inj IV 11/08/22 05:39 1 mg Q4H PRN PRN Administration PAIN Hydromorphone HCl Confirm 11/04/22 01:11 Hydromorphone 1 Mg/1ml Inj Administered 11/04/22 01:12 Dose 1 mg .ROUTE .STK-MED ONE Hydromorphone HCl 1 mg 11/04/22 09:02 11/04/22 09:05 Hydromorphone 1 Mg/1ml Inj IV 11/04/22 09:03 1 mg STAT ONE Administration Hydromorphone HCl Confirm 11/04/22 09:05 Hydromorphone 1 Mg/1ml Inj Administered 11/04/22 09:06 Dose 1 mg .ROUTE .STK-MED ONE Sodium Chloride 1,000 mls @ 999 mls/hr 11/02/22 09:40 11/02/22 10:18 Sodium Chloride 0.9% 1000 Ml IV 11/02/22 10:40 Not Given .Q1H1M STA Sodium Chloride Confirm 11/02/22 09:46 Sodium Chloride 0.9% 1000 Ml Administered 11/02/22 09:47 Dose 1,000 mls @ ud .ROUTE .STK-MED ONE Sodium Chloride 1,000 mls @ 125 mls/hr 11/03/22 07:30 11/04/22 02:53 Sodium Chloride 0.9% 1000 Ml IV 12/03/22 07:29 100 mls/hr .Q8H JUSTIN Administration Sodium Chloride Confirm 11/04/22 02:52 Sodium Chloride 0.9% 1000 Ml Administered 11/04/22 02:53 Dose 1,000 mls @ ud .ROUTE .STK-MED ONE Lorazepam Confirm 11/03/22 07:33 Lorazepam 2 Mg/1 Ml 2 Mg Vial Administered 11/03/22 07:34 Dose 2 mg .ROUTE .STK-MED ONE Lorazepam 0.5 mg 11/03/22 07:45 11/03/22 07:45 Lorazepam 2 Mg/1 Ml 2 Mg Vial IV 11/03/22 07:46 0.5 mg STAT ONE Administration Lorazepam 0.5 mg 11/03/22 21:18 11/03/22 21:25 Lorazepam 2 Mg/1 Ml 2 Mg Vial IV 11/03/22 21:19 0.5 mg STAT ONE Administration Lorazepam Confirm 11/03/22 21:24 Lorazepam 2 Mg/1 Ml 2 Mg Vial Administered 11/03/22 21:25 Dose 2 mg .ROUTE .STK-MED ONE Lorazepam Confirm 11/04/22 09:27 Lorazepam 2 Mg/1 Ml 2 Mg Vial Administered 11/04/22 09:28 Dose 2 mg .ROUTE .STK-MED ONE Lorazepam 1 mg 11/04/22 09:39 11/04/22 09:30 Lorazepam 2 Mg/1 Ml 2 Mg Vial IV 11/04/22 09:40 1 mg STAT ONE Administration Ondansetron HCl Confirm 11/03/22 18:14 Ondansetron Hcl 4 Mg/2 Ml Vial Administered 11/03/22 18:15 Dose 4 mg .ROUTE .STK-MED ONE Ondansetron HCl 4 mg 11/03/22 18:15 11/03/22 18:18 Ondansetron Hcl 4 Mg/2 Ml Vial IV 11/03/22 18:16 4 mg STAT ONE Administration Prochlorperazine Edisylate 5 mg 11/02/22 23:52 11/03/22 00:06 Prochlorperazine Edisylate 10 Mg/2 Ml Vial IV 11/02/22 23:53 5 mg STAT ONE Administration Prochlorperazine Edisylate Confirm 11/03/22 00:05 Prochlorperazine Edisylate 10 Mg/2 Ml Vial Administered 11/03/22 00:06 Dose 10 mg .ROUTE .STK-MED ONE Prochlorperazine Edisylate 5 mg 11/03/22 05:40 11/03/22 05:53 Prochlorperazine Edisylate 10 Mg/2 Ml Vial IV 11/03/22 05:41 5 mg STAT ONE Administration Lab/Rad Data: Laboratory Result Diagrams 11/04/22 06:55 11/04/22 06:55 Laboratory Results 11/04/22 11/04/22 11/03/22 Range/Units 06:55 06:55 08:05 WBC 7.9 (4.0-10.5) x10^3/uL RBC 3.36 L (4.1-5.4) x10^6/uL Hgb 9.1 L D (12.0-16.0) g/dL Hct 29.7 L (35-47) % MCV 88.4 D (78-100) fL MCH 27.1 (26-32) pg MCHC 30.6 L (32-36) g/dL RDW 15.9 H (11.5-14.0) % Plt Count 369 (150-450) x10^3/uL MPV 8.7 (7.5-11.0) fL Gran % 71.0 H (36.0-66.0) % Immature Gran % (Auto) 0.4 (0.00-0.4) % Nucleat RBC Rel Count 0.0 (0.00-0.1) % Eos # (Auto) 0.03 (0-0.5) x10^3/uL Immature Gran # (Auto) 0.03 (0.00-0.03) x10^3u/L Absolute Lymphs (auto) 1.45 (1.0-4.6) x10^3/uL Absolute Monos (auto) 0.74 (0.0-1.3) x10^3/uL Absolute Nucleated RBC 0.00 (0.00-0.01) x10^3u/L Lymphocytes % 18.4 L (24.0-44.0) % Monocytes % 9.4 (0.0-12.0) % Eosinophils % 0.4 (0.00-5.0) % Basophils % 0.4 (0.0-0.4) % Absolute Granulocytes 5.58 (1.4-6.9) x10^3/uL Basophils # 0.03 (0-0.4) x10^3/uL Sodium 138 136 L (137-145) mmol/L Potassium 3.4 L 3.5 (3.5-5.1) mmol/L Chloride 104 98 (98-107) mmol/L Carbon Dioxide 24 23 (22-30) mmol/L Anion Gap 13.7 17.8 H (5-15) MEQ/L BUN 16 17 (7-17) mg/dL Creatinine 0.87 0.97 (0.52-1.04) mg/dL Estimated GFR > 60.0 > 60.0 ML/MIN Glucose 116 H 142 H (74-106) mg/dL Calcium 8.2 L 9.0 (8.4-10.2) mg/dL Total Bilirubin 1.10 1.30 (0.2-1.3) mg/dL AST 18 29 (14-36) U/L ALT 9 13 (0-35) U/L Alkaline Phosphatase 99 126 (38-126) U/L Serum Total Protein 6.7 8.5 H (6.3-8.2) g/dL Albumin 3.0 L 3.9 (3.5-5.0) g/dL Amylase (30-110) U/L Lipase (23-300) U/L Slides for Path Review 11/03/22 11/02/22 11/02/22 Range/Units 08:05 10:25 10:25 WBC 11.6 H 10.2 (4.0-10.5) x10^3/uL RBC 4.25 3.33 L (4.1-5.4) x10^6/uL Hgb 11.4 L D 9.0 L (12.0-16.0) g/dL Hct 40.0 29.0 L (35-47) % MCV 94.1 D 87.1 (78-100) fL MCH 26.8 27.0 (26-32) pg MCHC 28.5 L 31.0 L (32-36) g/dL RDW 16.1 H 16.1 H (11.5-14.0) % Plt Count 392 366 (150-450) x10^3/uL MPV 9.1 9.0 (7.5-11.0) fL Gran % 71.8 H (36.0-66.0) % Immature Gran % (Auto) 0.3 (0.00-0.4) % Nucleat RBC Rel Count 0.0 (0.00-0.1) % Eos # (Auto) 0.02 (0-0.5) x10^3/uL Immature Gran # (Auto) 0.03 (0.00-0.03) x10^3u/L Absolute Lymphs (auto) 1.85 (1.0-4.6) x10^3/uL Absolute Monos (auto) 0.92 (0.0-1.3) x10^3/uL Absolute Nucleated RBC 0.00 (0.00-0.01) x10^3u/L Lymphocytes % 18.2 L (24.0-44.0) % Monocytes % 9.0 (0.0-12.0) % Eosinophils % 0.2 (0.00-5.0) % Basophils % 0.5 (0.0-0.4) % Absolute Granulocytes 7.30 H (1.4-6.9) x10^3/uL Basophils # 0.05 (0-0.4) x10^3/uL Sodium 134 L (137-145) mmol/L Potassium 3.7 (3.5-5.1) mmol/L Chloride 98 (98-107) mmol/L Carbon Dioxide 27 (22-30) mmol/L Anion Gap 13.4 (5-15) MEQ/L BUN 20 H (7-17) mg/dL Creatinine 1.14 H (0.52-1.04) mg/dL Estimated GFR 50.7 ML/MIN Glucose 118 H (74-106) mg/dL Calcium 8.3 L (8.4-10.2) mg/dL Total Bilirubin 0.80 (0.2-1.3) mg/dL AST 25 (14-36) U/L ALT 11 (0-35) U/L Alkaline Phosphatase 96 (38-126) U/L Serum Total Protein 7.3 (6.3-8.2) g/dL Albumin 3.3 L (3.5-5.0) g/dL Amylase 45 (30-110) U/L Lipase 130 (23-300) U/L Slides for Path Review YES CT/ABDOMEN AND PELVIS W/0 CONTRAS CLINICAL HISTORY:lower abdominal pain COMPARISON:08/28/2022; TECHNIQUES:CT of the abdomen and pelvis was performed with axial images as well as sagittal and coronal reconstruction images without intravenous contrast; FINDINGS: The small bowel loops in lower abdomen and pelvis are seen dilated reaching 5.5 cm in maximum caliber with fat stranding and minimal ascites, reflecting small bowel obstruction and further contrast enhanced CT is recommended. No pneumoperitoneum. The liver is normal in size, morphology and appears unremarkable with no intrahepatic or extrahepatic bile duct dilation. Cholecystectomy surgical clips are noted. IVC filter is noted and stents within both common iliac and external iliac veins. L5 and S1 intervertebral disc cage and interpedicular screws as well as plates. L3 and L4 vertebral body bony cement. Cardiomegaly is noted and further ECHO assessment is recommended. Unremarkable appearing pancreas. No pancreatic mass or ductal dilatation is seen. Unremarkable appearing spleen. The adrenal glands are normal. The kidneys appear unremarkable with no stones or hydronephrosis. Hyperdense foci are seen within the left renal parenchyma likely cysts with proteineious content. The ureters are normal with no stones. Unremarkable abdominal aorta without specific evidence of aneurysm or dissection. The stomach appears unremarkable. Unremarkable appearing duodenum. Bladder is unremarkable with no stones. The uterus and ovaries could not be visualized, kindly correlate with patient's surgical history. Mild degenerative changes seen in the visualized spine. No other bony abnormality detected. IMPRESSION: 1. The small bowel loops in lower abdomen and pelvis are seen dilated reaching 5.5 cm in maximum caliber with fat stranding and minimal ascites, reflecting small bowel obstruction and further contrast enhanced CT is recommended. 2. No pneumoperitoneum or significant free fluid. (WINNIE,MARK) - Progress Progress: unchanged, pain not gone completely <WINNIE,MARK - Last Filed: 11/02/22 18:27> <DUSTIN BURKS - Last Filed: 11/04/22 11:53> <ALBA CHRISTIANSON - Last Filed: 11/07/22 14:12> - Progress Progress Note: 11/02/22 15:35 Patient has reversal of colostomy in June [address] Branch at [facility]. Dr. Branch was contacted and he advised to observe the patient keep her n.p.o. and see if it resolves. Initially I decided to keep patients here but then I called the surgeon on-call at [facility] and he advised me to transfer patient to [facility]. [facility] transfer center was contacted again. (MARK ZHOU) 11/03/22 05:42 Apparently the transfer center at was unable to reach Dr. Branch through the night when her CT with p.o. and IV contrast as suggested was completed it again redemonstrated intestinal obstruction with a possible transition point at the rectosigmoid level as described in the text of the CT no pneumoperitoneum or significant free fluid. We did send the second CT to the cloud and we will continue attempts to speak with her surgeon Dr. Puentes today when he is available. 11/03/22 05:44 We were informed by the transfer center that a she is on the list is waiting for a bed there. 11/03/22 05:45 Since 5:30 AM she has also started to vomit as 1 would expect with a small bowel obstruction. (DUSTIN BURKS) 11/03/22 08:23 Patient is checked out to me at shift change from Dr. Burks with pending tr krissy. I have called [facility] transfer center. Patient has been accepted by Dr. Richards, waiting on bed availability. NG tube is placed. We will continue with IV fluid and n.p.o. Patient does not want any pain medication currently. Hemodynamically stable. 11/04/22 06:37 Patient did fairly good throughout my shift. She does have a bowel movement little bit ago, still pending transfer. Care is transferred to Dr. Burks at shift change (ALBA CHRISTIANSON) Medical Desision Making - Diagnostic Testing Radiological Interpretation: Reviewed by me - Risk of complications The pt has a high risk of morbidity or mortality based on: Need for major surgery in patient with known risk factors <DUSTIN BURKS - Last Filed: 11/04/22 11:53> <MARK ZHOU - Last Filed: 11/02/22 18:27> - Departure Departure Disposition: AMA (, After waiting 50 hours in the hospital for a transfer to an appropriate bed with her surgeons the patient's became upset and said he would take her out of the hospital AMA and drive her to [place] to where her surgeon provides care.) Critical Care Time: No <DUSTIN BURKS - Last Filed: 11/04/22 11:53> <ALBA CHRISTIANSON - Last Filed: 11/07/22 14:12> - Departure Clinical Impression: Small bowel obstruction Condition: Serious Referrals: WAQAR CASTRO [Primary Care Provider] - Follow up/PCP as directed Instructions: Abdominal pain
[2022-11-02] MEDS ORDERED: Hydromorphone 1 mg/ml Injection ONE ×4 (09:46→23:33)
[2022-11-02] MEDS ORDERED: Sodium Chloride 0.9% 1000 ML 1,000 ML ONE (09:46)
[2022-11-02] MEDS: Hydromorphone 1 mg/ml Injection IV ONE ×2 (09:50→10:19)
[2022-11-02] MEDS: Sodium Chloride 0.9% 1000 ML 1,000 ML IV STA ×2 (09:50→10:18)
[2022-11-02 10:27] LABS: BASOPHIL % 0.5 % (0.0-0.4); Basophil (Absolute #) 0.05 x10^3/uL (0-0.4); Eosinophil % 0.2 % (0.00-5.0); Eosinophil (Absolute #) 0.02 x10^3/uL (0-0.5); IMMATURE GRAN # 0.03 x10^3u/L (0.00-0.03); IMMATURE GRAN % 0.3 % (0.00-0.4); Lymphocyte (Absolute #) 1.85 x10^3/uL (1.0-4.6); Lymphocytes % 18.2 % (24.0-44.0); Mean Cell Volume 87.1 fL (78-100); Monocyte (Absolute #) 0.92 x10^3/uL (0.0-1.3); Neutrophil % 71.8 % (36.0-66.0); Platelet Count 366 x10^3/uL (150-450); Red Blood Count 3.33 x10^6/uL (4.1-5.4); Red Cell Distribution Width 16.1 % (11.5-14.0); White Blood Count 10.2 x10^3/uL (4.0-10.5)
[2022-11-02 10:40] LABS: ALBUMIN 3.3 g/dL (3.5-5.0); ANION GAP 13.4 MEQ/L (5-15); BILIRUBIN,TOTAL 0.8 mg/dL (0.2-1.3); Calcium 8.3 mg/dL (8.4-10.2); Creatinine 1 1.14 mg/dL (0.52-1.04); EST GLOMERULAR FILTRATION RATE 50.7 ML/MIN; Potassium 3.7 mmol/L (3.5-5.1); Total Protein 7.3 g/dL (6.3-8.2)
--- NOTE | 2022-11-02 11:50 | XRAY ---
CLINICAL HISTORY:lower abdominal pain COMPARISON:08/28/2022; TECHNIQUES:CT of the abdomen and pelvis was performed with axial images as well as sagittal and coronal reconstruction images without intravenous contrast; FINDINGS: The small bowel loops in lower abdomen and pelvis are seen dilated reaching 5.5 cm in maximum caliber with fat stranding and minimal ascites, reflecting small bowel obstruction and further contrast enhanced CT is recommended. No pneumoperitoneum. The liver is normal in size, morphology and appears unremarkable with no intrahepatic or extrahepatic bile duct dilation. Cholecystectomy surgical clips are noted. IVC filter is noted and stents within both common iliac and external iliac veins. L5 and S1 intervertebral disc cage and interpedicular screws as well as plates. L3 and L4 vertebral body bony cement. Cardiomegaly is noted and further ECHO assessment is recommended. Unremarkable appearing pancreas. No pancreatic mass or ductal dilatation is seen. Unremarkable appearing spleen. The adrenal glands are normal. The kidneys appear unremarkable with no stones or hydronephrosis. Hyperdense foci are seen within the left renal parenchyma likely cysts with proteineious content. The ureters are normal with no stones. Unremarkable abdominal aorta without specific evidence of aneurysm or dissection. The stomach appears unremarkable. Unremarkable appearing duodenum. Bladder is unremarkable with no stones. The uterus and ovaries could not be visualized, kindly correlate with patient's surgical history. Mild degenerative changes seen in the visualized spine. No other bony abnormality detected. IMPRESSION: 1. The small bowel loops in lower abdomen and pelvis are seen dilated reaching 5.5 cm in maximum caliber with fat stranding and minimal ascites, reflecting small bowel obstruction and further contrast enhanced CT is recommended. 2. No pneumoperitoneum or significant free fluid. Electronically Signed by: Sonja Nicholas MD. (11/02/2022 10:45:44 REGULATORY COMPLIANCE OFFICER)
[2022-11-02] MEDS ORDERED: Hydromorphone 1 mg/ml Injection IV ONE ×3 (13:33→23:25)
--- NOTE | 2022-11-02 23:51 | XRAY ---
CLINICAL HISTORY:pain COMPARISON:None; TECHNIQUES:CT of the abdomen and pelvis was performed in the axial plane with sagittal and coronal reconstruction images with intravenous contrast; FINDINGS: Persistent dilation of intestinal loops down to the rectosigmoid region with associating air-fluid level suggestive of obstruction. Small bowel loops with a millimeter measure up to 5.5 cm. Narrowing of the loops is noted at the level of the sigmoid suspicious for transitional point. No associating perforation or free fluid. Post colonic resection status. No pneumoperitoneum is seen in the present study. Congestive liver with volume redistribution possibly due to heart failure is noted. Please correlate clinically. No intrahepatic or extrahepatic bile duct dilation. Cholecystectomy surgical clips are noted. Unremarkable appearing pancreas. No pancreatic mass or ductal dilatation is seen. Unremarkable appearing spleen. The adrenal glands are normal. The kidneys appear unremarkable with no stones or hydronephrosis. Hyperdense foci are seen within the left renal parenchyma likely cysts with proteinous content. The ureters are normal with no stones. The stomach appears unremarkable. Bladder is unremarkable with no stones. The uterus and ovaries could not be visualized, kindly correlate with the patient's surgical history. Mild degenerative changes are seen in the visualized spine. IVC filter is noted and stents within both common iliac and external iliac veins. L5 and S1 intervertebral disc cage and intrapedicular screws as well as plates. L3 and L4 vertebral body bony cement. Sections of the lower thorax show minimal right pleural effusion with few atelectatic bands in basal regions. Cardiomegaly is noted and further ECHO assessment is recommended. IMPRESSION: 1-Redemonstration of intestinal obstruction with a possible transitional point at the rectosigmoid level as described. 2-No pneumoperitoneum or significant free fluid. [facility] ER was called at [phone] at 10:[address] SAFETY ENGINEER, 11/02/2022 and results were verbally communicated to Xavi Phillips. Electronically Signed by: Sonja Nicholas MD. (11/02/2022 22:46:13 [address] SAF[employer]Y ENGINEER)
[2022-11-02] MEDS ORDERED: Compazine 10 MG/2 ML IV ONE (23:52)
[2022-11-03] MEDS ORDERED: Compazine 10 MG/2 ML ONE (00:05)
[2022-11-03] MEDS ORDERED: Compazine 10 MG/2 ML IV ONE (05:40)
[2022-11-03] MEDS: Hydromorphone 1 mg/ml Injection IV PRN (05:54)
[2022-11-03] MEDS: Sodium Chloride 0.9% 1000 ML 1,000 ML IV SCH ×2 (07:26→16:30)
[2022-11-03] MEDS ORDERED: Ativan 2 MG/1 ML VIAL ONE ×2 (07:33→21:24)
[2022-11-03] MEDS ORDERED: Ativan 2 MG/1 ML VIAL IV ONE ×2 (07:45→21:18)
[2022-11-03 08:09] LABS: Hemoglobin 11.4 g/dL (12.0-16.0); Mean Cell Volume 94.1 fL (78-100); Mean Corpuscular Hemoglobin 26.8 pg (26-32); Mean Corpuscular Hgb Concent. 28.5 g/dL (32-36); Mean Platelet Volume 9.1 fL (7.5-11.0); Platelet Count 392 x10^3/uL (150-450); Red Blood Count 4.25 x10^6/uL (4.1-5.4); Red Cell Distribution Width 16.1 % (11.5-14.0); White Blood Count 11.6 x10^3/uL (4.0-10.5)
[2022-11-03 08:25] VITALS: PULSE 100
[2022-11-03 08:31] LABS: ALBUMIN 3.9 g/dL (3.5-5.0); ALKALINE PHOSPHATASE 126 U/L (38-126); ANION GAP 17.8 MEQ/L (5-15); BLOOD UREA NITROGEN 17 mg/dL (7-17); CHLORIDE 98 mmol/L (98-107); Carbon Dioxide 23 mmol/L (22-30); Creatinine 1 0.97 mg/dL (0.52-1.04); EST GLOMERULAR FILTRATION RATE > 60.0 ML/MIN; Glucose 142 mg/dL (74-106); Potassium 3.5 mmol/L (3.5-5.1); SGOT/AST 29 U/L (14-36); SGPT/ALT 13 U/L (0-35); SODIUM 136 mmol/L (137-145); Total Protein 8.5 g/dL (6.3-8.2)
--- NOTE | 2022-11-03 08:51 | XRAY ---
Indication: NG tube placement. Comparison: October 27, 2022 Portable chest demonstrates new NG tube coiled in stomach. Remaining chest is now underinflated accentuating cardiopulmonary structures with new minimal bibasilar subsegmental atelectasis. No focal infiltrate, consolidation, or large effusion. Heart remains enlarged with incidental left AICD and Port-A-Cath.
[2022-11-03 09:22] LABS: Slide Review YES
[2022-11-03] MEDS ORDERED: Zofran 4 MG/2 ML VIAL ONE (18:14)
[2022-11-03] MEDS ORDERED: Zofran 4 MG/2 ML VIAL IV ONE (18:15)
[2022-11-04] MEDS ORDERED: Hydromorphone 1 mg/ml Injection ONE ×2 (01:11→09:05)
[2022-11-04] MEDS: Hydromorphone 1 mg/ml Injection IV PRN (01:12)
[2022-11-04] MEDS ORDERED: Sodium Chloride 0.9% 1000 ML 1,000 ML ONE (02:52)
[2022-11-04] MEDS: Sodium Chloride 0.9% 1000 ML 1,000 ML IV SCH (02:53)
[2022-11-04 07:00] LABS: Absolute Neutrophil Ct (ANC) 5.58 x10^3/uL (1.4-6.9); BASOPHIL % 0.4 % (0.0-0.4); Basophil (Absolute #) 0.03 x10^3/uL (0-0.4); Eosinophil % 0.4 % (0.00-5.0); Eosinophil (Absolute #) 0.03 x10^3/uL (0-0.5); Hematocrit 29.7 % (35-47); Hemoglobin 9.1 g/dL (12.0-16.0); IMMATURE GRAN # 0.03 x10^3u/L (0.00-0.03); IMMATURE GRAN % 0.4 % (0.00-0.4); Lymphocyte (Absolute #) 1.45 x10^3/uL (1.0-4.6); Lymphocytes % 18.4 % (24.0-44.0); Mean Cell Volume 88.4 fL (78-100); Mean Corpuscular Hemoglobin 27.1 pg (26-32); Mean Corpuscular Hgb Concent. 30.6 g/dL (32-36); Mean Platelet Volume 8.7 fL (7.5-11.0); Monocyte (Absolute #) 0.74 x10^3/uL (0.0-1.3); Monocytes % 9.4 % (0.0-12.0); Platelet Count 369 x10^3/uL (150-450); Red Blood Count 3.36 x10^6/uL (4.1-5.4); Red Cell Distribution Width 15.9 % (11.5-14.0); White Blood Count 7.9 x10^3/uL (4.0-10.5)
[2022-11-04 07:58] LABS: ALKALINE PHOSPHATASE 99 U/L (38-126); ANION GAP 13.7 MEQ/L (5-15); BLOOD UREA NITROGEN 16 mg/dL (7-17); CHLORIDE 104 mmol/L (98-107); Calcium 8.2 mg/dL (8.4-10.2); Carbon Dioxide 24 mmol/L (22-30); Creatinine 1 0.87 mg/dL (0.52-1.04); EST GLOMERULAR FILTRATION RATE > 60.0 ML/MIN; Glucose 116 mg/dL (74-106); Potassium 3.4 mmol/L (3.5-5.1); SGOT/AST 18 U/L (14-36); SGPT/ALT 9 U/L (0-35); SODIUM 138 mmol/L (137-145); Total Protein 6.7 g/dL (6.3-8.2)
--- NOTE | 2022-11-04 08:52 | XRAY ---
Indication: Small bowel obstruction. Multiple contiguous axial images obtained through the abdomen and pelvis without contrast. Comparison: November 02, 2022 Lung bases again demonstrates scattered subcentimeter atelectasis/scarring. Heart remains enlarged. New NG tube with tip coiled in the stomach. Stomach is now mildly fluid distended. Interval worsening of moderate diffuse fluid distended small and large bowel loops with again fluid leveling to the level of the rectosigmoid junction again favoring obstruction. No free fluid/air. Minimal residual contrast system. Again incidental hysterectomy and cholecystectomy clips. Remaining liver, pancreas, spleen, adrenal glands, kidneys, ureters, and bladder are unremarkable. There remains minimal aortoiliac calcifications without AAA, IVC filter, and biiliac caval stent grafts. Impression: 1. Worsening small and large bowel obstruction the level of the rectosigmoid junction. No free fluid/air. 2. New NG tube tip coiled in fluid distended stomach. 3. Again cardiomegaly without kimmie CHF chronic vascular findings.
[2022-11-04] MEDS ORDERED: Hydromorphone 1 mg/ml Injection IV ONE (09:02)
[2022-11-04] MEDS ORDERED: Ativan 2 MG/1 ML VIAL ONE (09:27)
[2022-11-04] MEDS ORDERED: Ativan 2 MG/1 ML VIAL IV ONE (09:39)
[2022-11-04 10:36] VITALS: O2SAT 95
[2022-11-04 11:08] VITALS: BP 134/91
== END 2022-11-04 11:58 | disposition left against medical advice (07) ==
LOC: ED 09:05
DX: K56.609 Unspecified intestinal obstruction, unspecified as to partial versus complete obstruction (principal); R10.9 Unspecified abdominal pain; R11.0 Nausea; I11.0 Hypertensive heart disease with heart failure; I50.9 Heart failure, unspecified; Z79.891 Long term (current) use of opiate analgesic; Z79.899 Other long term (current) drug therapy; Z28.310 Unvaccinated for COVID-19
CPT/HCPCS: 36415; 71045; 74176; 74177; 80053; 82150; 83690; 85025; 85027; 96360; 96361; 96374; 96375; 96376; 99285; J1170; J1642; J2060; J2405

== ENCOUNTER 2022-11-18 14:35 | Emergency (ER) | payer MEDICARE ==
--- NOTE | 2022-11-18 14:51 | ERPHSYRPT ---
- History of Present Illness Time Seen by Provider: 11/18/22 14:51 Source: patient, family Exam Limitations: no limitations Physician History: This is an obese 67-year-old white female patient of Dr. Castro and shingle catcher Dr. Duarte who presents with 3 to 4-day history of increasing number of weeping blisters of her bilateral below the knee skin. She notices that in the morning after sleeping throughout the night these blisters are contracted but as she is up and about and sitting with her legs down these blistered areas filled with fluid and weep. The fluid that they are weeping is generally just clear fluid. She noticed a few areas in the left lower leg there was some mild greenish drainage and increased redness. Patient was seen by Dr. Castro on the Friday prior to this evaluation and he put her on an antibiotic. She does not feel that this is improving. Patient has multiple medical problems. She has a history of CVA, migraine headaches, CHF, hypertension, hypothyroidism, gastroesophageal reflux disease, coronary artery disease and arrhythmias. She also has chronic renal disease which she is seen Dr. Ricardo, head of biology in the distant past. Patient denies shortness of breath and she denies chest pain at this time. Quality: other (No significant pain) Location: extremities (Bilateral below the knees) Possible Causes: other (Bilateral below the knees lymphedema) Associated Symptoms: blisters (Bilateral below the knee multiple blistering with clear fluid weeping) Allergies/Adverse Reactions: baclofen Allergy (Severe, Verified 11/02/22 09:22) Difficulty Breathing pt states stopped breathing Sulfa (Sulfonamide Antibiotics) [Sulfa(Sulfonamide Antibiotics)] Allergy (Severe, Verified 11/02/22 09:22) Nausea and Vomiting adhesive Allergy (Mild, Verified 11/02/22 09:22) Blisters codeine [Codeine] Allergy (Mild, Verified 11/02/22 09:22) Nausea and Vomiting iron Adverse Reaction (Intermediate, Verified 11/02/22 09:22) Nausea oxycodone [From Percocet] Adverse Reaction (Intermediate, Verified 11/02/22 09:22) Vomiting Home Medications: Tizanidine HCl 4 mg PO TID PRN PRN 11/10/17 [History] Furosemide [Lasix] 40 mg PO DAILY PRN PRN 03/09/18 [History] Promethazine HCl 25 mg [Phenergan 25 mg] 25 mg PO Q6H PRN PRN 01/14/19 [History] Levothyroxine Sodium [Synthroid] 25 mcg PO DAILY 04/29/19 [History] Nitroglycerin 0.4 mg SL Q5MIN PRN MR X 3 PRN 04/29/19 [History] Morphine Sulfate [Morphine Sulfate ER] 30 mg PO BID 07/30/21 [History] Famotidine 40 mg PO DAILY 03/12/22 [History] Amiodarone HCl [Pacerone] 100 mg PO DAILY 08/28/22 [History] Hx Tetanus, Diphtheria Vaccination/Date Given: Yes Hx Influenza Vaccination/Date Given: Yes Hx Pneumococcal Vaccination/Date Given: Yes Travel Risk - International Travel Have you traveled outside of the country in past 3 weeks: No - Coronavirus Screening Are you exhibiting any of the following symptoms?: No Close contact with a COVID-19 positive Pt in past 14-21 Days: No - Vaccine Status Have you recieved a Covid-19 vaccination: No - Past Medical History Pertinent Past Medical History: Yes Neurological History: Migraines, Stroke ENT History: No Pertinent History Cardiac History: Arrhythmia, Congestive Heart Failure, Deep Vein Thrombosis, Hypertension, Myocardial Infarction ([place]) Respiratory History: Asthma Endocrine Medical History: Hypothyroidism, Thyroid Cancer Musculoskeletal History: Degenerative Disk Disease, Other GI Medical History: GERD, Hernia, Other History: Renal Disease, Other Psycho-Social History: No Pertinent History Female Reproductive Disorders: Endometriosis Other Medical History: PMHX: CARDIAC CATH, INTERNAL PACEMAKER/DEFIB, COLON RESECTION, HERNIA SX, BACK FUSION - Past Surgical History Past Surgical History: Yes Neuro Surgical History: No Pertinent History Cardiac: Cardiac Catheterization, Internal Defibrillator, Pacemaker, Other Respiratory: No Pertinent History Gastrointestinal: Appendectomy, Cholecystectomy, Colon Resection, Hernia Repair, Other Genitourinary: No Pertinent History Musculoskeletal: Orthopedic Surgery Female Surgical History: Hysterectomy Other Surgical History: Hernia repair with scar tissue removal and colostomy reversal at in [place] by Dr. Branch on 07/01/22, COLON RESECTION, BACK FUSION, THYROID REMOVED and Parotid gland removed, ankle surgery,. OCTOBER 2018 CAROTIDECTOMY AND LYMPH NODE REMOVAL ON RIGHT SIDE, "filter for blood clots 2018" - Social History Smoking Status: Never smoker Exposure to second hand smoke: No Alcohol Use: None Drug Use: none Patient Lives Alone: No (Kaveh ) Significant Family History: heart disease, cancer, diabetes - Nursing Vital Signs Nursing Vital Signs: Initial Vital Signs Temperature 97.1 F 11/18/22 15:08 Pulse Rate 100 H 11/18/22 15:08 Respiratory Rate 20 11/18/22 15:08 Blood Pressure 84/67 11/18/22 15:08 O2 Sat by Pulse Oximetry 95 11/18/22 15:08 Pain Scale Pain Intensity 4 - Physical Exam General Appearance: no apparent distress, alert, obese Eye Exam: PERRL/EOMI, eyes nml inspection Ears, Nose, Throat Exam: normal ENT inspection, moist mucous membranes Neck Exam: normal inspection, non-tender, supple, full range of motion Respiratory Exam: normal breath sounds, lungs clear, airway intact, No chest tenderness, No respiratory distress Cardiovascular Exam: regular rate/rhythm, normal heart sounds, normal peripheral pulses Gastrointestinal/Abdomen Exam: No tenderness Pelvic Exam: not done Rectal Exam: not done Back Exam: normal inspection, normal range of motion, No CVA tenderness, No vertebral tenderness Neurologic Exam: alert, oriented x 3, cooperative, paper sheeter II-XII nml as tested, normal mood/affect, nml cerebellar function, nml station & gait, sensation nml Skin Exam: other (Bilateral lower extremity below the knee lymphedema with multiple blisters and clear liquid present. 1 small patch left lower leg that is slightly red. No proximal streaking.) Lymphatic Exam: No adenopathy SpO2 Interpretation: normal O2 Delivery: Room Air - Course Nursing assessment & vital signs reviewed: Yes Ordered Tests: Medication Summary Generic Name Dose Route Start Last Admin Trade Name Brad PRN Reason Stop Dose Admin Levofloxacin/Dextrose 500 mg in 100 mls @ 100 mls/hr 11/18/22 16:43 Levofloxacin 500mg/100ml D5w IV 11/18/22 17:42 STAT STA - Progress Progress: unchanged Progress Note: 11/18/22 16:56 This patient's medical issue today is 1 of low complexity. The level of complexity and the work-up necessary in this patient today is based on review of the patient's past medical history, review of the patient's medication list, review of the patient's drug allergy list, history of present illness and physical findings on examination. The patient has lymphedema. There is 1 small area of redness and we will place her on Levaquin and have her stop taking her current antibiotic. Patient is not convinced that the current antibiotic is helping. We will make arrangements for her to follow-up in the wound care clinic as well as attempted give her a list of some names of vascular surgeons that can deal with this chronic recurring issue. Counseled pt/family regarding: diagnosis, need for follow-up Medical Desision Making - Diagnostic Testing Diagnostic test were ordered, analyzed, and reviewed by me: No - Risk of complications The pt has a mod risk of morbidity or mortality based on: Need for prescription drug management - Departure Departure Disposition: Home Clinical Impression: Lymphedema, Cellulitis Condition: Stable Critical Care Time: No Referrals: WAQAR CASTRO [Primary Care Provider] - Follow up/PCP as directed Instructions: Lymphedema (DC) Additional Instructions: Stop your current antibiotic. Take Levaquin orally 500 mg each day x7 days. Follow-up with the wound care clinic here at [facility] for further evaluation management. Contact the vascular surgeon for further evaluation and management. Call Dr. Castro's office on 11/20/2022 and discuss possible referral to a vascular surgeon as indicated. Prescriptions: Levofloxacin [Levaquin 500 MG Tablet] 500 mg PO DAILY #7 tablet
[2022-11-18 16:24] VITALS: PULSE 98
[2022-11-18] MEDS ORDERED: Levofloxacin 500MG/100ML D5W 500 MG/100 ML BAG IV STA (16:43)
[2022-11-18] MEDS ORDERED: Levofloxacin 500MG/100ML D5W 500 MG/100 ML BAG IV ONE (17:19)
[2022-11-18 18:02] VITALS: BP 107/88; O2SAT 89
== END 2022-11-18 18:11 | disposition home or self-care (01) ==
LOC: ED 14:35
DX: I89.0 Lymphedema, not elsewhere classified (principal); L03.116 Cellulitis of left lower limb; I13.0 Hypertensive heart and chronic kidney disease with heart failure and stage 1 through stage 4 chronic kidney disease, or unspecified chronic kidney disease; I50.9 Heart failure, unspecified; N18.9 Chronic kidney disease, unspecified; Z79.891 Long term (current) use of opiate analgesic; Z79.899 Other long term (current) drug therapy; Z28.310 Unvaccinated for COVID-19
CPT/HCPCS: 99283; J1956

== ENCOUNTER 2022-11-27 13:47 | Emergency (ER) | payer MEDICARE ==
[2022-11-27] MEDS ORDERED: Zofran 4 MG/2 ML VIAL IV ONE (13:56)
[2022-11-27] MEDS ORDERED: SUBLIMAZE 100 MCG/2 ML IV ONE (13:56)
[2022-11-27] MEDS ORDERED: Sodium Chloride 0.9% 1000 ML 1,000 ML IV STA (13:56)
[2022-11-27] MEDS ORDERED: Zofran 4 MG/2 ML VIAL ONE (14:16)
[2022-11-27] MEDS ORDERED: SUBLIMAZE 100 MCG/2 ML ONE (14:17)
[2022-11-27] MEDS ORDERED: Sodium Chloride 0.9% 1000 ML 1,000 ML ONE (14:17)
[2022-11-27 14:40] LABS: Absolute Neutrophil Ct (ANC) 5.48 x10^3/uL (1.4-6.9); BASOPHIL % 0.4 % (0.0-0.4); Basophil (Absolute #) 0.03 x10^3/uL (0-0.4); Eosinophil % 0.1 % (0.00-5.0); Eosinophil (Absolute #) 0.01 x10^3/uL (0-0.5); Hematocrit 32.5 % (35-47); IMMATURE GRAN # 0.03 x10^3u/L (0.00-0.03); IMMATURE GRAN % 0.4 % (0.00-0.4); Lymphocyte (Absolute #) 1.06 x10^3/uL (1.0-4.6); Lymphocytes % 15.4 % (24.0-44.0); Mean Cell Volume 92.6 fL (78-100); Mean Corpuscular Hemoglobin 25.6 pg (26-32); Mean Corpuscular Hgb Concent. 27.7 g/dL (32-36); Mean Platelet Volume 9.6 fL (7.5-11.0); Monocyte (Absolute #) 0.26 x10^3/uL (0.0-1.3); Monocytes % 3.8 % (0.0-12.0); Neutrophil % 79.9 % (36.0-66.0); Platelet Count 314 x10^3/uL (150-450); Red Blood Count 3.51 x10^6/uL (4.1-5.4); Red Cell Distribution Width 16.1 % (11.5-14.0); White Blood Count 6.9 x10^3/uL (4.0-10.5)
[2022-11-27] MEDS ORDERED: Reglan 10 MG/2 ML ONE (15:02)
[2022-11-27 15:09] LABS: TROPONIN < 0.012 ng/mL (0.000-0.034)
[2022-11-27] MEDS ORDERED: Reglan 10 MG/2 ML IV ONE (15:10)
[2022-11-27 15:13] LABS: Slide Review 1 YES
--- NOTE | 2022-11-27 15:18 | ERPHSYRPT ---
- History of Present Illness Time Seen by Provider: 11/27/22 14:05 Historian: patient, family Exam Limitations: no limitations Patient Subjective Stated Complaint: abd pain and vomiting x 2 days Triage Nursing Assessment: pt to ED c/o abd pain and emesis x 2 days. pt was in this ED and tx to [facility] about 1 month ago for bowel obstruction. pt had ballon procedure to alleviate obstruction but states that she hasnt felt "normal" since then. scheduled to follow up with surgeon group on 12/05/22. pt states eating and drinking increases abd pain and vomiting. faint bowel sounds noted and pitting edema in lower extremities. Physician History: Patient is a 67-year-old white female with a history of small bowel obstruction who presents with 2 days of nausea vomiting and abdominal pain. Approximately a month ago she was transferred to [facility] after a 50-hour stay in this ER awaiting bed availability. Her surgeon at [facility] is Dr. Escalante to the and he saw her and treated her while she was there. She was released after a couple of balloon procedures to dilate her intestinal tract in some manner ac cording to the she has an appointment with him in 8 days for follow-up. It should be noted that the removed her AGAINST MEDICAL ADVICE from our ER to [facility] because of his concern for her health during her long stay here in the ER. Timing/Duration: day(s) (2) Activities at Onset: none Abdominal Pain Onset Location: generalized abdomen Modifying Factors: Improves With: vomiting Associated Symptoms: nausea, vomiting Previous symptoms: same symptoms as today Allergies/Adverse Reactions: baclofen Allergy (Severe, Verified 11/27/22 13:50) Difficulty Breathing pt states stopped breathing Sulfa (Sulfonamide Antibiotics) [Sulfa(Sulfonamide Antibiotics)] Allergy (Severe, Verified 11/27/22 13:50) Nausea and Vomiting adhesive Allergy (Mild, Verified 11/27/22 13:50) Blisters codeine [Codeine] Allergy (Mild, Verified 11/27/22 13:50) Nausea and Vomiting iron Adverse Reaction (Intermediate, Verified 11/27/22 13:50) Nausea oxycodone [From Percocet] Adverse Reaction (Intermediate, Verified 11/27/22 13:50) Vomiting Home Medications: Tizanidine HCl 4 mg PO TID PRN PRN 11/10/17 [History] Furosemide [Lasix] 40 mg PO DAILY PRN PRN 03/09/18 [History] Promethazine HCl 25 mg [Phenergan 25 mg] 25 mg PO Q6H PRN PRN 01/14/19 [History] Levothyroxine Sodium [Synthroid] 25 mcg PO DAILY 04/29/19 [History] Nitroglycerin 0.4 mg SL Q5MIN PRN MR X 3 PRN 04/29/19 [History] Morphine Sulfate [Morphine Sulfate ER] 30 mg PO BID 07/30/21 [History] Famotidine 40 mg PO DAILY 03/12/22 [History] Amiodarone HCl [Pacerone] 100 mg PO DAILY 08/28/22 [History] Hx Tetanus, Diphtheria Vaccination/Date Given: Yes Hx Influenza Vaccination/Date Given: Yes Hx Pneumococcal Vaccination/Date Given: Yes Immunizations Up to Date: Yes Travel Risk - International Travel Have you traveled outside of the country in past 3 weeks: No - Coronavirus Screening Are you exhibiting any of the following symptoms?: Yes Symptoms: Vomiting/Diarrhea Close contact with a COVID-19 positive Pt in past 14-21 Days: No - Vaccine Status Have you recieved a Covid-19 vaccination: No - Review of Systems Constitutional: No Fever, No Chills Eyes: No Symptoms Ears, Nose, & Throat: No Symptoms Respiratory: No Cough, No Dyspnea Cardiac: No Chest Pain, No Edema, No Syncope Abdominal/Gastrointestinal: No Abdominal Pain, No Nausea, No Vomiting, No Diarrhea Genitourinary Symptoms: No Dysuria Musculoskeletal: No Back Pain, No Neck Pain Skin: No Rash Neurological: No Dizziness, No Focal Weakness, No Sensory Changes Psychological: No Symptoms Endocrine: No Symptoms All Other Systems: Reviewed and Negative - Past Medical History Pertinent Past Medical History: Yes Neurological History: Migraines, Stroke ENT History: No Pertinent History Cardiac History: Arrhythmia, Congestive Heart Failure, Deep Vein Thrombosis, Hypertension, Myocardial Infarction (MD) Respiratory History: Asthma Endocrine Medical History: Hypothyroidism, Thyroid Cancer Musculoskeletal History: Degenerative Disk Disease, Other GI Medical History: GERD, Hernia, Other History: Renal Disease, Other Psycho-Social History: No Pertinent History Female Reproductive Disorders: Endometriosis Other Medical History: PMHX: CARDIAC CATH, INTERNAL PACEMAKER/DEFIB, COLON RESECTION, HERNIA SX, BACK FUSION - Past Surgical History Past Surgical History: Yes Neuro Surgical History: No Pertinent History Cardiac: Cardiac Catheterization, Internal Defibrillator, Pacemaker, Other Respiratory: No Pertinent History Gastrointestinal: Appendectomy, Cholecystectomy, Colon Resection, Hernia Repair, Other Genitourinary: No Pertinent History Musculoskeletal: Orthopedic Surgery Female Surgical History: Hysterectomy Other Surgical History: Hernia repair with scar tissue removal and colostomy reversal at in [place] by Dr. Branch on 07/01/22, COLON RESECTION, BACK FUSION, THYROID REMOVED and Parotid gland removed, ankle surgery,. OCTOBER 2018 CAROTIDECTOMY AND LYMPH NODE REMOVAL ON RIGHT SIDE, "filter for blood clots 2018" - Social History Smoking Status: Never smoker Exposure to second hand smoke: No Alcohol Use: None Drug Use: none Patient Lives Alone: No (Kaveh ) Significant Family History: heart disease, cancer, diabetes - Nursing Vital Signs Nursing Vital Signs: Initial Vital Signs Pulse Rate 100 H 11/27/22 13:52 Respiratory Rate 22 11/27/22 13:52 Blood Pressure 130/83 11/27/22 13:52 O2 Sat by Pulse Oximetry 95 11/27/22 13:52 Pain Scale Pain Intensity 0 - Physical Exam General Appearance: moderate distress, alert Eye Exam: PERRL/EOMI, eyes nml inspection Ears, Nose, Throat Exam: normal ENT inspection, pharynx normal, moist mucous membranes Neck Exam: normal inspection, non-tender, supple, full range of motion Respiratory Exam: normal breath sounds, lungs clear, No respiratory distress Cardiovascular Exam: regular rate/rhythm, normal heart sounds Gastrointestinal/Abdomen Exam: soft, No tenderness, No mass Back Exam: normal inspection, normal range of motion, No CVA tenderness, No vertebral tenderness Extremity Exam: normal inspection, normal range of motion, pelvis stable Neurologic Exam: alert, oriented x 3, cooperative, normal mood/affect, nml cerebellar function, sensation nml, No motor deficits Skin Exam: normal color, warm, dry SpO2: 95 - Course Nursing assessment & vital signs reviewed: Yes EKG Interpreted by Me: RATE (100), A-fib, Other (Pacer) - CT Exams Abdomen/Pelvis CT Interpretation: Tele-radiologist Report Ordered Tests: Active Orders 24 hr Category Date Time Status Clean Catch Urine Specimen STAT Care 11/27/22 13:56 Active EKG-ER Only STAT Care 11/27/22 13:56 Active IV Insertion STAT Care 11/27/22 13:56 Active ABDOMEN AND PELVIS W/0 CONTRAS [CT] Stat Exams 11/27/22 13:56 Completed CHEST 1 VIEW (PORTABLE) Stat Exams 11/27/22 13:56 Completed AMYLASE Stat Lab 11/27/22 14:35 Completed CBC W DIFF Stat Lab 11/27/22 13:56 Completed CMP Stat Lab 11/27/22 14:35 Completed CULTURE,URINE Stat Lab 11/27/22 16:51 Received LIPASE Stat Lab 11/27/22 14:35 Completed Lactic Acid Stat Lab 11/27/22 13:56 Completed TROPONIN Q4H Lab 11/27/22 14:35 Completed TROPONIN Q4H Lab 11/27/22 18:00 Ordered TROPONIN Q4H Lab 11/27/22 22:00 Ordered UA W/RFX UR CULTURE Stat Lab 11/27/22 16:51 Completed Urine Triage Profile Stat Lab 11/27/22 16:51 Received Medication Summary Discontinued Medications Generic Name Dose Route Start Last Admin Trade Name Freq PRN Reason Stop Dose Admin Fentanyl Citrate 50 mcg 11/27/22 13:56 11/27/22 14:21 Fentanyl Citrate 100 Mcg/2 Ml* Vial IV 11/27/22 13:57 50 mcg STAT ONE Administration Fentanyl Citrate Confirm 11/27/22 14:17 Fentanyl Citrate 100 Mcg/2 Ml* Vial Administered 11/27/22 14:18 Dose 100 mcg .ROUTE .STK-MED ONE Sodium Chloride 1,000 mls @ 999 mls/hr 11/27/22 13:56 11/27/22 14:21 Sodium Chloride 0.9% 1000 Ml IV 11/27/22 14:56 125 mls/hr .Q1H1M STA Administration Sodium Chloride Confirm 11/27/22 14:17 Sodium Chloride 0.9% 1000 Ml Administered 11/27/22 14:18 Dose 1,000 mls @ ud .ROUTE .STK-MED ONE Metoclopramide HCl Confirm 11/27/22 15:02 Metoclopramide Hcl 10 Mg/2 Ml Vial Administered 11/27/22 15:03 Dose 10 mg .ROUTE .STK-MED ONE Metoclopramide HCl 10 mg 11/27/22 15:10 11/27/22 15:12 Metoclopramide Hcl 10 Mg/2 Ml Vial IV 11/27/22 15:11 10 mg STAT ONE Administration Ondansetron HCl 4 mg 11/27/22 13:56 07/12/23 14:21 Ondansetron Hcl 4 Mg/2 Ml Vial IV 11/27/22 13:57 4 mg STAT ONE Administration Ondansetron HCl Confirm 11/27/22 14:16 Ondansetron Hcl 4 Mg/2 Ml Vial Administered 11/27/22 14:17 Dose 4 mg .ROUTE .STK-MED ONE Lab/Rad Data: Laboratory Result Diagrams 11/27/22 13:56 11/27/22 14:35 Laboratory Results 11/27/22 11/27/22 11/27/22 Range/Units 16:51 14:35 13:56 WBC (4.0-10.5) x10^3/uL RBC (4.1-5.4) x10^6/uL Hgb (12.0-16.0) g/dL Hct (35-47) % MCV (78-100) fL MCH (26-32) pg MCHC (32-36) g/dL RDW (11.5-14.0) % Plt Count (150-450) x10^3/uL MPV (7.5-11.0) fL Gran % (36.0-66.0) % Immature Gran % (Auto) (0.00-0.4) % Nucleat RBC Rel Count (0.00-0.1) % Eos # (Auto) (0-0.5) x10^3/uL Immature Gran # (Auto) (0.00-0.03) x10^3u/L Absolute Lymphs (auto) (1.0-4.6) x10^3/uL Absolute Monos (auto) (0.0-1.3) x10^3/uL Absolute Nucleated RBC (0.00-0.01) x10^3u/L Lymphocytes % (24.0-44.0) % Monocytes % (0.0-12.0) % Eosinophils % (0.00-5.0) % Basophils % (0.0-0.4) % Absolute Granulocytes (1.4-6.9) x10^3/uL Basophils # (0-0.4) x10^3/uL Sodium 133 L (137-145) mmol/L Potassium 4.3 (3.5-5.1) mmol/L Chloride 100 (98-107) mmol/L Carbon Dioxide 19 L (22-30) mmol/L Anion Gap 18.9 H (5-15) MEQ/L BUN 30 H (7-17) mg/dL Creatinine 2.87 H (0.52-1.04) mg/dL Estimated GFR 17.5 ML/MIN Glucose 106 (74-106) mg/dL Lactic Acid 1.2 (0.4-2.0) Calcium 8.8 (8.4-10.2) mg/dL Total Bilirubin 1.20 (0.2-1.3) mg/dL AST 29 (14-36) U/L ALT 8 (0-35) U/L Alkaline Phosphatase 98 (38-126) U/L Troponin I < 0.012 (0.000-0.034) ng/mL Serum Total Protein 8.7 H (6.3-8.2) g/dL Albumin 4.1 (3.5-5.0) g/dL Amylase 53 (30-110) U/L Lipase 75 (23-300) U/L Urine Color Dark Yellow A (Yellow) Urine Appearance Cloudy A (Clear) Urine pH 5.0 (4.6-8.0) Ur Specific [place] 1.025 (1.005-1.030) Urine Protein 100 A (Negative) Urine Glucose (UA) Negative (Negative) mg/dL Urine Ketones Trace A (Negative) Urine Blood Negative (Negative) Urine Nitrite Negative (Negative) Urine Bilirubin Negative (Negative) Urine Urobilinogen 1.0 A (0.2) mg/dL Ur Leukocyte Esterase Negative (Negative) U Hyaline Cast (Auto) 20-50 (0-2) /LPF Urine Microscopic RBC 6-10 A (0-5) /HPF Urine Microscopic WBC 3-5 (0-5) /HPF Ur Epithelial Cells Few (None Seen) /HPF Urine Bacteria None Seen (None Seen) /HPF Urine Culture Reflexed YES (NO) Slides for Path Review 11/27/22 Range/Units 13:56 WBC 6.9 (4.0-10.5) x10^3/uL RBC 3.51 L (4.1-5.4) x10^6/uL Hgb 9.0 L (12.0-16.0) g/dL Hct 32.5 L (35-47) % MCV 92.6 (78-100) fL MCH 25.6 L (26-32) pg MCHC 27.7 L (32-36) g/dL RDW 16.1 H (11.5-14.0) % Plt Count 314 (150-450) x10^3/uL MPV 9.6 (7.5-11.0) fL Gran % 79.9 H (36.0-66.0) % Immature Gran % (Auto) 0.4 (0.00-0.4) % Nucleat RBC Rel Count 0.0 (0.00-0.1) % Eos # (Auto) 0.01 (0-0.5) x10^3/uL Immature Gran # (Auto) 0.03 (0.00-0.03) x10^3u/L Absolute Lymphs (auto) 1.06 (1.0-4.6) x10^3/uL Absolute Monos (auto) 0.26 (0.0-1.3) x10^3/uL Absolute Nucleated RBC 0.00 (0.00-0.01) x10^3u/L Lymphocytes % 15.4 L (24.0-44.0) % Monocytes % 3.8 (0.0-12.0) % Eosinophils % 0.1 (0.00-5.0) % Basophils % 0.4 (0.0-0.4) % Absolute Granulocytes 5.48 (1.4-6.9) x10^3/uL Basophils # 0.03 (0-0.4) x10^3/uL Sodium (137-145) mmol/L Potassium (3.5-5.1) mmol/L Chloride (98-107) mmol/L Carbon Dioxide (22-30) mmol/L Anion Gap (5-15) MEQ/L BUN (7-17) mg/dL Creatinine (0.52-1.04) mg/dL Estimated GFR ML/MIN Glucose (74-106) mg/dL Lactic Acid (0.4-2.0) Calcium (8.4-10.2) mg/dL Total Bilirubin (0.2-1.3) mg/dL AST (14-36) U/L ALT (0-35) U/L Alkaline Phosphatase (38-126) U/L Troponin I (0.000-0.034) ng/mL Serum Total Protein (6.3-8.2) g/dL Albumin (3.5-5.0) g/dL Amylase (30-110) U/L Lipase (23-300) U/L Urine Color (Yellow) Urine Appearance (Clear) Urine pH (4.6-8.0) Ur Specific [place] (1.005-1.030) Urine Protein (Negative) Urine Glucose (UA) (Negative) mg/dL Urine Ketones (Negative) Urine Blood (Negative) Urine Nitrite (Negative) Urine Bilirubin (Negative) Urine Urobilinogen (0.2) mg/dL Ur Leukocyte Esterase (Negative) U Hyaline Cast (Auto) (0-2) /LPF Urine Microscopic RBC (0-5) /HPF Urine Microscopic WBC (0-5) /HPF Ur Epithelial Cells (None Seen) /HPF Urine Bacteria (None Seen) /HPF Urine Culture Reflexed (NO) Slides for Path Review YES - Progress Progress: improved Progress Note: 11/27/22 18:01 Patient has no further vomiting and he request discharge they were instructed that if the vomiting returned they would probably be best off seeking care at her hospital in [facility] Making - Risk of complications The pt has a mod risk of morbidity or mortality based on: Need for prescription drug management - Departure Departure Disposition: Home Clinical Impression: Nausea & vomiting Condition: Stable Critical Care Time: No Referrals: WAQAR CASTRO [Primary Care Provider] - Follow up/PCP as directed Prescriptions: Promethazine HCl 25 mg [Phenergan 25 mg] 25 mg PO Q8H PRN PRN #10 tablet PRN Reason: Nausea/Vomiting
[2022-11-27 15:30] LABS: ALBUMIN 4.1 g/dL (3.5-5.0); ALKALINE PHOSPHATASE 98 U/L (38-126); AMYLASE 53 U/L (30-110); ANION GAP 18.9 MEQ/L (5-15); BLOOD UREA NITROGEN 30 mg/dL (7-17); CHLORIDE 100 mmol/L (98-107); Calcium 8.8 mg/dL (8.4-10.2); Carbon Dioxide 19 mmol/L (22-30); Creatinine 1 2.87 mg/dL (0.52-1.04); EST GLOMERULAR FILTRATION RATE 17.5 ML/MIN; Glucose 106 mg/dL (74-106); LIPASE 75 U/L (23-300); Potassium 4.3 mmol/L (3.5-5.1); SGOT/AST 29 U/L (14-36); SGPT/ALT 8 U/L (0-35); SODIUM 133 mmol/L (137-145); Total Protein 8.7 g/dL (6.3-8.2)
--- NOTE | 2022-11-27 15:34 | XRAY ---
CLINICAL HISTORY:pain n v COMPARISON:None. TECHNIQUE:X ray of the chest, AP view. FINDINGS: Cardiomegaly showing biventricular configuration. Atelectatic bands seen in both lower zones. Prominent vascular markings in lower zones mostly due to vascular congestion. The tracheal lucency is deviated to the right. The malu are normal in size and position. Increased width of the vascular pedicle. No major collapse or consolidation. A pacemaker is noted, with pacemaker leads in satisfactory position. Right costophrenic angle appear clear. Left costophrenic angle is not clearly delineated as obscured by the cardiac pacemaker. Slightly elevated left hemidiaphragm probably due to gas distended splenic flexure of colon. Unremarkable thoracic bony cage with no definite fractures detected. IMPRESSION: Cardiomegaly showing biventricular configuration and vascular congestion. Further cardiac evaluation is recommended Electronically Signed by: Sonja Nicholas MD. (11/27/2022 14:32:52 [employer] ROOM SUPERVISOR)
[2022-11-27 16:52] VITALS: PULSE 100
[2022-11-27 17:10] LABS: ADD URINE CULTURE? YES (NO); Appearance Cloudy (Clear); Bacteria None Seen /HPF (None Seen); Bilirubin Negative (Negative); Blood Negative (Negative); Epithelial Cells Few /HPF (None Seen); Glucose, Urine Negative (Negative); Hyaline Casts 20-50 /LPF (0-2); Ketones Trace (Negative); Leukocyte Esterase Negative (Negative); Nitrite Negative (Negative); Protein,Urine Dip 100 (Negative); Specific Gravity 1.025 (1.005-1.030)
[2022-11-27 17:11] VITALS: BP 141/82
--- NOTE | 2022-11-27 17:47 | XRAY ---
CLINICAL HISTORY:pain n v COMPARISON:Previous CT study dated 11/02/2022. TECHNIQUE:CT scan of the abdomen and pelvis was performed without IV contrast. Coronal and sagittal reconstructive images were also obtained. FINDINGS: Scan through the lower chest reveals moderate cardiomegaly. As compared to previous CT study, the current study revealed: -Redemonestration of small bowel loops dilatation with air fluid levels to the same degree (average 5.5 cm) down to the level of segmoid with no evident mass lesions. -Cholecystectomy clips noted. -Aortic IVAR. -Left renal dense / hemorrhagic cyst. -No ascites. -No detecetd pelvi-abdomninal masses or collections. IMPRESSION: Stationary course of bowel dilatation and signs of intestinal obstruction since prior study. No obvious free fluid. Electronically Signed by: Sonja Nicholas MD. (11/27/2022 16:44:59 ACID POLYMERIZATION OPERATOR)
[2022-11-27 18:06] VITALS: O2SAT 95
[2022-11-27 18:08] LABS: Amphetamine,Urine NEGATIVE (NEGATIVE); Barbiturate,Urine NEGATIVE (NEGATIVE); Benzodiazepine,Urine NEGATIVE (NEGATIVE); Cocaine,Urine NEGATIVE (NEGATIVE); Methadone,Urine NEGATIVE (NEGATIVE); Opiate,Urine POSITIVE (NEGATIVE); PCP,Urine NEGATIVE (NEGATIVE); THC,Urine NEGATIVE (NEGATIVE)
== END 2022-11-27 18:35 | disposition home or self-care (01) ==
LOC: ED 13:47
DX: R11.2 Nausea with vomiting, unspecified (principal); R10.9 Unspecified abdominal pain; I11.0 Hypertensive heart disease with heart failure; I50.9 Heart failure, unspecified; Z79.899 Other long term (current) drug therapy
CPT/HCPCS: 36000; 36415; 51702; 71045; 74176; 80053; 80307; 81001; 82150; 83605; 83690; 84484; 85025; 87086; 93005; 96360; 96374; 96375; 99284; J1642; J2405; J3010

== ENCOUNTER 2022-12-22 21:38 | Observation (INO) | payer MEDICARE ==
[2022-12-22] MEDS ORDERED: NARCAN 2 MG/2 ML ONE (22:19)
[2022-12-22 23:18] VITALS: PULSE 100
[2022-12-22] MEDS ORDERED: Narcan 0.4 MG/ML IV ONE (23:26)
--- NOTE | 2022-12-22 23:29 | ERPHSYRPT ---
- History of Present Illness Time Seen by Provider: 12/22/22 23:33 Source: patient, family Exam Limitations: clinical condition Patient Subjective Stated Complaint: per when he left for [place]into earlier this evening she was at her baseline mentation but had been intermittently more tired than normally and kept falling asleep "every five minutes". she was complaining of abdominal for several days that was increased today so she didn't go to shinto with him. he reports when he returned he couldn't keep her awake and she was confused, couldn't stand up, and was speaking incomprehensible. Triage Nursing Assessment: pt wheeled to room 8 per staff, pt was slumped to right in chair and with her head down and eyes closed. only arousable to sternal rub then only opens eyes with blank stare, grimaces, moans, then closes eyes again. when she is awake enough after a sternal rub to talk she is speaking nonsensically and with with garbled speech. blood glucose checked per fingerstick at 2159 with result of 122. initial BP slightly low with SBP in 90's. EKG obtained with result of AV paced with BBB with rate of 100. PIV placed and RN requested MD to come to bedside to evaluate pt and asked if narcan could be administered. MD at bedside to evaluate/ assess pt and order was rec'd for 2mg IV narcan. within 5 minutes of narcan administration pt was wide awake, alert and oriented times three, and very agitated, screaming at staff to let her go home. she kept covering her face with the blanket and asked to be left along. after pt awake pupils 3mm equal, round, and reactive to light. able to move all extremities, able to speak in complete sentences, with resp even and unlabored. lung sounds clear anterior throughout, abd soft, nondistended, tender to touch in right lower quad, with positive bowel sounds in all quads. pt reports that she had a liquid brown stool 3 days ago and hasn't had any stool since that time. she also states that right after her went to shinto she started having a generalized headache that remains. pt is unable to describe pain but rates it 9/10. heart sounds are present, regular, and normal. bilat radial and pedal pulses palpable and equal. 3+ pitting edema noted from just below bilat knees down to ankles. clear liquid weeping out of bilat lower legs. bilat hands and feet with normal cap refill, color, and sensation. skin slightly jaundice in color. oxygen 3L per NC was applied while pt was sedated due to low oxygen saturation, once pt woke up she was yelling to take of the oxygen, at this time her oxygen saturation level was 99% so NC was removed. after 15mins oxygen saturation remained 97-99% on Room Air. Physician History: pt may have taken too much pain meds this evening. she was minimally responsive in ER and we gave Narcon which woke her up immediately. No hx trauma. was in hospital here last week for abd pain. She has a Hx of afib and CHF but no CP or SOBreath at this time. She is on Elliquis for the AFib CVA prevention as well as prior DVT. 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 There may have been some blood in the stool intermit the past 3 weeks, but HGB was stable until the slight drop found today. No visible rectal blood today. chest is clear, abd soft nontender without peritoneal signs. served as independent source for HX in ER. Discussed risks/benefits of labs CBC, CMP, UA, TSH, T4, Trop EKG, Lipase, Amylase, and pt and spouse which to proceed , these are ordered and later discussed with pt and spouse. Discussed need for narcan with spouse and given. Timing/Duration: today, improved Severity: moderate Associated Symptoms: other (chronic pain) Allergies/Adverse Reactions: baclofen Allergy (Severe, Verified 12/22/22 21:59) Difficulty Breathing pt states stopped breathing Sulfa (Sulfonamide Antibiotics) [Sulfa(Sulfonamide Antibiotics)] Allergy (Severe, Verified 12/22/22 21:59) Nausea and Vomiting adhesive Allergy (Mild, Verified 12/22/22 21:59) Blisters codeine [Codeine] Allergy (Mild, Verified 12/22/22 21:59) Nausea and Vomiting iron Adverse Reaction (Intermediate, Verified 12/22/22 21:59) Nausea oxycodone [From Percocet] Adverse Reaction (Intermediate, Verified 12/22/22 21:59) Vomiting Home Medications: Tizanidine HCl 4 mg PO TID PRN PRN 11/10/17 [History] Furosemide [Lasix] 40 mg PO DAILY PRN PRN 03/09/18 [History] Promethazine HCl 25 mg [Phenergan 25 mg] 25 mg PO Q6H PRN PRN 01/14/19 [Hi story] Levothyroxine Sodium [Synthroid] 25 mcg PO DAILY 04/29/19 [History] Nitroglycerin 0.4 mg SL Q5MIN PRN MR X 3 PRN 04/29/19 [History] Morphine Sulfate [Morphine Sulfate ER] 30 mg PO BID 07/30/21 [History] Famotidine 40 mg PO DAILY 03/12/22 [History] Amiodarone HCl [Pacerone] 100 mg PO DAILY 08/28/22 [History] Hx Tetanus, Diphtheria Vaccination/Date Given: Yes Hx Influenza Vaccination/Date Given: Yes Hx Pneumococcal Vaccination/Date Given: Yes Immunizations Up to Date: Yes Travel Risk - International Travel Have you traveled outside of the country in past 3 weeks: No - Coronavirus Screening Are you exhibiting any of the following symptoms?: No Close contact with a COVID-19 positive Pt in past 14-21 Days: No - Vaccine Status Have you recieved a Covid-19 vaccination: No - Review of Systems Constitutional: No Fever, No Chills Eyes: No Symptoms Ears, Nose, & Throat: No Symptoms Respiratory: No Cough, No Dyspnea Cardiac: No Chest Pain, No Edema, No Syncope Abdominal/Gastrointestinal: No Abdominal Pain, No Nausea, No Vomiting, No Diarrhea Genitourinary Symptoms: No Dysuria Musculoskeletal: No Back Pain, No Neck Pain Skin: No Rash Neurological: No Dizziness, No Focal Weakness, No Sensory Changes Psychological: No Symptoms Endocrine: No Symptoms Hematologic/Lymphatic: No Symptoms Immunological/Allergic: No Symptoms All Other Systems: Reviewed and Negative - Past Medical History Pertinent Past Medical History: Yes Neurological History: Migraines, Stroke ENT History: No Pertinent History Cardiac History: Arrhythmia, Congestive Heart Failure, Deep Vein Thrombosis, Hypertension, Myocardial Infarction (NM) Respiratory History: Asthma Endocrine Medical History: Hypothyroidism, Thyroid Cancer Musculoskeletal History: Degenerative Disk Disease, Other GI Medical History: GERD, Hernia, Other History: Renal Disease, Other Psycho-Social History: No Pertinent History Female Reproductive Disorders: Endometriosis Other Medical History: PMHX: CARDIAC CATH, INTERNAL PACEMAKER/DEFIB, COLON RESECTION, HERNIA SX, BACK FUSION, hotn - Past Surgical History Past Surgical History: Yes Neuro Surgical History: No Pertinent History Cardiac: Cardiac Catheterization, Internal Defibrillator, Pacemaker, Other Respiratory: No Pertinent History Gastrointestinal: Appendectomy, Cholecystectomy, Colon Resection, Hernia Repair, Other Genitourinary: No Pertinent History Musculoskeletal: Orthopedic Surgery Female Surgical History: Hysterectomy Other Surgical History: Hernia repair with scar tissue removal and colostomy reversal at in [place] by Dr. Branch on 07/01/22, COLON RESECTION, BACK FUSION, THYROID REMOVED and Parotid gland removed, ankle surgery,. OCTOBER 2018 CAROTIDECTOMY AND LYMPH NODE REMOVAL ON RIGHT SIDE, "filter for blood clots 2018" - Social History Smoking Status: Never smoker Exposure to second hand smoke: No Alcohol Use: None Drug Use: none Patient Lives Alone: No (Kaveh ) Significant Family History: heart disease, cancer, diabetes - Nursing Vital Signs Nursing Vital Signs: Initial Vital Signs Temperature 97.2 F 12/22/22 22:00 Pulse Rate 100 H 12/22/22 22:00 Respiratory Rate 31 H 12/22/22 22:00 Blood Pressure 97/70 12/22/22 22:00 O2 Sat by Pulse Oximetry 93 L 12/22/22 22:00 Pain Scale Pain Intensity 0 - Physical Exam General Appearance: moderate distress (until awakened after Narcan), alert Eye Exam: PERRL/EOMI, eyes nml inspection Ears, Nose, Throat Exam: normal ENT inspection, TMs normal, pharynx normal, moist mucous membranes Neck Exam: normal inspection, non-tender, supple, full range of motion Respiratory Exam: normal breath sounds, lungs clear, No respiratory distress Cardiovascular Exam: regular rate/rhythm, normal heart sounds, normal peripheral pulses Gastrointestinal/Abdomen Exam: soft, normal bowel sounds, No tenderness, No mass Pelvic Exam: deferred Rectal Exam: deferred Back Exam: normal inspection, normal range of motion, No CVA tenderness, No vert ebral tenderness Extremity Exam: normal inspection, normal range of motion, pelvis stable Neurologic Exam: alert, oriented x 3, cooperative, normal mood/affect, nml cerebellar function, nml station & gait, sensation nml, No motor deficits Skin Exam: normal color, warm, dry, No rash Lymphatic Exam: No adenopathy SpO2 Interpretation: normal SpO2: 98 O2 Delivery: Room Air - Course Nursing assessment & vital signs reviewed: Yes EKG Interpreted by Me: Non-specific ST Changes, Other (paced rythem) - CT Exams Abdomen/Pelvis CT Interpretation: Tele-radiologist Report, Other (dilated loops of bowel with out change) Ordered Tests: Active Orders 24 hr Category Date Time Status EKG-ER Only STAT Care 12/22/22 23:24 Active IV Insertion STAT Care 12/22/22 23:24 Active ABDOMEN AND PELVIS W/0 CONTRAS [CT] Stat Exams 12/23/22 00:24 Completed AMYLASE Stat Lab 12/22/22 22:40 Completed CBC W DIFF Stat Lab 12/22/22 22:40 Completed CMP Stat Lab 12/22/22 22:40 Completed CULTURE,URINE Stat Lab 12/23/22 01:41 Received LIPASE Stat Lab 12/22/22 22:40 Completed Lactic Acid Stat Lab 12/22/22 23:24 Completed POCT GLUCOSE Stat Lab 12/22/22 21:59 Completed T4 (Thyroxine) Stat Lab 12/22/22 23:30 Completed TROPONIN Q4H Lab 12/22/22 22:40 Completed TROPONIN Q4H Lab 12/23/22 03:30 Ordered TROPONIN Q4H Lab 12/23/22 07:30 Ordered TSH [TSH, 3RD Generation] Stat Lab 12/22/22 23:30 Completed UA W/RFX UR CULTURE Stat Lab 12/23/22 01:41 Completed Medication Summary Generic Name Dose Route Start Last Admin Trade Name Freq PRN Reason Stop Dose Admin Sodium Chloride 1,000 mls @ 50 mls/hr 12/22/22 23:30 12/22/22 23:43 Sodium Chloride 0.9% 1000 Ml IV 01/21/23 23:29 Not Given .Q20H JUSTIN Discontinued Medications Generic Name Dose Route Start Last Admin Trade Name Freq PRN Reason Stop Dose Admin Naloxone HCl Confirm 12/22/22 22:19 Naloxone Hcl 2mg/2 Ml 2 Mg/2 Ml Syr Administered 12/22/22 22:20 Dose 2 mg .ROUTE .STK-MED ONE Naloxone HCl 2 mg 12/22/22 23:26 12/22/22 23:45 Naloxone Hcl 0.4 Mg/Ml Ml IV 12/22/22 23:27 Not Given STAT ONE Naloxone HCl 2 mg 12/22/22 23:42 12/22/22 22:20 Naloxone Hcl 2mg/2 Ml 2 Mg/2 Ml Syr IV 12/22/22 23:43 2 mg STAT ONE Administration Lab/Rad Data: Laboratory Result Diagrams 12/22/22 22:40 12/22/22 22:40 Laboratory Results 12/23/22 12/23/22 12/22/22 Range/Units 01:41 00:09 23:30 WBC (4.0-10.5) x10^3/uL RBC (4.1-5.4) x10^6/uL Hgb (12.0-16.0) g/dL Hct (35-47) % MCV (78-100) fL MCH (26-32) pg MCHC (32-36) g/dL RDW (11.5-14.0) % Plt Count (150-450) x10^3/uL MPV (7.5-11.0) fL Gran % (36.0-66.0) % Immature Gran % (Auto) (0.00-0.4) % Nucleat RBC Rel Count (0.00-0.1) % Eos # (Auto) (0-0.5) x10^3/uL Immature Gran # (Auto) (0.00-0.03) x10^3u/L Absolute Lymphs (auto) (1.0-4.6) x10^3/uL Absolute Monos (auto) (0.0-1.3) x10^3/uL Absolute Nucleated RBC (0.00-0.01) x10^3u/L Lymphocytes % (24.0-44.0) % Monocytes % (0.0-12.0) % Eosinophils % (0.00-5.0) % Basophils % (0.0-0.4) % Absolute Granulocytes (1.4-6.9) x10^3/uL Basophils # (0-0.4) x10^3/uL Sodium (137-145) mmol/L Potassium (3.5-5.1) mmol/L Chloride (98-107) mmol/L Carbon Dioxide (22-30) mmol/L Anion Gap (5-15) MEQ/L BUN (7-17) mg/dL Creatinine (0.52-1.04) mg/dL Estimated GFR ML/MIN Glucose (74-106) mg/dL POC Glucometer (74 to 106) mg/dL Lactic Acid 1.4 (0.4-2.0) Calcium (8.4-10.2) mg/dL Total Bilirubin (0.2-1.3) mg/dL AST (14-36) U/L ALT (0-35) U/L Alkaline Phosphatase (38-126) U/L Troponin I (0.000-0.034) ng/mL Serum Total Protein (6.3-8.2) g/dL Albumin (3.5-5.0) g/dL Amylase (30-110) U/L Lipase (23-300) U/L Thyroxine (T4) > 24.0 H (5.53-10.96) ug/dL TSH 3rd Generation (0.47-4.68) mIU/L Urine Color Dark Yellow A (Yellow) Urine Appearance Turbid A (Clear) Urine pH 5.5 (4.6-8.0) Ur Specific [place] 1.020 (1.005-1.030) Urine Protein 100 A (Negative) Urine Glucose (UA) Negative (Negative) mg/dL Urine Ketones 15 A (Negative) Urine Blood Moderate A (Negative) Urine Nitrite Negative (Negative) Urine Bilirubin Negative (Negative) Urine Urobilinogen 1.0 A (0.2) mg/dL Ur Leukocyte Esterase Large A (Negative) U Hyaline Cast (Auto) 11-20 (0-2) /LPF Urine Microscopic RBC >100 A (0-5) /HPF Urine Microscopic WBC >100 A (0-5) /HPF Ur Epithelial Cells Many A (None Seen) /HPF Urine Bacteria Many A (None Seen) /HPF Urine Culture Reflexed YES (NO) 12/22/22 12/22/22 12/22/22 Range/Units 23:30 22:40 22:40 WBC (4.0-10.5) x10^3/uL RBC (4.1-5.4) x10^6/uL Hgb (12.0-16.0) g/dL Hct (35-47) % MCV (78-100) fL MCH (26-32) pg MCHC (32-36) g/dL RDW (11.5-14.0) % Plt Count (150-450) x10^3/uL MPV (7.5-11.0) fL Gran % (36.0-66.0) % Immature Gran % (Auto) (0.00-0.4) % Nucleat RBC Rel Count (0.00-0.1) % Eos # (Auto) (0-0.5) x10^3/uL Immature Gran # (Auto) (0.00-0.03) x10^3u/L Absolute Lymphs (auto) (1.0-4.6) x10^3/uL Absolute Monos (auto) (0.0-1.3) x10^3/uL Absolute Nucleated RBC (0.00-0.01) x10^3u/L Lymphocytes % (24.0-44.0) % Monocytes % (0.0-12.0) % Eosinophils % (0.00-5.0) % Basophils % (0.0-0.4) % Absolute Granulocytes (1.4-6.9) x10^3/uL Basophils # (0-0.4) x10^3/uL Sodium 137 (137-145) mmol/L Potassium 3.9 (3.5-5.1) mmol/L Chloride 102 (98-107) mmol/L Carbon Dioxide 22 (22-30) mmol/L Anion Gap 16.8 H (5-15) MEQ/L BUN 27 H (7-17) mg/dL Creatinine 1.93 H (0.52-1.04) mg/dL Estimated GFR 27.6 ML/MIN Glucose 123 H (74-106) mg/dL POC Glucometer (74 to 106) mg/dL Lactic Acid (0.4-2.0) Calcium 9.1 (8.4-10.2) mg/dL Total Bilirubin 1.70 H (0.2-1.3) mg/dL AST 27 (14-36) U/L ALT 11 (0-35) U/L Alkaline Phosphatase 111 (38-126) U/L Troponin I < 0.012 (0.000-0.034) ng/mL Serum Total Protein 7.8 (6.3-8.2) g/dL Albumin 4.0 (3.5-5.0) g/dL Amylase 41 (30-110) U/L Lipase 113 (23-300) U/L Thyroxine (T4) (5.53-10.96) ug/dL TSH 3rd Generation 1.080 (0.47-4.68) mIU/L Urine Color (Yellow) Urine Appearance (Clear) Urine pH (4.6-8.0) Ur Specific [place] (1.005-1.030) Urine Protein (Negative) Urine Glucose (UA) (Negative) mg/dL Urine Ketones (Negative) Urine Blood (Negative) Urine Nitrite (Negative) Urine Bilirubin (Negative) Urine Urobilinogen (0.2) mg/dL Ur Leukocyte Esterase (Negative) U Hyaline Cast (Auto) (0-2) /LPF Urine Microscopic RBC (0-5) /HPF Urine Microscopic WBC (0-5) /HPF Ur Epithelial Cells (None Seen) /HPF Urine Bacteria (None Seen) /HPF Urine Culture Reflexed (NO) 12/22/22 12/22/22 Range/Units 22:40 21:59 WBC 5.9 (4.0-10.5) x10^3/uL RBC 3.22 L (4.1-5.4) x10^6/uL Hgb 8.2 L (12.0-16.0) g/dL Hct 27.8 L (35-47) % MCV 86.3 (78-100) fL MCH 25.5 L (26-32) pg MCHC 29.5 L (32-36) g/dL RDW 17.5 H (11.5-14.0) % Plt Count 418 (150-450) x10^3/uL MPV 9.8 (7.5-11.0) fL Gran % 73.5 H (36.0-66.0) % Immature Gran % (Auto) 0.3 (0.00-0.4) % Nucleat RBC Rel Count 0.0 (0.00-0.1) % Eos # (Auto) 0.01 (0-0.5) x10^3/uL Immature Gran # (Auto) 0.02 (0.00-0.03) x10^3u/L Absolute Lymphs (auto) 1.06 (1.0-4.6) x10^3/uL Absolute Monos (auto) 0.42 (0.0-1.3) x10^3/uL Absolute Nucleated RBC 0.00 (0.00-0.01) x10^3u/L Lymphocytes % 18.1 L (24.0-44.0) % Monocytes % 7.2 (0.0-12.0) % Eosinophils % 0.2 (0.00-5.0) % Basophils % 0.7 (0.0-0.4) % Absolute Granulocytes 4.31 (1.4-6.9) x10^3/uL Basophils # 0.04 (0-0.4) x10^3/uL Sodium (137-145) mmol/L Potassium (3.5-5.1) mmol/L Chloride (98-107) mmol/L Carbon Dioxide (22-30) mmol/L Anion Gap (5-15) MEQ/L BUN (7-17) mg/dL Creatinine (0.52-1.04) mg/dL Estimated GFR ML/MIN Glucose (74-106) mg/dL POC Glucometer 122 H (74 to 106) mg/dL Lactic Acid (0.4-2.0) Calcium (8.4-10.2) mg/dL Total Bilirubin (0.2-1.3) mg/dL AST (14-36) U/L ALT (0-35) U/L Alkaline Phosphatase (38-126) U/L Troponin I (0.000-0.034) ng/mL Serum Total Protein (6.3-8.2) g/dL Albumin (3.5-5.0) g/dL Amylase (30-110) U/L Lipase (23-300) U/L Thyroxine (T4) (5.53-10.96) ug/dL TSH 3rd Generation (0.47-4.68) mIU/L Urine Color (Yellow) Urine Appearance (Clear) Urine pH (4.6-8.0) Ur Specific [place] (1.005-1.030) Urine Protein (Negative) Urine Glucose (UA) (Negative) mg/dL Urine Ketones (Negative) Urine Blood (Negative) Urine Nitrite (Negative) Urine Bilirubin (Negative) Urine Urobilinogen (0.2) mg/dL Ur Leukocyte Esterase (Negative) U Hyaline Cast (Auto) (0-2) /LPF Urine Microscopic RBC (0-5) /HPF Urine Microscopic WBC (0-5) /HPF Ur Epithelial Cells (None Seen) /HPF Urine Bacteria (None Seen) /HPF Urine Culture Reflexed (NO) - Progress Progress: improved, re-examined Progress Note: 12/22/22 23:48 hgb is 8.2 and is lower than previously. now that awake there is general abd tenderness so will recheck CT - pt and fmaily also wish this after discussion of risks/benefits and this is ordered and later results discussed. 12/23/22 02:58 Dr. Rivero the hospitalist was consulted and we discussed with him and the family/pt to observe in hospital checking hemocult and rechecking hgb to see if stable and all agree. We will also continue elliquis after discussion of risk/benefits with all concerned since no clear acute bleed yet. 12/23/22 03:04 We also discussed with family , pt and Dr. Rivero that pt is not yet meeting need for transfusion at this time. Discussed with Dr.: Other (Dr. Fitzpatrick) Will see patient in: hospital (observation) Counseled pt/family regarding: lab results, diagnosis, need for follow-up, rad results Medical Desision Making - Independent Historian Additional History obtained from: Spouse - Discussion of managment Care discussed with:: hospitalist Reviewed:: Test results, Need for additional workup Agreed on:: Treatment plan, need for follow-up, decision to admit, place in obs - Diagnostic Testing Diagnostic test were ordered, analyzed, and reviewed by me: Yes Radiological Interpretation: Teleradiologist Report - Risk of complications The pt has a high risk of morbidity or mortality based on: Decision regarding hospitilization or escalation of hosp level of care - Departure Departure Disposition: Observation Clinical Impression: Chronic renal disease, Elevated serum free T4 level, Decreased hemoglobin, Altered mental status resolved after marlena Condition: Good Critical Care Time: Yes Critical Care Time(excluding separately billable procedures): Critical 30-74 min s (initial critical care of 30 minutes due to altered mental status followed by period of combativeness after narcan due to chronic pain med temporary withdrawal which resolved.) Referrals: WAQAR CASTRO [Primary Care Provider] - Follow up/PCP as directed
[2022-12-22] MEDS ORDERED: Sodium Chloride 0.9% 1000 ML 1,000 ML IV SCH (23:30)
[2022-12-22 23:31] LABS: Absolute Neutrophil Ct (ANC) 4.31 x10^3/uL (1.4-6.9); BASOPHIL % 0.7 % (0.0-0.4); Basophil (Absolute #) 0.04 x10^3/uL (0-0.4); Eosinophil % 0.2 % (0.00-5.0); Eosinophil (Absolute #) 0.01 x10^3/uL (0-0.5); Hematocrit 27.8 % (35-47); Hemoglobin 8.2 g/dL (12.0-16.0); IMMATURE GRAN # 0.02 x10^3u/L (0.00-0.03); IMMATURE GRAN % 0.3 % (0.00-0.4); Lymphocyte (Absolute #) 1.06 x10^3/uL (1.0-4.6); Lymphocytes % 18.1 % (24.0-44.0); Mean Cell Volume 86.3 fL (78-100); Mean Corpuscular Hemoglobin 25.5 pg (26-32); Mean Corpuscular Hgb Concent. 29.5 g/dL (32-36); Mean Platelet Volume 9.8 fL (7.5-11.0); Monocyte (Absolute #) 0.42 x10^3/uL (0.0-1.3); Monocytes % 7.2 % (0.0-12.0); Neutrophil % 73.5 % (36.0-66.0); Platelet Count 418 x10^3/uL (150-450); Red Blood Count 3.22 x10^6/uL (4.1-5.4); Red Cell Distribution Width 17.5 % (11.5-14.0); White Blood Count 5.9 x10^3/uL (4.0-10.5)
[2022-12-22 23:37] LABS: ANION GAP 16.8 MEQ/L (5-15); BILIRUBIN,TOTAL 1.7 mg/dL (0.2-1.3); Calcium 9.1 mg/dL (8.4-10.2); Creatinine 1 1.93 mg/dL (0.52-1.04); EST GLOMERULAR FILTRATION RATE 27.6 ML/MIN; Potassium 3.9 mmol/L (3.5-5.1); Total Protein 7.8 g/dL (6.3-8.2)
[2022-12-22] MEDS ORDERED: NARCAN 2 MG/2 ML IV ONE (23:42)
--- NOTE | 2022-12-23 01:53 | XRAY ---
CLINICAL HISTORY:abd pain and drop Hgb COMPARISON:11/27/2022. TECHNIQUE:CT scan of the abdomen and pelvis was performed without IV contrast. Coronal and sagittal reconstructive images were also obtained. FINDINGS: The scan shows stable dilatation of small bowel loops with air-fluid levels to the same degree (average 5.5 cm). No evidence of perforation. No free fluid is seen. Surgical jaron in the gastric region suggest some partial gastrectomy clips. Cholecystectomy clips noted. Aortic and iliac IVAR. Stable left renal dense/hemorrhagic cyst. Stable appearances of liver, pancreas, spleen, right kidney, and both adrenals without any gross abnormality. No ascites. No detected pelvic-abdominal masses or collections. Uterus is surgically absent. No adnexal or pelvic mass seen. The urinary bladder is unremarkable. A scan through the lower chest reveals moderate cardiomegaly. Visualized spine shows changes of cementoplasty in the lower lumbar spine. Spinal fixation screws at L5-S1. IMPRESSION: 1. Stable dilatation of small bowel loops with air-fluid levels to the same degree (average 5.5 cm). No evidence of perforation. No free fluid is seen. 2. Rest of the findings are stable as mentioned in the body of the report. Electronically Signed by: Sonja Nicholas MD. (12/23/2022 00:52:18 ADMINISTRATIVE AND PROGRAM SPECIALIST)
[2022-12-23 02:02] LABS: ADD URINE CULTURE? YES (NO); Appearance Turbid (Clear); Bacteria Many /HPF (None Seen); Bilirubin Negative (Negative); Blood Moderate (Negative); Epithelial Cells Many /HPF (None Seen); Glucose, Urine Negative (Negative); Ketones 15 (Negative); Leukocyte Esterase Large (Negative); Nitrite Negative (Negative); Ph 5.5 (4.6-8.0); Protein,Urine Dip 100 (Negative); RBC >100 /HPF (0-5); WBC >100 /HPF (0-5)
[2022-12-23] MEDS ORDERED: Zofran 4 MG/2 ML VIAL IV PRN (04:05)
[2022-12-23] MEDS ORDERED: MORPHINE SULFATE 4 MG INJ IV PRN (04:05)
[2022-12-23] MEDS ORDERED: HUMULIN R SQ PRN (04:05)
[2022-12-23] MEDS ORDERED: TIZANIDINE HCL 2 MG PO PRN (04:45)
[2022-12-23] MEDS ORDERED: PHENERGAN 25 MG PO PRN (04:45)
[2022-12-23] MEDS ORDERED: Nitrostat 0.4 MG Tablet SL PRN (04:45)
--- NOTE | 2022-12-23 05:04 | PCM.HP ---
History of Present Illness - Chief Complaint Chief Complaint: decreased hgb, resolved AMS, elevated T4 Date: 12/23/22 History of Present Illness: is a 67 year old female with a history of chronic systolic CHF (EF 40% and follows with Dr. Duarte), CKD (has been referred to Dr. Ricardo), chronic anemia (baseline hemoglobin 9-10), significant recurrent thromboembolic disease with recent PE on Eliquis, colostomy (s/p recent takedown a few months ago by Dr. Branch), chronic pain syndrome on narcotics (follows with Dr. Sanchez) who presented to the ED with altered mental status. Per the patient's , when they left [place] earlier this evening she was at her baseline mentation but had been intermittently more tired than normally and kept falling asleep "every five minutes" later in the evening with difficulty standing or speaking in comprehensible sentences. She denies any recent changes to her pain regimen. She also denies any fevers or chills. In the ED the patient received Narcan with improvement in her mental status. Additionally, her urinalysis revealed evidence of a UTI and she received IV antibiotics. However, her hemoglobin was noted to be below baseline at 8. The patient states that she has noticed "red spots" in her stool for the past "few" (she estimates 3) weeks. She denies hematemesis or melena. She reports chronic leg edema. At the time of my evaluation, she is alert and oriented x 3. - Review of Systems Constitutional: Fatigue, Lethargy Eyes: No Symptoms Ears, Nose, & Throat: No Symptoms Respiratory: No Symptoms Cardiac: Edema Abdominal/Gastrointestinal: Hematochezia Genitourinary Symptoms: No Symptoms Musculoskeletal: Back Pain Skin: No Symptoms Neurological: Speech Changes Psychological: No Symptoms Endocrine: No Symptoms Hematologic/Lymphatic: Anemia Immunological/Allergic: No Symptoms All Other Systems: Reviewed and Negative Medications & Allergies Home Medications: Home Medication List Tizanidine HCl 4 mg PO TID PRN PRN 11/10/17 [History Confirmed 12/22/22] Furosemide [Lasix] 40 mg PO DAILY PRN PRN 03/09/18 [History Confirmed 12/22/22] Promethazine HCl 25 mg [Phenergan 25 mg] 25 mg PO Q6H PRN PRN 01/14/19 [History Confirmed 12/22/22] Levothyroxine Sodium [Synthroid] 300 mcg PO BID 04/29/19 [History Confirmed 12/23/22] Nitroglycerin 0.4 mg SL Q5MIN PRN MR X 3 PRN 04/29/19 [History Confirmed 12/22/22] Apixaban [Eliquis] 5 mg PO BID 1 Days 01/03/20 [Rx Confirmed 12/22/22] Morphine Sulfate [Morphine Sulfate ER] 30 mg PO BID 07/30/21 [History Confirmed 12/22/22] Famotidine 40 mg PO DAILY 03/12/22 [History Confirmed 12/22/22] Metoprolol Succinate 25 mg Xl* [Toprol-Xl 25MG Tablets] 25 mg PO DAILY #30 tab 04/04/22 [Rx Confirmed 12/22/22] Aspirin EC 81 mg [Ecotrin 81 mg] 81 mg PO DAILY #30 tablet 05/21/22 [Rx Confirmed 12/22/22] Atorvastatin Calcium 20 mg PO QHS #30 tablet 05/21/22 [Rx Confirmed 12/22/22] Amiodarone HCl [Pacerone] 100 mg PO DAILY 08/28/22 [History Confirmed 12/22/22] Spironolact/Hydrochlorothiazid [Aldactazide 25-25 Tablet] 12.5 mg PO DAILY 12/23/22 [History Confirmed 12/23/22] Allergies/Adverse Reactions: Allergies Allergy/AdvReac Type Severity Reaction Status Date / Time baclofen Allergy Severe Difficulty Verified 12/22/22 21:59 Breathing Sulfa (Sulfonamide Allergy Severe Nausea and Verified 12/22/22 21:59 Antibiotics) Vomiting [Sulfa(Sulfonamide Antibiotics)] adhesive Allergy Mild Blisters Verified 12/22/22 21:59 codeine [Codeine] Allergy Mild Nausea and Verified 12/22/22 21:59 Vomiting iron AdvReac Intermediate Nausea Verified 12/22/22 21:59 oxycodone [From Percocet] AdvReac Intermediate Vomiting Verified 12/22/22 21:59 - Past Medical History Past Medical History: Yes Neurological History: Migraines, Stroke ENT History: No Pertinent History Cardiac History: Arrhythmia, Congestive Heart Failure, Deep Vein Thrombosis, H ypertension, Myocardial Infarction ([place]) Respiratory History: Asthma Endocrine Medical History: Hypothyroidism, Thyroid Cancer Musculoskelatal History: Degenerative Disk Disease, Other GI Medical History: GERD, Hernia, Other History: Renal Disease, Other Pyscho-Social History: No Pertinent History Reproductive Disorders: Endometriosis Comment: PMHX: CARDIAC CATH, INTERNAL PACEMAKER/DEFIB, COLON RESECTION, HERNIA SX, BACK FUSION, hotn - Past Surgical History Past Surgical History: Yes Neuro Surgical History: No Pertinent History Cardiac History: Cardiac Catheterization, Internal Defibrillator, Pacemaker, Other Respiratory Surgery: No Pertinent History GI Surgical History: Appendectomy, Cholecystectomy, Colon Resection, Hernia Repair, Other Genitourinary Surgical Hx: No Pertinent History Musculskeletal Surgical Hx: Orthopedic Surgery Female Surgical History: Hysterectomy Other Surgical History: Hernia repair with scar tissue removal and colostomy reversal at in [place] by Dr. Branch on 07/01/22, COLON RESECTION, BACK FUSION, THYROID REMOVED and Parotid gland removed, ankle surgery,. OCTOBER 2018 CAROTIDECTOMY AND LYMPH NODE REMOVAL ON RIGHT SIDE, "filter for blood clots 2018" - Social History Smoking Status: Never smoker Exposure to second hand smoke: No Alcohol: None Drug Use: none Significant Family History: heart disease, cancer, diabetes - Physical Exam Vital Signs: Vital Signs - 24 hr Temp Pulse Resp BP BP Pulse Ox 12/23/22 03:30 100 H 18 98/61 98 12/23/22 03:05 98 12/23/22 03:00 100 H 16 104/66 96 12/23/22 02:30 100 H 19 104/64 98 12/23/22 02:00 100 H 14 105/61 97 12/23/22 01:42 100 H 15 111/65 98 12/23/22 00:30 100 H 20 90/54 97 12/23/22 00:00 100 H 18 92/59 99 12/22/22 23:30 100 H 18 115/82 97 12/22/22 23:00 100 H 24 125/94 99 12/22/22 22:40 100 H 33 H 120/80 97 12/22/22 22:30 100 H 21 106/76 99 12/22/22 22:29 97.2 F 100 H 31 H 97/70 93 L 12/22/22 22:25 98 12/22/22 22:05 100 H 20 102/66 96 12/22/22 22:00 97.2 F 100 H 31 H 97/70 89 L General Appearance: no apparent distress, alert Neurologic Exam: alert, oriented x 3, cooperative, technical administrative assistant II-XII nml as tested, normal mood/affect, nml cerebellar function Eye Exam: PERRL/EOMI, eyes nml inspection Ears, Nose, Throat Exam: normal ENT inspection Neck Exam: normal inspection, non-tender, supple, full range of motion Respiratory Exam: normal breath sounds, lungs clear Cardiovascular Exam: regular rate/rhythm, normal heart sounds Gastrointestinal/Abdomen Exam: soft, normal bowel sounds Back Exam: normal range of motion Extremity Exam: normal inspection, normal range of motion Skin Exam: normal color Results - Labs Lab/Micro Results: Lab Results-Last 24 Hours 12/22/22 12/22/22 12/22/22 Range/Units 21:59 22:40 22:40 WBC 5.9 (4.0-10.5) x10^3/uL RBC 3.22 L (4.1-5.4) x10^6/uL Hgb 8.2 L (12.0-16.0) g/dL Hct 27.8 L (35-47) % MCV 86.3 (78-100) fL MCH 25.5 L (26-32) pg MCHC 29.5 L (32-36) g/dL RDW 17.5 H (11.5-14.0) % Plt Count 418 (150-450) x10^3/uL MPV 9.8 (7.5-11.0) fL Gran % 73.5 H (36.0-66.0) % Immature Gran % (Auto) 0.3 (0.00-0.4) % Nucleat RBC Rel Count 0.0 (0.00-0.1) % Eos # (Auto) 0.01 (0-0.5) x10^3/uL Immature Gran # (Auto) 0.02 (0.00-0.03) x10^3u/L Absolute Lymphs (auto) 1.06 (1.0-4.6) x10^3/uL Absolute Monos (auto) 0.42 (0.0-1.3) x10^3/uL Absolute Nucleated RBC 0.00 (0.00-0.01) x10^3u/L Lymphocytes % 18.1 L (24.0-44.0) % Monocytes % 7.2 (0.0-12.0) % Eosinophils % 0.2 (0.00-5.0) % Basophils % 0.7 (0.0-0.4) % Absolute Granulocytes 4.31 (1.4-6.9) x10^3/uL Basophils # 0.04 (0-0.4) x10^3/uL Sodium 137 (137-145) mmol/L Potassium 3.9 (3.5-5.1) mmol/L Chloride 102 (98-107) mmol/L Carbon Dioxide 22 (22-30) mmol/L Anion Gap 16.8 H (5-15) MEQ/L BUN 27 H (7-17) mg/dL Creatinine 1.93 H (0.52-1.04) mg/dL Estimated GFR 27.6 ML/MIN Glucose 123 H (74-106) mg/dL POC Glucometer 122 H (74 to 106) mg/dL Lactic Acid (0.4-2.0) Calcium 9.1 (8.4-10.2) mg/dL Total Bilirubin 1.70 H (0.2-1.3) mg/dL AST 27 (14-36) U/L ALT 11 (0-35) U/L Alkaline Phosphatase 111 (38-126) U/L Troponin I (0.000-0.034) ng/mL Serum Total Protein 7.8 (6.3-8.2) g/dL Albumin 4.0 (3.5-5.0) g/dL Amylase 41 (30-110) U/L Lipase 113 (23-300) U/L Thyroxine (T4) (5.53-10.96) ug/dL TSH 3rd Generation (0.47-4.68) mIU/L Urine Color (Yellow) Urine Appearance (Clear) Urine pH (4.6-8.0) Ur Specific [address] (1.005-1.030) Urine Protein (Negative) Urine Glucose (UA) (Negative) mg/dL Urine Ketones (Negative) Urine Blood (Negative) Urine Nitrite (Negative) Urine Bilirubin (Negative) Urine Urobilinogen (0.2) mg/dL Ur Leukocyte Esterase (Negative) U Hyaline Cast (Auto) (0-2) /LPF Urine Microscopic RBC (0-5) /HPF Urine Microscopic WBC (0-5) /HPF Ur Epithelial Cells (None Seen) /HPF Urine Bacteria (None Seen) /HPF Urine Culture Reflexed (NO) 12/22/22 12/22/22 12/22/22 Range/Units 22:40 23:30 23:30 WBC (4.0-10.5) x10^3/uL RBC (4.1-5.4) x10^6/uL Hgb (12.0-16.0) g/dL Hct (35-47) % MCV (78-100) fL MCH (26-32) pg MCHC (32-36) g/dL RDW (11.5-14.0) % Plt Count (150-450) x10^3/uL MPV (7.5-11.0) fL Gran % (36.0-66.0) % Immature Gran % (Auto) (0.00-0.4) % Nucleat RBC Rel Count (0.00-0.1) % Eos # (Auto) (0-0.5) x10^3/uL Immature Gran # (Auto) (0.00-0.03) x10^3u/L Absolute Lymphs (auto) (1.0-4.6) x10^3/uL Absolute Monos (auto) (0.0-1.3) x10^3/uL Absolute Nucleated RBC (0.00-0.01) x10^3u/L Lymphocytes % (24.0-44.0) % Monocytes % (0.0-12.0) % Eosinophils % (0.00-5.0) % Basophils % (0.0-0.4) % Absolute Granulocytes (1.4-6.9) x10^3/uL Basophils # (0-0.4) x10^3/uL Sodium (137-145) mmol/L Potassium (3.5-5.1) mmol/L Chloride (98-107) mmol/L Carbon Dioxide (22-30) mmol/L Anion Gap (5-15) MEQ/L BUN (7-17) mg/dL Creatinine (0.52-1.04) mg/dL Estimated GFR ML/MIN Glucose (74-106) mg/dL POC Glucometer (74 to 106) mg/dL Lactic Acid (0.4-2.0) Calcium (8.4-10.2) mg/dL Total Bilirubin (0.2-1.3) mg/dL AST (14-36) U/L ALT (0-35) U/L Alkaline Phosphatase (38-126) U/L Troponin I < 0.012 (0.000-0.034) ng/mL Serum Total Protein (6.3-8.2) g/dL Albumin (3.5-5.0) g/dL Amylase (30-110) U/L Lipase (23-300) U/L Thyroxine (T4) > 24.0 H (5.53-10.96) ug/dL TSH 3rd Generation 1.080 (0.47-4.68) mIU/L Urine Color (Yellow) Urine Appearance (Clear) Urine pH (4.6-8.0) Ur Specific [address] (1.005-1.030) Urine Protein (Negative) Urine Glucose (UA) (Negative) mg/dL Urine Ketones (Negative) Urine Blood (Negative) Urine Nitrite (Negative) Urine Bilirubin (Negative) Urine Urobilinogen (0.2) mg/dL Ur Leukocyte Esterase (Negative) U Hyaline Cast (Auto) (0-2) /LPF Urine Microscopic RBC (0-5) /HPF Urine Microscopic WBC (0-5) /HPF Ur Epithelial Cells (None Seen) /HPF Urine Bacteria (None Seen) /HPF Urine Culture Reflexed (NO) 12/23/22 12/23/22 Range/Units 00:09 01:41 WBC (4.0-10.5) x10^3/uL RBC (4.1-5.4) x10^6/uL Hgb (12.0-16.0) g/dL Hct (35-47) % MCV (78-100) fL MCH (26-32) pg MCHC (32-36) g/dL RDW (11.5-14.0) % Plt Count (150-450) x10^3/uL MPV (7.5-11.0) fL Gran % (36.0-66.0) % Immature Gran % (Auto) (0.00-0.4) % Nucleat RBC Rel Count (0.00-0.1) % Eos # (Auto) (0-0.5) x10^3/uL Immature Gran # (Auto) (0.00-0.03) x10^3u/L Absolute Lymphs (auto) (1.0-4.6) x10^3/uL Absolute Monos (auto) (0.0-1.3) x10^3/uL Absolute Nucleated RBC (0.00-0.01) x10^3u/L Lymphocytes % (24.0-44.0) % Monocytes % (0.0-12.0) % Eosinophils % (0.00-5.0) % Basophils % (0.0-0.4) % Absolute Granulocytes (1.4-6.9) x10^3/uL Basophils # (0-0.4) x10^3/uL Sodium (137-145) mmol/L Potassium (3.5-5.1) mmol/L Chloride (98-107) mmol/L Carbon Dioxide (22-30) mmol/L Anion Gap (5-15) MEQ/L BUN (7-17) mg/dL Creatinine (0.52-1.04) mg/dL Estimated GFR ML/MIN Glucose (74-106) mg/dL POC Glucometer (74 to 106) mg/dL Lactic Acid 1.4 (0.4-2.0) Calcium (8.4-10.2) mg/dL Total Bilirubin (0.2-1.3) mg/dL AST (14-36) U/L ALT (0-35) U/L Alkaline Phosphatase (38-126) U/L Troponin I (0.000-0.034) ng/mL Serum Total Protein (6.3-8.2) g/dL Albumin (3.5-5.0) g/dL Amylase (30-110) U/L Lipase (23-300) U/L Thyroxine (T4) (5.53-10.96) ug/dL TSH 3rd Generation (0.47-4.68) mIU/L Urine Color Dark Yellow A (Yellow) Urine Appearance Turbid A (Clear) Urine pH 5.5 (4.6-8.0) Ur Specific [address] 1.020 (1.005-1.030) Urine Protein 100 A (Negative) Urine Glucose (UA) Negative (Negative) mg/dL Urine Ketones 15 A (Negative) Urine Blood Moderate A (Negative) Urine Nitrite Negative (Negative) Urine Bilirubin Negative (Negative) Urine Urobilinogen 1.0 A (0.2) mg/dL Ur Leukocyte Esterase Large A (Negative) U Hyaline Cast (Auto) 11-20 (0-2) /LPF Urine Microscopic RBC >100 A (0-5) /HPF Urine Microscopic WBC >100 A (0-5) /HPF Ur Epithelial Cells Many A (None Seen) /HPF Urine Bacteria Many A (None Seen) /HPF Urine Culture Reflexed YES (NO) - Radiology Impressions Radiology Exams & Impressions: Radiology Procedures Category Date Time Status ABDOMEN AND PELVIS W/0 CONTRAS [CT] Stat Exams 12/23/22 00:24 Completed Assessment/Plan (1) Acute metabolic encephalopathy Current Visit: Yes Status: Acute Assessment & Plan: Improved. Possible combination of acute metabolic encephalopathy due to UTI and acute toxic encephalopathy due to narcotics. Received Narcan. No recent change to her morphine dosing. Will resume. May need to have adjustment to her regimen if mental status changes are persistent. Narcotic effect may have been potentiated by underlying infection, in the setting of CKD. Follows with Dr. Sanchez. Code(s): G93.41 - METABOLIC ENCEPHALOPATHY (2) Anemia Current Visit: Yes Status: Acute Code(s): D64.9 - ANEMIA, UNSPECIFIED (3) UTI (urinary tract infection) Current Visit: No Status: Acute Assessment & Plan: IV Rocephin. Culture collected but can convert to po antibiotics at discharge to complete empiric course. Code(s): N39.0 - URINARY TRACT INFECTION, SITE NOT SPECIFIED (4) Anemia Current Visit: No Status: Acute Assessment & Plan: Hemoglobin has slightly down trended in the setting of anemia of chronic kidney disease. However, there has been a report of "red spots" in her stool for 3 weeks. This is in the setting of a recent colostomy takedown and also chronic anticoagulation due to recurrent thromboembolic disease. No kimmie bleeding noted at this time. Will continue Eliquis for now and monitor repeat hemoglobin to see if there is a further down trend. Will not transfuse at this time due to known chronic systolic CHF with chronic edema, and risk of volume overload. If transfusion needed, however, there may need to be consideration of discontinuing/suspending Eliquis. Code(s): D64.9 - ANEMIA, UNSPECIFIED Telemedicine Encounter - Telemedicine Encounter Telemedicine Encounter: The entirety of this encounter was performed via Telemedicine"
[2022-12-23 05:30] VITALS: RESP 16
[2022-12-23] MEDS ORDERED: Lasix 40 MG PO PRN (07:23)
[2022-12-23] MEDS ORDERED: Zanaflex 4 MG PO PRN (07:26)
[2022-12-23 07:35] VITALS: BP 127/78; TEMP 96.3; O2SAT 96
[2022-12-23 07:53] LABS: Hematocrit 28.4 % (35-47); Hemoglobin 8.5 g/dL (12.0-16.0); Mean Corpuscular Hemoglobin 25.4 pg (26-32); Mean Corpuscular Hgb Concent. 29.9 g/dL (32-36); Mean Platelet Volume 9.3 fL (7.5-11.0); Platelet Count 405 x10^3/uL (150-450); Red Blood Count 3.34 x10^6/uL (4.1-5.4); Red Cell Distribution Width 17.7 % (11.5-14.0); White Blood Count 7.2 x10^3/uL (4.0-10.5)
[2022-12-23 08:10] LABS: ALBUMIN 3.6 g/dL (3.5-5.0); ANION GAP 17.6 MEQ/L (5-15); BILIRUBIN,TOTAL 1.5 mg/dL (0.2-1.3); Creatinine 1 1.59 mg/dL (0.52-1.04); EST GLOMERULAR FILTRATION RATE 34.5 ML/MIN; Potassium 3.9 mmol/L (3.5-5.1)
[2022-12-23] MEDS ORDERED: Miralax Powder 17GM PACKET PO PRN (08:44)
[2022-12-23] MEDS ORDERED: Ms Contin 15 MG PO SCH (10:00)
[2022-12-23] MEDS ORDERED: ELIQUIS 2.5 MG TABLET PO SCH (10:00)
[2022-12-23] MEDS ORDERED: Acidophilus TABLET PO SCH (10:00)
[2022-12-23] MEDS ORDERED: LEVOTHYROXINE SODIUM 300 MCG PO SCH (10:00)
[2022-12-23] MEDS ORDERED: NON-FORMULARY ITEM (Apixaban [Eliquis] 5 MG Tablet) PO SCH (10:00)
[2022-12-23] MEDS ORDERED: Aldactone 25 MG PO SCH (10:00)
[2022-12-23] MEDS ORDERED: ECOTRIN 81 MG PO SCH (10:00)
[2022-12-23] MEDS ORDERED: Toprol-Xl 25MG Tablets PO SCH (10:00)
[2022-12-23] MEDS ORDERED: AMIODARONE HCL 100 MG PO SCH (10:00)
[2022-12-23] MEDS ORDERED: NON-FORMULARY ITEM (Famotidine [Famotidine] 40 MG Tablet) PO SCH (10:00)
[2022-12-23] MEDS ORDERED: Pepcid 20 MG PO SCH (10:00)
[2022-12-23] MEDS ORDERED: NON-FORMULARY ITEM (Morphine Sulfate [Morphine Sulfate Er] 30 MG Tablet.Er) PO SCH (10:00)
[2022-12-23] MEDS ORDERED: Docusate Sodium 100 MG PO SCH (10:00)
[2022-12-23] MEDS ORDERED: SYNTHROID 150 MCG PO SCH (10:00)
[2022-12-23] MEDS ORDERED: Lasix 40 MG PO SCH (10:00)
[2022-12-23] MEDS ORDERED: ROCEPHIN 1 Gm-D5w 50 ml Bag** 1 G/50 ML IVPB IV SCH (10:00)
[2022-12-23] MEDS ORDERED: hydroDIURIL 25 MG PO SCH (10:00)
[2022-12-23] MEDS ORDERED: Cordarone 200 MG PO SCH (10:00)
[2022-12-23] MEDS ORDERED: [UNRECOGNIZED DRUG - OTHER] PO SCH (10:00)
--- NOTE | 2022-12-23 10:51 | PCM.DS ---
Discharge Summary Date of Admission: 12/23/22 03:54 Date of Discharge: 12/23/2022 Admitting Physician: LEANNE LO MD Primary Care Provider: WAQAR CASTRO <RAQUEL MOSS - Last Filed: 12/23/22 11:19> Date of Admission: 12/23/22 03:54 Admitting Physician: LEANNE LO MD Primary Care Provider: WAQAR CASTRO <DIONE BURKS - Last Filed: 12/23/22 17:16> Allergies <RAQUEL MOSS - Last Filed: 12/23/22 11:19> <DIONE BURKS - Last Filed: 12/23/22 17:16> Allergies baclofen Allergy (Severe, Verified 12/22/22 21:59) Difficulty Breathing pt states stopped breathing Sulfa (Sulfonamide Antibiotics) [Sulfa(Sulfonamide Antibiotics)] Allergy (Severe, Verified 12/22/22 21:59) Nausea and Vomiting adhesive Allergy (Mild, Verified 12/22/22 21:59) Blisters codeine [Codeine] Allergy (Mild, Verified 12/22/22 21:59) Nausea and Vomiting iron Adverse Reaction (Intermediate, Verified 12/22/22 21:59) Nausea oxycodone [From Percocet] Adverse Reaction (Intermediate, Verified 12/22/22 21:59) Vomiting Hospital Summary - Hospital Course Hospital Course: is a 67 year old female with a PMHX of chronic systolic CHF (EF 40% and follows with Dr. Duarte), CKD (has been referred to Dr. Ricardo), chronic anemia (baseline hemoglobin 9-10), significant recurrent thromboembolic disease with recent PE on Eliquis, colostomy (s/p recent takedown a few months ago by Dr. Branch), chronic pain syndrome on narcotics (follows with Dr. Sanchez) who presented to the ED with altered mental status 12/23/22. Per the patient's hus band, when they left for [place] earlier this evening she was at her baseline mentation but had been intermittently more tired than normally and kept falling asleep "every five minutes" later in the evening with difficulty standing or speaking in comprehensible sentences. She denies any recent changes to her pain regimen. She also denies any fevers or chills. In the ED the patient received Narcan with improvement in her mental status. Additionally, her urinalysis revealed evidence of a UTI and she received IV antibiotics. Although chronically anemic, patient's hemoglobin is stable at 8.5. The patient states that she has noticed "red spots" in her stool for the past "few" (she estimates 3) weeks. CT imaging of the abdomen/pelvis findings showed stable dilatation of small bowel loops with air-fluid levels to the same degree (average 5.5 cm). No evidence of perforation. No free fluid is seen. She is scheduled for follow up and scopes and possible ostomy replacement with Dr. Branch January 03, 2023. Patient has returned to her baseline mentation and will complete a course of cefdinir as OP for her UTI, with close follow up with her PCP and surgeon. [facility] has been set up for patient through amedysis. (1) Acute metabolic encephalopathy Current Visit: Yes Status: Acute Assessment & Plan: Improved. Possible combination of acute metabolic encephalopathy due to UTI and acute toxic encephalopathy due to narcotics. Received Narcan. No recent change to her morphine dosing. Will resume. May need to have adjustment to her regimen if mental status changes are persistent. Narcotic effect may have been potentiated by underlying infection, in the setting of CKD. Follows with Dr. Sanchez. -resolved since admission, most-likely multifocal with current pain medication regimen/UTI, patient remains A&O x 4 Code(s): G93.41 - METABOLIC ENCEPHALOPATHY (2) UTI (urinary tract infection) Current Visit: No Status: Acute Assessment & Plan: IV Rocephin. Culture collected but can convert to po antibiotics at discharge to complete empiric course. -will discharge on cefdinir 300mg po daily for 7 days Code(s): N39.0 - URINARY TRACT INFECTION, SITE NOT SPECIFIED (3) Anemia Current Visit: No Status: Acute Assessment & Plan: Hemoglobin has slightly down trended in the setting of anemia of chronic kidney disease. However, there has been a report of "red spots" in her stool for 3 weeks. This is in the setting of a recent colostomy takedown and also chronic anticoagulation due to recurrent thromboembolic disease. No kimmie bleeding noted at this time. Will continue Eliquis for now and monitor repeat hemoglobin to see if there is a further down trend. Will not transfuse at this time due to known chronic systolic CHF with chronic edema, and risk of volume overload. If transfusion needed, however, there may need to be consideration of discontinuing/suspending Eliquis. -Hgb stable at 8.5, advised close follow up with nephrology/pcp Code(s): D64.9 - ANEMIA, UNSPECIFIED I have spent > 45 minutes planning and coordinating safe discharge of this patient. - Vitals & Intake/Output Vital Signs: Vital Signs Temperature 96.3 F 12/23/22 07:32 Pulse Rate 100 H 12/23/22 07:32 Respiratory Rate 16 12/23/22 07:32 Blood Pressure 127/78 12/23/22 07:32 O2 Sat by Pulse Oximetry 96 12/23/22 07:32 Intake & Output: Intake & Output 12/20/22 12/21/22 12/22/22 12/23/22 11:59 11:59 11:59 11:59 Weight 81.8 kg - Lab Result Diagrams: 12/23/22 07:50 12/23/22 07:50 Lab Results-Last 24 Hrs: Lab Results-Last 24 Hours 12/22/22 12/22/22 12/22/22 Range/Units 21:59 22:40 22:40 WBC 5.9 (4.0-10.5) x10^3/uL RBC 3.22 L (4.1-5.4) x10^6/uL Hgb 8.2 L (12.0-16.0) g/dL Hct 27.8 L (35-47) % MCV 86.3 (78-100) fL MCH 25.5 L (26-32) pg MCHC 29.5 L (32-36) g/dL RDW 17.5 H (11.5-14.0) % Plt Count 418 (150-450) x10^3/uL MPV 9.8 (7.5-11.0) fL Gran % 73.5 H (36.0-66.0) % Immature Gran % (Auto) 0.3 (0.00-0.4) % Nucleat RBC Rel Count 0.0 (0.00-0.1) % Eos # (Auto) 0.01 (0-0.5) x10^3/uL Immature Gran # (Auto) 0.02 (0.00-0.03) x10^3u/L Absolute Lymphs (auto) 1.06 (1.0-4.6) x10^3/uL Absolute Monos (auto) 0.42 (0.0-1.3) x10^3/uL Absolute Nucleated RBC 0.00 (0.00-0.01) x10^3u/L Lymphocytes % 18.1 L (24.0-44.0) % Monocytes % 7.2 (0.0-12.0) % Eosinophils % 0.2 (0.00-5.0) % Basophils % 0.7 (0.0-0.4) % Absolute Granulocytes 4.31 (1.4-6.9) x10^3/uL Basophils # 0.04 (0-0.4) x10^3/uL Sodium 137 (137-145) mmol/L Potassium 3.9 (3.5-5.1) mmol/L Chloride 102 (98-107) mmol/L Carbon Dioxide 22 (22-30) mmol/L Anion Gap 16.8 H (5-15) MEQ/L BUN 27 H (7-17) mg/dL Creatinine 1.93 H (0.52-1.04) mg/dL Estimated GFR 27.6 ML/MIN Glucose 123 H (74-106) mg/dL POC Glucometer 122 H (74 to 106) mg/dL Lactic Acid (0.4-2.0) Calcium 9.1 (8.4-10.2) mg/dL Total Bilirubin 1.70 H (0.2-1.3) mg/dL AST 27 (14-36) U/L ALT 11 (0-35) U/L Alkaline Phosphatase 111 (38-126) U/L Troponin I (0.000-0.034) ng/mL Serum Total Protein 7.8 (6.3-8.2) g/dL Albumin 4.0 (3.5-5.0) g/dL Amylase 41 (30-110) U/L Lipase 113 (23-300) U/L Thyroxine (T4) (5.53-10.96) ug/dL TSH 3rd Generation (0.47-4.68) mIU/L Urine Color (Yellow) Urine Appearance (Clear) Urine pH (4.6-8.0) Ur Specific [place] (1.005-1.030) Urine Protein (Negative) Urine Glucose (UA) (Negative) mg/dL Urine Ketones (Negative) Urine Blood (Negative) Urine Nitrite (Negative) Urine Bilirubin (Negative) Urine Urobilinogen (0.2) mg/dL Ur Leukocyte Esterase (Negative) U Hyaline Cast (Auto) (0-2) /LPF Urine Microscopic RBC (0-5) /HPF Urine Microscopic WBC (0-5) /HPF Ur Epithelial Cells (None Seen) /HPF Urine Bacteria (None Seen) /HPF Urine Culture Reflexed (NO) 12/22/22 12/22/22 12/22/22 Range/Units 22:40 23:30 23:30 WBC (4.0-10.5) x10^3/uL RBC (4.1-5.4) x10^6/uL Hgb (12.0-16.0) g/dL Hct (35-47) % MCV (78-100) fL MCH (26-32) pg MCHC (32-36) g/dL RDW (11.5-14.0) % Plt Count (150-450) x10^3/uL MPV (7.5-11.0) fL Gran % (36.0-66.0) % Immature Gran % (Auto) (0.00-0.4) % Nucleat RBC Rel Count (0.00-0.1) % Eos # (Auto) (0-0.5) x10^3/uL Immature Gran # (Auto) (0.00-0.03) x10^3u/L Absolute Lymphs (auto) (1.0-4.6) x10^3/uL Absolute Monos (auto) (0.0-1.3) x10^3/uL Absolute Nucleated RBC (0.00-0.01) x10^3u/L Lymphocytes % (24.0-44.0) % Monocytes % (0.0-12.0) % Eosinophils % (0.00-5.0) % Basophils % (0.0-0.4) % Absolute Granulocytes (1.4-6.9) x10^3/uL Basophils # (0-0.4) x10^3/uL Sodium (137-145) mmol/L Potassium (3.5-5.1) mmol/L Chloride (98-107) mmol/L Carbon Dioxide (22-30) mmol/L Anion Gap (5-15) MEQ/L BUN (7-17) mg/dL Creatinine (0.52-1.04) mg/dL Estimated GFR ML/MIN Glucose (74-106) mg/dL POC Glucometer (74 to 106) mg/dL Lactic Acid (0.4-2.0) Calcium (8.4-10.2) mg/dL Total Bilirubin (0.2-1.3) mg/dL AST (14-36) U/L ALT (0-35) U/L Alkaline Phosphatase (38-126) U/L Troponin I < 0.012 (0.000-0.034) ng/mL Serum Total Protein (6.3-8.2) g/dL Albumin (3.5-5.0) g/dL Amylase (30-110) U/L Lipase (23-300) U/L Thyroxine (T4) > 24.0 H (5.53-10.96) ug/dL TSH 3rd Generation 1.080 (0.47-4.68) mIU/L Urine Color (Yellow) Urine Appearance (Clear) Urine pH (4.6-8.0) Ur Specific [place] (1.005-1.030) Urine Protein (Negative) Urine Glucose (UA) (Negative) mg/dL Urine Ketones (Negative) Urine Blood (Negative) Urine Nitrite (Negative) Urine Bilirubin (Negative) Urine Urobilinogen (0.2) mg/dL Ur Leukocyte Esterase (Negative) U Hyaline Cast (Auto) (0-2) /LPF Urine Microscopic RBC (0-5) /HPF Urine Microscopic WBC (0-5) /HPF Ur Epithelial Cells (None Seen) /HPF Urine Bacteria (None Seen) /HPF Urine Culture Reflexed (NO) 12/23/22 12/23/22 12/23/22 Range/Units 00:09 01:41 05:24 WBC (4.0-10.5) x10^3/uL RBC (4.1-5.4) x10^6/uL Hgb (12.0-16.0) g/dL Hct (35-47) % MCV (78-100) fL MCH (26-32) pg MCHC (32-36) g/dL RDW (11.5-14.0) % Plt Count (150-450) x10^3/uL MPV (7.5-11.0) fL Gran % (36.0-66.0) % Immature Gran % (Auto) (0.00-0.4) % Nucleat RBC Rel Count (0.00-0.1) % Eos # (Auto) (0-0.5) x10^3/uL Immature Gran # (Auto) (0.00-0.03) x10^3u/L Absolute Lymphs (auto) (1.0-4.6) x10^3/uL Absolute Monos (auto) (0.0-1.3) x10^3/uL Absolute Nucleated RBC (0.00-0.01) x10^3u/L Lymphocytes % (24.0-44.0) % Monocytes % (0.0-12.0) % Eosinophils % (0.00-5.0) % Basophils % (0.0-0.4) % Absolute Granulocytes (1.4-6.9) x10^3/uL Basophils # (0-0.4) x10^3/uL Sodium (137-145) mmol/L Potassium (3.5-5.1) mmol/L Chloride (98-107) mmol/L Carbon Dioxide (22-30) mmol/L Anion Gap (5-15) MEQ/L BUN (7-17) mg/dL Creatinine (0.52-1.04) mg/dL Estimated GFR ML/MIN Glucose (74-106) mg/dL POC Glucometer (74 to 106) mg/dL Lactic Acid 1.4 (0.4-2.0) Calcium (8.4-10.2) mg/dL Total Bilirubin (0.2-1.3) mg/dL AST (14-36) U/L ALT (0-35) U/L Alkaline Phosphatase (38-126) U/L Troponin I < 0.012 (0.000-0.034) ng/mL Serum Total Protein (6.3-8.2) g/dL Albumin (3.5-5.0) g/dL Amylase (30-110) U/L Lipase (23-300) U/L Thyroxine (T4) (5.53-10.96) ug/dL TSH 3rd Generation (0.47-4.68) mIU/L Urine Color Dark Yellow A (Yellow) Urine Appearance Turbid A (Clear) Urine pH 5.5 (4.6-8.0) Ur Specific [place] 1.020 (1.005-1.030) Urine Protein 100 A (Negative) Urine Glucose (UA) Negative (Negative) mg/dL Urine Ketones 15 A (Negative) Urine Blood Moderate A (Negative) Urine Nitrite Negative (Negative) Urine Bilirubin Negative (Negative) Urine Urobilinogen 1.0 A (0.2) mg/dL Ur Leukocyte Esterase Large A (Negative) U Hyaline Cast (Auto) 11-20 (0-2) /LPF Urine Microscopic RBC >100 A (0-5) /HPF Urine Microscopic WBC >100 A (0-5) /HPF Ur Epithelial Cells Many A (None Seen) /HPF Urine Bacteria Many A (None Seen) /HPF Urine Culture Reflexed YES (NO) 12/23/22 12/23/22 12/23/22 Range/Units 07:29 07:50 07:50 WBC 7.2 (4.0-10.5) x10^3/uL RBC 3.34 L (4.1-5.4) x10^6/uL Hgb 8.5 L (12.0-16.0) g/dL Hct 28.4 L (35-47) % MCV 85.0 (78-100) fL MCH 25.4 L (26-32) pg MCHC 29.9 L (32-36) g/dL RDW 17.7 H (11.5-14.0) % Plt Count 405 (150-450) x10^3/uL MPV 9.3 (7.5-11.0) fL Gran % (36.0-66.0) % Immature Gran % (Auto) (0.00-0.4) % Nucleat RBC Rel Count (0.00-0.1) % Eos # (Auto) (0-0.5) x10^3/uL Immature Gran # (Auto) (0.00-0.03) x10^3u/L Absolute Lymphs (auto) (1.0-4.6) x10^3/uL Absolute Monos (auto) (0.0-1.3) x10^3/uL Absolute Nucleated RBC (0.00-0.01) x10^3u/L Lymphocytes % (24.0-44.0) % Monocytes % (0.0-12.0) % Eosinophils % (0.00-5.0) % Basophils % (0.0-0.4) % Absolute Granulocytes (1.4-6.9) x10^3/uL Basophils # (0-0.4) x10^3/uL Sodium 139 (137-145) mmol/L Potassium 3.9 (3.5-5.1) mmol/L Chloride 104 (98-107) mmol/L Carbon Dioxide 21 L (22-30) mmol/L Anion Gap 17.6 H (5-15) MEQ/L BUN 25 H (7-17) mg/dL Creatinine 1.59 H (0.52-1.04) mg/dL Estimated GFR 34.5 ML/MIN Glucose 100 (74-106) mg/dL POC Glucometer (74 to 106) mg/dL Lactic Acid (0.4-2.0) Calcium 9.0 (8.4-10.2) mg/dL Total Bilirubin 1.50 H (0.2-1.3) mg/dL AST 22 (14-36) U/L ALT 11 (0-35) U/L Alkaline Phosphatase 108 (38-126) U/L Troponin I < 0.012 (0.000-0.034) ng/mL Serum Total Protein 7.0 (6.3-8.2) g/dL Albumin 3.6 (3.5-5.0) g/dL Amylase (30-110) U/L Lipase (23-300) U/L Thyroxine (T4) (5.53-10.96) ug/dL TSH 3rd Generation (0.47-4.68) mIU/L Urine Color (Yellow) Urine Appearance (Clear) Urine pH (4.6-8.0) Ur Specific [place] (1.005-1.030) Urine Protein (Negative) Urine Glucose (UA) (Negative) mg/dL Urine Ketones (Negative) Urine Blood (Negative) Urine Nitrite (Negative) Urine Bilirubin (Negative) Urine Urobilinogen (0.2) mg/dL Ur Leukocyte Esterase (Negative) U Hyaline Cast (Auto) (0-2) /LPF Urine Microscopic RBC (0-5) /HPF Urine Microscopic WBC (0-5) /HPF Ur Epithelial Cells (None Seen) /HPF Urine Bacteria (None Seen) /HPF Urine Culture Reflexed (NO) - Radiology Exams Ordered Rad Exams-Entire Visit: Radiology Procedures Category Date Time Status ABDOMEN AND PELVIS W/0 CONTRAS [CT] Stat Exams 12/23/22 00:24 Completed - Procedures and Test Procedures and Tests throughout Hospitalization: Therapy Orders & Screens 12/23/22 05:16 PT Eval & Treat ( Order) ONCE Reason for Eval:: AMS, assess for ambulation/safety Diagnosis: decreased hgb, resolved AMS, elevated T4 <RAQUEL MOSS - Last Filed: 12/23/22 11:19> - Vitals & Intake/Output Vital Signs: Vital Signs Temperature 96.3 F 12/23/22 07:32 Pulse Rate 100 H 12/23/22 07:32 Respiratory Rate 16 12/23/22 07:32 Blood Pressure 127/78 12/23/22 07:32 O2 Sat by Pulse Oximetry 96 12/23/22 07:32 Intake & Output: Intake & Output 12/21/22 12/22/22 12/23/22 12/24/22 11:59 11:59 11:59 11:59 Weight 81.8 kg - Lab Result Diagrams: 12/23/22 07:50 12/23/22 07:50 Lab Results-Last 24 Hrs: Lab Results-Last 24 Hours 12/22/22 12/22/22 12/22/22 Range/Units 21:59 22:40 22:40 WBC 5.9 (4.0-10.5) x10^3/uL RBC 3.22 L (4.1-5.4) x10^6/uL Hgb 8.2 L (12.0-16.0) g/dL Hct 27.8 L (35-47) % MCV 86.3 (78-100) fL MCH 25.5 L (26-32) pg MCHC 29.5 L (32-36) g/dL RDW 17.5 H (11.5-14.0) % Plt Count 418 (150-450) x10^3/uL MPV 9.8 (7.5-11.0) fL Gran % 73.5 H (36.0-66.0) % Immature Gran % (Auto) 0.3 (0.00-0.4) % Nucleat RBC Rel Count 0.0 (0.00-0.1) % Eos # (Auto) 0.01 (0-0.5) x10^3/uL Immature Gran # (Auto) 0.02 (0.00-0.03) x10^3u/L Absolute Lymphs (auto) 1.06 (1.0-4.6) x10^3/uL Absolute Monos (auto) 0.42 (0.0-1.3) x10^3/uL Absolute Nucleated RBC 0.00 (0.00-0.01) x10^3u/L Lymphocytes % 18.1 L (24.0-44.0) % Monocytes % 7.2 (0.0-12.0) % Eosinophils % 0.2 (0.00-5.0) % Basophils % 0.7 (0.0-0.4) % Absolute Granulocytes 4.31 (1.4-6.9) x10^3/uL Basophils # 0.04 (0-0.4) x10^3/uL Sodium 137 (137-145) mmol/L Potassium 3.9 (3.5-5.1) mmol/L Chloride 102 (98-107) mmol/L Carbon Dioxide 22 (22-30) mmol/L Anion Gap 16.8 H (5-15) MEQ/L BUN 27 H (7-17) mg/dL Creatinine 1.93 H (0.52-1.04) mg/dL Estimated GFR 27.6 ML/MIN Glucose 123 H (74-106) mg/dL POC Glucometer 122 H (74 to 106) mg/dL Lactic Acid (0.4-2.0) Calcium 9.1 (8.4-10.2) mg/dL Total Bilirubin 1.70 H (0.2-1.3) mg/dL AST 27 (14-36) U/L ALT 11 (0-35) U/L Alkaline Phosphatase 111 (38-126) U/L Troponin I (0.000-0.034) ng/mL Serum Total Protein 7.8 (6.3-8.2) g/dL Albumin 4.0 (3.5-5.0) g/dL Amylase 41 (30-110) U/L Lipase 113 (23-300) U/L Thyroxine (T4) (5.53-10.96) ug/dL TSH 3rd Generation (0.47-4.68) mIU/L Urine Color (Yellow) Urine Appearance (Clear) Urine pH (4.6-8.0) Ur Specific [place] (1.005-1.030) Urine Protein (Negative) Urine Glucose (UA) (Negative) mg/dL Urine Ketones (Negative) Urine Blood (Negative) Urine Nitrite (Negative) Urine Bilirubin (Negative) Urine Urobilinogen (0.2) mg/dL Ur Leukocyte Esterase (Negative) U Hyaline Cast (Auto) (0-2) /LPF Urine Microscopic RBC (0-5) /HPF Urine Microscopic WBC (0-5) /HPF Ur Epithelial Cells (None Seen) /HPF Urine Bacteria (None Seen) /HPF Urine Culture Reflexed (NO) 12/22/22 12/22/22 12/22/22 Range/Units 22:40 23:30 23:30 WBC (4.0-10.5) x10^3/uL RBC (4.1-5.4) x10^6/uL Hgb (12.0-16.0) g/dL Hct (35-47) % MCV (78-100) fL MCH (26-32) pg MCHC (32-36) g/dL RDW (11.5-14.0) % Plt Count (150-450) x10^3/uL MPV (7.5-11.0) fL Gran % (36.0-66.0) % Immature Gran % (Auto) (0.00-0.4) % Nucleat RBC Rel Count (0.00-0.1) % Eos # (Auto) (0-0.5) x10^3/uL Immature Gran # (Auto) (0.00-0.03) x10^3u/L Absolute Lymphs (auto) (1.0-4.6) x10^3/uL Absolute Monos (auto) (0.0-1.3) x10^3/uL Absolute Nucleated RBC (0.00-0.01) x10^3u/L Lymphocytes % (24.0-44.0) % Monocytes % (0.0-12.0) % Eosinophils % (0.00-5.0) % Basophils % (0.0-0.4) % Absolute Granulocytes (1.4-6.9) x10^3/uL Basophils # (0-0.4) x10^3/uL Sodium (137-145) mmol/L Potassium (3.5-5.1) mmol/L Chloride (98-107) mmol/L Carbon Dioxide (22-30) mmol/L Anion Gap (5-15) MEQ/L BUN (7-17) mg/dL Creatinine (0.52-1.04) mg/dL Estimated GFR ML/MIN Glucose (74-106) mg/dL POC Glucometer (74 to 106) mg/dL Lactic Acid (0.4-2.0) Calcium (8.4-10.2) mg/dL Total Bilirubin (0.2-1.3) mg/dL AST (14-36) U/L ALT (0-35) U/L Alkaline Phosphatase (38-126) U/L Troponin I < 0.012 (0.000-0.034) ng/mL Serum Total Protein (6.3-8.2) g/dL Albumin (3.5-5.0) g/dL Amylase (30-110) U/L Lipase (23-300) U/L Thyroxine (T4) > 24.0 H (5.53-10.96) ug/dL TSH 3rd Generation 1.080 (0.47-4.68) mIU/L Urine Color (Yellow) Urine Appearance (Clear) Urine pH (4.6-8.0) Ur Specific [place] (1.005-1.030) Urine Protein (Negative) Urine Glucose (UA) (Negative) mg/dL Urine Ketones (Negative) Urine Blood (Negative) Urine Nitrite (Negative) Urine Bilirubin (Negative) Urine Urobilinogen (0.2) mg/dL Ur Leukocyte Esterase (Negative) U Hyaline Cast (Auto) (0-2) /LPF Urine Microscopic RBC (0-5) /HPF Urine Microscopic WBC (0-5) /HPF Ur Epithelial Cells (None Seen) /HPF Urine Bacteria (None Seen) /HPF Urine Culture Reflexed (NO) 12/23/22 12/23/22 12/23/22 Range/Units 00:09 01:41 05:24 WBC (4.0-10.5) x10^3/uL RBC (4.1-5.4) x10^6/uL Hgb (12.0-16.0) g/dL Hct (35-47) % MCV (78-100) fL MCH (26-32) pg MCHC (32-36) g/dL RDW (11.5-14.0) % Plt Count (150-450) x10^3/uL MPV (7.5-11.0) fL Gran % (36.0-66.0) % Immature Gran % (Auto) (0.00-0.4) % Nucleat RBC Rel Count (0.00-0.1) % Eos # (Auto) (0-0.5) x10^3/uL Immature Gran # (Auto) (0.00-0.03) x10^3u/L Absolute Lymphs (auto) (1.0-4.6) x10^3/uL Absolute Monos (auto) (0.0-1.3) x10^3/uL Absolute Nucleated RBC (0.00-0.01) x10^3u/L Lymphocytes % (24.0-44.0) % Monocytes % (0.0-12.0) % Eosinophils % (0.00-5.0) % Basophils % (0.0-0.4) % Absolute Granulocytes (1.4-6.9) x10^3/uL Basophils # (0-0.4) x10^3/uL Sodium (137-145) mmol/L Potassium (3.5-5.1) mmol/L Chloride (98-107) mmol/L Carbon Dioxide (22-30) mmol/L Anion Gap (5-15) MEQ/L BUN (7-17) mg/dL Creatinine (0.52-1.04) mg/dL Estimated GFR ML/MIN Glucose (74-106) mg/dL POC Glucometer (74 to 106) mg/dL Lactic Acid 1.4 (0.4-2.0) Calcium (8.4-10.2) mg/dL Total Bilirubin (0.2-1.3) mg/dL AST (14-36) U/L ALT (0-35) U/L Alkaline Phosphatase (38-126) U/L Troponin I < 0.012 (0.000-0.034) ng/mL Serum Total Protein (6.3-8.2) g/dL Albumin (3.5-5.0) g/dL Amylase (30-110) U/L Lipase (23-300) U/L Thyroxine (T4) (5.53-10.96) ug/dL TSH 3rd Generation (0.47-4.68) mIU/L Urine Color Dark Yellow A (Yellow) Urine Appearance Turbid A (Clear) Urine pH 5.5 (4.6-8.0) Ur Specific [place] 1.020 (1.005-1.030) Urine Protein 100 A (Negative) Urine Glucose (UA) Negative (Negative) mg/dL Urine Ketones 15 A (Negative) Urine Blood Moderate A (Negative) Urine Nitrite Negative (Negative) Urine Bilirubin Negative (Negative) Urine Urobilinogen 1.0 A (0.2) mg/dL Ur Leukocyte Esterase Large A (Negative) U Hyaline Cast (Auto) 11-20 (0-2) /LPF Urine Microscopic RBC >100 A (0-5) /HPF Urine Microscopic WBC >100 A (0-5) /HPF Ur Epithelial Cells Many A (None Seen) /HPF Urine Bacteria Many A (None Seen) /HPF Urine Culture Reflexed YES (NO) 12/23/22 12/23/22 12/23/22 Range/Units 07:29 07:50 07:50 WBC 7.2 (4.0-10.5) x10^3/uL RBC 3.34 L (4.1-5.4) x10^6/uL Hgb 8.5 L (12.0-16.0) g/dL Hct 28.4 L (35-47) % MCV 85.0 (78-100) fL MCH 25.4 L (26-32) pg MCHC 29.9 L (32-36) g/dL RDW 17.7 H (11.5-14.0) % Plt Count 405 (150-450) x10^3/uL MPV 9.3 (7.5-11.0) fL Gran % (36.0-66.0) % Immature Gran % (Auto) (0.00-0.4) % Nucleat RBC Rel Count (0.00-0.1) % Eos # (Auto) (0-0.5) x10^3/uL Immature Gran # (Auto) (0.00-0.03) x10^3u/L Absolute Lymphs (auto) (1.0-4.6) x10^3/uL Absolute Monos (auto) (0.0-1.3) x10^3/uL Absolute Nucleated RBC (0.00-0.01) x10^3u/L Lymphocytes % (24.0-44.0) % Monocytes % (0.0-12.0) % Eosinophils % (0.00-5.0) % Basophils % (0.0-0.4) % Absolute Granulocytes (1.4-6.9) x10^3/uL Basophils # (0-0.4) x10^3/uL Sodium 139 (137-145) mmol/L Potassium 3.9 (3.5-5.1) mmol/L Chloride 104 (98-107) mmol/L Carbon Dioxide 21 L (22-30) mmol/L Anion Gap 17.6 H (5-15) MEQ/L BUN 25 H (7-17) mg/dL Creatinine 1.59 H (0.52-1.04) mg/dL Estimated GFR 34.5 ML/MIN Glucose 100 (74-106) mg/dL POC Glucometer (74 to 106) mg/dL Lactic Acid (0.4-2.0) Calcium 9.0 (8.4-10.2) mg/dL Total Bilirubin 1.50 H (0.2-1.3) mg/dL AST 22 (14-36) U/L ALT 11 (0-35) U/L Alkaline Phosphatase 108 (38-126) U/L Troponin I < 0.012 (0.000-0.034) ng/mL Serum Total Protein 7.0 (6.3-8.2) g/dL Albumin 3.6 (3.5-5.0) g/dL Amylase (30-110) U/L Lipase (23-300) U/L Thyroxine (T4) (5.53-10.96) ug/dL TSH 3rd Generation (0.47-4.68) mIU/L Urine Color (Yellow) Urine Appearance (Clear) Urine pH (4.6-8.0) Ur Specific [place] (1.005-1.030) Urine Protein (Negative) Urine Glucose (UA) (Negative) mg/dL Urine Ketones (Negative) Urine Blood (Negative) Urine Nitrite (Negative) Urine Bilirubin (Negative) Urine Urobilinogen (0.2) mg/dL Ur Leukocyte Esterase (Negative) U Hyaline Cast (Auto) (0-2) /LPF Urine Microscopic RBC (0-5) /HPF Urine Microscopic WBC (0-5) /HPF Ur Epithelial Cells (None Seen) /HPF Urine Bacteria (None Seen) /HPF Urine Culture Reflexed (NO) - Radiology Exams Ordered Rad Exams-Entire Visit: Radiology Procedures Category Date Time Status ABDOMEN AND PELVIS W/0 CONTRAS [CT] Stat Exams 12/23/22 00:24 Completed - Procedures and Test Procedures and Tests throughout Hospitalization: Therapy Orders & Screens 12/23/22 05:16 PT Eval & Treat ( Order) ONCE Reason for Eval:: AMS, assess for ambulation/safety Diagnosis: decreased hgb, resolved AMS, elevated T4 <DIONE BURKS - Last Filed: 12/23/22 17:16> Discharge Exam General Appearance: no apparent distress Neurologic Exam: oriented x 3 Eye Exam: PERRL Respiratory Exam: normal breath sounds Cardiovascular Exam: regular rate/rhythm Gastrointestinal/Abdomen Exam: soft, normal bowel sounds Skin Exam: normal color, warm, dry Wound Assessment: Skin/Wound Assessment Wound/Incision Assessment Start: 12/23/22 05:46 Text: Status: Active Freq: Protocol: Document 12/23/22 05:46 SM (Rec: 12/23/22 05:48 SM [id number]) Wound/Incision Assessment Left Other Wound Assessment Admission Wound Type Skin Tear Wound Stage Non Pressure Wound Drainage Amount Large Drainage Description Serous Comment pt unable to tolerate loose gauze dressing. Pts leg on bettie pad to absorb moisture. <RAQUEL MOSS - Last Filed: 12/23/22 11:19> Final Diagnosis/Problem List - Final Discharge Diagnosis/Problem (1) Acute metabolic encephalopathy Status: Resolved Code(s): G93.41 - METABOLIC ENCEPHALOPATHY (2) Anemia Status: Chronic Code(s): D64.9 - ANEMIA, UNSPECIFIED (3) Chronic renal disease Status: Chronic Code(s): N18.9 - CHRONIC KIDNEY DISEASE, UNSPECIFIED (4) UTI (urinary tract infection) Status: Acute Code(s): N39.0 - URINARY TRACT INFECTION, SITE NOT SPECIFIED <RAQUEL MOSS - Last Filed: 12/23/22 11:19> Telemedicine Encounter - Telemedicine Encounter Telemedicine Encounter: The entirety of this encounter was performed via Telemedicine" <RAQUEL MOSS - Last Filed: 12/23/22 11:19> - Telemedicine Encounter Telemedicine Encounter: I have personally seen and examined patient and discussed care with Raquel Moss NP and reviewed pertinent clinical data including history, physical, and diagnostic findings. I agree with the assessment, and treatment plan as hernandez cribed in her original note. Please see below for my summary of findings and any additional assessment and plan, as well as any meaningful corrections or explanations of their note. My portion of visit was conducted entirely via telemedicine. 67-year-old with a history of HFrEF, CKD, anemia, VTE on Eliquis, and chronic pain on narcotics, who presented with severe encephalopathy and difficulty s tanding. This resolved quickly in the ER with Narcan. However, she had a slight drop in her hemoglobin from her baseline of 9-10 down to 8, and reported some red spots in her stool. She also had some possible UTI. She was admitted for observation. Repeat hemoglobin was improving, back to her baseline of 9. She also had no further hematochezia. Of note, she had some unchanged dilated bowel loops on CT scan, and she is currently pending follow-up with her surgeon. She had a prior colostomy that was taken down recently, and she has appearance of chronic partial SBO with plan for repeat scope next week and his office. Will send home with 7-day course of cefdinir. Dione Burks MD, PhD Internal Medicine Hospitalist [facility] <DIONE BURKS - Last Filed: 12/23/22 17:16> <RAQUEL MOSS - Last Filed: 12/23/22 11:19> <DIONE BURKS - Last Filed: 12/23/22 17:16> - Discharge Disposition: HOME HEALTH SERVICE Condition: Stable Prescriptions: New Cefdinir 300 mg PO DAILY 7 Days #7 cap Continue Tizanidine HCl 4 mg PO TID PRN PRN PRN Reason: Pain Furosemide [Lasix] 40 mg PO DAILY PRN PRN PRN Reason: swelling Promethazine HCl 25 mg [Phenergan 25 mg] 25 mg PO Q6H PRN PRN PRN Reason: Nausea/Vomiting Levothyroxine Sodium [Synthroid] 300 mcg PO BID Nitroglycerin 0.4 mg SL Q5MIN PRN MR X 3 PRN PRN Reason: Chest Pain Apixaban [Eliquis] 5 mg PO BID 1 Days Morphine Sulfate [Morphine Sulfate ER] 30 mg PO BID Famotidine 40 mg PO DAILY Metoprolol Succinate 25 mg Xl* [Toprol-Xl 25MG Tablets] 25 mg PO DAILY #30 tab Atorvastatin Calcium 20 mg PO QHS #30 tablet Aspirin EC 81 mg [Ecotrin 81 mg] 81 mg PO DAILY #30 tablet Amiodarone HCl [Pacerone] 100 mg PO DAILY Spironolact/Hydrochlorothiazid [Aldactazide 25-25 Tablet] 12.5 mg PO DAILY Instructions: Urinary Tract Infection, Adult (DC) Additional Instructions: HOME HEALTHCARE HAS BEEN SET UP WITH [facility]. THEY WILL CONTACT YOU TO MAKE AN APT TO COME SEE YOU. THEIR PHONE NUMBER IS [phone] IF YOU NEED ANYTHING BEFORE THEIR FIRST VISIT Patient advised to keep appt with surgeon for GI workup/scopes Follow up with: WAQAR CASTRO [Primary Care Provider] - 01/02/23 9:45 am TREE RICARDO [CONSULTING PHYSICIAN] - Forms: Discharge Instructions
[2022-12-23] MEDS ORDERED: NON-FORMULARY ITEM (Atorvastatin Calcium [Atorvastatin Calcium] 20 MG Tablet) PO SCH (22:00)
[2022-12-23] MEDS ORDERED: ZOCOR 20MG PO SCH (22:00)
== END 2022-12-23 12:11 | disposition home health service (06) ==
LOC: ED 21:38 → MED SURG 12-23 03:54
PROVIDERS: ADMIT Internal Medicine; ATTEND General Practice
DX: G93.41 Metabolic encephalopathy (principal); N39.0 Urinary tract infection, site not specified; D64.9 Anemia, unspecified; I12.9 Hypertensive chronic kidney disease with stage 1 through stage 4 chronic kidney disease, or unspecified chronic kidney disease; N18.9 Chronic kidney disease, unspecified; R60.0 Localized edema; Z79.01 Long term (current) use of anticoagulants; Z79.899 Other long term (current) drug therapy; Z20.828 Contact with and (suspected) exposure to other viral communicable diseases; Z85.850 Personal history of malignant neoplasm of thyroid
CPT/HCPCS: 36000; 36415; 74176; 80053; 81001; 82150; 82947; 83605; 83690; 84436; 84443; 84484; 85025; 85027; 87086; 93005; 93041; 93268; 94760; 96374; 99291; G0378; Q3014; 99285; J0696; J2310; J2405; A9270-GY

== ENCOUNTER 2023-01-01 15:33 | Emergency (ER) | payer MEDICARE ==
--- NOTE | 2023-01-01 15:46 | ERPHSYRPT ---
- History of Present Illness Historian: patient, family, old records Timing/Duration: today Quality: cramping Abdominal Pain Onset Location: generalized abdomen Severity of Pain-Max: moderate Severity of Pain-Current: moderate Modifying Factors: Worsens With: vomiting Associated Symptoms: nausea, No chest pain, No diarrhea, No fever/chills, No vomiting Previous symptoms: same symptoms as today, recently seen, recent hospitalization, recently treated Hx Tetanus, Diphtheria Vaccination/Date Given: Yes Hx Influenza Vaccination/Date Given: Yes Hx Pneumococcal Vaccination/Date Given: Yes - History of Present Illness Time Seen by Provider: 01/01/23 15:46 Physician History: This is a 67-year-old white female patient Dr. Castro who presents to the emergency department with abdominal pain and abdominal distention that began today. Patient states that she has not had any narcotic pain medicine in 2 day s. Patient has chronic, intermittent partial small bowel obstruction since the colostomy takedown and her rectosigmoid anastomosis. She was seen in our emergency department on 12/23/2022 which did show stable dilation of small bowel loops with air-fluid levels that are present into the same degree as the prior CT scan that I reviewed a month earlier. There is no evidence of free air or free fluid on that CAT scan dated 12/23/2022. Patient states that she was also admitted for 5 days in [place] at a hospital where she had her colostomy takedown performed. She was there for 5 days and then sent home without surgical intervention. Patient does not have chest pain. She is not short of breath. Patient has a history of atrial fibrillation on amiodarone and Eliquis, she has hypothyroidism, CHF, hypertension, degenerative disc disease, asthma and coronary artery disease (GA, pacemaker and defibrillator in place). (SKYE ALVARENGA) Allergies/Adverse Reactions: baclofen Allergy (Severe, Verified 01/01/23 15:47) Difficulty Breathing pt states stopped breathing Sulfa (Sulfonamide Antibiotics) [Sulfa(Sulfonamide Antibiotics)] Allergy (Elizabeth re, Verified 01/01/23 15:47) Nausea and Vomiting adhesive Allergy (Mild, Verified 01/01/23 15:47) Blisters codeine [Codeine] Allergy (Mild, Verified 01/01/23 15:47) Nausea and Vomiting iron Adverse Reaction (Intermediate, Verified 01/01/23 15:47) Nausea oxycodone [From Percocet] Adverse Reaction (Intermediate, Verified 01/01/23 15:47) Vomiting Home Medications: Tizanidine HCl 4 mg PO TID PRN PRN 11/10/17 [History] Furosemide [Lasix] 40 mg PO DAILY PRN PRN 03/09/18 [History] Promethazine HCl 25 mg [Phenergan 25 mg] 25 mg PO Q6H PRN PRN 01/14/19 [History] Levothyroxine Sodium [Synthroid] 300 mcg PO BID 04/29/19 [History] Nitroglycerin 0.4 mg SL Q5MIN PRN MR X 3 PRN 04/29/19 [History] Morphine Sulfate [Morphine Sulfate ER] 30 mg PO BID 07/30/21 [History] Famotidine 40 mg PO DAILY 03/12/22 [History] Amiodarone HCl [Pacerone] 100 mg PO DAILY 08/28/22 [History] Spironolact/Hydrochlorothiazid [Aldactazide 25-25 Tablet] 12.5 mg PO DAILY 12/23/22 [History] Travel Risk - International Travel Have you traveled outside of the country in past 3 weeks: No - Coronavirus Screening Are you exhibiting any of the following symptoms?: No Close contact with a COVID-19 positive Pt in past 14-21 Days: No - Vaccine Status Have you recieved a Covid-19 vaccination: No - Review of Systems Constitutional: No Symptoms Eyes: No Symptoms Ears, Nose, & Throat: No Symptoms Respiratory: No Symptoms Cardiac: No Symptoms Abdominal/Gastrointestinal: Abdominal Pain, Nausea, Appetite Changes, No Vomiting, No Diarrhea Genitourinary Symptoms: No Symptoms Musculoskeletal: No Symptoms Skin: No Symptoms Neurological: No Symptoms Psychological: No Symptoms Endocrine: No Symptoms Hematologic/Lymphatic: No Symptoms Immunological/Allergic: No Symptoms All Other Systems: Reviewed and Negative - Past Medical History Pertinent Past Medical History: Yes Neurological History: Migraines, Stroke ENT History: No Pertinent History Cardiac History: Arrhythmia, Congestive Heart Failure, Deep Vein Thrombosis, Hy pertension, Myocardial Infarction (GA) Respiratory History: Asthma Endocrine Medical History: Hypothyroidism, Thyroid Cancer Musculoskeletal History: Degenerative Disk Disease, Other GI Medical History: GERD, Hernia, Other History: Renal Disease, Other Psycho-Social History: No Pertinent History Female Reproductive Disorders: Endometriosis Other Medical History: PMHX: CARDIAC CATH, INTERNAL PACEMAKER/DEFIB, COLON RESECTION, HERNIA SX, BACK FUSION, hotn - Past Surgical History Past Surgical History: Yes Neuro Surgical History: No Pertinent History Cardiac: Cardiac Catheterization, Internal Defibrillator, Pacemaker, Other Respiratory: No Pertinent History Gastrointestinal: Appendectomy, Cholecystectomy, Colon Resection, Hernia Repair, Other Genitourinary: No Pertinent History Musculoskeletal: Orthopedic Surgery Female Surgical History: Hysterectomy Other Surgical History: Hernia repair with scar tissue removal and colostomy reversal at in [place] by Dr. Branch on 07/01/22, COLON RESECTION, BACK FUSION, THYROID REMOVED and Parotid gland removed, ankle surgery,. OCTOBER 2018 CAROTIDECTOMY AND LYMPH NODE REMOVAL ON RIGHT SIDE, "filter for blood clots 2018" - Social History Smoking Status: Never smoker Exposure to second hand smoke: No Alcohol Use: None Drug Use: none Patient Lives Alone: No (Kaveh ) Significant Family History: heart disease, cancer, diabetes - Physical Exam General Appearance: mild distress, alert, anxiety, obese Eye Exam: PERRL/EOMI, eyes nml inspection Ears, Nose, Throat Exam: normal ENT inspection, moist mucous membranes Neck Exam: normal inspection, non-tender, supple, full range of motion Respiratory Exam: normal breath sounds, lungs clear, airway intact, No chest tenderness, No respiratory distress Cardiovascular Exam: regular rate/rhythm, normal heart sounds, normal peripheral pulses Gastrointestinal/Abdomen Exam: soft, normal bowel sounds, tenderness, distention (Diffuse), guarding Pelvic Exam: not done (Diffuse with palpation) Rectal Exam: not done Back Exam: normal inspection, normal range of motion, No CVA tenderness, No vertebral tenderness Extremity Exam: normal inspection, normal range of motion, pelvis stable Neurologic Exam: alert, oriented x 3, cooperative, ged instructor II-XII nml as tested, normal mood/affect, nml cerebellar function, nml station & gait, sensation nml Skin Exam: normal color, warm, dry Lymphatic Exam: adenopathy SpO2 Interpretation: normal O2 Delivery: Room Air - Nursing Vital Signs Nursing Vital Signs: Initial Vital Signs Temperature 97.3 F 01/01/23 15:42 Pulse Rate 100 H 01/01/23 15:42 Respiratory Rate 24 01/01/23 15:42 Blood Pressure 124/94 01/01/23 15:42 O2 Sat by Pulse Oximetry 98 01/01/23 15:42 Pain Scale Pain Intensity 4 - Course Nursing assessment & vital signs reviewed: Yes Ordered Tests: Medication Summary Discontinued Medications Generic Name Dose Route Start Last Admin Trade Name Brad PRN Reason Stop Dose Admin Fentanyl Citrate 50 mcg 01/01/23 15:53 01/01/23 16:10 Fentanyl Citrate 100 Mcg/2 Ml* Vial IV 01/01/23 15:54 50 mcg STAT ONE Administration Fentanyl Citrate Confirm 01/01/23 16:08 Fentanyl Citrate 100 Mcg/2 Ml* Vial Administered 01/01/23 16:09 Dose 100 mcg .ROUTE .STK-MED ONE Fentanyl Citrate 50 mcg 01/01/23 18:35 01/01/23 18:41 Fentanyl Citrate 100 Mcg/2 Ml* Vial IV 01/01/23 18:36 50 mcg STAT ONE Administration Fentanyl Citrate Confirm 01/01/23 18:40 Fentanyl Citrate 100 Mcg/2 Ml* Vial Administered 01/01/23 18:41 Dose 100 mcg .ROUTE .STK-MED ONE Glycerin 1 supp.rect 01/01/23 16:10 01/01/23 19:16 Glycerin 1 Supp.Rect Adult RC 01/01/23 16:11 Not Given STAT ONE Sodium Chloride 1,000 mls @ 100 mls/hr 01/01/23 16:00 01/01/23 16:10 Sodium Chloride 0.9% 1000 Ml IV 01/31/23 15:59 100 mls/hr .Q10H JUSTIN Administration Sodium Chloride Confirm 01/01/23 16:08 Sodium Chloride 0.9% 1000 Ml Administered 01/01/23 16:09 Dose 1,000 mls @ ud .ROUTE .STK-MED ONE Ondansetron HCl 4 mg 01/01/23 15:53 01/01/23 16:10 Ondansetron Hcl 4 Mg/2 Ml Vial IV 01/01/23 15:54 4 mg STAT ONE Administration Ondansetron HCl Confirm 01/01/23 16:07 Ondansetron Hcl 4 Mg/2 Ml Vial Administered 01/01/23 16:08 Dose 4 mg .ROUTE .STK-MED ONE Lab/Rad Data: Laboratory Result Diagrams 01/01/23 16:00 01/01/23 16:00 Laboratory Results 01/01/23 01/01/23 01/01/23 Range/Units 18:42 16:05 16:00 WBC (4.0-10.5) x10^3/uL RBC (4.1-5.4) x10^6/uL Hgb (12.0-16.0) g/dL Hct (35-47) % MCV (78-100) fL MCH (26-32) pg MCHC (32-36) g/dL RDW (11.5-14.0) % Plt Count (150-450) x10^3/uL MPV (7.5-11.0) fL Gran % (36.0-66.0) % Immature Gran % (Auto) (0.00-0.4) % Nucleat RBC Rel Count (0.00-0.1) % Eos # (Auto) (0-0.5) x10^3/uL Immature Gran # (Auto) (0.00-0.03) x10^3u/L Absolute Lymphs (auto) (1.0-4.6) x10^3/uL Absolute Monos (auto) (0.0-1.3) x10^3/uL Absolute Nucleated RBC (0.00-0.01) x10^3u/L Lymphocytes % (24.0-44.0) % Monocytes % (0.0-12.0) % Eosinophils % (0.00-5.0) % Basophils % (0.0-0.4) % Absolute Granulocytes (1.4-6.9) x10^3/uL Basophils # (0-0.4) x10^3/uL Sodium 136 L (137-145) mmol/L Potassium 3.5 (3.5-5.1) mmol/L Chloride 97 L (98-107) mmol/L Carbon Dioxide 30 (22-30) mmol/L Anion Gap 12.6 (5-15) MEQ/L BUN 28 H (7-17) mg/dL Creatinine 0.93 (0.52-1.04) mg/dL Estimated GFR > 60.0 ML/MIN Glucose 127 H (74-106) mg/dL Lactic Acid 1.2 (0.4-2.0) Calcium 8.8 (8.4-10.2) mg/dL Total Bilirubin 0.80 (0.2-1.3) mg/dL AST 68 H (14-36) U/L ALT 34 (0-35) U/L Alkaline Phosphatase 118 (38-126) U/L Serum Total Protein 7.6 (6.3-8.2) g/dL Albumin 3.8 (3.5-5.0) g/dL Amylase 50 (30-110) U/L Lipase 142 (23-300) U/L Urine Color Yellow (Yellow) Urine Appearance Clear (Clear) Urine pH 7.0 (4.6-8.0) Ur Specific [place] 1.025 (1.005-1.030) Urine Protein 30 (Negative) Urine Glucose (UA) Negative (Negative) mg/dL Urine Ketones Trace A (Negative) Urine Blood Negative (Negative) Urine Nitrite Negative (Negative) Urine Bilirubin Negative (Negative) Urine Urobilinogen 1.0 A (0.2) mg/dL Ur Leukocyte Esterase Trace A (Negative) U Hyaline Cast (Auto) NONE SEEN (0-2) /LPF Urine Microscopic RBC 0-2 (0-5) /HPF Urine Microscopic WBC 0-2 (0-5) /HPF Ur Epithelial Cells Rare (None Seen) /HPF Urine Bacteria Rare A (None Seen) /HPF Urine Culture Reflexed ORDERED SEPARATELY (NO) 01/01/23 Range/Units 16:00 WBC 9.7 (4.0-10.5) x10^3/uL RBC 4.20 (4.1-5.4) x10^6/uL Hgb 10.7 L (12.0-16.0) g/dL Hct 34.3 L (35-47) % MCV 81.7 (78-100) fL MCH 25.5 L (26-32) pg MCHC 31.2 L (32-36) g/dL RDW 17.5 H (11.5-14.0) % Plt Count 322 (150-450) x10^3/uL MPV 9.6 (7.5-11.0) fL Gran % 60.4 (36.0-66.0) % Immature Gran % (Auto) 0.5 H (0.00-0.4) % Nucleat RBC Rel Count 0.0 (0.00-0.1) % Eos # (Auto) 0.04 (0-0.5) x10^3/uL Immature Gran # (Auto) 0.05 H (0.00-0.03) x10^3u/L Absolute Lymphs (auto) 2.95 (1.0-4.6) x10^3/uL Absolute Monos (auto) 0.76 (0.0-1.3) x10^3/uL Absolute Nucleated RBC 0.00 (0.00-0.01) x10^3u/L Lymphocytes % 30.3 (24.0-44.0) % Monocytes % 7.8 (0.0-12.0) % Eosinophils % 0.4 (0.00-5.0) % Basophils % 0.6 (0.0-0.4) % Absolute Granulocytes 5.88 (1.4-6.9) x10^3/uL Basophils # 0.06 (0-0.4) x10^3/uL Sodium (137-145) mmol/L Potassium (3.5-5.1) mmol/L Chloride (98-107) mmol/L Carbon Dioxide (22-30) mmol/L Anion Gap (5-15) MEQ/L BUN (7-17) mg/dL Creatinine (0.52-1.04) mg/dL Estimated GFR ML/MIN Glucose (74-106) mg/dL Lactic Acid (0.4-2.0) Calcium (8.4-10.2) mg/dL Total Bilirubin (0.2-1.3) mg/dL AST (14-36) U/L ALT (0-35) U/L Alkaline Phosphatase (38-126) U/L Serum Total Protein (6.3-8.2) g/dL Albumin (3.5-5.0) g/dL Amylase (30-110) U/L Lipase (23-300) U/L Urine Color (Yellow) Urine Appearance (Clear) Urine pH (4.6-8.0) Ur Specific [place] (1.005-1.030) Urine Protein (Negative) Urine Glucose (UA) (Negative) mg/dL Urine Ketones (Negative) Urine Blood (Negative) Urine Nitrite (Negative) Urine Bilirubin (Negative) Urine Urobilinogen (0.2) mg/dL Ur Leukocyte Esterase (Negative) U Hyaline Cast (Auto) (0-2) /LPF Urine Microscopic RBC (0-5) /HPF Urine Microscopic WBC (0-5) /HPF Ur Epithelial Cells (None Seen) /HPF Urine Bacteria (None Seen) /HPF Urine Culture Reflexed (NO) - Progress Progress: improved, pain not gone completely Counseled pt/family regarding: lab results, diagnosis, need for follow-up, rad results - Progress Progress Note: Patient endorsed to Dr. Rosales at approximately [address] Rosales tasked with following up on urinalysis. We discussed patient's disposition. Dr. Alvarenga feels patient is safe to go home. I reassessed patient at time of discharge. Patient is well. No active pain. Patient resting comfortably alert oriented x4. Urinalysis negative for urinary tract infection. No indication for antibiotics at this time. Patient currently has a follow-up appointment scheduled with her surgeon on Friday. Patient states she will definitely attend and not miss her appointment. Patient states he is ready for discharge. She voices no other complaints or concerns at this time. Plan of care established via shared decision making. Vital stable. No social determinants of health present to impede follow-up. Time to discharge patient is approximately 10 minutes. Portions of this note were created with voice recognition technology. There may be grammatical, spelling, punctuation or sound alike errors 01/01/23 19:20 (SADIQ ROSALES) 01/01/23 17:40 This patient's medical issue is 1 of moderate complexity. Level complexity in the work-up performed is based on the patient's past medical history, review of several CT scans of the abdomen pelvis that have been performed for this condition since November 02, 2022, review of inpatient notes and summaries from this hospital, review of medication list, review of patient drug allergy list, history of present illness and physical findings on examination. The work-up includes placement of an intravenous line, infusion of normal saline solution, infusion of fentanyl 50 mcg IV and Zofran 4 mg intravenous IV, CBC, lactic acid, CMP, amylase, lipase and urinalysis. We are waiting for the results of the urinalysis 01/01/23 17:52 CAT scan of the abdomen pelvis without contrast was interpreted by the radiologist and reviewed by me. Since November 02 for separate emergency room visits have ordered CAT scans on this patient's abdomen pelvis. They have all been grossly unchanged. There is stable fluid distended bowel loops to the level of the rectosigmoid junction where she had a colostomy takedown and rectosigmoid anastomosis. 01/01/23 18:28 I had a long discussion with the patient and her spouse. This patient's colostomy takedown was in June 2022 and since that time she has been seen in this emergency department several times for the same issue. Patient has also seen her primary surgeon up in [place] where she had an attempt at endoscopic stretching of the site of anastomosis without benefit. Other than the endoscopic intervention, the patient has had no other surgical intervention. She has admissions for partial small bowel obstruction. Again, she has a partial bowel obstruction. It appears as though it is at the site of anastomosis. She is not vomiting. She is afebrile. Her lactic acid is normal. She has a normal white count with a normal differential. It does not appear as though she has ischemic bowel. The patient has had 2 bowel movements here in the emergency department that they have been liquid and pasty. She has been passing flatus. She still has abdominal distention but she has had this present in the last several months. Patient will undergo straight catheterization for urine specimen. The patient has narcotic pain medicine at home. We will provide her another dose of fentanyl here in the emergency department. The patient and her desire to be discharged to home if possible. They have an appointment to see their surgeon in [place] on Friday morning, 01/03/2023. We are going to wait for the urinalysis results to return. 01/03/23 07:48 Late entry addendum: This patient was signed out to Dr. Rosales at shift change on 01/01/2023 at approximately 7 PM. He was going to follow-up on the results of the testing and make final disposition. (SKYE ALVARENGA) Medical Desision Making - Independent Historian Additional History obtained from: Spouse - Diagnostic Testing Diagnostic test were ordered, analyzed, and reviewed by me: Yes Radiological Interpretation: Reviewed by me, Teleradiologist Report - Risk of complications Low Risk: Low risk of morbidity from additional dx testing or treatment - Departure Departure Disposition: Home Critical Care Time: No - Departure Clinical Impression: Partial bowel obstruction Condition: Stable Referrals: WAQAR CASTRO [Primary Care Provider] - Follow up/PCP as directed Instructions: Small bowel obstruction
[2023-01-01] MEDS ORDERED: SUBLIMAZE 100 MCG/2 ML IV ONE ×2 (15:53→18:35)
[2023-01-01] MEDS ORDERED: Zofran 4 MG/2 ML VIAL IV ONE (15:53)
[2023-01-01 16:00] VITALS: PULSE 100; TEMP 97.3
[2023-01-01] MEDS ORDERED: Sodium Chloride 0.9% 1000 ML 1,000 ML IV SCH (16:00)
[2023-01-01] MEDS ORDERED: Zofran 4 MG/2 ML VIAL ONE (16:07)
[2023-01-01] MEDS ORDERED: SUBLIMAZE 100 MCG/2 ML ONE ×2 (16:08→18:40)
[2023-01-01] MEDS ORDERED: Sodium Chloride 0.9% 1000 ML 1,000 ML ONE (16:08)
[2023-01-01] MEDS ORDERED: GLYCERIN ADULT SUPPOSITORY RC ONE (16:10)
[2023-01-01 16:39] LABS: Absolute Neutrophil Ct (ANC) 5.88 x10^3/uL (1.4-6.9); BASOPHIL % 0.6 % (0.0-0.4); Basophil (Absolute #) 0.06 x10^3/uL (0-0.4); Eosinophil % 0.4 % (0.00-5.0); Eosinophil (Absolute #) 0.04 x10^3/uL (0-0.5); Hematocrit 34.3 % (35-47); Hemoglobin 10.7 g/dL (12.0-16.0); IMMATURE GRAN # 0.05 x10^3u/L (0.00-0.03); IMMATURE GRAN % 0.5 % (0.00-0.4); Lymphocyte (Absolute #) 2.95 x10^3/uL (1.0-4.6); Lymphocytes % 30.3 % (24.0-44.0); Mean Cell Volume 81.7 fL (78-100); Mean Corpuscular Hemoglobin 25.5 pg (26-32); Mean Corpuscular Hgb Concent. 31.2 g/dL (32-36); Mean Platelet Volume 9.6 fL (7.5-11.0); Monocyte (Absolute #) 0.76 x10^3/uL (0.0-1.3); Monocytes % 7.8 % (0.0-12.0); Neutrophil % 60.4 % (36.0-66.0); Platelet Count 322 x10^3/uL (150-450); Red Cell Distribution Width 17.5 % (11.5-14.0); White Blood Count 9.7 x10^3/uL (4.0-10.5)
[2023-01-01 16:51] LABS: ALBUMIN 3.8 g/dL (3.5-5.0); ALKALINE PHOSPHATASE 118 U/L (38-126); AMYLASE 50 U/L (30-110); ANION GAP 12.6 MEQ/L (5-15); BLOOD UREA NITROGEN 28 mg/dL (7-17); CHLORIDE 97 mmol/L (98-107); Calcium 8.8 mg/dL (8.4-10.2); Carbon Dioxide 30 mmol/L (22-30); Creatinine 1 0.93 mg/dL (0.52-1.04); EST GLOMERULAR FILTRATION RATE > 60.0 ML/MIN; Glucose 127 mg/dL (74-106); LIPASE 142 U/L (23-300); Potassium 3.5 mmol/L (3.5-5.1); SGOT/AST 68 U/L (14-36); SGPT/ALT 34 U/L (0-35); SODIUM 136 mmol/L (137-145); Total Protein 7.6 g/dL (6.3-8.2)
--- NOTE | 2023-01-01 17:03 | XRAY ---
Indication: Abdomen pain and distention. Multiple contiguous axial images obtained through the abdomen and pelvis without contrast. Comparison: December 23, 2022 Lung bases again demonstrates subsegmental atelectasis/scarring and cardiomegaly with pacer lead. No infiltrate or effusion. Stomach now mildly distended with food/fluid. Again abnormal distended bowel loops again up to 5 cm diameter with fluid leveling. This is again seen to the level of the rectosigmoid junction again concerning for obstruction. Stable 7 mm dense left renal cortical lesion, hysterectomy, and cholecystectomy. No free fluid/air. Remaining liver, pancreas, spleen, adrenal glands, kidneys, ureters, and bladder are unremarkable for noncontrast exam. Stable minimal aortoiliac calcifications without AAA. Stable IVC filter with bilateral caval stents. Impression: 1. Grossly stable fluid distended bowel loops with fluid leveling to the level of rectosigmoid junction again concerning for obstruction. This has been grossly unchanged since last 4 ER visits since November 02, 2022. 2. Again chronic findings including cardiomegaly, and chronic vascular findings.
[2023-01-01 18:47] VITALS: O2SAT 97
[2023-01-01 19:15] LABS: ADD URINE CULTURE? ORDERED SEPARATELY (NO); Appearance Clear (Clear); Bacteria Rare /HPF (None Seen); Bilirubin Negative (Negative); Blood Negative (Negative); Epithelial Cells Rare /HPF (None Seen); Glucose, Urine Negative (Negative); Hyaline Casts NONE SEEN /LPF (0-2); Ketones Trace (Negative); Leukocyte Esterase Trace (Negative); Nitrite Negative (Negative); Protein,Urine Dip 30 (Negative); RBC 0-2 /HPF (0-5); Specific Gravity 1.025 (1.005-1.030); WBC 0-2 /HPF (0-5)
[2023-01-01 20:08] VITALS: BP 138/93; RESP 20
== END 2023-01-01 19:55 | disposition home or self-care (01) ==
LOC: ED 15:33
DX: K56.600 Partial intestinal obstruction, unspecified as to cause (principal); R10.9 Unspecified abdominal pain; R14.0 Abdominal distension (gaseous); I11.0 Hypertensive heart disease with heart failure; I50.9 Heart failure, unspecified; Z79.891 Long term (current) use of opiate analgesic; Z79.899 Other long term (current) drug therapy; Z28.310 Unvaccinated for COVID-19
CPT/HCPCS: 36000; 36415; 74176; 80053; 81001; 82150; 83605; 83690; 85025; 87040; 87086; 96374; 96375; 96376; 99284; P9612; J2405; J3010

== ENCOUNTER 2023-05-14 14:46 | Emergency (ER) | payer MEDICARE ==
[2023-05-14 15:03] VITALS: PULSE 100; TEMP 97.4
[2023-05-14] MEDS ORDERED: Sodium Chloride 0.9% 1000 ML 1,000 ML IV SCH (15:15)
--- NOTE | 2023-05-14 15:29 | ERPHSYRPT ---
- History of Present Illness Time Seen by Provider: 05/14/23 15:10 Source: patient Exam Limitations: no limitations Patient Subjective Stated Complaint: pt here for a headache and blurred vision that started at 2200 last night,no injury Triage Nursing Assessment: pt alert,oriented walked in, gait steady, resp easy, skin w/d/p. has swelling and redness to lower legs that is normal for her, Physician History: Patient is a 67-year-old female presents to our ED for evaluation of a migraine headache and blurred vision that started acutely yesterday at approximately 10 PM. Patient awoke this morning with the same symptoms. Patient expected the symptoms to resolve however symptoms are ongoing. No associated focal or lateralizing symptoms. No numbness tingling or weakness. Patient states that she tried driving her vehicle to our hospital but was unable to do so. Significant other was with her states he she kept driving off of the road. No associated chest pain or shortness of breath. No nausea vomiting or diaphoresis. Symptoms are moderate in intensity. No specific worsening or improving factors. Patient otherwise feels well. She voices no other complaints or concerns at this time. Timing/Duration: yesterday Severity: moderate Modifying Factors: Improves With: nothing Associated Symptoms: denies symptoms Allergies/Adverse Reactions: baclofen Allergy (Severe, Verified 05/14/23 14:54) Difficulty Breathing pt states stopped breathing Sulfa (Sulfonamide Antibiotics) [Sulfa(Sulfonamide Antibiotics)] Allergy (Severe, Verified 05/14/23 14:54) Nausea and Vomiting adhesive Allergy (Mild, Verified 05/14/23 14:54) Blisters codeine [Codeine] Allergy (Mild, Verified 05/14/23 14:54) Nausea and Vomiting iron Adverse Reaction (Intermediate, Verified 05/14/23 14:54) Nausea oxycodone [From Percocet] Adverse Reaction (Intermediate, Verified 05/14/23 14:54) Vomiting Home Medications: Tizanidine HCl 4 mg PO TID PRN PRN 11/10/17 [History] Furosemide [Lasix] 40 mg PO DAILY PRN PRN 03/09/18 [History] Levothyroxine Sodium [Synthroid] 300 mcg PO BID 04/29/19 [History] Nitroglycerin 0.4 mg SL Q5MIN PRN MR X 3 PRN 12/12/19 [History] Morphine Sulfate [Morphine Sulfate ER] 30 mg PO BID 07/30/21 [History] Famotidine 40 mg PO DAILY 03/12/22 [History] Gabapentin [Neurontin ] 100 mg PO DAILY 05/14/23 [History] Hx Tetanus, Diphtheria Vaccination/Date Given: Yes Hx Influenza Vaccination/Date Given: Yes Hx Pneumococcal Vaccination/Date Given: Yes Immunizations Up to Date: Yes Travel Risk - International Travel Have you traveled outside of the country in past 3 weeks: No - Coronavirus Screening Are you exhibiting any of the following symptoms?: No Close contact with a COVID-19 positive Pt in past 14-21 Days: No - Vaccine Status Have you recieved a Covid-19 vaccination: No - Review of Systems Constitutional: No Symptoms, No Fever, No Chills Eyes: No Symptoms Ears, Nose, & Throat: No Symptoms Respiratory: No Symptoms, No Cough, No Dyspnea Cardiac: No Symptoms, No Chest Pain, No Edema, No Syncope Abdominal/Gastrointestinal: No Symptoms, No Abdominal Pain, No Nausea, No Vomiting, No Diarrhea Genitourinary Symptoms: No Symptoms, No Dysuria Musculoskeletal: No Symptoms, No Back Pain, No Neck Pain Skin: No Symptoms, No Rash Neurological: No Symptoms, No Dizziness, No Focal Weakness, No Sensory Changes Psychological: No Symptoms Endocrine: No Symptoms Hematologic/Lymphatic: No Symptoms Immunological/Allergic: No Symptoms All Other Systems: Reviewed and Negative - Past Medical History Pertinent Past Medical History: Yes Neurological History: Migraines, Stroke ENT History: No Pertinent History Cardiac History: Arrhythmia, Congestive Heart Failure, Deep Vein Thrombosis, Hypertension, Myocardial Infarction ([place]) Respiratory History: Asthma Endocrine Medical History: Hypothyroidism, Thyroid Cancer Musculoskeletal History: Degenerative Disk Disease, Other GI Medical History: GERD, Hernia, Other History: Renal Disease, Other Psycho-Social History: No Pertinent History Female Reproductive Disorders: Endometriosis Other Medical History: PMHX: CARDIAC CATH, INTERNAL PACEMAKER/DEFIB, COLON RESECTION, HERNIA SX, BACK FUSION, hotn - Past Surgical History Past Surgical History: Yes Neuro Surgical History: No Pertinent History Cardiac: Cardiac Catheterization, Internal Defibrillator, Pacemaker, Other Respiratory: No Pertinent History Gastrointestinal: Appendectomy, Cholecystectomy, Colon Resection, Hernia Repair, Other Genitourinary: No Pertinent History Musculoskeletal: Orthopedic Surgery Female Surgical History: Hysterectomy Other Surgical History: Hernia repair with scar tissue removal and colostomy r eversal at in [place] by Dr. Branch on 07/01/22, COLON RESECTION, BACK FUSION, THYROID REMOVED and Parotid gland removed, ankle surgery,. OCTOBER 2018 CAROTIDECTOMY AND LYMPH NODE REMOVAL ON RIGHT SIDE, "filter for blood clots 2018" - Social History Smoking Status: Never smoker Exposure to second hand smoke: No Alcohol Use: None Drug Use: none Patient Lives Alone: No (Kaveh ) Significant Family History: heart disease, cancer, diabetes - Nursing Vital Signs Nursing Vital Signs: Initial Vital Signs Temperature 97.4 F 05/14/23 14:57 Pulse Rate 100 H 05/14/23 14:57 Respiratory Rate 16 05/14/23 14:57 Blood Pressure 101/73 05/14/23 14:57 O2 Sat by Pulse Oximetry 96 05/14/23 14:57 Pain Scale Pain Intensity 9 - Physical Exam General Appearance: no apparent distress, alert Eye Exam: PERRL/EOMI, eyes nml inspection Ears, Nose, Throat Exam: normal ENT inspection, TMs normal, pharynx normal, moist mucous membranes Neck Exam: normal inspection, non-tender, supple, full range of motion Respiratory Exam: normal breath sounds, lungs clear, airway intact, No respiratory distress Cardiovascular Exam: regular rate/rhythm, normal heart sounds, normal peripheral pulses Gastrointestinal/Abdomen Exam: soft, normal bowel sounds, No tenderness, No mass Back Exam: normal inspection, normal range of motion, No CVA tenderness, No vertebral tenderness Extremity Exam: normal inspection, normal range of motion, pelvis stable Neurologic Exam: alert, oriented x 3, cooperative, normal mood/affect, sensation nml, No motor deficits Skin Exam: normal color, warm, dry, No rash Lymphatic Exam: No adenopathy SpO2 Interpretation: normal SpO2: 96 O2 Delivery: Room Air - Course Nursing assessment & vital signs reviewed: Yes EKG Interpreted by Me: RATE (100 AV dual paced rhythm with some inhibition. By ventricular paced rhythm) - CT Exams Abdomen/Pelvis CT Interpretation: Tele-radiologist Report (Stable small hiatal hernia. Fatty hepatomegaly. Minimal diverticulosis. No new acute findings) Other CT Interpretation: Tele-radiologist Report (Continued normal CTA neck compared to 06/21/2022) Head CT Interpretation: Tele-radiologist Report (Continued negative CTA head compared to 06/21/2022) Ordered Tests: Active Orders 24 hr Category Date Time Status Marketing Operations Consultant STAT Care 05/14/23 15:04 Active EKG-ER Only STAT Care 05/14/23 15:03 Active IV Insertion STAT Care 05/14/23 15:03 Active Pulse Oximetry (ED) STAT Care 05/14/23 15:[address] ANGIOGRAPHY NECK [CT] Stat Exams 05/14/23 20:46 Taken CTA HEAD W AND/OR WO CONTRAST [CT] Stat Exams 05/14/23 20:48 Taken HEAD WITHOUT CONTRAST [CT] Stat Exams 05/14/23 15:51 Completed CBC W DIFF Stat Lab 05/14/23 15:28 Completed CMP Stat Lab 05/14/23 15:28 Completed TROPONIN Q4H Lab 05/14/23 15:28 Completed TROPONIN Q4H Lab 05/14/23 18:55 Completed TROPONIN Q4H Lab 05/14/23 23:15 Ordered Medication Summary Generic Name Dose Route Start Last Admin Trade Name Freq PRN Reason Stop Dose Admin Sodium Chloride 1,000 mls @ 50 mls/hr 05/14/23 15:15 05/14/23 15:37 Sodium Chloride 0.9% 1000 Ml IV 06/13/23 15:14 50 mls/hr .Q20H JUSTIN Administration Discontinued Medications Generic Name Dose Route Start Last Admin Trade Name Freq PRN Reason Stop Dose Admin Aspirin 324 mg 05/14/23 20:22 05/14/23 20:45 Aspirin 81 Mg Tab.Chew PO 05/14/23 20:23 324 mg STAT ONE Administration Aspirin Confirm 05/14/23 20:41 Aspirin 81 Mg Tab.Chew Administered 05/14/23 20:42 Dose 324 mg .ROUTE .STK-MED ONE Morphine Sulfate 2 mg 05/14/23 20:50 05/14/23 20:54 Morphine Sulfate 2 Mg/Ml Inj IV 05/14/23 20:51 2 mg STAT ONE Administration Morphine Sulfate Confirm 05/14/23 20:53 Morphine Sulfate 2 Mg/Ml Inj Administered 05/14/23 20:54 Dose 2 mg .ROUTE .STK-MED ONE Lab/Rad Data: Laboratory Result Diagrams 05/14/23 15:28 05/14/23 15:28 Laboratory Results 05/14/23 05/14/23 05/14/23 Range/Units 18:55 15:28 15:28 WBC (4.0-10.5) x10^3/uL RBC (4.1-5.4) x10^6/uL Hgb (12.0-16.0) g/dL Hct (35-47) % MCV (78-100) fL MCH (26-32) pg MCHC (32-36) g/dL RDW (11.5-14.0) % Plt Count (150-450) x10^3/uL MPV (7.5-11.0) fL Gran % (36.0-66.0) % Immature Gran % (Auto) (0.00-0.4) % Nucleat RBC Rel Count (0.00-0.1) % Eos # (Auto) (0-0.5) x10^3/uL Immature Gran # (Auto) (0.00-0.03) x10^3u/L Absolute Lymphs (auto) (1.0-4.6) x10^3/uL Absolute Monos (auto) (0.0-1.3) x10^3/uL Absolute Nucleated RBC (0.00-0.01) x10^3u/L Lymphocytes % (24.0-44.0) % Monocytes % (0.0-12.0) % Eosinophils % (0.00-5.0) % Basophils % (0.0-0.4) % Absolute Granulocytes (1.4-6.9) x10^3/uL Basophils # (0-0.4) x10^3/uL Sodium 136 L (137-145) mmol/L Potassium 3.8 (3.5-5.1) mmol/L Chloride 109 H (98-107) mmol/L Carbon Dioxide 19 L (22-30) mmol/L Anion Gap 11.3 (5-15) MEQ/L BUN 36 H (7-17) mg/dL Creatinine 1.36 H (0.52-1.04) mg/dL Estimated GFR 43.0 ML/MIN Glucose 108 H (74-106) mg/dL Calcium 8.4 (8.4-10.2) mg/dL Total Bilirubin 0.50 (0.2-1.3) mg/dL AST 28 (14-36) U/L ALT 13 (0-35) U/L Alkaline Phosphatase 115 (38-126) U/L Troponin I 0.064 H* 0.041 H* (0.000-0.034) ng/mL Serum Total Protein 7.1 (6.3-8.2) g/dL Albumin 3.5 (3.5-5.0) g/dL 05/14/ Range/Units 15:28 WBC 6.6 (4.0-10.5) x10^3/uL RBC 3.53 L (4.1-5.4) x10^6/uL Hgb 9.0 L (12.0-16.0) g/dL Hct 30.5 L (35-47) % MCV 86.4 (78-100) fL MCH 25.5 L (26-32) pg MCHC 29.5 L (32-36) g/dL RDW 16.4 H (11.5-14.0) % Plt Count 263 (150-450) x10^3/uL MPV 9.0 (7.5-11.0) fL Gran % 63.3 (36.0-66.0) % Immature Gran % (Auto) 0.3 (0.00-0.4) % Nucleat RBC Rel Count 0.0 (0.00-0.1) % Eos # (Auto) 0.17 (0-0.5) x10^3/uL Immature Gran # (Auto) 0.02 (0.00-0.03) x10^3u/L Absolute Lymphs (auto) 1.67 (1.0-4.6) x10^3/uL Absolute Monos (auto) 0.51 (0.0-1.3) x10^3/uL Absolute Nucleated RBC 0.00 (0.00-0.01) x10^3u/L Lymphocytes % 25.3 (24.0-44.0) % Monocytes % 7.7 (0.0-12.0) % Eosinophils % 2.6 (0.00-5.0) % Basophils % 0.8 (0.0-0.4) % Absolute Granulocytes 4.19 (1.4-6.9) x10^3/uL Basophils # 0.05 (0-0.4) x10^3/uL Sodium (137-145) mmol/L Potassium (3.5-5.1) mmol/L Chloride (98-107) mmol/L Carbon Dioxide (22-30) mmol/L Anion Gap (5-15) MEQ/L BUN (7-17) mg/dL Creatinine (0.52-1.04) mg/dL Estimated GFR ML/MIN Glucose (74-106) mg/dL Calcium (8.4-10.2) mg/dL Total Bilirubin (0.2-1.3) mg/dL AST (14-36) U/L ALT (0-35) U/L Alkaline Phosphatase (38-126) U/L Troponin I (0.000-0.034) ng/mL Serum Total Protein (6.3-8.2) g/dL Albumin (3.5-5.0) g/dL - Progress Progress: improved Progress Note: Case discussed with Dr. Godwin at 6:48 PM. She feels patient has right leg weakness and a left-sided hemianopsia. She is recommending a CTA head neck and inpatient admission including an MRI and an echo. Patient is currently on Eliquis 05/14/23 18:50 Patient is currently on Eliquis. No indication for additional anticoagulation. Aspirin administered 05/14/23 20:[address] Villagomez at 8:[address] Villagomez ER physician at [facility] declined transfer on the basis that patient requires a CT a head and neck before transfer in spite of the elevating troponin. Patient symptoms have been ongoing for over [address] Villagomez states that we must rule out LVO prior to transfer 05/14/23 20:53 Case discussed with skiver uppers or linings at [facility] who accepts transfer at 8:57 PM. He advises discussing case with hospitalist prior to transfer. 05/14/23 20:[address] Alvares at 10:[address] Alvares hospitalist at [facility] who accepts transfer. 05/14/23 22:41 CTA head and neck are negative. Patient will be transferred to [facility]. Patient is a 67-year-old female presents to our ED for evaluation of a headache and blurred vision. Teleneurologist feels patient has a right-sided hemianopsia with left lower extremity weakness. Teleneurologist recommended CT angio head and neck. Patient unable to obtain MRI due to pacemaker. CT angio head and neck negative. Patient be transferred to [facility] for further evaluation and treatment. Portions of this note were created with voice recognition technology. There may be grammatical, spelling, punctuation or sound alike errors Complexity of problem addressed is moderate acute complicated No critical care time Complexity of data reviewed and analyzed is extensive. Test ordered test reviewed. Results analyzed and correlated clinically with history and physical exam. Results and management discussed with multiple physicians please see above. Patient will be transferred to [facility] for further evaluation and treatment. Risk of complication and risk morbidity/mortality patient management is high Vital stable. Time spent to transfer patient is approximately 20 minutes. Plan of care established for shared decision making. No social determinants of health present impede follow-up. Portions of this note were created with voice recognition technology. There may be grammatical, spelling, punctuation or sound alike errors 05/14/23 23:11 Counseled pt/family regarding: lab results, diagnosis, need for follow-up, rad results - Departure Departure Disposition: Transfer Clinical Impression: Chronic renal insufficiency, NSTEMI (non-ST elevated myocardial infarction), Elevated troponin, Normocytic anemia Condition: Stable Critical Care Time: No Referrals: WAQAR CASTRO [Primary Care Provider] - Follow up/PCP as directed Additional Instructions: Discharge/Care Plan ROSA MARIASTELLA LYN was seen on 05/14/23 in the Emergency Room. The patient was counseled regarding Diagnosis,Lab results, Imaging studies, need for follow up and when to return to the Emergency Room. Prescriptions given: Discharge Note I have spoken with the patient and/or caregivers. I have explained the patient's condition, diagnosis and treatment plan based on the information available to me at this time. I have answered the patient's and/or caregiver's questions and addressed any concerns. The patient and/or caregivers have as good understanding of the patient's diagnosis, condition and treatment plan as can be expected at this point. The vital signs have been stable. The patient's condition is stable and appropriate for discharge from the emergency department. The patient will pursue further outpatient evaluation with the primary care physician or other designated or consulting physician as outlined in the discharge instructions. The patient and/or caregivers are agreeable to this plan of care and follow-up instructions have been explained in detail. The patient a nd/or caregivers have received these instruction. The patient/and or caregivers are aware that any significant change in condition or worsening of symptoms should prompt an immediate return to this or the closest emergency department or call 911.
[2023-05-14 15:32] LABS: Absolute Neutrophil Ct (ANC) 4.19 x10^3/uL (1.4-6.9); BASOPHIL % 0.8 % (0.0-0.4); Basophil (Absolute #) 0.05 x10^3/uL (0-0.4); Eosinophil % 2.6 % (0.00-5.0); Eosinophil (Absolute #) 0.17 x10^3/uL (0-0.5); Hematocrit 30.5 % (35-47); IMMATURE GRAN # 0.02 x10^3u/L (0.00-0.03); IMMATURE GRAN % 0.3 % (0.00-0.4); Lymphocyte (Absolute #) 1.67 x10^3/uL (1.0-4.6); Lymphocytes % 25.3 % (24.0-44.0); Mean Cell Volume 86.4 fL (78-100); Mean Corpuscular Hemoglobin 25.5 pg (26-32); Mean Corpuscular Hgb Concent. 29.5 g/dL (32-36); Monocyte (Absolute #) 0.51 x10^3/uL (0.0-1.3); Monocytes % 7.7 % (0.0-12.0); Neutrophil % 63.3 % (36.0-66.0); Platelet Count 263 x10^3/uL (150-450); Red Blood Count 3.53 x10^6/uL (4.1-5.4); Red Cell Distribution Width 16.4 % (11.5-14.0); White Blood Count 6.6 x10^3/uL (4.0-10.5)
[2023-05-14] MEDS ORDERED: Sodium Chloride 0.9% 1000 ML 1,000 ML ONE (15:32)
[2023-05-14 15:44] LABS: ALBUMIN 3.5 g/dL (3.5-5.0); ANION GAP 11.3 MEQ/L (5-15); BILIRUBIN,TOTAL 0.5 mg/dL (0.2-1.3); Calcium 8.4 mg/dL (8.4-10.2); Creatinine 1 1.36 mg/dL (0.52-1.04); Potassium 3.8 mmol/L (3.5-5.1); Total Protein 7.1 g/dL (6.3-8.2)
--- NOTE | 2023-05-14 16:24 | XRAY ---
Indication: Headache and blurred vision. Multiple contiguous axial images obtained through the head without contrast. Comparison: October 27 and February 28, 2023. Again age-appropriate global atrophy, moderate periventricular degenerative micro-ischemia bilaterally, and multifocal old bilateral cerebral infarcts grossly unchanged. No acute intracranial hemorrhage, hydrocephalus, or mass effect. Fourth ventricle is midline. Bony calvarium intact. Visualized paranasal sinuses and mastoid air cells are clear. Impression: Continued nonacute senile brain with old multifocal bilateral cerebral infarcts.
[2023-05-14] MEDS ORDERED: BABY ASPIRIN 81 MG CHEW PO ONE (20:22)
[2023-05-14] MEDS ORDERED: BABY ASPIRIN 81 MG CHEW ONE (20:41)
[2023-05-14] MEDS ORDERED: MORPHINE SULFATE 2 MG INJ IV ONE (20:50)
[2023-05-14] MEDS ORDERED: MORPHINE SULFATE 2 MG INJ ONE (20:53)
[2023-05-14 22:23] VITALS: BP 91/75; RESP 16
[2023-05-14 22:42] VITALS: O2SAT 96
--- NOTE | 2023-05-15 08:57 | XRAY ---
Indication: Left-sided weakness. Blurred vision. Conventional contrast enhanced CTA neck performed using 80 cc Isovue 370 contrast. 2-D sagittal and coronal reformatted images obtained. Additional 3-D reformatted images obtained using a separate workstation. Comparison: June 21, 2022. Again normal CTA appearance of the visualized aortic arch, common carotid, carotid bulb, internal carotid, external carotid and vertebral arteries bilaterally. Left vertebral artery again dominant in caliber. Visualized soft tissues again negative for pathologic lymphadenopathy. Parotid and submandibular glands bilaterally symmetric. Again surgically absent or atrophic thyroid gland. New incompletely visualized right Port-A-Cath. Supra and infraglottic airway are widely patent with normal epiglottis. Visualized osseous structures intact. Patient is edentulous. Lung apices clear. Impression: Continued normal CTA neck with contrast exam.
--- NOTE | 2023-05-15 09:03 | XRAY ---
Indication: Left-sided weakness. Blurred vision. Initial CT head performed without contrast. Then conventional contrast enhanced CTA head performed using 80 cc Isovue 370 contrast. 2-D sagittal and coronal reformatted images obtained. Additional 3-D reformatted images obtained using a separate workstation. Comparison: June 21, [address]22. CT head without contrast demonstrates grossly stable age-appropriate global atrophy, moderate periventricular degenerative micro-ischemia, and small multifocal old bilateral cerebral infarcts unchanged with exam performed earlier in the day. Again no acute intracranial hemorrhage, hydrocephalus, or mass effect. Fourth ventricle is midline. Bony calvarium intact. CTA images again demonstrates minimal calcifications involving the suprasellar internal carotid arteries bilaterally unchanged. Normal carotid terminus with normal branching A1 and M1 segments bilaterally. More distal anterior cerebral and middle cerebral arteries are normal in CTA appearance bilaterally. Again incidental anatomic variant of origin left posterior cerebral artery. Posterior circulation again demonstrates normal CTA appearance to the basilar, left/right posterior cerebral, left/right superior cerebellar, and left/right anterior inferior cerebellar arteries. Venous sinuses/drainage unremarkable. No abnormal enhancing intra-or extra-axial mass. Impression: 1. Stable CT head without contrast exam again demonstrates atrophy, degenerative micro-ischemia, and old multifocal bilateral cerebral infarcts. No new/acute intracranial abnormalities. 2. Stable CTA head with contrast exam again demonstrating minimal arteriosclerotic calcifications in both suprasellar internal carotid arteries without critical stenosis/obstruction. Remaining CTA head with contrast exam continues to be negative.
== END 2023-05-14 23:07 | disposition short-term general hospital (02) ==
LOC: ED 14:46
DX: I21.4 Non-ST elevation (NSTEMI) myocardial infarction (principal); R77.8 Other specified abnormalities of plasma proteins; D64.9 Anemia, unspecified; I13.0 Hypertensive heart and chronic kidney disease with heart failure and stage 1 through stage 4 chronic kidney disease, or unspecified chronic kidney disease; N18.9 Chronic kidney disease, unspecified; I50.9 Heart failure, unspecified; R51.9 Headache, unspecified; Z79.899 Other long term (current) drug therapy; Z28.310 Unvaccinated for COVID-19; Z79.01 Long term (current) use of anticoagulants
CPT/HCPCS: 36000; 36415; 70450; 70496; 70498; 80053; 84484; 85025; 93005; 93041; 94760; 96360; 96375; 99285; Q3014; J2270; A9270-GY

== ENCOUNTER 2023-06-27 12:27 | Emergency (ER) | payer MEDICARE ==
--- NOTE | 2023-06-27 12:43 | ERPHSYRPT ---
- History of Present Illness Time Seen by Provider: 06/27/23 12:43 Historian: patient, family Exam Limitations: no limitations Physician History: This is a 67-year-old white female patient of Dr. Mccallum and aerial advertiser Dr. Nice who underwent lab work through the patient's primary care physician greater than 24 hours ago. Per patient's , who provided additional independent history secondary to the patient being fatigued and not remembering all of the details in the last 24 hours, patient has been more lethargic. In addition, they were just notified this morning that the patient needed to come to the emergency room for IV fluid infusion. I reviewed the outpatient labs that were drawn from the patient's primary care doctor's office. Patient has a white count of 5.3 and hemoglobin 11.4. She has an anion gap of 19. A BUN/creatinine of 63/2.52 respectively. She also has a CO2 level 14. Overall, the patient has felt more fatigued in the last couple weeks but in the last 2 days she has had nausea and vomiting. Patient denies chest pain. Patient denies shortness of breath. Patient's systolic blood pressure today is in the 90s. She has a normal heart rate and the monitor rhythm appears to be sinus rhythm. Patient has a history of CHF, arrhythmias, asthma, hypothyroidism. She also has a pacemaker defibrillator in place. Did review the patient's old labs. Patient's BUN/creatinine is higher than typical for her. Timing/Duration: week(s), worse (In the last 2 days) Quality: other (No pain) Abdominal Pain Onset Location: other (Abdominal pain) Pain Radiation: no radiation Severity of Pain-Max: none Severity of Pain-Current: none Modifying Factors: Improves With: other (Yamileth mildly lethargic) Associated Symptoms: vomiting, weakness (Mild), No chest pain, No diarrhea, No shortness of breath Allergies/Adverse Reactions: baclofen Allergy (Severe, Verified 06/27/23 12:40) Difficulty Breathing pt states stopped breathing Sulfa (Sulfonamide Antibiotics) [Sulfa(Sulfonamide Antibiotics)] Allergy (Severe, Verified 06/27/23 12:40) Nausea and Vomiting adhesive Allergy (Mild, Verified 06/27/23 12:40) Blisters codeine [Codeine] Allergy (Mild, Verified 06/27/23 12:40) Nausea and Vomiting iron Adverse Reaction (Intermediate, Verified 06/27/23 12:40) Nausea oxycodone [From Percocet] Adverse Reaction (Intermediate, Verified 06/27/23 12:40) Vomiting Home Medications: Tizanidine HCl 4 mg PO TID PRN PRN 11/10/17 [History] Furosemide [Lasix] 40 mg PO DAILY PRN PRN 03/09/18 [History] Levothyroxine Sodium [Synthroid] 300 mcg PO BID 04/29/19 [History] Nitroglycerin 0.4 mg SL Q5MIN PRN MR X 3 PRN 04/29/19 [History] Morphine Sulfate [Morphine Sulfate ER] 30 mg PO BID 07/30/21 [History] Famotidine 40 mg PO DAILY 03/12/22 [History] Gabapentin [Neurontin ] 100 mg PO DAILY 05/14/23 [History] Hx Tetanus, Diphtheria Vaccination/Date Given: Yes Hx Influenza Vaccination/Date Given: Yes Hx Pneumococcal Vaccination/Date Given: Yes Travel Risk - International Travel Have you traveled outside of the country in past 3 weeks: No - Coronavirus Screening Are you exhibiting any of the following symptoms?: Yes Symptoms: Vomiting/Diarrhea Close contact with a COVID-19 positive Pt in past 14-21 Days: No - Vaccine Status Have you recieved a Covid-19 vaccination: No - Review of Systems Constitutional: Weakness Eyes: No Symptoms Ears, Nose, & Throat: No Symptoms Respiratory: No Symptoms Cardiac: No Symptoms Abdominal/Gastrointestinal: Nausea, Vomiting, No Abdominal Pain, No Diarrhea Genitourinary Symptoms: No Symptoms Musculoskeletal: No Symptoms Skin: No Symptoms Neurological: No Symptoms Psychological: No Symptoms Endocrine: No Symptoms Hematologic/Lymphatic: No Symptoms Immunological/Allergic: No Symptoms All Other Systems: Reviewed and Negative - Past Medical History Pertinent Past Medical History: Yes Neurological History: Migraines, Stroke ENT History: No Pertinent History Cardiac History: Arrhythmia, Congestive Heart Failure, Deep Vein Thrombosis, Hypertension, Myocardial Infarction ([place]) Respiratory History: Asthma Endocrine Medical History: Hypothyroidism, Thyroid Cancer Musculoskeletal History: Degenerative Disk Disease, Other GI Medical History: GERD, Hernia, Other History: Renal Disease, Other Psycho-Social History: No Pertinent History Female Reproductive Disorders: Endometriosis Other Medical History: PMHX: CARDIAC CATH, INTERNAL PACEMAKER/DEFIB, COLON RESECTION, HERNIA SX, BACK FUSION, hotn - Past Surgical History Past Surgical History: Yes Neuro Surgical History: No Pertinent History Cardiac: Cardiac Catheterization, Internal Defibrillator, Pacemaker, Other Respiratory: No Pertinent History Gastrointestinal: Appendectomy, Cholecystectomy, Colon Resection, Hernia Repair, Other Genitourinary: No Pertinent History Musculoskeletal: Orthopedic Surgery Female Surgical History: Hysterectomy Other Surgical History: Hernia repair with scar tissue removal and colostomy reversal at in [place] by Dr. Branch on 07/01/22, COLON RESECTION, BACK FUSION, THYROID REMOVED and Parotid gland removed, ankle surgery,. OCTOBER 2018 CAROTIDECTOMY AND LYMPH NODE REMOVAL ON RIGHT SIDE, "filter for blood clots 2018" - Social History Smoking Status: Never smoker Exposure to second hand smoke: No Alcohol Use: None Drug Use: none Patient Lives Alone: No (Kaveh ) Significant Family History: heart disease, cancer, diabetes - Nursing Vital Signs Nursing Vital Signs: Initial Vital Signs Temperature 97.1 F 06/27/23 12:45 Pulse Rate 100 H 06/27/23 12:45 Respiratory Rate 18 06/27/23 12:45 Blood Pressure 84/66 06/27/23 12:45 O2 Sat by Pulse Oximetry 97 06/27/23 12:45 Pain Scale Pain Intensity 7 - Physical Exam General Appearance: no apparent distress, alert Eye Exam: PERRL/EOMI, eyes nml inspection Ears, Nose, Throat Exam: normal ENT inspection, moist mucous membranes Neck Exam: normal inspection, non-tender, supple, full range of motion Respiratory Exam: normal breath sounds, lungs clear, airway intact, No chest tenderness, No respiratory distress Cardiovascular Exam: regular rate/rhythm, normal heart sounds Gastrointestinal/Abdomen Exam: soft, normal bowel sounds, other (The ostomy in place right lower abdomen), No tenderness Pelvic Exam: not done Rectal Exam: not done Back Exam: normal inspection, normal range of motion, No CVA tenderness, No vertebral tenderness Extremity Exam: normal inspection, normal range of motion, pelvis stable Neurologic Exam: alert, oriented x 3, cooperative, 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 Biventricular paced rhythm. No evidence of any acute ischemic changes on today's twelve-lead EKG.) Ordered Tests: Active Orders 24 hr Category Date Time Status EKG-ER Only STAT Care 06/27/23 13:24 Active IV Insertion STAT Care 06/27/23 13:04 Active AMYLASE Stat Lab 06/27/23 13:15 Completed CBC W DIFF Stat Lab 06/27/23 13:15 Completed CMP Stat Lab 06/27/23 13:15 Completed CULTURE,URINE Stat Lab 06/27/23 14:06 Received LIPASE Stat Lab 06/27/23 13:15 Completed MONO SCREEN Stat Lab 06/27/23 13:40 Completed TROPONIN Q4H Lab 06/27/23 13:30 Completed TROPONIN Q4H Lab 06/27/23 17:30 Ordered TROPONIN Q4H Lab 06/27/23 21:30 Ordered TSH [TSH, 3RD Generation] Stat Lab 06/27/23 13:15 Completed UA W/RFX UR CULTURE Stat Lab 06/27/23 14:06 Completed Medication Summary Generic Name Dose Route Start Last Admin Trade Name Freq PRN Reason Stop Dose Admin Sodium Chloride 1,000 mls @ 500 mls/hr 06/27/23 13:15 06/27/23 13:18 Sodium Chloride 0.9% 1000 Ml IV 07/27/23 13:14 500 mls/hr .Q2H JUSTIN Administration Discontinued Medications Generic Name Dose Route Start Last Admin Trade Name Freq PRN Reason Stop Dose Admin Ondansetron HCl 4 mg 06/27/23 13:04 06/27/23 13:18 Ondansetron Hcl 4 Mg/2 Ml Vial IV 06/27/23 13:05 4 mg STAT ONE Administration Ondansetron HCl Confirm 06/27/23 13:13 Ondansetron Hcl 4 Mg/2 Ml Vial Administered 06/27/23 13:14 Dose 4 mg .ROUTE .STK-MED ONE Lab/Rad Data: Laboratory Result Diagrams 06/27/23 13:15 06/27/23 13:15 Laboratory Results 06/27/23 06/27/23 06/27/23 Range/Units 14:06 13:40 13:30 WBC (4.0-10.5) x10^3/uL RBC (4.1-5.4) x10^6/uL Hgb (12.0-16.0) g/dL Hct (35-47) % MCV (78-100) fL MCH (26-32) pg MCHC (32-36) g/dL RDW (11.5-14.0) % Plt Count (150-450) x10^3/uL MPV (7.5-11.0) fL Gran % (36.0-66.0) % Immature Gran % (Auto) (0.00-0.4) % Nucleat RBC Rel Count (0.00-0.1) % Eos # (Auto) (0-0.5) x10^3/uL Immature Gran # (Auto) (0.00-0.03) x10^3u/L Absolute Lymphs (auto) (1.0-4.6) x10^3/uL Absolute Monos (auto) (0.0-1.3) x10^3/uL Absolute Nucleated RBC (0.00-0.01) x10^3u/L Lymphocytes % (24.0-44.0) % Monocytes % (0.0-12.0) % Eosinophils % (0.00-5.0) % Basophils % (0.0-0.4) % Absolute Granulocytes (1.4-6.9) x10^3/uL Basophils # (0-0.4) x10^3/uL Sodium (137-145) mmol/L Potassium (3.5-5.1) mmol/L Chloride (98-107) mmol/L Carbon Dioxide (22-30) mmol/L Anion Gap (5-15) MEQ/L BUN (7-17) mg/dL Creatinine (0.52-1.04) mg/dL Estimated GFR ML/MIN Glucose (74-106) mg/dL Calcium (8.4-10.2) mg/dL Total Bilirubin (0.2-1.3) mg/dL AST (14-36) U/L ALT (0-35) U/L Alkaline Phosphatase (38-126) U/L Troponin I (0.000-0.034) ng/mL Serum Total Protein (6.3-8.2) g/dL Albumin (3.5-5.0) g/dL Amylase (30-110) U/L Lipase (23-300) U/L Free T4 (0.78-2.19) ng/dL TSH 3rd Generation (0.47-4.68) mIU/L Urine Color Yellow (Yellow) Urine Appearance Cloudy A (Clear) Urine pH 5.5 (4.6-8.0) Ur Specific [place] 1.020 (1.005-1.030) Urine Protein 100 A (Negative) Urine Glucose (UA) Negative (Negative) mg/dL Urine Ketones Negative (Negative) Urine Blood Negative (Negative) Urine Nitrite Negative (Negative) Urine Bilirubin Negative (Negative) Urine Urobilinogen 0.2 (0.2) mg/dL Ur Leukocyte Esterase Small A (Negative) U Hyaline Cast (Auto) 3-5 A (0-2) /LPF Urine Microscopic RBC 0-2 (0-5) /HPF Urine Microscopic WBC 21-50 A (0-5) /HPF Ur Epithelial Cells Rare (None Seen) /HPF Urine Bacteria None Seen (None Seen) /HPF Urine Culture Reflexed YES (NO) Monoscreen NEGATIVE (NEGATIVE) Influenza Type A Ag NEGATIVE (NEGATIVE) Influenza Type B Ag NEGATIVE (NEGATIVE) RSV (PCR) NEGATIVE (NEGATIVE) SARS-CoV-2 (PCR) NEGATIVE (NEGATIVE) 06/27/23 06/27/23 06/27/23 Range/Units 13:30 13:15 13:15 WBC (4.0-10.5) x10^3/uL RBC (4.1-5.4) x10^6/uL Hgb (12.0-16.0) g/dL Hct (35-47) % MCV (78-100) fL MCH (26-32) pg MCHC (32-36) g/dL RDW (11.5-14.0) % Plt Count (150-450) x10^3/uL MPV (7.5-11.0) fL Gran % (36.0-66.0) % Immature Gran % (Auto) (0.00-0.4) % Nucleat RBC Rel Count (0.00-0.1) % Eos # (Auto) (0-0.5) x10^3/uL Immature Gran # (Auto) (0.00-0.03) x10^3u/L Absolute Lymphs (auto) (1.0-4.6) x10^3/uL Absolute Monos (auto) (0.0-1.3) x10^3/uL Absolute Nucleated RBC (0.00-0.01) x10^3u/L Lymphocytes % (24.0-44.0) % Monocytes % (0.0-12.0) % Eosinophils % (0.00-5.0) % Basophils % (0.0-0.4) % Absolute Granulocytes (1.4-6.9) x10^3/uL Basophils # (0-0.4) x10^3/uL Sodium (137-145) mmol/L Potassium (3.5-5.1) mmol/L Chloride (98-107) mmol/L Carbon Dioxide (22-30) mmol/L Anion Gap (5-15) MEQ/L BUN (7-17) mg/dL Creatinine (0.52-1.04) mg/dL Estimated GFR ML/MIN Glucose (74-106) mg/dL Calcium (8.4-10.2) mg/dL Total Bilirubin (0.2-1.3) mg/dL AST (14-36) U/L ALT (0-35) U/L Alkaline Phosphatase (38-126) U/L Troponin I < 0.012 (0.000-0.034) ng/mL Serum Total Protein (6.3-8.2) g/dL Albumin (3.5-5.0) g/dL Amylase (30-110) U/L Lipase (23-300) U/L Free T4 0.07 L (0.78-2.19) ng/dL TSH 3rd Generation 87.800 H (0.47-4.68) mIU/L Urine Color (Yellow) Urine Appearance (Clear) Urine pH (4.6-8.0) Ur Specific [place] (1.005-1.030) Urine Protein (Negative) Urine Glucose (UA) (Negative) mg/dL Urine Ketones (Negative) Urine Blood (Negative) Urine Nitrite (Negative) Urine Bilirubin (Negative) Urine Urobilinogen (0.2) mg/dL Ur Leukocyte Esterase (Negative) U Hyaline Cast (Auto) (0-2) /LPF Urine Microscopic RBC (0-5) /HPF Urine Microscopic WBC (0-5) /HPF Ur Epithelial Cells (None Seen) /HPF Urine Bacteria (None Seen) /HPF Urine Culture Reflexed (NO) Monoscreen (NEGATIVE) Influenza Type A Ag (NEGATIVE) Influenza Type B Ag (NEGATIVE) RSV (PCR) (NEGATIVE) SARS-CoV-2 (PCR) (NEGATIVE) 06/27/23 06/27/23 Range/Units 13:15 13:15 WBC 3.8 L (4.0-10.5) x10^3/uL RBC 4.26 (4.1-5.4) x10^6/uL Hgb 10.6 L (12.0-16.0) g/dL Hct 35.1 (35-47) % MCV 82.4 (78-100) fL MCH 24.9 L (26-32) pg MCHC 30.2 L (32-36) g/dL RDW 18.0 H (11.5-14.0) % Plt Count 176 (150-450) x10^3/uL MPV 9.9 (7.5-11.0) fL Gran % 63.2 (36.0-66.0) % Immature Gran % (Auto) 0.3 (0.00-0.4) % Nucleat RBC Rel Count 0.0 (0.00-0.1) % Eos # (Auto) 0.03 (0-0.5) x10^3/uL Immature Gran # (Auto) 0.01 (0.00-0.03) x10^3u/L Absolute Lymphs (auto) 1.14 (1.0-4.6) x10^3/uL Absolute Monos (auto) 0.15 (0.0-1.3) x10^3/uL Absolute Nucleated RBC 0.00 (0.00-0.01) x10^3u/L Lymphocytes % 30.4 (24.0-44.0) % Monocytes % 4.0 (0.0-12.0) % Eosinophils % 0.8 (0.00-5.0) % Basophils % 1.3 (0.0-0.4) % Absolute Granulocytes 2.37 (1.4-6.9) x10^3/uL Basophils # 0.05 (0-0.4) x10^3/uL Sodium 133 L (137-145) mmol/L Potassium 4.0 D (3.5-5.1) mmol/L Chloride 106 (98-107) mmol/L Carbon Dioxide 16 L* (22-30) mmol/L Anion Gap 15.0 (5-15) MEQ/L BUN 58 H (7-17) mg/dL Creatinine 1.84 H (0.52-1.04) mg/dL Estimated GFR 29.9 ML/MIN Glucose 102 (74-106) mg/dL Calcium 9.3 (8.4-10.2) mg/dL Total Bilirubin 1.60 H (0.2-1.3) mg/dL AST 45 H (14-36) U/L ALT 31 (0-35) U/L Alkaline Phosphatase 84 (38-126) U/L Troponin I (0.000-0.034) ng/mL Serum Total Protein 7.8 (6.3-8.2) g/dL Albumin 4.1 (3.5-5.0) g/dL Amylase 95 (30-110) U/L Lipase 497 H (23-300) U/L Free T4 (0.78-2.19) ng/dL TSH 3rd Generation (0.47-4.68) mIU/L Urine Color (Yellow) Urine Appearance (Clear) Urine pH (4.6-8.0) Ur Specific [place] (1.005-1.030) Urine Protein (Negative) Urine Glucose (UA) (Negative) mg/dL Urine Ketones (Negative) Urine Blood (Negative) Urine Nitrite (Negative) Urine Bilirubin (Negative) Urine Urobilinogen (0.2) mg/dL Ur Leukocyte Esterase (Negative) U Hyaline Cast (Auto) (0-2) /LPF Urine Microscopic RBC (0-5) /HPF Urine Microscopic WBC (0-5) /HPF Ur Epithelial Cells (None Seen) /HPF Urine Bacteria (None Seen) /HPF Urine Culture Reflexed (NO) Monoscreen (NEGATIVE) Influenza Type A Ag (NEGATIVE) Influenza Type B Ag (NEGATIVE) RSV (PCR) (NEGATIVE) SARS-CoV-2 (PCR) (NEGATIVE) - Progress Progress: improved, re-examined Progress Note: 06/27/23 13:23 This patient's medical issue is 1 of moderate complexity. The level complexity in the workup performed is based on review of the patient's past medical history, review of the patient's medication list, review of patient drug allergy list, history of present illness and physical findings on examination. The workup in this patient includes placement of an intravenous line, infusion of normal saline solution, antiemetic infusion, CBC, CMP, viral testing, monotest, urinalysis, twelve-lead EKG, troponin level, free T4 and TSH levels. 06/27/23 14:44 The troponin level and urinalysis is pending. I did interpret the laboratory data results including the elevated TSH level and a low T4 level indicating primary hypothyroidism. Patient also has evidence of dehydration secondary from vomiting in the last couple of days. We will await the results of the troponin level and urinalysis before making final disposition. In the meantime we will continue to hydrate this patient. Counseled pt/family regarding: lab results, diagnosis, need for follow-up Medical Desision Making - Independent Historian Additional History obtained from: Spouse - Diagnostic Testing Diagnostic test were ordered, analyzed, and reviewed by me: Yes - Risk of complications Low Risk: Low risk of morbidity from additional dx testing or treatment - Departure Departure Disposition: Home Clinical Impression: Nausea and vomiting, Dehydration, Hypothyroidism, UTI (urinary tract infection) Condition: Stable Critical Care Time: No Referrals: WAQAR MCCALLUM [Primary Care Provider] - Follow up/PCP as directed Additional Instructions: Drink plenty of clear liquids before advancing your diet. Avoid fatty greasy spicy foods. Take your medications as prescribed. Contact your aerial advertiser today, 06/27/2023, and let them know that you are TSH is significantly elevated and your free T4 levels are significantly low despite your thyroid supplementation. Have them discussed with you further management issues and obtain a follow-up appointment. Prescriptions: Cephalexin Mh 500 mg [Keflex 500 mg] 500 mg PO TID #21 cap
[2023-06-27 12:47] VITALS: TEMP 97.1
[2023-06-27] MEDS ORDERED: Sodium Chloride 0.9% 1000 ML 1,000 ML ONE (13:13)
[2023-06-27] MEDS ORDERED: Zofran 4 MG/2 ML VIAL ONE (13:13)
[2023-06-27] MEDS: Zofran 4 MG/2 ML VIAL IV ONE (13:18)
[2023-06-27] MEDS: Sodium Chloride 0.9% 1000 ML 1,000 ML IV SCH (13:18)
[2023-06-27 13:32] LABS: Absolute Neutrophil Ct (ANC) 2.37 x10^3/uL (1.4-6.9); BASOPHIL % 1.3 % (0.0-0.4); Basophil (Absolute #) 0.05 x10^3/uL (0-0.4); Eosinophil % 0.8 % (0.00-5.0); Eosinophil (Absolute #) 0.03 x10^3/uL (0-0.5); Hematocrit 35.1 % (35-47); Hemoglobin 10.6 g/dL (12.0-16.0); IMMATURE GRAN # 0.01 x10^3u/L (0.00-0.03); IMMATURE GRAN % 0.3 % (0.00-0.4); Lymphocyte (Absolute #) 1.14 x10^3/uL (1.0-4.6); Lymphocytes % 30.4 % (24.0-44.0); Mean Cell Volume 82.4 fL (78-100); Mean Corpuscular Hemoglobin 24.9 pg (26-32); Mean Corpuscular Hgb Concent. 30.2 g/dL (32-36); Mean Platelet Volume 9.9 fL (7.5-11.0); Monocyte (Absolute #) 0.15 x10^3/uL (0.0-1.3); Neutrophil % 63.2 % (36.0-66.0); Platelet Count 176 x10^3/uL (150-450); Red Blood Count 4.26 x10^6/uL (4.1-5.4); White Blood Count 3.8 x10^3/uL (4.0-10.5)
[2023-06-27 13:45] LABS: ALBUMIN 4.1 g/dL (3.5-5.0); BILIRUBIN,TOTAL 1.6 mg/dL (0.2-1.3); Calcium 9.3 mg/dL (8.4-10.2); Creatinine 1 1.84 mg/dL (0.52-1.04); EST GLOMERULAR FILTRATION RATE 29.9 ML/MIN; Total Protein 7.8 g/dL (6.3-8.2)
[2023-06-27 14:19] LABS: INFLUENZA A NEGATIVE (NEGATIVE); INFLUENZA B NEGATIVE (NEGATIVE); RESPIRATORY SYNCTIAL VIRUS NEGATIVE (NEGATIVE); SARS-CoV-2 Xpert Express NEGATIVE (NEGATIVE)
[2023-06-27 14:44] LABS: Appearance Cloudy (Clear); Bacteria None Seen /HPF (None Seen); Bilirubin Negative (Negative); Blood Negative (Negative); Epithelial Cells Rare /HPF (None Seen); Glucose, Urine Negative (Negative); Ketones Negative (Negative); Leukocyte Esterase Small (Negative); Nitrite Negative (Negative); Ph 5.5 (4.6-8.0); Protein,Urine Dip 100 (Negative); RBC 0-2 /HPF (0-5); Urobilinogen 0.2 mg/dL (0.2); WBC 21-50 /HPF (0-5)
[2023-06-27 14:45] LABS: ADD URINE CULTURE? YES (NO)
[2023-06-27 15:25] VITALS: BP 90/67; PULSE 78; RESP 18; O2SAT 98
== END 2023-06-27 15:41 | disposition home or self-care (01) ==
LOC: ED 12:27
DX: E86.0 Dehydration (principal); E03.9 Hypothyroidism, unspecified; N39.0 Urinary tract infection, site not specified; R11.2 Nausea with vomiting, unspecified; R53.83 Other fatigue; I11.0 Hypertensive heart disease with heart failure; I50.9 Heart failure, unspecified; Z79.891 Long term (current) use of opiate analgesic; Z79.899 Other long term (current) drug therapy; Z28.310 Unvaccinated for COVID-19; Z20.828 Contact with and (suspected) exposure to other viral communicable diseases
CPT/HCPCS: 0241U; 36000; 36415; 80053; 81001; 82150; 83690; 84439; 84443; 84484; 85025; 86308; 87086; 93005; 96374; 99284; J1642; J2405

== ENCOUNTER 2023-09-28 18:18 | Observation (INO) | payer MEDICARE ==
--- NOTE | 2023-09-28 19:39 | ERPHSYRPT ---
- History of Present Illness Time Seen by Provider: 09/28/23 19:25 Historian: patient, family () Exam Limitations: no limitations Patient Subjective Stated Complaint: pt here for chest pain to center of chest, pt has long history of chest pain, she states she has been in bed all day not feeling well. co some nasuea. Triage Nursing Assessment: pt alert,but drowsy, she states she took her evening meds, arrived per wc, resp easy, needed assistance to undress, skin w.d.p, has port a cath to chest. edema not lower legs that states is better. Physician History: For the past 3.5 hours pt has had sharp intermittent right sided chest pain with episodes lasting up to 1 minute; for the past 2 hours shortness of air; nausea all day; denies vomiting, fever, headache; admits to swelling of lower legs for the past 2 weeks but has been improving per . Aspirin Treatment Today: 81 mg x 4, provided by ED Allergies/Adverse Reactions: baclofen Allergy (Severe, Verified 09/28/23 18:23) Difficulty Breathing pt states stopped breathing Sulfa (Sulfonamide Antibiotics) [Sulfa(Sulfonamide Antibiotics)] Allergy (Severe, Verified 09/28/23 18:23) Nausea and Vomiting adhesive Allergy (Mild, Verified 09/28/23 18:23) Blisters codeine [Codeine] Allergy (Mild, Verified 09/28/23 18:23) Nausea and Vomiting iron Adverse Reaction (Intermediate, Verified 09/28/23 18:23) Nausea oxycodone [From Percocet] Adverse Reaction (Intermediate, Verified 09/28/23 18 :23) Vomiting Home Medications: Tizanidine HCl 4 mg PO TID PRN PRN 11/10/17 [History] Furosemide [Lasix] 40 mg PO DAILY PRN PRN 03/09/18 [History] Levothyroxine Sodium [Synthroid] 300 mcg PO BID 04/29/19 [History] Nitroglycerin 0.4 mg SL Q5MIN PRN MR X 3 PRN 04/29/19 [History] Morphine Sulfate [Morphine Sulfate ER] 30 mg PO BID 07/30/21 [History] Famotidine 40 mg PO DAILY 03/12/22 [History] Gabapentin [Neurontin ] 100 mg PO DAILY 12/27/23 [History] Hx Tetanus, Diphtheria Vaccination/Date Given: Yes Hx Influenza Vaccination/Date Given: Yes Hx Pneumococcal Vaccination/Date Given: Yes Immunizations Up to Date: Yes Travel Risk - International Travel Have you traveled outside of the country in past 3 weeks: No - Emerging Infectious Disease Are you exhibiting symptoms associated with any current EIDs: No - Review of Systems Constitutional: No Fever, No Chills Ears, Nose, & Throat: No Ear Pain Respiratory: Dyspnea Cardiac: Chest Pain Abdominal/Gastrointestinal: Nausea, No Abdominal Pain, No Vomiting Genitourinary Symptoms: No Dysuria Musculoskeletal: Other (swelling of lower legs) Neurological: No Headache - Past Medical History Pertinent Past Medical History: Yes Neurological History: Migraines, Stroke ENT History: No Pertinent History Cardiac History: Arrhythmia, Congestive Heart Failure, Deep Vein Thrombosis, Hy pertension, Myocardial Infarction ([place]) Respiratory History: Asthma Endocrine Medical History: Hypothyroidism, Thyroid Cancer Musculoskeletal History: Degenerative Disk Disease, Other GI Medical History: GERD, Hernia, Other History: Renal Disease, Other Psycho-Social History: No Pertinent History Female Reproductive Disorders: Endometriosis Other Medical History: PMHX: CARDIAC CATH, INTERNAL PACEMAKER/DEFIB, COLON RESECTION, HERNIA SX, BACK FUSION, hotn - Past Surgical History Past Surgical History: Yes Neuro Surgical History: No Pertinent History Cardiac: Cardiac Catheterization, Internal Defibrillator, Pacemaker, Other Respiratory: No Pertinent History Gastrointestinal: Appendectomy, Cholecystectomy, Colon Resection, Hernia Repair, Other Genitourinary: No Pertinent History Musculoskeletal: Orthopedic Surgery Female Surgical History: Hysterectomy Other Surgical History: Hernia repair with scar tissue removal and colostomy reversal at in [place] by Dr. Branch on 07/01/22, COLON RESECTION, BACK FUSION, THYROID REMOVED and Parotid gland removed, ankle surgery,. OCTOBER 2018 CAROTIDECTOMY AND LYMPH NODE REMOVAL ON RIGHT SIDE, "filter for blood clots 2018" Significant Family History: heart disease, cancer, diabetes - Social History Smoking Status: Never smoker Exposure to second hand smoke: No Alcohol Use: None Drug Use: none Patient Lives Alone: No (Kaveh ) - Nursing Vital Signs Nursing Vital Signs: Initial Vital Signs Temperature 97.5 F 09/28/23 18:24 Pulse Rate 70 09/28/23 18:24 Respiratory Rate 18 09/28/23 18:24 Blood Pressure 118/73 09/28/23 18:24 O2 Sat by Pulse Oximetry 92 L 09/28/23 18:24 Pain Scale Pain Intensity 2 - Physical Exam General Appearance: alert Eye Exam: PERRL/EOMI Ears, Nose, Throat Exam: TMs normal, pharyngeal erythema (mild) Neck Exam: normal inspection Respiratory Exam: lungs clear Cardiovascular Exam: normal heart sounds Gastrointestinal/Abdomen Exam: normal bowel sounds, other (ileostomy RLQ) Back Exam: normal inspection Extremity Exam: swelling (+2 edema of ankles & lower legs) Neurologic Exam: alert, cooperative Skin Exam: warm, dry SpO2 Interpretation: borderline oxygenation SpO2: 92 O2 Delivery: Room Air - Course Nursing assessment & vital signs reviewed: Yes EKG Interpreted by Me: RATE (70), Other (QTc = 484; paced rhythm) - Radiology Exams Chest X-ray Interpretation: Discussed w/ radiologist (Again cardiomegaly with chronic findings. Negative for acute pneumonic process or CHF.) - CT Exams Chest CT Interpretation: Tele-radiologist Report (No evidence of significant abnormality in the chest. Mild cardiomegaly with bilateral minimal pleural effusions.) Ordered Tests: Active Orders 24 hr Category Date Time Status EKG-ER Only STAT Care 09/28/23 19:40 Active IV Insertion STAT Care 09/28/23 19:40 Active CHEST 1 VIEW (PORTABLE) Stat Exams 09/28/23 19:41 Completed CHEST WITHOUT CONTRAST [CT] Stat Exams 09/28/23 21:55 Completed AMYLASE Stat Lab 09/28/23 19:52 Completed CBC W DIFF Stat Lab 09/28/23 19:52 Completed CMP Stat Lab 09/28/23 19:52 Completed D-DIMER QUANTITATIVE Stat Lab 09/28/23 19:52 Completed LIPASE Stat Lab 09/28/23 19:52 Completed MAGNESIUM Stat Lab 09/28/23 19:52 Completed TROPONIN Q4H Lab 09/28/23 19:52 Completed TROPONIN Q4H Lab 09/28/23 23:54 Completed TROPONIN Q4H Lab 09/29/23 03:45 Ordered Medication Summary Generic Name Dose Route Start Last Admin Trade Name Freq PRN Reason Stop Dose Admin Sodium Chloride 1,000 mls @ 100 mls/hr 09/28/23 19:45 09/28/23 19:54 Sodium Chloride 0.9% 1000 Ml IV 10/28/23 19:44 100 mls/hr .Q10H JUSTIN Administration Discontinued Medications Generic Name Dose Route Start Last Admin Trade Name Freq PRN Reason Stop Dose Admin Aspirin 324 mg 09/28/23 19:46 09/28/23 19:53 Aspirin 81 Mg Tab.Chew PO 09/28/23 19:47 324 mg STAT ONE Administration Aspirin Confirm 09/28/23 19:53 Aspirin 81 Mg Tab.Chew Administered 09/28/23 19:54 Dose 324 mg .ROUTE .STK-MED ONE Nitroglycerin 0.4 mg 09/28/23 19:46 09/28/23 19:53 Nitroglycerin 0.4 Mg (Ed) 0.4 Mg Tab.Subl SL 09/28/23 19:47 0.4 mg STAT ONE Administration Nitroglycerin Confirm 09/28/23 19:53 Nitroglycerin 0.4 Mg (Ed) 0.4 Mg Tab.Subl Administered 09/28/23 19:54 Dose 0.4 mg SL .STK-MED ONE Lab/Rad Data: Laboratory Result Diagrams 09/28/23 19:52 09/28/23 19:52 Laboratory Results 09/28/23 09/28/23 09/28/23 Range/Units 23:54 19:52 19:52 WBC (4.0-10.5) x10^3/uL RBC (4.1-5.4) x10^6/uL Hgb (12.0-16.0) g/dL Hct (35-47) % MCV (78-100) fL MCH (26-32) pg MCHC (32-36) g/dL RDW (11.5-14.0) % Plt Count (150-450) x10^3/uL MPV (7.5-11.0) fL Gran % (36.0-66.0) % Immature Gran % (Auto) (0.00-0.4) % Nucleat RBC Rel Count (0.00-0.1) % Eos # (Auto) (0-0.5) x10^3/uL Immature Gran # (Auto) (0.00-0.03) x10^3u/L Absolute Lymphs (auto) (1.0-4.6) x10^3/uL Absolute Monos (auto) (0.0-1.3) x10^3/uL Absolute Nucleated RBC (0.00-0.01) x10^3u/L Lymphocytes % (24.0-44.0) % Monocytes % (0.0-12.0) % Eosinophils % (0.00-5.0) % Basophils % (0.0-0.4) % Absolute Granulocytes (1.4-6.9) x10^3/uL Basophils # (0-0.4) x10^3/uL D-Dimer 1.96 H* (0.0-0.50) mg/L Sodium (135-145) mmol/L Potassium (3.5-5.1) mmol/L Chloride (98-107) mmol/L Carbon Dioxide (22-30) mmol/L Anion Gap (5-15) MEQ/L BUN (7-17) mg/dL Creatinine (0.52-1.04) mg/dL Estimated GFR ML/MIN Glucose (74-106) mg/dL Calcium (8.4-10.2) mg/dL Magnesium (1.6-2.3) mg/dL Total Bilirubin (0.2-1.3) mg/dL AST (14-36) U/L ALT (0-35) U/L Alkaline Phosphatase (38-126) U/L Troponin I < 0.012 < 0.012 (0.000-0.033) ng/mL Serum Total Protein (6.3-8.2) g/dL Albumin (3.5-5.0) g/dL Amylase (30-110) U/L Lipase (23-300) U/L 09/28/23 09/28/23 Range/Units 19:52 19:52 WBC 5.2 (4.0-10.5) x10^3/uL RBC 3.34 L (4.1-5.4) x10^6/uL Hgb 8.4 L (12.0-16.0) g/dL Hct 28.5 L (35-47) % MCV 85.3 (78-100) fL MCH 25.1 L (26-32) pg MCHC 29.5 L (32-36) g/dL RDW 21.5 H (11.5-14.0) % Plt Count 251 (150-450) x10^3/uL MPV 9.9 (7.5-11.0) fL Gran % 72.9 H (36.0-66.0) % Immature Gran % (Auto) 0.2 (0.00-0.4) % Nucleat RBC Rel Count 0.0 (0.00-0.1) % Eos # (Auto) 0.04 (0-0.5) x10^3/uL Immature Gran # (Auto) 0.01 (0.00-0.03) x10^3u/L Absolute Lymphs (auto) 0.94 L (1.0-4.6) x10^3/uL Absolute Monos (auto) 0.37 (0.0-1.3) x10^3/uL Absolute Nucleated RBC 0.00 (0.00-0.01) x10^3u/L Lymphocytes % 18.3 L (24.0-44.0) % Monocytes % 7.2 (0.0-12.0) % Eosinophils % 0.8 (0.00-5.0) % Basophils % 0.6 (0.0-0.4) % Absolute Granulocytes 3.76 (1.4-6.9) x10^3/uL Basophils # 0.03 (0-0.4) x10^3/uL D-Dimer (0.0-0.50) mg/L Sodium 142 (135-145) mmol/L Potassium 4.0 (3.5-5.1) mmol/L Chloride 109 H (98-107) mmol/L Carbon Dioxide 21 L (22-30) mmol/L Anion Gap 15.6 H (5-15) MEQ/L BUN 62 H (7-17) mg/dL Creatinine 2.16 H (0.52-1.04) mg/dL Estimated GFR 24.5 ML/MIN Glucose 97 (74-106) mg/dL Calcium 9.1 (8.4-10.2) mg/dL Magnesium 1.6 (1.6-2.3) mg/dL Total Bilirubin 0.80 (0.2-1.3) mg/dL AST 20 (14-36) U/L ALT 10 (0-35) U/L Alkaline Phosphatase 119 (38-126) U/L Troponin I (0.000-0.033) ng/mL Serum Total Protein 7.0 (6.3-8.2) g/dL Albumin 3.7 (3.5-5.0) g/dL Amylase 37 (30-110) U/L Lipase 142 (23-300) U/L - Progress Progress: improved Will see patient in: other (Dr Villagomez([id number]) accepted pt for transfer to [facility].) Counseled pt/family regarding: lab results, diagnosis, rad results Medical Desision Making - Diagnostic Testing Diagnostic test were ordered, analyzed, and reviewed by me: Yes Radiological Interpretation: Teleradiologist Report - Departure Clinical Impression: Chest pain, Dyspnea, Elevated D-dimer Condition: Stable Critical Care Time: No Referrals: LUCERO MEANS OF [Primary Care Provider] - Follow up/PCP as directed Instructions: Chest Pain (DC)
[2023-09-28] MEDS ORDERED: BABY ASPIRIN 81 MG CHEW ONE (19:53)
[2023-09-28] MEDS: Nitrostat 0.4 MG (ED) SL ONE (19:53)
[2023-09-28] MEDS: BABY ASPIRIN 81 MG CHEW PO ONE (19:53)
[2023-09-28] MEDS ORDERED: Nitrostat 0.4 MG (ED) SL ONE (19:53)
[2023-09-28] MEDS: Sodium Chloride 0.9% 1000 ML 1,000 ML IV SCH (19:54)
[2023-09-28] MEDS ORDERED: Sodium Chloride 0.9% 1000 ML 1,000 ML ONE (19:54)
[2023-09-28 19:57] LABS: Absolute Neutrophil Ct (ANC) 3.76 x10^3/uL (1.4-6.9); BASOPHIL % 0.6 % (0.0-0.4); Basophil (Absolute #) 0.03 x10^3/uL (0-0.4); Eosinophil % 0.8 % (0.00-5.0); Eosinophil (Absolute #) 0.04 x10^3/uL (0-0.5); Hematocrit 28.5 % (35-47); Hemoglobin 8.4 g/dL (12.0-16.0); IMMATURE GRAN # 0.01 x10^3u/L (0.00-0.03); IMMATURE GRAN % 0.2 % (0.00-0.4); Lymphocyte (Absolute #) 0.94 x10^3/uL (1.0-4.6); Lymphocytes % 18.3 % (24.0-44.0); Mean Cell Volume 85.3 fL (78-100); Mean Corpuscular Hemoglobin 25.1 pg (26-32); Mean Corpuscular Hgb Concent. 29.5 g/dL (32-36); Mean Platelet Volume 9.9 fL (7.5-11.0); Monocyte (Absolute #) 0.37 x10^3/uL (0.0-1.3); Monocytes % 7.2 % (0.0-12.0); Neutrophil % 72.9 % (36.0-66.0); Platelet Count 251 x10^3/uL (150-450); Red Blood Count 3.34 x10^6/uL (4.1-5.4); Red Cell Distribution Width 21.5 % (11.5-14.0); White Blood Count 5.2 x10^3/uL (4.0-10.5)
[2023-09-28 20:10] LABS: ALBUMIN 3.7 g/dL (3.5-5.0); ANION GAP 15.6 MEQ/L (5-15); BILIRUBIN,TOTAL 0.8 mg/dL (0.2-1.3); Calcium 9.1 mg/dL (8.4-10.2); Creatinine 1 2.16 mg/dL (0.52-1.04); EST GLOMERULAR FILTRATION RATE 24.5 ML/MIN; MAGNESIUM 1.6 mg/dL (1.6-2.3)
--- NOTE | 2023-09-28 21:29 | XRAY ---
Indication: Chest pain. Comparison: November 27, 2022 Portable chest better inflated and remains clear. Heart remains enlarged again with left AICD and new right Port-A-Cath. Bony thorax intact again with osteopenia and degenerative changes. Impression: Again cardiomegaly with chronic findings. Negative for acute pneumonic process or CHF.
--- NOTE | 2023-09-28 23:47 | XRAY ---
CLINICAL HISTORY: cp COMPARISON: None. TECHNIQUE: Contiguous axial images were obtained from the neck base through the upper abdomen without contrast. In addition, sagittal and coronal reconstructions were performed to potentially increase the sensitivity for the detection of disease. CT scan was performed according to ALARA (as low as reasonable achievable). FINDINGS: The lungs are clear, with no focal areas of consolidation.Linear atelectatic changes in lower lobes bilaterally. No pulmonary nodules are seen. The central airways are patent. There are minimal pleural effusions. No pneumothorax is seen. Evaluation of the mediastinum and malu is limited due to the lack of intravenous contrast. No axillary or mediastinal adenopathy is identified. The thyroid is unremarkable. The heart appears mildly enlarged with dual chamber pacemaker leads are insitu. Right sided chemoport catheter is insitu. There are appreciable coronary artery and aortic atherosclerotic calcifications. No pericardial effusion is identified. Imaged portions of the upper abdomen are unremarkable,however multiple surgical metallic clips are seen in the mesogastrium. No aggressive appearing osseous lesions are identified. IMPRESSION: 1.No evidence of significant abnormality in the chest. 2.Mild cardiomegaly with bilateral minimal pleural effusions. Electronically Signed by: Ángel Mercedes MD. (09/28/2023 23:43:21 EDT)
[2023-09-29] MEDS ORDERED: Nitrostat 0.4 MG Tablet SL PRN (04:33)
[2023-09-29] MEDS ORDERED: Sodium Chloride 0.9% 1000 ML 1,000 ML IV SCH (04:33)
[2023-09-29] MEDS ORDERED: TYLENOL 325 MG PO PRN (05:28)
--- NOTE | 2023-09-29 06:28 | PCM.HP ---
History of Present Illness - Chief Complaint Chief Complaint: Chest pain Date: 09/29/23 History of Present Illness: 68-year-old woman with history of CAD s/p IL 1 month ago, HFrEF (40%), CKD stage III, recurrent PE, hypothyroidism, chronic back pain, and chronic anemia, who presents with nausea and chest pain. Patient was at [facility] 1 month ago with an acute IL, seen by Dr. Duarte. She has been doing fairly well since then, with some posterior mild leg edema that has been slowly improving. However, throughout the day on Friday, she had nausea, eventually progressing to sharp right-sided chest pain, lasting about 1 hour, associated with dyspnea, starting in the afternoon. Not relieved by rest or worsened by exertion, and not associated with numbness or diaphoresis. However, it states that it is similar to her pain when she had her IL. Currently, chest pain and dyspnea resolved shortly after arriving to the ED, but she continues to feel nauseated, and now having some diffuse abdominal pain. She has had no difficulties since her discharge from the IL, and has been compliant with her home medications. Denies orthopnea and PND, and notes that her leg edema, although still present, has been slowly improving, and she has been taking her Lasix. Denies any recent fevers, chills, sore throat, cough, or diarrhea. No recent changes to medications. In the ED, they reach out to Dr. Duarte, and initially arranged for transfer to [facility]. However, they were unable to accept her because of the lack of stepdown beds. Patient is currently pending admission at [facility], but they also have no beds as of this morning. - Review of Systems Constitutional: No Fever, No Chills, No Fatigue, No Lethargy Eyes: No Vision Changes Ears, Nose, & Throat: No Throat Pain, No Painful Swallowing Respiratory: Short Of Breath, No Cough, No Orthopnea, No Wheezing Cardiac: Chest Pain, Edema (Bilateral legs, slowly improving), No Palpitations, No Syncope, No Orthopnea, No PND Abdominal/Gastrointestinal: Abdominal Pain, Nausea, No Vomiting, No Diarrhea, No Hematemesis, No Hematochezia, No Melena Genitourinary Symptoms: No Dysuria, No Frequency Musculoskeletal: Back Pain (Chronic, on morphine SR) Skin: No Symptoms Neurological: No Dizziness, No Focal Weakness, No Headache All Other Systems: Reviewed and Negative Medications & Allergies Home Medications: Home Medication List Tizanidine HCl 4 mg PO TID PRN PRN 11/10/17 [History Confirmed 06/27/23] Furosemide [Lasix] 40 mg PO DAILY PRN PRN 03/09/18 [History Confirmed 06/27/23] Levothyroxine Sodium [Synthroid] 300 mcg PO BID 04/29/19 [History Confirmed 06/27/23] Nitroglycerin 0.4 mg SL Q5MIN PRN MR X 3 PRN 04/29/19 [History Confirmed 06/27/23] Apixaban [Eliquis] 5 mg PO BID 1 Days 01/03/20 [Rx Confirmed 06/27/23] Morphine Sulfate [Morphine Sulfate ER] 30 mg PO BID 07/30/21 [History Confirmed 06/27/23] Famotidine 40 mg PO DAILY 03/12/22 [History Confirmed 06/27/23] Metoprolol Succinate 25 mg Xl* [Toprol-Xl 25MG Tablets] 25 mg PO DAILY #30 tab 04/04/22 [Rx Confirmed 06/27/23] Gabapentin [Neurontin ] 100 mg PO DAILY 05/14/23 [History Confirmed 06/27/23] Cephalexin Mh 500 mg [Keflex 500 mg] 500 mg PO TID #21 cap 06/27/23 [Rx] Allergies/Adverse Reactions: Allergies Allergy/AdvReac Type Severity Reaction Status Date / Time baclofen Allergy Severe Difficulty Verified 09/28/23 18:23 Breathing Sulfa (Sulfonamide Allergy Severe Nausea and Verified 09/28/23 18:23 Antibiotics) Vomiting [Sulfa(Sulfonamide Antibiotics)] adhesive Allergy Mild Blisters Verified 09/28/23 18:23 codeine [Codeine] Allergy Mild Nausea and Verified 09/28/23 18:23 Vomiting iron AdvReac Intermediate Nausea Verified 09/28/23 18:23 oxycodone [From Percocet] AdvReac Intermediate Vomiting Verified 09/28/23 18:23 - Past Medical History Past Medical History: Yes Neurological History: Migraines, Stroke ENT History: No Pertinent History Cardiac History: Arrhythmia (Status post AICD), Congestive Heart Failure (Systolic, EF 40%), Hypertension, Myocardial Infarction ([place]) Respiratory History: Asthma, Pulmonary Embolism Endocrine Medical History: Hypothyroidism, Thyroid Cancer Musculoskelatal History: Degenerative Disk Disease, Other GI Medical History: GERD, Hernia, Other History: Renal Disease, Other Pyscho-Social History: No Pertinent History Reproductive Disorders: Endometriosis Comment: PMHX: CARDIAC CATH, INTERNAL PACEMAKER/DEFIB, COLON RESECTION, HERNIA SX, BACK FUSION, hotn - Past Surgical History Past Surgical History: Yes Neuro Surgical History: No Pertinent History Cardiac History: Cardiac Catheterization, Internal Defibrillator, Pacemaker, Other Respiratory Surgery: No Pertinent History GI Surgical History: Appendectomy, Cholecystectomy, Colon Resection, Hernia Repair, Other Genitourinary Surgical Hx: No Pertinent History Musculskeletal Surgical Hx: Orthopedic Surgery Female Surgical History: Hysterectomy Other Surgical History: Hernia repair with scar tissue removal and colostomy reversal at in [place] by Dr. Branch on 07/01/22, COLON RESECTION, BACK FUSION, THYROID REMOVED and Parotid gland removed, ankle surgery,. OCTOBER 2018 CAROTIDECTOMY AND LYMPH NODE REMOVAL ON RIGHT SIDE, "filter for blood clots 2018" Significant Family History: heart disease, cancer, diabetes - Social History Smoking Status: Never smoker Exposure to second hand smoke: No Alcohol: None Drug Use: none - Social Determinants of Health Will the patient participate in the screening: Declined to provide - Physical Exam Vital Signs: Vital Signs - 24 hr Temp Pulse Pulse Resp BP BP Pulse Ox 09/29/23 05:00 76 18 97/52 96 09/29/23 04:30 70 16 105/66 96 09/29/23 04:00 71 20 108/66 96 09/29/23 03:30 70 18 110/72 95 09/29/23 03:00 72 20 107/64 93 L 09/29/23 02:30 70 18 113/77 93 L 09/29/23 02:00 74 20 124/74 95 09/29/23 01:30 71 18 111/88 96 09/29/23 01:28 72 18 126/81 93 L 09/29/23 01:00 70 17 123/73 98 09/29/23 00:39 92 L 09/29/23 00:30 72 12 122/81 96 09/29/23 00:00 70 15 121/79 95 09/28/23 23:30 70 13 104/70 93 L 09/28/23 23:17 70 18 119/74 94 L 09/28/23 22:00 70 14 106/72 95 09/28/23 21:30 70 12 106/63 94 L 09/28/23 21:00 70 12 115/71 95 09/28/23 20:30 70 14 118/67 96 09/28/23 20:06 70 14 116/73 96 09/28/23 19:00 70 12 119/74 94 L 09/28/23 18:35 70 09/28/23 18:30 70 21 110/73 95 09/28/23 18:24 97.5 F 70 18 118/73 92 L GEN: Lying in bed in no acute distress NEURO: No focal deficits CV: Regular rate and rhythm, V-paced on EKG, mild bilateral pedal edema. PULM: Clear to auscultation bilaterally, no work of breathing, on 3 L oxygen by nasal cannula ABD: Soft, non-distended, normoactive bowel sounds PSYCH: Alert, oriented x3 Results - Labs Lab/Micro Results: Lab Results-Last 24 Hours 09/28/23 09/28/23 09/28/23 Range/Units 19:52 19:52 19:52 WBC 5.2 (4.0-10.5) x10^3/uL RBC 3.34 L (4.1-5.4) x10^6/uL Hgb 8.4 L (12.0-16.0) g/dL Hct 28.5 L (35-47) % MCV 85.3 (78-100) fL MCH 25.1 L (26-32) pg MCHC 29.5 L (32-36) g/dL RDW 21.5 H (11.5-14.0) % Plt Count 251 (150-450) x10^3/uL MPV 9.9 (7.5-11.0) fL Gran % 72.9 H (36.0-66.0) % Immature Gran % (Auto) 0.2 (0.00-0.4) % Nucleat RBC Rel Count 0.0 (0.00-0.1) % Eos # (Auto) 0.04 (0-0.5) x10^3/uL Immature Gran # (Auto) 0.01 (0.00-0.03) x10^3u/L Absolute Lymphs (auto) 0.94 L (1.0-4.6) x10^3/uL Absolute Monos (auto) 0.37 (0.0-1.3) x10^3/uL Absolute Nucleated RBC 0.00 (0.00-0.01) x10^3u/L Lymphocytes % 18.3 L (24.0-44.0) % Monocytes % 7.2 (0.0-12.0) % Eosinophils % 0.8 (0.00-5.0) % Basophils % 0.6 (0.0-0.4) % Absolute Granulocytes 3.76 (1.4-6.9) x10^3/uL Basophils # 0.03 (0-0.4) x10^3/uL D-Dimer 1.96 H* (0.0-0.50) mg/L Sodium 142 (135-145) mmol/L Potassium 4.0 (3.5-5.1) mmol/L Chloride 109 H (98-107) mmol/L Carbon Dioxide 21 L (22-30) mmol/L Anion Gap 15.6 H (5-15) MEQ/L BUN 62 H (7-17) mg/dL Creatinine 2.16 H (0.52-1.04) mg/dL Estimated GFR 24.5 ML/MIN Glucose 97 (74-106) mg/dL Calcium 9.1 (8.4-10.2) mg/dL Magnesium 1.6 (1.6-2.3) mg/dL Total Bilirubin 0.80 (0.2-1.3) mg/dL AST 20 (14-36) U/L ALT 10 (0-35) U/L Alkaline Phosphatase 119 (38-126) U/L Troponin I (0.000-0.033) ng/mL Serum Total Protein 7.0 (6.3-8.2) g/dL Albumin 3.7 (3.5-5.0) g/dL Amylase 37 (30-110) U/L Lipase 142 (23-300) U/L 09/28/23 09/28/23 09/29/23 Range/Units 19:52 23:54 04:21 WBC (4.0-10.5) x10^3/uL RBC (4.1-5.4) x10^6/uL Hgb (12.0-16.0) g/dL Hct (35-47) % MCV (78-100) fL MCH (26-32) pg MCHC (32-36) g/dL RDW (11.5-14.0) % Plt Count (150-450) x10^3/uL MPV (7.5-11.0) fL Gran % (36.0-66.0) % Immature Gran % (Auto) (0.00-0.4) % Nucleat RBC Rel Count (0.00-0.1) % Eos # (Auto) (0-0.5) x10^3/uL Immature Gran # (Auto) (0.00-0.03) x10^3u/L Absolute Lymphs (auto) (1.0-4.6) x10^3/uL Absolute Monos (auto) (0.0-1.3) x10^3/uL Absolute Nucleated RBC (0.00-0.01) x10^3u/L Lymphocytes % (24.0-44.0) % Monocytes % (0.0-12.0) % Eosinophils % (0.00-5.0) % Basophils % (0.0-0.4) % Absolute Granulocytes (1.4-6.9) x10^3/uL Basophils # (0-0.4) x10^3/uL D-Dimer (0.0-0.50) mg/L Sodium (135-145) mmol/L Potassium (3.5-5.1) mmol/L Chloride (98-107) mmol/L Carbon Dioxide (22-30) mmol/L Anion Gap (5-15) MEQ/L BUN (7-17) mg/dL Creatinine (0.52-1.04) mg/dL Estimated GFR ML/MIN Glucose (74-106) mg/dL Calcium (8.4-10.2) mg/dL Magnesium (1.6-2.3) mg/dL Total Bilirubin (0.2-1.3) mg/dL AST (14-36) U/L ALT (0-35) U/L Alkaline Phosphatase (38-126) U/L Troponin I < 0.012 < 0.012 < 0.012 (0.000-0.033) ng/mL Serum Total Protein (6.3-8.2) g/dL Albumin (3.5-5.0) g/dL Amylase (30-110) U/L Lipase (23-300) U/L - Radiology Impressions Radiology Exams & Impressions: Radiology Procedures Category Date Time Status CHEST 1 VIEW (PORTABLE) Stat Exams 09/28/23 19:41 Completed CHEST WITHOUT CONTRAST [CT] Stat Exams 09/28/23 21:55 Completed ULTRASOUND BILATERAL LOWER EXTREMITY [VENOUS BILATERAL Exams 09/29/23 01:25 Taken EXTREMITY] [US] Stat Chest x-ray no infiltrate, effusions, or edema. She has a Mediport and AICD in place. (Images personally reviewed) CT chest no acute findings Assessment/Plan (1) Chest pain Current Visit: No Status: Acute Onset Date: ~03/09/18 Qualifiers: Chest pain type: precordial pain Qualified Code(s): R07.2 - Precordial pain Assessment & Plan: 68-year-old woman with a history of CAD with recent IL, CKD, HFrEF, recurrent PE, chronic anemia, chronic back pain, and hypothyroidism, here with chest pain. ## Chest pain serial troponins are negative. EKG only shows a V-paced rhythm. Her chest pain has resolved, but her nausea remains persistent. Given the associated symptoms of the nausea with the dyspnea and chest pain, and similarity to her prior IL symptoms, remains suspicious. Monitor on telemetry Pending transfer to [facility] to see her palliative nurse Dr. Duarte PRN nitroglycerin ## Chronic systolic heart failure EF 40%, with some edema from her last IL, but slowly improving. Discontinue NS from the ER Resume her Lasix once her home medications have been entered in the computer ## CKD stage III patient appears to be at her baseline creatinine of 1.8-2.2. Monitor BMP ## Recurrent PE patient has elevated D-dimer, but she has been on Eliquis at home. She is currently on 3 L oxygen, but this is something that she requires intermittently at home as well. Restart Eliquis once her home medications have been reconciled. ## Chronic anemia patient appears to be at her baseline. ## Postoperative hypothyroidism Resume her home levothyroxine once medications have been reconciled CODE STATUS: Full code Diet: Cardiac Prophylaxis: Will restart Eliquis once her home medications have been reviewed Code(s): R07.9 - CHEST PAIN, UNSPECIFIED Telemedicine Encounter - Telemedicine Encounter Telemedicine Encounter: The entirety of this encounter was performed via Telemedicine"
--- NOTE | 2023-09-29 06:48 | XRAY ---
Indication: Bilateral leg pain. Elevated d-dimer. 2-dimensional sonogram and color Doppler imaging major venous versus left and right leg performed. Comparison: October 14, 2019 No thrombus seen in the examined deep venous vessels left and right leg including greater saphenous vein. Veins demonstrate normal compressibility. Venous waveforms are normal with and without augmentation. Impression: Left and right legs again negative for DVT. Comment: Preliminary report was given.
[2023-09-29 08:06] VITALS: RESP 16
--- NOTE | 2023-09-29 09:47 | PCM.DS ---
Discharge Summary Date of Admission: 09/29/23 04:47 Date of Discharge: 09/29/23 Admitting Physician: DIONE ESPOSITO MD Primary Care Provider: WAQAR CASTRO Allergies Allergies baclofen Allergy (Severe, Verified 09/28/23 18:23) Difficulty Breathing pt states stopped breathing Sulfa (Sulfonamide Antibiotics) [Sulfa(Sulfonamide Antibiotics)] Allergy (Severe, Verified 09/28/23 18:23) Nausea and Vomiting adhesive Allergy (Mild, Verified 09/28/23 18:23) Blisters codeine [Codeine] Allergy (Mild, Verified 09/28/23 18:23) Nausea and Vomiting iron Adverse Reaction (Intermediate, Verified 09/28/23 18:23) Nausea oxycodone [From Percocet] Adverse Reaction (Intermediate, Verified 09/28/23 18:23) Vomiting Hospital Summary - Hospital Course Hospital Course: 68-year-old woman with history of CAD s/p NE 1 month ago, HFrEF (40%), CKD stage III, recurrent PE, hypothyroidism, chronic back pain, and chronic anemia, who presents with nausea and chest pain. Patient was at [facility] 1 month ago with an acute NE, seen by Dr. Duarte. She has been doing fairly well since then, with some posterior mild leg edema that has been slowly improving. However , throughout the day on Friday, she had nausea, eventually progressing to sharp right-sided chest pain, lasting about 1 hour, associated with dyspnea, starting in the afternoon. Not relieved by rest or worsened by exertion, and not associated with numbness or diaphoresis. However, it states that it is similar to her pain when she had her NE. Currently, chest pain and dyspnea resolved shortly after arriving to the ED, but she continues to feel nauseated, and now having some diffuse abdominal pain. She has had no difficulties since her discharge from the NE, and has been compliant with her home medications. Denies orthopnea and PND, and notes that her leg edema, although still present, has bee n slowly improving, and she has been taking her Lasix. Denies any recent fevers, chills, sore throat, cough, or diarrhea. No recent changes to medications. In the ED, they reach out to Dr. Duarte, and initially arranged for transfer to [facility]. However, they were unable to accept her because of the lack of stepdown beds. Patient is currently pending admission at [facility], pending bed availability. Discharge Note Latest Assessment & Plan (1) Chest pain Current Visit: No Status: Acute Onset Date: ~03/09/18 Qualifiers: Chest pain type: precordial pain Qualified Code(s): R07.2 - Precordial pain Assessment & Plan: 68-year-old woman with a history of CAD with recent NE, CKD, HFrEF, recurrent PE, chronic anemia, chronic back pain, and hypothyroidism, here with chest pain. ## Chest pain serial troponins are negative. EKG only shows a V-paced rhythm. Her chest pain has resolved, but her nausea remains persistent. Given the associated symptoms of the nausea with the dyspnea and chest pain, and similarity to her prior NE symptoms, remains suspicious. Monitor on telemetry Pending transfer to [facility] to see her pediatric medical assistant Dr. Duarte PRN nitroglycerin ## Chronic systolic heart failure EF 40%, with some edema from her last NE, but slowly improving. Discontinue NS from the ER Resume her Lasix once her home medications have been entered in the computer ## CKD stage III patient appears to be at her baseline creatinine of 1.8-2.2. Monitor BMP ## Recurrent PE patient has elevated D-dimer, but she has been on Eliquis at home. She is currently on 3 L oxygen, but this is something that she requires intermittently at home as well. Restart Eliquis once her home medications have been reconciled. ## Chronic anemia patient appears to be at her baseline. ## Postoperative hypothyroidism Resume her home levothyroxine once medications have been reconciled CODE STATUS: Full code Diet: Cardiac Prophylaxis: Will restart Eliquis once her home medications have been reviewed I spent 35 minutes [id number] with the patient on the day of discharge performing discharge exam, discussing hospital stay and discharge instructions with patient and caregivers, preparation of discharge records, prescriptions & referral forms and addressing any questions/concerns the patient had as documented above. - Vitals & Intake/Output Vital Signs: Vital Signs Temperature 97.3 F 09/29/23 08:00 Pulse Rate 70 09/29/23 08:00 Respiratory Rate 16 09/29/23 08:00 Blood Pressure 114/59 09/29/23 08:00 O2 Sat by Pulse Oximetry 95 09/29/23 08:00 Intake & Output: Intake & Output 09/26/23 09/27/23 09/28/23 09/29/23 11:59 11:59 11:59 11:59 Intake Total 50 Balance 50 Weight 84.4 kg - Lab Result Diagrams: 09/28/23 19:52 09/28/23 19:52 Lab Results-Last 24 Hrs: Lab Results-Last 24 Hours 09/28/23 09/28/23 09/28/23 Range/Units 19:52 19:52 19:52 WBC 5.2 (4.0-10.5) x10^3/uL RBC 3.34 L (4.1-5.4) x10^6/uL Hgb 8.4 L (12.0-16.0) g/dL Hct 28.5 L (35-47) % MCV 85.3 (78-100) fL MCH 25.1 L (26-32) pg MCHC 29.5 L (32-36) g/dL RDW 21.5 H (11.5-14.0) % Plt Count 251 (150-450) x10^3/uL MPV 9.9 (7.5-11.0) fL Gran % 72.9 H (36.0-66.0) % Immature Gran % (Auto) 0.2 (0.00-0.4) % Nucleat RBC Rel Count 0.0 (0.00-0.1) % Eos # (Auto) 0.04 (0-0.5) x10^3/uL Immature Gran # (Auto) 0.01 (0.00-0.03) x10^3u/L Absolute Lymphs (auto) 0.94 L (1.0-4.6) x10^3/uL Absolute Monos (auto) 0.37 (0.0-1.3) x10^3/uL Absolute Nucleated RBC 0.00 (0.00-0.01) x10^3u/L Lymphocytes % 18.3 L (24.0-44.0) % Monocytes % 7.2 (0.0-12.0) % Eosinophils % 0.8 (0.00-5.0) % Basophils % 0.6 (0.0-0.4) % Absolute Granulocytes 3.76 (1.4-6.9) x10^3/uL Basophils # 0.03 (0-0.4) x10^3/uL D-Dimer 1.96 H* (0.0-0.50) mg/L Sodium 142 (135-145) mmol/L Potassium 4.0 (3.5-5.1) mmol/L Chloride 109 H (98-107) mmol/L Carbon Dioxide 21 L (22-30) mmol/L Anion Gap 15.6 H (5-15) MEQ/L BUN 62 H (7-17) mg/dL Creatinine 2.16 H (0.52-1.04) mg/dL Estimated GFR 24.5 ML/MIN Glucose 97 (74-106) mg/dL Calcium 9.1 (8.4-10.2) mg/dL Magnesium 1.6 (1.6-2.3) mg/dL Total Bilirubin 0.80 (0.2-1.3) mg/dL AST 20 (14-36) U/L ALT 10 (0-35) U/L Alkaline Phosphatase 119 (38-126) U/L Troponin I (0.000-0.033) ng/mL NT-Pro-B Natriuret Pep (<300) pg/mL Serum Total Protein 7.0 (6.3-8.2) g/dL Albumin 3.7 (3.5-5.0) g/dL Amylase 37 (30-110) U/L Lipase 142 (23-300) U/L 09/28/23 09/28/23 09/29/23 Range/Units 19:52 23:54 04:21 WBC (4.0-10.5) x10^3/uL RBC (4.1-5.4) x10^6/uL Hgb (12.0-16.0) g/dL Hct (35-47) % MCV (78-100) fL MCH (26-32) pg MCHC (32-36) g/dL RDW (11.5-14.0) % Plt Count (150-450) x10^3/uL MPV (7.5-11.0) fL Gran % (36.0-66.0) % Immature Gran % (Auto) (0.00-0.4) % Nucleat RBC Rel Count (0.00-0.1) % Eos # (Auto) (0-0.5) x10^3/uL Immature Gran # (Auto) (0.00-0.03) x10^3u/L Absolute Lymphs (auto) (1.0-4.6) x10^3/uL Absolute Monos (auto) (0.0-1.3) x10^3/uL Absolute Nucleated RBC (0.00-0.01) x10^3u/L Lymphocytes % (24.0-44.0) % Monocytes % (0.0-12.0) % Eosinophils % (0.00-5.0) % Basophils % (0.0-0.4) % Absolute Granulocytes (1.4-6.9) x10^3/uL Basophils # (0-0.4) x10^3/uL D-Dimer (0.0-0.50) mg/L Sodium (135-145) mmol/L Potassium (3.5-5.1) mmol/L Chloride (98-107) mmol/L Carbon Dioxide (22-30) mmol/L Anion Gap (5-15) MEQ/L BUN (7-17) mg/dL Creatinine (0.52-1.04) mg/dL Estimated GFR ML/MIN Glucose (74-106) mg/dL Calcium (8.4-10.2) mg/dL Magnesium (1.6-2.3) mg/dL Total Bilirubin (0.2-1.3) mg/dL AST (14-36) U/L ALT (0-35) U/L Alkaline Phosphatase (38-126) U/L Troponin I < 0.012 < 0.012 < 0.012 (0.000-0.033) ng/mL NT-Pro-B Natriuret Pep (<300) pg/mL Serum Total Protein (6.3-8.2) g/dL Albumin (3.5-5.0) g/dL Amylase (30-110) U/L Lipase (23-300) U/L 09/28/ Range/Units 04:21 WBC (4.0-10.5) x10^3/uL RBC (4.1-5.4) x10^6/uL Hgb (12.0-16.0) g/dL Hct (35-47) % MCV (78-100) fL MCH (26-32) pg MCHC (32-36) g/dL RDW (11.5-14.0) % Plt Count (150-450) x10^3/uL MPV (7.5-11.0) fL Gran % (36.0-66.0) % Immature Gran % (Auto) (0.00-0.4) % Nucleat RBC Rel Count (0.00-0.1) % Eos # (Auto) (0-0.5) x10^3/uL Immature Gran # (Auto) (0.00-0.03) x10^3u/L Absolute Lymphs (auto) (1.0-4.6) x10^3/uL Absolute Monos (auto) (0.0-1.3) x10^3/uL Absolute Nucleated RBC (0.00-0.01) x10^3u/L Lymphocytes % (24.0-44.0) % Monocytes % (0.0-12.0) % Eosinophils % (0.00-5.0) % Basophils % (0.0-0.4) % Absolute Granulocytes (1.4-6.9) x10^3/uL Basophils # (0-0.4) x10^3/uL D-Dimer (0.0-0.50) mg/L Sodium (135-145) mmol/L Potassium (3.5-5.1) mmol/L Chloride (98-107) mmol/L Carbon Dioxide (22-30) mmol/L Anion Gap (5-15) MEQ/L BUN (7-17) mg/dL Creatinine (0.52-1.04) mg/dL Estimated GFR ML/MIN Glucose (74-106) mg/dL Calcium (8.4-10.2) mg/dL Magnesium (1.6-2.3) mg/dL Total Bilirubin (0.2-1.3) mg/dL AST (14-36) U/L ALT (0-35) U/L Alkaline Phosphatase (38-126) U/L Troponin I (0.000-0.033) ng/mL NT-Pro-B Natriuret Pep 9860 (<300) pg/mL Serum Total Protein (6.3-8.2) g/dL Albumin (3.5-5.0) g/dL Amylase (30-110) U/L Lipase (23-300) U/L - Radiology Exams Ordered Rad Exams-Entire Visit: Radiology Procedures Category Date Time Status CHEST 1 VIEW (PORTABLE) Stat Exams 09/28/23 19:41 Completed CHEST WITHOUT CONTRAST [CT] Stat Exams 09/28/23 21:55 Completed ULTRASOUND BILATERAL LOWER EXTREMITY [VENOUS BILATERAL Exams 09/29/23 01:25 Completed EXTREMITY] [US] Stat - Procedures and Test Procedures and Tests throughout Hospitalization: Therapy Orders & Screens 09/29/23 04:33 EKG REPEAT IN AM Comment: Discharge Exam General Appearance: no apparent distress Neurologic Exam: alert, oriented x 3, cooperative Ears, Nose, Throat Exam: moist mucous membranes Neck Exam: normal inspection, full range of motion Respiratory Exam: normal breath sounds, lungs clear, other (2L oxygen NC) Cardiovascular Exam: regular rate/rhythm, other (VPaced on ekg) Gastrointestinal/Abdomen Exam: soft, normal bowel sounds Pelvic Exam: deferred Rectal Exam: deferred Back Exam: normal inspection Extremity Exam: other (BLE trace edema) Final Diagnosis/Problem List - Final Discharge Diagnosis/Problem (1) Chest pain Current Visit: No Status: Acute Onset Date: ~03/09/18 Code(s): R07.9 - CHEST PAIN, UNSPECIFIED (2) Elevated d-dimer Current Visit: Yes Status: Acute Code(s): R79.89 - OTHER SPECIFIED ABNORMAL FINDINGS OF BLOOD CHEMISTRY (3) Chronic kidney disease, stage 3 Current Visit: Yes Status: Acute Code(s): N18.30 - CHRONIC KIDNEY DISEASE, STAGE 3 UNSPECIFIED (4) Postoperative hypothyroidism Current Visit: Yes Status: Acute Code(s): E89.0 - POSTPROCEDURAL HYPOTHYROIDISM (5) Chronic anemia Current Visit: Yes Status: Acute Code(s): D64.9 - ANEMIA, UNSPECIFIED (6) CHF (congestive heart failure) Current Visit: No Status: Acute Onset Date: ~03/09/18 Code(s): I50.9 - HEART FAILURE, UNSPECIFIED (7) Pulmonary embolism on long-term anticoagulation therapy Current Visit: No Status: Acute Code(s): I26.99 - OTHER PULMONARY EMBOLISM WITHOUT ACUTE COR PULMONALE; Z79.01 - HALFWAY (CURRENT) USE OF ANTICOAGULANTS (8) DVT, recurrent, lower extremity, chronic Current Visit: No Status: Chronic Code(s): I82.509 - CHRONIC EMBOLISM AND THOMBOS UNSP DEEP VN UNSP LOW EXTRM - Discharge Disposition: DC TO [facility] Condition: Stable Prescriptions: Continue Furosemide [Lasix] 40 mg PO DAILY PRN PRN PRN Reason: swelling Levothyroxine Sodium [Synthroid] 300 mcg PO BID Nitroglycerin 0.4 mg SL Q5MIN PRN MR X 3 PRN PRN Reason: Chest Pain Apixaban [Eliquis] 5 mg PO BID 1 Days Morphine Sulfate [Morphine Sulfate ER] 30 mg PO BID Famotidine 40 mg PO DAILY Metoprolol Succinate 25 mg Xl* [Toprol-Xl 25MG Tablets] 25 mg PO DAILY #30 tab Gabapentin [Neurontin ] 100 mg PO DAILY Follow up with: WAQAR CASTRO [Primary Care Provider] -
[2023-09-29] MEDS ORDERED: Lasix 40 MG PO PRN (09:55)
[2023-09-29] MEDS: Ms Contin 15 MG PO SCH (10:12)
[2023-09-29] MEDS: Pepcid 20 MG PO SCH (10:13)
[2023-09-29] MEDS: Zofran 4 MG/2 ML VIAL IV PRN (10:13)
[2023-09-29] MEDS: SYNTHROID 150 MCG PO SCH (10:13)
[2023-09-29] MEDS: ELIQUIS 2.5 MG TABLET PO SCH (10:13)
[2023-09-29] MEDS: Neurontin PO SCH (10:13)
[2023-09-29] MEDS: Toprol-Xl 25MG Tablets PO SCH (10:13)
[2023-09-29 11:22] VITALS: BP 99/55; TEMP 97.7; O2SAT 89
[2023-09-29 14:10] VITALS: PULSE 79
== END 2023-09-29 15:35 | disposition home or self-care (01) ==
LOC: ED 18:18 → MED SURG 09-29 04:47
PROVIDERS: ADMIT Internal Medicine; ATTEND Internal Medicine
DX: R07.2 Precordial pain (principal); I25.10 Atherosclerotic heart disease of native coronary artery without angina pectoris; I25.2 Old myocardial infarction; N18.30 Chronic kidney disease, stage 3 unspecified; D64.9 Anemia, unspecified; R79.89 Other specified abnormal findings of blood chemistry; E89.0 Postprocedural hypothyroidism; I11.0 Hypertensive heart disease with heart failure; I50.9 Heart failure, unspecified; I82.509 Chronic embolism and thrombosis of unspecified deep veins of unspecified lower extremity; I26.99 Other pulmonary embolism without acute cor pulmonale; Z79.01 Long term (current) use of anticoagulants
CPT/HCPCS: 36000; 36415; 71045; 71250; 80053; 82150; 83690; 83735; 83880; 84484; 85025; 85379; 93005; 93970; 99285; J2405; A9270-GY